=== PATIENT | female | born 1945 | race Caucasian/White ===

== ENCOUNTER 2023-02-14 00:08 | Observation (INO) | payer MEDICARE, OTHER, SELFPAY ==
[2023-02-14] VITALS (87 sets, daily range): BP systolic 119–146; BP diastolic 72–98; PULSE 88–113; RESP 7–37; TEMP 36.4–36.9; O2SAT 20–100; BMI 29.6; BMI 30.3
--- NOTE | 2023-02-14 00:32 | ECG_ITS ---
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
--- NOTE | 2023-02-14 00:33 | CT_ITS ---
The [address] [address] Patient Name: WILBER ELIAS MRN: [id number] date: 1945 Sex: F Assigned Patient Location: ER Current Patient Location: ER Accession/Order Number: [id number] Exam Date: 02/14/2023 01:10 Report Date: 02/14/2023 05:11 At the request of: MANDY STARR Procedure: CT angio chest EXAM: CT angio chest HISTORY: pe r/o . Chest pressure and dyspnea for several days. Pressure has worsened. COMPARISON: None. TECHNIQUE: IV contrast enhanced CTA imaging the chest was performed using 100 mL of Omnipaque 350 intravenous contrast. FINDINGS: There is excellent enhancement of the pulmonary arteries. No acute pulmonary embolism is seen. The heart is mildly enlarged. Coronary arterial calcifications are noted. There is no pericardial effusion. Pulsation artifact degrades ascending aorta. Prominent atherosclerotic calcifications are noted. The thoracic aorta and arch vessels are otherwise unremarkable. No dissection or aneurysm is seen. The thyroid gland appears normal. No thoracic adenopathy is appreciated. Fairly small layering bilateral pleural effusions are noted, right mildly larger than left. Patchy ground-glass opacities are scattered throughout all lobes of both lungs with some underlying interstitial thickening. Right upper pole renal cortical cyst is noted. The upper abdomen is otherwise unremarkable. A mild thoracic dextro scoliosis is noted. No acute osseous abnormality or suspicious bony lesion is seen. CT/CT angio chest IMPRESSION: 1. No acute pulmonary embolism or aortic dissection. 2. Nonspecific multifocal patchy ground-glass opacities with some underlying increased interstitial markings scattered in all lobes of both lungs, nonspecific. These are nonspecific, and can be seen in numerous disease processes, including, but not limited to hypersensitivity pneumonitis, infectious pneumonitis, respiratory bronchiolitis, nonspecific interstitial pneumonia, drug toxicity, pulmonary edema, hemorrhage, and ARDS. Associated small layering bilateral pleural effusions are noted. No other acute findings are seen in the chest. Electronically authenticated by: KODAK REYES Date: 02/14/2023 05:11
[2023-02-14 00:42] LABS: Basophils Absolute Auto 0.1 10^3/uL (0.0-0.1); Eosinophils Absolute Auto 0.6 10^3/uL (0.0-0.7); Eosinophils Percent Auto 6.4 % (0.9-7.0); Hematocrit 39.1 % (36.0-48.0); Hemoglobin 12.5 g/dL (12.0-16.0); Immature Granulocytes Abs Auto 0.02 10^3/uL (0.00-0.03); Immature Granulocytes Pct Auto 0.2 % (0.0-0.5); Lymphocytes Absolute Auto 3.2 10^3/uL (1.2-3.8); Lymphocytes Percent Auto 32.3 % (20.5-60.0); Mean Corpuscular Hemoglobin 28.1 pg (26.7-34.0); Mean Corpuscular Volume 87.9 fL (81.0-99.0); Mean Platelet Volume 10.3 fL (9.5-13.5); Monocytes Absolute Auto 0.7 10^3/uL (0.3-0.8); Neutrophils Absolute Auto 5.2 10^3/uL (1.4-6.5); Neutrophils Percent Auto 53.1 % (43.0-75.0); Platelet Count 197 10^3/uL (150-450); Red Blood Count 4.45 10^6/uL (4.20-5.40); White Blood Count 9.8 10^3/uL (4.0-11.0)
[2023-02-14 00:57] LABS: INR 1.04; Partial Thromboplastin Time 27.9 sec (22.3-36.2)
[2023-02-14 00:58] LABS: Alanine Aminotransferase <6 U/L (14-59); Albumin Globulin Ratio 0.9; Albumin Level 3.4 g/dL (3.4-5.0); Alkaline Phosphatase 120 U/L (46-116); Anion Gap 9.3; Aspartate Amino Transferase 15 U/L (15-37); BUN Creatinine Ratio 19.4; Bilirubin Total 1.2 mg/dL (0.2-1.0); Carbon Dioxide 28.1 mmol/L (21.0-32.0); Chloride 101 mmol/L (98-107); Estimated GFR (African America >60 (>=60); Estimated GFR (Non-African Ame 52 (>=60); Globulin 3.9 g/dL; Glucose 141 mg/dL (74-106); Potassium 3.4 mmol/L (3.5-5.1); Sodium 135 mmol/L (136-145); Total Protein 7.3 g/dL (6.4-8.2); Troponin I High Sensitivity 15.8 pg/mL (4.0-51.3)
[2023-02-14] MEDS: DIPHENHYDRAMINE HCL 50 MG/ML (1ML) VIAL IV (01:06)
[2023-02-14] MEDS: METHYLPREDNISOLONE SOD SUCC PF 125 MG/2 ML VIAL IVP (01:06)
[2023-02-14] MEDS: FUROSEMIDE 40 MG/4 ML VIAL IVP ×3 (02:17→17:10)
--- NOTE | 2023-02-14 02:20 | RESP.RT ---
Pt on 5-6 liter nasal cannula and Sp02 88%, Placed pt on Vapotherm 35L Fi02 50% and Sp02 inreased to 94%.
--- NOTE | 2023-02-14 04:19 | RESP.RT ---
Pt complaining the flow is too much, decreased flow down to 30L
[2023-02-14 05:20] LABS: Troponin I High Sensitivity 16.2 pg/mL (4.0-51.3)
--- NOTE | 2023-02-14 06:17 | ED_ITS ---
HPI - General Adult General Chief complaint: Shortness of Breath/Dyspnea Stated complaint: CHEST PAIN Time Seen by Provider: 02/14/23 00:32 Source: patient Mode of arrival: walk-in Limitations: no limitations History of Present Illness HPI narrative: 77-year-old female emergency department today complaining of shortness of breath. He has had increased shortness of breath over the last few days. Started out as orthopnea and is now progressed to constant shortness of breath. She denies any fever, sweats, chills. She denies any cough. She denies any increased leg swelling. She reports some mild pressure-like chest discomfort over the last forty-eight hours. She denies any history of chronic obstructive pulmonary disease or asthma. She does have a history of congestive heart failure. Related Data Home Medications Medication Instructions Recorded Confirmed allopurinol 100 mg tablet 100 mg PO DAILY 02/14/23 02/14/23 aspirin 81 mg tablet,delayed 81 mg PO DAILY 02/14/23 02/14/23 release carvedilol 25 mg tablet 25 mg PO BID 02/14/23 02/14/23 furosemide 20 mg tablet 20 mg PO BID 02/14/23 02/14/23 insulin detemir U-100 100 unit/mL 28 unit subcut DAILY 02/14/23 02/14/23 subcutaneous solution (Levemir U-100 Insulin) magnesium oxide 400 mg PO BID 02/14/23 02/14/23 rosuvastatin 40 mg tablet 40 mg PO DAILY 02/14/23 02/14/23 semaglutide 1 mg/dose (2 mg/1.5 1 mg subcut QWEEK 02/14/23 02/14/23 mL) subcutaneous pen injector Allergies Allergy/AdvReac Type Severity Reaction Status Date / Time Penicillins Allergy Intermediate Verified 02/14/23 00:26 iv dye Allergy Intermediate Uncoded 02/14/23 00:26 Review of Systems ROS Status of ROS 10 or more systems reviewed and unremarkable except as noted in history and below Exam Narrative Exam Narrative: VITALS: I have reviewed the triage vital signs. GENERAL: Well developed, well appearing adult in no acute distress. NEURO: Alert and oriented. Moves all extremities. Face is symmetric and expressive. EYES: PERRL. No scleral icterus or conjunctival injection. No discharge. HENT: Normocephalic, atraumatic. Hearing is grossly intact. Nares grossly patent and without discharge. Mucous membranes moist. NECK: No JVD. Patient moves neck without restriction. CARDIO: Rhythm regular. Normal rate. No murmur, rub, or gallop. Pulses equal bilaterally in the upper and lower extremity. No lower extremity edema. PULM: Rales at the bases. Mild conversational dyspnea. Mild work of breathing. GI/: Abdomen is soft and non-tender. Normoactive bowel sounds. EXTREMITIES: Symmetric muscle bulk. No joint swelling. No clubbing, cyanosis, or deformity. SKIN: Warm and dry. Normal turgor. No rash or lesions appreciated. PSYCH: Mood, affect, and interaction is appropriate to the setting. Constitutional Vital Signs, click to edit/add: Last Vital Signs Temp 98.4 F 02/14/23 00:20 Pulse 94 H 02/14/23 05:42 Resp 20 02/14/23 05:42 BP 126/79 02/14/23 05:47 Pulse Ox 20 L 02/14/23 05:42 O2 Del Method Vapotherm 02/14/23 05:42 O2 Flow Rate 35 02/14/23 04:19 FiO2 50 02/14/23 04:19 Course Vital Signs Vital signs: Vital Signs Temperature 98.4 F 02/14/23 00:20 Pulse Rate 104 H 02/14/23 00:20 Respiratory Rate 24 02/14/23 00:20 Blood Pressure 138/90 02/14/23 00:20 Pulse Oximetry 91 L 02/14/23 00:20 Oxygen Delivery Method Room Air 02/14/23 00:20 Temperature 98.4 F 02/14/23 00:20 Pulse Rate 94 H 02/14/23 05:42 Respiratory Rate 20 02/14/23 05:42 Blood Pressure 126/79 02/14/23 05:47 Pulse Oximetry 20 L 02/14/23 05:42 Oxygen Delivery Method Vapotherm 02/14/23 05:42 Oxygen Delivery Flow Rate 35 02/14/23 04:19 Fraction of Inspired Oxygen 50 02/14/23 04:19 Medical Decision Making MDM Narrative Medical decision making narrative: 77-year-old female to the emergency department she developed shortness of breath. History and exam suggest congestive heart failure exacerbation. She is hypoxic on room air and placed on nasal cannula, 5 L. She has no baseline oxygen requirement. Given her tachycardia, chest pain, shortness of breath a CT PE study will be ordered. He does have a history of a mild reaction to contrast therefore pretreatment is ordered. Patient agrees with this plan. Laboratory data noted. She does have an elevated BNP. Her troponin is negative ?2. CTA shows pulmonary edema, no other acute findings. Patient did need to be escalated from nasal cannula. She was given Lasix x2. Patient will be admitted to the hospital for further care. Case discussed with the hospitalist. Medical Records Medical records reviewed: Yes I reviewed the patient's medical records Lab Data Lab results reviewed: Yes I reviewed the patient's lab results Labs: Lab Results 02/14/23 02/14/23 Range/Units 00:35 04:55 WBC 9.8 (4.0-11.0) 10^3/uL RBC 4.45 (4.20-5.40) 10^6/uL Hgb 12.5 (12.0-16.0) g/dL Hct 39.1 (36.0-48.0) % MCV 87.9 (81.0-99.0) fL MCH 28.1 (26.7-34.0) pg MCHC 32.0 (29.9-35.2) g/dL RDW 16.0 H (11.0-15.0) % Plt Count 197 (150-450) 10^3/uL MPV 10.3 (9.5-13.5) fL Neut % (Auto) 53.1 (43.0-75.0) % Lymph % (Auto) 32.3 (20.5-60.0) % [place] % (Auto) 7.0 (1.7-12.0) % Eos % (Auto) 6.4 (0.9-7.0) % Baso % (Auto) 1.0 (0.2-2.0) % Neut # (Auto) 5.2 (1.4-6.5) 10^3/uL Lymph # (Auto) 3.2 (1.2-3.8) 10^3/uL [place] # (Auto) 0.7 (0.3-0.8) 10^3/uL Eos # (Auto) 0.6 (0.0-0.7) 10^3/uL Baso # (Auto) 0.1 (0.0-0.1) 10^3/uL Abs Immat Gran (auto) 0.02 (0.00-0.03) 10^3/uL Imm/Tot Granulo (auto) 0.2 (0.0-0.5) % PT 11.0 (9.0-11.6) sec INR 1.04 APTT 27.9 (22.3-36.2) sec Sodium 135 L (136-145) mmol/L Potassium 3.4 L (3.5-5.1) mmol/L Chloride 101 (98-107) mmol/L Carbon Dioxide 28.1 (21.0-32.0) mmol/L Anion Gap 9.3 BUN 20.0 H (7.0-18.0) mg/dL Creatinine 1.03 H (0.55-1.02) mg/dL Est GFR ( Amer) >60 (>=60) Est GFR (Non-Af Amer) 52 L (>=60) BUN/Creatinine Ratio 19.4 Glucose 141 H (74-106) mg/dL Calcium 9.0 (8.5-10.1) mg/dL Total Bilirubin 1.2 H (0.2-1.0) mg/dL AST 15 (15-37) U/L ALT <6 L (14-59) U/L Alkaline Phosphatase 120 H (46-116) U/L Troponin I High Sens 15.8 16.2 (4.0-51.3) pg/mL NT-Pro-B Natriuret Pep 1695.0 (<=1800.0) pg/mL Total Protein 7.3 (6.4-8.2) g/dL Albumin 3.4 (3.4-5.0) g/dL Globulin 3.9 g/dL Albumin/Globulin Ratio 0.9 ECG Data Attestation: I personally reviewed and interpreted this ECG as follows: (Normal sinus rhythm at a rate of ninety-nine. Right bundle branch block. No STEMI. Mildly prolonged QTC. ) Critical Care Time Critical Care Time Critical Care Time: Yes Total Critical Care Time: 35 Attestation: Critical Care Procedure Note Authorized and Performed by: Immanuel Summers DO Total critical care time: 35 min Due to a high probability of clinically significant, life threatening deterioration, the patient required my highest level of preparedness to intervene emergently and I personally spent this critical care time directly and personally managing the patient. This critical care time included obtaining a history; examining the patient; pulse oximetry; ordering and review of studies; arranging urgent treatment with development of a management plan; evaluation of patient's response to treatment; frequent reassessment; and, discussions with other providers. This critical care time was performed to assess and manage the high probability of imminent, life-threatening deterioration that could result in multi-organ failure. It was exclusive of separately billable procedures and treating other patients and teaching time. Please see MDM section and the rest of the note for further information on patient assessment and treatment. Discharge Plan Discharge Chief Complaint: Shortness of Breath/Dyspnea Clinical Impression: Acute exacerbation of CHF (congestive heart failure), Acute hypoxemic respiratory failure Patient Disposition: Admitted As Inpatient Prescriptions / Home Meds: No Action carvedilol 25 mg tablet 25 mg PO BID Rx Instructions: must administer with a meal/food furosemide 20 mg tablet 20 mg PO BID magnesium oxide 400 mg magnesium capsule 400 mg PO BID allopurinol 100 mg tablet 100 mg PO DAILY aspirin 81 mg tablet,delayed release (DR/EC) 81 mg PO DAILY rosuvastatin 40 mg tablet 40 mg PO DAILY Levemir U-100 Insulin 100 unit/mL solution 28 unit subcut DAILY semaglutide 1 mg/dose (2 mg/1.5 mL) pen injector 1 mg subcut QWEEK Rx Instructions: Due Wednesday morning Referrals: Aure Little NP [Primary Care Provider] - 1 week
--- NOTE | 2023-02-14 07:10 | RESP.RT ---
Patient transported to ICU on 5 LPM NC; SpO2 maintained in mid 90's. Vapotherm on standby
[2023-02-14 08:09] LABS: Glucometer 267 mg/dL (74-106)
[2023-02-14] MEDS: CARVEDILOL 25 MG TABLET PO ×2 (08:11→20:38)
[2023-02-14] MEDS: ENOXAPARIN SODIUM 40 MG/0.4 ML SYRINGE SUBQ (08:12)
[2023-02-14] MEDS: ALLOPURINOL 100 MG TABLET PO (08:12)
[2023-02-14] MEDS: POTASSIUM CHLORIDE 10 MEQ ER TABLET 40 MEQ PO (08:12)
[2023-02-14] MEDS: MAGNESIUM OXIDE 400 MG TABLET PO ×2 (08:12→20:38)
[2023-02-14] MEDS: INSULIN ASPART 300 UNIT/3 ML PEN SUBQ ×4 (08:35→20:39)
--- NOTE | 2023-02-14 10:58 | P.HP_ITS ---
H&P: HPI History of Present Illness Chief complaint: chest pain and shortness of breath Narrative: 77 y o f presents with chest tightness x 7 days, along with fatigue and SOB that started yesterday. She was hypoxic in ED and her w/u was c/w volume overload sec to acute on chronic congestive heart failure. Patient was given IV lasix and admitted for observation and further clinical care. She is currently on 2 L O2 via NC. Reports feeling better but still tired. No other complaints to offer. Review of Systems ROS Status of ROS 10 or more systems reviewed and unremarkable except as noted in history and below [facility] Medical History (Updated 02/14/23 @ 11:32 by Shaikh Janelle MD) Acute exacerbation of CHF (congestive heart failure) ?I50.9 - Heart failure, unspecified (ICD-10) HLD (hyperlipidemia) ?E78.5 - Hyperlipidemia, unspecified (ICD-10) Type 2 diabetes mellitus ?E11.9 - Type 2 diabetes mellitus without complications (ICD-10) Surgical History (Updated 02/14/23 @ 07:13 by Brittni Odell RN) H/O: hysterectomy ?Z90.710 - Acquired absence of both cervix and uterus (ICD-10) S/P femoral-femoral bypass surgery ?Z95.828 - Presence of other vascular implants and grafts (ICD-10) Social History (Updated 02/14/23 @ 07:17 by Brittni Odell, MYA) Within the past year, how often did you have a drink containing alcohol: monthly or less Within the past year, how many standard drinks containing alcohol did you have on a typical day: 1 or 2 Within the past year, how often did you have six or more drinks on one occasion: never Total score: 0 Score interpretation: A score less than 3 is consistent with normal alcohol consumption. Smoking status: Former smoker Second hand tobacco smoke exposure: Yes Non-prescribed substance use: denies use Are you now , , , , never or living with a partner: In a typical week, how many times do you talk on the telephone with family, friends, or neighbors: 3 or more times per week How often do you get together with friends or relatives: 3 or more times per week How often do you attend judaism or orthodoxy services: 4 or more times per year Do you belong to any clubs or organizations such as judaism groups unions, fraternal or athletic groups, or school groups: yes Total score: 4 Score interpretation: A score of greater than or equal to 2 indicates the lowest level of social isolation. 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, difficulty making decisions: No Do you think of yourself as: straight/heterosexual Gender Identity: female Meds Home Medications and Allergies Home Medications Medication Instructions Recorded Confirmed Type allopurinol 100 mg tablet 100 mg PO DAILY 02/14/23 02/14/23 History aspirin 81 mg tablet,delayed 81 mg PO BEDTIME 02/14/23 02/14/23 History release carvedilol 25 mg tablet 25 mg PO BID 02/14/23 02/14/23 History furosemide 20 mg tablet 20 mg PO BID 02/14/23 02/14/23 History insulin detemir U-100 100 unit/mL 28 unit subcut BEDTIME 02/14/23 02/14/23 History subcutaneous solution (Levemir U-100 Insulin) magnesium oxide 400 mg PO BID 02/14/23 02/14/23 History rosuvastatin 40 mg tablet 40 mg PO DAILY 02/14/23 02/14/23 History semaglutide 1 mg/dose (2 mg/1.5 1 mg subcut QWEEK 02/14/23 02/14/23 History mL) subcutaneous pen injector Allergies Allergy/AdvReac Type Severity Reaction Status Date / Time Penicillins Allergy Intermediate Verified 02/14/23 00:26 iv dye Allergy Intermediate Uncoded 02/14/23 00:26 Exam Constitutional Vital Signs, click to edit/add: Last Vital Signs Temp 97.6 F 02/14/23 07:07 Pulse 91 H 02/14/23 07:10 Resp 19 02/14/23 07:10 BP 144/78 H 02/14/23 07:07 Pulse Ox 95 02/14/23 09:29 O2 Del Method Nasal Cannula 02/14/23 09:29 O2 Flow Rate 4 02/14/23 09:29 FiO2 50 02/14/23 04:19 Documenting provider has reviewed patient's vital signs: yes Common normals: no apparent distress and oriented x3 General appearance: cooperative Nutritional appearance: obese HENMT Common normals: normocephalic and head/scalp atraumatic Head and scalp: normocephalic and atraumatic Eye Common normals: conjunctivae normal and no scleral icterus Conjunctiva: conjunctiva(e) normal Respiratory Common normals: normal respiratory effort Effort & inspection: able to speak in complete sentences Auscultation: rales bilateral in the lower lung uribe Cardio Common normals: regular rate, S1 normal heart sound and S2 normal heart sound Rate: regular rate Heart sounds: S1 normal and S2 normal GI Common normals: Normal to inspection, nondistended, normoactive bowel sounds present, soft to palpation, non-tender and no hepatosplenomegaly Palpation: soft and no hepatosplenomegaly Extremity Common normals: no clubbing, cyanosis or edema Neuro Common normals: oriented x3, moves all extremities and no focal motor deficits Psych Common normals: mental status grossly normal, denies hallucinations, denies homicidal ideation and denies suicidal ideation Results Labs Labs: Short CBC 02/14/23 Range/Units 00:35 WBC 9.8 (4.0-11.0) 10^3/uL Hgb 12.5 (12.0-16.0) g/dL Hct 39.1 (36.0-48.0) % Plt Count 197 (150-450) 10^3/uL BMP 02/14/23 00:35 Sodium 135 L Potassium 3.4 L Chloride 101 Carbon Dioxide 28.1 BUN 20.0 H Creatinine 1.03 H Glucose 141 H Calcium 9.0 Liver Function 02/14/23 Range/Units 00:35 Total Bilirubin 1.2 H (0.2-1.0) mg/dL AST 15 (15-37) U/L ALT <6 L (14-59) U/L Alkaline Phosphatase 120 H (46-116) U/L Albumin 3.4 (3.4-5.0) g/dL Assessment and Plan Assessment and Plan (1) Acute on chronic systolic (congestive) heart failure: Assessment and Plan: Acute on chronic systolic HF. Last 2D ECHO 10/02 - borderline low EF. On lasix as outpatient. Presented with hypoxia with pulse Ox in 80%. Doing better. Still hypoxic though. C/w IV lasix 40 q12. Monitor weight, strict I/Os. Repeat 2D ECHO. No PE on CTA. (2) Acute hypoxemic respiratory failure: Assessment and Plan: Due to acute on chronic systolic HF. Wean off O2 as tolerated. C/w diuresis (3) Type 2 diabetes mellitus: Assessment and Plan: C/w lantus and SSI. 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 Plan Needs 2D ECHO, IV diuresis, monitoring for hypoxic resp failure.
[2023-02-14 13:00] LABS: Glucometer 244 mg/dL (74-106)
[2023-02-14 17:11] LABS: Glucometer 268 mg/dL (74-106)
[2023-02-14 20:31] LABS: Glucometer 247 mg/dL (74-106)
[2023-02-14] MEDS: INSULIN DETEMIR 300 UNIT/3 ML INSULN.PEN 28 UNIT SUBQ (20:38)
[2023-02-14] MEDS: ASPIRIN 81 MG TABLET.DR PO (20:38)
--- NOTE | 2023-02-14 21:59 | PC.NURSE ---
Table Assembler called into patient's room. Upon entry patient starts yelling at job specification writer in reguards of missing medication. Table Assembler previously stated all medication has to be locked up in medication drawer per policy. Patient states that was never said. Table Assembler tried to apologize but patient wanted nothing to do with that. Table Assembler tried to show patient where the medication was located in her room, but refused to look.
--- NOTE | 2023-02-14 22:40 | PC.NURSE ---
Patient upset that her medications in a med minder were locked up per protocol. She became very upset and demanded her home meds be unlocked and placed in her medication bag. She states that she will not take any medication and will send home with her . She verbalized understanding and states will take responsibility for said medications.
[2023-02-15] VITALS (15 sets, daily range): BP systolic 109–123; BP diastolic 72–75; PULSE 78–102; RESP 18; TEMP 36.4–36.8; O2SAT 91–94
[2023-02-15 05:29] LABS: Basophils Percent Auto 0.1 % (0.2-2.0); Hemoglobin 11.7 g/dL (12.0-16.0); Immature Granulocytes Abs Auto 0.07 10^3/uL (0.00-0.03); Immature Granulocytes Pct Auto 0.5 % (0.0-0.5); Lymphocytes Absolute Auto 2.1 10^3/uL (1.2-3.8); Lymphocytes Percent Auto 13.3 % (20.5-60.0); Mean Corpuscular HGB Conc 32.5 g/dL (29.9-35.2); Mean Corpuscular Hemoglobin 28.7 pg (26.7-34.0); Mean Corpuscular Volume 88.5 fL (81.0-99.0); Mean Platelet Volume 10.5 fL (9.5-13.5); Monocytes Absolute Auto 0.7 10^3/uL (0.3-0.8); Monocytes Percent Auto 4.5 % (1.7-12.0); Neutrophils Absolute Auto 12.6 10^3/uL (1.4-6.5); Neutrophils Percent Auto 81.6 % (43.0-75.0); Platelet Count 187 10^3/uL (150-450); Red Blood Count 4.07 10^6/uL (4.20-5.40); Red Cell Distribution Width 15.9 % (11.0-15.0); White Blood Count 15.4 10^3/uL (4.0-11.0)
[2023-02-15 05:49] LABS: Alanine Aminotransferase 15 U/L (14-59); Albumin Globulin Ratio 0.9; Albumin Level 3.4 g/dL (3.4-5.0); Alkaline Phosphatase 104 U/L (46-116); Anion Gap 10.2; Aspartate Amino Transferase 15 U/L (15-37); BUN Creatinine Ratio 23.7; Calcium 8.7 mg/dL (8.5-10.1); Carbon Dioxide 26.5 mmol/L (21.0-32.0); Chloride 100 mmol/L (98-107); Estimated GFR (African America 56 (>=60); Estimated GFR (Non-African Ame 46 (>=60); Globulin 3.7 g/dL; Glucose 176 mg/dL (74-106); Potassium 3.7 mmol/L (3.5-5.1); Sodium 133 mmol/L (136-145); Total Protein 7.1 g/dL (6.4-8.2)
[2023-02-15] MEDS: FUROSEMIDE 40 MG/4 ML VIAL IVP (06:42)
[2023-02-15 07:21] LABS: SARS-CoV-2 Ag NEGATIVE (NEGATIVE)
[2023-02-15 07:52] LABS: Glucometer 185 mg/dL (74-106)
[2023-02-15] MEDS: INSULIN ASPART 300 UNIT/3 ML PEN SUBQ ×2 (07:55→11:28)
[2023-02-15] MEDS: MAGNESIUM OXIDE 400 MG TABLET PO (08:52)
[2023-02-15] MEDS: ALLOPURINOL 100 MG TABLET PO (08:52)
[2023-02-15] MEDS: CARVEDILOL 25 MG TABLET PO (08:52)
[2023-02-15] MEDS: ENOXAPARIN SODIUM 40 MG/0.4 ML SYRINGE SUBQ (08:52)
--- NOTE | 2023-02-15 09:30 | PC.NURSE ---
0730 Went into room with other nurse to get pts home medications to verify with pharmacy so pt could take her home insulin. Pt was very argumentative saying her meds were taken from her the night before and she is not giving them to us she needs to know where they at aall times and she is going to take her meds like she did with or without our order in. Educated pt that we want to ensure pt safety and to do that we need to make sure the pt is not getting double the medications. Pt also said she isn't going to take any home meds either contradicting her previous saying she would take them. pt did seem to have some confusion at times. Pt reluctantly agreed allowing pharmacy to verify meds ands agreed to them being locked in the med drawer. Pt
--- NOTE | 2023-02-15 10:27 | CA_ITS ---
Patient: WILBER ELIAS Exam Date: 02/15/2023 : 1945 Gender:F Ordering : SHAIKH Dina GIBSON . Admission #: [id number] Family : Order #: [id number] CLICK HERE TO VIEW EXAM ECHOCARDIOGRAM REPORT PROCEDURE: CA ECHO DOPPLER COMPLETE INDICATIONS: Congestive HF COMPARISON: None. DESCRIPTION: COMPLETE ECHOCARDIOGRAM Real-time transthoracic echocardiography with 2D, M-mode, spectral and color flow Doppler performed. QUALITY: Technical quality was good. LEFT VENTRICLE: Moderate dilatation. Borderline left ventricular hypertrophy. Calculated left ventricular ejection fraction is 20%. LV EF: Global left ventricular systolic function is difficult to assess but appears severely reduced; visually estimated ejection fraction is 15 to 20%. Unable to assess regional wall motion abnormality; consider contrast study for better delineation of endocardial borders. DIASTOLIC: Grade 2, moderate diastolic dysfunction. ATRIAL SEPTUM: Inadequately seen. LEFT ATRIUM: Mild dilatation. RIGHT ATRIUM: Normal chamber size. RIGHT VENTRICLE: Normal chamber size. Normal right ventricular systolic function. TRICUSPID VALVE: Normal mobility and thickness. No stenosis with trivial regurgitation. Unable to assess right-sided pressures due to lack of measurable tricuspid regurgitation. MITRAL VALVE: No evidence of mitral valve stenosis. There is no mitral annular calcification. Moderate to severe mitral regurgitation. AORTIC VALVE: Normal trileaflet appearance. No visible sclerosis. Normal leaflet mobility. No evidence of aortic valve stenosis. No aortic regurgitation. AORTIC ROOT: Normal diameter and appearance. PULMONIC VALVE: Not well visualized. No stenosis. No regurgitation. PERICARDIUM: Trivial pericardial effusion. IVC: IVC is dilated (2.3 cm) with no collapse. CONCLUSION: 1. Global left ventricular systolic function is difficult to assess but appears to be reduced; visually estimated ejection fraction is 15 to 20% 2. The right ventricle is normal in size and systolic function 3. Grade 2, moderate diastolic dysfunction 4. The left atrium is mildly dilated 5. Moderate to severe mitral regurgitation 6. Trivial pericardial effusion Adult Echocardiography Procedure Report Left Ventricle LVEDD (3.7 - 5.6 cm): 5.90 cm LVESD (2.2 - 4.0 cm): 4.90 cm LVIVS thickness (0.6 - 1.2 cm): 1.01 cm LVPW thickness (0.5 - 1.0 cm): 1.09 cm e': 0.12 m/s E - e': 11.00 LVOT Max Gradient: 1.77 mm[Hg] LVOT Area (cm2): 0.67 m/s Peak Velocity (LVOT): 0.67 m/s LVOT Diameter 2.09 cm Left Atrium LA Volume Index (2D A2C): 39.89 ml/m2 Left Atrium Systolic Dimension: 4.29 cm Mitral Valve MV E to A Ratio: 1.25 Mitral Valve A-Wave Peak Velocity: 1.08 m/s Mitral Valve E-Wave Peak Velocity: 1.36 m/s Right Ventricle Aorta AO Root Diam: 2.79 cm Ascending Ao Diam: 2.85 cm Aortic Valve AoV Area (Peak [place]t): 2.19 cm2, 2.19 cm2 Peak Velocity(Antegrade Flow): 1.04 m/s Peak Gradient(Antegrade Flow): 4.36 mm[Hg] Tricuspid Valve Pulmonic Valve Peak Velocity: 0.40 m/s Peak Gradient: 0.63 mm[Hg] Right Atrium Right Atrium Systolic Pressure: 30.36 ml, 30.36 ml Dictated by: Trent Arias M.D. on 02/15/2023 at 15:26 Approved by: Trent Arias M.D. on 02/15/2023 at 15:29
--- NOTE | 2023-02-15 10:27 | PM.DS1 ---
DS: Providers Provider Date of admission: 02/14/23 06:50 Primary care physician: Aure Little Attending physician on discharge: Shaikh Janelle Discharging clinician: Shaikh Janelle Anticipated date of discharge: 02/15/23 DS: Diagnosis Discharge Diagnosis (1) Acute on chronic systolic (congestive) heart failure: Assessment and plan: More or less euvolemic. C/w home dose of lasix as outpatient. (2) Acute hypoxemic respiratory failure: Assessment and plan: On RA now. Resp failure sec to acute on chronic systolic HF. (3) Type 2 diabetes mellitus: Assessment and plan: c/w home regimen. Poorly controlled. Defer to PCP. Qualifiers: Diabetes mellitus complication status: without complication Diabetes mellitus technician terminal and repeater insulin use: with penitentiary use Qualified Code(s): E11.9 - Type 2 diabetes mellitus without complications; Z79.4 - detention (current) use of insulin (4) HLD (hyperlipidemia): Assessment and plan: c/w statin Qualifiers: Hyperlipidemia type: mixed hyperlipidemia Qualified Code(s): E78.2 - Mixed hyperlipidemia (5) Hypokalemia: Assessment and plan: Stable now. (6) Leukocytosis: Assessment and plan: suspect reactive due to steroid use. Repeat in one week before f/u with PCP DS: Summary Hospital Course Hospital Course: Patient presented with weakness, fatigue, SOB - found to have acute resp failure with hypoxia sec to acute on chronic systolic HF. Symptoms were present for one week. She was started on IV lasix with improvement in her clinical symptoms. Patient's hypoxia improved and she was comfortable on RA on day of discharge. 2D ECHO ordered to assess cardiac structure that indicated Status at Discharge Functional status at discharge: independent ambulation Overall status at discharge: patient is back to baseline Time Spent with Patient Time attestation: Total time spent providing and/or coordinating discharge services: Time spent: greater than 30 minutes Exam Constitutional Vital Signs, click to edit/add: Last Vital Signs Temp 98.2 F 02/15/23 05:59 Pulse 94 H 02/15/23 10:18 Resp 18 02/15/23 05:59 BP 123/72 02/15/23 06:42 Pulse Ox 91 L 02/15/23 10:16 O2 Del Method Room Air 02/15/23 10:16 O2 Flow Rate 2 02/15/23 10:15 FiO2 50 02/14/23 04:19 Documenting provider has reviewed patient's vital signs: yes Common normals: no apparent distress and oriented x3 General appearance: cooperative Nutritional appearance: obese Respiratory Common normals: normal respiratory effort Effort & inspection: able to speak in complete sentences Auscultation: rales bilateral in the lower lung uribe Cardio Common normals: regular rate, S1 normal heart sound and S2 normal heart sound Rate: regular rate Heart sounds: S1 normal and S2 normal Extremity Common normals: no clubbing, cyanosis or edema Neuro Common normals: oriented x3, moves all extremities and no focal motor deficits Psych Common normals: mental status grossly normal, denies hallucinations, denies homicidal ideation and denies suicidal ideation DS: Data Data Completed and Pending Labs on day of discharge: Labs from last 24 hours 02/15/23 02/15/23 02/15/23 07:51 06:48 05:18 WBC 15.4 H RBC 4.07 L Hgb 11.7 L Hct 36.0 MCV 88.5 MCH 28.7 MCHC 32.5 RDW 15.9 H Plt Count 187 MPV 10.5 Neut % (Auto) 81.6 H Lymph % (Auto) 13.3 L [place] % (Auto) 4.5 Eos % (Auto) 0.0 L Baso % (Auto) 0.1 L Neut # (Auto) 12.6 H Lymph # (Auto) 2.1 [place] # (Auto) 0.7 Eos # (Auto) 0.0 Baso # (Auto) 0.0 Abs Immat Gran (auto) 0.07 H Imm/Tot Granulo (auto) 0.5 Sodium 133 L Potassium 3.7 Chloride 100 Carbon Dioxide 26.5 Anion Gap 10.2 BUN 27.0 H Creatinine 1.14 H Est GFR ( Amer) 56 L Est GFR (Non-Af Amer) 46 L BUN/Creatinine Ratio 23.7 Glucose 176 H Calcium 8.7 Total Bilirubin 1.0 AST 15 ALT 15 Alkaline Phosphatase 104 Total Protein 7.1 Albumin 3.4 Globulin 3.7 Albumin/Globulin Ratio 0.9 SARS-CoV-2 (PCR) Negative POC Glucose 185 H 02/14/23 02/14/23 02/14/23 20:30 17:10 13:59 WBC RBC Hgb Hct MCV MCH MCHC RDW Plt Count MPV Neut % (Auto) Lymph % (Auto) [place] % (Auto) Eos % (Auto) Baso % (Auto) Neut # (Auto) Lymph # (Auto) [place] # (Auto) Eos # (Auto) Baso # (Auto) Abs Immat Gran (auto) Imm/Tot Granulo (auto) Sodium Potassium Chloride Carbon Dioxide Anion Gap BUN Creatinine Est GFR ( Amer) Est GFR (Non-Af Amer) BUN/Creatinine Ratio Glucose Calcium Total Bilirubin AST ALT Alkaline Phosphatase Total Protein Albumin Globulin Albumin/Globulin Ratio SARS-CoV-2 (PCR) POC Glucose 247 H 268 H 244 H Discharge Plan Discharge Disposition: Home, Self-Care Discharge Medications: Continued carvedilol 25 mg tablet 25 mg PO BID Rx Instructions: must administer with a meal/food furosemide 20 mg tablet 20 mg PO BID Patient Comments: TAKING 1 TABLET TWICE DAILY magnesium oxide 400 mg magnesium capsule 400 mg PO BID allopurinol 100 mg tablet 100 mg PO DAILY aspirin 81 mg tablet,delayed release (DR/EC) 81 mg PO BEDTIME rosuvastatin 40 mg tablet 40 mg PO DAILY Levemir U-100 Insulin 100 unit/mL solution 28 unit subcut BEDTIME semaglutide 1 mg/dose (2 mg/1.5 mL) pen injector 1 mg subcut QWEEK Rx Instructions: Due Wednesday morning Activity: resume usual activities as tolerated Diet: advance to your usual diet Forms: Portal Instructions Follow Up Appointments: F/u with PCP in one week. Repeat CBC before f/u with PCP F/u with Cardiology in 2 weeks
[2023-02-15 11:17] LABS: Glucometer 167 mg/dL (74-106)
--- NOTE | 2023-02-15 11:52 | CM.NOTE ---
Rounds made with Dr. Luis. Oxygen weaned and Arleth states improved. Dr. Luis would like the Echocardiogram to be done and likely discharge later today. Arleth verbalizes understanding.
[2023-02-15 15:40] LABS: SARS-CoV-2 NAA NOT DETECTED (NOT DETECTE)
== END 2023-02-15 15:25 | disposition home or self-care (01) ==
LOC: ER 06:56 → ICU 10:59 → MS 02-15 07:50 → ICU 02-15 08:10 → MS 02-15 08:10
PROVIDERS: Admitting Provider Internal Medicine; Emergency Provider Student in an Organized Health Care Education/Training Program; PCP Nurse Practitioner; Visit Provider Internal Medicine
DX: I50.23 Acute on chronic systolic (congestive) heart failure (principal); J96.01 Acute respiratory failure with hypoxia; E11.9 Type 2 diabetes mellitus without complications; E78.2 Mixed hyperlipidemia; E87.6 Hypokalemia; D72.829 Elevated white blood cell count, unspecified; E66.9 Obesity, unspecified; Z68.30 Body mass index [BMI] 30.0-30.9, adult; Z79.82 Long term (current) use of aspirin; Z79.899 Other long term (current) drug therapy; Z79.4 Long term (current) use of insulin; Z90.710 Acquired absence of both cervix and uterus; Z95.828 Presence of other vascular implants and grafts; Z87.891 Personal history of nicotine dependence
CPT/HCPCS: 36415; 71275; 80053; 82948; 83690; 83880; 84484; 85025; 85610; 85730; 87635; 87811; 93005; 93306; 93356; 94761; 94799; 96372; 96374; 96375; 96376; 99285; G0378; J2930; Q9967

== ENCOUNTER 2023-11-17 13:50 | Emergency (ER) | payer MEDICARE, OTHER, SELFPAY ==
[2023-11-17] VITALS (10 sets, daily range): BP systolic 117–146; BP diastolic 71–90; PULSE 84–96; TEMP 36.4; O2SAT 97–100; BMI 24.0
--- NOTE | 2023-11-17 14:22 | CT_ITS ---
The [address] [address] Patient Name: WILBER ELIAS MRN: [id number] date: 1945 Sex: F Assigned Patient Location: ER Current Patient Location: ED.MAIN Accession/Order Number: [id number] Exam Date: 11/17/2023 15:44 Report Date: 11/17/2023 19:00 At the request of: ARJUN NIEVES Procedure: CT abdomen pelvis w con EXAM: CT SCAN ABDOMEN AND PELVIS WITH IV CONTRAST DATE: 11/17/2023 3:44 PM EDT HISTORY: abdominal pain 78-year-old female COMPARISON: None. TECHNIQUE: CT examination of the abdomen and pelvis was performed following the intravenous administration of IV contrast. CT dose lowering techniques were used, to include: automated exposure control, adjustment for patient size, and/or use of iterative reconstruction. Contrast: 100 ml Isovue 370 FINDINGS: Ammonia Refrigeration Technician/ Lines and Tubes: Ammonia Refrigeration Technician demonstrates a nonobstructive bowel gas pattern. Cardiac pacer wires demonstrated. Lower Chest: The heart is enlarged. Free Air: None. Liver: Normal Gallbladder: Removed Common Bile Duct: Prominent Pancreas: Normal Spleen: Normal Adrenal Glands: Right: Normal Left: Normal Kidneys: Right Kidney: Fluid attenuating upper pole cyst measures 15 mm. Right Ureter: Normal. Left Kidney: Normal. Left Ureter: Normal. GI Tract: Distal esophagus in FOV: Decompressed Stomach: Decompressed which limits evaluation Small Bowel: Normal Appendix: No secondary signs of acute appendicitis. Large Bowel: Diverticulosis. No CT evidence for acute diverticulitis.Mild prominence of the rectal wall greater than expected for lack of distention. Mesentery/Peritoneum: Normal Vasculature: Aorta: Vascular calcifications are present. IVC: Normal. Rey Vein: Normal. Retroperitoneum: Normal Abdominal/Pelvic Wall: Bifurcation bypass graft demonstrated. Bladder: Decompressed with a foci of air in the lumen. Reproductive: Normal Musculoskeletal: Normal Free Fluid: None. CT/CT abdomen pelvis w con IMPRESSION: 1. Diverticulosis without CT evidence for acute diverticulitis. 2. Moderate retention of stool in the cecum. 3. Nodular cirrhotic morphology liver. Please correlate with patient's medical history. 4. Cholecystectomy. 5. Right renal and left renal cysts. No further follow-up needed. 6. Severe atherosclerosis. 7. Bifemoral bypass graft, incompletely imaged 8. Mild prominence of the rectal wall greater than expected for lack of distention. Please correlate with patient's colonoscopy to exclude an infiltrative process. Electronically authenticated by: DELLA GREEN Date: 11/17/2023 19:00
[2023-11-17] MEDS: MORPHINE SULFATE 2 MG/ML SYRINGE IM (14:30)
[2023-11-17] MEDS: 0.9 % SODIUM CHLORIDE 1,000 ML 999 ML IV (14:30)
--- NOTE | 2023-11-17 14:30 | ED.GENADUL1 ---
HPI HPI - General Adult General Chief complaint: Abdominal Pain Stated complaint: LEFT SIDE PAIN Time Seen by Provider: 11/17/23 14:13 Source: patient Mode of arrival: walk-in Limitations: no limitations History of Present Illness HPI narrative: Patient presented to the emergency department for evaluation of 1 month of abdominal pain. Patient states that she is having left upper quadrant abdominal pain, left flank pain, left side pain for approximately 1 month. Patient states that nothing make the pain better or worse, it has been constant every day for the last 4 to 5 weeks. Went to her PCP approximately 3 3 weeks and, got 10 days of Cipro and Flagyl. She states she finished the course of it on , and the pain is still there. Patient states nothing makes the pain better or worse. Does not radiate anywhere, is moderate to severe in intensity, constant, burning. Denies urgency, frequency, vaginal bleeding or discharge, hematuria, nausea, vomiting, diarrhea, upper abdominal pain, chest pain. No other complaints at this time Related Data Home Medications ?Medication ?Instructions ?Recorded ?Confirmed allopurinol 100 mg tablet 100 mg PO DAILY 02/14/23 11/17/23 aspirin 81 mg tablet,delayed 81 mg PO BEDTIME 02/14/23 11/17/23 release furosemide 20 mg tablet 20 mg PO DAILY 02/14/23 11/17/23 magnesium oxide 400 mg PO BID 02/14/23 11/17/23 rosuvastatin 40 mg tablet 40 mg PO BEDTIME 02/14/23 11/17/23 semaglutide 1 mg/dose (2 mg/1.5 1 mg subcut QWEEK 02/14/23 11/17/23 mL) subcutaneous pen injector clopidogrel 75 mg tablet 75 mg PO DAILY 11/17/23 11/17/23 empagliflozin 10 mg tablet 10 mg PO DAILY 11/17/23 11/17/23 (Jardiance) metoprolol succinate 25 mg 50 mg PO Q12H 11/17/23 11/17/23 tablet,extended release 24 hr valsartan 40 mg tablet 20 mg PO DAILY 11/17/23 11/17/23 Allergies Allergy/AdvReac Type Severity Reaction Status Date / Time Penicillins Allergy Intermediate Verified 02/14/23 00:26 iv dye Allergy Intermediate Uncoded 02/14/23 00:26 Opioid HPI Opioid Management Most Recent Opioid Data: Last Pain Scale 6 11/17/23 15:06 Last ED Pain Assessment 11/17/23 15:06 Last MAR Pain Assessment 11/17/23 14:30 Review of Systems ROS Narrative Negative unless otherwise stated in the HPI [facility] Medical History (Updated 11/17/23 @ 18:55 by Richard Lyn MD) Leukocytosis ?D72.829 - Elevated white blood cell count, unspecified (ICD-10) HLD (hyperlipidemia) ?E78.5 - Hyperlipidemia, unspecified (ICD-10) Type 2 diabetes mellitus ?E11.9 - Type 2 diabetes mellitus without complications (ICD-10) Acute exacerbation of CHF (congestive heart failure) ?I50.9 - Heart failure, unspecified (ICD-10) Surgical History (Updated 02/14/23 @ 07:13 by Brittni Odell RN) H/O: hysterectomy ?Z90.710 - Acquired absence of both cervix and uterus (ICD-10) S/P femoral-femoral bypass surgery ?Z95.828 - Presence of other vascular implants and grafts (ICD-10) Social History (Updated 02/14/23 @ 07:17 by Brittni Odell RN) Within the past year, how often did you have a drink containing alcohol: monthly or less Within the past year, how many standard drinks containing alcohol did you have on a typical day: 1 or 2 Within the past year, how often did you have six or more drinks on one occasion: never Total score: 0 Score interpretation: A score less than 3 is consistent with normal alcohol consumption. Smoking status: Former smoker Second hand tobacco smoke exposure: Yes Non-prescribed substance use: denies use Are you now , , , , never or living with a partner: In a typical week, how many times do you talk on the telephone with family, friends, or neighbors: 3 or more times per week How often do you get together with friends or relatives: 3 or more times per week How often do you attend congregation or holiness services: 4 or more times per year Do you belong to any clubs or organizations such as congregation groups unions, fraternal or athletic groups, or school groups: yes Total score: 4 Score interpretation: A score of greater than or equal to 2 indicates the lowest level of social isolation. 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 Lungs clear to auscultation without rhonchi, wheezes, rales Cardiac: Regular rate and rhythm, no edema, regular s1/s2, no m/g/r Abdomen: Soft, ND/left quadrant, left upper quadrant, left side pain mid axillary line, no evidence of fluid wave. No pulsatile masses on exam, rebound tenderness, Merino sign or pain over Mcburney's point. Constitutional Vital Signs, click to edit/add: Last Vital Signs Temp 97.6 F 11/17/23 13:54 Pulse 96 H 11/17/23 13:54 Resp 18 11/17/23 13:54 BP 117/71 11/17/23 17:00 Pulse Ox 100 11/17/23 15:28 O2 Del Method Room Air 11/17/23 13:54 Course Vital Signs Vital signs: Vital Signs Temperature 97.6 F 11/17/23 13:54 Pulse Rate 96 H 11/17/23 13:54 Respiratory Rate 18 11/17/23 13:54 Blood Pressure 139/89 11/17/23 13:54 Pulse Oximetry 98 11/17/23 13:54 Oxygen Delivery Method Room Air 11/17/23 13:54 Temperature 97.6 F 11/17/23 13:54 Pulse Rate 96 H 11/17/23 13:54 Respiratory Rate 18 11/17/23 13:54 Blood Pressure 117/71 11/17/23 17:00 Pulse Oximetry 100 11/17/23 15:28 Oxygen Delivery Method Room Air 11/17/23 13:54 Medical Decision Making [facility] Narrative Medical decision making narrative: [facility] Patient with history as above presented with 5 weeks of abdominal pain. History obtained from patient. Patient was nontoxic, stable. Ambulatory. Exam as above. Labs reviewed. Independently reviewed imaging. Reviewed external records. Differential diagnosis considered. Overall presentation is consistent with abdominal pain, unclear etiology. 1855 patient was signed out at normal change of pending CT Medical Records Medical records reviewed: Yes I reviewed the patient's medical records Lab Data Lab results reviewed: Yes I reviewed the patient's lab results Labs: Lab Results 11/17/23 Range/Units 14:10 WBC 11.7 H (4.0-11.0) 10^3/uL RBC 4.62 (4.20-5.40) 10^6/uL Hgb 13.8 (12.0-16.0) g/dL Hct 41.8 (36.0-48.0) % MCV 90.5 (81.0-99.0) fL MCH 29.9 (26.7-34.0) pg MCHC 33.0 (29.9-35.2) g/dL RDW 15.8 H (11.0-15.0) % Plt Count 216 (150-450) 10^3/uL MPV 10.3 (9.5-13.5) fL Neut % (Auto) 61.0 (43.0-75.0) % Lymph % (Auto) 27.2 (20.5-60.0) % [place] % (Auto) 8.0 (1.7-12.0) % Eos % (Auto) 2.6 (0.9-7.0) % Baso % (Auto) 0.9 (0.2-2.0) % Neut # (Auto) 7.1 H (1.4-6.5) 10^3/uL Lymph # (Auto) 3.2 (1.2-3.8) 10^3/uL [place] # (Auto) 0.9 H (0.3-0.8) 10^3/uL Eos # (Auto) 0.3 (0.0-0.7) 10^3/uL Baso # (Auto) 0.1 (0.0-0.1) 10^3/uL Abs Immat Gran (auto) 0.03 (0.00-0.03) 10^3/uL Imm/Tot Granulo (auto) 0.3 (0.0-0.5) % Sodium 138 (136-145) mmol/L Potassium 4.2 (3.5-5.1) mmol/L Chloride 102 (98-107) mmol/L Carbon Dioxide 28.5 (21.0-32.0) mmol/L Anion Gap 11.7 BUN 30.0 H (7.0-18.0) mg/dL Creatinine 1.42 H (0.55-1.02) mg/dL Est GFR ( Amer) 43 L (>=60) Est GFR (Non-Af Amer) 36 L (>=60) BUN/Creatinine Ratio 21.1 Glucose 105 (74-106) mg/dL Calcium 9.1 (8.5-10.1) mg/dL Total Bilirubin 0.8 (0.2-1.0) mg/dL AST 24 (15-37) U/L ALT 22 (14-59) U/L Alkaline Phosphatase 115 (46-116) U/L Total Protein 7.8 (6.4-8.2) g/dL Albumin 4.0 (3.4-5.0) g/dL Globulin 3.8 g/dL Albumin/Globulin Ratio 1.1 Lipase 74.0 (16.0-77.0) U/L Discharge Plan Discharge Chief Complaint: Abdominal Pain Clinical Impression: Abdominal pain Patient Disposition: Still a Patient Prescriptions / Home Meds: No Action clopidogrel 75 mg tablet 75 mg PO DAILY Jardiance 10 mg tablet 10 mg PO DAILY metoprolol succinate 25 mg tablet extended release 24 hr 50 mg PO Q12H valsartan 40 mg tablet 20 mg PO DAILY furosemide 20 mg tablet 20 mg PO DAILY Patient Comments: TAKING 1 TABLET TWICE DAILY magnesium oxide 400 mg magnesium capsule 400 mg PO BID allopurinol 100 mg tablet 100 mg PO DAILY aspirin 81 mg tablet,delayed release (DR/EC) 81 mg PO BEDTIME rosuvastatin 40 mg tablet 40 mg PO BEDTIME semaglutide 1 mg/dose (2 mg/1.5 mL) pen injector 1 mg subcut QWEEK Rx Instructions: Due Wednesday morning Print Language: Chinese Referrals: Aure Little QUITLINE COUNSELOR [Primary Care Provider] - 1 week
[2023-11-17 14:31] LABS: Basophils Absolute Auto 0.1 10^3/uL (0.0-0.1); Basophils Percent Auto 0.9 % (0.2-2.0); Eosinophils Absolute Auto 0.3 10^3/uL (0.0-0.7); Eosinophils Percent Auto 2.6 % (0.9-7.0); Hematocrit 41.8 % (36.0-48.0); Hemoglobin 13.8 g/dL (12.0-16.0); Immature Granulocytes Abs Auto 0.03 10^3/uL (0.00-0.03); Immature Granulocytes Pct Auto 0.3 % (0.0-0.5); Lymphocytes Absolute Auto 3.2 10^3/uL (1.2-3.8); Lymphocytes Percent Auto 27.2 % (20.5-60.0); Mean Corpuscular Hemoglobin 29.9 pg (26.7-34.0); Mean Corpuscular Volume 90.5 fL (81.0-99.0); Mean Platelet Volume 10.3 fL (9.5-13.5); Monocytes Absolute Auto 0.9 10^3/uL (0.3-0.8); Neutrophils Absolute Auto 7.1 10^3/uL (1.4-6.5); Platelet Count 216 10^3/uL (150-450); Red Blood Count 4.62 10^6/uL (4.20-5.40); Red Cell Distribution Width 15.8 % (11.0-15.0); White Blood Count 11.7 10^3/uL (4.0-11.0)
[2023-11-17 14:45] LABS: Alanine Aminotransferase 22 U/L (14-59); Albumin Globulin Ratio 1.1; Alkaline Phosphatase 115 U/L (46-116); Anion Gap 11.7; Aspartate Amino Transferase 24 U/L (15-37); BUN Creatinine Ratio 21.1; Bilirubin Total 0.8 mg/dL (0.2-1.0); Calcium 9.1 mg/dL (8.5-10.1); Carbon Dioxide 28.5 mmol/L (21.0-32.0); Chloride 102 mmol/L (98-107); Estimated GFR (African America 43 (>=60); Estimated GFR (Non-African Ame 36 (>=60); Globulin 3.8 g/dL; Glucose 105 mg/dL (74-106); Potassium 4.2 mmol/L (3.5-5.1); Sodium 138 mmol/L (136-145); Total Protein 7.8 g/dL (6.4-8.2)
[2023-11-17] MEDS: METHYLPREDNISOLONE SOD SUCC PF 125 MG/2 ML VIAL IVP (14:47)
[2023-11-17] MEDS: DIPHENHYDRAMINE HCL 50 MG/ML VIAL IV (14:47)
--- NOTE | 2023-11-17 19:21 | ED_ITS ---
HPI - Abdominal Pain General Chief Complaint: Abdominal Pain Stated Complaint: LEFT SIDE PAIN Time Seen by Provider: 11/17/23 14:13 Source: patient Mode of arrival: walk-in Limitations: no limitations History of Present Illness HPI narrative: This 78-year female with a history of diverticulitis was signed out to me at shift change pending CT scan of the abdomen and pelvis. Patient was seen and evaluated. She states she has been having left upper quadrant pain which is burning in nature and when it occurs radiates throughout her whole entire abdomen for the past month. She has also had diarrhea for the past month. She has not had any fever. She denies any blood in her stool. She had a colonoscopy approximately [address] Morrow. She was on a 10-day course of antibiotics for presumptive diverticulitis. Due to the fact that her pain had not resolved she was referred to the emergency department for a CT scan and further evaluation. I reviewed the patient's labs. She has a normal white count and hemoglobin. Creatinine is mildly elevated. Lipase and LFTs are normal. CT scan of the abdomen pelvis which is included in the body of this report does not show any acute findings consistent with diverticulitis but does show some thickening in the rectum. The patient denies that she is having any rectal pain or pain in her lower pelvis. I did discuss with her that there is some abnormal findings on the CT scan and she should follow-up closely for a repeat colonoscopy. In the meantime she is anxious to be relieved of her pain. We discussed options and decided I would give her a short course of Terry with Zofran to prevent nausea and vomiting. Bentyl for cramping and Protonix for possibility of this being more of a stomach issue than a colon issue. The CT scan also did show some degree of constipation but the patient states this is the first day she has not had copious diarrhea so she is reluctant to take any stool softeners. She was given a dose of Bentyl prior to discharge. She was encouraged to have a mild diet over the course of the next week or so to see if the medications and a change in her diet can cool her stomach discomfort. Related Data Home Medications ?Medication ?Instructions ?Recorded ?Confirmed allopurinol 100 mg tablet 100 mg PO DAILY 02/14/23 11/17/23 aspirin 81 mg tablet,delayed 81 mg PO BEDTIME 02/14/23 11/17/23 release furosemide 20 mg tablet 20 mg PO DAILY 02/14/23 11/17/23 magnesium oxide 400 mg PO BID 02/14/23 11/17/23 rosuvastatin 40 mg tablet 40 mg PO BEDTIME 02/14/23 11/17/23 semaglutide 1 mg/dose (2 mg/1.5 1 mg subcut QWEEK 02/14/23 11/17/23 mL) subcutaneous pen injector clopidogrel 75 mg tablet 75 mg PO DAILY 11/17/23 11/17/23 empagliflozin 10 mg tablet 10 mg PO DAILY 11/17/23 11/17/23 (Jardiance) metoprolol succinate 25 mg 50 mg PO Q12H 11/17/23 11/17/23 tablet,extended release 24 hr valsartan 40 mg tablet 20 mg PO DAILY 11/17/23 11/17/23 Allergies Allergy/AdvReac Type Severity Reaction Status Date / Time Penicillins Allergy Intermediate Verified 02/14/23 00:26 iv dye Allergy Intermediate Uncoded 02/14/23 00:26 [facility] Medical History (Updated 11/17/23 @ 18:55 by Arjun Lyn MD) Leukocytosis ?D72.829 - Elevated white blood cell count, unspecified (ICD-10) HLD (hyperlipidemia) ?E78.5 - Hyperlipidemia, unspecified (ICD-10) Type 2 diabetes mellitus ?E11.9 - Type 2 diabetes mellitus without complications (ICD-10) Acute exacerbation of CHF (congestive heart failure) ?I50.9 - Heart failure, unspecified (ICD-10) Surgical History (Updated 02/14/23 @ 07:13 by Brittni Odell RN) H/O: hysterectomy ?Z90.710 - Acquired absence of both cervix and uterus (ICD-10) S/P femoral-femoral bypass surgery ?Z95.828 - Presence of other vascular implants and grafts (ICD-10) Social History (Updated 02/14/23 @ 07:17 by Brittni Odell RN) Within the past year, how often did you have a drink containing alcohol: monthly or less Within the past year, how many standard drinks containing alcohol did you have on a typical day: 1 or 2 Within the past year, how often did you have six or more drinks on one occasion: never Total score: 0 Score interpretation: A score less than 3 is consistent with normal alcohol consumption. Smoking status: Former smoker Second hand tobacco smoke exposure: Yes Non-prescribed substance use: denies use Are you now , , , , never or living with a partner: In a typical week, how many times do you talk on the telephone with family, friends, or neighbors: 3 or more times per week How often do you get together with friends or relatives: 3 or more times per week How often do you attend quaker or religion services: 4 or more times per year Do you belong to any clubs or organizations such as quaker groups unions, [employer] or athletic groups, or school groups: yes Total score: 4 Score interpretation: A score of greater than or equal to 2 indicates the lowest level of social isolation. Little interest or pleasure in doing things: not at all Feeling down, depressed, or hopeless: not at all Feel stressed/tense/nervous/anxious/difficulty sleeping: only a little Life stressors: other Life stressor details: [employer] Due to disability, difficulty making decisions: No Do you think of yourself as: straight/heterosexual Gender Identity: female Exam Constitutional Vital Signs, click to edit/add: Last Vital Signs Temp 97.6 F 11/17/23 13:54 Pulse 84 11/17/23 19:08 Resp 18 11/17/23 19:08 BP 132/80 11/17/23 19:08 Pulse Ox 97 11/17/23 19:08 O2 Del Method Room Air 11/17/23 13:54 Course Vital Signs Vital signs: Vital Signs Temperature 97.6 F 11/17/23 13:54 Pulse Rate 96 H 11/17/23 13:54 Respiratory Rate 18 11/17/23 13:54 Blood Pressure 139/89 11/17/23 13:54 Pulse Oximetry 98 11/17/23 13:54 Oxygen Delivery Method Room Air 11/17/23 13:54 Temperature 97.6 F 11/17/23 13:54 Pulse Rate 84 11/17/23 19:08 Respiratory Rate 18 11/17/23 19:08 Blood Pressure 132/80 11/17/23 19:08 Pulse Oximetry 97 11/17/23 19:08 Oxygen Delivery Method Room Air 11/17/23 13:54 MDM - Abdominal Pain MDM Narrative Medical decision making narrative: The [address] [address] [address] Scan Report Signed Patient: WILBER ELIAS MR#: [id number] : 1945 Acct:[id number] Age/Sex: 78 / F ADM Date: 11/17/23 Loc: ER Attending Dr: Ordering Physician: Arjun Lyn M.D. Date of Service: 11/17/23 Procedure(s): CT abdomen pelvis w con Accession Number(s): [id number] cc: Aure Little WELLNESS COORDINATOR~ The [address] [address] Patient Name: WILBER ELIAS MRN: [id number] date: 1945 Sex: F Assigned Patient Location: ER Current Patient Location: ED.MAIN Accession/Order Number: [id number] Exam Date: 11/17/2023 15:44 Report Date: 11/17/2023 19:00 At the request of: ARJUN LYN Procedure: CT abdomen pelvis w con EXAM: CT SCAN ABDOMEN AND PELVIS WITH IV CONTRAST DATE: 11/17/2023 3:44 PM EDT HISTORY: abdominal pain 78-year-old female COMPARISON: None. TECHNIQUE: CT examination of the abdomen and pelvis was performed following the intravenous administration of IV contrast. CT dose lowering techniques were used, to include: automated exposure control, adjustment for patient size, and/or use of iterative reconstruction. Contrast: 100 ml Isovue 370 FINDINGS: Magnetic Tape Composer Operator/ Lines and Tubes: Magnetic Tape Composer Operator demonstrates a nonobstructive bowel gas pattern. Cardiac pacer wires demonstrated. Lower Chest: The heart is enlarged. Free Air: None. Liver: Normal Gallbladder: Removed Common Bile Duct: Prominent Pancreas: Normal Spleen: Normal Adrenal Glands: Right: Normal Left: Normal Kidneys: Right Kidney: Fluid attenuating upper pole cyst measures 15 mm. Right Ureter: Normal. Left Kidney: Normal. Left Ureter: Normal. GI Tract: Distal esophagus in FOV: Decompressed Stomach: Decompressed which limits evaluation Small Bowel: Normal Appendix: No secondary signs of acute appendicitis. Large Bowel: Diverticulosis. No CT evidence for acute diverticulitis.Mild prominence of the rectal wall greater than expected for lack of distention. Mesentery/Peritoneum: Normal Vasculature: Aorta: Vascular calcifications are present. IVC: Normal. Rey Vein: Normal. Retroperitoneum: Normal Abdominal/Pelvic Wall: Bifurcation bypass graft demonstrated. Bladder: Decompressed with a foci of air in the lumen. Reproductive: Normal Musculoskeletal: Normal Free Fluid: None. CT/CT abdomen pelvis w con IMPRESSION: 1. Diverticulosis without CT evidence for acute diverticulitis. 2. Moderate retention of stool in the cecum. 3. Nodular cirrhotic morphology liver. Please correlate with patient's medical history. 4. Cholecystectomy. 5. Right renal and left renal cysts. No further follow-up needed. 6. Severe atherosclerosis. 7. Bifemoral bypass graft, incompletely imaged 8. Mild prominence of the rectal wall greater than expected for lack of distention. Please correlate with patient's colonoscopy to exclude an infiltrative process. Electronically authenticated by: DELLA GREEN Date: 11/17/2023 19:00 Lab Data Labs: Lab Results 11/17/23 Range/Units 14:10 WBC 11.7 H (4.0-11.0) 10^3/uL RBC 4.62 (4.20-5.40) 10^6/uL Hgb 13.8 (12.0-16.0) g/dL Hct 41.8 (36.0-48.0) % MCV 90.5 (81.0-99.0) fL MCH 29.9 (26.7-34.0) pg MCHC 33.0 (29.9-35.2) g/dL RDW 15.8 H (11.0-15.0) % Plt Count 216 (150-450) 10^3/uL MPV 10.3 (9.5-13.5) fL Neut % (Auto) 61.0 (43.0-75.0) % Lymph % (Auto) 27.2 (20.5-60.0) % [place] % (Auto) 8.0 (1.7-12.0) % Eos % (Auto) 2.6 (0.9-7.0) % Baso % (Auto) 0.9 (0.2-2.0) % Neut # (Auto) 7.1 H (1.4-6.5) 10^3/uL Lymph # (Auto) 3.2 (1.2-3.8) 10^3/uL [place] # (Auto) 0.9 H (0.3-0.8) 10^3/uL Eos # (Auto) 0.3 (0.0-0.7) 10^3/uL Baso # (Auto) 0.1 (0.0-0.1) 10^3/uL Abs Immat Gran (auto) 0.03 (0.00-0.03) 10^3/uL Imm/Tot Granulo (auto) 0.3 (0.0-0.5) % Sodium 138 (136-145) mmol/L Potassium 4.2 (3.5-5.1) mmol/L Chloride 102 (98-107) mmol/L Carbon Dioxide 28.5 (21.0-32.0) mmol/L Anion Gap 11.7 BUN 30.0 H (7.0-18.0) mg/dL Creatinine 1.42 H (0.55-1.02) mg/dL Est GFR ( Amer) 43 L (>=60) Est GFR (Non-Af Amer) 36 L (>=60) BUN/Creatinine Ratio 21.1 Glucose 105 (74-106) mg/dL Calcium 9.1 (8.5-10.1) mg/dL Total Bilirubin 0.8 (0.2-1.0) mg/dL AST 24 (15-37) U/L ALT 22 (14-59) U/L Alkaline Phosphatase 115 (46-116) U/L Total Protein 7.8 (6.4-8.2) g/dL Albumin 4.0 (3.4-5.0) g/dL Globulin 3.8 g/dL Albumin/Globulin Ratio 1.1 Lipase 74.0 (16.0-77.0) U/L Discharge Plan Discharge Stand Alone Forms: Portal Instructions Chief Complaint: Abdominal Pain Clinical Impression: Abdominal pain Patient Disposition: Home, Self-Care Time of Disposition Decision: 19:23 Condition: Good Prescriptions / Home Meds: No Action clopidogrel 75 mg tablet 75 mg PO DAILY Jardiance 10 mg tablet 10 mg PO DAILY metoprolol succinate 25 mg tablet extended release 24 hr 50 mg PO Q12H valsartan 40 mg tablet 20 mg PO DAILY furosemide 20 mg tablet 20 mg PO DAILY Patient Comments: TAKING 1 TABLET TWICE DAILY magnesium oxide 400 mg magnesium capsule 400 mg PO BID allopurinol 100 mg tablet 100 mg PO DAILY aspirin 81 mg tablet,delayed release (DR/EC) 81 mg PO BEDTIME rosuvastatin 40 mg tablet 40 mg PO BEDTIME semaglutide 1 mg/dose (2 mg/1.5 mL) pen injector 1 mg subcut QWEEK Rx Instructions: Due Wednesday morning Print Language: Serbian Instructions: Abdominal Pain (ED) Referrals: Aure Little NP [Primary Care Provider] - 1 week Davin Morrow MD [Physician] - As soon as possible
[2023-11-17] MEDS: ONDANSETRON 4 MG RAPDIS TABLET SL (19:32)
[2023-11-17] MEDS: HYDROCODONE/ACET 5-325 MG TABLET 0.5 TAB PO (19:33)
[2023-11-17] MEDS: DICYCLOMINE HCL 10 MG CAPSULE 20 MG PO (19:33)
== END 2023-11-17 19:51 | disposition home or self-care (01) ==
PROVIDERS: Emergency Provider Emergency Medicine; PCP Nurse Practitioner
DX: R10.9 Unspecified abdominal pain (principal); Z87.891 Personal history of nicotine dependence
CPT/HCPCS: 36415; 74177; 80053; 83690; 85025; 96361; 96372; 96374; 96375; 99285; J1200; J2270; J2919; Q0162; Q9967

== ENCOUNTER 2023-11-29 12:35 | Outpatient (OUT) | payer MEDICARE, OTHER, SELFPAY ==
--- OUTSIDE RECORDS SUMMARY | 2023-11-29 13:00 | XMS_ITS | CCD ---
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 Name Role Phone PHYSICIAN, DEFAULT Unavailable Unavailable PHYSICIAN, DEFAULT Unavailable Unavailable AICHHOLZ, PHARM TECH AURE Admitting Unavailable AICHHOLZ, PHARM TECH AURE Attending Unavailable AICHHOLZ, PHARM TECH AURE Primary Care Unavailable AICHHOLZ, PHARM TECH AURE Consulting Unavailable AICHHOLZ, PHARM TECH AURE Admitting Unavailable AICHHOLZ, PHARM TECH AURE Attending Unavailable AICHHOLZ, PHARM TECH AURE Primary Care Unavailable AICHHOLZ, PHARM TECH AURE Consulting Unavailable AICHHOLZ, PHARM TECH AURE Admitting Unavailable AICHHOLZ, PHARM TECH AURE Attending Unavailable AICHHOLZ, PHARM TECH AURE Primary Care Unavailable AICHHOLZ, PHARM TECH AURE Consulting Unavailable Aichholz PHARM TECH, Aure Joann Primary Care Provider Aichholz GUALBERTO, Aure Joann Primary Care Provider Aichholz GUALBERTO, Aure Joann Primary Care Provider Aichholz GUALBERTO, Aure Joann Primary Care Provider AICMOE AURE JOANN Primary Care Unavailable GEOVANNY CHÁVEZ Admitting Unavailable PARAS RAMIREZ Attending Unavailable AICHHOLHoney, AURE J. Primary Care Unavailable Aichholz DOG LICENSE OFFICER SUPERVISOR-GUALBERTO, Aure J Primary Care Provider Arturo Craft MD Primary Care Provider Aichholhoney CUT OUT MARKER, Aure Unavailable MAHSA MARLEY Attending Unavailable MAHSA MARLEY Admitting Unavailable AICHHOLHoney, AURE JOANN Primary Care Unavailable AICHHOLHoney, AURE JOANN Primary Care Unavailable AFSHAN REDMAN Attending Unava ilable AFSHAN REDMAN Admitting Unava ilable Aichholz GUALBERTO, Aure Joann Primary Care Provider [phone] AICHHOLZ, AURE JOANN Primary Care Unavailable KAKA, YAQUTA Referring Unavailable AICHHOLZ, AURE JOANN Primary Care Unavailable AICHHOLZ, AURE JOANN Primary Care Unavailable MIKEL BARAHONA Referring Unavailable AICHHOLZ, AURE JOANN Primary Care Unavailable AICHHOLZ, AURE JOANN Referring Unavailable AFSHAN REDMAN Attending Unava ilable AICHHOLZ, AURE JOANN Primary Care Unavailable KAKA, YAQUTA Referring Unavailable NATY AFSHAN DENG Attending Unava ilable AICHHOLZ, AURE JOANN Primary Care Unavailable AICHHOLZ, AURE JOANN Primary Care Unavailable MYESHA CEHNG Attending Unavailable AICHHOLZ, AURE JOANN Primary Care Unavailable MIKEL BARAHONA Referring Unavailable AICHHOLZ, AURE JOANN Primary Care Unavailable MIKEL BARAHONA Attending Unavailable AICHHOLZ, AURE JOANN Primary Care Unavailable AICHHOLZ, AURE JOANN Referring Unavailable KAKA, YAQUTA Attending Unavailable AICHHOLZ, AURE JOANN Primary Care Unavailable MYESHA CHENG Referring Unavailable ARPITA PARIS Attending Unavailabl e AICHHOLZ, AURE JOANN Primary Care Unavailable MAURA LGASER Referring Unavailable AICHHOLZ, AURE JOANN Primary Care Unavailable CHALO PRITCHARD Referring Unavailable AICHHOLZ, AURE JOANN Primary Care Unavailable SHAIKH GIBSON Referring Unavailable DWIGHT ROSS Attending Unavailable AICHHOLZ, AURE JOANN Primary Care Unavailable AICHHOLZ, AURE JOANN Primary Care Unavailable MYLENE HINOJOSA Attending Unavailable TOYAHHOLZ, AURE JOANN Primary Care Unavailable MYLENE HINOJOSA Referring Unavailable MAURA GLASER Attending Unavailable AICHHOLZ, AURE JOANN Primary Care Unavailable MAURA GLASER R Referring Unavailable AICHHOLZ, AURE JOANN Primary Care Unavailable AICHHOLZ, AURE JOANN Primary Care Unavailable CHAOL PRITCHARD Attending Unavailable AICHHOLZ, AURE JOANN Primary Care Unavailable KAKA, YAQUTA Referring Unavailable AICHHOLZ, AURE JOANN Primary Care Unavailable KAKA, YAQUTA Referring Unavailable AICHHOLZ, AURE JOANN Primary Care Unavailable MIKEL BARAHONA Attending Unavailable AICHHOLZ, AURE JOANN Primary Care Unavailable AICHHOLZ, AURE JOANN Referring Unavailable KAKA, YAQUTA Attending Unavailable AICHHOLZ, AURE JOANN Primary Care Unavailable KAKA, YAQUTA Referring Unavailable AICHHOLZ, AURE JOANN Primary Care Unavailable MIKEL BARAHONA Attending Unavailable AICHHOLZ, AURE JOANN Primary Care Unavailable AICHHOLZ, AURE JOANN Primary Care Unavailable CHALO PRITCHARD Attending Unavailable AICHHOLZ, AURE JOANN Primary Care Unavailable MIKEL BARAHONA Referring Unavailable AICHHOLZ, AURE JOANN Primary Care Unavailable MIKEL BARAHONA Referring Unavailable AICHHOLZ, AURE JOANN Primary Care Unavailable KAKA, YAQUTA Attending Unavailable AICHHOLZ, AURE JOANN Primary Care Unavailable AICHHOLZ, AURE JOANN Referring Unavailable KAKA, YAQUTA Attending Unavailable AICHHOLZ, AURE JOANN Primary Care Unavailable CHARMAINE BARTH Attending Unavailable AICHHOLZ, AURE JOANN Primary Care Unavailable CHALO PRITCHARD Attending Unavailable AICHHOLZ, AURE J Referring Unavailable AICHHOLZ, AURE J Primary Care Unavailable AICHHOLZ, AURE J Referring Unavailable AICHHOLZ, AURE J Primary Care Unavailable AICHHOLZ, AURE J Referring Unavailable AICHHOLZ, AURE J Primary Care Unavailable AICHHOLZ, AURE J Referring Unavailable AICHHOLZ, AURE J Primary Care Unavailable AICHHOLZ, AURE J Referring Unavailable AICHHOLZ, AURE J Primary Care Unavailable AICHHOLZ, AURE J Referring Unavailable AICHHOLZ, AURE J Primary Care Unavailable AICHHOLZ, AURE J Referring Unavailable AICHHOLZ, AURE J Primary Care Unavailable AICHHOLZ, AURE J Referring Unavailable AICHHOLZ, AURE J Primary Care Unavailable AICHHOLZ, AURE J Referring Unavailable AICHHOLZ, AURE J Primary Care Unavailable AICHHOLZ, AURE J Referring Unavailable AICHHOLZ, AURE J Primary Care Unavailable AICHHOLZ, AURE J Referring Unavailable AICHHOLZ, AURE J Primary Care Unavailable AICHHOLZ, AURE J Referring Unavailable AICHHOLZ, AURE J Primary Care Unavailable AICHHOLZ, AURE J Referring Unavailable AICHHOLZ, AURE J Primary Care Unavailable AICHHOLZ, AURE J Referring Unavailable AICHHOLZ, AURE J Primary Care Unavailable AICHHOLZ, AURE J Referring Unavailable AICHHOLZ, AURE J Primary Care Unavailable AICHHOLZ, AURE J Referring Unavailable AICHHOLZ, AURE J Primary Care Unavailable AICHHOLZ, AURE J Referring Unavailable AICHHOLZ, AURE J Primary Care Unavailable AICHHOLZ, AURE J Referring Unavailable AICHHOLZ, AURE J Primary Care Unavailable AICHHOLZ, AURE J Referring Unavailable AICHHOLZ, AURE J Primary Care Unavailable AICHHOLZ, AURE J Referring Unavailable AICHHOLZ, AURE J Primary Care Unavailable AICHHOLZ, AURE J Referring Unavailable AICHHOLZ, AURE J Primary Care Unavailable AICHHOLZ, AURE J Referring Unavailable AICHHOLZ, AURE J Primary Care Unavailable AICHHOLZ, AURE J Referring Unavailable AICHHOLZ, AURE J Primary Care Unavailable AICHHOLZ, AURE J Referring Unavailable AICHHOLZ, AURE J Primary Care Unavailable AICHHOLZ, AURE J Referring Unavailable AICHHOLZ, AURE J Primary Care Unavailable AICHHOLZ, AURE J Referring Unavailable AICHHOLZ, AURE J Primary Care Unavailable AICHHOLZ, AURE J Referring Unavailable AICHHOLZ, AURE J Primary Care Unavailable AICHHOLZ, AURE J Referring Unavailable AICHHOLZ, AURE J Primary Care Unavailable AICHHOLZ, AURE J Referring Unavailable AICHHOLZ, AURE J Primary Care Unavailable AICHHOLZ, AURE J Referring Unavailable AICHHOLZ, AURE J Primary Care Unavailable AICHHOLZ, AURE J Referring Unavailable AICHHOLZ, AURE J Primary Care Unavailable AICHHOLZ, AURE J Referring Unavailable AICHHOLZ, AURE J Primary Care Unavailable AICHHOLZ, AURE J Referring Unavailable AICHHOLZ, AURE J Primary Care Unavailable AICHHOLZ, AURE J Referring Unavailable AICHHOLZ, AURE J Primary Care Unavailable AICHHOLZ, AURE J Referring Unavailable AICHHOLZ, AURE J Primary Care Unavailable AICHHOLZ, AURE J Referring Unavailable AICHHOLZ, AURE J Primary Care Unavailable AICHHOLZ, AURE J Referring Unavailable AICHHOLZ, AURE J Primary Care Unavailable AICHHOLZ, AURE J Referring Unavailable AICHHOLZ, AURE J Primary Care Unavailable AICCiaranHOLILANA MéndezA J Referring Unavailable AICHHOLZ, AURE J Primary Care Unavailable AICHHOLHoney, AURE J Referring Unavailable AICHHOLZ, AURE J Primary Care Unavailable AICMOE, AURE Attending Unavailable AICHHOLHoney, AURE Attending Unavailable AICCiaranHERBERTHILANAA Attending Unavailable AICCiaranHOLHoney, AURE J Referring Unavailable AICCiaranHOLHoney, AURE J Primary Care Unavailable BATSHEVA HATFIELD Attending Unavailable MICHELLEHOLHoney, AURE J Referring Unavailable AICCiaranHOLHoney, AURE J Primary Care Unavailable Allergies Allergy Classification Reported Allergen(s) Allergy Type Date of Onset Reaction(s) Facility Penicillins (antibiotic) (1 source) Penicillins Drug Allergy 5 Anaphylaxis, [facility] (1 source) Iodine (And Iodine Containting Drugs) Drug allergy (disorder) 7 [facility] (6 sources) Penicillins; Translations: [PENICILLINS] Drug allergy (disorder) 5 [facility] (20 sources) Contrast media; Translations: [DYE] Drug Allergy 7 Itching, Anaphylaxis [facility] (4 sources) Penicillins Drug Allergy 5 Anaphylaxis, [facility] (20 sources) Iodinated Contrast Media; Translations: [IODINATED CONTRAST MEDIA] Drug Allergy 9 Other: See Comments [facility] (20 sources) Penicillins Drug Allergy 5 Anaphylaxis, [facility] (2 sources) Penicillins Propensity to adverse reactions 3 [facility] (1 source) OTHER; Translations: [OTHER] Propensity to adverse reactions to food (disorder) 3 [facility] Rep[facility] Medications Current Medications Medication Drug Class(es) Dates Sig (Normalized) Sig (Original) allopurinol 100 mg oral tablet (20 sources) Xanthine Oxidase Inhibitor Start: 09-27-2017 End: 07-07-2023 take 1 tablet by mouth once daily allopurinol (ZYLOPRIM) 100 mg tablet Take 100 mg by mouth once daily. 0 09/27/2017 Active Comment on above: allopurinol 100 mg t ablet Take 100 mg by mouth once daily. aspirin 325 mg oral tablet (20 sources) Platelet Aggregation Inhibitor, Nonsteroidal Anti-inflammatory Drug Start: 01-09-2020 End: 12-17-2022 aspirin 325 mg tablet Take by mouth daily. 0 01/09/2020 Active take 1 tablet by mouth once lisbeth y aspirin, enteric coated (ASPIRIN, ENTERIC COATED) 81 mg EC tablet Take 81 mg by mouth once daily. 0 Active Comment on above: Take 1 tablet by nela th once daily. Take 81 mg by mouth once daily. Blood-Glucose Sensor (FREESTYLE RU 3 SENSOR) mauricio (20 sources) Start: 01-27-2023 Blood-Glucose Sensor (FREESTYLE RU 3 SENSOR) mauricio Use new sensor every 14 days to monitor blood glucose. 6 Each 3 01/27/2023 Active Comment on above: Use new sensor every 14 days to monitor blood glucose. diazePAM 2 mg oral tablet (20 sources) Benzodiazepine Start: 03-24-2023 diazePAM (VALIUM) 2 mg tablet Start: 03-24-2023 take 1 tablet by mouth once di azePAM (Valium) 2 MG tablet Indications: Generalized anxiety disorder with panic attacks (CMS/HCC) Take 1 tablet (2 mg) by mouth every 12 (twelve) hours if needed for anxiety for up to 10 days 20 tablet 0 03/24/2023 Active empagliflozin 10 mg oral tablet (20 sources) Sodium-Glucose Cotransporter 2 Inhibitor Start: 06-15-2023 End: 07-26-2024 take 1 tablet by mouth once daily at breakfast empagliflozin (JARDIANCE) 10 mg tablet Take 1 tablet by mouth daily with breakfast. 90 tablet 3 07/27/2023 07/26/2024 Active Comment on above: Take 1 tablet by nela th daily with breakfast. fluticasone propionate 0.05 mg/actuat metered dose nasal spray (20 sources) Corticosteroid fluticasone (FLONASE) 50 mcg/actuation nasal spray fluticasone propionate 50 mcg/actuation nasal spray,suspension 0 Active take 2 spray(s) nasa l route in the morning fluticasone (Flonase) 50 MCG/ACT nasal spray Administer 2 sprays into each nostril in the morning. Shake gently. Before first use, prime pump. After use, clean tip and replace cap.. 0 Active Comment on above: fluticasone propiona te 50 mcg/actuation nasal spray,suspension furosemide 40 mg oral tablet (20 sources) Loop Diuretic Start: take 0.5 tablet by mouth once daily furosemide (LASIX) 40 mg tablet Take 0.5 tablets by mouth once daily. 90 tablet 1 07/27/2023 Active Start: 07-05-2023 End: 07-27-2023 take 1 tablet by mouth once daily furosemide (LASIX) 40 mg tablet Take 1 tablet by mouth once daily. 90 tablet 3 07/05/2023 07/27/2023 Discontinued Start: 06-10-2023 End: 07-05-2023 take 1 tablet by mouth twice daily furosemide (LASIX) 40 mg tablet Take 1 tablet by mouth two times a day. 60 tablet 1 06/15/2023 07/05/2023 Discontinued Start: 05-31-2023 End: 05-31-2023 furosemide 40 mg injection ( LASIX) Start: 05-31-2023 End: 06-10-2023 furosemide (LASIX) 40 mg tab let Take 1 and 1/2 tablets (60 mg) by mouth in the morning and take 1 tablet (40mg) in the afternoon. 75 tablet 1 06/10/2023 Active Start: 02-25-2023 End: 05-31-2023 take 1 tablet by mouth once daily furosemide (LASIX) 20 mg tablet Take 1 tablet by mouth once daily. 0 02/25/2023 05/31/2023 Discontinued Start: 05-03-2020 End: 02-25-2023 take 1 tablet by mouth twice daily furosemide (LASIX) 20 mg tablet Take 1 tablet by mouth twice daily. 60 tablet 2 05/03/2020 02/25/2023 Discontinued (Adjust Sig - Block E-Cancel) Start: 01-08-2020 End: 12-17-2022 take 1 tablet by mouth once daily furosemide (LASIX) 20 mg tablet Take 1 tablet by mouth once daily. 30 tablet 0 01/08/2020 12/17/2022 Discontinued (Other) Comment on above: Take 1 tablet by nela th twice daily. Take 1 tablet by nela th once daily. Take 1 tablet by nela th once daily. Take 40mg in the morning and 20mg in the afternoon. Take 1 and 1/2 table ts (60 mg) by mouth in the morning and take 1 tablet (40mg) in the afternoon. Take 1 tablet by nela th two times a day. Take 0.5 tablets by mouth once daily. 3 ml insulin detemir 100 unt/ml pen injector (20 sources) Insulin Analog Start: inject 20 [IU] by subcutaneous injection once daily at bedtime insulin detemir U-100 (LEVEMIR) 100 unit/mL (3 mL) injection pen Inject 20 Units subcutaneously daily at bedtime. 0 06/02/2023 Active Start: 01-27-2023 End: 01-27-2023 inject 32 [IU] by subcutaneous injection once daily at bedtime insulin detemir U-100 (LEVEMIR) 100 unit/mL (3 mL) injection pen Inject 32 Units subcutaneously daily at bedtime. 0 01/27/2023 01/27/2023 Discontinued (Adjust Sig - Block E-Cancel) Start: 01-27-2023 End: 06-02-2023 inject 28 [IU] by subcutaneous injection once daily at bedtime insulin detemir U-100 (LEVEMIR) 100 unit/mL (3 mL) injection pen Inject 28 Units subcutaneously daily at bedtime. 0 01/27/2023 06/02/2023 Discontinued (Adjust Sig - Block E-Cancel) Start: 09-02-2018 End: 06-23-2022 LEVEMIR FLEXTOUCH U-[address] 100 unit/mL (3 mL) inpn injection 10 Units. 0 09/02/2018 06/23/2022 Discontinued insulin detemir (Levemir FlexTouch) 100 UNIT/ML pen Inject 50 Units under the skin at bedtime 0 Active End: 01-27-2023 insulin detemir U-100 (LEVEM IR) 100 unit/mL (3 mL) injection pen Inject 35 Units subcutaneously. 0 01/27/2023 Discontinued (Adjust Sig - Block E-Cancel) Comment on above: 10 Units. Inject 35 Units subc utaneously. Inject 28 Units subc utaneously daily at bedtime. Inject 32 Units subc utaneously daily at bedtime. Inject 20 Units subc utaneously daily at bedtime. 3 ml insulin glargine 100 unt/ml pen injector (2 sources) Insulin Analog Start: 04-06-20 insulin glargine (Basaglar KwikPen) 100 UNIT/ML pen Indications: Type 2 diabetes mellitus without complication, with long-term current use of insulin ([facility]) Up to 50 units in the evening 15 each 12 04/06/2023 Active lisinopril 40 mg oral tablet (19 sources) Angiotensin Converting Enzyme Inhibitor take 0.5 tablet by mouth in the morning, then take 0.5 tablet by mouth at bedtime lisinopriL (PRINIVIL,ZESTRIL) 40 mg tablet Take 0.5 tablets (20 mg total) by mouth in the morning and 0.5 tablets (20 mg total) before bedtime. 0 Active magnesium oxide 400 mg oral tablet (20 sources) Start: 10-26-19 21 End: 11-11-19 24 take 1 tablet by mouth twice daily magnesium oxide (MAG-OX) 400 mg (241.3 mg magnesium) tablet Indications: Hypomagnesemia TAKE 1 TABLET BY MOUTH TWICE DAILY. TAKE SEPERATELY FROM DOXYCYCLINE 180 tablet 3 11/11/2023 Active Start: 01-09-2019 take 1 tablet by nela th in the morning, then take 1 tablet by mouth at bedtime magnesium oxide (MAG-OX) 400 mg tablet Take 1 tablet (400 mg total) by mouth in the morning and 1 tablet (400 mg total) before bedtime. 0 01/09/2019 Active Comment on above: TAKE 1 TABLET BY NELA TH TWICE DAILY, TAKE SEPERATELY FROM DOXYCYCLINE Take 1 tablet by nela th twice daily. This med needs to be taken separately from doxycycline. TAKE 1 TABLET BY NELA TH TWICE DAILY. TAKE SEPERATELY FROM DOXYCYCLINE magnesium oxide 600 mg / pyridoxine hydrochloride 25 mg oral tablet (2 sources) take 1 tablet by mouth in the morning magnesium oxide-pyridoxine (Beelith) 362-20 MG tablet Take 1 tablet by mouth in the morning. 0 Active meclizine hydrochloride 25 mg oral tablet (19 sources) Antiemetic meclizine (ANTIVERT) 25 mg tablet Take 1 tablet (25 mg total) by mouth. 0 Active metFORMIN hydrochloride 1000 mg oral tablet (20 sources) Biguanide take 1 tablet by mouth in the morning, then take 1 tablet by mouth at mealtime metFORMIN (GLUCOPHAGE) 1000 mg tablet Take 1 tablet (1,000 mg total) by mouth in the morning and 1 tablet (1,000 mg total) in the evening. Take with meals. 0 Active End: 06-23-2022 metFORMIN (GLUCOPHAGE) 1,000 mg tablet Take 500 mg by mouth twice daily. 0 06/23/2022 Discontinued (Side Effects) Comment on above: Take 1,000 mg by nela th twice daily. Take 500 mg by mouth twice daily. 24 hr metoprolol succinate 25 mg extended release oral tablet (20 sources) beta-Adrenergic Genia Start: 10-07-2023 End: 10-07-2023 take 1 tablet by mouth every twenty-four hours in the evening metoprolol succinate ER (TOPROL XL) 25 mg 24 hr tablet Take 1 tablet by mouth as directed. 50 mg AM and 25 mg PM 270 tablet 3 10/07/2023 Active Start: 07-27-2023 End: 10-07-2023 take 1 tablet by mouth twice daily metoprolol succinate ER (TOPROL XL) 25 mg 24 hr tablet Take 1 tablet by mouth two times a day. 180 tablet 3 07/27/2023 10/07/2023 Discontinued Start: 03-22-2023 End: 03-21-2024 take 1 tablet by mouth once daily metoprolol succinate ER (TOPROL XL) 25 mg 24 hr tablet Take 1 tablet by mouth once daily. 90 tablet 3 03/22/2023 07/27/2023 Discontinued Start: 01-09-2019 take 0.5 tablet by m outh every twenty-four hours metoprolol succinate XL (TOPROL-XL) 25 mg 24 hr tablet Take 0.5 tablets (12.5 mg total) by mouth. 0 01/09/2019 Active take 1 tablet by nela th in the morning, then take 1 tablet by mouth at bedtime metoprolol tartrate (LOPRESSOR) 50 mg tablet Take 1 tablet (50 mg total) by mouth in the morning and 1 tablet (50 mg total) before bedtime. 0 Active take 1 tablet by nela th every twenty-four hours in the morning metoprolol succinate XL (Toprol-XL) 25 MG 24 hr tablet Indications: Heart Failure , Hypertension Take 25 mg by mouth in the morning. Do not crush or chew.. 0 Active Comment on above: Take 1 tablet by nela th once daily. Take 1 tablet by nela th two times a day. naproxen 500 mg oral tablet (19 sources) Nonsteroidal Anti-inflammatory Drug Start: 01-26-20 19 naproxen (NAPROSYN) 500 mg tablet Take 1 tablet (500 mg total) by mouth. 0 01/25/2019 Active rosuvastatin calcium 40 mg oral tablet (20 sources) HMG-CoA Reductase Inhibitor Start: 05-19-19 take 1 tablet by mouth once daily at bedtime rosuvastatin (CRESTOR) 40 mg tablet Indications: 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 , Mixed hyperlipidemia Take 1 tablet by mouth daily at bedtime. 90 tablet 3 05/19/2023 Active Start: 06-11-2022 End: 05-16-2023 take 1 tablet by mouth once daily at bedtime rosuvastatin (CRESTOR) 40 mg tablet Indications: 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 , Mixed hyperlipidemia Take 1 tablet by mouth daily at bedtime. 90 tablet 3 05/19/2023 Active Comment on above: Take 1 tablet by nela th daily at bedtime. 0.25 mg, 0.5 mg dose 1.5 ml semaglutide 1.34 mg/ml pen injector (2 sources) Start: 09-21-2022 End: 10-19-2022 semaglutide (OZEMPIC) 0.25 mg or 0.5 mg(2 mg/1.5 mL) pen Inject 0.5 mg subcutaneously one time a week for 28 days. 2 mL 3 09/21/2022 10/19/2022 Active Start: 08-13-2022 End: 10-08-2022 inject 0.25 mg by subcutaneous injection every week, then inject 0.5 mg by subcutaneous injection every week semaglutide (OZEMPIC) 0.25 mg or 0.5 mg(2 mg/1.5 mL) pen Inject 0.25 mg subcutaneously one time a week for 28 days, THEN 0.5 mg one time a week for 28 days. 3 mL 0 08/13/2022 10/08/2022 Active Comment on above: Inject 0.25 mg subcu taneously one time a week for 28 days, THEN 0.5 mg one time a week for 28 days. Inject 0.5 mg subcut aneously one time a week for 28 days. semaglutide (OZEMPIC) 2 mg/dose (8 mg/3 mL) pen injector (20 sources) Start: inject 2 mg by subcutaneous injection every week semaglutide (OZEMPIC) 2 mg/dose (8 mg/3 mL) pen injector Inject 2 mg subcutaneously one time a week. 3 mL 0 09/23/2023 Active Start: 09-23-2023 End: 10-23-2023 inject 2 mg by subcutaneous injection every week semaglutide (OZEMPIC) 2 mg/dose (8 mg/3 mL) pen injector Inject 2 mg subcutaneously one time a week. 3 mL 0 09/23/2023 10/23/2023 Active Start: 06-02-2023 End: 09-23-2023 inject 2 mg by subcutaneous injection every week semaglutide (OZEMPIC) 2 mg/dose (8 mg/3 mL) pen injector Inject 2 mg subcutaneously one time a week. 3 mL 3 06/02/2023 09/23/2023 Discontinued Start: 06-02-2023 inject 2 mg by subcu taneous injection every week semaglutide (OZEMPIC) 2 mg/dose (8 mg/3 mL) pen injector Inject 2 mg subcutaneously one time a week. 3 mL 3 06/02/2023 Active Start: 06-02-2023 End: 09-22-2023 inject 2 mg by subcutaneous injection every week semaglutide (OZEMPIC) 2 mg/dose (8 mg/3 mL) pen injector Inject 2 mg subcutaneously one time a week. 3 mL 3 06/02/2023 09/22/2023 Active Comment on above: Inject 2 mg subcutan eously one time a week. Semaglutide,0.25 or 0.5MG/DOS, (Ozempic, 0.25 or 0.5 MG/DOSE,) 2 MG/3ML solution pen-injector (2 sources) Semaglutide,0.25 or 0.5MG/DOS, (Ozempic, 0.25 or 0.5 MG/DOSE,) 2 MG/3ML solution pen-injector Inject under the skin 1 (one) time per week 0 Active sertraline 50 mg oral tablet (20 sources) Serotonin Reuptake Inhibitor Start: 05-24-2023 sertraline (ZOLOFT) 50 mg tablet Take 25 mg by mouth once daily. 0 05/24/2023 Active Start: 05-24-2023 End: 06-23-2023 sertraline (ZOLOFT) 50 mg ta blet Start: 03-24-2023 take 1 tablet by nela th in the morning, then take 0.5 tablet by mouth once daily, then take 1 tablet by mouth once daily sertraline (Zoloft) 50 MG tablet Indications: Generalized anxiety disorder with panic attacks (CMS/HCC) Take 1 tablet (50 mg) by mouth in the morning. Start with 1/2 pill daily for 7 days then increase to 1 pill daily. 30 tablet 1 03/24/2023 Active Comment on above: Take 25 mg by mouth once daily. spironolactone 25 mg oral tablet (19 sources) Aldosterone Antagonist Start: 08-11-19 20 take 1 tablet by mouth in the morning spironolactone (ALDACTONE) 25 mg tablet Take 1 tablet (25 mg total) by mouth in the morning. 0 08/11/2019 Active valsartan 40 mg oral tablet (20 sources) Angiotensin 2 Receptor Genia Start: 04-07-20 End: 05-19-19 25 take 0.5 tablet by mouth once daily valsartan (DIOVAN) 40 mg tablet Indications: 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 , Essential hypertension Take 0.5 tablets by mouth once daily. 45 tablet 3 05/20/2023 05/19/2024 Active Start: 02-18-2023 End: 02-18-2024 take 1 tablet by mouth once daily valsartan (DIOVAN) 40 mg tablet Take 1 tablet by mouth once daily. 90 tablet 3 02/18/2023 02/18/2024 Active Comment on above: Take 1 tablet by nela th once daily. Take 0.5 tablets by mouth once daily. Completed/Discontinued Medications Medication Drug Class(es) Dates Sig (Normalized) Sig (Original) atorvastatin 80 mg oral tablet (20 sources) HMG-CoA Reductase Inhibitor Start: 11-07-2018 End: 06-11-2022 take 1 tablet by mouth once daily atorvastatin (LIPITOR) 80 mg tablet Take 80 mg by mouth once daily. 0 11/07/2018 06/11/2022 Discontinued Comment on above: Take 80 mg by mouth once daily. carvedilol 25 mg oral tablet (20 sources) alpha-Adrenergic Genia, beta-Adrenergic Genia Start: 02-25-2023 take 0.5 tablet by mouth twice daily carvedilol (COREG) 25 mg tablet Indications: Nonsustained ventricular tachycardia (HCC) , Systolic heart failure, unspecified HF chronicity (HCC) Take 0.5 tablets by mouth two times a day. 180 tablet 3 02/25/2023 Active Start: 02-27-2021 End: 12-05-2021 take 1 tablet by mouth twice daily carvedilol (COREG) 12.5 mg tablet Indications: Nonsustained ventricular tachycardia (HCC) , Systolic heart failure, unspecified HF chronicity (HCC) Take 1 tablet by mouth twice daily. 180 tablet 3 02/27/2021 12/05/2021 Discontinued Start: 06-13-2019 End: 02-24-2023 take 1 tablet by mouth in the morning carvediloL (COREG) 25 mg tablet Take 1 tablet (25 mg total) by mouth in the morning. 0 06/13/2019 Active Comment on above: Take 1 tablet by nela th twice daily. Take 0.5 tablets by mouth two times a day. clopidogrel 75 mg oral tablet (20 sources) P2Y12 Platelet Inhibitor Start: End: take 1 tablet by mouth once daily clopidogrel (PLAVIX) 75 mg tablet Take 1 tablet by mouth once daily. 90 tablet 3 02/18/2023 06/02/2023 Discontinued clopidogrel (BRITTANY VIX) 75 mg tablet Take by mouth every 24 hours. 0 Active Comment on above: Take 1 tablet by nela th once daily. Take by mouth every 24 hours. CPAP/BIPAP/OTHER (20 sources) Start: 11-04-2022 End: 08-03-2023 CPAP/BIPAP/OTHER Type .CPAPSettings into a note to see current settings/supplies/DME information. 1 Each 0 11/04/2022 08/03/2023 Discontinued Start: 11-04-2022 End: 03-21-2050 CPAP/BIPAP/OTHER Type .CPAPS ettings into a note to see current settings/supplies/DME information. 1 Each 0 11/04/2022 03/21/2050 Active Comment on above: Type .CPAPSettings i nto a note to see current settings/supplies/DME information. 0.5 ml dulaglutide 1.5 mg/ml auto-injector (20 sources) GLP-1 Receptor Agonist Start : 08-05 End: 09-04 inject 0.75 mg by subcutaneous injection every week dulaglutide (TRULICITY) 0.75 mg/0.5 mL pen injector Inject 0.75 mg subcutaneously one time a week for 28 days. 2 mL 11 08/07/2022 08/07/2022 Discontinued Start: 06-24-2022 inject 0.5 mL by sub cutaneous injection every week TRULICITY 0.75 mg/0.5 mL pen injector Inject 0.5 mL (0.75 mg total) under the skin once a week. 0 06/24/2022 Active Start: 06-23-2022 End: 07-21-2022 inject 0.75 mg by subcutaneous injection every week dulaglutide (TRULICITY) 0.75 mg/0.5 mL pen injector Inject 0.75 mg subcutaneously one time a week for 28 days. 2 mL 1 06/23/2022 Active Comment on above: Inject 0.75 mg subcu taneously one time a week for 28 days. perflutren lipid microspheres 1.3 mL in NaCl (PF) 0.9% 10 mL injection (DEFINITY) (20 sources) Start: 10-07-2023 End: 10-07-2023 perflutren lipid microspheres 1.3 mL in NaCl (PF) 0.9% 10 mL injection (DEFINITY) Start: 06-11-2022 End: 09-10-2023 perflutren lipid microsphere s 1.3 mL in NaCl (PF) 0.9% 10 mL injection (DEFINITY) Start: 09-04-2021 End: 12-04-2022 perflutren lipid microsphere s 1.3 mL in NaCl (PF) 0.9% 10 mL injection (DEFINITY) semaglutide (OZEMPIC) 1 mg/dose (4 mg/3 mL) pen (20 sources) Start: 10-26-2022 End: 06-02-2023 inject 1 mg by subcutaneous injection every week semaglutide (OZEMPIC) 1 mg/dose (4 mg/3 mL) pen Inject 1 mg subcutaneously once weekly 1 Each 10/26/2022 06/02/2023 Discontinued Start: 10-26-2022 inject 1 mg by subcu taneous injection every week semaglutide (OZEMPIC) 1 mg/dose (4 mg/3 mL) pen Inject 1 mg subcutaneously once weekly 1 Each 10/26/2022 Active Comment on above: Inject 1 mg subcutan eously once weekly 125 ml sodium chloride 9 mg/ml prefilled syringe (20 sources) Start: 10-07-2023 End: 10-07-2023 sodium chloride 0.9 % (flush) 10 mL (BD POSIFLUSH) Start: 09-04-2021 End: 09-10-2023 sodium chloride 0.9 % (flush ) 10 mL (BD POSIFLUSH) Problems Active Problems Problem Classification Problem Date Documented Da te Episodic/Chronic Abdominal pain (2 sources) Left upper quadrant pain; Translations: [Abdominal pain] Onset: 11-24-2023 Episodic Anxiety disorders (2 sources) Generalized anxiety disorder; Translations: [Generalized anxiety disorder] Onset: 03-24-2023 03-24-2023 Chronic Aortic and peripheral arterial embolism or thrombosis (20 sources) Occlusion of aortoiliac artery; Translations: [Other arterial embolism and thrombosis of abdominal aorta] Onset: 01-02-2020 01-03-2020 Chronic Cardiac dysrhythmias (20 sources) Nonsustained ventricular tachycardia ; Translations: [Ventricular tachycardia] Onset: 12-22-2018 12-22-2018 Chronic Cardiac dysrhythmias (1 source) Sinus bradycardia; Translations: [Bradycardia, unspecified] 03-08-2023 Episodic Chronic kidney disease (1 source) Chronic kidney disease stage 3B ; Translations: [Stage 3b chronic kidney disease (HCC)] 10-11-2023 Chronic Conduction disorders (20 sources) Left bundle branch block; Translations: [Left bundle-branch block, unspecified] Onset: 05-31-2023 05-31-2023 Chronic Congestive heart failure; nonhypertensive (20 sources) Systolic heart failure; Translations: [Unspecified systolic (congestive) heart failure] Onset: 12-22-2018 01-08-2020 Chronic Coronary atherosclerosis and other heart disease (20 sources) Disorder of coronary artery; Translations: [Atherosclerotic heart disease of [place] coronary artery without angina pectoris] Onset: 06-07-2019 06-08-2019 Chronic Diabetes mellitus with complications (20 sources) Hyperlipidemia; Translations: [Type 2 diabetes mellitus with other specified complication] Onset: 11-30-2017 Chronic Diabetes mellitus without complication (20 sources) Type 2 diabetes mellitus without complications; Translations: [Diabetes mellitus] Onset: 08-17-2016 01-08-2020 Chronic Disorders of lipid metabolism (20 sources) Hyperlipidemia, unspecified; Translations: [Mixed hyperlipidemia] Onset: 11-18-2018 Chronic Diverticulosis and diverticulitis (20 sources) Diverticulosis of colon; Translations: [Diverticulosis of large intestine without perforation or abscess without bleeding] Onset: 11-30-2017 10-26-2019 Chronic Essential hypertension (20 sources) Essential hypertension; Translations: [Essential (primary) hypertension] Onset: 11-30-2017 01-08-2020 Chronic Gout and other crystal arthropathies (20 sources) Gout; Translations: [Gout, unspecified] Onset: 11-30-2017 10-26-2019 Chronic Heart valve disorders (2 sources) Non-rheumatic mitral regurgitation ; Translations: [Nonrheumatic mitral (valve) insufficiency] 06-17-2023 Chronic Nonspecific chest pain (2 sources) Chest discomfort; Translations: [Other chest pain] Episodic Nutritional deficiencies (1 source) Vitamin D deficiency; Translations: [Vitamin D deficiency, unspecified] 10-11-2023 Chronic Osteoarthritis (20 sources) Primary coxarthrosis, bilateral; Translations: [Bilateral primary osteoarthritis of hip] Onset: 06-13-2020 06-13-2020 Chronic Other aftercare (1 source) terminal superintendent (current) use of insulin; Translations: [Type 2 diabetes mellitus with other circulatory complication, with long-term current use of insulin (HCC)] Onset: 02-16-2023 Episodic Other and ill-defined heart disease (19 sources) Left ventricular cardiac dysfunction; Translations: [Heart disease, unspecified] Onset: 07-01-2023 07-01-2023 Chronic Other circulatory disease (1 source) Peripheral vascular disease; Translations: [Other specified peripheral vascular diseases] Chronic Other circulatory disease (5 sources) History of aortofemoral bypass surgery; Translations: [Presence of other vascular implants and grafts] Chronic Other circulatory disease (20 sources) History of angioplasty; Translations: [Peripheral vascular angioplasty status with implants and grafts] Onset: 02-17-2023 02-17-2023 Chronic Other circulatory disease (20 sources) Peripheral arterial occlusive disease; Translations: [Disorder of arteries and arterioles, unspecified] Onset: 11-30-2017 10-26-2019 Chronic Other circulatory disease (1 source) Low blood pressure; Translations: [Hypotension, unspecified] 03-08-2023 Episodic Other diseases of bladder and urethra (1 source) Overactive bladder; Translations: [Overactive bladder] Chronic Other lower respiratory disease (3 sources) Dyspnea; Translations: [Dyspnea, unspecified] Episodic Other nervous system disorders (1 source) Other chronic pain; Translations: [Other chronic pain] Onset: 10-25-2023 Chronic Other nervous system disorders (1 source) Unresponsive ; Translations: [Other symptoms and signs involving cognitive functions and awareness] 03-08-2023 Episodic Other non-traumatic joint disorders (1 source) Pain in left shoulder; Translations: [Pain in left shoulder] Onset: 10-25-2023 Episodic Other nutritional; endocrine; and metabolic disorders (7 sources) Hypomagnesemia; Translations: [Hypomagnesemia] Chronic Other nutritional; endocrine; and metabolic disorders (20 sources) Obesity; Translations: [Other obesity due to excess calories] Onset: 08-17-2016 11-18-2018 Chronic Other nutritional; endocrine; and metabolic disorders (20 sources) Obesity caused by energy imbalance; Translations: [Other obesity due to excess calories] Onset: 11-18-2018 11-18-2018 Chronic Other nutritional; endocrine; and metabolic disorders (2 sources) Hyperuricemia; Translations: [Hyperuricemia without signs of inflammatory arthritis and tophaceous disease] Onset: 04-08-2023 04-08-2023 Episodic Other screening for suspected conditions (not mental disorders or infectious disease) (7 sources) Patient encounter status; Translations: [Encounter for screening for cardiovascular disorders] Onset: 02-16-2023 09-12-2020 Episodic Other skin disorders (4 sources) Rash and other nonspecific skin eruption; Translations: [RASH OTH NONSPECIFIC SKIN ERUPTION] Onset: 07-15-2021 Episodic Abbi-; endo-; and myocarditis; cardiomyopathy (except that caused by tuberculosis or sexually transmitted disease) (20 sources) Cardiomyopathy; Translations: [Cardiomyopathy, unspecified] Onset: 06-07-2019 06-07-2019 Chronic Peripheral and visceral atherosclerosis (20 sources) Intermittent claudication; Translations: [Peripheral vascular disease, unspecified] Onset: 11-18-2018 11-18-2018 Chronic Residual codes; unclassified (11 sources) Obstructive sleep apnea syndrome; Translations: [Obstructive sleep apnea (adult) (pediatric)] Chronic Residual codes; unclassified (1 source) Pain, unspecified; Translations: [Pain, unspecified] Onset: 11-18-2023 Episodic Spondylosis; intervertebral disc disorders; other back problems (20 sources) Lumbar spondylosis; Translations: [Spondylosis without myelopathy or radiculopathy, lumbar region] Onset: 08-17-2016 08-17-2016 Chronic Syncope (1 source) Syncope and collapse; Translations: [Syncope and collapse] Onset: 02-24-2023 Episodic Thyroid disorders (2 sources) Thyroid nodule; Translations: [Nontoxic single thyroid nodule] Onset: 04-06-2023 04-06-2023 Chronic Unclassified (1 source) Established Patient Onset: 08-03-2023 Past or Other Problems Problem Classification Problem Date Documented Da te Episodic/Chronic Acute and unspecified renal failure (20 sources) Acute kidney failure, unspecified; Translations: [Acute renal failure syndrome] Onset: 02-24-2023 06-15-2023 Episodic Malaise and fatigue (4 sources) Fatigue; Translations: [Other fatigue] Onset: 05-25-2023 Episodic Other circulatory disease (20 sources) Carotid bruit; Translations: [Other specified symptoms and signs involving the circulatory and respiratory systems] Onset: 12-22-2018 12-22-2018 Episodic Other connective tissue disease (20 sources) Tibialis posterior tendinitis ; Translations: [Posterior tibial tendinitis, unspecified leg] Onset: 09-19-2015 09-19-2015 Episodic Other connective tissue disease (19 sources) Bilateral trochanteric bursitis; Translations: [Trochanteric bursitis, right hip] Onset: 03-01-2018 10-26-2019 Episodic Other lower respiratory disease (1 source) Shortness of breath; Translations: [Shortness of breath] Onset: 05-25-2023 Episodic Other non-traumatic joint disorders (20 sources) Chronic ankle pain; Translations: [Pain in right ankle and joints of right foot] Onset: 09-19-2015 09-19-2015 Episodic Other non-traumatic joint disorders (20 sources) Chronic pain of right upper limb; Translations: [Pain in right shoulder] Onset: 06-01-2017 06-01-2017 Episodic Spondylosis; intervertebral disc disorders; other back problems (20 sources) Disorder of sacrum; Translations: [Sacrococcygeal disorders, not elsewhere classified] Onset: 08-17-2016 02-20-2021 Episodic Results Test Name Value Interpretation Reference Range Facility XR SHOULDER LT MIN 2 VWSon 0 10-28-2023 XR SHOULDER LT MIN 2 VWS XR SHOULDER LT MIN 2 VWS Clinical history: Left shoulder pain Left shoulder: 10/25/2023 COMPARISON: None FINDINGS: 3 views the shoulder were obtained. Glenohumeral alignment is anatomic. Articular surfaces are intact. Mild acromioclavicular degenerative changes are present. Evaluation of the left upper hemithoracic structures in this inhibited by the overlying pacemaker device. IMPRESSION: No acute osseous abnormality evident radiographically. Mild acromioclavicular degenerative changes. Finalized by Oskar Ramirez MD on 10/28/2023 9:30 AM Normal [facility] CNOVon 10-21-2023 CNOV Normal [facility] CARDIAC IMPLANTABLE DEVICE C HECKon 10-17-2023 Atrial Tachy Statistic AT/AF [place] Percent 0.00 [facility] Battery Remaining Longevity 127.0 [facility] Battery PRODUCT SAFETY COORDINATOR Trigger 2.800 [facility] Battery Status OK [facility] Battery Voltage 3.080 [facility] Ron Setting AT Mode Switch Rate 171 [facility] Ron Setting Lower Rate Limit 60 [facility] Ron Setting Maximum Sensor Rate 120 [facility] Ron Setting Maximum Tracking Rate 120 [facility] Ron Setting Mode (NBG Code) DDD [facility] Ron Setting PAV Delay 100 [facility] Ron Setting ASHLEY Delay 70 [facility] Ron Statistic RA Percent Paced 0.25 [facility] Capacitor Charge Time 3.900 [facility] Date Time Interrogation Session [id number] [facility] Implantable Lead Location Left Ventricle [facility] Implantable Lead Model 5076 CapsureFix Novus MRI [facility] Implantable Lead Model 5076 CapSureFix Novus [facility] Implantable Lead Model 4798 Attain Stability Quad MRI SureScan [facility] Implantable Lead Serial Number [id number] [facility] Implantable Lead Serial Number [id number] [facility] Implantable Lead Serial Number [id number] [facility] Implantable Lead Serial Number TDL [facility] Implantable Lead Serial Number [id number] [facility] Implantable Pulse Generator Implant Date [id number] [facility] Implantable Pulse Generator Driver Guide Medtronic [facility] Implantable Pulse Generator Model [place] XT HF Quad [id number] [facility] Implantable Pulse Generator Serial Number [id number] [facility] Implantable Pulse Generator Type Cardiac Resynchronization Therapy - Defibrillator [facility] Lead Channel Impedance Value 475 [facility] Lead Channel Impedance Value 494 [facility] Lead Channel Impedance Value 361 [facility] Lead Channel Pacing Threshold Amplitude 1.380 [facility] Lead Channel Pacing Threshold Amplitude 0.750 [facility] Lead Channel Pacing Threshold Amplitude 0.630 [facility] Lead Channel Sensing Intrinsic Amplitude 2.800 [facility] Lead Channel Sensing Intrinsic Amplitude 13.000 [facility] Lead Channel Setting Pacing Amplitude 1.250 [facility] Rate 1 188 [facility] Rate 1 150 [facility] RV HV Impedance 62 [facility] Therapies 3 x iATP, 40J, 40J, 40J, 40J, 40J, 40J [facility] Therapy Statistic Recent ATP Delivered 0 [facility] Statistic Recent Shocks Aborted 0 [facility] Ventricular chambers paced during BERRY GROWER pacing. LV [facility] Zone ID 0 [facility] Zone ID 1 [facility] Zone ID 2 [facility] Zone ID 3 [facility] Zone Setting Status On [facility] Zone Setting Status Monitor [facility] Zone Setting Type Category VF [facility] Zone Setting Type Category FVT [facility] Zone Setting Type Category VT [facility] Zone Setting Type Category VT Monitor [facility] Title: Normal In-Office: No Events * Normal Device Function * Alerts or events: None * Battery: OK, 10.58 yrs * Sensing, impedance and thresholds reviewed and tested * Presenting Rhythm: /LV paced * Underlying Rhythm: Sinus rhythm * Heart Rate Histograms reviewed * Pacing and Detection Parameters were evaluated NOTE TO PROVIDERS: Cardiac Implanted Devices Flowsheets contain detailed Programming and Evaluation data. Full Docket/PDF found below under Scanned Documents . JAIRO CARDIAC Afshan Redman MD - 10/17/2023 Title: Normal In-Office: No Events * Normal Device Function * Alerts or events: None * Battery: OK, 10.58 yrs * Sensing, impedance and thresholds reviewed and tested * Presenting Rhythm: /LV paced * Underlying Rhythm: Sinus rhythm * Heart Rate Histograms reviewed * Pacing and Detection Parameters were evaluated NOTE TO PROVIDERS: Cardiac Implanted Devices Flowsheets contain detailed Programming and Evaluation data. Full Docket/PDF found below under Scanned Documents . [facility] No Panel Informationon 10-16 Implantable Lead Connection Status Connected [facility] Implantable Lead Implant Date [id number] [facility] Implantable Lead Location Right Atrium [facility] Implantable Lead Location Right Ventricle [facility] Implantable Lead Driver Guide Medtronic [facility] Implantable Lead Model [id number] Sprint Quattro Secure S [facility] Lead Channel Measurements Date and Time 2023-10-07 [facility] Lead Channel Pacing Threshold Pulse Width 0.4 [facility] Lead Channel Setting Pacing Amplitude 2.000 [facility] Lead Channel Setting Pacing Pulse Width 0.4 [facility] Lead Channel Setting Sensing Sensitivity 0.30 [facility] Zone Setting Status Off [facility] CNOVon 10-11-2023 CNOV Normal [facility] CNPNon 10-11-2023 CNPN Normal [facility] Prot/Creat Uron 10-11-2023 Protein/Creatinine (U) [Mass ratio] 0.78 mg/mg High <0.15 [facility] Comment on above: Order Comment: Speci men Type: URINE SPECIMENOrdering Facility: [facility] Address: [address] [place] [address] Result Comment: Adul t Proteinuria Categories:<0.15 mg/mg is considered normal to mildly increased0.15 - 0.50 mg/mg is considered moderately increased>0.50 mg/mg is considered severely increasedKDIGO. (2013). KDIGO 2012 Clinical Practice Guideline for the Evaluation and Management of Chronic Kidney Disease. Official Journal of the International Society of Nephrology, 3(1), 1-150. Performed By: #### 2 890-2 ####[facility] LABCLIA [id number] [facility] [id number] [address] [place] Protein/Creatinine (U) [Mass ratio]on 10-11-2023 Creatinine (U) [Mass/Vol] 59.9 mg/dL Normal 20.0-300.0 [facility] Comment on above: Order Comment: Speci men Type: URINE SPECIMENOrdering Facility: [facility] Address: [address] [place] [address] Performed By: #### 2 890-2 ####[facility] LABCLIA [id number] [place] [address] [place] Protein (U) [Mass/Vol] 47 mg/dL High 0-20 [facility] Comment on above: Order Comment: Speci men Type: URINE SPECIMENOrdering Facility: [facility] Address: [address] [place] [address] [place] [address] Performed By: #### 2 890-2 ####[facility] LABCLIA [id number] [place] [address] [place] UA DIP, URINE (POC)on 2023 BILIRUBIN UA (POCT) Negative Negative [facility] CLARITY UA (POCT) Clear [facility] COLOR UA (POCT) Yellow [facility] GLUCOSE UA (POCT) 500 mg/dL Abnormal Negative [facility] Hemoglobin Ql (U) Small Abnormal Negative [facility] Interpretation and review of laboratory results Abnormal [facility] KETONE UA (POCT) Negative Negative mg/dL [facility] LEUKOCYTES UA (POCT) Negative [facility] NITRITE UA (POCT) Negative Negative [facility] PH UA (POCT) 6.0 4.5 - 8.0 [facility] Protein Ql (U) 100 mg/dL Abnormal Negative [facility] SPECIFIC GRAVITY UA (POCT) 1.020 1.005 - 1.030 [facility] UROBILINOGEN UA (POCT) 0.2 Normal E.U./dL [facility] Location:[facility], [address] [facility], [place], [place], [address] [facility] POINT [facility] CARE [facility] CNOVon 10-07-2023 CNOV Normal [facility] CNOV Normal [facility] CNOV Normal [facility] [id number] 10-07-2023 ECG01 Normal [facility] ECHOon 10-07-2023 CONCLUSIONS: - Technically difficult exam due to suboptimal positioning. - Exam indication: Evaluation of known heart failure to guide therapy - The left ventricle is severely dilated. There is mild concentric left ventricular hypertrophy. Left ventricular systolic function is severely decreased. EF = 25 5% (visual est.) Definity contrast used for endocardial border detection. - The right ventricle is normal in size. Right ventricular systolic function is normal. - The left atrial cavity is moderately dilated. - There is moderate (2+ - 3+) holosystolic mitral valve regurgitation due to apical tethering of normal mitral leaflet caused by LV enlargement likely related to nonischemic cardiomyopathy. Regurgitant orifice area (PISA) is 0.17 cm . - Exam was compared with the prior echocardiographic exam performed on 05/25/23. There is improvement in RV function, TR and estimated RVSP today. Prior LV EF 21%. 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 Previous cardiovascular interventions: ICD implant (06/2023) Primary rhythm: V. Paced. Height: 167.60 cm BSA: 1.82 m Weight: 70.80 kg BMI: 25.2 kg/m Heart rate 83 bpm Blood pressure 129/81 mmHg Technically difficult exam due to suboptimal positioning. Color Doppler was utilized to interrogate the cardiac valves assessed and spectral Doppler was utilized to determine the flow velocities and pressure gradients reported in this exam. MEASUREMENTS: Value Indexed Normal Max aortic dimension 3.2 cm Ao < 3.8 Left atrial volume 78 ml (biplane A-L) 43 ml/m Rossy <= 34 LV ID (diastole) 5.4 cm (2D) 2.97 cm/m LV ID (systole) 4.4 cm (2D) 2.42 cm/m IVS, leaflet tips 1.0 cm (2D) Posterior wall thickness 1.3 cm (2D) Left ventricular mass 249 g (2D) 137 g/m Ejection Fraction 25 % (visual est.) EF > 54 FINDINGS: LEFT VENTRICLE The left ventricle is severely dilated. There is mild concentric left ventricular hypertrophy. Left ventricular systolic function is severely decreased. Left ventricular diastolic function was not evaluated due to >2+ MR and pacing. Definity contrast used for endocardial border detection. Wall Motion: The mid and distal anterior wall, entire septum, entire apex, mid and distal inferior wall, and mid anterolateral segment are severely hypokinetic. The posterior wall, basal anterolateral segment, basal anterior segment, and basal inferior segment are mildly hypokinetic. RIGHT VENTRICLE The right ventricle is normal in size. Pacer wires are noted in the right ventricle. Right ventricular systolic function is normal. RV systolic tissue Doppler velocity is 11.4 cm/s. Tricuspid annular displacement is 1.7 cm. Estimated right ventricular systolic pressure is likely underestimated due to a weak or incomplete tricuspid regurgitation signal and is, at least, 24 mmHg consistent with normal pulmonary artery pressures. Estimated right atrial pressure is 3 mmHg based on IVC assessment. LEFT ATRIUM The left atrial cavity is moderately dilated. Pulmonary Veins: The pulmonary venous pattern showed normal systolic flow. RIGHT ATRIUM The right atrial cavity is normal in size. Pacer wires are noted in the right atrium. Inferior Vena Cava: The inferior vena cava appears normal measuring 1.3 cm. The vessel decreases greater than 50 percent with inspiration. MITRAL VALVE There is mild mitral annular calcification observed posterior. There is moderate (2+ - 3+) holosystolic mitral valve regurgitation due to apical tethering of normal mitral leaflet caused by LV enlargement likely related to nonischemic cardiomyopathy. There is mild thickening of the anterior mitral leaflet. Regurgitant orifice area (PISA) is 0.17 cm . The peak mitral valve gradient is 7 mmHg. The mean mitral valve gradient is 3 mmHg. TRICUSPID VALVE There is trace tricuspid valve regurgitation. There is mild thickening. AORTIC VALVE There is no aortic valve regurgitation. Tricuspid aortic valve. There is mild thickening. The peak gradient is 5 mmHg (peak velocity = 114.0 cm/s). PULMONIC VALVE There is trace pulmonic valve regurgitation. There is no thickening. AORTA The visualized aorta is normal in size. Measurements - Mid ascending aorta 3.2 cm. PULMONARY ARTERIES The main pulmonary artery is normal in size. The main pulmonary artery diameter is 2.8 cm (diastolic). PERICARDIUM There is an epicardial fat pad. [facility] CNPNon 09-23-2023 CNPN Normal [facility] Basic metabolic 2000 panelon 09-22-2023 Anion gap [Moles/Vol] 9 mmol/L Normal 8-15 [facility] Comment on above: Order Comment: Speci men Type: BLOOD SPECIMENOrdering Facility: [facility] Address: [address] [place] [address] Performed By: #### 2 4321-2 ####[facility] LABCLIA [id number] [place] [address] Calcium [Mass/Vol] 10.0 mg/dL Normal 8.5-10.2 [facility] Comment on above: Order Comment: Speci men Type: BLOOD SPECIMENOrdering Facility: [facility] Address: [address] [place] [address] Performed By: #### 2 4321-2 ####[facility] LABCLIA [id number] [place] [address] Chloride [Moles/Vol] 105 mmol/L Normal 98-[address] [facility] Comment on above: Order Comment: Speci men Type: BLOOD SPECIMENOrdering Facility: [facility] Address: [address] [place] [address] Performed By: #### 2 4321-2 ####[facility] LABCLIA [id number] [place] [address] CO2 [Moles/Vol] 27 mmol/L Normal 22-30 [facility] Comment on above: Order Comment: Speci men Type: BLOOD SPECIMENOrdering Facility: [facility] Address: [address] [place] [address] Performed By: #### 2 4321-2 ####[facility] LABCLIA [id number] [place] [address] Creatinine [Mass/Vol] 1.39 mg/dL High 0.58-0.96 [facility] Comment on above: Order Comment: Speci men Type: BLOOD SPECIMENOrdering Facility: [facility] Address: [address] [place] [address] Performed By: #### 2 4321-2 ####[facility] LABCLIA [id number] [place] [address] Creatinine and Glomerular filtration rate.predicted panel (S/P/Bld) 39 mL/min/1.73m??? Low >=60 [facility] Comment on above: Order Comment: Speci men Type: BLOOD SPECIMENOrdering Facility: [facility] Address: [address] [place] [address] Result Comment: Tanisha mated Glomerular Filtration Rate (eGFR) is calculated using the 2020 CKD-EPI creatinine equation. This equation utilizes serum creatinine, sex, and age as parameters. The creatinine assay has traceable calibration to isotope dilution-mass spectrometry. Refer to KDIGO guidelines for clinical interpretation. In patients with unstable renal function, e.g. those with acute kidney injury, the eGFR may not accurately reflect actual GFR. Performed By: #### 2 4321-2 ####[facility] LABCLIA [id number] [place] [address] Glucose [Mass/Vol] 108 mg/dL High 74-99 [facility] Comment on above: Order Comment: Speci men Type: BLOOD SPECIMENOrdering Facility: [facility] Address: [address] [place] [address] Result Comment: The [place] Diabetes [employer] (ADA) provides guidance for cutoff values for fasting glucose and random glucose. The ADA defines fasting as no caloric intake for at least 8 hours. Fasting plasma glucose results between 100 to 125 mg/dL indicate increased risk for diabetes (prediabetes).Fasting plasma glucose results greater than or equal to 126 mg/dL meet the criteria for diagnosis of diabetes. In the absence of unequivocal hyperglycemia, results should be confirmed by repeat testing. In a patient with classic symptoms of hyperglycemia or hyperglycemic crisis, random plasma glucose results greater than or equal to 200 mg/dL meet the criteria for diagnosis of diabetes.Reference: Standards of Medical Care in Diabetes 2016, [place] [employer]. Diabetes Care. 2016.39(Suppl 1). Performed By: #### 2 4321-2 ####[facility] LABCLIA [id number] [place] [address] Potassium [Moles/Vol] 4.7 mmol/L Normal 3.7-5.1 [facility] Comment on above: Order Comment: Speci men Type: BLOOD SPECIMENOrdering Facility: [facility] Address: [address] [place] [address] Performed By: #### 2 4321-2 ####[facility] LABCLIA [id number] [place] [address] Sodium [Moles/Vol] 141 mmol/L Normal 136-144 [facility] Comment on above: Order Comment: Speci men Type: BLOOD SPECIMENOrdering Facility: [facility] Address: [address] [place] [address] Performed By: #### 2 4321-2 ####[facility] LABCLIA [id number] [place] [address] Urea nitrogen [Mass/Vol] 36 mg/dL High 7-21 [facility] Comment on above: Order Comment: Speci men Type: BLOOD SPECIMENOrdering Facility: [facility] Address: [address] [place] [address] Performed By: #### 2 4321-2 ####[facility] LABCLIA [id number] [place] [address] Basic metabolic 2000 panelon 08-11-2023 Anion gap [Moles/Vol] 7 mmol/L Low 9-18 [facility] Comment on above: Order Comment: Speci men Type: BLOOD SPECIMENOrdering Facility: [facility] Address: [address] [place] [address] Performed By: #### 2 4321-2 ####[facility] LABCLIA [id number] [place] [address] Calcium [Mass/Vol] 9.3 mg/dL Normal 8.5-10.2 [facility] Comment on above: Order Comment: Speci men Type: BLOOD SPECIMENOrdering Facility: [facility] Address: [address] [place] [address] Performed By: #### 2 4321-2 ####[facility] LABCLIA [id number] [place] [address] Chloride [Moles/Vol] 110 mmol/L High 97-[address] [facility] Comment on above: Order Comment: Speci men Type: BLOOD SPECIMENOrdering Facility: [facility] Address: [address] [place] [address] Performed By: #### 2 4321-2 ####[facility] LABCLIA [id number] [place] [address] CO2 [Moles/Vol] 24 mmol/L Normal 22-30 [facility] Comment on above: Order Comment: Speci men Type: BLOOD SPECIMENOrdering Facility: [facility] Address: [address] [place] [address] Performed By: #### 2 4321-2 ####[facility] LABCLIA [id number] [place] [address] Creatinine [Mass/Vol] 1.44 mg/dL High 0.58-0.96 [facility] Comment on above: Order Comment: Speci men Type: BLOOD SPECIMENOrdering Facility: [facility] Address: [address] [place] [address] Performed By: #### 2 4321-2 ####[facility] LABCLIA [id number] [place] [address] Creatinine and Glomerular filtration rate.predicted panel (S/P/Bld) 38 mL/min/1.73m??? Low >=60 [facility] Comment on above: Order Comment: Speci men Type: BLOOD SPECIMENOrdering Facility: [facility] Address: [address] [place] [address] Result Comment: Tanisha mated Glomerular Filtration Rate (eGFR) is calculated using the 2020 CKD-EPI creatinine equation. This equation utilizes serum creatinine, sex, and age as parameters. The creatinine assay has traceable calibration to isotope dilution-mass spectrometry. Refer to KDIGO guidelines for clinical interpretation. In patients with unstable renal function, e.g. those with acute kidney injury, the eGFR may not accurately reflect actual GFR. Performed By: #### 2 4321-2 ####[facility] LABIA [id number] [place] [address] Glucose [Mass/Vol] 101 mg/dL High 74-99 [facility] Comment on above: Order Comment: Speci men Type: BLOOD SPECIMENOrdering Facility: [facility] Address: [address] [place], [place] [address] Result Comment: The [place] Diabetes Association (ADA) provides guidance for cutoff values for fasting glucose and random glucose. The ADA defines fasting as no caloric intake for at least 8 hours. Fasting plasma glucose results between 100 to 125 mg/dL indicate increased risk for diabetes (prediabetes).Fasting plasma glucose results greater than or equal to 126 mg/dL meet the criteria for diagnosis of diabetes. In the absence of unequivocal hyperglycemia, results should be confirmed by repeat testing. In a patient with classic symptoms of hyperglycemia or hyperglycemic crisis, random plasma glucose results greater than or equal to 200 mg/dL meet the criteria for diagnosis of diabetes.Reference: Standards of Medical Care in Diabetes 2016, [place] [employer]. Diabetes Care. 2016.39(Suppl 1). Performed By: #### 2 4321-2 ####[facility] LABCLIA [id number] [place] [address] Potassium [Moles/Vol] 4.5 mmol/L Normal 3.7-5.1 [facility] Comment on above: Order Comment: Gissellei lorrie Type: BLOOD SPECIMENOrdering Facility: [facility] Address: [address] [place] [address] Performed By: #### 2 4321-2 ####[facility] LABCLIA [id number] [place] [address] Sodium [Moles/Vol] 141 mmol/L Normal 136-144 [facility] Comment on above: Order Comment: [place] andrew Type: BLOOD SPECIMENOrdering Facility: [facility] Address: [address] [place] [address] Performed By: #### 2 4321-2 ####[facility] LABCLIA [id number] [place] [address] Urea nitrogen [Mass/Vol] 30 mg/dL High 7-21 [facility] Comment on above: Order Comment: Speci men Type: BLOOD SPECIMENOrdering Facility: [facility] Address: [address] [place] [address] Performed By: #### 2 4321-2 ####[facility] LABCLIA [id number] [place] [address] ALBUMIN/CREATININE RATIO, UR INEon 07-27-2023 Albumin DL <= 20 mg/L (U) [Mass/Vol] 91.1 mg/L Normal [facility] Comment on above: Order Comment: Speci men Type: URINE SPECIMENOrdering Facility: [facility] Address: [address] [place] [address] Performed By: #### U ACR ####[facility] LABIA [id number] [place] [address] [place] Albumin/Creatinine (U) [Mass ratio] 90 mg/g High <30 [facility] Comment on above: Order Comment: Speci men Type: URINE SPECIMENOrdering Facility: [facility] Address: [address] [place] [address] Result Comment: Adul t Male and Female Nephrotic Criteria:<30 mg/g is considered normal to mildly gooravdnp73-246 mg/g is considered moderately increased>300 mg/g is considered severely increasedKDIGO. (2013). KDIGO 2012 Clinical Practice Guideline for the Evaluation and Management of Chronic Kidney Disease. Official Journal of the International Society of Nephrology, 3(1), 1-150. Performed By: #### U ACR ####[facility] LABCLIA [id number] [place] [id number] [place] Creatinine (U) [Mass/Vol] 101.7 mg/dL Normal 20.0-300.0 [facility] Comment on above: Order Comment: Speci men Type: URINE SPECIMENOrdering Facility: [facility] Address: [address] [place] [address] Performed By: #### U ACR ####[facility] LABCLIA [id number] JEDRuel [facility] [place] [address] [place] CNOVon 07-27-2023 CNOV Normal [facility] Basic metabolic 2000 panelon 07-26-2023 Anion gap [Moles/Vol] 15 mmol/L Normal 9-18 [facility] Comment on above: Order Comment: Speci men Type: BLOOD SPECIMENOrdering Facility: [facility] Address: [address] [place], [place] [address] Performed By: #### 2 4321-2 ####[facility] LABCLIA [id number] [place] [address] Calcium [Mass/Vol] 10.0 mg/dL Normal 8.5-10.2 [facility] Comment on above: Order Comment: Speci men Type: BLOOD SPECIMENOrdering Facility: [facility] Address: [address] [place], [place] [address] Performed By: #### 2 4321-2 ####[facility] LABCLIA [id number] [place] [address] Chloride [Moles/Vol] 103 mmol/L Normal 97-[address] [facility] Comment on above: Order Comment: Speci men Type: BLOOD SPECIMENOrdering Facility: [facility] Address: [address] [place], [place] [address] Performed By: #### 2 4321-2 ####[facility] LABCLIA [id number] [place] [address] CO2 [Moles/Vol] 23 mmol/L Normal 22-30 [facility] Comment on above: Order Comment: Speci men Type: BLOOD SPECIMENOrdering Facility: [facility] Address: [address] [place] [id number] Performed By: #### 2 4321-2 ####[facility] LABCLIA [id number] [place] [address] Creatinine [Mass/Vol] 1.85 mg/dL High 0.58-0.96 [facility] Comment on above: Order Comment: [place] andrew Type: BLOOD SPECIMENOrdering Facility: [facility] Address: [address] [place] [address] Performed By: #### 2 4321-2 ####[facility] LABCLIA [id number] [place] [address] Creatinine and Glomerular filtration rate.predicted panel (S/P/Bld) 28 mL/min/1.73m??? Low >=60 [facility] Comment on above: Order Comment: [place] andrew Type: BLOOD SPECIMENOrdering Facility: [facility] Address: [address] [place] [address] Result Comment: Tanisha mated Glomerular Filtration Rate (eGFR) is calculated using the 2020 CKD-EPI creatinine equation. This equation utilizes serum creatinine, sex, and age as parameters. The creatinine assay has traceable calibration to isotope dilution-mass spectrometry. Refer to KDIGO guidelines for clinical interpretation. In patients with unstable renal function, e.g. those with acute kidney injury, the eGFR may not accurately reflect actual GFR. Performed By: #### 2 4321-2 ####[facility] LABCLIA [id number] [place] [address] Glucose [Mass/Vol] 113 mg/dL High 74-99 [facility] Comment on above: Order Comment: [place] andrew Type: BLOOD SPECIMENOrdering Facility: [facility] Address: [address] [place] [address] Result Comment: The [place] Diabetes Association (ADA) provides guidance for cutoff values for fasting glucose and random glucose. The ADA defines fasting as no caloric intake for at least 8 hours. Fasting plasma glucose results between 100 to 125 mg/dL indicate increased risk for diabetes (prediabetes).Fasting plasma glucose results greater than or equal to 126 mg/dL meet the criteria for diagnosis of diabetes. In the absence of unequivocal hyperglycemia, results should be confirmed by repeat testing. In a patient with classic symptoms of hyperglycemia or hyperglycemic crisis, random plasma glucose results greater than or equal to 200 mg/dL meet the criteria for diagnosis of diabetes.Reference: Standards of Medical Care in Diabetes 2016, [place] [employer]. Diabetes Care. 2016.39(Suppl 1). Performed By: #### 2 4321-2 ####[facility] LABCLIA [id number] [place] [address] Potassium [Moles/Vol] 4.8 mmol/L Normal 3.7-5.1 [facility] Comment on above: Order Comment: Speci men Type: BLOOD SPECIMENOrdering Facility: [facility] Address: [address] [place] [address] Performed By: #### 2 4321-2 ####[facility] LABCLIA [id number] [place] [address] Sodium [Moles/Vol] 141 mmol/L Normal 136-144 [facility] Comment on above: Order Comment: Speci men Type: BLOOD SPECIMENOrdering Facility: [facility] Address: [address] [place] [id number] Performed By: #### 2 4321-2 ####[facility] LABCLIA [id number] [place] [address] Urea nitrogen [Mass/Vol] 37 mg/dL High 7-21 [facility] Comment on above: Order Comment: Speci men Type: BLOOD SPECIMENOrdering Facility: [facility] Address: [address] [place] [address] Performed By: #### 2 4321-2 ####[facility] LABCLIA [id number] [place] [address] NT-proBNP [facility] 07-25 Natriuretic peptide.B prohormone N-Terminal [Mass/Vol] 1904 pg/mL High <450 [facility] Comment on above: Order Comment: Speci men Type: BLOOD SPECIMENOrdering Facility: [facility] Address: [address] [place] [id number] Performed By: #### 3 3762-6 ####[facility] LABCLIA [id number] [facility] [id number] [id number] [place] CNOVon 07-15-2023 CNOV Normal [facility] [id number] 07-15-2023 ECG01 Normal [facility] ICD CLINIC CHECKon 4 AV Delay Adaptive Paced Minimum (ms) 140 ms [facility] AV Delay Adaptive Sensed Minimum (ms) 100 ms [facility] AV Delay Adaptive Status ENABLED [facility] Battery Voltage 3.11 V [facility] Ron LV Pacing Amplitude (volts) 2.0 V [facility] Ron LV Pacing Polarity BI [facility] Ron LV Pacing Pulse Width (ms) 0.4 ms [facility] Ron RA Pacing Amplitude (volts) 3.5 V [facility] Ron RA Pacing Polarity BI [facility] Ron RA Pacing Pulse Width (ms) 0.4 ms [facility] Ron RA Sensing Amplitude (mvolts) 0.3 mV [facility] Ron RA Sensing Blanking Period (ms) 150 ms [facility] Ron RA Sensing Polarity BI [facility] Ron RA Sensing Refractory Period (ms) Auto [facility] Ron RV Pacing Amplitude (volts) 3.5 V [facility] Ron RV Pacing Polarity BI [facility] Ron RV Pacing Pulse Width (ms) 0.4 ms [facility] Ron RV Sensing Amplitude (mvolts) 0.3 mV [facility] Ron RV Sensing Blanking Period (ms) 230 ms [facility] Ron RV Sensing Polarity BI [facility] Detection Configuration (Vent) 1 - Zone [facility] ICD AFIB DetectionStatus ENABLED [facility] ICD ATAF DetectionInterval ms 350 ms [facility] ICD ATAF DetectionStatus ENABLED [facility] ICD FastVT DetectionStatus DISABLED [facility] ICD-ADLRATE_BPM 95 {beats}/min [facility] ICD-AMS EPISODES 171 {beats}/min [facility] ICD-ATP Episodes (Vent) 0 [facility] ICD-ATRIALFIBRILLATIO N 0 [facility] ICD-Device Mfg MDT [facility] ICD-LEADIMPEDANCEATRI AL 532 ohm [facility] ICD-Percent Pacing (Atrial) 0.25 % [facility] ICD-Percent Pacing (Vent) 1.79 % [facility] ICD-PMT Intervention Enabled [facility] ICD-PVC Intervention Enabled [facility] ICD-Rate Modulation Acceleration Reaction 30 s [facility] ICD-Rate Modulation Deceleration Exercise [facility] ICD-Rate Modulation [place] 3 [facility] ICD-Rate Modulation Threshold Low [facility] ICD-Rhythm Sinus rhythm [facility] ICD-Shocks Aborted (Vent) 0 [facility] CIJ-AYWTKV-ONZSEZYPC 0 [facility] ICD-SHOCKSABORTED 0 [facility] ICD-SHOCKSDELIVEREDVE NTRICULAR 0 [facility] [facility] ICD-Ventricular Fibrillation 0 [facility] ICD-VVDELAY_MS 0 ms [facility] Lead Impedance (LV) 361 ohm [facility] Lead Impedance (RV) 361 ohm [facility] Lead Impedance High Voltage 57 ohm [facility] Lead1 Mfg MDT [facility] Lead2 Mfg MDT [facility] Lead3 Mfg MDT [facility] Location LV [facility] Location RA [facility] Location RV [facility] Lower Rate (bpm) 60 {beats}/min [facility] LV PACING % 97.89 % [facility] Max Sensor Rate (bpm) 120 {beats}/min [facility] MDT_PROG_TACHY_ZONE_D ETECTIONS_STATUS ENABLED [facility] Model [id number] [place] XT HF Quad BERRY GROWER-D MRI [facility] Model 4798 Attain Stabilit y Quad MRI SureNcan [facility] Model 5076 CapSureFix Nov[facility] Model [id number] Sprint Quattro Secure S [facility] Pacemaker Dependent? NO [facility] Pacing Mode DDD [facility] Serial Number [id number] [facility] Serial Number [id number] [facility] Serial Number [id number] [facility] Serial Number [id number] [facility] Test Charge Energy 40.0 J [facility] Test Charge Time 0 s [facility] Therapy Status (Vent) Enabled [facility] Thresh LV Capture Amplitude (volts) 0.625 V [facility] Thresh LV Capture Duration (ms) 0.4 ms [facility] Thresh RA Capture Amplitude (volts) 0.75 V [facility] Thresh RA Capture Duration (ms) 0.4 ms [facility] Thresh RA Sensing Amplitude (mvolts) 4.3 mV [facility] Thresh RV Capture Amplitude (VOLTS) 0.5 V [facility] Thresh RV Capture Duration (MS) 0.4 ms [facility] Thresh RV Sensing Amplitude (MVOLTS) 13.0 mV [facility] Tracking Rate (bpm) 120 {beats}/min [facility] VF Zone Detection Interval 320 ms [facility] VF Zone Therapy Configuration 1 ATP(s) + 6 Shock(s) [facility] No Panel Informationon 07-14 BLANK _ [facility] ICD-Fast Ventricular Tachycardia 0 [facility] Implant Date 06/30/2023 [facility] Basic metabolic 2000 panelon 07-05-2023 Anion gap [Moles/Vol] 13 mmol/L Normal 9-18 [facility] Comment on above: Order Comment: Speci men Type: BLOOD SPECIMENOrdering Facility: [facility] Address: [address] [place] [address] Performed By: #### 2 4321-2 ####[facility] LABCLIA [id number] [place] [address] Calcium [Mass/Vol] 10.0 mg/dL Normal 8.5-10.2 [facility] Comment on above: Order Comment: Speci men Type: BLOOD SPECIMENOrdering Facility: [facility] Address: [address] [place] [address] Performed By: #### 2 4321-2 ####[facility] LABCLIA [id number] [place] [address] Chloride [Moles/Vol] 99 mmol/L Normal 97-[address] [facility] Comment on above: Order Comment: Speci men Type: BLOOD SPECIMENOrdering Facility: [facility] Address: [address] [place] [address] Performed By: #### 2 4321-2 ####[facility] LABCLIA [id number] [place] [address] CO2 [Moles/Vol] 27 mmol/L Normal 22-30 [facility] Comment on above: Order Comment: Speci men Type: BLOOD SPECIMENOrdering Facility: [facility] Address: [address] [place] [address] Performed By: #### 2 4321-2 ####[facility] LABCLIA [id number] [place] [address] Creatinine [Mass/Vol] 1.89 mg/dL High 0.58-0.96 [facility] Comment on above: Order Comment: [place] men Type: BLOOD SPECIMENOrdering Facility: [facility] Address: [address] [place] [address] Performed By: #### 2 4321-2 ####[facility] LABCLIA [id number] [place] [address] Creatinine and Glomerular filtration rate.predicted panel (S/P/Bld) 27 mL/min/1.73m??? Low >=60 [facility] Comment on above: Order Comment: Gissellei men Type: BLOOD SPECIMENOrdering Facility: [facility] Address: [address] [place] [address] Result Comment: Tanisha mated Glomerular Filtration Rate (eGFR) is calculated using the 2020 CKD-EPI creatinine equation. This equation utilizes serum creatinine, sex, and age as parameters. The creatinine assay has traceable calibration to isotope dilution-mass spectrometry. Refer to KDIGO guidelines for clinical interpretation. In patients with unstable renal function, e.g. those with acute kidney injury, the eGFR may not accurately reflect actual GFR. Performed By: #### 2 4321-2 ####[facility] LABCLIA [id number] [place] [address] Glucose [Mass/Vol] 123 mg/dL High 74-99 [facility] Comment on above: Order Comment: Speci men Type: BLOOD SPECIMENOrdering Facility: [facility] Address: [address] [place] [address] Result Comment: The [place] Diabetes [employer] (ADA) provides guidance for cutoff values for fasting glucose and random glucose. The ADA defines fasting as no caloric intake for at least 8 hours. Fasting plasma glucose results between 100 to 125 mg/dL indicate increased risk for diabetes (prediabetes).Fasting plasma glucose results greater than or equal to 126 mg/dL meet the criteria for diagnosis of diabetes. In the absence of unequivocal hyperglycemia, results should be confirmed by repeat testing. In a patient with classic symptoms of hyperglycemia or hyperglycemic crisis, random plasma glucose results greater than or equal to 200 mg/dL meet the criteria for diagnosis of diabetes.Reference: Standards of Medical Care in Diabetes 2016, [place] [employer]. Diabetes Care. 2016.39(Suppl 1). Performed By: #### 2 4321-2 ####[facility] LABCLIA [id number] [place] [address] Potassium [Moles/Vol] 3.6 mmol/L Low 3.7-5.1 [facility] Comment on above: Order Comment: Speci men Type: BLOOD SPECIMENOrdering Facility: [facility] Address: [address] [place] [address] Performed By: #### 2 4321-2 ####[facility] LABCLIA [id number] [place] [address] Sodium [Moles/Vol] 139 mmol/L Normal 136-144 [facility] Comment on above: Order Comment: Speci men Type: BLOOD SPECIMENOrdering Facility: [facility] Address: [address] [place] [address] Performed By: #### 2 4321-2 ####[facility] LABCLIA [id number] [place] [address] Urea nitrogen [Mass/Vol] 50 mg/dL High 7-21 [facility] Comment on above: Order Comment: Gissellei lorrie Type: BLOOD SPECIMENOrdering Facility: [facility] Address: [address] [place] [address] Performed By: #### 2 4321-2 ####[facility] LABIA [id number] [place] [address] ANES POSTPROC EVALon 024 ANES POSTPROC EVAL HNO ID: [id number] Author: BORIS ARGUELLO MD Service: Anesthesiology Author Type: Anesthesiologist Type: Anesthesia Postprocedure Evaluation Filed: 07/03/2023 19:08 Note Text: POST ANESTHESIA EVALUATION NOTE : 1945 Procedure Summary Date: 06/30/23 Room / Location: EP ROOM 2 / [facility] EP Anesthesia Start: 1434 Anesthesia Stop: 1712 Procedures: INSERTION PERM IMPLANTABLE DEFIBRILLATOR SYSTEM, W/TRANSVENOUS LEAD(S) INSERTION CORONARY SINUS/LT VENTRICULAR LEAD W/INITIAL INSERTION OF PACEMAKER/DEFIB GENERATOR Diagnosis: Congestive heart failure, unspecified HF chronicity, unspecified heart failure type (HCC) (Congestive heart failure, unspecified HF chronicity, unspecified heart failure type (HCC) [I50.9]) Surgeons: Afshan Redman MD Responsible Provider: Boris Arguello MD Anesthesia Type: general ASA Status: 4 Anesthesia Type: general Airway Type: ETT Last Vitals Vitals Value Taken Time BP 118/65 06/30/232029 Temp 36.7 ?C (98 ?F) 06/30/231714 HR SpO2 89 06/30/232031 Resp 23 06/30/232031 SpO2 91 % 06/30/232031 Vitals shown include unfiled device data. Post Anesthesia Patient Status Patient Evaluation: PACU. PACU/ICU Patient Condition: stable. Anticipated Disposition: inpatient floor planned admission. Neurological Status: aware and responsive. Pulmonary Status: breathing comfortably on room air Airway Control: returned to baseline unsupported. Cardiovascular Status: stable. Pain Management: clinically adequate Postoperative Hydration: acceptable. Intraoperative Events: no significant anesthesia events Recommendation: continue current plan of care. Anesthesia Observations No Documentation SIGNATURE: Boris Arguello MD PATIENT NAME: Arleth Elias DATE: July 03, 2023 TIME: 7:08 PM CSN: [id number] [facility] 07-01-2023 [facility] HNO ID: [id number] Author: MAUDE DALLAS RT(R) Service: Radiology Author Type: Technologist Type: Allied Health Filed: 07/01/2023 07:48 Note Text: Radiology Service Progress Note PATIENT NAME: Arleth Elias DATE OF SERVICE: July 01, 2023 TIME: 7:48 AM PATIENT IDENTITY VERIFICATION COMPLETED USING TWO (2) IDENTIFIERS: Name and Date of confirmed by patient verbally. FALL SCREENING: Has the patient had 2 falls in the last year or 1 fall with injury or currently using an Ambulatory Assistive Device (Walker, Cane, Wheelchair, Crutches, etc.)? Inpatient: Screened on floor PATIENT GENDER DATA: Female. status: : No status: N/A PATIENT RELEVANT IMPLANT DATA REVIEWED: Not Applicable PATIENT PRESENTS WITH AN IMPLANTABLE OR ATTACHED EMBEDDED SYSTEMS SOFTWARE ENGINEER: No RADIOLOGY DEPARTMENT: General X-ray: Exam(s) Completed: Chest X-Ray PERIPHERAL IV DATA: Not applicable SIGNED BY: Maude Dallas, RT(R) July 01, 2023 7:48 AM Normal [facility] Basic metabolic 2000 panelon 07-01-2023 Anion gap [Moles/Vol] 14 mmol/L Normal 9-18 [facility] Comment on above: Order Comment: Speci men Type: BLOOD SPECIMENOrdering Facility: [facility] Address: [address] [place] [address] Performed By: #### 2 4321-2 ####[facility] [id number] [place] [address] [place] Calcium [Mass/Vol] 9.1 mg/dL Normal 8.5-10.2 [facility] Comment on above: Order Comment: Speci men Type: BLOOD SPECIMENOrdering Facility: [facility] Address: [address] [place] [address] Performed By: #### 2 4321-2 ####[facility]ATORYCLIA [id number] [place] [id number] [place] Chloride [Moles/Vol] 104 mmol/L Normal 97-105 [facility] Comment on above: Order Comment: Speci men Type: BLOOD SPECIMENOrdering Facility: [facility] Address: [address] [place] [address] Performed By: #### 2 4321-2 ####[facility]ORYCL[facility] [id number] [place] [id number] [place] CO2 [Moles/Vol] 24 mmol/L Normal 22-30 [facility] Comment on above: Order Comment: Speci men Type: BLOOD SPECIMENOrdering Facility: [facility] Address: [address] [place] [address] Performed By: #### 2 4321-2 ####[facility]ORY[facility] [id number] [place] [address] [place] Creatinine [Mass/Vol] 1.90 mg/dL High 0.58-0.96 [facility] Comment on above: Order Comment: [place] andrew Type: BLOOD SPECIMENOrdering Facility: [facility] Address: [address] [place] [address] Performed By: #### 2 4321-2 ####[facility]ORYCL[facility] [id number] [place] [address] [facility] Creatinine and Glomerular filtration rate.predicted panel (S/P/Bld) 27 mL/min/1.73m??? Low >=60 [facility] Comment on above: Order Comment: Gisselle lorrie Type: BLOOD SPECIMENOrdering Facility: [facility] Address: [address] [place] [address] Result Comment: Tanisha mated Glomerular Filtration Rate (eGFR) is calculated using the 2020 CKD-EPI creatinine equation. This equation utilizes serum creatinine, sex, and age as parameters. The creatinine assay has traceable calibration to isotope dilution-mass spectrometry. Refer to KDIGO guidelines for clinical interpretation. In patients with unstable renal function, e.g. those with acute kidney injury, the eGFR may not accurately reflect actual GFR. Performed By: #### 2 4321-2 ####[facility]ORYCLIA [id number] [place] [address] [place] Glucose [Mass/Vol] 155 mg/dL High 74-99 [facility] Comment on above: Order Comment: [place] andrew Type: BLOOD SPECIMENOrdering Facility: [facility] Address: [address] [place] [address] Result Comment: The [place] Diabetes Association (ADA) provides guidance for cutoff values for fasting glucose and random glucose. The ADA defines fasting as no caloric intake for at least 8 hours. Fasting plasma glucose results between 100 to 125 mg/dL indicate increased risk for diabetes (prediabetes). Fasting plasma glucose results greater than or equal to 126 mg/dL meet the criteria for diagnosis of diabetes. In the absence of unequivocal hyperglycemia, results should be confirmed by repeat testing. In a patient with classic symptoms of hyperglycemia or hyperglycemic crisis, random plasma glucose results greater than or equal to 200 mg/dL meet the criteria for diagnosis of diabetes. Reference: Standards of Medical Care in Diabetes 2016, [place] [employer]. Diabetes Care. 2016.39(Suppl 1). Performed By: #### 2 4321-2 ####[facility]ORYCLIA [id number] [place] [id number] [place] Potassium [Moles/Vol] 4.0 mmol/L Normal 3.7-5.1 [facility] Comment on above: Order Comment: [place] andrew Type: BLOOD SPECIMENOrdering Facility: [facility] Address: [address] [place] [address] Performed By: #### 2 4321-2 ####[facility]ORYCLIA [id number] [place] [id number] [place] Sodium [Moles/Vol] 142 mmol/L Normal 136-144 [facility] Comment on above: Order Comment: [place] andrew Type: BLOOD SPECIMENOrdering Facility: [facility] Address: [address] [place] [address] Performed By: #### 2 4321-2 ####[facility]ORYCLIA [id number] [place] [id number] [place] Urea nitrogen [Mass/Vol] 42 mg/dL High 10-30 [facility] Comment on above: Order Comment: [place] andrew Type: BLOOD SPECIMENOrdering Facility: [facility] Address: [address] [place] [address] Performed By: #### 2 4321-2 ####[facility]ATORYCLIA [id number] [place] [id number] [place] CNDSon 07-01-2023 CNDS HNO ID: [id number] Author: AFSHAN REDMAN MD Service: Electrophysiology Author Type: Physician Type: Discharge Summary Filed: 07/07/2023 15:49 Note Text: Department of Cardiovascular Medicine Discharge Summary (Template ID [id number]) PATIENT NAME: Arleth Elias ADMISSION DATE: 06/30/2023 DISCHARGE DATE: 07/01/2023 Attending Physician: Arpita Redman* Code Status: Prior Primary Service: Admission Diagnosis: Severe LV dysfunction/chronic systolic heart failure Discharge Diagnosis: Severe LV dysfunction/chronic systolic heart failure Secondary Diagnoses: Patient Active Hospital Problem List: No active hospital problems. Reason for Hospitalization: Scheduled BiV ICD placement Hospital Course: Ms Arleth Elias is a 77 year old female who was kept overnight for observation after having a scheduled BiV device due to severe cardiomyopathy. The dressing was removed and showed some bruising but no hematoma. CXR, EKG, and device check were all done and reviewed. She was discharged home in stable condition with close follow up with EP. Due to DAV she will have repeat labs on Wednesday and being referred to Nephrology Consults: None Major Procedure or Operation: Defib surgery: June 30, 2023 Device: - Implantation of a MEDTR[employer] CROME HF QUAD BERRY GROWER-D MRI SURE SCAN [id number] pulse generator. Leads: - Implantation of a MEDTR[employer]IC 6935M-62 right ventricular lead. - Implantation of a MEDTR[employer]IC 5076 right atrial lead. - Implantation of a [employer] ATTAIN STABILITY QUAD MRI SURESCAN Other Procedures, Testing AND Radiology: EKG, CXR, device check Patient Condition at Discharge: Stable Disposition: Home with Self Care Information Provided to the Patient: Patient given copy of After Visit Summary which included activity instructions, diet instructions, wound care instructions, medication instructions and follow up appointment. ALLERGIES Allergen Reactions Penicillins Anaphylaxis, Hives Iodinated Contrast * Other: See Comments Throat itching to some Xray dye >20-30 years ago Discharge Medications: Medication List CONTINUE taking these medications allopurinol 100 mg tablet Commonly known as: ZYLOPRIM aspirin, enteric coated 81 mg EC tablet Commonly known as: ASPIRIN, ENTERIC COATED BD ULTRA-FINE RUBIA PEN NEEDLE 32 gauge x 5/32 Generic drug: Insulin [place] (Disposable) BLOOD GLUCOSE TEST test strip Generic drug: blood sugar diagnostic Use as instructed to monitor glucose. One touch ultra verio test strips. clopidogrel 75 mg tablet Commonly known as: PLAVIX CPAP/BIPAP/OTHER Type .CPAPSettings into a note to see current settings/supplies/DME information. diazePAM 2 mg tablet Commonly known as: VALIUM fluticasone 50 mcg/actuation nasal spray Commonly known as: FLONASE FREESTYLE RU 3 SENSOR Mauricio Generic drug: Blood-Glucose Sensor Use new sensor every 14 days to monitor blood glucose. furosemide 40 mg tablet Commonly known as: LASIX Take 1 tablet by mouth two times a day. insulin detemir U-100 100 unit/mL (3 mL) injection pen Commonly known as: LEVEMIR Inject 20 Units subcutaneously daily at bedtime. JARDIANCE 10 mg tablet Generic drug: empagliflozin Take 1 tablet by mouth daily with breakfast. magnesium oxide 400 mg (241.3 mg magnesium) tablet Commonly known as: MAG-OX TAKE 1 TABLET BY MOUTH TWICE DAILY. TAKE SEPERATELY FROM DOXYCYCLINE metoprolol succinate ER 25 mg 24 hr tablet Commonly known as: TOPROL XL Take 1 tablet by mouth once daily. rosuvastatin 40 mg tablet Commonly known as: CRESTOR Take 1 tablet by mouth daily at bedtime. semaglutide 2 mg/dose (8 mg/3 mL) pen injector Commonly known as: OZEMPIC Inject 2 mg subcutaneously one time a week. sertraline 50 mg tablet Commonly known as: ZOLOFT valsartan 40 mg tablet Commonly known as: DIOVAN Take 0.5 tablets by mouth once daily. Transitions of Care Critical Issues: Outpatient Management: * Are there important medication changes and/or outstanding issues that need to be addressed: None * What is the plan for follow up: as below Future Appointments: Future Appointments Date Time Provider Department Center 07/05/2023 2:30 PM Stanley Strange MD [facility] 07/15/2023 11:30 AM DEVICE CLINIC CARD [facility] 07/15/2023 1:30 PM Myesha Cheng PA-C [facility] 07/27/2023 1:30 PM Stanley Strange MD [facility] 08/03/2023 2:00 PM Charmaine Barth, DOG LICENSE OFFICER SUPERVISOR.PHARM TECH NEUR [facility] 10/20/2023 3:00 PM Chalo Pritchard DO CARDL[facility] Aniya 12/06/2023 12:50 PM Mikel Barahona, SHITAL.PHARM TECH ENDOLN [facility] Aniya Highest Readmission Risk Score: 17 The 30 day readmissions risk score is derived from an internally validated risk model which evaluates patient level characteristics, utilization history, medication orders and lab results up until the day of discharge. Patients with a score of 40 or above are considered highest risk for readmissi (more content not included)... [facility] ARLETH ELIAS ([id number]) 1945 F Date Time Provider Department 07/01/23 MYESHA CHENG [facility] During your visit today, we recorded the following information about you: Myesha Cheng PA-C 07/01/2023 11:[address] Polk would like patient to establish with Nephrology for DAV on CKD Please help arrange KURT Cervantes [facility] 07/01/2023 3:40 PM Signed Spoke with pt. Asked that we send her a [employer] message and she will call to schedule with Kidney Medicine. Allergies As of Date: 07/01/2023 Noted Allergy Reaction PENICILLINS 06/29/2014 10 - Anaphylaxis 4 - Hives IODINATED CONTRAST MEDIA 12/22/2018 14 - Other: See Comments Comments: Throat itching to some Xray dye >20-30 years ago Date Reviewed: 06/30/2023 Reviewed by: Mary Healy, RN - Fully Assessed Reason for Visit: [facility] Follow Up [1227] Primary Visit Diagnosis:Acute kidney injury (HCC) [N17.9] Order(s):CONSULT TO NEPHROLOGY [9018] Order #: [id number]: 1 FUTURE Prescriptions as of 07/01/2023 - diazePAM (VALIUM) 2 mg tablet - furosemide (LASIX) 40 mg tablet Take 1 tablet by mouth two times a day. - empagliflozin (JARDIANCE) 10 mg tablet Take 1 tablet by mouth daily with breakfast. - sertraline (ZOLOFT) 50 mg tablet Take 25 mg by mouth once daily. - clopidogrel (PLAVIX) 75 mg tablet Take by mouth every 24 hours. - insulin detemir U-100 (LEVEMIR) 100 unit/mL (3 mL) injection pen Inject 20 Units subcutaneously daily at bedtime. - semaglutide (OZEMPIC) 2 mg/dose (8 mg/3 mL) pen injector Inject 2 mg subcutaneously one time a week. - valsartan (DIOVAN) 40 mg tablet Take 0.5 tablets by mouth once daily. - rosuvastatin (CRESTOR) 40 mg tablet Take 1 tablet by mouth daily at bedtime. - metoprolol succinate ER (TOPROL XL) 25 mg 24 hr tablet Take 1 tablet by mouth once daily. - blood sugar diagnostic (BLOOD GLUCOSE TEST) test strip Use as instructed to monitor glucose. One touch ultra verio test strips. - Blood-Glucose Sensor (FREESTYLE RU 3 SENSOR) mauricio Use new sensor every 14 days to monitor blood glucose. - CPAP/BIPAP/OTHER Type .CPAPSettings into a note to see current settings/supplies/DME information. - magnesium oxide (MAG-OX) 400 mg (241.3 mg magnesium) tablet TAKE 1 TABLET BY MOUTH TWICE DAILY. TAKE SEPERATELY FROM DOXYCYCLINE - aspirin, enteric coated (ASPIRIN, ENTERIC COATED) 81 mg EC tablet Take 81 mg by mouth once daily. - Insulin [place], Disposable, (BD ULTRA-FINE RUBIA PEN NEEDLE) 32 gauge x 5/32 ndle BD Ultra-Fine Rubia Pen Needle 32 gauge x 5/32 - allopurinol (ZYLOPRIM) 100 mg tablet Take 100 mg by mouth once daily. - fluticasone (FLONASE) 50 mcg/actuation nasal spray fluticasone propionate 50 mcg/actuation nasal spray,suspension Problem List As Of Date 07/01/2023 Noted Resolved Posterior tibial tendonitis [M76.829] 09/19/2015 Chronic pain of right ankle [M25.571, G89.29] 09/19/2015 Claudication (HCC) [I73.9] 11/18/2018 Primary hypertension [I10] 11/18/2018 Mixed hyperlipidemia [E78.2] 11/18/2018 Class 1 obesity due to excess calories with ser*11/18/2018 HFrEF (heart failure with reduced ejection frac*12/22/2018 Nonsustained ventricular tachycardia (HCC) [I47*12/22/2018 Bruit of left carotid artery [R09.89] 12/22/2018 Diabetes mellitus (HCC) [E11.9] 01/25/2019 Intermittent claudication of both lower extremi*01/27/2019 Cardiomyopathy (HCC) [I42.9] 06/07/2019 Preoperative testing [Z01.818] 06/07/2019 Coronary artery disease involving che[place] hunt*06/08/2019 Aortoiliac occlusive disease (HCC) [I74.09] 01/02/2020 Acute heart failure with reduced ejection fract*02/16/2023 Status post angioplasty with stent [Z95.820] 02/17/2023 Chronic systolic heart failure (HCC) [I50.22] 05/31/2023 LBBB (left bundle branch block) [I44.7] 05/31/2023 Acute kidney injury (HCC) [N17.9] 06/15/2023 LV dysfunction [I51.9] 07/01/2023 Encounter Status:Closed by MYESHA CHENG on 07/01/23 [facility] NURSING PROGon 07-01-2023 NURSING PROG HNO ID: [id number] Author: HEATH AGEE RN Service: Nursing Author Type: Registered Nurse Type: Nursing Progress Note Filed: 07/01/2023 12:16 Note Text: 0700: Patient in bed resting. S/P ICD pacer implant. Left chest with pressure dressing intact. Dressing with 30 cc of air to be remove. Site with large bruising, soft. Left radial pulse present. Assessment per flowsheet. VSS. Will cont monitoring patient. 1130: Discharge instructions given to patient including left chest care at home. Medications list reviewed and instructed. F/U appointment discussed. Patient Is aware to have repeat Lab work on Tuesday 07/04. Waiting for to pick her up. 1216: Patient left the unit via [facility] NURSING PROG HNO ID: [id number] Author: MARY HEALY, MYA Service: Nursing Author Type: Registered Nurse Type: Nursing Progress Note Filed: 06/30/2023 22:35 Note Text: Nursing Progress Note Patient Name: Arleth Elias Patient Location: [id number]/[facility] [id number] Transfer Note: PATIENT NAME: Arleth Elias Patient Location: [id number]/[facility]-[id number] Room: [id number] Patient transferred into room/unit [place] [address] in stable condition. Actions taken: Pt orientated to room and surroundings. Pt denies pain at left chest wall site. Left chest wall dressing c/d/I, left radial pulse palpable. Pt VSS, call light in reach, safety maintained. 2220: pt given evening medications as ordered. V-paced on telemetry. Safety maintained. This note was completed by: Mary Healy [facility] XR CHEST 2V FRONTAL/LATon XR CHEST 2V FRONTAL/LAT * * *Final Report* * * DATE OF EXAM: Jul 01 2023 7:47AM FVX 5291 - XR CHEST 2V FRONTAL/LAT / PROCEDURE REASON: Other * * * * Physician Interpretation * * * * EXAMINATION: CHEST RADIOGRAPH (2 VIEW FRONTAL and LATERAL) CLINICAL HISTORY: Other, Pacemaker Implant MQ: XC2_6 EXAM DATE/TIME: 07/01/2023 7:47 AM COMPARISON: X-ray 02/16/2023 RESULT: Lines, tubes, and devices: Left-sided pacemaker. Lungs and pleura: Small right and trace left pleural effusions with atelectasis. No pneumothorax. Cardiomediastinal silhouette: Cardiomegaly. Vascular calcifications in the aorta. Bones and soft tissues: Degenerative changes in the thoracic spine. IMPRESSION: Small right and trace left pleural effusions with atelectasis No obvious pneumothorax. Freight Claim Investigator: PSCB Transcribe Date/Time: Jul 01 2023 7:56A Dictated by : PAT GLASER MD This examination was interpreted and the report reviewed and electronically signed by: PAT GLASER MD on Jul 01 2023 7:59AM EST [id number] N [facility] ANES PRE-OPon 06-30-2023 ANES PRE-OP HNO ID: [id number] Author: BORIS CAMPOS MD Service: Anesthesiology Author Type: Anesthesiologist Type: Anesthesia Preprocedure Evaluation Filed: 06/30/2023 11:50 Note Text: ANESTHESIOLOGY DAY OF SURGERY NOTE : 1945 Procedure Information Date/Time: 06/30/23 1300 Procedures: INSERTION PERM IMPLANTABLE DEFIBRILLATOR SYSTEM, W/TRANSVENOUS LEAD(S) - [employer] INSERTION CORONARY SINUS/LT VENTRICULAR LEAD W/INITIAL INSERTION OF PACEMAKER/DEFIB GENERATOR Location: EP ROOM 2 / EP Surgeons: Afshan Redman MD Estimated body mass index is 26.42 kg/m? as calculated from the following: Height as of this encounter: 167.6 cm (5' 6 ). Weight as of this encounter: 74.3 kg (163 lb 11.2 oz). Most recent hematocrit and potassium results: Hematocrit 39.4 06/30/2023 Hematocrit (POCT) 23 01/02/2020 Potassium 3.9 06/22/2023 Potassium (POCT) 4.0 01/02/2020 Relevant Problems CARDIO (+) Acute on chronic systolic congestive heart failure (HCC) (+) Aortoiliac occlusive disease (HCC) (+) 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 (+) LBBB (left bundle branch block) (+) Primary hypertension -RENAL (+) Acute kidney injury (HCC) I - PHYSICAL EVALUATION AIRWAY Patient intubated: No. Tracheostomy tube not present Mallampati: III. TM distance: >3 FB. Neck ROM: full ROM without neurological symptoms. Mouth opening: adequate. Short neck: no. Thick neck: yes DENTAL Dental findings: missing tooth/teeth. Dentures, lower: partial. II - ANESTHESIA PLAN ASA Score: 4 Anesthetic Plan: MAC NPO Status: adequate Beta Genia Monitoring Plan Monitoring plan: standard ASA. Post Procedure Analgesic Plan Postoperative analgesic plan: parenteral or oral opioids. Informed Consent Anesthetic risks, benefits, alternatives, personnel and consent discussed: yes. Patient / Responsible Green Party agrees to proceed: yes Patient / Surrogate agrees to blood products: blood products not planned DNR status not reviewed with patient and/or family prior to surgery. Significant changes in the patient condition since the History and Physical, not otherwise documented in primary service progress note: no. Potential Anesthesia issues that may suggest increased risk of complications or contraindication to planned procedure: other. Ozempic held since 9-10 days. No nausea Vitals Value Taken Time BP 112/70 06/30/23 1134 Pulse 106 06/30/23 1134 Resp 16 06/30/23 1134 Temp 36.6 ?C (97.9 ?F) 06/30/23 1134 SpO2 96 % 06/30/23 1134 Facility-Administered Medications as of 06/30/2023 Medication Dose Route Frequency - vancomycin 1.25 g in NaCl 0.9% 250 mL (VANCOCIN) 0.015 g/kg/dose INTRAVENOUS Pre-Op Once Outpatient Medications as of 06/30/2023 Medication Sig - furosemide (LASIX) 40 mg tablet Take 1 tablet by mouth two times a day. - empagliflozin (JARDIANCE) 10 mg tablet Take 1 tablet by mouth daily with breakfast. - sertraline (ZOLOFT) 50 mg tablet Take 25 mg by mouth once daily. - valsartan (DIOVAN) 40 mg tablet Take 0.5 tablets by mouth once daily. - rosuvastatin (CRESTOR) 40 mg tablet Take 1 tablet by mouth daily at bedtime. - metoprolol succinate ER (TOPROL XL) 25 mg 24 hr tablet Take 1 tablet by mouth once daily. - magnesium oxide (MAG-OX) 400 mg (241.3 mg magnesium) tablet TAKE 1 TABLET BY MOUTH TWICE DAILY. TAKE SEPERATELY FROM DOXYCYCLINE - aspirin, enteric coated (ASPIRIN, ENTERIC COATED) 81 mg EC tablet Take 81 mg by mouth once daily. - allopurinol (ZYLOPRIM) 100 mg tablet Take 100 mg by mouth once daily. - diazePAM (VALIUM) 2 mg tablet - clopidogrel (PLAVIX) 75 mg tablet Take by mouth every 24 hours. - insulin detemir U-100 (LEVEMIR) 100 unit/mL (3 mL) injection pen Inject 20 Units subcutaneously daily at bedtime. - semaglutide (OZEMPIC) 2 mg/dose (8 mg/3 mL) pen injector Inject 2 mg subcutaneously one time a week. - blood sugar diagnostic (BLOOD GLUCOSE TEST) test strip Use as instructed to monitor glucose. One touch ultra verio test strips. - Blood-Glucose Sensor (FREESTYLE RU 3 SENSOR) mauricio Use new sensor every 14 days to monitor blood glucose. - CPAP/BIPAP/OTHER Type .CPAPSettings into a note to see current settings/supplies/DME information. - Insulin [place], Disposable, (BD ULTRA-FINE RUBIA PEN NEEDLE) 32 gauge x 5/32 ndle BD Ultra-Fine Rubia Pen Needle 32 gauge x 5/32 - fluticasone (FLONASE) 50 mcg/actuation nasal spray fluticasone propionate 50 mcg/actuation nasal spray,suspension I have interviewed and examined the patient. I have reviewed the medical record and/or the pre-anesthesia evaluation, pertinent labs, and test results. This contains updated information obtained within 48 hours of Surgery/Procedure. SIGNATURE: Boris Campos MD PATIENT NAME: Arleth Elias DATE: June 30, 2023 TIME: 11:49 AM CSN: [id number] Normal [facility] Basic metabolic 2000 panelon 06-30-2023 Anion gap [Moles/Vol] 16 mmol/L Normal 9-18 [facility] Comment on above: Order Comment: Speci men Type: BLOOD SPECIMEN Ordering Facility: [facility] Address: [address] [place] [address] Performed By: #### 2 4321-2 #### [facility] CLIA [id number] [address] [place] [address] [place] Calcium [Mass/Vol] 9.6 mg/dL Normal 8.5-10.2 [facility] Comment on above: Order Comment: Speci men Type: BLOOD SPECIMEN Ordering Facility: [facility] Address: [address] [place] [address] Performed By: #### 2 4321-2 #### [facility] CLIA [id number] [address] [place] [address] [place] Chloride [Moles/Vol] 102 mmol/L Normal 97-105 [facility] Comment on above: Order Comment: Speci men Type: BLOOD SPECIMEN Ordering Facility: [facility] Address: [address] [place] [address] Performed By: #### 2 4321-2 #### [facility] CLIA [id number] [address] [place] [address] [place] CO2 [Moles/Vol] 22 mmol/L Normal 22-30 [facility] Comment on above: Order Comment: Speci men Type: BLOOD SPECIMEN Ordering Facility: [facility] Address: [address] [id number] Performed By: #### 2 4321-2 #### [facility] CLIA [id number] [address] [place], [place] [id number] [place] Creatinine [Mass/Vol] 1.61 mg/dL High 0.58-0.96 [facility] Comment on above: Order Comment: [place] andrew Type: BLOOD SPECIMEN Ordering Facility: [facility] Address: [address] [place] [address] Performed By: #### 2 4321-2 #### [facility] CLIA [id number] [address] [place] [address] [place] Creatinine and Glomerular filtration rate.predicted panel (S/P/Bld) 33 mL/min/1.73m??? Low >=60 [facility] Comment on above: Order Comment: [place] andrew Type: BLOOD SPECIMEN Ordering Facility: [facility] Address: [address] [place] [address] Result Comment: Tanisha mated Glomerular Filtration Rate (eGFR) is calculated using the 2020 CKD-EPI creatinine equation. This equation utilizes serum creatinine, sex, and age as parameters. The creatinine assay has traceable calibration to isotope dilution-mass spectrometry. Refer to KDIGO guidelines for clinical interpretation. In patients with unstable renal function, e.g. those with acute kidney injury, the eGFR may not accurately reflect actual GFR. Performed By: #### 2 4321-2 #### [facility] CLIA [id number] [place] [address] [place] Glucose [Mass/Vol] 115 mg/dL High 74-99 [facility] Comment on above: Order Comment: [place] andrew Type: BLOOD SPECIMEN Ordering Facility: [facility] Address: [address] [place] [address] Result Comment: The [place] Diabetes Association (ADA) provides guidance for cutoff values for fasting glucose and random glucose. The ADA defines fasting as no caloric intake for at least 8 hours. Fasting plasma glucose results between 100 to 125 mg/dL indicate increased risk for diabetes (prediabetes). Fasting plasma glucose results greater than or equal to 126 mg/dL meet the criteria for diagnosis of diabetes. In the absence of unequivocal hyperglycemia, results should be confirmed by repeat testing. In a patient with classic symptoms of hyperglycemia or hyperglycemic crisis, random plasma glucose results greater than or equal to 200 mg/dL meet the criteria for diagnosis of diabetes. Reference: Standards of Medical Care in Diabetes 2016, [place] [employer]. Diabetes Care. 2016.39(Suppl 1). Performed By: #### 2 4321-2 #### [facility] CLIA [id number] [address] [place] [address] [place] Potassium [Moles/Vol] 3.7 mmol/L Normal 3.7-5.1 [facility] Comment on above: Order Comment: Speci men Type: BLOOD SPECIMEN Ordering Facility: [facility] Address: [address] [place] [address] Performed By: #### 2 4321-2 #### [facility] CLIA [id number] [address] [place] [address] [place] Sodium [Moles/Vol] 140 mmol/L Normal 136-144 [facility] Comment on above: Order Comment: Speci men Type: BLOOD SPECIMEN Ordering Facility: [facility] Address: [address] [place] [address] Performed By: #### 2 4321-2 #### [facility] CLIA [id number] [address] [place] [address] [place] Urea nitrogen [Mass/Vol] 35 mg/dL High 7-21 [facility] Comment on above: Order Comment: Speci men Type: BLOOD SPECIMEN Ordering Facility: [facility] Address: [address] [place] [address] Performed By: #### 2 4321-2 #### [facility] CLIA [id number] [address] [place] [address] [place] CBC panel Auto (Bld)on 06-29 Erythrocyte distribution width (RBC) [Ratio] 17.5 % High 11.5-15.0 [facility] Comment on above: Order Comment: Speci men Type: BLOOD SPECIMENOrdering Facility: [facility] Address: [address] [place] [address] Performed By: #### 5 8410-2 ####[facility] [id number] [place] [address] [place] Hematocrit (Bld) [Volume fraction] 39.4 % Normal 36.0-46.0 [facility] Comment on above: Order Comment: Speci men Type: BLOOD SPECIMENOrdering Facility: [facility] Address: [address] [place] [address] Performed By: #### 5 8410-2 ####[facility] [id number] [place] [address] [place] Hemoglobin (Bld) [Mass/Vol] 12.3 g/dL Normal 11.5-15.5 [facility] Comment on above: Order Comment: Speci men Type: BLOOD SPECIMENOrdering Facility: [facility] Address: [address] [place] [address] Performed By: #### 5 8410-2 ####[facility]ORY[facility]IA [id number] [place] [address] [place] MCH (RBC) [Entitic mass] 26.4 pg Normal 26.0-34.0 [facility] Comment on above: Order Comment: Speci men Type: BLOOD SPECIMENOrdering Facility: [facility] Address: [address] [place] [address] Performed By: #### 5 8410-2 ####[facility] [id number] [place] [address] [place] MCHC (RBC) [Mass/Vol] 31.2 g/dL Normal 30.5-36.0 [facility] Comment on above: Order Comment: Speci men Type: BLOOD SPECIMENOrdering Facility: [facility] Address: [address] [place] [address] Performed By: #### 5 8410-2 ####[facility]ORYCLIA [id number] [address] [place] MCV (RBC) [Entitic vol] 84.5 fL Normal 80.0-100.0 [facility] Comment on above: Order Comment: Speci men Type: BLOOD SPECIMENOrdering Facility: [facility] Address: [address] [place] [address] Performed By: #### 5 8410-2 ####[facility] [id number] [place] [id number] [place] Nucleated RBC (Bld) [#/Vol] 10*3/uL Normal <0.01 [facility] Comment on above: Order Comment: Speci men Type: BLOOD SPECIMENOrdering Facility: [facility] Address: [address] [place] [address] Performed By: #### 5 8410-2 ####[facility] [id number] [place] [address] [place] Platelet mean volume (Bld) [Entitic vol] 10.7 fL Normal 9.0-12.7 [facility] Comment on above: Order Comment: Speci men Type: BLOOD SPECIMENOrdering Facility: [facility] Address: [address] [place] [address] Performed By: #### 5 8410-2 ####[facility] [id number] [place] [address] [place] Platelets (Bld) [#/Vol] 199 10*3/uL Normal 150-400 [facility] Comment on above: Order Comment: Speci men Type: BLOOD SPECIMENOrdering Facility: [facility] Address: [address] [place] [address] Performed By: #### 5 8410-2 ####[facility] [id number] [place] [id number] [place] RBC (Bld) [#/Vol] 4.66 10*6/uL Normal 3.90-5.20 [facility] Comment on above: Order Comment: Speci men Type: BLOOD SPECIMENOrdering Facility: [facility] Address: [address] [place] [address] Performed By: #### 5 8410-2 ####[facility] [id number] [place] [id number] [place] WBC (Bld) [#/Vol] 7.79 10*3/uL Normal 3.70-11.00 [facility] Comment on above: Order Comment: Speci men Type: BLOOD SPECIMENOrdering Facility: [facility] Address: [address] [place] [address] Performed By: #### 5 8410-2 ####[facility] [id number] [place] [address] [place] ECG COMPLETEon 06-30-2023 ECG COMPLETE Ventricular Rate : 8 5 BPM Atrial Rate : 85 BPM P-R Interval : 181 ms QRS Duration : 128 ms Q-T Interval : 443 ms QTC Calculation(Bazett) : 527 ms Calculated P Reva : 86 degrees Calculated R Reva : 157 degrees Calculated T Reva : -65 degrees Sinus rhythm Left atrial enlargement Nonspecific intraventricular conduction delay Lateral infarct, age indeterminate Abnormal ECG Confirmed by STEVAN BRANTLEY MD ([id number]) on 07/01/2023 5:28:30 PM Also confirmed by STEVAN BRANTLEY MD ([id number]), advertising editor ANGIE TAM ([id number]) on 07/07/2023 8:35:31 AM NAME : ARLETH ELIAS PID : [id number] : 1945 Gender : Female Race : ORD : [id number] Procedure Date : Jun 30 2023 18:29:35 Edit Date : Jul 07 2023 08:35:33 Diagnosis: Sinus rhythm Left atrial enlargement Nonspecific intraventricular conduction delay Lateral infarct, age indeterminate Abnormal ECG Confirmed by STEVAN BRANTLEY MD ([id number]) on 07/01/2023 5:28:30 PM Also confirmed by STEVAN BRANTLEY MD ([id number]), advertising editor ANGIE TAM ([id number]) on 07/07/2023 8:35:31 AM Test Reason : Post-OP Location : 400 : [facility] Overread By : STEVAN BRANTLEY MD Edited By : ANGIE TAM Referred By : , Acquired by : MAUDE RAYA [facility] NURSING PROGon 06-30-2023 NURSING PROG HNO ID: [id number] Author: ALAN CIFUENTES RN Service: Nursing Author Type: Registered Nurse Type: Nursing Progress Note Filed: 06/30/2023 20:36 Note Text: 1811 Assumed care of pt at 1800. Report received from MYA Campos. Sitting upright in bed. No pain or complaints. LCW site noted with dressing intact Small amount of drainage noted to medial aspect of windowed dressing. No hematoma. VSS. Eating dinner now. Call light in reach. Will monitor. 2035 Transferred to [facility] at this time. Report called to MYA Hernandez. Left in stable condition. No new drainage to LCW. No hematoma. No pain or complaints. Normal [facility] NURSING PROG HNO ID: [id number] Author: BETH NOGUEIRA RN Service: ? Author Type: Registered Nurse Type: Nursing Progress Note Filed: 06/30/2023 17:50 Note Text: 1715 Patient received from EP lab S/P Pacemake placement. Left chest wall with pressure dressing device filled with 30cc of air. Small amount of drainage on the right outer edge. Arousable upon calling. Refer to intra op report for medications given during procedure. HOB elevated 30 degree. Lungs are clear throughout. Temp 98. Moving all extremities x 4. Call vera within reach. Report given to Roque Cisse RN. Normal [facility] Basic metabolic 2000 panelon 06-22-2023 Anion gap [Moles/Vol] 14 mmol/L 9 - 18 mmol/L [facility] Calcium [Mass/Vol] 10.0 mg/dL 8.5 - 10. 2 mg/dL [facility] Chloride [Moles/Vol] 103 mmol/L 97 - 10 5 mmol/L [facility] CO2 [Moles/Vol] 26 mmol/L 22 - 30 mmol/L [facility] Creatinine [Mass/Vol] 1.46 mg/dL High 0.58 - 0.96 mg/dL [facility] Estimated Glomerular Filtration Rate 37 mL/min/1.73m Low >=60 mL/min/1.73m [facility] Glucose [Mass/Vol] 112 mg/dL High 74 - 99 mg/dL [facility] Potassium [Moles/Vol] 3.9 mmol/L 3.7 - 5.1 mmol/L [facility] Sodium [Moles/Vol] 143 mmol/L 136 - 144 mmol/L [facility] Urea nitrogen [Mass/Vol] 32 mg/dL High 7 - 21 mg/dL [facility] Anion gap [Moles/Vol] 14 mmol/L Normal 9-18 [facility] Comment on above: Order Comment: Speci men Type: BLOOD SPECIMENOrdering Facility: [facility] Address: [address] [place] [address] Performed By: #### 2 4321-2 ####[facility]IA [id number] [place] [address] Calcium [Mass/Vol] 10.0 mg/dL Normal 8.5-10.2 [facility] Comment on above: Order Comment: Speci men Type: BLOOD SPECIMENOrdering Facility: [facility] Address: [address] [place] [address] Performed By: #### 2 4321-2 ####[facility] LABCLIA [id number] [place] [address] Chloride [Moles/Vol] 103 mmol/L Normal 97-[address] [facility] Comment on above: Order Comment: Speci men Type: BLOOD SPECIMENOrdering Facility: [facility] Address: [address] [place] [address] Performed By: #### 2 4321-2 ####[facility] [id number] [place] [address] CO2 [Moles/Vol] 26 mmol/L Normal 22-30 [facility] Comment on above: Order Comment: Speci men Type: BLOOD SPECIMENOrdering Facility: [facility] Address: [address] [place] [address] Performed By: #### 2 4321-2 ####[facility] [id number] [place] [address] Creatinine [Mass/Vol] 1.46 mg/dL High 0.58-0.96 [facility] Comment on above: Order Comment: Speci men Type: BLOOD SPECIMENOrdering Facility: [facility] Address: [address] [place] [address] Performed By: #### 2 4321-2 ####[facility] [id number] [place] [address] Creatinine and Glomerular filtration rate.predicted panel (S/P/Bld) 37 mL/min/1.73m??? Low >=60 [facility] Comment on above: Order Comment: Specjono andrew Type: BLOOD SPECIMENOrdering Facility: [facility] Address: [address] [place] [address] Result Comment: Tanisha mated Glomerular Filtration Rate (eGFR) is calculated using the 2020 CKD-EPI creatinine equation. This equation utilizes serum creatinine, sex, and age as parameters. The creatinine assay has traceable calibration to isotope dilution-mass spectrometry. Refer to KDIGO guidelines for clinical interpretation. In patients with unstable renal function, e.g. those with acute kidney injury, the eGFR may not accurately reflect actual GFR. Performed By: #### 2 4321-2 ####[facility]IA [id number] [place] [address] Glucose [Mass/Vol] 112 mg/dL High 74-99 [facility] Comment on above: Order Comment: Specjono andrew Type: BLOOD SPECIMENOrdering Facility: [facility] Address: [address] [place] [address] Result Comment: The [place] Diabetes [employer] (ADA) provides guidance for cutoff values for fasting glucose and random glucose. The ADA defines fasting as no caloric intake for at least 8 hours. Fasting plasma glucose results between 100 to 125 mg/dL indicate increased risk for diabetes (prediabetes).Fasting plasma glucose results greater than or equal to 126 mg/dL meet the criteria for diagnosis of diabetes. In the absence of unequivocal hyperglycemia, results should be confirmed by repeat testing. In a patient with classic symptoms of hyperglycemia or hyperglycemic crisis, random plasma glucose results greater than or equal to 200 mg/dL meet the criteria for diagnosis of diabetes.Reference: Standards of Medical Care in Diabetes 2016, [place] [employer]. Diabetes Care. 2016.39(Suppl 1). Performed By: #### 2 4321-2 ####[facility] LABIA [id number] [place] [address] Potassium [Moles/Vol] 3.9 mmol/L Normal 3.7-5.1 [facility] Comment on above: Order Comment: Speci men Type: BLOOD SPECIMENOrdering Facility: [facility] Address: [address] [place] [address] Performed By: #### 2 4321-2 ####[facility] LABCLIA [id number] [place] [address] Sodium [Moles/Vol] 143 mmol/L Normal 136-144 [facility] Comment on above: Order Comment: Speci men Type: BLOOD SPECIMENOrdering Facility: [facility] Address: [address] [place] [address] Performed By: #### 2 4321-2 ####[facility] LABCLIA [id number] [place] [address] Urea nitrogen [Mass/Vol] 32 mg/dL High 7-21 [facility] Comment on above: Order Comment: Speci men Type: BLOOD SPECIMENOrdering Facility: [facility] Address: [address] [place] [address] Performed By: #### 2 4321-2 ####[facility] LABCLIA [id number] [place] [address] CNPNon 06-22-2023 CNPN Normal [facility] CNOVon 06-17-2023 CNOV Normal [facility] CNPNon 06-17-2023 CNPN Normal [facility] CNOVon 06-15-2023 CNOV Normal [facility] [id number] 06-15-2023 ECG01 Normal [facility] Basic metabolic 2000 panelon 06-14-2023 Anion gap [Moles/Vol] 13 mmol/L Normal 9-18 [facility] Comment on above: Order Comment: Speci men Type: BLOOD SPECIMENOrdering Facility: [facility] Address: [address] [place] [address] Performed By: #### 2 4321-2 ####[facility] LABCLIA [id number] [place] [address] Calcium [Mass/Vol] 9.8 mg/dL Normal 8.5-10.2 [facility] Comment on above: Order Comment: Speci men Type: BLOOD SPECIMENOrdering Facility: [facility] Address: [address] [place] [address] Performed By: #### 2 4321-2 ####[facility] LABCLIA [id number] [place] [address] Chloride [Moles/Vol] 99 mmol/L Normal 97-[address] [facility] Comment on above: Order Comment: Speci men Type: BLOOD SPECIMENOrdering Facility: [facility] Address: [address] [place] [address] Performed By: #### 2 4321-2 ####[facility] LABCLIA [id number] [place] [address] CO2 [Moles/Vol] 27 mmol/L Normal 22-30 [facility] Comment on above: Order Comment: Speci men Type: BLOOD SPECIMENOrdering Facility: [facility] Address: [address] [place] [address] Performed By: #### 2 4321-2 ####[facility] LABCLIA [id number] [place] [address] Creatinine [Mass/Vol] 1.49 mg/dL High 0.58-0.96 [facility] Comment on above: Order Comment: Speci men Type: BLOOD SPECIMENOrdering Facility: [facility] Address: [address] [place] [address] Performed By: #### 2 4321-2 ####[facility] LABCLIA [id number] [place] [address] Creatinine and Glomerular filtration rate.predicted panel (S/P/Bld) 36 mL/min/1.73m??? Low >=60 [facility] Comment on above: Order Comment: Speci men Type: BLOOD SPECIMENOrdering Facility: [facility] Address: [address] [place] [address] Result Comment: Tanisha mated Glomerular Filtration Rate (eGFR) is calculated using the 2020 CKD-EPI creatinine equation. This equation utilizes serum creatinine, sex, and age as parameters. The creatinine assay has traceable calibration to isotope dilution-mass spectrometry. Refer to KDIGO guidelines for clinical interpretation. In patients with unstable renal function, e.g. those with acute kidney injury, the eGFR may not accurately reflect actual GFR. Performed By: #### 2 4321-2 ####[facility] LABCLIA [id number] [place] [address] Glucose [Mass/Vol] 89 mg/dL Normal 74-99 [facility] Comment on above: Order Comment: Speci men Type: BLOOD SPECIMENOrdering Facility: [facility] Address: [address] [place] [address] Result Comment: The [place] [employer] (ADA) provides guidance for cutoff values for fasting glucose and random glucose. The ADA defines fasting as no caloric intake for at least 8 hours. Fasting plasma glucose results between 100 to 125 mg/dL indicate increased risk for diabetes (prediabetes).Fasting plasma glucose results greater than or equal to 126 mg/dL meet the criteria for diagnosis of diabetes. In the absence of unequivocal hyperglycemia, results should be confirmed by repeat testing. In a patient with classic symptoms of hyperglycemia or hyperglycemic crisis, random plasma glucose results greater than or equal to 200 mg/dL meet the criteria for diagnosis of diabetes.Reference: Standards of Medical Care in Diabetes 2016, [place] [employer]. Diabetes Care. 2016.39(Suppl 1). Performed By: #### 2 4321-2 ####[facility] LABCLIA [id number] [place] [address] Potassium [Moles/Vol] 4.1 mmol/L Normal 3.7-5.1 [facility] Comment on above: Order Comment: Gissellei men Type: BLOOD SPECIMENOrdering Facility: [facility] Address: [address] [id number] Performed By: #### 2 4321-2 ####[facility] LABCLIA [id number] [place] [address] Sodium [Moles/Vol] 139 mmol/L Normal 136-144 [facility] Comment on above: Order Comment: Speci men Type: BLOOD SPECIMENOrdering Facility: [facility] Address: [address] [place] [address] Performed By: #### 2 4321-2 ####[facility] LABCLIA [id number] [place] [address] Urea nitrogen [Mass/Vol] 40 mg/dL High 7-21 [facility] Comment on above: Order Comment: Speci men Type: BLOOD SPECIMENOrdering Facility: [facility] Address: [address] [place] [address] Performed By: #### 2 4321-2 ####[facility] LABCLIA [id number] [place] [address] MAMM SCREENING BILATERAL W C nail maker 06-14-2023 MAMM SCREENING BILATERAL W CAD MAMM SCREENING BILATERAL W CAD EXAM: MAMM SCREENING BILATERAL W CAD, 06/14/2023 11:15 AM CLINICAL INDICATIONS: Screening, Visit for screening mammogram. COMPARISON: Mammograms dating back to 07/08/2017 TECHNIQUE: Bilateral digital tomosynthesis MLO and CC views of the breasts were obtained, with creation of synthetic 2D views. Computer aided detection was utilized. FINDINGS: There are scattered areas of fibroglandular density. There are no suspicious masses, calcifications, or areas of architectural distortions. IMPRESSION: No mammographic evidence of malignancy. BI-RADS: BI-RADS 1 - Negative Recommendation: Routine screening mammogram in 1 year. Finalized by Caroline Aguirre MD on 06/14/2023 12:23 PM 1 b MAMM 1 YR Normal [facility] CNPNon 06-10-2023 CNPN Normal [facility] Basic metabolic 2000 panelon 06-09-2023 Anion gap [Moles/Vol] 12 mmol/L Normal 9-18 [facility] Comment on above: Order Comment: Speci men Type: BLOOD SPECIMENOrdering Facility: [facility] Address: [address] [place] [address] Performed By: #### 2 4321-2 ####[facility] LABCLIA [id number] [place] [address] Calcium [Mass/Vol] 9.6 mg/dL Normal 8.5-10.2 [facility] Comment on above: Order Comment: Speci men Type: BLOOD SPECIMENOrdering Facility: [facility] Address: [address] [place] [address] Performed By: #### 2 4321-2 ####[facility] LABCLIA [id number] [place] [address] Chloride [Moles/Vol] 102 mmol/L Normal 97-[address] [facility] Comment on above: Order Comment: Speci men Type: BLOOD SPECIMENOrdering Facility: [facility] Address: [address] [place] [address] Performed By: #### 2 4321-2 ####[facility] LABCLIA [id number] [place] [address] CO2 [Moles/Vol] 26 mmol/L Normal 22-30 [facility] Comment on above: Order Comment: Speci men Type: BLOOD SPECIMENOrdering Facility: [facility] Address: [address] [place] [address] Performed By: #### 2 4321-2 ####[facility] LABCLIA [id number] [place] [address] Creatinine [Mass/Vol] 1.45 mg/dL High 0.58-0.96 [facility] Comment on above: Order Comment: Speci men Type: BLOOD SPECIMENOrdering Facility: [facility] Address: [address] [place], [place] [address] Performed By: #### 2 4321-2 ####[facility] LABCLIA [id number] [place] [address] Creatinine and Glomerular filtration rate.predicted panel (S/P/Bld) 37 mL/min/1.73m??? Low >=60 [facility] Comment on above: Order Comment: Speci men Type: BLOOD SPECIMENOrdering Facility: [facility] Address: [address] [place] [address] Result Comment: Tanisha mated Glomerular Filtration Rate (eGFR) is calculated using the 2020 CKD-EPI creatinine equation. This equation utilizes serum creatinine, sex, and age as parameters. The creatinine assay has traceable calibration to isotope dilution-mass spectrometry. Refer to KDIGO guidelines for clinical interpretation. In patients with unstable renal function, e.g. those with acute kidney injury, the eGFR may not accurately reflect actual GFR. Performed By: #### 2 4321-2 ####[facility] LABCLIA [id number] [place] [address] Glucose [Mass/Vol] 110 mg/dL High 74-99 [facility] Comment on above: Order Comment: [place] andrew Type: BLOOD SPECIMENOrdering Facility: [facility] Address: [address] [place] [address] Result Comment: The [place] Diabetes [employer] (ADA) provides guidance for cutoff values for fasting glucose and random glucose. The ADA defines fasting as no caloric intake for at least 8 hours. Fasting plasma glucose results between 100 to 125 mg/dL indicate increased risk for diabetes (prediabetes).Fasting plasma glucose results greater than or equal to 126 mg/dL meet the criteria for diagnosis of diabetes. In the absence of unequivocal hyperglycemia, results should be confirmed by repeat testing. In a patient with classic symptoms of hyperglycemia or hyperglycemic crisis, random plasma glucose results greater than or equal to 200 mg/dL meet the criteria for diagnosis of diabetes.Reference: Standards of Medical Care in Diabetes 2016, [place] [employer]. Diabetes Care. 2016.39(Suppl 1). Performed By: #### 2 4321-2 ####[facility] LABCLIA [id number] [place] [address] Potassium [Moles/Vol] 4.0 mmol/L Normal 3.7-5.1 [facility] Comment on above: Order Comment: [place] andrew Type: BLOOD SPECIMENOrdering Facility: [facility] Address: [address] [id number] Performed By: #### 2 4321-2 ####[facility] LABCLIA [id number] [place] [address] Sodium [Moles/Vol] 140 mmol/L Normal 136-144 [facility] Comment on above: Order Comment: Speci men Type: BLOOD SPECIMENOrdering Facility: [facility] Address: [address] [place] [address] Performed By: #### 2 4321-2 ####[facility] LABCLIA [id number] [place] [address] Urea nitrogen [Mass/Vol] 33 mg/dL High 7-21 [facility] Comment on above: Order Comment: Speci men Type: BLOOD SPECIMENOrdering Facility: [facility] Address: [address] [place] [address] Performed By: #### 2 4321-2 ####[facility] LABCLIA [id number] [place] [address] NT-proBNP SerPl-ncon 06-09 Natriuretic peptide.B prohormone N-Terminal [Mass/Vol] 6886 pg/mL High <450 [facility] Comment on above: Order Comment: Speci men Type: BLOOD SPECIMENOrdering Facility: [facility] Address: [address] [place] [address] Performed By: #### 3 3762-6, 3051-0, 3024-7, 3016-3 ####[facility] LABCLIA [id number] [place] [address] [place] T3Free SerPl-mCncon 06-09-19 24 Free T3 [Mass/Vol] 2.2 pg/mL Low 2.3-4.1 [facility] Comment on above: Order Comment: Speci men Type: BLOOD SPECIMENOrdering Facility: [facility] Address: [address] [place] [address] Performed By: #### 3 3762-6, 3051-0, 3024-7, 3016-3 ####[facility] LABCLIA [id number] [place] [id number] [place] T4 Free SerPl-mCncon 024 Free T4 [Mass/Vol] 1.2 ng/dL Normal 0.9-1.7 [facility] Comment on above: Order Comment: Speci men Type: BLOOD SPECIMENOrdering Facility: [facility] Address: [address] [place] [address] Performed By: #### 3 3762-6, 3051-0, 3024-7, 3016-3 ####[facility] [id number] [place] [address] [place] TSH SerPl-aCncon 06-09-2023 TSH Qn 3.830 m[IU]/L Normal 0.270-4.200 [facility] Comment on above: Order Comment: Speci men Type: BLOOD SPECIMENOrdering Facility: [facility] Address: [address] [place] [address] Performed By: #### 3 3762-6, 3051-0, 3024-7, 3016-3 ####[facility] [id number] [place] [address] [place] CNOVon 06-02-2023 CNOV Normal [facility] HEMOGLOBIN A1C (POC)on 06-02 HbA1c (Bld) [Mass fraction] 5.4 % 4.3 - 5.6 % [facility] CNPNon 06-01-2023 CNPN Normal [facility] CNOVon 05-31-2023 CNOV Normal [facility] ECG COMPLETEon 05-31-2023 Atrial Rate 104 BPM [facility] Calculated P Reva 47 degrees [facility] Calculated R Reva -90 degrees [facility] Calculated T Reva 76 degrees [facility] P-R Interval 162 ms [facility] QRS Duration 160 ms [facility] QT Interval 392 ms [facility] QTC Calculation (Bazett) 515 ms [facility] Ventricular Rate 104 BPM [facility] [id number] 05-31-2023 ECG01 Normal [facility] CNPNon 05-28-2023 CNPN Normal [facility] Basic metabolic 2000 panelon 05-25-2023 Anion gap [Moles/Vol] 12 mmol/L Normal 9-18 [facility] Comment on above: Order Comment: Speci men Type: BLOOD SPECIMENOrdering Facility: [facility] Address: [address] [place] [address] Performed By: #### 2 4321-2 ####[facility] LABCLIA [id number] [place] [address] [place] Calcium [Mass/Vol] 9.6 mg/dL Normal 8.5-10.2 [facility] Comment on above: Order Comment: Speci men Type: BLOOD SPECIMENOrdering Facility: [facility] Address: [address] [place] [address] Performed By: #### 2 4321-2 ####[facility] LABCLIA [id number] [place] [address] [place] Chloride [Moles/Vol] 102 mmol/L Normal 97-[address] [facility] Comment on above: Order Comment: Speci men Type: BLOOD SPECIMENOrdering Facility: [facility] Address: [address] [place] [address] Performed By: #### 2 4321-2 ####[facility] LABCLIA [id number] [place] [address] [place] CO2 [Moles/Vol] 26 mmol/L Normal 22-30 [facility] Comment on above: Order Comment: Speci men Type: BLOOD SPECIMENOrdering Facility: [facility] Address: [address] [place], [place] [address] Performed By: #### 2 4321-2 ####[facility] LABCLIA [id number] [place] [id number] [place] Creatinine [Mass/Vol] 1.31 mg/dL High 0.58-0.96 [facility] Comment on above: Order Comment: Speci men Type: BLOOD SPECIMENOrdering Facility: [facility] Address: [address] [place] [address] Performed By: #### 2 4321-2 ####[facility] LABIA [id number] [place] [address] [place] Creatinine and Glomerular filtration rate.predicted panel (S/P/Bld) 42 mL/min/1.73m??? Low >=60 [facility] Comment on above: Order Comment: [place] andrew Type: BLOOD SPECIMENOrdering Facility: [facility] Address: [address] [place] [address] Result Comment: Tanisha mated Glomerular Filtration Rate (eGFR) is calculated using the 2020 CKD-EPI creatinine equation. This equation utilizes serum creatinine, sex, and age as parameters. The creatinine assay has traceable calibration to isotope dilution-mass spectrometry. Refer to KDIGO guidelines for clinical interpretation. In patients with unstable renal function, e.g. those with acute kidney injury, the eGFR may not accurately reflect actual GFR. Performed By: #### 2 4321-2 ####[facility] LABIA [id number] [place] [address] [place] Glucose [Mass/Vol] 105 mg/dL High 74-99 [facility] Comment on above: Order Comment: [place] lorrie Type: BLOOD SPECIMENOrdering Facility: [facility] Address: [address] [place] [address] Result Comment: The [place] Diabetes [employer] (ADA) provides guidance for cutoff values for fasting glucose and random glucose. The ADA defines fasting as no caloric intake for at least 8 hours. Fasting plasma glucose results between 100 to 125 mg/dL indicate increased risk for diabetes (prediabetes).Fasting plasma glucose results greater than or equal to 126 mg/dL meet the criteria for diagnosis of diabetes. In the absence of unequivocal hyperglycemia, results should be confirmed by repeat testing. In a patient with classic symptoms of hyperglycemia or hyperglycemic crisis, random plasma glucose results greater than or equal to 200 mg/dL meet the criteria for diagnosis of diabetes.Reference: Standards of Medical Care in Diabetes 2016, [place] [employer]. Diabetes Care. 2016.39(Suppl 1). Performed By: #### 2 4321-2 ####[facility] LABCLIA [id number] [place] [address] [place] Potassium [Moles/Vol] 4.6 mmol/L Normal 3.7-5.1 [facility] Comment on above: Order Comment: Speci men Type: BLOOD SPECIMENOrdering Facility: [facility] Address: [address] [place] [address] Performed By: #### 2 4321-2 ####[facility] LABCLIA [id number] [place] [address] [place] Sodium [Moles/Vol] 140 mmol/L Normal 136-144 [facility] Comment on above: Order Comment: Speci men Type: BLOOD SPECIMENOrdering Facility: [facility] Address: [address] [place] [address] Performed By: #### 2 4321-2 ####[facility] LABCLIA [id number] [place] [address] [place] Urea nitrogen [Mass/Vol] 25 mg/dL High 7-21 [facility] Comment on above: Order Comment: Speci men Type: BLOOD SPECIMENOrdering Facility: [facility] Address: [address] [place] [address] Performed By: #### 2 4321-2 ####[facility] LABCLIA [id number] [place] [address] [place] CBC panel Auto (Bld)on 05-25 Erythrocyte distribution width (RBC) [Ratio] 16.7 % High 11.5-15.0 [facility] Comment on above: Order Comment: Speci men Type: BLOOD SPECIMENOrdering Facility: [facility] Address: [address] [place] [address] Performed By: #### 5 8410-2 ####[facility] LABIA [id number] [address] [id number] [address] [place] Hematocrit (Bld) [Volume fraction] 43.7 % Normal 36.0-46.0 [facility] Comment on above: Order Comment: Speci men Type: BLOOD SPECIMENOrdering Facility: [facility] Address: [address] [place] [address] Performed By: #### 5 8410-2 ####[facility] LABCLIA [id number] [place] [address] [place] Hemoglobin (Bld) [Mass/Vol] 13.1 g/dL Normal 11.5-15.5 [facility] Comment on above: Order Comment: Speci men Type: BLOOD SPECIMENOrdering Facility: [facility] Address: [address] [place] [address] Performed By: #### 5 8410-2 ####[facility] LABCLIA [id number] [place] [address] [place] MCH (RBC) [Entitic mass] 27.3 pg Normal 26.0-34.0 [facility] Comment on above: Order Comment: Speci men Type: BLOOD SPECIMENOrdering Facility: [facility] Address: [address] [place] [address] Performed By: #### 5 8410-2 ####[facility] LABIA [id number] [place] [address] [place] MCHC (RBC) [Mass/Vol] 30.0 g/dL Low 30.5-36.0 [facility] Comment on above: Order Comment: Speci men Type: BLOOD SPECIMENOrdering Facility: [facility] Address: [address] [place] [address] Performed By: #### 5 8410-2 ####[facility] LABCLIA [id number] [place] [address] [place] MCV (RBC) [Entitic vol] 91.2 fL Normal 80.0-100.0 [facility] Comment on above: Order Comment: Speci men Type: BLOOD SPECIMENOrdering Facility: [facility] Address: [address] [place] [address] Performed By: #### 5 8410-2 ####[facility] LABIA [id number] [place] [address] [place] Nucleated RBC (Bld) [#/Vol] 10*3/uL Normal <0.01 [facility] Comment on above: Order Comment: Speci men Type: BLOOD SPECIMENOrdering Facility: [facility] Address: [address] [place] [address] Performed By: #### 5 8410-2 ####[facility] LABIA [id number] [place] [address] [place] Platelet mean volume (Bld) [Entitic vol] 11.2 fL Normal 9.0-12.7 [facility] Comment on above: Order Comment: Speci men Type: BLOOD SPECIMENOrdering Facility: [facility] Address: [address] [place] [address] Performed By: #### 5 8410-2 ####[facility] LABIA [id number] [place] [address] [place] Platelets (Bld) [#/Vol] 240 10*3/uL Normal 150-400 [facility] Comment on above: Order Comment: Speci men Type: BLOOD SPECIMENOrdering Facility: [facility] Address: [address] [place] [address] Performed By: #### 5 8410-2 ####[facility] LABIA [id number] [place] [address] [place] RBC (Bld) [#/Vol] 4.79 10*6/uL Normal 3.90-5.20 [facility] Comment on above: Order Comment: Speci men Type: BLOOD SPECIMENOrdering Facility: [facility] Address: [address] [place] [address] Performed By: #### 5 8410-2 ####[facility] LABCLIA [id number] [place] [address] [place] WBC (Bld) [#/Vol] 10.26 10*3/uL Normal 3.70-11.[address] [facility] Comment on above: Order Comment: Speci men Type: BLOOD SPECIMENOrdering Facility: [facility] Address: [address] [place] [address] Performed By: #### 5 8410-2 ####[facility] LABCLIA [id number] [place] [address] [place] [facility] CBC PNL BLD AUTOon 05-25 [facility] NRBC # BLD AUTO <0.01 [facility] PLATELET # BLD AUTO 240 [facility] PMV BLD AUTO 11.2 fL 9.0 - 12.7 fL [facility] WBC # BLD AUTO 10.26 [facility] Erythrocyte distribution width (RBC) [Ratio] 16.7 % High 11.5 - 15.0 % [facility] Hematocrit (Bld) [Volume fraction] 43.7 % 36.0 - 46.0 % [facility] Hemoglobin (Bld) [Mass/Vol] 13.1 g/dL 11.5 - 15.5 g/dL [facility] Interpretation and review of laboratory results Abnormal [facility] MCH (RBC) [Entitic mass] 27.3 pg 26.0 - 34.0 pg [facility] MCHC (RBC) [Mass/Vol] 30.0 g/dL Low 30.5 - 36.0 g/dL [facility] MCV (RBC) [Entitic vol] 91.2 fL 80.0 - 100.0 fL [facility] RBC (Bld) [#/Vol] 4.79 10*6/uL 3.90 - 5.2 0 m/uL [facility] Specimen Type: BLOOD SPECIMEN Ordering Facility: [facility] Address: [address] [place] [address] Original Ordering Provider: [facility] CNOVon 05-25-2023 CNOV Normal [facility] ECHOon 05-25-2023 [facility] CNPNon 04-30-2023 CNPN Normal [facility] Basic metabolic 2000 panelon 04-16-2023 Anion gap [Moles/Vol] 11 mmol/L Normal 9-18 [facility] Comment on above: Order Comment: Speci men Type: BLOOD SPECIMENOrdering Facility: [facility] Address: [address] [place] [address] Performed By: #### 2 4321-2 ####[facility] LABCLIA [id number] [place] [address] [place] Calcium [Mass/Vol] 9.4 mg/dL Normal 8.5-10.2 [facility] Comment on above: Order Comment: Speci men Type: BLOOD SPECIMENOrdering Facility: [facility] Address: [address] [place] [address] Performed By: #### 2 4321-2 ####[facility] LABCLIA [id number] [place] [address] [place] Chloride [Moles/Vol] 104 mmol/L Normal 97-[address] [facility] Comment on above: Order Comment: Speci men Type: BLOOD SPECIMENOrdering Facility: [facility] Address: [address] [place] [address] Performed By: #### 2 4321-2 ####[facility] LABCLIA [id number] [place] [address] [place] CO2 [Moles/Vol] 26 mmol/L Normal 22-30 [facility] Comment on above: Order Comment: Speci men Type: BLOOD SPECIMENOrdering Facility: [facility] Address: [address] [place] [address] Performed By: #### 2 4321-2 ####[facility] LABCLIA [id number] [place] [address] [place] Creatinine [Mass/Vol] 1.04 mg/dL High 0.58-0.96 [facility] Comment on above: Order Comment: Speci men Type: BLOOD SPECIMENOrdering Facility: [facility] Address: [address] [place] [address] Performed By: #### 2 4321-2 ####[facility] LABIA [id number] [place] [address] [place] Creatinine and Glomerular filtration rate.predicted panel (S/P/Bld) 56 mL/min/1.73m??? Low >=60 [facility] Comment on above: Order Comment: [place] andrew Type: BLOOD SPECIMENOrdering Facility: [facility] Address: [address] [place] [address] Result Comment: Tanisha mated Glomerular Filtration Rate (eGFR) is calculated using the 2020 CKD-EPI creatinine equation. This equation utilizes serum creatinine, sex, and age as parameters. The creatinine assay has traceable calibration to isotope dilution-mass spectrometry. Refer to KDIGO guidelines for clinical interpretation. In patients with unstable renal function, e.g. those with acute kidney injury, the eGFR may not accurately reflect actual GFR. Performed By: #### 2 4321-2 ####[facility] LABIA [id number] [place] [address] [place] Glucose [Mass/Vol] 101 mg/dL High 74-99 [facility] Comment on above: Order Comment: [place] andrew Type: BLOOD SPECIMENOrdering Facility: [facility] Address: [address] [place] [address] Result Comment: The [place] Diabetes [employer] (ADA) provides guidance for cutoff values for fasting glucose and random glucose. The ADA defines fasting as no caloric intake for at least 8 hours. Fasting plasma glucose results between 100 to 125 mg/dL indicate increased risk for diabetes (prediabetes).Fasting plasma glucose results greater than or equal to 126 mg/dL meet the criteria for diagnosis of diabetes. In the absence of unequivocal hyperglycemia, results should be confirmed by repeat testing. In a patient with classic symptoms of hyperglycemia or hyperglycemic crisis, random plasma glucose results greater than or equal to 200 mg/dL meet the criteria for diagnosis of diabetes.Reference: Standards of Medical Care in Diabetes 2016, [place] [employer]. Diabetes Care. 2016.39(Suppl 1). Performed By: #### 2 4321-2 ####[facility] LABCLIA [id number] [place] [address] [place] Potassium [Moles/Vol] 4.6 mmol/L Normal 3.7-5.1 [facility] Comment on above: Order Comment: Speci men Type: BLOOD SPECIMENOrdering Facility: [facility] Address: [address] [place] [address] Performed By: #### 2 4321-2 ####[facility] LABCLIA [id number] [place] [address] [place] Sodium [Moles/Vol] 141 mmol/L Normal 136-144 [facility] Comment on above: Order Comment: Speci men Type: BLOOD SPECIMENOrdering Facility: [facility] Address: [address] [place] [address] Performed By: #### 2 4321-2 ####[facility] LABCLIA [id number] [place] [address] [place] Urea nitrogen [Mass/Vol] 18 mg/dL Normal 7-21 [facility] Comment on above: Order Comment: Speci men Type: BLOOD SPECIMENOrdering Facility: [facility] Address: [address] [place] [address] Performed By: #### 2 4321-2 ####[facility] LABCLIA [id number] [place] [id number] [place] CNNURSEon 04-16-2023 CNNURSE Normal [facility] CNPNon 04-14-2023 CNPN Normal [facility] Glucose Glucometer (BldC) [M ass/Vol]on 04-14-2023 Glucose [Mass/Vol] 93 mg/dL 65 - 99 mg/dL [facility] Glucose [Mass/Vol] 93 mg/dL Normal 65-99 [facility] Glucose [Mass/Vol] 111 mg/dL High 65 - 99 mg/dL [facility] Interpretation and review of laboratory results Abnormal [facility] Glucose [Mass/Vol] 111 mg/dL High 65-99 [facility] Glucose Glucometer (BldC) [M ass/Vol]on 04-08-2023 Glucose [Mass/Vol] 82 mg/dL Normal 65-99 [facility] Glucose [Mass/Vol] 93 mg/dL 65 - 99 mg/dL [facility] Glucose [Mass/Vol] 93 mg/dL Normal 65-99 [facility] Glucose Glucometer (BldC) [M ass/Vol]on 04-07-2023 Glucose [Mass/Vol] 85 mg/dL Normal 65-99 [facility] Glucose [Mass/Vol] 95 mg/dL Normal 65-99 [facility] Glucose Glucometer (BldC) [M ass/Vol]on 03-31-2023 Glucose [Mass/Vol] 97 mg/dL Normal 65-99 [facility] Glucose [Mass/Vol] 120 mg/dL High 65-99 [facility] Glucose Glucometer (BldC) [M ass/Vol]on 03-29-2023 Glucose [Mass/Vol] 95 mg/dL Normal 65-99 [facility] Glucose [Mass/Vol] 112 mg/dL High 65-99 [facility] CNOVon 03-22-2023 CNOV Normal [facility] CNPNon 03-19-2023 CNPN Normal [facility] CNPNon 03-16-2023 CNPN Normal [facility] CNPNon 03-11-2023 CNPN Normal [facility] Basic metabolic 2000 panelon 03-01-2023 Anion gap [Moles/Vol] 9 mmol/L Normal 9-18 [facility] Comment on above: Order Comment: Speci men Type: BLOOD SPECIMENOrdering Facility: [facility] Address: [address] [place] [address] [place] [address] Performed By: #### 2 4321-2 ####[facility] LABCLIA [id number] [place] [address] Calcium [Mass/Vol] 9.8 mg/dL Normal 8.5-10.2 [facility] Comment on above: Order Comment: Speci men Type: BLOOD SPECIMENOrdering Facility: [facility] Address: [address] [place] [address] Performed By: #### 2 4321-2 ####[facility] LABCLIA [id number] [place] [address] Chloride [Moles/Vol] 105 mmol/L Normal 97-[address] [facility] Comment on above: Order Comment: Speci men Type: BLOOD SPECIMENOrdering Facility: [facility] Address: [address] [place] [address] Performed By: #### 2 4321-2 ####[facility] LABCLIA [id number] [place] [address] CO2 [Moles/Vol] 26 mmol/L Normal 22-30 [facility] Comment on above: Order Comment: Speci men Type: BLOOD SPECIMENOrdering Facility: [facility] Address: [address] [place] [address] Performed By: #### 2 4321-2 ####[facility] LABCLIA [id number] [place] [address] Creatinine [Mass/Vol] 1.26 mg/dL High 0.58-0.96 [facility] Comment on above: Order Comment: Speci men Type: BLOOD SPECIMENOrdering Facility: [facility] Address: [address] [place] [address] Performed By: #### 2 4321-2 ####[facility] LABCLIA [id number] [place] [address] Creatinine and Glomerular filtration rate.predicted panel (S/P/Bld) 44 mL/min/1.73m??? Low >=60 [facility] Comment on above: Order Comment: Speci men Type: BLOOD SPECIMENOrdering Facility: [facility] Address: [address] [place] [address] Result Comment: Tanisha mated Glomerular Filtration Rate (eGFR) is calculated using the 2020 CKD-EPI creatinine equation. This equation utilizes serum creatinine, sex, and age as parameters. The creatinine assay has traceable calibration to isotope dilution-mass spectrometry. Refer to KDIGO guidelines for clinical interpretation. In patients with unstable renal function, e.g. those with acute kidney injury, the eGFR may not accurately reflect actual GFR. Performed By: #### 2 4321-2 ####[facility] LABCLIA [id number] [place] [address] Glucose [Mass/Vol] 123 mg/dL High 74-99 [facility] Comment on above: Order Comment: Speci men Type: BLOOD SPECIMENOrdering Facility: [facility] Address: [address] [place], [place] [address] Result Comment: The [place] Diabetes Association (ADA) provides guidance for cutoff values for fasting glucose and random glucose. The ADA defines fasting as no caloric intake for at least 8 hours. Fasting plasma glucose results between 100 to 125 mg/dL indicate increased risk for diabetes (prediabetes).Fasting plasma glucose results greater than or equal to 126 mg/dL meet the criteria for diagnosis of diabetes. In the absence of unequivocal hyperglycemia, results should be confirmed by repeat testing. In a patient with classic symptoms of hyperglycemia or hyperglycemic crisis, random plasma glucose results greater than or equal to 200 mg/dL meet the criteria for diagnosis of diabetes.Reference: Standards of Medical Care in Diabetes 2016, [place] [employer]. Diabetes Care. 2016.39(Suppl 1). Performed By: #### 2 4321-2 ####[facility] LABCLIA [id number] [place] [address] Potassium [Moles/Vol] 4.3 mmol/L Normal 3.7-5.1 [facility] Comment on above: Order Comment: Speci men Type: BLOOD SPECIMENOrdering Facility: [facility] Address: [address] [place] [address] Performed By: #### 2 4321-2 ####[facility] LABCLIA [id number] [place] [address] Sodium [Moles/Vol] 140 mmol/L Normal 136-144 [facility] Comment on above: Order Comment: Speci men Type: BLOOD SPECIMENOrdering Facility: [facility] Address: [address] [place] [address] Performed By: #### 2 4321-2 ####[facility] LABCLIA [id number] [place] [address] Urea nitrogen [Mass/Vol] 26 mg/dL High 7-21 [facility] Comment on above: Order Comment: Speci men Type: BLOOD SPECIMENOrdering Facility: [facility] Address: [address] [place] [address] Performed By: #### 2 4321-2 ####[facility] LABCLIA [id number] [place] [address] CNPNon 02-25-2023 CNPN Normal [facility] Urinalysis, reflex to cultur jaqui 02-25-2023 Urine Reflexed to Culture Yes Normal [facility] Comment on above: Performed By: #### C OVRG #### [facility] [address] [place] [address] Urine Microscopicon 02-26-20 23 Urine Bacteria MODERATE Abnormal Negative [facility] Comment on above: Performed By: #### C OVRG #### [facility] [address] [place] [address] CBC With Platelet and Differ entialon 02-24-2023 Basophils (Bld) [#/Vol] 0.1 10*3/uL Normal 0.0-0.2 [facility] Comment on above: Performed By: #### C BCWD #### [facility] [address] [place] [address] Basophils/100 WBC (Bld) 0.4 % Normal [facility] Comment on above: Performed By: #### C BCWD #### [facility] [address] [place] [address] Eosinophils (Bld) [#/Vol] 0.1 10*3/uL Normal 0.0-0.7 [facility] Comment on above: Performed By: #### C BCWD #### [facility] [address] [place] [address] Eosinophils/100 WBC (Bld) 0.9 % Normal [facility] Comment on above: Performed By: #### C BCWD #### [facility] [address] [place] [address] Erythrocyte distribution width (RBC) [Ratio] 16.4 % Critically high 11.5-14.5 [facility] Comment on above: Performed By: #### C BCWD #### [facility] [address] [place] [address] Hematocrit (Bld) [Volume fraction] 36.2 % Low 37.0-47.0 [facility] Comment on above: Performed By: #### C BCWD #### [facility] [address] [place] [address] Hemoglobin (Bld) [Mass/Vol] 11.4 g/dL Low 12.0-16.0 [facility] Comment on above: Performed By: #### C BCWD #### [facility] [address] [place] [address] Lymphocytes (Bld) [#/Vol] 2.2 10*3/uL Normal 1.0-4.8 [facility] Comment on above: Performed By: #### C BCWD #### [facility] [address] [place] [address] Lymphocytes/100 WBC (Bld) 14.4 % Normal [facility] Comment on above: Performed By: #### C BCWD #### [facility] [address] [place] [address] MCH (RBC) [Entitic mass] 27.9 pg Normal 27.0-31.3 [facility] Comment on above: Performed By: #### C BCWD #### [facility] [address] [place] [address] MCHC 31.5 % Low 33.0-37.0 [facility] Comment on above: Performed By: #### C BCWD #### [facility] [address] [place] [address] MCV (RBC) [Entitic vol] 88.7 fL Normal 79.4-94.8 [facility] Comment on above: Performed By: #### C BCWD #### [facility] [address] [place] [address] Monocytes (Bld) [#/Vol] 1.4 10*3/uL Critically high 0.2-0.8 [facility] Comment on above: Performed By: #### C BCWD #### [facility] [address] [place] [address] Monocytes/100 WBC (Bld) 9.2 % Normal [facility] Comment on above: Performed By: #### C BCWD #### [facility] [address] [place] [address] Neutrophils (Bld) [#/Vol] 11.3 10*3/uL Critically high 1.4-6.5 [facility] Comment on above: Performed By: #### C BCWD #### [facility] [address] [place] [address] Neutrophils/100 WBC (Bld) 74.6 % Normal [facility] Comment on above: Performed By: #### C BCWD #### [facility] [address] [place] [address] Platelets (Bld) [#/Vol] 196 10*3/uL Normal 130-400 [facility] Comment on above: Performed By: #### C BCWD #### [facility] [address] [place] [address] RBC (Bld) [#/Vol] 4.08 10*6/uL Low 4.20-5.40 [facility] Comment on above: Performed By: #### C BCWD #### [facility] [address] [place] [address] WBC (Bld) [#/Vol] 15.1 10*3/uL Critically high 4.8-10.8 [facility] Comment on above: Performed By: #### C BCWD #### [facility] [address] [place] [address] CNOVon 02-24-2023 CNOV Normal [facility] COVID-19on 02-24-2023 SARS-CoV-2 (COVID-19) RNA JAKE+probe Ql (Unsp spec) Not detected Normal Not Detect [facility] Comment on above: Result Comment: Rapi d NAAT: Negative results should be treated as presumptive and, if inconsistent with clinical signs and symptoms or necessary for patient management, should be tested with an alternative molecular assay. Negative results do not preclude SARS-CoV-2 infection and should not be used as the sole basis for patient management decisions. This test has been authorized by the FDA under an Emergency Use Authorization (EUA) for use by authorized laboratories. Fact sheet for Healthcare Providers: https://www.fda.gov/media/081843/download Fact sheet for Patients: https://www.fda.gov/media/204198/download METHODOLOGY: Isothermal Nucleic Acid Amplification Performed By: #### C OVRG #### [facility] [address] [place] [address] Comprehensive Metabolic Pane raz 02-24-2023 Albumin [Mass/Vol] 3.4 g/dL Low 3.5-4.6 [facility] Comment on above: Performed By: #### C OVRG #### [facility] [address] [place] [address] ALP [Catalytic activity/Vol] 114 U/L Normal 40-130 [facility] Comment on above: Performed By: #### C OVRG #### [facility] [address] [place] [address] ALT [Catalytic activity/Vol] 11 U/L Normal 0-33 [facility] Comment on above: Performed By: #### C OVRG #### [facility] [address] [place] [address] Anion gap [Moles/Vol] 14 mmol/L Normal 9-15 [facility] Comment on above: Performed By: #### C OVRG #### [facility] [address] [place] [address] AST [Catalytic activity/Vol] 17 U/L Normal 0-35 [facility] Comment on above: Performed By: #### C OVRG #### [facility] [address] [place] [address] Bilirubin [Mass/Vol] 1.0 mg/dL Critically high 0.2-0.7 [facility] Comment on above: Performed By: #### C OVRG #### [facility] [address] [place] [address] Calcium [Mass/Vol] 8.7 mg/dL Normal 8.5-9.9 [facility] Comment on above: Performed By: #### C OVRG #### [facility] [address] [place] [address] Chloride [Moles/Vol] 100 mmol/L Normal 95-107 [facility] Comment on above: Performed By: #### C OVRG #### [facility] [address] [place] [address] CO2 [Moles/Vol] 22 mmol/L Normal 20-31 [facility] Comment on above: Performed By: #### C OVRG #### [facility] [address] [place] [address] Creatinine [Mass/Vol] 1.72 mg/dL Critically high 0.50-0.90 [facility] Comment on above: Performed By: #### C OVRG #### [facility] [address] [place] [address] GFR 30.4 Low >60 [facility] Comment on above: Result Comment: Siddharthi atric calculator link https://www.kidney.org/professionals/kdoqi/gfr_calculatorped Effective Jan 12, 2022 These results are not intended for use in patients <18 years of age. eGFR results are calculated without a race factor using the 2020 CKD-EPI equation. Careful clinical correlation is recommended, particularly when comparing to results calculated using previous equations. The CKD-EPI equation is less accurate in patients with extremes of muscle mass, extra-renal metabolism of creatinine, excessive creatinine ingestion, or following therapy that affects renal tubular secretion. Performed By: #### C OVRG #### [facility] [address] [place] [address] Globulin (S) [Mass/Vol] 3.0 g/dL Normal 2.3-3.5 [facility] Comment on above: Performed By: #### C OVRG #### [facility] [address] [place] [address] Glucose [Mass/Vol] 112 mg/dL Critically high 70-99 [facility] Comment on above: Performed By: #### C OVRG #### [facility] [address] [place] [address] Potassium [Moles/Vol] 3.6 mmol/L Normal 3.4-4.9 [facility] Comment on above: Performed By: #### C OVRG #### [facility] [address] [place] [address] Protein [Mass/Vol] 6.4 g/dL Normal 6.3-8.0 [facility] Comment on above: Performed By: #### C OVRG #### [facility] [address] [place] [address] Sodium [Moles/Vol] 136 mmol/L Normal 135-144 [facility] Comment on above: Performed By: #### C OVRG #### [facility] [address] [place] [address] Urea nitrogen [Mass/Vol] 31 mg/dL Critically high 8-23 [facility] Comment on above: Performed By: #### C OVRG #### [facility] [address] [place] [address] Culture, Urineon 11-15-2023 Culture, Urine ORDER#: [id number] ORDERED BY: TANIA CAZARES SOURCE: Urine Clean Catch COLLECTED: 02/24/23 15:45 ANTIBIOTICS AT NELLY.: RECEIVED : 02/25/23 00:27 Culture, Urine FINAL 02/26/23 12:12 Cult,Urine: NO SIGNIFICANT GROWTH Performed at [address] [id number] ([phone] Normal [facility] Comment on above: Performed By: #### C XURN #### [facility] [address] [facility] [address] D-Dimer Quanton 02-24-2023 D-Dimer Quant 2.01 mg/L FEU Critically high 0.00-0.50 [facility] Comment on above: Order Comment: CALL [facility] tel. [phone], DIMER results called to and read back by DR WALSH, 02/24/2023 17:10, by PALSO Result Comment: VTE (DVT or PE) cut-off = 0.50 mg/L FEU Performed By: #### D RITU #### [facility] [address] [place] [address] High Sensitivity Troponin To n 02-24-2023 High Sensitivity Troponin T 406 ng/L Critically high 0-19 [facility] Comment on above: Order Comment: CALL [facility] tel. [phone], Chemistry results called to and read back by JAZMYNE MAURER RN, 02/24/2023 20:02, by WEBAM Result Comment: High Sensitivity Troponin values cannot be compared with other Troponin methodologies. Performed By: #### T RP5 #### [facility] [address] [place] [address] High Sensitivity Troponin T 427 ng/L Critically high 0-19 [facility] Comment on above: Order Comment: CALL [facility] tel. [phone], TRP5 results called to and read back by BETH PORTILLO, 02/24/2023 19:24, by WEBAM Result Comment: High Sensitivity Troponin values cannot be compared with other Troponin methodologies. Performed By: #### T RP5 #### [facility] [address] [place] [address] High Sensitivity Troponin T 487 ng/L Critically high 0-19 [facility] Comment on above: Order Comment: CALL [facility] tel. [phone], TROP results called to and read back by MIESHA Nogueirae, 02/24/2023 17:13, by YARELIS Result Comment: High Sensitivity Troponin values cannot be compared with other Troponin methodologies. Performed By: #### T RP5 #### [facility] [address] [facility] [place] [address] Lactic Acidon 02-24-2023 Lactate [Moles/Vol] 1.0 mmol/L Normal 0.5-2.2 [facility] Comment on above: Performed By: #### L ACID #### [facility] [address] [place] [address] Magnesiumon 02-24-2023 Magnesium [Mass/Vol] 2.5 mg/dL Critically high 1.7-2.4 [facility] Comment on above: Performed By: #### M G #### [facility] [address] [place] [address] NM LUNG VENT/PERFUSION (VQ)o n 02-24-2023 NM LUNG VENT/PERFUSION (VQ) EXAMINATION: NUCLEAR MEDICINE VENTILATION PERFUSION SCAN. 02/24/2023 TECHNIQUE: 1 millicuries aerosolized Tc99m DTPA was administered via mask prior to planar imaging of the lungs in multiple projections. Then, 5.6 millicuries of Tc 99m MAA was administered intravenously prior to planar imaging of the lungs in similar projections. COMPARISON: Chest radiograph February 24.. HISTORY: ORDERING SYSTEM PROVIDED HISTORY: PE TECHNOLOGIST PROVIDED HISTORY: Reason for exam:->PE Decision Support Exception - unselect if not a suspected or confirmed emergency medical condition->Emergency Medical Condition (MA) What reading provider will be dictating this exam?->CRC FINDINGS: There is an overall preserved perfusion for the right left lung. Areas of diminished radionuclide activity in the left lung at the base posteriorly are related with the presence of the heart more anteriorly. The ventilation pattern of the lungs are preserved. No areas of air trapping or lack ventilation. The chest radiograph demonstrate borderline size heart. Slight prominence of perihilar vessels seen. No sizable infiltrates or consolidations are observed. IMPRESSION: Low probability for pulmonary embolus. Interpreted by: Jackson Wong MD Signed by: Jackson Wong MD 02/24/23 Final result Normal [facility] Procalcitoninon 02-24-2023 Procalcitonin 0.10 ng/mL Normal 0.00-0.15 [facility] Comment on above: Order Comment: CALL [facility] tel. [phone], TROP results called to and read back by MIESHA Faria, 02/24/2023 17:13, by YARELIS Result Comment: Susp ected Sepsis: Low likelihood of sepsis <.50 ng/mL Increased likelihood of sepsis 0.50-2.00 ng/mL Antibiotics encouraged High risk of sepsis/shock >2.00 ng/mL Antibiotics strongly encouraged Suspected Lower Respiratory Tract Infections: Low likelihood of bacterial infection <0.24 ng/mL Increased likelihood of bacterial infection >0.24 ng/mL Antibiotics encouraged With successful antibiotic therapy, PCT levels should decrease rapidly. (Half-life of 24 to 36 hours.) Procalcitonin values from samples collected within the first 6 hours of systemic infection may still be low. Retesting may be indicated. Values from day 1 and day 4 can be entered into the Change in Procalcitonin Calculator to determine the patient's Mortality Risk Prognosis ([email or web address]) In healthy neonates, plasma Procalcitonin (PCT) concentrations increase gradually after , reaching peak values at about 24 hours of age then decrease to normal values below 0.5 ng/mL by 48-72 hours of age. Performed By: #### P ROCT #### [facility] [address] [facility] [address] Urinalysis, reflex to cultur jaqui 02-24-2023 Bilirubin Ql (U) Negative Normal Negative [facility] Comment on above: Performed By: #### C OVRG #### [facility] [address] [place] [address] Clarity (U) CLOUDY Abnormal Clear [facility] Comment on above: Performed By: #### C OVRG #### [facility] [address] [place] [address] Color (U) Yellow Normal Straw/Rains [facility] Comment on above: Performed By: #### C OVRG #### [facility] [address] [place] [address] Glucose Ql (U) Negative Normal Negative [facility] Comment on above: Performed By: #### C OVRG #### [facility] [address] [place] [address] Hemoglobin Ql (U) TRACE Abnormal Negative [facility] Comment on above: Performed By: #### C OVRG #### [facility] [address] [place] [address] Ketones Ql (U) Negative Normal Negative [facility] Comment on above: Performed By: #### C OVRG #### [facility] [address] [place] [address] Leukocyte esterase Test strip Ql (U) Negative Normal Negative [facility] Comment on above: Performed By: #### C OVRG #### [facility] [address] [place] [address] Nitrite Ql (U) Negative Normal Negative [facility] Comment on above: Performed By: #### C OVRG #### [facility] [address] [place] [address] pH (U) 5.5 [pH] Normal 5.0-9.0 [facility] Comment on above: Performed By: #### C OVRG #### [facility] [address] [place] [address] Protein Ql (U) 100 mg/dL Abnormal Negative [facility] Comment on above: Performed By: #### C OVRG #### [facility] [address] [place] [address] Specific gravity (U) [Rel density] 1.013 Normal 1.005-1.03 [facility] Comment on above: Performed By: #### C OVRG #### [facility] [address] [place] [address] Urobilinogen Qn (U) 0.2 {Trista'U}/dL Normal < 2.0 [facility] Comment on above: Performed By: #### C OVRG #### [facility] [address] [place] [address] Urine Microscopicon 02-25-20 23 Urine Epithelial Cells Auto 10-20 Normal 0-5 [facility] Comment on above: Performed By: #### C OVRG #### [facility] [address] [place] [address] Urine RBC Auto 6-10 Abnormal 0-5 [facility] Comment on above: Performed By: #### C OVRG #### [facility] [address] [place] [address] Urine WBC Auto 10-20 Abnormal 0-5 [facility] Comment on above: Performed By: #### C OVRG #### [facility] [address] [place] [address] XR CHEST PORTABLEon 02-25-20 XR CHEST PORTABLE EXAMINATION: ONE XRAY VIEW OF THE CHEST 02/24/2023 3:38 pm COMPARISON: None. HISTORY: ORDERING SYSTEM PROVIDED HISTORY: pre-syncope TECHNOLOGIST PROVIDED HISTORY: Reason for exam:->pre-syncope What reading provider will be dictating this exam?->CRC FINDINGS: Cardiac devices are superimposed over the mediastinum. The heart is enlarged. Chronic interstitial changes are noted in the perihilar regions. No pneumothorax identified. Blunting of the left costophrenic angle is noted. IMPRESSION: Blunting of the left costophrenic angle is noted. This may reflect effusion and/or atelectasis. Cardiomegaly. Interpreted by: Erasto Parker MD Signed by: Erasto Parker MD 02/24/23 Final result Normal [facility] proBNPon 02-24-2023 Natriuretic peptide B (Bld) [Mass/Vol] 1500 pg/mL Normal [facility] Comment on above: Order Comment: CALL [facility] tel. [phone],TROP results called to and read back by MIESHA Faria, 02/24/2023 17:13, by YARELIS Result Comment: NT-p ro BNP ACUTE Interpretive Guidelines: Age Cutoff for Heart Failure Less than 50 yrs 450 pg/mL 50-75 yrs 900 pg/mL Greater than 75 yrs 1800 pg/mL NT-pro BNP NON-ACUTE Interpretive Guidelines: Age Reference Range Less than 74 yrs 0-125 pg/mL Greater than 74 yrs 0-450 pg/mL Other possible causes of an elevated NT-proBNP include: cardiac ischemia, acute coronary syndrome, COPD, pneumonia, atrial fibrillation, pulmonary emboli, pulmonary hypertension, pericarditis Reference: Carmen Limon et al. NT-proBNP testing for diagnosis and short-term prognosis in acute destabilized HF: an international pooled analysis of 1256 patients. Heart Journal. 2006;27:330-337 Performed By: #### C OVRG #### [facility] [address] [facility] [address] NURSING PROGon 02-19-2023 NURSING PROG HNO ID: [id number] Author: Nichelle Purcell RN Service: Nursing Author Type: Registered Nurse Type: Nursing Progress Note Filed: 02/19/2023 9:08 AM Note Text: 0730 Report received from previous nurse, assumed care 0800 See NPR for complete assessment tele SR on monitor Right radial site free from hematoma or bleeding 0810 Pt being fitted for life vest at this time 0900 Pt declined AM medications, stating will take own medications. IV heplock removed Discharge instructions reviewed with pt 0908 Pt left unit via wheelchair with all belongings Normal [facility] NURSING PROG HNO ID: [id number] Author: Sera Valdez RN Service: Nursing Author Type: Registered Nurse Type: Nursing Progress Note Filed: 02/19/2023 6:18 AM Note Text: Nursing Progress Note Topic of Note: Daily Note PATIENT NAME: Arleth Elias Patient Location: [id number] Room: [id number] 1900 Report received from previous shift nurse. resting comfortably without complaints throughout the night, VSS, SR on monitor. Dr. Marley updated on pt. condition and plavix loading dose to be given in a.m. cont. monitoring maintained. Pt. to be d/c in am after life vest fitting. This note was completed by: Sera Valdez Normal [facility] Basic metabolic 2000 panelon 02-18-2023 Anion gap [Moles/Vol] 16 mmol/L Normal 9-18 [facility] Comment on above: Order Comment: Speci men Type: BLOOD SPECIMEN Ordering Facility: [facility] Address: [address] [place] [address] Performed By: #### 2 4321-2 #### [facility] CLIA [id number] [address] [place] [address] [place] Calcium [Mass/Vol] 8.6 mg/dL Normal 8.5-10.2 [facility] Comment on above: Order Comment: Speci men Type: BLOOD SPECIMEN Ordering Facility: [facility] Address: [address] [place] [address] Performed By: #### 2 4321-2 #### [facility] CLIA [id number] [address] [place] [address] [place] Chloride [Moles/Vol] 100 mmol/L Normal 97-105 [facility] Comment on above: Order Comment: Speci men Type: BLOOD SPECIMEN Ordering Facility: [facility] Address: [address] [place] [address] Performed By: #### 2 4321-2 #### [facility] CLIA [id number] [address] [place] [address] [place] CO2 [Moles/Vol] 22 mmol/L Normal 22-30 [facility] Comment on above: Order Comment: Speci men Type: BLOOD SPECIMEN Ordering Facility: [facility] Address: [address] [place] [address] Performed By: #### 2 4321-2 #### [facility] CLIA [id number] [address] [place] [address] [place] Creatinine [Mass/Vol] 0.89 mg/dL Normal 0.58-0.96 [facility] Comment on above: Order Comment: Brokolyn andrew Type: BLOOD SPECIMEN Ordering Facility: [facility] Address: [address] [place] [address] Performed By: #### 2 4321-2 #### [facility] CLIA [id number] [address] [place] [address] [place] Creatinine and Glomerular filtration rate.predicted panel (S/P/Bld) 67 mL/min/1.73m??? Normal >=60 [facility] Comment on above: Order Comment: Brooklyn andrew Type: BLOOD SPECIMEN Ordering Facility: [facility] Address: [address] [place] [address] Result Comment: Tanisha mated Glomerular Filtration Rate (eGFR) is calculated using the 2020 CKD-EPI creatinine equation. This equation utilizes serum creatinine, sex, and age as parameters. The creatinine assay has traceable calibration to isotope dilution-mass spectrometry. Refer to KDIGO guidelines for clinical interpretation. In patients with unstable renal function, e.g. those with acute kidney injury, the eGFR may not accurately reflect actual GFR. Performed By: #### 2 4321-2 #### [facility] CLIA [id number] [place] [address] [place] Glucose [Mass/Vol] 206 mg/dL High 74-99 [facility] Comment on above: Order Comment: Brooklyn lorrie Type: BLOOD SPECIMEN Ordering Facility: [facility] Address: [address] [place] [address] Result Comment: The [place] Diabetes [employer] (ADA) provides guidance for cutoff values for fasting glucose and random glucose. The ADA defines fasting as no caloric intake for at least 8 hours. Fasting plasma glucose results between 100 to 125 mg/dL indicate increased risk for diabetes (prediabetes). Fasting plasma glucose results greater than or equal to 126 mg/dL meet the criteria for diagnosis of diabetes. In the absence of unequivocal hyperglycemia, results should be confirmed by repeat testing. In a patient with classic symptoms of hyperglycemia or hyperglycemic crisis, random plasma glucose results greater than or equal to 200 mg/dL meet the criteria for diagnosis of diabetes. Reference: Standards of Medical Care in Diabetes 2016, [place] [employer]. Diabetes Care. 2016.39(Suppl 1). Performed By: #### 2 4321-2 #### [facility] CLIA [id number] [address] [place] [address] [place] Potassium [Moles/Vol] 3.3 mmol/L Low 3.7-5.1 [facility] Comment on above: Order Comment: Speci men Type: BLOOD SPECIMEN Ordering Facility: [facility] Address: [address] [place] [address] Performed By: #### 2 4321-2 #### [facility] CLIA [id number] [address] [place] [address] [place] Sodium [Moles/Vol] 138 mmol/L Normal 136-144 [facility] Comment on above: Order Comment: Speci men Type: BLOOD SPECIMEN Ordering Facility: [facility] Address: [address] [place] [address] Performed By: #### 2 4321-2 #### [facility] CLIA [id number] [address] [place] [address] [place] Urea nitrogen [Mass/Vol] 28 mg/dL High 7-21 [facility] Comment on above: Order Comment: Speci men Type: BLOOD SPECIMEN Ordering Facility: [facility] Address: [address] [place] [address] Performed By: #### 2 4321-2 #### [facility] CLIA [id number] [address] [place] [address] [place] CBC panel Auto (Bld)on 02-18 Erythrocyte distribution width (RBC) [Ratio] 15.9 % High 11.5-15.0 [facility] Comment on above: Order Comment: Speci men Type: BLOOD SPECIMEN Ordering Facility: [facility] Address: [address] [place] [address] Performed By: #### 5 8410-2 #### [facility] CLIA [id number] [address] [place] [address] [place] Hematocrit (Bld) [Volume fraction] 36.3 % Normal 36.0-46.0 [facility] Comment on above: Order Comment: Speci men Type: BLOOD SPECIMEN Ordering Facility: [facility] Address: [address] [place] [address] Performed By: #### 5 8410-2 #### [facility] CLIA [id number] [address] [place] [address] [place] Hemoglobin (Bld) [Mass/Vol] 12.3 g/dL Normal 11.5-15.5 [facility] Comment on above: Order Comment: Speci men Type: BLOOD SPECIMEN Ordering Facility: [facility] Address: [address] [place] [address] Performed By: #### 5 8410-2 #### [facility] CLIA [id number] [address] [place] [address] [place] MCH (RBC) [Entitic mass] 28.9 pg Normal 26.0-34.0 [facility] Comment on above: Order Comment: Speci men Type: BLOOD SPECIMEN Ordering Facility: [facility] Address: [address] [place] [address] Performed By: #### 5 8410-2 #### [facility] CLIA [id number] [address] [place] [address] [place] MCHC (RBC) [Mass/Vol] 33.9 g/dL Normal 30.5-36.0 [facility] Comment on above: Order Comment: Speci men Type: BLOOD SPECIMEN Ordering Facility: [facility] Address: [address] [place] [address] Performed By: #### 5 8410-2 #### [facility] CLIA [id number] [address] [place] [address] [place] MCV (RBC) [Entitic vol] 85.2 fL Normal 80.0-100.0 [facility] Comment on above: Order Comment: Speci men Type: BLOOD SPECIMEN Ordering Facility: [facility] Address: [address] [place] [address] Performed By: #### 5 8410-2 #### [facility] CLIA [id number] [address] [place] [address] [place] Nucleated RBC (Bld) [#/Vol] 10*3/uL Normal <0.01 [facility] Comment on above: Order Comment: Speci men Type: BLOOD SPECIMEN Ordering Facility: [facility] Address: [address] [place] [address] Performed By: #### 5 8410-2 #### [facility] CLIA [id number] [address] [place] [address] [place] Platelet mean volume (Bld) [Entitic vol] 10.6 fL Normal 9.0-12.7 [facility] Comment on above: Order Comment: Speci men Type: BLOOD SPECIMEN Ordering Facility: [facility] Address: [address] [place] [address] Performed By: #### 5 8410-2 #### [facility] CLIA [id number] [address] [place] [address] [place] Platelets (Bld) [#/Vol] 203 10*3/uL Normal 150-400 [facility] Comment on above: Order Comment: Speci men Type: BLOOD SPECIMEN Ordering Facility: [facility] Address: [address] [place] [address] Performed By: #### 5 8410-2 #### [facility] CLIA [id number] [address] [place] [address] [place] RBC (Bld) [#/Vol] 4.26 10*6/uL Normal 3.90-5.20 [facility] Comment on above: Order Comment: Speci men Type: BLOOD SPECIMEN Ordering Facility: [facility] Address: [address] [place] [address] Performed By: #### 5 8410-2 #### [facility] CLIA [id number] [address] [place] [address] [place] WBC (Bld) [#/Vol] 9.80 10*3/uL Normal 3.70-11.00 [facility] Comment on above: Order Comment: Speci men Type: BLOOD SPECIMEN Ordering Facility: [facility] Address: [address] [place] [address] Performed By: #### 5 8410-2 #### [facility] CLIA [id number] [place] [address] [place] CNDSon 02-18-2023 [facility] HNO ID: [id number] Author: Mahsa Marley MD Service: Cardiovascular Medicine Author Type: Physician Type: Discharge Summary Filed: 02/22/2023 3:59 PM Note Text: [facility] STAFF PHYSICIAN NOTE OF PERSONAL INVOLVEMENT IN CARE IMPRESSION: Patient is a 77 year old female with a PMHx of CAD without previous stenting, HTN, HLD, PVD s/p right axillobifemoral bypass graft on 01/02/20 for severe abdominal aortic stenosis at level of renal arteries, Type 2 DM, ERASMO who was sent in to [facility] for a new finding of diminished LVEF. She was then transferred to for a cath and this lead to stenting of her LAD. PLAN: - DAPT with ASA and Brilinta - Will be started on GDMT as tolerated - Will need Lasix for now - Should follow with her magician helper soon following discharge I have reviewed the documentation obtained and documented by the Nurse Practitioner and I have personally performed the substantive portion of the visit which includes the medical decision making. I have discussed the case and management of the patient's care. (Inpatient): I personally spent 60 total minutes total time in the management and care of this patient. STAFF PHYSICIAN: Mahsa Marley MD DATE OF SERVICE: February 22, 2023 TIME OF SERVICE: 9:10 AM Department of Cardiovascular Medicine Discharge Summary (Template ID [id number]) PATIENT NAME: Arleth Elias ADMISSION DATE: 02/17/2023 DISCHARGE DATE: 02/18/2023 Attending Physician: Mahsa Marley MD Code Status: Prior Primary Service: Admission Diagnosis:HFrEF Discharge Diagnosis: Coronary artery disease Secondary Diagnoses: HFrEF/ischemic cardiomyopathy Patient Active Hospital Problem List: Status post angioplasty with stent (02/17/2023) Hospital Course: 77 year old female with PMH of chronic systolic heart failure with previously recovered LVEF 35->61%, 48% 10/02, non-obstructive CAD s/p C on 06/07/2019 (Dr. Pritchard) and 06/08/2019 (Dr. Kan, under op report, 50-60% stenosis to mid LAD, RCA and Lcx normal, follows with Dr. Pritchard), HTN, HLD, PVD s/p right axillobifemoral bypass graft on 01/02/20 for severe abdominal aortic stenosis at level of renal arteries, Type 2 DM, ERASMO, mild carotid atherosclerosis, NSVT. she went to the ED at [facility] on 02/16 after echocardiogram was completed and LVEF found to be 15%. She was recently admitted to an OSH with shortness of breath and chest pressure. She was transferred to [facility] for coronary angiogram. Cardiac cath yesterday revealed 70% stenosis in the mid LAD, 40% stenosis in the ostial circumflex. LVEDP 13. She underwent PCI with TRACY to the LAD and started on aspirin and brilinta. Post procedure she developed shortness of breath. EKG was completed with no new ischemic findings. She was given a one time dose of lasix. Today she reports she is doing well. Right radial site clean dry and intact. TTE shows LVEF < 35% DAPT with aspirin and plavix (changed from brilinta due to SHORTNESS OF BREATH, loaded with 600 mg), high intensity statin crestor 40, most recent LDL 33 from December 2022. GDMT: BB: coreg 25 mg bid RAMEZ/ARB/ARNI: entresto cost prohibitive start valsartan 40 mg dialy and increase to bid if tolerated MRA: defer and start as outpatient SGLT2: will need to consider cost Diuretic: lasix 20 mg bid Will need repeat labs in 1 week Wearable defibrillator on discharge ordered Consults: None Major Procedure or Operation: None Other Procedures, Testing AND Radiology: None Patient Condition at Discharge: Improved Disposition: Home with Self Care Information Provided to the Patient: Patient given copy of After Visit Summary which included activity instructions, diet instructions, wound care instructions, medication instructions and follow up appointment. ALLERGIES Allergen Reactions Penicillins Anaphylaxis, Hives Iodinated Contrast * Other: See Comments Throat itching to some Xray dye >20-30 years ago Discharge Medications: Medication List START taking these medications clopidogrel 75 mg tablet Commonly known as: PLAVIX Take 1 tablet by mouth once daily. valsartan 40 mg tablet Commonly known as: DIOVAN Take 1 tablet by mouth once daily. CONTINUE taking these medications allopurinol 100 mg tablet Commonly known as: ZYLOPRIM aspirin, enteric coated 81 mg EC tablet Commonly known as: ASPIRIN, ENTERIC COATED BD ULTRA-FINE RUBIA PEN NEEDLE 32 gauge x Generic drug: Insulin [place] (Disposable) BLOOD GLUCOSE TEST test strip Generic drug: blood sugar diagnostic Use as instructed to monitor glucose. One touch ultra verio test strips. carvedilol 25 mg tablet Commonly known as: COREG Take 1 tablet by mouth twice daily. CPAP/BIPAP/OTHER Type .CPAPSettings into a note to see current settings/supplies/DME information. fluticasone 50 mcg/actuation nasal spray Commonly known as: FLONASE FREESTYLE RU 3 SENSOR Mauricio Generic drug: Blood-G (more content not included)... Normal [facility] CONSULT PROGon 02-18-2023 CONSULT PROG HNO ID: [id number] Author: Mylene Hinojosa APRN.CNP Service: Cardiovascular Medicine Author Type: Nurse Practitioner Type: Consult Progress Note Filed: 02/18/2023 10:48 AM Note Text: [facility] CARDIOVASCULAR MEDICINE PROGRESS NOTE (Template ID [id number]) SERVICE DATE: 02/18/2023 SERVICE TIME: 944 PRIMARY SERVICE: HOSPITAL DAY: #1 INTERVAL HISTORY Cardiac cath yesterday revealed 70% stenosis in the mid LAD, 40% stenosis in the ostial circumflex. LVEDP 13. She underwent PCI with TRACY to the LAD and started on aspirin and brilinta. Post procedure she developed shortness of breath. EKG was completed with no new ischemic findings. She was given a one time dose of lasix. Today she reports she is doing well. Right radial site clean dry and intact. PHYSICAL EXAM BP 129/67 Pulse 86 Temp 36.6 ?C (97.9 ?F) (Oral) Resp 16 Ht 167.6 cm (5' 6 ) Wt 83.1 kg (183 lb 3.2 oz) SpO2 93% BMI 29.57 kg/m? No intake or output data in the 24 hours ending 02/18/23 1046 General Appearance: Well developed and Well nourished HEENT: PERRLA Lungs: Decreased breath sounds and Respiratory effort: normal Heart: Regular rate AND rhythm, No heaves, No lifts, No thrills, No rubs, and S1, S2 normal Abdomen: Soft Skin: Warm Musculoskeletal: No deformities Neurologic/Psychiatri c: Oriented to time, place AND person MEDICATIONS Current Facility-Administered Medications Medication Dose Route Frequency carvedilol 25 mg tab(s) (COREG) 25 mg ORAL BID rosuvastatin 40 mg tab(s) (CRESTOR) 40 mg ORAL AT BEDTIME furosemide 20 mg tab(s) (LASIX) 20 mg ORAL BID aspirin 81 mg chewable tab(s) 81 mg ORAL DAILY ticagrelor 90 mg tab(s) (BRILINTA) 90 mg ORAL BID sodium chloride 0.9 % (flush) 2-10 mL (BD POSIFLUSH) 2-10 mL INTRAVENOUS DIRECTED PRN And perflutren lipid microspheres 1.1 mg/mL 1.3 mL injection (DEFINITY) 1.3 mL INTRAVENOUS DIRECTED PRN acetaminophen 650 mg tab(s) (TYLENOL) 650 mg ORAL q 4 H PRN potassium chloride ER 40 mEq tab(s) (KLOR-CON) 40 mEq ORAL q 4 H dextrose 40 % 15 g 15 g ORAL PRN Or glucagon 1 mg injection 1 mg INTRAMUSCULAR PRN Or dextrose 10% iv bolus 12.5 g INTRAVENOUS PRN insulin lispro injection (rapid acting) (ADMElog) SUBCUTANEOUS w MEALS valsartan 40 mg tab(s) (DIOVAN) 40 mg ORAL DAILY [START ON 02/19/2023] insulin glargine 22 Units pen (long acting) 22 Units SUBCUTANEOUS DAILY (8 AM) DATA: Diagnostic tests reviewed for today's visit: Most recent labs and imaging results. Medication and Non-Pharmacologic VTE Prophylaxis/Anticoagu lants Anticoagulant AND Antiplatelet Medications (From admission, onward) Start Dose Route Frequency Last Action Ordered Stop 02/18/23 0430 ticagrelor 90 mg tab(s) (BRILINTA) 90 mg ORAL 2 TIMES DAILY Given, 02/18 0501 02/17/23 1640 -- 02/17/23 1700 aspirin 81 mg chewable tab(s) 81 mg ORAL DAILY Given, 02/19 82802/17/23 1640 -- Cardiac cath CORONARY ANGIOGRAPHY: LEFT MAIN TRUNK: No Stenosis LEFT ANTERIOR DESCENDIN% Stenosis Location: Mid, Calcified DIAGONAL #1: No Stenosis LEFT CIRCUMFLEX: 40% Stenosis Location: Ostial MARGINAL #1: No Stenosis DOMINANT: NO RIGHT CORONARY: No Stenosis DOMINANT: YES POSTERIOR DESCENDING: No Stenosis POSTERIOR LATERAL: No Stenosis HEMODYNAMICS: LVEDP: 13mmHg LV - AORTA: No Gradient PERCUTANEOUS CORONARY INTERVENTION: The catheterization angiogram was reviewed affirming the patient was indicated for PCI. Heparin was given for anticoagulation. A guiding catheter was advanced under fluoroscopy and the vessel was engaged. Using standard protocol, angioplasty was performed and cardiac stent(s) were placed in the following vessel(s). LAD Lesion Type: Class B2 Guiding Catheter(s): XB-LAD 3.5 Pre Dilatation Balloon Size: 2.5 mm X 20 mm compliant, followed by a 3.0 x 20mm Noncompliant with excellent expansion both times. Pre ANTHONY Blood Flow: 3 Mid Stent Placed: Type: Synergy (Drug Eluting Stent) Size: 3.0 mm Length: 24 mm Post Stenting IVUS was performed and showed that the proximal portion of the stent the MSA was 5.0 and this lead to post dilatation Post Dilatation Balloon Size: 3.25 x 12mm Post ANTHONY Blood Flow: 3 Result: Successful. The sheath was removed and hemostatsis was established using a radial band . There was no bleeding at the end of the procedure. The pt was returned to the recovery room in a stable condition. Following the case the patient was still complaining of some arm pain and as such with the wire difficulty we had initially we decided to shoot a picture of the right arm, radial artery and brachial artery that was negative for perforation. ESTIMATED BLOOD LOSS: Less Than Minimal Unless Noted Here. COMPLICATIONS: None SPECIMENS: No specimens obtained unless noted here. CONDITION: Stable RECOMMENDATIONS: Routine right radial access care PCI to the LAD, although I still suspect this is primar (more content not included)... Normal [facility] ECG COMPLETEon 02-18-2023 ECG COMPLETE Ventricular Rate : 9 0 BPM Atrial Rate : 90 BPM P-R Interval : 173 ms QRS Duration : 179 ms Q-T Interval : 459 ms QTC Calculation(Bazett) : 562 ms Calculated P Reva : 41 degrees Calculated R Reva : -71 degrees Calculated T Reva : 68 degrees Sinus rhythm Left bundle branch block Poor R wave Progression, late transition Abnormal ECG Confirmed by DAYTON CARSON MD ([id number]) on 03/05/2023 4:42:35 PM NAME : ARLETH ELIAS PID : [id number] : 1945 Gender : Female Race : ORD : [id number] Procedure Date : Feb 18 2023 08:06:17 Edit Date : Mar 05 2023 16:42:36 Diagnosis: Sinus rhythm Left bundle branch block Poor R wave Progression, late transition Abnormal ECG Confirmed by DAYTON CARSON MD ([id number]) on 03/05/2023 4:42:35 PM Test Reason : Chest Pain Location : 400 : FVEKG 3P31 Overread By : DAYTON CARSON MD Edited By : DAYTON CARSON MD Referred By : , Acquired by : [id number], Normal [facility] ECHO LIMITEDon 02-18-2023 ECHO LIMITED Echocardiography Report: [facility] Date of service: 02/18/2023 1:52:44 PM Ordering physician: MAHSA MARLEY Indication: Limited LV function/EF Technologist: Toña Cantu and Nichelle Martinez Interpreting physician: Saw Cameron MD PATIENT: Name: MISS ARLETH ELIAS : 1945 Age: 77 years Gender: F History of hypertension and coronary artery disease. Primary rhythm: sinus. Height: 167.60 cm BSA: 1.97 m Weight: 83.10 kg BMI: 29.6 kg/m Heart rate 100 bpm Blood pressure 119/67 mmHg Technically difficult exam due to body habitus. Color Doppler was utilized to interrogate the cardiac valves assessed and spectral Doppler was utilized to determine the flow velocities and pressure gradients reported in this exam. MEASUREMENTS: Value Indexed Normal Left atrial volume 81 ml (4ch A-L) 41 ml/m Rossy <= 34 LV ID (diastole) 5.8 cm (2D) 2.93 cm/m LV ID (systole) 4.5 cm (2D) 2.28 cm/m IVS, leaflet tips 1.2 cm (2D) Posterior wall thickness 1.2 cm (2D) Left ventricular mass 290 g (2D) 147 g/m LV stroke volume 38 ml (2D 4-ch.) LV end diastolic volume 124 ml (2D 4-ch.) 62.9 ml/m 29<=EDVi<62 LV end systolic volume 86 ml (2D 4-ch.) 43.6 ml/m Ejection Fraction 31 % (2D 4-ch.) EF > 54 FINDINGS: LEFT VENTRICLE The left ventricle is mildly dilated. There is mild left ventricular hypertrophy. Left ventricular systolic function is moderately decreased. Left ventricular diastolic function was not evaluated due to inconsistent or technically suboptimal data. There is a single false tendon at the apex. Wall Motion: The mid inferoseptal segment and basal inferoseptal segment are dyskinetic. The mid inferolateral segment, apical septal segment, apical anterior segment, apical inferior segment, and apex are akinetic. The mid anteroseptal segment, apical lateral segment, mid anterolateral segment, and mid anterior segment are severely hypokinetic. All remaining scored segments are normal. RIGHT VENTRICLE The right ventricle is normal in size. Right ventricular systolic function is normal. LEFT ATRIUM The left atrial cavity is mildly dilated. RIGHT ATRIUM The right atrial cavity is normal in size. MITRAL VALVE There is moderate (2+ - 3+) mitral valve regurgitation due to restricted leaflet motion and apical tethering of normal mitral leaflet caused by LV enlargement. There is mild thickening. TRICUSPID VALVE There is trace (trace - 1+) tricuspid valve regurgitation. There is no thickening. AORTIC VALVE The aortic valve was not seen or not interrogated. PULMONARY ARTERIES The pulmonary arteries are unseen or not interrogated. PERICARDIUM There is no pericardial effusion. CONCLUSIONS: - Technically difficult exam due to body habitus. - Exam indication: Limited LV function/EF - The left ventricle is mildly dilated. There is mild left ventricular hypertrophy. Left ventricular systolic function is moderately decreased. EF = 31 5% (2D 4-ch.) - Predominately mid-distal LAD wall motion abnormalities + LBBB dyssynchrony. - inferior wall motion appears preserved in SAX views. - The right ventricle is normal in size. Right ventricular systolic function is normal. - The left atrial cavity is mildly dilated. - There is moderate (2+ - 3+) mitral valve regurgitation due to restricted leaflet motion and apical tethering of normal mitral leaflet caused by LV enlargement. - AV, PV not assessed. - Exam was compared with the prior echocardiographic exam performed on 09/10/2022 report comparison only: prior LVEF reported as 48%. and now some MR. * * * Final * * * [facility] Image : [id number] [id number] Normal [facility] NURSING PROGon 02-18-2023 NURSING PROG HNO ID: [id number] Author: Tere Green RN Service: Nursing Author Type: Registered Nurse Type: Nursing Progress Note Filed: 02/18/2023 6:51 PM Note Text: ~9500-2579 Pt AANDO, VSS, denies pain, cp, c/o sob when ambulating, lungs diminished throughout with bibasilar crackles auscultated, SO2 95% RA, no edema in BLE. Right radial dressing CDI, no bleeding or hematoma, vascular checks WNL. Pt received morning medications, K+ 3.3 this AM, order received for K-DUR replacement 40 meq x 2, pt is diabetic, states that she take Levemir HS, no current order for home insulin or SS insulin, OVIA message sent to Dr. Marley to notify, as well as cardiology pager at [phone] as follows: Pt in CPPU 318, P. Ransom, pt is diabetic, no insulin ordered, pt takes Levemir 28 units and in need of SS order as well. Thank you. Tere [id number] Pt resting, call light in reach, pt remains SR, will continue to monitor. JING BURCIAGA in to see pt, orders received for insulin, pt requested dose this AM. ~1025 Received Lantus, substitution for Levemir, contacted pharmacy to clarify dosing equivalent, 28 units orders, should be 80% on Levemir dose or 22 units, per pharmacy. Pharmacy to notify prescriber for dose change, pt received 22 units of Lantus and SS insulin as ordered. Pt resting, c/o mild sob, SO2 95%, pt declined O2 for comfort at this time, no additional needs will continue to monitor. ~1220 Pt awaiting tray. Report given to covering RN, JACOB. ~5501-6047 Pt resting, denies pain, mild sob, SO2 99% RA, target aircraft technician arrived at bedside, pt currently ST on the monitor, HR 102. ~0010-6002 Echo complete, pt seen by Chetan lund. Pt denies pain, still having intermittent sob lasting 3 breaths then subsides, per pt. Pt new to Brilinta. ~8972-7801 Pt resting, seen by JING BURCIAGA who discussed with pt that EF from echo completed today was less than 35%. Pt denies pain, pt received filled prescriptions for Plavix (switched from Brilinta, pt instructed to take 8 tablets tomorrow and then start 1 tablet daily, per DC instructions) and Jane, reviewed DC instructions with pt and spouse with good understanding, pt awaiting fitting of life vest, phone number for rep Chetan obtained from by calling 10sec, message left for Chetan letting him know pt is ready for DC and awaiting life vest fitting, EF was less than 35%, per PHARM TECH, SD, awaiting return call. Pt remains SR, no additional needs, will continue to monitor. ~7883-1712 Received return call from rep, Chetan, will try and have life vest fitted tonight (the latest for the pt and family would be 9pm), but may not happen until the AM, pt and spouse updated on plan, pt has important appointment tomorrow and needs to leave in early AM, Chetan called and updated, he will not speak with person that will be fitting the patient and will notify nursing if 7am time is good, pt has a [address] Awaiting return call and update. Report to be given to next shift RN. [facility] NURSING PROG HNO ID: [id number] Author: Sesar Espinoza, MYA Service: Nursing Author Type: Registered Nurse Type: Nursing Progress Note Filed: 02/18/2023 5:51 AM Note Text: Pt alert and oriented, up ambulating independently without issue, no c/o of discomfort or SOB, pt having mild anxiety new order from house obtained for melatonin 9 mg, pt cont to c/o feeling anxious house doing rounds in to talk to patient and new order for ativan 0.5 mg ordered and given and was effective, pt states she feels better and was able to get some rest, vss, right radial pulse present with 2x2 and teg in place CDI, reported to oncoming shift [facility] PT EDon 02-18-2023 PT ED HNO ID: [id number] Author: Aure Harrison, MYA Service: Cardiac Rehab Author Type: Registered Nurse Type: Patient Education Filed: 02/18/2023 11:01 AM Note Text: CARDIAC REHABILITATION PATIENT EDUCATION PROGRESS NOTE Name: Arleth Elias Date of Service: 02/18/2023 Time of Service: 1000 ASSESSMENT: Risk Factors Identified: Diabetic: Insulin Dependent Hyperlipidemia Hypertension Significant Medical History: CHF RECOMMENDATIONS: Patient interested in Phase II Outpatient Cardiac Rehab: Yes. Facility Preferred: closer to home DIAGNOSIS: Percutaneous Cardiac Intervention: TRACY PCI Teaching Points: -Basic Anatomy and Disease Process -Personal Modifiable Risk Factor Identification -Activity/Physical Exercise Recommendations -Prescribed Medication Reviewed -When patient should call provider -Outpatient Cardiac Rehabilitation READINESS TO LEARN: Cognitive Ability: Alert and Oriented Motivation to Learn: Interested Family Support: None - Unavailable/disintere sted Instruction Provided To: Patient Patient Learns Best By: Individual Instruction, Written Instruction - Hand-outs, and Verbal Instruction Factors Affecting Learning: None Physical Limitations Affecting Learning: None LEARNING RESPONSE: Method Of Instruction: Individual instruction Patient/Family Response: Verbalizes understanding of: all recommendations Follow-up Plan: No further educational needs identified at this time. Instructional Aids Used: Anatomical Model/Drawing Cardiac Rehabilitation Brochure Educational Binder [facility] Cardiac Rehab Programs Outpatient Diet/Nutrition Class Invitation Signature: Aure harrison RN Pager: [email or web address] Date: February 18, 2023 Time: 11:00 AM Normal [facility] CBC W Auto Differential pane l (Bld)on 02-17-2023 Basophils (Bld) [#/Vol] 0.08 10*3/uL Normal <0.11 [facility] Comment on above: Order Comment: Speci men Type: BLOOD SPECIMENOrdering Facility: [facility] Address: [address] [place] [address] Performed By: #### 5 7021-8 ####[facility] LABORATORYCLIA [id number] [place] [id number] [place] Basophils/100 WBC (Bld) 1.0 % Normal [facility] Comment on above: Order Comment: Speci men Type: BLOOD SPECIMENOrdering Facility: [facility] Address: [address] [place] [address] Performed By: #### 5 7021-8 ####[facility]ORATORYCLIA [id number] [place] [address] [place] Differential cell count method Nom (Bld) Auto Normal [facility] Comment on above: Order Comment: Speci men Type: BLOOD SPECIMENOrdering Facility: [facility] Address: [address] [place] [address] Performed By: #### 5 7021-8 ####[facility]ORATORYCLIA [id number] [facility] [place] [address] [place] Eosinophils (Bld) [#/Vol] 0.18 10*3/uL Normal <0.46 [facility] Comment on above: Order Comment: Speci men Type: BLOOD SPECIMENOrdering Facility: [facility] Address: [address] [place] [address] Performed By: #### 5 7021-8 ####[facility]ORATORYCLIA [id number] [facility] [place] [address] [place] Eosinophils/100 WBC (Bld) 2.3 % Normal [facility] Comment on above: Order Comment: Speci men Type: BLOOD SPECIMENOrdering Facility: [facility] Address: [address] [place] [address] Performed By: #### 5 7021-8 ####[facility] LABORATORYIA [id number] [address] [place] Erythrocyte distribution width (RBC) [Ratio] 16.4 % High 11.5-15.0 [facility] Comment on above: Order Comment: Speci men Type: BLOOD SPECIMENOrdering Facility: [facility] Address: [address] [place] [address] Performed By: #### 5 7021-8 ####[facility] LABORATORYIA [id number] [address] [place] Hematocrit (Bld) [Volume fraction] 36.7 % Normal 36.0-46.0 [facility] Comment on above: Order Comment: Speci men Type: BLOOD SPECIMENOrdering Facility: [facility] Address: [address] [place] [address] Performed By: #### 5 7021-8 ####[facility] LABORATORYIA [id number] [place] [id number] [place] Hemoglobin (Bld) [Mass/Vol] 11.9 g/dL Normal 11.5-15.5 [facility] Comment on above: Order Comment: Speci men Type: BLOOD SPECIMENOrdering Facility: [facility] Address: [address] [place] [address] Performed By: #### 5 7021-8 ####[facility]ORATORYCLIA [id number] [place] [address] [place] Immature granulocytes (Bld) [#/Vol] 10*3/uL Normal <0.10 [facility] Comment on above: Order Comment: Speci men Type: BLOOD SPECIMENOrdering Facility: [facility] Address: [address] [place] [address] Performed By: #### 5 7021-8 ####[facility] LABORATORYIA [id number] [place] [address] [place] Immature granulocytes/100 WBC (Bld) 0.1 % Normal [facility] Comment on above: Order Comment: Speci men Type: BLOOD SPECIMENOrdering Facility: [facility] Address: [address] [place] [address] Performed By: #### 5 7021-8 ####[facility] HOSPITALIA [id number] [place] [id number] [place] Lymphocytes (Bld) [#/Vol] 2.99 10*3/uL Normal 1.00-4.00 [facility] Comment on above: Order Comment: Speci men Type: BLOOD SPECIMENOrdering Facility: [facility] Address: [address] [place] [address] Performed By: #### 5 7021-8 ####[facility] LABORATORYIA [id number] [place] [id number] [place] Lymphocytes/100 WBC (Bld) 37.8 % Normal [facility] Comment on above: Order Comment: Speci men Type: BLOOD SPECIMENOrdering Facility: [facility] Address: [address] [place] [address] Performed By: #### 5 7021-8 ####[facility] LABORATORYIA [id number] [place] [address] [place] MCH (RBC) [Entitic mass] 29.0 pg Normal 26.0-34.0 [facility] Comment on above: Order Comment: Speci men Type: BLOOD SPECIMENOrdering Facility: [facility] Address: [address] [place] [address] Performed By: #### 5 7021-8 ####[facility] HOSPITALIA [id number] [place] [id number] [place] MCHC (RBC) [Mass/Vol] 32.4 g/dL Normal 30.5-36.0 [facility] Comment on above: Order Comment: Speci men Type: BLOOD SPECIMENOrdering Facility: [facility] Address: [address] [place] [address] Performed By: #### 5 7021-8 ####[facility]PITALIA [id number] [address] [place] MCV (RBC) [Entitic vol] 89.3 fL Normal 80.0-100.0 [facility] Comment on above: Order Comment: Speci men Type: BLOOD SPECIMENOrdering Facility: [facility] Address: [address] [place] [address] Performed By: #### 5 7021-8 ####[facility] [id number] [place] [address] [place] Monocytes (Bld) [#/Vol] 0.79 10*3/uL Normal <0.87 [facility] Comment on above: Order Comment: Speci men Type: BLOOD SPECIMENOrdering Facility: [facility] Address: [address] [place] [address] Performed By: #### 5 7021-8 ####[facility]PITALIA [id number] [address] [place] Monocytes/100 WBC (Bld) 10.0 % Normal [facility] Comment on above: Order Comment: Speci men Type: BLOOD SPECIMENOrdering Facility: [facility] Address: [address] [place] [address] Performed By: #### 5 7021-8 ####[facility]ORATORYIA [id number] [place] [id number] [place] Neutrophils (Bld) [#/Vol] 3.85 10*3/uL Normal 1.45-7.50 [facility] Comment on above: Order Comment: Speci men Type: BLOOD SPECIMENOrdering Facility: [facility] Address: [address] [place] [address] Performed By: #### 5 7021-8 ####[facility]ORATORYCLIA [id number] [place] [address] [place] Neutrophils/100 WBC (Bld) 48.8 % Normal [facility] Comment on above: Order Comment: Speci men Type: BLOOD SPECIMENOrdering Facility: [facility] Address: [address] [place] [address] Performed By: #### 5 7021-8 ####[facility]PITALIA [id number] [place] [address] [place] Nucleated RBC (Bld) [#/Vol] 10*3/uL Normal <0.01 [facility] Comment on above: Order Comment: Speci men Type: BLOOD SPECIMENOrdering Facility: [facility] Address: [address] [place] [address] Performed By: #### 5 7021-8 ####[facility]ORATORYIA [id number] [place] [address] [place] Nucleated RBC/100 WBC (Bld) [Ratio] 0.0 /100 WBC Normal [facility] Comment on above: Order Comment: Speci men Type: BLOOD SPECIMENOrdering Facility: [facility] Address: [address] [place] [address] Performed By: #### 5 7021-8 ####[facility] LABORATORYIA [id number] [place] [address] [place] Platelet mean volume (Bld) [Entitic vol] 10.5 fL Normal 9.0-12.7 [facility] Comment on above: Order Comment: Speci men Type: BLOOD SPECIMENOrdering Facility: [facility] Address: [address] [place] [address] Performed By: #### 5 7021-8 ####[facility] LABORATORYIA [id number] [facility] [place] [address] [place] [facility] [place] Platelets (Bld) [#/Vol] 185 10*3/uL Normal 150-400 [facility] Comment on above: Order Comment: Speci men Type: BLOOD SPECIMENOrdering Facility: [facility] Address: [address] [place] [address] Performed By: #### 5 7021-8 ####[facility]ORATORYCLIA [id number] [place] [address] [place] RBC (Bld) [#/Vol] 4.11 10*6/uL Normal 3.90-5.20 [facility] Comment on above: Order Comment: Speci men Type: BLOOD SPECIMENOrdering Facility: [facility] Address: [address] [place] [address] Performed By: #### 5 7021-8 ####[facility] LABORATORYIA [id number] [place] [address] [facility] OF [place] WBC (Bld) [#/Vol] 7.90 10*3/uL Normal 3.70-11.00 [facility] Comment on above: Order Comment: Speci men Type: BLOOD SPECIMENOrdering Facility: [facility] Address: [address] [place] [address] Performed By: #### 5 7021-8 ####[facility] LABORATORYIA [id number] [place] [address] [facility] CNDSon 02-17-2023 CNDS HNO ID: [id number] Author: Paras Ramirez MD Service: Critical Care Author Type: Physician Type: Discharge Summary Filed: 02/19/2023 8:20 AM Note Text: Discharge Summary PATIENT NAME: Arleth Elias ADMISSION DATE: 02/16/2023 DISCHARGE DATE: 02/17/2023 Attending Physician: Paras Ramirez MD PhD Reason for Hospitalization: Principal Problem: HFrEF (heart failure with reduced ejection fraction) (HCC) Active Problems: Essential hypertension Mixed hyperlipidemia Nonsustained ventricular tachycardia (HCC) Diabetes mellitus (HCC) 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 * Operations During Hospitalization: None Procedures During Hospitalization: No procedures performed Hospital Course 77 year old female PMH of HFimpEF (previously ana maria EF 35 --> 61%, 48% in 09/2022) non-obstructive CAD s/p LHC (known 50-60% stenosis to mid LAD 06/08/2019 previously IFR 0.9), HTN, HLD, PVD s/p right axillobifemoral bypass graft on 01/02/20 for severe abdominal aortic stenosis at level of renal arteries, Type 2 DM, ERASMO, mild carotid atherosclerosis, recently admitted to OSH 02/13-02/15/23 for chest pressure with preliminarily negative workup , who presented to the ED on 02/16/2023 after being notified by OSH that her Echo had been read and showed new decrease in EF of ~15%. She was admitted to SDU pending transfer to [facility] for ischemic workup, initially planned as a MARISSA. While in SDU she remained HDS, afebrile, without active chest pain. She was transferred in stable condition to [facility] on 02/17/2023. Labs and Procedures Pending at Discharge: No pending results. Consulting Teams During Hospitalization: Cardiology Patient Condition at Discharge: Stable Discharge Disposition: Acute Care Hospital Physical Exam BP 126/72 Pulse 88 Temp (Src) 97.6 (Oral) Resp 21 Ht 5' 6 (1.68m) Wt 183 lb 1.6 oz (83.1kg) SpO2 93% BMI 29.57 kg/(m2). General: 77 year old -year old female appearing stated age in NAD, speaking in full coherent sentences, nondiaphoretic, cooperative with appropriate affect HEENT: anicteric sclera, PEERL, MMM Cardiac: RRR, normal S1 and S2, no murmurs, rubs, gallops. No JVD Lungs: CTAB, without use of accessory muscles, no wheeze, rales, rhonchi Abdomen: abdomen soft, nontender, normoactive bowel sounds present x4 Extremities: No pedal edema, no calf tenderness, palpable posterior tibial and dorsalis pedis pulses Neurologic: AOx3, speech fluent without dysarthria, moves all extremities spontaneously antigravity, no focal neurologic deficit Skin: No jaundice, no palmar erythema, no spider angiomas. Warm, well-perfused. No rashes or lesions. Psychiatric: no abnormalities with mood with congruent affect Discharge Medications Medication List CONTINUE taking these medications allopurinol 100 mg tablet Commonly known as: ZYLOPRIM aspirin, enteric coated 81 mg EC tablet Commonly known as: ASPIRIN, ENTERIC COATED BD ULTRA-FINE RUBIA PEN NEEDLE 32 gauge x Generic drug: Insulin [place] (Disposable) BLOOD GLUCOSE TEST test strip Generic drug: blood sugar diagnostic Use as instructed to monitor glucose. One touch ultra verio test strips. carvedilol 25 mg tablet Commonly known as: COREG Take 1 tablet by mouth twice daily. CPAP/BIPAP/OTHER Type .CPAPSettings into a note to see current settings/supplies/DME information. fluticasone 50 mcg/actuation nasal spray Commonly known as: FLONASE FREESTYLE RU 3 SENSOR Mauricio Generic drug: Blood-Glucose Sensor Use new sensor every 14 days to monitor blood glucose. furosemide 20 mg tablet Commonly known as: LASIX Take 1 tablet by mouth twice daily. insulin detemir U-100 100 unit/mL (3 mL) injection pen Commonly known as: LEVEMIR Inject 28 Units subcutaneously daily at bedtime. Lancets lancets Use as instructed magnesium oxide 400 mg (241.3 mg magnesium) tablet Commonly known as: MAG-OX TAKE 1 TABLET BY MOUTH TWICE DAILY. TAKE SEPERATELY FROM DOXYCYCLINE rosuvastatin 40 mg tablet Commonly known as: CRESTOR Take 1 tablet by mouth daily at bedtime. semaglutide 1 mg/dose (4 mg/3 mL) pen Commonly known as: OZEMPIC Inject 1 mg subcutaneously once weekly Transition of Care Transferred to [facility] for [facility] Future Appointments Future Appointments Date Time Provider Department Center 02/24/2023 2:00 PM Dwight Ross, DOG LICENSE OFFICER SUPERVISOR.[facility]O [facility]iya 06/02/2023 10:20 AM Mikel Barahona APRN.GUALBERTO [facility] Aniya 06/17/2023 11:30 AM Chalo Pritchard DO [facility] Aniya Patient instructed to call during normal business hours for pending follow up appointment(s) Patient instructed to follow up within 2 weeks w/ PCP Aure Little, GUALBERTO, PHARM TECH for medication updates. (more content not included)... [facility] CONSULTon 02-17-2023 CONSULT HNO ID: [id number] Author: Chalo Pritchard DO Service: Cardiovascular Medicine Author Type: Physician Type: Consults Filed: 02/17/2023 5:08 PM Note Text: [facility] CARDI[facility]ASCULAR MEDICINE CONSULT NOTE Arleth Elias [id number] CONSULTING SERVICE: Cardiovascular Medicine DATE OF ADMISSION: 02/16/2023 DATE OF CONSULT: 02/17/2023 REASON FOR CONSULT CHF Sent by doctor's office for newly found EF of 15%. Discharged from [facility] 02/15/2023. HISTORY OF PRESENT ILLNESS Arleth Elias is a 77 year old female with a past medical history of chronic systolic heart failure with previously recovered EF 35 --> 61%, 48% in 09/2022, and reportedly ED 15% yesterday from OSH echo, non-obstructive CAD s/p LHC on 06/07/2019 (Dr. Pritchard) and 06/08/2019 (Dr. Kan, under op report, 50-60% stenosis to mid LAD, RCA and Lcx normal, follows with Dr. Pritchard), HTN, HLD, PVD s/p right axillobifemoral bypass graft on 01/02/20 for severe abdominal aortic stenosis at level of renal arteries, Type 2 DM, ERASMO, mild carotid atherosclerosis, NSVT, and overweight. 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 Patient was admitted to [facility] last week for chest pressure and shortness of breath that had been present for several weeks. She denies any palpitations, lightheadedness, dizziness, or syncope. She denies recent edema or abdominal swelling. Unsure if she has had orthopnea because she sleeps in an adjustable bed and never lays flat. ED Course: - Afebrile, HR 79-99 BPM, RR 13-26/min, BP 105/68-142/88, currently 116/74. Labs: - CBC: WBC 11.6 (likely due to recent steroids) - CMP: Ca 8.4, Bili 1.6, Gluc 144, BUN28, K 3.7 - HS troponin: 16 --> 16 -->17 - Ma.5 - BNP: 2090 (no BNP for comparison) Imaging: - CXR: IMPRESSION: Findings suggestive of hydrostatic pulmonary edema/CHF. Treated with Lasix 20 mg. This morning, she is feeling better. She denies chest pain. Her exertional SOB has improved. No new symptoms. Planning for transfer to [place] for heart cath this afternoon. REVIEW OF SYSTEMS GENERAL: No weakness, malaise, fevers, chills RESPIRATORY: Negative for cough, wheezing, chest pain with respiration, sputum production GI: No nausea, vomiting, diarrhea, constipation, abdominal pain, hematochezia, black tarry stools. Appetite is good NEURO: No paralysis, weakness, dizziness, loss of consciousness 14 point ROS reviewed and negative other than HPI. PAST MEDICAL HISTORY PAST MEDICAL HISTORY Diagnosis Date Cardiomyopathy (HCC) Claudication (HCC) DM (diabetes mellitus) (HCC) HTN (hypertension) Incontinence NSVT (nonsustained ventricular tachycardia) (HCC) Sciatica Systolic CHF (HCC) PAST SURGICAL HISTORY Procedure Laterality Date CHOLECYSTECTOMY REMV CATARACT EXTRACAP,INSERT LENS Bilateral TOTAL ABDOMINAL HYSTERECT W/WO RMVL TUBE OVARY FAMILY HISTORY FAMILY HISTORY Problem Relation Age of Onset other (cabg) Mother other (pacemaker) Mother Diabetes Father Lung Cancer Father COPD Brother SOCIAL HISTORY Social History Tobacco Use Smoking status: Former Smokeless tobacco: Never Tobacco comments: Social for approx 1 year around age 36 Substance Use Topics Alcohol use: Not Currently Drug use: Never HOME MEDICATIONS insulin detemir U-100 (LEVEMIR) 100 unit/mL (3 mL) injection penInject 28 Units subcutaneously daily at bedtime.Disp: Rfl: semaglutide (OZEMPIC) 1 mg/dose (4 mg/3 mL) penInject 1 mg subcutaneously once weeklyDisp: 1 EachRfl: 11 magnesium oxide (MAG-OX) 400 mg (241.3 mg magnesium) tabletTAKE 1 TABLET BY MOUTH TWICE DAILY. TAKE SEPERATELY FROM DOXYCYCLINEDisp: 180 tabletRfl: 3 aspirin, enteric coated (ASPIRIN, ENTERIC COATED) 81 mg EC tabletTake 81 mg by mouth once daily.Disp: Rfl: rosuvastatin (CRESTOR) 40 mg tabletTake 1 tablet by mouth daily at bedtime.Disp: 90 tabletRfl: 3 carvedilol (COREG) 25 mg tabletTake 1 tablet by mouth twice daily.Disp: 180 tabletRfl: 3 furosemide (LASIX) 20 mg tabletTake 1 tablet by mouth twice daily.Disp: 60 tabletRfl: 2 allopurinol (ZYLOPRIM) 100 mg tabletallopurinol 100 mg tabletDisp: Rfl: blood sugar diagnostic (BLOOD GLUCOSE TEST) test stripUse as instructed to monitor glucose. One touch ultra verio test strips.Disp: 300 EachRfl: 3 Lancets lancetsUse as instructedDisp: 300 EachRfl: 3 Blood-Glucose Sensor (FREESTYLE RU 3 SENSOR) deviUse new sensor every 14 days to monitor blood glucose.Disp: 6 EachRfl: 3 CPAP/BIPAP/OTHERType .CPAPSettings into a note to see current settings/supplies/DME information.Disp: 1 EachRfl: 0 Insulin [place], Disposable, (BD ULTRA-FINE RUBIA PEN NEEDLE) 32 gauge x 5/32 ndleBD Ultra-Fine Rubia Pen Needle 32 gauge x 5/32 Disp: Rfl: fluticasone (FLONASE) 50 mcg/actua (more content not included)... Normal [facility] Comprehensive metabolic 2000 panelon 02-17-2023 Albumin [Mass/Vol] 3.7 g/dL Low 3.9-4.9 [facility] Comment on above: Order Comment: Speci men Type: BLOOD SPECIMENOrdering Facility: [facility] Address: [address] [id number] Performed By: #### 2 4323-8, ####[facility]ORATORYCLIA [id number] [facility] [place] [address] [place] ALP [Catalytic activity/Vol] 88 U/L Normal 34-123 [facility] Comment on above: Order Comment: Speci men Type: BLOOD SPECIMENOrdering Facility: [facility] Address: [address] [place] [address] Performed By: #### 2 432-, ####[facility]ORATORYCLIA [id number] [place] [address] [place] ALT [Catalytic activity/Vol] 10 U/L Normal 7-38 [facility] Comment on above: Order Comment: Speci men Type: BLOOD SPECIMENOrdering Facility: [facility] Address: [address] [place] [address] Performed By: #### 2 4323-8, ####[facility]ORATORYCLIA [id number] [place] [address] [place] Anion gap [Moles/Vol] 11 mmol/L Normal 9-18 [facility] Comment on above: Order Comment: Speci men Type: BLOOD SPECIMENOrdering Facility: [facility] Address: [address] [place] [address] Performed By: #### 2 4328, ####[facility]ORATORYCLIA [id number] [place] [address] [place] AST [Catalytic activity/Vol] 16 U/L Normal 13-35 [facility] Comment on above: Order Comment: Speci men Type: BLOOD SPECIMENOrdering Facility: [facility] Address: [address] [place] [address] Performed By: #### 2 43206-17, ####[facility]ORATORYCLIA [id number] [place] [address] [place] Bilirubin [Mass/Vol] 1.2 mg/dL Normal 0.2-1.3 [facility] Comment on above: Order Comment: Speci men Type: BLOOD SPECIMENOrdering Facility: [facility] Address: [address] [place] [address] Performed By: #### 2 43206-17, ####[facility]ORATORYCLIA [id number] [place] [address] [place] Calcium [Mass/Vol] 8.4 mg/dL Low 8.5-10.2 [facility] Comment on above: Order Comment: Speci men Type: BLOOD SPECIMENOrdering Facility: [facility] Address: [address] [place] [address] Performed By: #### 2 4323-8, ####[facility]ORATORYCLIA [id number] [place] [address] [place] Chloride [Moles/Vol] 101 mmol/L Normal 97-105 [facility] Comment on above: Order Comment: Speci men Type: BLOOD SPECIMENOrdering Facility: [facility] Address: [address] [place] [address] Performed By: #### 2 4323-8, ####[facility]ORATORYCLIA [id number] [place] [address] [place] CO2 [Moles/Vol] 29 mmol/L Normal 22-30 [facility] Comment on above: Order Comment: Speci men Type: BLOOD SPECIMENOrdering Facility: [facility] Address: [address] [place] [address] Performed By: #### 2 4323-8, ####[facility] LABORATORYIA [id number] [place] [address] [place] Creatinine [Mass/Vol] 0.92 mg/dL Normal 0.58-0.96 [facility] Comment on above: Order Comment: Speci men Type: BLOOD SPECIMENOrdering Facility: [facility] Address: [address] [place] [address] Performed By: #### 2 4323-8, ####[facility] LABORATORYIA [id number] [place] [address] [facility] Creatinine and Glomerular filtration rate.predicted panel (S/P/Bld) 65 mL/min/1.73m??? Normal >=60 [facility] Comment on above: Order Comment: Speci men Type: BLOOD SPECIMENOrdering Facility: [facility] Address: [address] [place] [address] Result Comment: Tanisha mated Glomerular Filtration Rate (eGFR) is calculated using the 2020 CKD-EPI creatinine equation. This equation utilizes serum creatinine, sex, and age as parameters. The creatinine assay has traceable calibration to isotope dilution-mass spectrometry. Refer to KDIGO guidelines for clinical interpretation. In patients with unstable renal function, e.g. those with acute kidney injury, the eGFR may not accurately reflect actual GFR. Performed By: #### 2 4323-8, ####[facility]OSPITALIA [id number] [place] [address] [place] Glucose [Mass/Vol] 113 mg/dL High 74-99 [facility] Comment on above: Order Comment: Speci men Type: BLOOD SPECIMENOrdering Facility: [facility] Address: [address] [place] [address] Result Comment: The [place] Diabetes Association (ADA) provides guidance for cutoff values for fasting glucose and random glucose. The ADA defines fasting as no caloric intake for at least 8 hours. Fasting plasma glucose results between 100 to 125 mg/dL indicate increased risk for diabetes (prediabetes). Fasting plasma glucose results greater than or equal to 126 mg/dL meet the criteria for diagnosis of diabetes. In the absence of unequivocal hyperglycemia, results should be confirmed by repeat testing. In a patient with classic symptoms of hyperglycemia or hyperglycemic crisis, random plasma glucose results greater than or equal to 200 mg/dL meet the criteria for diagnosis of diabetes. Reference: Standards of Medical Care in Diabetes 2016, [place] [employer] Association. Diabetes Care. 2016.39(Suppl 1). Performed By: #### 2 4323-8, ####[facility] HOSPITALIA [id number] [place] [address] [place] Potassium [Moles/Vol] 3.9 mmol/L Normal 3.7-5.1 [facility] Comment on above: Order Comment: Speci men Type: BLOOD SPECIMENOrdering Facility: [facility] Address: [address] [place] [address] Performed By: #### 2 432-8, ####[facility] HOSPITALIA [id number] [place] [address] [place] Protein [Mass/Vol] 6.2 g/dL Low 6.3-8.0 [facility] Comment on above: Order Comment: Speci men Type: BLOOD SPECIMENOrdering Facility: [facility] Address: [address] [place] [address] Performed By: #### 2 43206-17, ####[facility] LABORATORYIA [id number] [facility] [place] [address] [place] Sodium [Moles/Vol] 141 mmol/L Normal 136-144 [facility] Comment on above: Order Comment: Speci men Type: BLOOD SPECIMENOrdering Facility: [facility] Address: [address] [place] [address] Performed By: #### 2 4323-8, ####[facility] LABORATORYIA [id number] [place] [address] [place] Urea nitrogen [Mass/Vol] 25 mg/dL High 7-21 [facility] Comment on above: Order Comment: Speci men Type: BLOOD SPECIMENOrdering Facility: [facility] Address: [address] [id number] Performed By: #### 2 4323-8, 10491-5 ####[facility] LABORATORYIA [id number] [place] [address] [place] [facility] ECG COMPLETEon 02-17-2023 ECG COMPLETE Ventricular Rate : 8 9 BPM Atrial Rate : 89 BPM P-R Interval : 175 ms QRS Duration : 173 ms Q-T Interval : 469 ms QTC Calculation(Bazett) : 571 ms Calculated P Reva : 45 degrees Calculated R Reva : -65 degrees Calculated T Reva : 82 degrees Sinus rhythm Left bundle branch block Abnormal ECG Confirmed by DAYTON CARSON MD ([id number]) on 03/05/2023 1:39:12 PM NAME : ARLETH ELIAS PID : [id number] : 1945 Gender : Female Race : ORD : [id number] Procedure Date : Feb 17 2023 19:12:10 Edit Date : Mar 05 2023 13:39:14 Diagnosis: Sinus rhythm Left bundle branch block Abnormal ECG Confirmed by DAYTON CARSON MD ([id number]) on 03/05/2023 1:39:12 PM Test Reason : Chest Pain Location : 400 : FVEKG 3P31 Overread By : DAYTON CARSON MD Edited By : DAYTON CARSON MD Referred By : , Acquired by : GABY CORONA [facility] ECG COMPLETE Ventricular Rate : 8 3 BPM Atrial Rate : 83 BPM P-R Interval : 176 ms QRS Duration : 174 ms Q-T Interval : 472 ms QTC Calculation(Bazett) : 555 ms Calculated P Reva : 46 degrees Calculated R Reva : -69 degrees Calculated T Reva : 77 degrees Sinus rhythm Probable left atrial enlargement abnormal R wave progression, late transition Left bundle branch block Abnormal ECG Confirmed by DAYTON CARSON MD ([id number]) on 03/05/2023 4:23:31 PM NAME : ARLETH ELIAS PID : [id number] : 1945 Gender : Female Race : ORD : [id number] Procedure Date : Feb 17 2023 16:50:19 Edit Date : Mar 05 2023 16:23:32 Diagnosis: Sinus rhythm Probable left atrial enlargement abnormal R wave progression, late transition Left bundle branch block Abnormal ECG Confirmed by DAYTON CARSON MD ([id number]) on 03/05/2023 4:23:31 PM Test Reason : Chest Pain Location : 400 : FVEKG 3P31 Overread By : DAYTON CARSON MD Edited By : DAYTON CARSON MD Referred By : , Acquired by : GABY CORONA [facility] HISTORY PHYSICALon HISTORY PHYSICAL HNO ID: [id number] Author: Mahsa Marley MD Service: Cardiovascular Medicine Author Type: Physician Type: HANDP Filed: 02/17/2023 2:43 PM Note Text: HANDP PRE-CARDIAC CATHETERIZATION SERVICE DATE: 02/17/2023 PRIMARY CARE PHYSICIAN: Aure Little, PHARM TECH, PHARM TECH SUBJECTIVE: CHIEF COMPLAINT: HPI: This is a 77 year old White female presenting with an NSTEMI and new onset LV dysfunction. She denies chest discomfort, lightheadedness or syncope, change in exercise capacity, and weight loss, weight gain PAST MEDICAL HISTORY Diagnosis Date Cardiomyopathy (HCC) Claudication (HCC) DM (diabetes mellitus) (HCC) HTN (hypertension) Incontinence NSVT (nonsustained ventricular tachycardia) (HCC) Sciatica Systolic CHF (HCC) PAST SURGICAL HISTORY Procedure Laterality Date CHOLECYSTECTOMY REMV CATARACT EXTRACAP,INSERT LENS Bilateral TOTAL ABDOMINAL HYSTERECT W/WO RMVL TUBE OVARY FAMILY HISTORY Problem Relation Age of Onset other (cabg) Mother other (pacemaker) Mother Diabetes Father Lung Cancer Father COPD Brother Social History Tobacco Use Smoking status: Former Smokeless tobacco: Never Tobacco comments: Social for approx 1 year around age 36 Substance Use Topics Alcohol use: Not Currently Drug use: Never MEDICATIONS: perflutren lipid microspheres 1.3 mL in NaCl (PF) 0.9% 10 mL injection (DEFINITY), , INTRAVENOUS, DIRECTED PRN, Chalo Pritchard, sodium chloride 0.9 % (flush) 10 mL (BD POSIFLUSH), 10 mL, INTRAVENOUS, DIRECTED PRN, Chalo Pritchard, insulin detemir U-100 (LEVEMIR) 100 unit/mL (3 mL) injection pen, Inject 28 Units subcutaneously daily at bedtime., Disp: , Rfl: semaglutide (OZEMPIC) 1 mg/dose (4 mg/3 mL) pen, Inject 1 mg subcutaneously once weekly, Disp: 1 Each, Rfl: 11 magnesium oxide (MAG-OX) 400 mg (241.3 mg magnesium) tablet, TAKE 1 TABLET BY MOUTH TWICE DAILY. TAKE SEPERATELY FROM DOXYCYCLINE, Disp: 180 tablet, Rfl: 3 aspirin, enteric coated (ASPIRIN, ENTERIC COATED) 81 mg EC tablet, Take 81 mg by mouth once daily., Disp: , Rfl: , 02/17/2023 rosuvastatin (CRESTOR) 40 mg tablet, Take 1 tablet by mouth daily at bedtime., Disp: 90 tablet, Rfl: 3 carvedilol (COREG) 25 mg tablet, Take 1 tablet by mouth twice daily., Disp: 180 tablet, Rfl: 3, 02/17/2023 furosemide (LASIX) 20 mg tablet, Take 1 tablet by mouth twice daily., Disp: 60 tablet, Rfl: 2, 02/17/2023 allopurinol (ZYLOPRIM) 100 mg tablet, allopurinol 100 mg tablet, Disp: , Rfl: blood sugar diagnostic (BLOOD GLUCOSE TEST) test strip, Use as instructed to monitor glucose. One touch ultra verio test strips., Disp: 300 Each, Rfl: 3 Lancets lancets, Use as instructed, Disp: 300 Each, Rfl: 3 Blood-Glucose Sensor (FREESTYLE RU 3 SENSOR) mauricio, Use new sensor every 14 days to monitor blood glucose., Disp: 6 Each, Rfl: 3 CPAP/BIPAP/OTHER, Type .CPAPSettings into a note to see current settings/supplies/DME information., Disp: 1 Each, Rfl: 0 Insulin [place], Disposable, (BD ULTRA-FINE RUBIA PEN NEEDLE) 32 gauge x 5/32 ndle, BD Ultra-Fine Rubia Pen Needle 32 gauge x 5/32 , Disp: , Rfl: fluticasone (FLONASE) 50 mcg/actuation nasal spray, fluticasone propionate 50 mcg/actuation nasal spray,suspension, Disp: , Rfl: ALLERGIES: ALLERGIES Allergen Reactions Penicillins Anaphylaxis, Hives Dye Itching Xray dye > 20-30 years ago, throat itching Iodinated Contrast * Other: See Comments Throat itching to some Xray dye >20-30 years ago REVIEW OF SYSTEMS: GENERAL: Negative for Weight Loss or Gain, Fever, Chills, Weakness and Sleep Difficulties HEENT: Negative for Headache, Impaired Vision, Glasses, Hearing Impairment, Ringing in Ears, Nosebleeds, Poor Dental Care, Bleeding Gums and Dentures NECK: Negative for Swelling, Pain and Stiffness CARDIOVASCULAR: See HPI RESPIRATORY: Negative for cough, wheezing, hemoptysis and shortness of breath GASTROINTESTINAL: Negative for Trouble Swallowing, Heartburn, Change in Bowel Habits, Blood in Stool, Dark/Black Stools GENITOURINARY: Negative for Blood in Urine, Painful Urination and Frequency MUSCULOSKELETAL: Negative for Muscle or Joint Pain, Stiffness and Joint Swelling NEUROLOGIC/PSYCHOLOGI C: Negative for Weakness, Paralysis, Numbness, Tingling, Tremor, Nervousness, Depressed Mood, Memory Loss SKIN: Negative for Rashes and Itching HEMATOLOGIC/LYMPHATIC : Negative for Easy Bruising and Easy Bleeding ENDOCRINE: Negative for Heat or Cold Intolerance, Excessive Sweating, Frequent Urination and Frequent Thirst OBJECTIVE: PHYSICAL EXAM: BP 132/77 Pulse 84 Temp 37.6 ?C (99.7 ?F) Resp 16 Ht 167.6 cm (5' 6 ) Wt 83.1 kg (183 lb 3.2 oz) SpO2 91% BMI 29.57 kg/m? Pleasant, comfortable, not in acute distress. Awake, alert, oriented times 3. Moves all extremities. SKIN: No rash or lumps. HEENT: Normocephalic, face symmetrical. NECK: Supple, no JVD, no carotid bruit, no thyromegaly. LUNGS: Clear to a (more content not included)... Normal [facility] Magnesium [Mass/Vol] 2.5 mg/dL High 1.7-2.3 [facility] Comment on above: Order Comment: Speci men Type: BLOOD SPECIMENOrdering Facility: [facility] Address: [address], [place] [address] Performed By: #### 2 4323-8, 38623-9 ####[facility]ORATORYCLIA [id number] [facility] [address] [place] [address] [facility] NURSING PROGon 02-17-2023 NURSING PROG HNO ID: [id number] Author: Christel Newman, RN Service: ? Author Type: Registered Nurse Type: Nursing Progress Note Filed: 02/17/2023 7:57 PM Note Text: 1630 Patient arrived to CPPU from skilled labor. TR band noted. No complaint of pain or discomfort. NSR on tele. Call light within reach. Patient reminded and encouraged to call for assistance as needed. 1720 Dr Marley at bedside to speak with patient and spouse. 1840 TR band deflate initiated. 2cc of air removed. 1910 Patient with complaints of chest tightness. Stat EKG ordered. Dr Marley notified. 1930 Patient with complaint of shortness of breath. Lung sounds CTA. 97% on RA. Dr Marley notified. 1950 Order for one time IV dose Lasix placed. 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 PROCEDURE REPORT SERVICE DATE: 02/17/2023 PUMP AND BLOWER OPERATOR: Mahsa Marley MD ATTENDING: Mahsa Marley MD PRIMARY CARE PHYSICIAN: Aure Little, GUALBERTO, PHARM TECH REFERRING PROVIDER: Chalo Pritchard MD [place] STUDY OF HEALTH and AGING SCALE:3=Managing Well CARDIOVASCULAR INSTABILITY:No PRE-PROCEDURE DIAGNOSIS: LV Dysfunction Non-STEMI POST PROCEDURE DIAGNOSIS: [place] Coronary Artery Disease in the LAD (Severe) and LCX (Mild) Successful PCI of LAD PROCEDURE: Left Heart Catheterization IFR in LAD IVUS in LAD Angioplasty and Synergy (Drug Eluting Stent) Placement in Mid LAD Right radial and brachial artery angiogram LV and Aortic Pressures MODERATE SEDATION: Sedation, MAC, or GETA provided by a professional other than physician performing procedure (Anesthesia). PRIORITY AT TIME OF PROCEDURE: Elective SITE OF ENTRY: Radial:Right Radial CONTRAST: Omnipaque 350 mg Iodine/mL (iohexol injection, solution): 165 mL LEFT HEART CATHETERIZATION AND FINDINGS: The patient was taken to the cardiac skilled labor where the entry site was prepped and draped in a sterile manner. Under local anesthesic with 2% Lidocaine, the vessel was cannulated with Seldinger's technique using an arterial needle and a 6F sheath was introduced. Selective injections were made in the left and right coronary arteries. Various right, left and oblique views were obtained. The aortic valve was crossed and hemodynamic measurements were recorded. LV Angiogram was performed. ADDITIONAL PROCEDURES: INTERROGATION AND ASSESSMENT OF LESION: The lesion in the LAD vessel was noted angiographically to be a borderline lesion and IFR was completed for physiological assessment to determine severity. The catheter was replaced with a guiding catheter; the vessel was engaged and a pressure wire was advanced. IFR baseline measurement was completed and recorded at 0. Result less or equal to 0.89; the lesion is physiologically significant invasive treatment is warranted. The guidewire engaged the LAD and the Lcx. The guide wire was advanced crossing the lesion and IVUS device was advanced over the guide wire. The lesion was interrogated; images were obtained and recorded. Measurements were completed for lumen and vessel diameter/area. The percent of stenosis was confirmed. iFR was performed to assess the physiologic significance of the LAD lesion that was seen previously, and the results were 0.9 and 0.88. As a result I was concerned about the accuracy of the LAD lesion and decided to assess with IVUS. In the mid segment there was a very tight lesion noted with a measured MLA of 2.2mm2 with a proximal reference of close to 6.0 mm2. As I was also concerned regarding the ostium of the Lcx, I put a wire down the Lcx and used the HD-IVUS to assess. The MLA in the ostium was close to 8mm2 despite a calcified nodule in the ostium. This lesion was left alone and we decided to stent the LAD. CORONARY ANGIOGRAPHY: LEFT MAIN TRUNK: No Stenosis LEFT ANTERIOR DESCENDIN% Stenosis Location: Mid, Calcified DIAGONAL #1: No Stenosis LEFT CIRCUMFLEX: 40% Stenosis Location: Ostial MARGINAL #1: No Stenosis DOMINANT: NO RIGHT CORONARY: No Stenosis DOMINANT: YES POSTERIOR DESCENDING: No Stenosis POSTERIOR LATERAL: No Stenosis HEMODYNAMICS: LVEDP: 13mmHg LV - AORTA: No Gradient PERCUTANEOUS CORONARY INTERVENTION: The catheterization angiogram was reviewed affirming the patient was indicated for PCI. Heparin was given for anticoagulation. A guiding catheter was advanced under fluoroscopy and the vessel was engaged. Using standard protocol, angioplasty was performed and cardiac stent(s) were placed in the following vessel(s). LAD Lesion Type: Class B2 Guiding Catheter(s): XB-LAD 3.5 Pre Dilatation Balloon Size: 2.5 mm X 20 mm compliant, followed by a 3.0 x 20mm Noncompliant with excellent expansion both times. Pre ANTHONY Blood Flow: 3 Mid Stent Placed: Type: Synergy (Drug Eluting Stent) Size: 3.0 mm Length: 24 mm Post Stenting IVUS was performed and showed that the proximal portion of the stent the MSA was 5.0 and this lead to post dilatation Post Dilatation Balloon Size: 3.25 x 12mm Post ANTHONY Blood Flow: 3 Result: Successful. The sheath was removed and hemostatsis was established using a radial band . There was no bleeding at the end of the procedure. The pt was returned to the recovery room in a stable condition. Following the case the patient was still complaining of some arm pain and as such with the wire difficulty we had initially we decided to shoot a picture of the right arm, radial artery and brachial artery that was negative for perforation. ESTIMATED BLOOD LOSS: Less Than Minimal Unless Noted Here. COMPLICATIONS: (more content not included)... Normal [facility] THERAPY NTon 02-17-2023 THERAPY NT HNO ID: [id number] Author: Amira Zhao, PRODUCT SAFETY COORDINATOR Service: Respiratory Therapy Author Type: Registered Resp Therapist Type: Therapy (PT/OT/Speech/Resp) Filed: 02/16/2023 11:52 PM Note Text: Pt is declining cpap, states she doesn't wear one at home. Normal [facility] CBC W Auto Differential pane l (Bld)on 02-16-2023 Basophils (Bld) [#/Vol] 0.05 10*3/uL Normal <0.11 [facility] Comment on above: Order Comment: Speci men Type: BLOOD SPECIMENOrdering Facility: [facility] Address: [address] [place] [address] [place] [address] Performed By: #### 5 7021-8 ####[facility] LABORATORYCLIA [id number] [facility] [place] [address] [place] Basophils/100 WBC (Bld) 0.5 % Normal [facility] Comment on above: Order Comment: Speci men Type: BLOOD SPECIMENOrdering Facility: [facility] Address: [address] [place] [address] Performed By: #### 5 7021-8 ####[facility]ORATORYCLIA [id number] [place] [address] [place] Differential cell count method Nom (Bld) Auto Normal [facility] Comment on above: Order Comment: Speci men Type: BLOOD SPECIMENOrdering Facility: [facility] Address: [address] [place] [address] Performed By: #### 5 7021-8 ####[facility]PITAL[facility] [id number] [place] [id number] [place] Eosinophils (Bld) [#/Vol] 0.06 10*3/uL Normal <0.46 [facility] Comment on above: Order Comment: Speci men Type: BLOOD SPECIMENOrdering Facility: [facility] Address: [address] [place] [address] Performed By: #### 5 7021-8 ####[facility]ITAL[facility] [id number] [place] [id number] [place] Eosinophils/100 WBC (Bld) 0.5 % Normal [facility] Comment on above: Order Comment: Speci men Type: BLOOD SPECIMENOrdering Facility: [facility] Address: [address] [place] [address] Performed By: #### 5 7021-8 ####[facility] LABORATORYIA [id number] [place] [id number] [place] Erythrocyte distribution width (RBC) [Ratio] 16.5 % High 11.5-15.0 [facility] Comment on above: Order Comment: Speci men Type: BLOOD SPECIMENOrdering Facility: [facility] Address: [address] [place] [address] Performed By: #### 5 7021-8 ####[facility] LABORATORYIA [id number] [place] [id number] [place] Hematocrit (Bld) [Volume fraction] 38.1 % Normal 36.0-46.0 [facility] Comment on above: Order Comment: Speci men Type: BLOOD SPECIMENOrdering Facility: [facility] Address: [address] [place] [address] Performed By: #### 5 7021-8 ####[facility]ITAL[facility] [id number] [place] [address] [place] Hemoglobin (Bld) [Mass/Vol] 12.2 g/dL Normal 11.5-15.5 [facility] Comment on above: Order Comment: Speci men Type: BLOOD SPECIMENOrdering Facility: [facility] Address: [address] [place] [address] Performed By: #### 5 7021-8 ####[facility]ITAL[facility] [id number] [place] [address] [place] Immature granulocytes (Bld) [#/Vol] 0.04 10*3/uL Normal <0.10 [facility] Comment on above: Order Comment: Speci men Type: BLOOD SPECIMENOrdering Facility: [facility] Address: [address] [place] [address] Performed By: #### 5 7021-8 ####[facility]ORATORYIA [id number] [place] [id number] [place] Immature granulocytes/100 WBC (Bld) 0.4 % Normal [facility] Comment on above: Order Comment: Speci men Type: BLOOD SPECIMENOrdering Facility: [facility] Address: [address] [place] [address] Performed By: #### 5 7021-8 ####[facility]ORATORYIA [id number] [place] [address] [place] Lymphocytes (Bld) [#/Vol] 2.82 10*3/uL Normal 1.00-4.00 [facility] Comment on above: Order Comment: Speci men Type: BLOOD SPECIMENOrdering Facility: [facility] Address: [address] [place] [address] Performed By: #### 5 7021-8 ####[facility]ITAL[facility] [id number] [address] OF [facility] Lymphocytes/100 WBC (Bld) 25.5 % Normal [facility] Comment on above: Order Comment: Speci men Type: BLOOD SPECIMENOrdering Facility: [facility] Address: [address] [place] [address] Performed By: #### 5 7021-8 ####[facility]ITAL[facility] [id number] [place] [address] [place] MCH (RBC) [Entitic mass] 27.6 pg Normal 26.0-34.0 [facility] Comment on above: Order Comment: Speci men Type: BLOOD SPECIMENOrdering Facility: [facility] Address: [address] [place] [address] Performed By: #### 5 7021-8 ####[facility] [id number] [address] [place] MCHC (RBC) [Mass/Vol] 32.0 g/dL Normal 30.5-36.0 [facility] Comment on above: Order Comment: Speci men Type: BLOOD SPECIMENOrdering Facility: [facility] Address: [address] [place] [address] Performed By: #### 5 7021-8 ####[facility]ATORYIA [id number] [address] [place] MCV (RBC) [Entitic vol] 86.2 fL Normal 80.0-100.0 [facility] Comment on above: Order Comment: Speci men Type: BLOOD SPECIMENOrdering Facility: [facility] Address: [address] [place] [address] Performed By: #### 5 7021-8 ####[facility] LABORATORYIA [id number] [place] [address] [place] Monocytes (Bld) [#/Vol] 0.97 10*3/uL High <0.87 [facility] Comment on above: Order Comment: Speci men Type: BLOOD SPECIMENOrdering Facility: [facility] Address: [address] [place] [address] Performed By: #### 5 7021-8 ####[facility]ORATORYCLIA [id number] [facility] [place] [address] [place] Monocytes/100 WBC (Bld) 8.8 % Normal [facility] Comment on above: Order Comment: Speci men Type: BLOOD SPECIMENOrdering Facility: [facility] Address: [address] [place] [address] Performed By: #### 5 7021-8 ####[facility]ORATORYCLIA [id number] [facility] [place] [address] [place] Neutrophils (Bld) [#/Vol] 7.12 10*3/uL Normal 1.45-7.50 [facility] Comment on above: Order Comment: Speci men Type: BLOOD SPECIMENOrdering Facility: [facility] Address: [address] [place] [address] Performed By: #### 5 7021-8 ####[facility]ORATORYCLIA [id number] [place] [address] [place] Neutrophils/100 WBC (Bld) 64.3 % Normal [facility] Comment on above: Order Comment: Speci men Type: BLOOD SPECIMENOrdering Facility: [facility] Address: [address] [place] [address] Performed By: #### 5 7021-8 ####[facility]ORATORYCLIA [id number] [place] [address] [place] Nucleated RBC (Bld) [#/Vol] 10*3/uL Normal <0.01 [facility] Comment on above: Order Comment: Speci men Type: BLOOD SPECIMENOrdering Facility: [facility] Address: [address] [place] [address] Performed By: #### 5 7021-8 ####[facility]ORATORYCLIA [id number] [facility] [place] [address] [place] Nucleated RBC/100 WBC (Bld) [Ratio] 0.0 /100 WBC Normal [facility] Comment on above: Order Comment: Speci men Type: BLOOD SPECIMENOrdering Facility: [facility] Address: [address] [place] [address] Performed By: #### 5 7021-8 ####[facility]ORATORYIA [id number] [place] [address] [place] Platelet mean volume (Bld) [Entitic vol] 10.1 fL Normal 9.0-12.7 [facility] Comment on above: Order Comment: Speci men Type: BLOOD SPECIMENOrdering Facility: [facility] Address: [address] [place] [address] Performed By: #### 5 7021-8 ####[facility]IA [id number] [place] [address] [place] Platelets (Bld) [#/Vol] 177 10*3/uL Normal 150-400 [facility] Comment on above: Order Comment: Speci men Type: BLOOD SPECIMENOrdering Facility: [facility] Address: [address] [place] [address] Performed By: #### 5 7021-8 ####[facility] [id number] [place] [address] [place] RBC (Bld) [#/Vol] 4.42 10*6/uL Normal 3.90-5.20 [facility] Comment on above: Order Comment: Speci men Type: BLOOD SPECIMENOrdering Facility: [facility] Address: [address] [place] [address] Performed By: #### 5 7021-8 ####[facility]ORATORYIA [id number] [place] [address] [place] WBC (Bld) [#/Vol] 11.06 10*3/uL High 3.70-11.00 [facility] Comment on above: Order Comment: Speci men Type: BLOOD SPECIMENOrdering Facility: [facility] Address: [address], [place] [address] Performed By: #### 5 7021-8 ####[facility]ORATORYCLIA [id number] [facility] [place] [address] [place] Vianney 02-16-2023 CNPN Telephone (MEPRAD) ARLETH ELIAS ([id number]) 1945 F Date Time Provider Department 02/16/23 PRADIP BEE MEPRAD During your visit today, we recorded the following information about you: Pradip Bee DO 02/16/2023 4:20 PM Signed Arleth Elias cc: CHF, likely needs heart cath 77 yo F hx of CHF, CAD, HTN, PVD, DM was in [facility] over the weekend for chest pain and SOB. Found to have EF 15-20% (down from 48%) CXR pulmonary edema HS trop 16-16 EKG new nonspecific intraventricular conduction delay started on IV lasix cardiology recommends transfer for cath and CHF. Dr. Hein recommends PK2 Allergies As of Date: 02/16/2023 Noted Allergy Reaction PENICILLINS 06/29/2014 10 - Anaphylaxis 4 - Hives DYE 08/17/2016 9 - Itching Comments: Xray dye > 20-30 years ago, throat itching IODINATED CONTRAST MEDIA 12/22/2018 14 - Other: See Comments Comments: Throat itching to some Xray dye >20-30 years ago Date Reviewed: 02/16/2023 Reviewed by: Osiris Phoenix, RN - Fully Assessed Reason for Visit: Hospital To Hospital [[id number]] Prescriptions as of 02/16/2023 - blood sugar diagnostic (BLOOD GLUCOSE TEST) test strip Use as instructed to monitor glucose. One touch ultra verio test strips. - Lancets lancets Use as instructed - insulin detemir U-100 (LEVEMIR) 100 unit/mL (3 mL) injection pen Inject 28 Units subcutaneously daily at bedtime. - Blood-Glucose Sensor (FREESTYLE RU 3 SENSOR) mauricio Use new sensor every 14 days to monitor blood glucose. - CPAP/BIPAP/OTHER Type .CPAPSettings into a note to see current settings/supplies/DME information. - semaglutide (OZEMPIC) 1 mg/dose (4 mg/3 mL) pen Inject 1 mg subcutaneously once weekly - magnesium oxide (MAG-OX) 400 mg (241.3 mg magnesium) tablet TAKE 1 TABLET BY MOUTH TWICE DAILY. TAKE SEPERATELY FROM DOXYCYCLINE - aspirin, enteric coated (ASPIRIN, ENTERIC COATED) 81 mg EC tablet Take 81 mg by mouth once daily. - rosuvastatin (CRESTOR) 40 mg tablet Take 1 tablet by mouth daily at bedtime. - carvedilol (COREG) 25 mg tablet Take 1 tablet by mouth twice daily. - furosemide (LASIX) 20 mg tablet Take 1 tablet by mouth twice daily. - Insulin [place], Disposable, (BD ULTRA-FINE RUBIA PEN NEEDLE) 32 gauge x 5/32 ndle BD Ultra-Fine Rubia Pen Needle 32 gauge x 5/32 - allopurinol (ZYLOPRIM) 100 mg tablet allopurinol 100 mg tablet - fluticasone (FLONASE) 50 mcg/actuation nasal spray fluticasone propionate 50 mcg/actuation nasal spray,suspension Facility-Administered Medications as of 02/16/2023 - perflutren lipid microspheres 1.3 mL in NaCl (PF) 0.9% 10 mL injection (DEFINITY) - sodium chloride 0.9 % (flush) 10 mL (BD POSIFLUSH) Problem List As Of Date 02/16/2023 Noted Resolved Posterior tibial tendonitis [M76.829] 09/19/2015 Chronic pain of right ankle [M25.571, G89.29] 09/19/2015 Claudication (HCC) [I73.9] 11/18/2018 Essential hypertension [I10] 11/18/2018 Mixed hyperlipidemia [E78.2] 11/18/2018 Class 1 obesity due to excess calories with ser*11/18/2018 Systolic heart failure (HCC) [I50.20] 12/22/2018 Nonsustained ventricular tachycardia (HCC) [I47*12/22/2018 Bruit of left carotid artery [R09.89] 12/22/2018 Diabetes mellitus (HCC) [E11.9] 01/25/2019 Intermittent claudication of both lower extremi*01/27/2019 Cardiomyopathy (HCC) [I42.9] 06/07/2019 Preoperative testing [Z01.818] 06/07/2019 Coronary artery disease without angina pectoris*06/08/2019 Aortoiliac occlusive disease (HCC) [I74.09] 01/02/2020 Encounter Status:Closed by PRADIP BEE on 02/16/23 [facility] Comprehensive metabolic 2000 panelon 02-16-2023 Albumin [Mass/Vol] 4.0 g/dL Normal 3.9-4.9 [facility] Comment on above: Order Comment: Speci men Type: BLOOD SPECIMENOrdering Facility: [facility] Address: [address] [place] [address] Performed By: #### 3 016-3, 35973-6, 49799-0, 86842-4 ####[facility]ORATORYCLIA [id number] [place] [address] [place] ALP [Catalytic activity/Vol] 97 U/L Normal 34-123 [facility] Comment on above: Order Comment: Speci men Type: BLOOD SPECIMENOrdering Facility: [facility] Address: [address] [place] [address] Performed By: #### 3 016-3, 63455-4, 14719-5, 15652-8 ####[facility]ORATORYCLIA [id number] [place] [address] [place] ALT [Catalytic activity/Vol] 11 U/L Normal 7-38 [facility] Comment on above: Order Comment: Speci men Type: BLOOD SPECIMENOrdering Facility: [facility] Address: [address] [place] [address] Performed By: #### 3 016-3, 32596-4, 50767-5, 26776-0 ####[facility]ORATORYCLIA [id number] [place] [address] [place] Anion gap [Moles/Vol] 14 mmol/L Normal 9-18 [facility] Comment on above: Order Comment: Speci men Type: BLOOD SPECIMENOrdering Facility: [facility] Address: [address] [place] [address] Performed By: #### 3 016-3, 28842-3, 04241-1, ####[facility]ORATORYCLIA [id number] [place] [address] [place] AST [Catalytic activity/Vol] 18 U/L Normal 13-35 [facility] Comment on above: Order Comment: Speci men Type: BLOOD SPECIMENOrdering Facility: [facility] Address: [address] [place] [address] Performed By: #### 3 016-3, 28308-2, 97748-7, ####[facility]ATORYCLIA [id number] [place] [address] [place] Bilirubin [Mass/Vol] 1.6 mg/dL High 0.2-1.3 [facility] Comment on above: Order Comment: Speci men Type: BLOOD SPECIMENOrdering Facility: [facility] Address: [address] [place] [address] Performed By: #### 3 016-3, 94587-8, 09999-9, ####[facility]ORATORYCLIA [id number] [place] [address] [place] Calcium [Mass/Vol] 8.4 mg/dL Low 8.5-10.2 [facility] Comment on above: Order Comment: Speci men Type: BLOOD SPECIMENOrdering Facility: [facility] Address: [address] [place] [address] Performed By: #### 3 016-3, 78483-1, 82199-4, ####[facility]ORATORYIA [id number] [place] [address] [place] Chloride [Moles/Vol] 100 mmol/L Normal 97-105 [facility] Comment on above: Order Comment: Speci men Type: BLOOD SPECIMENOrdering Facility: [facility] Address: [address] [place] [address] Performed By: #### 3 016-3, 38717-2, 03122-1, 11632-3 ####[facility]ATORYCLIA [id number] [place] [address] [place] CO2 [Moles/Vol] 24 mmol/L Normal 22-30 [facility] Comment on above: Order Comment: Speci men Type: BLOOD SPECIMENOrdering Facility: [facility] Address: [address] [place] [address] Performed By: #### 3 016-3, 41902-4, 22418-5, 43020-4 ####[facility]ATORYCLIA [id number] [address] [place] Creatinine [Mass/Vol] 0.85 mg/dL Normal 0.58-0.96 [facility] Comment on above: Order Comment: Speci men Type: BLOOD SPECIMENOrdering Facility: [facility] Address: [address] [place] [address] Performed By: #### 3 016-3, 87716-9, 14419-9, 27368-5 ####[facility]ATORYIA [id number] [address] OF [facility] Creatinine and Glomerular filtration rate.predicted panel (S/P/Bld) 71 mL/min/1.73m??? Normal >=60 [facility] Comment on above: Order Comment: Speci men Type: BLOOD SPECIMENOrdering Facility: [facility] Address: [address] [place] [address] Result Comment: Tanisha mated Glomerular Filtration Rate (eGFR) is calculated using the 2020 CKD-EPI creatinine equation. This equation utilizes serum creatinine, sex, and age as parameters. The creatinine assay has traceable calibration to isotope dilution-mass spectrometry. Refer to KDIGO guidelines for clinical interpretation. In patients with unstable renal function, e.g. those with acute kidney injury, the eGFR may not accurately reflect actual GFR. Performed By: #### 3 016-3, 79460-5, 78821-9, 25485-5 ####[facility]ATORYCLIA [id number] [place] [address] [place] Glucose [Mass/Vol] 144 mg/dL High 74-99 [facility] Comment on above: Order Comment: Speci men Type: BLOOD SPECIMENOrdering Facility: [facility] Address: [address] [place], [place] [address] Result Comment: The [place] [employer] (ADA) provides guidance for cutoff values for fasting glucose and random glucose. The ADA defines fasting as no caloric intake for at least 8 hours. Fasting plasma glucose results between 100 to 125 mg/dL indicate increased risk for diabetes (prediabetes). Fasting plasma glucose results greater than or equal to 126 mg/dL meet the criteria for diagnosis of diabetes. In the absence of unequivocal hyperglycemia, results should be confirmed by repeat testing. In a patient with classic symptoms of hyperglycemia or hyperglycemic crisis, random plasma glucose results greater than or equal to 200 mg/dL meet the criteria for diagnosis of diabetes. Reference: Standards of Medical Care in Diabetes 2016, [place] [employer]. Diabetes Care. 2016.39(Suppl 1). Performed By: #### 3 016-3, 47507-5, 57599-4, 30140-0 ####[facility] [id number] [place] [address] [place] Potassium [Moles/Vol] 3.7 mmol/L Normal 3.7-5.1 [facility] Comment on above: Order Comment: Speci men Type: BLOOD SPECIMENOrdering Facility: [facility] Address: [address] [place], [place] [address] Performed By: #### 3 016-3, 46855-5, 01963-4, 75309-0 ####[facility] [id number] [facility] [place] [address] [place] Protein [Mass/Vol] 6.8 g/dL Normal 6.3-8.0 [facility] Comment on above: Order Comment: Speci men Type: BLOOD SPECIMENOrdering Facility: [facility] Address: [address] [place] [address] Performed By: #### 3 016-3, 76313-9, 98365-5, 81002-2 ####[facility]ORY[facility]IA [id number] [facility] [place] [address] [place] Sodium [Moles/Vol] 138 mmol/L Normal 136-144 [facility] Comment on above: Order Comment: Speci men Type: BLOOD SPECIMENOrdering Facility: [facility] Address: [address] [place] [address] Performed By: #### 3 016-3, 19598-1, 95298-9, 30621-7 ####[facility]ORY[facility] [id number] [place] [address] [place] Urea nitrogen [Mass/Vol] 28 mg/dL High 7- [facility] Comment on above: Order Comment: Speci men Type: BLOOD SPECIMENOrdering Facility: [facility] Address: [address] [place], [place] [address] Performed By: #### 3 016-3, 42443-0, 49046-6, 27954-7 ####[facility]ORY[facility] [id number] [facility] [place] [address] [place] ECG COMPLETEon 02-16-2023 ECG COMPLETE Ventricular Rate : 9 3 BPM Atrial Rate : 93 BPM P-R Interval : 164 ms QRS Duration : 154 ms Q-T Interval : 434 ms QTC Calculation(Bazett) : 539 ms Calculated P Reva : 51 degrees Calculated R Reva : -157 degrees Calculated T Reva : 56 degrees Normal sinus rhythm Nonspecific intraventricular block - wide compared to prior Possible Lateral infarct , age undetermined Abnormal ECG Confirmed by DO GOLDBERG JENNIFER ([id number]), advertising editor ANGIE TAM ([id number]) on 02/17/2023 7:15:25 AM NAME : ARLETH ELIAS PID : [id number] : 1945 Gender : Female Race : ORD : [id number] Procedure Date : Feb 16 2023 12:28:05 Edit Date : Feb 17 2023 07:15:31 Diagnosis: Normal sinus rhythm Nonspecific intraventricular block - wide compared to prior Possible Lateral infarct , age undetermined Abnormal ECG Confirmed by DO GOLDBERG JENNIFER ([id number]), advertising editor ANGIE TAM ([id number]) on 02/17/2023 7:15:25 AM Test Reason : Chest Pain Location : 302 : ED ED Overread By : DO GOLDBERG JENNIFER Edited By : ANGIE TAM Referred By : , Acquired by : [id number], [facility] ED NOTEon 02-16-2023 ED NOTE HNO ID: [id number] Author: Medina Machado RN Service: ? Author Type: Registered Nurse Type: ED Notes Filed: 02/16/2023 6:31 PM Note Text: Patient given gracia box [facility] ED NOTE HNO ID: [id number] Author: Medina Machado RN Service: ? Author Type: Registered Nurse Type: ED Notes Filed: 02/16/2023 2:10 PM Note Text: Patient desating in high 80's/low 90's, placed on 2L NC [facility] ED NOTE HNO ID: [id number] Author: Medina Machado RN Service: ? Author Type: Registered Nurse Type: ED Notes Filed: 02/16/2023 2:09 PM Note Text: Patient wheeled to the restroom [facility] ED NOTE HNO ID: [id number] Author: Medina Machado RN Service: ? Author Type: Registered Nurse Type: ED Notes Filed: 02/16/2023 12:55 PM Note Text: Patient reports to the ED with c/o SOB. Patient states she was d/c'd from [facility] yesterday for CHF and they sent her here for an ejection fraction of 15-20%. Patient denies CP. SOB. [facility] ED PROV NOTEon 02-16-2023 ED PROV NOTE HNO ID: [id number] Author: Nichelle Goldberg DO Service: Emergency Medicine Author Type: Physician Type: ED Provider Notes Filed: 02/16/2023 8:38 PM Note Text: ED Provider Note Patient Name: Arleth Elias : 1945 SERVICE DATE: 02/16/23 History Patient presents with: Shortness of Breath: +SOB. Recently admitted to hospital for CHF in [place], sts was d/c'd yesterday and called today that her EF on echo was 15-20%. Pt's magician helper is Dr. Pritchard through [facility]. 77-year-old female presents with concern for shortness of breath. Patient states that she had had a pressure in her chest all of last week. Over the weekend started to feel short of breath. She presented in an outlying hospital. Was found to be in CHF. Was hospitalized Wednesday and Wednesday and discharged yesterday. Received IV diuretics. Had an echo prior to discharge. Was called today and was told that her ejection fraction was between 15 and 20% and she needed to report to her magician helper. Patient denies any current chest pressure. Patient states that she still feels short of breath with exertion. PAST MEDICAL HISTORY Diagnosis Date Cardiomyopathy (HCC) Claudication (HCC) DM (diabetes mellitus) (HCC) HTN (hypertension) Incontinence NSVT (nonsustained ventricular tachycardia) (HCC) Sciatica Systolic CHF (HCC) PAST SURGICAL HISTORY Procedure Laterality Date CHOLECYSTECTOMY TOTAL ABDOMINAL HYSTERECT W/WO RMVL TUBE OVARY No family history on file. Social History Tobacco Use Smoking status: Former Smokeless tobacco: Never Tobacco comments: quit at 36. Substance and Sexual Activity Alcohol use: Not Currently Drug use: Never Sexual activity: Not on file ALLERGIES Allergen Reactions Penicillins Anaphylaxis, Hives Dye Itching Xray dye > 20-30 years ago, throat itching Iodinated Contrast * Other: See Comments Throat itching to some Xray dye >20-30 years ago Review of Systems Constitutional: Positive for activity change and fatigue. Respiratory: Positive for shortness of breath. Negative for cough. Cardiovascular: Positive for chest pain (resolved). Negative for leg swelling. Gastrointestinal: Negative for abdominal pain and vomiting. Genitourinary: Negative for difficulty urinating. Musculoskeletal: Negative for back pain. Skin: Negative for color change. Neurological: Positive for weakness (general). Negative for headaches. Physical Exam Vitals BP Pulse Temp Temp src Resp SpO2 Weight Height 02/16/23 1226 02/16/23 1226 02/16/23 1228 02/16/23 1226 02/16/23 1226 02/16/23 1226 02/16/23 1228 02/16/23 1228 122/68 (!) 99 36.9 ?C (98.5 ?F) Oral 19 (!) 94 % 83 kg (183 lb) 1.676 m (5' 6 ) Physical Exam Vitals reviewed. Constitutional: Appearance: She is well-developed. HENT: Head: Normocephalic and atraumatic. Eyes: Conjunctiva/sclera: Conjunctivae normal. Pupils: Pupils are equal, round, and reactive to light. Cardiovascular: Rate and Rhythm: Normal rate and regular rhythm. Pulmonary: Effort: Pulmonary effort is normal. Breath sounds: Rales present. Abdominal: Palpations: Abdomen is soft. Tenderness: There is no abdominal tenderness. Musculoskeletal: General: No tenderness. Cervical back: Normal range of motion and neck supple. Right lower leg: No edema. Left lower leg: No edema. Skin: General: Skin is warm and dry. Neurological: General: No focal deficit present. Mental Status: She is alert and oriented to person, place, and time. Psychiatric: Mood and Affect: Mood normal. Behavior: Behavior normal. Diagnostic Testing ED Labs Ordered and Reviewed COMP METABOLIC PANEL - Abnormal; Notable for the following components: Result Value Ref Range Calcium, Total 8.4 (*) 8.5 - 10.2 mg/dL Bilirubin, Total 1.6 (*) 0.2 - 1.3 mg/dL Glucose 144 (*) 74 - 99 mg/dL BUN 28 (*) 7 - 21 mg/dL All other components within normal limits CBC + DIFF - Abnormal; Notable for the following components: WBC 11.06 (*) 3.70 - 11.00 k/uL RDW-CV 16.5 (*) 11.5 - 15.0 % Abs Lyon 0.97 (*) <0.87 k/uL All other components within normal limits NT PRO BNP - Abnormal; Notable for the following components: NT Pro BNP 2,090 (*) <450 pg/mL All other components within normal limits HIGH SENSITIVITY TROPONIN T (INITIAL) - Abnormal; Notable for the following components: ADONAY High Sensitivity 16 (*) <12 ng/L All other components within normal limits HIGH SENSITIVITY TROPONIN T (SECOND) - Abnormal; Notable for the following components: ADONAY High Sensitivity 16 (*) <12 ng/L All other components within normal limits HIGH SENSITIVITY TROPONIN T (THIRD) 3 HRS AFTER INITIAL - Abnormal; Notable for the following components: ADONAY High Sensitivity 17 (*) <12 ng/L All other components within normal limits Procedures ED Course / Clinical Impression ED Course as of 02/16/232036 Nichelle Glodberg's Documentation Tue No (more content not included)... Normal [facility] HIGH SENSITIVITY TROPONIN T (INITIAL)on 02-16-2023 Troponin T.cardiac High sensitivity method [Mass/Vol] 16 ng/L High <12 [facility] Comment on above: Order Comment: Brooklyn andrew Type: BLOOD SPECIMENOrdering Facility: [facility] Address: [address] [place] [address] Result Comment: When assessing risk for acute coronary syndromes: In patients undergoing blood draw greater than or equal to 2 hours from symptom onset, with history of very low to moderate risk and non-ischemic ECG, an initial hs-Troponin T less than 12 ng/L AND a 1 hour delta hs-Troponin T less than 3 ng/L should be considered very low risk for 30 day MACE. Performed By: #### L [id number] ####[facility]ORYCLIA [id number] [place] [address] [place] HIGH SENSITIVITY TROPONIN T (SECOND)on 02-16-2023 Troponin T.cardiac High sensitivity method [Mass/Vol] 16 ng/L High <12 [facility] Comment on above: Order Comment: Brooklyn andrew Type: BLOOD SPECIMENOrdering Facility: [facility] Address: [address] [place] [address] Result Comment: When assessing risk for acute coronary syndromes: In patients undergoing blood draw greater than or equal to 2 hours from symptom onset, with history of very low to moderate risk and non-ischemic ECG, an initial hs-Troponin T less than 12 ng/L AND a 1 hour delta hs-Troponin T less than 3 ng/L should be considered very low risk for 30 day MACE. Performed By: #### L [id number] ####[facility]ORYCLIA [id number] [place] [address] [place] HIGH SENSITIVITY TROPONIN T (THIRD) 3 HRS AFTER INITIALon 02-16-2023 Troponin T.cardiac High sensitivity method [Mass/Vol] 17 ng/L High <12 [facility] Comment on above: Order Comment: [place] andrew Type: BLOOD SPECIMENOrdering Facility: [facility] Address: [address], [place] [address] Result Comment: When assessing risk for acute coronary syndromes: In patients undergoing blood draw greater than or equal to 2 hours from symptom onset, with history of very low to moderate risk and non-ischemic ECG, an initial hs-Troponin T less than 12 ng/L AND a 1 hour delta hs-Troponin T less than 3 ng/L should be considered very low risk for 30 day MACE. Performed By: #### L [id number] ####[facility]ORATORYCLIA [id number] [facility] [place] [address] [place] [facility] HISTORY PHYSICALon HISTORY PHYSICAL HNO ID: [id number] Author: Nichelle Rubio APRN.CNP Service: Hospital Medicine Author Type: Nurse Practitioner Type: HANDP Filed: 02/16/2023 11:30 PM Note Text: DEPARTMENT OF HOSPITAL MEDICINE HISTORY AND PHYSICAL EXAM SERVICE DATE: 02/16/2023 Code Status: Not on file SERVICE TIME: 8:06 PM Primary Care Physician: Aure Ltitle, GUALBERTO, PHARM TECH NIGHT AND WEEKEND COVERAGE: [place] COVERAGE: Days: [phone], please contact via [employer] SecureMessage Nights: [phone] - 3rd floor: please page CC Hospitalist night cover #[phone] - 4W: please page CC Hospitalist night cover #[phone] - 5th floor: please page Hospitalist night cover #[phone] - SDU (18:00 - 19:00): Please page #[phone] - SDU (19:00 - 07:00): Please call [facility] at [phone] Subjective CHIEF COMPLAINT: Sent by doctor's office for newly found EF of 15%. Discharged from [facility] yesterday. HPI: This is a 77 year old female with a past medical history of chronic systolic heart failure with previously recovered EF 35 --> 61%, 48% in 09/2022, and reportedly ED 15% yesterday from OSH echo, non-obstructive CAD s/p LHC on 06/07/2019 (Dr. Pritchard) and 06/08/2019 (Dr. Kan, under op report, 50-60% stenosis to mid LAD, RCA and Lcx normal, follows with Dr. Pritchard), HTN, HLD, PVD s/p right axillobifemoral bypass graft on 01/02/20 for severe abdominal aortic stenosis at level of renal arteries, Type 2 DM, ERASMO, mild carotid atherosclerosis, NSVT, and overweight. 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 Patient was admitted to [facility] last week. Patient developed chest pressure that had been ongoing for 1 week, then Wednesday02/14/23 she developed shortness of breath. She states that the chest pressure stopped yesterday morning. She denies any radiation of discomfort, she also denies palpitations, lightheadedness, dizziness, TIAs or syncope. She denies recent cough. She denies recent edema or abdominal swelling. Unsure if she has had orthopnea because she sleeps in an adjustable bed and never lays flat. She denies any claudication but does have restless leg syndrome occasionally at bedtime. Patient states that at [place] she was treated with steroids. Echocardiogram was completed and she was discharged home prior to having a result. At the time of my assessment the patient is sitting up in bed at 90 degrees. No respiratory distress at rest. She is requiring supplemental oxygen. ED Course: - Afebrile, HR 79-99 BPM, RR 13-26/min, BP 105/68-142/88, currently 116/74. Labs: - CBC: WBC 11.6 (likely due to recent steroids) - CMP: Ca 8.4, Bili 1.6, Gluc 144, BUN28, K 3.7 - HS troponin: 16 --> 16 -->17 - Ma.5 - BNP: 2090 (no BNP for comparison) EKG: Normal sinus rhythm Nonspecific intraventricular block Possible Lateral infarct , age undetermined Abnormal ECG Imaging: - CXR: IMPRESSION: Findings suggestive of hydrostatic pulmonary edema/CHF. Treated with Lasix [address] Carrillo, ED provider discussed case with cardiology. Patient was accepted to [facility] with plans to be [facility]. Awaiting transfer. PAST MEDICAL HISTORY Diagnosis Date Cardiomyopathy (HCC) Claudication (HCC) DM (diabetes mellitus) ([facility]) HTN (hypertension) Incontinence NSVT (nonsustained ventricular tachycardia) (HCC) Sciatica Systolic CHF (HCC) PAST SURGICAL HISTORY Procedure Laterality Date CHOLECYSTECTOMY REMV CATARACT EXTRACAP,INSERT LENS Bilateral TOTAL ABDOMINAL HYSTERECT W/WO RMVL TUBE OVARY No family history on file. Social History Tobacco Use Smoking status: Former Smokeless tobacco: Never Tobacco comments: Social for approx 1 year around age 36 Substance Use Topics Alcohol use: Not Currently Drug use: Never PRIOR TO ADMISSION MEDICATIONS: perflutren lipid microspheres 1.3 mL in NaCl (PF) 0.9% 10 mL injection (DEFINITY), , INTRAVENOUS, DIRECTED PRN, Chalo Pritchard, sodium chloride 0.9 % (flush) 10 mL (BD POSIFLUSH), 10 mL, INTRAVENOUS, DIRECTED PRN, Chalo Pritchard, insulin detemir U-100 (LEVEMIR) 100 unit/mL (3 mL) injection pen, Inject 28 Units subcutaneously daily at bedtime., Disp: , Rfl: , 02/15/2023 semaglutide (OZEMPIC) 1 mg/dose (4 mg/3 mL) pen, Inject 1 mg subcutaneously once weekly, Disp: 1 Each, Rfl: , 02/15/2023 magnesium oxide (MAG-OX) 400 mg (241.3 mg magnesium) tablet, TAKE 1 TABLET BY MOUTH TWICE DAILY. TAKE SEPERATELY FROM DOXYCYCLINE, Disp: 180 tablet, Rfl: , 02/16/2023 aspirin, enteric coated (ASPIRIN, ENTERIC COATED) 81 mg EC tablet, Take 81 mg by mouth once daily., Disp: , Rfl: , 02/15/2023 rosuvastatin (CRESTOR) 40 mg tablet, Take 1 tablet by mouth daily at bedtime., Disp: 90 tablet, Rfl: 3, 02/15/2023 carvedilol (COREG) 25 mg tablet, Take 1 tablet by mouth twice daily., Disp: 180 tablet, (more content not included)... Normal [facility] Magnesium SerPl-mCncon 02-16 Magnesium [Mass/Vol] 2.5 mg/dL High 1.7-2.3 [facility] Comment on above: Order Comment: Speci men Type: BLOOD SPECIMENOrdering Facility: [facility] Address: [address] [place] [address] Performed By: #### 3 016-3, 63910-9, 04107-7, 54914-0 ####[facility] [id number] [facility] [id number] [facility] NT-proBNP [facility]-ncon 02-16 Natriuretic peptide.B prohormone N-Terminal [Mass/Vol] 2090 pg/mL High <450 [facility] Comment on above: Order Comment: Speci men Type: BLOOD SPECIMENOrdering Facility: [facility] Address: [address] [place] [address] Performed By: #### 3 016-3, 36117-9, 04160-1, 46736-2 ####[facility] [id number] [place] [id number] [facility] TSH SerPl-aCncon 02-16-2023 TSH Qn 4.300 m[IU]/L High 0.270-4.200 [facility] Comment on above: Order Comment: Speci men Type: BLOOD SPECIMENOrdering Facility: [facility] Address: [address] [place] [address] Performed By: #### 3 016-3, 10107-6, 97691-2, 78031-1 ####[facility] [id number] [place] [id number] [facility] XR CHEST 2V FRONTAL/LATon XR CHEST 2V FRONTAL/LAT * * *Final Report* * * DATE OF EXAM: Feb 16 2023 1:02PM VHX [id number] - XR CHEST 2V FRONTAL/LAT / PROCEDURE REASON: Shortness of breath * * * * Physician Interpretation * * * * EXAMINATION: CHEST RADIOGRAPH (2 VIEW FRONTAL and LATERAL) CLINICAL HISTORY: Shortness of breath MQ: XC2_6 EXAM DATE/TIME: 02/16/2023 1:02 PM COMPARISON: 01/05/2020 RESULT: Lines, tubes, and devices: None. Lungs and pleura: Bibasilar linear and reticular lung opacities are noted with vascular indistinctness near the lung bases. The upper lobes appear clear. Mild blunting of the costophrenic angles consistent with small pleural effusions. Cardiomediastinal silhouette: Stable cardiomediastinal silhouette. Bones and soft tissues: Degenerative changes are present within the thoracic spine. IMPRESSION: Findings suggestive of hydrostatic pulmonary edema/CHF. Freight Claim Investigator: JULIOCESAR Transcribe Date/Time: Feb 16 2023 1:25P Dictated by : SKY LEGER MD This examination was interpreted and the report reviewed and electronically signed by: SKY LEGER MD on Feb 16 2023 1:31PM EST [id number] Normal [facility] CNOVon 01-27-2023 CNOV Normal [facility] CNPNon 01-27-2023 CNPN Normal [facility] HEMOGLOBIN A1C (POC)on 01-27 HbA1c (Bld) [Mass fraction] 6.4 % 4.2 - 5.6 % [facility] CNOVon 12-17-2022 CNOV Normal [facility] [id number] 12-17-2022 ECG01 Normal [facility] Basic metabolic 2000 panelon 12-15-2022 Anion gap [Moles/Vol] 11 mmol/L Normal - [facility] Comment on above: Order Comment: Speci men Type: BLOOD SPECIMENOrdering Facility: [facility] Address: [address] [place] [place] [address] Performed By: #### 2 4321-2 ####[facility] LABCLIA [id number] [place] [address] Calcium [Mass/Vol] 9.4 mg/dL Normal 8.5-10.2 [facility] Comment on above: Order Comment: Speci men Type: BLOOD SPECIMENOrdering Facility: [facility] Address: [address] [place] [id number] Performed By: #### 2 4321-2 ####[facility] LABCLIA [id number] [place] [address] Chloride [Moles/Vol] 101 mmol/L Normal 97-[address] [facility] Comment on above: Order Comment: Speci men Type: BLOOD SPECIMENOrdering Facility: [facility] Address: [address] [place] [address] Performed By: #### 2 4321-2 ####[facility] LABCLIA [id number] [place] [address] CO2 [Moles/Vol] 27 mmol/L Normal 22-30 [facility] Comment on above: Order Comment: Speci men Type: BLOOD SPECIMENOrdering Facility: [facility] Address: [address] [place] [address] Performed By: #### 2 4321-2 ####[facility] LABCLIA [id number] [place] [address] Creatinine [Mass/Vol] 1.00 mg/dL High 0.58-0.96 [facility] Comment on above: Order Comment: Speci men Type: BLOOD SPECIMENOrdering Facility: [facility] Address: [address] [place] [address] Performed By: #### 2 4321-2 ####[facility] LABCLIA [id number] [place] [address] Creatinine and Glomerular filtration rate.predicted panel (S/P/Bld) 59 mL/min/1.73m??? Low >=60 [facility] Comment on above: Order Comment: Speci men Type: BLOOD SPECIMENOrdering Facility: [facility] Address: [address] [place] [address] Result Comment: Tanisha mated Glomerular Filtration Rate (eGFR) is calculated using the 2020 CKD-EPI creatinine equation. This equation utilizes serum creatinine, sex, and age as parameters. The creatinine assay has traceable calibration to isotope dilution-mass spectrometry. Refer to KDIGO guidelines for clinical interpretation. In patients with unstable renal function, e.g. those with acute kidney injury, the eGFR may not accurately reflect actual GFR. Performed By: #### 2 4321-2 ####[facility] LABCLIA [id number] [place] [address] Glucose [Mass/Vol] 121 mg/dL High 74-99 [facility] Comment on above: Order Comment: Speci men Type: BLOOD SPECIMENOrdering Facility: [facility] Address: [address] [place] [address] Result Comment: The [place] Diabetes [employer] (ADA) provides guidance for cutoff values for fasting glucose and random glucose. The ADA defines fasting as no caloric intake for at least 8 hours. Fasting plasma glucose results between 100 to 125 mg/dL indicate increased risk for diabetes (prediabetes).Fasting plasma glucose results greater than or equal to 126 mg/dL meet the criteria for diagnosis of diabetes. In the absence of unequivocal hyperglycemia, results should be confirmed by repeat testing. In a patient with classic symptoms of hyperglycemia or hyperglycemic crisis, random plasma glucose results greater than or equal to 200 mg/dL meet the criteria for diagnosis of diabetes.Reference: Standards of Medical Care in Diabetes 2016, [place] [employer]. Diabetes Care. 2016.39(Suppl 1). Performed By: #### 2 4321-2 ####[facility] LABCLIA [id number] [place] [address] Potassium [Moles/Vol] 3.7 mmol/L Normal 3.7-5.1 [facility] Comment on above: Order Comment: Speci men Type: BLOOD SPECIMENOrdering Facility: [facility] Address: [address] [place] [address] Performed By: #### 2 4321-2 ####[facility] LABCLIA [id number] [place] [address] Sodium [Moles/Vol] 139 mmol/L Normal 136-144 [facility] Comment on above: Order Comment: Speci men Type: BLOOD SPECIMENOrdering Facility: [facility] Address: [address] [place] [address] Performed By: #### 2 4321-2 ####[facility] LABCLIA [id number] [place] [address] Urea nitrogen [Mass/Vol] 14 mg/dL Normal 7-21 [facility] Comment on above: Order Comment: Speci men Type: BLOOD SPECIMENOrdering Facility: [facility] Address: [address] [address] Performed By: #### 2 4321-2 ####[facility] LABCLIA [id number] [place] [address] CBC panel Auto (Bld)on 12-15 Erythrocyte distribution width (RBC) [Ratio] 15.9 % High 11.5-15.0 [facility] Comment on above: Order Comment: Speci men Type: BLOOD SPECIMENOrdering Facility: [facility] Address: [address] [place] [address] Performed By: #### 5 8410-2 ####[facility] LABCLIA [id number] [place] [address] Hematocrit (Bld) [Volume fraction] 40.0 % Normal 36.0-46.0 [facility] Comment on above: Order Comment: Speci men Type: BLOOD SPECIMENOrdering Facility: [facility] Address: [address] [place] [address] Performed By: #### 5 8410-2 ####[facility] LABIA [id number] [place] [address] Hemoglobin (Bld) [Mass/Vol] 12.8 g/dL Normal 11.5-15.5 [facility] Comment on above: Order Comment: Speci men Type: BLOOD SPECIMENOrdering Facility: [facility] Address: [address] [place] [address] Performed By: #### 5 8410-2 ####[facility] LABCLIA [id number] [place] [address] MCH (RBC) [Entitic mass] 27.7 pg Normal 26.0-34.0 [facility] Comment on above: Order Comment: Speci men Type: BLOOD SPECIMENOrdering Facility: [facility] Address: [address] [place] [address] Performed By: #### 5 8410-2 ####[facility] LABCLIA [id number] [place] [address] MCHC (RBC) [Mass/Vol] 32.0 g/dL Normal 30.5-36.0 [facility] Comment on above: Order Comment: Speci men Type: BLOOD SPECIMENOrdering Facility: [facility] Address: [address] [place] [address] Performed By: #### 5 8410-2 ####[facility] LABCLIA [id number] [place] [address] MCV (RBC) [Entitic vol] 86.6 fL Normal 80.0-100.0 [facility] Comment on above: Order Comment: Speci men Type: BLOOD SPECIMENOrdering Facility: [facility] Address: [address] [place] [address] Performed By: #### 5 8410-2 ####[facility] LABIA [id number] [place] [address] Nucleated RBC (Bld) [#/Vol] 10*3/uL Normal <0.01 [facility] Comment on above: Order Comment: Speci men Type: BLOOD SPECIMENOrdering Facility: [facility] Address: [address] [place] [address] Performed By: #### 5 8410-2 ####[facility] LABCLIA [id number] [place] [address] Platelet mean volume (Bld) [Entitic vol] 10.3 fL Normal 9.0-12.7 [facility] Comment on above: Order Comment: Speci men Type: BLOOD SPECIMENOrdering Facility: [facility] Address: [address] [place] [address] Performed By: #### 5 8410-2 ####[facility] LABIA [id number] [place] [address] Platelets (Bld) [#/Vol] 197 10*3/uL Normal 150-400 [facility] Comment on above: Order Comment: Speci men Type: BLOOD SPECIMENOrdering Facility: [facility] Address: [address] [address] Performed By: #### 5 8410-2 ####[facility] LABCLIA [id number] [place] [address] RBC (Bld) [#/Vol] 4.62 10*6/uL Normal 3.90-5.20 [facility] Comment on above: Order Comment: Speci men Type: BLOOD SPECIMENOrdering Facility: [facility] Address: [address] [address] Performed By: #### 5 8410-2 ####[facility] LABIA [id number] [place] [address] WBC (Bld) [#/Vol] 8.31 10*3/uL Normal 3.70-11.00 [facility] Comment on above: Order Comment: Speci men Type: BLOOD SPECIMENOrdering Facility: [facility] Address: [address] [place] [address] Performed By: #### 5 8410-2 ####[facility] LABIA [id number] [place] [address] Lipid 1996 panelon 3 Cholesterol [Mass/Vol] 103 mg/dL Normal <200 [facility] Comment on above: Order Comment: Speci men Type: BLOOD SPECIMENOrdering Facility: [facility] Address: [address] [place] [address] Result Comment: <200 mg/dL, Desirable 200-239 mg/dL, Borderline high>239 mg/dL, High Performed By: #### 2 4331-1 ####[facility] LABCLIA [id number] [facility] [id number] LABCLIA [id number] [place] [address] Cholesterol in HDL [Mass/Vol] 41 mg/dL Normal >39 [facility] Comment on above: Order Comment: Speci men Type: BLOOD SPECIMENOrdering Facility: [facility] Address: [address] [address] Result Comment: 40-5 9 mg/dL, Acceptable>59 mg/dL, High: Negative risk factor for coronary heart disease<40 mg/dL, Low: Positive risk factor for coronary heart disease Performed By: #### 2 4331-1 ####[facility] LABCLIA [id number] [address] LABCLIA [id number] [place] [address] Cholesterol in LDL [Mass/Vol] 33 mg/dL Normal <100 [facility] Comment on above: Order Comment: Speci men Type: BLOOD SPECIMENOrdering Facility: [facility] Address: [address] [place] [address] Result Comment: <100 mg/dL, Optimal 100-129 mg/dL, Near optimal/above optimal 130-159 mg/dL, Borderline high 160-189 mg/dL, High>189 mg/dL, Very highSecondary prevention optimal LDL Cholesterol levels are recommended to be < 70 mg/dL Performed By: #### 2 4331-1 ####[facility] LABCLIA [id number] [address] LABCLIA [id number] [place] [address] Cholesterol in LDL/Cholesterol in HDL [Mass ratio] 0.80 {ratio} Normal <2.54 [facility] Comment on above: Order Comment: Speci men Type: BLOOD SPECIMENOrdering Facility: [facility] Address: [address] [address] Result Comment: Donna hawkins:1. National Cholesterol Education Program ATP III Guideline At-A-Glance Quick Desk Reference: National Heart, Lung, and Blood [place]. National Institutes of Health. 2001: NIH Publication No. 01-3305.2. An International Atherosclerosis Society position paper: global recommendations for the management of dyslipidemia: executive summary, Atherosclerosis. 2014: 232(2):410-413. Performed By: #### 2 4331-1 ####[facility] LABCLIA [id number] [address] LABCLIA [id number] [place] [address] Cholesterol in VLDL [Mass/Vol] 29 mg/dL Normal <30 [facility] Comment on above: Order Comment: Speci men Type: BLOOD SPECIMENOrdering Facility: [facility] Address: [address] [place] [address] Performed By: #### 2 4331-1 ####[facility] LABCLIA [id number] [address] LABCLIA [id number] [place] [address] Cholesterol non HDL [Mass/Vol] 62 mg/dL Normal <130 [facility] Comment on above: Order Comment: Speci men Type: BLOOD SPECIMENOrdering Facility: [facility] Address: [address] [place] [address] Result Comment: <130 mg/dL, Optimal 130-159 mg/dL, Near optimal/above optimal 160-189 mg/dL, Borderline high 190-219 mg/dL, High>219 mg/dL, Very highSecondary prevention optimal non HDL Cholesterol levels are recommended to be <100 mg/dL Performed By: #### 2 4331-1 ####[facility] LABCLIA [id number] [address] LABCLIA [id number] [place] [address] Cholesterol.total/Cho lesterol in HDL [Mass ratio] 2.51 {ratio} Normal <5.10 [facility] Comment on above: Order Comment: Speci men Type: BLOOD SPECIMENOrdering Facility: [facility] Address: [address] [place] [address] Performed By: #### 2 4331-1 ####[facility] LABCLIA [id number] [address] LABCLIA [id number] [place] [address] FASTING TIME 12 hrs Normal [facility] Comment on above: Order Comment: Speci men Type: BLOOD SPECIMENOrdering Facility: [facility] Address: [address] [place] [address] Performed By: #### 2 4331-1 ####[facility] LABCLIA [id number] [address] LABCLIA [id number] [place] [address] Triglyceride [Mass/Vol] 145 mg/dL Normal <150 [facility] Comment on above: Order Comment: Speci men Type: BLOOD SPECIMENOrdering Facility: [facility] Address: [address] [place], [place] [id number] Result Comment: <150 mg/dL, Normal 150-199 mg/dL, Borderline high 200-499 mg/dL, High>499 mg/dL, Very high Performed By: #### 2 4331-1 ####[facility] LABCLIA [id number] [address] LABCLIA [id number] [place] [id number] CNOVon 11-04-2022 CNOV Normal [facility] CNPNon 11-04-2022 CNPN Normal [facility] HEMOGLOBIN A1C (POC)on 11-04 HbA1c (Bld) [Mass fraction] 7.5 % Abnormal 4.2 - 5.6 % [facility] CBC W Auto Differential pane l (Bld)on 06-10-2022 Basophils (Bld) [#/Vol] 0.07 10*3/uL <0.11 k/uL [facility] Basophils/100 WBC (Bld) 0.8 % [facility] Differential cell count method Nom (Bld) Auto [facility] Eosinophils (Bld) [#/Vol] 0.17 10*3/uL <0.46 k/uL [facility] Eosinophils/100 WBC (Bld) 1.8 % [facility] Erythrocyte distribution width (RBC) [Ratio] 16.9 % High 11.5 - 15.0 % [facility] Hematocrit (Bld) [Volume fraction] 34.3 % Low 36.0 - 46.0 % [facility] Hemoglobin (Bld) [Mass/Vol] 10.9 g/dL Low 11.5 - 15.5 g/dL [facility] Immature granulocytes (Bld) [#/Vol] <0.10 k/uL [facility] Immature granulocytes/100 WBC (Bld) 0.1 % [facility] Lymphocytes (Bld) [#/Vol] 3.88 10*3/uL 1.00 - 4.00 k/uL [facility] Lymphocytes/100 WBC (Bld) 42.2 % [facility] MCH (RBC) [Entitic mass] 27.7 pg 26.0 - 34.0 pg [facility] MCHC (RBC) [Mass/Vol] 31.8 g/dL 30.5 - 36.0 g/dL [facility] MCV (RBC) [Entitic vol] 87.1 fL 80.0 - 100.0 fL [facility] Monocytes (Bld) [#/Vol] 0.68 10*3/uL <0.87 k/uL [facility] Monocytes/100 WBC (Bld) 7.4 % [facility] Neutrophils (Bld) [#/Vol] 4.38 10*3/uL 1.45 - 7.50 k/uL [facility] Neutrophils/100 WBC (Bld) 47.7 % [facility] Nucleated RBC (Bld) [#/Vol] <0.01 k/uL [facility] Nucleated RBC/100 WBC (Bld) [Ratio] 0.0 /100 WBC [facility] Platelet mean volume (Bld) [Entitic vol] 9.4 fL 9.0 - 12.7 fL [facility] Platelets (Bld) [#/Vol] 194 10*3/uL 150 - 400 k/uL [facility] RBC (Bld) [#/Vol] 3.94 10*6/uL 3.90 - 5.2 0 m/uL [facility] WBC (Bld) [#/Vol] 9.19 10*3/uL 3.70 - 11. 00 k/uL [facility] Comprehensive metabolic 2000 panelon 06-10-2022 Albumin [Mass/Vol] 4.2 g/dL 3.9 - 4.9 g/dL [facility] ALP [Catalytic activity/Vol] 115 U/L 34 - 123 U/L [facility] ALT [Catalytic activity/Vol] 19 U/L 7 - 38 U/L [facility] Anion gap [Moles/Vol] 12 mmol/L 9 - 18 mmol/L [facility] AST [Catalytic activity/Vol] 33 U/L 13 - 35 U/L [facility] Bilirubin [Mass/Vol] 0.7 mg/dL 0.2 - 1 .3 mg/dL [facility] Calcium [Mass/Vol] 9.4 mg/dL 8.5 - 10. 2 mg/dL [facility] Chloride [Moles/Vol] 101 mmol/L 97 - 10 5 mmol/L [facility] CO2 [Moles/Vol] 29 mmol/L 22 - 30 mmol/L [facility] Creatinine [Mass/Vol] 0.73 mg/dL 0.58 - 0.96 mg/dL [facility] Estimated Glomerular Filtration Rate 86 mL/min/1.73m >=60 mL/min/1.73m [facility] Glucose [Mass/Vol] 132 mg/dL High 74 - 99 mg/dL [facility] Potassium [Moles/Vol] 3.7 mmol/L 3.7 - 5.1 mmol/L [facility] Protein [Mass/Vol] 7.2 g/dL 6.3 - 8.0 g/dL [facility] Sodium [Moles/Vol] 142 mmol/L 136 - 144 mmol/L [facility] Urea nitrogen [Mass/Vol] 15 mg/dL 7 - 21 mg/dL [facility] No Panel Informationon 10-07 [facility] ECG COMPLETEon 09-04-2021 Atrial Rate 81 BPM [facility] Calculated P Reva 36 degrees [facility] Calculated R Reva -19 degrees [facility] Calculated T Reva 81 degrees [facility] P-R Interval 166 ms [facility] QRS Duration 96 ms [facility] QT Interval 424 ms [facility] QTC Calculation (Bazett) 492 ms [facility] Ventricular Rate 81 BPM [facility] LYME DISEASE AB EIA W REFLEX on 07-16-2021 Lyme Total Antibody,EIA Negative Normal Negative [facility] Comment on above: Result Comment: Lyme Antibody Negative No laboratory evidence of infection with B. burgdorferi (Lyme disease). Negative results may occur in patients recently infected (greater than or equal to 14 days) with B. burgdorferi. If recent infection is suspected, repeat testing on a new sample collected in 7 to 14 days is recommended. Performed By: #### L YMA #### [facility] [address] [address] [address] George Gallegos GLYCOHEMOGLOBIN A1Con 2021 ADA RECOMMENDATION ADA THERAPEUTIC TARGET 6.0 - 7.0 ACTION SUGGESTED > 7.0 Normal [facility] Comment on above: Performed By: #### A 1C #### [facility] [address] [place] [address] Dr. George Gallegos Glucose [Mass/Vol] 157 mg/dL Normal [facility] Comment on above: Performed By: #### A 1C #### [facility] [address] [address] [address] George Gallegos HbA1c (Bld) [Mass fraction] 7.1 % Critically high <=6.0 [facility] Comment on above: Performed By: #### A 1C #### [facility] [address] [place] [address] Dr. George Gallegos SED RATE WESTERGRENon 2021 SED RATE 15 mm/hr Normal <=30 [facility] Comment on above: Performed By: #### S EDR #### [facility] [address] [address] [address] George Gallegos GLYCOHEMOGLOBIN A1Con 2020 ADA RECOMMENDATION ADA THERAPEUTIC TARGET 6.0 - 7.0 ACTION SUGGESTED > 7.0 Normal [facility] Comment on above: Performed By: #### A 1C #### [facility] [address] [address] Raoul Knapp Glucose [Mass/Vol] 151 mg/dL Normal [facility] Comment on above: Performed By: #### A 1C #### [facility] [address] [place], [place] [address] Raoul Knapp HbA1c (Bld) [Mass fraction] 6.9 % Critically high <=6.0 [facility] Comment on above: Performed By: #### A 1C #### [facility] [address] [place], [place] [address] Raoul Knapp MICROALBUMIN, RAND URon 06-1 mALB <1.3 Normal <=30.0 [facility] Comment on above: Performed By: #### M ALBR #### [facility] [address] [place], [place] [address] Raoul Knapp NM CARDIAC PERF STRESS/PHARM on 09-12-2020 [facility] Vital Signs Date Time Vital Sign Value Performing Clinician Alysa salazar 10-21-2023 13:53-0400 Body mass index (BMI) [Ratio] 24.84 kg/m2 Chalo Pritchard DO Work Phone: [facility] 10-21-2023 13:53-0400 Body weight 69.8 kg Chalo Pritchard DO Work Phone: [facility] 10-21-2023 13:53-0400 Diastolic blood pressure 60 mm[Hg] Chalo Pritchard DO Work Phone: [facility] 10-21-2023 13:53-0400 Heart rate 83 /min Chalo Pritchard DO Work Phone: [facility] 10-21-2023 13:53-0400 SaO2% (BldA) [Mass fraction] 99 % Chalo Pritchard DO Work Phone: [facility] 10-21-2023 13:53-0400 Systolic blood pressure 125 mm[Hg] Chalo Pritchard DO Work Phone: [facility] 10-11-2023 14:15-0400 Body height 167.6 cm Arpita Paris MD Work Phone: [facility] 10-11-2023 14:15-0400 Body mass index (BMI) [Ratio] 24.91 kg/m2 Arpita Paris MD Work Phone: [facility] 10-11-2023 14:15-0400 Body weight 70 kg Arpita Paris MD Work Phone: [facility] 10-11-2023 14:15-0400 Diastolic blood pressure 76 mm[Hg] Arpita Paris MD Work Phone: [facility] 10-11-2023 14:15-0400 Heart rate 81 /min Arpita Paris MD Work Phone: [facility] 10-11-2023 14:15-0400 Systolic blood pressure 120 mm[Hg] Arpita Paris MD Work Phone: [facility] 10-07-2023 12:24-0400 Body height 167.6 cm Afshan Deng MD Work Phone: [facility] 10-07-2023 12:24-0400 Body mass index (BMI) [Ratio] 24.69 kg/m2 Afshan Deng MD Work Phone: [facility] 10-07-2023 12:24-0400 Body weight 69.4 kg Afshan Deng MD Work Phone: [facility] 10-07-2023 12:24-0400 Diastolic blood pressure 80 mm[Hg] Afshan Deng MD Work Phone: [facility] 10-07-2023 12:24-0400 Heart rate 75 /min Afshan Deng MD Work Phone: [facility] 10-07-2023 12:24-0400 Systolic blood pressure 142 mm[Hg] Afshan Deng MD Work Phone: [facility] 07-27-2023 13:26-0400 Diastolic blood pressure 77 mm[Hg] Stanley Strange MD Work Phone: [facility] 07-27-2023 13:26-0400 Heart rate 86 /min Stanley Strange MD Work Phone: [facility] 07-27-2023 13:26-0400 Systolic blood pressure 114 mm[Hg] Stanley Strange MD Work Phone: [facility] 07-27-2023 13:21-0400 Body weight 70.35 kg Stanley Strange MD Work Phone: [facility] 07-27-2023 13:21-0400 SaO2% (BldA) [Mass fraction] 96 % Stanley Strange MD Work Phone: [facility] 07-15-2023 13:20-0400 Body height 167.6 cm Myesha Cheng PA-C Work Phone: [facility] 07-15-2023 13:20-0400 Body weight 70.8 kg Myesha Cheng PA-C Work Phone: [facility] 07-15-2023 13:20-0400 Diastolic blood pressure 78 mm[Hg] Myesha Cheng PA-C Work Phone: [facility] 07-15-2023 13:20-0400 Heart rate 80 /min Myesha Cheng PA-C Work Phone: [facility] 07-15-2023 13:20-0400 Systolic blood pressure 138 mm[Hg] Myesha Cheng PA-C Work Phone: [facility] 07-05-2023 15:13-0400 Body weight 70.31 kg Stanley Strange MD Work Phone: [facility] 07-05-2023 15:13-0400 Diastolic blood pressure 70 mm[Hg] Stanley Strange MD Work Phone: [facility] 07-05-2023 15:13-0400 Systolic blood pressure 108 mm[Hg] Stanley Strange MD Work Phone: [facility] 06-17-2023 11:18-0500 Body weight 76 kg Chalo Pritchard DO Work Phone: [facility] 06-15-2023 14:19-0500 Body height 167.6 cm Afshan Deng MD Work Phone: [facility] 06-15-2023 14:19-0500 Body weight 77.29 kg Afshan Deng MD Work Phone: [facility] 06-15-2023 14:19-0500 Diastolic blood pressure 82 mm[Hg] Asfhan Deng MD Work Phone: [facility] 06-15-2023 14:19-0500 Heart rate 93 /min Afshan Deng MD Work Phone: [facility] 06-15-2023 14:19-0500 Systolic blood pressure 125 mm[Hg] Afshan Deng MD Work Phone: [facility] 06-02-2023 10:10-0500 Body weight 79 kg Mikel Duber DOG LICENSE OFFICER SUPERVISOR.C CUT OUT MARKER Work Phone: [facility] 06-02-2023 10:10-0500 Diastolic blood pressure 62 mm[Hg] Mikel Duber DOG LICENSE OFFICER SUPERVISOR.PHARM TECH Work Phone: [facility] 06-02-2023 10:10-0500 Heart rate 96 /min Mikel Duber DOG LICENSE OFFICER SUPERVISOR.C CUT OUT MARKER Work Phone: [facility] 06-02-2023 10:10-0500 Systolic blood pressure 100 mm[Hg] Mikel Duber DOG LICENSE OFFICER SUPERVISOR.PHARM TECH Work Phone: [facility] 05-31-2023 16:55-0500 Diastolic blood pressure 74 mm[Hg] Stanley Strange MD Work Phone: [facility] 05-31-2023 16:55-0500 Systolic blood pressure 117 mm[Hg] Stanley Strange MD Work Phone: [facility] 05-31-2023 15:33-0500 Body height 167.6 cm Stanley Strange MD Work Phone: [facility] 05-31-2023 15:33-0500 Body weight 80.6 kg Stanley Strange MD Work Phone: [facility] 02-19-2024 15:33-0500 Heart rate 104 /min Stanley Strange MD Work Phone: [facility] 02-24-2023 14:03-0500 Diastolic blood pressure 56 mm[Hg] Dwight Ross APRN.PHARM TECH Work Phone: [facility] 02-24-2023 14:03-0500 Heart rate 93 /min Dwight Ross APRN.C CUT OUT MARKER Work Phone: [facility] 02-24-2023 14:03-0500 Systolic blood pressure 81 mm[Hg] Dwight Ross APRN.PHARM TECH Work Phone: [facility] 02-24-2023 13:59-0500 Body height 167.6 cm Dwight Ross APRN.C CUT OUT MARKER Work Phone: [facility] 02-24-2023 13:59-0500 Body weight 83.28 kg Dwight Ross APRN.C CUT OUT MARKER Work Phone: [facility] 02-24-2023 13:59-0500 SaO2% (BldA) [Mass fraction] 100 % Dwight Ross APRN.PHARM TECH Work Phone: [facility] 01-27-2023 10:33-0400 Body weight 84.82 kg Mikel Barahona APRN.C CUT OUT MARKER Work Phone: [facility] 01-27-2023 10:33-0400 Diastolic blood pressure 78 mm[Hg] Mikel Laraer DOG LICENSE OFFICER SUPERVISOR.PHARM TECH Work Phone: [facility] 01-27-2023 10:33-0400 Heart rate 76 /min Mikel Laraer DOG LICENSE OFFICER SUPERVISOR.C CUT OUT MARKER Work Phone: [facility] 01-27-2023 10:33-0400 Systolic blood pressure 142 mm[Hg] Mikel Duber DOG LICENSE OFFICER SUPERVISOR.PHARM TECH Work Phone: [facility] 12-17-2022 11:07-0400 Body weight 85.73 kg Chalo Pritchard DO Work Phone: [facility] 12-17-2022 11:07-0400 Diastolic blood pressure 85 mm[Hg] Chalo Pritchard DO Work Phone: [facility] 12-17-2022 11:07-0400 Heart rate 81 /min Chalo Pritchard DO Work Phone: [facility] 12-17-2022 11:07-0400 SaO2% (BldA) [Mass fraction] 95 % Chalo Pritchard DO Work Phone: [facility] 12-17-2022 11:07-0400 Systolic blood pressure 147 mm[Hg] Chalo Pritchard DO Work Phone: [facility] 11-04-2022 12:53-0400 Body weight 88.45 kg Mikel Duber DOG LICENSE OFFICER SUPERVISOR.C CUT OUT MARKER Work Phone: [facility] 11-04-2022 12:53-0400 Diastolic blood pressure 76 mm[Hg] Mikel Duber DOG LICENSE OFFICER SUPERVISOR.PHARM TECH Work Phone: [facility] 11-04-2022 12:53-0400 Heart rate 84 /min Mikel Duber DOG LICENSE OFFICER SUPERVISOR.C CUT OUT MARKER Work Phone: [facility] 11-04-2022 12:53-0400 Systolic blood pressure 124 mm[Hg] Mikel Duber DOG LICENSE OFFICER SUPERVISOR.PHARM TECH Work Phone: [facility] 08-07-2022 13:43-0400 Body weight 87.09 kg Mikel Duber DOG LICENSE OFFICER SUPERVISOR.C CUT OUT MARKER Work Phone: [facility] 08-07-2022 13:43-0400 Diastolic blood pressure 68 mm[Hg] Mikel Duber DOG LICENSE OFFICER SUPERVISOR.PHARM TECH Work Phone: [facility] 08-07-2022 13:43-0400 Systolic blood pressure 162 mm[Hg] Mikel Duber DOG LICENSE OFFICER SUPERVISOR.PHARM TECH Work Phone: [facility] 06-23-2022 13:53-0400 Body weight 89.09 kg Mikel Duber DOG LICENSE OFFICER SUPERVISOR.C CUT OUT MARKER Work Phone: [facility] 06-23-2022 13:53-0400 Diastolic blood pressure 72 mm[Hg] Mikel Duber DOG LICENSE OFFICER SUPERVISOR.PHARM TECH Work Phone: [facility] 06-23-2022 13:53-0400 Heart rate 74 /min Mikel Duber DOG LICENSE OFFICER SUPERVISOR.C CUT OUT MARKER Work Phone: [facility] 06-23-2022 13:53-0400 Systolic blood pressure 154 mm[Hg] Mikel Duber DOG LICENSE OFFICER SUPERVISOR.PHARM TECH Work Phone: [facility] 06-11-2022 10:50-0500 Body weight 87.54 kg Chalo Pritchard DO Work Phone: [facility] 06-11-2022 10:50-0500 Diastolic blood pressure 54 mm[Hg] Chalo Pritchard DO Work Phone: [facility] 06-11-2022 10:50-0500 Heart rate 75 /min Chalo Pritchard DO Work Phone: [facility] 06-11-2022 10:50-0500 SaO2% (BldA) [Mass fraction] 98 % Chalo Pritchard DO Work Phone: [facility] 06-11-2022 10:50-0500 Systolic blood pressure 115 mm[Hg] Chalo Pritchard DO Work Phone: [facility] 12-12-2021 10:54-0400 Diastolic blood pressure 85 mm[Hg] Janny Pierre DOG LICENSE OFFICER SUPERVISOR.PHARM TECH Work Phone: [facility] 12-12-2021 10:54-0400 Heart rate 71 /min Janny Pierre DOG LICENSE OFFICER SUPERVISOR.PHARM TECH Work Phone: [facility] 12-12-2021 10:54-0400 Systolic blood pressure 147 mm[Hg] Janny Pierre DOG LICENSE OFFICER SUPERVISOR.PHARM TECH Work Phone: [facility] 12-05-2021 10:53-0400 Body weight 90.27 kg Chalo Pritchard DO Work Phone: [facility] 12-05-2021 10:53-0400 Diastolic blood pressure 73 mm[Hg] Chalo Pritchard DO Work Phone: [facility] 12-05-2021 10:53-0400 Heart rate 77 /min Chalo Pritchard DO Work Phone: [facility] 12-05-2021 10:53-0400 SaO2% (BldA) [Mass fraction] 96 % Chalo Pritchard DO Work Phone: [facility] 12-05-2021 10:53-0400 Systolic blood pressure 127 mm[Hg] Chalo Pritchard DO Work Phone: [facility] 09-04-2021 10:51-0400 Body weight 87.54 kg Chalo Pritchard DO Work Phone: [facility] 09-04-2021 10:51-0400 Diastolic blood pressure 53 mm[Hg] Chalo Pritchard DO Work Phone: [facility] 09-04-2021 10:51-0400 Heart rate 74 /min Chalo Pritchard DO Work Phone: [facility] 09-04-2021 10:51-0400 SaO2% (BldA) [Mass fraction] 96 % Chalo Pritchard DO Work Phone: [facility] 09-04-2021 10:51-0400 Systolic blood pressure 120 mm[Hg] Chalo Pritchard DO Work Phone: [facility] Encounters Encounter Date Encounter Type Care Provider Facility Start: 11-24-2023 End: 11-24-2023 ambulatory [facility] Start: 11-18-2023 ambulatory AURE LITTLE [facility] Start: 11-10-2023 Refill Dwight barron APRN.PHARM TECH Work Phone: Cardiology Comment on above: Refill Request Start: 11-06-2023 Refill Chalo Pritchard DO Work Phone: Cardiology Comment on above: Refill Request Start: 11-01-2023 End: 11-01-2023 ambulatory AURE LITTLE Not Available Start: 10-25-2023 End: 10-25-2023 ambulatory AURE LITTLE [facility] Start: 10-21-2023 End: 10-21-2023 Patient encounter procedure Chalo Pritchard Work Phone: Cardiology Comment on above: HFrEF (heart failure with reduced ejection fraction) (HCC) (Primary Dx); Cardiomyopathy, unspecified type (HCC); 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; Essential hypertension; Mixed hyperlipidemia; Hyperlipidemia associated with type 2 diabetes mellitus (HCC) (HCC); Nonrheumatic mitral valve regurgitation; Cardiac resynchronization therapy defibrillator (BERRY GROWER-D) in place; H/O aorto-femoral bypass; Moderate obstructive sleep apnea Start: 10-21-2023 End: 10-21-2023 ambulatory AURE JOANN TOYAHMARLENAZ Facility:[facility] Start: 10-18-2023 End: 10-18-2023 ambulatory AURE CRISTOBAL Not Available Start: 10-11-2023 End: 10-11-2023 ambulatory AURE JOANN KHADIJAHZ Facility:[facility] Start: 10-11-2023 End: 10-11-2023 Patient encounter procedure Arpita Paris MD Work Phone: Kidney Medicine Comment on above: 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) (Primary Dx); Screening for genitourinary condition; Essential hypertension; Vitamin D deficiency; Chronic systolic CHF (congestive heart failure) (HCC) Start: 10-11-2023 Telephone encounter Mikel Spann APRN.CNP Work Phone: Endocrinology Comment on above: Forms ([employer] - OV note) Patient Update Start: 10-07-2023 End: 10-07-2023 Patient encounter procedure Afshan Deng MD Work Phone: Cardiology Comment on above: Pacemaker reprogramm ing/check (Primary Dx); 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; Mixed hyperlipidemia; LBBB (left bundle branch block); Chronic systolic congestive heart failure (HCC) Start: 10-07-2023 End: 10-07-2023 ambulatory AURE JOANN TOYAHMARLENAZ Facility:[facility] Start: 10-07-2023 End: 10-07-2023 ambulatory AURE JOANN KHADIJAHZ Facility:[facility] Start: 10-07-2023 End: 10-07-2023 Patient encounter procedure Echo 2 [facility] Rej Work Phone: Cardiology Comment on above: Chronic systolic hea rt failure (HCC) Pacemaker reprogramm ing/check Start: 09-23-2023 Telephone encounter Mikel Spann APRN.CNP Work Phone: Endocrinology Comment on above: Patient Assistance Start: 09-22-2023 End: 09-22-2023 ambulatory AURE DAVID CRISTOBAL Facility:[facility] Start: 09-21-2023 ambulatory Mikel Barahona APRN.PHARM TECH Work Phone: Endocrinology Comment on above: Ozempic perscription Start: 09-10-2023 ambulatory Mikel Barahona APRN.PHARM TECH Work Phone: Endocrinology Comment on above: Ozempic Start: 08-11-2023 End: 08-11-2023 ambulatory AURE JOANN LITTLE Facility:[facility] Start: 08-03-2023 End: 08-03-2023 ambulatory Charmaine Lary ISAACS.PHARM TECH Work Phone: Neurology Comment on above: Obstructive sleep ap shree syndrome (Primary Dx); Essential hypertension; Mixed hyperlipidemia; Type 2 diabetes mellitus with diabetic peripheral angiopathy without gangrene, with long-term current use of insulin (HCC); 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; Cardiomyopathy, unspecified type (HCC); Systolic heart failure, unspecified HF chronicity (HCC); Class 1 obesity due to excess calories with serious comorbidity and body mass index (BMI) of 32.0 to 32.9 in adult; Intermittent claudication of both lower extremities due to atherosclerosis (HCC); Acute heart failure with reduced ejection fraction and diastolic dysfunction (HCC); Aortoiliac occlusive disease (HCC); Chronic systolic congestive heart failure (HCC); HFrEF (heart failure with reduced ejection fraction) (HCC); LBBB (left bundle branch block); Status post angioplasty with stent Start: 08-03-2023 End: 08-03-2023 Telemedicine consultation with patient Charmaine Lary LATHAMPHARM TECH Work Phone: Neurology Start: 07-27-2023 End: 07-27-2023 [facility] Start: 07-27-2023 End: 07-27-2023 Office outpatient visit 25 minutes Stanley Strange MD Work Phone: Cardiology Comment on above: Chronic systolic con gestive heart failure (HCC) (Primary Dx); LBBB (left bundle branch block); DAV (acute kidney injury) (HCC) Start: 07-26-2023 End: 07-26-2023 [facility] Start: 07-15-2023 Follow-up encounter Afshan Deng MD Work Phone: [facility] Start: 07-15-2023 End: 07-15-2023 Patient encounter procedure Afshan Deng MD Work Phone: [facility] Department Comment on above: Cardiac resynchroniz ation therapy defibrillator (BERRY GROWER-D) in place (Primary Dx); Chronic systolic heart failure (HCC); LBBB (left bundle branch block) Start: 07-15-2023 End: 07-15-2023 [facility] Start: 07-15-2023 End: 07-15-2023 ambulatory [facility]URE [facility]ANN [facility] Facility:[facility] Start: 07-05-2023 End: 07-05-2023 ambulatory AURE [facility] Facility:[facility] Start: 07-05-2023 End: 07-05-2023 Office outpatient visit 15 minutes Stanley Strange MD Work Phone: Cardiology Comment on above: Chronic systolic hea rt failure (HCC) (Primary Dx); LBBB (left bundle branch block); DAV (acute kidney injury) (HCC) Start: 07-05-2023 End: 07-05-2023 [facility] Start: 07-01-2023 Telephone encounter Myesha flores PA-C Work Phone: [facility] Provider Adult Comment on above: [facility] Follow Up Start: 06-30-2023 End: 07-01-2023 ambulatory AURE LITTLE Facility:[facility] Start: 06-28-2023 End: 06-28-2023 ambulatory AURE Kulkarni [facility] Start: 06-24-2023 End: 06-24-2023 Patient encounter procedure [facility] Exercise 1 [facility] - [facility] Start: 06-24-2023 End: 06-24-2023 ambulatory AURE [facility] Start: 06-23-2023 End: 06-23-2023 Patient encounter procedure [facility] Card[facility] Re[facility] Therapist 1 [facility] Start: 06-23-2023 End: 06-23-2023 ambulatory [facility] Start: 06-22-2023 Telephone encounter Stanley navas MD Work Phone: Cardiology Start: 06-22-2023 End: 06-22-2023 [facility] Start: 06-21-2023 End: 06-21-2023 Patient encounter procedure [facility] Card[facility] Therapist 1 [facility] Start: 06-21-2023 End: 06-21-2023 ambulatory AURE [facility] Start: 06-17-2023 Telephone encounter Davin sarabia [facility] Home Delivery Comment on above: Medication Problem ( Jardiance ) Start: 06-17-2023 End: 06-17-2023 ambulatory AURE Kulkarni [facility] Start: 06-17-2023 End: 06-17-2023 [facility] Start: 06-17-2023 End: 06-17-2023 Patient encounter procedure Chalo Pritchard DO Work Phone: Cardiology Comment on above: Shortness of breath (Primary Dx); Fatigue, unspecified type; HFrEF (heart failure with reduced ejection fraction) (HCC); Cardiomyopathy, unspecified type (HCC); 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; Essential hypertension; Mixed hyperlipidemia; Hyperlipidemia associated with type 2 diabetes mellitus (HCC) (HCC); Nonrheumatic mitral valve regurgitation; Moderate obstructive sleep apnea; H/O aorto-femoral bypass; Class 1 obesity due to excess calories with serious comorbidity and body mass index (BMI) of 30.0 to 30.9 in adult Start: 06-16-2023 End: 06-16-2023 ambulatory AURE [facility] Start: 06-16-2023 End: 06-16-2023 Patient encounter procedure [facility] Card[facility] Re[facility] Therapist 1 [facility] Start: 06-15-2023 End: 06-15-2023 Patient encounter procedure Afshan Deng MD Work Phone: Cardiology Comment on above: HFrEF (heart failure with reduced ejection fraction) ([facility]) (Primary Dx); Ischemic cardiomyopathy; LBBB (left bundle branch block) Start: 06-15-2023 End: 06-15-2023 [facility] Start: 06-14-2023 End: 06-14-2023 [facility] Start: 06-14-2023 End: 06-14-2023 ambulatory AURE [facility] Start: 06-14-2023 End: 07-12-2023 ambulatory [facility] Start: 06-10-2023 Telephone encounter Stanley navas MD Work Phone: Cardiology Start: 06-10-2023 End: 06-10-2023 Patient encounter procedure [facility] Card[facility] Re[facility] Therapist 1 [facility] Start: 06-10-2023 End: 06-10-2023 ambulatory AURE [facility] Start: 06-09-2023 End: 06-09-2023 Patient encounter procedure [facility] Card[facility] Re[facility] Therapist 1 [facility] Start: 06-09-2023 End: 06-09-2023 [facility] Start: 06-07-2023 End: 06-07-2023 ambulatory AURE Kulkarni [facility] Start: 06-04-2023 ambulatory Stanley Strange MD Work Phone: Cardiology Comment on above: Wednesday report Start: 06-02-2023 End: 06-11-2023 ambulatory AURE [facility] Facility:[facility] Start: 06-02-2023 End: 06-02-2023 Patient encounter procedure Mikel Christian LATHAMPHARM TECH Work Phone: Endocrinology Comment on above: Type 2 diabetes chela itus with other circulatory complication, with long-term current use of insulin (HCC) (Primary Dx); Obstructive sleep apnea; Essential hypertension; Hyperlipidemia associated with type 2 diabetes mellitus (HCC) (HCC) Start: 06-02-2023 End: 06-11-2023 ambulatory [facility] Start: 06-01-2023 Telephone encounter Stanley navas MD Work Phone: Cardiology Start: 05-31-2023 End: 05-31-2023 ambulatory AURE DAVID [facility] Facility:[facility] Start: 05-31-2023 End: 05-31-2023 Office outpatient new 60 minutes Stanley Strange MD Work Phone: Cardiology Comment on above: Acute on chronic sys tolic congestive heart failure (HCC) (Primary Dx); 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; LBBB (left bundle branch block); Aortoiliac occlusive disease (HCC); Nonsustained ventricular tachycardia (HCC) Start: 05-31-2023 End: 06-11-2023 ambulatory [facility] Start: 05-28-2023 Telephone encounter Stanley navas MD Work Phone: Cardiology Start: 05-27-2023 End: 06-11-2023 ambulatory [facility] Start: 05-25-2023 End: 06-11-2023 ambulatory Chalo Pritchard DO Work Phone: Cardiology Comment on above: Echocardiogram Start: 05-25-2023 Clinisync Result Encounter Gen gregory External Data Provider [facility] External Department Unsolicited Start: 05-25-2023 Clinisync Result Encounter Gen gregory External Data Provider [facility] External Department Unsolicited Start: 05-25-2023 End: 05-25-2023 Patient encounter procedure [employer] [facility] Aniya Work Phone: Cardiology Comment on above: HFrEF (heart failure with reduced ejection fraction) ([facility]); Cardiomyopathy, unspecified type (HCC); Fatigue, unspecified type; Shortness of breath Start: 05-24-2023 End: 06-11-2023 ambulatory [facility] Start: 05-20-2023 End: 05-20-2023 ambulatory Chalo Pritchard DO Work Phone: Cardiology Comment on above: Mylene Micaela Start: 05-19-2023 End: 05-19-2023 Patient encounter procedure [facility] Cardiac Re[facility] Therapist 1 [facility] Card[facility] Start: 05-19-2023 End: 05-19-2023 ambulatory [facility] Start: 05-17-2023 End: 05-17-2023 Patient encounter procedure [facility] Card[facility] Re[facility] Therapist 1 [facility] Start: 05-17-2023 End: 05-17-2023 ambulatory [facility] Start: 05-16-2023 Refill Dwight barron APRN.CNP Work Phone: Cardiology Comment on above: Refill Request Start: 05-13-2023 End: 05-13-2023 Patient encounter procedure [facility] Card[facility] Re[facility] Therapist 1 [facility] Start: 05-13-2023 End: 05-13-2023 ambulatory [facility] Start: 05-12-2023 End: 05-12-2023 ambulatory [facility] Start: 05-10-2023 End: 05-10-2023 Patient encounter procedure Pm Cardiac Rehab Therapist 1 [facility] - [facility] Start: 05-10-2023 End: 05-10-2023 ambulatory AURE Shad [facility] Start: 05-06-2023 End: 05-06-2023 Patient encounter procedure Pm Cardiac Rehab Therapist 1 [facility] Start: 05-06-2023 End: 05-06-2023 ambulatory AURE J [facility] Start: 05-05-2023 End: 05-05-2023 Patient encounter procedure Pm Cardiac Rehab Therapist 1 [facility] Start: 05-05-2023 End: 05-05-2023 ambulatory AURE Kulkarni [facility] Start: 05-03-2023 End: 05-03-2023 ambulatory AURE Kulkarni [facility] Start: 04-29-2023 End: 04-29-2023 ambulatory AURE Kulkarni [facility] Start: 04-28-2023 End: 04-28-2023 Patient encounter procedure Pm Cardiac Rehab Therapist 1 [facility] Start: 04-28-2023 End: 04-28-2023 ambulatory AURE Shad [facility] Start: 04-26-2023 End: 04-26-2023 Patient encounter procedure Pm Cardiac Rehab Therapist 1 [facility] Start: 04-26-2023 End: 04-26-2023 ambulatory AURE Shad [facility] Start: 04-22-2023 End: 04-22-2023 Patient encounter procedure Pm Cardiac Rehab Therapist 1 [facility] Start: 04-22-2023 End: 04-22-2023 ambulatory AURE Shad [facility] Start: 04-21-2023 End: 04-21-2023 Patient encounter procedure Pm Cardiac Rehab Therapist 1 [facility] Start: 04-21-2023 End: 04-21-2023 [facility] Start: 04-19-2023 End: 04-19-2023 Patient encounter procedure Pm Cardiac Rehab Therapist 1 [facility] Start: 04-19-2023 End: 04-19-2023 ambulatory AURE J [facility] Start: 04-16-2023 End: 04-16-2023 [facility] Start: 04-14-2023 End: 04-14-2023 Patient encounter procedure Pm Cardiac Rehab Therapist 1 [facility] Start: 04-14-2023 End: 05-13-2023 ambulatory UARE J [facility] Start: 04-08-2023 End: 04-08-2023 Patient encounter procedure [facility] Cardiac Rehab Therapist 1 [facility] Cardiac Rehab Comment on above: Arrived Start: 04-08-2023 End: 04-08-2023 ambulatory AURE [facility] Start: 04-07-2023 End: 04-07-2023 ambulatory AURE J [facility] Start: 04-07-2023 End: 04-07-2023 [facility] Start: 04-06-2023 End: 04-06-2023 ambulatory AURE CRISTOBAL Not Available Start: 03-31-2023 End: 04-12-2023 ambulatory AURE J [facility] Start: 03-29-2023 End: 03-29-2023 ambulatory AURE J [facility] Start: 03-22-2023 End: 03-22-2023 [facility] Start: 03-19-2023 Telephone encounter Mikel Spann APRN.PHARM TECH Work Phone: [facility] Comment on above: Forms (Elliot ramachandran's Written Order) Start: 03-16-2023 ambulatory Mikel Duber DOG LICENSE OFFICER SUPERVISOR.PHARM TECH Work Phone: Endocrinology Comment on above: CPAP Start: 03-16-2023 Telephone encounter Mikel Du david DOG LICENSE OFFICER SUPERVISOR.PHARM TECH Work Phone: Endocrinology Comment on above: OZEMPIC RECEIVED Start: 03-11-2023 Telephone encounter Mikel Du david DOG LICENSE OFFICER SUPERVISOR.PHARM TECH Work Phone: Endocrinology Comment on above: Forms (Diabetic supp lies - Yasmany) Patient Assistance ( Omid Nordisk- Ozempic 2mg (increase for new rx for 2023) ) Start: 03-01-2023 End: 03-01-2023 [facility] Start: 02-25-2023 ambulatory Dwight barron DOG LICENSE OFFICER SUPERVISOR.PHARM TECH Work Phone: Cardiology Comment on above: [facility] Start: 02-25-2023 Telephone encounter Mikel Manolo david DOG LICENSE OFFICER SUPERVISOR.PHARM TECH Work Phone: Endocrinology Comment on above: Forms (Yasmany - W ritten Order for diabetic testing supplies) Start: 02-24-2023 End: 02-25-2023 Emergency department patient visit AURE LITTLE [facility] Start: 02-24-2023 End: 02-24-2023 ambulatory Dwight Ross APRN.PHARM TECH Work Phone: [facility] Start: 02-24-2023 End: 02-24-2023 Patient encounter procedure Dwight Ross DOG LICENSE OFFICER SUPERVISOR.PHARM TECH Work Phone: Cardiology Comment on above: Today's appointment Systolic heart failu re, unspecified HF chronicity (HCC) (Primary Dx); Unresponsive; Hypotension, unspecified hypotension type; Sinus bradycardia Start: 02-17-2023 End: 02-19-2023 Evaluation and management of inpatient [facility] Facility:[facility] Start: 02-16-2023 End: 02-17-2023 Evaluation and management of inpatient [facility]URE JOANN [facility] Facility:[facility] Start: 02-05-2023 ambulatory Mikel Duber DOG LICENSE OFFICER SUPERVISOR.PHARM TECH Work Phone: Endocrinology Comment on above: Diabetic testing Start: 01-27-2023 Telephone encounter Mikel Spann APRN.PHARM TECH Work Phone: Endocrinology Comment on above: Patient Assistance ( Omid Nordisk- Ozempic 2mg (medication increase)) Start: 01-27-2023 End: 01-27-2023 ambulatory AURE JOANN TOYAHMARLENAZ Facility:[facility] Start: 01-27-2023 End: 01-27-2023 Patient encounter procedure Mikel Barahona APRN.PHARM TECH Work Phone: Endocrinology Comment on above: Type 2 diabetes chela itus with other circulatory complication, with long-term current use of insulin (HCC) (Primary Dx) Start: 12-17-2022 End: 12-17-2022 ambulatory AURE JOANN TOYAHERBERTH Facility:[facility] Start: 12-17-2022 End: 12-17-2022 Patient encounter procedure Chalo Pritchard DO Work Phone: Cardiology Comment on above: Claudication (HCC) ( Primary Dx); H/O aorto-femoral bypass; Nonsustained ventricular tachycardia (HCC); Systolic heart failure, unspecified HF chronicity (HCC); 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; Essential hypertension; Mixed hyperlipidemia; Hyperlipidemia associated with type 2 diabetes mellitus (HCC); Moderate obstructive sleep apnea; Hypomagnesemia; Class 1 obesity due to excess calories with serious comorbidity and body mass index (BMI) of 30.0 to 30.9 in adult Start: 12-15-2022 End: 12-15-2022 ambulatory AURE JOANN TOYACiaranHERBERTH Facility:[facility] Start: 11-25-2022 ambulatory Mikel Barahona APRN.PHARM TECH Work Phone: Endocrinology Comment on above: Ozempic Start: 11-04-2022 Telephone encounter Mikel Spann APRN.PHARM TECH Work Phone: Home Respiratory Therapy Comment on above: PAP Therapy Follow U p Start: 11-04-2022 End: 11-04-2022 ambulatory AURE JOANN TOYAHMARLENAZ Facility:[facility] Start: 11-04-2022 End: 11-04-2022 Patient encounter procedure Mikel Barahona APRN.CNP Work Phone: Endocrinology Comment on above: Type 2 diabetes chlea itus with diabetic peripheral angiopathy without gangrene, with long-term current use of insulin (HCC) (Primary Dx); Cardiomyopathy, unspecified type (HCC); Essential hypertension; Class 1 obesity due to excess calories with serious comorbidity and body mass index (BMI) of 32.0 to 32.9 in adult; Obstructive sleep apnea Start: 10-20-2022 ambulatory iMkel Barahona APRN.PHARM TECH Work Phone: Endocrinology Comment on above: Sugar control proble ms Start: 10-07-2022 Refill Dwight barron DOG LICENSE OFFICER SUPERVISOR.PHARM TECH Work Phone: Cardiology Comment on above: Refill Request Start: 08-19-2022 Telephone encounter Mikel Spann APRN.PHARM TECH Work Phone: Endocrinology Comment on above: Patient Assistance ( Omid Nordisk- Ozempic) Start: 08-07-2022 End: 08-07-2022 Patient encounter procedure Mikel Barahona APRN.PHARM TECH Work Phone: Endocrinology Comment on above: Type 2 diabetes chela itus with diabetic peripheral angiopathy without gangrene, with long-term current use of insulin (HCC) (Primary Dx); Class 1 obesity due to excess calories with serious comorbidity and body mass index (BMI) of 32.0 to 32.9 in adult; Hyperlipidemia associated with type 2 diabetes mellitus (HCC) Start: 07-21-2022 ambulatory Mikel Barahona APRN.PHARM TECH Work Phone: Endocrinology Comment on above: Arleth Elias / Cannot afford Trulicity Start: 06-23-2022 End: 06-23-2022 Patient encounter procedure Mikel Barahona APRN.PHARM TECH Work Phone: Endocrinology Comment on above: Overactive bladder ( Primary Dx); Hyperlipidemia associated with type 2 diabetes mellitus (HCC); Class 1 obesity due to excess calories with serious comorbidity and body mass index (BMI) of 32.0 to 32.9 in adult; Type 2 diabetes mellitus with diabetic peripheral angiopathy without gangrene, with long-term current use of insulin (HCC) Start: 06-11-2022 End: 06-11-2022 Patient encounter procedure Chalo Pritchard DO Work Phone: Cardiology Comment on above: Dyspnea, unspecified type (Primary Dx); Claudication (HCC); H/O aorto-femoral bypass; Nonsustained ventricular tachycardia (HCC); Systolic heart failure, unspecified HF chronicity (HCC); 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; Essential hypertension; Mixed hyperlipidemia; Hyperlipidemia associated with type 2 diabetes mellitus (HCC); Moderate obstructive sleep apnea; Hypomagnesemia; Class 1 obesity due to excess calories with serious comorbidity and body mass index (BMI) of 32.0 to 32.9 in adult Start: 06-10-2022 Orders Only Aure pope PHARM TECH Work Phone: Hematology/Oncology Comment on above: Other diabetic neuro logical complication associated with type 2 diabetes mellitus (HCC) (Primary Dx); Other fatigue Start: 02-08-2022 Refill Chalo Pritchard DO Work Phone: Cardiology Comment on above: Refill Request Start: 12-12-2021 End: 12-12-2021 Patient encounter procedure Janny Jya APRN.CNP Work Phone: Vascular Surgery Comment on above: Aortoiliac occlusive disease (HCC) (Primary Dx) Start: 12-05-2021 End: 12-05-2021 Patient encounter procedure Chalo Pritchard DO Work Phone: Cardiology Comment on above: Claudication (HCC) ( Primary Dx); H/O aorto-femoral bypass; Nonsustained ventricular tachycardia (HCC); Systolic heart failure, unspecified HF chronicity (HCC); 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; Essential hypertension; Mixed hyperlipidemia; Hyperlipidemia associated with type 2 diabetes mellitus (HCC); Moderate obstructive sleep apnea; Class 1 obesity due to excess calories with serious comorbidity and body mass index (BMI) of 32.0 to 32.9 in adult Start: 10-14-2021 [facility] Work Phone: Neurology Start: 10-09-2021 Telephone encounter Bj Jim MD Work Phone: Vascular Surgery Comment on above: Appointment Cancelle d Start: 10-07-2021 End: 10-07-2021 Subsequent hospital visit by physician Scan [facility] Rej Work Phone: Nuclear Medicine Comment on above: Chest discomfort [R0 7.89] Start: 10-07-2021 End: 10-07-2021 Subsequent hospital visit by physician Injection Nm [facility] Rej Work Phone: Nuclear Medicine Comment on above: Chest discomfort [R0 7.89] Start: 2021 Telephone encounter Bj Jim MD Work Phone: Vascular Surgery Comment on above: Appointment Start: 09-25-2021 End: 09-25-2021 ambulatory Charmaine Barth APRN.PHARM TECH Work Phone: Neurology Comment on above: Obstructive sleep ap shree (Primary Dx); Obstructive sleep apnea syndrome; Essential hypertension; Mixed hyperlipidemia; Systolic heart failure, unspecified HF chronicity (HCC); Cardiomyopathy, unspecified type (HCC); 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; Type 2 diabetes mellitus with diabetic peripheral angiopathy without gangrene, with long-term current use of insulin (HCC); Class 1 obesity due to excess calories with serious comorbidity and body mass index (BMI) of 32.0 to 32.9 in adult Start: 09-25-2021 End: 09-25-2021 Telemedicine consultation with patient Charmaine Barth APRN.PHARM TECH Work Phone: [place] Start: 09-04-2021 End: 09-04-2021 Patient encounter procedure Chalo Pritchard DO Work Phone: Cardiology Comment on above: Chest discomfort (Pr imary Dx); Claudication (HCC); History of axillobifemoral bypass graft; Nonsustained ventricular tachycardia (HCC); Systolic heart failure, unspecified HF chronicity (HCC); 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; Essential hypertension; Mixed hyperlipidemia; Hyperlipidemia associated with type 2 diabetes mellitus (HCC); Obstructive sleep apnea syndrome; Class 1 obesity due to excess calories with serious comorbidity and body mass index (BMI) of 31.0 to 31.9 in adult Start: 07-20-2021 Refill Chalo Pritchard DO Work Phone: Cardiology Comment on above: Refill Request Start: 07-15-2021 End: 07-16-2021 ambulatory GUALBERTO LITTLE Facility:[facility] Start: 09-30-2020 End: 10-01-2020 ambulatory GUALBERTO LITTLE Facility:[facility] Start: 09-19-2020 End: 09-19-2020 ambulatory PHARM TECH AURE LITTLE Facility:[facility] Start: 09-12-2020 End: 09-12-2020 Patient encounter status Scan Rej Work Phone: [facility] Start: 09-12-2020 End: 09-12-2020 Subsequent hospital visit by physician Danitza Guy [facility] Rej Work Phone: Nuclear Medicine Comment on above: Encounter for screen ing for cardiovascular disorders [Z13.6] Start: 10-26-2019 Patient encounter status [address] Start: 06-07-2019 Patient encounter status Andreas Pritchard DO Work Phone: [facility] Work Phone: Start: 12-07-2016 End: 12-08-2016 Ambulatory DEFAULT PHYSICIAN Facility:[facility] Procedures Date Procedure Procedure Detail Performing Clinician Start: 10-11-2023 Urnls dip stick/tablet rgnt auto w/o microscopy Arpita Paris MD Work Phone: Start: 10-07-2023 Ecg routine ecg w/least 12 lds i&r only [facility] Provider Start: 10-07-2023 Prgrmg eval implantable in person multi lead dfb [facility] [place] Provider Start: 10-07-2023 Echo tthrc r-t 2d w/wom-mode compl spec&colr d Stanley Strange MD Work Phone: Start: 10-07-2023 Echocardiography AURE MARTINEZMARLENAHoney Start: 07-15-2023 Ecg routine ecg w/least 12 lds i&r only [facility] Provider Start: 07-15-2023 ICD CLINIC CHECK Afshan Deng MD Work Phone: Start: 06-02-2023 Hemoglobin A1c/Hemoglobin.total in Blood Mikel Duber DOG LICENSE OFFICER SUPERVISOR.PHARM TECH Work Phone: Start: 05-31-2023 Ecg routine ecg w/least 12 lds i&r only [facility] Provider Start: 05-25-2023 Echo tthrc r-t 2d w/wom-mode compl spec&colr d Maura Moraesk DOG LICENSE OFFICER SUPERVISOR.PHARM TECH Work Phone: Start: 05-25-2023 Echocardiography AURE CRISTOBAL Start: 05-25-2023 [facility] CBC PNL BLD AUTO Generic External Da ta Provider Start: 04-14-2023 End: 04-14-2023 Gluc bld gluc mntr dev cleared fda spec home use Aure Kulkarni Toyaciaranherberth DOG LICENSE OFFICER SUPERVISOR-PHARM TECH Work Phone: Start: 04-08-2023 Gluc bld gluc mntr dev cleared fda spec home use Aure J Toyaciaranherberth DOG LICENSE OFFICER SUPERVISOR-[facility] Work Phone: Start: 01-27-2023 Hemoglobin A1c/Hemoglobin.total in Blood Mikel Duber DOG LICENSE OFFICER SUPERVISOR.PHARM TECH Work Phone: Start: 12-17-2022 Ecg routine ecg w/least 12 lds i&r only [facility] Provider Start: 11-04-2022 Hemoglobin A1c/Hemoglobin.total in Blood Mikel Duber DOG LICENSE OFFICER SUPERVISOR.PHARM TECH Work Phone: Start: 10-07-2021 Myocardial spect multiple studies Chalo Pritchard DO Work Phone: Start: 09-04-2021 Ecg routine ecg w/least 12 lds w/i&r Chalo Pritchard DO Work Phone: Start: 09-18-2020 Adult depression screening assessment Chalo Pritchard DO Work Phone: Start: 09-12-2020 Myocardial spect multiple studies Chalo Pritchard DO Work Phone: Start: 07-08-2017 Mammography Chalo Pritchard DO Work Phone: Start: 03-22-2017 Colonoscopy Chalo Pritchard DO Work Phone: Plan of Treatment Date Care Activity Detail Author Start: 10-20-2024 BP Controlled (<130/80) BP Controlled (<130/80) [facility] Start: 10-10-2024 BP Controlled (<130/80) BP Controlled (<130/80) [facility] Start: 10-10-2024 Hepatitis B screening Urine Albumin:Creatinine Ratio [facility] Start: 07-26-2024 BP Controlled (<130/80) BP Controlled (<130/80) [facility] Start: 07-26-2024 Hepatitis B screening Urine Albumin:Creatinine Ratio [facility] Start: 07-04-2024 BP Controlled (<130/80) BP Controlled (<130/80) [facility] Start: 06-25-2024 Glaucoma screening Diabetes: Retinopathy Screening [facility] Start: 06-13-2024 Adult BMI Screening Adult BMI Screening [facility] Start: 06-02-2024 BP Controlled (<130/80) BP Controlled (<130/80) [facility] Start: 05-31-2024 BP Controlled (<130/80) BP Controlled (<130/80) [facility] Start: 04-26-2024 End: 04-26-2024 Patient encounter procedure 04/26/2024 2:30 PM EST Office Visit Cardiology [address] [facility] [place], [place] [id number] Chalo Pritchard DO [address] [facility] [place] [id number] Return in about 6 months (around 04/28/2024) Cardiology Comment on above: Return in about 6 months (around 04/28/19) Start: 04-22-2024 End: 07-22-2024 Basic metabolic 2000 panel - Serum or Plasma BASIC METABOLIC PANEL Lab Routine Essential hypertension Expected: 04/22/2024 (Approximate), Expires: 07/22/2024 [facility] Work Phone: Comment on above: Expected: 04/22/2024 (Approximate), Expi res: 07/22/2024 Start: 04-22-2024 End: 07-22-2024 CBC panel - Blood by Automated count COMPLETE BLOOD COUNT Lab Routine HFrEF (heart failure with reduced ejection fraction) ([facility]) Expected: 04/22/2024 (Approximate), Expires: 07/22/2024 [facility] Comment on above: Expected: 04/22/2024 (Approximate), Expi res: 07/22/2024 Start: 04-22-2024 End: 07-22-2024 Natriuretic peptide.B prohormone N-Terminal [Mass/volume] in Serum or Plasma NT PRO BNP Lab Routine HFrEF (heart failure with reduced ejection fraction) ([facility]) Cardiomyopathy, unspecified type ([facility]) Expected: 04/22/2024 (Approximate), Expires: 07/22/2024 [facility] Comment on above: Expected: 04/22/2024 (Approximate), Expi res: 07/22/2024 Start: 03-22-2024 BP Controlled (<130/80) BP Controlled (<130/80) [facility] Start: 02-25-2024 BP Controlled (<130/80) BP Controlled (<130/80) [facility] Start: 12-28-2023 End: 12-28-2023 Patient encounter procedure Cardiology Comment on above: 4-6 months follow up Start: 12-16-2023 Hepatitis B surface antibody level LDL CHOLESTEROL [facility] Start: 12-12-2023 Influenza [facility] Start: 12-06-2023 End: 12-06-2023 Patient encounter procedure 12/06/2023 12:50 PM EDT Office Visit Endocrinology [address] [place] [address] Mikel Barahona, SHITAL.PHARM TECH [address] [place] [address] 6 month follow up Endocrinology Comment on above: 6 month follow up Start: 12-01-2023 Hemoglobin A1c measurement HbA1C [facility] Start: 11-05-2023 3 comp foot exam completed DIABETIC FOOT EXAM [facility] Start: 11-05-2023 BP CONTROLLED (<130/80) BP CONTROLLED (<130/80) [facility] in Start: 11-05-2023 Diabetic foot examination Diabetic Foot Exam [facility] Start: 10-21-2023 End: 10-21-2023 Patient encounter procedure 10/21/2023 3:00 PM EDT Office Visit Cardiology [address] [place] [address] Chalo Pritchard DO [address] [place] [address] 4 month follow up Cardiology Comment on above: 4 month follow up Start: 10-11-2023 End: 10-11-2023 Patient encounter procedure 10/11/2023 2:40 PM EDT Office Visit Kidney Medicine [address] [place] [address] [place] [address] [place] [address] Acute Kidney Injury Kidney Medicine Comment on above: Acute Kidney Injury Start: 10-07-2023 End: 10-07-2023 Patient encounter procedure 10/07/2023 1:30 PM EDT Office Visit Cardiology [address] [place] [address] [place] [address] [place], [place] [phone] Follow up Cardiology Comment on above: Follow up Start: 10-07-2023 End: 10-07-2023 Patient encounter procedure Cardiology Comment on above: echo Device check Start: 10-05-2023 End: 07-04-2024 Echocardiography ECHO Cardiology Routine Chronic systolic heart failure (HCC) Expected: 10/05/2023, Expires: 07/04/2024 [facility] Work Phone: Comment on above: Expected: 10/05/2023, Expires: Start: 09-17-2023 End: 12-17-2023 Basic metabolic 2000 panel - Serum or Plasma BASIC METABOLIC PNL Lab Routine Essential hypertension Expected: 09/17/2023 (Approximate), Expires: 12/17/2023 [facility] Work Phone: Comment on above: Expected: 09/17/2023 (Approximate), Expi res: 12/17/2023 Start: 08-10-2023 End: 11-09-2023 Basic metabolic 2000 panel - Serum or Plasma BASIC METABOLIC PANEL Lab Routine Chronic systolic congestive heart failure (HCC) Expected: 08/10/2023, Expires: 11/09/2023 [facility] Work Phone: Comment on above: Expected: 08/10/2023, Expires: Start: 07-29-2023 Hemoglobin A1c measurement HbA1C [facility] Start: 07-29-2023 Hemoglobin A1c/Hemoglobin.total in Blood HbA1C [facility] Start: 07-25-2023 Tobacco Screening Tobacco Screening [facility] Start: 07-14-2023 Glaucoma screening Dilated Retinal Exam [facility] Start: 07-14-2023 Hepatitis C antibody, confirmatory test DILATED RETINAL EXAM [facility] Start: 07-05-2023 End: 10-04-2023 Basic metabolic 2000 panel - Serum or Plasma BASIC METABOLIC PNL Lab Routine Chronic systolic heart failure (HCC) Expected: 07/05/2023, Expires: 10/04/2023 [facility] Work Phone: Comment on above: Expected: 07/05/2023, Expires: Start: 07-05-2023 End: 10-04-2023 Natriuretic peptide.B prohormone N-Terminal [Mass/volume] in Serum or Plasma NT PRO BNP Lab Routine Chronic systolic heart failure (HCC) Expected: 07/05/2023, Expires: 10/04/2023 [facility] Work Phone: Comment on above: Expected: 07/05/2023, Expires: Start: 07-02-2023 Adult BMI Screening Adult BMI Screening [facility] Start: 06-24-2023 End: 06-24-2023 Patient encounter procedure [facility] Start: 06-23-2023 End: 06-23-2023 Patient encounter procedure [facility] Start: 06-21-2023 End: 06-21-2023 Patient encounter procedure [facility] Start: 06-17-2023 End: 09-16-2023 Basic metabolic 2000 panel - Serum or Plasma [facility] Work Phone: Comment on above: Expected: 06/17/2023 (Approximate), Expi res: 08/17/2023 Expected: 06/17/2023 , Expires: 09/16/2023 Start: 06-17-2023 End: 08-17-2023 CBC panel - Blood by Automated count CBC Lab Routine Systolic heart failure, unspecified HF chronicity (HCC) Expected: 06/17/2023 (Approximate), Expires: 08/17/2023 [facility] Work Phone: Comment on above: Expected: 06/17/2023 (Approximate), Expi res: 08/17/2023 Start: 06-17-2023 End: 06-17-2023 Patient encounter procedure [facility] Start: 06-16-2023 End: 06-16-2023 Patient encounter procedure [facility] Start: 06-14-2023 Subsequent hospital visit by physician 06/14/2023 11:30 AM EST Hospital Encounter [facility] - Mammogram DEXA [address] [place] [id number] [facility] DEXA Start: 06-14-2023 End: 06-14-2023 Patient encounter procedure [facility] Start: 06-12-2023 BP CONTROLLED (<130/80) BP CONTROLLED (<130/80) [facility] Start: 06-11-2023 Hepatitis B screening URINE ALBUMIN:CREATININE RATIO [facility] Start: 06-11-2023 Hepatitis B surface antibody level LDL CHOLESTEROL [facility] Start: 06-11-2023 Urine screening for protein Diabetes: Urine Protein Screening [facility] Start: 06-10-2023 End: 06-10-2023 Patient encounter procedure [facility] Start: 06-09-2023 End: 09-08-2023 ALBUMIN/CREAT RATIO RND UR ALBUMIN/CREAT RATIO RND UR Lab Routine Type 2 diabetes mellitus with other circulatory complication, with long-term current use of insulin ([facility]) Expected: 06/09/2023, Expires: 09/08/2023 [facility] Work Phone: Comment on above: Expected: 06/09/2023, Expires: Start: 06-09-2023 End: 06-09-2023 Patient encounter procedure [facility] Start: 06-07-2023 End: 06-07-2023 Patient encounter procedure [facility] Start: 06-03-2023 End: 06-03-2023 Patient encounter procedure [facility] Start: 06-02-2023 End: 06-02-2023 Patient encounter procedure [facility] Start: 05-31-2023 End: 08-30-2023 Basic metabolic 2000 panel - Serum or Plasma BASIC METABOLIC PNL Lab Routine Acute on chronic systolic congestive heart failure (HCC) Expected: 05/31/2023, Expires: 08/30/2023 [facility] Work Phone: Comment on above: Expected: 05/31/2023, Expires: Start: 05-31-2023 End: 08-30-2023 Natriuretic peptide.B prohormone N-Terminal [Mass/volume] in Serum or Plasma NT PRO BNP Lab Routine Acute on chronic systolic congestive heart failure (HCC) Expected: 05/31/2023, Expires: 08/30/2023 [facility] Work Phone: Comment on above: Expected: 05/31/2023, Expires: Start: 05-31-2023 End: 08-30-2023 Thyrotropin [Units/volume] in Serum or Plasma TSH BLD Lab Routine Acute on chronic systolic congestive heart failure (HCC) Expected: 05/31/2023, Expires: 08/30/2023 [facility] Work Phone: Comment on above: Expected: 05/31/2023, Expires: Start: 05-31-2023 End: 08-30-2023 Thyroxine (T4) free [Mass/volume] in Serum or Plasma T4 FREE/FREE THYROX Lab Routine Acute on chronic systolic congestive heart failure (HCC) Expected: 05/31/2023, Expires: 08/30/2023 [facility] Work Phone: Comment on above: Expected: 05/31/2023, Expires: Start: 05-31-2023 End: 08-30-2023 Triiodothyronine (T3) Free [Mass/volume] in Serum or Plasma T3 FREE BLD Lab Routine Acute on chronic systolic congestive heart failure (HCC) Expected: 05/31/2023, Expires: 08/30/2023 [facility] Work Phone: Comment on above: Expected: 05/31/2023, Expires: Start: 05-31-2023 End: 05-31-2023 Patient encounter procedure [facility] Start: 05-27-2023 End: 05-27-2023 Patient encounter procedure [facility] Start: 05-26-2023 End: 05-26-2023 Patient encounter procedure [facility] Start: 05-24-2023 Covid-19 Vaccine () Covid-19 Vaccine () [facility] Start: 05-24-2023 End: 05-24-2023 Patient encounter procedure [facility] Start: 05-20-2023 End: 05-20-2023 Patient encounter procedure [facility] Start: 05-19-2023 End: 05-19-2023 Patient encounter procedure [facility] Start: 05-17-2023 End: 05-17-2023 Patient encounter procedure [facility] Start: 05-13-2023 End: 05-13-2023 Patient encounter procedure [facility] Start: 05-12-2023 End: 05-12-2023 Patient encounter procedure [facility] Start: 05-10-2023 End: 05-10-2023 Patient encounter procedure [facility] Start: 05-07-2023 Hemoglobin A1c/Hemoglobin.total in Blood HBA1C [facility] Start: 05-06-2023 End: 05-06-2023 Patient encounter procedure 05/06/2023 11:00 AM EST Office Visit [facility] [address] [place] [phone] [facility] Start: 05-05-2023 End: 05-05-2023 Patient encounter procedure 05/05/2023 11:00 AM EST Office Visit [facility] [address] [place] [phone] [facility] Start: 05-03-2023 End: 05-03-2023 Patient encounter procedure 05/03/2023 11:00 AM EST Office Visit [facility] [address] [place] [phone] [facility] Start: 04-29-2023 Hemoglobin A1c measurement Diabetes: Hemoglobin A1C [facility] Start: 04-29-2023 End: 04-29-2023 Patient encounter procedure 04/29/2023 11:00 AM EST Office Visit [facility] [address] [place] [address] [facility] Start: 04-28-2023 End: 04-28-2023 Patient encounter procedure 04/28/2023 11:00 AM EST Office Visit [facility] [address] [place] [address] [facility] Start: 04-26-2023 End: 04-26-2023 Patient encounter procedure 04/26/2023 11:00 AM EST Office Visit [facility] [address] [place] [address] [facility] Start: 04-22-2023 End: 04-22-2023 Patient encounter procedure 04/22/2023 11:00 AM EST Office Visit [facility] [address] [place] [address] [facility] Start: 04-21-2023 End: 04-21-2023 Patient encounter procedure 04/21/2023 11:00 AM EST Office Visit [facility] [address] [place] [phone] [facility] Start: 04-19-2023 End: 04-19-2023 Patient encounter procedure 04/19/2023 11:00 AM EST Office Visit [facility] [address] [place] [address] [facility] Start: 04-15-2023 End: 04-15-2023 Patient encounter procedure 04/15/2023 11:00 AM EST Office Visit [facility] [address] [place] [address] [facility] Start: 04-14-2023 End: 04-14-2023 Patient encounter procedure 04/14/2023 11:00 AM EST Office Visit [facility] [address] [place] [id number] [facility] Start: 04-12-2023 Advance Directive Discussion Advance Directive Discussion [facility] Start: 04-12-2023 Behavioral Health Screening Behavioral Health Screening [facility] Start: 04-12-2023 Depression Assessment Depression Assessment [facility] Start: 02-25-2023 End: 05-27-2023 Basic metabolic 2000 panel - Serum or Plasma BASIC METABOLIC PNL Lab Routine Nonsustained ventricular tachycardia (HCC) Systolic heart failure, unspecified HF chronicity (HCC) Expected: 02/25/2023, Expires: 05/27/2023 [facility] Work Phone: Comment on above: Expected: 02/25/2023, Expires: Start: 12-12-2022 End: 02-11-2023 Basic metabolic 2000 panel - Serum or Plasma BASIC METABOLIC PNL Lab Routine Essential hypertension Expected: 12/12/2022 (Approximate), Expires: 02/11/2023 [facility] Work Phone: Comment on above: Expected: 12/12/2022 (Approximate), Expi res: 02/11/2023 Start: 12-12-2022 End: 02-11-2023 CBC panel - Blood by Automated count CBC Lab Routine 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 Expected: 12/12/2022 (Approximate), Expires: 02/11/2023 [facility] Work Phone: Comment on above: Expected: 12/12/2022 (Approximate), Expi res: 02/11/2023 Start: 12-12-2022 End: 02-11-2023 Lipid 1996 panel - Serum or Plasma LIPID PANEL BASIC Lab Routine Mixed hyperlipidemia Expected: 12/12/2022 (Approximate), Expires: 02/11/2023 [facility] Work Phone: Comment on above: Expected: 12/12/2022 (Approximate), Expi res: 02/11/2023 Start: 12-11-2022 Hemoglobin A1c/Hemoglobin.total in Blood HBA1C [facility] Start: 12-11-2022 Influenza vaccination INFLUENZA (#1) [facility] Start: 12-05-2022 BP CONTROLLED (<130/80) BP CONTROLLED (<130/80) [facility] Start: 10-07-2022 End: 12-07-2022 Magnesium [Mass/volume] in Serum or Plasma MAGNESIUM BLD Lab Routine Hypomagnesemia Expected: 10/07/2022, Expires: 12/07/2022 [facility] Work Phone: Comment on above: Expected: 10/07/2022, Expires: 3 Start: 09-04-2022 BP CONTROLLED (<130/80) BP CONTROLLED (<130/80) [facility] Start: 08-29-2022 Hepatitis B surface antibody level LDL CHOLESTEROL [facility] Start: 07-25-2022 COVID-19 VACCINE (6 - Pfizer series) COVID-19 VACCINE (6 - Pfizer series) [facility] Start: 06-10-2022 End: 08-10-2022 ALBUMIN/CREAT RATIO RND UR [facility] Work Phone: Comment on above: Expected: 06/10/2022, Expires: 3 Start: 06-10-2022 End: 08-10-2022 Hemoglobin A1c in Blood [facility] Work Phone: Comment on above: Expected: 06/10/2022, Expires: 3 Start: 06-10-2022 End: 08-10-2022 Lipid 1996 panel - Serum or Plasma [facility] Work Phone: Comment on above: Expected: 06/10/2022, Expires: 3 Start: 06-10-2022 End: 08-10-2022 Thyrotropin [Units/volume] in Serum or Plasma [facility] Work Phone: Comment on above: Expected: 06/10/2022, Expires: 3 Start: 06-10-2022 End: 08-10-2022 Urinalysis complete panel - Urine [facility] Work Phone: Comment on above: Expected: 06/10/2022, Expires: 3 Start: 06-07-2022 End: 08-07-2022 Basic metabolic 2000 panel - Serum or Plasma BASIC METABOLIC PNL Lab Routine 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 Expected: 06/07/2022 (Approximate), Expires: 08/07/2022 [facility] Work Phone: Comment on above: Expected: 06/07/2022 (Approximate), Expi res: 08/07/2022 Start: 06-07-2022 End: 08-07-2022 CBC panel - Blood by Automated count CBC Lab Routine 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 Expected: 06/07/2022 (Approximate), Expires: 08/07/2022 [facility] Work Phone: Comment on above: Expected: 06/07/2022 (Approximate), Expi res: 08/07/2022 Start: 04-12-2022 ADVANCE DIRECTIVE DISCUSSION ADVANCE DIRECTIVE DISCUSSION [facility] Start: 04-12-2022 DEPRESSION ASSESSMENT DEPRESSION ASSESSMENT [facility] Start: 02-27-2022 BP CONTROLLED (<130/80) BP CONTROLLED (<130/80) [facility] Start: 12-11-2021 Influenza vaccination [facility] Start: 10-16-2021 COVID-19 VACCINE (5 - Booster for Pfizer series) COVID-19 VACCINE (5 - Booster for Pfizer series) [facility] Start: 09-18-2021 Adult depression screening assessment DEPRESSION SCREENING [facility] Start: 08-14-2021 Hepatitis B surface antibody level LDL CHOLESTEROL [facility] Start: 04-12-2021 ADVANCE DIRECTIVE DISCUSSION ADVANCE DIRECTIVE DISCUSSION [facility] Start: 04-12-2021 DEPRESSION ASSESSMENT DEPRESSION ASSESSMENT [facility] Start: 02-14-2021 Hemoglobin A1c/Hemoglobin.total in Blood HBA1C [facility] Start: 12-13-2020 Pneumococcal Vaccine: 65+ (2 - PCV) Pneumococcal Vaccine: 65+ (2 - PCV) [facility] Start: 12-13-2020 Pneumococcal Vaccine: 65+ (2 of 2 - PCV) Pneumococcal Vaccine: 65+ (2 of 2 - PCV) [facility] Start: 12-13-2020 Pneumococcal Vaccine: 65+ Years (2 - PCV) Pneumococcal Vaccine: 65+ Years (2 - PCV) [facility] Start: 11-02-2020 COVID-19 VACCINE (3 - Booster for Pfizer series) COVID-19 VACCINE (3 - Booster for Pfizer series) [facility] Start: 10-17-2020 Hepatitis B screening URINE ALBUMIN:CREATININE RATIO [facility] Start: 07-08-2018 Mammography MAMMOGRAM [facility] Start: 03-22-2018 Colonoscopy COLONOSCOPY [facility] Start: 03-22-2018 COLORECTAL CANCER SCREENING COLORECTAL CANCER SCREENING [facility] Start: 11-21-2014 Administration of varicella zoster vaccine Zoster (Shingles) Vaccine (2 of 3) [facility] Start: 11-21-2014 Shingrix Vaccine (2 of 3) Shingrix Vaccine (2 of 3) [facility] Start: 09-27-2011 BONE DENSITY BONE DENSITY [facility] Start: 09-27-2011 Bone Density Screening Bone Density Screening [facility] Start: 09-27-2011 Fall Risk Screening Fall Risk Screening [facility] Start: 09-27-2011 PNEUMOVAX AGE 65 AND OVER WITH 5YR LOOKBACK (#1) PNEUMOVAX AGE 65 AND OVER WITH 5YR LOOKBACK (#1) [facility] Start: 09-27-2011 Screening for osteoporosis Bone Density Screening [facility] Start: 2006 Hepatitis B Vaccine (1 of 3 - Risk 3-dose series) Hepatitis B Vaccine (1 of 3 - Risk 3-dose series) [facility] Start: 2006 RSV Vaccine (1 - 1-dose 60+ series) RSV Vaccine (1 - 1-dose 60+ series) [facility] Start: 1996 SHINGRIX VACCINE (1 of 2) SHINGRIX VACCINE (1 of 2) [facility] Start: 09-27-1991 COLOGUARD (FIT-DNA) COLOGUARD (FIT-DNA) [facility] Start: 09-27-[address] COLONOGRAPHY [facility] Start: 09-27-1991 FECAL OCCULT BLOOD FECAL OCCULT BLOOD [facility] Start: 09-27-1991 SIGMOIDOSCOPY SIGMOIDOSCOPY [facility] Start: 1965 DTaP,Tdap and Td Vaccines (1 - Tdap) DTaP,Tdap and Td Vaccines (1 - Tdap) [facility] Start: 1965 Urine microalbumin profile [facility] Start: 1964 Adult BMI Follow Up Plan Adult BMI Follow Up Plan [facility] Start: 1964 ANNUAL PCP TEAM CHRONIC DISEASE VISIT ANNUAL PCP TEAM CHRONIC DISEASE VISIT [facility] Start: 1964 Anxiety Screening Anxiety Screening [facility] Start: 1964 BP CONTROLLED (<130/80) BP CONTROLLED (<130/80) [facility] in Start: 1964 Depression Screening Depression Screening [facility] Start: 1964 HEPATITIS C SCREENING HEPATITIS C SCREENING [facility] Start: 1964 Hepatitis C screening Hepatitis C Screening [facility] Start: 1958 Depression Screening Depression Screening [facility] Start: 1956 3 comp foot exam completed DIABETIC FOOT EXAM [facility] Start: 1956 Hepatitis C antibody, confirmatory test DILATED RETINAL EXAM [facility] Start: 1952 PNEUMOCOCCAL: 65+ (1 - PCV) PNEUMOCOCCAL: 65+ (1 - PCV) [facility] Start: 1946 Medicare Annual Wellness (AWV) Medicare Annual Wellness (AWV) [facility] Start: 1946 Medicare Annual Wellness Visit Medicare Annual Wellness Visit [facility] CARDIOPULMONARY REHABILITATION CARDIOPULMONARY REHABILITATION Cardiac Services Ordered: 04/14/2023 [facility] Comment on above: Ordered: 04/14/2023 CARDIOPULMONARY REHABILITATION CARDIOPULMONARY REHABILITATION Cardiac Services Ordered: 04/19/2023 [facility] Comment on above: Ordered: 04/19/2023 CARDIOPULMONARY REHABILITATION CARDIOPULMONARY REHABILITATION Cardiac Services Ordered: 04/21/2023 [facility] Comment on above: Ordered: 04/21/2023 CARDIOPULMONARY REHABILITATION CARDIOPULMONARY REHABILITATION Cardiac Services Ordered: 04/22/2023 [facility] Comment on above: Ordered: 04/22/2023 CARDIOPULMONARY REHABILITATION CARDIOPULMONARY REHABILITATION Cardiac Services Ordered: 04/26/2023 [facility] Comment on above: Ordered: 04/26/2023 CARDIOPULMONARY REHABILITATION CARDIOPULMONARY REHABILITATION Cardiac Services Ordered: 04/28/2023 [facility] Comment on above: Ordered: 04/28/2023 CARDIOPULMONARY REHABILITATION CARDIOPULMONARY REHABILITATION Cardiac Services Ordered: 05/05/2023 [facility] Comment on above: Ordered: 05/05/2023 CARDIOPULMONARY REHABILITATION CARDIOPULMONARY REHABILITATION Cardiac Services Ordered: 05/06/2023 [facility] Comment on above: Ordered: 05/06/2023 CARDIOPULMONARY REHABILITATION CARDIOPULMONARY REHABILITATION Cardiac Services Ordered: 05/10/2023 [facility] Comment on above: Ordered: 05/10/2023 CARDIOPULMONARY REHABILITATION CARDIOPULMONARY REHABILITATION Cardiac Services Ordered: 05/13/2023 [facility] Comment on above: Ordered: 05/13/2023 CARDIOPULMONARY REHABILITATION CARDIOPULMONARY REHABILITATION Cardiac Services Ordered: 05/13/2023 [facility] Comment on above: Ordered: 05/13/2023 CARDIOPULMONARY REHABILITATION CARDIOPULMONARY REHABILITATION Cardiac Services Ordered: 05/17/2023 [facility] Comment on above: Ordered: 05/17/2023 CARDIOPULMONARY REHABILITATION CARDIOPULMONARY REHABILITATION Cardiac Services Ordered: 05/19/2023 [facility] Comment on above: Ordered: 05/19/2023 CARDIOPULMONARY REHABILITATION CARDIOPULMONARY REHABILITATION Cardiac Services Ordered: 06/09/2023 [facility] Comment on above: Ordered: 06/09/2023 CARDIOPULMONARY REHABILITATION CARDIOPULMONARY REHABILITATION Cardiac Services Ordered: 06/10/2023 [facility] Comment on above: Ordered: 06/10/2023 CARDIOPULMONARY REHABILITATION CARDIOPULMONARY REHABILITATION Cardiac Services Ordered: 06/16/2023 [facility] Comment on above: Ordered: 06/16/2023 CARDIOPULMONARY REHABILITATION CARDIOPULMONARY REHABILITATION Cardiac Services Ordered: 06/21/2023 [facility] Comment on above: Ordered: 06/21/2023 CARDIOPULMONARY REHABILITATION CARDIOPULMONARY REHABILITATION Cardiac Services Ordered: 06/23/2023 [facility] Comment on above: Ordered: 06/23/2023 CARDIOPULMONARY REHABILITATION CARDIOPULMONARY REHABILITATION Cardiac Services Ordered: 06/28/2023 [facility] Comment on above: Ordered: 06/28/2023 End: 06-12-2023 ECG COMPLETE ECG COMPLETE ECG Routine 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 Moderate obstructive sleep apnea 1 Occurrences starting 06/11/2022 until 06/12/2023 [facility] Work Phone: Comment on above: 1 Occurrences starting 06/11/2022 until 06/12/2023 End: 12-18-2023 ECG COMPLETE ECG COMPLETE ECG Routine 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 1 Occurrences starting 12/17/2022 until 12/18/2023 [facility] Work Phone: Comment on above: 1 Occurrences starting 12/17/2022 until 12/18/2023 ECG COMPLETE ECG COMPLETE ECG 12/17/2022 11:10 AM EDT [facility] ECG COMPLETE ECG COMPLETE ECG Routine HFrEF (heart failure with reduced ejection fraction) (HCC) Ischemic cardiomyopathy Ordered: 06/17/2023 [facility] Work Phone: Comment on above: Ordered: 06/17/2023 ECG COMPLETE ECG COMPLETE ECG 07/15/2023 1:28 PM EDT [facility] ECG COMPLETE [facility] Work Phone: Comment on above: Ordered: 10/07/2023 End: 06-12-2023 ECHO LIMITED ECHO LIMITED Cardiology Routine Systolic heart failure, unspecified HF chronicity (HCC) Dyspnea, unspecified type 1 Occurrences starting 06/11/2022 until 06/12/2023 [facility] Work Phone: Comment on above: 1 Occurrences starting 06/11/2022 until 06/12/2023 End: 09-04-2022 Echocardiography ECHO Cardiology Routine Chest discomfort 1 Occurrences starting 09/04/2021 until 09/04/2022 [facility] Work Phone: Comment on above: 1 Occurrences starting 09/04/2021 until 09/04/2022 End: 09-25-2022 HOME SLEEP APNEA TEST (HSAT) HOME SLEEP APNEA TEST (HSAT) Procedures Routine Obstructive sleep apnea syndrome Essential hypertension Cardiomyopathy, unspecified type (HCC) Class 1 obesity due to excess calories with serious comorbidity and body mass index (BMI) of 32.0 to 32.9 in adult 1 Occurrences starting 09/25/2021 until 09/25/2022 [facility] Work Phone: Comment on above: 1 Occurrences starting 09/25/2021 until 09/25/2022 End: 08-02-2024 HOME SLEEP APNEA TEST (HSAT) HOME SLEEP APNEA TEST (HSAT) Procedures Routine Obstructive sleep apnea syndrome Essential hypertension 1 Occurrences starting 08/03/2023 until 08/02/2024 [facility] Work Phone: Comment on above: 1 Occurrences starting 08/03/2023 until 08/02/2024 End: 10-04-2022 NM CARDIAC PERF STRESS/PHARM NM CARDIAC PERF STRESS/PHARM Radiology Routine Chest discomfort 1 Occurrences starting 09/04/2021 until 10/04/2022 [facility] Work Phone: Comment on above: 1 Occurrences starting 09/04/2021 until 10/04/2022 Protein/Creatinine [ Mass Ratio] in Urine PROTEIN / CREATININE RATIO Lab Routine Stage 3b chronic kidney disease (HCC) 10/11/2023 4:03 PM EDT [facility] Work Phone: End: 09-04-2022 PVR LEG W/EXC PHIL VAS LAB PVR LEG W/EXC PHIL VAS LAB Vascular Lab Routine Hyperlipidemia associated with type 2 diabetes mellitus (HCC) History of axillobifemoral bypass graft 1 Occurrences starting 09/04/2021 until 09/04/2022 [facility] Work Phone: Comment on above: 1 Occurrences starting 09/04/2021 until 09/04/2022 [facility] Immunizations Immunization Date Immunization Notes Care Provider Sharita murdock 01-21-2023 influenza virus vaccine, unspecified formulation Mikel Barahona APRN.CNP Work Phone: [facility] 02-26-2017 influenza, injectabl e, quadrivalent, contains preservative Chalo Pritchard DO Work Phone: [facility] 2014 zoster vaccine, unspecified formulation Pm 1 [facility] Payers Date Payer Category Payer Unknown MMO MMO MEDICARE SUPPLEMENT [id number] 2019-Present [phone] [address] [place] [address] Indemnity [id number] 2018 Unknown 2011 Medicare [id number]. [id number] 2011 Medicare [id number]. 1.13.159.2.7.3. [id number] 1959 Medicare [id number] 1959 Self-pay [id number] 1959 Unknown [id number] 1946 Unknown [id number] 2.16.840.1.956763.3.579.2.593 1946 Unknown [id number] 2.16.840.1.225285.3.579.2.593 1946 Unknown [id number] 2.16.840.1.426371.3.579.2.182 1946 Unknown [id number] 2.16.840.1.544485.3.579.2.1286 1946 Unknown [id number] 2.16.840.1.745540.3.579.2.1286 1946 Unknown [id number] 2.16.840.1.932920.3.579.2.1286 1946 Unknown [id number] 2.16.840.1.982678.3.579.2.1286 1946 Unknown [id number] 2.16.840.1.918325.3.579.2.1286 1946 Unknown [id number] 2.16.840.1.905432.3.579.2.1286 1946 Unknown [id number] 2.16.840.1.037345.3.579.2.1286 1946 Unknown [id number] 2.16.840.1.794924.3.579.2.1286 1946 Unknown [id number] 2.16.840.1.845512.3.579.2.1286 1946 Unknown [id number] 2.16.840.1.190195.3.579.2.1286 1946 Unknown [id number] 2.16.840.1.962721.3.579.2.1285 1946 Unknown [id number] 2.16.840.1.915357.3.579.2.128 1946 Unknown [id number] 2.16.840.1.802411.3.579.2.128 1946 Unknown [id number] 2.16.840.1.870619.3.579.2.128 1946 Unknown [id number] 2.16.840.1.075572.3.579.2.1285 1946 Unknown [id number] 2.16.840.1.376833.3.579.2.1285 1946 Unknown [id number] 2.16.840.1.385480.3.579.2.1285 1946 Unknown [id number] 2.16.840.1.877658.3.579.2.1285 1946 Unknown [id number] 2.16.840.1.044130.3.579.2.1285 1946 Unknown [id number] 2.16.840.1.485749.3.579.2.1285 1946 Unknown [id number] 2.16.840.1.778956.3.579.2.1285 1946 Unknown [id number] 2.16.840.1.730900.3.579.2.1285 1946 Unknown [id number] 2.16.840.1.671598.3.579.2.1285 1946 Unknown [id number] 2.16.840.1.567641.3.579.2.1285 1946 Unknown [id number] 2.16.840.1.233801.3.579.2.1285 1946 Unknown [id number] 2.16.840.1.645387.3.579.2.1285 1946 Unknown [id number] 2.16.840.1.616323.3.579.2.1285 1946 Unknown [id number] 2.16.840.1.136421.3.579.2.1285 1946 Unknown [id number] 2.16.840.1.443266.3.579.2.1285 1946 Unknown [id number] 2.16.840.1.316519.3.579.2.1285 1946 Unknown [id number] 2.16.840.1.697791.3.579.2.1285 1946 Unknown [id number] 2.16.840.1.120559.3.579.2.1285 1946 Unknown [id number] 2.16.840.1.382866.3.579.2.1285 1946 Unknown [id number] 2.16.840.1.287244.3.579.2.1285 1946 Unknown [id number] 2.16.840.1.046763.3.579.2.1285 1946 Unknown [id number] 2.16.840.1.247408.3.579.2.1285 1946 Unknown [id number] 2.16.840.1.919524.3.579.2.1285 1946 Unknown [id number] 2.16.840.1.457896.3.579.2.1285 1946 Unknown [id number] 2.16.840.1.760082.3.579.2.1285 1946 Unknown [id number] 2.16.840.1.576803.3.579.2.1285 1946 Unknown [id number] 2.16.840.1.394518.3.579.2.1259 1946 Unknown [id number] 2.16.840.1.290100.3.579.2.1259 1946 Unknown [id number] 2.16.840.1.131358.3.579.2.1259 1946 Unknown [id number] 2.16.840.1.781655.3.579.2.1286 1946 Unknown [id number] 2.16.840.1.639263.3.579.2.1286 Unknown [id number] 2.16.840.1.738867.3.579.2.593 Social History Date Type Detail Facility Start: 12-05-2021 End: 02-16-2023 Tobacco smoking status NHIS Ex-smoker [facility] Start: 02-27-2021 End: 10-21-2023 Alcohol intake Ex-drinker (finding) [facility] Start: 01-03-2020 History SDOH Financial 5 [facility] Start: 01-03-2020 History SDOH Food Worry 1 [facility] Start: 01-03-2020 History SDOH Transport Med 2 [facility] Start: 1945 Sex Assigned At Female [facility] Start: 08-12-2020 End: 12-05-2021 Exposure to SARS-CoV-2 (event) Not sure [facility] History of tobacco use Current smoker [facility] Start: 12-05-2021 End: 02-16-2023 Tobacco use and exposure Smokeless tobacco non-user [facility] Start: 12-05-2021 Tobacco Comment quit at 36. [facility] Start: 08-07-2022 End: 11-04-2022 History of Social function [facility] Start: 08-07-2022 End: 11-04-2022 Tobacco use panel [facility] How hard is it for y ou to pay for the very basics like food, housing, medical care, and heating Not hard at all [facility] (I/We) worried whesayda er (my/our) food would run out before (I/we) got money to buy more. Never true [facility] Start: 05-08-2019 Gender identity Identifies as female gender (finding) [facility] Start: 05-08-2019 Sexual orientation Heterosexual (finding) [facility] In the past 12 month s, was there a time when you were not able to pay the mortgage or rent on time? No [facility] Start: 02-16-2023 Tobacco Comment Social for approx 1 year around age 36 [facility] Start: 07-27-2022 End: 06-14-2023 Alcohol intake Current non-drinker of alcohol (finding) [facility] Start: 08-17-2016 Alcohol Comment rarely [facility] History of tobacco use Cigarette Smoker [facility] Start: 04-08-2023 Alcohol intake Current drinker of alcohol (finding) [facility] Start: 03-24-2023 Tobacco Comment Last smoked: >10 years [facility] Start: 03-24-2023 Alcohol Comment 1-2 drinks monthly or less, caffeine 1-2 cups per day [facility] Start: 1945 Sex Assigned At Not on file [facility] Medical Equipment Procedure Code Equipment Code Equipment Origin al Text Equipment Identifier Dates Graft Orwell 8mm Thin Wall Heparin Propaten Ptfe 80cm 70cm Vascular Removable - [id number] Start: 01-02-2020 [id number] Start: 11-30-2016 End: 06-15-2023 Comment on above: BD Ultra-Fine Rubia P en Needle 32 gauge x 5/32 Use as instructed Use as instructed to monitor glucose. One touch ultra verio test strips. [id number] Lionel lt Xt Hf Quad Typing Pool Supervisor-D [id number] Start: 06-30-2023 [id number] Capsurefix Novus [id number] Start: 06-30-2023 [id number] Elliot in Stability Quad Mri Surescan [id number] Start: 06-30-2023 [id number] Sprint Quattro Secure S [id number] Start: 06-30-2023 Goals Date Patient Goal Desired Activity /State Personal health goal Clinical Notes 07-21-2021 to 11-10-2023 Telephone Encounter - Rachael Buchanan MA - 11/10/2023 10:42 AM EDTTelephone Encounter - Rachael Buchanan MA - 11/10/2023 10:42 AM EDTTelephone Encounter - Jade Griffith RN - 11/08/2023 10:05 AM EDT Note Date & Type Note Facility 11-10-2023 Telephone encounter Note Bob 10/21/23 04/16/2024 [facility] 11-10-2023 Miscellaneous Notes Bob 10/21/23 04/16/2024 documented in this encounter [facility] 11-08-2023 Telephone encounter Note Received request for refill of the following medications: Requested Prescriptions Pending Prescriptions Disp Refills magnesium oxide (MAG-OX) 400 mg (241.3 mg magnesium) tablet [Pharmacy Med Name: MAG-OXIDE 400MG TABLETS] 180 tablet 3 Sig: TAKE 1 TABLET BY MOUTH TWICE DAILY. TAKE SEPERATELY FROM DOXYCYCLINE Patient requested a 90 day refill. Pharmacy verified and updated accordingly. Patient was last seen in cardiology office: 10/21/2023. Upcoming appointment scheduled: 04/26/2024. Labs: Hemoglobin (g/dL) Date Value 06/30/2023 12.3 08/14/2020 11.7 Hematocrit (%) Date Value 06/30/2023 39.4 08/14/2020 39.2 WBC (k/uL) Date Value 06/30/2023 7.79 08/14/2020 8.08 Platelet Count (k/uL) Date Value 06/30/2023 199 08/14/2020 275 Creatinine Date Value Ref Range Status 09/22/2023 1.39 (H) 0.58 - 0.96 mg/dL Final 08/11/2023 1.44 (H) 0.58 - 0.96 mg/dL Final [facility] 11-08-2023 Miscellaneous Notes Received request for refill of the following medications: Requested Prescriptions Pending Prescriptions Disp Refills magnesium oxide (MAG-OX) 400 mg (241.3 mg magnesium) tablet [Pharmacy Med Name: MAG-OXIDE 400MG TABLETS] 180 tablet 3 Sig: TAKE 1 TABLET BY MOUTH TWICE DAILY. TAKE SEPERATELY FROM DOXYCYCLINE Patient requested a 90 day refill. Pharmacy verified and updated accordingly. Patient was last seen in cardiology office: 10/21/2023. Upcoming appointment scheduled: 04/26/2024. Labs: Hemoglobin (g/dL) Date Value 06/30/2023 12.3 08/14/2020 11.7 Hematocrit (%) Date Value 06/30/2023 39.4 08/14/2020 39.2 WBC (k/uL) Date Value 06/30/2023 7.79 08/14/2020 8.08 Platelet Count (k/uL) Date Value 06/30/2023 199 08/14/2020 275 Creatinine Date Value Ref Range Status 09/22/2023 1.39 (H) 0.58 - 0.96 mg/dL Final 08/11/2023 1.44 (H) 0.58 - 0.96 mg/dL Final documented in this encounter [facility] 10-21-2023 History of Present illness Narrative Images from the original note were not included. [facility] [place] SECTION OF REGIONAL CARDIOLOGY October 21, 2023 Outpatient VISIT TYPE Established PRIMARY CARE PHYSICIAN: Alan Vega, DO [address] [place] [id number] HISTORY OF PRESENT ILLNESS: Ms. Elias is a 78 year old female with a past medical history of [employer] BERRY GROWER-D placed 06/30/2023, chronic systolic heart failure EF on last echo 25%, nonischemic cardiomyopathy, CAD status post [facility] on 06/07/2019 with 50-70% stenosis of the mid LAD, HTN, HLD, PVD sp right axillobifemoral bypass graft on 01/02/20 for severe aortic stenosis at the level of the renal arteries, DM, diverticulitis, ankle pain. She was seen last by me on 06/17/2023, per that note: ... she tells me that she has shortness of breath when she is walking. She did cardiac rehab yesterday for 40 minutes. He ankles were swollen for a bit yet, this has improved with weightloss. She is hoping that she will have more energy after she has the BERRY GROWER-D. She denies having any: chest pain, palpitations, orthopnea, LE edema, presyncope/syncope, N/V, bleeding, or other significant symptoms. BERRY GROWER-D was placed 06/30/2023. She was seen last by Dr. Polk on 10/07/2023 where metoprolol was increased. She was seen by Dr. Strange on 07/27/23 and will follow-up in around 4 months. Today, she tells me that she is feeling much better now. She is walking a mile at least 3x a week now and states that she couln't walk to the mailbox previous to having the BERRY GROWER placed. She lost weight since starting ozempic and now states that he weight is stable over the last 3 months. She tells me that she had diarrhea while on metformin yet, now since is on ozempic and doing ell. She denies having any: chest pain, palpitations, shortness of breath, orthopnea, LE edema, presyncope/syncope, N/V, bleeding, or other significant symptoms. She is eating vegetables on most days. She watches her carbs closely. She is on ozempic and feels well. She only occasionally has coffee. She will have an alcoholic beverage 3 times a year or less. She doesn't smoke or use any drugs. She is now walking since she was unable to go to the pool after her BERRY GROWER placement. Family, father had cancer. Mother was in her early 60s with CABG and a pacemaker. 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 IMPRESSION: Encounter Diagnosis ICD-10-CM 1. HFrEF (heart failure with reduced ejection fraction) ([facility]) I50.20 COMPLETE BLOOD COUNT NT PRO BNP 2. Cardiomyopathy, unspecified type (HCC) I42.9 NT PRO BNP 3. 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 I25.10 4. Essential hypertension I10 BASIC METABOLIC PANEL 5. Mixed hyperlipidemia E78.2 6. Hyperlipidemia associated with type 2 diabetes mellitus (HCC) (HCC) E11.69 E78.5 7. Nonrheumatic mitral valve regurgitation I34.0 8. Cardiac resynchronization therapy defibrillator (BERRY GROWER-D) in place Z95.810 9. H/O aorto-femoral bypass Z95.828 10. Moderate obstructive sleep apnea G47.33 PLAN AND RECOMMENDATIONS: Chronic systolic heart failure with LVEF 25% now post BERRY GROWER-D. Continue GDMT as detailed by heart failure, currently blood pressure appears to be borderline low: Continue metoprolol XL 50 mg daily Continue Furosemide 40 mg twice daily Continue valsartan 20 mg daily Jardiance 10 mg daily We will discuss her symptoms at next visit and consider if further titration is necessary at next visit. CAD with intermediate lesion in the LAD, IFR 0.9 on last [facility]. continue cardiac medications at this time. Continue cardiac medications: Aspirin plus Plavix, beta genia, statin. Goal blood pressure less than 130/80 mmHg. Will attempt to maintain systolic BP above 85mmHg. Continue current antihypertensive medications, BP is controlled. Also continue lifestyle modifications. Check labs prior to next visit: CBC, BMP, BNP. Goal LDL is less than 70 mg/dL. Continue rosuvastatin as this may improve her A1c. Check lipids at least yearly. Goal A1C is less than 7.0%. MR will need to be re-evaluated after further optimization with heart failure. BERRY GROWER-D in situ and appears to be functioning well. EP is optimizing. QRS duration is now shortened. History of aortofemoral bypass noted. ERASMO noted, FU with sleep medicine prior to next visit. REVIEW OF SYSTEMS: Chest pain No Shortness of breath no Bleeding No Dizziness No Syncope No Palpations No 10 systems reviewed and are negative with the exception of pertinent positives described in HPI PHYSICAL EXAMINATION: via telephone BP 125/60 Pulse 83 Wt 69.8 kg (153 lb 14.1 oz) SpO2 99% BMI 24.84 kg/m Gen.: No apparent distress, obese HEENT: normocephalic, EOMI, no JVD, No carotid bruit. Heart: regular rhythm, no significant murmur Lungs: clear to auscultation Abdomen: bowel sounds present Extremities: trace edema in feet BL. Musculoskeletal: chest wall nontender Neurological: alert and oriented Psychiatric: appropriate and cooperative Skin: no rash, cellulitis or lesions appreciated CARDIOVASCULAR MEDICINE TESTING: I have personally reviewed ECG, PVR report, echocardiogram report, stress test report, MCOT report, and labs ECG -10/07/2023 NSR 75 bpm, RAD, low voltage, cannot exclude anterior myocardial infarction, anterolateral T wave abnormality, abnormal ECG Echocardiogram-10/07/2023 CONCLUSIONS: - Technically difficult exam due to suboptimal positioning. - Exam indication: Evaluation of known heart failure to guide therapy - The left ventricle is severely dilated. There is mild concentric left ventricular hypertrophy. Left ventricular systolic function is severely decreased. EF = 25 5% (visual est.) Definity contrast used for endocardial border detection. - The right ventricle is normal in size. Right ventricular systolic function is normal. - The left atrial cavity is moderately dilated. - There is moderate (2+ - 3+) holosystolic mitral valve regurgitation due to apical tethering of normal mitral leaflet caused by LV enlargement likely related to nonischemic cardiomyopathy. Regurgitant orifice area (PISA) is 0.17 cm . - Exam was compared with the prior CC echocardiographic exam performed on 05/25/23. There is improvement in RV function, TR and estimated RVSP today. Prior LV EF 21%. PVR-01/06/21 IMPRESSION Compared to prior study of 02/19/2020, Right TBI was .62; left was.56. No significant change in PVR waveforms throughout. RIGHT SIDE Resting right ankle brachial index: 1.25 Partially non-compressible arteries, TIARA not accurate. Right toe brachial index: 0.54 Non-compressible vessels, results called by PVR tracings. Abnormal toe brachial index at rest is evidence of peripheral artery disease. Right ankle: Moderate disease at rest. Aortic or bilateral iliofemoral disease. LEFT SIDE Resting left ankle brachial index: 1.29 Partially non-compressible arteries, TIARA not accurate. Left toe brachial index: 0.62 Non-compressible vessels, results called by PVR tracings. Abnormal toe brachial index at rest is evidence of peripheral artery disease. Left ankle: Moderate disease at rest. Aortic or bilateral iliofemoral disease. SPECT - 10/07/21 CONCLUSIONS: 1. SPECT Perfusion Study: Normal. 2. There is no scintigraphic evidence for inducible ischemia. 3. No evidence of scarred myocardium. 4. Left ventricle is normal in size. The left ventricle systolic function is normal. 5. Right ventricle is normal in size. 6. This is a low risk scan. Gated Stress FBP LVEF % 67 MCOT -05/18/2020 Patient had a min HR of 59 bpm, max HR of 193 bpm, and avg HR of 80 bpm. Predominant underlying rhythm was Sinus Rhythm. 12 Ventricular Tachycardia runs occurred, the run with the fastest interval lasting 7 beats with a max rate of 193bpm, the longest lasting 7 beats with an avg rate of 126 bpm. 3 Supraventricular Tachycardia runs occurred, the run with the fastest interval lasting 5 beats with a max rate of 193 bpm, the longest lasting 7 beats with an avg rate of 135 bpm. Isolated SVEs were rare (<1.0%), SVE Couplets were rare (<1.0%), and SVE Triplets were rare (<1.0%). Isolated VEs were occasional (1.9%, [id number]), VE Couplets were rare (<1.0%, 2064), and VE Triplets were rare (<1.0%, 32). Ventricular Bigeminy and Trigeminy were present. 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 Cardiac Catheterization 06/08/2019: LM : normal Mid LAD : 50--70% cx : see initial cath BERRY GROWER-D interrogation-10/07/23 * Normal Device Function * Alerts or events: None * Battery: OK, 10.58 yrs * Sensing, impedance and thresholds reviewed and tested * Presenting Rhythm: /LV paced * Underlying Rhythm: Sinus rhythm * Heart Rate Histograms reviewed Latest Reference Range & Units 09/22/23 09:37 Sodium 136 - 144 mmol/L 141 Potassium 3.7 - 5.1 mmol/L 4.7 Chloride 98 - 107 mmol/L 105 CO2 22 - 30 mmol/L 27 BUN 7 - 21 mg/dL 36 (H) Creatinine 0.58 - 0.96 mg/dL 1.39 (H) Glucose 74 - 99 mg/dL 108 (H) Calcium 8.5 - 10.2 mg/dL 10.0 Anion Gap 8 - 15 mmol/L 9 eGFR >=60 mL/min/1.73m 39 (L) (H): Data is abnormally high (L): Data is abnormally low Hemoglobin (g/dL) Date Value 06/30/2023 12.3 08/14/2020 11.7 Hematocrit (%) Date Value 06/30/2023 39.4 08/14/2020 39.2 WBC (k/uL) Date Value 06/30/2023 7.79 08/14/2020 8.08 PAST MEDICAL HISTORY Diagnosis Date Cardiomyopathy (HCC) Claudication (HCC) DM (diabetes mellitus) (HCC) HTN (hypertension) Incontinence NSVT (nonsustained ventricular tachycardia) (HCC) Sciatica Systolic CHF (HCC) PAST SURGICAL HISTORY Procedure Laterality Date CHOLECYSTECTOMY REMV CATARACT EXTRACAP,INSERT LENS Bilateral TOTAL ABDOMINAL HYSTERECT W/WO RMVL TUBE OVARY Social History Tobacco Use Smoking status: Former Smokeless tobacco: Never Tobacco comments: Social for approx 1 year around age 36 Vaping Use Vaping Use: Never used Substance Use Topics Alcohol use: Not Currently Drug use: Never FAMILY HISTORY Problem Relation Age of Onset other (cabg) Mother other (pacemaker) Mother Diabetes Father Lung Cancer Father COPD Brother ALLERGIES Allergen Reactions Penicillins Anaphylaxis, Hives Iodinated Contrast * Other: See Comments Throat itching to some Xray dye >20-30 years ago CURRENT MEDICATIONS: metoprolol succinate ER (TOPROL XL) 25 mg 24 hr tablet Take 1 tablet by mouth as directed. 50 mg AM and 25 mg PM semaglutide (OZEMPIC) 2 mg/dose (8 mg/3 mL) pen injector Inject 2 mg subcutaneously one time a week. empagliflozin (JARDIANCE) 10 mg tablet Take 1 tablet by mouth daily with breakfast. furosemide (LASIX) 40 mg tablet Take 0.5 tablets by mouth once daily. diazePAM (VALIUM) 2 mg tablet sertraline (ZOLOFT) 50 mg tablet Take 25 mg by mouth once daily. clopidogrel (PLAVIX) 75 mg tablet Take by mouth every 24 hours. insulin detemir U-100 (LEVEMIR) 100 unit/mL (3 mL) injection pen Inject 20 Units subcutaneously daily at bedtime. valsartan (DIOVAN) 40 mg tablet Take 0.5 tablets by mouth once daily. rosuvastatin (CRESTOR) 40 mg tablet Take 1 tablet by mouth daily at bedtime. blood sugar diagnostic (BLOOD GLUCOSE TEST) test strip Use as instructed to monitor glucose. One touch ultra verio test strips. Blood-Glucose Sensor (FREESTYLE RU 3 SENSOR) mauricio Use new sensor every 14 days to monitor blood glucose. magnesium oxide (MAG-OX) 400 mg (241.3 mg magnesium) tablet TAKE 1 TABLET BY MOUTH TWICE DAILY. TAKE SEPERATELY FROM DOXYCYCLINE aspirin, enteric coated (ASPIRIN, ENTERIC COATED) 81 mg EC tablet Take 81 mg by mouth once daily. Insulin [place], Disposable, (BD ULTRA-FINE RUBIA PEN NEEDLE) 32 gauge x 5/32 ndle BD Ultra-Fine Rubia Pen Needle 32 gauge x 5/32 allopurinol (ZYLOPRIM) 100 mg tablet Take 100 mg by mouth once daily. fluticasone (FLONASE) 50 mcg/actuation nasal spray fluticasone propionate 50 mcg/actuation nasal spray,suspension documented in this encounter [facility] 10-21-2023 Note [facility] 10-11-2023 Telephone encounter Note Discuss JOSE MANUEL [facility] Work Phone: 10-11-2023 Miscellaneous Notes Discuss JOSE AMNUEL documented in this encounter [facility] 10-11-2023 History of Present illness Narrative [facility]YPERT[facility] SERVICE DATE & TIME: October 11, 2023 3:19 PM PRIMARY CARE PHYSICIAN: Aure Little, GUALBERTO, PHARM TECH REASON FOR CONSULT: I am asked to see this patient in consultation for my opinion regarding CKD. My recommendations will be communicated by way of shared medical record, fax, or mail. HPI: Ms. Elias is a 78 yo F PMHx of T2DM, HTN, CAD, left JOSE MANUEL, CHF (EF 21%), ICD placement June 2023, PVD s/p right axillobifemoral bypass 12/2019, severe abdominal aortic stenosis at level of renal arteries, presenting for CKD evaluation. Family Hx of kidney disease: None Hx of Smoking: Former Diet:Ordering out 3 times week. BF: [place], yogurt No TV dinners, soup, prepared foods Caffeine: Coffee 1/week Alcohol: None Activity: Walking. Rec center Home BPs: Yes - CKD: Baseline Cr 1.4 new in 2023, DAV June 2023. Cr up to 1.8 now resolved. Admitted Feb 2024 - newly decreased EF 15%. [facility] Feb 2023 with TRACY. Jardiance (started June 2023) Ozempic (started August 2022) Monitoring BP at home. SBPs 110s Monitoring weight at home 153lbs. Jardiance, lasix 20mg, Toprol 50mg/25mg, Valsartan 20mg Ozempic PAST MEDICAL HISTORY: PAST MEDICAL HISTORY Diagnosis Date Cardiomyopathy (HCC) Claudication (HCC) DM (diabetes mellitus) (HCC) HTN (hypertension) Incontinence NSVT (nonsustained ventricular tachycardia) (HCC) Sciatica Systolic CHF (HCC) PAST SURGICAL HISTORY: PAST SURGICAL HISTORY Procedure Laterality Date CHOLECYSTECTOMY REMV CATARACT EXTRACAP,INSERT LENS Bilateral TOTAL ABDOMINAL HYSTERECT W/WO RMVL TUBE OVARY FAMILY HISTORY: FAMILY HISTORY Problem Relation Age of Onset other (cabg) Mother other (pacemaker) Mother Diabetes Father Lung Cancer Father COPD Brother SOCIAL HISTORY: reports that she has quit smoking. She has never used smokeless tobacco. She reports that she does not currently use alcohol. She reports that she does not use drugs. MEDICATIONS: metoprolol succinate ER (TOPROL XL) 25 mg 24 hr tablet Take 1 tablet by mouth as directed. 50 mg AM and 25 mg PM semaglutide (OZEMPIC) 2 mg/dose (8 mg/3 mL) pen injector Inject 2 mg subcutaneously one time a week. empagliflozin (JARDIANCE) 10 mg tablet Take 1 tablet by mouth daily with breakfast. furosemide (LASIX) 40 mg tablet Take 0.5 tablets by mouth once daily. diazePAM (VALIUM) 2 mg tablet sertraline (ZOLOFT) 50 mg tablet Take 25 mg by mouth once daily. clopidogrel (PLAVIX) 75 mg tablet Take by mouth every 24 hours. valsartan (DIOVAN) 40 mg tablet Take 0.5 tablets by mouth once daily. rosuvastatin (CRESTOR) 40 mg tablet Take 1 tablet by mouth daily at bedtime. blood sugar diagnostic (BLOOD GLUCOSE TEST) test strip Use as instructed to monitor glucose. One touch ultra verio test strips. Blood-Glucose Sensor (FREESTYLE UR 3 SENSOR) mauricio Use new sensor every 14 days to monitor blood glucose. magnesium oxide (MAG-OX) 400 mg (241.3 mg magnesium) tablet TAKE 1 TABLET BY MOUTH TWICE DAILY. TAKE SEPERATELY FROM DOXYCYCLINE aspirin, enteric coated (ASPIRIN, ENTERIC COATED) 81 mg EC tablet Take 81 mg by mouth once daily. Insulin [place], Disposable, (BD ULTRA-FINE RUBIA PEN NEEDLE) 32 gauge x 5/32 ndle BD Ultra-Fine Rubia Pen Needle 32 gauge x 5/32 allopurinol (ZYLOPRIM) 100 mg tablet Take 100 mg by mouth once daily. fluticasone (FLONASE) 50 mcg/actuation nasal spray fluticasone propionate 50 mcg/actuation nasal spray,suspension insulin detemir U-100 (LEVEMIR) 100 unit/mL (3 mL) injection pen Inject 20 Units subcutaneously daily at bedtime. (Patient not taking: Reported on 10/11/2023) ALLERGIES: ALLERGIES Allergen Reactions Penicillins Anaphylaxis, Hives Iodinated Contrast * Other: See Comments Throat itching to some Xray dye >20-30 years ago REVIEW OF SYSTEMS: General no fever no weight loss no fatigue no night sweats Head / Neck no photophobia no epistaxis no chronic nasal congestion no oral ulcers/sores no metallic or bitter taste Cardiac no chest pain or pressure no palpitations no dizziness no lightheadedness no PND no orthopnea no syncope Vascular no edema no claudication no Raynauds Pulmonary no dyspnea on exertion no cough no hemoptysis GI no loss of appetite no nausea no emesis no diarrhea no constipation no abdominal pain URINARY FREQUENCY NOCTURIA no urinary hesitancy no straining no decreased urine no frothy urine no pink or red urine no flank pain no groin pain Musculoskeletal JOINT PAIN Neurologic no parathesias no numbness no tremor no weakness PHYSICAL EXAM: BP 120/76 Pulse 81 Ht 167.6 cm (5' 6 ) Wt 70 kg (154 lb 5.2 oz) BMI 24.91 kg/m BP - standardized method Pulse 1 BP #1: 126/80 Pulse #1: 80 beats/min 2 BP #2 : 122/81 Pulse #2 : 82 beats/min 3 BP #3 : 112/66 Pulse #3 : 83 beats/min Average Average BP: 120/76 Average Pulse: 81 beats/min Standing Standing BP : 103/66 Standing pulse : 91 Constitutional: NAD Eyes: PERRL, Conjunctiva Clear Ear, Nose, and Throat: MM Neck:Trachea midline, No JVD CV: RRR. Normal S1, S2. No murmurs, rubs, or gallops Respiratory: Normal respiratory effort. Lungs clear bilaterally. Abdomen: Soft, non-tender, non-distended. Normal bowel sounds. Psychiatric: Alert and oriented x self, place, time, and setting. Normal mood/affect DATA: Diagnostic tests reviewed for today's visit: CBC: Lab Results Component Value Date WBC 7.79 06/30/2023 HB 12.3 06/30/2023 HCT 39.4 06/30/2023 PLT 199 06/30/2023 BMP: Lab Results Component Value Date NA 141 09/22/2023 K 4.7 09/22/2023 CHLOR 105 09/22/2023 GLUC 108 (H) 09/22/2023 CA 10.0 09/22/2023 RENAL FUNCTION Lab Results Component Value Date BUN 36 (H) 09/22/2023 BUN 30 (H) 08/11/2023 BUN 37 (H) 07/26/2023 CREAT 1.39 (H) 09/22/2023 CREAT 1.44 (H) 08/11/2023 CREAT 1.85 (H) 07/26/2023 EGFRAA >60 02/21/2021 EGFRAA >60 08/14/2020 EGFRAA >60 04/02/2020 EGFROTH 39 (L) 09/22/2023 EGFROTH 38 (L) 08/11/2023 EGFROTH 28 (L) 07/26/2023 ACID/BASE Lab Results Component Value Date CO2 27 09/22/2023 ALB 3.7 (L) 02/17/2023 ANION 9 09/22/2023 BONE/MINERAL METABOLISM Lab Results Component Value Date CA 10.0 09/22/2023 P 3.2 01/04/2020 IRON STUDIES No results found for: FE , TIBC , TRANSFERSAT , EDVIN DIABETES Lab Results Component Value Date HBA1C 5.4 06/02/2023 LIPIDS: Lab Results Component Value Date CHOL 103 12/15/2022 HDL 41 12/15/2022 LDL 33 12/15/2022 TG 145 12/15/2022 LDLHDL 0.80 12/15/2022 Lab Results Component Value Date UALBCR 90 (H) 07/27/2023 CTA: 2019 There is a single right renal artery. Right renal artery demonstrates nosignificant focal stenosis. There is a single left renal artery. Left renal artery demonstrates moderate to severe ostial stenosis secondary to bulky atherosclerotic calcifications involving the abdominal aorta. ASSESSMENT: Ms. Elias is a 78 yo F PMHx of T2DM, HTN, CAD, CHF (EF 21%), left JOSE MANUEL, ICD placement June 2023, PVD s/p right axillobifemoral bypass 12/2019, severe abdominal aortic stenosis at level of renal arteries, presenting for CKD evaluation. CKD Stage IIIB: Pending urinalysis. Discussed CKD in setting of CRS physiology. Caution with IV contrast. Discuss with Nephrology Left JOSE MANUEL: No intervention. BP controlled. HTN/Volume: BP controlled. No change to medications. Volume status controlled. Reviewed maintaining low salt diet. Reviewed increasing activity level as able. Chronic systolic HF: EF 21%. Compensated currently. Vitamin D Def: Will check 25-Vitamin D, PTH, Ca, Phos. Anemia: Hgb at goal for CKD. Continue to monitor CBC and Fe studies as needed. Cholesterol: Goal LDL < 100 in CKD patients. PLAN: Discussed CKD staging and prognosis, Discussed management of CHF to prevent CKD progression. Discussed lifestyle changes including cooking at home, avoiding processed foods Monitor weight, alert if weight >160lbs. She is aware of prn diuretic use Follow up virtual 6 months I spent a total of 65 minutes on the date of the service which included preparing to see the patient, [id number] patient care, completing clinical documentation, ordering medications, tests, or procedures, independently interpreting results (not separately reported), and communicating results to the patient/family/caregiver. SIGNATURE: Arpita Paris MD. PATIENT NAME: Arleth Elias DATE & TIME: October 11, 2023 3:25 PM OFFICE NUMBER: [phone] CC: REFERRING PROVIDER: Myesha Cheng PA-C PRIMARY CARE PHYSICIAN: Aure Little CNP, PHARM TECH documented in this encounter [facility] 10-11-2023 Note [facility] 10-11-2023 Telephone encounter Note A form has been received from [employer] for [facility] note. Faxed [facility] note 06/02/23 and last downloaded CGM log to [phone]. Confirmation received [facility] 10-11-2023 Miscellaneous Notes A form has been received from [employer] for [facility] note. Faxed [facility] note 06/02/23 and last downloaded CGM log to [phone]. Confirmation received documented in this encounter [facility] 10-07-2023 Note [facility] 10-07-2023 History of Present illness Narrative Images from the original note were not included. [facility] [place] Elsy Yañez Department of Cardiovascular Medicine SECTION OF CARDIAC PACING and ELECTROPHYSIOLOGY OUTPATIENT VISIT DATE [facility] June 15, 2023 October 07, 2023 OUTPATIENT VISIT TYPE EST PRIMARY CARE PHYSICIAN: Aure Little CNP ([place]) [address] [place] [address] REFERRING PHYSICIAN: Aure Little CNP ([place]) [address] [place] [address] CHIEF COMPLAINT: Severe LV dysfunction, wide QRS complex (left bundle branch block) --status post BERRY GROWER with excellent paced QRS morphology HISTORY OF PRESENT ILLNESS: Ms. Elias is a delightfully pleasant 78 year old female with hypertension, diabetes, history of cardiomyopathy with LV dysfunction (back in 2019, with subsequent recovery and normalization of EF), peripheral arterial disease (aortoiliac disease status post Right axillobifemoral bypassbypass) --- who was hospitalized in February 2023 with decompensated heart failure and found to have severely impaired LV systolic function. She has been under the care of of Dr. Pritchard and cristopher and currently strictly compliant with excellent GDMT. She is referred to EP for consideration of primary prevention ICD therapy, and BERRY GROWER. Underwent implant of a biventricular ICD in June 2023. She noticed almost immediately after an improvement in dyspnea, and energy level. She denies chest pain, shortness of breath, orthopnea, cough, edema, palpitations, PND, lightheadedness or syncope. PAST CARDIAC HISTORY: PAST MEDICAL HISTORY Diagnosis Date Cardiomyopathy (HCC) Claudication (HCC) DM (diabetes mellitus) (HCC) HTN (hypertension) Incontinence NSVT (nonsustained ventricular tachycardia) (HCC) Sciatica Systolic CHF (HCC) PAST SURGICAL HISTORY Procedure Laterality Date CHOLECYSTECTOMY REMV CATARACT EXTRACAP,INSERT LENS Bilateral TOTAL ABDOMINAL HYSTERECT W/WO RMVL TUBE OVARY SOCIAL HISTORY Social History Tobacco Use Smoking status: Former Smokeless tobacco: Never Tobacco comments: Social for approx 1 year around age 36 Vaping Use Vaping Use: Never used Substance Use Topics Alcohol use: Not Currently Drug use: Never FAMILY HISTORY Problem Relation Age of Onset other (cabg) Mother other (pacemaker) Mother Diabetes Father Lung Cancer Father COPD Brother ALLERGIES: ALLERGIES Allergen Reactions Penicillins Anaphylaxis, Hives Iodinated Contrast * Other: See Comments Throat itching to some Xray dye >20-30 years ago MEDICATIONS: semaglutide (OZEMPIC) 2 mg/dose (8 mg/3 mL) pen injector Inject 2 mg subcutaneously one time a week. empagliflozin (JARDIANCE) 10 mg tablet Take 1 tablet by mouth daily with breakfast. furosemide (LASIX) 40 mg tablet Take 0.5 tablets by mouth once daily. metoprolol succinate ER (TOPROL XL) 25 mg 24 hr tablet Take 1 tablet by mouth two times a day. diazePAM (VALIUM) 2 mg tablet sertraline (ZOLOFT) 50 mg tablet Take 25 mg by mouth once daily. clopidogrel (PLAVIX) 75 mg tablet Take by mouth every 24 hours. valsartan (DIOVAN) 40 mg tablet Take 0.5 tablets by mouth once daily. rosuvastatin (CRESTOR) 40 mg tablet Take 1 tablet by mouth daily at bedtime. magnesium oxide (MAG-OX) 400 mg (241.3 mg magnesium) tablet TAKE 1 TABLET BY MOUTH TWICE DAILY. TAKE SEPERATELY FROM DOXYCYCLINE aspirin, enteric coated (ASPIRIN, ENTERIC COATED) 81 mg EC tablet Take 81 mg by mouth once daily. allopurinol (ZYLOPRIM) 100 mg tablet Take 100 mg by mouth once daily. insulin detemir U-100 (LEVEMIR) 100 unit/mL (3 mL) injection pen Inject 20 Units subcutaneously daily at bedtime. blood sugar diagnostic (BLOOD GLUCOSE TEST) test strip Use as instructed to monitor glucose. One touch ultra verio test strips. Blood-Glucose Sensor (FREESTYLE RU 3 SENSOR) mauricio Use new sensor every 14 days to monitor blood glucose. Insulin [place], Disposable, (BD ULTRA-FINE RUBIA PEN NEEDLE) 32 gauge x 5/32 ndle BD Ultra-Fine Rubia Pen Needle 32 gauge x 5/32 fluticasone (FLONASE) 50 mcg/actuation nasal spray fluticasone propionate 50 mcg/actuation nasal spray,suspension REVIEW OF SYSTEMS: GENERAL: Negative for: Weight loss or gain, Fever or Chills, Weakness and Sleep difficulties. HEENT: Negative for: Headache, Impaired Vision, Glasses, Hearing Impairment, Ringing in Ears, Nosebleeds, Poor dental care, Bleeding Gums, Dentures NECK: Negative for: Swelling, Pain, Stiffness RESPIRATORY: Negative for: Cough, Blood in Sputum, Shortness of breath, Wheezing, Apnea GASTROINTESTINAL: Negative for: Trouble swallowing, Heartburn, Change in bowel habits, Blood in stool, Dark black stools MUSCULOSKELETAL: Negative for: Muscle or joint pain, Stiffness , Joint swelling NEUROLOGIC/PSYCHIATRIC: Negative for: Weakness, Paralysis, Numbness, Tingling, Tremor, Nervousness, Depressed mood, Memory loss SKIN: Negative for: Rashes, Itching HEMATOLOGICAL/LYMPHATIC: Negative for: Easy bruising , Easy bleeding ENDOCRINE: Negative for: Heat or cold intolerance, Excessive sweating, Frequent urination, Frequent thirst PHYSICAL EXAMINATION: BP 142/80 Pulse 75 Ht 167.6 cm (5' 6 ) Wt 69.4 kg (153 lb) BMI 24.69 kg/m BP w/Orthostatic Vitals Date and Time Orthostatic BP Orthostatic Pulse BP Pulse BP Position BP Site BP Cuff Size 06/15/23 1419 -- -- 125/82 93 -- -- -- General: Well appearing, in no acute distress. Skin: No clubbing, no cyanosis. Eyes: Extra ocular movements intact Oropharynx: Teeth in good repair. Neck: No jugular venous distention, no carotid bruits, carotids have a normal upstroke, no palpable thyromegaly. Lungs: Clear to auscultation bilaterally, no wheezing or rhonchi. Heart: Regular rhythm, PMI not displaced, S1, S2 normal, no S3, no S4, no heaves, no rub and no murmur. Chest: Left-sided device Abdomen: Soft, nontender, bowel sounds normal, no palpable organomegaly, no bruits. Extremities: No peripheral edema . Grade 2/4 distal pulses bilaterally. Neuro: Oriented to person, place and time, alert, cooperative, gait coordinated. CARDIOVASCULAR MEDICINE TESTING: Creatinine 1.49, electrolytes normal BNP 6000 TSH 3.8 Consistent with LBBB Today's ECG shows BiV paced QRS morphology consistent with BERRY GROWER, duration of the QRS is 100 ms) Reviewed echocardiogram with Dr. Cameron --though EF remains depressed, there is improvement in septal contractility, there appears to be less dyssynchrony., Mitral regurgitation is also less. [facility] 02/2023 [place] Coronary Artery Disease in the LAD (Severe) and LCX (Mild) Successful PCI of LAD I have personally reviewed the Electrocardiogram, Chest X-ray, Laboratory Testing, and Echocardiogram. Assessment IMPRESSION: Ms. Elias is a 78 year old female with hypertension, diabetes, history of cardiomyopathy with LV dysfunction (back in 2019, with subsequent recovery and normalization of EF), peripheral arterial disease (aortoiliac disease status post Right axillobifemoral bypassbypass) --- recent decompensated heart failure with hospitalization in February 2023. Found to have severe LV dysfunction EF 30%. Underwent coronary revascularization without notable improvement. Interestingly coinciding with this significant drop in LV systolic function, he has marked widening of the QRS complex (greater than 160 ms). Some but not all ECGs show a pattern consistent with a complete left bundle branch block morphology. She is currently on maximum GDMT. In the interim she underwent implant of a biventricular ICD. She notes significant improvement in symptoms, now NYHA class II (previously NYHA class III). Echo, even though EF remains depressed, there is overall improved contractility with less dyssynchrony. Mitral regurgitation is also improved. I do think she is responding quite nicely to BERRY GROWER. Will continue to monitor quarterly with remotes. And annual in person visits. To further optimize GDMT, I increased Toprol to 50 mg in the morning and 25 mg in the evening. Annual with EP team CONTACT INFORMATION: Afshan Deng MD Okay thank you make sure I do it before I leave yeayaan I had received her documented in this encounter [facility] 10-07-2023 Nurse Note IV Access: IV IV Site: right Antecubital IV GAUGE 22 gauge IV Removal Date October 07, 2023 Time 11:08 AM Reactions: WNL Order reviewed by nurse:yes Medications: Definity - dosage 2mL Reaction: No LOT: [id number] EXP: 07/2024 [facility] [place] #[id number] MFG: [email or web address] [facility] 10-07-2023 Nurse Note IV Access: IV IV Site: right Antecubital IV GAUGE 22 gauge IV Removal Date October 07, 2023 Time 11:08 AM Reactions: WNL Order reviewed by nurse:yes Medications: Definity - dosage 2mL Reaction: No LOT: [id number] EXP: 07/2024 [facility] #[id number] MFG: [employer] documented in this encounter [facility] 09-24-2023 Telephone encounter Note Spoke to patient, She will be in next week for citrus picker. [facility] 09-24-2023 Miscellaneous Notes Spoke to patient, She will be in next week for citrus picker. Pt identified by name and Pt given message below Stated understanding Pt asking if paperwork has been signed- she lives an hour away and will citrus picker once signed Would like to citrus picker today Patient assistance medication from Omid nordisk received for 4bxs of Ozempic Patient assistance form completed per protocol Placed form on mikel's desk to sign documented in this encounter [facility] 09-24-2023 Telephone encounter Note Pt identified by name and Pt given message below Stated understanding Pt asking if paperwork has been signed- she lives an hour away and will citrus picker once signed Would like to citrus picker today [facility] 09-23-2023 Telephone encounter Note Patient assistance medication from Omid nordisk received for 4bxs of Ozempic Patient assistance form completed per protocol Placed form on mikel's desk to sign [facility] 09-10-2023 Telephone encounter Note Noted [facility] 09-10-2023 Miscellaneous Notes Noted documented in this encounter [facility] 08-03-2023 Charmaine Partida APRN.PHARM TECH - 08/03/2023 2:16 PM EDT ERASMO Evaluation: - Sleep apnea is a serious sleep disorder that occurs when a person's breathing is interrupted during sleep. People with untreated sleep apnea stop breathing repeatedly during their sleep, sometimes hundreds of times during the night. - The most common type of sleep apnea is obstructive sleep apnea. - If left untreated, obstructive sleep apnea can result in a number of health problems including hypertension, stroke, arrhythmias, cardiomyopathy (enlargement of the muscle tissue of the heart), heart failure, diabetes, obesity, and heart attacks. - Treatment options for obstructive sleep apnea may include positive airway pressure (PAP) therapy, oral appliance, hypoglossal nerve stimulator, nose/throat surgery, weight loss, side sleeping, or avoidance of medications or substances that can relax the airway muscles (alcohol, benzodiazepines, and opioids). PLAN: - Home Sleep Apnea Test (HST) to evaluate for obstructive sleep apnea. You need to call to schedule this. [phone]. - Discussed with the patient the possible diagnosis, causes, and conditions associated with obstructive sleep apnea. - Avoid driving when drowsy. Recommend that if you are dozing off while driving, that you do not drive until your sleepiness is appropriately treated. -Encouraged healthy lifestyle with adequate sleep ( 7-9 hours per night), diet and exercise. - Results are usually available within 7-10 business days. - Will order pap therapy based on HSAT results to a DME company of your choice. Please find that out prior to our visit. [facility] Requirements - Your insurance requires a [id number] follow up visit within a 31-90 day period after starting CPAP. - Your insurance requires compliance with CPAP, which is at least 4 hours per night for 70% of the time. This must be done over a 30 day period and must occur within the initial 31-90 day period after starting CPAP. - Your insurance also requires at least yearly follow ups to continue to pay for CPAP supplies. PAP Supply Guidelines Below are the guidelines for reordering your supplies. You will be responsible for your deductible, co-payments, and out of pocket expenses. Item Medicare & Commercial Insurance Medicaid & HCAP Nasal Mask (no headgear) 1 every 3 months 1 per year Nasal Mask Cushion 1 every month 2 per year Full Face Mask (no headgear) 1 every 3 months 1 per year Full Face Mask Cushion 1 every month *Self-Pay Nasal Pillows 2 every month 2 per year Headgear 1 every 6 months 1 per year Chin Strap 1 every 6 months 2 per year Tubing 1 every 3 months 1 per year Filters: Reusable 1 every 6 months 4 per year Filters: Disposable 2 every month 1 per month Humidifier Chamber(disposable) 1 every 6 months *Self-Pay documented in this encounter [facility] 08-03-2023 History of Present illness Narrative Images from the original note were not included. [facility] Follow up/ Established patient visit Date of last visit : 09/25/2021 IMPRESSION/PLAN: G47.33 Obstructive sleep apnea (primary encounter diagnosis) G47.33 Obstructive sleep apnea syndrome I10 Essential hypertension E78.2 Mixed hyperlipidemia I50.20 Systolic heart failure, unspecified HF chronicity (HCC) I42.9 Cardiomyopathy, unspecified type (HCC) I25.10 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 E11.51, Z79.4 Type 2 diabetes mellitus with diabetic peripheral angiopathy without gangrene, with long-term current use of insulin (HCC) E66.09, Z68.32 Class 1 obesity due to excess calories with serious comorbidity and body mass index (BMI) of 32.0 to 32.9 in adult This is a pleasant 75 yo female with a PMH of ERASMO not on PAP therapy, CAD, HTN, HLD, DM2, CHF, cardiomyopathy and obesity who presents via virtual visit as a new patient to establish care with sleep medicine for ERASMO. She had a PSG completed in 2019 at OSH that showed moderate ERASMO with an AHI of 22 events per hour. Her average oxygen saturation was 92%, with a minimum of 80 %. She reports these results were never discussed with her and therapy was never started. She cannot recall why the test was performed. Pathophysiology, risks, and complications of untreated sleep apnea were discussed, including the potential long-term metabolic, neurocognitive, and cardiovascular implications. Repeat testing is necessary as prior results are over 2 years old. All questions were answered. - Home Sleep Apnea Test (HST) to evaluate for obstructive sleep apnea. - Discussed with the patient the possible diagnosis, causes, and conditions associated with obstructive sleep apnea. - Avoid driving when drowsy. Recommend that if you are dozing off while driving, that you do not drive until your sleepiness is appropriately treated. -Encouraged healthy lifestyle with adequate sleep ( 7-9 hours per night), diet and exercise. - Results are usually available within 7-10 business days. . - Follow up visit 2-3 weeks after your sleep study to review results and discuss next steps. Charmaine Barth APRN.PHARM TECH I have communicated my name and active licensure. The patient's identity and physical location were verified at the time of this visit. Either the patient or their legal field support representative has been informed of the risks and benefits of -- and alternatives to -- treatment through a remote evaluation and consents to proceed with the evaluation remotely. Interval history : Here for follow up for follow-up to discuss management of sleep apnea. She has not been seen since September 2021. She completed the ordered home sleep study after that visit on 10/16/2021. The study recorded 436 minutes. There were a total of 179 respiratory events, consisting of 13 apneas and 176 hypopneas. The MIRANDA was 24.6. Her mean oxygen saturation was 87%, with a minimum of 76%. She has no recollection of how she slept that night. Since last visit she has had a pacemaker. She reports her home organizer sent a prescription for her to obtain a PAP device, however she did not get one. SLEEP HYGIENE QUESTIONS: Bedtime : 10-11:00 pm Wake up Time : 6:00 Time it takes to fall sleep : does not have a hard time falling asleep Number of times patient wakes up per night : 1 Reason (s) why patient wakes up during the night : bathroom Estimated total sleep time ( in a 24 hour period of time) : 6-7 hours Naps : No PATIENT-ENTERED QUESTIONNAIRE SLEEP SCORES 01/20/2022 Sleep Questions Reason for visit: Sleep apnea On average, hours of sleep in 24 hours: 6 Accidents or near accidents due to drowsy drivin 01/20/2022 [place] Sleepiness Scale Score 1 (No daytime sleepiness) 12/03/2019 09/18/2020 01/20/2022 PROMIS CAT Sleep Disturbance PROMIS Sleep Disturbance T-Score 54 (within normal limits) 66 (moderate) 54 (within normal limits) PROMIS Sleep Disturbance Percentile 5 34 03/03/2020 09/18/2020 01/20/2022 PHQ-9 Score 4 9 2 06/22/2022 11/01/2022 01/21/2023 PROMIS Global Health - (T-Scores - the mean of general population = 50. Five points is a clinically meaningful difference.) Physical T-Score 34.9 37.4 37.4 Mental T-Score 50.8 41.1 41.1 PMH, PSH, SH: reviewed SLEEP RELATED ROS Review of Systems Constitutional: Negative. Respiratory: Negative. Cardiovascular: Negative. Gastrointestinal: Negative for heartburn. Neurological: Negative for headaches. ALLERGIES Allergen Reactions Penicillins Anaphylaxis, Hives Iodinated Contrast * Other: See Comments Throat itching to some Xray dye >20-30 years ago CURRENT MEDICATIONS: empagliflozin (JARDIANCE) 10 mg tablet Take 1 tablet by mouth daily with breakfast. furosemide (LASIX) 40 mg tablet Take 0.5 tablets by mouth once daily. metoprolol succinate ER (TOPROL XL) 25 mg 24 hr tablet Take 1 tablet by mouth two times a day. diazePAM (VALIUM) 2 mg tablet sertraline (ZOLOFT) 50 mg tablet Take 25 mg by mouth once daily. clopidogrel (PLAVIX) 75 mg tablet Take by mouth every 24 hours. insulin detemir U-100 (LEVEMIR) 100 unit/mL (3 mL) injection pen Inject 20 Units subcutaneously daily at bedtime. (Patient not taking: Reported on 07/15/2023) semaglutide (OZEMPIC) 2 mg/dose (8 mg/3 mL) pen injector Inject 2 mg subcutaneously one time a week. valsartan (DIOVAN) 40 mg tablet Take 0.5 tablets by mouth once daily. rosuvastatin (CRESTOR) 40 mg tablet Take 1 tablet by mouth daily at bedtime. blood sugar diagnostic (BLOOD GLUCOSE TEST) test strip Use as instructed to monitor glucose. One touch ultra verio test strips. Blood-Glucose Sensor (FREESTYLE RU 3 SENSOR) mauricio Use new sensor every 14 days to monitor blood glucose. CPAP/BIPAP/OTHER Type .CPAPSettings into a note to see current settings/supplies/DME information. (Patient not taking: Reported on 07/27/2023) magnesium oxide (MAG-OX) 400 mg (241.3 mg magnesium) tablet TAKE 1 TABLET BY MOUTH TWICE DAILY. TAKE SEPERATELY FROM DOXYCYCLINE aspirin, enteric coated (ASPIRIN, ENTERIC COATED) 81 mg EC tablet Take 81 mg by mouth once daily. Insulin [place], Disposable, (BD ULTRA-FINE RUBIA PEN NEEDLE) 32 gauge x 5/32 ndle BD Ultra-Fine Rubia Pen Needle 32 gauge x 5/32 allopurinol (ZYLOPRIM) 100 mg tablet Take 100 mg by mouth once daily. fluticasone (FLONASE) 50 mcg/actuation nasal spray fluticasone propionate 50 mcg/actuation nasal spray,suspension PHYSICAL EXAMINATION: Neurological exam: Patient approapriately answering questions. Language function normal. Memory normal. Speech fluent. IMPRESSION: Obstructive sleep apnea syndrome (primary encounter diagnosis) Essential hypertension Mixed hyperlipidemia Type 2 diabetes mellitus with diabetic peripheral angiopathy without gangrene, with long-term current use of insulin ([facility]) 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 Cardiomyopathy, unspecified type ([facility]) Systolic heart failure, unspecified hf chronicity ([facility]) Class 1 obesity due to excess calories with serious comorbidity and body mass index (bmi) of 32.0 to 32.9 in adult Intermittent claudication of both lower extremities due to atherosclerosis ([facility]) Acute heart failure with reduced ejection fraction and diastolic dysfunction ([facility]) Aortoiliac occlusive disease ([facility]) Chronic systolic congestive heart failure ([facility]) Hfref (heart failure with reduced ejection fraction) ([facility]) Lbbb (left bundle branch block) Status post angioplasty with stent This is a pleasant 77 yo F with a PMH of ERASMO, CHF, LBBB, cardiomyopathy pacemaker, HTN, DM and HLP who presents virtually for follow up of ERASMO. She was last seen in 2021 and ordered HSAT, there has not been follow up. She notes her home organizer ordered PAP therapy twice, however she never received device. Pathophysiology, risks, and complications of untreated sleep apnea were discussed, including the potential long-term metabolic, neurocognitive, and cardiovascular implications. Will need to repeat sleep study as it is > 1 year old. Discussed next steps will be to order pap therapy and the follow up requirements. She will detereminewhich DME she would like to use prior to follow up. All questions were answered. PLAN: - Home Sleep Apnea Test (HST) to evaluate for obstructive sleep apnea. You need to call to schedule this. [phone]. - Discussed with the patient the possible diagnosis, causes, and conditions associated with obstructive sleep apnea. - Avoid driving when drowsy. Recommend that if you are dozing off while driving, that you do not drive until your sleepiness is appropriately treated. -Encouraged healthy lifestyle with adequate sleep ( 7-9 hours per night), diet and exercise. - Results are usually available within 7-10 business days. - Will order pap therapy based on HSAT results to a DME company of your choice. Please find that out prior to our visit. Charmaine Barth APRN.GUALBERTO I spent a total of 30 minutes on the date of the service which included preparing to see the patient, [id number] patient care, completing clinical documentation, counseling and educating the patient/family/caregiver, ordering medications, tests, or procedures, and communicating results to the patient/family/caregiver. documented in this encounter [facility] 08-03-2023 Note [facility] 07-27-2023 Note [facility] 07-27-2023 History of Present illness Narrative Images from the original note were not included. Heart and Vascular [facility] SECTION OF HEART FAILURE and CARDIAC TRANSPLANT MEDICINE [facility] OUTPATIENT VISIT DATE July 27, 2023 OUTPATIENT VISIT TYPE Established PRIMARY CARE PHYSICIAN: Aure Little CNP ([facility]) [address] [place] [address] CHIEF COMPLAINT: Follow up post BERRY GROWER-D HISTORY OF PRESENT ILLNESS: Arleth Elias is a 77 year old female with a medical history that includes heart failure with recovered LVEF (25% --> 61%) and newly reduced again, CAD now s/p PCI to LAD 02/2023, HTN, HLD PVD s/p right axillobifemoral bypass 12/2019, DM who follows with Dr. Pritchard. She has a hx of NICM since 2019, LVEF ana maria 35%, ischemic work up at that time with non-obstructive CAD. She was managed on medication and LVEF had improved to ~ 60% 03/2020 and in 09/2022 LVEF noted to be ~ 48-50%. She was then admitted with decompensated HF in Feb and Echo with LVEF noted to be 25-30%. S/p LHC with discrete ~70% LAD lesion, + iFR s/p PCI with TRACY. 05/31 - initial visit with me. Appeared volume up with soft BP's - diuretics increased and referral to EP for BERRY GROWER-D 06/14 - follow up for volume assessment - sxs slightly improved and saw EP with plans for BERRY GROWER -D. Interval History: Arleth Elias was last seen in this clinic on 06/15/23. Since the last visit Arleth Elias is not s/p BERRY GROWER-D. On follow up today, she reports feeling well overall. She notes that she had a few days or feeling a bit short of breath that has now gone away. No orthopnea, no PND, no lightheadedness, no nausea, vomiting, no no syncope, no bleeding, no palpitations, no chest pain/pressure/discomfort. She is able to go up multiple flights of stairs without having any difficulty. Weights: 155lbs Activity/Exercise: Does pool therapy but hasn't resumed it as yet. States she needs a note from an MD regarding resuming pool therapy due to the water being 92 degree F. Home BP: 100s/80s. Occasionally in the 115s. CV Problem List/Medical History: Heart failure with reduced EF: suspect mostly non-ischemic CM with obstructive mLAD disease. S/p BERRY GROWER-D 07/02/23 Echo 05/25/23: LVEF 20%, LVEDd 6.1cm, severe MR/TR, IVC dilated. Echo 02/2023: LVEF 30%, RV wnl. LVEdd 5.8cm. CAD s/p PCI to mLAD with TRACY 02/2023 PVD s/p right axillobifemoral bypass 12/2019 DM: PAST MEDICAL HISTORY Diagnosis Date Cardiomyopathy (HCC) Claudication (HCC) DM (diabetes mellitus) (HCC) HTN (hypertension) Incontinence NSVT (nonsustained ventricular tachycardia) (HCC) Sciatica Systolic CHF (HCC) PAST SURGICAL HISTORY Procedure Laterality Date CHOLECYSTECTOMY REMV CATARACT EXTRACAP,INSERT LENS Bilateral TOTAL ABDOMINAL HYSTERECT W/WO RMVL TUBE OVARY SOCIAL HISTORY Social History Tobacco Use Smoking status: Former Smokeless tobacco: Never Tobacco comments: Social for approx 1 year around age 36 Vaping Use Vaping Use: Never used Substance Use Topics Alcohol use: Not Currently Drug use: Never FAMILY HISTORY Problem Relation Age of Onset other (cabg) Mother other (pacemaker) Mother Diabetes Father Lung Cancer Father COPD Brother ALLERGIES: ALLERGIES Allergen Reactions Penicillins Anaphylaxis, Hives Iodinated Contrast * Other: See Comments Throat itching to some Xray dye >20-30 years ago CURRENT MEDICATIONS: furosemide (LASIX) 40 mg tablet Take 1 tablet by mouth once daily. diazePAM (VALIUM) 2 mg tablet empagliflozin (JARDIANCE) 10 mg tablet Take 1 tablet by mouth daily with breakfast. sertraline (ZOLOFT) 50 mg tablet Take 25 mg by mouth once daily. clopidogrel (PLAVIX) 75 mg tablet Take by mouth every 24 hours. insulin detemir U-100 (LEVEMIR) 100 unit/mL (3 mL) injection pen Inject 20 Units subcutaneously daily at bedtime. (Patient not taking: Reported on 07/15/2023) semaglutide (OZEMPIC) 2 mg/dose (8 mg/3 mL) pen injector Inject 2 mg subcutaneously one time a week. valsartan (DIOVAN) 40 mg tablet Take 0.5 tablets by mouth once daily. rosuvastatin (CRESTOR) 40 mg tablet Take 1 tablet by mouth daily at bedtime. metoprolol succinate ER (TOPROL XL) 25 mg 24 hr tablet Take 1 tablet by mouth once daily. blood sugar diagnostic (BLOOD GLUCOSE TEST) test strip Use as instructed to monitor glucose. One touch ultra verio test strips. Blood-Glucose Sensor (FREESTYLE RU 3 SENSOR) mauricio Use new sensor every 14 days to monitor blood glucose. CPAP/BIPAP/OTHER Type .CPAPSettings into a note to see current settings/supplies/DME information. magnesium oxide (MAG-OX) 400 mg (241.3 mg magnesium) tablet TAKE 1 TABLET BY MOUTH TWICE DAILY. TAKE SEPERATELY FROM DOXYCYCLINE aspirin, enteric coated (ASPIRIN, ENTERIC COATED) 81 mg EC tablet Take 81 mg by mouth once daily. Insulin [place], Disposable, (BD ULTRA-FINE RUBIA PEN NEEDLE) 32 gauge x 5/32 ndle BD Ultra-Fine Rubia Pen Needle 32 gauge x 5/32 allopurinol (ZYLOPRIM) 100 mg tablet Take 100 mg by mouth once daily. fluticasone (FLONASE) 50 mcg/actuation nasal spray fluticasone propionate 50 mcg/actuation nasal spray,suspension REVIEW OF SYSTEMS: 10 point review of systems completed and negative unless mentioned above. PATIENT ENTERED DATA: No data to display 03/03/2020 09/18/2020 01/20/2022 PHQ-9 Score 4 9 2 06/22/2022 11/01/2022 01/21/2023 PROMIS Global Health - (T-Scores - the mean of general population = 50. Five points is a clinically meaningful difference.) Physical T-Score 34.9 37.4 37.4 Mental T-Score 50.8 41.1 41.1 PHYSICAL EXAMINATION: BP 114/77 Pulse 86 Wt 155 lb 1.6 oz (70.4kg) SpO2 96[RA]% General: well developed, well nourished female in no acute distress. Neck: supple, no carotid bruits. JVD <6 cm H2O. Cardiac: Regular rate and rhythm. Normal S1 and S2. No S3 or S4. No murmurs or gallops. Device site with no ecchymoses etc. Lungs: Good inspiratory effort, breath sounds equal. Clear to auscultation bilaterally. No wheezing, rhonchi or rales. Abdominal: soft, nontender, non-distended. Normal bowel sounds. Extremities: Edema: none Pulses: normal radial and posterior tibial artery pulses. Normal capillary refill. Skin: Warm to touch. No clubbing or cyanosis. Neuro: awake, oriented with no focal neurological deficit. Psychiatric: appropriate mood and affect for her clinical situation. CARDIOVASCULAR MEDICINE TESTING: I personally reviewed the following testing. EKG (07/15/23): A sensed, V paced. QRS 106 Device eval 07/15/23 OTHER DIAGNOSTICS: RA pacing 0.3% Total V pacing 97.9%, VSR paced 1.8%, VS 0.3%. Adaptive BERRY GROWER shows BiV pacing 1.8%, LV pacing 98.2%. LABS Recent Labs 07/26/23 0927 NA 141 K 4.8 BUN 37* CREAT 1.85* GLUC 113* ADONAY High Sensitivity 17 02/16/2023 ADONAY High Sensitivity 16 02/16/2023 ADONAY High Sensitivity 16 02/16/2023 Cholesterol, Total (mg/dL) Date Value 12/15/2022 103 08/14/2020 119 HDL Cholesterol (mg/dL) Date Value 12/15/2022 41 08/14/2020 47 LDL Cholesterol (mg/dL) Date Value 12/15/2022 33 08/14/2020 43 Triglyceride (mg/dL) Date Value 12/15/2022 145 08/14/2020 144 @RESUFAST)HBA1C)@ TSH 3.830 06/09/2023 No results found for: FE , SAT , TIBC , EDVIN GDMT: - BB: toprol XL 25mg daily - ACEI/ARB/ARNI: valsartan 20mg daily - MRA: no - SGLT2: jardiance 10mg daily - Vasodilators: no - Device: BERRY GROWER-D - Cardiomems: no - Other: lasix 40mg daily IMPRESSION and PLAN/Recommendation In summary, Arleth Elias is a 77 year old being managed today for the following issues: 1. Non-ischemic Cardiomyopathy/chronic systolic heart failure: NYHA functional class III, Stage C heart failure, Clinical Class B - warm and euvolemic. Etiology: non-ischemic with CAD. GDMT: Increase toprol XL to 25mg BID (goal HR <70); Continue with jardiance 10mg daily, valsartan 20mg daily for now and hold lasix for a few days and resume at lower dose of 20mg daily. Will recheck labs in 2 wks and if needed will make prn. Echo post device implant ordered for September - to be seen by Dr. Polk then and soon after Dr. Pritchard. Can follow up with me in 4-5 months 2. CAD s/p PCI with TRACY to mLAD 02/2023 Continue with DAPT and statin. Following with Dr. Pritchard. 3. Pulmonary HTN: likely due to group 2. 4. DAV: Cr remains mildly elevated to ~ 1.9. Decreasing lasix as above. Has nephrology appt in a few months. Thank you for allowing me to participate in the care of your patient. I will continue to follow up with Arleth Elias in my heart failure clinic with plans to see her back in 4-5 months. In the interim do not hesitate to reach out to me with questions or concerns. We discussed natural history of disease, current treatment options, and future potential treatment options. We discussed diet, exercise, other non-medical management as above. Stanley Strange MD [facility] Product Development Worker [facility] [place] [address] Appointment: [phone] documented in this encounter [facility] 07-27-2023 Instructions Stanley Strange MD - 07/27/2023 1:15 PM EDT Thank you for your visit. It was great to see you today! PLEASE READ ALL THE INSTRUCTIONS Medication changes: Hold lasix for 2 days. Resume at 20mg daily Increase metoprolol to 25mg BID Blood tests: labs in 2 wks Referral to other specialties: Additional Testing: Follow up Visit: 4-6 months Other instructions: Engage in 30 minutes of continuous exercise at least 4 days per week if you can tolerate Please take your blood pressures, heart rate, and weight daily. Please notify us via [employer] if your Systolic BP (top number) < 90 or > 150 consistently. Please record these values and bring them during your next clinic visit so we can adjust your medications appropriately. If blood work or testing is done at an outside facility please send us a message to clarify if we have received the labs. If you have not heard from us regarding lab work or follow up testing please send us a message to ensure that we have received the tests. If you notice a 3 lbs weight gain within 3 days, please call our office for further instructions. Limit the amount of salt intake to less than 2 grams (or 2000 mg) and fluid intake to less than 2 liters (~60 ounces) a day. Please notify if you have any change in medical conditions/new diagnosis/hospitalizations. Your medications may interact with new medication or new diagnosis. Please notify your providers to check/monitor for interractions Avoid NSAIDS- Ibuprofen, aleve, motrin inview of heart kidney injury risk Please send a [employer] message or call with any questions or concerns: Outpatient Number: [phone] Thank you, Stanley Strange MD [facility] [place] [address] documented in this encounter [facility] 04-04-2024 Instructions Myesha Cheng PA-C - 07/15/2023 1:47 PM EDT - ok to increase lifting some on the left arm - 1 more week before you can lift left arm above shoulder level - Remote pacer checks every 3 months will be in mychart - Update echo in the month of September to re-look at heart function - See if we can coordinate appt with Dr Polk with a device check also in September Myesha Cheng PA-C documented in this encounter [facility] 07-15-2023 History of Present illness Narrative Images from the original note were not included. [facility] [place] [facility] Elsy Yañez Department of Cardiovascular Medicine SECTION OF CARDIAC PACING and ELECTROPHYSIOLOGY OUTPATIENT VISIT DATE July 15, 2023 OUTPATIENT VISIT TYPE ESTABLISHED PRIMARY CARE PHYSICIAN: Aure Little, PHARM TECH ([facility]) [address] [place] [address] CHIEF COMPLAINT: Cardiology follow up HISTORY OF PRESENT ILLNESS: Ms. Elias is a 77 year old female who presents today for follow-up visit. She is a patient of Dr Polk's with history of HTN, DM II, persistent LV dysfunction since 2019, PAD (aortoiliac disease status post Right axillobifemoral bypassbypass), CAD s/p PCI, chronic HFrEF, LBBB on EKG. She was recommended to undergo BERRY GROWER-D implantation which was done on 06/30/2023. Here for follow up with a device check Reports she is feeling well since implant. Site has been healing well for her. Device check done today showing no arrhythmias and she is LV pacing 98.2%. Describes having a scenario at [employer] where she had to go up multiple flights of stairs and she was able to do this without stopping and without feeling short of breath She denies chest pain, shortness of breath, orthopnea, cough, edema, palpitations, PND, lightheadedness or syncope. PAST CARDIAC HISTORY: See above PAST MEDICAL HISTORY Diagnosis Date Cardiomyopathy (HCC) Claudication (HCC) DM (diabetes mellitus) (HCC) HTN (hypertension) Incontinence NSVT (nonsustained ventricular tachycardia) (HCC) Sciatica Systolic CHF (HCC) PAST SURGICAL HISTORY Procedure Laterality Date CHOLECYSTECTOMY REMV CATARACT EXTRACAP,INSERT LENS Bilateral TOTAL ABDOMINAL HYSTERECT W/WO RMVL TUBE OVARY SOCIAL HISTORY Social History Tobacco Use Smoking status: Former Smokeless tobacco: Never Tobacco comments: Social for approx 1 year around age 36 Vaping Use Vaping Use: Never used Substance Use Topics Alcohol use: Not Currently Drug use: Never FAMILY HISTORY Problem Relation Age of Onset other (cabg) Mother other (pacemaker) Mother Diabetes Father Lung Cancer Father COPD Brother ALLERGIES: ALLERGIES Allergen Reactions Penicillins Anaphylaxis, Hives Iodinated Contrast * Other: See Comments Throat itching to some Xray dye >20-30 years ago MEDICATIONS: furosemide (LASIX) 40 mg tablet Take 1 tablet by mouth once daily. diazePAM (VALIUM) 2 mg tablet empagliflozin (JARDIANCE) 10 mg tablet Take 1 tablet by mouth daily with breakfast. sertraline (ZOLOFT) 50 mg tablet Take 25 mg by mouth once daily. clopidogrel (PLAVIX) 75 mg tablet Take by mouth every 24 hours. insulin detemir U-100 (LEVEMIR) 100 unit/mL (3 mL) injection pen Inject 20 Units subcutaneously daily at bedtime. semaglutide (OZEMPIC) 2 mg/dose (8 mg/3 mL) pen injector Inject 2 mg subcutaneously one time a week. valsartan (DIOVAN) 40 mg tablet Take 0.5 tablets by mouth once daily. rosuvastatin (CRESTOR) 40 mg tablet Take 1 tablet by mouth daily at bedtime. metoprolol succinate ER (TOPROL XL) 25 mg 24 hr tablet Take 1 tablet by mouth once daily. blood sugar diagnostic (BLOOD GLUCOSE TEST) test strip Use as instructed to monitor glucose. One touch ultra verio test strips. Blood-Glucose Sensor (FREESTYLE RU 3 SENSOR) mauricio Use new sensor every 14 days to monitor blood glucose. CPAP/BIPAP/OTHER Type .CPAPSettings into a note to see current settings/supplies/DME information. magnesium oxide (MAG-OX) 400 mg (241.3 mg magnesium) tablet TAKE 1 TABLET BY MOUTH TWICE DAILY. TAKE SEPERATELY FROM DOXYCYCLINE aspirin, enteric coated (ASPIRIN, ENTERIC COATED) 81 mg EC tablet Take 81 mg by mouth once daily. Insulin [place], Disposable, (BD ULTRA-FINE RUBIA PEN NEEDLE) 32 gauge x 5/32 ndle BD Ultra-Fine Rubia Pen Needle 32 gauge x 5/32 allopurinol (ZYLOPRIM) 100 mg tablet Take 100 mg by mouth once daily. fluticasone (FLONASE) 50 mcg/actuation nasal spray fluticasone propionate 50 mcg/actuation nasal spray,suspension REVIEW OF SYSTEMS: + Findings in bold GENERAL: Negative for: Weight loss or gain, Fever or Chills, Weakness and Sleep difficulties. HEENT: Negative for: Headache, Impaired Vision, Glasses, Hearing Impairment, Ringing in Ears, Nosebleeds, Poor Dental Care, Bleeding Gums and Dentures. NECK: Negative for: Swelling, Pain, Stiffness RESPIRATORY: Negative for: Cough, Blood in Sputum, Shortness of breath, Wheezing, Apnea GASTROINTESTINAL: Negative for: Trouble swallowing, Heartburn, Change in bowel habits, Blood in stool, Dark black stools MUSCULOSKELETAL: Negtive for: Muscle or joint pain, stiffness, Joint swelling NEUROLOGIC/PSYCHIATRIC: Negative for: Weakness, Paralysis, Numbness, Tingling, Tremor, Nervousness or anxiety, Depressed mood, Memory loss SKIN: Negative for: Rash, Itching HEMATOLOGICAL/LYMPHATIC: Negative for: Easy bruising, Easy bleeding ENDOCRINE: Negative for: Heat or Cold Intolerance, Excessive Sweating, Frequent Urination, Frequent Thirst PHYSICAL EXAMINATION: BP 138/78 (BP Site: Left Arm, BP Position: Sitting, BP Cuff Size: Regular Adult) Pulse 80 Ht 167.6 cm (5' 5.98 ) Wt 70.8 kg (156 lb 1.4 oz) BMI 25.21 kg/m General: Well appearing, in no acute distress, speaking in complete sentences. Neck: No jugular venous distention, no carotid bruits, carotids have a normal upstroke, no palpable thyromegaly. Lungs: Clear to auscultation bilaterally, no wheezing or rhonchi. Heart: Regular rhythm, PMI not displaced, S1, S2 normal, no S3, no S4, no heaves, no rub and no murmur. Chest: Incision left upper chest with healing bruising, no hematoma or tenderness to palpation Abdomen: Soft, nontender, bowel sounds normal, no palpable organomegaly, no bruits. Extremities: No peripheral edema . Grade 2/4 distal pulses bilaterally. Neuro: Oriented to person, place and time, alert, cooperative, gait coordinated. CARDIOVASCULAR MEDICINE TESTING: Electrocardiogram: July 15, 2023 ASVP rhythm, rate of 80 BPM Device Check: July 15, 2023 /LV paced SR Estimated time remaining to ZANDRA is 10.4yrs. There were 0 triggered episodes of atrial high rates There have been no ventricular detections since the last evaluation Capture and sensing are appropriate. The pacing outputs maintain safety margin. Review of the lead impedance trends are normal. Defib surgery: June 30, 2023 Device: - Implantation of a [employer] CROME HF QUAD BERRY GROWER-D MRI SURE SCAN [id number] pulse generator. Leads: - Implantation of a MEDTRONIC [id number] right ventricular lead. - Implantation of a MEDTRONIC 5076 right atrial lead. - Implantation of a [employer] ATTAIN STABILITY QUAD MRI SURESCAN [id number] LV/CS Echo: 05/25/2023 - The left ventricle is severely dilated. Left ventricular systolic function is severely decreased. EF = 21 5% (2D biplane) Definity contrast used for endocardial border detection. Left ventricular diastolic function was not evaluated due to >2+ MR. - The right ventricle is normal in size. Right ventricular systolic function is moderately decreased. - The left atrial cavity is moderately dilated. - There is severe (3+ - 4+) holosystolic mitral valve regurgitation due to apical tethering of normal mitral leaflet caused by LV enlargement likely related to nonischemic cardiomyopathy. - There is severe (3+ - 4+) tricuspid valve regurgitation caused by annular dilatation. - Estimated right ventricular systolic pressure is 58 mmHg consistent with moderate pulmonary hypertension. Estimated right atrial pressure is 15 mmHg based on IVC assessment. Estimated right ventricular systolic pressure is 58 mmHg consistent with moderate pulmonary hypertension. Estimated right atrial pressure is 15 mmHg based on IVC assessment. - Exam was compared with the prior [facility] LV is more dilated, severity of MR, TR and RVSP have increased. Latest Ref Rng 06/30/2023 07/01/2023 07/05/2023 WBC 3.70 - 11.00 k/uL 7.79 RBC 3.90 - 5.20 m/uL 4.66 Hemoglobin 11.5 - 15.5 g/dL 12.3 Hematocrit 36.0 - 46.0 % 39.4 MCV 80.0 - 100.0 fL 84.5 MCH 26.0 - 34.0 pg 26.4 MCHC 30.5 - 36.0 g/dL 31.2 RDW-CV 11.5 - 15.0 % 17.5 (H) Platelet Count 150 - 400 k/uL 199 MPV 9.0 - 12.7 fL 10.7 Absolute nRBC <0.01 k/uL <0.01 Glucose 74 - 99 mg/dL 115 (H) 155 (H) 123 (H) BUN 7 - 21 mg/dL 35 (H) 42 (H) 50 (H) Creatinine 0.58 - 0.96 mg/dL 1.61 (H) 1.90 (H) 1.89 (H) Sodium 136 - 144 mmol/L 140 142 139 Potassium 3.7 - 5.1 mmol/L 3.7 4.0 3.6 (L) Chloride 97 - 105 mmol/L 102 104 99 CO2 22 - 30 mmol/L 22 24 27 Anion Gap 9 - 18 mmol/L 16 14 13 Calcium 8.5 - 10.2 mg/dL 9.6 9.1 10.0 eGFR >=60 mL/min/1.73m 33 (L) 27 (L) 27 (L) I have personally reviewed the Electrocardiogram and Device Check. IMPRESSION: Ms. Elias is a 77 year old female with HTN, DM II, persistent LV dysfunction since 2019, PAD (aortoiliac disease status post Right axillobifemoral bypassbypass), CAD s/p PCI, chronic HFrEF, LBBB on EKG. She was recommended to undergo BERRY GROWER-D implantation which was done on 06/30/2023. Doing very well post implantation. Device showing normal function and no arrhythmias she is LV pacing 98.2%, BiV pacing 1.8%. She is euvolemic on exam PLAN AND RECOMMENDATIONS: - No changes -Asked her to wait 1 more week before raising her left arm above shoulder level. 1 more month before she could submerge wound in a swimming pool -Remote checks every 3 months -We will need an echocardiogram in September to reassess her LV function after BERRY GROWER therapy. Will arrange this, a device check, and a follow-up visit with Dr. Polk all at the same time I personally interviewed, confirmed and edited the above information as obtained by others. CONTACT INFORMATION: Myesha Cheng PA-C I spent 35 minutes in the visit, with more than 50% of the total [id number] time of the visit in counseling / coordination of care. documented in this encounter [facility] 07-15-2023 Note [facility] 07-05-2023 Note [facility] 07-05-2023 History of Present illness Narrative [facility] [place] Department of Cardiovascular Medicine VIRTUAL VIDEO VISIT ESTABLISHED OUTPATIENT VISIT SERVICE DATE: 07/05/2023 Patient: Arleth Elias SERVICE TIME: 3:17 PM : 1945 This is a virtual video visit. It required patient-provider interaction for the medical decision making as documented below. Arleth Elias has consented to this video encounter. I have communicated my name and active licensure. The patient's identity and physical location were verified at the time of this visit. Either the patient or their legal field support representative has been informed of the risks and benefits of -- and alternatives to -- treatment through a remote evaluation and consents to proceed with the evaluation remotely. Arleth Elias is a 77 year old female seen for chronic systolic heart failure s/p recent Bi-V upgrade. CHIEF COMPLAINT Follow up HISTORY OF PRESENT ILLNESS Arleth Elias is a 77 year old female with a medical history that includes heart failure with recovered LVEF (25% --> 61%) and newly reduced again, CAD now s/p PCI to LAD 02/2023, HTN, HLD PVD s/p right axillobifemoral bypass 12/2019, DM who follows with Dr. Pritchard. She has a hx of NICM since 2019, LVEF ana maria 35%, ischemic work up at that time with non-obstructive CAD. She was managed on medication and LVEF had improved to ~ 60% 03/2020 and in 09/2022 LVEF noted to be ~ 48-50%. Interval History: Arleth Elias was last seen in this clinic on . Since the last visit - she underwent Bi-V ICD placement a few days ago and is feeling well. Arleth reports that overall she is progressing - he dyspnea is improving, getting stronger, feels like she has more energy, no peripheral edema, no orthopnea, no PND, no lightheadedness, no dizziness, no syncope. There is bruising along her device site but improving gradually. She has continued to lose weight -- today's weight is 155 lbs. Activity/Exercise: starting to do more. Home BP: 100s-110s/70s. Weight: down to 155 lbs CV Problem List/Medical History: Heart failure with reduced EF: suspect mostly non-ischemic CM with obstructive mLAD disease. Echo 05/25/23: LVEF 20%, LVEDd 6.1cm, severe MR/TR, IVC dilated. Echo 02/2023: LVEF 30%, RV wnl. LVEdd 5.8cm. CAD s/p PCI to mLAD with TRACY 02/2023 PVD s/p right axillobifemoral bypass 12/2019 DM: PAST MEDICAL HISTORY Diagnosis Date Cardiomyopathy (HCC) Claudication (HCC) DM (diabetes mellitus) (HCC) HTN (hypertension) Incontinence NSVT (nonsustained ventricular tachycardia) (HCC) Sciatica Systolic CHF (HCC) PAST SURGICAL HISTORY Procedure Laterality Date CHOLECYSTECTOMY REMV CATARACT EXTRACAP,INSERT LENS Bilateral TOTAL ABDOMINAL HYSTERECT W/WO RMVL TUBE OVARY FAMILY HISTORY Problem Relation Age of Onset other (cabg) Mother other (pacemaker) Mother Diabetes Father Lung Cancer Father COPD Brother Social History Tobacco Use Smoking status: Former Smokeless tobacco: Never Tobacco comments: Social for approx 1 year around age 36 Vaping Use Vaping Use: Never used Substance Use Topics Alcohol use: Not Currently Drug use: Never ALLERGIES Allergen Reactions Penicillins Anaphylaxis, Hives Iodinated Contrast * Other: See Comments Throat itching to some Xray dye >20-30 years ago CURRENT MEDICATIONS empagliflozin (JARDIANCE) 10 mg tablet Take 1 tablet by mouth daily with breakfast. sertraline (ZOLOFT) 50 mg tablet Take 25 mg by mouth once daily. clopidogrel (PLAVIX) 75 mg tablet Take by mouth every 24 hours. insulin detemir U-100 (LEVEMIR) 100 unit/mL (3 mL) injection pen Inject 20 Units subcutaneously daily at bedtime. semaglutide (OZEMPIC) 2 mg/dose (8 mg/3 mL) pen injector Inject 2 mg subcutaneously one time a week. valsartan (DIOVAN) 40 mg tablet Take 0.5 tablets by mouth once daily. rosuvastatin (CRESTOR) 40 mg tablet Take 1 tablet by mouth daily at bedtime. metoprolol succinate ER (TOPROL XL) 25 mg 24 hr tablet Take 1 tablet by mouth once daily. blood sugar diagnostic (BLOOD GLUCOSE TEST) test strip Use as instructed to monitor glucose. One touch ultra verio test strips. Blood-Glucose Sensor (FREESTYLE RU 3 SENSOR) mauricio Use new sensor every 14 days to monitor blood glucose. CPAP/BIPAP/OTHER Type .CPAPSettings into a note to see current settings/supplies/DME information. aspirin, enteric coated (ASPIRIN, ENTERIC COATED) 81 mg EC tablet Take 81 mg by mouth once daily. Insulin [place], Disposable, (BD ULTRA-FINE RUBIA PEN NEEDLE) 32 gauge x 5/32 ndle BD Ultra-Fine Rubia Pen Needle 32 gauge x 5/32 allopurinol (ZYLOPRIM) 100 mg tablet Take 100 mg by mouth once daily. fluticasone (FLONASE) 50 mcg/actuation nasal spray fluticasone propionate 50 mcg/actuation nasal spray,suspension furosemide (LASIX) 40 mg tablet Take 1 tablet by mouth once daily. diazePAM (VALIUM) 2 mg tablet magnesium oxide (MAG-OX) 400 mg (241.3 mg magnesium) tablet TAKE 1 TABLET BY MOUTH TWICE DAILY. TAKE SEPERATELY FROM DOXYCYCLINE REVIEW OF SYSTEMS: 10 point review of systems completed and negative unless mentioned above. PHYSICAL EXAMINATION: VIDEO EXAM: (if completed, performed via video enabled technology) General: well developed, well nourished female in no acute distress. Lungs: appears comfortable. Extremities: Edema none visualized Neuro: awake, oriented with no focal neurological deficit. Psychiatric: appropriate mood and affect for her clinical situation. PATIENT ENTERED QUESTIONNAIRE SCORES 01/20/2022 PHQ-9 PHQ-2 Score 0 PHQ-9 Score 2 01/21/2023 11/01/2022 06/22/2022 PROMIS Global Health - (T-Scores - the mean of general population = 50. Five points is a clinically meaningful difference.) Physical T-Score 37.4 37.4 34.9 Mental T-Score 41.1 41.1 50.8 GDMT: - BB: toprol XL 25mg daily - ACEI/ARB/ARNI: valsartan 20mg daily - MRA: no - SGLT2: jardiance 10mg daily - Vasodilators: no - Device: life vest - Cardiomems: no - Other: lasix 40mg BID, plavix and aspirin 81mg daily IMPRESSION and PLAN/Recommendation In summary, Arleth Elias is a 77 year old being managed today for the following issues: 1.Non-ischemic Cardiomyopathy/chronic systolic heart failure: NYHA functional class III, Stage C heart failure, Clinical Class B - warm and euvolemic. Etiology: non-ischemic with CAD. GDMT: continue with troprol, valsartan and jardiance. Decrease lasix to 40mg daily. Follow up lab work in 2 weeks. S/p BERRY GROWER-D and reports improvement overall. Will get repeat echo in ~ 8-12 wks post device implant. 2. DAV on CKD: Cr increased to 1.9 on labs for today. Decrease lasix as above. Thank you for allowing me to participate in the care of your patient. I will continue to follow up with Arleth Elias in my heart failure clinic with plans to see her back in person. Stanley Strange MD Advanced Heart Failure and Transplant Product Development Worker [facility] [place] [address] Appointment: [phone] documented in this encounter [facility] 07-01-2023 Miscellaneous Notes Spoke with pt. Asked that we send her a [employer] message and she will call to schedule with Kidney Medicine. Dr Polk would like patient to establish with Nephrology for DAV on CKD Please help arrange Myesha Cheng PA-C documented in this encounter [facility] 07-01-2023 Note HNO ID: [id number] Author: MYESHA CHENG PA-C Service: Electrophysiology Author Type: Physician Hims Manager Type: Progress Notes Filed: 07/01/2023 10:25 Note Text: [facility] PROGRESS NOTE PRIMARY SERVICE: HOSPITAL DAY: # 0 INTERVAL HISTORY s/p BiV ICD Some discomfort overnight Eating breakfast this morning PHYSICAL EXAM BP 124/65 Pulse 86 Temp 36.5 ?C (97.7 ?F) (Oral) Resp 16 Ht 167.6 cm (5' 6 ) Wt 74.3 kg (163 lb 11.2 oz) SpO2 92% BMI 26.42 kg/m? Intake/Output Summary (Last 24 hours) at 07/01/2023 0754 Last data filed at 06/30/2023 1639 Gross per 24 hour Intake 500 ml Output -- Net 500 ml General appearance: Well appearing, alert, in no acute distress, well-hydrated, well nourished. Neck: Supple, no adenopathy; thyroid symmetric, normal size, no bruits Lungs: Lungs clear to auscultation. No wheezing, rhonchi, rales. Heart: RRR without murmur, gallop, or rubs. Chest: Incision left upper chest with some bruising; mild tenderness, no hematoma Abdomen: Abdomen soft, non-tender. Bowel sounds normal. Extremities: No deformities, edema, skin discoloration, clubbing or cyanosis. Musculoskeletal: No joint swelling, deformity, or tenderness Peripheral pulses: Pulses palpable Neuro: Oriented X 3 MEDICATIONS Current Facility-Administered Medications Medication Dose Route Frequency acetaminophen 500-1,000 mg tab(s) (TYLENOL) 500-1,000 mg ORAL q 6 H PRN diazePAM 2 mg tab(s) (VALIUM) 2 mg ORAL BID PRN empagliflozin 10 mg tab(s) (JARDIANCE) 10 mg ORAL DAILY WITH BREAKFAST rosuvastatin 40 mg tab(s) (CRESTOR) 40 mg ORAL AT BEDTIME allopurinol 100 mg tab(s) (ZYLOPRIM) 100 mg ORAL DAILY magnesium oxide 400 mg tab(s) (MAG-OX) 400 mg ORAL BID aspirin, enteric coated 81 mg tab(s) 81 mg ORAL DAILY sertraline 25 mg tab(s) (ZOLOFT) 25 mg ORAL DAILY dextrose 40 % 15 g 15 g ORAL PRN Or glucagon 1 mg injection 1 mg INTRAMUSCULAR PRN Or dextrose 10% iv bolus 12.5 g INTRAVENOUS PRN valsartan 20 mg tab(s) (DIOVAN) 20 mg ORAL DAILY metoprolol succinate ER 25 mg tab(s) (TOPROL XL) 25 mg ORAL DAILY furosemide 40 mg tab(s) (LASIX) 40 mg ORAL BID insulin glargine 16 Units pen (long acting) 16 Units SUBCUTANEOUS AT BEDTIME DATA Medication, tests, and labs reviewed. Vital signs and nursing notes reviewed. Recent Labs 06/30/23 1120 WBC 7.79 HB 12.3 HCT 39.4 PLT 199 Recent Labs 07/01/23 0441 06/30/23 1120 NA 142 140 K 4.0 3.7 CO2 24 22 BUN 42* 35* CREAT 1.90* 1.61* GLUC 155* 115* IMAGING: Defib surgery: June 30, 2023 Device: - Implantation of a [employer] CROME HF QUAD BERRY GROWER-D MRI SURE SCAN [id number] pulse generator. Leads: - Implantation of a [employer] 6935M-62 right ventricular lead. - Implantation of a [employer] 5076 right atrial lead. - Implantation of a [employer] ATTAIN STABILITY QUAD MRI SURESCAN [id number] LV/CS CXR: July 01, 2023 ASSESSMENT AND PLAN Severe LV dysfunction/chronic HFrEF - s/p BiV ICD placement on 06/[address] Polk - Dressing removed this morning; has some bruising but no hematoma - Wound care discussed and placed in dc instructions - EKG and CXR done and reviewed - Device check being done at bedside now - Resuming plavix - Discharging home as planned with close follow up in the office SIGNATURE: Myesha Cheng PA-C PATIENT NAME: Arleth Elias DATE: July 01, 2023 TIME: 7:54 AM PAGER/CONTACT #: SEE BELOW For communication after 5 pm on weekdays and on weekends, please page the following: - [facility] General Cardiology Consult: Team A pager [phone], Team B pager [phone] - [facility] Electrophysiology Consult pager [phone] - [facility] Cardiology Consult Pager [phone] [phone] [facility] 06-30-2023 Note HNO ID: [id number] Author: PATRICIA COPELAND APRN.POT PRESS OPERATOR Service: Anesthesiology Author Type: Nurse Card Processing Clerk Type: Anesthesia Procedure Notes Filed: 06/30/2023 15:24 Note Text: ANESTHESIOLOGY PROCEDURE NOTE PIV General Information Procedure Start Time/Medication Administration: 06/30/2023 3:03 PM Patient Location: OR Staffing Anesthesiologist: Lindsey Decker DO POT PRESS OPERATOR: Patricia Copeland APRN.POT PRESS OPERATOR Performed by: anesthesiologist Preparation Sterility Preparation: hand hygiene performed prior to procedure, mask used Site Prep: chlorhexidine Procedure Details Indication: need for IV access Needle Size/Type: 18 gauge angiocath Orientation: Left Location: Hand Imaging Guidance Used: No SIGNATURE: Patricia Copeland APRN.CRNA PATIENT NAME: Arleth Elias DATE: June 30, 2023 TIME: 3:24 PM CSN: [id number] [facility] 06-30-2023 Note HNO ID: [id number] Author: PATRICIA COPELAND APRN.CRNA Service: Anesthesiology Author Type: Nurse Card Processing Clerk Type: Anesthesia Procedure Notes Filed: 06/30/2023 15:23 Note Text: ANESTHESIOLOGY PROCEDURE NOTE Airway General Information Procedure Start Time/Medication Administration: 06/30/2023 2:59 PM Patient location during procedure: OR Timeout Performed Pre-procedure: timeout performed Consent Obtained: Yes 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, 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 Staffing Anesthesiologist: Lindsey Decker DO POT PRESS OPERATOR: Patricia Copeland APRN.POT PRESS OPERATOR Performed by: CARMEN Indications and Patient Condition Indications for airway management: anesthesia Preoxygenated: yes anesthesia circuit Patient position: sniffing Method: asleep Cricoid Pressure: Yes Difficult Mask: No Final Airway Details Final airway type: endotracheal airway Final Endotracheal Airway: ETT Cuffed: yes Successful intubation technique: video laryngoscopy Devices used: Fatima Endotracheal tube insertion site: oral Blade size: #4 ETT size (mm): 7.0 Measured from: lips Measurement (cm): 21 Placement verified by: chest auscultation and capnometry Cormack-Lehane Classification: grade IIa - partial view of glottis Number of attempts at approach: 1 Comments Teeth and lips in pre-anesthetic condition SIGNATURE: Patricia Copeland APRN.CRNA PATIENT NAME: Arleth Elias DATE: June 30, 2023 TIME: 3:21 PM CSN: [id number] [facility] 06-22-2023 Miscellaneous Notes PT called in for lab order. Request completed and no further questions. documented in this encounter [facility] 06-17-2023 Telephone encounter Note Patient will no longer fill jardiance with [facility] and will instead use their preferred pharmacy, [facility]. Patient is aware of RX transfer process and will initiate this for their next fill. No further action is required by your office. Profile will be canceled, as will future prior authorization approvals and adherence calls completed by the pharmacy team. Thank you, [facility] [phone] [facility] 06-17-2023 Miscellaneous Notes Patient will no longer fill jardiance with [facility] and will instead use their preferred pharmacy, [facility]. Patient is aware of RX transfer process and will initiate this for their next fill. No further action is required by your office. Profile will be canceled, as will future prior authorization approvals and adherence calls completed by the pharmacy team. Thank you, [facility] [phone] documented in this encounter [facility] 06-17-2023 Miscellaneous Notes Called and scheduled patient and sent my chart with instructions. Follow up scheduled. ----- Message from Afshan Deng MD sent at 06/17/2023 12:44 PM EST ----- MAC please EPS Lab Request: Device Patient: Arleth Elias Requested by: Afshan Deng MD Requesting Physician: MD Elba Procedure Physician: MD Elba Procedure Requested: BIV ICD CPT: 40179; 03964 (CS LEAD) Date of Last H&P? Indications / Dx for Procedure: CHF Procedure Time Frame: First Available Estimated length of case: 3 HOURS Device Company: [employer] Patient: No Type of Bed: OVERNIGHT Medication to be stopped(please specify medication/timeframe): Yes, hold ozempic 1 week; hold plavix 3 days prior Called pt for update after IV lasix yesterday. Pt breathing feels same, down one pound overnight, did not have noticeable increase of urination. Pt started increased PO lasix dose per OV instructions 05/31/23. Pt said the earliest appt with Dr. Polk sched August 12, 2023. Pt confirmed will call office with updated s/s from PO lasix Wednesday, Jun 04. documented in this encounter [facility] 06-17-2023 History of Present illness Narrative Images from the original note were not included. [facility] [place] SECTION OF REGIONAL CARDIOLOGY June 17, 2023 Outpatient VISIT TYPE Established PRIMARY CARE PHYSICIAN: Alan Vega, DO [address] [place] [address] [place], [place] [id number] HISTORY OF PRESENT ILLNESS: Ms. Elias is a 77 year old female with a past medical history of Chronic systolic heart failure recovered LVEF 35%->61%, nonischemic cardiomyopathy, CAD status post [facility] on 06/07/2019 with 50-70% stenosis of the mid LAD, HTN, HLD, PVD sp right axillobifemoral bypass graft on 01/02/20 for severe aortic stenosis at the level of the renal arteries, DM, diverticulitis, ankle pain. Last visit with Dwight Ross CNP on 02/24/23, per that note: ... she tells me that sice discharge, she has been feeling weak with exercise intolerance. Home BP hypotensive Weight has been 179-181# at home she feels that she is eating and drinking well-- limiting sodium she denies CP, palpitations, claudication, orthopnea, syncope, edema, abd bloating She was seen multiple times by Dr. Strange who recommended adding jardiance at her last visit. The patient has not taken the medication yet. She was seen by EP and recommended to have a BERRY GROWER-D which should happen later this month. Today, she tells me that she has shortness of breath when she is walking. She did cardiac rehab yesterday for 40 minutes. He ankles were swollen for a bit yet, this has improved with weightloss. She is hoping that she will have more energy after she has the BERRY GROWER-D. She denies having any: chest pain, palpitations, orthopnea, LE edema, presyncope/syncope, N/V, bleeding, or other significant symptoms. She is eating vegetables on most daily. She is on ozempic and feels that she has lost about 10lbs. She only occasionally has coffee. She will have an alcoholic beverage 3 times a year. She doesn't smoke or use any drugs. She goes to pool walking for an hour 2x per week. Family, father had cancer. Mother was in her early 60s with CABG and a pacemaker. 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 IMPRESSION: Encounter Diagnosis ICD-10-CM 1. Shortness of breath R06.02 2. Fatigue, unspecified type R53.83 3. HFrEF (heart failure with reduced ejection fraction) ([facility]) I50.20 4. Cardiomyopathy, unspecified type ([facility]) I42.9 5. 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 I25.10 6. Essential hypertension I10 BASIC METABOLIC PNL 7. Mixed hyperlipidemia E78.2 8. Hyperlipidemia associated with type 2 diabetes mellitus ([facility]) ([facility]) E11.69 E78.5 9. Moderate obstructive sleep apnea G47.33 10. H/O aorto-femoral bypass Z95.828 11. Class 1 obesity due to excess calories with serious comorbidity and body mass index (BMI) of 30.0 to 30.9 in adult E66.09 Z68.30 PLAN AND RECOMMENDATIONS: SOB and fatigue noted. Possibly secondary to heart failure. Currently seeing [facility] as well as EP for BERRY GROWER-D placement. Presently she is wearing a LifeVest. She continues to have untreated sleep apnea and should seek to obtain a CPAP prior to her next visit. Chronic systolic heart failure with LVEF 20%. Continue GDMT as detailed by heart failure, currently blood pressure appears to be borderline low: Continue metoprolol XL 25 mg daily Continue Furosemide 40 mg twice daily Continue valsartan 20 mg daily Jardiance 10 mg daily We will discuss her symptoms at next visit and consider if further titration is necessary at next visit. CAD with intermediate lesion in the LAD, IFR 0.9 on last [facility]. continue cardiac medications at this time. Continue cardiac medications: Aspirin plus Plavix, beta genia, statin. Goal blood pressure less than 130/80 mmHg. Will attempt to maintain systolic BP above 85mmHg. Continue current antihypertensive medications, BP is controlled. Also continue lifestyle modifications. Recheck BMP prior to next visit. Goal LDL is less than 70 mg/dL. Continue rosuvastatin as this may improve her A1c. Check lipids at least yearly. Goal A1C is less than 7.0%. MR will need to be re-evaluated after further optimization with heart failure. ERASMO noted, FU with sleep medicine prior to next visit. We briefly discussed the importance of diet and exercise and maintaining ideal body weight. Continue working with endocrinology weight management. REVIEW OF SYSTEMS: Chest pain No Shortness of breath Yes Bleeding No Dizziness No Syncope No Palpations No 10 systems reviewed and are negative with the exception of pertinent positives described in HPI PHYSICAL EXAMINATION: via telephone Wt 76 kg (167 lb 8.8 oz) BMI 27.04 kg/m Gen.: No apparent distress, obese HEENT: normocephalic, EOMI, no JVD, No carotid bruit. Heart: regular rhythm, no significant murmur Lungs: clear to auscultation Abdomen: bowel sounds present Extremities: trace edema in feet BL. Musculoskeletal: chest wall nontender Neurological: alert and oriented Psychiatric: appropriate and cooperative Skin: no rash, cellulitis or lesions appreciated CARDIOVASCULAR MEDICINE TESTING: I have personally reviewed ECG, PVR report, echocardiogram report, stress test report, MCOT report, and labs ECG - 06/15/2023 NSR 93 bpm, possible left atrial enlargement, complete RBBB, abnormal ECG Echocardiogram-05/25/2023 CONCLUSIONS: - Exam indication: Evaluation of known heart failure to guide therapy - The left ventricle is severely dilated. Left ventricular systolic function is severely decreased. EF = 21 5% (2D biplane) Definity contrast used for endocardial border detection. Left ventricular diastolic function was not evaluated due to >2+ MR. - The right ventricle is normal in size. Right ventricular systolic function is moderately decreased. - The left atrial cavity is moderately dilated. - There is severe (3+ - 4+) holosystolic mitral valve regurgitation due to apical tethering of normal mitral leaflet caused by LV enlargement likely related to nonischemic cardiomyopathy. - There is severe (3+ - 4+) tricuspid valve regurgitation caused by annular dilatation. - Estimated right ventricular systolic pressure is 58 mmHg consistent with moderate pulmonary hypertension. Estimated right atrial pressure is 15 mmHg based on IVC assessment. Estimated right ventricular systolic pressure is 58 mmHg consistent with moderate pulmonary hypertension. Estimated right atrial pressure is 15 mmHg based on IVC assessment. - Exam was compared with the prior echocardiographic exam performed on 02/18/2023([facility]). LV is more dilated, severity of MR, TR and RVSP have increased. PVR-01/06/21 IMPRESSION Compared to prior study of 02/19/2020, Right TBI was .62; left was.56. No significant change in PVR waveforms throughout. RIGHT SIDE Resting right ankle brachial index: 1.25 Partially non-compressible arteries, TIARA not accurate. Right toe brachial index: 0.54 Non-compressible vessels, results called by PVR tracings. Abnormal toe brachial index at rest is evidence of peripheral artery disease. Right ankle: Moderate disease at rest. Aortic or bilateral iliofemoral disease. LEFT SIDE Resting left ankle brachial index: 1.29 Partially non-compressible arteries, TIARA not accurate. Left toe brachial index: 0.62 Non-compressible vessels, results called by PVR tracings. Abnormal toe brachial index at rest is evidence of peripheral artery disease. Left ankle: Moderate disease at rest. Aortic or bilateral iliofemoral disease. SPECT - 10/07/21 CONCLUSIONS: 1. SPECT Perfusion Study: Normal. 2. There is no scintigraphic evidence for inducible ischemia. 3. No evidence of scarred myocardium. 4. Left ventricle is normal in size. The left ventricle systolic function is normal. 5. Right ventricle is normal in size. 6. This is a low risk scan. Gated Stress FBP LVEF % 67 MCOT -05/18/2020 Patient had a min HR of 59 bpm, max HR of 193 bpm, and avg HR of 80 bpm. Predominant underlying rhythm was Sinus Rhythm. 12 Ventricular Tachycardia runs occurred, the run with the fastest interval lasting 7 beats with a max rate of 193bpm, the longest lasting 7 beats with an avg rate of 126 bpm. 3 Supraventricular Tachycardia runs occurred, the run with the fastest interval lasting 5 beats with a max rate of 193 bpm, the longest lasting 7 beats with an avg rate of 135 bpm. Isolated SVEs were rare (<1.0%), SVE Couplets were rare (<1.0%), and SVE Triplets were rare (<1.0%). Isolated VEs were occasional (1.9%, 73850), VE Couplets were rare (<1.0%, 2064), and VE Triplets were rare (<1.0%, 32). Ventricular Bigeminy and Trigeminy were present. 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 Cardiac Catheterization 06/08/2019: LM : normal Mid LAD : 50--70% cx : see initial cath Latest Reference Range & Units 06/14/23 13:22 Sodium 136 - 144 mmol/L 139 Potassium 3.7 - 5.1 mmol/L 4.1 Chloride 97 - 105 mmol/L 99 CO2 22 - 30 mmol/L 27 BUN 7 - 21 mg/dL 40 (H) Creatinine 0.58 - 0.96 mg/dL 1.49 (H) Glucose 74 - 99 mg/dL 89 Calcium 8.5 - 10.2 mg/dL 9.8 Anion Gap 9 - 18 mmol/L 13 eGFR >=60 mL/min/1.73m 36 (L) (H): Data is abnormally high (L): Data is abnormally low Hemoglobin (g/dL) Date Value 05/25/2023 13.1 08/14/2020 11.7 Hematocrit (%) Date Value 05/25/2023 43.7 08/14/2020 39.2 WBC (k/uL) Date Value 05/25/2023 10.26 08/14/2020 8.08 PAST MEDICAL HISTORY Diagnosis Date Cardiomyopathy (HCC) Claudication (HCC) DM (diabetes mellitus) (HCC) HTN (hypertension) Incontinence NSVT (nonsustained ventricular tachycardia) (HCC) Sciatica Systolic CHF (HCC) PAST SURGICAL HISTORY Procedure Laterality Date CHOLECYSTECTOMY REMV CATARACT EXTRACAP,INSERT LENS Bilateral TOTAL ABDOMINAL HYSTERECT W/WO RMVL TUBE OVARY Social History Tobacco Use Smoking status: Former Smokeless tobacco: Never Tobacco comments: Social for approx 1 year around age 36 Vaping Use Vaping Use: Never used Substance Use Topics Alcohol use: Not Currently Drug use: Never FAMILY HISTORY Problem Relation Age of Onset other (cabg) Mother other (pacemaker) Mother Diabetes Father Lung Cancer Father COPD Brother ALLERGIES Allergen Reactions Penicillins Anaphylaxis, Hives Iodinated Contrast * Other: See Comments Throat itching to some Xray dye >20-30 years ago CURRENT MEDICATIONS: diazePAM (VALIUM) 2 mg tablet furosemide (LASIX) 40 mg tablet Take 1 tablet by mouth two times a day. empagliflozin (JARDIANCE) 10 mg tablet Take 1 tablet by mouth daily with breakfast. sertraline (ZOLOFT) 50 mg tablet Take 25 mg by mouth once daily. clopidogrel (PLAVIX) 75 mg tablet Take by mouth every 24 hours. insulin detemir U-100 (LEVEMIR) 100 unit/mL (3 mL) injection pen Inject 20 Units subcutaneously daily at bedtime. semaglutide (OZEMPIC) 2 mg/dose (8 mg/3 mL) pen injector Inject 2 mg subcutaneously one time a week. valsartan (DIOVAN) 40 mg tablet Take 0.5 tablets by mouth once daily. rosuvastatin (CRESTOR) 40 mg tablet Take 1 tablet by mouth daily at bedtime. metoprolol succinate ER (TOPROL XL) 25 mg 24 hr tablet Take 1 tablet by mouth once daily. blood sugar diagnostic (BLOOD GLUCOSE TEST) test strip Use as instructed to monitor glucose. One touch ultra verio test strips. Blood-Glucose Sensor (FREESTYLE RU 3 SENSOR) mauricio Use new sensor every 14 days to monitor blood glucose. CPAP/BIPAP/OTHER Type .CPAPSettings into a note to see current settings/supplies/DME information. magnesium oxide (MAG-OX) 400 mg (241.3 mg magnesium) tablet TAKE 1 TABLET BY MOUTH TWICE DAILY. TAKE SEPERATELY FROM DOXYCYCLINE aspirin, enteric coated (ASPIRIN, ENTERIC COATED) 81 mg EC tablet Take 81 mg by mouth once daily. Insulin [place], Disposable, (BD ULTRA-FINE RUBIA PEN NEEDLE) 32 gauge x 5/32 ndle BD Ultra-Fine Rubia Pen Needle 32 gauge x 5/32 allopurinol (ZYLOPRIM) 100 mg tablet Take 100 mg by mouth once daily. fluticasone (FLONASE) 50 mcg/actuation nasal spray fluticasone propionate 50 mcg/actuation nasal spray,suspension Signed: Chalo Pritchard DO June 17, 2023 documented in this encounter [facility] 06-17-2023 Note [facility] 06-15-2023 Note [facility] 06-15-2023 History of Present illness Narrative Images from the original note were not included. [facility] [place] [facility] Ya[facility]ez Department of Cardiovascular Medicine SECTION OF CARDIAC PACING and ELECTROPHYSIOLOGY OUTPATIENT VISIT DATE June 15, 2023 OUTPATIENT VISIT TYPE NEW PRIMARY CARE PHYSICIAN: Aure Little CNP ([facility]) [address] [place] [address] REFERRING PHYSICIAN: Aure Little CNP ([facility]) [address] [place] [address] CHIEF COMPLAINT: Severe LV dysfunction, wide QRS complex (left bundle branch block) HISTORY OF PRESENT ILLNESS: Ms. Elias is a delightfully pleasant 77 year old female with hypertension, diabetes, history of cardiomyopathy with LV dysfunction (back in 2019, with subsequent recovery and normalization of EF), peripheral arterial disease (aortoiliac disease status post Right axillobifemoral bypassbypass) --- who was hospitalized in February 2023 with decompensated heart failure and found to have severely impaired LV systolic function. She has been under the care of of Dr. Pritchard and cristopher and currently strictly compliant with excellent GDMT. She is referred to EP for consideration of primary prevention ICD therapy, and BERRY GROWER. She denies chest pain, shortness of breath, orthopnea, cough, edema, palpitations, PND, lightheadedness or syncope. Reports that symptoms are currently much improved -still reports NYHA II/III. PAST CARDIAC HISTORY: PAST MEDICAL HISTORY Diagnosis Date Cardiomyopathy (HCC) Claudication (HCC) DM (diabetes mellitus) (HCC) HTN (hypertension) Incontinence NSVT (nonsustained ventricular tachycardia) (HCC) Sciatica Systolic CHF (HCC) PAST SURGICAL HISTORY Procedure Laterality Date CHOLECYSTECTOMY REMV CATARACT EXTRACAP,INSERT LENS Bilateral TOTAL ABDOMINAL HYSTERECT W/WO RMVL TUBE OVARY SOCIAL HISTORY Social History Tobacco Use Smoking status: Former Smokeless tobacco: Never Tobacco comments: Social for approx 1 year around age 36 Vaping Use Vaping Use: Never used Substance Use Topics Alcohol use: Not Currently Drug use: Never FAMILY HISTORY Problem Relation Age of Onset other (cabg) Mother other (pacemaker) Mother Diabetes Father Lung Cancer Father COPD Brother ALLERGIES: ALLERGIES Allergen Reactions Penicillins Anaphylaxis, Hives Iodinated Contrast * Other: See Comments Throat itching to some Xray dye >20-30 years ago MEDICATIONS: diazePAM (VALIUM) 2 mg tablet sertraline (ZOLOFT) 50 mg tablet Take 25 mg by mouth once daily. clopidogrel (PLAVIX) 75 mg tablet Take by mouth every 24 hours. insulin detemir U-100 (LEVEMIR) 100 unit/mL (3 mL) injection pen Inject 20 Units subcutaneously daily at bedtime. semaglutide (OZEMPIC) 2 mg/dose (8 mg/3 mL) pen injector Inject 2 mg subcutaneously one time a week. valsartan (DIOVAN) 40 mg tablet Take 0.5 tablets by mouth once daily. rosuvastatin (CRESTOR) 40 mg tablet Take 1 tablet by mouth daily at bedtime. metoprolol succinate ER (TOPROL XL) 25 mg 24 hr tablet Take 1 tablet by mouth once daily. blood sugar diagnostic (BLOOD GLUCOSE TEST) test strip Use as instructed to monitor glucose. One touch ultra verio test strips. Blood-Glucose Sensor (FREESTYLE RU 3 SENSOR) mauricio Use new sensor every 14 days to monitor blood glucose. CPAP/BIPAP/OTHER Type .CPAPSettings into a note to see current settings/supplies/DME information. magnesium oxide (MAG-OX) 400 mg (241.3 mg magnesium) tablet TAKE 1 TABLET BY MOUTH TWICE DAILY. TAKE SEPERATELY FROM DOXYCYCLINE aspirin, enteric coated (ASPIRIN, ENTERIC COATED) 81 mg EC tablet Take 81 mg by mouth once daily. Insulin [place], Disposable, (BD ULTRA-FINE RUBIA PEN NEEDLE) 32 gauge x 5/32 ndle BD Ultra-Fine Rubia Pen Needle 32 gauge x 5/32 allopurinol (ZYLOPRIM) 100 mg tablet Take 100 mg by mouth once daily. fluticasone (FLONASE) 50 mcg/actuation nasal spray fluticasone propionate 50 mcg/actuation nasal spray,suspension furosemide (LASIX) 40 mg tablet Take 1 tablet by mouth two times a day. empagliflozin (JARDIANCE) 10 mg tablet Take 1 tablet by mouth daily with breakfast. Lancets lancets Use as instructed REVIEW OF SYSTEMS: GENERAL: Negative for: Weight loss or gain, Fever or Chills, Weakness and Sleep difficulties. HEENT: Negative for: Headache, Impaired Vision, Glasses, Hearing Impairment, Ringing in Ears, Nosebleeds, Poor dental care, Bleeding Gums, Dentures NECK: Negative for: Swelling, Pain, Stiffness RESPIRATORY: Negative for: Cough, Blood in Sputum, Shortness of breath, Wheezing, Apnea GASTROINTESTINAL: Negative for: Trouble swallowing, Heartburn, Change in bowel habits, Blood in stool, Dark black stools MUSCULOSKELETAL: Negative for: Muscle or joint pain, Stiffness , Joint swelling NEUROLOGIC/PSYCHIATRIC: Negative for: Weakness, Paralysis, Numbness, Tingling, Tremor, Nervousness, Depressed mood, Memory loss SKIN: Negative for: Rashes, Itching HEMATOLOGICAL/LYMPHATIC: Negative for: Easy bruising , Easy bleeding ENDOCRINE: Negative for: Heat or cold intolerance, Excessive sweating, Frequent urination, Frequent thirst PHYSICAL EXAMINATION: BP 125/82 Pulse 93 Ht 167.6 cm (5' 6 ) Wt 77.3 kg (170 lb 6.4 oz) BMI 27.50 kg/m BP w/Orthostatic Vitals Date and Time Orthostatic BP Orthostatic Pulse BP Pulse BP Position BP Site BP Cuff Size 06/15/23 1419 -- -- 125/82 93 -- -- -- General: Well appearing, in no acute distress. Skin: No clubbing, no cyanosis. Eyes: Extra ocular movements intact Oropharynx: Teeth in good repair. Neck: No jugular venous distention, no carotid bruits, carotids have a normal upstroke, no palpable thyromegaly. Lungs: Clear to auscultation bilaterally, no wheezing or rhonchi. Heart: Regular rhythm, PMI not displaced, S1, S2 normal, no S3, no S4, no heaves, no rub and no murmur. Abdomen: Soft, nontender, bowel sounds normal, no palpable organomegaly, no bruits. Extremities: No peripheral edema . Grade 2/4 distal pulses bilaterally. Neuro: Oriented to person, place and time, alert, cooperative, gait coordinated. CARDIOVASCULAR MEDICINE TESTING: Creatinine 1.49, electrolytes normal BNP 6000 TSH 3.8 Consistent with LBBB Todays ECG - couldn't confirm lead positioning 09/10/2022 - The left ventricle is normal in size. There is mild concentric left ventricular hypertrophy. Left ventricular systolic function is mildly decreased. EF = 48 5% (2D 4-ch.) - The right ventricle is normal in size. Right ventricular systolic function is normal. - Limited study to access for left ventricular function. - Exam was compared with the prior echocardiographic exam performed on 10/09/21. The LVEF is similar to the prior study though wall motion is interpreted differently on the current study. Echo 02/18/2023 - The left ventricle is mildly dilated. There is mild left ventricular hypertrophy. Left ventricular systolic function is moderately decreased. EF = 31 5% (2D 4-ch.) - Predominately mid-distal LAD wall motion abnormalities + LBBB dyssynchrony. - inferior wall motion appears preserved in SAX views. - The right ventricle is normal in size. Right ventricular systolic function is normal. - The left atrial cavity is mildly dilated. - There is moderate (2+ - 3+) mitral valve regurgitation due to restricted leaflet motion and apical tethering of normal mitral leaflet caused by LV enlargement. - AV, PV not assessed. Last ECHO Result Conclusion ECHO Collected: 05/25/2023 11:05 AM (Final result) Impression: CONCLUSIONS: - Exam indication: Evaluation of known heart failure to guide therapy - The left ventricle is severely dilated. Left ventricular systolic function is severely decreased. EF = 21 5% (2D biplane) Definity contrast used for endocardial border detection. Left ventricular diastolic function was not evaluated due to >2+ MR. - The right ventricle is normal in size. Right ventricular systolic function is moderately decreased. - The left atrial cavity is moderately dilated. - There is severe (3+ - 4+) holosystolic mitral valve regurgitation due to apical tethering of normal mitral leaflet caused by LV enlargement likely related to nonischemic cardiomyopathy. - There is severe (3+ - 4+) tricuspid valve regurgitation caused by annular dilatation. - Estimated right ventricular systolic pressure is 58 mmHg consistent with moderate pulmonary hypertension. Estimated right atrial pressure is 15 mmHg based on IVC assessment. Estimated right ventricular systolic pressure is 58 mmHg consistent with moderate pulmonary hypertension. Estimated right atrial pressure is 15 mmHg based on IVC assessment. - Exam was compared with the prior echocardiographic exam performed on 02/18/2023([facility]). LV is more dilated, severity of MR, TR and RVSP have increased. * * * Final * * * [facility] 02/2023 [place] Coronary Artery Disease in the LAD (Severe) and LCX (Mild) Successful PCI of LAD I have personally reviewed the Electrocardiogram, Chest X-ray, Laboratory Testing, and Echocardiogram. Assessment IMPRESSION: Ms. Elias is a 77 year old female with hypertension, diabetes, history of cardiomyopathy with LV dysfunction (back in 2018, with subsequent recovery and normalization of EF), peripheral arterial disease (aortoiliac disease status post Right axillobifemoral bypassbypass) --- recent decompensated heart failure with hospitalization in February 2023. Found to have severe LV dysfunction EF 30%. Underwent coronary revascularization without notable improvement. Interestingly coinciding with this significant drop in LV systolic function, he has marked widening of the QRS complex (greater than 160 ms). Some but not all ECGs show a pattern consistent with a complete left bundle branch block morphology. She is currently on maximum GDMT. I agree she is an excellent candidate for primary prevention ICD therapy, and also cardiac resynchronization. I described the procedure to the patient and her . She was concerned with her prior axillary femoral bypass surgery, I reassured her that the leads will traverse the upper venous system (which is totally separate from the arterial system and grafts). She is agreeable to proceeding and we will move forward with scheduling. I will have Arleth hold her Plavix just 3 days before her surgery, to minimize bleeding risk. CONTACT INFORMATION: Afshan Deng MD documented in this encounter [facility] 06-15-2023 Note [facility] 06-10-2023 Miscellaneous Notes Called Ms. Elias regarding lab work. NT pro higher, Cr at 1.3. She reports feeling about the same from a dyspnea standpoint since she saw me last in clinic. Weight initially down to 173 and now up to 175 again. Lack of energy, no lightheadedness, dizziness etc. Will increase lasix 60mg AM and 40mg PM from 40 AM/20PM. Repeat labs on Wednesday - ordered and will see her on Wednesday in clinic. Advised that if she feels lightheaded, dizzy, worsening dyspnea, chest discomfort etc or other worsening sxs she should go to the nearest ED. documented in this encounter [facility] 06-04-2023 Miscellaneous Notes Called Ms. Elias with regards to her message. Reports dyspnea is improving and so are her symptoms. Given this will leave lasix at 40mg AM and 20mg PM and follow up lab work on Wednesday regarding further changes. All questions answered. documented in this encounter [facility] 06-02-2023 Note HNO ID: [id number] Author: MELVIN SWARTZ MA Service: ? Author Type: Box Closing Machine Operator Type: Procedures Filed: 06/02/2023 11:38 Note Text: [facility] 06-02-2023 Procedure note Procedure(s): EXTERNAL [employer]ER, CGM SYS Images from the original note were not included. documented in this encounter [facility] 06-02-2023 Note [facility] 06-02-2023 History of Present illness Narrative Endocrinology Follow-up History of Present Illness Arleth Elias is a 76 year old female presents today for follow up of DM Type 2. PMH significant HTN, systolic CHF and cardiomyopathy. Metformin was discontinued in July 2022 due to severe diarrhea. Last Endocrinology visit was with me on 01/27/23. Ozempic was increased to 2 mg once weekly. Patient receives Ozempic through patient assistance program. She continues to tolerate Ozempic well and denies side effects. She has slowly weaned down Levemir as instructed to 20 units daily. She denies hypoglycemia. Last HbA1c was 6.4% on 01/27/23. POC HbA1c in office today is 5.4%. Date of Diagnosis: 2018 Last HbA1c: Hemoglobin A1C (%) Date Value 06/10/2022 6.9 08/14/2020 7.3 10/18/2019 7.5 02/01/2019 6.2 Hemoglobin A1C (POCT) (%) Date Value 06/02/2023 5.4 01/27/2023 6.4 11/04/2022 7.5 Complications Microvascular: denies Macrovascular: CAD Diabetic Foot and Retinal Eye Exam not Overdue Physical Activity: Regular Diet: CHO Controlled Diet SMBG Summary of Personal CGM Findings: Dates worn: 05/20/23- 06/02/23 CGM Type: CipherAppse 1- CGM recording is adequate for interpretation. Worn 82% of time. 2- Average glucose is 110 mg/dl. 3. 99% time in range 70-180mg/dL 4. Coefficient of variation: 18.8% 5. Total frequency of hypoglycemia: 0% with BG<70 * Hypoglycemia patterns: n/a *Nocturnal hypoglycemia was not noted 6- Hyperglycemic episodes 1% with BG>180 * Hyperglycemia Patterns: postprandial Current DM Related Medications: Current Medications 06/02/2023 DIABETES THERAPIES Medication Dosage Pharm Subclass insulin detemir U-100 (LEVEMIR) 100 unit/mL (3 mL) injection pen Inject 28 Units subcutaneously daily at bedtime. Insulin Analogs - Long Acting semaglutide (OZEMPIC) 1 mg/dose (4 mg/3 mL) pen Inject 1 mg subcutaneously once weekly Antihyperglycemic - Glucagon-Like Peptide-1 (GLP-1) Receptor Agonists CARDIOVASCULAR Medication Dosage Pharm Subclass metoprolol succinate ER (TOPROL XL) 25 mg 24 hr tablet Take 1 tablet by mouth once daily. Beta Blockers Cardiac Selective rosuvastatin (CRESTOR) 40 mg tablet Take 1 tablet by mouth daily at bedtime. Antihyperlipidemic - HMG CoA Reductase Inhibitors (statins) valsartan (DIOVAN) 40 mg tablet Take 0.5 tablets by mouth once daily. Angiotensin II Receptor Blockers (ARBs) DIURETICS Medication Dosage Pharm Subclass furosemide (LASIX) 40 mg tablet Take 1 tablet by mouth once daily. Take 40mg in the morning and 20mg in the afternoon. Diuretic - Loop ANTI-PLATELET THERAPIES Medication Dosage Pharm Subclass aspirin, enteric coated (ASPIRIN, ENTERIC COATED) 81 mg EC tablet Take 81 mg by mouth once daily. Salicylate Analgesics clopidogrel (PLAVIX) 75 mg tablet Take 1 tablet by mouth once daily. Platelet Aggregation Inhibitors - Thienopyridine Agents ASPIRIN Medication Dosage Pharm Subclass aspirin, enteric coated (ASPIRIN, ENTERIC COATED) 81 mg EC tablet Take 81 mg by mouth once daily. Salicylate Analgesics OTHER Medication Dosage Pharm Subclass allopurinol (ZYLOPRIM) 100 mg tablet allopurinol 100 mg tablet Hyperuricemia Therapy - Xanthine Oxidase Inhibitors blood sugar diagnostic (BLOOD GLUCOSE TEST) test strip Use as instructed to monitor glucose. One touch ultra verio test strips. Medical Supplies and DME - Blood Glucose Tests Blood-Glucose Sensor (FREESTYLE RU 3 SENSOR) mauricio Use new sensor every 14 days to monitor blood glucose. Medical Supplies and DME - Glucose Monitoring Test Supplies CPAP/BIPAP/OTHER Type .CPAPSettings into a note to see current settings/supplies/DME information. Medical Supply, FDB Superset fluticasone (FLONASE) 50 mcg/actuation nasal spray fluticasone propionate 50 mcg/actuation nasal spray,suspension Nasal Corticosteroids Insulin [place], Disposable, (BD ULTRA-FINE RUBIA PEN NEEDLE) 32 gauge x 5/32 ndle BD Ultra-Fine Rubia Pen Needle 32 gauge x 5/32 Medical Supplies and DME - Insulin [place]-Syringes and Admin Supplies Lancets lancets Use as instructed Medical Supplies and DME - Glucose Monitoring Test Supplies magnesium oxide (MAG-OX) 400 mg (241.3 mg magnesium) tablet TAKE 1 TABLET BY MOUTH TWICE DAILY. TAKE SEPERATELY FROM DOXYCYCLINE Antacid - Magnesium Past History, Medications, Allergies PAST MEDICAL HISTORY Diagnosis Date Cardiomyopathy (HCC) Claudication (HCC) DM (diabetes mellitus) (HCC) HTN (hypertension) Incontinence NSVT (nonsustained ventricular tachycardia) (HCC) Sciatica Systolic CHF (HCC) PAST SURGICAL HISTORY Procedure Laterality Date CHOLECYSTECTOMY REMV CATARACT EXTRACAP,INSERT LENS Bilateral TOTAL ABDOMINAL HYSTERECT W/WO RMVL TUBE OVARY ALLERGIES Allergen Reactions Penicillins Anaphylaxis, Hives Iodinated Contrast * Other: See Comments Throat itching to some Xray dye >20-30 years ago FAMILY HISTORY Problem Relation Age of Onset other (cabg) Mother other (pacemaker) Mother Diabetes Father Lung Cancer Father COPD Brother Social History Tobacco Use Smoking status: Former Smokeless tobacco: Never Tobacco comments: Social for approx 1 year around age 36 Vaping Use Vaping Use: Never used Substance Use Topics Alcohol use: Not Currently Drug use: Never Review of Systems GENERAL: No weight loss, malaise or fevers RESPIRATORY: Negative for cough, hemoptysis, wheezing, COPD, dyspnea or shortness of breath CARDIOVASCULAR: Negative for chest pain, leg swelling, hypertension, CHF or palpitations GI: No nausea, vomiting, or diarrhea ENDOCRINE: Negative for cold or heat intolerance, polyuria, polydipsia and goiter Feet: No problems NEUROLOGIC:Negative for focal numbness or weakness, headaches and dizziness or syncope. Physical examination BP 100/62 Pulse 96 Wt 79 kg (174 lb 2.6 oz) BMI 28.11 kg/m General appearance: Well appearing, alert, in no acute distress, well-hydrated, well nourished. Skin: Skin color, texture, turgor normal, no suspicious rashes or lesions HEART: normal rate LUNGS: unlabored, normal respiratory rate EXTREMITIES No deformities, No skin discoloration and No edema NEURO: Speech normal, mental status intact, no tremor noted. Previous Laboratory Results LABS Glucose (mg/dL) Date Value 05/25/2023 105 04/16/2023 101 03/01/2023 123 02/21/2021 202 08/14/2020 101 04/02/2020 188 Potassium (mmol/L) Date Value 05/25/2023 4.6 02/21/2021 4.0 Sodium (mmol/L) Date Value 05/25/2023 140 04/16/2023 141 03/01/2023 140 02/21/2021 141 08/14/2020 140 04/02/2020 137 Chloride (mmol/L) Date Value 05/25/2023 102 04/16/2023 104 03/01/2023 105 02/21/2021 103 08/14/2020 101 04/02/2020 100 CO2 (mmol/L) Date Value 05/25/2023 26 04/16/2023 26 03/01/2023 26 02/21/2021 26 08/14/2020 28 04/02/2020 29 Creatinine (mg/dL) Date Value 05/25/2023 1.31 04/16/2023 1.04 03/01/2023 1.26 02/21/2021 0.74 08/14/2020 0.73 04/02/2020 0.74 BUN (mg/dL) Date Value 05/25/2023 25 04/16/2023 18 03/01/2023 26 02/21/2021 20 08/14/2020 17 04/02/2020 27 Anion Gap (mmol/L) Date Value 05/25/2023 12 04/16/2023 11 03/01/2023 9 02/21/2021 12 08/14/2020 11 04/02/2020 8 Calcium (mg/dL) Date Value 02/21/2021 9.2 08/14/2020 9.5 04/02/2020 9.6 Calcium, Total (mg/dL) Date Value 05/25/2023 9.6 04/16/2023 9.4 03/01/2023 9.8 eGFR- (no units) Date Value 02/21/2021 >60 08/14/2020 >60 04/02/2020 >60 eGFR-All Other Races (.) Date Value 02/21/2021 >60 08/14/2020 >60 04/02/2020 >60 Estimated Glomerular Filtration Rate (mL/min/1.73m ) Date Value 05/25/2023 42 04/16/2023 56 03/01/2023 44 ALT (U/L) Date Value 02/17/2023 10 02/16/2023 11 06/10/2022 19 08/14/2020 18 01/03/2020 40 01/03/2020 Account Credited TSH Date Value Ref Range Status 02/16/2023 4.300 (H) 0.270 - 4.200 mIU/L Final 06/10/2022 3.640 0.270 - 4.200 mIU/L Final 12/01/2018 2.640 0.400 - 5.500 uU/mL Final Impression/Recommendations IMPRESSION Arleth Elias is a 76 year old here for evaluation of DM Type 2 with cardiovascular complications. POC HbA1c was 5.4% in office today. Patient has not experienced any hypoglycemia on current regimen. Discussed decreasing Levemir at length today, patient is choosing not to decrease Levemir dose today as she is afraid to change her regimen. Patient advised if she experiences any hypoglycemia to call the office and we will decrease Levemir dosage. Will continue current regimen. Patient is agreeable with this plan. RECOMMENDATIONS: 1. Glycemic control: Target HbA1C is less than 7.0% per ADA guidelines. --Patient is currently at target. Plan: Continue Ozempic 2 mg once weekly Continue Levemir to 20 units once daily at bedtime Follow up in 6 months Glucose targets as: Fasting 90-130, before meals 100-130, and bedtime under 150 mg/dL. The patient was reminded to check their blood glucose as directed and to record the data in a logbook. This patient was advised to bring their logbook to each office visit. I recommended at least 150 minutes per week of moderate physical activity, such as walking and to reduce carbohydrates and overall caloric intake. 2. Hypertension/BP control: BP goal for patients with diabetes is 130/80. -- Patient is at target on current regimen. 3. Lipids: Target LDL cholesterol in patients with diabetes is less than 100, less than 70 if patient has overt CVD. Several studies have shown cardiovascular benefits of statin therapy in all patients with diabetes over age 40 with at least 1 CVD risk factor. Cholesterol, Total Date Value Ref Range Status 12/15/2022 103 <200 mg/dL Final Comment: <200 mg/dL, Desirable 200-239 mg/dL, Borderline high >239 mg/dL, High HDL Cholesterol Date Value Ref Range Status 12/15/2022 41 >39 mg/dL Final Comment: 40-59 mg/dL, Acceptable >59 mg/dL, High: Negative risk factor for coronary heart disease <40 mg/dL, Low: Positive risk factor for coronary heart disease LDL Cholesterol Date Value Ref Range Status 12/15/2022 33 <100 mg/dL Final Comment: <100 mg/dL, Optimal 100-129 mg/dL, Near optimal/above optimal 130-159 mg/dL, Borderline high 160-189 mg/dL, High >189 mg/dL, Very high Secondary prevention optimal LDL Cholesterol levels are recommended to be < 70 mg/dL Triglyceride Date Value Ref Range Status 12/15/2022 145 <150 mg/dL Final Comment: <150 mg/dL, Normal 150-199 mg/dL, Borderline high 200-499 mg/dL, High >499 mg/dL, Very high -- This patient is currently at target on statin therapy. 4. Nephropathy screening: Annual measurement of urine albumin excretion is recommended in patients with diabetes. Albumin/Creat Ratio (mg/g) Date Value 06/10/2022 <26 10/18/2019 Not calculated Protein, Urine (no units) Date Value 06/10/2022 Negative 10/18/2019 Negative Creatinine, Ur Random (UCRR) (mg/dL) Date Value 06/10/2022 45.3 10/18/2019 51.1 -- This patient does not have microalbuminuria and is not on RAMEZ-I or ARB therapy. 5. Ophthalmology: Annual dilated eye exams are recommended for patients with type 1 and type 2 diabetes. -- This patient is up to date with their annual eye exam and has no history of retinopathy --[facility] July 2022. Patient to continue to follow up with his PCP and with other consultants regarding his other medical problems. Any part of this document that has been added/copied & pasted from other documents has been reviewed for accuracy and updated as appropriate at the time of the patient encounter I spent a total of 30 minutes on the date of the service which included preparing to see the patient, [id number] patient care, completing clinical documentation, obtaining and/or reviewing separately obtained history, performing a medically appropriate examination, counseling and educating the patient/family/caregiver, ordering medications, tests, or procedures, independently interpreting results (not separately reported), and communicating results to the patient/family/caregiver. Mikel Barahona APRN.CNP (Signed electronically to expedite mailing) documented in this encounter [facility] 05-31-2023 Nurse Note Images from the original note were not included. [facility] [place] [facility]ez Department of Cardiovascular Medicine OUTPATIENT VISIT DATE: 05/31/2023 OUTPATIENT VISIT TYPE: Furosemide [facility] Initial Vital Signs: Respirations 22, Pulse 104, Blood pressure 117/74, Pulse oximetry 95 Vital signs 5 minutes post Furosemide push: Respirations 22, Pulse 104, Blood pressure 123/84, Pulse oximetry 97 INTRAVENOUS DOCUMENTATION: IV: A 22 gauge angiocath was started in the right arm. Patient tolerated well. Furosemide intravenous push given at 4:55 PM Dose: 40mg IV: Removed at 5:01PM Does IV site appear clean and dry: Yes Any redness: No Any swelling: No Ms. Elias was discharged in no distress . Supervising Provider: Stanley Strange MD documented in this encounter [facility] 05-31-2023 History of Present illness Narrative Images from the original note were not included. [facility] [place] [facility] SECTION OF HEART FAILURE and CARDIAC TRANSPLANT MEDICINE [facility] OUTPATIENT VISIT DATE May 31, 2023 OUTPATIENT VISIT TYPE New Patient PRIMARY CARE PHYSICIAN: Aure Little, PHARM TECH ([facility]) [address] [place] [address] CHIEF COMPLAINT: Establish Care HISTORY OF PRESENT ILLNESS: Arleth Elias is a 77 year old female with a medical history that includes heart failure with recovered LVEF (25% --> 61%) and newly reduced again, CAD now s/p PCI to LAD 02/2023, HTN, HLD PVD s/p right axillobifemoral bypass 12/2019, DM who follows with Dr. Pritchard. She has a hx of NICM since 2019, LVEF ana maria 35%, ischemic work up at that time with non-obstructive CAD. She was managed on medication and LVEF had improved to ~ 60% 03/2020 and in 09/2022 LVEF noted to be ~ 48-50%. She has been getting regular follow up and in Feb she presented to [facility] after an echocardiogram was done which noted a depressed LVEF. She was transferred to s/p [facility] wit discrete ~70% LAD lesion, + iFR s/p PCI with [facility]. Echo done there with LVEF ~ 30%. She followed with RAMIRO Ross and due to low BP, fatigue and weakness she was sent to the ED. She was given IV fluids and she refused admissions. She saw RAMIRO [place] 03/2023 and had started cardiac rehab. She had a follow up echo done last week which noted LVEF that was slightly worse and worsening MR/TR therefore referred to me urgently. Today Ms. Elias reports feeling not very good - she reports getting dyspneic with minimal activity and at time even at rest. She states that her weight has gone up over the past week or so and she has noticed now that she gets dyspneic with walking from the car to the rehab. She also noticed increased peripheral edema, no orthopnea, no PND, no palpitations, no lightheadedness, no syncope. Appetite is good, energy levels are down. She notes that up until 10 days ago she was doing cardiac rehab and was doing well - progressing in activity. Increased lasix to BID for about 1 wk. Home BP: 100s/70s. Weight: usually 173 upto 177 today and yesterday CV Problem List/Medical History: Heart failure with reduced EF: suspect mostly non-ischemic CM with obstructive mLAD disease. Echo 05/25/23: LVEF 20%, LVEDd 6.1cm, severe MR/TR, IVC dilated. Echo 02/2023: LVEF 30%, RV wnl. LVEdd 5.8cm. CAD s/p PCI to mLAD with TRACY 02/2023 PVD s/p right axillobifemoral bypass 12/2019 DM: PAST MEDICAL HISTORY Diagnosis Date Cardiomyopathy (HCC) Claudication (HCC) DM (diabetes mellitus) (HCC) HTN (hypertension) Incontinence NSVT (nonsustained ventricular tachycardia) (HCC) Sciatica Systolic CHF (HCC) PAST SURGICAL HISTORY Procedure Laterality Date CHOLECYSTECTOMY REMV CATARACT EXTRACAP,INSERT LENS Bilateral TOTAL ABDOMINAL HYSTERECT W/WO RMVL TUBE OVARY SOCIAL HISTORY Social History Tobacco Use Smoking status: Former Smokeless tobacco: Never Tobacco comments: Social for approx 1 year around age 36 Vaping Use Vaping Use: Never used Substance Use Topics Alcohol use: Not Currently Drug use: Never FAMILY HISTORY Problem Relation Age of Onset other (cabg) Mother other (pacemaker) Mother Diabetes Father Lung Cancer Father COPD Brother ALLERGIES: ALLERGIES Allergen Reactions Penicillins Anaphylaxis, Hives Iodinated Contrast * Other: See Comments Throat itching to some Xray dye >20-30 years ago CURRENT MEDICATIONS: valsartan (DIOVAN) 40 mg tablet^Take 0.5 tablets by mouth once daily.^Disp: 45 tablet^Rfl: 3 rosuvastatin (CRESTOR) 40 mg tablet^Take 1 tablet by mouth daily at bedtime.^Disp: 90 tablet^Rfl: 3 metoprolol succinate ER (TOPROL XL) 25 mg 24 hr tablet^Take 1 tablet by mouth once daily.^Disp: 90 tablet^Rfl: 3 furosemide (LASIX) 20 mg tablet^Take 1 tablet by mouth once daily.^Disp: ^Rfl: clopidogrel (PLAVIX) 75 mg tablet^Take 1 tablet by mouth once daily.^Disp: 90 tablet^Rfl: 3 blood sugar diagnostic (BLOOD GLUCOSE TEST) test strip^Use as instructed to monitor glucose. One touch ultra verio test strips.^Disp: 300 Each^Rfl: 3 Lancets lancets^Use as instructed^Disp: 300 Each^Rfl: 3 insulin detemir U-100 (LEVEMIR) 100 unit/mL (3 mL) injection pen^Inject 28 Units subcutaneously daily at bedtime.^Disp: ^Rfl: Blood-Glucose Sensor (FREESTYLE RU 3 SENSOR) mauricio^Use new sensor every 14 days to monitor blood glucose.^Disp: 6 Each^Rfl: 3 CPAP/BIPAP/OTHER^Type .CPAPSettings into a note to see current settings/supplies/DME information.^Disp: 1 Each^Rfl: 0 semaglutide (OZEMPIC) 1 mg/dose (4 mg/3 mL) pen^Inject 1 mg subcutaneously once weekly^Disp: 1 Each^Rfl: 11 (Patient taking differently: Inject 1.5 mg subcutaneously once weekly) magnesium oxide (MAG-OX) 400 mg (241.3 mg magnesium) tablet^TAKE 1 TABLET BY MOUTH TWICE DAILY. TAKE SEPERATELY FROM DOXYCYCLINE^Disp: 180 tablet^Rfl: 3 aspirin, enteric coated (ASPIRIN, ENTERIC COATED) 81 mg EC tablet^Take 81 mg by mouth once daily.^Disp: ^Rfl: Insulin [place], Disposable, (BD ULTRA-FINE RUBIA PEN NEEDLE) 32 gauge x 5/32 ndle^BD Ultra-Fine Rubia Pen Needle 32 gauge x 5/32 ^Disp: ^Rfl: allopurinol (ZYLOPRIM) 100 mg tablet^allopurinol 100 mg tablet^Disp: ^Rfl: fluticasone (FLONASE) 50 mcg/actuation nasal spray^fluticasone propionate 50 mcg/actuation nasal spray,suspension^Disp: ^Rfl: REVIEW OF SYSTEMS: 10 point review of systems completed and negative unless mentioned above. PATIENT ENTERED DATA: No flowsheet data found. PHQ-9 03/03/2020 09/18/2020 01/20/2022 Score 4 9 2 PROMIS Global Health - (T-Scores - the mean of general population = 50. Five points is a clinically meaningful difference.) 06/22/2022 11/01/2022 01/21/2023 Physical T-Score 34.9 37.4 37.4 Mental T-Score 50.8 41.1 41.1 PHYSICAL EXAMINATION: BP 90/67 Pulse 104 Ht 5' 6 (1.68m) Wt 177 lb 11.2 oz (80.6kg) BMI 28.70 kg/(m^2). General: well developed, well nourished female in no acute distress. Neck: supple, no carotid bruits. JVD ~12 cm H2O. Cardiac: Regular rate and rhythm. Normal S1 and S2. No S3 or S4. 3/6 systolic murmur Lungs: Good inspiratory effort, breath sounds equal. Clear to auscultation bilaterally. No wheezing, rhonchi or rales. Abdominal: soft, nontender, non-distended. Normal bowel sounds. Extremities: Edema: 1-2+. Normal Gait. Pulses: normal radial and posterior tibial artery pulses. Normal capillary refill. Skin: Warm to touch. No clubbing or cyanosis. Neuro: awake, oriented with no focal neurological deficit. Psychiatric: appropriate mood and affect for her clinical situation. CARDIOVASCULAR MEDICINE TESTING: I personally reviewed the following testing. EKG (today): sinus tachycardia with intraventricular conduction delay in a LBBB pattern - QRS 160msec Echo 05/25/23: LV dilated Macario 6.1cm, EF ~ 20%. 3-4+ MR, RVSP 58 mmHg, severe TR Echo 02/2023: LVEF 30%, Macario 5.8cm, Echo 09/2022: LVEF 48%, RV wnl. Ischemic - C 02/2023 [place] Coronary Artery Disease in the LAD (Severe) and LCX (Mild) Successful PCI of LAD LABS ADONAY High Sensitivity 17 02/16/2023 AD[facility]AY High Sensitivity 16 02/16/2023 ADONAY High Sensitivity 16 02/16/2023 Cholesterol, Total (mg/dL) Date Value 12/15/2022 103 08/14/2020 119 HDL Cholesterol (mg/dL) Date Value 12/15/2022 41 08/14/2020 47 LDL Cholesterol (mg/dL) Date Value 12/15/2022 33 08/14/2020 43 Triglyceride (mg/dL) Date Value 12/15/2022 145 08/14/2020 144 @RESUFAST)HBA1C)@ TSH 4.300 02/16/2023 No results found for: FE , SAT , TIBC , EDVIN GDMT: - BB: toprol XL 25mg daily - ACEI/ARB/ARNI: valsartan 2-mg daily - MRA: no - SGLT2: no - Vasodilators: no - Device: no - Cardiomems: no - Other: lasix 20mg BID, aspirin 81mg, plavix 75mg daily, lipitor IMPRESSION and PLAN/Recommendation In summary, Arleth Elias is a 77 year old who is being managed today for the following issues: 1. Non-ischemic Cardiomyopathy/acute on chronic systolic heart failure: NYHA functional class IIIb, Stage C heart failure, Clinical Class B - warm and wet. Etiology: non-ischemic with CAD. GDMT: low Bps limiting uptitation. Continue with toprol XL 25mg daily, valsartan 20mg daily. Increase lasix to 40mg AM and 20mg PM. Will give one time IV lasix 40mg in clinic today. Educated on if sxs progress she should go to the [facility] Follow up phone call tomorrow, Message on Wednesday. Follow up in 2 wks. Labs in 1wk Discussed her IVCD in a LBBB pattern, QRS ~ 160msec and think she would benefit from EP eval for BERRY GROWER. 2. CAD s/p PCI with TRACY to mLAD 02/2023 Continue with DAPT and statin. 3. Pulmonary HTN: likely due to group 2. 4. DAV: Cr upto 1.3 on most recent labs -- increasing diuretics as above. Follow up labs in 1 wk. 5. Hx of NSVT: holter in the past without high burden ~ 2%. No palpitations currently. Thank you for allowing me to participate in the care of your patient. I will continue to follow up with Arleth Elias in my heart failure clinic with plans to see her back in 2wks. In the interim do not hesitate to reach out to me with questions or concerns. I personally spent 63 minutes in total time involved in the management and care of this patient. We discussed natural history of disease, current treatment options, and future potential treatment options. We discussed diet, exercise, other non-medical management as above. Stanley Strange MD [facility] Product Development Worker Heart and Vascular [place] [phone] Appointment: [phone] documented in this encounter [facility] 05-31-2023 Note [facility] 05-31-2023 Instructions Stanley Strange MD - 05/31/2023 3:23 PM EST Thank you for your visit. It was great to see you today! PLEASE READ ALL THE INSTRUCTIONS Medication changes: INCREASE LASIX TO 40MG AM and 20MG PM. PLEASE SEND ME A MESSAGE on WEDNESDAY regarding how you are feeling. Blood tests: labs in 1 week Referral to other specialties: Electrophysiology Additional Testing: Follow up Visit: 2 weeks. Other instructions: Engage in 30 minutes of continuous exercise at least 4 days per week if you can tolerate Please take your blood pressures, heart rate, and weight daily. Please notify us via [employer] if your Systolic BP (top number) < 90 or > 150 consistently. Please record these values and bring them during your next clinic visit so we can adjust your medications appropriately. If blood work or testing is done at an outside facility please send us a message to clarify if we have received the labs. If you have not heard from us regarding lab work or follow up testing please send us a message to ensure that we have received the tests. If you notice a 3 lbs weight gain within 3 days, please call our office for further instructions. Limit the amount of salt intake to less than 2 grams (or 2000 mg) and fluid intake to less than 2 liters (~60 ounces) a day. Please notify if you have any change in medical conditions/new diagnosis/hospitalizations. Your medications may interact with new medication or new diagnosis. Please notify your providers to check/monitor for interractions Avoid NSAIDS- Ibuprofen, aleve, motrin inview of heart kidney injury risk Please send a mychart message or call with any questions or concerns: Outpatient Number: [phone] Thank you, Stanley Strange MD [facility] Heart Failure [facility] Transplant Product Development Worker [facility] Scheduling Line- to make appointments- call [phone] documented in this encounter [facility] 05-28-2023 Miscellaneous Notes Spoke with pt to confirm appt/address/floor with Dr. Strange on 05/31/23. Pt confirmed understanding and address. documented in this encounter [facility] 05-20-2023 Miscellaneous Notes The following approved medication requests have been transmitted electronically. Requested Prescriptions Signed Prescriptions Disp Refills valsartan (DIOVAN) 40 mg tablet 45 tablet 3 Sig: Take 0.5 tablets by mouth once daily. Jeffrey Steiner APRN.CNP BOB 03/22/23 documented in this encounter [facility] 05-19-2023 Miscellaneous Notes The following approved medication requests have been transmitted electronically. Requested Prescriptions Signed Prescriptions Disp Refills rosuvastatin (CRESTOR) 40 mg tablet 90 tablet 3 Sig: Take 1 tablet by mouth daily at bedtime. Authorizing Provider: CHALO PRITCHARD Ordering User: JEFFREY STEINER APRN.CNP Last office visit 03/22/23 Future appt scheduled 06/17/23 Last Lipid 12/15/22 Last CMP 02/24/23 documented in this encounter [facility] 04-16-2023 Note [facility] 04-07-2023 Note [facility] 03-22-2023 Note [facility] 03-19-2023 Miscellaneous Notes Form faxed , confirmation received. Called [facility] regarding CGM update. [facility] states they do no even have this patient in their system. Unable to find information in chart regarding forms for CGM. documented in this encounter [facility] 03-19-2023 Miscellaneous Notes Faxed a form to [facility] for Physician's Written order for CGM and supplies. Faxed with facesheet, copy of insurance cards and last office notes. Confirmation received. Sent for scan. documented in this encounter [facility] 03-16-2023 Miscellaneous Notes Received 2 Pens of Ozempic from [employer]. Processed per protocol. Patient notified. documented in this encounter [facility] 03-11-2023 Miscellaneous Notes Placed Renewal Patient Assistance form on Shhmooze's desk for Omid Nordisk for Ozempic 2mg. ( Dose increase for 2023 form). Sent Patient her portion of the form to be completed. documented in this encounter [facility] 03-11-2023 Miscellaneous Notes Received a form from [employer] for Written Order for diabetic testing supplies. Placed on Shhmooze's desk, awaiting completion. documented in this encounter [facility] 02-26-2023 Miscellaneous Notes Form completed, faxed with last office notes, confirmation received. Sent for scan. [facility] Written Order for diabetic testing supplies. Placed on Mikel's desk, awaiting completion. Mikel will return to office 03/01/23 documented in this encounter [facility] 02-25-2023 Miscellaneous Notes Sent this message to patient in later encounter. Went to [facility] via squad rehydrated with water/orally, not IV no meds changed that I can see Cr was 1.72 (was 0.89 on 02/18 at [facility]) I will have her decrease her lasix to 20mg daily--- have her weigh herself daily and if3# increase in 1 day or 5# increase in 1 week-- increase dose back to 40mg for 2 days repeat BMP on Wednesday decrease the coreg from 25mg BID to 12.5mg BID call the office Wednesday with update on BP and HR, weight and sxs if BP <90/60, hold the jane Ross, RN, MSN, CUT OUT MARKER-C Adult Nurse Practitioner Elsy Yañez Department of Cardiovascular Medicine [facility] Heart, Vascular, Thoracic [place] [facility] documented in this encounter [facility] 02-24-2023 Note [facility] 02-24-2023 History of Present illness Narrative [facility] SE[facility]IOLOGY 02/24/2023 OUTPATIENT VISIT TYPE HEART FAILURE FOLLOW UP PRIMARY CARE PHYSICIAN: Aure Little, GUALBERTO, PHARM TECH SUBJECTIVE: CHIEF COMPLAINT: hospital follow up for CHF LAST SEEN IN THIS DEPARTMENT: 12/17/2022 Elements of this note, including HPI, ROS, Physical Exam, Assessment and Plan were copied and pasted from previous office visit notes completed within our department. Updates have been made where appropriate/noted and reflect current exam and medical decision making from date of this visit. HISTORY OF PRESENT ILLNESS: Arleth Elias is a 77 year old female. PMH of HFimpEF (previously ana maria EF 35 --> 61%, 48% in 09/2022) non-obstructive CAD s/p LHC (known 50-60% stenosis to mid LAD 06/08/2019 previously IFR 0.9), HTN, HLD, PVD s/p right axillobifemoral bypass graft on 01/02/20 for severe abdominal aortic stenosis at level of renal arteries, Type 2 DM, untreated ERASMO, NSVT, mild carotid atherosclerosis. She follows with Dr. Pritchard- last seen 12/17/2022 and at that time was doing well-- no meds/plan of care changed at that appointment. 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 Patient was admitted to [facility] last week for chest pressure and shortness of breath that had been present for several weeks. Was initially sent home without a change to meds/plan of care. In the [place] ER: HS troponin: 16 --> 16 -->17, BNP: 2090 (no BNP for comparison), CXR: IMPRESSION: Findings suggestive of hydrostatic pulmonary edema/CHF. Treated with Lasix 20 mg in the ER She was transferred to for cath. Cardiac cath done 02/17/2023 revealed 70% stenosis in the mid LAD, 40% stenosis in the ostial circumflex. LVEDP 13. She underwent PCI with TRACY to the LAD and started on aspirin and brilinta. Post procedure she developed shortness of breath. EKG was completed with no new ischemic findings. She was given a one time dose of lasix. TTE showed LVEF < 35% DAPT with aspirin and plavix (changed from brilinta due to SHORTNESS OF BREATH, loaded with 600 mg), high intensity statin crestor 40, most recent LDL 33 from December 2022. GDMT: BB: coreg 25 mg bid RAMEZ/ARB/ARNI: entresto cost prohibitive start valsartan 40 mg dialy and increase to bid if tolerated MRA: defer and start as outpatient SGLT2: will need to consider cost Diuretic: lasix 20 mg bid Today-- she tells me that sice discharge, she has been feeling weak with exercise intolerance. Home BP hypotensive Weight has been 179-181# at home she feels that she is eating and drinking well-- limiting sodium she denies CP, palpitations, claudication, orthopnea, syncope, edema, abd bloating REVIEW OF SYSTEMS GENERAL: No malaise, fevers, chills, unexpected change in weight HEENT: No headache, hearing Impairment, nosebleeds NECK: No swelling, pain, stiffness RESPIRATORY: Negative for cough, wheezing, chest pain with respiration, sputum production GI: No nausea, difficulty swallowing, vomiting, diarrhea, constipation, abdominal pain, hematochezia, black tarry stools. Appetite is good NEURO: No paralysis, loss of consciousness HEMATOLOGICAL/LYMPHATIC: Does not bruise or bleed easily ENDOCRINE: No significant heat/cold intolerance, excessive sweating, frequent urination, frequent thirst CARDIOVASCULAR MEDICINE TESTING: ECHO (02/18/2023) - Technically difficult exam due to body habitus. - Exam indication: Limited LV function/EF - The left ventricle is mildly dilated. There is mild left ventricular hypertrophy. Left ventricular systolic function is moderately decreased. EF = 31 5% (2D 4-ch.) - Predominately mid-distal LAD wall motion abnormalities + LBBB dyssynchrony. - inferior wall motion appears preserved in SAX views. - The right ventricle is normal in size. Right ventricular systolic function is normal. - The left atrial cavity is mildly dilated. - There is moderate (2+ - 3+) mitral valve regurgitation due to restricted leaflet motion and apical tethering of normal mitral leaflet caused by LV enlargement. - AV, PV not assessed. - Exam was compared with the prior echocardiographic exam performed on 09/10/2022 report comparison only: prior LVEF reported as 48%. and now some MR. NARY ANGIOGRAPHY (02/17/2023) LEFT MAIN TRUNK: No Stenosis LEFT ANTERIOR DESCENDIN% Stenosis Location: Mid, Calcified DIAGONAL #1: No Stenosis LEFT CIRCUMFLEX: 40% Stenosis Location: Ostial MARGINAL #1: No Stenosis DOMINANT: NO RIGHT CORONARY: No Stenosis DOMINANT: YES POSTERIOR DESCENDING: No Stenosis POSTERIOR LATERAL: No Stenosis HOME SLEEP STUDY (10/2021) IMPRESSION/RECOMMENDATIONS: 1. This study confirms a diagnosis of at least moderate obstructive sleep apnea. 2. The results of this study may represent an underestimation of the degree of obstructive sleep apnea, especially hypopneas, because of the known limitations of HSAT, such as inability to record arousals because EEG is not recorded. 3. Untreated sleep apnea is associated with a variety of consequences including but not limited to hypertension, heart disease, stroke, obesity and daytime sleepiness that can affect normal daytime functioning. 4. PAP therapy is the usual first line therapy. Other treatment options for ERASMO may include weight loss, positional therapy, oral appliance, upper airway surgery, upper airway stimulation, treatment of allergies and avoidance of alcohol and sedating medications (such as opioids, benzodiazepines, and muscle relaxers) that can cause respiratory depression. ECHO (09/2022) - Exam indication: systolic heart failure, Dyspnea - The left ventricle is normal in size. There is mild concentric left ventricular hypertrophy. Left ventricular systolic function is mildly decreased. EF = 48 5% (2D 4-ch.) - The right ventricle is normal in size. Right ventricular systolic function is normal. - Limited study to access for left ventricular function. - Exam was compared with the prior echocardiographic exam performed on 10/09/21. The LVEF is similar to the prior study though wall motion is interpreted differently on the current study. CATIONS Current Outpatient Medications on File Prior to Visit Medication Sig valsartan (DIOVAN) 40 mg tablet Take 1 tablet by mouth once daily. clopidogrel (PLAVIX) 75 mg tablet Take 1 tablet by mouth once daily. blood sugar diagnostic (BLOOD GLUCOSE TEST) test strip Use as instructed to monitor glucose. One touch ultra verio test strips. Lancets lancets Use as instructed insulin detemir U-100 (LEVEMIR) 100 unit/mL (3 mL) injection pen Inject 28 Units subcutaneously daily at bedtime. Blood-Glucose Sensor (FREESTYLE RU 3 SENSOR) mauricio Use new sensor every 14 days to monitor blood glucose. semaglutide (OZEMPIC) 1 mg/dose (4 mg/3 mL) pen Inject 1 mg subcutaneously once weekly (Patient taking differently: Inject 1.5 mg subcutaneously once weekly) magnesium oxide (MAG-OX) 400 mg (241.3 mg magnesium) tablet TAKE 1 TABLET BY MOUTH TWICE DAILY. TAKE SEPERATELY FROM DOXYCYCLINE aspirin, enteric coated (ASPIRIN, ENTERIC COATED) 81 mg EC tablet Take 81 mg by mouth once daily. rosuvastatin (CRESTOR) 40 mg tablet Take 1 tablet by mouth daily at bedtime. Insulin [place], Disposable, (BD ULTRA-FINE RUBIA PEN NEEDLE) 32 gauge x 5/32 ndle BD Ultra-Fine Rubia Pen Needle 32 gauge x 5/32 allopurinol (ZYLOPRIM) 100 mg tablet allopurinol 100 mg tablet fluticasone (FLONASE) 50 mcg/actuation nasal spray fluticasone propionate 50 mcg/actuation nasal spray,suspension CPAP/BIPAP/OTHER Type .CPAPSettings into a note to see current settings/supplies/DME information. (Patient not taking: Reported on 02/24/2023) Current Facility-Administered Medications on File Prior to Visit Medication perflutren lipid microspheres 1.3 mL in NaCl (PF) 0.9% 10 mL injection (DEFINITY) sodium chloride 0.9 % (flush) 10 mL (BD POSIFLUSH) PERTINENT LABORATORY STUDIES reviewed in [facility] PHYSICAL EXAMINATION: BP 81/56 (BP Site: Left Arm, BP Position: Sitting, BP Cuff Size: Regular Adult) Pulse 93 Ht 167.6 cm (5' 6 ) Wt 83.3 kg (183 lb 9.6 oz) SpO2 100% BMI 29.63 kg/m INITIALLY Physical Exam Constitutional: General: No acute distress. Appearance: Normal appearance. Eyes: General: No scleral icterus. Extraocular Movements: Extraocular movements intact. Neck: No JVD, no bruit Cardiovascular: Rate and Rhythm: Normal rate and regular rhythm. Heart sounds: Normal heart sounds. No murmur. No friction rub. No gallop. Right lower leg: no edema Left lower leg: no edema Respiratory: Effort: Pulmonary effort is normal. Breath sounds: Clear to auscultation. No rhonchi, crackles, or wheeze Gastrointestinal: General: There is no distension. Palpations: Abdomen is soft. Tenderness: There is no abdominal tenderness. There is no guarding. Musculoskeletal: Normal ROM. Skin: General: Skin is warm and dry. Neurological: Mental Status: Alert &Oriented. Moving all extremities spontaneously. No focal neurological deficits Psychiatric: Mood and Affect: Mood normal. Speech: Speech normal. HOWEVER, the said that she was very nauseous and was going to vomit patient suddenly became limp in the chair, eyes rolled back, + pallor she began to seize as evidenced by fine convulsions in the arms/hands and right leg-- this lasted approximately 1 minute -- an emergency was called - called 911, got patient to the floor, retrieved AED and had at patient's side, Dr. Orr in the room -- the patient had spontaneous resolution of the symptoms noted above WITHOUT INTERVENTION -- she was taken to [facility] by 911 squad Last 4 Encounter Wt Readings: Date: Wt: 02/24/2023 83.3 kg (183 lb 9.6 oz) 02/17/2023 83.1 kg (183 lb 3.2 oz) 02/16/2023 83.1 kg (183 lb 1.6 oz) 01/27/2023 84.8 kg (187 lb) Last 4 Encounter BP Readings: Date: BP: 02/24/2023 81/56[pt's BP machine from home[ 02/17/2023 109/65 02/16/2023 126/72 01/27/2023 142/78 ASSESSMENT, PLAN AND RECOMMENDATIONS: Encounter Diagnosis ICD-10-CM 1. Systolic heart failure, unspecified HF chronicity (HCC) I50.20 2. Unresponsive R41.89 3. Hypotension, unspecified hypotension type I95.9 4. Sinus bradycardia R00.1 -- see emergency documented above - patient went to [facility] ER by squad, pertinent documentation including ECG, BP readings, cath and ECHO report and med list sent with patient; report called to the ER MD note to self for next appointment- patient will need appt with Dr. Strange (CHF MD) I spent 45 minutes in this visit Follow up: Will follow up with patient upon discharge from the hospital will anticipate medication changes Dwight Ross, RN, MSN, CUT OUT MARKER-C Adult Nurse Practitioner Cardiology [facility] ALLERGIES Allergen Reactions Penicillins Anaphylaxis, Hives Iodinated Contrast * Other: See Comments Throat itching to some Xray dye >20-30 years ago ACTIVE PROBLEM LIST Status Post Angioplasty With Stent - 02/17/2023 Acute Heart Failure With Reduced Ejection Fraction and Diastolic Dysfunction ([facility]) - 02/16/2023 Aortoiliac Occlusive Disease ([facility]) - 01/02/2020 Comment: S/p right axillo-femoral bypass graft on 01/01 Plan: Started ASA on POD 1 at 325mg Daily per Vascular surgeon Coronary Artery Disease - 06/08/2019 Cardiomyopathy ([facility]) - 06/07/2019 Preoperative Testing - 06/07/2019 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 There is mild concentric left ventricular hypertrophy. Left ventricular systolic function is normal. EF = 54 5% Home Medication Regimen: Coreg 25mg BID, lisinopril 40mg daily Plan: Lasix started by Cardiology Hold lisinopril due to recent hypotension Coreg restarted by cardiology Discontinue aldactone per cardiology Nonsustained Ventricular Tachycardia ([facility]) - 12/22/2018 Bruit of Left Carotid Artery - 12/22/2018 Claudication ([facility]) - 11/18/2018 Primary Hypertension - 11/18/2018 Comment: Home Medication Regimen: Coreg 25mg BID, lisinopril 40mg daily Plan: Hold lisinopril due to recent hypotension Coreg restarted by cardiology Mixed Hyperlipidemia - 11/18/2018 Comment: Home medication: Atorvastatin 80mg daily Plan: Continue atorvastatin Class 1 Obesity Due to Excess Calories With Serious Comorbidity and Body Mass Index (Bmi) of 32.0 to 32.9 in Adult - 11/18/2018 Posterior Tibial Tendonitis - 09/19/2015 Chronic Pain of Right Ankle - 09/19/2015 PAST MEDICAL HISTORY Diagnosis Date Cardiomyopathy (HCC) Claudication (HCC) DM (diabetes mellitus) (HCC) HTN (hypertension) Incontinence NSVT (nonsustained ventricular tachycardia) (HCC) Sciatica Systolic CHF (HCC) PAST SURGICAL HISTORY Procedure Laterality Date CHOLECYSTECTOMY REMV CATARACT EXTRACAP,INSERT LENS Bilateral TOTAL ABDOMINAL HYSTERECT W/WO RMVL TUBE OVARY FAMILY HISTORY Problem Relation Age of Onset other (cabg) Mother other (pacemaker) Mother Diabetes Father Lung Cancer Father COPD Brother Social History Tobacco Use Smoking status: Former Smokeless tobacco: Never Tobacco comments: Social for approx 1 year around age 36 Vaping Use Vaping Use: Never used Substance Use Topics Alcohol use: Not Currently Drug use: Never documented in this encounter [facility] 02-19-2023 Note HNO ID: [id number] Author: Luann Balderas APRN.CNP, DNP Service: Cardiovascular Medicine Author Type: Nurse Practitioner Type: Plan of Care Filed: 03/18/2023 11:00 AM Note Text: Echo 02/18/23: EF 31%, wall motion abnormalities, LBBB, 2-3+ MR. NYHA Functional Class II-III. Luann Balderas DNP Cardiovascular Medicine [facility] 02-19-2023 Note HNO ID: [id number] Author: Shay Church Service: ? Author Type: ? Type: Plan of Care Filed: 02/19/2023 9:50 AM Note Text: PHARMACY BEDSIDE DELIVERY SERVICE Patient Name: Arleth Elias The marked outpatient medications were Filled at: [facility] and delivered to the patient's bedside to [place] [address] Medication List START taking these medications clopidogrel 75 mg tablet Commonly known as: PLAVIX Take 1 tablet by mouth once daily. valsartan 40 mg tablet Commonly known as: DIOVAN Take 1 tablet by mouth once daily. CONTINUE taking these medications allopurinol 100 mg tablet Commonly known as: ZYLOPRIM aspirin, enteric coated 81 mg EC tablet Commonly known as: ASPIRIN, ENTERIC COATED BD ULTRA-FINE RUBIA PEN NEEDLE 32 gauge x / Generic drug: Insulin [place] (Disposable) BLOOD GLUCOSE TEST test strip Generic drug: blood sugar diagnostic Use as instructed to monitor glucose. One touch ultra verio test strips. carvedilol 25 mg tablet Commonly known as: COREG Take 1 tablet by mouth twice daily. CPAP/BIPAP/OTHER Type .CPAPSettings into a note to see current settings/supplies/DME information. fluticasone 50 mcg/actuation nasal spray Commonly known as: FLONASE FREESTYLE RU 3 SENSOR Mauricio Generic drug: Blood-Glucose Sensor Use new sensor every 14 days to monitor blood glucose. furosemide 20 mg tablet Commonly known as: LASIX Take 1 tablet by mouth twice daily. insulin detemir U-100 100 unit/mL (3 mL) injection pen Commonly known as: LEVEMIR Inject 28 Units subcutaneously daily at bedtime. Lancets lancets Use as instructed magnesium oxide 400 mg (241.3 mg magnesium) tablet Commonly known as: MAG-OX TAKE 1 TABLET BY MOUTH TWICE DAILY. TAKE SEPERATELY FROM DOXYCYCLINE rosuvastatin 40 mg tablet Commonly known as: CRESTOR Take 1 tablet by mouth daily at bedtime. semaglutide 1 mg/dose (4 mg/3 mL) pen Commonly known as: OZEMPIC Inject 1 mg subcutaneously once weekly You might also be taking other medications not listed above. If you have questions about any of your other medications, talk to the person who prescribed them or your Primary Care Provider. Shay Church PAGER: [phone] February 19, 2023 9:49 AM [facility] 02-18-2023 Note HNO ID: [id number] Author: Tabitha Valles LISW Service: Care Management Author Type: Video Editing Internship Type: Care Mgt Initial Assessment Filed: 02/18/2023 3:18 PM Note Text: CARE MANAGEMENT PROGRESS NOTE SERVICE DATE: 02/18/2023 SERVICE TIME: 3:11 PM LOS: 1 day Needs Prior to Discharge: Ready for Discharge Assessment completed at [place] Yesterday. CARE MANAGEMENT: ASSESSMENT AND DISCHARGE PLAN SERVICE DATE: February 17, 2023 SERVICE TIME: 12:08 PM PCP: Aure Little CNP, GUALBERTO Primary Contact: Extended Emergency Contact Information Primary Emergency Contact: Chetan Elias Address: [address] [place] [address] [facility] Mobile Relation: Spouse Secondary Emergency Contact: Keyanna Tarango Address: [address] [place], [place] [id number] [place] [address] Mobile Relation: Daughter Admission Status: Inpatient Insurance Provider: MEDICARE A AND B Discharge Planning requested by: Per Department Practice Potential Transition Plans No Services Indicated;Home Advance Directives Current Advance Directive: None 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 Attempted to Assist with AD Completion: Yes Action: Education Provided;Patient Unwilling Current Living Arrangements and Support Lives with: Spouse/significant other Type of Residence: Private Residence (House) Does the patient have to climb stairs at home?: No (No steps to ente rhome and bedroom on the 1st floor) Support: Children, Family members, Friends/neighbors, Spouse/significant other How do you manage to accomplish the following: Independent: Ambulation;Bathe/Shower;Dress;Divine ls/Meal Prep;Going to the bathroom;Medication Management;Transportation to appointments/community Current Services/Equipment Current Post-Acute Service(s): DME Current DME Type: Cane, Walker, Elevated toilet seat Discharge Planning Patient Goal(s): Be able to go home, General wellness, Increase strength, Better mobility Cub Run of Choice Explained: Cub Run of Choice Given: No Reason Not Given: No placements necessary Are you interested in bedside delivery of your medications? Yes Discharge Planning Participant(s): Patient Caregiver Assessment: Caregiver is ready, willing and able to meet the patient's needs as recommended by the inter-professional team: No Caregiver needed Transport at Discharge: Transportation Arrangements: Car Needs Prior to Discharge: Needs Prior to Discharge: Ready for Discharge;Discharge Prescriptions Post-Acute Discharge Plan: Assessment completed with patient at bedside, explained my role in transitional care planning. Patient lives at home with her spouse Chetan. Patient denies discharge needs at this time and plans to have her spouse pick her up when discharged. Care management will continue to follow and assist should any discharge needs arise. SIGNATURE: Malissa Vogel RN PATIENT NAME: Arleth Elias DATE: February 17, 2023 TIME: 12:08 PM CONTACT #: [phone] No skilled needs anticipated at discharge. Possible lifevest referral started. 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 Pt at bedside with her belongings. [facility] 02-17-2023 Note HNO ID: [id number] Author: Malissa Vogel RN Service: Care Management Author Type: Registered Nurse Type: Care Mgt Initial Assessment Filed: 02/17/2023 12:12 PM Note Text: CARE MANAGEMENT: ASSESSMENT AND DISCHARGE PLAN SERVICE DATE: February 17, 2023 SERVICE TIME: 12:08 PM PCP: Aure Little CNP, PHARM TECH Primary Contact: Extended Emergency Contact Information Primary Emergency Contact: Chetan Elias Address: [address] [place] [address] Mobile Relation: Spouse Secondary Emergency Contact: Keyanna Tarango Address: [address] [place] [address] Mobile Relation: Daughter Admission Status: Inpatient Insurance Provider: MEDICARE A AND B Discharge Planning requested by: Per Department Practice Potential Transition Plans No Services Indicated;Home Advance Directives Current Advance Directive: None 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 Attempted to Assist with AD Completion: Yes Action: Education Provided;Patient Unwilling Current Living Arrangements and Support Lives with: Spouse/significant other Type of Residence: Private Residence (House) Does the patient have to climb stairs at home?: No (No steps to ente rhome and bedroom on the 1st floor) Support: Children, Family members, Friends/neighbors, Spouse/significant other How do you manage to accomplish the following: Independent: Ambulation;Bathe/Shower;Dress;Divine ls/Meal Prep;Going to the bathroom;Medication Management;Transportation to appointments/community Current Services/Equipment Current Post-Acute Service(s): DME Current DME Type: Cane, Walker, Elevated toilet seat Discharge Planning Patient Goal(s): Be able to go home, General wellness, Increase strength, Better mobility Cub Run of Choice Explained: Cub Run of Choice Given: No Reason Not Given: No placements necessary Are you interested in bedside delivery of your medications? Yes Discharge Planning Participant(s): Patient Caregiver Assessment: Caregiver is ready, willing and able to meet the patient's needs as recommended by the inter-professional team: No Caregiver needed Transport at Discharge: Transportation Arrangements: Car Needs Prior to Discharge: Needs Prior to Discharge: Ready for Discharge;Discharge Prescriptions Post-Acute Discharge Plan: Assessment completed with patient at bedside, explained my role in transitional care planning. Patient lives at home with her spouse Chetan. Patient denies discharge needs at this time and plans to have her spouse pick her up when discharged. Care management will continue to follow and assist should any discharge needs arise. SIGNATURE: Malissa Vogel RN PATIENT NAME: Arleth Elias DATE: February 17, 2023 TIME: 12:08 PM CONTACT #: [phone] [facility] 02-17-2023 Note HNO ID: [id number] Author: Vannesa Mills RN Service: Nursing Author Type: Registered Nurse Type: Progress Notes Filed: 02/17/2023 5:01 PM Note Text: Clarified with Keisha Hilliard if pt needed pre medicated before procedural contrast this afternoon due to pt allergy. [facility] 02-17-2023 Note HNO ID: [id number] Author: Aria Flores RN Service: Care Management Author Type: Registered Nurse Type: Care Mgt Progress Note Filed: 02/17/2023 11:13 AM Note Text: CARE MANAGEMENT PROGRESS NOTE SERVICE DATE: 02/17/2023 SERVICE TIME: 10:55 AM LOS: 1 day Informed by Vannesa ROQUE patient is scheduled for a L heart cath @ 1:30 and will be going to [facility] on a MARISSA. Confirmed with Dr. Keisha LONDON transport is appropriate. Requested 12:00 pm citrus picker with [facility] they gave 1:00 pm citrus picker time. Spoke with Dwight Ross CNP with cardiology, we spoke with Mary @ [facility] [phone], states it is ok to send the patient @ 1:00 pm. If not picked up at 1:00 pm, requests to be called, informed, MYA Granado. SIGNATURE: Aria Flores RN PATIENT NAME: Arleth Elias DATE: February 17, 2023 TIME: 10:54 AM PAGER/CONTACT #: [phone] [facility] 02-17-2023 Note HNO ID: [id number] Author: Nelson Darling APRN.PHARM TECH Service: [facility] Author Type: Nurse Practitioner Type: Progress Notes Filed: 02/16/2023 11:58 PM Note Text: [facility] Provider Note Call Initiation By: [facility] Primary Reason for Call: Admission to ICU;Cardiac / Hemodynamic status Objective Data:: BP 108/72 Pulse 87 Temp 36.4 ?C (97.5 ?F) (Oral) Resp 25 Ht 167.6 cm (5' 6 ) Wt 83.6 kg (184 lb 4.8 oz) SpO2 94% BMI 29.75 kg/m? Assessment: This is a 77 year old female with PMH of s/p right axillobifemoral bypass graft on 01/02/20 for severe abdominal aortic stenosis at level of renal arteries,non-obstructive CAD s/p LHC on 06/07/2019 (Dr. Pritchard) and 06/08/2019 (Dr. Kan, under op report, 50-60% stenosis to mid LAD, RCA and Lcx normal, follows with Dr. 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 She came to the ED and was found to be in acute heart failure. The Ed revealed, CXR with pulmonary edema,on 2L O2, BNP 2090, EKG changes, HST (16,16,17). She was given Lasix 20 mg IVP. Awaiting transfer to [facility] for C. PAST MEDICAL HISTORY Diagnosis Date Cardiomyopathy (HCC) Claudication (HCC) DM (diabetes mellitus) (HCC) HTN (hypertension) Incontinence NSVT (nonsustained ventricular tachycardia) (HCC) Sciatica Systolic CHF (HCC) Intervention(s): Review admission plan of care;Diuretic therapy Plan/Intervention (other): Transferring to [facility] for Left heart cath, Cardiology consulted, NPO after midnight, sliding scale insulin This patient has the following organ/system impairment(s): : Acute heart failure, diastolic No intake or output data in the 24 hours ending 02/16/23 2347 CBC, Coags, BMP, Mg, Phos Recent Labs 02/16/23 1249 WBC 11.06* HB 12.2 HCT 38.1 PLT 177 NA 138 K 3.7 CHLOR 100 CO2 24 BUN 28* CREAT 0.85 GLUC 144* CA 8.4* MG 2.5* CSF AND Dilantin Liver Function, Amylase, AND Lipase Recent Labs 02/16/23 1249 TPROT 6.8 ALB 4.0 ALT 11 AST 18 ALKPHOS 97 TBILI 1.6* Cardiac Enzymes ABGs SIGNATURE: Nelson Darling APRN.CNP PATIENT NAME: Arleth Elias DATE: February 16 2023 TIME: 11:46 PM [facility] 02-16-2023 Note HNO ID: [id number] Author: Erasto Beltran RT(R) Service: Radiology Author Type: Technologist Type: Progress Notes Filed: 02/16/2023 1:03 PM Note Text: Radiology Service Progress Note PATIENT NAME: Arleth Elias DATE OF SERVICE: February 16, 2023 TIME: 1:03 PM PATIENT IDENTITY VERIFICATION COMPLETED USING TWO (2) IDENTIFIERS: Name and Date of confirmed by patient verbally and Name and Date of confirmed by identification band. FALL SCREENING: Has the patient had 2 falls in the last year or 1 fall with injury or currently using an Ambulatory Assistive Device (Walker, Cane, Wheelchair, Crutches, etc.)? Emergency Room Patient: Screened in ED PATIENT GENDER DATA: Female. status: : No status: NO. PATIENT RELEVANT IMPLANT DATA REVIEWED: Not Applicable RADIOLOGY DEPARTMENT: General X-ray: Exam(s) Completed: Chest X-Ray PERIPHERAL IV DATA: Not applicable SIGNED BY: RT Pranav(R) February 16, 2023 1:03 PM [facility] 01-27-2023 Miscellaneous Notes Mikel increased patient's Ozempic to 2mg for the next calender year as patient states she has enough 1mg to get her through the year. Form in Incomplete Green folder above Endo Nurse desk. Sent patient [employer] message advising to contact us when she receives her proof of income for 2022 so she can complete her portion of the form. documented in this encounter [facility] 01-27-2023 Note [facility] 01-27-2023 History of Present illness Narrative Endocrinology Follow-up History of Present Illness Arleth Elias is a 76 year old female presents today for follow up of DM Type 2. PMH significant HTN, systolic CHF and cardiomyopathy. Metformin was discontinued in July 2022 due to severe diarrhea.She was switched from Trulicity to Ozempic between appointments through PAP and Levemir dosage was decreased. She is tolerating Ozempic well without side effects. Last Endocrinology visit was with me on 11/04/22. Patient reports she has decreased her dietary intake of carbohydrates. Last HbA1c was 7.5% on 11/04/22. POC HbA1c in office today is 6.8%. Date of Diagnosis: 2018 Last HbA1c: Hemoglobin A1C (%) Date Value 06/10/2022 6.9 08/14/2020 7.3 10/18/2019 7.5 02/01/2019 6.2 Hemoglobin A1C (POCT) (%) Date Value 01/27/2023 6.4 11/04/2022 7.5 Complications Microvascular: denies Macrovascular: CAD Diabetic Foot and Retinal Eye Exam not Overdue Physical Activity: Regular Diet: CHO Controlled Diet SMBG Frequency of Monitoring: One time a day BG Values: AM: 112-147 Hypoglycemia Frequency: n/a Current DM Related Medications: Current Medications 01/27/2023 DIABETES THERAPIES Medication Dosage Pharm Subclass insulin detemir U-100 (LEVEMIR) 100 unit/mL (3 mL) injection pen Inject 35 Units subcutaneously. Insulin Analogs - Long Acting semaglutide (OZEMPIC) 1 mg/dose (4 mg/3 mL) pen Inject 1 mg subcutaneously once weekly Antihyperglycemic - Glucagon-Like Peptide-1 (GLP-1) Receptor Agonists CARDIOVASCULAR Medication Dosage Pharm Subclass carvedilol (COREG) 25 mg tablet Take 1 tablet by mouth twice daily. Alpha-Beta Blockers rosuvastatin (CRESTOR) 40 mg tablet Take 1 tablet by mouth daily at bedtime. Antihyperlipidemic - HMG CoA Reductase Inhibitors (statins) DIURETICS Medication Dosage Pharm Subclass furosemide (LASIX) 20 mg tablet Take 1 tablet by mouth twice daily. Diuretic - Loop ANTI-PLATELET THERAPIES Medication Dosage Pharm Subclass aspirin, enteric coated (ASPIRIN, ENTERIC COATED) 81 mg EC tablet Take 81 mg by mouth once daily. Salicylate Analgesics ASPIRIN Medication Dosage Pharm Subclass aspirin, enteric coated (ASPIRIN, ENTERIC COATED) 81 mg EC tablet Take 81 mg by mouth once daily. Salicylate Analgesics OTHER Medication Dosage Pharm Subclass allopurinol (ZYLOPRIM) 100 mg tablet allopurinol 100 mg tablet Hyperuricemia Therapy - Xanthine Oxidase Inhibitors CPAP/BIPAP/OTHER Type .CPAPSettings into a note to see current settings/supplies/DME information. Medical Supply, [employer]DB Superset fluticasone (FLONASE) 50 mcg/actuation nasal spray fluticasone propionate 50 mcg/actuation nasal spray,suspension Nasal Corticosteroids Insulin [place], Disposable, (BD ULTRA-FINE RUBIA PEN NEEDLE) 32 gauge x 5/32 ndle BD Ultra-Fine Rubia Pen Needle 32 gauge x 5/32 Medical Supplies and DME - Insulin [place]-Syringes and Admin Supplies magnesium oxide (MAG-OX) 400 mg (241.3 mg magnesium) tablet TAKE 1 TABLET BY MOUTH TWICE DAILY. TAKE SEPERATELY FROM DOXYCYCLINE Antacid - Magnesium Past History, Medications, Allergies PAST MEDICAL HISTORY Diagnosis Date Cardiomyopathy (HCC) Claudication (HCC) DM (diabetes mellitus) (HCC) HTN (hypertension) Incontinence NSVT (nonsustained ventricular tachycardia) (HCC) Sciatica Systolic CHF (HCC) PAST SURGICAL HISTORY Procedure Laterality Date CHOLECYSTECTOMY TOTAL ABDOMINAL HYSTERECT W/WO RMVL TUBE OVARY ALLERGIES Allergen Reactions Penicillins Anaphylaxis, Hives Dye Itching Xray dye > 20-30 years ago, throat itching Iodinated Contrast * Other: See Comments Throat itching to some Xray dye >20-30 years ago No family history on file. Social History Tobacco Use Smoking status: Former Smokeless tobacco: Never Tobacco comments: quit at 36. Substance Use Topics Alcohol use: Not Currently Drug use: Never Review of Systems Answers submitted by the patient for this visit: Core Review of Systems (Submitted on 11/01/2022) Fever : No Night Sweats: No Recent Unintentional Weight Change: No Nasal Congestion: No Hearing Loss: No Vision Disturbance: No A Cough: No Difficulty Breathing?: No Chest Pain: No Irregular Heart Beat: No Leg Swelling: No Nausea: No Diarrhea: No Black Tarry Stools: No Difficulty Urinating?: No Awaken at Night More Than Once to Urinate?: Yes Joint Pain or Stiffness: Yes Muscle Aches: Yes Leg or Foot Discomfort at Night?: Yes A Rash: No Dizziness: No Headaches: No Memory Loss: No Seizures: No Physical examination BP 142/78 Pulse 76 Wt 84.8 kg (187 lb) BMI 30.18 kg/m General appearance: Well appearing, alert, in no acute distress, well-hydrated, well nourished. Skin: Skin color, texture, turgor normal, no suspicious rashes or lesions HEART: normal rate LUNGS: unlabored, normal respiratory rate EXTREMITIES No deformities, No skin discoloration and No edema NEURO: Speech normal, mental status intact, no tremor noted. Previous Laboratory Results LABS Glucose (mg/dL) Date Value 12/15/2022 121 06/10/2022 132 08/29/2021 194 02/21/2021 202 08/14/2020 101 04/02/2020 188 Potassium (mmol/L) Date Value 12/15/2022 3.7 02/21/2021 4.0 Sodium (mmol/L) Date Value 12/15/2022 139 06/10/2022 142 08/29/2021 143 02/21/2021 141 08/14/2020 140 04/02/2020 137 Chloride (mmol/L) Date Value 12/15/2022 101 06/10/2022 101 08/29/2021 103 02/21/2021 103 08/14/2020 101 04/02/2020 100 CO2 (mmol/L) Date Value 12/15/2022 27 06/10/2022 29 08/29/2021 29 02/21/2021 26 08/14/2020 28 04/02/2020 29 Creatinine (mg/dL) Date Value 12/15/2022 1.00 06/10/2022 0.73 08/29/2021 0.76 02/21/2021 0.74 08/14/2020 0.73 04/02/2020 0.74 BUN (mg/dL) Date Value 12/15/2022 14 06/10/2022 15 08/29/2021 14 02/21/2021 20 08/14/2020 17 04/02/2020 27 Anion Gap (mmol/L) Date Value 12/15/2022 11 06/10/2022 12 08/29/2021 11 02/21/2021 12 08/14/2020 11 04/02/2020 8 Calcium (mg/dL) Date Value 02/21/2021 9.2 08/14/2020 9.5 04/02/2020 9.6 Calcium, Total (mg/dL) Date Value 12/15/2022 9.4 06/10/2022 9.4 08/29/2021 9.3 eGFR- (no units) Date Value 02/21/2021 >60 08/14/2020 >60 04/02/2020 >60 eGFR-All Other Races (.) Date Value 02/21/2021 >60 08/14/2020 >60 04/02/2020 >60 Estimated Glomerular Filtration Rate (mL/min/1.73m ) Date Value 12/15/2022 59 06/10/2022 86 08/29/2021 82 ALT (U/L) Date Value 06/10/2022 19 08/14/2020 18 01/03/2020 40 01/03/2020 Account Credited TSH Date Value Ref Range Status 06/10/2022 3.640 0.270 - 4.200 mIU/L Final 12/01/2018 2.640 0.400 - 5.500 uU/mL Final Impression/Recommendations IMPRESSION Arleth Elias is a 76 year old here for evaluation of DM Type 2 with cardiovascular complications. POC HbA1c was 6.4% in office today. Will decrease Levemir dosage today to prevent hypoglycemia. Plan to increase Ozempic to 2 mg once weekly with new PAP paperwork for 2023 for increased weight loss benefits. Plan to further decrease Levemir dosage with Ozempic increase to prevent hypoglycemia. Patient is agreeable with this plan. RECOMMENDATIONS: 1. Glycemic control: Target HbA1C is less than 7.0% per ADA guidelines. --Patient is currently at target. Plan: Continue Ozempic 1 mg once weekly- will increase to 2 mg once weekly with PAP paperwork increase Decrease Levemir to 28 units once daily at bedtime Follow up in 3 months Glucose targets as: Fasting 90-130, before meals 100-130, and bedtime under 150 mg/dL. The patient was reminded to check their blood glucose as directed and to record the data in a logbook. This patient was advised to bring their logbook to each office visit. I recommended at least 150 minutes per week of moderate physical activity, such as walking and to reduce carbohydrates and overall caloric intake. 2. Hypertension/BP control: BP goal for patients with diabetes is 130/80. -- Patient is at target on current regimen. 3. Lipids: Target LDL cholesterol in patients with diabetes is less than 100, less than 70 if patient has overt CVD. Several studies have shown cardiovascular benefits of statin therapy in all patients with diabetes over age 40 with at least 1 CVD risk factor. Cholesterol, Total Date Value Ref Range Status 12/15/2022 103 <200 mg/dL Final Comment: <200 mg/dL, Desirable 200-239 mg/dL, Borderline high >239 mg/dL, High HDL Cholesterol Date Value Ref Range Status 12/15/2022 41 >39 mg/dL Final Comment: 40-59 mg/dL, Acceptable >59 mg/dL, High: Negative risk factor for coronary heart disease <40 mg/dL, Low: Positive risk factor for coronary heart disease LDL Cholesterol Date Value Ref Range Status 12/15/2022 33 <100 mg/dL Final Comment: <100 mg/dL, Optimal 100-129 mg/dL, Near optimal/above optimal 130-159 mg/dL, Borderline high 160-189 mg/dL, High >189 mg/dL, Very high Secondary prevention optimal LDL Cholesterol levels are recommended to be < 70 mg/dL Triglyceride Date Value Ref Range Status 12/15/2022 145 <150 mg/dL Final Comment: <150 mg/dL, Normal 150-199 mg/dL, Borderline high 200-499 mg/dL, High >499 mg/dL, Very high -- This patient is currently at target on statin therapy. 4. Nephropathy screening: Annual measurement of urine albumin excretion is recommended in patients with diabetes. Albumin/Creat Ratio (mg/g) Date Value 06/10/2022 <26 10/18/2019 Not calculated Protein, Urine (no units) Date Value 06/10/2022 Negative 10/18/2019 Negative Creatinine, Ur Random (UCRR) (mg/dL) Date Value 06/10/2022 45.3 10/18/2019 51.1 -- This patient does not have microalbuminuria and is not on RAMEZ-I or ARB therapy. 5. Ophthalmology: Annual dilated eye exams are recommended for patients with type 1 and type 2 diabetes. -- This patient is up to date with their annual eye exam and has no history of retinopathy --[facility] [place] July 2022. Patient to continue to follow up with his PCP and with other consultants regarding his other medical problems. Any part of this document that has been added/copied & pasted from other documents has been reviewed for accuracy and updated as appropriate at the time of the patient encounter I spent a total of 45 minutes on the date of the service which included preparing to see the patient, [id number] patient care, completing clinical documentation, obtaining and/or reviewing separately obtained history, performing a medically appropriate examination, counseling and educating the patient/family/caregiver, ordering medications, tests, or procedures, independently interpreting results (not separately reported), and communicating results to the patient/family/caregiver. Mikel Barahona APRN.[email or web address] (Signed electronically to expedite mailing) documented in this encounter [facility] 12-17-2022 Note [facility] 12-17-2022 History of Present illness Narrative Images from the original note were not included. [facility] [place] [facility] December 17, 2022 Outpatient VISIT TYPE Established PRIMARY CARE PHYSICIAN: Alan Vega DO [address] [place] [id number] HISTORY OF PRESENT ILLNESS: Ms. Elias is a 77 year old female with a past medical history of Chronic systolic heart failure recovered LVEF 35%->61%, nonischemic cardiomyopathy, CAD status post [facility] on 06/07/2019 with 50-70% stenosis of the mid LAD, HTN, HLD, PVD sp right axillobifemoral bypass graft on 01/02/20 for severe aortic stenosis at the level of the renal arteries, DM, diverticulitis, ankle pain. Last visit was on 06/11/2022, per that note: ... she tells me that she will feel dizzy rarely. Her home BP monitor has been reading 15mmHg above our monitor. Thus her BP has been somewhat low. She is currently taking metformin which she believes is giving her diarrhea. She has some shortness of breath walking up a flight of stairs and has been feeling like her energy level is very low. She denies having any: chest pain, palpitations, orthopnea, LE edema, presyncope/syncope, N/V, bleeding, or other significant symptoms. Today, she tells me that she is doing well. She tells me that she is exercising without difficulty. She does have pain in both of her elbows and wrists and plans to see a maintenance mechanic telephone for this. She is on Ozempic and has lost weight although, not as much as she would have liked to of lost. She wore her compression stockings some this summer due to neuropathy in her feet and states that leg edema was improved from this. She denies having any: Chest pain, palpitations, shortness of breath, orthopnea, LE edema, presyncope/syncope, N/V, bleeding, or other significant symptoms. She is eating vegetables on most daily. She is on ozempic and feels that she has lost about 10lbs. She only occasionally has coffee. She will have an alcoholic beverage 3 times a year. She doesn't smoke or use any drugs. She goes to pool walking for an hour 2x per week. Family, father had cancer. Mother was in her early 60s with CABG and a pacemaker. 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 IMPRESSION: Encounter Diagnosis ICD-10-CM 1. Hypomagnesemia E83.42 2. Claudication ([facility]) I73.9 3. H/O aorto-femoral bypass Z95.828 4. Nonsustained ventricular tachycardia ([facility]) I47.29 5. Systolic heart failure, unspecified HF chronicity ([facility]) I50.20 6. 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 I25.10 7. Essential hypertension I10 8. Mixed hyperlipidemia E78.2 9. Hyperlipidemia associated with type 2 diabetes mellitus ([facility]) E11.69 E78.5 10. Moderate obstructive sleep apnea G47.33 11. Class 1 obesity due to excess calories with serious comorbidity and body mass index (BMI) of 32.0 to 32.9 in adult E66.09 Z68.32 12. Dyspnea, unspecified type R06.00 13. Chest discomfort R07.89 PLAN AND RECOMMENDATIONS: Claudication appears to be stable, previously seen by vascular surgery. Recommend that she is seen by vascular medicine, PVR noted to be abnormal. Of note she has a prior history of axillobifemoral bypass graft in 2019. Hx of NSVT noted, she is taking a b-genia(carvedilol 25mg BID), NSVT burden less than 2% the last time it was checked. Chronic systolic heart failure with recovered LVEF 48% at this time. Lower extremity edema very mild, she should consider using compression stockings for this. Continue current medications: Continue carvedilol to 25mg BID Continue Furosemide 20 mg twice daily Consider afterload reduction at next visit. We will discuss her symptoms at next visit and consider if further titration is necessary at next visit. CAD with intermediate lesion in the LAD, IFR 0.9. continue cardiac medications at this time. Continue cardiac medications: Aspirin, beta genia, statin. Goal blood pressure less than 130/80 mmHg. Will attempt to maintain systolic BP above 85mmHg. Continue current antihypertensive medications, BP is controlled. Also continue lifestyle modifications. Recheck BMP prior to next visit. Goal LDL is less than 70 mg/dL. Continue rosuvastatin as this may improve her A1c. Check lipids at least yearly. Goal A1C is less than 7.0%. ERASMO noted, FU with sleep medicine prior to next visit. We briefly discussed the importance of diet and exercise and maintaining ideal body weight. Continue working with endocrinology weight management. REVIEW OF SYSTEMS: Chest pain No Shortness of breath no Bleeding No Dizziness No Syncope No Palpations No 10 systems reviewed and are negative with the exception of pertinent positives described in HPI PHYSICAL EXAMINATION: via telephone BP 147/85 Pulse 81 Wt 85.7 kg (189 lb) SpO2 95% BMI 30.51 kg/m Gen.: No apparent distress, obese HEENT: normocephalic, EOMI, no JVD, No carotid bruit. Heart: regular rhythm, no significant murmur Lungs: clear to auscultation Abdomen: bowel sounds present Extremities: trace edema in feet BL. Musculoskeletal: chest wall nontender Neurological: alert and oriented Psychiatric: appropriate and cooperative Skin: no rash, cellulitis or lesions appreciated CARDIOVASCULAR MEDICINE TESTING: I have personally reviewed ECG, PVR report, echocardiogram report, stress test report, MCOT report, and labs ECG -97/7/23 Sinus rhythm with occasional PVC 81 bpm, ILBBB, minimal voltage criteria for LVH, ST and T wave abnormality consider lateral ischemia, abnormal ECG PVR-01/06/21 IMPRESSION Compared to prior study of 02/19/2020, Right TBI was .62; left was.56. No significant change in PVR waveforms throughout. RIGHT SIDE Resting right ankle brachial index: 1.25 Partially non-compressible arteries, TIARA not accurate. Right toe brachial index: 0.54 Non-compressible vessels, results called by PVR tracings. Abnormal toe brachial index at rest is evidence of peripheral artery disease. Right ankle: Moderate disease at rest. Aortic or bilateral iliofemoral disease. LEFT SIDE Resting left ankle brachial index: 1.29 Partially non-compressible arteries, TIARA not accurate. Left toe brachial index: 0.62 Non-compressible vessels, results called by PVR tracings. Abnormal toe brachial index at rest is evidence of peripheral artery disease. Left ankle: Moderate disease at rest. Aortic or bilateral iliofemoral disease. SPECT - 10/07/21 CONCLUSIONS: 1. SPECT Perfusion Study: Normal. 2. There is no scintigraphic evidence for inducible ischemia. 3. No evidence of scarred myocardium. 4. Left ventricle is normal in size. The left ventricle systolic function is normal. 5. Right ventricle is normal in size. 6. This is a low risk scan. Gated Stress FBP LVEF % 67 Echo-10/09/21 CONCLUSIONS: - Exam indication: Chest Pain - The left ventricle is normal in size. Left ventricular systolic function is mildly decreased. EF = 45 5% (3D) Grade I left ventricular diastolic dysfunction. - The right ventricle is normal in size. Right ventricular systolic function is normal. - Estimated right ventricular systolic pressure is 25 mmHg consistent with normal pulmonary artery pressures. Estimated right atrial pressure is 3 mmHg based on IVC assessment. - 1+ MR. - Exam was compared with the prior CC echocardiographic exam performed on 04/02/2020 ECHOL. The LV systolic function has mildly decreased ( vs normal EF on prior ). MCOT -05/18/2020 Patient had a min HR of 59 bpm, max HR of 193 bpm, and avg HR of 80 bpm. Predominant underlying rhythm was Sinus Rhythm. 12 Ventricular Tachycardia runs occurred, the run with the fastest interval lasting 7 beats with a max rate of 193bpm, the longest lasting 7 beats with an avg rate of 126 bpm. 3 Supraventricular Tachycardia runs occurred, the run with the fastest interval lasting 5 beats with a max rate of 193 bpm, the longest lasting 7 beats with an avg rate of 135 bpm. Isolated SVEs were rare (<1.0%), SVE Couplets were rare (<1.0%), and SVE Triplets were rare (<1.0%). Isolated VEs were occasional (1.9%, [id number]), VE Couplets were rare (<1.0%, 2064), and VE Triplets were rare (<1.0%, 32). Ventricular Bigeminy and Trigeminy were present. 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 Cardiac Catheterization 06/08/2019: LM : normal Mid LAD : 50--70% cx : see initial cath Latest Reference Range & Units Most Recent Sodium 136 - 144 mmol/L 139 12/15/22 10:28 Potassium 3.7 - 5.1 mmol/L 3.7 12/15/22 10:28 Chloride 97 - 105 mmol/L 101 12/15/22 10:28 CO2 22 - 30 mmol/L 27 12/15/22 10:28 BUN 7 - 21 mg/dL 14 12/15/22 10:28 Creatinine 0.58 - 0.96 mg/dL 1.00 (H) 12/15/22 10:28 Glucose 74 - 99 mg/dL 121 (H) 12/15/22 10:28 Protein, Total 6.3 - 8.0 g/dL 7.2 06/10/22 11:44 Calcium 8.5 - 10.2 mg/dL 9.4 12/15/22 10:28 Magnesium 1.7 - 2.3 mg/dL 2.2 10/08/22 14:28 Albumin 3.9 - 4.9 g/dL 4.2 06/10/22 11:44 Bilirubin, Total 0.2 - 1.3 mg/dL 0.7 06/10/22 11:44 Alkaline Phosphatase 34 - 123 U/L 115 06/10/22 11:44 ALT 7 - 38 U/L 19 06/10/22 11:44 AST 13 - 35 U/L 33 06/10/22 11:44 Anion Gap 9 - 18 mmol/L 11 12/15/22 10:28 eGFR >=60 mL/min/1.73m 59 (L) 12/15/22 10:28 Cholesterol, Total <200 mg/dL 103 12/15/22 10:28 Triglyceride <150 mg/dL 145 12/15/22 10:28 Fasting Time hrs 12 12/15/22 10:28 HDL Cholesterol >39 mg/dL 41 12/15/22 10:28 LDL Cholesterol <100 mg/dL 33 12/15/22 10:28 VLDL Cholesterol <30 mg/dL 29 12/15/22 10:28 TC:HDL Ratio <5.10 2.51 12/15/22 10:28 LDL:HDL Ratio <2.54 0.80 12/15/22 10:28 (H): Data is abnormally high (L): Data is abnormally low Hemoglobin (g/dL) Date Value 12/15/2022 12.8 08/14/2020 11.7 Hematocrit (%) Date Value 12/15/2022 40.0 08/14/2020 39.2 WBC (k/uL) Date Value 12/15/2022 8.31 08/14/2020 8.08 PAST MEDICAL HISTORY Diagnosis Date Cardiomyopathy (HCC) Claudication (HCC) DM (diabetes mellitus) (HCC) HTN (hypertension) Incontinence NSVT (nonsustained ventricular tachycardia) (HCC) Sciatica Systolic CHF (HCC) PAST SURGICAL HISTORY Procedure Laterality Date CHOLECYSTECTOMY TOTAL ABDOMINAL HYSTERECT W/WO RMVL TUBE OVARY Social History Tobacco Use Smoking status: Former Smokeless tobacco: Never Tobacco comments: quit at 36. Substance Use Topics Alcohol use: Not Currently Drug use: Never No family history on file. ALLERGIES Allergen Reactions Penicillins Anaphylaxis, Hives Dye Itching Xray dye > 20-30 years ago, throat itching Iodinated Contrast * Other: See Comments Throat itching to some Xray dye >20-30 years ago CURRENT MEDICATIONS: CPAP/BIPAP/OTHER^Type .CPAPSettings into a note to see current settings/supplies/DME information.^Disp: 1 Each^Rfl: 0 semaglutide (OZEMPIC) 1 mg/dose (4 mg/3 mL) pen^Inject 1 mg subcutaneously once weekly^Disp: 1 Each^Rfl: 11 magnesium oxide (MAG-OX) 400 mg (241.3 mg magnesium) tablet^TAKE 1 TABLET BY MOUTH TWICE DAILY. TAKE SEPERATELY FROM DOXYCYCLINE^Disp: 180 tablet^Rfl: 3 aspirin, enteric coated (ASPIRIN, ENTERIC COATED) 81 mg EC tablet^Take 81 mg by mouth once daily.^Disp: ^Rfl: rosuvastatin (CRESTOR) 40 mg tablet^Take 1 tablet by mouth daily at bedtime.^Disp: 90 tablet^Rfl: 3 carvedilol (COREG) 25 mg tablet^Take 1 tablet by mouth twice daily.^Disp: 180 tablet^Rfl: 3 insulin detemir U-100 (LEVEMIR) 100 unit/mL (3 mL) injection pen^Inject 35 Units subcutaneously.^Disp: ^Rfl: furosemide (LASIX) 20 mg tablet^Take 1 tablet by mouth twice daily.^Disp: 60 tablet^Rfl: 2 Insulin [place], Disposable, (BD ULTRA-FINE RUBIA PEN NEEDLE) 32 gauge x 5/32 ndle^BD Ultra-Fine Rubia Pen Needle 32 gauge x 5/32 ^Disp: ^Rfl: allopurinol (ZYLOPRIM) 100 mg tablet^allopurinol 100 mg tablet^Disp: ^Rfl: fluticasone (FLONASE) 50 mcg/actuation nasal spray^fluticasone propionate 50 mcg/actuation nasal spray,suspension^Disp: ^Rfl: aspirin 325 mg tablet^Take 1 tablet by mouth once daily.^Disp: 90 tablet^Rfl: 1 furosemide (LASIX) 20 mg tablet^Take 1 tablet by mouth once daily.^Disp: 30 tablet^Rfl: 0 (Patient taking differently: Take 20 mg by mouth twice daily.) Signed: Chalo Pritchard DO December 17, 2022 documented in this encounter [facility] 12-02-2022 Miscellaneous Notes Spoke to Janae from [employer]. He states that the order for the increased dosage of Oxempic should be delivered in 10-14 business days. Patient updated via [employer] documented in this encounter [facility] 11-04-2022 Miscellaneous Notes [facility] home Care Respiratory received an order for PAP therapy. Unfortunately, the patient resides out of service area and we are unable to provide. Please send the referral to an alternate provider. Thank you, [facility] [phone] fax documented in this encounter [facility] 11-04-2022 History of Present illness Narrative Endocrinology Follow-up History of Present Illness Arleth Elias is a 76 year old female presents today for follow up of DM Type 2. PMH significant HTN, systolic CHF and cardiomyopathy. Last Endocrinology visit was with me on 08/07/22 and Metformin was discontinued due to severe diarrhea. Levemir insulin and Trulicity were continued at that time. She was switched to Ozempic between appointments through PAP. She is tolerating Ozempic well without side effects. However, she reports some hyperglycemia on the lower doses of Ozempic. Ozempic was increased to 1 mg in between appointments and she just took her first dose two days ago. Last HbA1c was 6.9% on 06/10/22. POC HbA1c in office is 7.5%. Date of Diagnosis: 2018 Last HbA1c: Hemoglobin A1C (%) Date Value 06/10/2022 6.9 08/14/2020 7.3 10/18/2019 7.5 02/01/2019 6.2 Hemoglobin A1C (POCT) (%) Date Value 11/04/2022 7.5 Complications Microvascular: denies Macrovascular: CAD Diabetic Foot and Retinal Eye Exam not Overdue Physical Activity: Regular Diet: CHO Controlled Diet SMBG Frequency of Monitoring: One time a day BG Values: AM: 110-148 Hypoglycemia Frequency: n/a Current DM Related Medications: Current Medications 11/04/2022 DIABETES THERAPIES Medication Dosage Pharm Subclass insulin detemir U-100 (LEVEMIR) 100 unit/mL (3 mL) injection pen Inject 35 Units subcutaneously. Insulin Analogs - Long Acting semaglutide (OZEMPIC) 1 mg/dose (4 mg/3 mL) pen Inject 1 mg subcutaneously once weekly Antihyperglycemic - Glucagon-Like Peptide-1 (GLP-1) Receptor Agonists CARDIOVASCULAR Medication Dosage Pharm Subclass carvedilol (COREG) 25 mg tablet Take 1 tablet by mouth twice daily. Alpha-Beta Blockers rosuvastatin (CRESTOR) 40 mg tablet Take 1 tablet by mouth daily at bedtime. Antihyperlipidemic - HMG CoA Reductase Inhibitors (statins) DIURETICS Medication Dosage Pharm Subclass furosemide (LASIX) 20 mg tablet Take 1 tablet by mouth once daily. Diuretic - Loop furosemide (LASIX) 20 mg tablet Take 1 tablet by mouth twice daily. Diuretic - Loop ANTI-PLATELET THERAPIES Medication Dosage Pharm Subclass aspirin, enteric coated (ASPIRIN, ENTERIC COATED) 81 mg EC tablet Take 81 mg by mouth once daily. Salicylate Analgesics ASPIRIN Medication Dosage Pharm Subclass aspirin 325 mg tablet Take 1 tablet by mouth once daily. Salicylate Analgesics aspirin, enteric coated (ASPIRIN, ENTERIC COATED) 81 mg EC tablet Take 81 mg by mouth once daily. Salicylate Analgesics OTHER Medication Dosage Pharm Subclass allopurinol (ZYLOPRIM) 100 mg tablet allopurinol 100 mg tablet Hyperuricemia Therapy - Xanthine Oxidase Inhibitors fluticasone (FLONASE) 50 mcg/actuation nasal spray fluticasone propionate 50 mcg/actuation nasal spray,suspension Nasal Corticosteroids Insulin [place], Disposable, (BD ULTRA-FINE RUBIA PEN NEEDLE) 32 gauge x 5/32 ndle BD Ultra-Fine Rubia Pen Needle 32 gauge x 5/32 Medical Supplies and DME - Insulin [place]-Syringes and Admin Supplies magnesium oxide (MAG-OX) 400 mg (241.3 mg magnesium) tablet TAKE 1 TABLET BY MOUTH TWICE DAILY. TAKE SEPERATELY FROM DOXYCYCLINE Antacid - Magnesium Past History, Medications, Allergies PAST MEDICAL HISTORY Diagnosis Date Cardiomyopathy (HCC) Claudication (HCC) DM (diabetes mellitus) (HCC) HTN (hypertension) Incontinence NSVT (nonsustained ventricular tachycardia) (HCC) Sciatica Systolic CHF (HCC) PAST SURGICAL HISTORY Procedure Laterality Date CHOLECYSTECTOMY TOTAL ABDOMINAL HYSTERECT W/WO RMVL TUBE OVARY ALLERGIES Allergen Reactions Penicillins Anaphylaxis, Hives Dye Itching Xray dye > 20-30 years ago, throat itching Iodinated Contrast * Other: See Comments Throat itching to some Xray dye >20-30 years ago No family history on file. Social History Tobacco Use Smoking status: Former Smokeless tobacco: Never Tobacco comments: quit at 36. Substance Use Topics Alcohol use: Not Currently Drug use: Never Review of Systems Answers submitted by the patient for this visit: Core Review of Systems (Submitted on 11/01/2022) Fever : No Night Sweats: No Recent Unintentional Weight Change: No Nasal Congestion: No Hearing Loss: No Vision Disturbance: No A Cough: No Difficulty Breathing?: No Chest Pain: No Irregular Heart Beat: No Leg Swelling: No Nausea: No Diarrhea: No Black Tarry Stools: No Difficulty Urinating?: No Awaken at Night More Than Once to Urinate?: Yes Joint Pain or Stiffness: Yes Muscle Aches: Yes Leg or Foot Discomfort at Night?: Yes A Rash: No Dizziness: No Headaches: No Memory Loss: No Seizures: No Physical examination BP 124/76 Pulse 84 Wt 88.5 kg (195 lb) BMI 31.47 kg/m General appearance: Well appearing, alert, in no acute distress, well-hydrated, well nourished. Skin: Skin color, texture, turgor normal, no suspicious rashes or lesions HEART: normal rate LUNGS: unlabored, normal respiratory rate EXTREMITIES No deformities, No skin discoloration and No edema NEURO: Speech normal, mental status intact, no tremor noted. Previous Laboratory Results LABS Glucose (mg/dL) Date Value 06/10/2022 132 08/29/2021 194 02/21/2021 202 08/14/2020 101 04/02/2020 188 Potassium (mmol/L) Date Value 06/10/2022 3.7 02/21/2021 4.0 Sodium (mmol/L) Date Value 06/10/2022 142 08/29/2021 143 02/21/2021 141 08/14/2020 140 04/02/2020 137 Chloride (mmol/L) Date Value 06/10/2022 101 08/29/2021 103 02/21/2021 103 08/14/2020 101 04/02/2020 100 CO2 (mmol/L) Date Value 06/10/2022 29 08/29/2021 29 02/21/2021 26 08/14/2020 28 04/02/2020 29 Creatinine (mg/dL) Date Value 06/10/2022 0.73 08/29/2021 0.76 02/21/2021 0.74 08/14/2020 0.73 04/02/2020 0.74 BUN (mg/dL) Date Value 06/10/2022 15 08/29/2021 14 02/21/2021 20 08/14/2020 17 04/02/2020 27 Anion Gap (mmol/L) Date Value 06/10/2022 12 08/29/2021 11 02/21/2021 12 08/14/2020 11 04/02/2020 8 Calcium (mg/dL) Date Value 02/21/2021 9.2 08/14/2020 9.5 04/02/2020 9.6 Calcium, Total (mg/dL) Date Value 06/10/2022 9.4 08/29/2021 9.3 eGFR- (no units) Date Value 02/21/2021 >60 08/14/2020 >60 04/02/2020 >60 eGFR-All Other Races (.) Date Value 02/21/2021 >60 08/14/2020 >60 04/02/2020 >60 Estimated Glomerular Filtration Rate (mL/min/1.73m ) Date Value 06/10/2022 86 08/29/2021 82 ALT (U/L) Date Value 06/10/2022 19 08/14/2020 18 01/03/2020 40 01/03/2020 Account Credited TSH Date Value Ref Range Status 06/10/2022 3.640 0.270 - 4.200 mIU/L Final 12/01/2018 2.640 0.400 - 5.500 uU/mL Final Impression/Recommendations IMPRESSION Arleth Elias is a 76 year old here for evaluation of DM Type 2 with cardiovascular complications. POC HbA1c was 7.5% in office today. Patient just took her fist dose of Ozempic 1 mg two days ago. Will continue Ozempic 1 mg and monitor for improved glycemic control. Patient advised to notify the office if fasting glucoses remain greater than 150 after one to two weeks on the Ozempic and will plan to adjust Levemir dosage. Patient is agreeable with this plan. RECOMMENDATIONS: 1. Glycemic control: Target HbA1C is less than 7.0% per ADA guidelines. --Patient is currently at target. Plan: Continue Ozempic 1 mg once weekly Continue Levemir Follow up in 3 months Glucose targets as: Fasting 90-130, before meals 100-130, and bedtime under 150 mg/dL. The patient was reminded to check their blood glucose as directed and to record the data in a logbook. This patient was advised to bring their logbook to each office visit. I recommended at least 150 minutes per week of moderate physical activity, such as walking and to reduce carbohydrates and overall caloric intake. 2. Hypertension/BP control: BP goal for patients with diabetes is 130/80. -- BP typically well controlled. Patient will monitor/keep BP log at home and follow up with PCP in 1 month. 3. Lipids: Target LDL cholesterol in patients with diabetes is less than 100, less than 70 if patient has overt CVD. Several studies have shown cardiovascular benefits of statin therapy in all patients with diabetes over age 40 with at least 1 CVD risk factor. Cholesterol, Total Date Value Ref Range Status 06/10/2022 100 <200 mg/dL Final Comment: <200 mg/dL, Desirable 200-239 mg/dL, Borderline high >239 mg/dL, High HDL Cholesterol Date Value Ref Range Status 06/10/2022 38 (L) >39 mg/dL Final Comment: 40-59 mg/dL, Acceptable >59 mg/dL, High: Negative risk factor for coronary heart disease <40 mg/dL, Low: Positive risk factor for coronary heart disease LDL Cholesterol Date Value Ref Range Status 06/10/2022 37 <100 mg/dL Final Comment: <100 mg/dL, Optimal 100-129 mg/dL, Near optimal/above optimal 130-159 mg/dL, Borderline high 160-189 mg/dL, High >189 mg/dL, Very high Secondary prevention optimal LDL Cholesterol levels are recommended to be < 70 mg/dL Triglyceride Date Value Ref Range Status 06/10/2022 124 <150 mg/dL Final Comment: <150 mg/dL, Normal 150-199 mg/dL, Borderline high 200-499 mg/dL, High >499 mg/dL, Very high -- This patient is currently at target on statin therapy. 4. Nephropathy screening: Annual measurement of urine albumin excretion is recommended in patients with diabetes. Albumin/Creat Ratio (mg/g) Date Value 06/10/2022 <26 10/18/2019 Not calculated Protein, Urine (no units) Date Value 06/10/2022 Negative 10/18/2019 Negative Creatinine, Ur Random (UCRR) (mg/dL) Date Value 06/10/2022 45.3 10/18/2019 51.1 -- This patient does not have microalbuminuria and is not on RAMEZ-I or ARB therapy. 5. Ophthalmology: Annual dilated eye exams are recommended for patients with type 1 and type 2 diabetes. -- This patient is up to date with their annual eye exam and has no history of retinopathy --[facility] July 2022. Patient to continue to follow up with his PCP and with other consultants regarding his other medical problems. Any part of this document that has been added/copied & pasted from other documents has been reviewed for accuracy and updated as appropriate at the time of the patient encounter I spent a total of 35 minutes on the date of the service which included preparing to see the patient, [id number] patient care, completing clinical documentation, obtaining and/or reviewing separately obtained history, performing a medically appropriate examination, counseling and educating the patient/family/caregiver, ordering medications, tests, or procedures, independently interpreting results (not separately reported), and communicating results to the patient/family/caregiver. Mikel Barahona APRN.GUALBERTO (Signed electronically to expedite mailing) documented in this encounter [facility] 11-04-2022 Note [facility] 10-23-2022 Miscellaneous Notes Spoke to patient, informed her that we have received her shipment of Ozempic, however she will need to wait until Wednesday to pick it up. Dispensing form will need signed. Also patient is agreeable to starting the ozempic 1mg injection weekly. Dosage change request was sent to Asha Sumner to sign as she is the ordering provider on original patient assistance application. Please fax form back to [employer] once complete. documented in this encounter [facility] 10-07-2022 Miscellaneous Notes Spoke with patient. Message given noted by GUALBERTO Gutierrez. Voice understanding. An updated magnesium level has been ordered. The following approved medication requests have been transmitted electronically. Requested Prescriptions Signed Prescriptions Disp Refills magnesium oxide (MAG-OX) 400 mg (241.3 mg magnesium) tablet 180 tablet 3 Sig: TAKE 1 TABLET BY MOUTH TWICE DAILY. TAKE SEPERATELY FROM DOXYCYCLINE Authorizing Provider: CHALO PRITCHARD Ordering User: JEFFREY STEINER APRN.CNP Last appt: 06/11/2022 Next appt: 12/17/2022 Pharmacy requesting below: Requested Prescriptions Pending Prescriptions Disp Refills magnesium oxide (MAG-OX) 400 mg (241.3 mg magnesium) tablet [Pharmacy Med Name: MAG-OXIDE 400MG TABLETS] 180 tablet 3 Sig: TAKE 1 TABLET BY MOUTH TWICE DAILY. TAKE SEPERATELY FROM DOXYCYCLINE documented in this encounter [facility] 08-19-2022 Miscellaneous Notes Initiated Patient Assistance form for Ozempic. Called patient and patient requested her portion of form be emailed to her as she lives [place] hour away. Form emailed, Provider portion placed on Asha's desk, awaiting completion. documented in this encounter [facility] 08-07-2022 Miscellaneous Notes Addended by: MIKEL BARAHONA on: 08/07/2022 02:37 PM Modules accepted: Orders documented in this encounter [facility] 08-07-2022 Instructions Mikel Barahona APRN.CNP - 08/07/2022 2:16 PM EDT Plan: Continue Levemir Schedule with Opthalmology The category of drug is an GLP1 receptor agonist. Alternatives are Victoza (daily), Trulicity (weekly dosing), Mounjaro (weekly), Ozempic (weekly dosing) for treatment of type 2 diabetes OR Saxenda (weekly) or Wegovy (weekly) for weight management. Please let the office know the findings so we can place the appropriate order. Follow up in 3 months documented in this encounter [facility] 08-07-2022 History of Present illness Narrative Endocrinology Follow-up History of Present Illness Arleth Elias is a 76 year old female presents today for follow up of DM Type 2. PMH significant HTN, systolic CHF and cardiomyopathy. Last Endocrinology visit was with me on 06/23/22 and Metformin was discontinued due to severe diarrhea. Levemir insulin was decreased and she was started on Trulicity 0.75mg once weekly. Last HbA1c was 6.9% on 06/10/22. She is tolerating Trulicity well without side effects or issues. However, she has been experiencing difficulty obtaining Trulicity due to cost. Patient assistance paperwork completed in office today. Date of Diagnosis: 2018 Last HbA1c: Hemoglobin A1C (%) Date Value 06/10/2022 6.9 08/14/2020 7.3 10/18/2019 7.5 02/01/2019 6.2 Complications Microvascular: denies Macrovascular: CAD Health Maintenance Topics Topic Date Due DILATED RETINAL EXAM Never done DIABETIC FOOT EXAM Never done Physical Activity: Regular Diet: CHO Controlled Diet SMBG Frequency of Monitoring: One time a day BG Values: AM: 110-148 Hypoglycemia Frequency: n/a Current DM Related Medications: Current Medications 08/07/2022 DIABETES THERAPIES Medication Dosage Pharm Subclass dulaglutide (TRULICITY) 0.75 mg/0.5 mL pen injector Inject 0.75 mg subcutaneously one time a week for 28 days. Antihyperglycemic - Glucagon-Like Peptide-1 (GLP-1) Receptor Agonists insulin detemir U-100 (LEVEMIR) 100 unit/mL (3 mL) injection pen Inject 35 Units subcutaneously. Insulin Analogs - Long Acting CARDIOVASCULAR Medication Dosage Pharm Subclass carvedilol (COREG) 25 mg tablet Take 1 tablet by mouth twice daily. Alpha-Beta Blockers rosuvastatin (CRESTOR) 40 mg tablet Take 1 tablet by mouth daily at bedtime. Antihyperlipidemic - HMG CoA Reductase Inhibitors (statins) DIURETICS Medication Dosage Pharm Subclass furosemide (LASIX) 20 mg tablet Take 1 tablet by mouth once daily. Diuretic - Loop furosemide (LASIX) 20 mg tablet Take 1 tablet by mouth twice daily. Diuretic - Loop ANTI-PLATELET THERAPIES Medication Dosage Pharm Subclass aspirin, enteric coated (ASPIRIN, ENTERIC COATED) 81 mg EC tablet Take 81 mg by mouth once daily. Salicylate Analgesics ASPIRIN Medication Dosage Pharm Subclass aspirin 325 mg tablet Take 1 tablet by mouth once daily. Salicylate Analgesics aspirin, enteric coated (ASPIRIN, ENTERIC COATED) 81 mg EC tablet Take 81 mg by mouth once daily. Salicylate Analgesics OTHER Medication Dosage Pharm Subclass allopurinol (ZYLOPRIM) 100 mg tablet allopurinol 100 mg tablet Hyperuricemia Therapy - Xanthine Oxidase Inhibitors fluticasone (FLONASE) 50 mcg/actuation nasal spray fluticasone propionate 50 mcg/actuation nasal spray,suspension Nasal Corticosteroids Insulin [place], Disposable, (BD ULTRA-FINE RUBIA PEN NEEDLE) 32 gauge x 5/32 ndle BD Ultra-Fine Rubia Pen Needle 32 gauge x 5/32 Medical Supplies and DME - Insulin [place]-Syringes and Admin Supplies magnesium oxide (MAG-OX) 400 mg (241.3 mg magnesium) tablet TAKE 1 TABLET BY MOUTH TWICE DAILY, TAKE SEPERATELY FROM DOXYCYCLINE Antacid - Magnesium Past History, Medications, Allergies PAST MEDICAL HISTORY Diagnosis Date Cardiomyopathy (HCC) Claudication (HCC) DM (diabetes mellitus) (HCC) HTN (hypertension) Incontinence NSVT (nonsustained ventricular tachycardia) (HCC) Sciatica Systolic CHF (HCC) PAST SURGICAL HISTORY Procedure Laterality Date CHOLECYSTECTOMY TOTAL ABDOMINAL HYSTERECT W/WO RMVL TUBE OVARY ALLERGIES Allergen Reactions Penicillins Anaphylaxis, Hives Dye Itching Xray dye > 20-30 years ago, throat itching Iodinated Contrast * Other: See Comments Throat itching to some Xray dye >20-30 years ago No family history on file. Social History Tobacco Use Smoking status: Former Smokeless tobacco: Never Tobacco comments: quit at 36. Substance Use Topics Alcohol use: Not Currently Drug use: Never Review of Systems GENERAL: Weight loss RESPIRATORY: Negative for cough, hemoptysis, wheezing, COPD, dyspnea or shortness of breath CARDIOVASCULAR: Negative for chest pain, leg swelling, hypertension, CHF or palpitations GI: No nausea, vomiting, or diarrhea ENDOCRINE: Negative for cold or heat intolerance, polyuria, polydipsia and goiter Feet: No problems NEUROLOGIC:Negative for focal numbness or weakness, headaches and dizziness or syncope. Physical examination BP 162/68 Wt 87.1 kg (192 lb) BMI 30.99 kg/m General appearance: Well appearing, alert, in no acute distress, well-hydrated, well nourished. Skin: Skin color, texture, turgor normal, no suspicious rashes or lesions HEART: normal rate LUNGS: unlabored, normal respiratory rate EXTREMITIES No deformities, No skin discoloration and No edema NEURO: Speech normal, mental status intact, no tremor noted. Previous Laboratory Results LABS Glucose (mg/dL) Date Value 06/10/2022 132 08/29/2021 194 02/21/2021 202 08/14/2020 101 04/02/2020 188 Potassium (mmol/L) Date Value 06/10/2022 3.7 02/21/2021 4.0 Sodium (mmol/L) Date Value 06/10/2022 142 08/29/2021 143 02/21/2021 141 08/14/2020 140 04/02/2020 137 Chloride (mmol/L) Date Value 06/10/2022 101 08/29/2021 103 02/21/2021 103 08/14/2020 101 04/02/2020 100 CO2 (mmol/L) Date Value 06/10/2022 29 08/29/2021 29 02/21/2021 26 08/14/2020 28 04/02/2020 29 Creatinine (mg/dL) Date Value 06/10/2022 0.73 08/29/2021 0.76 02/21/2021 0.74 08/14/2020 0.73 04/02/2020 0.74 BUN (mg/dL) Date Value 06/10/2022 15 08/29/2021 14 02/21/2021 20 08/14/2020 17 04/02/2020 27 Anion Gap (mmol/L) Date Value 06/10/2022 12 08/29/2021 11 02/21/2021 12 08/14/2020 11 04/02/2020 8 Calcium (mg/dL) Date Value 02/21/2021 9.2 08/14/2020 9.5 04/02/2020 9.6 Calcium, Total (mg/dL) Date Value 06/10/2022 9.4 08/29/2021 9.3 eGFR- (no units) Date Value 02/21/2021 >60 08/14/2020 >60 04/02/2020 >60 eGFR-All Other Races (.) Date Value 02/21/2021 >60 08/14/2020 >60 04/02/2020 >60 Estimated Glomerular Filtration Rate (mL/min/1.73m ) Date Value 06/10/2022 86 08/29/2021 82 ALT (U/L) Date Value 06/10/2022 19 08/14/2020 18 01/03/2020 40 01/03/2020 Account Credited TSH Date Value Ref Range Status 06/10/2022 3.640 0.270 - 4.200 mIU/L Final 12/01/2018 2.640 0.400 - 5.500 uU/mL Final Impression/Recommendations IMPRESSION Arleth Elias is a 76 year old here for evaluation of DM Type 2 with cardiovascular complications. Last HbA1c was 6.9% on 06/10/22. Patient is tolerating Trulicity well and glucoses are well controlled. However, she has been experiencing difficulty obtaining the medication due to health insurance coverage/cost issues. Patient assistance paperwork completed in office today. Will continue Trulicity and discuss other GLP-1 options with her insurance. Patient is agreeable with this plan. RECOMMENDATIONS: 1. Glycemic control: Target HbA1C is less than 7.0% per ADA guidelines. --Patient is currently at target. Plan: Continue Levemir Schedule with Opthalmology The category of drug is an GLP1 receptor agonist. Alternatives are Victoza (daily), Trulicity (weekly dosing), Mounjaro (weekly), Ozempic (weekly dosing) for treatment of type 2 diabetes OR Saxenda (weekly) or Wegovy (weekly) for weight management. Please let the office know the findings so we can place the appropriate order. Follow up in 3 months Glucose targets as: Fasting 90-130, before meals 100-130, and bedtime under 150 mg/dL. The patient was reminded to check their blood glucose as directed and to record the data in a logbook. This patient was advised to bring their logbook to each office visit. I recommended at least 150 minutes per week of moderate physical activity, such as walking and to reduce carbohydrates and overall caloric intake. 2. Hypertension/BP control: BP goal for patients with diabetes is 130/80. -- BP typically well controlled. Patient will monitor/keep BP log at home and follow up with PCP in 1 month. 3. Lipids: Target LDL cholesterol in patients with diabetes is less than 100, less than 70 if patient has overt CVD. Several studies have shown cardiovascular benefits of statin therapy in all patients with diabetes over age 40 with at least 1 CVD risk factor. Cholesterol, Total Date Value Ref Range Status 06/10/2022 100 <200 mg/dL Final Comment: <200 mg/dL, Desirable 200-239 mg/dL, Borderline high >239 mg/dL, High HDL Cholesterol Date Value Ref Range Status 06/10/2022 38 (L) >39 mg/dL Final Comment: 40-59 mg/dL, Acceptable >59 mg/dL, High: Negative risk factor for coronary heart disease <40 mg/dL, Low: Positive risk factor for coronary heart disease LDL Cholesterol Date Value Ref Range Status 06/10/2022 37 <100 mg/dL Final Comment: <100 mg/dL, Optimal 100-129 mg/dL, Near optimal/above optimal 130-159 mg/dL, Borderline high 160-189 mg/dL, High >189 mg/dL, Very high Secondary prevention optimal LDL Cholesterol levels are recommended to be < 70 mg/dL Triglyceride Date Value Ref Range Status 06/10/2022 124 <150 mg/dL Final Comment: <150 mg/dL, Normal 150-199 mg/dL, Borderline high 200-499 mg/dL, High >499 mg/dL, Very high -- This patient is currently at target on statin therapy. 4. Nephropathy screening: Annual measurement of urine albumin excretion is recommended in patients with diabetes. Albumin/Creat Ratio (mg/g) Date Value 06/10/2022 <26 10/18/2019 Not calculated Protein, Urine (no units) Date Value 06/10/2022 Negative 10/18/2019 Negative Creatinine, Ur Random (UCRR) (mg/dL) Date Value 06/10/2022 45.3 10/18/2019 51.1 -- This patient does not have microalbuminuria and is not on RAMEZ-I or ARB therapy. 5. Ophthalmology: Annual dilated eye exams are recommended for patients with type 1 and type 2 diabetes. -- This patient is not up to date with their annual eye exam and was referred to an builder operator at this visit. Patient to continue to follow up with his PCP and with other consultants regarding his other medical problems. Any part of this document that has been added/copied & pasted from other documents has been reviewed for accuracy and updated as appropriate at the time of the patient encounter I spent a total of 30 minutes on the date of the service which included preparing to see the patient, [id number] patient care, completing clinical documentation, obtaining and/or reviewing separately obtained history, performing a medically appropriate examination, counseling and educating the patient/family/caregiver, ordering medications, tests, or procedures, independently interpreting results (not separately reported), and communicating results to the patient/family/caregiver. Mikel Barahona APRN.CNP (Signed electronically to expedite mailing) documented in this encounter [facility] 06-23-2022 Instructions Mikel Barahona APRN.CNP - 06/23/2022 2:28 PM EDT Plan Decrease Levemir to 32 units daily Start Trulicity 0.75mg once weekly Check your blood glucose 2 times per day and record data in logbook and bring to each visit We reviewed glucose targets as: Fasting 80-130, before meals 100-130, and bedtime 100-150 mg/dL. Call the office with blood sugars less than 70 Follow up with me in 6-8 weeks Patient to continue to follow up with his PCP and with other consultants regarding his other medical problems. The patient was reminded to check their blood glucose as directed and to record the data in a logbook. This patient was advised to bring their logbook to each office visit. I recommended at least 150 minutes per week of moderate physical activity, such as walking and to reduce carbohydrates and overall caloric intake. documented in this encounter [facility] 06-23-2022 History of Present illness Narrative Endocrinology Initial Diabetes Assessment Arleth Elias is here for a consultation regarding: DM Type 2 My final recommendations will be communicated back to the requesting physician by way of shared Medical record or letter to requesting physician via [place] mail. PCP is Aure Little CNP, GUALBERTO Little CNP ([facility]) [address] [place] [address] History of Present Illness Arleth Elias is a 76 year old female presents today for evaluation of DM Type 2. PMH significant HTN, systolic CHF and cardiomyopathy. She was diagnosed with T2DM approximately 4 years ago and has been taking Metformin consistently since diagnosis. She has been experiencing severe diarrhea since starting the Metformin. She stopped it on her own for 1 week and diarrhea subsided. She would like to discontinue Metformin and try a different diabetes medication. Last HbA1c was 6.9% on 06/10/22. Patient has been experiencing persistent, worsening overactive bladder and is requesting a Urology referral today. Date of Diagnosis: approximately 4 years ago Last HbA1c: Hemoglobin A1C (%) Date Value 06/10/2022 6.9 08/14/2020 7.3 10/18/2019 7.5 02/01/2019 6.2 Family history of diabetes includes father. Complications Microvascular: denies Macrovascular: CAD Health Maintenance Topics Topic Date Due DILATED RETINAL EXAM Never done DIABETIC FOOT EXAM Never done Prior DM Medications: Metformin- diarrhea Current DM Related Medications: Current Medications 06/23/2022 DIABETES THERAPIES Medication Dosage Pharm Subclass insulin detemir U-100 (LEVEMIR) 100 unit/mL (3 mL) injection pen Inject 35 Units subcutaneously. Insulin Analogs - Long Acting LEVEMIR FLEXTOUCH U-100 INSULN 100 unit/mL (3 mL) inpn injection 10 Units. Insulin Analogs - Long Acting metFORMIN (GLUCOPHAGE) 1,000 mg tablet Take 500 mg by mouth twice daily. Insulin Response Enhancers - Biguanides CARDIOVASCULAR Medication Dosage Pharm Subclass carvedilol (COREG) 25 mg tablet Take 1 tablet by mouth twice daily. Alpha-Beta Blockers rosuvastatin (CRESTOR) 40 mg tablet Take 1 tablet by mouth daily at bedtime. Antihyperlipidemic - HMG CoA Reductase Inhibitors (statins) DIURETICS Medication Dosage Pharm Subclass furosemide (LASIX) 20 mg tablet Take 1 tablet by mouth once daily. Diuretic - Loop furosemide (LASIX) 20 mg tablet Take 1 tablet by mouth twice daily. Diuretic - Loop ANTI-PLATELET THERAPIES Medication Dosage Pharm Subclass aspirin, enteric coated (ASPIRIN, ENTERIC COATED) 81 mg EC tablet Take 81 mg by mouth once daily. Salicylate Analgesics ASPIRIN Medication Dosage Pharm Subclass aspirin 325 mg tablet Take 1 tablet by mouth once daily. Salicylate Analgesics aspirin, enteric coated (ASPIRIN, ENTERIC COATED) 81 mg EC tablet Take 81 mg by mouth once daily. Salicylate Analgesics OTHER Medication Dosage Pharm Subclass allopurinol (ZYLOPRIM) 100 mg tablet allopurinol 100 mg tablet Hyperuricemia Therapy - Xanthine Oxidase Inhibitors fluticasone (FLONASE) 50 mcg/actuation nasal spray fluticasone propionate 50 mcg/actuation nasal spray,suspension Nasal Corticosteroids Insulin [place], Disposable, (BD ULTRA-FINE RUBIA PEN NEEDLE) 32 gauge x 5/32 ndle BD Ultra-Fine Rubia Pen Needle 32 gauge x 5/32 Medical Supplies and DME - Insulin [place]-Syringes and Admin Supplies magnesium oxide (MAG-OX) 400 mg (241.3 mg magnesium) tablet TAKE 1 TABLET BY MOUTH TWICE DAILY, TAKE SEPERATELY FROM DOXYCYCLINE Antacid - Magnesium Physical Activity: Regular Diet: CHO Controlled Diet SMBG Frequency of Monitoring: One time a day BG Values: AM: 95-123 Hypoglycemia Frequency: n/a Past History, Medications, Allergies PAST MEDICAL HISTORY Diagnosis Date Cardiomyopathy (HCC) Claudication (HCC) DM (diabetes mellitus) (HCC) HTN (hypertension) Incontinence NSVT (nonsustained ventricular tachycardia) (HCC) Sciatica Systolic CHF (HCC) PAST SURGICAL HISTORY Procedure Laterality Date CHOLECYSTECTOMY TOTAL ABDOMINAL HYSTERECT W/WO RMVL TUBE OVARY ALLERGIES Allergen Reactions Penicillins Anaphylaxis, Hives Dye Itching Xray dye > 20-30 years ago, throat itching Iodinated Contrast * Other: See Comments Throat itching to some Xray dye >20-30 years ago History reviewed. No pertinent family history. Social History Tobacco Use Smoking status: Former Smokeless tobacco: Never Tobacco comments: quit at 36. Substance Use Topics Alcohol use: Not Currently Drug use: Never Review of Systems GENERAL: No weight loss, malaise or fevers RESPIRATORY: Negative for cough, hemoptysis, wheezing, COPD, dyspnea or shortness of breath CARDIOVASCULAR: Negative for chest pain, leg swelling, hypertension, CHF or palpitations GI: No nausea, vomiting, or diarrhea ENDOCRINE: Negative for cold or heat intolerance, polyuria, polydipsia and goiter Feet: No problems NEUROLOGIC:Negative for focal numbness or weakness, headaches and dizziness or syncope. Physical examination BP 154/72 (BP Site: Right Arm, BP Position: Sitting, BP Cuff Size: Large Adult) Pulse 74 Wt 89.1 kg (196 lb 6.4 oz) BMI 31.70 kg/m General appearance: Well appearing, alert, in no acute distress, well-hydrated, well nourished. Skin: Skin color, texture, turgor normal, no suspicious rashes or lesions HEART: normal rate LUNGS: unlabored, normal respiratory rate EXTREMITIES No deformities, No skin discoloration and No edema NEURO: Speech normal, mental status intact, no tremor noted. Previous Laboratory Results LABS Glucose (mg/dL) Date Value 06/10/2022 132 08/29/2021 194 02/21/2021 202 08/14/2020 101 04/02/2020 188 Potassium (mmol/L) Date Value 06/10/2022 3.7 02/21/2021 4.0 Sodium (mmol/L) Date Value 06/10/2022 142 08/29/2021 143 02/21/2021 141 08/14/2020 140 04/02/2020 137 Chloride (mmol/L) Date Value 06/10/2022 101 08/29/2021 103 02/21/2021 103 08/14/2020 101 04/02/2020 100 CO2 (mmol/L) Date Value 06/10/2022 29 08/29/2021 29 02/21/2021 26 08/14/2020 28 04/02/2020 29 Creatinine (mg/dL) Date Value 06/10/2022 0.73 08/29/2021 0.76 02/21/2021 0.74 08/14/2020 0.73 04/02/2020 0.74 BUN (mg/dL) Date Value 06/10/2022 15 08/29/2021 14 02/21/2021 20 08/14/2020 17 04/02/2020 27 Anion Gap (mmol/L) Date Value 06/10/2022 12 08/29/2021 11 02/21/2021 12 08/14/2020 11 04/02/2020 8 Calcium (mg/dL) Date Value 02/21/2021 9.2 08/14/2020 9.5 04/02/2020 9.6 Calcium, Total (mg/dL) Date Value 06/10/2022 9.4 08/29/2021 9.3 eGFR- (no units) Date Value 02/21/2021 >60 08/14/2020 >60 04/02/2020 >60 eGFR-All Other Races (.) Date Value 02/21/2021 >60 08/14/2020 >60 04/02/2020 >60 Estimated Glomerular Filtration Rate (mL/min/1.73m ) Date Value 06/10/2022 86 08/29/2021 82 ALT (U/L) Date Value 06/10/2022 19 08/14/2020 18 01/03/2020 40 01/03/2020 Account Credited TSH Date Value Ref Range Status 06/10/2022 3.640 0.270 - 4.200 mIU/L Final 12/01/2018 2.640 0.400 - 5.500 uU/mL Final Impression/Recommendations IMPRESSION Arleth Elias is a 76 year old here for evaluation of DM Type 2 complicated by hypertension, cardiovascular disease, and peripheral vascular disease. Last HbA1c was 6.9% on 06/10/22. Patient's T2DM is currently well controlled on Metformin and Levemir but patient cannot tolerate Metformin due to severe diarrhea. Will discontinue Metformin, decrease Levemir dose and start Trulicity. Patient is in agreement with this plan. RECOMMENDATIONS: 1. Glycemic control: Target HbA1C is less than 7.0% per ADA guidelines. Plan Decrease Levemir to 32 units daily Start Trulicity 0.75mg once weekly Check your blood glucose 2 times per day and record data in logbook and bring to each visit We reviewed glucose targets as: Fasting 80-130, before meals 100-130, and bedtime 100-150 mg/dL. Call the office with blood sugars less than 70 Follow up with me in 6-8 weeks Schedule with Ophthalmology Patient to continue to follow up with his PCP and with other consultants regarding his other medical problems. The patient was reminded to check their blood glucose as directed and to record the data in a logbook. This patient was advised to bring their logbook to each office visit. I recommended at least 150 minutes per week of moderate physical activity, such as walking and to reduce carbohydrates and overall caloric intake. 2. Hypertension/BP control: BP goal for patients with diabetes is 130/80. -- This patient is not at target on current regimen. I will defer management of this to their primary care physician. 3. Lipids: Target LDL cholesterol in patients with diabetes is less than 100, less than 70 if patient has overt CVD. Several studies have shown cardiovascular benefits of statin therapy in all patients with diabetes over age 40 with at least 1 CVD risk factor. Cholesterol, Total Date Value Ref Range Status 06/10/2022 100 <200 mg/dL Final Comment: <200 mg/dL, Desirable 200-239 mg/dL, Borderline high >239 mg/dL, High HDL Cholesterol Date Value Ref Range Status 06/10/2022 38 (L) >39 mg/dL Final Comment: 40-59 mg/dL, Acceptable >59 mg/dL, High: Negative risk factor for coronary heart disease <40 mg/dL, Low: Positive risk factor for coronary heart disease LDL Cholesterol Date Value Ref Range Status 06/10/2022 37 <100 mg/dL Final Comment: <100 mg/dL, Optimal 100-129 mg/dL, Near optimal/above optimal 130-159 mg/dL, Borderline high 160-189 mg/dL, High >189 mg/dL, Very high Secondary prevention optimal LDL Cholesterol levels are recommended to be < 70 mg/dL Triglyceride Date Value Ref Range Status 06/10/2022 124 <150 mg/dL Final Comment: <150 mg/dL, Normal 150-199 mg/dL, Borderline high 200-499 mg/dL, High >499 mg/dL, Very high -- This patient is currently at target on statin therapy. 4. Nephropathy screening: Annual measurement of urine albumin excretion is recommended in patients with diabetes. Albumin/Creat Ratio (mg/g) Date Value 06/10/2022 <26 10/18/2019 Not calculated Protein, Urine (no units) Date Value 06/10/2022 Negative 10/18/2019 Negative Creatinine, Ur Random (UCRR) (mg/dL) Date Value 06/10/2022 45.3 10/18/2019 51.1 -- This patient does not have microalbuminuria and is not on RAMEZ-I or ARB therapy. 5. Ophthalmology: Annual dilated eye exams are recommended for patients with type 1 and type 2 diabetes. -- This patient is not up to date with their annual eye exam and was referred to an builder operator at this visit. Patient has no history of pancreatitis and no personal or family history of medullary thyroid cancer/c-cell hyperplasia. We discussed the reported risk of medullary thyroid cancer/c-cell hyperplasia noted in rats who received clinically relevant doses of victoza. Risk of medullary thyroid cancer/c-cell hyperplasia has yet to be demonstrated in humans, especially in the current pharmacologic doses approved for use. Potential for weight loss with improved glycemic control warrant trial of medication. Patient made inforrmed decision to try the medication. Any part of this document that has been added/copied & pasted from other documents has been reviewed for accuracy and updated as appropriate at the time of the patient encounter I spent a total of 45 minutes on the date of the service which included preparing to see the patient, [id number] patient care, completing clinical documentation, obtaining and/or reviewing separately obtained history, performing a medically appropriate examination, counseling and educating the patient/family/caregiver, ordering medications, tests, or procedures, independently interpreting results (not separately reported), and communicating results to the patient/family/caregiver. Mikel Barahona APRN.[email or web address] (Signed electronically to expedite mailing) documented in this encounter [facility] 06-11-2022 History of Present illness Narrative Images from the original note were not included. [facility] [place] [facility] June 11, 2022 Outpatient VISIT TYPE Established PRIMARY CARE PHYSICIAN: Alan Vega, [address] [place] [id number] HISTORY OF PRESENT ILLNESS: Ms. Elias is a 76 year old female with a past medical history of Chronic systolic heart failure recovered LVEF 35%->61%, nonischemic cardiomyopathy, CAD status post [facility] on 06/07/2019 with 50-70% stenosis of the mid LAD, HTN, HLD, PVD sp right axillobifemoral bypass graft on 01/02/20 for severe aortic stenosis at the level of the renal arteries, DM, diverticulitis, ankle pain. Last visit was on 12/05/2021, per that note: ... she tells me that she feels she is doing well. She feels like she has limited energy. She denies having any: chest pain, palpitations, shortness of breath, orthopnea, LE edema, presyncope/syncope, N/V, bleeding, or other significant symptoms. Today, she tells me that she will feel dizzy rarely. Her home BP monitor has been reading 15mmHg above our monitor. Thus her BP has been somewhat low. She is currently taking metformin which she believes is giving her diarrhea. She has some shortness of breath walking up a flight of stairs and has been feeling like her energy level is very low. She denies having any: chest pain, palpitations, orthopnea, LE edema, presyncope/syncope, N/V, bleeding, or other significant symptoms. She is eating vegetables on most daily. She lost 6lbs since her last visit. She only occasionally has coffee. She will have an alcoholic beverage 3 times a year. She doesn't smoke or use any drugs. She goes to pool walking for an hour 3x per week, yet she has not been doing this lately. Family, father had cancer. Mother was in her early 60s with CABG and a pacemaker. 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 Upon further questioning, she wakes up at least 3 times a night. Sometimes after waking she feels like she can't get back to sleep. IMPRESSION: Encounter Diagnosis ICD-10-CM 1. Dyspnea, unspecified type R06.00 ECHO LIMITED 2. Claudication (HCC) I73.9 3. H/O aorto-femoral bypass Z95.828 4. Nonsustained ventricular tachycardia (HCC) I47.29 5. Systolic heart failure, unspecified HF chronicity (HCC) I50.20 ECHO LIMITED perflutren lipid microspheres 1.3 mL in NaCl (PF) 0.9% 10 mL injection (DEFINITY) sodium chloride 0.9 % (flush) 10 mL (BD POSIFLUSH) 6. 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 I25.10 ECG COMPLETE CBC rosuvastatin (CRESTOR) 40 mg tablet 7. Essential hypertension I10 BASIC METABOLIC PNL 8. Mixed hyperlipidemia E78.2 rosuvastatin (CRESTOR) 40 mg tablet LIPID PANEL BASIC 9. Hyperlipidemia associated with type 2 diabetes mellitus (HCC) E11.69 ENDOCRINE MEDICAL WEIGHT MANAGEMENT E78.5 10. Moderate obstructive sleep apnea G47.33 ECG COMPLETE 11. Hypomagnesemia E83.42 12. Class 1 obesity due to excess calories with serious comorbidity and body mass index (BMI) of 32.0 to 32.9 in adult E66.09 ENDOCRINE MEDICAL WEIGHT MANAGEMENT Z68.32 PLAN AND RECOMMENDATIONS: Given the fact that she has been feeling very fatigued and has shortness of breath walking up a flight of stairs recommend an echocardiogram to evaluate her LVEF. She has had fluctuations in her LVEF. Claudication appears to be stable noted, previously seen by vascular surgery. Recommend that she is seen by vascular medicine, PVR noted to be abnormal. Of note she has a prior history of axillobifemoral bypass graft in 2019. Hx of NSVT noted, she is taking a b-genia(carvedilol 25mg BID), NSVT burden less than 2% the last time it was checked. Chronic systolic heart failure with recovered LVEF, prior echocardiogram showed LVEF of 61% then 45% we will check prior to next visit. Lower extremity edema very mild, she should consider using compression stockings for this. Due to her increasing symptoms we will repeat echocardiogram. Continue current medications: Increase carvedilol to 25mg BID Currently on furosemide 40mg BID yet I recommend decreasing to 20 mg twice daily We will discuss her symptoms at next visit and consider if further titration is necessary at next visit. CAD with intermediate lesion in the LAD, IFR 0.9. continue cardiac medications at this time. Continue cardiac medications: Aspirin, beta genia, statin. Goal blood pressure less than 130/80 mmHg. Will attempt to maintain systolic BP above 85mmHg. Continue current antihypertensive medications, BP is controlled. Also continue lifestyle modifications. Recheck BMP prior to next visit. Goal LDL is less than 70 mg/dL. Switch atorvastatin to rosuvastatin as this may improve her A1c. Check lipids at least yearly. Goal A1C is less than 7.0%. ERASMO noted, FU with sleep medicine prior to next visit. We briefly discussed the importance of diet and exercise and maintaining ideal body weight. She would like to see endocrinology to determine if they can assist her in losing weight. REVIEW OF SYSTEMS: Chest pain No Shortness of breath Yes Bleeding No Dizziness No Syncope No Palpations No 10 systems reviewed and are negative with the exception of pertinent positives described in HPI PHYSICAL EXAMINATION: via telephone BP 115/54 Pulse 75 Wt 87.5 kg (193 lb) SpO2 98% BMI 31.15 kg/m Gen.: No apparent distress, obese HEENT: normocephalic, EOMI, no JVD, No carotid bruit. Heart: regular rhythm, no significant murmur Lungs: clear to auscultation Abdomen: bowel sounds present Extremities: trace edema in feet BL. Musculoskeletal: chest wall nontender Neurological: alert and oriented Psychiatric: appropriate and cooperative Skin: no rash, cellulitis or lesions appreciated CARDIOVASCULAR MEDICINE TESTING: I have personally reviewed ECG, PVR report, echocardiogram report, stress test report, MCOT report, and labs ECG - 06/11/2022 NSR 79 bpm, minimal voltage criteria for LVH, borderline ECG PVR-01/06/21 IMPRESSION Compared to prior study of 02/19/2020, Right TBI was .62; left was.56. No significant change in PVR waveforms throughout. RIGHT SIDE Resting right ankle brachial index: 1.25 Partially non-compressible arteries, TIARA not accurate. Right toe brachial index: 0.54 Non-compressible vessels, results called by PVR tracings. Abnormal toe brachial index at rest is evidence of peripheral artery disease. Right ankle: Moderate disease at rest. Aortic or bilateral iliofemoral disease. LEFT SIDE Resting left ankle brachial index: 1.29 Partially non-compressible arteries, TIARA not accurate. Left toe brachial index: 0.62 Non-compressible vessels, results called by PVR tracings. Abnormal toe brachial index at rest is evidence of peripheral artery disease. Left ankle: Moderate disease at rest. Aortic or bilateral iliofemoral disease. SPECT - 10/07/21 CONCLUSIONS: 1. SPECT Perfusion Study: Normal. 2. There is no scintigraphic evidence for inducible ischemia. 3. No evidence of scarred myocardium. 4. Left ventricle is normal in size. The left ventricle systolic function is normal. 5. Right ventricle is normal in size. 6. This is a low risk scan. Gated Stress FBP LVEF % 67 Echo-10/09/21 CONCLUSIONS: - Exam indication: Chest Pain - The left ventricle is normal in size. Left ventricular systolic function is mildly decreased. EF = 45 5% (3D) Grade I left ventricular diastolic dysfunction. - The right ventricle is normal in size. Right ventricular systolic function is normal. - Estimated right ventricular systolic pressure is 25 mmHg consistent with normal pulmonary artery pressures. Estimated right atrial pressure is 3 mmHg based on IVC assessment. - 1+ MR. - Exam was compared with the prior CC echocardiographic exam performed on 04/02/2020 ECHOL. The LV systolic function has mildly decreased ( vs normal EF on prior ). MCOT -05/18/2020 Patient had a min HR of 59 bpm, max HR of 193 bpm, and avg HR of 80 bpm. Predominant underlying rhythm was Sinus Rhythm. 12 Ventricular Tachycardia runs occurred, the run with the fastest interval lasting 7 beats with a max rate of 193bpm, the longest lasting 7 beats with an avg rate of 126 bpm. 3 Supraventricular Tachycardia runs occurred, the run with the fastest interval lasting 5 beats with a max rate of 193 bpm, the longest lasting 7 beats with an avg rate of 135 bpm. Isolated SVEs were rare (<1.0%), SVE Couplets were rare (<1.0%), and SVE Triplets were rare (<1.0%). Isolated VEs were occasional (1.9%, [id number]), VE Couplets were rare (<1.0%, 2064), and VE Triplets were rare (<1.0%, 32). Ventricular Bigeminy and Trigeminy were present. 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 Cardiac Catheterization 06/08/2019: LM : normal Mid LAD : 50--70% cx : see initial cath Latest Reference Range & Units Most Recent Sodium 136 - 144 mmol/L 142 06/10/22 11:44 Potassium 3.7 - 5.1 mmol/L 3.7 06/10/22 11:44 Chloride 97 - 105 mmol/L 101 06/10/22 11:44 CO2 22 - 30 mmol/L 29 06/10/22 11:44 BUN 7 - 21 mg/dL 15 06/10/22 11:44 Creatinine 0.58 - 0.96 mg/dL 0.73 06/10/22 11:44 Glucose 74 - 99 mg/dL 132 (H) 06/10/22 11:44 Protein, Total 6.3 - 8.0 g/dL 7.2 06/10/22 11:44 Calcium 8.5 - 10.2 mg/dL 9.4 06/10/22 11:44 Albumin 3.9 - 4.9 g/dL 4.2 06/10/22 11:44 Bilirubin, Total 0.2 - 1.3 mg/dL 0.7 06/10/22 11:44 Alkaline Phosphatase 34 - 123 U/L 115 06/10/22 11:44 ALT 7 - 38 U/L 19 06/10/22 11:44 AST 13 - 35 U/L 33 06/10/22 11:44 Anion Gap 9 - 18 mmol/L 12 06/10/22 11:44 eGFR >=60 mL/min/1.73m 86 06/10/22 11:44 Cholesterol, Total <200 mg/dL 100 06/10/22 11:44 Triglyceride <150 mg/dL 124 06/10/22 11:44 Fasting Time hrs 12 06/10/22 11:44 HDL Cholesterol >39 mg/dL 38 (L) 06/10/22 11:44 LDL Cholesterol <100 mg/dL 37 06/10/22 11:44 VLDL Cholesterol <30 mg/dL 25 06/10/22 11:44 TC:HDL Ratio <5.10 2.63 06/10/22 11:44 LDL:HDL Ratio <2.54 0.97 06/10/22 11:44 (H): Data is abnormally high (L): Data is abnormally low Hemoglobin (g/dL) Date Value 06/10/2022 10.9 08/14/2020 11.7 Hematocrit (%) Date Value 06/10/2022 34.3 08/14/2020 39.2 WBC (k/uL) Date Value 06/10/2022 9.19 08/14/2020 8.08 PAST MEDICAL HISTORY Diagnosis Date Cardiomyopathy (HCC) Claudication (HCC) DM (diabetes mellitus) (HCC) HTN (hypertension) Incontinence NSVT (nonsustained ventricular tachycardia) (HCC) Sciatica Systolic CHF (HCC) PAST SURGICAL HISTORY Procedure Laterality Date CHOLECYSTECTOMY TOTAL ABDOMINAL HYSTERECT W/WO RMVL TUBE OVARY Social History Tobacco Use Smoking status: Former Smokeless tobacco: Never Tobacco comments: quit at 36. Substance Use Topics Alcohol use: Not Currently Drug use: Never No family history on file. ALLERGIES Allergen Reactions Penicillins Anaphylaxis, Hives Dye Itching Xray dye > 20-30 years ago, throat itching Iodinated Contrast * Other: See Comments Throat itching to some Xray dye >20-30 years ago CURRENT MEDICATIONS: carvedilol (COREG) 25 mg tablet^Take 1 tablet by mouth twice daily.^Disp: 180 tablet^Rfl: 3 magnesium oxide (MAG-OX) 400 mg (241.3 mg magnesium) tablet^TAKE 1 TABLET BY MOUTH TWICE DAILY, TAKE SEPERATELY FROM DOXYCYCLINE^Disp: 180 tablet^Rfl: 3 insulin detemir U-100 (LEVEMIR) 100 unit/mL (3 mL) injection pen^Inject 35 Units subcutaneously.^Disp: ^Rfl: furosemide (LASIX) 20 mg tablet^Take 1 tablet by mouth twice daily.^Disp: 60 tablet^Rfl: 2 furosemide (LASIX) 20 mg tablet^Take 1 tablet by mouth once daily.^Disp: 30 tablet^Rfl: 0 (Patient taking differently: Take 20 mg by mouth twice daily.) Insulin [place], Disposable, (BD ULTRA-FINE RUBIA PEN NEEDLE) 32 gauge x 5/32 ndle^BD Ultra-Fine Rubia Pen Needle 32 gauge x 5/32 ^Disp: ^Rfl: allopurinol (ZYLOPRIM) 100 mg tablet^allopurinol 100 mg tablet^Disp: ^Rfl: fluticasone (FLONASE) 50 mcg/actuation nasal spray^fluticasone propionate 50 mcg/actuation nasal spray,suspension^Disp: ^Rfl: LEVEMIR FLEXTOUCH U-100 INSULN 100 unit/mL (3 mL) inpn injection^10 Units. ^Disp: ^Rfl: metFORMIN (GLUCOPHAGE) 1,000 mg tablet^Take 500 mg by mouth twice daily.^Disp: ^Rfl: aspirin, enteric coated (ASPIRIN, ENTERIC COATED) 81 mg EC tablet^Take 81 mg by mouth once daily.^Disp: ^Rfl: rosuvastatin (CRESTOR) 40 mg tablet^Take 1 tablet by mouth daily at bedtime.^Disp: 90 tablet^Rfl: 3 aspirin 325 mg tablet^Take 1 tablet by mouth once daily.^Disp: 90 tablet^Rfl: 1 (Patient not taking: Reported on 06/11/2022) Signed: Chalo Pritchard DO June 11, 2022 documented in this encounter [facility] 06-11-2022 Nurse Note Patient brought home blood pressure monitor to compare with office monitor. Office monitor: BP 115/54 HR 76 Home monitor: BP 131/73 HR 74 documented in this encounter [facility] 12-12-2021 History of Present illness Narrative VASCULAR SURGERY ESTABLISHED PATIENT SERVICE DATE: 12/12/2021 SERVICE TIME: 11:15 AM PRIMARY CARE PHYSICIAN: Aure Little CNP, PHARM TECH SUBJECTIVE HISTORY OF PRESENT ILLNESS: Patient returns for annual follow up for PVD of the lower extremities with right axillobifemoral bypass graft in December [address] Murray for severe aortic stenosis at the level of the renal arteries. History significant for chronic systolic HF (recovered EF), CAD, HTN, HLD, DM II, lumbar spinal stenosis, osteoarthritis of hips, former smoker. Since last visit by Dr. Murray about a year ago, she reports progressive non specific symptoms of bilateral leg weakness, pain, tired with short distances without rest pain or tissue loss. She is on ASA and statin therapy. PAST MEDICAL/SURGICAL/FAMILY/SOCIAL HISTORY PAST MEDICAL HISTORY Diagnosis Date Cardiomyopathy (HCC) Claudication (HCC) DM (diabetes mellitus) (HCC) HTN (hypertension) Incontinence NSVT (nonsustained ventricular tachycardia) (HCC) Sciatica Systolic CHF (HCC) PAST SURGICAL HISTORY Procedure Laterality Date CHOLECYSTECTOMY TOTAL ABDOMINAL HYSTERECT W/WO RMVL TUBE OVARY No family history on file. SOCIAL HISTORY Social History Tobacco Use Smoking status: Former Smokeless tobacco: Never Tobacco comments: quit at 36. Substance Use Topics Alcohol use: Not Currently Drug use: Never MEDICATIONS/ALLERGIES Current Outpatient Medications Medication Sig Dispense Refill carvedilol (COREG) 25 mg tablet Take 1 tablet by mouth twice daily. 180 tablet 3 magnesium oxide (MAG-OX) 400 mg (241.3 mg magnesium) tablet TAKE 1 TABLET BY MOUTH TWICE DAILY, TAKE SEPERATELY FROM DOXYCYCLINE 180 tablet 3 insulin detemir U-100 (LEVEMIR) 100 unit/mL (3 mL) injection pen Inject 35 Units subcutaneously. furosemide (LASIX) 20 mg tablet Take 1 tablet by mouth twice daily. 60 tablet 2 allopurinol (ZYLOPRIM) 100 mg tablet allopurinol 100 mg tablet atorvastatin (LIPITOR) 80 mg tablet Take 80 mg by mouth once daily. metFORMIN (GLUCOPHAGE) 1,000 mg tablet Take 1,000 mg by mouth twice daily. aspirin 325 mg tablet Take 1 tablet by mouth once daily. 90 tablet 1 furosemide (LASIX) 20 mg tablet Take 1 tablet by mouth once daily. (Patient taking differently: Take 20 mg by mouth twice daily.) 30 tablet 0 Insulin [place], Disposable, (BD ULTRA-FINE RUBIA PEN NEEDLE) 32 gauge x 5/32 ndle BD Ultra-Fine Rubia Pen Needle 32 gauge x 5/32 fluticasone (FLONASE) 50 mcg/actuation nasal spray fluticasone propionate 50 mcg/actuation nasal spray,suspension LEVEMIR FLEXTOUCH U-100 INSULN 100 unit/mL (3 mL) inpn injection 10 Units. Current Facility-Administered Medications Medication Dose Route Frequency Provider Last Rate Last Admin perflutren lipid microspheres 1.3 mL in NaCl (PF) 0.9% 10 mL injection (DEFINITY) INTRAVENOUS DIRECTED PRN Chalo Pritchard DO sodium chloride 0.9 % (flush) 10 mL (BD POSIFLUSH) 10 mL INTRAVENOUS DIRECTED PRN Chalo Pritchard, ALLERGIES Allergen Reactions Penicillins Anaphylaxis, Hives Dye Itching Xray dye > 20-30 years ago, throat itching Iodinated Contrast * Other: See Comments Throat itching to some Xray dye >20-30 years ago OBJECTIVE BP 147/85 Pulse 71 General: Alert and oriented, No acute distress Integumentary: Normal color, no rash, no lesions. HEENT: EOM, pupils equal, round and reactive. Cardiovascular: Pulse regular. Lungs: No chest deformities or chest wall tenderness. Abdomen: Not examined Extremities: No deformity, no edema or tenderness, no joint swelling or clubbing. Neurological: Normal cognition and motor skills. Gait normal. No weakness or sensory deficit. Vascular: Posterior Tibial Right: Dopplerable Only - Left: Dopplerable Only Dorsalis Pedal Right: Dopplerable Only - Left: Dopplerable Only Imaging reviewed for today's visit: 10/09/21 RABI 1.41 NC, TBI 0.61, LABI 1.60, TBI 0.68 01/06/21 RABI 1.25 NC, TBI 0.54, LABI 1.29, TIB 0.62 02/19/20 RABI 1.39 NC, TBI 0.62, LABI 2.08 NC, TBI 0.56 05/16/19 CTA A/P/runoff: focal severe aortic narrowing secondary to bulky atherosclerotic calcifications in the immediate infrarenal component, the distal aorta appears patent. The fem pop segments are patent bilaterally with three-vessel runoff to both extremities. 01/13/19 NAVI 0-19%, LICA 0-19% ASSESSMENT (I74.09) Aortoiliac occlusive disease (HCC) (primary encounter diagnosis) Patient is a 76 yo female with history of right axillobifemoral bypass graft in December [address] Murray for severe aortic stenosis at the level of the renal arteries. Compared to prior study as above, TBIs R 0.61, L 0.68, previously R 0.54, L 0.62 with progressive non specific symptoms of bilateral leg weakness, pain, tired with short distances without rest pain or tissue loss. History also significant for lumbar spinal stenosis and osteoarthritis of hips. PLAN/RECOMMENDATIONS Will further discuss with Dr. Jim if further workup is warranted vs. surveillance Optimal medical management, continue ASA Continue cardiovascular risk factor management and statin therapy Medical Decision Making: Problems: Low: Stable chronic illness Data: Unique test result(s) reviewed: 3+ Unique test(s) ordered: 1 Discussed management or test w/ external physician/QHCP/source Risk: Low: Low risk from testing/treatment Medical Decision Making Level: 3 - Low SIGNATURE: Janny Jay APRN.CNP PATIENT NAME: Arleth Elias DATE: December 12, 2021 TIME: 11:15 AM documented in this encounter [facility] 12-05-2021 History of Present illness Narrative Images from the original note were not included. [facility] [place] [facility] December 05, 2021 Outpatient VISIT TYPE Established PRIMARY CARE PHYSICIAN: Alan Vega, DO [address] [place] [address] [place], [place] [id number] HISTORY OF PRESENT ILLNESS: Ms. Elias is a 76 year old female with a past medical history of Chronic systolic heart failure recovered LVEF 35%->61%, nonischemic cardiomyopathy, CAD status post [facility] on 06/07/2019 with 50-70% stenosis of the mid LAD, HTN, HLD, PVD sp right axillobifemoral bypass graft on 01/02/20 for severe aortic stenosis at the level of the renal arteries, DM, diverticulitis, ankle pain. Last visit was on 09/04/2021, per that note: ... she states that she was at a [employer] restaurant and had some chest discomfort/pressure for a few hours. She went home and laid down and then the discomfort went away. She states that it has not recurred since then. She has noted alittle foot swelling over the last couple weeks. She has insomnia and states that she has no energy. She continues to have diarrhea. 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 She denies having any: palpitations, shortness of breath, orthopnea, presyncope/syncope, N/V, bleeding, or other significant symptoms. Today, she tells me that she feels she is doing well. She feels like she has limited energy. She denies having any: chest pain, palpitations, shortness of breath, orthopnea, LE edema, presyncope/syncope, N/V, bleeding, or other significant symptoms. She is eating vegetables on most daily. She has noted her weight increasing and doesn't understand why. She only occasionally has coffee. She will have an alcoholic beverage 3 times a year. She doesn't smoke or use any drugs. She goes to pool walking for an hour 3x per week, she will do this for an hour. Family, father had cancer. Mother was in her early 60s with CABG and a pacemaker. 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 Upon further questioning, she wakes up at least 3 times a night. Sometimes after waking she feels like she can't get back to sleep. IMPRESSION: Encounter Diagnosis ICD-10-CM 1. Claudication (HCC) I73.9 2. H/O aorto-femoral bypass Z95.828 3. Nonsustained ventricular tachycardia (HCC) I47.2 carvedilol (COREG) 25 mg tablet 4. Systolic heart failure, unspecified HF chronicity (HCC) I50.20 carvedilol (COREG) 25 mg tablet 5. 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 I25.10 BASIC METABOLIC PNL CBC 6. Essential hypertension I10 7. Mixed hyperlipidemia E78.2 8. Hyperlipidemia associated with type 2 diabetes mellitus (HCC) E11.69 E78.5 9. Moderate obstructive sleep apnea G47.33 10. Class 1 obesity due to excess calories with serious comorbidity and body mass index (BMI) of 32.0 to 32.9 in adult E66.09 Z68.32 PLAN AND RECOMMENDATIONS: Increasing claudication noted, previously seen by vascular surgery. Recommend that she is seen by vascular medicine, PVR noted to be abnormal. Of note she has a prior history of axillobifemoral bypass graft in 2020. Hx of NSVT noted, she is taking a b-genia(carvedilol 12.5mg BID), NSVT burden less than 2% the last time it was checked. Chronic systolic heart failure with recovered LVEF, prior echocardiogram showed LVEF of 61% now last was 45%. Lower extremity edema very mild, she should consider using compression stockings for this. Due to her increasing symptoms we will repeat echocardiogram. Continue current medications: Increase carvedilol to 25mg BID Currently on furosemide 20mg BID We will discuss her symptoms at next visit and consider if further titration is necessary at next visit. CAD with intermediate lesion in the LAD, IFR 0.9. continue cardiac medications at this time. Continue cardiac medications: Aspirin, beta genia, statin. Goal blood pressure less than 130/80 mmHg. Will attempt to maintain systolic BP above 85mmHg. Continue current antihypertensive medications, BP is controlled. Also continue lifestyle modifications. Recheck BMP prior to next visit. Goal LDL is less than 70 mg/dL. I recommend continuing atorvastatin at this time. Check lipids at least yearly. Goal A1C is less than 7.0%. ERASMO noted, FU with sleep medicine prior to next visit. We briefly discussed the importance of diet and exercise and maintaining ideal body weight. REVIEW OF SYSTEMS: Chest pain No Shortness of breath Yes Bleeding No Dizziness No Syncope No Palpations No 10 systems reviewed and are negative with the exception of pertinent positives described in HPI PHYSICAL EXAMINATION: via telephone BP 127/73 Pulse 77 Wt 90.3 kg (199 lb) SpO2 96% BMI 32.12 kg/m Gen.: No apparent distress, obese HEENT: normocephalic, EOMI, no JVD, No carotid bruit. Heart: regular rhythm, no significant murmur Lungs: clear to auscultation Abdomen: bowel sounds present Extremities: trace edema in feet BL. Musculoskeletal: chest wall nontender Neurological: alert and oriented Psychiatric: appropriate and cooperative Skin: no rash, cellulitis or lesions appreciated CARDIOVASCULAR MEDICINE TESTING: I have personally reviewed ECG, PVR report, echocardiogram report, stress test report, MCOT report, and labs ECG- 09/04/2021 Sinus rhythm with occasional PVC 81 bpm, possible anterior infarct age undetermined, abnormal ECG PVR-01/06/21 IMPRESSION Compared to prior study of 02/19/2020, Right TBI was .62; left was.56. No significant change in PVR waveforms throughout. RIGHT SIDE Resting right ankle brachial index: 1.25 Partially non-compressible arteries, TIARA not accurate. Right toe brachial index: 0.54 Non-compressible vessels, results called by PVR tracings. Abnormal toe brachial index at rest is evidence of peripheral artery disease. Right ankle: Moderate disease at rest. Aortic or bilateral iliofemoral disease. LEFT SIDE Resting left ankle brachial index: 1.29 Partially non-compressible arteries, TIARA not accurate. Left toe brachial index: 0.62 Non-compressible vessels, results called by PVR tracings. Abnormal toe brachial index at rest is evidence of peripheral artery disease. Left ankle: Moderate disease at rest. Aortic or bilateral iliofemoral disease. SPECT - 10/07/21 CONCLUSIONS: 1. SPECT Perfusion Study: Normal. 2. There is no scintigraphic evidence for inducible ischemia. 3. No evidence of scarred myocardium. 4. Left ventricle is normal in size. The left ventricle systolic function is normal. 5. Right ventricle is normal in size. 6. This is a low risk scan. Gated Stress FBP LVEF % 67 Echo-10/09/21 CONCLUSIONS: - Exam indication: Chest Pain - The left ventricle is normal in size. Left ventricular systolic function is mildly decreased. EF = 45 5% (3D) Grade I left ventricular diastolic dysfunction. - The right ventricle is normal in size. Right ventricular systolic function is normal. - Estimated right ventricular systolic pressure is 25 mmHg consistent with normal pulmonary artery pressures. Estimated right atrial pressure is 3 mmHg based on IVC assessment. - 1+ MR. - Exam was compared with the prior CC echocardiographic exam performed on 04/02/2020 ECHOL. The LV systolic function has mildly decreased ( vs normal EF on prior ). MCOT -05/18/2020 Patient had a min HR of 59 bpm, max HR of 193 bpm, and avg HR of 80 bpm. Predominant underlying rhythm was Sinus Rhythm. 12 Ventricular Tachycardia runs occurred, the run with the fastest interval lasting 7 beats with a max rate of 193bpm, the longest lasting 7 beats with an avg rate of 126 bpm. 3 Supraventricular Tachycardia runs occurred, the run with the fastest interval lasting 5 beats with a max rate of 193 bpm, the longest lasting 7 beats with an avg rate of 135 bpm. Isolated SVEs were rare (<1.0%), SVE Couplets were rare (<1.0%), and SVE Triplets were rare (<1.0%). Isolated VEs were occasional (1.9%, 05119), VE Couplets were rare (<1.0%, 2064), and VE Triplets were rare (<1.0%, 32). Ventricular Bigeminy and Trigeminy were present. 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 Cardiac Catheterization 06/08/2019: LM : normal Mid LAD : 50--70% cx : see initial cath Latest Reference Range & Units Most Recent Sodium 136 - 144 mmol/L 143 08/29/21 11:12 Potassium 3.7 - 5.1 mmol/L 4.3 08/29/21 11:12 Chloride 97 - 105 mmol/L 103 08/29/21 11:12 CO2 22 - 30 mmol/L 29 08/29/21 11:12 BUN 7 - 21 mg/dL 14 08/29/21 11:12 Creatinine 0.58 - 0.96 mg/dL 0.76 08/29/21 11:12 Glucose 74 - 99 mg/dL 194 (H) 08/29/21 11:12 Calcium 8.5 - 10.2 mg/dL 9.3 08/29/21 11:12 Anion Gap 9 - 18 mmol/L 11 08/29/21 11:12 eGFR- >60 02/21/21 13:06 eGFR-All Other Races . >60 02/21/21 13:06 eGFR >=60 mL/min/1.73m 82 08/29/21 11:12 Cholesterol, Total <200 mg/dL 116 08/29/21 11:12 Triglyceride <150 mg/dL 120 08/29/21 11:12 Fasting Time hrs 0 08/29/21 11:12 HDL Cholesterol >39 mg/dL 52 08/29/21 11:12 LDL Cholesterol <100 mg/dL 40 08/29/21 11:12 VLDL Cholesterol <30 mg/dL 24 08/29/21 11:12 TC:HDL Ratio <5.10 2.23 08/29/21 11:12 LDL:HDL Ratio <2.54 0.77 08/29/21 11:12 Non HDL Cholesterol <130 mg/dL 64 08/29/21 11:12 (H): Data is abnormally high Hemoglobin (g/dL) Date Value 08/14/2020 11.7 Hematocrit (%) Date Value 08/14/2020 39.2 WBC (k/uL) Date Value 08/14/2020 8.08 PAST MEDICAL HISTORY Diagnosis Date Cardiomyopathy (HCC) Claudication (HCC) DM (diabetes mellitus) (HCC) HTN (hypertension) Incontinence NSVT (nonsustained ventricular tachycardia) (HCC) Sciatica Systolic CHF (HCC) PAST SURGICAL HISTORY Procedure Laterality Date CHOLECYSTECTOMY TOTAL ABDOMINAL HYSTERECT W/WO RMVL TUBE OVARY Social History Tobacco Use Smoking status: Former Smokeless tobacco: Never Tobacco comments: quit at 36. Substance Use Topics Alcohol use: Not Currently Drug use: Never No family history on file. ALLERGIES Allergen Reactions Penicillins Anaphylaxis, Hives Dye Itching Xray dye > 20-30 years ago, throat itching Iodinated Contrast * Other: See Comments Throat itching to some Xray dye >20-30 years ago CURRENT MEDICATIONS: carvedilol (COREG) 25 mg tablet^Take 1 tablet by mouth twice daily.^Disp: 180 tablet^Rfl: 3 magnesium oxide (MAG-OX) 400 mg (241.3 mg magnesium) tablet^TAKE 1 TABLET BY MOUTH TWICE DAILY, TAKE SEPERATELY FROM DOXYCYCLINE^Disp: 180 tablet^Rfl: 3 insulin detemir U-100 (LEVEMIR) 100 unit/mL (3 mL) injection pen^Inject 35 Units subcutaneously.^Disp: ^Rfl: furosemide (LASIX) 20 mg tablet^Take 1 tablet by mouth twice daily.^Disp: 60 tablet^Rfl: 2 aspirin 325 mg tablet^Take 1 tablet by mouth once daily.^Disp: 90 tablet^Rfl: 1 furosemide (LASIX) 20 mg tablet^Take 1 tablet by mouth once daily.^Disp: 30 tablet^Rfl: 0 (Patient taking differently: Take 20 mg by mouth twice daily.) Insulin [place], Disposable, (BD ULTRA-FINE RUBIA PEN NEEDLE) 32 gauge x ndle^BD Ultra-Fine Rubia Pen Needle 32 gauge x 5/32 ^Disp: ^Rfl: allopurinol (ZYLOPRIM) 100 mg tablet^allopurinol 100 mg tablet^Disp: ^Rfl: atorvastatin (LIPITOR) 80 mg tablet^Take 80 mg by mouth once daily.^Disp: ^Rfl: fluticasone (FLONASE) 50 mcg/actuation nasal spray^fluticasone propionate 50 mcg/actuation nasal spray,suspension^Disp: ^Rfl: LEVEMIR FLEXTOUCH U-100 INSULN 100 unit/mL (3 mL) inpn injection^10 Units. ^Disp: ^Rfl: metFORMIN (GLUCOPHAGE) 1,000 mg tablet^Take 1,000 mg by mouth twice daily.^Disp: ^Rfl: Signed: Chalo Pritchard DO December 05, 2021 documented in this encounter [facility] 10-21-2021 History of Present illness Narrative Sleep Study Check-In Documentation Date: October 21, 2021 Name: Arleth Elias Comments: HST was returned in working order with all sleep questionnaires. Myesah Verde Nomad# [id number] Mail out date: 10/14/21 [employer] Shipping #: [id number] [employer] Return #:[id number] October 14, 2021 An order has been received for Home Sleep Apnea Test (HSAT) from Dr. 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 Visit prep complete - Please refer to the sleep study order (under procedures tab) for protocol details and special instructions. The sleep study is scheduled for 10/15/2021. Insurance: Payor: MEDICARE / Plan: MEDICARE A AND B / Product Type: Medicare / Payor/Plan Subscr Sex Relation Sub. Ins. ID Effective Group Num 1. MEDICARE - ME* ARLETH ELIAS* 1945 Female Self [id number] 09/11/[address]. MMO - MMO MED* ARLETH ELIAS* 1945 Female Self [id number] 10/11/19 [id number] [address] Myesha Verde documented in this encounter [facility] 10-09-2021 Miscellaneous Notes Patient stopped by cardiology front end specialist today. Patient has had blanca surgery appointment(s) canceled to reasons below. Patient last seen Dr. Murray blanca surgery on 01/06/2022, per last appointment note advised patient to follow up in one year 01/06/2022. Please advise if patient should be seen in Vasscular medicine or vasscular surgery. Spoke to patient regarding appointment scheduled on 10/10/21. Received message from outside PSS regarding appointment cancellation. Patient cancelled d/t the following plan per Dr. Pritchard: Increasing claudication noted, previously seen by vascular surgery. Recommend that she is seen by vascular medicine and she should have a PVR test prior to this. In the event that there is significant worsening she will need to be seen by vascular surgery again. Of note she has a prior history of axillobifemoral bypass graft in 2019 See past phone encounter on 09/26/21 from myself. Patient was to be cancelled at that point. Patient was then rescheduled by outside PSS. Per plan she was to follow up with vascular medicine and appointment was cancelled d/t appropriateness. Offered patient to reschedule with Dr. Jim if she would like at the same date/time. Patient highly agitated and states she will wait for Dr. Pritchard to discuss results from PVR scheduled on 10/09/21. Patient then hung up on va... documented in this encounter [facility] 10-07-2021 History of Present illness Narrative RADIOLOGY SERVICE PROGRESS NOTE SERVICE DATE: 10/07/2021 SERVICE TIME: 12:17 PM PATIENT IDENTITY VERIFICATION COMPLETED USING TWO (2) STANDARD IDENTIFIERS: Name and Date of confirmed by patient verbally FALL SCREENING: Has the patient had 2 falls in the last year or 1 fall with injury or currently using an Ambulatory Assistive Device (Walker, Cane, Wheelchair, Crutches, etc.)? No PATIENT GENDER DATA: .female : No ALLERGIES: Reviewed and unchanged MEDICATIONS REVIEWED: No PATIENT RELEVANT IMPLANT DATA REVIEWED: Not Applicable CREATININE: Creatinine Date Value Ref Range Status 08/29/2021 0.76 0.58 - 0.96 mg/dL Final 02/21/2021 0.74 0.58 - 0.96 mg/dL Final 08/14/2020 0.73 0.58 - 0.96 mg/dL Final Estimated Glomerular Filtration Rate Date Value Ref Range Status 08/29/2021 82 >=60 mL/min/1.73m Final Comment: Estimated Glomerular Filtration Rate (eGFR) is calculated using the 2020 CKD-EPI creatinine equation. This equation utilizes serum creatinine, sex, and age as parameters. The creatinine assay has traceable calibration to isotope dilution-mass spectrometry. Refer to KDIGO guidelines for clinical interpretation. In patients with unstable renal function, e.g. those with acute kidney injury, the eGFR may not accurately reflect actual GFR. eGFR- Date Value Ref Range Status 02/21/2021 >60 Final P.O.C.T. RESULTS: N/A October 07, [address] PERFORMED: No IV SITE: Ambulatory: A peripheral IV was started in the Right hand with a Angio cath: 22 gauge. POST EXAM PIV STATUS: Discontinued PROCEDURE TYPE: NM Stress: 12.2mCi Up73o-[id number] was administered IV for Rest Imaging at 12:20 by Ramila Kuhn. 31.7 mCi En51y-Rectqud was administered IV for Stress Imaging at 13:35 by Ramila Kuhn. ADMINISTRATION TIME: PATIENT DISCHARGED TO: Ambulatory patient, left [place] department area. A Diagnostic radioactive procedure has taken place, with no further precautions necessary other than routine body substance precautions. More information regarding radiation safety can be found using this link: [email or web address] SIGNATURE: Ramila Kuhn PATIENT NAME: Arleth Elias DATE: October 07, 2021 TIME: 12:17 PM PAGER/CONTACT #: documented in this encounter [facility] 2021 Miscellaneous Notes Patient returns call and would like to be transferred to cardiology to schedule d/t how far appointments are scheduling out. Stated to the patient that they may be able to get her in sooner than I'm able to. Transferred call to cardiology. Attempted to reach patient regarding appointment scheduled with Vascular surgery. Referral states patient should be scheduled with Vascular Medicine. Left voicemail with call back number to schedule. documented in this encounter [facility] 09-25-2021 Instructions Charmaine Barth APRN.PHARM TECH - 09/25/2021 10:22 AM EDT ERASMO Evaluation: - We suspect you may have sleep apnea. - Sleep apnea is a serious sleep disorder that occurs when a person's breathing is interrupted during sleep. People with untreated sleep apnea stop breathing repeatedly during their sleep, sometimes hundreds of times during the night. - The most common type of sleep apnea is obstructive sleep apnea. - If left untreated, obstructive sleep apnea can result in a number of health problems including hypertension, stroke, arrhythmias, cardiomyopathy (enlargement of the muscle tissue of the heart), heart failure, diabetes, obesity, and heart attacks. - Treatment options for obstructive sleep apnea may include positive airway pressure (PAP) therapy, oral appliance, hypoglossal nerve stimulator, nose/throat surgery, weight loss, side sleeping, or avoidance of medications or substances that can relax the airway muscles (alcohol, benzodiazepines, and opioids). - We have ordered a Home Sleep Apnea Test (HST) to evaluate for sleep apnea. - This test should be scheduled at your earliest convenience. - Avoid driving if drowsy. We recommend that if you are dozing off while driving, that you do not drive until your sleepiness is appropriately treated. - We encourage a healthy lifestyle with adequate sleep (7-9 hours per night), diet and exercise. - Please schedule a follow up clinic visit now for 2-3 weeks after sleep study is done to review results. Any appointments can be scheduled through the central scheduling system for the [facility] at [phone]. [facility] now offers direct scheduling for patients to schedule appointments. Call the office at [phone], option #5 for questions. May use Message My Doc through My Chart for questions. May use My Chart Refills for refill requests. [facility] website: [email or web address] documented in this encounter [facility] 09-25-2021 History of Present illness Narrative Images from the original note were not included. [facility] New Patient Evaluation PATIENT NAME: Arleth Elias DATE OF SERVICE: September 24, 2021 CONSULTING PROVIDER: Chalo Pritchard [address] [facility] [address] REASON FOR CONSULT: Chalo Pritchard sends the patient for an opinion about ERASMO. My findings and recommendations will be transmitted electronically via shared medical record to the consulting provider. HPI: Arleth Elias is a 75 year old female. Sleep-related history: ERASMO diagnosed in 2019. She was never initiated on therapy. SLEEP-WAKE SCHEDULE Bedtime: 11 PM- 12 AM. She does not have a hard time falling asleep. Wake time: 6:30-7:00 AM, without an alarm. After falling asleep: she wakes up 2 time(s) per night, because of the need to urinate. On weekends, she maintains the same sleep schedule. Average total sleep time (in a 24 hour period): 6 hours. SLEEP-RELATED DETAILS Preferred sleep position: side Breathing disturbances and other behaviors during sleep: unknown . Bruxism: No GERD or aspiration: No Waking up with heart pounding or racing: No Anxiety or rumination: No She reports having an urge to move the legs. The urge to move the legs only occurs in the evening or nighttime. The urge to move the legs begins or worsens during periods of rest or inactivity (e.g. lying or sitting). The urge to move the legs is partially or totally relieved by movements such as walking or stretching, at least as long as the activity continues. The urge to move the legs occurs 1-2 nights per month and began 2-3 years ago. There is no history of iron deficiency or anemia. She has not been told that she has leg kicking during sleep. She denies any history of parasomnias. Daytime sleepiness is not a problem. She does not report sleep paralysis or sleep-related hallucinations or cataplexy . WAKE-RELATED DETAILS She works but is not a shift worker. She does not have difficulty with memory or concentration. She denies falling asleep or dozing off when driving. She does take naps. Frequency: 1-2, Duration: 20 minutes Naps are refreshing. She does drink 1 caffeinated beverages per day. There has not been a recent change in weight. Patient Questionnaires Sleep Scores Sleep Questions 12/03/2019 Average hours slept in 24 hours: 5 PROMIS CAT Sleep Disturbance 12/03/2019 09/18/2020 PROMIS Sleep Disturbance T-Score 54 (within normal limits) 66 (moderate) PHQ-9 12/03/2019 03/03/2020 09/18/2020 Score 8 4 9 PROMIS Global Health - (T-Scores - the mean of general population = 50. Five points is a clinically meaningful difference.) 12/03/2019 03/03/2020 09/18/2020 Physical T-Score 32.4 42.3 29.6 Mental T-Score 45.8 50.8 56 PAST TREATMENTS: None PRIOR SLEEP STUDIES: A Polysomnogram performed on 03/14/2019 revealed an AHI of 22; and the mean oxygen saturation was 92%, with a minimum of 80%. OTHER RELEVANT LABS AND STUDIES: Hemoglobin Date Value Ref Range Status 08/14/2020 11.7 11.5 - 15.5 g/dL Final 08/14/2020 11.7 11.5 - 15.5 g/dL Final PAST MEDICAL HISTORY Diagnosis Date Cardiomyopathy (HCC) Claudication (HCC) DM (diabetes mellitus) (HCC) HTN (hypertension) Incontinence NSVT (nonsustained ventricular tachycardia) (HCC) Sciatica Systolic CHF (HCC) PAST SURGICAL HISTORY Procedure Laterality Date CHOLECYSTECTOMY TOTAL ABDOMINAL HYSTERECT W/WO RMVL TUBE OVARY ACTIVE PROBLEM LIST Posterior Tibial Tendonitis Chronic Pain of Right Ankle Claudication (Hcc) Essential Hypertension Mixed Hyperlipidemia Class 1 Obesity Due to Excess Calories With Serious Comorbidity and Body Mass Index (Bmi) of 32.0 to 32.9 in Adult Systolic Heart Failure (Hcc) Nonsustained Ventricular Tachycardia (Hcc) Bruit of Left Carotid Artery Diabetes Mellitus (Hcc) Intermittent Claudication of Both Lower Extremities Due to Atherosclerosis (Hcc) Cardiomyopathy (Hcc) Preoperative Testing Coronary Artery Disease Without Angina Pectoris Aortoiliac Occlusive Disease (Hcc) Allergies As of Date: 09/25/2021 Allergen Noted Reaction PENICILLINS 06/29/2014 Anaphylaxis and Hives DYE 08/17/2016 Itching IODINATED CONTRAST MEDIA 12/22/2018 Other: See Comments Fully Assessed 09/04/2021 CURRENT MEDICATIONS: magnesium oxide (MAG-OX) 400 mg (241.3 mg magnesium) tablet TAKE 1 TABLET BY MOUTH TWICE DAILY, TAKE SEPERATELY FROM DOXYCYCLINE carvedilol (COREG) 12.5 mg tablet Take 1 tablet by mouth twice daily. insulin detemir U-100 (LEVEMIR) 100 unit/mL (3 mL) injection pen Inject 35 Units subcutaneously. furosemide (LASIX) 20 mg tablet Take 1 tablet by mouth twice daily. aspirin 325 mg tablet Take 1 tablet by mouth once daily. furosemide (LASIX) 20 mg tablet Take 1 tablet by mouth once daily. Insulin [place], Disposable, (BD ULTRA-FINE RUBIA PEN NEEDLE) 32 gauge x 5/32 ndle BD Ultra-Fine Rubia Pen Needle 32 gauge x 5/32 allopurinol (ZYLOPRIM) 100 mg tablet allopurinol 100 mg tablet atorvastatin (LIPITOR) 80 mg tablet Take 80 mg by mouth once daily. fluticasone (FLONASE) 50 mcg/actuation nasal spray fluticasone propionate 50 mcg/actuation nasal spray,suspension LEVEMIR FLEXTOUCH U-100 INSULN 100 unit/mL (3 mL) inpn injection 10 Units. metFORMIN (GLUCOPHAGE) 1,000 mg tablet Take 1,000 mg by mouth twice daily. Review of Systems Constitutional: Negative. HENT: Positive for congestion. Respiratory: Negative. Cardiovascular: Negative. Gastrointestinal: Negative for heartburn. Genitourinary: Positive for nocturia. Musculoskeletal: Positive for uncomfortable leg sensations (mild rare rls symptoms). Neurological: Negative for dizziness, headaches and memory loss. SOCIAL HISTORY: Social History Tobacco Use Smoking status: Former Smoker Smokeless tobacco: Never Used Tobacco comment: quit at 36. Substance Use Topics Alcohol use: Not Currently Drug use: Never FAMILY HISTORY: No family history on file. There is no family history of sleep disorders. PHYSICAL EXAMINATION: Neurological exam: Patient approapriately answering questions. Language function normal. Memory normal. Speech fluent. IMPRESSION/PLAN: G47.33 Obstructive sleep apnea (primary encounter diagnosis) G47.33 Obstructive sleep apnea syndrome I10 Essential hypertension E78.2 Mixed hyperlipidemia I50.20 Systolic heart failure, unspecified HF chronicity (HCC) I42.9 Cardiomyopathy, unspecified type ([facility]) I25.10 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 E11.51, Z79.4 Type 2 diabetes mellitus with diabetic peripheral angiopathy without gangrene, with long-term current use of insulin ([facility]) E66.09, Z68.32 Class 1 obesity due to excess calories with serious comorbidity and body mass index (BMI) of 32.0 to 32.9 in adult This is a pleasant 75 yo female with a PMH of ERASMO not on PAP therapy, CAD, HTN, HLD, DM2, CHF, cardiomyopathy and obesity who presents via virtual visit as a new patient to establish care with sleep medicine for ERASMO. She had a PSG completed in 2019 at OSH that showed moderate ERASMO with an AHI of 22 events per hour. Her average oxygen saturation was 92%, with a minimum of 80 %. She reports these results were never discussed with her and therapy was never started. She cannot recall why the test was performed. Pathophysiology, risks, and complications of untreated sleep apnea were discussed, including the potential long-term metabolic, neurocognitive, and cardiovascular implications. Repeat testing is necessary as prior results are over 2 years old. All questions were answered. - Home Sleep Apnea Test (HST) to evaluate for obstructive sleep apnea. - Discussed with the patient the possible diagnosis, causes, and conditions associated with obstructive sleep apnea. - Avoid driving when drowsy. Recommend that if you are dozing off while driving, that you do not drive until your sleepiness is appropriately treated. -Encouraged healthy lifestyle with adequate sleep ( 7-9 hours per night), diet and exercise. - Results are usually available within 7-10 business days. . - Follow up visit 2-3 weeks after your sleep study to review results and discuss next steps. Charmaine Barth APRN.GUALBERTO I spent a total of 40 minutes on the date of the service which included preparing to see the patient, [id number] patient care, completing clinical documentation, obtaining and/or reviewing separately obtained history, counseling and educating the patient/family/caregiver, ordering medications, tests, or procedures and communicating results to the patient/family/caregiver. documented in this encounter [facility] 09-04-2021 History of Present illness Narrative Images from the original note were not included. [facility] [place] [facility] September 04, 2021 Outpatient VISIT TYPE Established PRIMARY CARE PHYSICIAN: Alan Vega, DO [address] [place] [id number] HISTORY OF PRESENT ILLNESS: Ms. Elias is a 75 year old female with a past medical history of Chronic systolic heart failure recovered LVEF 35%->61%, nonischemic cardiomyopathy, CAD status post [facility] on 06/07/2019 with 50-70% stenosis of the mid LAD, HTN, HLD, PVD sp right axillobifemoral bypass graft on 01/02/20 for severe aortic stenosis at the level of the renal arteries, DM, diverticulitis, ankle pain. Last visit was on 02/27/2021, per that note: ... she tells me that she walks in the pool 3x per week. She states that her right leg bothers her the most. She was told that the pain in her hip is likely due to her back. She needed to do land therapy and caudal injections. She states that since her insurance ran out she has not been able to do more sessions. She denies having any: chest pain, palpitations, shortness of breath, orthopnea, LE edema, presyncope/syncope, N/V, bleeding, or other significant symptoms. Today, she states that she was at a [employer] restaurant and had some chest discomfort/pressure for a few hours. She went home and laid down and then the discomfort went away. She states that it has not recurred since then. She has noted alittle foot swelling over the last couple weeks. She has insomnia and states that she has no energy. She continues to have diarrhea. 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 She denies having any: palpitations, shortness of breath, orthopnea, presyncope/syncope, N/V, bleeding, or other significant symptoms. She is eating vegetables on most daily. She only occasionally has coffee. She will have an alcoholic beverage 3 times a year. She doesn't smoke or use any drugs. She goes to pool walking for an hour 3x per week, she will do this for an hour. Family, father had cancer. Mother was in her early 60s with CABG and a pacemaker. 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 Upon further questioning, she wakes up at least 3 times a night. Sometimes after waking she feels like she can't get back to sleep. IMPRESSION: Encounter Diagnosis ICD-10-CM 1. Chest discomfort R07.89 NM CARDIAC PERF STRESS/PHARM ECHO perflutren lipid microspheres 1.3 mL in NaCl (PF) 0.9% 10 mL injection (DEFINITY) sodium chloride 0.9 % (flush) 10 mL (BD POSIFLUSH) 2. Claudication (HCC) I73.9 3. History of axillobifemoral bypass graft I73.89 PVR LEG W/EXC PHIL VAS LAB 4. Nonsustained ventricular tachycardia (HCC) I47.2 5. Systolic heart failure, unspecified HF chronicity (HCC) I50.20 6. 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 I25.10 ECG COMPLETE 7. Essential hypertension I10 8. Mixed hyperlipidemia E78.2 9. Hyperlipidemia associated with type 2 diabetes mellitus (HCC) E11.69 PVR LEG W/EXC PHIL VAS LAB E78.5 CONSULT TO VASCULAR MEDICINE 10. Obstructive sleep apnea syndrome G47.33 CONSULT TO SLEEP MEDICINE - ADULT 11. Class 1 obesity due to excess calories with serious comorbidity and body mass index (BMI) of 31.0 to 31.9 in adult E66.09 Z68.31 PLAN AND RECOMMENDATIONS: Due to having an episode of chest discomfort as well as her increasing fatigue I recommend that she have a stress test to evaluate for any ischemia. A pharmacologic nuclear perfusion scan is ordered due to her inability to walk on a treadmill. An echocardiogram is ordered to reevaluate her cardiac structure and function. Further recommendations to follow next visit. Increasing claudication noted, previously seen by vascular surgery. Recommend that she is seen by vascular medicine and she should have a PVR test prior to this. In the event that there is significant worsening she will need to be seen by vascular surgery again. Of note she has a prior history of axillobifemoral bypass graft in 2020. Hx of NSVT noted, she is taking a b-genia(carvedilol 12.5mg BID), NSVT burden less than 2% the last time it was checked. Chronic systolic heart failure with recovered LVEF, last echocardiogram showed LVEF of 61%. Lower extremity edema very mild, she should consider using compression stockings for this. Due to her increasing symptoms we will repeat echocardiogram. Continue current medications: Continue carvedilol to 12.5mg BID Currently on furosemide 20mg BID We will discuss her symptoms at next visit and consider if further titration is necessary at next visit. CAD with intermediate lesion in the LAD, IFR 0.9. continue cardiac medications at this time. Continue cardiac medications: Aspirin, beta genia, statin. Goal blood pressure less than 130/80 mmHg. Will attempt to maintain systolic BP above 85mmHg. Continue current antihypertensive medications, BP is controlled. Also continue lifestyle modifications. Recheck BMP prior to next visit. Goal LDL is less than 70 mg/dL. I recommend continuing atorvastatin at this time. Check lipids at least yearly. Goal A1C is less than 7.0%. ERASMO noted to be moderate in 2019, she reluctantly agrees to see sleep medicine as her sleep and energy level are is most concerning symptoms. We briefly discussed the importance of diet and exercise and maintaining ideal body weight. REVIEW OF SYSTEMS: Chest pain Yes Shortness of breath Yes Bleeding No Dizziness No Syncope No Palpations No 10 systems reviewed and are negative with the exception of pertinent positives described in HPI PHYSICAL EXAMINATION: via telephone BP 120/53 Pulse 74 Wt 87.5 kg (193 lb) SpO2 96% BMI 31.15 kg/m Gen.: No apparent distress, obese HEENT: normocephalic, EOMI, no JVD, No carotid bruit. Heart: regular rhythm, no significant murmur Lungs: clear to auscultation Abdomen: bowel sounds present Extremities: trace edema in feet BL. Musculoskeletal: chest wall nontender Neurological: alert and oriented Psychiatric: appropriate and cooperative Skin: no rash, cellulitis or lesions appreciated CARDIOVASCULAR MEDICINE TESTING: I have personally reviewed ECG, PVR report, echocardiogram report, stress test report, MCOT report, and labs ECG 09/04/2021 Sinus rhythm with occasional PVC 81 bpm, possible anterior infarct age undetermined, abnormal ECG PVR 01/06/21 IMPRESSION Compared to prior study of 02/19/2020, Right TBI was .62; left was.56. No significant change in PVR waveforms throughout. RIGHT SIDE Resting right ankle brachial index: 1.25 Partially non-compressible arteries, TIARA not accurate. Right toe brachial index: 0.54 Non-compressible vessels, results called by PVR tracings. Abnormal toe brachial index at rest is evidence of peripheral artery disease. Right ankle: Moderate disease at rest. Aortic or bilateral iliofemoral disease. LEFT SIDE Resting left ankle brachial index: 1.29 Partially non-compressible arteries, TIARA not accurate. Left toe brachial index: 0.62 Non-compressible vessels, results called by PVR tracings. Abnormal toe brachial index at rest is evidence of peripheral artery disease. Left ankle: Moderate disease at rest. Aortic or bilateral iliofemoral disease. Echo 04/02/20 CONCLUSIONS: - Technically difficult exam due to body habitus. - Exam indication: Congestive heart failure - The left ventricle is normal in size. There is mild left ventricular hypertrophy. Left ventricular systolic function is normal. EF = 61 5% (2D biplane) Definity contrast used for endocardial border detection. - Limited echo for LV function. - No significant valvular abnormalities identified. - Exam was compared with the prior echocardiographic exam performed on 11/15/19. No significant change from the prior study from the items that were evaluated as this was a limited study. MCOT -05/18/2020 Patient had a min HR of 59 bpm, max HR of 193 bpm, and avg HR of 80 bpm. Predominant underlying rhythm was Sinus Rhythm. 12 Ventricular Tachycardia runs occurred, the run with the fastest interval lasting 7 beats with a max rate of 193bpm, the longest lasting 7 beats with an avg rate of 126 bpm. 3 Supraventricular Tachycardia runs occurred, the run with the fastest interval lasting 5 beats with a max rate of 193 bpm, the longest lasting 7 beats with an avg rate of 135 bpm. Isolated SVEs were rare (<1.0%), SVE Couplets were rare (<1.0%), and SVE Triplets were rare (<1.0%). Isolated VEs were occasional (1.9%, [id number]), VE Couplets were rare (<1.0%, 2064), and VE Triplets were rare (<1.0%, 32). Ventricular Bigeminy and Trigeminy were present. SPECT 09/12/20 CONCLUSIONS: 1. SPECT Perfusion Study: Normal. 2. There is no scintigraphic evidence for inducible ischemia. 3. No evidence of scarred myocardium. 4. Left ventricle is normal in size. The left ventricle systolic function is normal. 5. Right ventricle is normal in size. The right ventricle systolic function is normal. 6. This is a low risk scan. 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 Range 08/29/2021 11:12 Sodium Latest Ref Range: 136 - 144 mmol/L 143 Potassium Latest Ref Range: 3.7 - 5.1 mmol/L 4.3 Chloride Latest Ref Range: 97 - 105 mmol/L 103 CO2 Latest Ref Range: 22 - 30 mmol/L 29 BUN Latest Ref Range: 7 - 21 mg/dL 14 Creatinine Latest Ref Range: 0.58 - 0.96 mg/dL 0.76 Glucose Latest Ref Range: 74 - 99 mg/dL 194 (H) Calcium Latest Ref Range: 8.5 - 10.2 mg/dL 9.3 Anion Gap Latest Ref Range: 9 - 18 mmol/L 11 eGFR Latest Ref Range: >=60 mL/min/1.73m 82 Cholesterol, Total Latest Ref Range: <200 mg/dL 116 Triglyceride Latest Ref Range: <150 mg/dL 120 Fasting Time Latest Units: hrs 0 HDL Cholesterol Latest Ref Range: >39 mg/dL 52 LDL Cholesterol Latest Ref Range: <100 mg/dL 40 VLDL Cholesterol Latest Ref Range: <30 mg/dL 24 TC:HDL Ratio Latest Ref Range: <5.10 2.23 LDL:HDL Ratio Latest Ref Range: <2.54 0.77 Non HDL Cholesterol Latest Ref Range: <130 mg/dL 64 Hemoglobin (g/dL) Date Value 08/14/2020 11.7 Hematocrit (%) Date Value 08/14/2020 39.2 WBC (k/uL) Date Value 08/14/2020 8.08 PAST MEDICAL HISTORY Diagnosis Date Cardiomyopathy (HCC) Claudication (HCC) DM (diabetes mellitus) (HCC) HTN (hypertension) Incontinence NSVT (nonsustained ventricular tachycardia) (HCC) Sciatica Systolic CHF (HCC) PAST SURGICAL HISTORY Procedure Laterality Date CHOLECYSTECTOMY TOTAL ABDOMINAL HYSTERECT W/WO RMVL TUBE OVARY Social History Tobacco Use Smoking status: Former Smoker Smokeless tobacco: Never Used Tobacco comment: quit at 36. Substance Use Topics Alcohol use: Not Currently Drug use: Never No family history on file. ALLERGIES Allergen Reactions Penicillins Anaphylaxis, Hives Dye Itching Xray dye > 20-30 years ago, throat itching Iodinated Contrast * Other: See Comments Throat itching to some Xray dye >20-30 years ago CURRENT MEDICATIONS: magnesium oxide (MAG-OX) 400 mg (241.3 mg magnesium) tablet TAKE 1 TABLET BY MOUTH TWICE DAILY, TAKE SEPERATELY FROM DOXYCYCLINE carvedilol (COREG) 12.5 mg tablet Take 1 tablet by mouth twice daily. insulin detemir U-100 (LEVEMIR) 100 unit/mL (3 mL) injection pen Inject 35 Units subcutaneously. furosemide (LASIX) 20 mg tablet Take 1 tablet by mouth twice daily. aspirin 325 mg tablet Take 1 tablet by mouth once daily. furosemide (LASIX) 20 mg tablet Take 1 tablet by mouth once daily. Insulin [place], Disposable, (BD ULTRA-FINE RUBIA PEN NEEDLE) 32 gauge x 532 ndle BD Ultra-Fine Rubia Pen Needle 32 gauge x 5/32 allopurinol (ZYLOPRIM) 100 mg tablet allopurinol 100 mg tablet atorvastatin (LIPITOR) 80 mg tablet Take 80 mg by mouth once daily. fluticasone (FLONASE) 50 mcg/actuation nasal spray fluticasone propionate 50 mcg/actuation nasal spray,suspension LEVEMIR FLEXTOUCH U-100 INSULN 100 unit/mL (3 mL) inpn injection 10 Units. metFORMIN (GLUCOPHAGE) 1,000 mg tablet Take 1,000 mg by mouth twice daily. I spent over 40 minutes in direct patient contact and in reviewing the relevant documents. Signed: Chalo Pritchard DO September 04, 2021 documented in this encounter [facility] 09-04-2021 Nurse Note Patient brought home blood pressure monitor to compare with office monitor. Office monitor: BP 120/53 HR 74 Home monitor: BP 119/71 HR 76 documented in this encounter [facility] 07-21-2021 Miscellaneous Notes The following approved medication requests have been transmitted electronically. Signed Prescriptions Disp Refills magnesium oxide (MAG-OX) 400 mg (241.3 mg magnesium) tablet 180 tablet 3 Sig: TAKE 1 TABLET BY MOUTH TWICE DAILY, TAKE SEPERATELY FROM DOXYCYCLINE TRAVIS: No Authorizing Provider: DWIGHT ROSS APRN.PHARM TECH Last OV: 02/2021 Future appt noted: 08/2021 Pending Prescriptions Disp Refills MAGNESIUM OXIDE 400 MG (241.3 MG MAGNESIUM) TABLET 180 tablet Sig: TAKE 1 TABLET BY MOUTH TWICE DAILY, TAKE SEPERATELY FROM DOXYCYCLINE TRAVIS: Yes Please review and advise. documented in this encounter [facility] Evaluation note Diagnosis Hypomagnesemia Disorders of magnesium metabolism [facility] Diagnosis Chest discomfort- Primary Other chest pain Claudication (HCC) Peripheral vascular disease, unspecified History of axillobifemoral bypass graft Nonsustained ventricular tachycardia (HCC) Paroxysmal ventricular tachycardia Systolic heart failure, unspecified HF chronicity (HCC) 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 Essential hypertension Unspecified essential hypertension Mixed hyperlipidemia Hyperlipidemia associated with type 2 diabetes mellitus (HCC) Obstructive sleep apnea syndrome Obstructive sleep apnea (adult) (pediatric) Class 1 obesity due to excess calories with serious comorbidity and body mass index (BMI) of 31.0 to 31.9 in adult [facility] Diagnosis Obstructive sleep apnea- Primary Obstructive sleep apnea (adult) (pediatric) Obstructive sleep apnea syndrome Obstructive sleep apnea (adult) (pediatric) Essential hypertension Unspecified essential hypertension Mixed hyperlipidemia Systolic heart failure, unspecified HF chronicity (HCC) Cardiomyopathy, unspecified type (HCC) 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 Type 2 diabetes mellitus with diabetic peripheral angiopathy without gangrene, with long-term current use of insulin (HCC) Class 1 obesity due to excess calories with serious comorbidity and body mass index (BMI) of 32.0 to 32.9 in adult [facility] Diagnosis Claudication (HCC)- Primary Peripheral vascular disease, unspecified H/O aorto-femoral bypass Personal history of surgery to heart and great vessels, presenting hazards to health Nonsustained ventricular tachycardia (HCC) Paroxysmal ventricular tachycardia Systolic heart failure, unspecified HF chronicity (HCC) 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 Essential hypertension Unspecified essential hypertension Mixed hyperlipidemia Hyperlipidemia associated with type 2 diabetes mellitus (HCC) Moderate obstructive sleep apnea Obstructive sleep apnea (adult) (pediatric) Class 1 obesity due to excess calories with serious comorbidity and body mass index (BMI) of 32.0 to 32.9 in adult [facility] Diagnosis Aortoiliac occlusive disease (HCC)- Primary Other arterial embolism and thrombosis of abdominal aorta [facility] Diagnosis 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 mellitus (HCC)- Primary Other fatigue [facility] Diagnosis Dyspnea, unspecified type- Primary Claudication (HCC) Peripheral vascular disease, unspecified H/O aorto-femoral bypass Personal history of surgery to heart and great vessels, presenting hazards to health Nonsustained ventricular tachycardia (HCC) Paroxysmal ventricular tachycardia Systolic heart failure, unspecified HF chronicity (HCC) 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 Essential hypertension Unspecified essential hypertension Mixed hyperlipidemia Hyperlipidemia associated with type 2 diabetes mellitus (HCC) Moderate obstructive sleep apnea Obstructive sleep apnea (adult) (pediatric) Hypomagnesemia Disorders of magnesium metabolism Class 1 obesity due to excess calories with serious comorbidity and body mass index (BMI) of 32.0 to 32.9 in adult documented [facility] Diagnosis Overactive bladder- Primary Hypertonicity of bladder Hyperlipidemia associated with type 2 diabetes mellitus (HCC) Class 1 obesity due to excess calories with serious comorbidity and body mass index (BMI) of 32.0 to 32.9 in adult Type 2 diabetes mellitus with diabetic peripheral angiopathy without gangrene, with long-term current use of insulin (HCC) documented [facility] Diagnosis Type 2 diabetes mellitus with diabetic peripheral angiopathy without gangrene, with long-term current use of insulin (HCC)- Primary Class 1 obesity due to excess calories with serious comorbidity and body mass index (BMI) of 32.0 to 32.9 in adult Hyperlipidemia associated with type 2 diabetes mellitus (HCC) [facility] Diagnosis Hypomagnesemia Disorders of magnesium metabolism [facility] Diagnosis Type 2 diabetes mellitus with diabetic peripheral angiopathy without gangrene, with long-term current use of insulin (HCC)- Primary Cardiomyopathy, unspecified type (HCC) Essential hypertension Unspecified essential hypertension Class 1 obesity due to excess calories with serious comorbidity and body mass index (BMI) of 32.0 to 32.9 in adult Obstructive sleep apnea Obstructive sleep apnea (adult) (pediatric) documented [facility] this [facility]* Diagnosis Claudication (HCC)- Primary Peripheral vascular disease, unspecified H/O aorto-femoral bypass Personal history of surgery to heart and great vessels, presenting hazards to health Nonsustained ventricular tachycardia (HCC) Paroxysmal ventricular tachycardia Systolic heart failure, unspecified HF chronicity (HCC) 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 Essential hypertension Unspecified essential hypertension Mixed hyperlipidemia Hyperlipidemia associated with type 2 diabetes mellitus (HCC) Moderate obstructive sleep apnea Obstructive sleep apnea (adult) (pediatric) Hypomagnesemia Disorders of magnesium metabolism Class 1 obesity due to excess calories with serious comorbidity and body mass index (BMI) of 30.0 to 30.9 in adult [facility] Diagnosis Type 2 diabetes mellitus with other circulatory complication, with long-term current use of insulin (HCC)- Primary documented [facility]* Diagnosis Type 2 diabetes mellitus with other circulatory complication, with long-term current use of insulin (HCC)- Primary [facility] Diagnosis Encounter for screening for cardiovascular disorders Screening for other and unspecified cardiovascular conditions Encounter for other preprocedural examination [facility] Diagnosis Chest discomfort Other chest pain [facility] Diagnosis Nonsustained ventricular tachycardia (HCC) Paroxysmal ventricular tachycardia Systolic heart failure, unspecified HF chronicity (HCC) documented [facility]* Diagnosis Systolic heart failure, unspecified HF chronicity (HCC)- Primary Unresponsive Other alteration of consciousness Hypotension, unspecified hypotension type Sinus bradycardia Other specified cardiac dysrhythmias documented [facility] this [facility]* Diagnosis Hypomagnesemia Disorders of magnesium metabolism [facility] Diagnosis 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 Mixed hyperlipidemia [facility] Diagnosis 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- Primary Essential hypertension Unspecified essential hypertension [facility] Diagnosis HFrEF (heart failure with reduced ejection fraction) (HCC) Heart failure, unspecified Cardiomyopathy, unspecified type (HCC) Fatigue, unspecified type Shortness of breath [facility] Diagnosis Acute on chronic systolic congestive heart failure (HCC)- Primary Acute on chronic systolic heart failure 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 LBBB (left bundle branch block) Other left bundle branch block Aortoiliac occlusive disease (HCC) Other arterial embolism and thrombosis of abdominal aorta Nonsustained ventricular tachycardia (HCC) Paroxysmal ventricular tachycardia documented [facility] this [facility] Diagnosis Type 2 diabetes mellitus with other circulatory complication, with long-term current use of insulin (HCC)- Primary Obstructive sleep apnea Obstructive sleep apnea (adult) (pediatric) Essential hypertension Unspecified essential hypertension Hyperlipidemia associated with type 2 diabetes mellitus (HCC) (HCC) documented in this [facility]* Diagnosis Acute on chronic systolic congestive heart failure (HCC)- Primary Acute on chronic systolic heart failure documented in [facility]* Diagnosis Shortness of breath- Primary Fatigue, unspecified type HFrEF (heart failure with reduced ejection fraction) ([facility]) Heart failure, unspecified Cardiomyopathy, unspecified type (HCC) 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 Essential hypertension Unspecified essential hypertension Mixed hyperlipidemia Hyperlipidemia associated with type 2 diabetes mellitus (HCC) (HCC) Nonrheumatic mitral valve regurgitation Moderate obstructive sleep apnea Obstructive sleep apnea (adult) (pediatric) H/O aorto-femoral bypass Personal history of surgery to heart and great vessels, presenting hazards to health Class 1 obesity due to excess calories with serious comorbidity and body mass index (BMI) of 30.0 to 30.9 in adult Congestive heart failure, unspecified HF chronicity, unspecified heart failure type ([facility]) documented [facility]* Diagnosis HFrEF (heart failure with reduced ejection fraction) (HCC)- Primary Heart failure, unspecified Ischemic cardiomyopathy Other specified forms of chronic ischemic heart disease LBBB (left bundle branch block) Other left bundle branch block Congestive heart failure, unspecified HF chronicity, unspecified heart failure type (HCC) documented in this [facility]* Diagnosis Acute on chronic systolic congestive heart failure (HCC)- Primary Acute on chronic systolic heart failure Congestive heart failure, unspecified HF chronicity, unspecified heart failure type (HCC) documented in this [facility]* Diagnosis Acute kidney injury (HCC)- Primary Acute kidney failure, unspecified documented [facility]* Diagnosis Chronic systolic heart failure (HCC)- Primary Chronic systolic heart failure LBBB (left bundle branch block) Other left bundle branch block DAV (acute kidney injury) (HCC) Acute kidney failure, unspecified documented [facility] this [facility]* Diagnosis Cardiac resynchronization therapy defibrillator (BERRY GROWER-D) in place- Primary Chronic systolic heart failure (HCC) Chronic systolic heart failure LBBB (left bundle branch block) Other left bundle branch block documented in this [facility]* Diagnosis Chronic systolic congestive heart failure (HCC)- Primary Chronic systolic heart failure LBBB (left bundle branch block) Other left bundle branch block DAV (acute kidney injury) (HCC) Acute kidney failure, unspecified documented in this [facility]* Diagnosis Obstructive sleep apnea syndrome- Primary Obstructive sleep apnea (adult) (pediatric) Essential hypertension Unspecified essential hypertension Mixed hyperlipidemia Type 2 diabetes mellitus with diabetic peripheral angiopathy without gangrene, with long-term current use of insulin (HCC) 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 Cardiomyopathy, unspecified type (HCC) Systolic heart failure, unspecified HF chronicity ([facility]) Class 1 obesity due to excess calories with serious comorbidity and body mass index (BMI) of 32.0 to 32.9 in adult Intermittent claudication of both lower extremities due to atherosclerosis (HCC) Acute heart failure with reduced ejection fraction and diastolic dysfunction (HCC) Aortoiliac occlusive disease (HCC) Other arterial embolism and thrombosis of abdominal aorta Chronic systolic congestive heart failure (HCC) Chronic systolic heart failure HFrEF (heart failure with reduced ejection fraction) (HCC) Heart failure, unspecified LBBB (left bundle branch block) Other left bundle branch block Status post angioplasty with stent Other postprocedural status documented in this [facility]* Diagnosis Chronic systolic heart failure (HCC) Chronic systolic heart failure documented in this [facility]* Diagnosis Pacemaker reprogramming/check- Primary Fitting and adjustment of cardiac pacemaker 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 Mixed hyperlipidemia LBBB (left bundle branch block) Other left bundle branch block Chronic systolic congestive heart failure (HCC) Chronic systolic heart failure documented [facility] this [facility]* Diagnosis Stage 3b chronic kidney disease (HCC)- Primary Screening for genitourinary condition Screening for other and unspecified genitourinary condition Essential hypertension Unspecified essential hypertension Vitamin D deficiency Unspecified vitamin D deficiency Chronic systolic CHF (congestive heart failure) (HCC) Chronic systolic heart failure documented in this encounter [facility] note* Diagnosis HFrEF (heart failure with reduced ejection fraction) ([facility])- Primary Heart failure, unspecified Cardiomyopathy, unspecified type ([facility]) 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 Essential hypertension Unspecified essential hypertension Mixed hyperlipidemia Hyperlipidemia associated with type 2 diabetes mellitus ([facility]) ([facility]) Nonrheumatic mitral valve regurgitation Cardiac resynchronization therapy defibrillator (BERRY GROWER-D) in place H/O aorto-femoral bypass Personal history of surgery to heart and great vessels, presenting hazards to health Moderate obstructive sleep apnea Obstructive sleep apnea (adult) (pediatric) documented in this encounter [facility]* Diagnosis Pacemaker reprogramming/check Fitting and adjustment of cardiac pacemaker [facility]* Diagnosis Hypomagnesemia Disorders of magnesium metabolism documented in this encounter [facility] note* Diagnosis Hypomagnesemia Disorders of magnesium metabolism [facility] Diagnostic Procedure Only (Routine) - Pending Review Specialty Diagnoses / Procedures Referred By Darnell garcia Referred To Contact NEUROLOGICAL [facility] Diagnoses Obstructive sleep apnea syndrome Essential hypertension Cardiomyopathy, unspecified type ([facility]) Class 1 obesity due to excess calories with serious comorbidity and body mass index (BMI) of 32.0 to 32.9 in adult Procedures HOME SLEEP APNEA TEST (HSAT) SLEEP STD AIRFLOW HRT RATE&O2 SAT EFFORT Charmaine Cole APRN.CNP [address], [place] [address] [facility] [address] [place] [address] Referral ID Status Reason Start Date Expiration Date Visits Requested Visits Authorized [id number] Pending Review Auto-Generat ed Referral 09/25/2021 09/25/2022 1 1 [facility] for referral (narrative)* Outpatient Procedure (Routine) - Authorized Specialty Diagnoses / Procedures Referred By Darnell garcia Referred To Contact [facility] Diagnoses Systolic heart failure, unspecified HF chronicity (HCC) Dyspnea, unspecified type Procedures ECHO LIMITED ECHO TRANSTHORAC R-T 2D W/WO M-MODE REC COMP Chalo Pritchard DO [address] [place] [address] [address] Referral ID Status Reason Start Date Expiration Date Visits Requested Visits Authorized [id number] Authorized Auto-Generat ed Referral 06/11/2022 06/11/2023 1 1 * Consult, Test, Treat (Routine) - Authorized Specialty Diagnoses / Procedures Referred By Darnell garcia Referred To Contact Diagnoses Hyperlipidemia associated with type 2 diabetes mellitus (HCC) Class 1 obesity due to excess calories with serious comorbidity and body mass index (BMI) of 32.0 to 32.9 in adult Procedures ENDOCRINE MEDICAL WEIGHT MANAGEMENT OFFICE/OUTPATIENT NEW HIGH MDM 60-74 MINUTES Chalo Pritchard DO [address] [place] [address] Referral ID Status Reason Start Date Expiration Date Visits Requested Visits Authorized [id number] Authorized PCP Requested Referral 06/11/2022 06/11/2023 1 1 * Outpatient Procedure (Routine) - Authorized Specialty Diagnoses / Procedures Referred By Darnell garcia Referred To Contact [facility] Diagnoses 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 Moderate obstructive sleep apnea Procedures ECG COMPLETE ECG ROUTINE ECG W/LEAST 12 LDS W/I&R Chalo Pritchard DO [address] [place] [address] [facility] [address] [address] Referral ID Status Reason Start Date Expiration Date Visits Requested Visits Authorized [id number] Authorized Auto-Generat ed Referral 06/11/2022 06/11/2023 1 1 [facility] for referral (narrative)* Outpatient Procedure (Routine) - Authorized Specialty Diagnoses / Procedures [facility] Referred To Contact [facility] Diagnoses 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 Procedures ECG COMPLETE ECG ROUTINE ECG W/LEAST 12 LDS W/I&R Chalo Pritchard DO [address] [place] [address] [facility] [address] [address] Referral ID Status Reason Start Date Expiration Date Visits Requested Visits Authorized [id number] Authorized Auto-Generat ed Referral 12/17/2022 12/17/2023 1 1 [facility] for referral (narrative)* Diagnostic Procedure Only (Routine) - Closed Specialty Diagnoses / Procedures [facility] Referred To Contact MOLECULAR & FUNCTIONAL IMAGING Diagnoses Chest discomfort Procedures NM CARDIAC PERF STRESS/PHARM MYOCARDIAL SPECT MULTIPLE STUDIES Chalo Pritchard DO [address] [place] [address] Molecular [facility] Functional Imaging [address] [place] [address] Referral ID Status Reason Start Date Expiration Date V isits Requested Visits Authorized [id number] Closed Auto-Generate d Referral 09/04/2021 10/04/2022 1 1 [facility] for referral (narrative)* Outpatient Procedure (Routine) - Pending Review Specialty Diagnoses / Procedures [facility] Referred To Contact [facility] Diagnoses HFrEF (heart failure with reduced ejection fraction) (HCC) Ischemic cardiomyopathy Procedures ECG COMPLETE ECG ROUTINE ECG W/LEAST 12 LDS W/I&[place] [address] [place] [address] [facility] [place] [address] [place] [address] Referral ID Status Reason Start Date Expiration Date Visits Requested Visits Authorized [id number] Pending Review Auto-Generat ed Referral 06/17/2023 06/14/2024 1 1 [facility] for referral (narrative)* Outpatient Procedure (Routine) - Pending Review Specialty Diagnoses / Procedures [facility] Referred To Contact [facility] Diagnoses Chronic systolic heart failure (HCC) Procedures ECHO ECHO TTHRC R-T 2D W/WOM-MODE COMPL SPEC&[place] [address] [place] [address] [id number] [place] [address] Referral ID Status Reason Start Date Expiration Date Visits Requested Visits Authorized [id number] Pending Review Auto-Generat ed Referral 10/05/2023 07/04/2024 1 1 [facility] for referral (narrative)* Diagnostic Procedure Only (Routine) - Pending Review Specialty Diagnoses / Procedures [facility] Referred To Contact [facility] Diagnoses Obstructive sleep apnea syndrome Essential hypertension Procedures HOME SLEEP APNEA TEST (HSAT) SLEEP STD AIRFLOW HRT RATE&O2 SAT EFFORT Charmaine Cole APRN.PHARM TECH [address] [place] [id number] [place] [id number] Referral ID Status Reason Start Date Expiration Date Visits Requested Visits Authorized [id number] Pending Review Auto-Generat ed Referral 08/03/2023 08/02/2024 1 1 [facility] for referral (narrative)* Outpatient Procedure (Routine) - Pending Review Specialty Diagnoses / Procedures [facility] Referred To Contact [facility] Diagnoses Pacemaker reprogramming/check Procedures ECG COMPLETE ECG ROUTINE ECG W/LEAST 12 LDS W/I&[place] [address] [place] [address] [facility] [address] [place] [address] Referral ID Status Reason Start Date Expiration Date Visits Requested Visits Authorized [id number] Pending Review Auto-Generat ed Referral 10/07/2023 10/06/2024 1 1 [facility] for referral (narrative)* Outpatient Procedure (Routine) - Closed Specialty Diagnoses / Procedures Referred By Contac t Referred To Contact [facility] Diagnoses Pacemaker reprogramming/check Procedures CARDIAC IMPLANTABLE DEVICE CHECK [facility] [place] [address] [place] [address] [address] Referral ID Status Reason Start Date Expiration Date V isits Requested Visits Authorized [id number] Closed Auto-Generate d Referral 08/30/2023 08/29/2024 1 1 [facility] for visit Narrative* Diagnostic Procedure Only (Routine) - Closed Specialty Diagnoses / Procedures Referred By Contac t Referred To Contact MOLECULAR & FUNCTIONAL IMAGING Diagnoses Chest discomfort Procedures NM CARDIAC PERF STRESS/PHARM MYOCARDIAL SPECT MULTIPLE STUDIES Chalo Pritchard, [address] [facility] [place] [address] Molecular [facility] Functional Imaging [address] [place] [address] [id number] Referral ID Status Reason Start Date Expiration Date V isits Requested Visits Authorized [id number] Closed Auto-Generate d Referral 09/04/2021 10/04/2022 1 1 [facility] for visit Narrative* Outpatient Procedure (Routine) - Closed Specialty Diagnoses / Procedures Referred By Contac t Referred To Contact [facility] Diagnoses HFrEF (heart failure with reduced ejection fraction) (HCC) Cardiomyopathy, unspecified type (HCC) Fatigue, unspecified type Shortness of breath Procedures ECHO ECHO TTHRC R-T 2D W/WOM-MODE COMPL SPEC&COLR D Maura Glaser, DOG LICENSE OFFICER SUPERVISOR.PHARM TECH [address] [place] [address] [facility] [address] [place] [address] Referral ID Status Reason Start Date Expiration Date V isits Requested Visits Authorized [id number] Closed Auto-Generate d Referral 05/21/2023 04/06/2024 1 1 [facility] for visit Narrative* Outpatient Procedure (Routine) - Closed Specialty Diagnoses / Procedures Referred By Contac t Referred To Contact [facility] Diagnoses Chronic systolic heart failure (HCC) Procedures ECHO ECHO TTHRC R-T 2D W/WOM-MODE COMPL SPEC&[place] [address] [place] [address] [address] Referral ID Status Reason Start Date Expiration Date V isits Requested Visits Authorized [id number] Closed Auto-Generate d Referral 10/05/2023 07/04/2024 1 1 [facility] for visit Narrative* Outpatient Procedure (Routine) - Closed Specialty Diagnoses / Procedures Referred By Contac t Referred To Contact [facility] Diagnoses Pacemaker reprogramming/check Procedures CARDIAC IMPLANTABLE DEVICE CHECK Card [facility] [address] [address] [place] [address] [address] Referral ID Status Reason Start Date Expiration Date V isits Requested Visits Authorized [id number] Closed Auto-Generate d Referral 08/30/2023 08/29/2024 1 1 [facility] Summary Purpose Family History No Family History Records FoundNo Family History Records FoundNo Family History Records FoundNo Family History Records FoundNo Family History Records FoundNo Family History Records FoundNo Family History Records FoundNo Family History Records FoundNo Family History Records FoundNo Family History Records Found Advance Directives No Advanced Directives Records FoundDocuments on File Type Date Recorded Patient Nuclear Medicine Pet Ct Technologist Expl anation Advance Directive(s) 01/02/2020 5:54 AM Advance Directive(s) 12/20/2019 11:35 AM Advance Directive(s) 06/08/2019 8:21 AM Advance Directive(s) 06/07/2019 7:41 AM Documents on File Type Date Recorded Patient Nuclear Medicine Pet Ct Technologist Expl anation Advance Directive(s) 01/02/2020 5:54 AM Advance Directive(s) 12/20/2019 11:35 AM Advance Directive(s) 06/08/2019 8:21 AM Advance Directive(s) 06/07/2019 7:41 AM Latest Code Status on File Code Status Date Activated Date Inactivated Comments Full Code 02/16/2023 10:46 PM 02/17/2023 2:42 PM Question Answer Comments Full Code Order Discussed With: Patient Latest Code Status on File Code Status Date Activated Date Inactivated Comments Full Code 02/16/2023 10:46 PM 02/17/2023 2:42 PM Question Answer Comments Full Code Order Discussed With: Patient Latest Code Status on File Code Status Date Activated Date Inactivated Comments Full Code 02/16/2023 10:46 PM 02/17/2023 2:42 PM Question Answer Comments Full Code Order Discussed With: Patient Date Activated Date Inactivated Comments 02/16/2023 10:46 PM 02/17/2023 2:42 PM Question Answer Comments Full Code Order Discussed With: Patient Date Activated Date Inactivated Comments 02/16/2023 10:46 PM 02/17/2023 2:42 PM Question Answer Comments Full Code Order Discussed With: Patient Reason for Referral Specialty Diagnoses / Procedures Referred By Contac t Referred To Contact Vascular Medicine Diagnoses Hyperlipidemia associated with type 2 diabetes mellitus (HCC) Procedures CONSULT TO VASCULAR MEDICINE OFFICE/OUTPATIENT [facility] 60-74 MINUTES Chalo Pritchard DO [address] [place] [address] Referral ID Status Reason Start Date Expiration Date Visits Requested Visits Authorized [id number] Authorized PCP Requested Referral 09/04/2021 09/04/2022 1 1 Specialty Diagnoses / Procedures Referred By Contac t Referred To Contact [facility] Diagnoses Hyperlipidemia associated with type 2 diabetes mellitus (HCC) Other specified peripheral vascular diseases (HCC) Procedures PVR LEG W/EXC PHIL VAS LAB N-INVAS PHYSIOLOGIC STD LXTR ART COMPL BI Chalo Pritchard DO [address] [facility] [place] [address] [facility] [place] [address] [place] [address] Referral ID Status Reason Start Date Expiration Date Visits Requested Visits Authorized [id number] Authorized Auto-Generat ed Referral 09/04/2021 09/04/2022 1 1 Specialty Diagnoses / Procedures Referred By Contac t Referred To Contact Diagnoses Obstructive sleep apnea syndrome Procedures CONSULT TO SLEEP MEDICINE - ADULT OFFICE/OUTPATIENT NEW HIGH MDM 60-74 MINUTES Chalo Pritchard DO [address] [place] [address] Referral ID Status Reason Start Date Expiration Date Visits Requested Visits Authorized [id number] Authorized PCP Requested Referral 09/04/2021 09/04/2022 1 1 Specialty Diagnoses / Procedures Referred By Contac t Referred To Contact [facility] Diagnoses Chest discomfort Procedures ECHO ECHO TTHRC R-T 2D W/WOM-MODE COMPL SPEC&COLR D Chalo Pritchard DO [address] [facility] [address] [address] Referral ID Status Reason Start Date Expiration Date Visits Requested Visits Authorized [id number] Authorized Auto-Generat ed Referral 09/04/2021 09/04/2022 1 1 Specialty Diagnoses / Procedures Referred By Contac t Referred To Contact MOLECULAR & FUNCTIONAL IMAGING Diagnoses Chest discomfort Procedures NM CARDIAC PERF STRESS/PHARM MYOCARDIAL SPECT MULTIPLE STUDIES Chalo Pritchard DO [address] [place] [address] Molecular [facility] Functional Imaging [address] [place], [place] [id number] Referral ID Status Reason Start Date Expiration Date Visits Requested Visits Authorized [id number] Authorized Auto-Generat ed Referral 09/04/2021 10/04/2022 1 1 Specialty Diagnoses / Procedures Referred By Contac t Referred To Contact [facility] Diagnoses 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 Procedures ECG COMPLETE ECG ROUTINE ECG W/LEAST 12 LDS W/I&R Chalo Pritchard DO [address] [place] [address] [facility] [address] [address] Referral ID Status Reason Start Date Expiration Date Visits Requested Visits Authorized [id number] Authorized Auto-Generat ed Referral 09/04/2021 09/04/2022 1 1 Specialty Diagnoses / Procedures Referred By Contac t Referred To Contact Ophthalmology Diagnoses Type 2 diabetes mellitus with diabetic peripheral angiopathy without gangrene, with long-term current use of insulin (HCC) Procedures CONSULT TO OPHTHALMOLOGY OFFICE/OUTPATIENT [facility] 60-74 MINUTES Mikel Barahona, DOG LICENSE OFFICER SUPERVISOR.PHARM TECH [address] [place] [address] Referral ID Status Reason Start Date Expiration Date Visits Requested Visits Authorized [id number] Authorized PCP Requested Referral 06/24/2022 06/24/2023 1 1 Specialty Diagnoses / Procedures Referred By Contac t Referred To Contact Urology Diagnoses Overactive bladder Procedures CONSULT TO UROLOGY OFFICE/OUTPATIENT [facility] 60-74 MINUTES Mikel Barahona, DOG LICENSE OFFICER SUPERVISOR.PHARM TECH [address] [place] [address] Referral ID Status Reason Start Date Expiration Date Visits Requested Visits Authorized [id number] Authorized PCP Requested Referral 06/23/2022 06/23/2023 1 1 Referral ID Status Reason Start Date Expiration Date Visits Requested Visits Authorized [id number] Authorized PCP Requested Referral 08/07/2022 08/07/2023 1 1 Specialty Diagnoses / Procedures Referred By Contac t Referred To Contact Diagnoses Acute on chronic systolic congestive heart failure (HCC) LBBB (left bundle branch block) Procedures CONSULT TO ELECTROPHYSIOLOGY OFFICE/OUTPATIENT [facility] 60 [place] [address] [place] [address] Referral ID Status Reason Start Date Expiration Date Visits Requested Visits Authorized [id number] Authorized PCP Requested Referral 05/31/2023 05/30/2024 1 1 Specialty Diagnoses / Procedures Referred By Contac t Referred To Contact Nephrology Diagnoses Acute kidney injury (HCC) Procedures CONSULT TO NEPHROLOGY OFFICE/OUTPATIENT [facility] 60 MINUTES Myesha Cheng PA-C [address] [place] [address] Referral ID Status Reason Start Date Expiration Date Visits Requested Visits Authorized [id number] Authorized PCP Requested Referral 07/01/2023 06/30/2024 1 1 Specialty Diagnoses / Procedures Referred By Contac t Referred To Contact Mikel Barahona APRN.[facility] [address] [place] [address] Referral ID Status Reason Start Date Expiration Date Visits Re quested Visits Authorized [id number] Closed 1 1 Additional Source Comments INFORMATION SOURCE (unrecogn ized section and content) DATE CREATED AUTHOR 10/06/2017 [facility] DATE CREATED AUTHOR AUTHOR'S ORGANIZ ATION 07/20/2021 [facility] DATE CREATED AUTHOR AUTHOR'S ORGANIZ ATION 02/17/2023 [facility] DATE CREATED AUTHOR AUTHOR'S ORGANIZ ATION 02/19/2023 [facility] DATE CREATED AUTHOR AUTHOR'S ORGANIZ ATION 02/26/2023 [facility] DATE CREATED AUTHOR AUTHOR'S ORGANIZ ATION 07/08/2023 [facility] DATE CREATED AUTHOR AUTHOR'S ORGANIZ ATION 10/27/2023 [facility] DATE CREATED AUTHOR AUTHOR'S ORGANIZ ATION 10/29/2023 [facility] DATE CREATED AUTHOR AUTHOR'S ORGANIZ ATION 11/04/2023 [facility] DATE CREATED AUTHOR AUTHOR'S ORGANIZ ATION 11/24/2023 [facility] Comments (unrecognize d section and content) In the event this informatio n is protected by the Federal Confidentiality of Alcohol and Drug Abuse Patient Records regulations: The Federal rules restrict any use of the information to criminally investigate or prosecute any alcohol or drug abuse patient.[facility] the event this information is protected by the Federal Confidentiality of Alcohol and Drug Abuse Patient Records regulations: The Federal rules restrict any use of the information to criminally investigate or prosecute any alcohol or drug abuse patient.[facility]In the event this information is protected by the Federal Confidentiality of Alcohol and Drug Abuse Patient Records regulations: The Federal rules restrict any use of the information to criminally investigate or prosecute any alcohol or drug abuse patient.[facility]In the event this information is protected by the Federal Confidentiality of Alcohol and Drug Abuse Patient Records regulations: The Federal rules restrict any use of the information to criminally investigate or prosecute any alcohol or drug abuse patient.[facility]In the event this information is protected by the Federal Confidentiality of Alcohol and Drug Abuse Patient Records regulations: The Federal rules restrict any use of the information to criminally investigate or prosecute any alcohol or drug abuse patient.[facility] ColumbusIn the event this information is protected by the Federal Confidentiality of Alcohol and Drug Abuse Patient Records regulations: The Federal rules restrict any use of the information to criminally investigate or prosecute any alcohol or drug abuse patient.[facility] ColumbusIn the event this information is protected by the Federal Confidentiality of Alcohol and Drug Abuse Patient Records regulations: The Federal rules restrict any use of the information to criminally investigate or prosecute any alcohol or drug abuse patient.[facility] ColumbusIn the event this information is protected by the Federal Confidentiality of Alcohol and Drug Abuse Patient Records regulations: The Federal rules restrict any use of the information to criminally investigate or prosecute any alcohol or drug abuse patient.[facility] ColumbusIn the event this information is protected by the Federal Confidentiality of Alcohol and Drug Abuse Patient Records regulations: The Federal rules restrict any use of the information to criminally investigate or prosecute any alcohol or drug abuse patient.[facility] ColumbusIn the event this information is protected by the Federal Confidentiality of Alcohol and Drug Abuse Patient Records regulations: The Federal rules restrict any use of the information to criminally investigate or prosecute any alcohol or drug abuse patient.[facility] ColumbusIn the event this information is protected by the Federal Confidentiality of Alcohol and Drug Abuse Patient Records regulations: The Federal rules restrict any use of the information to criminally investigate or prosecute any alcohol or drug abuse patient.[facility] ColumbusIn the event this information is protected by the Federal Confidentiality of Alcohol and Drug Abuse Patient Records regulations: The Federal rules restrict any use of the information to criminally investigate or prosecute any alcohol or drug abuse patient.[facility] ColumbusIn the event this information is protected by the Federal Confidentiality of Alcohol and Drug Abuse Patient Records regulations: The Federal rules restrict any use of the information to criminally investigate or prosecute any alcohol or drug abuse patient.[facility] ColumbusIn the event this information is protected by the Federal Confidentiality of Alcohol and Drug Abuse Patient Records regulations: The Federal rules restrict any use of the information to criminally investigate or prosecute any alcohol or drug abuse patient.[facility] ColumbusIn the event this information is protected by the Federal Confidentiality of Alcohol and Drug Abuse Patient Records regulations: The Federal rules restrict any use of the information to criminally investigate or prosecute any alcohol or drug abuse patient.[facility] ColumbusIn the event this information is protected by the Federal Confidentiality of Alcohol and Drug Abuse Patient Records regulations: The Federal rules restrict any use of the information to criminally investigate or prosecute any alcohol or drug abuse patient.[facility] ColumbusIn the event this information is protected by the Federal Confidentiality of Alcohol and Drug Abuse Patient Records regulations: The Federal rules restrict any use of the information to criminally investigate or prosecute any alcohol or drug abuse patient.[facility] ColumbusIn the event this information is protected by the Federal Confidentiality of Alcohol and Drug Abuse Patient Records regulations: The Federal rules restrict any use of the information to criminally investigate or prosecute any alcohol or drug abuse patient.[facility] ColumbusIn the event this information is protected by the Federal Confidentiality of Alcohol and Drug Abuse Patient Records regulations: The Federal rules restrict any use of the information to criminally investigate or prosecute any alcohol or drug abuse patient.[facility] ColumbusIn the event this information is protected by the Federal Confidentiality of Alcohol and Drug Abuse Patient Records regulations: The Federal rules restrict any use of the information to criminally investigate or prosecute any alcohol or drug abuse patient.[facility] ColumbusIn the event this information is protected by the Federal Confidentiality of Alcohol and Drug Abuse Patient Records regulations: The Federal rules restrict any use of the information to criminally investigate or prosecute any alcohol or drug abuse patient.[facility] ColumbusIn the event this information is protected by the Federal Confidentiality of Alcohol and Drug Abuse Patient Records regulations: The Federal rules restrict any use of the information to criminally investigate or prosecute any alcohol or drug abuse patient.[facility] ColumbusIn the event this information is protected by the Federal Confidentiality of Alcohol and Drug Abuse Patient Records regulations: The Federal rules restrict any use of the information to criminally investigate or prosecute any alcohol or drug abuse patient.[facility] ColumbusIn the event this information is protected by the Federal Confidentiality of Alcohol and Drug Abuse Patient Records regulations: The Federal rules restrict any use of the information to criminally investigate or prosecute any alcohol or drug abuse patient.[facility] ColumbusIn the event this information is protected by the Federal Confidentiality of Alcohol and Drug Abuse Patient Records regulations: The Federal rules restrict any use of the information to criminally investigate or prosecute any alcohol or drug abuse patient.[facility] ColumbusIn the event this information is protected by the Federal Confidentiality of Alcohol and Drug Abuse Patient Records regulations: The Federal rules restrict any use of the information to criminally investigate or prosecute any alcohol or drug abuse patient.[facility] ColumbusIn the event this information is protected by the Federal Confidentiality of Alcohol and Drug Abuse Patient Records regulations: The Federal rules restrict any use of the information to criminally investigate or prosecute any alcohol or drug abuse patient.[facility] ColumbusIn the event this information is protected by the Federal Confidentiality of Alcohol and Drug Abuse Patient Records regulations: The Federal rules restrict any use of the information to criminally investigate or prosecute any alcohol or drug abuse patient.[facility] ColumbusIn the event this information is protected by the Federal Confidentiality of Alcohol and Drug Abuse Patient Records regulations: The Federal rules restrict any use of the information to criminally investigate or prosecute any alcohol or drug abuse patient.[facility] ColumbusIn the event this information is protected by the Federal Confidentiality of Alcohol and Drug Abuse Patient Records regulations: The Federal rules restrict any use of the information to criminally investigate or prosecute any alcohol or drug abuse patient.[facility] ColumbusIn the event this information is protected by the Federal Confidentiality of Alcohol and Drug Abuse Patient Records regulations: The Federal rules restrict any use of the information to criminally investigate or prosecute any alcohol or drug abuse patient.[facility] ColumbusIn the event this information is protected by the Federal Confidentiality of Alcohol and Drug Abuse Patient Records regulations: The Federal rules restrict any use of the information to criminally investigate or prosecute any alcohol or drug abuse patient.[facility] ColumbusIn the event this information is protected by the Federal Confidentiality of Alcohol and Drug Abuse Patient Records regulations: The Federal rules restrict any use of the information to criminally investigate or prosecute any alcohol or drug abuse patient.[facility] ColumbusIn the event this information is protected by the Federal Confidentiality of Alcohol and Drug Abuse Patient Records regulations: The Federal rules restrict any use of the information to criminally investigate or prosecute any alcohol or drug abuse patient.[facility] ColumbusIn the event this information is protected by the Federal Confidentiality of Alcohol and Drug Abuse Patient Records regulations: The Federal rules restrict any use of the information to criminally investigate or prosecute any alcohol or drug abuse patient.[facility] ColumbusIn the event this information is protected by the Federal Confidentiality of Alcohol and Drug Abuse Patient Records regulations: The Federal rules restrict any use of the information to criminally investigate or prosecute any alcohol or drug abuse patient.[facility] ColumbusIn the event this information is protected by the Federal Confidentiality of Alcohol and Drug Abuse Patient Records regulations: The Federal rules restrict any use of the information to criminally investigate or prosecute any alcohol or drug abuse patient.[facility] ColumbusIn the event this information is protected by the Federal Confidentiality of Alcohol and Drug Abuse Patient Records regulations: The Federal rules restrict any use of the information to criminally investigate or prosecute any alcohol or drug abuse patient.[facility] ColumbusIn the event this information is protected by the Federal Confidentiality of Alcohol and Drug Abuse Patient Records regulations: The Federal rules restrict any use of the information to criminally investigate or prosecute any alcohol or drug abuse patient.[facility] ColumbusIn the event this information is protected by the Federal Confidentiality of Alcohol and Drug Abuse Patient Records regulations: The Federal rules restrict any use of the information to criminally investigate or prosecute any alcohol or drug abuse patient.[facility] ColumbusIn the event this information is protected by the Federal Confidentiality of Alcohol and Drug Abuse Patient Records regulations: The Federal rules restrict any use of the information to criminally investigate or prosecute any alcohol or drug abuse patient.[facility] ColumbusIn the event this information is protected by the Federal Confidentiality of Alcohol and Drug Abuse Patient Records regulations: The Federal rules restrict any use of the information to criminally investigate or prosecute any alcohol or drug abuse patient.[facility] ColumbusIn the event this information is protected by the Federal Confidentiality of Alcohol and Drug Abuse Patient Records regulations: The Federal rules restrict any use of the information to criminally investigate or prosecute any alcohol or drug abuse patient.[facility] ColumbusIn the event this information is protected by the Federal Confidentiality of Alcohol and Drug Abuse Patient Records regulations: The Federal rules restrict any use of the information to criminally investigate or prosecute any alcohol or drug abuse patient.[facility] ColumbusIn the event this information is protected by the Federal Confidentiality of Alcohol and Drug Abuse Patient Records regulations: The Federal rules restrict any use of the information to criminally investigate or prosecute any alcohol or drug abuse patient.[facility] ColumbusIn the event this information is protected by the Federal Confidentiality of Alcohol and Drug Abuse Patient Records regulations: The Federal rules restrict any use of the information to criminally investigate or prosecute any alcohol or drug abuse patient.[facility] ColumbusIn the event this information is protected by the Federal Confidentiality of Alcohol and Drug Abuse Patient Records regulations: The Federal rules restrict any use of the information to criminally investigate or prosecute any alcohol or drug abuse patient.[facility] ColumbusIn the event this information is protected by the Federal Confidentiality of Alcohol and Drug Abuse Patient Records regulations: The Federal rules restrict any use of the information to criminally investigate or prosecute any alcohol or drug abuse patient.[facility] ColumbusIn the event this information is protected by the Federal Confidentiality of Alcohol and Drug Abuse Patient Records regulations: The Federal rules restrict any use of the information to criminally investigate or prosecute any alcohol or drug abuse patient.[facility] ColumbusIn the event this information is protected by the Federal Confidentiality of Alcohol and Drug Abuse Patient Records regulations: The Federal rules restrict any use of the information to criminally investigate or prosecute any alcohol or drug abuse patient.[facility] ColumbusIn the event this information is protected by the Federal Confidentiality of Alcohol and Drug Abuse Patient Records regulations: The Federal rules restrict any use of the information to criminally investigate or prosecute any alcohol or drug abuse patient.[facility] ColumbusIn the event this information is protected by the Federal Confidentiality of Alcohol and Drug Abuse Patient Records regulations: The Federal rules restrict any use of the information to criminally investigate or prosecute any alcohol or drug abuse patient.[facility] ColumbusIn the event this information is protected by the Federal Confidentiality of Alcohol and Drug Abuse Patient Records regulations: The Federal rules restrict any use of the information to criminally investigate or prosecute any alcohol or drug abuse patient.[facility] ColumbusIn the event this information is protected by the Federal Confidentiality of Alcohol and Drug Abuse Patient Records regulations: The Federal rules restrict any use of the information to criminally investigate or prosecute any alcohol or drug abuse patient.[facility] ColumbusIn the event this information is protected by the Federal Confidentiality of Alcohol and Drug Abuse Patient Records regulations: The Federal rules restrict any use of the information to criminally investigate or prosecute any alcohol or drug abuse patient.[facility] ColumbusIn the event this information is protected by the Federal Confidentiality of Alcohol and Drug Abuse Patient Records regulations: The Federal rules restrict any use of the information to criminally investigate or prosecute any alcohol or drug abuse patient.[facility] ColumbusIn the event this information is protected by the Federal Confidentiality of Alcohol and Drug Abuse Patient Records regulations: The Federal rules restrict any use of the information to criminally investigate or prosecute any alcohol or drug abuse patient.[facility] ColumbusIn the event this information is protected by the Federal Confidentiality of Alcohol and Drug Abuse Patient Records regulations: The Federal rules restrict any use of the information to criminally investigate or prosecute any alcohol or drug abuse patient.[facility] ColumbusIn the event this information is protected by the Federal Confidentiality of Alcohol and Drug Abuse Patient Records regulations: The Federal rules restrict any use of the information to criminally investigate or prosecute any alcohol or drug abuse patient.[facility] ColumbusIn the event this information is protected by the Federal Confidentiality of Alcohol and Drug Abuse Patient Records regulations: The Federal rules restrict any use of the information to criminally investigate or prosecute any alcohol or drug abuse patient.[facility] ColumbusIn the event this information is protected by the Federal Confidentiality of Alcohol and Drug Abuse Patient Records regulations: The Federal rules restrict any use of the information to criminally investigate or prosecute any alcohol or drug abuse patient.[facility] ColumbusIn the event this information is protected by the Federal Confidentiality of Alcohol and Drug Abuse Patient Records regulations: The Federal rules restrict any use of the information to criminally investigate or prosecute any alcohol or drug abuse patient.[facility] ColumbusIn the event this information is protected by the Federal Confidentiality of Alcohol and Drug Abuse Patient Records regulations: The Federal rules restrict any use of the information to criminally investigate or prosecute any alcohol or drug abuse patient.[facility] ColumbusIn the event this information is protected by the Federal Confidentiality of Alcohol and Drug Abuse Patient Records regulations: The Federal rules restrict any use of the information to criminally investigate or prosecute any alcohol or drug abuse patient.[facility] ColumbusIn the event this information is protected by the Federal Confidentiality of Alcohol and Drug Abuse Patient Records regulations: The Federal rules restrict any use of the information to criminally investigate or prosecute any alcohol or drug abuse patient.[facility] ColumbusIn the event this information is protected by the Federal Confidentiality of Alcohol and Drug Abuse Patient Records regulations: The Federal rules restrict any use of the information to criminally investigate or prosecute any alcohol or drug abuse patient.[facility] ColumbusIn the event this information is protected by the Federal Confidentiality of Alcohol and Drug Abuse Patient Records regulations: The Federal rules restrict any use of the information to criminally investigate or prosecute any alcohol or drug abuse patient.[facility] ColumbusIn the event this information is protected by the Federal Confidentiality of Alcohol and Drug Abuse Patient Records regulations: The Federal rules restrict any use of the information to criminally investigate or prosecute any alcohol or drug abuse patient.[facility] ColumbusIn the event this information is protected by the Federal Confidentiality of Alcohol and Drug Abuse Patient Records regulations: The Federal rules restrict any use of the information to criminally investigate or prosecute any alcohol or drug abuse patient.[facility] Reason for Visit (unrecogniz ed section and content) Reason Comments Refill Request Reason Comments CARD Follow Up 6 Month Reason Comments Sleep Apnea Specialty Diagnoses / Procedures Referred By Contac t Referred To Contact Diagnoses Obstructive sleep apnea syndrome Procedures CONSULT TO SLEEP MEDICINE - ADULT OFFICE/OUTPATIENT [facility] 60-74 MINUTES Chalo Pritchard, [address] [place] [address] Referral ID Status Reason Start Date Expiration Date V isits Requested Visits Authorized [id number] Closed PCP Requested Referral 09/04/2021 09/04/2022 1 1 Reason Comments Appointment Reason Comments Appointment Cancelled Reason Comments CARD Follow Up 3 Month Reason Comments CARD Follow Up 6 Month Reason Comments Diabetes Specialty Diagnoses / Procedures Referred By Contac t Referred To Contact Diagnoses Hyperlipidemia associated with type 2 diabetes mellitus (HCC) Class 1 obesity due to excess calories with serious comorbidity and body mass index (BMI) of 32.0 to 32.9 in adult Procedures ENDOCRINE MEDICAL WEIGHT MANAGEMENT OFFICE/OUTPATIENT [facility] 60-74 MINUTES Chalo Pritchard DO [address] [place] [address] Referral ID Status Reason Start Date Expiration Date V isits Requested Visits Authorized [id number] Closed PCP Requested Referral 06/11/2022 06/11/2023 1 1 Reason Comments Follow Up Reason Comments Patient Assistance Omid Nordisk- Ozempi c Reason Comments Diabetes Reason Comments PAP Therapy Follow Up Reason Comments CARD Follow Up 6 Month Reason Comments Patient Assistance Omid Nordisk- Ozempi c 2mg (medication increase) Reason Comments Radiology NM Specialty Diagnoses / Procedures Referred By Darnell t Referred To Contact MOLECULAR & FUNCTIONAL IMAGING Diagnoses Chest discomfort Procedures NM CARDIAC PERF STRESS/PHARM MYOCARDIAL SPECT MULTIPLE STUDIES Chalo Pritchard DO [address] [place] [address] Molecular & Functional Imaging [address] [place] [address] Referral ID Status Reason Start Date Expiration Date V isits Requested Visits Authorized [id number] Closed Auto-Generate d Referral 09/04/2021 10/04/2022 1 1 Reason Comments Forms [facility] - Written Order for diabetic testing supplies Reason Comments Hospital Follow Up Reason Comments Forms Diabetic supplies - [facility] Reason Comments Patient Assistance Omid Nordisk- Ozempi c 2mg (increase for new rx for 2023) Reason Comments OZEMPIC RECEIVED Reason Comments Forms [facility] - Phsician' s Written Order Reason Onset Date Comments Refill Request 05/16/2023 Reason Comments Newly Diagnosed HRfEF Reason Comments New Patient Reason Onset Date Comments CARD Hospital Follow Up 07/01/2023 Reason Comments Cardiology Follow Up Reason Comments Establish Care 6 weeks follow up Reason Comments Established Patient Reason Comments Medication Problem Jardiance Reason Comments Patient Assistance Reason Comments Forms [facility] - OV note Reason Comments Patient Update Reason Comments Cardiology Follow Up Reason Comments Consult Specialty Diagnoses / Procedures Referred By Contac t Referred To Contact Nephrology Diagnoses Acute kidney injury (HCC) Procedures CONSULT TO NEPHROLOGY OFFICE/OUTPATIENT NEW HIGH MDM 60 MINUTES Myesha Cheng PA-C [address] [place] [address] Referral ID Status Reason Start Date Expiration Date V isits Requested Visits Authorized [id number] Closed PCP Requested Referral 07/01/2023 06/30/2024 1 1 Reason Comments Cardiology Follow Up X 4 months Reason Onset Date Comments Refill Request 11/10/2023 Care Teams (unrecognized sec tion and content) Lithographing Machine Operator Relationship Specialty Start Date End Date Aure Little, PHARM TECH [address] [place] [address] PCP - General Family Practice 01/08/20 Lithographing Machine Operator Relationship Specialty Start Date End Date Aure Little, PHARM TECH [address] [place] [address] PCP - General Family Practice 01/08/20 Lithographing Machine Operator Relationship Specialty Start Date End Date [facility] [address] [place] [address] PCP - General Family Practice 01/08/20 Lithographing Machine Operator Relationship Specialty Start Date End Date [facility] PHARM TECH [address] [place] [address] PCP - General Family Practice 01/08/20 Lithographing Machine Operator Relationship Specialty Start Date End Date [facility] [address] [place] [address] PCP - General Family Practice 01/08/20 Lithographing Machine Operator Relationship Specialty Start Date End Date Aure Little, PHARM TECH [address] [place] [address] PCP - General Family Practice 01/08/20 Lithographing Machine Operator Relationship Specialty Start Date End Date Aure Little, PHARM TECH [address] [place] [address] PCP - General Family Practice 01/08/20 Lithographing Machine Operator Relationship Specialty Start Date End Date Aure Little, PHARM TECH [address] [place] [address] PCP - General Family Medicine 01/08/20 Lithographing Machine Operator Relationship Specialty Start Date End Date Aure Little, PHARM TECH [address] [place] [address] PCP - General Family Medicine 01/08/20 Lithographing Machine Operator Relationship Specialty Start Date End Date Aure Little, PHARM TECH [address] [place] [address] PCP - General Family Medicine 01/08/20 Lithographing Machine Operator Relationship Specialty Start Date End Date Aure Little, PHARM TECH [address] [place] [address] PCP - General Family Medicine 01/08/20 Lithographing Machine Operator Relationship Specialty Start Date End Date Aure Little, PHARM TECH [address] [place] [address] PCP - General Family Medicine 01/08/20 Lithographing Machine Operator Relationship Specialty Start Date End Date Aure Little, PHARM TECH [address] [place] [address] PCP - General Family Medicine 01/08/20 Lithographing Machine Operator Relationship Specialty Start Date End Date Aure Little, PHARM TECH [address] [place] [address] PCP - General Family Medicine 01/08/20 Lithographing Machine Operator Relationship Specialty Start Date End Date Aure Little, PHARM TECH [address] [place] [address] PCP - General Family Medicine 01/08/20 Lithographing Machine Operator Relationship Specialty Start Date End Date Aure Little CNP [address] [place] [address] PCP - General Family Medicine 01/08/20 Lithographing Machine Operator Relationship Specialty Start Date End Date Aure Little CNP [address] [place] [address] PCP - General Family Medicine 01/08/20 Lithographing Machine Operator Relationship Specialty Start Date End Date Aure Little CNP [address] [place] [address] PCP - General Family Medicine 01/08/20 Lithographing Machine Operator Relationship Specialty Start Date End Date Aure Little CNP [address] [place] [address] PCP - General Family Medicine 01/08/20 Lithographing Machine Operator Relationship Specialty Start Date End Date Aure Little CNP [address] [place] [address] PCP - General Family Medicine 01/08/20 Lithographing Machine Operator Relationship Specialty Start Date End Date Aure Little CNP [address] [place] [address] PCP - General Family Medicine 01/08/20 Lithographing Machine Operator Relationship Specialty Start Date End Date Aure Little CNP [address] [place] [address] PCP - General Family Medicine 01/08/20 Lithographing Machine Operator Relationship Specialty Start Date End Date Aure Little CNP [address] [place] [address] PCP - General Family Medicine 01/08/20 Lithographing Machine Operator Relationship Specialty Start Date End Date Aure Little CNP [address] [place] [address] PCP - General Family Medicine 01/08/20 Lithographing Machine Operator Relationship Specialty Start Date End Date Aure Little CNP [address] [place] [address] PCP - General Family Medicine 01/08/20 Lithographing Machine Operator Relationship Specialty Start Date End Date Aure Little CNP [address] [place] [address] PCP - General Family Medicine 01/08/20 Lithographing Machine Operator Relationship Specialty Start Date End Date Aure Little CNP [address] [place] [address] PCP - General Family Medicine 01/08/20 Lithographing Machine Operator Relationship Specialty Start Date End Date Aure Little CNP [address] [place] [address] PCP - General Family Medicine 01/08/20 Lithographing Machine Operator Relationship Specialty Start Date End Date Aure Little CNP [address] [place] [address] PCP - General Family Medicine 01/08/20 Lithographing Machine Operator Relationship Specialty Start Date End Date Aure Little CNP [address] [place] [address] PCP - General Family Medicine 01/08/20 Lithographing Machine Operator Relationship Specialty Start Date End Date Aure Little [facility] [address] [place] [address] PCP - General Nurse Practitioner 05/13/17 Lithographing Machine Operator Relationship Specialty Start Date End Date Aure Little [facility] [address] [place] [address] PCP - General Nurse Practitioner 05/13/17 Lithographing Machine Operator Relationship Specialty Start Date End Date Aure Little [facility] [address] [place] [address] PCP - General Nurse Practitioner 05/13/17 Lithographing Machine Operator Relationship Specialty Start Date End Date Aure Little [facility] [address] [place] [address] PCP - General Nurse Practitioner 05/13/17 Lithographing Machine Operator Relationship Specialty Start Date End Date Aure Little [facility] [address] [place] [address] PCP - General Nurse Practitioner 05/13/17 Lithographing Machine Operator Relationship Specialty Start Date End Date [facility] [address] [place] [address] PCP - General Nurse Practitioner 05/13/17 Lithographing Machine Operator Relationship Specialty Start Date End Date Aure Little [facility] [address] [place] [address] PCP - General Nurse Practitioner 05/13/17 Lithographing Machine Operator Relationship Specialty Start Date End Date Aure Little DOG LICENSE [facility] [address] [place] [address] PCP - General Nurse Practitioner 05/13/17 Lithographing Machine Operator Relationship Specialty Start Date End Date Aure Little DOG LICENSE [facility] [address] [place] [address] PCP - General Nurse Practitioner 05/13/17 Lithographing Machine Operator Relationship Specialty Start Date End Date Aure Little DOG LICENSE [facility] [address] [place] [address] PCP - General Nurse Practitioner 05/13/17 Lithographing Machine Operator Relationship Specialty Start Date End Date Aure Little DOG LICENSE [facility] [address] [place] [address] PCP - General Nurse Practitioner 05/13/17 Lithographing Machine Operator Relationship Specialty Start Date End Date Aure Little [facility] [address] [place] [address] PCP - General Nurse Practitioner 05/13/17 Lithographing Machine Operator Relationship Specialty Start Date End Date Arturo Craft MD PCP - General Family Medicine 11/13/22 Aure Little, CUT OUT MARKER [address] [place] [address] Nurse Practitioner Family Medicine 11/13/22 Lithographing Machine Operator Relationship Specialty Start Date End Date Aure Little, DOG LICENSE OFFICER SUPERVISOR-PHARM TECH [address] [place] [address] PCP - General Nurse Practitioner 05/13/17 Lithographing Machine Operator Relationship Specialty Start Date End Date Aure Little CNP [address] [place] [address] PCP - General Family Medicine 01/08/20 Lithographing Machine Operator Relationship Specialty Start Date End Date Aure Little CNP [address] [place] [address] PCP - General Family Medicine 01/08/20 Lithographing Machine Operator Relationship Specialty Start Date End Date Aure Little CNP [address] [place] [address] PCP - General Family Medicine 01/08/20 Lithographing Machine Operator Relationship Specialty Start Date End Date Aure Little CNP [address] [place] [address] PCP - General Family Medicine 01/08/20 Lithographing Machine Operator Relationship Specialty Start Date End Date Aure Little CNP [address] [place] [address] PCP - General Family Medicine 01/08/20 Lithographing Machine Operator Relationship Specialty Start Date End Date Aure Little CNP [address] [place] [address] PCP - General Family Medicine 01/08/20 Lithographing Machine Operator Relationship Specialty Start Date End Date Aure Little, DOG LICENSE OFFICER SUPERVISOR-PHARM TECH [address] [place] [address] PCP - General Nurse Practitioner 05/13/17 Lithographing Machine Operator Relationship Specialty Start Date End Date Aure Little DOG LICENSE OFFICER SUPERVISOR-PHARM TECH [address] [place] [address] PCP - General Nurse Practitioner 05/13/17 Lithographing Machine Operator Relationship Specialty Start Date End Date Aure Little CNP [address] [place] [address] PCP - General Family Medicine 01/08/20 Lithographing Machine Operator Relationship Specialty Start Date End Date Aure Little DOG LICENSE OFFICER SUPERVISOR-PHARM TECH [address] [place] [address] PCP - General Nurse Practitioner 05/13/17 Lithographing Machine Operator Relationship Specialty Start Date End Date Aure Little PHARM TECH [address] [place] [address] PCP - General Family Medicine 01/08/20 Lithographing Machine Operator Relationship Specialty Start Date End Date Aure Little PHARM TECH [address] [place] [address] PCP - General Family Medicine 01/08/20 Lithographing Machine Operator Relationship Specialty Start Date End Date Aure Little APRN-PHARM TECH [address] [place] [address] PCP - General Nurse Practitioner 05/13/17 Lithographing Machine Operator Relationship Specialty Start Date End Date Aure Little APRN-PHARM TECH [address] [place] [address] PCP - General Nurse Practitioner 05/13/17 Lithographing Machine Operator Relationship Specialty Start Date End Date Aure Little CNP [address] [place] [address] PCP - General Family Medicine 01/08/20 Lithographing Machine Operator Relationship Specialty Start Date End Date Aure Little PHARM TECH [address] [place] [address] PCP - General Family Medicine 01/08/20 Lithographing Machine Operator Relationship Specialty Start Date End Date Aure Littel PHARM TECH [address] [place] [address] PCP - General Family Medicine 01/08/20 Lithographing Machine Operator Relationship Specialty Start Date End Date Aure Little CNP [address] [place] [address] PCP - General Family Medicine 01/08/20 Lithographing Machine Operator Relationship Specialty Start Date End Date Aure Little CNP [address] [place] [address] PCP - General Family Medicine 01/08/20 Lithographing Machine Operator Relationship Specialty Start Date End Date Aure Little CNP [address] [place] [address] PCP - General Family Medicine 01/08/20 Lithographing Machine Operator Relationship Specialty Start Date End Date Aure Little CNP [address] [place] [address] PCP - General Family Medicine 01/08/20 Lithographing Machine Operator Relationship Specialty Start Date End Date Aure Little CNP [address] [place] [address] PCP - General Family Medicine 01/08/20 Lithographing Machine Operator Relationship Specialty Start Date End Date Aure Little PHARM TECH [address] [place] [address] PCP - General Family Medicine 01/08/20 Lithographing Machine Operator Relationship Specialty Start Date End Date Aure Little PHARM TECH [address] [place] [address] PCP - General Family Medicine 01/08/20 Lithographing Machine Operator Relationship Specialty Start Date End Date ToyaAure minor GUALBERTO David [address] [place] [address] PCP - General Family Medicine 01/08/20 Inactive Administered Medications - up to 3 most recent administrations Administered Medications (un recognized section and content) Medication Order MAR Action Action Date Dose Rate Site perflutren lipid microspheres 1.3 mL in NaCl (PF) 0.9% 10 mL injection (DEFINITY) INTRAVENOUS, DIRECTED NEEDED, 1 dose, Starting on Sue 06/11/22 at 1127, Until Tu05/25/23 at 1134, Per-Protocol - for use during ECHO procedure only, If no IV access, insert saline lock prior to administering contrast. Discontinue saline lock post exam. It patient has central line or IVAD, may access for administering according to line specific nursing protocol. Once exam is complete, flush line and de-access per line specific nursing protocol. Dilute 1.3 mL of Definity with 8.7 mL of preservative-free saline. Given 05/25/2023 11:34 AM EST 3 mL Hand, Right Inactive Administered Medications - up to 3 most recent administrations Medication Order MAR Action Action Date Dose Rate Site furosemide 40 mg injection (LASIX) 40 mg, INTRAVENOUS, ONCE, 1 dose, On Wed05/31/23 at 1700 Given 05/31/2023 4:55 PM EST 40 mg sodium chloride 0.9 % (flush) 10 mL (BD POSIFLUSH) 10 mL, INTRAVENOUS, DIRECTED NEEDED, 1 dose, Starting on Sue 06/11/22 at 1127, Until Wed05/31/23 at 1700, Per-Protocol - for use during ECHO procedure only, If no IV access, insert saline lock prior to administering contrast. Discontinue saline lock post exam. If patient has central line or IVAD, may access for administering according to line specific nursing protocol. Once exam is complete, flush line and de-access per line specific nursing protocol. Given 05/31/2023 5:00 PM EST 10 mL FOR RECORDS PERTAINING TO PATIENTS WHO ARE OR HAVE BEEN ENROLLED IN A CHEMICAL DEPENDENCY/SUBSTANCEABUSE PROGRAM, SOME INFORMATION MAY BE OMITTED. This clinical summary was aggregated from multiple sources. Caution should be exercised in using it in the provision of clinical care. This summary normalizes information from multiple sources, and as a consequence, information in this document may materially change the coding, format and clinical context of patient data. In addition, data may be omitted in some cases. CLINICAL DECISIONS SHOULD BE BASED ON THE PRIMARY CLINICAL RECORDS. [facility] [employer] [facility]. provides no warranty or guarantee of the accuracy or completeness of information in this document.
== END 2023-11-29 12:36 | disposition home or self-care (01) ==
LOC: PST 12:36
PROVIDERS: PCP Nurse Practitioner; Visit Provider Surgery
DX: Z01.818 Encounter for other preprocedural examination (principal); R93.3 Abnormal findings on diagnostic imaging of other parts of digestive tract; R10.12 Left upper quadrant pain

== ENCOUNTER 2024-08-15 01:55 | Emergency (ER) | payer MEDICARE, OTHER, SELFPAY ==
[2024-08-15 01:58] VITALS: BP 189/111; PULSE 85; TEMP 36.4; O2SAT 98; BMI 25.0
[2024-08-15 02:22] LABS: Basophils Absolute Auto 0.1 10^3/uL (0.0-0.1); Basophils Percent Auto 0.7 % (0.2-2.0); Eosinophils Absolute Auto 0.1 10^3/uL (0.0-0.7); Eosinophils Percent Auto 1.4 % (0.9-7.0); Hemoglobin 12.6 g/dL (12.0-16.0); Immature Granulocytes Abs Auto 0.03 10^3/uL (0.00-0.03); Immature Granulocytes Pct Auto 0.3 % (0.0-0.5); Lymphocytes Absolute Auto 3.4 10^3/uL (1.2-3.8); Lymphocytes Percent Auto 35.1 % (20.5-60.0); Mean Corpuscular HGB Conc 32.3 g/dL (29.9-35.2); Mean Corpuscular Hemoglobin 29.9 pg (26.7-34.0); Mean Corpuscular Volume 92.6 fL (81.0-99.0); Monocytes Absolute Auto 0.9 10^3/uL (0.3-0.8); Monocytes Percent Auto 8.7 % (1.7-12.0); Neutrophils Absolute Auto 5.2 10^3/uL (1.4-6.5); Neutrophils Percent Auto 53.8 % (43.0-75.0); Platelet Count 176 10^3/uL (150-450); Red Blood Count 4.21 10^6/uL (4.20-5.40); Red Cell Distribution Width 14.3 % (11.0-15.0); White Blood Count 9.8 10^3/uL (4.0-11.0)
--- NOTE | 2024-08-15 02:24 | ED.FEMALEGU1 ---
HPI - Female Genitourinary General Chief complaint: Urogenital-Female Stated complaint: FLANK PAIN Time Seen by Provider: 08/15/24 02:20 Source: patient Mode of arrival: walk-in Limitations: no limitations History of Present Illness HPI Narrative: left CVA burning pain for 4 days. constant pain. neg urinary symptoms. neg fever. No respiratory symptoms. Related Data Home Medications ?Medication ?Instructions ?Recorded ?Confirmed allopurinol 100 mg tablet 100 mg PO DAILY 02/14/23 08/15/24 aspirin 81 mg tablet,delayed 81 mg PO BEDTIME 02/14/23 08/15/24 release magnesium oxide 400 mg PO BID 02/14/23 08/15/24 rosuvastatin 40 mg tablet 40 mg PO BEDTIME 02/14/23 08/15/24 semaglutide 1 mg/dose (2 mg/1.5 1 mg subcut QWEEK 02/14/23 11/29/23 mL) subcutaneous pen injector clopidogrel 75 mg tablet 75 mg PO DAILY 11/17/23 08/15/24 empagliflozin 10 mg tablet 10 mg PO DAILY 11/17/23 08/15/24 (Jardiance) metoprolol succinate 25 mg 50 mg PO Q12H 11/17/23 08/15/24 tablet,extended release 24 hr valsartan 40 mg tablet 20 mg PO DAILY 11/17/23 08/15/24 ergocalciferol (vitamin D2) 1,250 08/15/24 mcg (50,000 unit) capsule spironolactone 100 mg tablet 100 mg PO DAILY 08/15/24 08/15/24 spironolactone 25 mg tablet 25 mg PO DAILY 08/15/24 08/15/24 Allergies Allergy/AdvReac Type Severity Reaction Status Date / Time Penicillins Allergy Intermediate Unknown Verified 08/15/24 02:07 Iodinated Contrast Media Allergy throat Verified 08/15/24 02:07 itching Review of Systems ROS Status of ROS 10 or more systems reviewed and unremarkable except as noted in history and below [facility] Medical History (Updated 08/15/24 @ 06:10 by Deyvi Flores MD) Congestive heart failure ?I50.9 - Heart failure, unspecified (ICD-10) Pacemaker ?Z95.0 - Presence of cardiac pacemaker (ICD-10) Cardiac defibrillator in place ?Z95.810 - Presence of automatic (implantable) cardiac defibrillator (ICD-10) TMJ (dislocation of temporomandibular joint) ?S03.00XA - Dislocation of jaw, unspecified side, initial encounter (ICD-10) Peripheral vascular disease ?I73.9 - Peripheral vascular disease, unspecified (ICD-10) Osteoarthritis ?M19.90 - Unspecified osteoarthritis, unspecified site (ICD-10) Lumbar disc disease ?M51.9 - Unspecified thoracic, thoracolumbar and lumbosacral intervertebral disc disorder (ICD-10) Low back pain ?M54.50 - Low back pain, unspecified (ICD-10) Chronic pain ?G89.29 - Other chronic pain (ICD-10) Left lower quadrant pain ?R10.32 - Left lower quadrant pain (ICD-10) Abnormal abdominal CT scan ?R93.5 - Abnormal findings on diagnostic imaging of other abdominal regions, including retroperitoneum (ICD-10) Leukocytosis ?D72.829 - Elevated white blood cell count, unspecified (ICD-10) HLD (hyperlipidemia) ?E78.5 - Hyperlipidemia, unspecified (ICD-10) Type 2 diabetes mellitus ?E11.9 - Type 2 diabetes mellitus without complications (ICD-10) Acute exacerbation of CHF (congestive heart failure) ?I50.9 - Heart failure, unspecified (ICD-10) Surgical History (Updated 11/29/23 @ 12:56 by Berta Perez NP) History of femoropopliteal bypass ?Z98.890 - Other specified postprocedural states (ICD-10) History of heart artery stent ?Z95.5 - Presence of coronary angioplasty implant and graft (ICD-10) History of cardiac defibrillator placement ?Z95.810 - Presence of automatic (implantable) cardiac defibrillator (ICD-10) History of tonsillectomy ?Z90.89 - Acquired absence of other organs (ICD-10) History of tubal ligation ?Z98.51 - Tubal ligation status (ICD-10) S/P epidural steroid injection ?Z92.241 - Personal history of systemic steroid therapy (ICD-10) H/O colonoscopy ?Z98.890 - Other specified postprocedural states (ICD-10) History of cholecystectomy ?Z90.49 - Acquired absence of other specified parts of digestive tract (ICD-10) H/O cataract extraction ?Z98.49 - Cataract extraction status, unspecified eye (ICD-10) History of cardiac catheterization ?Z98.890 - Other specified postprocedural states (ICD-10) H/O midurethral sling procedure ?Z98.890 - Other specified postprocedural states (ICD-10) History of appendectomy ?Z90.49 - Acquired absence of other specified parts of digestive tract (ICD-10) Aortic valve replaced ?Z95.2 - Presence of prosthetic heart valve (ICD-10) H/O eye surgery ?Z98.890 - Other specified postprocedural states (ICD-10) H/O: hysterectomy ?Z90.710 - Acquired absence of both cervix and uterus (ICD-10) S/P femoral-femoral bypass surgery ?Z95.828 - Presence of other vascular implants and grafts (ICD-10) Family History (Updated 11/29/23 @ 12:48 by Berta Perez NP) Other Family history of cancer Family history of diabetes mellitus Family history of myocardial infarction Heart disease Social History (Updated 11/29/23 @ 12:41 by Berta Perez NP) Within the past year, how often did you have a drink containing alcohol: monthly or less Within the past year, how many standard drinks containing alcohol did you have on a typical day: 1 or 2 Within the past year, how often did you have six or more drinks on one occasion: never Total score: 0 Score interpretation: A score less than 3 is consistent with normal alcohol consumption. Smoking status: Former smoker Second hand tobacco smoke exposure: Yes Non-prescribed substance use: denies use Highest level of school completed/degree received: some college, no degree Are you now , , , , never or living with a partner: In a typical week, how many times do you talk on the telephone with family, friends, or neighbors: 3 or more times per week How often do you get together with friends or relatives: 3 or more times per week How often do you attend gnosticism or adventist services: 4 or more times per year Do you belong to any clubs or organizations such as gnosticism groups unions, fraternal or athletic groups, or school groups: yes Total score: 4 Score interpretation: A score of greater than or equal to 2 indicates the lowest level of social isolation. Little interest or pleasure in doing things: not at all Feeling down, depressed, or hopeless: not at all Feel stressed/tense/nervous/anxious/difficulty sleeping: only a little Life stressors: other Life stressor details: [employer] Due to disability, difficulty making decisions: No Do you think of yourself as: straight/heterosexual Gender Identity: female Exam Constitutional Vital Signs, click to edit/add: Last Vital Signs Temp 97.6 F 08/15/24 01:58 Pulse 76 08/15/24 04:40 Resp 20 08/15/24 04:40 BP 188/86 H 08/15/24 04:40 Pulse Ox 98 08/15/24 04:40 O2 Del Method Room Air 08/15/24 04:40 Common normals: no apparent distress, average body habitus, oriented x3, no limitations, healthy appearing, alert and well nourished [facility] Common normals: normocephalic and head/scalp atraumatic Eye Common normals: EOMs intact bilaterally and conjunctivae normal Respiratory Common normals: normal respiratory effort, no retractions, no use of accessory muscles and clear to auscultation bilaterally Cardio Common normals: regular rate, regular rhythm, S1 normal heart sound and S2 normal heart sound GI Common normals: Normal to inspection, nondistended, normoactive bowel sounds present, soft to palpation and non-tender Back & Pelvis Common normals: no CVA tenderness Extremity Common normals: normal to inspection and full ROM Neuro Common normals: oriented x3, CN's II-XII intact bilaterally, moves all extremities and no focal motor deficits Psych Appearance: grossly normal Course Vital Signs Vital signs: Vital Signs Temperature 97.6 F 08/15/24 01:58 Pulse Rate 85 08/15/24 01:58 Respiratory Rate 18 08/15/24 01:58 Blood Pressure 189/111 H 08/15/24 01:58 Pulse Oximetry 98 08/15/24 01:58 Oxygen Delivery Method Room Air 08/15/24 01:58 Temperature 97.6 F 08/15/24 01:58 Pulse Rate 76 08/15/24 04:40 Respiratory Rate 20 08/15/24 04:40 Blood Pressure 188/86 H 08/15/24 04:40 Pulse Oximetry 98 08/15/24 04:40 Oxygen Delivery Method Room Air 08/15/24 04:40 MDM - Female Genitourinary MDM Narrative Medical decision making narrative: presents complaining of left sided lower back pain at the superior aspect of the Left CVA. Burning local pain. No injury. No radicular symptoms. No fever or rash. UA without evidence of infection. CT with findings of renal cyst , cirrhosis and constipation but no finding to explain her pain. Pain improved after morphine. Patient informed she may have Pinched nerve causing the burning pain at this site. No rash to support shingles. Discharged home with [place] and advised to follow up with her doctor Lab Data Labs: Lab Results 08/15/24 08/15/24 Range/Units 02:10 05:15 WBC 9.8 (4.0-11.0) 10^3/uL RBC 4.21 (4.20-5.40) 10^6/uL Hgb 12.6 (12.0-16.0) g/dL Hct 39.0 (36.0-48.0) % MCV 92.6 (81.0-99.0) fL MCH 29.9 (26.7-34.0) pg MCHC 32.3 (29.9-35.2) g/dL RDW 14.3 (11.0-15.0) % Plt Count 176 (150-450) 10^3/uL MPV 10.0 (9.5-13.5) fL Neut % (Auto) 53.8 (43.0-75.0) % Lymph % (Auto) 35.1 (20.5-60.0) % [place] % (Auto) 8.7 (1.7-12.0) % Eos % (Auto) 1.4 (0.9-7.0) % Baso % (Auto) 0.7 (0.2-2.0) % Neut # (Auto) 5.2 (1.4-6.5) 10^3/uL Lymph # (Auto) 3.4 (1.2-3.8) 10^3/uL [place] # (Auto) 0.9 H (0.3-0.8) 10^3/uL Eos # (Auto) 0.1 (0.0-0.7) 10^3/uL Baso # (Auto) 0.1 (0.0-0.1) 10^3/uL Abs Immat Gran (auto) 0.03 (0.00-0.03) 10^3/uL Imm/Tot Granulo (auto) 0.3 (0.0-0.5) % Sodium 138 (136-145) mmol/L Potassium 4.7 (3.5-5.1) mmol/L Chloride 105 (98-107) mmol/L Carbon Dioxide 25.4 (21.0-32.0) mmol/L Anion Gap 12.3 BUN 27.0 H (7.0-18.0) mg/dL Creatinine 1.46 H (0.55-1.02) mg/dL Est GFR ( Amer) 42 L (>=60 mL/min/1.73m^2) Est GFR (Non-Af Amer) 35 L (>=60 mL/min/1.73m^2) BUN/Creatinine Ratio 18.5 Glucose 113 H (74-106) mg/dL Calcium 9.2 (8.5-10.1) mg/dL Urine Color Yellow (YELLOW) Urine Clarity Clear (CLEAR) Urine pH 5.5 (5.0-9.0) Ur Specific [place] 1.025 (1.005-1.025) Urine Protein Trace (NEG/TRACE) mg/dL Urine Glucose (UA) >=1000 A (NEGATIVE) mg/dL Urine Ketones Negative (NEGATIVE) mg/dL Urine Occult Blood Negative (NEGATIVE) Urine Nitrite Negative (NEGATIVE) Urine Bilirubin Negative (NEGATIVE) Urine Urobilinogen 0.2 (0.2-1.0) EU/dL Ur Leukocyte Esterase Negative (NEGATIVE) Urine RBC 2-5 A (0-2) #/HPF Urine WBC 2-5 A (NONE SEEN) #/HPF Ur Squamous Epith Cells Few A (NONE/RARE) #/LPF Urine Crystals None seen (None Seen) #/HPF Urine Bacteria None seen (NONE SEEN) #/HPF Urine Casts None seen (NONE SEEN) #/LPF Urine Mucus None seen (NONE SEEN) Urine Yeast Seen A (NONE SEEN) Ur Culture Indicated? No Discharge Plan Discharge Chief Complaint: Urogenital-Female Clinical Impression: Back pain, Cirrhosis of liver Patient Disposition: Home, Self-Care Prescriptions / Home Meds: No Action clopidogrel 75 mg tablet 75 mg PO DAILY Jardiance 10 mg tablet 10 mg PO DAILY metoprolol succinate 25 mg tablet extended release 24 hr 50 mg PO Q12H valsartan 40 mg tablet 20 mg PO DAILY magnesium oxide 400 mg magnesium capsule 400 mg PO BID allopurinol 100 mg tablet 100 mg PO DAILY aspirin 81 mg tablet,delayed release (DR/EC) 81 mg PO BEDTIME rosuvastatin 40 mg tablet 40 mg PO BEDTIME semaglutide 1 mg/dose (2 mg/1.5 mL) pen injector 1 mg subcut QWEEK Rx Instructions: Due Wednesday morning ergocalciferol (vitamin D2) 1,250 mcg (50,000 unit) capsule spironolactone 25 mg tablet 25 mg PO DAILY spironolactone 100 mg tablet 100 mg PO DAILY Print Language: Portuguese Instructions: Cirrhosis of the Liver (ED), Acute Low Back Pain (ED) Additional Instructions: follow up with your doctor for recheck Referrals: Aure Little NP [Primary Care Provider, Family Practice] - 1 week
[2024-08-15 02:32] LABS: Anion Gap 12.3; BUN Creatinine Ratio 18.5; Calcium 9.2 mg/dL (8.5-10.1); Carbon Dioxide 25.4 mmol/L (21.0-32.0); Chloride 105 mmol/L (98-107); Estimated GFR (African America 42 (>=60 mL/min/1.73m^2); Estimated GFR (Non-African Ame 35 (>=60 mL/min/1.73m^2); Glucose 113 mg/dL (74-106); Potassium 4.7 mmol/L (3.5-5.1); Sodium 138 mmol/L (136-145)
[2024-08-15] MEDS: 0.9 % SODIUM CHLORIDE 1,000 ML 1000 ML IV (02:46)
[2024-08-15] MEDS: KETOROLAC TROMETHAMINE 30 MG/ML VIAL 15 MG IVP (02:46)
[2024-08-15] MEDS: MORPHINE SULFATE 4 MG/ML VIAL IV (03:49)
[2024-08-15 03:56] VITALS: BP 188/86; PULSE 76; O2SAT 100
[2024-08-15 04:40] VITALS: BP 188/86; PULSE 76; O2SAT 98
[2024-08-15 05:24] LABS: Bilirubin Urine NEGATIVE (NEGATIVE); Blood Urine NEGATIVE (NEGATIVE); Clarity Urine CLEAR (CLEAR); Color Urine YELLOW (YELLOW); Glucose Urine UA >=1000 mg/dL (NEGATIVE); Ketones Urine NEGATIVE (NEGATIVE); Leukocyte Esterase Urine NEGATIVE (NEGATIVE); Nitrite Urine NEGATIVE (NEGATIVE); Protein Urine TRACE mg/dL (NEG/TRACE); Specific Gravity Urine 1.025 (1.005-1.025); Urine Microscopic Indicated YES; Urobilinogen Urine 0.2 EU/dL (0.2-1.0); pH Urine 5.5 (5.0-9.0)
[2024-08-15 05:40] LABS: Bacteria Urine NONE SEEN #/HPF (NONE SEEN); Cast Seen? NONE SEEN #/LPF (NONE SEEN); Crystals Seen? None Seen #/HPF (None Seen); Mucus Urine NONE SEEN (NONE SEEN); Squamous Epithelial Cell Urine FEW #/LPF (NONE/RARE); Urine Culture Indicated NO
[2024-08-15] MEDS: HYDROCODONE/ACET 5-325 MG TABLET 2 TAB PO (06:21)
[2024-08-15 06:44] VITALS: BP 180/75; PULSE 71; O2SAT 99
== END 2024-08-15 06:20 | disposition home or self-care (01) ==
PROVIDERS: Emergency Provider Internal Medicine; PCP Nurse Practitioner
DX: M54.9 Dorsalgia, unspecified (principal); K74.60 Unspecified cirrhosis of liver; Z95.5 Presence of coronary angioplasty implant and graft; Z95.810 Presence of automatic (implantable) cardiac defibrillator; Z98.51 Tubal ligation status; Z90.49 Acquired absence of other specified parts of digestive tract; Z95.2 Presence of prosthetic heart valve; Z90.710 Acquired absence of both cervix and uterus; Z95.828 Presence of other vascular implants and grafts; Z87.891 Personal history of nicotine dependence
CPT/HCPCS: 36415; 71045; 74176; 80048; 81001; 85025; 96374; 96375; 99285; J1885; J2270

== ENCOUNTER 2024-08-22 07:01 | Outpatient (OUT) | payer MEDICARE, OTHER, SELFPAY ==
--- NOTE | 2024-08-22 | US_ITS ---
The [address] [address] Patient Name: WILBER ELIAS MRN: [id number] date: 1945 Sex: F Assigned Patient Location: [place] Current Patient Location: [place] Accession/Order Number: [id number] Exam Date: 08/22/2024 10:18 Report Date: 08/22/2024 10:31 At the request of: RADHA JAIN NP Procedure: US right upper quadrant LIMITED RIGHT UPPER QUADRANT ABDOMINAL ULTRASOUND - liver CLINICAL HISTORY: OTHER CIRRHOSIS OF LIVER K74.69. Prior Cholecystectomy. COMPARISON: CT 08/15/2024 The gallbladder is surgically absent. No intra- hepatic biliary dilatation is evident. The common duct is borderline prominent measuring 6 mm. This may be related to previous surgery. The liver has a slightly nodular contour. Echogenicity is slightly heterogeneous however no focal intrahepatic masses are seen. There is appropriate hepatopetal flow within the main portal vein. The pancreas shows no significant sonographic abnormality. Cursory evaluation of the right kidney reveals no hydronephrosis or fluid within Sotelo's pouch. There is an incidental right upper pole renal cyst measuring 4.9 x 3.1 x 4.9 cm. US/US right upper quadrant IMPRESSION: CIRRHOTIC APPEARING LIVER. BORDERLINE PROMINENT COMMON DUCT, LIKELY SECONDARY TO PRIOR CHOLECYSTECTOMY. INCIDENTAL RIGHT RENAL CYST. Impression dictated by: Aria Nicholas M.D. 08/22/2024 10:31 AM Dictation Location: [place] [address] Electronically authenticated by: [id number] Y Date: 08/22/2024 10:31
--- OUTSIDE RECORDS SUMMARY | 2024-08-22 07:06 | XMS_ITS | CCD ---
Author Organization [facility] Care Team Providers Care Wood Buffer Name Role Phone PHYSICIAN, DEFAULT Unavailable Unavailable PHYSICIAN, DEFAULT Unavailable Unavailable AICHHOLZ, INTERNET MANAGER RADHA Admitting Unavailable AICHHOLZ, INTERNET MANAGER RADHA Attending Unavailable AICHHOLZ, INTERNET MANAGER RADHA Primary Care Unavailable AICHHOLZ, INTERNET MANAGER RADHA Consulting Unavailable AICHHOLZ, INTERNET MANAGER RADHA Admitting Unavailable AICHHOLZ, INTERNET MANAGER RADHA Attending Unavailable AICHHOLZ, INTERNET MANAGER RADHA Primary Care Unavailable AICHHOLZ, INTERNET MANAGER RADHA Consulting Unavailable AICHHOLZ, INTERNET MANAGER RADHA Admitting Unavailable AICHHOLZ, INTERNET MANAGER RADHA Attending Unavailable AICHHOLZ, INTERNET MANAGER RADHA Primary Care Unavailable AICHHOLZ, INTERNET MANAGER RADHA Consulting Unavailable Aichholz Radha BURCIAGA Primary Care Provider AichRadha cabrales CNP Primary Care Provider AichholRadha brown CNP Primary Care Provider AicRadha minor CNP Primary Care Provider RADHA LITTLE. Primary Care Unavailable Arturo Craft MD Primary Care Provider [phone] Aichholz EMERGING TECHNOLOGIES DIRECTOR, Radha Unavailable MAHSA CHRISTENSEN Attending Unavailable MAHSA CHRISTENSEN Admitting Unavailable RADHA LITTLE Primary Care Unavailable RADHA LITTLE Primary Care Unavailable GILLES REDMAN Attending Unava ilable GILLES REDMAN Admitting Unava ilable Aichholz Radha BURCIAGA Primary Care Provider [phone] RADHA LITTLE Referring Unavailable AICHHOLZ, RADHA J Primary Care Unavailable BATSHEVA HATFIELD Attending Unavailable AICHHOLZ, RADHA J Referring Unavailable AICHHOLZ, RADHA J Primary Care Unavailable PARAS RAMIREZ Attending Unavailable AICHHOLZ, RADHA MELISSA Primary Care Unavailable GEOVANNY CHÁVEZ Admitting Unavailable AICHHOLZ, RADHA MELISSA Primary Care Unavailable FAISAL, JANNY Referring Unavailable FAISAL, JANNY Referring Unavailable AICHHOLZ, RADHA MELISSA Primary Care Unavailable Venancio DE LA TORRE, Arturo Primary Care Provider Aichholz EMERGING TECHNOLOGIES DIRECTOR, Radha Unavailable AICMOE, RADHA Attending Unavailable AICHHOLZILANAA Attending Unavailable CRISTOBAL RADHA Attending Unavailable ROCIO MOSS Attending Unavailable CRISTOBAL, RADHA Referring Unavailable ROCIO MOSS Referring Unavailable TIMMY CASAREZ Attending Unavailable ROCIO MOSS Referring Unavailable TIMMY CASAREZ Attending Unavailable TIMMY CASAREZ Attending Unavailable ROCIO MOSS Referring Unavailable TIMMY CASAREZ Attending Unavailable ROCIO MOSS Referring Unavailable TIMMY CASAREZ Attending Unavailable ORCIO MOSS Referring Unavailable AICHHOLZ, RADHA J Referring Unavailable AICHHOLZ, RADHA J Primary Care Unavailable SHEILA LITTLE Attending Unavailable SHEILA LITTLE Referring Unavailable AICHHOLZ, RADHA J Primary Care Unavailable YARELIS YEH Attending Unavailable AICHHOLZ, RADHA J Primary Care Unavailable AICHHOLZ, RADHA J Referring Unavailable AICHHOLZ, RADHA J Primary Care Unavailable AICHHOLZ, RADHA J Referring Unavailable AICHHOLZ, RADHA J Primary Care Unavailable SHEILA LITTLE Admitting Unavailable SHEILA LITTLE Attending Unavailable AICHHOLZ, RADHA J Primary Care Unavailable AICHHOLZ, RADHA J Referring Unavailable AICHHOLZ, RADHA J Primary Care Unavailable CHALO PATEL Referring Unavailable AICHHOLZ, RADHA MELISSA Primary Care Unavailable CHALO PATEL Referring Unavailable AICHHOLZ, RADHA MELISSA Primary Care Unavailable AICHHOLZ, RADHA MELISSA Referring Unavailable AICHHOLZ, RADHA MELISSA Primary Care Unavailable STANLEY STRANGE Attending Unavailable CHALO PATEL Attending Unavailable AICHHOLZ, RADHA MELISSA Primary Care Unavailable AICHHOLZ, RADHA MELISSA Primary Care Unavailable CONCHA PARIS Attending UnavailNIRAJ Mendez Referring Unavailable AICHHOLZ, RADHA MELISSA Primary Care Unavailable GILLES REDMAN Attending Tristan ilable KAKA, YAQUTA Referring Unavailable AICHHOLZ, RADHA MELISSA Primary Care Unavailable KAKA, YAQUTA Referring Unavailable KAKA, YAQUTA Attending Unavailable AICHHOLZ, RADHA MELISSA Primary Care Unavailable AICHHOLZ, RADHA MELISSA Referring Unavailable CONCHA PARIS Referring Unavailabl e AICHHOLZ, RADHA MELISSA Primary Care Unavailable CHALO PATEL Attending Unavailable AICHHOLZ, RADHA MELISSA Primary Care Unavailable AICHHOLZ, RADHA MELISSA Primary Care Unavailable AICHHOLZ, RADHA MELISSA Primary Care Unavailable KAKA, YAQUTA Referring Unavailable AICHHOLZ, RADHA MELISSA Primary Care Unavailable CONCHA PARIS Attending Unavailabl e AICHHOLZ, RADHA MELISSA Primary Care Unavailable MIKEL BARAHONA Attending Unavailable AICHHOLZ, RADHA MELISSA Primary Care Unavailable JANNY JAY Referring Unavailable AICHHOLZ, RADHA MELISSA Primary Care Unavailable ROSSY ARROYO Attending Unavail able AICHHOLZ, RADHA MELISSA Primary Care Unavailable AICHHOLZ, RADHA MELISSA Primary Care Unavailable KAKA, YAQUTA Referring Unavailable AICHHOLZ, RADHA MELISSA Primary Care Unavailable Allergies Allergy Classification Reported Allergen(s) Allergy Type Date of Onset Reaction(s) Facility Penicillins (antibiotic) (1 source) Penicillins Drug Allergy 5 Anaphylaxis, [facility] (1 source) Iodine (And Iodine Containting Drugs) Drug allergy (disorder) 7 [facility] (7 sources) Penicillins; Translations: [PENICILLINS] Drug allergy (disorder) 5 Anaphylaxis, Hives [facility] (20 sources) Contrast media; Translations: [DYE] Drug Allergy 7 Itching [facility] (4 sources) Penicillins Drug Allergy 5 Anaphylaxis, [facility] (20 sources) Iodinated Contrast Media; Translations: [IODINATED CONTRAST MEDIA] Drug Allergy 9 Other: See Comments [facility] (20 sources) Penicillins Drug Allergy 5 Anaphylaxis, [facility] (20 sources) Penicillins Propensity to adverse reactions 3 [facility] (20 sources) OTHER; Translations: [OTHER] Propensity to adverse reactions to food (disorder) 3 Unknown [facility] (20 sources) Barium-Containi ng Compounds Drug Intolerance 3 Anaphylaxis [facility] Work Phone: (1 source) Penicillins Drug Allergy 5 Anaphylaxis, [facility] Medications Current Medications Medication Drug Class(es) Dates Sig (Normalized) Sig (Original) acetaminophen 325 mg / HYDROcodone bitartrate 5 mg oral tablet (1 source) Opioid Agonist Start: 08-18-2024 End: 08-25-2024 take 1 tablet by mouth every eight hours for pain HYDROcodone-aceta minophen (Mccomb) 5-325 MG tablet Indications: Acute left-sided thoracic back pain Take 1 tablet by mouth every 8 (eight) hours if needed for severe pain for up to 7 days 21 tablet 08/18/2024 08/25/2024 Active allopurinol 100 mg oral tablet (20 sources) Xanthine Oxidase Inhibitor Start: 09-27-2017 End: 10-01-2024 take 1 tablet by mouth once daily allopurinol (Zyloprim) 100 MG tablet Indications: Elevated blood uric acid level Take 1 tablet (100 mg) by mouth Daily 90 tablet 1 07/03/2024 10/01/2024 Active Comment on above: allopurinol 100 mg t ablet Take 100 mg by mouth once daily. benzonatate 200 mg oral capsule (2 sources) Non-narcotic Antitussive Start: 08-02-2024 End: 08-12-2024 take 1 capsule by mouth three times daily as needed for cough benzonatate (Tessalon) 200 MG capsule Indications: URI, acute Take 1 capsule (200 mg) by mouth 3 (three) times a day as needed for cough for up to 10 days Do not crush or chew. 30 capsule 08/02/2024 08/12/2024 Active Blood-Glucose Sensor (FREESTYLE LEEANN 3 SENSOR) mauricio (20 sources) Start: 01-27-2023 Blood-Glucose Sensor (FREESTYLE LEEANN 3 SENSOR) mauricio Use new sensor every 14 days to monitor blood glucose. 6 Each 3 01/27/2023 Active Comment on above: Use new sensor every 14 days to monitor blood glucose. clopidogrel 75 mg oral tablet (20 sources) [id number] Platelet Inhibitor Start: 02-07-2024 End: 02-06-2025 take 1 tablet by mouth every twenty-four hours clopidogrel (PLAVIX) 75 mg tablet Indications: S/P angioplasty with stent Take 1 tablet by mouth every 24 hours. 90 tablet 3 02/07/2024 02/06/2025 Active Start: 02-18-2023 End: 02-18-2024 take 1 tablet by mouth once daily clopidogrel (PLAVIX) 75 mg tablet Take 1 tablet by mouth once daily. 90 tablet 3 02/18/2023 06/02/2023 Discontinued Comment on above: Take 1 tablet by stella th once daily. Take by mouth every 24 hours. diazePAM 5 mg oral tablet (20 sources) Benzodiazepine Start: 11-01-2023 End: 02-16-2024 diazePAM (Valium) 5 MG tablet Indications: Chronic left shoulder pain Take 5mg dose night before MRI, then repeat dose 1 hour prior to MRI 2 tablet 11/01/2023 02/16/2024 Discontinued (Therapy completed) Start: 03-24-2023 End: 06-26-2024 diazePAM (VALIUM) 2 mg table t 03/24/2023 06/26/2024 Discontinued Start: 03-24-2023 End: 02-16-2024 take 1 tablet by mouth once diazePAM (Valium) 2 MG tab let Indications: Generalized anxiety disorder with panic attacks (CMS/HCC) Take 1 tablet (2 mg) by mouth every 12 (twelve) hours if needed for anxiety for up to 10 days 20 tablet 03/24/2023 02/16/2024 Discontinued (Therapy completed) doxycycline hyclate 100 mg oral tablet (4 sources) Tetracycline-class Drug Start: 08-02-2024 End: 08-12-2024 take 1 tablet by mouth in the morning doxycycline (Vibra-Tabs) 100 MG tablet Indications: URI, acute Take 1 tablet (100 mg) by mouth in the morning and 1 tablet (100 mg) before bedtime. Do all this for 10 days. Take with a full glass of water and do not lie down for at least 30 minutes after. 20 tablet 08/02/2024 08/02/2024 Discontinued (Reorder) empagliflozin 10 mg oral tablet (20 sources) Sodium-Glucose Cotransporter 2 Inhibitor Start: 06-15-2023 End: 06-05-2025 take 1 tablet by mouth once daily at breakfast empagliflozin (JARDIANCE) 10 mg tablet Take 1 tablet by mouth daily with breakfast. 90 tablet 3 06/06/2024 5:00 PM EST 06/05/2024 06/05/2025 Active Comment on above: Take 1 tablet by stella th daily with breakfast. ergocalciferol 1.25 mg oral capsule (10 sources) Provitamin D2 Compound Start: 04-26-2024 take 1 capsule by mouth every week ergocalciferol 50,000 unit capsule (VITAMIN D2, DRISDOL) Take 1 capsule by mouth one time a week. 20 capsule 04/26/2024 Active fluticasone propionate 0.05 mg/actuat metered dose nasal spray (20 sources) Corticosteroid fluticasone (FLONASE) 50 mcg/actuation nasal spray fluticasone propionate 50 mcg/actuation nasal spray,suspension Active take 2 spray(s) nasa l route in the morning fluticasone (Flonase) 50 MCG/ACT nasal spray Administer 2 sprays into each nostril in the morning. Shake gently. Before first use, prime pump. After use, clean tip and replace cap.. Active fluticasone (ALBER NASE) 50 mcg/actuation nasal spray fluticasone propionate 50 mcg/actuation nasal spray,suspension 0 Active Comment on above: fluticasone propiona te 50 mcg/actuation nasal spray,suspension furosemide 20 mg oral tablet (20 sources) Loop Diuretic Start: End: take 0.5 tablet by mouth once daily furosemide (LASIX) 40 mg tablet Take 0.5 tablets by mouth once daily. 45 tablet 3 01/17/2024 Active Start: 07-05-2023 End: 07-27-2023 take 1 [...] afternoon. 75 tablet 1 06/10/2023 Active Start: 05-03-2020 End: 02-25-2023 take 1 tablet by mouth twice daily furosemide (LASIX) 20 mg tablet Take 1 tablet by mouth twice daily. 60 tablet 2 05/03/2020 02/25/2023 Discontinued (Adjust Sig - Block E-Cancel) Start: 01-08-2020 End: 02-06-2025 take 1 tablet by mouth once daily as needed furosemide (LASIX) 20 mg tablet Indications: Chronic systolic congestive heart failure (HCC) Take 1 tablet by mouth once daily as needed. 90 tablet 1 06/26/2024 Active Comment on above: Take 1 tablet by stella th twice daily. Take 1 tablet by stella th once daily. Take 1 tablet by stella th once daily. Take 40mg in the morning and 20mg in the afternoon. Take 1 and 1/2 table ts (60 mg) by mouth in the morning and take 1 tablet (40mg) in the afternoon. Take 1 tablet by stella th two times a day. Take 0.5 tablets by mouth once daily. 3 ml insulin glargine 100 unt/ml pen injector (2 sources) Insulin Analog Start: 04-06-2023 insulin glargine (Basaglar KwikPen) 100 UNIT/ML pen Indications: Type 2 diabetes mellitus without complication, with long-term current use of insulin ([facility]) Up to 50 units in the evening 15 each 12 04/06/2023 Active magnesium oxide 400 mg oral tablet (20 sources) Start: 05-04-2024 take 1 tablet by mouth once daily magnesium oxide (Mag-Ox) 400 (240 Mg) MG tablet Take 400 mg by mouth Daily 05/04/2024 Active Start: 10-25-2020 End: 11-11-2023 take 1 tablet by mouth twice daily magnesium oxide (MAG-OX) 400 mg (241.3 mg magnesium) tablet Indications: Hypomagnesemia TAKE 1 TABLET BY MOUTH TWICE DAILY. TAKE SEPERATELY FROM DOXYCYCLINE 180 tablet 3 11/11/2023 Active Comment on above: TAKE 1 TABLET BY STELLA TH TWICE DAILY, TAKE SEPERATELY FROM DOXYCYCLINE Take 1 tablet by stella th twice daily. This med needs to be taken separately from doxycycline. TAKE 1 TABLET BY STELLA TH TWICE DAILY. TAKE SEPERATELY FROM DOXYCYCLINE magnesium oxide 600 mg / pyridoxine hydrochloride 25 mg oral tablet (20 sources) End: take 1 tablet by mouth once daily magnesium oxide-pyridoxine (Beelith) 362-20 MG tablet Take 1 tablet by mouth Daily 400MG 08/02/2024 Discontinued (Therapy completed) take 1 tablet by mouth in the mo rning magnesium oxide-pyridoxine (Beelith) 362- 20 MG tablet Take 1 tablet by mouth in the morning. 0 Active 24 hr metoprolol succinate 50 mg extended release oral tablet (20 sources) beta-Adrenergic Genia Start: 06-27-2024 take 1 tablet by mouth every twenty-four hours in the morning metoprolol succinate XL (Toprol-XL) 50 MG 24 hr tablet Take 50 mg by mouth in the morning and 50 mg before bedtime. 06/27/2024 Active Start: 06-26-2024 take 1 tablet by stella twice daily metoprolol succinate ER (TOPROL XL) 50 mg 24 hr tablet Take 1 tablet by mouth two times a day. 180 tablet 1 06/26/2024 Active Start: 10-07-2023 End: 06-26-2024 take 1 tablet by mouth every twenty-four hours in the evening metoprolol succinate ER (TOPROL XL) 25 mg 24 hr tablet Take 1 tablet by mouth as directed. 50 mg AM and 25 mg PM 270 tablet 3 10/07/2023 06/26/2024 Discontinued Start: 07-27-2023 End: 10-07-2023 take 1 tablet by mouth twice daily metoprolol succinate ER (TOPROL XL) 25 mg 24 hr tablet Take 1 tablet by mouth two times a day. 180 tablet 3 07/27/2023 10/07/2023 Discontinued Start: 03-22-2023 End: 08-02-2024 take 1 tablet by mouth once daily metoprolol succinate ER (TOPROL XL) 25 mg 24 hr tablet Take 1 tablet by mouth once daily. 90 tablet 3 03/22/2023 07/27/2023 Discontinued take 1 tablet by stella th every twenty-four hours in the morning metoprolol succinate XL (Toprol-XL) 25 MG 24 hr tablet Indications: Heart Failure , Hypertension Take 25 mg by mouth in the morning. Do not crush or chew.. 0 Active Comment on above: Take 1 tablet by stella th once daily. Take 1 tablet by stella th two times a day. omeprazole 40 mg delayed release oral capsule (20 sources) Proton Pump Inhibitor take 1 capsule by mouth twice daily omeprazole (PRILOSEC) 40 mg capsule Take 40 mg by mouth two times a day. Pt confirmed she is taking this medication Active Ozempic, 2 MG/DOSE, 8 MG/3ML solution pen-injector (5 sources) Start: 5 Ozempic, 2 MG/DOSE, 8 MG/3ML solution pen-injector Inject 2 mg as directed every 7 (seven) days 05/12/2024 Active predniSONE 20 mg oral tablet (1 source) Start: 5 End: 5 take 1 tablet by mouth in the morning predniSONE (Deltasone) 20 MG tablet Indications: Other cirrhosis of liver Take 1 tablet (20 mg) by mouth in the morning and 1 tablet (20 mg) in the evening. Do all this for 5 days. Take with food. 10 tablet 08/18/2024 08/23/2024 Active rosuvastatin calcium 40 mg oral tablet (20 sources) HMG-CoA Reductase Inhibitor Start: 4 End: 5 take 1 tablet by mouth once daily at bedtime rosuvastatin (CRESTOR) 40 mg tablet Indications: Mixed hyperlipidemia , 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 Take 1 tablet by mouth daily at bedtime. 90 tablet 3 04/24/2024 Active Start: 06-11-2022 End: 05-16-2023 take 1 tablet by mouth once daily at bedtime rosuvastatin (CRESTOR) 40 mg tablet Indications: 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 , Mixed hyperlipidemia Take 1 tablet by mouth daily at bedtime. 90 tablet 3 06/11/2022 05/16/2023 Discontinued Comment on above: Take 1 tablet by stella th daily at bedtime. 0.25 mg, 0.5 [...] subcutaneously one time a week. 3 mL 05/12/2024 Active Start: 05-12-2024 End: 06-11-2024 inject 2 mg by subcutaneous injection every week semaglutide (OZEMPIC) 2 mg/dose (8 mg/3 mL) pen injector Inject 2 mg subcutaneously one time a week. 3 mL 05/12/2024 06/11/2024 Active Start: 02-18-2024 inject 2 mg by subcu taneous injection every week semaglutide (OZEMPIC) 2 mg/dose (8 mg/3 mL) pen injector Inject 2 mg subcutaneously one time a week. 3 mL 02/18/2024 Active Start: 02-18-2024 End: 03-19-2024 inject 2 mg by subcutaneous injection every week semaglutide (OZEMPIC) 2 mg/dose (8 mg/3 mL) pen injector Inject 2 mg subcutaneously one time a week. 3 mL 02/18/2024 03/19/2024 Active Start: 09-23-2023 inject 2 mg by subcu taneous injection every week semaglutide (OZEMPIC) 2 mg/dose (8 mg/3 mL) pen injector Inject 2 mg subcutaneously one time a week. 3 mL 09/23/2023 Active Start: 09-23-2023 inject 2 mg by subcu taneous injection [...] or 0.5 MG/DOSE,) 2 MG/3ML solution pen-injector (20 sources) Semaglutide,0.25 or 0.5MG/DOS, (Ozempic, 0.25 or 0.5 MG/DOSE,) 2 MG/3ML solution pen-injector Inject under the skin 1 (one) time per week Active Semaglutide,0.25 or 0.5MG/DOS, (Ozempic, 0.25 or 0.5 MG/DOSE,) 2 MG/3ML solution pen-injector Inject under the skin 1 (one) time per week 0 Active spironolactone 25 mg oral tablet (20 sources) Aldosterone Antagonist Start: 01-03-2024 take 0.5 tablet by mouth once daily spironolactone (ALDACTONE) 25 mg tablet Take 0.5 tablets by mouth once daily. 45 tablet 3 01/03/2024 Active valsartan 40 mg oral tablet (20 sources) Angiotensin 2 Receptor Genia Start: 04-07-2023 End: 04-24-2025 take 0.5 tablet by mouth once daily valsartan (DIOVAN) 40 mg tablet Indications: 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 , Essential hypertension Take 0.5 tablets by mouth once daily. 45 tablet 3 04/24/2024 04/24/2025 Active Start: 02-18-2023 End: 02-18-2024 take 1 tablet by mouth once daily valsartan (DIOVAN) 40 mg tablet Take 1 tablet by mouth once daily. 90 tablet 3 02/18/2023 02/18/2024 Active valsartan (Diova n) 40 MG tablet Take 20 mg by mouth Daily Active Comment on above: Take 1 tablet by stella th once daily. Take 0.5 tablets by mouth once daily. Completed/Discontinued Medications Medication Drug Class(es) Dates Sig (Normalized) Sig (Original) aspirin 325 mg oral tablet (20 sources) Platelet Aggregation Inhibitor, Nonsteroidal Anti-inflammatory Drug Start: 01-09-2020 End: 12-17-2022 take 1 tablet by mouth once daily aspirin 325 mg tablet Take 1 tablet by mouth once daily. 90 tablet 1 01/09/2020 12/17/2022 Discontinued (Other) take 1 tablet by mouth once lisbeth y aspirin, enteric coated (ASPIRIN, ENTERIC COATED) 81 mg EC tablet Take 81 mg by mouth once daily. Active Comment on above: Take 1 tablet by stella th once daily. Take 81 mg by mouth once daily. atorvastatin 80 mg oral tablet (12 sources) HMG-CoA Reductase Inhibitor Start: End: 3 take 1 tablet by mouth once daily atorvastatin (LIPITOR) 80 mg tablet Take 80 mg by mouth once daily. 0 11/07/2018 06/11/2022 Discontinued Comment on above: Take 80 mg by mouth once daily. carvedilol 25 mg oral tablet (20 sources) alpha-Adrenergic Genia, beta-Adrenergic Genia Start: 3 take 0.5 tablet by mouth twice daily carvedilol (COREG) 25 mg tablet Indications: Nonsustained ventricular tachycardia (HCC) , Systolic heart failure, unspecified HF chronicity (HCC) Take 0.5 tablets by mouth two times a day. 180 tablet 3 02/25/2023 Active Start: 12-05-2021 End: 02-24-2023 take 1 tablet by mouth twice daily carvedilol (COREG) 25 mg tablet Indications: Nonsustained ventricular tachycardia (HCC) , Systolic heart failure, unspecified HF chronicity (HCC) Take 1 tablet by mouth twice daily. 180 tablet 3 12/05/2021 02/24/2023 Discontinued Start: 02-27-2021 End: 12-05-2021 take 1 tablet by mouth twice daily carvedilol (COREG) 12.5 mg tablet Indications: Nonsustained ventricular tachycardia (HCC) , Systolic heart failure, unspecified HF chronicity (HCC) Take 1 tablet by mouth twice daily. 180 tablet 3 02/27/2021 12/05/2021 Discontinued Comment on above: Take 1 tablet by stella th twice daily. Take 0.5 tablets by mouth two times a day. CPAP/BIPAP/OTHER (20 sources) Start: 11-04-2022 End: 08-03-2023 [...] information. 0.5 ml dulaglutide 1.5 mg/ml auto-injector (6 sources) GLP-1 Receptor Agonist Start : 08-05 End: 09-04 inject 0.75 mg by subcutaneous injection every week dulaglutide (TRULICITY) 0.75 mg/0.5 mL pen injector Inject 0.75 mg subcutaneously one time a week for 28 days. 2 mL 11 08/07/2022 08/07/2022 Discontinued Start: 06-23-2022 End: 07-21-2022 inject 0.75 mg by subcutaneous injection every week dulaglutide (TRULICITY) 0.75 mg/0.5 mL pen injector Inject 0.75 mg subcutaneously one time a week for 28 days. 2 mL 1 06/23/2022 Active Comment on above: Inject 0.75 mg subcutaneously one time a week for 28 days. 3 ml insulin detemir 100 unt/ml pen injector (20 sources) Insulin Analog Start: End: inject 20 [IU] by subcutaneous injection once daily at bedtime insulin detemir U-100 (LEVEMIR) 100 unit/mL (3 mL) injection pen Inject 20 Units subcutaneously daily at bedtime. 06/02/2023 02/28/2024 Discontinued (Course of therapy completed) Start: 01-27-2023 End: 06-02-2023 inject 28 [IU] by subcutaneous injection once daily at bedtime insulin detemir U-100 (LEVEMIR) 100 unit/mL (3 mL) injection pen Inject 28 Units subcutaneously daily at bedtime. 0 01/27/2023 06/02/2023 Discontinued (Adjust Sig - Block E-Cancel) Start: 01-27-2023 End: 01-27-2023 inject 32 [IU] by subcutaneous injection once daily at bedtime insulin detemir U-100 (LEVEMIR) 100 unit/mL (3 mL) injection pen Inject 32 Units subcutaneously daily at bedtime. 0 01/27/2023 01/27/2023 Discontinued (Adjust Sig - Block E-Cancel) Start: 09-02-2018 End: 06-23-2022 LEVEMIR FLEXTOUCH U-[address] 100 unit/mL (3 mL) inpn injection 10 Units. 0 09/02/2018 06/23/2022 Discontinued End: 02-16-2024 insulin detemir (Levemir FlexTouch) 100 UNIT/ML pen Inject 50 Units under the skin at bedtime 02/16/2024 Discontinued (Therapy completed) End: 01-27-2023 insulin detemir U-100 (LEVEM IR) 100 unit/mL (3 mL) injection pen Inject 35 Units subcutaneously. 0 01/27/2023 Discontinued (Adjust Sig - Block E-Cancel) Comment on above: 10 Units. Inject 35 Units subc utaneously. Inject 28 Units subc utaneously daily at bedtime. Inject 32 Units subc utaneously daily at bedtime. Inject 20 Units subc utaneously daily at bedtime. metFORMIN hydrochloride 1000 mg oral tablet (13 sources) Biguanide End: 06-23-2022 metFORMIN (GLUCOPHAGE) 1,000 mg tablet Take 500 mg by mouth twice daily. 0 06/23/2022 Discontinued (Side Effects) take 1 tablet by mouth twice jorge ly metFORMIN (GLUCOPHAGE) 1,000 mg tablet Take 1,000 mg by mouth twice daily. 0 Active Comment on above: Take 1,000 mg by stella th twice daily. Take 500 mg by mouth twice daily. perflutren lipid microspheres 1.3 mL in NaCl (PF) 0.9% 10 mL injection (DEFINITY) (20 sources) Start: 04-10-2024 End: 04-10-2024 perflutren lipid microspheres 1.3 mL in NaCl (PF) 0.9% 10 mL injection (DEFINITY) Start: 04-10-2024 End: 04-10-2024 take 1 dose intravenously once as needed INTRAVENOUS, DIRECTED NEEDED, 1 dose, Starting on Wed04/10/24 at 1028, Until Wed04/10/24 at 1015, Per Protocol - for use during ECHO procedure only, If no IV access, insert saline lock prior to administering contrast. Discontinue saline lock post exam. If patient has central line or IVAD, may access for administration according to line specific nursing protocol. Once exam is complete, flush line and de-access per line specific nursing protocol.Dilute 1.3 ml of Definity with 8.7 ml of preservative-free saline., Cardiac Procedure Med Orders Start: 10-07-2023 End: 10-07-2023 perflutren lipid microsphere s 1.3 mL in [...] Inject 1 mg subcutan eously once weekly sertraline 50 mg oral tablet (20 sources) Serotonin Reuptake Inhibitor Start: 05-24-2023 End: 12-28-2023 sertraline (ZOLOFT) 50 mg tablet Take 25 mg by mouth once daily. 05/24/2023 12/28/2023 Discontinued Start: 05-24-2023 End: 06-23-2023 sertraline (ZOLOFT) 50 mg ta blet Start: 03-24-2023 take 1 tablet by stella th in the morning, then take 0.5 [...] Take 25 mg by mouth once daily. 125 ml sodium chloride 9 mg/ml prefilled syringe (20 sources) Start: 04-10-2024 End: 04-10-2024 sodium chloride 0.9 % (flush) 10 mL (BD POSIFLUSH) Start: 04-10-2024 End: 04-10-2024 10 mL, INTRAVENOUS, DIREC GABE NEEDED, 1 dose, Starting on Wed04/10/24 at 1028, Until Wed04/10/24 at 1015, Per Protocol - for use during ECHO procedure only, no IV access, insert saline lock prior to administering contrast. Discontinue saline lock post exam. If patient has central line or IVAD, may access for administration according to line specific nursing protocol. Once exam is complete, flush line and de-access per line specific nursing protocol., Cardiac Procedure Med Orders Start: 10-07-2023 End: 10-07-2023 sodium chloride 0.9 % (flush ) 10 mL (BD POSIFLUSH) Start: 09-04-2021 End: 09-10-2023 sodium chloride 0.9 % (flush ) 10 mL (BD POSIFLUSH) Problems Active Problems Problem Classification Problem Date Documented Da te Episodic/Chronic Anxiety disorders (20 sources) Generalized anxiety disorder; Translations: [Generalized anxiety disorder] Onset: 03-24-2023 Resolved: 10-18-2023 03-24-2023 Chronic Aortic and peripheral arterial embolism or thrombosis (20 sources) Occlusion of aortoiliac artery; Translations: [Other arterial embolism and thrombosis of abdominal aorta] Onset: 01-02-2020 01-03-2020 Chronic Cardiac dysrhythmias (20 sources) Nonsustained ventricular tachycardia ; Translations: [Ventricular tachycardia] Onset: 12-22-2018 12-22-2018 Chronic Cardiac dysrhythmias (1 source) Sinus bradycardia; Translations: [Bradycardia, unspecified] 03-08-2023 Episodic Chronic kidney disease (20 sources) Chronic kidney disease stage 3B ; Translations: [Stage 3b chronic kidney disease (HCC)] Onset: 10-18-2023 10-11-2023 Chronic Chronic kidney disease (2 sources) Chronic kidney disease; Translations: [Chronic kidney disease, stage 3b] Onset: 08-14-2024 Conduction disorders (20 sources) Left bundle branch block; Translations: [Left bundle-branch block, unspecified] Onset: 05-31-2023 05-31-2023 Chronic Congestive heart failure; nonhypertensive (20 sources) Systolic heart failure; Translations: [Unspecified systolic (congestive) heart failure] Onset: 12-22-2018 01-08-2020 Chronic Coronary atherosclerosis and other heart disease (20 sources) Disorder of coronary artery; Translations: [Atherosclerotic heart disease of [place] coronary artery without angina pectoris] Onset: 06-08-2019 Resolved: 10-18-2023 06-08-2019 Chronic Diabetes mellitus with complications (20 sources) Hyperlipidemia; Translations: [Type 2 diabetes mellitus with other specified complication] Onset: 11-30-2017 Chronic Diabetes mellitus without complication (20 sources) Type 2 diabetes mellitus without complications; Translations: [Diabetes mellitus] Onset: 08-17-2016 Resolved: 10-18-2023 01-08-2020 Chronic Disorders of lipid metabolism (20 sources) Hyperlipidemia, unspecified; Translations: [Mixed hyperlipidemia] Onset: 11-18-2018 Chronic Diverticulosis and diverticulitis (20 sources) Diverticulosis of colon; Translations: [Diverticulosis of large intestine without perforation or abscess without bleeding] Onset: 11-30-2017 04-06-2023 Chronic Esophageal disorders (1 source) Esophageal obstruction; Translations: [Esophageal obstruction] Onset: 12-06-2023 Chronic Essential hypertension (20 sources) Essential hypertension; Translations: [Essential (primary) hypertension] Onset: 11-30-2017 01-08-2020 Chronic Gastritis and duodenitis (1 source) Chronic superficial gastritis without bleeding; Translations: [Chronic superficial gastritis without bleeding] Onset: 12-06-2023 Chronic Genitourinary symptoms and ill-defined conditions (20 sources) Urinary incontinence; Translations: [Unspecified urinary incontinence] Onset: 06-07-2023 06-07-2023 Chronic Gout and other crystal arthropathies (20 sources) Gout; Translations: [Gout, unspecified] Onset: 11-30-2017 04-06-2023 Chronic Heart valve disorders (20 sources) Non-rheumatic mitral regurgitation ; Translations: [Nonrheumatic mitral (valve) insufficiency] Onset: 12-28-2023 06-17-2023 Chronic Nonspecific chest pain (2 sources) Chest discomfort; Translations: [Other chest pain] Episodic Nutritional deficiencies (3 sources) Vitamin D deficiency; Translations: [Vitamin D deficiency, unspecified] Onset: 08-16-2024 10-11-2023 Chronic Osteoarthritis (20 sources) Osteoarthritis of right hip joint; Translations: [Unilateral primary osteoarthritis, right hip] Onset: 06-13-2020 04-06-2023 Chronic Other and ill-defined cerebrovascular disease (20 sources) Intracranial aneurysm; Translations: [Cerebral aneurysm, nonruptured] Onset: 06-07-2023 06-07-2023 Chronic Other and ill-defined heart disease (20 sources) Left ventricular cardiac dysfunction; Translations: [Heart disease, unspecified] Onset: 07-01-2023 07-01-2023 Chronic Other circulatory disease (1 source) Peripheral vascular disease; Translations: [Other specified peripheral vascular diseases] Chronic Other circulatory disease (6 sources) History of aortofemoral bypass surgery; Translations: [Presence of other vascular implants and grafts] Chronic Other circulatory disease (20 sources) History of angioplasty; Translations: [Peripheral vascular angioplasty status with implants and grafts] Onset: 02-17-2023 02-17-2023 Chronic Other circulatory disease (20 sources) Peripheral arterial occlusive disease; Translations: [Disorder of arteries and arterioles, unspecified] Onset: 11-30-2017 04-06-2023 Chronic Other circulatory disease (20 sources) H/O: artificial heart; Translations: [Presence of heart assist device] Onset: 01-03-2024 01-03-2024 Chronic Other circulatory disease (1 source) Low blood pressure; Translations: [Hypotension, unspecified] 03-08-2023 Episodic Other connective tissue disease (9 sources) Adhesive capsulitis of left shoulder; Translations: [Adhesive capsulitis of left shoulder] 02-16-2024 Episodic Other diseases of bladder and urethra (1 source) Overactive bladder; Translations: [Overactive bladder] Chronic Other liver diseases (3 sources) Cirrhosis of liver; Translations: [Other cirrhosis of liver] Onset: 08-18-2024 08-18-2024 Chronic Other lower respiratory disease (3 sources) Dyspnea; Translations: [Dyspnea, unspecified] Episodic Other nervous system disorders (1 source) Other chronic pain; Translations: [Other chronic pain] Onset: 10-25-2023 Chronic Other nervous system disorders (1 source) Unresponsive ; Translations: [Other symptoms and signs involving cognitive functions and awareness] 03-08-2023 Episodic Other non-traumatic joint disorders (1 source) Joint pain; Translations: [Pain in unspecified joint] 02-10-2024 Episodic Other nutritional; endocrine; and metabolic disorders (20 sources) Hypomagnesemia; Translations: [Hypomagnesemia] Onset: 06-07-2023 Chronic Other nutritional; endocrine; and metabolic disorders (20 sources) Obesity; Translations: [Other obesity due to excess calories] Onset: 11-18-2018 11-18-2018 Chronic Other nutritional; endocrine; and metabolic disorders (20 sources) Obesity caused by energy imbalance; Translations: [Other obesity due to excess calories] Onset: 11-18-2018 Resolved: 10-18-2023 11-18-2018 Chronic Other skin disorders (4 sources) Rash and other nonspecific skin eruption; Translations: [RASH OTH NONSPECIFIC SKIN ERUPTION] Onset: 07-15-2021 Episodic Other upper respiratory disease (20 sources) Allergic rhinitis; Translations: [Allergic rhinitis, unspecified] Onset: 06-07-2023 06-07-2023 Chronic Other upper respiratory disease (20 sources) Allergic disposition; Translations: [Other allergic rhinitis] Onset: 06-07-2023 06-07-2023 Chronic Other upper respiratory disease (2 sources) Seasonal allergic rhinitis; Translations: [Other seasonal allergic rhinitis] 08-02-2024 Chronic Other upper respiratory infections (7 sources) Acute upper respiratory infection; Translations: [Acute upper respiratory infection, unspecified] Onset: 08-02-2024 08-02-2024 Episodic Abbi-; endo-; and myocarditis; cardiomyopathy (except that caused by tuberculosis or sexually transmitted disease) (20 sources) Cardiomyopathy; Translations: [Cardiomyopathy, unspecified] Onset: 06-07-2019 06-07-2019 Chronic Peripheral and visceral atherosclerosis (20 sources) Intermittent claudication; Translations: [Peripheral vascular disease, unspecified] Onset: 11-18-2018 11-18-2018 Chronic Pulmonary heart disease (20 sources) Pulmonary hypertension; Translations: [Pulmonary hypertension, unspecified] Onset: 12-28-2023 12-28-2023 Chronic Residual codes; unclassified (12 sources) Obstructive sleep apnea syndrome; Translations: [Obstructive sleep apnea (adult) (pediatric)] Chronic Residual codes; unclassified (1 source) Pain, unspecified; Translations: [Pain, unspecified] Onset: 11-18-2023 Episodic Spondylosis; intervertebral disc disorders; other back problems (20 sources) Lumbar spondylosis; Translations: [Spondylosis without myelopathy or radiculopathy, lumbar region] Onset: 08-17-2016 04-06-2023 Chronic Spondylosis; intervertebral disc disorders; other back problems (20 sources) Disorder of sacrum; Translations: [Sacrococcygeal disorders, not elsewhere classified] Onset: 08-17-2016 04-06-2023 Episodic Syncope (1 source) Syncope and collapse; Translations: [Syncope and collapse] Onset: 02-24-2023 Episodic Thyroid disorders (20 sources) Thyroid nodule; Translations: [Nontoxic single thyroid nodule] Onset: 04-06-2023 04-06-2023 Chronic Unclassified (2 sources) Acute pain of left shoulder 02-16-2024 Unclassified (1 source) abnormal CT scan, left upper quadrant pain Onset: 12-06-2023 Past or Other Problems Problem Classification Problem Date Documented Date Episodic/Chronic Abdominal pain (3 sources) Left upper quadrant pain; Translations: [Abdominal pain] Onset: 11-24-2023 Episodic Acute and unspecified renal failure (20 sources) Acute kidney failure, unspecified; Translations: [Acute renal failure syndrome] Onset: 02-24-2023 06-15-2023 Episodic Malaise and fatigue (20 sources) Fatigue; Translations: [Other fatigue] Onset: 06-07-2023 Episodic Other aftercare (1 source) shelter (current) use of insulin; Translations: [Type 2 diabetes mellitus with other circulatory complication, with long-term current use of insulin (HCC)] Onset: 02-16-2023 Episodic Other circulatory disease (20 sources) Carotid bruit; Translations: [Other specified symptoms and signs involving the circulatory and respiratory systems] Onset: 12-22-2018 12-22-2018 Episodic Other connective tissue disease (20 sources) Tibialis posterior tendinitis ; Translations: [Posterior tibial tendinitis, unspecified leg] Onset: 09-19-2015 09-19-2015 Episodic Other connective tissue disease (20 sources) Tendinitis of left rotator cuff; Translations: [Other shoulder lesions, left shoulder] Onset: 02-10-2024 02-10-2024 Episodic Other eye disorders (20 sources) Dry eyes; Translations: [Dry eye syndrome of bilateral lacrimal glands] Onset: 06-07-2023 06-07-2023 Episodic Other non-traumatic joint disorders (20 sources) Chronic ankle pain; Translations: [Pain in right ankle and joints of right foot] Onset: 09-19-2015 09-19-2015 Episodic Other non-traumatic joint disorders (20 sources) Chronic pain of right upper limb; Translations: [Pain in right shoulder] Onset: 06-01-2017 04-06-2023 Episodic Other non-traumatic joint disorders (20 sources) Pain in left shoulder; Translations: [Pain in joint, shoulder region] Onset: 10-18-2023 10-18-2023 Episodic Other nutritional; endocrine; and metabolic disorders (20 sources) Hyperuricemia; Translations: [Hyperuricemia without signs of inflammatory arthritis and tophaceous disease] Onset: 04-08-2023 04-08-2023 Episodic Other screening for suspected conditions (not mental disorders or infectious disease) (5 sources) Patient encounter status; Translations: [Encounter for screening for cardiovascular disorders] Onset: 02-16-2023 09-12-2020 Episodic Residual codes; unclassified (20 sources) Edema of extremity; Translations: [Localized edema] Onset: 06-07-2023 06-07-2023 Episodic Results Test Name Value Interpretation Reference Range [facility] 25-hydroxyvitamin D3 [Mass/Vol] 48.9 ng/mL Normal 31.0-80.0 [facility] Comment on above: Order Comment: Speci men Type: BLOOD SPECIMENOrdering Facility: [facility] Address: [address] [place] [address] Result Comment: Clas sification of 25 [place] Vitamin D status: Deficiency/Insufficiency: < or = 30 ng/ml. Sufficiency/Optimal Levels: 31-80 ng/mL Toxicity: > 100 ng/mL. Test performed by chemiluminescent immunoassay. Performed By: #### 1 989-3 ####[facility] LABCLIA [id number] [place] [address] [place] Albumin SerP-ncon 025 Albumin [Mass/Vol] 4.1 g/dL Normal 3.9-4.9 [facility] Comment on above: Order Comment: Speci men Type: BLOOD SPECIMENOrdering Facility: [facility] Address: [address] [place] [address] Performed By: #### 2 731-8, 1751-7 ####[facility] LABCLIA [id number] [place] [address] [place] Basic metabolic 2000 panelon 08-16-2024 Anion gap [Moles/Vol] 10 mmol/L Normal 8-15 [facility] Comment on above: Order Comment: Speci men Type: BLOOD SPECIMENOrdering Facility: [facility] Address: [address] [place] [address] Performed By: #### 3 3762-6, LIPNF, 2777-1, 81416-2 ####[facility] LABCLIA [id number] [place] [address] [place] Calcium [Mass/Vol] 9.2 mg/dL Normal 8.5-10.2 [facility] Comment on above: Order Comment: Speci men Type: BLOOD SPECIMENOrdering Facility: [facility] Address: [address] [place] [address] Performed By: #### 3 3762-6, LIPNF, 2777-1, 82586-3 ####[facility] LABCLIA [id number] [place] [address] [place] Chloride [Moles/Vol] 108 mmol/L High 98-107 [facility] Comment on above: Order Comment: Speci men Type: BLOOD SPECIMENOrdering Facility: [facility] Address: [address] [place] [address] Performed By: #### 3 3762-6, LIPNF, 2777-1, 07214-2 ####[facility] LABCLIA [id number] [place] [address] [place] CO2 [Moles/Vol] 25 mmol/L Normal 22-30 [facility] Comment on above: Order Comment: Speci men Type: BLOOD SPECIMENOrdering Facility: [facility] Address: [address] [place] [address] Performed By: #### 3 3762-6, LIPNF, 2777-1, 43926-0 ####[facility] LABCLIA [id number] [place] [address] [place] Creatinine [Mass/Vol] 1.24 mg/dL High 0.58-0.96 [facility] Comment on above: Order Comment: Speci men Type: BLOOD SPECIMENOrdering Facility: [facility] Address: [address] [place] [address] Performed By: #### 3 3762-6, LIPNF, 2777-1, 48319-1 ####[facility] LABIA [id number] [address] STATES OF [facility] Creatinine and Glomerular filtration rate.predicted panel (S/P/Bld) 45 mL/min/1.73m??? Low >=60 [facility] Comment on above: Order Comment: Speci men Type: BLOOD SPECIMENOrdering Facility: [facility] Address: [address] [place] [address] Result Comment: Tanisha mated Glomerular Filtration Rate [...] reflect actual GFR. Performed By: #### 3 3762-6, LIPNF, 2777-1, 90913-5 ####[facility] LABCLIA [id number] [address] [address] [place] Glucose [Mass/Vol] 84 mg/dL Normal 74-99 [facility] Comment on above: Order Comment: Speci men Type: BLOOD SPECIMENOrdering Facility: [facility] Address: [address] [place] [address] Result Comment: The [place] Diabetes Association (ADA) provides guidance for cutoff [...] Standards of Medical Care in Diabetes 2016, [place] [employer]. Diabetes Care. 2016.39(Suppl 1). Performed By: #### 3 3762-6, LIPNF, 2777-1, 02648-2 ####[facility] LABCLIA [id number] [place] [address] [place] Potassium [Moles/Vol] 5.0 mmol/L Normal 3.7-5.1 [facility] Comment on above: Order Comment: [place] andrew Type: BLOOD SPECIMENOrdering Facility: [facility] Address: [address] [place] [address] Performed By: #### 3 3762-6, LIPNF, 2777-, 85024-2 ####[facility] LABCLIA [id number] [place] [address] [place] Sodium [Moles/Vol] 143 mmol/L Normal 136-144 [facility] Comment on above: Order Comment: Gisselle[place] men Type: BLOOD SPECIMENOrdering Facility: [facility] Address: [address] [place] [address] Performed By: #### 3 3762-6, LIPNF, 2777-1, 72000-4 ####[facility] LABCLIA [id number] [place] [id number] [place] Urea nitrogen [Mass/Vol] 23 mg/dL High 7-21 [facility] Comment on above: Order Comment: Speci men Type: BLOOD SPECIMENOrdering Facility: [facility] Address: [address] [place] [address] Performed By: #### 3 3762-6, LIPNF, 2777-1, 74908-7 ####[facility] LABCLIA [id number] [place] [address] [place] CBC W Auto Differential pane l (Bld)on 08-16-2024 Basophils (Bld) [#/Vol] 0.07 10*3/uL Normal <0.11 [facility] Comment on above: Order Comment: Speci men Type: BLOOD SPECIMENOrdering Facility: [facility] Address: [address] [place] [address] Performed By: #### 5 7021-8 ####[facility] LABCLIA [id number] [place] [address] [place] Basophils/100 WBC (Bld) 0.8 % Normal [facility] Comment on above: Order Comment: Speci men Type: BLOOD SPECIMENOrdering Facility: [facility] Address: [address] [place] [address] Performed By: #### 5 7021-8 ####[facility] LABCLIA [id number] [place] [address] [place] Differential cell count method Nom (Bld) Auto Normal [facility] Comment on above: Order Comment: Speci men Type: BLOOD SPECIMENOrdering Facility: [facility] Address: [address] [place] [address] Performed By: #### 5 7021-8 ####[facility] LABCLIA [id number] [place] [address] [place] Eosinophils (Bld) [#/Vol] 0.12 10*3/uL Normal <0.46 [facility] Comment on above: Order Comment: Speci men Type: BLOOD SPECIMENOrdering Facility: [facility] Address: [address] [place] [address] Performed By: #### 5 7021-8 ####[facility] LABCLIA [id number] [place] [address] [place] Eosinophils/100 WBC (Bld) 1.4 % Normal [facility] Comment on above: Order Comment: Speci men Type: BLOOD SPECIMENOrdering Facility: [facility] Address: [address] [place] [address] Performed By: #### 5 7021-8 ####[facility] LABCLIA [id number] [place] [address] [place] Erythrocyte distribution width (RBC) [Ratio] 14.6 % Normal 11.5-15.0 [facility] Comment on above: Order Comment: Speci men Type: BLOOD SPECIMENOrdering Facility: [facility] Address: [address] [place] [address] Performed By: #### 5 7021-8 ####[facility] LABIA [id number] [place] [address] [place] Hematocrit (Bld) [Volume fraction] 39.1 % Normal 36.0-46.0 [facility] Comment on above: Order Comment: Speci men Type: BLOOD SPECIMENOrdering Facility: [facility] Address: [address] [place] [address] Performed By: #### 5 7021-8 ####[facility] LABCLIA [id number] [place] [address] [place] Hemoglobin (Bld) [Mass/Vol] 12.4 g/dL Normal 11.5-15.5 [facility] Comment on above: Order Comment: Speci men Type: BLOOD SPECIMENOrdering Facility: [facility] Address: [address] [place] [address] Performed By: #### 5 7021-8 ####[facility] LABCLIA [id number] [address] [address] [place] Immature granulocytes (Bld) [#/Vol] 10*3/uL Normal <0.10 [facility] Comment on above: Order Comment: Speci men Type: BLOOD SPECIMENOrdering Facility: [facility] Address: [address] [place] [address] Performed By: #### 5 7021-8 ####[facility] LABCLIA [id number] [place] [address] [place] Immature granulocytes/100 WBC (Bld) 0.2 % Normal [facility] Comment on above: Order Comment: Speci men Type: BLOOD SPECIMENOrdering Facility: [facility] Address: [address] [place] [address] Performed By: #### 5 7021-8 ####[facility] LABCLIA [id number] [place] [address] [place] Lymphocytes (Bld) [#/Vol] 2.17 10*3/uL Normal 1.00-4.00 [facility] Comment on above: Order Comment: Speci men Type: BLOOD SPECIMENOrdering Facility: [facility] Address: [address] [place] [address] Performed By: #### 5 7021-8 ####[facility] LABCLIA [id number] [place] [address] [place] Lymphocytes/100 WBC (Bld) 24.5 % Normal [facility] Comment on above: Order Comment: Speci men Type: BLOOD SPECIMENOrdering Facility: [facility] Address: [address] [place] [address] Performed By: #### 5 7021-8 ####[facility] LABCLIA [id number] [place] [id number] [place] MCH (RBC) [Entitic mass] 30.0 pg Normal 26.0-34.0 [facility] Comment on above: Order Comment: Speci men Type: BLOOD SPECIMENOrdering Facility: [facility] Address: [address] [place] [address] Performed By: #### 5 7021-8 ####[facility] LABCLIA [id number] [place] [address] [place] MCHC (RBC) [Mass/Vol] 31.7 g/dL Normal 30.5-36.0 [facility] Comment on above: Order Comment: Speci men Type: BLOOD SPECIMENOrdering Facility: [facility] Address: [address] [place] [address] Performed By: #### 5 7021-8 ####[facility] LABCLIA [id number] [place] [address] [place] MCV (RBC) [Entitic vol] 94.7 fL Normal 80.0-100.0 [facility] Comment on above: Order Comment: Speci men Type: BLOOD SPECIMENOrdering Facility: [facility] Address: [address] [place] [address] Performed By: #### 5 7021-8 ####[facility] LABIA [id number] [place] [address] [place] Monocytes (Bld) [#/Vol] 0.72 10*3/uL Normal <0.87 [facility] Comment on above: Order Comment: Speci men Type: BLOOD SPECIMENOrdering Facility: [facility] Address: [address] [place] [address] Performed By: #### 5 7021-8 ####[facility] LABCLIA [id number] [place] [address] [place] Monocytes/100 WBC (Bld) 8.1 % Normal [facility] Comment on above: Order Comment: Speci men Type: BLOOD SPECIMENOrdering Facility: [facility] Address: [address] [place] [address] Performed By: #### 5 7021-8 ####[facility] LABCLIA [id number] [address] [address] [place] Neutrophils (Bld) [#/Vol] 5.77 10*3/uL Normal 1.45-7.50 [facility] Comment on above: Order Comment: Speci men Type: BLOOD SPECIMENOrdering Facility: [facility] Address: [address] [place] [address] Performed By: #### 5 7021-8 ####[facility] LABCLIA [id number] [place] [address] [place] Neutrophils/100 WBC (Bld) 65.0 % Normal [facility] Comment on above: Order Comment: Speci men Type: BLOOD SPECIMENOrdering Facility: [facility] Address: [address] [place] [address] Performed By: #### 5 7021-8 ####[facility] LABCLIA [id number] [place] [address] [place] Nucleated RBC (Bld) [#/Vol] 10*3/uL Normal <0.01 [facility] Comment on above: Order Comment: Speci men Type: BLOOD SPECIMENOrdering Facility: [facility] Address: [address] [place] [address] Performed By: #### 5 7021-8 ####[facility] LABCLIA [id number] [place] [address] [place] Nucleated RBC/100 WBC (Bld) [Ratio] 0.0 /100 WBC Normal [facility] Comment on above: Order Comment: Speci men Type: BLOOD SPECIMENOrdering Facility: [facility] Address: [address] [place] [address] Performed By: #### 5 7021-8 ####[facility] LABCLIA [id number] [place] [id number] [place] Platelet mean volume (Bld) [Entitic vol] 10.7 fL Normal 9.0-12.7 [facility] Comment on above: Order Comment: Speci men Type: BLOOD SPECIMENOrdering Facility: [facility] Address: [address] [place] [address] Performed By: #### 5 7021-8 ####[facility] LABIA [id number] [place] [address] [place] Platelets (Bld) [#/Vol] 183 10*3/uL Normal 150-400 [facility] Comment on above: Order Comment: Speci men Type: BLOOD SPECIMENOrdering Facility: [facility] Address: [address] [place] [address] Result Comment: No c lot detected. Performed By: #### 5 7021-8 ####[facility] [id number] [place] [address] [place] RBC (Bld) [#/Vol] 4.13 10*6/uL Normal 3.90-5.20 [facility] Comment on above: Order Comment: Speci men Type: BLOOD SPECIMENOrdering Facility: [facility] Address: [address] [place] [address] Performed By: #### 5 7021-8 ####[facility] [id number] [place] [address] [place] WBC (Bld) [#/Vol] 8.87 10*3/uL Normal 3.70-11.00 [facility] Comment on above: Order Comment: Speci men Type: BLOOD SPECIMENOrdering Facility: [facility] Address: [address] [place] [address] Performed By: #### 5 7021-8 ####[facility] LABIA [id number] [place] [address] [place] [facility] CBC W AUTO DIFF BLDon Basophils/100 WBC (Bld) 0.8 % [facility] BASOPHILS # BLD AUTO 0.07 NINF [facility] DIFFERENTIAL METHOD BLD Auto [facility] EOSINOPHIL # BLD AUTO 0.12 [facility] LYMPHOCYTES # BLD AUTO 2.17 [facility] MONOCYTES # BLD AUTO 0.72 [facility] NEUTROPHILS # BLD AUTO 5.77 [facility] NRBC # BLD AUTO <0.01 [facility] NRBC/100 WBC BLD-RTO 0 /[address] [facility] PLATELET # BLD AUTO 183 [facility] Comment on above: No clot detected. [facility] PMV BLD AUTO 10.7 fL 9.0 - 12.[address] [facility] WBC # BLD AUTO 8.87 [facility] Eosinophils/100 WBC (Bld) 1.4 % [facility] Erythrocyte distribution width (RBC) [Ratio] 14.6 % 11.5 - 15.0 % [facility] Hematocrit (Bld) [Volume fraction] 39.1 % 36.0 - 46.0 % [facility] Hemoglobin (Bld) [Mass/Vol] 12.4 g/dL 11.5 - 15.5 g/dL [facility] IMM GRANULOCYTES # BLD AUTO <0.03 [facility] IMM GRANULOCYTES/LEUK NFR BLD AUTO 0.2 % [facility] Lymphocytes/100 WBC (Bld) 24.5 % [facility] MCH (RBC) [Entitic mass] 30 pg 26.0 - 34.[address] [facility] MCHC (RBC) [Mass/Vol] 31.7 g/dL 30.5 - 36.0 g/dL [facility] MCV (RBC) [Entitic vol] 94.7 fL 80.0 - 100.[address] [facility] Monocytes/100 WBC (Bld) 8.1 % [facility] Neutrophils/100 WBC (Bld) 65 % [facility] RBC (Bld) [#/Vol] 4.13 10*6/uL 3.90 - 5.2 0 m/uL [facility] Specimen Type: BLOOD SPECIMEN Ordering [facility] Address: [address] [place], [place] [address] Original Ordering Provider: CONCHA RIVAS [facility] LIPID PANEL, NONFASTINGon Cholesterol [Mass/Vol] 121 mg/dL Normal <200 [facility] Comment on above: Order Comment: Speci men Type: BLOOD SPECIMENOrdering Facility: [facility] Address: [address] [place] [address] Result Comment: <200 mg/dL, Desirable 200-239 mg/dL, Borderline high >239 mg/dL, High Performed By: #### 3 3762-6, LIPNF, 2776-1, 07816-1 ####[facility] LABCLIA [id number] [place] [address] [place] HDL CHOLESTEROL, NF 58 mg/dL Normal >39 [facility] Comment on above: Order Comment: Speci men Type: BLOOD SPECIMENOrdering Facility: [facility] Address: [address] [place] [address] Result Comment: 40-5 9 mg/dL, Acceptable >59 mg/dL, High: Negative risk factor for coronary heart disease <40 mg/dL, Low: Positive risk factor for coronary heart disease Performed By: #### 3 3762-6, LIPNF, 2776-, 38579-8 ####[facility] LABCLIA [id number] [address], [address] OF [place] LDL CHOLESTEROL CALCULATED, NF 45 mg/dL Normal <100 [facility] Comment on above: Order Comment: Speci men Type: BLOOD SPECIMENOrdering Facility: [facility] Address: [address] [place] [address] Result Comment: <100 mg/dL, Optimal 100-129 mg/dL, Near optimal/above optimal 130-159 mg/dL, Borderline high 160-189 mg/dL, High >189 mg/dL, Very high Secondary prevention optimal LDL Cholesterol levels are recommended to be <70 mg/dL LDL cholesterol is calculated using the Nur-NIH equation. Performed By: #### 3 3762-6, LIPNF, 2776-, 11858-3 ####[facility] LABCLIA [id number] [address] [place] [address] [place] LDL/HDL RATIO, NF 0.78 mg/dL Normal <2.54 [facility] Comment on above: Order Comment: Speci men Type: BLOOD SPECIMENOrdering Facility: [facility] Address: [address] [place] [address] Result Comment: Donna hawkins: 1. National Cholesterol Education Program ATP III Guideline At-A-Glance Quick Desk Reference: National Heart, Lung, and Blood [place]. National Institutes of Health. 2001: NIH Publication No. 01-3305. 2. An International Atherosclerosis Society position paper: global recommendations for the management of dyslipidemia: executive summary, Atherosclerosis. 2014: 232(2):410-413. Performed By: #### 3 3762-6, LIPNF, 7-1, 84838-3 ####[facility] LABCLIA [id number] [place] [id number] [place] NON HDL CHOL, NF 63 mg/dL Normal <130 [facility] Comment on above: Order Comment: [place] andrew Type: BLOOD SPECIMENOrdering Facility: [facility] Address: [address] [place] [address] Result Comment: <130 mg/dL, Optimal 130-159 mg/dL, Near optimal/above optimal 160-189 mg/dL, Borderline high 190-219 mg/dL, High >219 mg/dL, Very high Secondary prevention optimal non HDL Cholesterol levels are recommended to be <100 mg/dL Performed By: #### 3 3762-6, LIPNF, 2776-1, 85413-9 ####[facility] LABCLIA [id number] [place] [id number] [place] T CHOL/HDL RATIO NF 2.09 mg/dL Normal <5.10 [facility] Comment on above: Order Comment: [place] andrew Type: BLOOD SPECIMENOrdering Facility: [facility] Address: [address] [place] [address] Performed By: #### 3 3762-6, LIPNF, 7-1, 81263-6 ####[facility] LABCLIA [id number] [address] [address] [place] TRIGLYCERIDES, NF 95 mg/dL Normal <150 [facility] Comment on above: Order Comment: Speci men Type: BLOOD SPECIMENOrdering Facility: [facility] Address: [address] [place] [address] Result Comment: <150 mg/dL, Normal 150-199 mg/dL, Borderline high 200-499 mg/dL, High >499 mg/dL, Very high Performed By: #### 3 3762-6, LIPNF, 7-1, 70356-7 ####[facility] LABCLIA [id number] [place] [address] [place] VLDL CHOLESTEROL, NF 13 mg/dL Normal <30 [facility] Comment on above: Order Comment: Speci men Type: BLOOD SPECIMENOrdering Facility: [facility] Address: [address] [place] [address] Performed By: #### 3 3762-6, LIPNF, 7-1, 76147-2 ####[facility] LABCLIA [id number] [place] [address] [place] NT-proBNP SerPl-ncon 05- Natriuretic peptide.B prohormone N-Terminal [Mass/Vol] 1045 pg/mL High <450 [facility] Comment on above: Order Comment: Speci men Type: BLOOD SPECIMENOrdering Facility: [facility] Address: [address] [place] [address] Performed By: #### 3 3762-6, LIPNF, 2776-1, 27118-6 ####[facility] LABCLIA [id number] [place] [address] [place] PTH-Intact SerPl-mCncon 05-0 Parathyrin.intact [Mass/Vol] 59 pg/mL Normal 15-65 [facility] Comment on above: Order Comment: Speci men Type: BLOOD SPECIMENOrdering Facility: [facility] Address: [address] [place] [address] Performed By: #### 2 731-8, 1751-7 ####[facility] LABCLIA [id number] [address] [address] [place] Phosphate SerPl-mCncon 08-16 Phosphate [Mass/Vol] 3.3 mg/dL Normal 2.7-4.8 [facility] Comment on above: Order Comment: Speci men Type: BLOOD SPECIMENOrdering Facility: [facility] Address: [address] [place] [address] Performed By: #### 3 3762-6, LIPNF, 2777-1, 25687-9 ####[facility] LABIA [id number] [place] [address] [place] BASIC METABOLIC PANELon 05-0 Anion gap [Moles/Vol] 6 mmol/L Normal 5-15 [facility] Comment on above: Performed By: #### B MP #### [facility] ([address] [address] VIR Calcium [Mass/Vol] 9.1 mg/dL Normal 8.5-10.5 [facility] Comment on above: Performed By: #### B MP #### [facility] ([address] [address] VIR Chloride [Moles/Vol] 109 mmol/L Normal 98-109 [facility] Comment on above: Performed By: #### B MP #### [facility] ([address] [address] VIR CO2 [Moles/Vol] 26 mmol/L Normal 22-32 [facility] Comment on above: Performed By: #### B MP #### [facility] ([address] [place] [address] VIR Creatinine [Mass/Vol] 1.24 mg/dL High 0.40-1.00 [facility] Comment on above: Result Comment: METH OD TRACEABLE TO IDMS STANDARD Performed By: #### B MP #### [facility] ([address] [address] VIR GFR/1.73 sq M.predicted among non-blacks MDRD (S/P/Bld) [Vol rate/Area] 45 mL/min/{1.73_m2} Low >=60 [facility] Comment on above: Result Comment: eGFR not reported due to non-numeric value for Creatinine. Reported eGFR is based on the CKD-EPI 2020 equation that does not use a race coefficient. Performed By: #### B MP #### [facility] ([address] [place] [address] VIR Glucose [Mass/Vol] 94 mg/dL Normal 65-99 [facility] Comment on above: Performed By: #### B MP #### [facility] ([address] [place] [address] VIR Potassium [Moles/Vol] 4.6 mmol/L Normal 3.5-5.0 [facility] Comment on above: Performed By: #### B MP #### [facility] ([address] [place] [address] VIR Sodium [Moles/Vol] 141 mmol/L Normal 134-146 [facility] Comment on above: Performed By: #### B MP #### [facility] ([address] [place] [address] VIR Urea nitrogen [Mass/Vol] 25 mg/dL Normal 5-27 [facility] Comment on above: Performed By: #### B MP #### [facility] ([address] [place] [address] VIR Basic metabolic 1998 panelon 08-14-2024 Anion gap [Moles/Vol] 6 mmol/L 5 - 15 mmol/L [facility] Calcium [Mass/Vol] 9.1 mg/dL 8.5 - 10. 5 mg/dL [facility] Chloride [Moles/Vol] 109 mmol/L 98 - 10 9 mmol/L [facility] CO2 [Moles/Vol] 26 mmol/L 22 - 32 mmol/L [facility] Creatine [Mass/Vol] 1.24 mg/dL High 0.40 - 1 .00 mg/dL [facility] Comment on above: METHOD TRACEABLE TO IDMS STANDARD GFR/1.73 sq M.predicted among non-blacks MDRD (S/P/Bld) [Vol rate/Area] 45 mL/min/{1.73_m2} Low - PINF [facility] Comment on above: eGFR not reported du e to non-numeric value for Creatinine. Reported eGFR is based on the CKD-EPI 2020 equation that does not use a race coefficient. PERFORMED AT [address] [place] [address] Glucose [Mass/Vol] 94 mg/dL 65 - 99 mg/dL [facility] Interpretation and review of laboratory results Abnormal [facility] Potassium [Moles/Vol] 4.6 mmol/L 3.5 - 5.0 mmol/L [facility] Sodium [Moles/Vol] 141 mmol/L 134 - 146 mmol/L [facility] Urea nitrogen [Mass/Vol] 25 mg/dL 5 - 27 mg/dL [facility] CNOVon 06-26-2024 CNOV Office Visit (CACHFV ) ARLETH ELIAS ([id number]) 1945 F Date Time Provider Department 06/26/24 2:00 PM STANLEY STRANGE CACHFV During your visit today, we recorded the following information about you: Pulse Blood pressure Weight 82/minute 145/82 71.3 kg Satnley Strange MD 06/26/2024 2:33 PM Addendum [facility] [place] [facility] SECTION OF HEART FAILURE and CARDIAC TRANSPLANT MEDICINE [facility] OUTPATIENT VISIT DATE June 26, 2024 OUTPATIENT VISIT TYPE Established PRIMARY CARE PHYSICIAN: Radha Little, INTERNET MANAGER ([facility]) [address] 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 Patel. Established with mo May 2023 She has a hx of NICM since [...] lesion, + iFR s/p PCI with TRACY. Interval History: Arleth Elias was last seen in this clinic on 12/28/23. Since the last visit Arleth Elias, followed with Dr. Patel and was doing well. Today comes in by herself and reports feeling well. 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 No chest pain/pressure/discomf ort, no orthopnea, no PND, no LE edema, no dyspnea on exertion, no syncope/ No LH. 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 Echo 04/10/24 Echo: LVEF 32%, LV mild dilated, RVSP ?RVSF wnl, Echo 10/04/23: LVEF 25%, LVEDD 5.4cm. RVSF wnl S/p TAIL DOGGER-D 07/02/23 Echo 05/25/23: LVEF 20%, LVEDd 6.1cm, severe MR/TR, IVC dilated. Echo 02/2023: LVEF 30%, RV wnl. LVEdd 5.8cm. CAD s/p PCI to mLAD with TRACY 02/2023 PVD s/p right axillobifemoral bypass 12/2019- seeing Dr. Arroyo DM: HTN PAST MEDICAL HISTORY Diagnosis Date Cardiomyopathy (HCC) [...] year around age 36 Vaping Use Vaping status: Never Used Substance Use Topics Alcohol use: Not Currently [...] 1 tablet by mouth daily with breakfast. semaglutide (OZEMPIC) 2 mg/dose (8 mg/3 mL) pen injector Inject 2 mg subcutaneously one time a week. ergocalciferol 50,000 unit capsule (VITAMIN D2, DRISDOL) Take 1 capsule by mouth one time a week. rosuvastatin (CRESTOR) 40 mg tablet Take 1 tablet by mouth daily at bedtime. valsartan (DIOVAN) 40 mg tablet Take 0.5 tablets by mouth once daily. clopidogrel (PLAVIX) 75 mg tablet Take 1 tablet by mouth every 24 hours. spironolactone (ALDACTONE) 25 mg tablet Take 0.5 tablets by mouth once daily. omeprazole (PRILOSEC) 40 mg capsule Take 40 mg by mouth two times a day. Pt confirmed she is taking this medication magnesium oxide (MAG-OX) 400 mg (241.3 mg magnesium) tablet TAKE 1 TABLET BY MOUTH TWICE DAILY. TAKE SEPERATELY FROM DOXYCYCLINE aspirin, enteric coated (ASPIRIN, ENTERIC COATED) 81 mg EC tablet Take 81 mg by mouth once daily. allopurinol (ZYLOPRIM) 100 mg tablet Take 100 mg by mouth once daily. metoprolol succinate ER (TOPROL XL) 50 mg 24 hr tablet Take 1 tablet by mouth two times a day. furosemide (LASIX) 20 mg tablet Take 1 tablet by mouth once daily as needed. diazePAM (VALIUM) 2 mg tablet blood sugar diagnostic (BLOOD GLUCOSE TEST) test strip Use as instructed to monitor glucose. One touch ultra verio test strips. Blood-Glucose Sensor (FREESTYLE LEEANN 3 SENSOR) mauricio Use new sensor every 14 days to monitor blood glucose. Insulin [place], D (more content not included)... Normal [facility] [id number] 06-26-2024 ECG01 Ventricular Rate : 7 7 BPM Atrial Rate : 77 BPM P-R Interval : 176 ms QRS Duration : 96 ms Q-T Interval : 424 ms QTC Calculation(Bazett) : 479 ms Calculated P [place] : 49 degrees Calculated R [place] : 106 degrees Calculated T [place] : 45 degrees ATRIAL-SENSED VENTRICULAR-PACED RHYTHM WITH OCCASIONAL SINUS COMPLEXES ABNORMAL ECG Confirmed by CHALO PATEL DO ([id number]) on 07/02/2024 12:24:53 PM NAME : ARLETH ELIAS PID : [id number] : 1945 Gender : Female Race : ORD : Procedure Date : Jun 26 2024 14:06:34 Edit Date : Jul 02 2024 12:24:57 Diagnosis: ATRIAL-SENSED VENTRICULAR-PACED RHYTHM WITH OCCASIONAL SINUS COMPLEXES ABNORMAL ECG Confirmed by CHALO PATEL DO ([id number]) on 07/02/2024 12:24:53 PM Test Reason : Location : 225 : [facility] Overread By : CHALO PATEL DO Edited By : CHALO PATEL DO Referred By : RADHA LITTLE Acquired by : liliana, Sarah [facility] CBC W Auto Differential pane l (Bld)on 05-22-2024 Basophils (Bld) [#/Vol] 0.08 10*3/uL Normal <0.11 [facility] Comment on above: Order Comment: Speci men Type: BLOOD SPECIMEN [facility] Address: [address] [place] [address] Performed By: #### 5 7021-8 #### [facility] CLIA [id number] [address] [place] [address] Basophils/100 WBC (Bld) 1.0 % Normal [facility] Comment on above: Order Comment: Speci men Type: BLOOD SPECIMEN Ordering Facility: [facility] Address: [address] [place] [address] Performed By: #### 5 7021-8 #### [facility] CLIA [id number] [address] [place] [address] Differential cell count method Nom (Bld) Auto Normal [facility] Comment on above: Order Comment: Speci men Type: BLOOD SPECIMEN Ordering Facility: [facility] Address: [address] [place] [address] Performed By: #### 5 7021-8 #### [facility] CLIA [id number] [address] [place] [address] Eosinophils (Bld) [#/Vol] 0.12 10*3/uL Normal <0.46 [facility] Comment on above: Order Comment: Speci men Type: BLOOD SPECIMEN [facility]ing Facility: [facility] Address: [address] [place] [address] Performed By: #### 5 7021-8 #### [facility] CLIA [id number] [address] [place] [address] Eosinophils/100 WBC (Bld) 1.6 % Normal [facility] Comment on above: Order Comment: Speci men Type: BLOOD SPECIMEN Ordering Facility: [facility] Address: [address] [place] [address] Performed By: #### 5 7021-8 #### [facility] CLIA [id number] [address] [place] [address] Erythrocyte distribution width (RBC) [Ratio] 15.6 % High 11.5-15.0 [facility] Comment on above: Order Comment: Speci men Type: BLOOD SPECIMEN Ordering Facility: [facility] Address: [address] [place] [address] Performed By: #### 5 7021-8 #### [facility] CLIA [id number] [address] [place] [address] Hematocrit (Bld) [Volume fraction] 37.2 % Normal 36.0-46.0 [facility] Comment on above: Order Comment: Speci men Type: BLOOD SPECIMEN Ordering Facility: [facility] Address: [address] [place] [address] Performed By: #### 5 7021-8 #### [facility] CLIA [id number] [address] [place] [address] Hemoglobin (Bld) [Mass/Vol] 12.4 g/dL Normal 11.5-15.5 [facility] Comment on above: Order Comment: Speci men Type: BLOOD SPECIMEN Ordering Facility: [facility] Address: [address] [place] [address] Performed By: #### 5 7021-8 #### [facility] CLIA [id number] [address] [place] [address] Immature granulocytes (Bld) [#/Vol] 10*3/uL Normal <0.10 [facility] Comment on above: Order Comment: Speci men Type: BLOOD SPECIMEN Ordering Facility: [facility] Address: [address] [place] [address] Performed By: #### 5 7021-8 #### [facility] CLIA [id number] [address] [place] [address] Immature granulocytes/100 WBC (Bld) 0.3 % Normal [facility] Comment on above: Order Comment: Speci men Type: BLOOD SPECIMEN Ordering Facility: [facility] Address: [address] [place] [address] Performed By: #### 5 7021-8 #### [facility] CLIA [id number] [address] [place] [address] Lymphocytes (Bld) [#/Vol] 2.08 10*3/uL Normal 1.00-4.00 [facility] Comment on above: Order Comment: Speci men Type: BLOOD SPECIMEN Ordering Facility: [facility] Address: [address] [place] [address] Performed By: #### 5 7021-8 #### [facility] CLIA [id number] [address] [place] [address] 40360 Lymphocytes/100 WBC (Bld) 27.3 % Normal [facility] Comment on above: Order Comment: Speci men Type: BLOOD SPECIMEN Ordering Facility: [facility] Address: [address] [place], [place] [address] Performed By: #### 5 7021-8 #### [facility] CLIA [id number] [address] [place] [address] 59108 MCH (RBC) [Entitic mass] 30.2 pg Normal 26.0-34.0 [facility] Comment on above: Order Comment: Speci men Type: BLOOD SPECIMEN Ordering Facility: [facility] Address: [address] [place] [address] Performed By: #### 5 7021-8 #### [facility] CLIA [id number] [address] [place] [address] 56471 MCHC (RBC) [Mass/Vol] 33.3 g/dL Normal 30.5-36.0 [facility] Comment on above: Order Comment: Speci men Type: BLOOD SPECIMEN Ordering Facility: [facility] Address: [address] [place] [address] Performed By: #### 5 7021-8 #### [facility] CLIA [id number] [address] [place] [address] 56453 MCV (RBC) [Entitic vol] 90.7 fL Normal 80.0-100.0 [facility] Comment on above: Order Comment: Speci men Type: BLOOD SPECIMEN Ordering Facility: [facility] Address: [address] [place] [address] Performed By: #### 5 7021-8 #### [facility] CLIA [id number] [address] [place] [address] 32241 Monocytes (Bld) [#/Vol] 0.59 10*3/uL Normal <0.87 [facility] Comment on above: Order Comment: Speci men Type: BLOOD SPECIMEN Ordering Facility: [facility] Address: [address] [place] [address] Performed By: #### 5 7021-8 #### [facility] CLIA [id number] [address] [place] [address] Monocytes/100 WBC (Bld) 7.7 % Normal [facility] Comment on above: Order Comment: Speci men Type: BLOOD SPECIMEN Ordering Facility: [facility] Address: [address] [place] [address] Performed By: #### 5 7021-8 #### [facility] CLIA [id number] [address] [place] [address] 25709 Neutrophils (Bld) [#/Vol] 4.73 10*3/uL Normal 1.45-7.50 [facility] Comment on above: Order Comment: Speci men Type: BLOOD SPECIMEN Ordering Facility: [facility] Address: [address] [place] [address] Performed By: #### 5 7021-8 #### [facility] CLIA [id number] [address] [place] [address] 21156 Neutrophils/100 WBC (Bld) 62.1 % Normal [facility] Comment on above: Order Comment: Speci men Type: BLOOD SPECIMEN Ordering Facility: [facility] Address: [address] [place] [address] Performed By: #### 5 7021-8 #### [facility] CLIA [id number] [address] [place] [address] 47210 Nucleated RBC (Bld) [#/Vol] 10*3/uL Normal <0.01 [facility] Comment on above: Order Comment: Speci men Type: BLOOD SPECIMEN Ordering Facility: [facility] Address: [address] [place] [address] Performed By: #### 5 7021-8 #### [facility] CLIA [id number] [address] [place] [address] 34930 Nucleated RBC/100 WBC (Bld) [Ratio] 0.0 /100 WBC Normal [facility] Comment on above: Order Comment: Speci men Type: BLOOD SPECIMEN Ordering Facility: [facility] Address: [address] [place] [address] Performed By: #### 5 7021-8 #### [facility] CLIA [id number] [address] [place] [address] 04271 Platelet mean volume (Bld) [Entitic vol] 10.3 fL Normal 9.0-12.7 [facility] Comment on above: Order Comment: Speci men Type: BLOOD SPECIMEN Ordering Facility: [facility] Address: [address] [place], [place] [address] Performed By: #### 5 7021-8 #### [facility] CLIA [id number] [address] [place] [address] 27193 Platelets (Bld) [#/Vol] 163 10*3/uL Normal 150-400 [facility] Comment on above: Order Comment: Speci men Type: BLOOD SPECIMEN Ordering Facility: [facility] Address: [address] [place] [address] Performed By: #### 5 7021-8 #### [facility] CLIA [id number] [address] [place] [address] 82085 RBC (Bld) [#/Vol] 4.10 10*6/uL Normal 3.90-5.20 [facility] Comment on above: Order Comment: Speci men Type: BLOOD SPECIMEN Ordering Facility: [facility] Address: [address] [place] [address] Performed By: #### 5 7021-8 #### [facility] CLIA [id number] [address] [place] [address] 77955 WBC (Bld) [#/Vol] 7.62 10*3/uL Normal 3.70-11.00 [facility] Comment on above: Order Comment: Speci men Type: BLOOD SPECIMEN Ordering Facility: [facility] Address: [address] [place] [address] 12856 Performed By: #### 5 7021-8 #### [facility] CLIA [id number] [address] [place] [address] [facility] CBC W AUTO DIFF BLDon Basophils/100 WBC (Bld) 1 % [facility] BASOPHILS # BLD AUTO 0.08 [facility] DIFFERENTIAL METHOD BLD Auto [facility] EOSINOPHIL # BLD AUTO 0.12 [facility] LYMPHOCYTES # BLD AUTO 2.08 [facility] MONOCYTES # BLD AUTO 0.59 [facility] NEUTROPHILS # BLD AUTO 4.73 [facility] NRBC # BLD AUTO <0.01 [facility] NRBC/100 WBC BLD-RTO 0 /[address] [facility] PLATELET # BLD AUTO 163 [facility] PMV BLD AUTO 10.3 fL 9.0 - 12.[address] [facility] WBC # BLD AUTO 7.62 [facility] Eosinophils/100 WBC (Bld) 1.6 % [facility] Erythrocyte distribution width (RBC) [Ratio] 15.6 % High 11.5 - 15.0 % [facility] Hematocrit (Bld) [Volume fraction] 37.2 % 36.0 - 46.0 % [facility] Hemoglobin (Bld) [Mass/Vol] 12.4 g/dL 11.5 - 15.5 g/dL [facility] IMM GRANULOCYTES # BLD AUTO <0.03 [facility] IMM GRANULOCYTES/LEUK NFR BLD AUTO 0.3 % [facility] Interpretation and review of laboratory results Abnormal [facility] Lymphocytes/100 WBC (Bld) 27.3 % [facility] MCH (RBC) [Entitic mass] 30.2 pg 26.0 - 34.[address] [facility] MCHC (RBC) [Mass/Vol] 33.3 g/dL 30.5 - 36.0 g/dL [facility] MCV (RBC) [Entitic vol] 90.7 fL 80.0 - 100.[address] [facility] Monocytes/100 WBC (Bld) 7.7 % [facility] Neutrophils/100 WBC (Bld) 62.1 % [facility] RBC (Bld) [#/Vol] 4.1 10*6/uL 3.90 - 5.2 0 m/uL [facility] Specimen Type: BLOOD SPECIMEN Ordering Facility: [facility] Address: [address] [place], [place] [address] Original Ordering Provider: CONCHA PARIS [facility] Renal function 2000 panelon 05-22-2024 Albumin [Mass/Vol] 4.3 g/dL Normal 3.9-4.9 [facility] Comment on above: Order Comment: Speci men Type: BLOOD SPECIMEN Ordering Facility: [facility] Address: [address] [place] [address] Performed By: #### 2 777-1, 86829-8, 1750-10 #### [facility] CLIA [id number] [address] [place] [address] Anion gap [Moles/Vol] 10 mmol/L Normal 8-15 [facility] Comment on above: Order Comment: Speci men Type: BLOOD SPECIMEN Ordering Facility: [facility] Address: [address] [place] [address] Performed By: #### 2 777-1, , 1750-10 #### [facility] CLIA [id number] [address] [place] [address] 34424 Calcium [Mass/Vol] 9.8 mg/dL Normal 8.5-10.2 [facility] Comment on above: Order Comment: Speci men Type: BLOOD SPECIMEN Ordering Facility: [facility] Address: [address] [place] [address] Performed By: #### 2 777-1, 02997-2, 1750-10 #### [facility] CLIA [id number] [address] [place] [address] 27111 Chloride [Moles/Vol] 101 mmol/L Normal 98-107 [facility] Comment on above: Order Comment: Speci men Type: BLOOD SPECIMEN Ordering Facility: [facility] Address: [address] [place] [address] Performed By: #### 2 777-1, 68717-6, 1750-10 #### [facility] CLIA [id number] [address] [place] [address] 42658 CO2 [Moles/Vol] 27 mmol/L Normal 22-30 [facility] Comment on above: Order Comment: Speci men Type: BLOOD SPECIMEN Ordering Facility: [facility] Address: [address] [place], [place] [address] Performed By: #### 2 777-1, 55103-5, 1750-10 #### [facility] CLIA [id number] [address] [place] [address] 08019 Creatinine [Mass/Vol] 1.83 mg/dL High 0.58-0.96 [facility] Comment on above: Order Comment: Speci men Type: BLOOD SPECIMEN Ordering Facility: [facility] Address: [address] [place] [address] Performed By: #### 2 777-1, 32173-1, 1750-10 #### [facility] CLIA [id number] [address] [place] [address] 61058 Creatinine and Glomerular filtration rate.predicted panel (S/P/Bld) 28 mL/min/1.73m??? Low >=60 [facility] Comment on above: Order Comment: Speci men Type: BLOOD SPECIMEN Ordering Facility: [facility] Address: [address] [place] [address] Result Comment: Tanisha mated Glomerular Filtration Rate [...] reflect actual GFR. Performed By: #### 2 777-1, 04719-8, 1750-10 #### [facility] CLIA [id number] [address] [place] [address] 72916 Glucose [Mass/Vol] 186 mg/dL High 74-99 [facility] Comment on above: Order Comment: Speci men Type: BLOOD SPECIMEN Ordering Facility: [facility] Address: [address] [place], [place] [address] Result Comment: The [place] [employer] (ADA) provides guidance for cutoff [...] Standards of Medical Care in Diabetes 2016, [place] [employer]. Diabetes Care. 2016.39(Suppl 1). Performed By: #### 2 777-1, 86892-9, 1750-10 #### [facility] CLIA [id number] [address] [place] [address] 13753 Phosphate [Mass/Vol] 4.8 mg/dL Normal 2.7-4.8 [facility] Comment on above: Order Comment: Speci men Type: BLOOD SPECIMEN Ordering Facility: [facility] Address: [address] [place] [address] Performed By: #### 2 777-1, 24211-8, 1750-10 #### [facility] CLIA [id number] [address] [place] [address] 01307 Potassium [Moles/Vol] 4.9 mmol/L Normal 3.7-5.1 [facility] Comment on above: Order Comment: Speci men Type: BLOOD SPECIMEN Ordering Facility: [facility] Address: [address] [place] [address] Performed By: #### 2 777-1, 03546-6, 1750-10 #### [facility] CLIA [id number] [address] [place] [address] 20854 Sodium [Moles/Vol] 138 mmol/L Normal 136-144 [facility] Comment on above: Order Comment: Speci men Type: BLOOD SPECIMEN Ordering Facility: [facility] Address: [address] [place] [address] Performed By: #### 2 777-1, 66657-2, 1750-10 #### [facility] CLIA [id number] [address] [place] [address] 55270 Urea nitrogen [Mass/Vol] 40 mg/dL High 7-21 [facility] Comment on above: Order Comment: Speci men Type: BLOOD SPECIMEN Ordering Facility: [facility] Address: [address] [place] [address] Performed By: #### 2 777-1, , 1750-10 #### [facility] CLIA [id number] [address] [place] [address] 15523 Urinalysis complete panel (U )on 05-22-2024 BACTERIA UL >9821 High Negative [facility] Comment on above: Order Comment: Speci men Type: BLOOD SPECIMEN Ordering Facility: [facility] Address: [address] [place] [address] Performed By: #### 2 777-1, , 1750-10 #### [facility] CLIA [id number] [address] [place] [address] 46374 Bilirubin Ql (U) Negative Normal Negative [facility] Comment on above: Order Comment: Speci men Type: BLOOD SPECIMEN Ordering Facility: [facility] Address: [address] [place] [address] Performed By: #### 2 777-1, , 1750-10 #### [facility] CLIA [id number] [address] [place] [address] 13037 Clarity (Unsp spec) Cloudy Abnormal Clear [facility] Comment on above: Order Comment: Speci men Type: BLOOD SPECIMEN Ordering Facility: [facility] Address: [address] [place] [address] Performed By: #### 2 777-1, 26645-1, 1750-10 #### [facility] CLIA [id number] [address] [place] [address] 35800 Color (U) Yellow Normal Yellow [facility] Comment on above: Order Comment: Speci men Type: BLOOD SPECIMEN Ordering Facility: [facility] Address: [address] [place] [address] Performed By: #### 2 777-1, 71004-2, 1750-10 #### [facility] CLIA [id number] [address] [place] [address] 41791 Epithelial cells LM.HPF (Urine sed) [#/Area] Many Normal [facility] Comment on above: Order Comment: Speci men Type: BLOOD SPECIMEN Ordering Facility: [facility] Address: [address] [place] [address] Result Comment: Few Performed By: #### 2 777-1, 09391-5, 1750-10 #### [facility] CLIA [id number] [address] [place] [address] 12991 Glucose Test strip (U) [Mass/Vol] 3+ Abnormal Negative [facility] Comment on above: Order Comment: Speci men Type: BLOOD SPECIMEN Ordering Facility: [facility] Address: [address] [place] [address] 14933 Performed By: #### 2 777-1, , 1750-10 #### [facility] CLIA [id number] [address] [place] [address] 15140 Hemoglobin Ql (U) Negative Normal Negative [facility] Comment on above: Order Comment: Speci men Type: BLOOD SPECIMEN Ordering Facility: [facility] Address: [address] [place] [address]165 Performed By: #### 2 777-1, 23624-7, 1750-10 #### [facility] CLIA [id number] [address] [place] [address] 18180 Hyaline casts (Urine sed) [#/Area] 4-10 /LPF Abnormal 0 /LPF [facility] Comment on above: Order Comment: Speci men Type: BLOOD SPECIMEN Ordering Facility: [facility] Address: [address] [place] [address] 32877 Performed By: #### 2 777-1, 74536-7, 1750-10 #### [facility] CLIA [id number] [address] [place] [address] Ketones Ql (U) Negative Normal Negative [facility] Comment on above: Order Comment: Speci men Type: BLOOD SPECIMEN Ordering Facility: [facility] Address: [address] [place] [address] Performed By: #### 2 777-1, , 1750-10 #### [facility] CLIA [id number] [address] [place] [address] 22621 Leukocyte esterase Test strip Ql (U) 2+ Abnormal Negative [facility] Comment on above: Order Comment: Speci men Type: BLOOD SPECIMEN Ordering Facility: [facility] Address: [address] [place] [address] Performed By: #### 2 777-1, , 1750-10 #### [facility] CLIA [id number] [address] [place] [address] 05231 Nitrite Ql (U) Positive Abnormal Negative [facility] Comment on above: Order Comment: Speci men Type: BLOOD SPECIMEN Ordering Facility: [facility] Address: [address] [place] [address] Performed By: #### 2 777-1, , 1750-10 #### [facility] CLIA [id number] [address] [place] [address] 93816 pH (U) 6.0 [pH] Normal <8.5 [facility] Comment on above: Order Comment: Speci men Type: BLOOD SPECIMEN Ordering Facility: [facility] Address: [address] [place] [address] Performed By: #### 2 777-1, , 1750-10 #### [facility] CLIA [id number] [address] [place] [address] 07023 Protein (U) [Mass/Vol] 1+ Abnormal Negative [facility] Comment on above: Order Comment: Speci men Type: BLOOD SPECIMEN Ordering Facility: [facility] Address: [address] [place] [address] Performed By: #### 2 777-1, 01729-2, 1750-10 #### [facility] CLIA [id number] [address] [place] [address] 56274 RBC LM.HPF (Urine sed) [#/Area] 0-2 /HPF Normal 0-2 /HPF [facility] Comment on above: Order Comment: Speci men Type: BLOOD SPECIMEN Ordering Facility: [facility] Address: [address] [place] [address] Performed By: #### 2 777-1, 73045-5, 1750-10 #### [facility] CLIA [id number] [address] [place] [address] 09218 Specific gravity (U) [Rel density] 1.019 Normal 1.005-1.030 [facility] Comment on above: Order Comment: Speci men Type: BLOOD SPECIMEN Ordering Facility: [facility] Address: [address] [place] [address] Performed By: #### 2 777-1, , 1750-10 #### [facility] CLIA [id number] [address] [place] [address] 76566 Urobilinogen Ql (U) 0.2 EU/dL Normal 0.2-1.0 EU/dL [facility] Comment on above: Order Comment: Speci men Type: BLOOD SPECIMEN Ordering Facility: [facility] Address: [address] [place] [address] 33269 Performed By: #### 2 777-1, 09666-0, 1750-10 #### [facility] CLIA [id number] [address] [place] [address] 44322 WBC LM.HPF (Urine sed) [#/Area] /[HPF] Abnormal 0-5 /HPF [facility] Comment on above: Order Comment: Speci men Type: BLOOD SPECIMEN Ordering Facility: [facility] Address: [address] [place] [address] Performed By: #### 2 777-1, 54500-2, 1751-7 #### [facility] CLIA [id number] [address] [place] [address] Basic metabolic 2000 panelon 04-24-2024 Anion gap [Moles/Vol] 12 mmol/L Normal 8-15 [facility] Comment on above: Order Comment: Speci men Type: BLOOD SPECIMENOrdering Facility: [facility] Address: [address] [place] [address] Performed By: #### 2 4321-2 ####[facility] [id number] [place] [address] Calcium [Mass/Vol] 9.6 mg/dL Normal 8.5-10.2 [facility] Comment on above: Order Comment: Speci men Type: BLOOD SPECIMENOrdering Facility: [facility] Address: [address] [place] [address] Performed By: #### 2 4321-2 ####[facility] [id number] [place] [address] Chloride [Moles/Vol] 102 mmol/L Normal 98-107 [facility] Comment on above: Order Comment: Speci men Type: BLOOD SPECIMENOrdering Facility: [facility] Address: [address] [place] [address] Performed By: #### 2 4321-2 ####[facility] [id number] [place] [address] CO2 [Moles/Vol] 23 mmol/L Normal 22-30 [facility] Comment on above: Order Comment: Speci men Type: BLOOD SPECIMENOrdering Facility: [facility] Address: [address] [place] [address] Performed By: #### 2 4321-2 ####[facility] LAB[facility] [id number] [place] [address] Creatinine [Mass/Vol] 1.85 mg/dL High 0.58-0.96 [facility] Comment on above: Order Comment: [place] and[place] Type: BLOOD SPECIMENOrdering Facility: [facility] Address: [address] [place], [place] [address] Performed By: #### 2 4321-2 ####[facility] LAB[facility]IA [id number] [place] [address] Creatinine and Glomerular filtration rate.predicted panel (S/P/Bld) 28 mL/min/1.73m??? Low >=60 [facility] Comment on above: Order Comment: [place] and[place] Type: BLOOD SPECIMENOrdering Facility: [facility] Address: [address] [place] [address] Result Comment: Tanisha mated Glomerular Filtration Rate [...] actual GFR. Performed By: #### 2 4321-2 ####[facility] LAB[facility] [id number] [place] [address] Glucose [Mass/Vol] 111 mg/dL High 74-99 [facility] Comment on above: Order Comment: [place] and[place] Type: BLOOD SPECIMENOrdering Facility: [facility] Address: [address] [place], [place] [address] Result Comment: The [place] [employer] (ADA) provides guidance for cutoff [...] Standards of Medical Care in Diabetes 2016, [place] [employer]. Diabetes Care. 2016.39(Suppl 1). Performed By: #### 2 4321-2 ####[facility] LAB[facility] [id number] [place] [address] Potassium [Moles/Vol] 5.2 mmol/L High 3.7-5.1 [facility] Comment on above: Order Comment: Speci men Type: BLOOD SPECIMENOrdering Facility: [facility] Address: [address] [place] [address] Performed By: #### 2 4321-2 ####[facility] LAB[facility]IA [id number] [place] [address] Sodium [Moles/Vol] 137 mmol/L Normal 136-144 [facility] Comment on above: Order Comment: Speci men Type: BLOOD SPECIMENOrdering Facility: [facility] Address: [address] [place] [address] Performed By: #### 2 4321-2 ####[facility] LAB[facility]IA [id number] [place] [address] Urea nitrogen [Mass/Vol] 48 mg/dL High 7-21 [facility] Comment on above: Order Comment: Speci men Type: BLOOD SPECIMENOrdering Facility: [facility] Address: [address] [place] [address] Performed By: #### 2 4321-2 ####[facility] LAB[facility]IA [id number] [place] [address] [facility] BAS METAB 2000 PNL SERPL on 04-24-2024 Anion gap [Moles/Vol] 12 mmol/L 8 - 15 mmol/L [facility] Calcium [Mass/Vol] 9.6 mg/dL 8.5 - 10. 2 mg/dL [facility] Chloride [Moles/Vol] 102 mmol/L 98 - 10 7 mmol/L [facility] CO2 [Moles/Vol] 23 mmol/L 22 - 30 mmol/L [facility] Creatinine [Mass/Vol] 1.85 mg/dL High 0.58 - 0.96 mg/dL [facility] GFR/1.73 sq M.predicted CKD-EPI (S/P/Bld) [Vol rate/Area] 28 Low - PINF [facility] Comment on above: Estimated Glomerular Filtration Rate (eGFR) is calculated using the 2020 CKD-EPI creatinine equation. This equation utilizes serum creatinine, sex, and age as parameters. The creatinine assay has traceable calibration to isotope dilution-mass spectrometry. Refer to KDIGO guidelines for clinical interpretation. In patients with unstable renal function, e.g. those with acute kidney injury, the eGFR may not accurately reflect actual GFR. Glucose [Mass/Vol] 111 mg/dL High 74 - 99 mg/dL [facility] Comment on above: The [place] Diabete s Association (ADA) provides guidance for cutoff values [...] Standards of Medical Care in Diabetes 2016, [place] Diabetes Association. Diabetes Care. 2016.39(Suppl 1). Interpretation and review of laboratory results Abnormal [facility] Potassium [Moles/Vol] 5.2 mmol/L High 3.7 - 5.1 mmol/L [facility] Sodium [Moles/Vol] 137 mmol/L 136 - 144 mmol/L [facility] Urea nitrogen [Mass/Vol] 48 mg/dL High 7 - 21 mg/dL [facility] Specimen Type: BLOOD SPECIMEN Ordering Facility: [facility] Address: [address] [place] [address] Original Ordering Provider: CHALO RIVAS [facility] Lauren 04-24-2024 CNOV Office Visit ([facility]) ARLETH ELIAS ([id number]) 1945 F Date Time Provider Department 04/24/24 10:00 AM CHALO PATEL [facility] During your visit today, we recorded the following information about you: Pulse Blood pressure Weight 72/minute 122/80 70 kg Chalo PatelDO 04/24/2024 11:01 AM Signed [facility] [place] SECTION OF REGIONAL CARDIOLOGY April 24, 2024 Outpatient VISIT TYPE Established PRIMARY CARE PHYSICIAN: Grayson Vega DO [address] [place] [address] [place] [address] HISTORY OF PRESENT ILLNESS: Ms. Elias is a 78 year old female with a past medical history of [employer] TAIL DOGGER-D placed 06/30/2023, chronic systolic heart failure EF on last echo 25%, nonischemic cardiomyopathy, CAD status post [facility] on 06/07/2019 with 50-70% stenosis of the mid LAD, HTN, HLD, PVD sp right axillobifemoral bypass graft on 01/02/20 for severe aortic stenosis at the level of the renal arteries, DM, diverticulitis, ankle pain. She was seen last by me on10/21/2303/05/2024, per that note: ... TAIL DOGGER-D was placed 06/30/2023. She was seen last by Dr. Polk on 10/07/2023 where metoprolol was increased. She was seen by Dr. Strange on 07/27/23 and will follow-up in around 4 months. ...she tells me that she is feeling much better now. She is walking a mile at least 3x a week now and states that she couln't walk to the mailbox previous to having the TAIL DOGGER placed. She lost weight since starting ozempic and now states that he weight is stable over the last 3 months. She tells me that she had diarrhea while on metformin yet, now since is on ozempic and doing ell. She denies having any: chest pain, palpitations, shortness of breath, orthopnea, LE edema, presyncope/syncope, N/V, bleeding, or other significant symptoms. Was seen last by Dr. Strange on 12/28/2023, she was doing well at that time. She recommended starting spironolactone 12.5 mg daily. Today, she tells me that she feels good. She is walking now. She is doing great on ozempic and jardiance. She denies having any: chest pain, palpitations, [...] use any drugs. She is now walking a mile at the [facility]. She states that it takes her 28 minutes. Family, father had cancer. Mother was in her early 60s with CABG and a pacemaker. 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 IMPRESSION: Encounter Diagnosis ICD-10-CM 1. HFrEF (heart failure with reduced ejection fraction) ([facility]) I50.20 2. Other cardiomyopathy ([facility]) I42.8 3. 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 I25.10 rosuvastatin (CRESTOR) 40 mg tablet valsartan (DIOVAN) 40 mg tablet 4. Primary hypertension I10 BASIC METABOLIC PANEL 5. Essential hypertension I10 valsartan (DIOVAN) 40 mg tablet 6. Mixed hyperlipidemia E78.2 rosuvastatin (CRESTOR) 40 mg tablet 7. Hyperlipidemia associated with type 2 diabetes mellitus ([facility]) ([facility]) E11.69 E78.5 8. Nonrheumatic mitral valve regurgitation I34.0 9. Presence of cardiac resynchronization therapy defibrillator (TAIL DOGGER-D) Z95.810 10. H/O aorto-femoral bypass Z95.828 11. ERASMO (obstructive sleep apnea) G47.33 PLAN AND RECOMMENDATIONS: Chronic systolic heart failure with LVEF 25% now post TAIL DOGGER-D. Continue GDMT as detailed by heart failure, currently blood pressure appears to be borderline low: Continue metoprolol XL 50 mg daily Continue Furosemide 40 mg twice daily Continue valsartan 20 mg daily Continue spironolactone 12.5mg daily Jardiance 10 mg daily Cre is elevated yet, stable. We will discuss her symptoms at next visit and consider if further titration is necessary at next visit. CAD with sp PCI to LAD 02/2023. continue cardiac medications at this time. Continue cardiac medications: Aspirin plus Plavix, beta genia, statin. She can decrease DAPT if OK with vascular surgery. Goal blood pressure less than 130/80 mmHg. [...] re-evaluated after further optimization with heart failure. TAIL DOGGER-D in situ and appears to be functioning well. EP is optimizing. QRS duration is now shortened. History of aortofemoral bypass noted. ERASMO noted, FU with sleep medicine prior to n (more content not included)... Normal [facility] 25(OH)D3 [facility] 2024 25-hydroxyvitamin D3 [Mass/Vol] 12.9 ng/mL Low 31.0-80.0 [facility] Comment on above: Order Comment: Brooklyn andrew Type: BLOOD SPECIMENOrdering Facility: [facility] Address: [address] [place] [address] Result Comment: Clas sification of 25 [place] Vitamin D status: Deficiency/Insufficiency: < or = 30 ng/ml. Sufficiency/Optimal Levels: 31-80 ng/mL Toxicity: > 100 ng/mL. Test performed by chemiluminescent immunoassay. Performed By: #### 1 989-3 ####[facility] LABCLIA [id number] [facility] [id number] [id number] [place] Albumin [facility] 025 Albumin [Mass/Vol] 4.3 g/dL Normal 3.9-4.9 [facility] Comment on above: Order Comment: Brooklyn andrew Type: BLOOD SPECIMEN Ordering Facility: [facility] Address: [address] [place] [address] Performed By: #### 2 977-1, 21894935-8, 1750-10 #### [facility] CLIA [id number] [address] [place] [address] Basic metabolic 2000 panelon 04-21-2024 Anion gap [Moles/Vol] 9 mmol/L Normal 8-15 [facility] Comment on above: Order Comment: Speci men Type: BLOOD SPECIMEN Ordering Facility: [facility] Address: [address] [place] [address] Performed By: #### 2 777-1, 63905-8, 1750-10 #### [facility] CLIA [id number] [address] [place] [address] Calcium [Mass/Vol] 9.4 mg/dL Normal 8.5-10.2 [facility] Comment on above: Order Comment: Speci men Type: BLOOD SPECIMEN Ordering Facility: [facility] Address: [address] [place] [address] Performed By: #### 2 777-1, 24857-8, 1750-10 #### [facility] CLIA [id number] [address] [place] [address] Chloride [Moles/Vol] 102 mmol/L Normal 98-107 [facility] Comment on above: Order Comment: Speci men Type: BLOOD SPECIMEN Ordering Facility: [facility] Address: [address] [place] [address] Performed By: #### 2 777-1, 02141-5, 1750-10 #### [facility] CLIA [id number] [address] [place] [address] CO2 [Moles/Vol] 26 mmol/L Normal 22-30 [facility] Comment on above: Order Comment: Speci men Type: BLOOD SPECIMEN Ordering Facility: [facility] Address: [address] [place] [address] Performed By: #### 2 777-1, 61433-9, 1750-10 #### [facility] CLIA [id number] [address] [place] [address] Creatinine [Mass/Vol] 1.85 mg/dL High 0.58-0.96 [facility] Comment on above: Order Comment: Brooklyn andrew Type: BLOOD SPECIMEN Ordering Facility: [facility] Address: [address] [place], [place] [address] Performed By: #### 2 777-1, 52348-8, 1750-10 #### [facility] CLIA [id number] [address] [place] [address] Creatinine and Glomerular filtration rate.predicted panel (S/P/Bld) 28 mL/min/1.73m??? Low >=60 [facility] Comment on above: Order Comment: Brooklyn andrew Type: BLOOD SPECIMEN Ordering Facility: [facility] Address: [address] [place] [address] Result Comment: Tanisha mated Glomerular Filtration Rate [...] reflect actual GFR. Performed By: #### 2 777-1, 33940-6, 1750-10 #### [facility] CLIA [id number] [address] [place] [address] Glucose [Mass/Vol] 144 mg/dL High 74-99 [facility] Comment on above: Order Comment: [place] andrew Type: BLOOD SPECIMEN Ordering Facility: [facility] Address: [address] [place] [address] Result Comment: The [place] Diabetes Association (ADA) provides guidance for cutoff [...] Standards of Medical Care in Diabetes 2016, [place] Diabetes Association. Diabetes Care. 2016.39(Suppl 1). Performed By: #### 2 777-1, 22955-8, 1750-10 #### [facility] CLIA [id number] [address] [place] [address] Potassium [Moles/Vol] 5.1 mmol/L Normal 3.7-5.1 [facility] Comment on above: Order Comment: Speci men Type: BLOOD SPECIMEN Ordering Facility: [facility] Address: [address] [place] [address] Performed By: #### 2 777-1, 99837-8, 1750-10 #### [facility] CLIA [id number] [address] [place] [address] Sodium [Moles/Vol] 137 mmol/L Normal 136-144 [facility] Comment on above: Order Comment: Speci men Type: BLOOD SPECIMEN Ordering Facility: [facility] Address: [address] [place] [address] Performed By: #### 2 777-1, 49816-7, 1750-10 #### [facility] CLIA [id number] [address] [place] [address] Urea nitrogen [Mass/Vol] 42 mg/dL High 7-21 [facility] Comment on above: Order Comment: Speci men Type: BLOOD SPECIMEN Ordering Facility: [facility] Address: [address] [place] [address] Performed By: #### 2 777-1, 13547-9, 1750-10 #### [facility] CLIA [id number] [address] [place] [address] CBC W Auto Differential pane l (Bld)on 04-21-2024 Basophils (Bld) [#/Vol] 0.06 10*3/uL Normal <0.11 [facility] Comment on above: Order Comment: Speci men Type: BLOOD SPECIMENOrdering Facility: [facility] Address: [address] [place] [address] Performed By: #### 5 7021-8 ####[facility] LABCLIA [id number] [place] [address] Basophils/100 WBC (Bld) 0.8 % Normal [facility] Comment on above: Order Comment: Speci men Type: BLOOD SPECIMENOrdering Facility: [facility] Address: [address] [place] [address] Performed By: #### 5 7021-8 ####[facility] LABCLIA [id number] [place] [address] Differential cell count method Nom (Bld) Auto Normal [facility] Comment on above: Order Comment: Speci men Type: BLOOD SPECIMENOrdering Facility: [facility] Address: [address] [place] [address] Performed By: #### 5 7021-8 ####[facility] LABCLIA [id number] [place] [address] Eosinophils (Bld) [#/Vol] 0.18 10*3/uL Normal <0.46 [facility] Comment on above: Order Comment: Speci men Type: BLOOD SPECIMENOrdering Facility: [facility] Address: [address] [place] [address] Performed By: #### 5 7021-8 ####[facility] LABCLIA [id number] [place] [address] Eosinophils/100 WBC (Bld) 2.5 % Normal [facility] Comment on above: Order Comment: Speci men Type: BLOOD SPECIMENOrdering Facility: [facility] Address: [address] [place] [address] Performed By: #### 5 7021-8 ####[facility] LABCLIA [id number] [place] [address] Erythrocyte distribution width (RBC) [Ratio] 15.7 % High 11.5-15.0 [facility] Comment on above: Order Comment: Speci men Type: BLOOD SPECIMENOrdering Facility: [facility] Address: [address] [place] [address] Performed By: #### 5 7021-8 ####[facility] LABCLIA [id number] [place] [address] Hematocrit (Bld) [Volume fraction] 38.8 % Normal 36.0-46.0 [facility] Comment on above: Order Comment: Speci men Type: BLOOD SPECIMENOrdering Facility: [facility] Address: [address] [place] [address] Performed By: #### 5 7021-8 ####[facility] LABCLIA [id number] [place] [address] Hemoglobin (Bld) [Mass/Vol] 12.8 g/dL Normal 11.5-15.5 [facility] Comment on above: Order Comment: Speci men Type: BLOOD SPECIMENOrdering Facility: [facility] Address: [address] [place] [address] Performed By: #### 5 7021-8 ####[facility] LABIA [id number] [place] [address] Immature granulocytes (Bld) [#/Vol] 10*3/uL Normal <0.10 [facility] Comment on above: Order Comment: Speci men Type: BLOOD SPECIMENOrdering Facility: [facility] Address: [address] [place] [address] Performed By: #### 5 7021-8 ####[facility] LABIA [id number] [place] [address] Immature granulocytes/100 WBC (Bld) 0.1 % Normal [facility] Comment on above: Order Comment: Speci men Type: BLOOD SPECIMENOrdering Facility: [facility] Address: [address] [place] [address] Performed By: #### 5 7021-8 ####[facility] LABCLIA [id number] [place] [address] Lymphocytes (Bld) [#/Vol] 2.29 10*3/uL Normal 1.00-4.00 [facility] Comment on above: Order Comment: Speci men Type: BLOOD SPECIMENOrdering Facility: [facility] Address: [address] [place] [address] Performed By: #### 5 7021-8 ####[facility] LABCLIA [id number] [place] [address] Lymphocytes/100 WBC (Bld) 32.4 % Normal [facility] Comment on above: Order Comment: Speci men Type: BLOOD SPECIMENOrdering Facility: [facility] Address: [address] [place] [address] Performed By: #### 5 7021-8 ####[facility] LABCLIA [id number] [place] [address] MCH (RBC) [Entitic mass] 29.5 pg Normal 26.0-34.0 [facility] Comment on above: Order Comment: Speci men Type: BLOOD SPECIMENOrdering Facility: [facility] Address: [address] [place] [address] Performed By: #### 5 7021-8 ####[facility] LABCLIA [id number] [place] [address] MCHC (RBC) [Mass/Vol] 33.0 g/dL Normal 30.5-36.0 [facility] Comment on above: Order Comment: Speci men Type: BLOOD SPECIMENOrdering Facility: [facility] Address: [address] [place] [address] Performed By: #### 5 7021-8 ####[facility] LABIA [id number] [place] [address] MCV (RBC) [Entitic vol] 89.4 fL Normal 80.0-100.0 [facility] Comment on above: Order Comment: Speci men Type: BLOOD SPECIMENOrdering Facility: [facility] Address: [address] [place] [address] Performed By: #### 5 7021-8 ####[facility] LABCLIA [id number] [place] [address] Monocytes (Bld) [#/Vol] 0.49 10*3/uL Normal <0.87 [facility] Comment on above: Order Comment: Speci men Type: BLOOD SPECIMENOrdering Facility: [facility] Address: [address] [place] [address] Performed By: #### 5 7021-8 ####[facility] LABCLIA [id number] [place] [address] Monocytes/100 WBC (Bld) 6.9 % Normal [facility] Comment on above: Order Comment: Speci men Type: BLOOD SPECIMENOrdering Facility: [facility] Address: [address] [place] [address] Performed By: #### 5 7021-8 ####[facility] LABCLIA [id number] [place] [address] Neutrophils (Bld) [#/Vol] 4.03 10*3/uL Normal 1.45-7.50 [facility] Comment on above: Order Comment: Speci men Type: BLOOD SPECIMENOrdering Facility: [facility] Address: [address] [place] [address] Performed By: #### 5 7021-8 ####[facility] LABCLIA [id number] [place] [address] Neutrophils/100 WBC (Bld) 57.3 % Normal [facility] Comment on above: Order Comment: Speci men Type: BLOOD SPECIMENOrdering Facility: [facility] Address: [address] [place] [address] Performed By: #### 5 7021-8 ####[facility] LABCLIA [id number] [place] [address] Nucleated RBC (Bld) [#/Vol] 10*3/uL Normal <0.01 [facility] Comment on above: Order Comment: Speci men Type: BLOOD SPECIMENOrdering Facility: [facility] Address: [address] [place] [address] Performed By: #### 5 7021-8 ####[facility] LABCLIA [id number] [place] [address] Nucleated RBC/100 WBC (Bld) [Ratio] 0.0 /100 WBC Normal [facility] Comment on above: Order Comment: Speci men Type: BLOOD SPECIMENOrdering Facility: [facility] Address: [address] [place] [address] Performed By: #### 5 7021-8 ####[facility] LABCLIA [id number] [place] [address] Platelet mean volume (Bld) [Entitic vol] 9.9 fL Normal 9.0-12.7 [facility] Comment on above: Order Comment: Speci men Type: BLOOD SPECIMENOrdering Facility: [facility] Address: [address] [place] [address] Performed By: #### 5 7021-8 ####[facility] LABCLIA [id number] [place] [address] Platelets (Bld) [#/Vol] 167 10*3/uL Normal 150-400 [facility] Comment on above: Order Comment: Speci men Type: BLOOD SPECIMENOrdering Facility: [facility] Address: [address] [place] [address] Performed By: #### 5 7021-8 ####[facility] LABCLIA [id number] [place] [address] RBC (Bld) [#/Vol] 4.34 10*6/uL Normal 3.90-5.20 [facility] Comment on above: Order Comment: Speci men Type: BLOOD SPECIMENOrdering Facility: [facility] Address: [address] [place] [address] Performed By: #### 5 7021-8 ####[facility] LABCLIA [id number] [place] [address] WBC (Bld) [#/Vol] 7.06 10*3/uL Normal 3.70-11.00 [facility] Comment on above: Order Comment: Speci men Type: BLOOD SPECIMENOrdering Facility: [facility] Address: [address] [place] [address] Performed By: #### 5 7021-8 ####[facility] LABCLIA [id number] [place] [address] [facility] CBC W AUTO DIFF BLDon Basophils/100 WBC (Bld) 0.8 % [facility] BASOPHILS # BLD AUTO 0.06 [facility] DIFFERENTIAL METHOD BLD Auto [facility] EOSINOPHIL # BLD AUTO 0.18 [facility] LYMPHOCYTES # BLD AUTO 2.29 [facility] MONOCYTES # BLD AUTO 0.49 [facility] NEUTROPHILS # BLD AUTO 4.03 [facility] NRBC # BLD AUTO <0.01 [facility] NRBC/100 WBC BLD-RTO 0 /[address] [facility] PLATELET # BLD AUTO 167 [facility] PMV BLD AUTO 9.9 fL 9.0 - 12.[address] [facility] WBC # BLD AUTO 7.06 [facility] Eosinophils/100 WBC (Bld) 2.5 % [facility] Erythrocyte distribution width (RBC) [Ratio] 15.7 % High 11.5 - 15.0 % [facility] Hematocrit (Bld) [Volume fraction] 38.8 % 36.0 - 46.0 % [facility] Hemoglobin (Bld) [Mass/Vol] 12.8 g/dL 11.5 - 15.5 g/dL [facility] IMM GRANULOCYTES # BLD AUTO <0.03 [facility] IMM GRANULOCYTES/LEUK NFR BLD AUTO 0.1 % [facility] Interpretation and review of laboratory results Abnormal [facility] Lymphocytes/100 WBC (Bld) 32.4 % [facility] MCH (RBC) [Entitic mass] 29.5 pg 26.0 - 34.[address] [facility] MCHC (RBC) [Mass/Vol] 33 g/dL 30.5 - 36.0 g/dL [facility] MCV (RBC) [Entitic vol] 89.4 fL 80.0 - 100.[address] [facility] Monocytes/100 WBC (Bld) 6.9 % [facility] Neutrophils/100 WBC (Bld) 57.3 % [facility] RBC (Bld) [#/Vol] 4.34 10*6/uL 3.90 - 5.2 0 m/uL [facility] Specimen Type: BLOOD SPECIMEN Ordering Facility: [facility] Address: [address] [place] [address] Original Ordering Provider: CONCHA RIVAS [facility]NP [facility] Natriuretic peptide.B prohormone N-Terminal [Mass/Vol] 569 pg/mL High <450 [facility] Comment on above: Order Comment: [place] andrew Type: BLOOD SPECIMENOrdering Facility: [facility] Address: [address] [place] [address] Performed By: #### 2 731-8, 74917-5 ####[facility] [id number] [place] [address] [place] PTH-Intact SerPl-ncon 04-12 0 Parathyrin.intact [Mass/Vol] 85 pg/mL High 15-65 [facility] Comment on above: Order Comment: Speci lorrie Type: BLOOD SPECIMENOrdering Facility: [facility] Address: [address] [place] [address] Performed By: #### 2 731-8, 22814-6 ####[facility] LABIA [id number] [place] [address] [place] Phosphate SerPl-mCncon 04-21 Phosphate [Mass/Vol] 3.8 mg/dL Normal 2.7-4.8 [facility] Comment on above: Order Comment: Speci men Type: BLOOD SPECIMEN Ordering Facility: [facility] Address: [address] [place] [address] Performed By: #### 2 777-1, 87274-8, 1751-7 #### [facility] CLIA [id number] [address] [place] [address] Prot/Creat Uron 04-21-2024 Protein/Creatinine (U) [Mass ratio] 0.51 mg/mg High <0.15 [facility] Comment on above: Order Comment: Speci men Type: URINE SPECIMENOrdering Facility: [facility] Address: [address] [place] [address] Result Comment: Adul t Proteinuria Categories: <0.15 mg/mg is considered normal to mildly increased 0.15 - 0.50 mg/mg is considered moderately increased >0.50 mg/mg is considered severely increased KDIGO. (2013). KDIGO 2012 Clinical Practice Guideline for the Evaluation and Management of Chronic Kidney Disease. Official Journal of the International Society of Nephrology, 3(1), 1-150. Performed By: #### 2 890-2 ####[facility] LABCLIA [id number] [address] [address] [place] Protein/Creatinine (U) [Mass ratio]on 04-21-2024 Creatinine (U) [Mass/Vol] 89.8 mg/dL Normal 20.0-300.0 [facility] Comment on above: Order Comment: Speci men Type: URINE SPECIMENOrdering Facility: [facility] Address: [address] [place] [address] Performed By: #### 2 890-2 ####[facility] LABCLIA [id number] [address] [address] [place] Protein (U) [Mass/Vol] 46 mg/dL High 0-20 [facility] Comment on above: Order Comment: Speci men Type: URINE SPECIMENOrdering Facility: [facility] Address: [address] [place] [address] Performed By: #### 2 890-2 ####[facility] PRISCA [id number] [address] [place] Vianney 04-20-2024 CNPN Telephone (CARDLO) ARLETH ELIAS ([id number]) 1945 F Date Time Provider Department 04/20/24 CHALO PATEL During your visit today, we recorded the following information about you: Anila Fitzgerald 04/20/2024 10:08 AM Signed Arleth is calling Chalo Patel DO today. She had to cancel her 04/26/24 as has a surgery that day. Next available is 08/10/24 which she took, however, asking if there is any way to be added to his schedule sooner? Declines JUAN, only wants Dr Patel. If possibly of seeing him sooner, please reach out. Patient has been identified by name and birthdate. Duration of symptoms: N/A Person calling: self Call patient at: on cell [phone] (home) [phone] (cell) Was an appointment scheduled: Yes: Date/Time: 08/10/24 Closing statement: Results or non-symptom based questions: Thank you for calling [facility], your call will be returned within the next business day. Rachael Farmer MA 04/20/2024 10:24 AM Signed Please see if patient can come 04/28/24 in the access slot that's left or 330 pm that is being held for wait list Dana Morrissey 04/20/2024 2:09 PM Signed Called and spoke to patient. Scheduled for 04/24/24 at [employer] in [place]. Aware of date, time, and location. Allergies As of Date: 04/20/2024 Noted Allergy Reaction PENICILLINS 06/29/2014 10 - Anaphylaxis 4 - Hives IODINATED CONTRAST MEDIA 12/22/2018 14 - Other: See Comments Comments: Throat itching to some Xray dye >20-30 years ago Date Reviewed: 02/28/2024 Reviewed by: Mikel Barahona APRN.INTERNET MANAGER - Fully Assessed Reason for Visit: appt cancellation [Other] Prescriptions as of 04/20/2024 - semaglutide (OZEMPIC) 2 mg/dose (8 mg/3 mL) pen injector Inject 2 mg subcutaneously one time a week. - furosemide (LASIX) 20 mg tablet Take 1 tablet by mouth once daily. - clopidogrel (PLAVIX) 75 mg tablet Take 1 tablet by mouth every 24 hours. - spironolactone (ALDACTONE) 25 mg tablet Take 0.5 tablets by mouth once daily. - omeprazole (PRILOSEC) 40 mg capsule Take 40 mg by mouth two times a day. Pt confirmed she is taking this medication - magnesium oxide (MAG-OX) 400 mg (241.3 mg magnesium) tablet TAKE 1 TABLET BY MOUTH TWICE DAILY. TAKE SEPERATELY FROM DOXYCYCLINE - metoprolol succinate ER (TOPROL XL) 25 mg 24 hr tablet Take 1 tablet by mouth as directed. 50 mg AM and 25 mg PM - empagliflozin (JARDIANCE) 10 mg tablet Take 1 tablet by mouth daily with breakfast. - diazePAM (VALIUM) 2 mg tablet - valsartan (DIOVAN) 40 mg tablet Take 0.5 tablets by mouth once daily. - rosuvastatin (CRESTOR) 40 mg tablet Take 1 tablet by mouth daily at bedtime. - blood sugar diagnostic (BLOOD GLUCOSE TEST) test strip Use as instructed to monitor glucose. One touch ultra verio test strips. - Blood-Glucose Sensor (FREESTYLE LEEANN 3 SENSOR) mauricio Use new sensor every 14 days to monitor blood glucose. - aspirin, enteric coated (ASPIRIN, ENTERIC COATED) 81 mg EC tablet Take 81 mg by mouth once daily. - Insulin [place], Disposable, (BD ULTRA-FINE RUBIA PEN NEEDLE) 32 gauge x 5/32 ndle BD Ultra-Fine Rubia Pen Needle 32 gauge x 5/32 - allopurinol (ZYLOPRIM) 100 mg tablet Take 100 mg by mouth once daily. - fluticasone (FLONASE) 50 mcg/actuation nasal spray fluticasone propionate 50 mcg/actuation nasal spray,suspension Problem List As Of Date 04/20/2024 Noted Resolved Posterior tibial tendonitis [M76.829] 09/19/2015 [...] testing [Z01.818] 06/07/2019 Coronary artery disease involving tlingit & haida hunt*06/08/2019 Aortoiliac occlusive disease (HCC) [I74.09] 01/02/2020 Acute heart failure with reduced ejection fract*02/16/2023 Status post angioplasty with stent [Z95.820] 02/17/2023 Chronic systolic congestive heart failure (HCC)*05/31/2023 LBBB (left bundle branch block) [I44.7] 05/31/2023 DAV (acute kidney injury) (HCC) [N17.9] 06/15/2023 LV dysfunction [I51.9] 07/01/2023 Pulmonary hypertension, unspecified (HCC) [I27.*12/28/2023 Nonrheumatic mitral valve regurgitation [I34.0] 12/28/2023 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] 01/03/2024 Encounter Status:Closed by DANA MORRISSEY on 04/20/24 [facility] Lauren 04-10-2024 CNOV Office Visit (CARDAV ) CURTSHAUNNAARLETH Lucio ([id number]) 1945 F Date Time Provider Department 04/10/24 10:30 AM ECHO 2 [facility] SAM BALDWIN During your visit today, we recorded the following information about you: Dwight North RN 04/10/2024 10:31 AM Signed IV Access: IV IV Site: right Antecubital IV GAUGE 24 gauge IV Removal Date April 10, 2024 Time 10:30 AM Reactions: WNL Order reviewed by nurse:yes Medications: Definity - dosage 2mL Reaction: No LOT: [id number] EXP: 12/11/24 [facility] #[id number] MFG: [employer] Referring Provider: STANLEY STRANGE [[id number]] Allergies As of Date: 04/10/2024 Noted Allergy Reaction PENICILLINS 06/29/2014 10 - Anaphylaxis 4 - Hives IODINATED CONTRAST MEDIA 12/22/2018 14 - Other: See Comments Comments: Throat itching to some Xray dye >20-30 years ago Date Reviewed: 02/28/2024 Reviewed by: Mikel Barahona APRN.INTERNET MANAGER - Fully Assessed Visit Diagnosis:Chronic systolic congestive heart failure (HCC) [I50.22] Order(s):ECHO [950834] Order #: [id number]: 1 [] perflutren lipid microspheres 1.3 mL in NaCl (PF) 0.9% 10 mL injection (DEFINITY)Disp: Rfl: [] sodium chloride 0.9 % (flush) 10 mL (BD POSIFLUSH)Disp: Rfl: Prescriptions as of 04/10/2024 - semaglutide (OZEMPIC) 2 mg/dose (8 mg/3 mL) pen injector Inject 2 mg subcutaneously one time a week. - furosemide (LASIX) 20 mg tablet Take 1 tablet by mouth once daily. - clopidogrel (PLAVIX) 75 mg tablet Take 1 tablet by mouth every 24 hours. - spironolactone (ALDACTONE) 25 mg tablet Take 0.5 tablets by mouth once daily. - omeprazole (PRILOSEC) 40 mg capsule Take 40 mg by mouth two times a day. Pt confirmed she is taking this medication - magnesium oxide (MAG-OX) 400 mg (241.3 mg magnesium) tablet TAKE 1 TABLET BY MOUTH TWICE DAILY. TAKE SEPERATELY FROM DOXYCYCLINE - metoprolol succinate ER (TOPROL XL) 25 mg 24 hr tablet Take 1 tablet by mouth as directed. 50 mg AM and 25 mg PM - empagliflozin (JARDIANCE) 10 mg tablet Take 1 tablet by mouth daily with breakfast. - diazePAM (VALIUM) 2 mg tablet - valsartan (DIOVAN) 40 mg tablet Take 0.5 tablets by mouth once daily. - rosuvastatin (CRESTOR) 40 mg tablet Take 1 tablet by mouth daily at bedtime. - blood sugar diagnostic (BLOOD GLUCOSE TEST) test strip Use as instructed to monitor glucose. One touch ultra verio test strips. - Blood-Glucose Sensor (FREESTYLE LEEANN 3 SENSOR) mauricio Use new sensor every 14 days to monitor blood glucose. - aspirin, enteric coated (ASPIRIN, ENTERIC COATED) 81 mg EC tablet Take 81 mg by mouth once daily. - Insulin [place], Disposable, (BD ULTRA-FINE RUBIA PEN NEEDLE) 32 gauge x 5/32 ndle BD Ultra-Fine Rubia Pen Needle 32 gauge x 5/32 - allopurinol (ZYLOPRIM) 100 mg tablet Take 100 mg by mouth once daily. - fluticasone (FLONASE) 50 mcg/actuation nasal spray fluticasone propionate 50 mcg/actuation nasal spray,suspension Problem List As Of Date 04/10/2024 Noted Resolved Posterior tibial tendonitis [M76.829] 09/19/2015 [...] testing [Z01.818] 06/07/2019 Coronary artery disease involving tlingit & haida hunt*06/08/2019 Aortoiliac occlusive disease (HCC) [I74.09] 01/02/2020 Acute heart failure with reduced ejection fract*02/16/2023 Status post angioplasty with stent [Z95.820] 02/17/2023 Chronic systolic congestive heart failure (HCC)*05/31/2023 LBBB (left bundle branch block) [I44.7] 05/31/2023 DAV (acute kidney injury) ([facility]) [N17.9] 06/15/2023 LV dysfunction [I51.9] 07/01/2023 Pulmonary hypertension, unspecified ([facility]) [I27.*12/28/2023 Nonrheumatic mitral valve regurgitation [I34.0] 12/28/2023 Presence of heart assist device ([facility]) [Z95.811] 01/03/2024 Prescriptions ordered this encounter Disp Refills Start End PERFLUTREN LIPID MICROSPHERES 1.1 MG* 04/10/2024 04/10/2024 Route: INTRAVENOUS SODIUM CHLORIDE 0.9 % (FLUSH) INJECT* 04/10/2024 04/10/2024 Route: INTRAVENOUS Encounter Status:Closed by DWIGHT NORTH on 04/10/24 Normal [facility] ECHOon 04-10-2024 CONCLUSIONS: - Exam indication: HF - The left ventricle is mildly dilated. Left ventricular systolic function is moderately decreased. EF = 32 5% (2D biplane) Definity contrast used for endocardial border detection. - The right ventricle is normal in size. Right ventricular systolic function is normal. Visual EF 25-29% less MR and TR is seen - Exam was compared with the prior echocardiographic exam performed on 10/07/23: improvement in MR and TR ; EF quantitative is slightly higher ; * * * Final * * * [facility] Echocardiography Report: Transthoracic Echo [facility] Date of service: 04/10/2024 9:37:08 AM PROFESSOR OF HISTORY Ordering physician: STANLEY STRANGE Indication: HF Technologist: Naomie Negro RVT Interpreting physician: Dean Torres MD PATIENT: Name: MISS ARLETH ELIAS : 1945 Age: 78 years Gender: F History of hypertension, heart failure with hospitalization, coronary artery disease, arrhythmia and diabetes mellitus. Previous cardiovascular interventions: ICD implant (06/2023) Primary rhythm: sinus. Height: 167.60 cm BSA: 1.79 m Weight: 68.80 kg BMI: 24.5 kg/m Heart rate 76 bpm Blood pressure 147/79 mmHg Color Doppler was utilized to interrogate the cardiac valves assessed and spectral Doppler was utilized to determine the flow velocities and pressure gradients reported in this exam. MEASUREMENTS: Value Indexed Normal Max aortic dimension 3.2 cm Ao < 3.8 Left atrial volume 39 ml (biplane A-L) 22 ml/m Rossy <= 34 LV ID (diastole) 5.5 cm (2D) 3.07 cm/m LV ID (systole) 4.1 cm (2D) 2.29 cm/m IVS, leaflet tips 1.0 cm (2D) Posterior wall thickness 0.9 cm (2D) Left ventricular mass 199 g (2D) 111 g/m LV stroke volume 37 ml (2D biplane) LV end diastolic volume 116 ml (2D biplane) 64.9 ml/m 29<=EDVi<62 LV end systolic volume 80 ml (2D biplane) 44.4 ml/m Ejection Fraction 32 % (2D biplane) EF > 54 FINDINGS: LEFT VENTRICLE The left ventricle is mildly dilated. Left ventricular systolic function is moderately decreased. Left ventricular diastolic function was not evaluated due to E/a fusion. There is a single false tendon at the mid ventricle. Definity contrast used for endocardial border detection. Wall Motion: The mid and distal anterior wall, anterior septum, mid inferoseptal segment, mid inferior segment, and basal inferoseptal segment are severely hypokinetic. The entire lateral wall, apical septal segment, basal anterior segment, basal inferior segment, apical inferior segment, and apex are mildly hypokinetic. RIGHT VENTRICLE The right ventricle is normal in size. Pacer wires are noted in the right ventricle. Right ventricular systolic function is normal. RV systolic tissue Doppler velocity is 9.0 cm/s. Tricuspid annular displacement is 1.8 cm. Estimated right ventricular systolic pressure is likely underestimated due to a weak or incomplete tricuspid regurgitation signal and is, at least, 24 mmHg consistent with normal pulmonary artery pressures. Estimated right atrial pressure is 3 mmHg based on IVC assessment. LEFT ATRIUM The left atrial cavity is normal in size. RIGHT ATRIUM The right atrial cavity is normal in size. Pacer wires are noted in the right atrium. Inferior Vena Cava: The inferior vena cava appears normal measuring 0.8 cm. The vessel decreases greater than 50 percent with inspiration. MITRAL VALVE There is mild (1+) mitral valve regurgitation. There is mild thickening at the tips. TRICUSPID VALVE The tricuspid valve leaflets are structurally normal. There is trace (trace - 1+) tricuspid valve regurgitation. There is no thickening. AORTIC VALVE There is trace aortic valve regurgitation. Tricuspid aortic valve. There is mild thickening. PULMONIC VALVE The pulmonic valve was not seen or not interrogated. There is trace pulmonic valve regurgitation. AORTA The visualized aorta is normal in size. Measurements - Sinus: 2.9 cm. Mid ascending aorta 3.2 cm. INTERATRIAL SEPTUM There is no evidence of intracardiac shunting as detected by Doppler. INTERVENTRICULAR SEPTUM There is no flow through the interventricular septum as detected by Doppler. PERICARDIUM There is no pericardial effusion. [facility] Echocardiography Echocardiography Report: Transthoracic Echo [facility] Date of service: 04/10/2024 9:37:08 AM PROFESSOR OF HISTORY Ordering physician: STANLEY STRANGE Indication: HF Technologist: Naomie Negro RVT Interpreting physician: Dean Torres MD PATIENT: Name: MISS ARLETH ELIAS : 1945 Age: 78 years Gender: F History of hypertension, heart failure with hospitalization, coronary artery disease, arrhythmia and diabetes mellitus. Previous cardiovascular interventions: ICD implant (06/2023) Primary rhythm: sinus. Height: 167.60 cm BSA: 1.79 m Weight: 68.80 kg BMI: 24.5 kg/m Heart rate 76 bpm Blood pressure 147/79 mmHg Color Doppler was utilized to interrogate the cardiac valves assessed and spectral Doppler was utilized to determine the flow velocities and pressure gradients reported in this exam. MEASUREMENTS: Value Indexed Normal Max aortic dimension 3.2 cm Ao < 3.8 Left atrial volume 39 ml (biplane A-L) 22 ml/m Rossy <= 34 LV ID (diastole) 5.5 cm (2D) 3.07 cm/m LV ID (systole) 4.1 cm (2D) 2.29 cm/m IVS, leaflet tips 1.0 cm (2D) Posterior wall thickness 0.9 cm (2D) Left ventricular mass 199 g (2D) 111 g/m LV stroke volume 37 ml (2D biplane) LV end diastolic volume 116 ml (2D biplane) 64.9 ml/m 29<=EDVi<62 LV end systolic volume 80 ml (2D biplane) 44.4 ml/m Ejection Fraction 32 % (2D biplane) EF > 54 FINDINGS: LEFT VENTRICLE The left ventricle is mildly dilated. Left ventricular systolic function is moderately decreased. Left ventricular diastolic function was not evaluated due to E/a fusion. There is a single false tendon at the mid ventricle. Definity contrast used for endocardial border detection. Wall Motion: The mid and distal anterior wall, anterior septum, mid inferoseptal segment, mid inferior segment, and basal inferoseptal segment are severely hypokinetic. The entire lateral wall, apical septal segment, basal anterior segment, basal inferior segment, apical inferior segment, and apex are mildly hypokinetic. RIGHT VENTRICLE The right ventricle is normal in size. Pacer wires are noted in the right ventricle. Right ventricular systolic function is normal. RV systolic tissue Doppler velocity is 9.0 cm/s. Tricuspid annular displacement is 1.8 cm. Estimated right ventricular systolic pressure is likely underestimated due to a weak or incomplete tricuspid regurgitation signal and is, at least, 24 mmHg consistent with normal pulmonary artery pressures. Estimated right atrial pressure is 3 mmHg based on IVC assessment. LEFT ATRIUM The left atrial cavity is normal in size. RIGHT ATRIUM The right atrial cavity is normal in size. Pacer wires are noted in the right atrium. Inferior Vena Cava: The inferior vena cava appears normal measuring 0.8 cm. The vessel decreases greater than 50 percent with inspiration. MITRAL VALVE There is mild (1+) mitral valve regurgitation. There is mild thickening at the tips. TRICUSPID VALVE The tricuspid valve leaflets are structurally normal. There is trace (trace - 1+) tricuspid valve regurgitation. There is no thickening. AORTIC VALVE There is trace aortic valve regurgitation. Tricuspid aortic valve. There is mild thickening. PULMONIC VALVE The pulmonic valve was not seen or not interrogated. There is trace pulmonic valve regurgitation. AORTA The visualized aorta is normal in size. Measurements - Sinus: 2.9 cm. Mid ascending aorta 3.2 cm. INTERATRIAL SEPTUM There is no evidence of intracardiac shunting as detected by Doppler. INTERVENTRICULAR SEPTUM There is no flow through the interventricular septum as detected by Doppler. PERICARDIUM There is no pericardial effusion. CONCLUSIONS: - Exam indication: HF - The left ventricle is mildly dilated. Left ventricular systolic function is moderately decreased. EF = 32 5% (2D biplane) Definity contrast used for endocardial border detection. - The right ventricle is normal in size. Right ventricular systolic function is normal. Visual EF 25-29% less MR and TR is seen - Exam was compared with the prior [facility] echocardiographic exam performed on 10/07/23: improvement in MR and TR ; EF quantitative is slightly higher ; * * * Final * * * [facility] : [id number] amicsSISUID Normal [facility] Vianney 03-02-2024 CNPN Telephone (ENDOLN) ARLETH ELIAS ([id number]) 1945 F Date Time Provider Department 03/02/24 MIKEL BARAHONA ENDOLN During your visit today, we recorded the following information about you: Paul Swartz MA 03/02/2024 11:43 AM Signed Patient Assistance form for Omid Nordisk completed by both provider and patient, faxed with proof of income and insurance cards. Confirmation received. Paul Swartz MA 08/15/2024 1:02 PM Signed Received 4 boxes patient assistance ozempic. Patient notified via phone. Patient gave verbal understanding. Allergies As of Date: 03/02/2024 Noted Allergy Reaction PENICILLINS 06/29/2014 10 - Anaphylaxis 4 - Hives IODINATED CONTRAST MEDIA 12/22/2018 14 - Other: See Comments Comments: Throat itching to some Xray dye >20-30 years ago Date Reviewed: 02/28/2024 Reviewed by: Mikel Barahona APRN.INTERNET MANAGER - Fully Assessed Reason for Visit: Patient Assistance [5977] Cmt: Omid Nordisk: Ozempic Prescriptions as of 08/15/2024 - metoprolol succinate ER (TOPROL XL) 50 mg 24 hr tablet Take 1 tablet by mouth two times a day. - furosemide (LASIX) 20 mg tablet Take 1 tablet by mouth once daily as needed. - empagliflozin (JARDIANCE) 10 mg tablet Take 1 tablet by mouth daily with breakfast. - semaglutide (OZEMPIC) 2 mg/dose (8 mg/3 mL) pen injector Inject 2 mg subcutaneously one time a week. - ergocalciferol 50,000 unit capsule (VITAMIN D2, DRISDOL) Take 1 capsule by mouth one time a week. - rosuvastatin (CRESTOR) 40 mg tablet Take 1 tablet by mouth daily at bedtime. - valsartan (DIOVAN) 40 mg tablet Take 0.5 tablets by mouth once daily. - clopidogrel (PLAVIX) 75 mg tablet Take 1 tablet by mouth every 24 hours. - spironolactone (ALDACTONE) 25 mg tablet Take 0.5 tablets by mouth once daily. - omeprazole (PRILOSEC) 40 mg capsule Take 40 mg by mouth two times a day. Pt confirmed she is taking this medication - magnesium oxide (MAG-OX) 400 mg (241.3 mg magnesium) tablet TAKE 1 TABLET BY MOUTH TWICE DAILY. TAKE SEPERATELY FROM DOXYCYCLINE - blood sugar diagnostic (BLOOD GLUCOSE TEST) test strip Use as instructed to monitor glucose. One touch ultra verio test strips. - Blood-Glucose Sensor (FREESTYLE LEEANN 3 SENSOR) mauricio Use new sensor every 14 days to monitor blood glucose. - aspirin, enteric coated (ASPIRIN, ENTERIC COATED) 81 mg EC tablet Take 81 mg by mouth once daily. - Insulin [place], Disposable, (BD ULTRA-FINE RUBIA PEN NEEDLE) 32 gauge x 5/32 ndle BD Ultra-Fine Rubia Pen Needle 32 gauge x 5/32 - allopurinol (ZYLOPRIM) 100 mg tablet Take 100 mg by mouth once daily. - fluticasone (FLONASE) 50 mcg/actuation nasal spray fluticasone propionate 50 mcg/actuation nasal spray,suspension Problem List As Of Date 03/02/2024 Noted Resolved Posterior tibial tendonitis [M76.829] 09/19/2015 [...] testing [Z01.818] 06/07/2019 Coronary artery disease involving tlingit & haida hunt*06/08/2019 Aortoiliac occlusive disease (HCC) [I74.09] 01/02/2020 Acute heart failure with reduced ejection fract*02/16/2023 Status post angioplasty with stent [Z95.820] 02/17/2023 Chronic systolic congestive heart failure (HCC)*05/31/2023 LBBB (left bundle branch block) [I44.7] 05/31/2023 DAV (acute kidney injury) ([facility]) [N17.9] 06/15/2023 LV dysfunction [I51.9] 07/01/2023 Pulmonary hypertension, unspecified ([facility]) [I27.*12/28/2023 Nonrheumatic mitral valve regurgitation [I34.0] 12/28/2023 Presence of heart assist device ([facility]) [Z95.811] 01/03/2024 Encounter Status:Closed by PAUL SWARTZ on 03/02/24 Normal [facility] Vianney 02-29-2024 RUPA Telephone (ENDOLN) ARLETH ELIAS Lucio ([id number]) 1945 F Date Time Provider Department 02/29/24 MIKEL BARAHONA During your visit today, we recorded the following information about you: Kristi Will MA 02/29/2024 9:22 AM Signed A form has been received from [employer] for CGM download and NIKITA note. Faxed NIKITA note 02/28/24 and last CGM download 05/27/23-06/02/23 to [phone]. Confirmation received. Ashely Rm 03/07/2024 1:39 PM Signed [facility] called. They still need 06/02/23 office notes. Ivelisse Elias MA 03/13/2024 2:25 PM Signed [facility] notes from 06/02 faxed Allergies As of Date: 02/29/2024 Noted Allergy Reaction PENICILLINS 06/29/2014 10 - Anaphylaxis 4 - Hives IODINATED CONTRAST MEDIA 12/22/2018 14 - Other: See Comments Comments: Throat itching to some Xray dye >20-30 years ago Date Reviewed: 02/28/2024 Reviewed by: Mikel Barahona APRN.INTERNET MANAGER - Fully Assessed Reason for Visit: Forms [203] Cmt: [facility] - CGM Download Prescriptions as of 03/13/2024 - semaglutide (OZEMPIC) 2 mg/dose (8 mg/3 mL) pen injector Inject 2 mg subcutaneously one time a week. - furosemide (LASIX) 20 mg tablet Take 1 tablet by mouth once daily. - clopidogrel (PLAVIX) 75 mg tablet Take 1 tablet by mouth every 24 hours. - spironolactone (ALDACTONE) 25 mg tablet Take 0.5 tablets by mouth once daily. - omeprazole (PRILOSEC) 40 mg capsule Take 40 mg by mouth two times a day. Pt confirmed she is taking this medication - magnesium oxide (MAG-OX) 400 mg (241.3 mg magnesium) tablet TAKE 1 TABLET BY MOUTH TWICE DAILY. TAKE SEPERATELY FROM DOXYCYCLINE - metoprolol succinate ER (TOPROL XL) 25 mg 24 hr tablet Take 1 tablet by mouth as directed. 50 mg AM and 25 mg PM - empagliflozin (JARDIANCE) 10 mg tablet Take 1 tablet by mouth daily with breakfast. - diazePAM (VALIUM) 2 mg tablet - valsartan (DIOVAN) 40 mg tablet Take 0.5 tablets by mouth once daily. - rosuvastatin (CRESTOR) 40 mg tablet Take 1 tablet by mouth daily at bedtime. - blood sugar diagnostic (BLOOD GLUCOSE TEST) test strip Use as instructed to monitor glucose. One touch ultra verio test strips. - Blood-Glucose Sensor (FREESTYLE LEEANN 3 SENSOR) mauricio Use new sensor every 14 days to monitor blood glucose. - aspirin, enteric coated (ASPIRIN, ENTERIC COATED) 81 mg EC tablet Take 81 mg by mouth once daily. - Insulin [place], Disposable, (BD ULTRA-FINE RUBIA PEN NEEDLE) 32 gauge x 5/32 ndle BD Ultra-Fine Rubia Pen Needle 32 gauge x 5/32 - allopurinol (ZYLOPRIM) 100 mg tablet Take 100 mg by mouth once daily. - fluticasone (FLONASE) 50 mcg/actuation nasal spray fluticasone propionate 50 mcg/actuation nasal spray,suspension Problem List As Of Date 02/29/2024 Noted Resolved Posterior tibial tendonitis [M76.829] 09/19/2015 [...] testing [Z01.818] 06/07/2019 Coronary artery disease involving tlingit & haida hunt*06/08/2019 Aortoiliac occlusive disease (HCC) [I74.09] 01/02/2020 Acute heart failure with reduced ejection fract*02/16/2023 Status post angioplasty with stent [Z95.820] 02/17/2023 Chronic systolic congestive heart failure (HCC)*05/31/2023 LBBB (left bundle branch block) [I44.7] 05/31/2023 DAV (acute kidney injury) ([facility]) [N17.9] 06/15/2023 LV dysfunction [I51.9] 07/01/2023 Pulmonary hypertension, unspecified ([facility]) [I27.*12/28/2023 Nonrheumatic mitral valve regurgitation [I34.0] 12/28/2023 Presence of heart assist device ([facility]) [Z95.811] 01/03/2024 Encounter Status:Closed by KRISTI WILL on 02/29/24 [facility] CNOVon 02-28-2024 CNOV Office Visit (ENDOLN ) CURTARLETH Valdes ([id number]) 1945 F Date Time Provider Department 02/28/24 12:50 PM MIKEL BARAHONA ENDOLN During your visit today, we recorded the following information about you: Pulse Blood pressure Weight 78/minute 125/65 70.1 kg Mikel Barahona APRN.INTERNET MANAGER 02/28/2024 1:15 PM Signed Endocrinology Follow-up History of Present Illness Arleth Elias is a 78 year old female presents today for follow up of DM Type 2. PMH significant HTN, systolic CHF and cardiomyopathy. Metformin was discontinued in July 2022 due to severe diarrhea. Last Endocrinology visit was with me on 06/02/23. Ozempic was continued and Patient receives Ozempic through patient assistance program. She continues to tolerate Ozempic well and denies side effects. She has been able to wean off of Levemir completely. Last HbA1c 5.4% was 06/02/23. POC HbA1c in office today is 5.6%. Date of Diagnosis: 2018 Last HbA1c: Hemoglobin A1C (%) Date Value 06/10/2022 6.9 08/14/2020 7.3 10/18/2019 7.5 02/01/2019 6.2 Hemoglobin A1C (POCT) (%) Date Value 06/02/2023 5.4 01/27/2023 6.4 11/04/2022 7.5 Complications Microvascular: denies Macrovascular: CAD Health Maintenance Topics Topic Date Due Dilated Retinal Exam 07/14/2023 Diabetic Foot Exam 11/05/2023 Physical Activity: Regular Diet: CHO Controlled Diet SMBG Summary of Personal CGM Findings: Forgot to bring Napartner reader to today's appt Monitors Glucoses 3-4 times daily 90-130 Current DM Related Medications: Current Medications 02/28/2024 DIABETES THERAPIES Medication Dosage Pharm Subclass empagliflozin (JARDIANCE) 10 mg tablet Take 1 tablet by mouth daily with breakfast. Antihyperglycemic - Sodium Glucose Cotransporter-2 (SGLT2) Inhibitors insulin detemir U-100 (LEVEMIR) 100 unit/mL (3 mL) injection pen Inject 20 Units subcutaneously daily at bedtime. Insulin Analogs - Long Acting semaglutide (OZEMPIC) 2 mg/dose (8 mg/3 mL) pen injector Inject 2 mg subcutaneously one time a week. Antihyperglycemic - Glucagon-Like Peptide-1 (GLP-1) Receptor Agonists CARDIOVASCULAR Medication Dosage Pharm Subclass metoprolol succinate ER (TOPROL XL) 25 mg 24 hr tablet Take 1 tablet by mouth as directed. 50 mg AM and 25 mg PM Beta Blockers Cardiac Selective rosuvastatin (CRESTOR) 40 mg tablet Take 1 tablet by mouth daily at bedtime. Antihyperlipidemic - HMG CoA Reductase Inhibitors (statins) valsartan (DIOVAN) 40 mg tablet Take 0.5 tablets by mouth once daily. Angiotensin II Receptor Blockers (ARBs) DIURETICS Medication Dosage Pharm Subclass furosemide (LASIX) 20 mg tablet Take 1 tablet by mouth once daily. Diuretic - Loop spironolactone (ALDACTONE) 25 mg tablet Take 0.5 tablets by mouth once daily. Diuretic - Aldosterone Receptor Antagonist, Non-selective ANTI-PLATELET THERAPIES Medication Dosage Pharm Subclass aspirin, enteric coated (ASPIRIN, ENTERIC COATED) 81 mg EC tablet Take 81 mg by mouth once daily. Salicylate Analgesics clopidogrel (PLAVIX) 75 mg tablet Take 1 tablet by mouth every 24 hours. Platelet Aggregation Inhibitors - Thienopyridine Agents ASPIRIN Medication Dosage Pharm Subclass aspirin, enteric coated (ASPIRIN, ENTERIC COATED) 81 mg EC tablet Take 81 mg by mouth once daily. Salicylate Analgesics OTHER Medication Dosage Pharm Subclass allopurinol (ZYLOPRIM) 100 mg tablet Take 100 mg by mouth once daily. Hyperuricemia Therapy - Xanthine Oxidase Inhibitors blood sugar diagnostic (BLOOD GLUCOSE TEST) test strip Use as instructed to monitor glucose. One touch ultra verio test strips. Medical Supplies and DME - Blood Glucose Tests Blood-Glucose Sensor (FREESTYLE LEEANN 3 SENSOR) mauricio Use new sensor every 14 days to monitor blood glucose. Medical Supplies and DME - Glucose Monitoring Test Supplies diazePAM (VALIUM) 2 mg tablet Antianxiety Agent - Benzodiazepines fluticasone (FLONASE) 50 mcg/actuation nasal spray fluticasone propionate 50 mcg/actuation nasal spray,suspension Nasal Corticosteroids Insulin [place], Disposable, (BD ULTRA-FINE RUBIA PEN NEEDLE) 32 gauge x 5/32 ndle BD Ultra-Fine Rubia Pen Needle 32 gauge x 5/32 Medical Supplies and DME - Insulin [place]-Syringes and Admin Supplies magnesium oxide (MAG-OX) 400 mg (241.3 mg magnesium) tablet TAKE 1 TABLET BY MOUTH TWICE DAILY. TAKE SEPERATELY FROM DOXYCYCLINE Antacid - Magnesium omeprazole (PRILOSEC) 40 mg capsule Take 40 mg by mouth two times a day. Pt confirmed she is taking this medication Gastric Acid Secretion Special Makeup Fx Artist Instructor - Proton Pump Inhibitors (PPIs) Past History, Medications, Allergies PAST MEDICAL HISTORY Diagnosis Date Cardiomyopathy (HCC) Claudication (HCC) DM (diabetes mellitus) (HCC) HTN (hypertension) Incontinence NSVT (nonsustained ventricular tachycardia) (HCC) Sciatica Systolic CHF (HCC) PAST SURGICAL (more content not included)... Normal [facility] HEMOGLOBIN A1C (POC)on 02-27 HbA1c (Bld) [Mass fraction] 5.6 % 4.3 - 5.6 % [facility] Comment on above: Location:[facility], [address], [place], [place], [address] Point of care (POC) Hemoglobin A1c (HGBA1C) testing is intended to assess glucose control and provide a management tool for patients known to have diabetes and their healthcare providers. Target HGBA1C levels may depend on specific clinical circumstances. POC HGBA1C is not intended for use as a diagnostic or screening test; laboratory-based testing should be used for diagnostic purposes. The following information is supplemental and may not be applicable to specific diabetes management situations: The POC device health and wellness advisor provides a normal range of 4.2% to 6.5% for the HGBA1C POC test. However, the [place] [employer] guidelines indicate that patients with HGBA1C in the range of 5.7% to 6.4% are at increased risk for development of diabetes and that intervention by lifestyle modification may be beneficial. A HGBA1C level greater than or equal to 6.5% is considered diagnostic of diabetes, pending confirmatory testing. Use of HGBA1C testing to evaluate glucose control may not be appropriate for patients with hemoglobin variants or other conditions (e.g. anemia) that alter red blood cell lifespan. [facility] [place] 02-14-2024 [place] Telephone (ENDOLN) ARLETH ELIAS ([id number]) 1945 F Date Time Provider Department 02/14/24 MIKEL BARAHONA During your visit today, we recorded the following information about you: Nichelle Corley 02/14/2024 9:49 AM Signed Arleth is calling Mikel Barahona APRN.INTERNET MANAGER today to request if you have received her Ozempic in the office. She spoke to them this past and they said it was en route via [employer]. Please advise. Patient has been identified by name and birthdate. Duration of symptoms: N/A Person calling: self Call patient at: on cell [phone] (home) [phone] (cell) Was an appointment scheduled: No Closing statement: Results or non-symptom based questions: Thank you for calling [facility], your call will be returned within the next business day. Nichelle Rosales Pss Allergies As of Date: 02/14/2024 Noted Allergy Reaction PENICILLINS 06/29/2014 10 - Anaphylaxis 4 - Hives IODINATED CONTRAST MEDIA 12/22/2018 14 - Other: See Comments Comments: Throat itching to some Xray dye >20-30 years ago Date Reviewed: 01/03/2024 Reviewed by: Benjamín Valdez, RN - Fully Assessed Reason for Visit: Patient Request [[id number]] Prescriptions as of 02/15/2024 - furosemide (LASIX) 20 mg tablet Take 1 tablet by mouth once daily. - clopidogrel (PLAVIX) 75 mg tablet Take 1 tablet by mouth every 24 hours. - spironolactone (ALDACTONE) 25 mg tablet Take 0.5 tablets by mouth once daily. - omeprazole (PRILOSEC) 40 mg capsule Take 40 mg by mouth two times a day. Pt confirmed she is taking this medication - magnesium oxide (MAG-OX) 400 mg (241.3 mg magnesium) tablet TAKE 1 TABLET BY MOUTH TWICE DAILY. TAKE SEPERATELY FROM DOXYCYCLINE - metoprolol succinate ER (TOPROL XL) 25 mg 24 hr tablet Take 1 tablet by mouth as directed. 50 mg AM and 25 mg PM - semaglutide (OZEMPIC) 2 mg/dose (8 mg/3 mL) pen injector Inject 2 mg subcutaneously one time a week. - empagliflozin (JARDIANCE) 10 mg tablet Take 1 tablet by mouth daily with breakfast. - diazePAM (VALIUM) 2 mg tablet - insulin detemir U-100 (LEVEMIR) 100 unit/mL (3 mL) injection pen Inject 20 Units subcutaneously daily at bedtime. - valsartan (DIOVAN) 40 mg tablet Take 0.5 tablets by mouth once daily. - rosuvastatin (CRESTOR) 40 mg tablet Take 1 tablet by mouth daily at bedtime. - blood sugar diagnostic (BLOOD GLUCOSE TEST) test strip Use as instructed to monitor glucose. One touch ultra verio test strips. - Blood-Glucose Sensor (FREESTYLE LEEANN 3 SENSOR) mauricio Use new sensor every 14 days to monitor blood glucose. - aspirin, enteric coated (ASPIRIN, ENTERIC COATED) 81 mg EC tablet Take 81 mg by mouth once daily. - Insulin [place], Disposable, (BD ULTRA-FINE RUBIA PEN NEEDLE) 32 gauge x 5/32 ndle BD Ultra-Fine Rubia Pen Needle 32 gauge x 5/32 - allopurinol (ZYLOPRIM) 100 mg tablet Take 100 mg by mouth once daily. - fluticasone (FLONASE) 50 mcg/actuation nasal spray fluticasone propionate 50 mcg/actuation nasal spray,suspension Problem List As Of Date 02/14/2024 Noted Resolved Posterior tibial tendonitis [M76.829] 09/19/2015 [...] testing [Z01.818] 06/07/2019 Coronary artery disease involving tlingit & haida hunt*06/08/2019 Aortoiliac occlusive disease (HCC) [I74.09] 01/02/2020 Acute heart failure with reduced ejection fract*02/16/2023 Status post angioplasty with stent [Z95.820] 02/17/2023 Chronic systolic congestive heart failure (HCC)*05/31/2023 LBBB (left bundle branch block) [I44.7] 05/31/2023 DAV (acute kidney injury) (HCC) [N17.9] 06/15/2023 LV dysfunction [I51.9] 07/01/2023 Pulmonary hypertension, unspecified (HCC) [I27.*12/28/2023 Nonrheumatic mitral valve regurgitation [I34.0] 12/28/2023 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] 01/03/2024 Encounter Status:Closed by KRISTI WILL on 02/15/24 [facility] [place] 02-07-2024 CNPN Telephone (CARDFV) CURTARLETH ([id number]) 1945 F Date Time Provider Department 02/07/24 GILLES REDMAN During your visit today, we recorded the following information about you: Tenisha Shepard RN 02/07/2024 9:37 AM Signed I called pt for another issue, and pt also needs refill for clopidogrel (Plavix) 75 mg daily. Pend/send sent for refill. Pt confirmed understanding. No further questions. Allergies As of Date: 02/07/2024 Noted Allergy Reaction PENICILLINS 06/29/2014 10 - Anaphylaxis 4 - Hives IODINATED CONTRAST MEDIA 12/22/2018 14 - Other: See Comments Comments: Throat itching to some Xray dye >20-30 years ago Date Reviewed: 01/03/2024 Reviewed by: Benjamín Valdez, MYA - Fully Assessed Primary Visit Diagnosis:S/P angioplasty with stent [Z95.820] Order(s):clopidogrel (PLAVIX) 75 mg tabletTake 1 tablet by mouth every 24 hours.Disp: 90 tabletRfl: 3 Prescriptions as of 02/07/2024 - furosemide (LASIX) 20 mg tablet Take 1 tablet by mouth once daily. - clopidogrel (PLAVIX) 75 mg tablet Take 1 tablet by mouth every 24 hours. - spironolactone (ALDACTONE) 25 mg tablet Take 0.5 tablets by mouth once daily. - omeprazole (PRILOSEC) 40 mg capsule Take 40 mg by mouth two times a day. Pt confirmed she is taking this medication - magnesium oxide (MAG-OX) 400 mg (241.3 mg magnesium) tablet TAKE 1 TABLET BY MOUTH TWICE DAILY. TAKE SEPERATELY FROM DOXYCYCLINE - metoprolol succinate ER (TOPROL XL) 25 mg 24 hr tablet Take 1 tablet by mouth as directed. 50 mg AM and 25 mg PM - semaglutide (OZEMPIC) 2 mg/dose (8 mg/3 mL) pen injector Inject 2 mg subcutaneously one time a week. - empagliflozin (JARDIANCE) 10 mg tablet Take 1 tablet by mouth daily with breakfast. - diazePAM (VALIUM) 2 mg tablet - insulin detemir U-100 (LEVEMIR) 100 unit/mL (3 mL) injection pen Inject 20 Units subcutaneously daily at bedtime. - valsartan (DIOVAN) 40 mg tablet Take 0.5 tablets by mouth once daily. - rosuvastatin (CRESTOR) 40 mg tablet Take 1 tablet by mouth daily at bedtime. - blood sugar diagnostic (BLOOD GLUCOSE TEST) test strip Use as instructed to monitor glucose. One touch ultra verio test strips. - Blood-Glucose Sensor (FREESTYLE LEEANN 3 SENSOR) mauricio Use new sensor every 14 days to monitor blood glucose. - aspirin, enteric coated (ASPIRIN, ENTERIC COATED) 81 mg EC tablet Take 81 mg by mouth once daily. - Insulin [place], Disposable, (BD ULTRA-FINE RUBIA PEN NEEDLE) 32 gauge x 5/32 ndle BD Ultra-Fine Rubia Pen Needle 32 gauge x 5/32 - allopurinol (ZYLOPRIM) 100 mg tablet Take 100 mg by mouth once daily. - fluticasone (FLONASE) 50 mcg/actuation nasal spray fluticasone propionate 50 mcg/actuation nasal spray,suspension Problem List As Of Date 02/07/2024 Noted Resolved Posterior tibial tendonitis [M76.829] 09/19/2015 [...] testing [Z01.818] 06/07/2019 Coronary artery disease involving tlingit & haida hunt*06/08/2019 Aortoiliac occlusive disease ([facility]) [I74.09] 01/02/2020 Acute heart failure with reduced ejection fract*02/16/2023 Status post angioplasty with stent [Z95.820] 02/17/2023 Chronic systolic congestive heart failure (HCC)*05/31/2023 LBBB (left bundle branch block) [I44.7] 05/31/2023 DAV (acute kidney injury) ([facility]) [N17.9] 06/15/2023 LV dysfunction [I51.9] 07/01/2023 Pulmonary hypertension, unspecified ([facility]) [I27.*12/28/2023 Nonrheumatic mitral valve regurgitation [I34.0] 12/28/2023 Presence of heart assist device ([facility]) [Z95.811] 01/03/2024 Prescriptions ordered this encounter Disp Refills Start End CLOPIDOGREL 75 MG TABLET 90 t* 3 02/07/2024 02/06/2025 Route: ORAL Sig: Take 1 tablet by mouth every 24 hours. Medications Discontinued During This Encounter Prescriptions - clopidogrel (PLAVIX) 75 mg tablet (Discontinued) Take by mouth every 24 hours. Encounter Status:Closed by BETHANY HINOJOSA on 02/07/24 Normal [facility] MR SHOULDER LT WO CONTon MR SHOULDER LT WO CONT MR SHOULDER LT WO CONT MR LEFT SHOULDER CLINICAL INFORMATION: Chronic shoulder pain.. COMPARISON: None. PROCEDURE: Axial, oblique coronal, and oblique sagittal long TR images of the shoulder were obtained. FINDINGS: ROTATOR CUFF AND ASSOCIATED STRUCTURES Image quality: Images degraded by artifact from the patient's pacemaker. Biceps Tendon: The biceps tendon is normally situated within the bicipital groove. No complete or partial biceps tendon tear is present. Rotator cuff: Supraspinatus: Thinning and heterogeneity distally with no focal tear. Infraspinatus: Mild thinning and bursal surface irregularity distally with no full-thickness tear. Subscapularis: No focal defect. Mild heterogeneity in the distal fibers. Teres minor: Grossly intact. Musculature: Utilizing mild muscular volume loss. No focal irregularity. Bursa: Fluid and thickening at the subacromial subdeltoid bursa superiorly. OSSEOUS STRUCTURES Acromioclavicular joint: Type III acromion process with hypertrophic changes. Encroachment upon the subacromial space. Bones: No Hill-Sachs, reverse Hill-Sachs, or bony Bankart lesions are seen. There are no fractures or regions of abnormal bone marrow signal intensity. GLENOHUMERAL JOINT Joint: Mild degenerative changes. Small joint effusion. Cartilage: Thinning and mild irregularity with no focal osteochondral lesion. Labrum: Limited evaluation with longitudinal irregularity suspected superiorly. Other support structures: No capsular or ligamentous abnormality is seen. IMPRESSION: 1. Limited study due to artifact. 2. Findings of rotator cuff tendinosis with thickening and no focal tear evident. 3. Acromioclavicular degenerative changes with subacromial impingement. Fluid in the subacromial subdeltoid bursa 4. Glenohumeral degenerative changes with suspected labral irregularity. Finalized by Oskar Ramirez MD on 02/04/2024 6:[address] AM [address] [facility] ([id number]) 1945 F Date Time Provider Department 02/03/24 MIKEL BARAHONA During your visit today, we recorded the following information about you: Mally Rucker 02/03/2024 2:23 PM Signed [facility] is calling Mikel Barahona APRN.CNP today to request diabetic clinical notes AND if collected-cgm downloads from 06/30/23-11/30/23 Please advise Phone-[phone] secure vm Patient has been identified by name and birthdate. Duration of symptoms: N/A Person calling: Call patient at: on cell [phone] (home) [phone] (cell) Was an appointment scheduled: No Closing statement: Results or non-symptom based questions: Thank you for calling [facility], your call will be returned within the next business day. Paul Mojica MA 02/03/2024 3:43 PM Signed Attempted to reach Elliot at number listed below. Left detailed message stating patient has not been seen in office since 06/02/23. Allergies As of Date: 02/03/2024 Noted Allergy Reaction PENICILLINS 06/29/2014 10 - Anaphylaxis 4 - Hives IODINATED CONTRAST MEDIA 12/22/2018 14 - Other: See Comments Comments: Throat itching to some Xray dye >20-30 years ago Date Reviewed: 01/03/2024 Reviewed by: Benjamín Valdez, MYA - Fully Assessed Reason for Visit: Patient Update [1234] Prescriptions as of 02/03/2024 - furosemide (LASIX) 40 mg tablet Take 0.5 tablets by mouth once daily. - spironolactone (ALDACTONE) 25 mg tablet Take 0.5 tablets by mouth once daily. - omeprazole (PRILOSEC) 40 mg capsule Take 40 mg by mouth two times a day. Pt confirmed she is taking this medication - magnesium oxide (MAG-OX) 400 mg (241.3 mg magnesium) tablet TAKE 1 TABLET BY MOUTH TWICE DAILY. TAKE SEPERATELY FROM DOXYCYCLINE - metoprolol succinate ER (TOPROL XL) 25 mg 24 hr tablet Take 1 tablet by mouth as directed. 50 mg AM and 25 mg PM - semaglutide (OZEMPIC) 2 mg/dose (8 mg/3 mL) pen injector Inject 2 mg subcutaneously one time a week. - empagliflozin (JARDIANCE) 10 mg tablet Take 1 tablet by mouth daily with breakfast. - diazePAM (VALIUM) 2 mg tablet - clopidogrel (PLAVIX) 75 mg tablet Take by mouth every 24 hours. - insulin detemir U-100 (LEVEMIR) 100 unit/mL (3 mL) injection pen Inject 20 Units subcutaneously daily at bedtime. - valsartan (DIOVAN) 40 mg tablet Take 0.5 tablets by mouth once daily. - rosuvastatin (CRESTOR) 40 mg tablet Take 1 tablet by mouth daily at bedtime. - blood sugar diagnostic (BLOOD GLUCOSE TEST) test strip Use as instructed to monitor glucose. One touch ultra verio test strips. - Blood-Glucose Sensor (FREESTYLE LEEANN 3 SENSOR) mauricio Use new sensor every 14 days to monitor blood glucose. - aspirin, enteric coated (ASPIRIN, ENTERIC COATED) 81 mg EC tablet Take 81 mg by mouth once daily. - Insulin [place], Disposable, (BD ULTRA-FINE RUBIA PEN NEEDLE) 32 gauge x 5/32 ndle BD Ultra-Fine Rubia Pen Needle 32 gauge x 5/32 - allopurinol (ZYLOPRIM) 100 mg tablet Take 100 mg by mouth once daily. - fluticasone (FLONASE) 50 mcg/actuation nasal spray fluticasone propionate 50 mcg/actuation nasal spray,suspension Problem List As Of Date 02/03/2024 Noted Resolved Posterior tibial tendonitis [M76.829] 09/19/2015 [...] testing [Z01.818] 06/07/2019 Coronary artery disease involving tlingit & haida hunt*06/08/2019 Aortoiliac occlusive disease (HCC) [I74.09] 01/02/2020 Acute heart failure with reduced ejection fract*02/16/2023 Status post angioplasty with stent [Z95.820] 02/17/2023 Chronic systolic congestive heart failure (HCC)*05/31/2023 LBBB (left bundle branch block) [I44.7] 05/31/2023 DAV (acute kidney injury) (HCC) [N17.9] 06/15/2023 LV dysfunction [I51.9] 07/01/2023 Pulmonary hypertension, unspecified (HCC) [I27.*12/28/2023 Nonrheumatic mitral valve regurgitation [I34.0] 12/28/2023 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] 01/03/2024 Encounter Status:Closed by PAUL SWARTZ on 02/03/24 Normal [facility] Basic metabolic 2000 panelon 01-25-2024 Anion gap [Moles/Vol] 12 mmol/L Normal 8-15 [facility] Comment on above: Order Comment: Speci men Type: BLOOD SPECIMENOrdering Facility: [facility] Address: [address] [place] [address] Performed By: #### 2 4321-2 ####[facility] LABCLIA [id number] [place] [address] Calcium [Mass/Vol] 9.7 mg/dL Normal 8.5-10.2 [facility] Comment on above: Order Comment: Speci men Type: BLOOD SPECIMENOrdering Facility: [facility] Address: [address] [place] [address] Performed By: #### 2 4321-2 ####[facility] LABCLIA [id number] [place] [address] Chloride [Moles/Vol] 102 mmol/L Normal 98-107 [facility] Comment on above: Order Comment: Speci men Type: BLOOD SPECIMENOrdering Facility: [facility] Address: [address] [place] [address] Performed By: #### 2 4321-2 ####[facility] LABCLIA [id number] [place] [address] CO2 [Moles/Vol] 25 mmol/L Normal 22-30 [facility] Comment on above: Order Comment: Speci men Type: BLOOD SPECIMENOrdering Facility: [facility] Address: [address] [place] [address] Performed By: #### 2 4321-2 ####[facility] LABCLIA [id number] [place] [address] Creatinine [Mass/Vol] 1.36 mg/dL High 0.58-0.96 [facility] Comment on above: Order Comment: [place] andrew Type: BLOOD SPECIMENOrdering Facility: [facility] Address: [address] [id number] Performed By: #### 2 4321-2 ####[facility] LABCLIA [id number] [place] [address] Creatinine and Glomerular filtration rate.predicted panel (S/P/Bld) 40 mL/min/1.73m??? Low >=60 [facility] Comment on above: Order Comment: [place] andrew Type: BLOOD SPECIMENOrdering Facility: [facility] Address: [address] [place], [place] [id number] Result Comment: Tanisha mated Glomerular Filtration Rate [...] actual GFR. Performed By: #### 2 4321-2 ####[facility] LABCLIA [id number] [place] [address] Glucose [Mass/Vol] 123 mg/dL High 74-99 [facility] Comment on above: Order Comment: [place] andrew Type: BLOOD SPECIMENOrdering Facility: [facility] Address: [address] [id number] Result Comment: The [place] Diabetes Association (ADA) provides guidance for cutoff [...] Standards of Medical Care in Diabetes 2016, [place] [employer]. Diabetes Care. 2016.39(Suppl 1). Performed By: #### 2 4321-2 ####[facility] LABCLIA [id number] [place] [address] Potassium [Moles/Vol] 4.6 mmol/L Normal 3.7-5.1 [facility] Comment on above: Order Comment: Speci men Type: BLOOD SPECIMENOrdering Facility: [facility] Address: [address] [place] [address] Performed By: #### 2 4321-2 ####[facility] LABCLIA [id number] [place] [address] Sodium [Moles/Vol] 139 mmol/L Normal 136-144 [facility] Comment on above: Order Comment: Speci men Type: BLOOD SPECIMENOrdering Facility: [facility] Address: [address] [place] [address] Performed By: #### 2 4321-2 ####[facility] LABCLIA [id number] [place] [address] Urea nitrogen [Mass/Vol] 32 mg/dL High 7-21 [facility] [facility] Comment on above: Order Comment: Speci men Type: BLOOD SPECIMENOrdering Facility: [facility] Address: [address] [place] [address] Performed By: #### 2 4321-2 ####[facility] LABCLIA [id number] [place] [address] [facility] BAS METAB 2000 PNL SERPL on 01-25-2024 Anion gap [Moles/Vol] 12 mmol/L 8 - 15 mmol/L [facility] Calcium [Mass/Vol] 9.7 mg/dL 8.5 - 10. 2 mg/dL [facility] Chloride [Moles/Vol] 102 mmol/L 98 - 10 7 mmol/L [facility] CO2 [Moles/Vol] 25 mmol/L 22 - 30 mmol/L [facility] Creatinine [Mass/Vol] 1.36 mg/dL High 0.58 - 0.96 mg/dL [facility] GFR/1.73 sq M.predicted CKD-EPI (S/P/Bld) [Vol rate/Area] 40 Low - PINF [facility] Comment on above: Estimated Glomerular Filtration Rate (eGFR) is calculated using the 2020 CKD-EPI creatinine equation. This equation utilizes serum creatinine, sex, and age as parameters. The creatinine assay has traceable calibration to isotope dilution-mass spectrometry. Refer to KDIGO guidelines for clinical interpretation. In patients with unstable renal function, e.g. those with acute kidney injury, the eGFR may not accurately reflect actual GFR. Glucose [Mass/Vol] 123 mg/dL High 74 - 99 mg/dL [facility] Comment on above: The [place] Diabete s Association (ADA) provides guidance for cutoff values [...] Standards of Medical Care in Diabetes 2016, [place] Diabetes Association. Diabetes Care. 2016.39(Suppl 1). Interpretation and review of laboratory results Abnormal [facility] Potassium [Moles/Vol] 4.6 mmol/L 3.7 - 5.1 mmol/L [facility] Sodium [Moles/Vol] 139 mmol/L 136 - 144 mmol/L [facility] Urea nitrogen [Mass/Vol] 32 mg/dL High 7 - 21 mg/dL [facility] Specimen Type: BLOOD SPECIMEN [facility]ing [facility] Address: [address] [place] [address] Original Ordering Provider: STANLEY RIVAS [facility] COMP METAB 2000 PNL SERP Jh 01-03-2024 Albumin [Mass/Vol] 4.2 g/dL 3.9 - 4.9 g/dL [facility] ALP [Catalytic activity/Vol] 135 U/L High 34 - 123 U/L [facility] ALT [Catalytic activity/Vol] 10 U/L 7 - 38 U/L [facility] Anion gap [Moles/Vol] 9 mmol/L 8 - 15 mmol/L [facility] Calcium [Mass/Vol] 9.4 mg/dL 8.5 - 10. 2 mg/dL [facility] AST SERPL-CCNC 19 U/L 13 - 35 U/L [facility] BILIRUB SERPL-MCNC 0.5 mg/dL 0.2 - 1.3 mg/dL [facility] PROT SERPL-MCNC 6.8 g/dL 6.3 - 8. 0 g/dL [facility] Chloride [Moles/Vol] 103 mmol/L 98 - 10 7 mmol/L [facility] CO2 [Moles/Vol] 26 mmol/L 22 - 30 mmol/L [facility] Creatinine [Mass/Vol] 1.24 mg/dL High 0.58 - 0.96 mg/dL [facility] GFR/1.73 sq M.predicted CKD-EPI (S/P/Bld) [Vol rate/Area] 45 Low - PINF [facility] Comment on above: Estimated Glomerular Filtration Rate (eGFR) is calculated using the 2020 CKD-EPI creatinine equation. This equation utilizes serum creatinine, sex, and age as parameters. The creatinine assay has traceable calibration to isotope dilution-mass spectrometry. Refer to KDIGO guidelines for clinical interpretation. In patients with unstable renal function, e.g. those with acute kidney injury, the eGFR may not accurately reflect actual GFR. Glucose [Mass/Vol] 135 mg/dL High 74 - 99 mg/dL [facility] Comment on above: The [place] Diabete s Association (ADA) provides guidance for cutoff values [...] Standards of Medical Care in Diabetes 2016, [place] Diabetes Association. Diabetes Care. 2016.39(Suppl 1). Interpretation and review of laboratory results Abnormal [facility] Potassium [Moles/Vol] 4.8 mmol/L 3.7 - 5.1 mmol/L [facility] Sodium [Moles/Vol] 138 mmol/L 136 - 144 mmol/L [facility] Urea nitrogen [Mass/Vol] 21 mg/dL 7 - 21 mg/dL [facility] Specimen Type: BLOOD SPECIMEN [facility] Address: [address] [place] [address] Original Ordering Provider: STANLEY RIVAS [facility] CNOVon 01-03-2024 CNOV Office Visit (VASSAV ) ARLETH ELIAS ([id number]) 1945 F Date Time Provider Department 01/03/24 3:45 PM ROSSY ARROYO During your visit today, we recorded the following information about you: Rossy Arroyo MD 01/03/2024 3:30 PM Signed [facility] [place] DEPARTMENT OF VASCULAR SURGERY OUTPATIENT VISIT DATE January 03, 2024 OUTPATIENT VISIT TYPE ESTABLISHED SERVICE DATE: 01/03/2024 SERVICE TIME: 3:13 PM PRIMARY CARE PHYSICIAN: Radha Little, INTERNET MANAGER, INTERNET MANAGER HISTORY OF PRESENT ILLNESS: Ms. Elias is a 78 year old female who presents today for a vascular surgery follow-up visit for her PAD. She is s/p ax bifem bypass in 2019 for aortoiliac disease. No claudication. Walks one mile without trouble. Feels great since her PPM. On DAPT. PAST MEDICAL HISTORY Diagnosis Date Cardiomyopathy (HCC) [...] year around age 36 Vaping Use Vaping status: Never Used Substance Use Topics Alcohol use: Not Currently Drug use: Never MEDICATIONS: omeprazole (PRILOSEC) 40 mg capsule Take 40 mg by mouth two times a day. Pt confirmed she is taking this medication metoprolol succinate ER (TOPROL XL) 25 mg 24 hr tablet Take 1 tablet by mouth as directed. 50 mg AM and 25 mg PM empagliflozin (JARDIANCE) 10 mg tablet Take 1 tablet by mouth daily with breakfast. furosemide (LASIX) 40 mg tablet Take 0.5 tablets by mouth once daily. clopidogrel (PLAVIX) 75 mg tablet Take by mouth every 24 hours. valsartan (DIOVAN) 40 mg tablet Take 0.5 tablets by mouth once daily. allopurinol (ZYLOPRIM) 100 mg tablet Take 100 mg by mouth once daily. spironolactone (ALDACTONE) 25 mg tablet Take 0.5 tablets by mouth once daily. magnesium oxide (MAG-OX) 400 mg (241.3 mg magnesium) tablet TAKE 1 TABLET BY MOUTH TWICE DAILY. TAKE SEPERATELY FROM DOXYCYCLINE semaglutide (OZEMPIC) 2 mg/dose (8 mg/3 mL) pen injector Inject 2 mg subcutaneously one time a week. diazePAM (VALIUM) 2 mg tablet insulin detemir U-100 (LEVEMIR) 100 unit/mL (3 mL) injection pen Inject 20 Units subcutaneously daily at bedtime. rosuvastatin (CRESTOR) 40 mg tablet Take 1 tablet by mouth daily at bedtime. blood sugar diagnostic (BLOOD GLUCOSE TEST) test strip Use as instructed to monitor glucose. One touch ultra verio test strips. Blood-Glucose Sensor (FREESTYLE LEEANN 3 SENSOR) mauricio Use new sensor every 14 days to monitor blood glucose. aspirin, enteric coated (ASPIRIN, ENTERIC COATED) 81 mg EC tablet Take 81 mg by mouth once daily. (Patient not taking: Reported on 01/03/2024) Insulin [place], Disposable, (BD ULTRA-FINE RUBIA PEN NEEDLE) 32 gauge x 5/32 ndle BD Ultra-Fine Rubia Pen Needle 32 gauge x 5/32 fluticasone (FLONASE) 50 mcg/actuation nasal spray fluticasone propionate 50 mcg/actuation nasal spray,suspension ALLERGIES: ALLERGIES Allergen Reactions Penicillins Anaphylaxis, Hives Iodinated Contrast * Other: See Comments Throat itching to some Xray dye >20-30 years ago PHYSICAL EXAM: There were no vitals taken for this visit. Incisions all well healed. Palp fem and pedal pulses B. Palp radial pulses B. Diagnostic tests reviewed for today's visit: US LEG ARTERIAL PERIPH UNL VAS LAB Order: [id number] Status: Preliminary result Visible to patient: No (not released) Next appt: 02/28/2024 at 12:50 PM in ENDOCRINOLOGY (Mikel Barahona, [employer] SURFACE HEATER OPERATOR.INTERNET MANAGER) Dx: PAD (peripheral artery disease) (HCC) 0 Result Notes Narrative Non-Invasive Vascular Laboratory [facility] Lower Extremity Arterial Duplex Unilateral - Right Date of service/time: 01/03/2024 2:15:05 PM Name: MISS ARLETH ELIAS Date of : 1945 Age: 78 years Gender: F Clinical Indication Right Ax-fem and fem-fem graft 01/02/2020. TECHNIQUE -------- An arterial duplex ultrasound examination was performed, including grayscale imaging and color Doppler and spectral Doppler examination of the below mentioned arteries. FINDINGS -------- RIGHT ARTERIES Common femoral distal: PSV: 64 cm/s. EDV: 0 cm/s. Multiphasic waveform. VESSEL/GRAFT Subclavian artery distal: PSV: 194 cm/s. EDV: 0 cm/s. Multiphasic waveform. Axillary-femoral graft proximal anastomosis: PSV: 223 cm/s. EDV: 0 cm/s. Multiphasic waveform. Axillary-femoral graft proximal: PSV: 198 cm/s. EDV: 0 cm/s. Multiphasic wavef (more content not included)... Normal [facility] Comprehensive metabolic 2000 panelon 01-03-2024 Albumin [Mass/Vol] 4.2 g/dL Normal 3.9-4.9 [facility] Comment on above: Order Comment: Speci men Type: BLOOD SPECIMENOrdering Facility: [facility] Address: [address] [place] [address] Performed By: #### 2 4323-8 ####[facility] LABCLIA [id number] [place] [address] ALP [Catalytic activity/Vol] 135 U/L High 34-123 [facility] Comment on above: Order Comment: Speci men Type: BLOOD SPECIMENOrdering Facility: [facility] Address: [address] [place] [address] Performed By: #### 2 4323-8 ####[facility] LABCLIA [id number] [place] [address] ALT [Catalytic activity/Vol] 10 U/L Normal 7-38 [facility] Comment on above: Order Comment: Speci men Type: BLOOD SPECIMENOrdering Facility: [facility] Address: [address] [place] [address] Performed By: #### 2 4323-8 ####[facility] LABCLIA [id number] [place] [address] Anion gap [Moles/Vol] 9 mmol/L Normal 8-15 [facility] Comment on above: Order Comment: Speci men Type: BLOOD SPECIMENOrdering Facility: [facility] Address: [address] [place] [address] Performed By: #### 2 4323-8 ####[facility] LABCLIA [id number] [place] [address] AST [Catalytic activity/Vol] 19 U/L Normal 13-35 [facility] Comment on above: Order Comment: Speci men Type: BLOOD SPECIMENOrdering Facility: [facility] Address: [address] [place] [address] Performed By: #### 2 4323-8 ####[facility] LABCLIA [id number] [place] [address] Bilirubin [Mass/Vol] 0.5 mg/dL Normal 0.2-1.3 [facility] Comment on above: Order Comment: Speci men Type: BLOOD SPECIMENOrdering Facility: [facility] Address: [address] [place] [address] Performed By: #### 2 4323-8 ####[facility] LABCLIA [id number] [place] [address] Calcium [Mass/Vol] 9.4 mg/dL Normal 8.5-10.2 [facility] Comment on above: Order Comment: Speci men Type: BLOOD SPECIMENOrdering Facility: [facility] Address: [address] [place] [address] Performed By: #### 2 4323-8 ####[facility] LABCLIA [id number] [place] [address] Chloride [Moles/Vol] 103 mmol/L Normal 98-107 [facility] Comment on above: Order Comment: Speci men Type: BLOOD SPECIMENOrdering Facility: [facility] Address: [address] [place] [address] Performed By: #### 2 4323-8 ####[facility] LABCLIA [id number] [place] [address] CO2 [Moles/Vol] 26 mmol/L Normal 22-30 [facility] Comment on above: Order Comment: Speci men Type: BLOOD SPECIMENOrdering Facility: [facility] Address: [address] [place] [address] Performed By: #### 2 4323-8 ####[facility] LABCLIA [id number] [place] [address] Creatinine [Mass/Vol] 1.24 mg/dL High 0.58-0.96 [facility] Comment on above: Order Comment: Speci men Type: BLOOD SPECIMENOrdering Facility: [facility] Address: [address] [place] [address] Performed By: #### 2 4323-8 ####[facility] LABCLIA [id number] [place] [address] Creatinine and Glomerular filtration rate.predicted panel (S/P/Bld) 45 mL/min/1.73m??? Low >=60 [facility] Comment on above: Order Comment: [place] andrew Type: BLOOD SPECIMENOrdering Facility: [facility] Address: [address] [place] [address] Result Comment: Tanisha mated Glomerular Filtration Rate [...] reflect actual GFR. Performed By: #### 2 4323-8 ####[facility] LABCLIA [id number] [place] [address] Glucose [Mass/Vol] 135 mg/dL High 74-99 [facility] Comment on above: Order Comment: [place] andrew Type: BLOOD SPECIMENOrdering Facility: [facility] Address: [address] [place] [id number] Result Comment: The [place] Diabetes Association (ADA) provides guidance for cutoff [...] Standards of Medical Care in Diabetes 2016, [place] Diabetes Association. Diabetes Care. 2016.39(Suppl 1). Performed By: #### 2 4323-8 ####[facility] LABCLIA [id number] [place] [address] Potassium [Moles/Vol] 4.8 mmol/L Normal 3.7-5.1 [facility] Comment on above: Order Comment: [place] andrew Type: BLOOD SPECIMENOrdering Facility: [facility] Address: [address] [place] [address] Performed By: #### 2 4323-8 ####[facility] LABCLIA [id number] [place] [address] Protein [Mass/Vol] 6.8 g/dL Normal 6.3-8.0 [facility] Comment on above: Order Comment: Speci men Type: BLOOD SPECIMENOrdering Facility: [facility] Address: [address] [place] [address] Performed By: #### 2 4323-8 ####[facility] LABCLIA [id number] [place] [address] Sodium [Moles/Vol] 138 mmol/L Normal 136-144 [facility] Comment on above: Order Comment: Speci men Type: BLOOD SPECIMENOrdering Facility: [facility] Address: [address] [place] [address] Performed By: #### 2 4323-8 ####[facility] LABCLIA [id number] [place] [address] Urea nitrogen [Mass/Vol] 21 mg/dL Normal 7-21 [facility] Comment on above: Order Comment: Speci men Type: BLOOD SPECIMENOrdering Facility: [facility] Address: [address] [place] [address] Performed By: #### 2 4323-8 ####[facility] LABCLIA [id number] [place] [address] NT-proBNP [facility] 01-02 Natriuretic peptide.B prohormone N-Terminal [Mass/Vol] 1575 pg/mL High <450 [facility] Comment on above: Order Comment: Speci men Type: BLOOD SPECIMEN [facility] Address: [address] [place] [address] Performed By: #### 2 777-1, 00932-0, 1751-7 #### [facility] LAB CLIA [id number] [address] [place] [address] PVR ANK PRESS PHIL VAS LABon 01-03-2024 PVR ANK PRESS PHIL VAS LAB Non-Invasive Vascular Laboratory [facility] Lower Extremity Arterial Physiology Study Bilateral/Complete Date of service/time: 01/03/2024 1:56:26 PM Name: MISS ARLETH ELIAS Date of : 1945 Age: 78 years Gender: F Clinical Indication Right Ax-fem and fem-fem graft 01/02/2020. TECHNIQUE -------- An arterial physiological examination was performed, including measurement of blood pressures using continuous wave Doppler and recording of plethysmographic with or without Doppler waveforms at the below-mentioned limb segments. FINDINGS -------- RIGHT SIDE AT REST Right Pressures Brachial: 132 mmHg Ankle dorsalis pedis: greater than 255 mmHg TIARA: greater than 1.89 Non-compressible arteries, TIARA not accurate. Ankle posterior tibial: greater than 255 mmHg TIARA: 1.89 Digit: 117 mmHg Right PVR Waveforms Ankle: Mildly dampened. Transmetatarsal: Mildly dampened. Digit: Mildly dampened. LEFT SIDE AT REST Left Pressures Brachial: 135 mmHg Ankle dorsalis pedis: greater than 255 mmHg TIARA: greater than 1.89 Non-compressible arteries, TIARA not accurate. Ankle posterior tibial: greater than 255 mmHg TIARA: 1.89 Digit: 92 mmHg Left PVR Waveforms Ankle: Mildly dampened. Transmetatarsal: Mildly dampened. Digit: Mildly dampened. IMPRESSION Irregular cardiac rhythm noted. Compared to prior study of 10/09/2021, No significant change in waveforms. RIGHT SIDE Resting right ankle brachial index: greater than 1.89 Right toe brachial index: 0.87 Non-compressible vessels, results called by PVR tracings. Normal toe brachial index at rest in the right leg. Right ankle: Mild disease at rest. LEFT SIDE Resting left ankle brachial index: greater than 1.89 Left toe brachial index: 0.68 Non-compressible vessels, results called by PVR tracings. Abnormal toe brachial index at rest is evidence of peripheral artery disease. Left ankle: Mild disease at rest. Technologist: Erasto ORTIZ, RVT Ordering physician: JANNY JAY Interpreting physician: Justin Og MD, JERRY Final [employer] [facility] Image : [id number] See Link below for Image Normal [facility] US LEG ARTERIAL PERIPH UNL V LABon 01-03-2024 US LEG ARTERIAL PERIPH UNL VAS LAB Non-Invasive Vascular Laboratory [facility] Lower Extremity Arterial Duplex Unilateral - Right Date of service/time: 01/03/2024 2:15:05 PM Name: MISS ARLETH ELIAS Date of : 1945 Age: 78 years Gender: F Clinical Indication Right Ax-fem and fem-fem graft 01/02/2020. TECHNIQUE -------- An arterial duplex ultrasound examination was performed, including grayscale imaging and color Doppler and spectral Doppler examination of the below mentioned arteries. FINDINGS -------- RIGHT ARTERIES Common femoral distal: PSV: 64 cm/s. EDV: 0 cm/s. Multiphasic waveform. VESSEL/GRAFT Subclavian artery distal: PSV: 194 cm/s. EDV: 0 cm/s. Multiphasic waveform. Axillary-femoral graft proximal anastomosis: PSV: 223 cm/s. EDV: 0 cm/s. Multiphasic waveform. Axillary-femoral graft proximal: PSV: 198 cm/s. EDV: 0 cm/s. Multiphasic waveform. Axillary-femoral graft mid: PSV: 157 cm/s. EDV: 0 cm/s. Multiphasic waveform. Axillary-femoral graft distal: PSV: 132 cm/s. EDV: 0 cm/s. Multiphasic waveform. Axillary-femoral graft distal anastomosis: PSV: 84 cm/s. EDV: 0 cm/s. Multiphasic waveform. Femoral-femoral graft proximal anastomosis: PSV: 104 cm/s. EDV: 0 cm/s. Multiphasic waveform. Femoral-femoral graft proximal: PSV: 94 cm/s. EDV: 0 cm/s. Multiphasic waveform. Femoral-femoral graft mid: PSV: 70 cm/s. EDV: 0 cm/s. Multiphasic waveform. Femoral-femoral graft distal: PSV: 63 cm/s. EDV: 0 cm/s. Multiphasic waveform. Femoral-femoral graft distal anastomosis: PSV: 69 cm/s. EDV: 0 cm/s. Multiphasic waveform. LEFT ARTERIES Common femoral distal: PSV: 88 cm/s. EDV: 0 cm/s. Multiphasic waveform. IMPRESSION RIGHT SIDE Axillary-femoral graft : patent . Femoral-femoral graft : patent . Technologist: Erasto ORTIZ, RVT Ordering physician: JANNY JAY Interpreting physician: Justin Og MD, RPVI Final [employer] [facility] Image : [id number] See Link below for Image Normal [facility] US Lower extremity arteryon 01-03-2024 Non-Invasive Vascular Laboratory [facility] Lower Extremity Arterial Duplex Unilateral - Right Date of service/time: 01/03/2024 2:15:05 PM Name: MISS ARLETH ELIAS Date of : 1945 Age: 78 years Gender: F Clinical Indication Right Ax-fem and fem-fem graft 01/02/2020. TECHNIQUE -------- An arterial duplex ultrasound examination was performed, including grayscale imaging and color Doppler and spectral Doppler examination of the below mentioned arteries. FINDINGS -------- RIGHT ARTERIES Common femoral distal: PSV: 64 cm/s. EDV: 0 cm/s. Multiphasic waveform. VESSEL/GRAFT Subclavian artery distal: PSV: 194 cm/s. EDV: 0 cm/s. Multiphasic waveform. Axillary-femoral graft proximal anastomosis: PSV: 223 cm/s. EDV: 0 cm/s. Multiphasic waveform. Axillary-femoral graft proximal: PSV: 198 cm/s. EDV: 0 cm/s. Multiphasic waveform. Axillary-femoral graft mid: PSV: 157 cm/s. EDV: 0 cm/s. Multiphasic waveform. Axillary-femoral graft distal: PSV: 132 cm/s. EDV: 0 cm/s. Multiphasic waveform. Axillary-femoral graft distal anastomosis: PSV: 84 cm/s. EDV: 0 cm/s. Multiphasic waveform. Femoral-femoral graft proximal anastomosis: PSV: 104 cm/s. EDV: 0 cm/s. Multiphasic waveform. Femoral-femoral graft proximal: PSV: 94 cm/s. EDV: 0 cm/s. Multiphasic waveform. Femoral-femoral graft mid: PSV: 70 cm/s. EDV: 0 cm/s. Multiphasic waveform. Femoral-femoral graft distal: PSV: 63 cm/s. EDV: 0 cm/s. Multiphasic waveform. Femoral-femoral graft distal anastomosis: PSV: 69 cm/s. EDV: 0 cm/s. Multiphasic waveform. LEFT ARTERIES Common femoral distal: PSV: 88 cm/s. EDV: 0 cm/s. Multiphasic waveform. IMPRESSION RIGHT SIDE Axillary-femoral graft : patent . Femoral-femoral graft : patent . Technologist: Erasto ORTIZ, RVT Ordering physician: JANNY JAY Interpreting physician: Justin Og MD, RPVI Final See Link below for Image [facility] US.doppler Extremity arterie s - bilateral for physiologic artery studyon 01-03-2024 Non-Invasive Vascular Laboratory [facility] Lower Extremity Arterial Physiology Study Bilateral/Complete Date of service/time: 01/03/2024 1:56:26 PM Name: MISS ARLETH ELIAS Date of : 1945 Age: 78 years Gender: F Clinical Indication Right Ax-fem and fem-fem graft 01/02/2020. TECHNIQUE -------- An arterial physiological examination was performed, including measurement of blood pressures using continuous wave Doppler and recording of plethysmographic with or without Doppler waveforms at the below-mentioned limb segments. FINDINGS -------- RIGHT SIDE AT REST Right Pressures Brachial: 132 mmHg Ankle dorsalis pedis: greater than 255 mmHg TIARA: greater than 1.89 Non-compressible arteries, TIARA not accurate. Ankle posterior tibial: greater than 255 mmHg TIARA: 1.89 Digit: 117 mmHg Right PVR Waveforms Ankle: Mildly dampened. Transmetatarsal: Mildly dampened. Digit: Mildly dampened. LEFT SIDE AT REST Left Pressures Brachial: 135 mmHg Ankle dorsalis pedis: greater than 255 mmHg TIARA: greater than 1.89 Non-compressible arteries, TIARA not accurate. Ankle posterior tibial: greater than 255 mmHg TIARA: 1.89 Digit: 92 mmHg Left PVR Waveforms Ankle: Mildly dampened. Transmetatarsal: Mildly dampened. Digit: Mildly dampened. IMPRESSION Irregular cardiac rhythm noted. Compared to prior study of 10/09/2021, No significant change in waveforms. RIGHT SIDE Resting right ankle brachial index: greater than 1.89 Right toe brachial index: 0.87 Non-compressible vessels, results called by PVR tracings. Normal toe brachial index at rest in the right leg. Right ankle: Mild disease at rest. LEFT SIDE Resting left ankle brachial index: greater than 1.89 Left toe brachial index: 0.68 Non-compressible vessels, results called by PVR tracings. Abnormal toe brachial index at rest is evidence of peripheral artery disease. Left ankle: Mild disease at rest. Technologist: Erasto ORTIZ, RVT Ordering physician: JANNY JAY Interpreting physician: Justin Og MD, RPVI Final See Link below for Image [facility] CNOVon 12-28-2023 CNOV Office Visit (CACHFV ) ARLETH ELIAS ([id number]) 1945 F Date Time Provider Department 12/28/23 1:30 PM STANLEY STRANGE During your visit today, we recorded the following information about you: Pulse Blood pressure Weight 80/minute 114/76 68.8 kg Stanley Strange MD 12/28/2023 1:56 PM Signed Thank you for your visit. It was great to see you today! PLEASE READ ALL THE INSTRUCTIONS Medication changes: none Blood tests: ordered for today Referral to other specialties: Additional Testing: Follow up Visit: 6 months with echo. Other instructions: Engage in 30 minutes of continuous exercise at least 4 days per week if you can tolerate Please take your blood pressures, heart rate, and weight daily. Please notify us via Reelation if your Systolic BP (top number) < [...] you have any change in medical conditions/new diagnosis/hospitaliza tions. Your medications may interact with new medication or new diagnosis. Please notify your providers to check/monitor for interractions Avoid NSAIDS- Ibuprofen, aleve, motrin inview of heart kidney injury risk Please send a Hydro-Run message or call with any questions or concerns: Outpatient Number: [phone] Thank you, Stanley Strange MD Advanced Heart Failure and Transplant [facility] [address] [place] [address] For [facility] patients , contact: [facility]- Section Of Heart Failure and Cardiac Transplant Medicine Heart [facility] [place] [facility] - Desk [address] [place] [address] Nurse Line and for Refills- call [phone] [facility] Scheduling Line- to make appointments- call [phone] Stanley Strange MD 12/28/2023 5:21 PM Signed [facility] [place] [facility] SECTION OF HEART FAILURE and CARDIAC TRANSPLANT MEDICINE [facility] OUTPATIENT VISIT DATE December 28, 2023 OUTPATIENT VISIT TYPE Established PRIMARY CARE PHYSICIAN: Radha Little, INTERNET MANAGER ([facility]) [address] [place] [address] CHIEF COMPLAINT: Follow Up HISTORY OF PRESENT ILLNESS: Arleth Elias is a 78 year old female with a medical history that includes heart failure with recovered LVEF (25% --> 61%) and newly reduced again, CAD now s/p PCI to LAD 02/2023, HTN, HLD PVD s/p right axillobifemoral bypass 12/2019, DM who follows with Dr. Patel. She has a hx of NICM since [...] diuretics increased and referral to EP for TAIL DOGGER-D 06/14 - follow up for volume assessment - sxs slightly improved and saw EP with plans for TAIL DOGGER -D. 07/26 - s/p CT-D, feeling improved. Interval History: Arleth Elias was last seen in this clinic on 07/27/23. Since the last visit Arleth Elias, followed with Dr. Polk and Dr. patel. On follow up today, she reports feeling well. She states that her summer has been stressful due to her husbands medical issues. She does note some decreased energy - but she isn't sure if it is due to stress/motivation issues etc. She denies any edema, no chest pain/pressure/discomf ort, no dyspnea with exertion, no nausea, vomiting, no orthopnea, no PND. Weight has been stable. No sudden weight fluctuations. No lightheaded, no syncope. Had EGD and was told she had some inflammation - aspirin stopped for the past few wks. Activity/Exercise: not doing much. Going to choir and muslim. Home BP: 110s/70s. CV Problem List/Medical History: Heart failure with reduced EF: suspect mostly non-ischemic CM with obstructive mLAD disease. Echo 10/04/23: LVEF 25%, LVEDD 5.4cm. RVSF wnl S/p TAIL DOGGER-D 07/02/23 Echo 05/13 (more content not included)... Normal [facility] H PYLORI SCREENon 12-06-2023 H. pylori Org specific cx Ql (Guerline fld) Negative Normal NEG [facility] Comment on above: Performed By: #### 4 4015-6 #### [facility] ([id number]) [address] [place] [address], [address] [place] [address] Surgical Pathologyon 024 Surgical Pathology Normal [facility] Comment on above: Result Comment: [facility] [address] [place] [address] Surgical Pathology Consultation Patient Name:ARLETH ELIAS:1945 (Age: 78)Gender:FTaken:12/06/2023eported:12/08/2023hysician(s):Sheila Little D.O. ([phone])Copy To: Rec. #:[id number]: #[id number] Final Pathologic Diagnosis Antrum biopsy: Gastric antrum mucosa with changes suggestive of chemical or reactive gastropathy. No intestinal metaplasia or dysplasia. No Helicobacter pylori organisms are seen on routine sections. Report Electronically Signed Out wak/12/08/2023Khao Casillas MD Interpretation performed at [facility], [address] [place] [address], License number: [id number]. Clinical History Abnormal CT scan, left upper quadrant pain. Gross Description Received in formalin labeled CURT, Antrum BX are three light dixon soft tissue bits, 0.4-0.5 cm. The specimen is filtered and entirely submitted in a single cassette. (1, ns, [id number],m8) DM. dm/12/07/2023SSI Specimen(s) Received Antrum biopsy Fee Codes(s): 1; 04620 XR SHOULDER LT MIN 2 VWSon 0 [...] Ramirez MD on 10/28/2023 9:30 AM Normal [facility] CNOVon 10-21-2023 CNOV Office Visit (CARDLO ) ARLETH ELIAS ([id number]) 1945 F Date Time Provider Department 10/21/23 3:00 PM CHALO PATEL During your visit today, we recorded the following information about you: Pulse Blood pressure Weight 83/minute 125/60 69.8 kg Chalo Patel, 10/21/2023 5:27 PM Signed [facility] [place] SECTION OF REGIONAL CARDIOLOGY October 21, 2023 Outpatient VISIT TYPE Established PRIMARY CARE PHYSICIAN: Grayson Vega, [address] [place] [address] HISTORY OF PRESENT ILLNESS: Ms. Elias is a 78 year old female with a past medical history of [employer] TAIL DOGGER-D placed 06/30/2023, chronic systolic heart failure EF on last echo 25%, nonischemic cardiomyopathy, CAD status post [facility] on 06/07/2019 with 50-70% stenosis of the [...] have more energy after she has the TAIL DOGGER-D. She denies having any: chest pain, palpitations, orthopnea, LE edema, presyncope/syncope, N/V, bleeding, or other significant symptoms. TAIL DOGGER-D was placed 06/30/2023. She was seen last [...] to the mailbox previous to having the TAIL DOGGER placed. She lost weight since starting ozempic [...] to go to the pool after her TAIL DOGGER placement. Family, father had cancer. Mother was in her early 60s with CABG and a pacemaker. 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 IMPRESSION: Encounter Diagnosis ICD-10-CM 1. HFrEF (heart failure with reduced ejection fraction) ([facility]) I50.20 COMPLETE BLOOD COUNT NT PRO BNP 2. Cardiomyopathy, unspecified type ([facility]) I42.9 NT PRO BNP 3. 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 I25.10 4. Essential hypertension I10 BASIC METABOLIC PANEL 5. Mixed hyperlipidemia E78.2 6. Hyperlipidemia associated with type 2 diabetes mellitus ([facility]) ([facility]) E11.69 E78.5 7. Nonrheumatic mitral valve regurgitation I34.0 8. Cardiac resynchronization therapy defibrillator (TAIL DOGGER-D) in place Z95.810 9. H/O aorto-femoral bypass Z95.828 10. Moderate obstructive sleep apnea G47.33 PLAN AND RECOMMENDATIONS: Chronic systolic heart failure with LVEF 25% now post TAIL DOGGER-D. Continue GDMT as detailed by heart failure, [...] in the LAD, IFR 0.9 on last [facility]. continue cardiac medications at this time. Continue [...] re-evaluated after further optimization with heart failure. TAIL DOGGER-D in situ and appears to be functioning well. EP is optimizing. QRS duration is now shortened. History of aortofemoral bypass noted. ERASMO noted, FU with sleep medicine prior to next visit. REVIEW OF SYSTEMS: Chest pain No Shortness of breath no Bleeding No Dizziness No Syncope No Palpations No 10 systems reviewed and are negative with the exception of pertine (more content not included)... Normal [facility] CARDIAC IMPLANTABLE DEVICE C [facility]23 Atrial Tachy Statistic AT/AF [place] Percent 0.00 [facility] Battery Remaining Longevity 127.0 [facility] Battery ETHNOGRAPHER Trigger 2.800 [facility] Battery Status OK [facility] Battery Voltage 3.080 [facility] Ron Setting AT Mode Switch Rate 171 [facility] Ron Setting Lower Rate Limit 60 [facility] Ron Setting Maximum Sensor Rate 120 [facility] Ron Setting Maximum Tracking Rate 120 [facility] Ron Setting Mode (NBG Code) DDD [facility] Ron Setting PAV Delay 100 [facility] Ron Setting ASHLEY Delay 70 [facility] Ron Statistic RA Percent Paced 0.25 [facility] Capacitor Charge Time 3.900 [facility] Date Time Interrogation Session [id number] [facility] Implantable Lead Location Left Ventricle [facility] Implantable Lead Model 5076 CapsureFix Novus MRI [facility] Implantable Lead Model 5076 CapSureFix Novus [facility] Implantable Lead Model 4798 Attain Stability Quad MRI SureScan [facility] Implantable Lead Serial Number [id number] [facility] Implantable Lead Serial Number [id number] [facility] Implantable Lead Serial Number [id number] [facility] Implantable Lead Serial Number TDL [facility] Implantable Lead Serial Number [id number] [facility] Implantable Pulse Generator Implant Date [id number] [facility] Implantable Pulse Generator Black Belt Medtronic [facility] Implantable Pulse Generator Model [place] XT HF Quad [id number] [facility] Implantable Pulse Generator Serial Number [id number] [facility] Implantable Pulse Generator Type Cardiac Resynchronization Therapy - Defibrillator [facility] Lead Channel Impedance Value 475 [facility] Lead Channel Impedance Value 494 [facility] Lead Channel Impedance Value 361 [facility] Lead Channel Pacing Threshold Amplitude 1.380 [facility] Lead Channel Pacing Threshold Amplitude 0.750 [facility] Lead Channel Pacing Threshold Amplitude 0.630 [facility] Lead Channel Sensing Intrinsic Amplitude 2.800 [facility] Lead Channel Sensing Intrinsic Amplitude 13.000 [facility] Lead Channel Setting Pacing Amplitude 1.250 [facility] Rate 1 188 [facility] Rate 1 150 [facility] RV HV Impedance 62 [facility] Therapies 3 x iATP, 40J, 40J, 40J, 40J, 40J, 40J [facility] Therapy Statistic Recent ATP Delivered 0 [facility] Therapy Statistic Recent Shocks Aborted 0 [facility] Ventricular chambers paced during TAIL DOGGER pacing. LV [facility] Zone ID 0 [facility] Zone ID 1 [facility] Zone ID 2 [facility] Zone ID 3 [facility] Zone Setting Status On [facility] Zone Setting Status Monitor [facility] Zone Setting Type Category VF [facility] Zone Setting Type Category FVT [facility] Zone Setting Type Category VT [facility] Zone Setting Type Category VT Monitor [facility] Title: Normal In-Office: No Events * Normal [...] Docket/PDF found below under Scanned Documents . [facility] Gilles Redman MD - 10/17/2023 Title: Normal In-Office: [...] Docket/PDF found below under Scanned Documents . [facility] No Panel Informationon 10-16 Implantable Lead Connection Status Connected [facility] Implantable Lead Implant Date [id number] [facility] Implantable Lead Location Right Atrium [facility] Implantable Lead Location Right Ventricle [facility] Implantable Lead Black Belt Medtronic [facility] Implantable Lead Model 6935M Sprint Quattro Secure S [facility] Lead Channel Measurements Date and Time 2023-10-07 [facility] Lead Channel Pacing Threshold Pulse Width 0.4 [facility] Lead Channel Setting Pacing Amplitude 2.000 [facility] Lead Channel Setting Pacing Pulse Width 0.4 [facility] Lead Channel Setting Sensing Sensitivity 0.30 [facility] Zone Setting Status Off [facility] CNOVon 10-11-2023 CNOV Office Visit (MIDMAV ) SHAUNNA ELIASGY Lucio ([id number]) 1945 F Date Time Provider Department 10/11/23 2:40 PM CONCHA [facility] During your visit today, we recorded the following information about you: Pulse Blood pressure Weight Height 81/minute 120/76 70 kg 1.676 m Concha Paris MD 10/11/2023 3:29 PM Signed [facility] NEPHROLOGY AND HYPERTENSION [facility] SERVICE DATE AND TIME: October 11, 2023 3:19 PM PRIMARY CARE PHYSICIAN: Radha Little, INTERNET MANAGER, INTERNET MANAGER REASON FOR CONSULT: I am asked to [...] Former Diet:Ordering out 3 times week. BF: Kevin, yogurt No TV dinners, soup, prepared foods Caffeine: Coffee 1/week Alcohol: None Activity: Walking. Rec center Home BPs: Yes - CKD: Baseline Cr 1.4 new in 2023, DAV June 2023. Cr up to 1.8 now resolved. Admitted Feb 2024 - newly decreased EF 15%. [facility] Feb 2023 with TRACY. Jardiance (started June [...] ultra verio test strips. Blood-Glucose Sensor (FREESTYLE LEEANN 3 SENSOR) mauricio Use new sensor every 14 days to monitor blood glucose. magnesium oxide (MAG-OX) 400 mg (241.3 mg magnesium) tablet TAKE 1 TABLET BY MOUTH TWICE DAILY. TAKE SEPERATELY FROM DOXYCYCLINE aspirin, enteric coated (ASPIRIN, ENTERIC COATED) 81 mg EC tablet Take 81 mg by mouth once daily. Insulin [place], Disposable, (BD ULTRA-FINE RUBIA PEN NEEDLE) 32 [...] no decreased urine no frothy urine no pi (more content not included)... Normal [facility] Vianney 10-11-2023 RUPA Telephone (MIDOHV) ARLETH ELIAS ([id number]) 1945 F Date Time Provider Department 10/11/23 CONCHA [place] During your visit today, we recorded the following information about you: Concha Paris MD 10/11/2023 3:29 PM Signed Discuss JOSE MANUEL Concha Paris MD 10/13/2023 12:56 PM Addendum Called to make her aware of the 2019 CT results showing Renal artery stenosis (narrowing of kidney artery) - no intervention necessary. Concha Paris MD 10/13/2023 1:31 PM Signed Called back Reviewed JOSEM ANUEL - no changes Concha Paris MD 01/27/2024 9:44 AM Signed Please schedule virtual appointment. Nonurgent Bethany Arroyo OCCA 01/31/2024 9:00 AM Signed Called and spoke to pt. The following appt was made. SLY Vickers Appointment Information Name: Arleth Elias Date: 03/01/2024 Status: Scheduled Arrive By: 10:05 AM Time: 10:20 AM Length: 20 Visit Type: VIDEO SPEC EST [343] Copay: $0.00 Provider: Concha Paris MD Department: [facility] REJ Provider Title: Dept Ordering Physician: Department Address: [address] [place] [address] Referring Physician Other Physician: GRAYSON VEGA PCP: Radha Little CNP Referral #: Referral Status: Notes: follow up MANUEL ID [id number] Made On: 01/31/2024 8:58 AM By: BETHANY ARROYO [[id number]] (ES) Allergies As of Date: 10/11/2023 Noted Allergy Reaction PENICILLINS 06/29/2014 10 - Anaphylaxis 4 - Hives IODINATED CONTRAST MEDIA 12/22/2018 14 - Other: See Comments Comments: Throat itching to some Xray dye >20-30 years ago Date Reviewed: 10/11/2023 Reviewed by: Atiya Jj MA - Fully Assessed Reason for Visit: Appointment [186] Prescriptions as of 01/31/2024 - furosemide (LASIX) 40 mg tablet Take 0.5 tablets by mouth once daily. - spironolactone (ALDACTONE) 25 mg tablet Take 0.5 tablets by mouth once daily. - omeprazole (PRILOSEC) 40 mg capsule Take 40 mg by mouth two times a day. Pt confirmed she is taking this medication - magnesium oxide (MAG-OX) 400 mg (241.3 mg magnesium) tablet TAKE 1 TABLET BY MOUTH TWICE DAILY. TAKE SEPERATELY FROM DOXYCYCLINE - metoprolol succinate ER (TOPROL XL) 25 mg 24 hr tablet Take 1 tablet by mouth as directed. 50 mg AM and 25 mg PM - semaglutide (OZEMPIC) 2 mg/dose (8 mg/3 mL) pen injector Inject 2 mg subcutaneously one time a week. - empagliflozin (JARDIANCE) 10 mg tablet Take 1 tablet by mouth daily with breakfast. - diazePAM (VALIUM) 2 mg tablet - clopidogrel (PLAVIX) 75 mg tablet Take by mouth every 24 hours. - insulin detemir U-100 (LEVEMIR) 100 unit/mL (3 mL) injection pen Inject 20 Units subcutaneously daily at bedtime. - valsartan (DIOVAN) 40 mg tablet Take 0.5 tablets by mouth once daily. - rosuvastatin (CRESTOR) 40 mg tablet Take 1 tablet by mouth daily at bedtime. - blood sugar diagnostic (BLOOD GLUCOSE TEST) test strip Use as instructed to monitor glucose. One touch ultra verio test strips. - Blood-Glucose Sensor (FREESTYLE LEEANN 3 SENSOR) mauricio Use new sensor every 14 days to monitor blood glucose. - aspirin, enteric coated (ASPIRIN, ENTERIC COATED) 81 mg EC tablet Take 81 mg by mouth once daily. - Insulin [place], Disposable, (BD ULTRA-FINE RUBIA PEN NEEDLE) 32 gauge x 5/32 ndle BD Ultra-Fine Rubia Pen Needle 32 gauge x 5/32 - allopurinol (ZYLOPRIM) 100 mg tablet Take 100 mg by mouth once daily. - fluticasone (FLONASE) 50 mcg/actuation nasal spray fluticasone propionate 50 mcg/actuation nasal spray,suspension Problem List As Of Date 10/11/2023 Noted Resolved Posterior tibial tendonitis [M76.829] 09/19/2015 [...] testing [Z01.818] 06/07/2019 Coronary artery disease involving tlingit & haida hunt*06/08/2019 Aortoiliac occlusive disease (HCC) [I74.09] 01/02/2020 Acute heart failure with reduced ejection fract*02/16/2023 Status post angioplasty with stent [Z95.820] 02/17/2023 Chronic systolic congestive heart failure (HCC)*05/31/2023 LBBB (left bundle branch block) [I44.7] 05/31/2023 DAV (acute kidney injury) ([facility]) [N17.9] 06/15/2023 LV dysfunction [I51.9] 07/01/2023 Encounter Status:Closed by CONCHA PARIS on 10/11/23 [facility] CNPN Telephone (ENDOLN) ARLETH ELIAS ([id number]) 1945 F Date Time Provider Department 10/11/23 MIKEL BARAHONA ENDOLN During your visit today, we recorded the following information about you: Kristi Will MA 10/11/2023 9:59 AM Signed A form has been received from [employer] for NIKITA note. Faxed NIKITA note 06/02/23 and last downloaded CGM log to [phone]. Confirmation received Allergies As of Date: 10/11/2023 Noted Allergy Reaction PENICILLINS 06/29/2014 10 - Anaphylaxis 4 - Hives IODINATED CONTRAST MEDIA 12/22/2018 14 - Other: See Comments Comments: Throat itching to some Xray dye >20-30 years ago Date Reviewed: 10/07/2023 Reviewed by: Ross Munoz OCCA - Fully Assessed Reason for Visit: Forms [913] Cmt: Elliot - OV note Prescriptions as of 10/11/2023 - metoprolol succinate ER (TOPROL XL) 25 mg 24 hr tablet Take 1 tablet by mouth as directed. 50 mg AM and 25 mg PM - semaglutide (OZEMPIC) 2 mg/dose (8 mg/3 mL) pen injector Inject 2 mg subcutaneously one time a week. - empagliflozin (JARDIANCE) 10 mg tablet Take 1 tablet by mouth daily with breakfast. - furosemide (LASIX) 40 mg tablet Take 0.5 tablets by mouth once daily. - diazePAM (VALIUM) 2 mg tablet - sertraline (ZOLOFT) 50 mg tablet Take 25 mg by mouth once daily. - clopidogrel (PLAVIX) 75 mg tablet Take by mouth every 24 hours. - insulin detemir U-100 (LEVEMIR) 100 unit/mL (3 mL) injection pen Inject 20 Units subcutaneously daily at bedtime. - valsartan (DIOVAN) 40 mg tablet Take 0.5 tablets by mouth once daily. - rosuvastatin (CRESTOR) 40 mg tablet Take 1 tablet by mouth daily at bedtime. - blood sugar diagnostic (BLOOD GLUCOSE TEST) test strip Use as instructed to monitor glucose. One touch ultra verio test strips. - Blood-Glucose Sensor (FREESTYLE LEEANN 3 SENSOR) mauricio Use new sensor every 14 days to monitor blood glucose. - magnesium oxide (MAG-OX) 400 mg (241.3 mg magnesium) tablet TAKE 1 TABLET BY MOUTH TWICE DAILY. TAKE SEPERATELY FROM DOXYCYCLINE - aspirin, enteric coated (ASPIRIN, ENTERIC COATED) 81 mg EC tablet Take 81 mg by mouth once daily. - Insulin [place], Disposable, (BD ULTRA-FINE RUBIA PEN NEEDLE) 32 gauge x 5/32 ndle BD Ultra-Fine Rubia Pen Needle 32 gauge x 5/32 - allopurinol (ZYLOPRIM) 100 mg tablet Take 100 mg by mouth once daily. - fluticasone (FLONASE) 50 mcg/actuation nasal spray fluticasone propionate 50 mcg/actuation nasal spray,suspension Problem List As Of Date 10/11/2023 Noted Resolved Posterior tibial tendonitis [M76.829] 09/19/2015 [...] testing [Z01.818] 06/07/2019 Coronary artery disease involving tlingit & haida hunt*06/08/2019 Aortoiliac occlusive disease (HCC) [I74.09] 01/02/2020 Acute heart failure with reduced ejection fract*02/16/2023 Status post angioplasty with stent [Z95.820] 02/17/2023 Chronic systolic congestive heart failure (HCC)*05/31/2023 LBBB (left bundle branch block) [I44.7] 05/31/2023 DAV (acute kidney injury) (HCC) [N17.9] 06/15/2023 LV dysfunction [I51.9] 07/01/2023 Encounter Status:Closed by KRISTI WILL on 10/11/23 Normal [facility] Prot/Creat Uron 10-11-2023 Protein/Creatinine (U) [Mass ratio] 0.78 mg/mg High <0.15 [facility] Comment on above: Order Comment: Speci men Type: URINE SPECIMENOrdering Facility: [facility] Address: [address] [place] [address] Result Comment: Adul t Proteinuria Categories: <0.15 mg/mg is considered normal to mildly increased 0.15 - 0.50 mg/mg is considered moderately increased >0.50 mg/mg is considered severely increased KDIGO. (2013). KDIGO 2012 Clinical Practice Guideline for the Evaluation and Management of Chronic Kidney Disease. Official Journal of the International Society of Nephrology, 3(1), 1-150. Performed By: #### 2 890-2 ####[facility] [id number] [place] [address] [place] Protein/Creatinine (U) [Mass ratio]on 10-11-2023 Creatinine (U) [Mass/Vol] 59.9 mg/dL Normal 20.0-300.0 [facility] Comment on above: Order Comment: Speci men Type: URINE SPECIMENOrdering Facility: [facility] Address: [address] [place] [address] Performed By: #### 2 890-2 ####[facility] [id number] [place] [address] [place] Protein (U) [Mass/Vol] 47 mg/dL High 0-20 [facility] Comment on above: Order Comment: Speci men Type: URINE SPECIMENOrdering Facility: [facility] Address: [address] [place] [address] Performed By: #### 2 890-2 ####[facility] [id number] [place] [address] [place] UA DIP, URINE (POC)on 2023 BILIRUBIN UA (POCT) Negative Negative Dam[facility] CLARITY UA (POCT) Clear [facility] COLOR UA (POCT) Yellow [facility] GLUCOSE UA (POCT) 500 mg/dL Abnormal Negative [facility] Hemoglobin Ql (U) Small Abnormal Negative [facility] Interpretation and review of laboratory results Abnormal [facility] KETONE UA (POCT) Negative Negative mg/dL [facility] LEUKOCYTES UA (POCT) Negative Negative [facility] NITRITE UA (POCT) Negative Negative [facility] PH UA (POCT) 6.0 4.5 - 8.0 [facility] Protein Ql (U) 100 mg/dL Abnormal Negative [facility] SPECIFIC GRAVITY UA (POCT) 1.020 1.005 - 1.030 [facility] UROBILINOGEN UA (POCT) 0.2 Normal E.U./dL [facility] Location:[facility], [address], [place], [place], [address] [facility] POINT OF CARE [facility] CNOVon 10-07-2023 CNOV Office Visit (CAEPAV ) ARLETH ELIAS ([id number]) 1945 F Date Time Provider Department 10/07/23 1:30 PM GILLES REDMAN CAEPAV During your visit today, we recorded the following information about you: Pulse Blood pressure Weight Height 75/minute 142/80 69.4 kg 1.676 m iGlles Redman MD 10/11/2023 3:28 PM [facility] [place] Elsy Yañez Department of Cardiovascular Medicine SECTION OF CARDIAC PACING and ELECTROPHYSIOLOGY OUTPATIENT VISIT DATE NIKITA June 15, 2023 October 07, 2023 OUTPATIENT VISIT TYPE EST PRIMARY CARE PHYSICIAN: Radha Little CNP ([facility]) [place] [address] REFERRING PHYSICIAN: Radha Little CNP () [place] [address] CHIEF COMPLAINT: Severe LV dysfunction, wide QRS complex (left bundle branch block) --status post TAIL DOGGER with excellent paced QRS morphology HISTORY OF [...] been under the care of of Dr. Patel and cristopher and currently strictly compliant with excellent GDMT. She is referred to EP for consideration of primary prevention ICD therapy, and TAIL DOGGER. Underwent implant of a biventricular ICD in [...] ultra verio test strips. Blood-Glucose Sensor (FREESTYLE LEEANN 3 SENSOR) mauricio Use new sensor every 14 days to monitor blood glucose. Insulin [place], Disposable, (BD ULTRA-FINE RUBIA PEN NEEDLE) 32 [...] RESPIRATORY: Negative for: Cough, Blood in Sputum, Shortne (more content not included)... Normal [facility] CN Office Visit (CAEPAV ) ARLETH ELIAS ([id number]) 1945 F Date Time Provider Department 10/07/23 11:30 AM DEVICE CLINIC CARD [facility] REJ CAEPAV During your visit today, we recorded the following information about you: Referring Provider: STANLEY STRANGE [[id number]] Allergies As of Date: 10/07/2023 Noted Allergy Reaction PENICILLINS 06/29/2014 10 - Anaphylaxis 4 - Hives IODINATED CONTRAST MEDIA 12/22/2018 14 - Other: See Comments Comments: Throat itching to some Xray dye >20-30 years ago Date Reviewed: 10/07/2023 Reviewed by: Tammy, Ross, OCCA - Fully Assessed Visit Diagnosis: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 #:[id number] Prescriptions as of 10/27/2023 - metoprolol succinate ER (TOPROL XL) 25 mg 24 hr tablet Take 1 tablet by mouth as directed. 50 mg AM and 25 mg PM - semaglutide (OZEMPIC) 2 mg/dose (8 mg/3 mL) pen injector Inject 2 mg subcutaneously one time a week. - empagliflozin (JARDIANCE) 10 mg tablet Take 1 tablet by mouth daily with breakfast. - furosemide (LASIX) 40 mg tablet Take 0.5 tablets by mouth once daily. - diazePAM (VALIUM) 2 mg tablet - sertraline (ZOLOFT) 50 mg tablet Take 25 mg by mouth once daily. - clopidogrel (PLAVIX) 75 mg tablet Take by mouth every 24 hours. - insulin detemir U-100 (LEVEMIR) 100 unit/mL (3 mL) injection pen Inject 20 Units subcutaneously daily at bedtime. - valsartan (DIOVAN) 40 mg tablet Take 0.5 tablets by mouth once daily. - rosuvastatin (CRESTOR) 40 mg tablet Take 1 tablet by mouth daily at bedtime. - blood sugar diagnostic (BLOOD GLUCOSE TEST) test strip Use as instructed to monitor glucose. One touch ultra verio test strips. - Blood-Glucose Sensor (FREESTYLE LEEANN 3 SENSOR) mauricio Use new sensor every 14 days to monitor blood glucose. - magnesium oxide (MAG-OX) 400 mg (241.3 mg magnesium) tablet TAKE 1 TABLET BY MOUTH TWICE DAILY. TAKE SEPERATELY FROM DOXYCYCLINE - aspirin, enteric coated (ASPIRIN, ENTERIC COATED) 81 mg EC tablet Take 81 mg by mouth once daily. - Insulin [place], Disposable, (BD ULTRA-FINE RUBIA PEN NEEDLE) 32 gauge x 5/32 ndle BD Ultra-Fine Rubia Pen Needle 32 gauge x 5/32 - allopurinol (ZYLOPRIM) 100 mg tablet Take 100 mg by mouth once daily. - fluticasone (FLONASE) 50 mcg/actuation nasal spray fluticasone propionate 50 mcg/actuation nasal spray,suspension Problem List As Of Date 10/07/2023 Noted Resolved Posterior tibial tendonitis [M76.829] 09/19/2015 [...] testing [Z01.818] 06/07/2019 Coronary artery disease involving tlingit & haida hunt*06/08/2019 Aortoiliac occlusive disease (HCC) [I74.09] 01/02/2020 Acute heart failure with reduced ejection fract*02/16/2023 Status post angioplasty with stent [Z95.820] 02/17/2023 Chronic systolic congestive heart failure (HCC)*05/31/2023 LBBB (left bundle branch block) [I44.7] 05/31/2023 DAV (acute kidney injury) (HCC) [N17.9] 06/15/2023 LV dysfunction [I51.9] 07/01/2023 Encounter Status:Closed by ALEX CARRILLO on 10/27/23 Normal [facility] CNOV Office Visit (CARDAV ) ARLETH ELIAS ([id number]) 1945 F Date Time Provider Department 10/07/23 10:30 AM ECHO 2 [facility] REJ CARDAV During your visit today, we recorded the following information about you: Dwight Valerio RN 10/07/2023 11:09 AM Signed IV Access: IV IV Site: right Antecubital IV GAUGE 22 gauge IV Removal Date October 07, 2023 Time 11:08 AM Reactions: WNL Order reviewed by nurse:yes Medications: Definity - dosage 2mL Reaction: No LOT: [id number] EXP: 07/2024 [facility] #[id number] MFG: [employer] Referring Provider: STANLEY STRANGE [[id number]] Allergies As of Date: 10/07/2023 Noted Allergy Reaction PENICILLINS 06/29/2014 10 - Anaphylaxis 4 - Hives IODINATED CONTRAST MEDIA 12/22/2018 14 - Other: See Comments Comments: Throat itching to some Xray dye >20-30 years ago Date Reviewed: 08/03/2023 Reviewed by: Dahiana Barth APRN.INTERNET MANAGER - Fully Assessed Visit Diagnosis:Chronic systolic heart failure (HCC) [I50.22] Order(s):ECHO [030477] Order #: [id number]: 1 [] perflutren lipid microspheres 1.3 mL in NaCl (PF) 0.9% 10 mL injection (DEFINITY)Disp: Rfl: [] sodium chloride 0.9 % (flush) 10 mL (BD POSIFLUSH)Disp: Rfl: Prescriptions as of 10/07/2023 - semaglutide (OZEMPIC) 2 mg/dose (8 mg/3 mL) pen injector Inject 2 mg subcutaneously one time a week. - empagliflozin (JARDIANCE) 10 mg tablet Take 1 tablet by mouth daily with breakfast. - furosemide (LASIX) 40 mg tablet Take 0.5 tablets by mouth once daily. - metoprolol succinate ER (TOPROL XL) 25 mg 24 hr tablet Take 1 tablet by mouth two times a day. - diazePAM (VALIUM) 2 mg tablet - sertraline (ZOLOFT) 50 mg tablet Take 25 mg by mouth once daily. - clopidogrel (PLAVIX) 75 mg tablet Take by mouth every 24 hours. - insulin detemir U-100 (LEVEMIR) 100 unit/mL (3 mL) injection pen Inject 20 Units subcutaneously daily at bedtime. - valsartan (DIOVAN) 40 mg tablet Take 0.5 tablets by mouth once daily. - rosuvastatin (CRESTOR) 40 mg tablet Take 1 tablet by mouth daily at bedtime. - blood sugar diagnostic (BLOOD GLUCOSE TEST) test strip Use as instructed to monitor glucose. One touch ultra verio test strips. - Blood-Glucose Sensor (FREESTYLE LEEANN 3 SENSOR) mauricio Use new sensor every 14 days to monitor blood glucose. - magnesium oxide (MAG-OX) 400 mg (241.3 mg magnesium) tablet TAKE 1 TABLET BY MOUTH TWICE DAILY. TAKE SEPERATELY FROM DOXYCYCLINE - aspirin, enteric coated (ASPIRIN, ENTERIC COATED) 81 mg EC tablet Take 81 mg by mouth once daily. - Insulin [place], Disposable, (BD ULTRA-FINE RUBIA PEN NEEDLE) 32 gauge x 5/32 ndle BD Ultra-Fine Rubia Pen Needle 32 gauge x 5/32 - allopurinol (ZYLOPRIM) 100 mg tablet Take 100 mg by mouth once daily. - fluticasone (FLONASE) 50 mcg/actuation nasal spray fluticasone propionate 50 mcg/actuation nasal spray,suspension Problem List As Of Date 10/07/2023 Noted Resolved Posterior tibial tendonitis [M76.829] 09/19/2015 [...] testing [Z01.818] 06/07/2019 Coronary artery disease involving tlingit & haida hunt*06/08/2019 Aortoiliac occlusive disease (HCC) [I74.09] 01/02/2020 Acute heart failure with reduced ejection fract*02/16/2023 Status post angioplasty with stent [Z95.820] 02/17/2023 Chronic systolic congestive heart failure (HCC)*05/31/2023 LBBB (left bundle branch block) [I44.7] 05/31/2023 DAV (acute kidney injury) (HCC) [N17.9] 06/15/2023 LV dysfunction [I51.9] 07/01/2023 Visit Notes: >> Dwight Valerio RN Sue Oct 07, 2023 11:07 AM Status: Signed IV Access: IV IV Site: right Antecubital IV GAUGE 22 gauge IV Removal Date October 07, 2023 Time 11:08 AM Reactions: WNL Order reviewed by nurse:yes Medications: Definity - dosage 2mL Reaction: No LOT: [id number] EXP: 07/2024 [facility] #[id number] MFG: [employer]. Prescriptions ordered this encounter Disp Refills Start End PERFLUTREN LIPID MICROSPHERES 1.1 MG* 10/07/2023 10/07/2023 Route: INTRAVENOUS SODIUM CHLORIDE 0.9 % (FLUSH) INJECT* 10/07/2023 10/07/2023 Route: INTRAVENOUS Encounter Status:Closed by DWIGHT VALERIO on 10/07/23 Normal [facility] [id number] 10-07-2023 ECG01 Ventricular Rate : 7 5 BPM Atrial Rate : 75 BPM P-R Interval : 172 ms QRS Duration : 94 ms Q-T Interval : 402 ms QTC Calculation(Bazett) : 448 ms Calculated P [place] : 63 degrees Calculated R [place] : 121 degrees Calculated T [place] : -52 degrees NORMAL SINUS RHYTHM RIGHT AXIS DEVIATION LOW VOLTAGE QRS, CONSIDER PULMONARY DISEASE, PERICARDIAL EFFUSION, OR NORMAL VARIANT CANNOT EXCLUDE ANTERIOR MYOCARDIAL INFARCTION , AGE UNDETERMINED INFEROLATERAL T WAVE ABNORMALITY ABNORMAL ECG Confirmed by DEAN TORRES MD ([id number]) on 10/15/2023 3:31:53 PM NAME : ARLETH ELIAS PID : [id number] : 1945 Gender : Female Race : ORD : Procedure Date : Oct 07 2023 12:22:21 Edit Date : Oct 15 2023 15:31:57 Diagnosis: NORMAL SINUS RHYTHM RIGHT AXIS DEVIATION LOW VOLTAGE QRS, CONSIDER PULMONARY DISEASE, PERICARDIAL EFFUSION, OR NORMAL VARIANT CANNOT EXCLUDE ANTERIOR MYOCARDIAL INFARCTION , AGE UNDETERMINED INFEROLATERAL T WAVE ABNORMALITY ABNORMAL ECG Confirmed by DEAN TORRES MD ([id number]) on 10/15/2023 3:31:53 PM Test Reason : Location : 192 : AVCRD Overread By : DEAN TORRES MD Edited By : DEAN TORRES MD Referred By : STANLEY STRANGE Acquired by : Sarah [facility] ECHOon 10-07-2023 CONCLUSIONS: - Technically [...] [facility] Echocardiography Report: Transthoracic Echo [facility] Date of service: 10/07/2023 10:18:06 AM PROFESSOR OF HISTORY Ordering physician: STANLEY STRANGE Indication: Evaluation of known heart failure to guide therapy Technologist: Robbie Arredondo [facility] Interpreting physician: Beto Gallardo MD PATIENT: Name: [...] epicardial fat pad. [facility] Echocardiography Echocardiography Report: Transthoracic Echo [facility] Date of service: 10/07/2023 10:18:06 AM PROFESSOR OF HISTORY Ordering physician: STANLEY STRANGE Indication: Evaluation of known heart failure to guide therapy Technologist: Robbie Arredondo [facility] Interpreting physician: Beto Gallardo MD PATIENT: Name: [...] PERICARDIUM There is an epicardial fat pad. CONCLUSIONS: - Technically difficult exam due to [...] estimated RVSP today. Prior LV EF 21%. Electronically signed by (more content not included)... Normal [facility] Vianney 09-23-2023 CNPN Telephone (ENDOLN) ARLETH ELIAS ([id number]) 1945 F Date Time Provider Department 09/23/23 MIKEL BARAHONA ENDOLN During your visit today, we recorded the following information about you: Ivelisse Elias MA 09/23/2023 11:38 AM Signed Patient assistance medication from Omid nordisk received for 4bxs of Ozempic Patient assistance form completed per protocol Placed form on mikel's desk to sign Keyanna Linder RN 09/24/2023 1:56 PM Signed Pt identified by name and Pt given message below Stated understanding Pt asking if paperwork has been signed- she lives an hour away and 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 Paul Swartz MA 09/27/2023 10:46 AM Signed Patient stopped in today to 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 4 boxes of Ozempic. Form completed per protocol. Allergies As of Date: 09/23/2023 Noted Allergy Reaction PENICILLINS 06/29/2014 10 - Anaphylaxis 4 - Hives IODINATED CONTRAST MEDIA 12/22/2018 14 - Other: See Comments Comments: Throat itching to some Xray dye >20-30 years ago Date Reviewed: 08/03/2023 Reviewed by: Dahiana Barth APRN.INTERNET MANAGER - Fully Assessed Reason for Visit: Patient Assistance [5444] Prescriptions as of 09/27/2023 - semaglutide (OZEMPIC) 2 mg/dose (8 mg/3 mL) pen injector Inject 2 mg subcutaneously one time a week. - empagliflozin (JARDIANCE) 10 mg tablet Take 1 tablet by mouth daily with breakfast. - furosemide (LASIX) 40 mg tablet Take 0.5 tablets by mouth once daily. - metoprolol succinate ER (TOPROL XL) 25 mg 24 hr tablet Take 1 tablet by mouth two times a day. - diazePAM (VALIUM) 2 mg tablet - sertraline (ZOLOFT) 50 mg tablet Take 25 mg by mouth once daily. - clopidogrel (PLAVIX) 75 mg tablet Take by mouth every 24 hours. - insulin detemir U-100 (LEVEMIR) 100 unit/mL (3 mL) injection pen Inject 20 Units subcutaneously daily at bedtime. - valsartan (DIOVAN) 40 mg tablet Take 0.5 tablets by mouth once daily. - rosuvastatin (CRESTOR) 40 mg tablet Take 1 tablet by mouth daily at bedtime. - blood sugar diagnostic (BLOOD GLUCOSE TEST) test strip Use as instructed to monitor glucose. One touch ultra verio test strips. - Blood-Glucose Sensor (FREESTYLE LEEANN 3 SENSOR) mauricio Use new sensor every 14 days to monitor blood glucose. - magnesium oxide (MAG-OX) 400 mg (241.3 mg magnesium) tablet TAKE 1 TABLET BY MOUTH TWICE DAILY. TAKE SEPERATELY FROM DOXYCYCLINE - aspirin, enteric coated (ASPIRIN, ENTERIC COATED) 81 mg EC tablet Take 81 mg by mouth once daily. - Insulin [place], Disposable, (BD ULTRA-FINE RUBIA PEN NEEDLE) 32 gauge x 5/32 ndle BD Ultra-Fine Rubia Pen Needle 32 gauge x 5/32 - allopurinol (ZYLOPRIM) 100 mg tablet Take 100 mg by mouth once daily. - fluticasone (FLONASE) 50 mcg/actuation nasal spray fluticasone propionate 50 mcg/actuation nasal spray,suspension Problem List As Of Date 09/23/2023 Noted Resolved Posterior tibial tendonitis [M76.829] 09/19/2015 [...] testing [Z01.818] 06/07/2019 Coronary artery disease involving tlingit & haida hunt*06/08/2019 Aortoiliac occlusive disease (HCC) [I74.09] 01/02/2020 Acute heart failure with reduced ejection fract*02/16/2023 Status post angioplasty with stent [Z95.820] 02/17/2023 Chronic systolic congestive heart failure (HCC)*05/31/2023 LBBB (left bundle branch block) [I44.7] 05/31/2023 DAV (acute kidney injury) (HCC) [N17.9] 06/15/2023 LV dysfunction [I51.9] 07/01/2023 Encounter Status:Closed by MARY BIRD on 09/24/23 Normal [facility] Basic metabolic 2000 panelon 09-22-2023 Anion gap [Moles/Vol] 9 mmol/L Normal 8-15 [facility] Comment on above: Order Comment: Speci men Type: BLOOD SPECIMENOrdering Facility: [facility] Address: [address] [place] [address] Performed By: #### 2 4321-2 ####[facility] LABCLIA [id number] [place] [address] Calcium [Mass/Vol] 10.0 mg/dL Normal 8.5-10.2 [facility] Comment on above: Order Comment: Speci men Type: BLOOD SPECIMENOrdering Facility: [facility] Address: [address] [place] [address] Performed By: #### 2 4321-2 ####[facility] LABCLIA [id number] [place] [address] Chloride [Moles/Vol] 105 mmol/L Normal 98-107 [facility] Comment on above: Order Comment: Speci men Type: BLOOD SPECIMENOrdering Facility: [facility] Address: [address] [place] [address] Performed By: #### 2 4321-2 ####[facility] LABCLIA [id number] [place] [address] CO2 [Moles/Vol] 27 mmol/L Normal 22-30 [facility] Comment on above: Order Comment: Speci men Type: BLOOD SPECIMENOrdering Facility: [facility] Address: [address] [place] [address] Performed By: #### 2 4321-2 ####[facility] LABCLIA [id number] [place] [address] Creatinine [Mass/Vol] 1.39 mg/dL High 0.58-0.96 [facility] Comment on above: Order Comment: Speci men Type: BLOOD SPECIMENOrdering Facility: [facility] Address: [address] [place] [address] Performed By: #### 2 4321-2 ####[facility] LABCLIA [id number] [place] [address] Creatinine and Glomerular filtration rate.predicted panel (S/P/Bld) 39 mL/min/1.73m??? Low >=60 [facility] Comment on above: Order Comment: Speci men Type: BLOOD SPECIMENOrdering Facility: [facility] Address: [address] [place] [address] Result Comment: Tanisha mated Glomerular Filtration Rate [...] actual GFR. Performed By: #### 2 4321-2 ####[facility] LABCLIA [id number] [place] [address] Glucose [Mass/Vol] 108 mg/dL High 74-99 [facility] Comment on above: Order Comment: Speci men Type: BLOOD SPECIMENOrdering Facility: [facility] Address: [address] [place] [address] Result Comment: The [place] Diabetes Association (ADA) provides guidance for cutoff [...] Standards of Medical Care in Diabetes 2016, [place] [employer] Association. Diabetes Care. 2016.39(Suppl 1). Performed By: #### 2 4321-2 ####[facility] LABCLIA [id number] [place] [address] Potassium [Moles/Vol] 4.7 mmol/L Normal 3.7-5.1 [facility] Comment on above: Order Comment: [place] andrew Type: BLOOD SPECIMENOrdering Facility: [facility] Address: [address] [place] [address] Performed By: #### 2 4321-2 ####[facility] LABCLIA [id number] [place] [address] Sodium [Moles/Vol] 141 mmol/L Normal 136-144 [facility] Comment on above: Order Comment: Gissellei men Type: BLOOD SPECIMENOrdering Facility: [facility] Address: [address] [place] [address] Performed By: #### 2 4321-2 ####[facility] LABCLIA [id number] [place] [address] Urea nitrogen [Mass/Vol] 36 mg/dL High 7-21 [facility] Comment on above: Order Comment: Speci men Type: BLOOD SPECIMENOrdering Facility: [facility] Address: [address] [place], [place] [address] Performed By: #### 2 4321-2 ####[facility] LABCLIA [id number] [place] [address] ICD CLINIC CHECKon 4 AV Delay Adaptive Paced Minimum (ms) 140 ms [facility] AV Delay Adaptive Sensed Minimum (ms) 100 ms [facility] AV Delay Adaptive Status ENABLED [facility] Battery Voltage 3.11 V [facility] Ron LV Pacing Amplitude (volts) 2.0 V [facility] Ron LV Pacing Polarity BI [facility] Ron LV Pacing Pulse Width (ms) 0.4 ms [facility] Ron RA Pacing Amplitude (volts) 3.5 V [facility] Ron RA Pacing Polarity BI [facility] Ron RA Pacing Pulse Width (ms) 0.4 ms [facility] Ron RA Sensing Amplitude (mvolts) 0.3 mV [facility] Ron RA Sensing Blanking Period (ms) 150 ms [facility] Ron RA Sensing Polarity BI [facility] Ron RA Sensing Refractory Period (ms) Auto [facility] Ron RV Pacing Amplitude (volts) 3.5 V [facility] Ron RV Pacing Polarity BI [facility] Ron RV Pacing Pulse Width (ms) 0.4 ms [facility] Ron RV Sensing Amplitude (mvolts) 0.3 mV [facility] Ron RV Sensing Blanking Period (ms) 230 ms [facility] Ron RV Sensing Polarity BI [facility] Detection Configuration (Vent) 1 - Zone [facility] ICD AFIB DetectionStatus ENABLED [facility] ICD ATAF DetectionInterval ms 350 ms [facility] ICD ATAF DetectionStatus ENABLED [facility] ICD FastVT DetectionStatus DISABLED [facility] ICD-ADLRATE_BPM 95 {beats}/min [facility] ICD-AMS EPISODES 171 {beats}/min [facility] ICD-ATP Episodes (Vent) 0 [facility] ICD-ATRIALFIBRILLATIO N 0 [facility] ICD-Device Mfg MDT [facility] ICD-LEADIMPEDANCEATRI AL 532 ohm [facility] ICD-Percent Pacing (Atrial) 0.25 % [facility] ICD-Percent Pacing (Vent) 1.79 % [facility] ICD-PMT Intervention Enabled [facility] ICD-PVC Intervention Enabled [facility] ICD-Rate Modulation Acceleration Reaction 30 s [facility] ICD-Rate Modulation Deceleration Exercise [facility] ICD-Rate Modulation Stearns 3 [facility] ICD-Rate Modulation Threshold Low [facility] ICD-Rhythm Sinus rhythm [facility] ICD-Shocks Aborted (Vent) 0 [facility] [id number] 0 [facility] [facility] ICD-SHOCKSABORTED 0 [facility] ICD-SHOCKSDELIVEREDVE NTRICULAR 0 [facility] ICD-Ventricular Fibrillation 0 [facility] ICD-VVDELAY_MS 0 ms [facility] Lead Impedance (LV) 361 ohm [facility] Lead Impedance (RV) 361 ohm [facility] Lead Impedance High Voltage 57 ohm [facility] Lead1 Mfg MDT [facility] Lead2 Mfg MDT [facility] Lead3 Mfg MDT [facility] Location LV [facility] Location RA [facility] Location RV [facility] Lower Rate (bpm) 60 {beats}/min [facility] LV PACING % 97.89 % [facility] Max Sensor Rate (bpm) 120 {beats}/min [facility] MDT_PROG_TACHY_ZONE_D ETECTIONS_STATUS ENABLED [facility] Model [id number] [place] XT HF Quad TAIL DOGGER-D MRI [facility] Model 4798 Attain Stabilit y Quad MRI SureScan [facility] Model 5076 CapSureFix Nov[facility] Model 6935M Sprint Quattro Secure S [facility] Pacemaker Dependent? NO [facility] Pacing Mode DDD [facility] Serial Number [id number] [facility] Serial Number [id number] [facility] Serial Number [id number] [facility] Serial Number [id number] [facility] Test Charge Energy 40.0 J [facility] Test Charge Time [address] [facility] Therapy Status (Vent) Enabled [facility] Thresh LV Capture Amplitude (volts) 0.625 V [facility] Thresh LV Capture Duration (ms) 0.4 ms [facility] Thresh RA Capture Amplitude (volts) 0.75 V [facility] Thresh RA Capture Duration (ms) 0.4 ms [facility] Thresh RA Sensing Amplitude (mvolts) 4.3 mV [facility] Thresh RV Capture Amplitude (VOLTS) 0.5 V [facility] Thresh RV Capture Duration (MS) 0.4 ms [facility] Thresh RV Sensing Amplitude (MVOLTS) 13.0 mV [facility] Tracking Rate (bpm) 120 {beats}/min [facility] VF Zone Detection Interval 320 ms [facility] VF Zone Therapy Configuration 1 ATP(s) + 6 Shock(s) [facility] No Panel Informationon 07-14 BLANK _ [facility] ICD-Fast Ventricular Tachycardia 0 [facility] Implant Date 06/30/2023 [facility] ANES POSTPROC EVALon 024 ANES POSTPROC EVAL HNO ID: [id number] Author: ERIC ARGUELLO MD Service: Anesthesiology Author Type: Anesthesiologist Type: Anesthesia Postprocedure Evaluation Filed: 07/03/2023 19:08 Note Text: POST ANESTHESIA EVALUATION NOTE : 1945 Procedure Summary Date: 06/30/23 Room / Location: EP ROOM 2 / EP Anesthesia Start: 1435 Anesthesia Stop: 1712 Procedures: INSERTION PERM IMPLANTABLE DEFIBRILLATOR SYSTEM, W/TRANSVENOUS LEAD(S) INSERTION CORONARY SINUS/LT VENTRICULAR LEAD W/INITIAL INSERTION OF PACEMAKER/DEFIB GENERATOR Diagnosis: Congestive heart failure, unspecified HF chronicity, unspecified heart failure type (HCC) (Congestive heart failure, unspecified HF chronicity, unspecified heart failure type (HCC) [I50.9]) Surgeons: Gilles Redman MD Responsible Provider: Eric Arguello MD Anesthesia Type: general ASA Status: [...] of care. Anesthesia Observations No Documentation SIGNATURE: Eric Arguello MD PATIENT NAME: Arleth Elias DATE: July 03, 2023 TIME: 7:08 PM CSN: [id number] [facility] ALLIED HEALTHon 07-01-2023 ALLIED HEALTH HNO ID: [id number] Author: ROSSY DALLAS RT(Inessa) Service: Radiology Author Type: Technologist Type: Allied [...] PATIENT PRESENTS WITH AN IMPLANTABLE OR ATTACHED SURGICAL SUPPLIES STERILIZER: No RADIOLOGY DEPARTMENT: General X-ray: Exam(s) Completed: Chest X-Ray PERIPHERAL IV DATA: Not applicable SIGNED BY: Rossy Dallas RT(R) July 01, 2023 7:48 AM [facility] Basic metabolic 2000 panelon 07-01-2023 Anion gap [Moles/Vol] 14 mmol/L Normal 9-18 [facility] Comment on above: Order Comment: Speci men Type: BLOOD SPECIMENOrdering Facility: [facility] Address: [address] [place] [address] Performed By: #### 2 4321-2 ####[facility]ORATORYCLIA [id number] [place] [address] [place] Calcium [Mass/Vol] 9.1 mg/dL Normal 8.5-10.2 [facility] Comment on above: Order Comment: Speci men Type: BLOOD SPECIMENOrdering Facility: [facility] Address: [address] [place] [address] Performed By: #### 2 4321-2 ####[facility] LABORATORYCLIA [id number] [place] [id number] [place] Chloride [Moles/Vol] 104 mmol/L Normal 97-105 [facility] Comment on above: Order Comment: Speci men Type: BLOOD SPECIMENOrdering Facility: [facility] Address: [address] [place] [address] Performed By: #### 2 4321-2 ####[facility] LABORATORYCLIA [id number] [place] [address] [place] CO2 [Moles/Vol] 24 mmol/L Normal 22-30 [facility] Comment on above: Order Comment: Speci men Type: BLOOD SPECIMENOrdering Facility: [facility] Address: [address] [place] [address] Performed By: #### 2 4321-2 ####[facility] LABORATORYCLIA [id number] [place] [id number] [place] Creatinine [Mass/Vol] 1.90 mg/dL High 0.58-0.96 [facility] Comment on above: Order Comment: Speci men Type: BLOOD SPECIMENOrdering Facility: [facility] Address: [address] [place] [address] Performed By: #### 2 4321-2 ####[facility] LABORATORYCLIA [id number] [place] [id number] [place] Creatinine and Glomerular filtration rate.predicted panel (S/P/Bld) 27 mL/min/1.73m??? Low >=60 [facility] Comment on above: Order Comment: Speci men Type: BLOOD SPECIMENOrdering Facility: [facility] Address: [address] [place] [address] Result Comment: Tanisha mated Glomerular Filtration Rate [...] actual GFR. Performed By: #### 2 4321-2 ####[facility] LABORATORYCLIA [id number] [place] [id number] [place] Glucose [Mass/Vol] 155 mg/dL High 74-99 [facility] Comment on above: Order Comment: Speci men Type: BLOOD SPECIMENOrdering Facility: [facility] Address: [address] [place] [address] Result Comment: The [place] Diabetes Association (ADA) provides guidance for cutoff [...] Standards of Medical Care in Diabetes 2016, [place] [employer] Association. Diabetes Care. 2016.39(Suppl 1). Performed By: #### 2 4321-2 ####[facility] LABORATORYCLIA [id number] [place] [id number] [place] Potassium [Moles/Vol] 4.0 mmol/L Normal 3.7-5.1 [facility] Comment on above: Order Comment: Speci men Type: BLOOD SPECIMENOrdering Facility: [facility] Address: [address] [place] [address] Performed By: #### 2 4321-2 ####[facility] LABORATORYCLIA [id number] [place] [id number] [place] Sodium [Moles/Vol] 142 mmol/L Normal 136-144 [facility] Comment on above: Order Comment: Speci men Type: BLOOD SPECIMENOrdering Facility: [facility] Address: [address] [place] [id number] Performed By: #### 2 4321-2 ####[facility] LABORATORYCLIA [id number] [place] [id number] [place] Urea nitrogen [Mass/Vol] 42 mg/dL High 7- [facility] Comment on above: Order Comment: Speci men Type: BLOOD SPECIMENOrdering Facility: [facility] Address: [address] [place] [id number] Performed By: #### 2 4321-2 ####[facility] LABORATORYCLIA [id number] [place] [id number] [place] CNDSon 07-01-2023 CNDS HNO ID: [id number] Author: GILLES REDMAN MD Service: Electrophysiology Author Type: Physician Type: Discharge Summary Filed: 07/07/2023 15:49 Note Text: Department of Cardiovascular Medicine Discharge Summary (Template ID [id number]) PATIENT NAME: Arleth Elias ADMISSION DATE: 06/30/2023 DISCHARGE DATE: 07/01/2023 Attending Physician: Concha Redman* Code Status: Prior Primary Service: Admission [...] Implantation of a MEDTR[employer] CROME HF QUAD TAIL DOGGER-D MRI SURE SCAN CBKH2PD pulse generator. Leads: - Implantation of a [...] 32 gauge x 5/32 Generic drug: Insulin [place] (Disposable) BLOOD GLUCOSE TEST test strip Generic drug: blood sugar diagnostic Use as instructed to monitor glucose. One touch ultra verio test strips. clopidogrel 75 mg tablet Commonly known as: PLAVIX CPAP/BIPAP/OTHER Type .CPAPSettings into a note to see current settings/supplies/DME information. diazePAM 2 mg tablet Commonly known as: VALIUM fluticasone 50 mcg/actuation nasal spray Commonly known as: FLONASE FREESTYLE LEEANN 3 SENSOR Mauricio Generic drug: Blood-Glucose Sensor [...] 07/05/2023 2:30 PM Stanley Strange MD CACHFV [facility] 07/15/2023 11:30 AM DEVICE CLINIC CARD [facility] REJ CAEPAV REJ 07/15/2023 1:30 PM Niraj Cheng PA-C CAEPAV REJ 07/27/2023 1:30 PM Stanley Strange MD CACHFV [facility] 08/03/2023 2:00 PM Dahiana Barth, ASPHALT SURFACE HEATER OPERATOR.[facility] NEUR Mn S Bldg 10/20/2023 3:00 PM Chalo Patel DO CARDLO [facility] Aniya 12/06/2023 12:50 PM Mikel Barahona, ASPHALT SURFACE HEATER OPERATOR.INTERNET MANAGER ENDOLN [facility] Aniya Highest Readmission Risk Score: 17 The 30 day readmissions risk score is derived from an internally validated risk model which evaluates patient level characteristics, utilization history, medication orders and lab results up until the day of discharge. Patients with a score of 40 or above are considered highest risk for readmissi (more content not included)... [facility] CNPTiffanie 07-01-2023 [place] Telephone (FVPRAD) ARLETH ELIAS ([id number]) 1945 F Date Time Provider Department 07/01/23 NIRAJ CHENG During your visit today, we recorded the following information about you: Niraj Cheng PA-C 07/01/2023 11:[address] Polk would like patient to establish with Nephrology for DAV on CKD Please help arrange KURT Cervantes [facility] 07/01/2023 3:40 PM Signed Spoke with pt. Asked that we send her a Hydro-[employer] message and she will call to schedule with Kidney Medicine. Allergies As of Date: 07/01/2023 Noted Allergy Reaction PENICILLINS 06/29/2014 10 - Anaphylaxis 4 - Hives IODINATED CONTRAST MEDIA 12/22/2018 14 - Other: See Comments Comments: Throat itching to some Xray dye >20-30 years ago Date Reviewed: 06/30/2023 Reviewed by: Mary Healy RN - Fully Assessed Reason for Visit: [facility] Follow Up [1227] Primary Visit Diagnosis:Acute kidney injury (HCC) [N17.9] Order(s):CONSULT TO NEPHROLOGY [9018] Order #: [id number]: 1 FUTURE Prescriptions as of 07/01/2023 - [...] verio test strips. - Blood-Glucose Sensor (FREESTYLE LEEANN 3 SENSOR) mauricio Use new sensor every [...] mg by mouth once daily. - Insulin [place], Disposable, (BD ULTRA-FINE RUBIA PEN NEEDLE) 32 [...] testing [Z01.818] 06/07/2019 Coronary artery disease involving tlingit & haida hunt*06/08/2019 Aortoiliac occlusive disease (HCC) [I74.09] 01/02/2020 Acute heart failure with reduced ejection fract*02/16/2023 Status post angioplasty with stent [Z95.820] 02/17/2023 Chronic systolic heart failure (HCC) [I50.22] 05/31/2023 LBBB (left bundle branch block) [I44.7] 05/31/2023 Acute kidney injury (HCC) [N17.9] 06/15/2023 LV dysfunction [I51.9] 07/01/2023 Encounter Status:Closed by NIRAJ CHENG on 07/01/23 [facility] NURSING PROGon 07-01-2023 NURSING PROG HNO ID: [id number] Author: ANAY AGEE RN Service: Nursing Author Type: Registered [...] up. 1216: Patient left the unit via [facility] NURSING PROG HNO ID: [id number] Author: MARY HEALY, RN Service: Nursing Author Type: Registered Nurse Type: Nursing Progress Note Filed: 06/30/2023 22:35 Note Text: Nursing Progress Note Patient Name: Arleth Elias Patient Location: [place] [address] Transfer Note: PATIENT NAME: Arleth Elias Patient Location: [place] [address] [address]0 Room: [place] [address] Patient transferred into room/unit [place] [address] in stable condition. Actions taken: Pt orientated to room and surroundings. Pt denies pain at left chest wall site. Left chest wall dressing c/d/I, left radial pulse palpable. Pt VSS, call light in reach, safety maintained. 2220: pt given evening medications as ordered. V-paced on telemetry. Safety maintained. This note was completed by: Mary Healy [facility] XR CHEST 2V FRONTAL/LATon XR CHEST [...] pleural effusions with atelectasis No obvious pneumothorax. [employer] Network Architect: PSCB Transcribe Date/Time: Jul 01 2023 7:56A Dictated by : PAT GLASER MD This examination was interpreted and the report reviewed and electronically signed by: PAT GLASER MD on Jul 01 2023 7:59AM EST [id number] [facility] ANES PRE-OPon 06-30-2023 ANES PRE-OP HNO ID: [id number] Author: ERIC CAMPOS MD Service: Anesthesiology Author Type: Anesthesiologist Type: Anesthesia Preprocedure Evaluation Filed: 06/30/2023 11:50 Note Text: ANESTHESIOLOGY DAY OF SURGERY NOTE : 1945 Procedure Information Date/Time: 06/30/23 1300 Procedures: INSERTION PERM IMPLANTABLE DEFIBRILLATOR SYSTEM, W/TRANSVENOUS LEAD(S) - Medtronic INSERTION CORONARY SINUS/LT VENTRICULAR LEAD W/INITIAL INSERTION OF PACEMAKER/DEFIB GENERATOR Location: EP ROOM 2 / [facility] EP Surgeons: Gilles Redman MD Estimated body mass index is [...] disease (HCC) (+) 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 (+) LBBB (left [...] and consent discussed: yes. Patient / Responsible Republican agrees to proceed: yes Patient / Surrogate [...] verio test strips. - Blood-Glucose Sensor (FREESTYLE LEEANN 3 SENSOR) mauricio Use new sensor every 14 days to monitor blood glucose. - CPAP/BIPAP/OTHER Type .CPAPSettings into a note to see current settings/supplies/DME information. - Insulin [place], Disposable, (BD ULTRA-FINE RUBIA PEN NEEDLE) 32 [...] obtained within 48 hours of Surgery/Procedure. SIGNATURE: Eric Campos MD PATIENT NAME: Arleth Elias DATE: June 30, 2023 TIME: 11:49 AM CSN: [id number] Normal [facility] Basic metabolic 2000 panelon 06-30-2023 Anion gap [Moles/Vol] 16 mmol/L Normal 9-18 [facility] Comment on above: Order Comment: Speci men Type: BLOOD SPECIMEN [facility] Address: [address] [place] [address] Performed By: #### 2 4321-2 #### [facility] CLIA [id number] [address] [place] [address] [place] Calcium [Mass/Vol] 9.6 mg/dL Normal 8.5-10.2 [facility] Comment on above: Order Comment: Speci men Type: BLOOD SPECIMEN [facility]ing Facility: [facility] Address: [address] [place] [address] Performed By: #### 2 4321-2 #### [facility] CLIA [id number] [address] [place] [address] [place] Chloride [Moles/Vol] 102 mmol/L Normal 97-105 [facility] Comment on above: Order Comment: Speci men Type: BLOOD SPECIMEN [facility]ing Facility: [facility] Address: [address] [place] [address] Performed By: #### 2 4321-2 #### [facility] CLIA [id number] [address] [place] [address] [place] CO2 [Moles/Vol] 22 mmol/L Normal 22-30 [facility] Comment on above: Order Comment: Speci men Type: BLOOD SPECIMEN [facility] Facility: [facility] Address: [address] [place] [address] Performed By: #### 2 4321-2 #### [facility] CLIA [id number] [address] [place] [address] [place] Creatinine [Mass/Vol] 1.61 mg/dL High 0.58-0.96 [facility] Comment on above: Order Comment: Speci men Type: BLOOD SPECIMEN [facility] Facility[facility] Address: [address] [place] [address] Performed By: #### 2 4321-2 #### [facility] CLIA [id number] [address] [place] [address] [place] Creatinine and Glomerular filtration rate.predicted panel (S/P/Bld) 33 mL/min/1.73m??? Low >=60 [facility] Comment on above: Order Comment: Speci men Type: BLOOD SPECIMEN [facility] Facility: [facility] Address: [address] [place] [address] Result Comment: Tanisha mated Glomerular Filtration Rate [...] GFR. Performed By: #### 2 4321-2 #### [facility] CLIA [id number] [place] [address] [place] Glucose [Mass/Vol] 115 mg/dL High 74-99 [facility] Comment on above: Order Comment: [place] andrew Type: BLOOD SPECIMEN [facility] Facility: [facility] Address: [address] [place] [address] Result Comment: The [place] Diabetes Association (ADA) provides guidance for cutoff [...] Standards of Medical Care in Diabetes 2016, [place] [employer]. Diabetes Care. 2016.39(Suppl 1). Performed By: #### 2 4321-2 #### [facility] CLIA [id number] [place] [address] [place] Potassium [Moles/Vol] 3.7 mmol/L Normal 3.7-5.1 [facility] Comment on above: Order Comment: [place] andrew Type: BLOOD SPECIMEN [facility]ing Facility: [facility] Address: [address] [place] [id number] Performed By: #### 2 4321-2 #### [facility] CLIA [id number] [place] [address] [place] Sodium [Moles/Vol] 140 mmol/L Normal 136-144 [facility] Comment on above: Order Comment: Speci men Type: BLOOD SPECIMEN [facility] Facility: [facility] Address: [address] [place] [address] Performed By: #### 2 4321-2 #### [facility] CLIA [id number] [place] [address] [place] Urea nitrogen [Mass/Vol] 35 mg/dL High - [facility] Comment on above: Order Comment: Speci men Type: BLOOD SPECIMEN [facility]ing Facility: [facility] Address: [address] [place] [address] Performed By: #### 2 4321-2 #### [facility] CLIA [id number] [address] [place] [address] [place] CBC panel Auto (Bld)on 06-29 Erythrocyte distribution width (RBC) [Ratio] 17.5 % High 11.5-15.0 [facility] Comment on above: Order Comment: Speci men Type: BLOOD SPECIMENOrdering Facility: [facility] Address: [address] [place] [address] Performed By: #### 5 8410-2 ####[facility] LABORATORYCLIA [id number] [place] [address] [place] Hematocrit (Bld) [Volume fraction] 39.4 % Normal 36.0-46.0 [facility] Comment on above: Order Comment: Speci men Type: BLOOD SPECIMENOrdering Facility: [facility] Address: [address] [place] [address] Performed By: #### 5 8410-2 ####[facility] LABORATORYCLIA [id number] [place] [id number] [place] Hemoglobin (Bld) [Mass/Vol] 12.3 g/dL Normal 11.5-15.5 [facility] Comment on above: Order Comment: Speci men Type: BLOOD SPECIMENOrdering Facility: [facility] Address: [address] [place] [address] Performed By: #### 5 8410-2 ####[facility] LABORATORYCLIA [id number] [address] [place] MCH (RBC) [Entitic mass] 26.4 pg Normal 26.0-34.0 [facility] Comment on above: Order Comment: Speci men Type: BLOOD SPECIMENOrdering Facility: [facility] Address: [address] [place] [address] Performed By: #### 5 8410-2 ####[facility] LABORATORYCLIA [id number] [place] [address] [place] MCHC (RBC) [Mass/Vol] 31.2 g/dL Normal 30.5-36.0 [facility] Comment on above: Order Comment: Speci men Type: BLOOD SPECIMENOrdering Facility: [facility] Address: [address] [place] [address] Performed By: #### 5 8410-2 ####[facility] LABORATORYCLIA [id number] [address] [place] MCV (RBC) [Entitic vol] 84.5 fL Normal 80.0-100.0 [facility] Comment on above: Order Comment: Speci men Type: BLOOD SPECIMENOrdering Facility: [facility] Address: [address] [place] [address] Performed By: #### 5 8410-2 ####[facility] LABORATORYCLIA [id number] [address] [place] Nucleated RBC (Bld) [#/Vol] 10*3/uL Normal <0.01 [facility] Comment on above: Order Comment: Speci men Type: BLOOD SPECIMENOrdering Facility: [facility] Address: [address] [place] [address] Performed By: #### 5 8410-2 ####[facility] LABORATORYCLIA [id number] [address] [place] Platelet mean volume (Bld) [Entitic vol] 10.7 fL Normal 9.0-12.7 [facility] Comment on above: Order Comment: Speci men Type: BLOOD SPECIMENOrdering Facility: [facility] Address: [address] [place] [address] Performed By: #### 5 8410-2 ####[facility] LABORATORYCLIA [id number] [place] [id number] [facility] [place] Platelets (Bld) [#/Vol] 199 10*3/uL Normal 150-400 [facility] Comment on above: Order Comment: Speci men Type: BLOOD SPECIMENOrdering Facility: [facility] Address: [address] [place] [address] Performed By: #### 5 8410-2 ####[facility] LABORATORYCLIA [id number] [place] [id number] [place] RBC (Bld) [#/Vol] 4.66 10*6/uL Normal 3.90-5.20 [facility] Comment on above: Order Comment: Speci men Type: BLOOD SPECIMENOrdering Facility: [facility] Address: [address] [place] [address] Performed By: #### 5 8410-2 ####[facility] LABORATORYCLIA [id number] [place] [id number] [place] WBC (Bld) [#/Vol] 7.79 10*3/uL Normal 3.70-11.00 [facility] Comment on above: Order Comment: Speci men Type: BLOOD SPECIMENOrdering Facility: [facility] Address: [address] [place] [address] Performed By: #### 5 8410-2 ####[facility] LABORATORYCLIA [id number] [place] [id number] [facility] OF [place] ECG COMPLETEon 06-30-2023 ECG COMPLETE Ventricular Rate : 8 5 BPM Atrial Rate : 85 BPM P-R Interval : 181 ms QRS Duration : 128 ms Q-T Interval : 443 ms QTC Calculation(Bazett) : 527 ms Calculated P [place] : 86 degrees Calculated R [place] : 157 degrees Calculated T [place] : -65 degrees Sinus rhythm Left atrial enlargement Nonspecific intraventricular conduction delay Lateral infarct, age indeterminate Abnormal ECG Confirmed by STEVAN BRANTLEY MD ([id number]) on 07/01/2023 5:28:30 PM Also confirmed by STEVAN BRANTLEY MD ([id number]), editor trade journal ANGIE TAM ([id number]) on 07/07/2023 8:35:31 AM NAME : ARLETH ELIAS PID : [id number] : 1945 Gender : Female Race : ORD : [id number] Procedure Date : Jun 30 2023 18:29:35 Edit Date : Jul 07 2023 08:35:33 Diagnosis: Sinus rhythm Left atrial enlargement Nonspecific intraventricular conduction delay Lateral infarct, age indeterminate Abnormal ECG Confirmed by STEVAN BRANTLEY MD ([id number]) on 07/01/2023 5:28:30 PM Also confirmed by STEVAN BRANTLEY MD ([id number]), editor trade journal ANGIE TAM ([id number]) on 07/07/2023 8:35:31 AM Test Reason : Post-OP Location : 400 : FVEKG POOL Overread By : STEVAN BRANTLEY MD Edited By : ANGIE TAM Referred By : , Acquired by : ROSSY RAYA [facility] NURSING PROGon 06-30-2023 NURSING PROG HNO ID: [id number] Author: GRAYSON CIFUENTES RN Service: Nursing Author Type: Registered [...] LCW. No hematoma. No pain or complaints. [facility] NURSING PROG HNO ID: [id number] Author: BETH NOGUEIRA RN Service: ? Author [...] Report given to Roque Cisse RN. Normal [facility] Basic metabolic 2000 panelon 06-22-2023 Anion gap [Moles/Vol] 14 mmol/L 9 - 18 mmol/L [facility] Calcium [Mass/Vol] 10.0 mg/dL 8.5 - 10. 2 mg/dL [facility] Chloride [Moles/Vol] 103 mmol/L 97 - 10 5 mmol/L [facility] CO2 [Moles/Vol] 26 mmol/L 22 - 30 mmol/L [facility] Creatinine [Mass/Vol] 1.46 mg/dL High 0.58 - 0.96 mg/dL [facility] Estimated Glomerular Filtration Rate 37 mL/min/1.73m Low >=60 mL/min/1.73m [facility] Glucose [Mass/Vol] 112 mg/dL High 74 - 99 mg/dL [facility] Potassium [Moles/Vol] 3.9 mmol/L 3.7 - 5.1 mmol/L [facility] Sodium [Moles/Vol] 143 mmol/L 136 - 144 mmol/L [facility] Urea nitrogen [Mass/Vol] 32 mg/dL High 7 - 21 mg/dL [facility] HEMOGLOBIN A1C (POC)on 06-02 HbA1c (Bld) [Mass fraction] 5.4 % 4.3 - 5.6 % [facility] ECG COMPLETEon 05-31-2023 Atrial Rate 104 BPM [facility] Calculated P [place] 47 degrees [facility] Calculated R [place] -90 degrees [facility] Calculated T [place] 76 degrees [facility] P-R Interval 162 ms [facility] QRS Duration 160 ms [facility] QT Interval 392 ms [facility] QTC Calculation (Bazett) 515 ms [facility] Ventricular Rate [address] [facility] CBC PNL BLD AUTOon 05-25 [facility] NRBC # BLD AUTO <0.[address] [facility] PLATELET # BLD AUTO 240 [facility] PMV BLD AUTO 11.2 fL 9.0 - 12.[address] [facility] WBC # BLD AUTO 10.26 [facility] Erythrocyte distribution width (RBC) [Ratio] 16.7 % High 11.5 - 15.0 % [facility] Hematocrit (Bld) [Volume fraction] 43.7 % 36.0 - 46.0 % [facility] Hemoglobin (Bld) [Mass/Vol] 13.1 g/dL 11.5 - 15.5 g/dL [facility] Interpretation and review of laboratory results Abnormal [facility] MCH (RBC) [Entitic mass] 27.3 pg 26.0 - 34.[address] [facility] MCHC (RBC) [Mass/Vol] 30.0 g/dL Low 30.5 - 36.0 g/dL [facility] MCV (RBC) [Entitic vol] 91.2 fL 80.0 - 100.[address] [facility] RBC (Bld) [#/Vol] 4.79 10*6/uL 3.90 - 5.2 0 m/uL [facility] Specimen Type: BLOOD SPECIMEN Ordering Facility: [facility] Address: [address] [place] [address] Original Ordering Provider: CHALO RIVAS [facility] ECHOon 05-25-2023 [facility] Urinalysis, reflex to cultur jaqui 02-25-2023 Urine Reflexed to Culture Yes Normal [facility] Comment on above: Performed By: #### C OVRG #### [facility] [address] [place] [address] Urine Microscopicon 02-26-20 23 Urine Bacteria MODERATE Abnormal Negative [facility] Comment on above: Performed By: #### C OVRG #### [facility] [address] [place] [address] CBC With Platelet and Differ entialon 02-24-2023 Basophils (Bld) [#/Vol] 0.1 10*3/uL Normal 0.0-0.2 [facility] Comment on above: Performed By: #### C BCWD #### [facility] [address] [place] [address] Basophils/100 WBC (Bld) 0.4 % Normal [facility] Comment on above: Performed By: #### C BCWD #### [facility] [address] [place] [address] Eosinophils (Bld) [#/Vol] 0.1 10*3/uL Normal 0.0-0.7 [facility] Comment on above: Performed By: #### C BCWD #### [facility] [address] [place] [address] Eosinophils/100 WBC (Bld) 0.9 % Normal [facility] Comment on above: Performed By: #### C BCWD #### [facility] [address] [place] [address] Erythrocyte distribution width (RBC) [Ratio] 16.4 % Critically high 11.5-14.5 [facility] Comment on above: Performed By: #### C BCWD #### [facility] [address] [place] [address] Hematocrit (Bld) [Volume fraction] 36.2 % Low 37.0-47.0 [facility] Comment on above: Performed By: #### C BCWD #### [facility] [address] [place] [address] Hemoglobin (Bld) [Mass/Vol] 11.4 g/dL Low 12.0-16.0 [facility] Comment on above: Performed By: #### C BCWD #### [facility] [address] [place] [address] Lymphocytes (Bld) [#/Vol] 2.2 10*3/uL Normal 1.0-4.8 [facility] Comment on above: Performed By: #### C BCWD #### [facility] [address] [place] [address] Lymphocytes/100 WBC (Bld) 14.4 % Normal [facility] Comment on above: Performed By: #### C BCWD #### [facility] [address] [place] [address] MCH (RBC) [Entitic mass] 27.9 pg Normal 27.0-31.3 [facility] Comment on above: Performed By: #### C BCWD #### [facility] [address] [place] [address] MCHC 31.5 % Low 33.0-37.0 [facility] Comment on above: Performed By: #### C BCWD #### [facility] [address] [place] [address] MCV (RBC) [Entitic vol] 88.7 fL Normal 79.4-94.8 [facility] Comment on above: Performed By: #### C BCWD #### [facility] [address] [place] [address] Monocytes (Bld) [#/Vol] 1.4 10*3/uL Critically high 0.2-0.8 [facility] Comment on above: Performed By: #### C BCWD #### [facility] [address] [place] [address] Monocytes/100 WBC (Bld) 9.2 % Normal [facility] Comment on above: Performed By: #### C BCWD #### [facility] [address] [place] [address] Neutrophils (Bld) [#/Vol] 11.3 10*3/uL Critically high 1.4-6.5 [facility] Comment on above: Performed By: #### C BCWD #### [facility] [address] [place] [address] Neutrophils/100 WBC (Bld) 74.6 % Normal [facility] Comment on above: Performed By: #### C BCWD #### [facility] [address] [place] [address] Platelets (Bld) [#/Vol] 196 10*3/uL Normal 130-400 [facility] Comment on above: Performed By: #### C BCWD #### [facility] [address] [place] [address] RBC (Bld) [#/Vol] 4.08 10*6/uL Low 4.20-5.40 [facility] Comment on above: Performed By: #### C BCWD #### [facility] [address] [place] [address] WBC (Bld) [#/Vol] 15.1 10*3/uL Critically high 4.8-10.8 [facility] Comment on above: Performed By: #### C BCWD #### [facility] [address] [place] [address] COVID-19on 02-24-2023 SARS-CoV-2 (COVID-19) RNA JAKE+probe Ql (Unsp spec) Not detected Normal Not Detect [facility] Comment on above: Result Comment: Rapi d [...] authorized laboratories. Fact sheet for Healthcare Providers: https://www.fda.gov/media/204180/download Fact sheet for Patients: https://www.fda.gov/media/739669/download METHODOLOGY: Isothermal Nucleic Acid Amplification Performed By: #### C OVRG #### [facility] [address] [place] [address] Comprehensive Metabolic Pane jh 02-24-2023 Albumin [Mass/Vol] 3.4 g/dL Low 3.5-4.6 [facility] Comment on above: Performed By: #### C OVRG #### [facility] [address] [place] [address] ALP [Catalytic activity/Vol] 114 U/L Normal 40-130 [facility] Comment on above: Performed By: #### C OVRG #### [facility] [address] [place] [address] ALT [Catalytic activity/Vol] 11 U/L Normal 0-33 [facility] Comment on above: Performed By: #### C OVRG #### [facility] [address] [place] [address] Anion gap [Moles/Vol] 14 mmol/L Normal 9-15 [facility] Comment on above: Performed By: #### C OVRG #### [facility] [address] [place] [address] AST [Catalytic activity/Vol] 17 U/L Normal 0-35 [facility] Comment on above: Performed By: #### C OVRG #### [facility] [address] [place] [address] Bilirubin [Mass/Vol] 1.0 mg/dL Critically high 0.2-0.7 [facility] Comment on above: Performed By: #### C OVRG #### [facility] [address] [place] [address] Calcium [Mass/Vol] 8.7 mg/dL Normal 8.5-9.9 [facility] Comment on above: Performed By: #### C OVRG #### [facility] [address] [place] [address] Chloride [Moles/Vol] 100 mmol/L Normal 95-107 [facility] Comment on above: Performed By: #### C OVRG #### [facility] [address] [place] [address] CO2 [Moles/Vol] 22 mmol/L Normal 20-31 [facility] Comment on above: Performed By: #### C OVRG #### [facility] [address] [place] [address] Creatinine [Mass/Vol] 1.72 mg/dL Critically high 0.50-0.90 [facility] Comment on above: Performed By: #### C OVRG #### [facility] [address] [place] [address] GFR 30.4 Low >60 [facility] Comment on above: Result Comment: Tashi atric calculator link https://www.kidney.org/professionals/kdoqi/gfr_calculatorped Effective Jan 12, [...] secretion. Performed By: #### C OVRG #### [facility] [address] [place] [address] Globulin (S) [Mass/Vol] 3.0 g/dL Normal 2.3-3.5 [facility] Comment on above: Performed By: #### C OVRG #### [facility] [address] [place] [address] Glucose [Mass/Vol] 112 mg/dL Critically high 70-99 [facility] Comment on above: Performed By: #### C OVRG #### [facility] [address] [place] [address] Potassium [Moles/Vol] 3.6 mmol/L Normal 3.4-4.9 [facility] Comment on above: Performed By: #### C OVRG #### [facility] [address] [place] [address] Protein [Mass/Vol] 6.4 g/dL Normal 6.3-8.0 [facility] Comment on above: Performed By: #### C OVRG #### [facility] [address] [place] [address] Sodium [Moles/Vol] 136 mmol/L Normal 135-144 [facility] Comment on above: Performed By: #### C OVRG #### [facility] [address] [place] [address] Urea nitrogen [Mass/Vol] 31 mg/dL Critically high 8-23 [facility] Comment on above: Performed By: #### C OVRG #### [facility] [address] [place] [address] Culture, Urineon 02-24-2023 Culture, Urine ORDER#: [id number] ORDERED BY: TANIA CAZARES SOURCE: Urine Clean Catch COLLECTED: 02/24/23 15:45 ANTIBIOTICS AT NELLY.: RECEIVED : 02/25/23 00:27 Culture, Urine FINAL 02/26/23 12:12 Cult,Urine: NO SIGNIFICANT GROWTH Performed at [address] [address] Normal [facility] Comment on above: Performed By: #### C ALFREDARScottie #### [facility] [address] [place] [address] D-Dimer Quanton 02-24-2023 D-Dimer Quant 2.01 mg/L FEU Critically high 0.00-0.50 [facility] Comment on above: Order Comment: CALL [facility] LCED tel. [phone], DIMER results called to and read back by DR WALSH, 02/24/2023 17:10, by PALSO Result Comment: VTE (DVT or PE) cut-off = 0.50 mg/L FEU Performed By: #### D RITU #### [facility] [address] [place] [address] High Sensitivity Troponin To n 02-24-2023 High Sensitivity Troponin T 406 ng/L Critically high 0-19 [facility] Comment on above: Order Comment: CALL [facility]ED tel. [phone], Chemistry results called to and read back by JAZMYNE MAURER RN, 02/24/2023 20:02, by MeritfulAM Result Comment: High Sensitivity Troponin values cannot be compared with other Troponin methodologies. Performed By: #### T RP5 #### [facility] [address] [facility] [place] [address] High Sensitivity Troponin T 427 ng/L Critically high 0-19 [facility] Comment on above: Order Comment: CALL Alvarez LCED tel. [phone], TRP5 results called to and read back by BETH PORTILLO, 02/24/2023 19:24, by WEBAM Result Comment: High Sensitivity Troponin values cannot be compared with other Troponin methodologies. Performed By: #### T RP5 #### [facility] [address] [place] [address] High Sensitivity Troponin T 487 ng/L Critically high 0-19 [facility] Comment on above: Order Comment: CALL [facility] tel. [phone], TROP results called to and read back by MIESHA Nogueirae, 02/24/2023 17:13, by YARELIS Result Comment: High Sensitivity Troponin values cannot be compared with other Troponin methodologies. Performed By: #### T RP5 #### [facility] [address] [place] [address] Lactic Acidon 02-24-2023 Lactate [Moles/Vol] 1.0 mmol/L Normal 0.5-2.2 [facility] Comment on above: Performed By: #### L ACID #### [facility] [address] [facility] [place] [address] Magnesiumon 02-24-2023 Magnesium [Mass/Vol] 2.5 mg/dL Critically high 1.7-2.4 [facility] Comment on above: Performed By: #### M G #### [facility] [address] [place] [address] NM LUNG VENT/PERFUSION (VQ)o n 02-24-2023 NM [...] Jackson Wong MD 02/24/23 Final result Normal [facility] Procalcitoninon 02-24-2023 Procalcitonin 0.10 ng/mL Normal 0.00-0.15 [facility] Comment on above: Order Comment: CALL [facility] LCED tel. [phone], TROP results called to and read back [...] to determine the patient's Mortality Risk Prognosis ([email or web address]-evl-[email or web address]) In healthy neonates, plasma Procalcitonin (PCT) concentrations increase gradually after , reaching peak values at about 24 hours of age then decrease to normal values below 0.5 ng/mL by 48-72 hours of age. Performed By: #### P ROCT #### [facility] [address] [facility] [address] Urinalysis, reflex to cultur jaqui 02-24-2023 Bilirubin Ql (U) Negative Normal Negative [facility] Comment on above: Performed By: #### C OVRG #### [facility] [address] [facility] [address] Clarity (U) CLOUDY Abnormal Clear [facility] Comment on above: Performed By: #### C OVRG #### [facility] [address] [place] [address] Color (U) Yellow Normal [facility] Comment on above: Performed By: #### C OVRG #### [facility] [address] [place] [address] Glucose Ql (U) Negative Normal Negative [facility] Comment on above: Performed By: #### C OVRG #### [facility] [address] [place] [address] Hemoglobin Ql (U) TRACE Abnormal Negative [facility] Comment on above: Performed By: #### C OVRG #### [facility] [address] [place] [address] Ketones Ql (U) Negative Normal Negative [facility] Comment on above: Performed By: #### C OVRG #### [facility] [address] [place] [address] Leukocyte esterase Test strip Ql (U) Negative Normal Negative [facility] Comment on above: Performed By: #### C OVRG #### [facility] [address] [place] [address] Nitrite Ql (U) Negative Normal Negative [facility] Comment on above: Performed By: #### C OVRG #### [facility] [address] [place] [address] pH (U) 5.5 [pH] Normal 5.0-9.0 [facility] Comment on above: Performed By: #### C OVRG #### [facility] [address] [place] [address] Protein Ql (U) 100 mg/dL Abnormal Negative [facility] Comment on above: Performed By: #### C OVRG #### [facility] [address] [place] [address] Specific gravity (U) [Rel density] 1.013 Normal 1.005-1.03 [facility] Comment on above: Performed By: #### C OVRG #### [facility] [address] [place] [address] Urobilinogen Qn (U) 0.2 {Trista'U}/dL Normal < 2.0 [facility] Comment on above: Performed By: #### C OVRG #### [facility] [address] [place] [address] Urine Microscopicon 02-25-20 23 Urine Epithelial Cells Auto 10-20 Normal 0-5 [facility] Comment on above: Performed By: #### C OVRG #### [facility] [address] [place] [address] Urine RBC Auto 6-10 Abnormal 0-5 [facility] Comment on above: Performed By: #### C OVRG #### [facility] [address] [place] [address] Urine WBC Auto 10-20 Abnormal 0-5 [facility] Comment on above: Performed By: #### C OVRG #### [facility] [address] [place] [address] XR CHEST PORTABLEon 02-25-20 XR CHEST PORTABLE [...] Erasto Parker MD 02/24/23 Final result Normal [facility] proBNPon 02-24-2023 Natriuretic peptide B (Bld) [Mass/Vol] 1500 pg/mL Normal [facility] Comment on above: Order Comment: CALL [facility]ED tel. [phone],TROP results called to and read back by [...] 2006;27:330-337 Performed By: #### C OVRG #### [facility] [address] [place] [address] NURSING PROGon 02-19-2023 NURSING PROG HNO ID: [id number] Author: Nichelle Purcell RN Service: Nursing Author [...] unit via wheelchair with all belongings Normal [facility] NURSING PROG HNO ID: [id number] Author: Sera Valdez RN Service: Nursing Author Type: Registered Nurse Type: Nursing Progress Note Filed: 02/19/2023 6:18 AM Note Text: Nursing Progress Note Topic of Note: Daily Note PATIENT NAME: Arleth Elias Patient Location: [id number]/[id number] Room: [id number] Report received from previous shift nurse. resting comfortably without complaints throughout the night, VSS, SR on monitor. Dr. Christensen updated on pt. condition and plavix loading dose to be given in a.m. cont. monitoring maintained. Pt. to be d/c in am after life vest fitting. This note was completed by: Sera Valdez Normal [facility] Basic metabolic 2000 panelon 02-18-2023 Anion gap [Moles/Vol] 16 mmol/L Normal 9-18 [facility] Comment on above: Order Comment: Speci men Type: BLOOD SPECIMEN Ordering Facility: [facility] Address: [address] [place] [address] Performed By: #### 2 4321-2 #### [facility] CLIA [id number] [address] [place] [address] [place] Calcium [Mass/Vol] 8.6 mg/dL Normal 8.5-10.2 [facility] Comment on above: Order Comment: Speci men Type: BLOOD SPECIMEN Ordering Facility: [facility] Address: [address] [place] [address] Performed By: #### 2 4321-2 #### [facility] CLIA [id number] [address] [place] [address] [place] Chloride [Moles/Vol] 100 mmol/L Normal 97-105 [facility] Comment on above: Order Comment: Speci men Type: BLOOD SPECIMEN Ordering Facility: [facility] Address: [address] [place] [address] Performed By: #### 2 4321-2 #### [facility] CLIA [id number] [address] [place] [address] [place] CO2 [Moles/Vol] 22 mmol/L Normal 22-30 [facility] Comment on above: Order Comment: Speci men Type: BLOOD SPECIMEN Ordering Facility: [facility] Address: [address] [place] [address] Performed By: #### 2 4321-2 #### [facility] CLIA [id number] [address] [place] [address] [place] Creatinine [Mass/Vol] 0.89 mg/dL Normal 0.58-0.96 [facility] Comment on above: Order Comment: [place] andrew Type: BLOOD SPECIMEN Ordering Facility: [facility] Address: [address] [place] [address] Performed By: #### 2 4321-2 #### [facility] CLIA [id number] [address] [place] [address] [place] Creatinine and Glomerular filtration rate.predicted panel (S/P/Bld) 67 mL/min/1.73m??? Normal >=60 [facility] Comment on above: Order Comment: [place] andrew Type: BLOOD SPECIMEN Ordering Facility: [facility] Address: [address] [place] [address] Result Comment: Tanisha mated Glomerular Filtration Rate [...] GFR. Performed By: #### 2 4321-2 #### [facility] CLIA [id number] [place], [place] [address] [place] Glucose [Mass/Vol] 206 mg/dL High 74-99 [facility] Comment on above: Order Comment: [place] andrew Type: BLOOD SPECIMEN Ordering Facility: [facility] Address: [address] [place] [address] Result Comment: The [place] [employer] (ADA) provides guidance for cutoff [...] Standards of Medical Care in Diabetes 2016, [place] [employer]. Diabetes Care. 2016.39(Suppl 1). Performed By: #### 2 4321-2 #### [facility] CLIA [id number] [address] [place] [address] [place] Potassium [Moles/Vol] 3.3 mmol/L Low 3.7-5.1 [facility] Comment on above: Order Comment: Speci men Type: BLOOD SPECIMEN Ordering Facility: [facility] Address: [address] [place] [address] Performed By: #### 2 4321-2 #### [facility] CLIA [id number] [address] [place] [address] [place] Sodium [Moles/Vol] 138 mmol/L Normal 136-144 [facility] Comment on above: Order Comment: Speci men Type: BLOOD SPECIMEN Ordering Facility: [facility] Address: [address] [place] [address] Performed By: #### 2 4321-2 #### [facility] CLIA [id number] [address] [place] [address] [place] Urea nitrogen [Mass/Vol] 28 mg/dL High 7-21 [facility] Comment on above: Order Comment: Speci men Type: BLOOD SPECIMEN Ordering Facility: [facility] Address: [address] [place] [address] Performed By: #### 2 4321-2 #### [facility] CLIA [id number] [address] [place] [address] [place] CBC panel Auto (Bld)on 02-18 Erythrocyte distribution width (RBC) [Ratio] 15.9 % High 11.5-15.0 [facility] Comment on above: Order Comment: Speci men Type: BLOOD SPECIMEN Ordering Facility: [facility] Address: [address] [place] [address] Performed By: #### 5 8410-2 #### [facility] CLIA [id number] [address] [place] [address] [place] Hematocrit (Bld) [Volume fraction] 36.3 % Normal 36.0-46.0 [facility] Comment on above: Order Comment: Speci men Type: BLOOD SPECIMEN Ordering Facility: [facility] Address: [address] [place] [address] Performed By: #### 5 8410-2 #### [facility] CLIA [id number] [address] [place] [address] [place] Hemoglobin (Bld) [Mass/Vol] 12.3 g/dL Normal 11.5-15.5 [facility] Comment on above: Order Comment: Speci men Type: BLOOD SPECIMEN Ordering Facility: [facility] Address: [address] [place] [address] Performed By: #### 5 8410-2 #### [facility] CLIA [id number] [address] [place] [address] [facility] OF [place] MCH (RBC) [Entitic mass] 28.9 pg Normal 26.0-34.0 [facility] Comment on above: Order Comment: Speci men Type: BLOOD SPECIMEN Ordering Facility: [facility] Address: [address] [place] [address] Performed By: #### 5 8410-2 #### [facility] CLIA [id number] [address] [place] [address] [place] MCHC (RBC) [Mass/Vol] 33.9 g/dL Normal 30.5-36.0 [facility] Comment on above: Order Comment: Speci men Type: BLOOD SPECIMEN Ordering Facility: [facility] Address: [address] [place] [address] Performed By: #### 5 8410-2 #### [facility] CLIA [id number] [address] [place] [address] [place] MCV (RBC) [Entitic vol] 85.2 fL Normal 80.0-100.0 [facility] Comment on above: Order Comment: Speci men Type: BLOOD SPECIMEN Ordering Facility: [facility] Address: [address] [place] [address] Performed By: #### 5 8410-2 #### [facility] CLIA [id number] [address] [place] [address] [place] Nucleated RBC (Bld) [#/Vol] 10*3/uL Normal <0.01 [facility] Comment on above: Order Comment: Speci men Type: BLOOD SPECIMEN Ordering Facility: [facility] Address: [address] [place] [address] Performed By: #### 5 8410-2 #### [facility] CLIA [id number] [address] [place] [address] [place] Platelet mean volume (Bld) [Entitic vol] 10.6 fL Normal 9.0-12.7 [facility] Comment on above: Order Comment: Speci men Type: BLOOD SPECIMEN Ordering Facility: [facility] Address: [address] [place] [address] Performed By: #### 5 8410-2 #### [facility] CLIA [id number] [address] [place] [address] [place] Platelets (Bld) [#/Vol] 203 10*3/uL Normal 150-400 [facility] Comment on above: Order Comment: Speci men Type: BLOOD SPECIMEN Ordering Facility: [facility] Address: [address] [place] [address] Performed By: #### 5 8410-2 #### [facility] CLIA [id number] [address] [place] [address] [place] RBC (Bld) [#/Vol] 4.26 10*6/uL Normal 3.90-5.20 [facility] Comment on above: Order Comment: Speci men Type: BLOOD SPECIMEN Ordering Facility: [facility] Address: [address] [place] [address] Performed By: #### 5 8410-2 #### [facility] CLIA [id number] [address] [place] [address] [place] WBC (Bld) [#/Vol] 9.80 10*3/uL Normal 3.70-11.00 [facility] Comment on above: Order Comment: Speci men Type: BLOOD SPECIMEN Ordering Facility: [facility] Address: [address] [place] [address] Performed By: #### 5 8410-2 #### [facility] CLIA [id number] OF [facility] CNDSon 02-18-2023 [facility] HNO ID: [id number] Author: Mahsa Christensen MD Service: Cardiovascular Medicine Author Type: Physician Type: Discharge Summary Filed: 02/22/2023 3:59 PM Note Text: [facility] STAFF PHYSICIAN NOTE OF PERSONAL INVOLVEMENT IN CARE IMPRESSION: Patient is a 77 year old female with a PMHx of CAD without previous stenting, HTN, HLD, PVD s/p right axillobifemoral bypass graft on 01/02/20 for severe abdominal aortic stenosis at level of renal arteries, Type 2 DM, ERASMO who was sent in to [facility] ED for a new finding of diminished LVEF. She was then transferred to for a cath and this lead to stenting of her LAD. PLAN: - DAPT with ASA and Brilinta - Will be started on GDMT as tolerated - Will need Lasix for now - Should follow with her feed miller soon following discharge I have reviewed the documentation obtained and documented by the Nurse Practitioner and I have personally performed the substantive portion of the visit which includes the medical decision making. I have discussed the case and management of the patient's care. (Inpatient): I personally spent 60 total minutes total time in the management and care of this patient. STAFF PHYSICIAN: Mahsa Christensen MD DATE OF SERVICE: February 22, 2023 TIME OF SERVICE: 9:10 AM Department of Cardiovascular Medicine Discharge Summary (Template ID [id number]) PATIENT NAME: Arleth Elias ADMISSION DATE: 02/17/2023 DISCHARGE DATE: 02/18/2023 Attending Physician: Mahsa Christensen MD Code Status: Prior Primary Service: Admission Diagnosis:HFrEF Discharge Diagnosis: Coronary artery disease Secondary Diagnoses: HFrEF/ischemic cardiomyopathy Patient Active Hospital Problem List: Status post angioplasty with stent (02/17/2023) Hospital Course: 77 year old female with PMH of chronic systolic heart failure with previously recovered LVEF 35->61%, 48% 10/02, non-obstructive CAD s/p [facility] on 06/07/2019 (Dr. Patel) and 06/08/2019 (Dr. Torres, under op report, 50-60% stenosis to mid LAD, RCA and Lcx normal, follows with Dr. Patel), HTN, HLD, PVD s/p right axillobifemoral bypass graft on 01/02/20 for severe abdominal aortic stenosis at level of renal arteries, Type 2 DM, ERASMO, mild carotid atherosclerosis, NSVT. she went to the ED at [facility] on 02/16 after echocardiogram was completed and LVEF found to be 15%. She was recently admitted to an OSH with shortness of breath and chest pressure. She was transferred to [facility] for coronary angiogram. Cardiac cath yesterday [...] NEEDLE 32 gauge x Generic drug: Insulin [place] (Disposable) BLOOD GLUCOSE TEST test strip Generic drug: blood sugar diagnostic Use as instructed to monitor glucose. One touch ultra verio test strips. carvedilol 25 mg tablet Commonly known as: COREG Take 1 tablet by mouth twice daily. CPAP/BIPAP/OTHER Type .CPAPSettings into a note to see current settings/supplies/DME information. fluticasone 50 mcg/actuation nasal spray Commonly known as: FLONASE FREESTYLE LEEANN 3 SENSOR Mauricio Generic drug: Blood-G (more content not included)... Normal [facility] CONSULT PROGon 02-18-2023 CONSULT PROG HNO ID: [id number] Author: Bethany Hinojosa APRN.CNP Service: Cardiovascular Medicine Author Type: Nurse Practitioner Type: Consult Progress Note Filed: 02/18/2023 10:48 AM Note Text: [facility]ARD[facility]ICINE PROGRESS NOTE (Template ID [id number]) SERVICE DATE: 02/18/2023 SERVICE TIME: 944 PRIMARY [...] is primar (more content not included)... Normal [facility] ECG COMPLETEon 02-18-2023 ECG COMPLETE Ventricular Rate : 9 0 BPM Atrial Rate : 90 BPM P-R Interval : 173 ms QRS Duration : 179 ms Q-T Interval : 459 ms QTC Calculation(Bazett) : 562 ms Calculated P [place] : 41 degrees Calculated R [place] : -71 degrees Calculated T [place] : 68 degrees Sinus rhythm Left bundle branch block Poor R wave Progression, late transition Abnormal ECG Confirmed by DAYTON CARSON MD ([id number]) on 03/05/2023 4:42:35 PM NAME : ARLETH ELIAS PID : [id number] : 1945 Gender : Female Race : ORD : [id number] Procedure Date : Feb 18 2023 08:06:17 Edit Date : Mar 05 2023 16:42:36 Diagnosis: Sinus rhythm Left bundle branch block Poor R wave Progression, late transition Abnormal ECG Confirmed by DAYTON CARSON MD ([id number]) on 03/05/2023 4:42:35 PM Test Reason : Chest Pain Location : 400 : FVEKG 3P31 Overread By : DAYTON CARSON MD Edited By : DAYTON CARSON MD Referred By : , Acquired by : [id number], Normal [facility] ECHO LIMITEDon 02-18-2023 ECHO LIMITED Echocardiography Report: [facility] Date of service: 02/18/2023 1:52:44 PM Ordering physician: MAHSA CHRISTENSEN Indication: Limited LV function/EF Technologist: Toña Cantu [...] the prior CC echocardiographic exam performed on 09/10/2022 report comparison only: prior LVEF reported as 48%. and now some MR. * * * Final * * * [employer] Medical Image : [id number]. [id number] Normal [facility] NURSING PROGon 02-18-2023 NURSING PROG HNO ID: [id number] Author: Tere Green RN Service: Nursing Author Type: Registered Nurse Type: Nursing Progress Note Filed: 02/18/2023 6:51 PM Note Text: ~[phone] Pt AANDO, VSS, denies pain, cp, c/o [...] order for home insulin or SS insulin, [employer] message sent to Dr. Christensen to notify, as well as cardiology pager at [phone] as follows: Pt in CPPU 318, P. Curt, pt is diabetic, no insulin ordered, pt takes Levemir 28 units and in need of SS order as well. Thank you. Tere [phone] Pt resting, call light in reach, pt [...] tray. Report given to covering RN, JACOB. ~[phone] Pt resting, denies pain, mild sob, SO2 99% RA, diesel service technician arrived at bedside, pt currently ST on the monitor, HR 102. ~[phone] Echo complete, pt seen by Chetan lund. Pt denies pain, still having intermittent sob lasting 3 breaths then subsides, per pt. Pt new to Brilinta. ~[phone] Pt resting, seen by JING BURCIAGA who discussed with pt that EF from echo completed today was less than 35%. Pt denies pain, pt received filled prescriptions for Plavix (switched from Brilinta, pt instructed to take 8 tablets tomorrow and then start 1 tablet daily, per DC instructions) and Diovan, reviewed DC instructions with pt and spouse with good understanding, pt awaiting fitting of life vest, phone number for rep Chetan obtained from by calling [employer], message left for Chetan letting him know pt is ready for DC and awaiting life vest fitting, EF was less than 35%, per INTERNET MANAGER, SD, awaiting return call. Pt remains SR, no additional needs, will continue to monitor. ~[phone] Received return call from rep, Chetan, will [...] to be given to next shift RN. [facility] NURSING PROG HNO ID: [id number] Author: Sesar Espinoza, MYA Service: Nursing Author [...] in place CDI, reported to oncoming shift [facility] PT EDon 02-18-2023 PT ED HNO ID: [id number] Author: Radha Harrison, MYA Service: Cardiac Rehab Author Type: [...] Rehab Programs Outpatient Diet/Nutrition Class Invitation Signature: Radha harrison RN Pager: [email or web address] Date: February 18, 2023 Time: 11:00 AM Normal [facility] CBC W Auto Differential pane l (Bld)on 02-17-2023 Basophils (Bld) [#/Vol] 0.08 10*3/uL Normal <0.11 [facility] Comment on above: Order Comment: Speci men Type: BLOOD SPECIMENOrdering Facility: [facility] Address: [address] [place] [address] Performed By: #### 5 7021-8 ####[facility] [id number] [place] [address] [place] Basophils/100 WBC (Bld) 1.0 % Normal [facility] Comment on above: Order Comment: Speci men Type: BLOOD SPECIMENOrdering Facility: [facility] Address: [address] [place] [address] Performed By: #### 5 7021-8 ####[facility] [id number] [place] [address] [place] Differential cell count method Nom (Bld) Auto Normal [facility] Comment on above: Order Comment: Speci men Type: BLOOD SPECIMENOrdering Facility: [facility] Address: [address] [place] [address] Performed By: #### 5 7021-8 ####[facility] [id number] [place] [address] [place] Eosinophils (Bld) [#/Vol] 0.18 10*3/uL Normal <0.46 [facility] Comment on above: Order Comment: Speci men Type: BLOOD SPECIMENOrdering Facility: [facility] Address: [address] [place] [address] Performed By: #### 5 7021-8 ####[facility] [id number] [place] [address] [place] Eosinophils/100 WBC (Bld) 2.3 % Normal [facility] Comment on above: Order Comment: Speci men Type: BLOOD SPECIMENOrdering Facility: [facility] Address: [address] [place] [address] Performed By: #### 5 7021-8 ####[facility] [id number] [place] [address] [place] Erythrocyte distribution width (RBC) [Ratio] 16.4 % High 11.5-15.0 [facility] Comment on above: Order Comment: Speci men Type: BLOOD SPECIMENOrdering Facility: [facility] Address: [address] [place] [address] Performed By: #### 5 7021-8 ####[facility] [id number] [address] [place] Hematocrit (Bld) [Volume fraction] 36.7 % Normal 36.0-46.0 [facility] Comment on above: Order Comment: Speci men Type: BLOOD SPECIMENOrdering Facility: [facility] Address: [address] [place] [address] Performed By: #### 5 7021-8 ####[facility] [id number] [place] [id number] [place] Hemoglobin (Bld) [Mass/Vol] 11.9 g/dL Normal 11.5-15.5 [facility] Comment on above: Order Comment: Speci men Type: BLOOD SPECIMENOrdering Facility: [facility] Address: [address] [place] [address] Performed By: #### 5 7021-8 ####[facility] [id number] [place] [address] [place] Immature granulocytes (Bld) [#/Vol] 10*3/uL Normal <0.10 [facility] Comment on above: Order Comment: Speci men Type: BLOOD SPECIMENOrdering Facility: [facility] Address: [address] [place] [address] Performed By: #### 5 7021-8 ####[facility] [id number] [place] [address] [place] Immature granulocytes/100 WBC (Bld) 0.1 % Normal [facility] Comment on above: Order Comment: Speci men Type: BLOOD SPECIMENOrdering Facility: [facility] Address: [address] [place] [address] Performed By: #### 5 7021-8 ####[facility] [id number] [place] [id number] [place] Lymphocytes (Bld) [#/Vol] 2.99 10*3/uL Normal 1.00-4.00 [facility] Comment on above: Order Comment: Speci men Type: BLOOD SPECIMENOrdering Facility: [facility] Address: [address] [place] [address] Performed By: #### 5 7021-8 ####[facility] [id number] [place] [id number] [place] Lymphocytes/100 WBC (Bld) 37.8 % Normal [facility] Comment on above: Order Comment: Speci men Type: BLOOD SPECIMENOrdering Facility: [facility] Address: [address] [place] [address] Performed By: #### 5 7021-8 ####[facility] [id number] [place] [address] [place] MCH (RBC) [Entitic mass] 29.0 pg Normal 26.0-34.0 [facility] Comment on above: Order Comment: Speci men Type: BLOOD SPECIMENOrdering Facility: [facility] Address: [address] [place] [address] Performed By: #### 5 7021-8 ####[facility] [id number] [place] [id number] [place] MCHC (RBC) [Mass/Vol] 32.4 g/dL Normal 30.5-36.0 [facility] Comment on above: Order Comment: Speci men Type: BLOOD SPECIMENOrdering Facility: [facility] Address: [address] [place] [address] Performed By: #### 5 7021-8 ####[facility] [id number] [place] [address] [place] MCV (RBC) [Entitic vol] 89.3 fL Normal 80.0-100.0 [facility] Comment on above: Order Comment: Speci men Type: BLOOD SPECIMENOrdering Facility: [facility] Address: [address] [place] [address] Performed By: #### 5 7021-8 ####[facility] [id number] [place] [address] [place] Monocytes (Bld) [#/Vol] 0.79 10*3/uL Normal <0.87 [facility] Comment on above: Order Comment: Speci men Type: BLOOD SPECIMENOrdering Facility: [facility] Address: [address] [place] [address] Performed By: #### 5 7021-8 ####[facility] [id number] [place] [id number] [facility] OF [place] Monocytes/100 WBC (Bld) 10.0 % Normal [facility] Comment on above: Order Comment: Speci men Type: BLOOD SPECIMENOrdering Facility: [facility] Address: [address] [place] [address] Performed By: #### 5 7021-8 ####[facility] [id number] [place] [address] [place] Neutrophils (Bld) [#/Vol] 3.85 10*3/uL Normal 1.45-7.50 [facility] Comment on above: Order Comment: Speci men Type: BLOOD SPECIMENOrdering Facility: [facility] Address: [address] [place] [address] Performed By: #### 5 7021-8 ####[facility]ORYCLIA [id number] [place] [address] [place] Neutrophils/100 WBC (Bld) 48.8 % Normal [facility] Comment on above: Order Comment: Speci men Type: BLOOD SPECIMENOrdering Facility: [facility] Address: [address] [place] [address] Performed By: #### 5 7021-8 ####[facility] [id number] [place] [address] [place] Nucleated RBC (Bld) [#/Vol] 10*3/uL Normal <0.01 [facility] Comment on above: Order Comment: Speci men Type: BLOOD SPECIMENOrdering Facility: [facility] Address: [address] [place] [address] Performed By: #### 5 7021-8 ####[facility] [id number] [place] [address] [place] Nucleated RBC/100 WBC (Bld) [Ratio] 0.0 /100 WBC Normal [facility] Comment on above: Order Comment: Speci men Type: BLOOD SPECIMENOrdering Facility: [facility] Address: [address] [place] [address] Performed By: #### 5 7021-8 ####[facility] [id number] [place] [address] [place] Platelet mean volume (Bld) [Entitic vol] 10.5 fL Normal 9.0-12.7 [facility] Comment on above: Order Comment: Speci men Type: BLOOD SPECIMENOrdering Facility: [facility] Address: [address] [place] [address] Performed By: #### 5 7021-8 ####[facility]ORYCLIA [id number] [place] [address] [facility] OF [place] Platelets (Bld) [#/Vol] 185 10*3/uL Normal 150-400 [facility] Comment on above: Order Comment: Speci men Type: BLOOD SPECIMENOrdering Facility: [facility] Address: [address] [place] [address] Performed By: #### 5 7021-8 ####[facility] [id number] [place] [address] [place] RBC (Bld) [#/Vol] 4.11 10*6/uL Normal 3.90-5.20 [facility] Comment on above: Order Comment: Speci men Type: BLOOD SPECIMENOrdering Facility: [facility] Address: [address] [place] [address] Performed By: #### 5 7021-8 ####[facility] [id number] [place] [address] [facility] OF [place] WBC (Bld) [#/Vol] 7.90 10*3/uL Normal 3.70-11.00 [facility] Comment on above: Order Comment: Speci men Type: BLOOD SPECIMENOrdering Facility: [facility] Address: [address] [place] [address] Performed By: #### 5 7021-8 ####[facility] [id number] [place] [address] [facility] CNDSon 02-17-2023 CNDS HNO ID: [id number] Author: Paras Ramirez MD Service: Critical Care [...] was admitted to SDU pending transfer to [facility] for ischemic workup, initially planned as a MARISSA. While in SDU she remained HDS, afebrile, without active chest pain. She was transferred in stable condition to [facility] on 02/17/2023. Labs and Procedures Pending [...] NEEDLE 32 gauge x Generic drug: Insulin [place] (Disposable) BLOOD GLUCOSE TEST test strip Generic drug: blood sugar diagnostic Use as instructed to monitor glucose. One touch ultra verio test strips. carvedilol 25 mg tablet Commonly known as: COREG Take 1 tablet by mouth twice daily. CPAP/BIPAP/OTHER Type .CPAPSettings into a note to see current settings/supplies/DME information. fluticasone 50 mcg/actuation nasal spray Commonly known as: FLONASE FREESTYLE LEEANN 3 SENSOR Mauricio Generic drug: Blood-Glucose Sensor [...] once weekly Transition of Care Transferred to [facility] for [facility] Future Appointments Future Appointments Date Time Provider Department Center 02/24/2023 2:00 PM Dwight Ross, [facility] Aniya 06/02/2023 10:20 AM Mikel Barahona APRN.CNP [facility] Aniya 06/17/2023 11:30 AM Chalo Patel DO [facility] An[place] Patient instructed to call during normal business hours for pending follow up appointment(s) Patient instructed to follow up within 2 weeks w/ PCP Radha Little, INTERNET MANAGER, INTERNET MANAGER for medication updates. (more content not included)... [facility] CONSULTon 02-17-2023 CONSULT HNO ID: [id number] Author: Chalo Patel DO Service: Cardiovascular Medicine Author Type: Physician Type: Consults Filed: 02/17/2023 5:08 PM Note Text: [facility]ARD[facility]ICINE CONSULT NOTE Arleth Elias [id number] CONSULTING SERVICE: Cardiovascular Medicine DATE OF ADMISSION: 02/16/2023 DATE OF CONSULT: 02/17/2023 REASON FOR CONSULT CHF Sent by doctor's office for newly found EF of 15%. Discharged from [facility] 02/15/2023. HISTORY OF PRESENT ILLNESS Arleth Elias is a 77 year old female with a past medical history of chronic systolic heart failure with previously recovered EF 35 --> 61%, 48% in 09/2022, and reportedly ED 15% yesterday from OSH echo, non-obstructive CAD s/p [facility] on 06/07/2019 (Dr. Patel) and 06/08/2019 (Dr. Torres, under op report, 50-60% stenosis to mid LAD, RCA and Lcx normal, follows with Dr. Patel), HTN, HLD, PVD s/p right axillobifemoral bypass graft on 01/02/20 for severe abdominal aortic stenosis at level of renal arteries, Type 2 DM, ERASMO, mild carotid atherosclerosis, NSVT, and overweight. Patient presented to the ED after receiving a call from [facility] advising her to follow-up with her feed miller for an EF of ~15% on echocardiogram completed 02/15/2023. Patient was admitted to [facility] last week for chest pressure and shortness [...] --> 16 -->17 - Ma.5 - BNP: 0 (no BNP for comparison) Imaging: - CXR: IMPRESSION: Findings suggestive of hydrostatic pulmonary edema/CHF. Treated with Lasix 20 mg. This morning, she is feeling better. She denies chest pain. Her exertional SOB has improved. No new symptoms. Planning for transfer to [place] for heart cath this afternoon. REVIEW OF [...] instructedDisp: 300 EachRfl: 3 Blood-Glucose Sensor (FREESTYLE LEEANN 3 SENSOR) deviUse new sensor every 14 days to monitor blood glucose.Disp: 6 EachRfl: 3 CPAP/BIPAP/OTHERType .CPAPSettings into a note to see current settings/supplies/DME information.Disp: 1 EachRfl: 0 Insulin [place], Disposable, (BD ULTRA-FINE RUBIA PEN NEEDLE) 32 gauge x 5/32 ndleBD Ultra-Fine Rubia Pen Needle 32 gauge x 5/32 Disp: Rfl: fluticasone (FLONASE) 50 mcg/actua (more content not included)... Normal [facility] Comprehensive metabolic 2000 panelon 02-17-2023 Albumin [Mass/Vol] 3.7 g/dL Low 3.9-4.9 [facility] lucero Comment on above: Order Comment: Speci men Type: BLOOD SPECIMEN Ordering Facility: [facility] Address: [address] [place] [address] Performed By: #### 1 9123-9, #### [facility] CLIA [id number] [address] [place] [address] [place] ALP [Catalytic activity/Vol] 88 U/L Normal 34-123 [facility] Comment on above: Order Comment: Speci men Type: BLOOD SPECIMEN Ordering Facility: [facility] Address: [address] [place] [address] Performed By: #### 1 23-9, 07765-9 #### [facility] CLIA [id number] [address] [place] [address] [place] ALT [Catalytic activity/Vol] 10 U/L Normal 7-38 [facility] Comment on above: Order Comment: Speci men Type: BLOOD SPECIMEN Ordering Facility: [facility] Address: [address] [place] [address] Performed By: #### 1 239, #### [facility] CLIA [id number] [address] [place] [address] [place] Anion gap [Moles/Vol] 11 mmol/L Normal 9-18 [facility] Comment on above: Order Comment: Speci men Type: BLOOD SPECIMEN Ordering Facility: [facility] Address: [address] [place] [address] Performed By: #### 1 9, #### [facility] CLIA [id number] [address] [place] [address] [place] AST [Catalytic activity/Vol] 16 U/L Normal 13-35 [facility] Comment on above: Order Comment: Speci men Type: BLOOD SPECIMEN Ordering Facility: [facility] Address: [address] [place] [address] Performed By: #### 1 239, #### [facility] CLIA [id number] [address] [place] [address] [place] Bilirubin [Mass/Vol] 1.2 mg/dL Normal 0.2-1.3 [facility] Comment on above: Order Comment: Speci men Type: BLOOD SPECIMEN Ordering Facility: [facility] Address: [address] [place] [address] Performed By: #### 1 239, #### [facility] CLIA [id number] [address] [place] [address] [place] Calcium [Mass/Vol] 8.4 mg/dL Low 8.5-10.2 [facility] Comment on above: Order Comment: Speci men Type: BLOOD SPECIMEN Ordering Facility: [facility] Address: [address] [place] [address] Performed By: #### 1 23-9, #### [facility] CLIA [id number] [address] [place] [address] [place] Chloride [Moles/Vol] 101 mmol/L Normal 97-105 [facility] Comment on above: Order Comment: [place] men Type: BLOOD SPECIMEN Ordering Facility: [facility] Address: [address] [place] [address] Performed By: #### 1 9123-9, #### [facility] CLIA [id number] [address] [place] [address] [place] CO2 [Moles/Vol] 29 mmol/L Normal 22-30 [facility] Comment on above: Order Comment: Speci men Type: BLOOD SPECIMEN Ordering Facility: [facility] Address: [address] [place] [address] Performed By: #### 1 9123-9, #### [facility] CLIA [id number] [place] [address] [place] Creatinine [Mass/Vol] 0.92 mg/dL Normal 0.58-0.96 [facility] Comment on above: Order Comment: Speci men Type: BLOOD SPECIMEN Ordering Facility: [facility] Address: [address] [place] [address] Performed By: #### 1 9123-9, #### [facility] CLIA [id number] [address] [place] [address] [facility] Creatinine and Glomerular filtration rate.predicted panel (S/P/Bld) 65 mL/min/1.73m??? Normal >=60 [facility] Comment on above: Order Comment: Speci men Type: BLOOD SPECIMEN Ordering Facility: [facility] Address: [address] [place] [address] Result Comment: Tanisha mated Glomerular Filtration Rate [...] accurately reflect actual GFR. Performed By: #### 1 9123-9, #### [facility] CLIA [id number] [address] [place] [address] [place] Glucose [Mass/Vol] 113 mg/dL High 74-99 [facility] Comment on above: Order Comment: Speci men Type: BLOOD SPECIMEN Ordering Facility: [facility] Address: [address] [place] [address] Result Comment: The [place] Diabetes Association (ADA) provides guidance for cutoff [...] Standards of Medical Care in Diabetes 2016, [place] [employer]. Diabetes Care. 2016.39(Suppl 1). Performed By: #### 1 9123-9, #### [facility] CLIA [id number] [address] [place] [address] [place] Potassium [Moles/Vol] 3.9 mmol/L Normal 3.7-5.1 [facility] Comment on above: Order Comment: Speci men Type: BLOOD SPECIMEN Ordering Facility: [facility] Address: [address] [place] [address] Performed By: #### 1 9123-9, #### [facility] CLIA [id number] [address] [place] [address] [place] Protein [Mass/Vol] 6.2 g/dL Low 6.3-8.0 [facility] Comment on above: Order Comment: Speci men Type: BLOOD SPECIMEN Ordering Facility: [facility] Address: [address] [place] [address] Performed By: #### 1 9123-9, #### [facility] CLIA [id number] [address] [place] [address] [place] [facility] Sodium [Moles/Vol] 141 mmol/L Normal 136-144 [facility] Comment on above: Order Comment: Speci men Type: BLOOD SPECIMEN Ordering Facility: [facility] Address: [address] [place] [address] Performed By: #### 1 9123-9, 87675-6 #### [facility] CLIA [id number] [address] [place] [address] [place] Urea nitrogen [Mass/Vol] 25 mg/dL High 7-21 [facility] Comment on above: Order Comment: Speci men Type: BLOOD SPECIMEN Ordering Facility: [facility] Address: [address] [place] [id number] Performed By: #### 1 9123-9, 53994-7 #### [facility] CLIA [id number] [address] [place] [id number] [place] ECG COMPLETEon 02-17-2023 ECG COMPLETE Ventricular Rate : 8 9 BPM Atrial Rate : 89 BPM P-R Interval : 175 ms QRS Duration : 173 ms Q-T Interval : 469 ms QTC Calculation(Bazett) : 571 ms Calculated P [place] : 45 degrees Calculated R [place] : -65 degrees Calculated T [place] : 82 degrees Sinus rhythm Left bundle branch block Abnormal ECG Confirmed by DAYTON CARSON MD ([id number]) on 03/05/2023 1:39:12 PM NAME : ARLETH ELIAS PID : [id number] : 1945 Gender : Female Race : ORD : [id number] Procedure Date : Feb 17 2023 19:12:10 Edit Date : Mar 05 2023 13:39:14 Diagnosis: Sinus rhythm Left bundle branch block Abnormal ECG Confirmed by DAYTON CARSON MD ([id number]) on 03/05/2023 1:39:12 PM Test Reason : Chest Pain Location : 400 : FVEKG 3P31 Overread By : DAYTON CARSON MD Edited By : DAYTON CARSON MD Referred By : , Acquired by : GABY CORONA [facility] ECG COMPLETE Ventricular Rate : 8 3 BPM Atrial Rate : 83 BPM P-R Interval : 176 ms QRS Duration : 174 ms Q-T Interval : 472 ms QTC Calculation(Bazett) : 555 ms Calculated P [place] : 46 degrees Calculated R [place] : -69 degrees Calculated T [place] : 77 degrees Sinus rhythm Probable left atrial enlargement abnormal R wave progression, late transition Left bundle branch block Abnormal ECG Confirmed by DAYTON CARSON MD ([id number]) on 03/05/2023 4:23:31 PM NAME : ARLETH ELIAS PID : [id number] : 1945 Gender : Female Race : ORD : [id number] Procedure Date : Feb 17 2023 16:50:19 Edit Date : Mar 05 2023 16:23:32 Diagnosis: Sinus rhythm Probable left atrial enlargement abnormal R wave progression, late transition Left bundle branch block Abnormal ECG Confirmed by DAYTON CARSON MD ([id number]) on 03/05/2023 4:23:31 PM Test Reason : Chest Pain Location : 400 : EK 3P31 Overread By : DAYTON CARSON MD Edited By : DAYTON CARSON MD Referred By : , Acquired by : GABY CORONA [facility] HISTORY PHYSICALon 3 HISTORY PHYSICAL HNO ID: [id number] Author: Mahsa Christensen MD Service: Cardiovascular Medicine Author Type: Physician Type: HANDP Filed: 02/17/2023 2:43 PM Note Text: HANDP PRE-CARDIAC CATHETERIZATION SERVICE DATE: 02/17/2023 PRIMARY CARE PHYSICIAN: Radha Little, INTERNET MANAGER, INTERNET MANAGER SUBJECTIVE: CHIEF COMPLAINT: HPI: This is a [...] injection (DEFINITY), , INTRAVENOUS, DIRECTED PRN, Chalo Patel, DO sodium chloride 0.9 % (flush) 10 mL (BD POSIFLUSH), 10 mL, INTRAVENOUS, DIRECTED PRN, Chalo Patel, DO insulin detemir U-100 (LEVEMIR) 100 unit/mL (3 [...] 300 Each, Rfl: 3 Blood-Glucose Sensor (FREESTYLE LEEANN 3 SENSOR) mauricio, Use new sensor every 14 days to monitor blood glucose., Disp: 6 Each, Rfl: 3 CPAP/BIPAP/OTHER, Type .CPAPSettings into a note to see current settings/supplies/DME information., Disp: 1 Each, Rfl: 0 Insulin [place], Disposable, (BD ULTRA-FINE RUBIA PEN NEEDLE) 32 [...] to a (more content not included)... Normal [facility] Magnesium [Mass/Vol] 2.5 mg/dL High 1.7-2.3 [facility] Comment on above: Order Comment: Speci men Type: BLOOD SPECIMEN Ordering Facility: [facility] Address: [address], [place] [address] Performed By: #### 1 9123-9, 40529-1 #### [facility] CLIA [id number] [address] [place] [address] [facility] [place] NURSING PROGon 02-17-2023 NURSING PROG HNO ID: [id number] Author: Christel Newman, MYA Service: ? Author Type: Registered Nurse Type: Nursing Progress Note Filed: 02/17/2023 7:57 PM Note Text: 1630 Patient arrived to CPPU from ammunition assembly laborer. TR band noted. No complaint of pain or discomfort. NSR on tele. Call light within reach. Patient reminded and encouraged to call for assistance as needed. 1720 Dr Christensen at bedside to speak with patient and spouse. 1840 TR band deflate initiated. 2cc of air removed. 1910 Patient with complaints of chest tightness. Stat EKG ordered. Dr Christensen notified. 1930 Patient with complaint of shortness of breath. Lung sounds CTA. 97% on RA. Dr Christensen notified. 1950 Order for one time IV dose Lasix placed. Normal [facility] OPERATIVE NOon 02-17-2023 OPERATIVE NO HNO ID: [id number] Author: Mahsa Christensen MD Service: Cardiovascular Medicine Author Type: Physician Type: Operative Report Filed: 02/17/2023 5:13 PM Note Text: LITHOGRAPHIC CAMERA OPERATOR PROCEDURE REPORT SERVICE DATE: 02/17/2023 MANAGER ORDER: Mahsa Christensen MD ATTENDING: Mahsa Christensen MD PRIMARY CARE PHYSICIAN: Radha Little INTERNET MANAGER, INTERNET MANAGER REFERRING PROVIDER: Chalo Patel MD [employer] HEALTH and AGING SCALE:3=Managing Well CARDIOVASCULAR INSTABILITY:No PRE-PROCEDURE DIAGNOSIS: LV Dysfunction Non-STEMI POST PROCEDURE DIAGNOSIS: [place] Coronary Artery Disease in the LAD (Severe) [...] The patient was taken to the cardiac ammunition assembly laborer where the entry site was prepped and [...] Here. COMPLICATIONS: (more content not included)... Normal [facility] CBC W Auto Differential pane l (Bld)on 02-16-2023 Basophils (Bld) [#/Vol] 0.05 10*3/uL Normal <0.11 [facility] Comment on above: Order Comment: [place] andrew Type: BLOOD SPECIMEN Ordering Facility: [facility] Address: [address] [place] [address] Performed By: #### 5 7021-8 #### [facility] CLIA [id number] [address] [place] [address] [place] Basophils/100 WBC (Bld) 0.5 % Normal [facility] Comment on above: Order Comment: [place] andrew Type: BLOOD SPECIMEN Ordering Facility: [facility] Address: [address] [place] [address] Performed By: #### 5 7021-8 #### [facility] IA [id number] [address] [place] [address] [place] Differential cell count method Nom (Bld) Auto Normal [facility] Comment on above: Order Comment: Speci men Type: BLOOD SPECIMEN Ordering Facility: [facility] Address: [address] [place] [address] Performed By: #### 5 7021-8 #### [facility] IA [id number] [address] [place] [address] [place] Eosinophils (Bld) [#/Vol] 0.06 10*3/uL Normal <0.46 [facility] Comment on above: Order Comment: Speci men Type: BLOOD SPECIMEN Ordering Facility: [facility] Address: [address] [place] [address] Performed By: #### 5 7021-8 #### [facility] IA [id number] [address] [place] [address] [place] Eosinophils/100 WBC (Bld) 0.5 % Normal [facility] Comment on above: Order Comment: Speci men Type: BLOOD SPECIMEN Ordering Facility: [facility] Address: [address] [place] [address] Performed By: #### 5 7021-8 #### [facility] IA [id number] [address] [place] Erythrocyte distribution width (RBC) [Ratio] 16.5 % High 11.5-15.0 [facility] Comment on above: Order Comment: Speci men Type: BLOOD SPECIMEN Ordering Facility: [facility] Address: [address] [place] [address] Performed By: #### 5 7021-8 #### [facility] IA [id number] [address] [place] Hematocrit (Bld) [Volume fraction] 38.1 % Normal 36.0-46.0 [facility] Comment on above: Order Comment: Speci men Type: BLOOD SPECIMEN Ordering Facility: [facility] Address: [address] [place] [address] Performed By: #### 5 7021-8 #### [facility] IA [id number] [address] [place] [address] [place] Hemoglobin (Bld) [Mass/Vol] 12.2 g/dL Normal 11.5-15.5 [facility] Comment on above: Order Comment: Speci men Type: BLOOD SPECIMEN Ordering Facility: [facility] Address: [address] [place] [address] Performed By: #### 5 7021-8 #### [facility] IA [id number] [address] [place] [address] [place] Immature granulocytes (Bld) [#/Vol] 0.04 10*3/uL Normal <0.10 [facility] Comment on above: Order Comment: Speci men Type: BLOOD SPECIMEN Ordering Facility: [facility] Address: [address] [place] [address] Performed By: #### 5 7021-8 #### [facility] IA [id number] [address] [place] [address] [place] Immature granulocytes/100 WBC (Bld) 0.4 % Normal [facility] Comment on above: Order Comment: Speci men Type: BLOOD SPECIMEN Ordering Facility: [facility] Address: [address] [place] [address] Performed By: #### 5 7021-8 #### [facility] IA [id number] [address] [place] [address] [place] Lymphocytes (Bld) [#/Vol] 2.82 10*3/uL Normal 1.00-4.00 [facility] Comment on above: Order Comment: Speci men Type: BLOOD SPECIMEN Ordering Facility: [facility] Address: [address] [place] [address] Performed By: #### 5 7021-8 #### [facility] IA [id number] [address] [place] [address] [place] Lymphocytes/100 WBC (Bld) 25.5 % Normal [facility] Comment on above: Order Comment: Speci men Type: BLOOD SPECIMEN Ordering Facility: [facility] Address: [address] [place] [address] Performed By: #### 5 7021-8 #### [facility] IA [id number] [id number] [place] MCH (RBC) [Entitic mass] 27.6 pg Normal 26.0-34.0 [facility] Comment on above: Order Comment: Speci men Type: BLOOD SPECIMEN Ordering Facility: [facility] Address: [address] [place] [address] Performed By: #### 5 7021-8 #### [facility] [place] [id number] [address] [place] [address] STATES [place] MCHC (RBC) [Mass/Vol] 32.0 g/dL Normal 30.5-36.0 [facility] Comment on above: Order Comment: Speci men Type: BLOOD SPECIMEN Ordering Facility: [facility] Address: [address] [place] [address] Performed By: #### 5 7021-8 #### [facility] IA [id number] [address] [place] [address] [place] MCV (RBC) [Entitic vol] 86.2 fL Normal 80.0-100.0 [facility] Comment on above: Order Comment: Speci men Type: BLOOD SPECIMEN Ordering Facility: [facility] Address: [address] [place] [address] Performed By: #### 5 7021-8 #### [facility] IA [id number] [address] [place] [address] OF [place] Monocytes (Bld) [#/Vol] 0.97 10*3/uL High <0.87 [facility] Comment on above: Order Comment: Speci men Type: BLOOD SPECIMEN Ordering Facility: [facility] Address: [address] [place] [address] Performed By: #### 5 7021-8 #### [facility] IA [id number] [address] [place] [address] [place] Monocytes/100 WBC (Bld) 8.8 % Normal [facility] Comment on above: Order Comment: Speci men Type: BLOOD SPECIMEN Ordering Facility: [facility] Address: [address] [place] [address] Performed By: #### 5 7021-8 #### [facility] CLIA [id number] [address] [place] [address] [place] Neutrophils (Bld) [#/Vol] 7.12 10*3/uL Normal 1.45-7.50 [facility] Comment on above: Order Comment: Speci men Type: BLOOD SPECIMEN Ordering Facility: [facility] Address: [address] [place] [address] Performed By: #### 5 7021-8 #### [facility] CLIA [id number] [address] [place] [address] [place] Neutrophils/100 WBC (Bld) 64.3 % Normal [facility] Comment on above: Order Comment: Speci men Type: BLOOD SPECIMEN Ordering Facility: [facility] Address: [address] [place] [address] Performed By: #### 5 7021-8 #### [facility] CLIA [id number] [address] [place] [address] [place] Nucleated RBC (Bld) [#/Vol] 10*3/uL Normal <0.01 [facility] Comment on above: Order Comment: Speci men Type: BLOOD SPECIMEN Ordering Facility: [facility] Address: [address] [place] [address] Performed By: #### 5 7021-8 #### [facility] CLIA [id number] [address] [place] [address] [place] Nucleated RBC/100 WBC (Bld) [Ratio] 0.0 /100 WBC Normal [facility] Comment on above: Order Comment: Speci men Type: BLOOD SPECIMEN Ordering Facility: [facility] Address: [address] [place] [address] Performed By: #### 5 7021-8 #### [facility] CLIA [id number] [address] [place] [address] [place] Platelet mean volume (Bld) [Entitic vol] 10.1 fL Normal 9.0-12.7 [facility] Comment on above: Order Comment: Gissellei lorrie Type: BLOOD SPECIMEN Ordering Facility: [facility] Address: [address] [place] [address] Performed By: #### 5 7021-8 #### [facility] CLIA [id number] [address] [place] [address] [place] Platelets (Bld) [#/Vol] 177 10*3/uL Normal 150-400 [facility] Comment on above: Order Comment: Speci men Type: BLOOD SPECIMEN Ordering Facility: [facility] Address: [address] [place] [address] Performed By: #### 5 7021-8 #### [facility] IA [id number] [address] [place] [address] [place] RBC (Bld) [#/Vol] 4.42 10*6/uL Normal 3.90-5.20 [facility] Comment on above: Order Comment: Speci men Type: BLOOD SPECIMEN Ordering Facility: [facility] Address: [address] [place] [address] Performed By: #### 5 7021-8 #### [facility] IA [id number] [address] OF [place] WBC (Bld) [#/Vol] 11.06 10*3/uL High 3.70-11.00 [facility] Comment on above: Order Comment: Speci men Type: BLOOD SPECIMEN Ordering Facility: [facility] Address: [address] [place] [address] Performed By: #### 5 7021-8 #### [facility] IA [id number] [address] [place] [id number] [facility] Vianney 02-16-2023 RUPA Telephone (MEPRAD) ARLETH ELIAS ([id number]) 1945 F Date Time Provider Department 02/16/23 PRADIP BEE During your visit today, we recorded the following information about you: Pradip Bee, DO 02/16/2023 4:20 PM Signed Arleth Elias cc: CHF, likely needs heart cath 77 yo F hx of CHF, CAD, HTN, PVD, DM was in [facility] over the weekend for chest pain and [...] Assessed Reason for Visit: Hospital To Hospital [[id number]] Prescriptions as of 02/16/2023 - blood sugar diagnostic (BLOOD GLUCOSE TEST) test strip Use as instructed to monitor glucose. One touch ultra verio test strips. - Lancets lancets Use as instructed - insulin detemir U-100 (LEVEMIR) 100 unit/mL (3 mL) injection pen Inject 28 Units subcutaneously daily at bedtime. - Blood-Glucose Sensor (FREESTYLE LEEANN 3 SENSOR) mauricio Use new sensor every [...] tablet by mouth twice daily. - Insulin [place], Disposable, (BD ULTRA-FINE RUBIA PEN NEEDLE) 32 [...] Encounter Status:Closed by PRADIP BEE on 02/16/23 Normal [facility] Comprehensive metabolic 2000 panelon 02-16-2023 Albumin [Mass/Vol] 4.0 g/dL Normal 3.9-4.9 [facility]er Comment on above: Order Comment: Speci men Type: BLOOD SPECIMENOrdering Facility: [facility] Address: [address] [place] [address] Performed By: #### 2 4323-8, 37283-6, 40129-6, 3016-3 ####[facility] [id number] [place] [address] [place] ALP [Catalytic activity/Vol] 97 U/L Normal 34-123 [facility] Comment on above: Order Comment: Speci men Type: BLOOD SPECIMENOrdering Facility: [facility] Address: [address] [place] [address] Performed By: #### 2 4323-8, 71971-3, 65462-0, 6-3 ####[facility] [id number] [place] [address] [place] ALT [Catalytic activity/Vol] 11 U/L Normal 7-38 [facility] Comment on above: Order Comment: Speci men Type: BLOOD SPECIMENOrdering Facility: [facility] Address: [address] [place] [address] Performed By: #### 2 4323-8, 96379-7, 90599-2, 6-3 ####[facility] [id number] [place] [address] [place] Anion gap [Moles/Vol] 14 mmol/L Normal 9-18 [facility] Comment on above: Order Comment: Speci men Type: BLOOD SPECIMENOrdering Facility: [facility] Address: [address] [place] [address] Performed By: #### 2 4323-8, 77569-4, 47011-5, 6-3 ####[facility] [id number] [place] [address] [place] AST [Catalytic activity/Vol] 18 U/L Normal 13-35 [facility] Comment on above: Order Comment: Speci men Type: BLOOD SPECIMENOrdering Facility: [facility] Address: [address] [place] [address] Performed By: #### 2 4323-8, 34786-1, 34079-2, 3 ####[facility] [id number] [place] [address] [place] Bilirubin [Mass/Vol] 1.6 mg/dL High 0.2-1.3 [facility] Comment on above: Order Comment: Speci men Type: BLOOD SPECIMENOrdering Facility: [facility] Address: [address] [place] [address] Performed By: #### 2 4323-8, 97370-3, , 3015-06 ####[facility] [id number] [place] [address] [place] Calcium [Mass/Vol] 8.4 mg/dL Low 8.5-10.2 [facility] Comment on above: Order Comment: Speci men Type: BLOOD SPECIMENOrdering Facility: [facility] Address: [address] [place] [address] Performed By: #### 2 4323-8, 48030-0, , 3015-06 ####[facility] [id number] [place] [address] [place] Chloride [Moles/Vol] 100 mmol/L Normal 97-105 [facility] Comment on above: Order Comment: Speci men Type: BLOOD SPECIMENOrdering Facility: [facility] Address: [address] [place] [address] Performed By: #### 2 4323-8, 09511-9, , 3 ####[facility] [id number] [place] [address] [place] CO2 [Moles/Vol] 24 mmol/L Normal 22-30 [facility] Comment on above: Order Comment: Speci men Type: BLOOD SPECIMENOrdering Facility: [facility] Address: [address] [place] [id number] Performed By: #### 2 4323-8, 16419-8, 00477-6, 6-3 ####[facility] [id number] [place] [address] [place] Creatinine [Mass/Vol] 0.85 mg/dL Normal 0.58-0.96 [facility] Comment on above: Order Comment: Speci men Type: BLOOD SPECIMENOrdering Facility: [facility] Address: [address] [place] [address] Performed By: #### 2 4323-8, 88438-3, 44267-0, 6-3 ####[facility] LABORATORYIA [id number] [place] [address] [place] Creatinine and Glomerular filtration rate.predicted panel (S/P/Bld) 71 mL/min/1.73m??? Normal >=60 [facility] Comment on above: Order Comment: [facility] Type: BLOOD SPECIMENOrdering Facility: [facility] Address: [address] [place] [address] Result Comment: Tanisha mated Glomerular Filtration Rate [...] actual GFR. Performed By: #### 2 4323-8, 30211-4, 51612-9, 6-3 ####[facility]ORATORYCLIA [id number] [place] [address] [place] Glucose [Mass/Vol] 144 mg/dL High 74-99 [facility] Comment on above: Order Comment: [facility] Type: BLOOD SPECIMENOrdering Facility: [facility] Address: [address] [place] [address] Result Comment: The [place] Diabetes Association (ADA) provides guidance for cutoff [...] Standards of Medical Care in Diabetes 2016, [place] Diabetes Association. Diabetes Care. 2016.39(Suppl 1). Performed By: #### 2 4323-8, 29694-1, 43346-7, 6-3 ####[facility] LABORATORYCLIA [id number] [place] [address] [place] Potassium [Moles/Vol] 3.7 mmol/L Normal 3.7-5.1 [facility] Comment on above: Order Comment: Speci men Type: BLOOD SPECIMENOrdering Facility: [facility] Address: [address] [place] [address] Performed By: #### 2 4323-8, 36129-7, 90196-7, 6-3 ####[facility] [id number] [place] [address] [place] Protein [Mass/Vol] 6.8 g/dL Normal 6.3-8.0 [facility] Comment on above: Order Comment: Speci men Type: BLOOD SPECIMENOrdering Facility: [facility] Address: [address] [place] [address] Performed By: #### 2 4323-8, 75368-1, 31248-3, 6-3 ####[facility] [id number] [place] [address] [place] Sodium [Moles/Vol] 138 mmol/L Normal 136-144 [facility] Comment on above: Order Comment: Speci men Type: BLOOD SPECIMENOrdering Facility: [facility] Address: [address] [place] [address] Performed By: #### 2 4323-8, 00397-8, 08762-9, 6-3 ####[facility] LABORATORYCLIA [id number] [place] [address] [place] [facility] Urea nitrogen [Mass/Vol] 28 mg/dL High - [facility] Comment on above: Order Comment: Speci men Type: BLOOD SPECIMENOrdering Facility: [facility] Address: Formerly named [facility] [address] [place] [id number] Performed By: #### 2 4323-8, 62012-4, 94322-2, 6-3 ####[facility]ATORYCLIA [id number] [place] [address] [facility] ECG COMPLETEon 02-16-2023 ECG COMPLETE Ventricular Rate : 9 3 BPM Atrial Rate : 93 BPM P-R Interval : 164 ms QRS Duration : 154 ms Q-T Interval : 434 ms QTC Calculation(Bazett) : 539 ms Calculated P [place] : 51 degrees Calculated R [place] : -157 degrees Calculated T [place] : 56 degrees Normal sinus rhythm Nonspecific intraventricular block - wide compared to prior Possible Lateral infarct , age undetermined Abnormal ECG Confirmed by DO GOLDBERG JENNIFER ([id number]), editor trade journal ANGIE TAM ([id number]) on 02/17/2023 7:15:25 AM NAME : ARLETH ELIAS PID : [id number] : 1945 Gender : Female Race : ORD : [id number] Procedure Date : Feb 16 2023 12:28:05 Edit Date : Feb 17 2023 07:15:31 Diagnosis: Normal sinus rhythm Nonspecific intraventricular block - wide compared to prior Possible Lateral infarct , age undetermined Abnormal ECG Confirmed by DO GOLDBERG JENNIFER ([id number]), editor trade journal ANGIE TAM ([id number]) on 02/17/2023 7:15:25 AM Test Reason : Chest Pain Location : 302 : ED ED Overread By : DO GOLDBERG JENNIFER Edited By : ANGIE TAM Referred By : , Acquired by : [id number], Normal [facility] ED NOTEon 02-16-2023 ED NOTE HNO ID: [id number] Author: Medina Machado RN Service: ? Author Type: Registered Nurse Type: ED Notes Filed: 02/16/2023 6:31 PM Note Text: Patient given gracia box [facility] ED NOTE HNO ID: [id number] Author: Medina Machado RN Service: ? Author Type: Registered Nurse Type: ED Notes Filed: 02/16/2023 2:10 PM Note Text: Patient desating in high 80's/low 90's, placed on 2L NC [facility] ED NOTE HNO ID: [id number] Author: Medina Machado RN Service: ? Author Type: Registered Nurse Type: ED Notes Filed: 02/16/2023 2:09 PM Note Text: Patient wheeled to the restroom [facility] ED NOTE HNO ID: [id number] Author: Medina Machado RN Service: ? Author Type: Registered Nurse Type: ED Notes Filed: 02/16/2023 12:55 PM Note Text: Patient reports to the ED with c/o SOB. Patient states she was d/c'd from [place] yesterday for CHF and they sent her here for an ejection fraction of 15-20%. Patient denies CP. SOB. [facility] ED PROV NOTEon 02-16-2023 ED PROV NOTE HNO ID: [id number] Author: Nichelle Goldberg DO Service: Emergency Medicine Author Type: Physician Type: ED Provider Notes Filed: 02/16/2023 8:38 PM Note Text: ED Provider Note Patient Name: Arleth Elias : 1945 SERVICE DATE: 02/16/23 History Patient presents with: Shortness of Breath: +SOB. Recently admitted to hospital for CHF in [place], sts was d/c'd yesterday and called today that her EF on echo was 15-20%. Pt's feed miller is Dr. Patel through [facility]. 77-year-old female presents with concern for shortness [...] and she needed to report to her feed miller. Patient denies any current chest pressure. Patient [...] 16.5 (*) 11.5 - 15.0 % Abs Lane 0.97 (*) <0.87 k/uL All other components [...] Impression ED Course as of 02/16/232036 Nichelle Goldberg's Documentation Tue No (more content not included)... Normal [facility] HIGH SENSITIVITY TROPONIN T (INITIAL)on 02-16-2023 Troponin T.cardiac High sensitivity method [Mass/Vol] 16 ng/L High <12 [facility] Comment on above: Order Comment: Speci men Type: BLOOD SPECIMENOrdering Facility: [facility] Address: [address] [place] [address] Result Comment: When assessing risk for acute [...] 30 day MACE. Performed By: #### L [id number] ####[facility] LABORATORYCLIA [id number] [place] [address] [place] HIGH SENSITIVITY TROPONIN T (SECOND)on 02-16-2023 Troponin T.cardiac High sensitivity method [Mass/Vol] 16 ng/L High <12 [facility] Comment on above: Order Comment: [place] [facility] Type: BLOOD SPECIMEN [facility] Address: [address] [place] [address] Result Comment: When assessing risk for acute [...] 30 day MACE. Performed By: #### L [id number] #### [facility] CLIA [id number] [place] [address] [place] HIGH SENSITIVITY TROPONIN T (THIRD) 3 HRS AFTER INITIALon 02-16-2023 Troponin T.cardiac High sensitivity method [Mass/Vol] 17 ng/L High <12 [facility] Comment on above: Order Comment: [place] [facility] Type: BLOOD SPECIMENOrdering Facility: [facility] Address: [address] [place] [address] Result Comment: When assessing risk for acute [...] 30 day MACE. Performed By: #### L [id number] ####[facility]ORATORYCLIA [id number] [place] [address] [place] HISTORY PHYSICALon HISTORY PHYSICAL HNO ID: [id number] Author: Nichelle Rubio APRN.CNP Service: Hospital Medicine Author Type: Nurse Practitioner Type: HANDP Filed: 02/16/2023 11:30 PM Note Text: DEPARTMENT OF HOSPITAL MEDICINE HISTORY AND PHYSICAL EXAM SERVICE DATE: 02/16/2023 Code Status: Not on file SERVICE TIME: 8:06 PM Primary Care Physician: Radha Little, GUALBERTO, GUALBERTO NIGHT AND WEEKEND COVERAGE: [place] COVERAGE: Days: [phone], please contact via [employer] Nights: [phone] - floor: please page [facility] Hospitalist night cover #[phone] - 4W: please page [facility] Hospitalist night cover #[phone] - 5th floor: please page [facility] Hospitalist night cover #[phone] - SDU (18:00 - 19:00): Please page #[phone] - SDU (19:00 - 07:00): Please call [facility] at [phone] Subjective CHIEF COMPLAINT: Sent by doctor's office for newly found EF of 15%. Discharged from [facility] yesterday. HPI: This is a 77 year old female with a past medical history of chronic systolic heart failure with previously recovered EF 35 --> 61%, 48% in 09/2022, and reportedly ED 15% yesterday from OSH echo, non-obstructive CAD s/p LHC on 06/07/2019 (Dr. Patel) and 06/08/2019 (Dr. Torres, under op report, 50-60% stenosis to mid LAD, RCA and Lcx normal, follows with Dr. Patel), HTN, HLD, PVD s/p right axillobifemoral bypass graft on 01/02/20 for severe abdominal aortic stenosis at level of renal arteries, Type 2 DM, ERASMO, mild carotid atherosclerosis, NSVT, and overweight. Patient presented to the ED after receiving a call from [facility] advising her to follow-up with her feed miller today for an EF of ~15% on echocardiogram completed yesterday. Patient was admitted to [facility] last week. Patient developed chest pressure that [...] occasionally at bedtime. Patient states that at [place] she was treated with steroids. Echocardiogram was [...] case with cardiology. Patient was accepted to [place] with plans to be admitted to [facility] stepdown. Awaiting transfer. PAST MEDICAL HISTORY Diagnosis Date [...] injection (DEFINITY), , INTRAVENOUS, DIRECTED PRN, Chalo Patel, sodium chloride 0.9 % (flush) 10 mL (BD POSIFLUSH), 10 mL, INTRAVENOUS, DIRECTED PRN, Chalo Patel, insulin detemir U-100 (LEVEMIR) 100 unit/mL (3 [...] SEPERATELY FROM DOXYCYCLINE, Disp: 180 tablet, Rfl: 3, 02/16/2023 aspirin, enteric coated (ASPIRIN, ENTERIC COATED) 81 mg EC tablet, Take 81 mg by mouth once daily., Disp: , Rfl: , 02/15/2023 rosuvastatin (CRESTOR) 40 mg tablet, Take 1 tablet by mouth daily at bedtime., Disp: 90 tablet, Rfl: 3, 02/15/2023 carvedilol (COREG) 25 mg tablet, Take 1 tablet by mouth twice daily., Disp: 180 tablet, (more content not included)... Normal [facility] Magnesium [facility] 02-16 Magnesium [Mass/Vol] 2.5 mg/dL High 1.7-2.3 [facility] Comment on above: Order Comment: Speci men Type: BLOOD SPECIMENOrdering Facility: [facility] Address: [address] [place] [address] Performed By: #### 2 4323-8, 40331-6, 77687-4, 3016-3 ####[facility]ORATORYCLIA [id number] [place] [address] [place] NT-proBNP [facility] 02-16 Natriuretic peptide.B prohormone N-Terminal [Mass/Vol] 2090 pg/mL High <450 [facility] Comment on above: Order Comment: Speci men Type: BLOOD SPECIMENOrdering Facility: [facility] Address: [address] [id number] Performed By: #### 2 4323-8, 79652-7, 79405-0, 3016-3 ####[facility] [id number] [place] [address] [facility] THERAPY NTon 02-16-2023 THERAPY NT HNO ID: [id number] Author: Amira Zhao RRT Service: Respiratory Therapy Author Type: Registered Resp Therapist Type: Therapy (PT/OT/Speech/Resp) Filed: 02/16/2023 11:52 PM Note Text: Pt is declining cpap, states she doesn't wear one at home. Normal [facility] TSH SerPl-aCncon 02-16-2023 TSH Qn 4.300 m[IU]/L High 0.270-4.200 [facility] Comment on above: Order Comment: Speci men Type: BLOOD SPECIMENOrdering Facility: [facility] Address: [address] [place] [id number] Performed By: #### 2 4323-8, 09697-4, 79494-2, 3016-3 ####[facility]ITAL[facility] [id number] [place] [address] [facility] OF [place] XR CHEST 2V FRONTAL/LATon XR CHEST 2V [...] IMPRESSION: Findings suggestive of hydrostatic pulmonary edema/CHF. [employer] Network Architect: PSCB Transcribe Date/Time: Feb 16 2023 1:25P Dictated by : SKY LEGER MD This examination was interpreted and the report reviewed and electronically signed by: SKY LEGER MD on Feb 16 2023 1:31PM EST [id number] Normal [facility] HEMOGLOBIN A1C (POC)on 01-27 HbA1c (Bld) [Mass fraction] 6.4 % 4.2 - 5.6 % [facility] HEMOGLOBIN A1C (POC)on 11-04 HbA1c (Bld) [Mass fraction] 7.5 % Abnormal 4.2 - 5.6 % [facility] CBC W Auto Differential pane l (Bld)on 06-10-2022 Basophils (Bld) [#/Vol] 0.07 10*3/uL <0.11 k/uL [facility] Basophils/100 WBC (Bld) 0.8 % [facility] Differential cell count method Nom (Bld) Auto [facility] Eosinophils (Bld) [#/Vol] 0.17 10*3/uL <0.46 k/uL [facility] Eosinophils/100 WBC (Bld) 1.8 % [facility] Erythrocyte distribution width (RBC) [Ratio] 16.9 % High 11.5 - 15.0 % [facility] Hematocrit (Bld) [Volume fraction] 34.3 % Low 36.0 - 46.0 % [facility] Hemoglobin (Bld) [Mass/Vol] 10.9 g/dL Low 11.5 - 15.5 g/dL [facility] Immature granulocytes (Bld) [#/Vol] <0.10 k/uL [facility] Immature granulocytes/100 WBC (Bld) 0.1 % [facility] Lymphocytes (Bld) [#/Vol] 3.88 10*3/uL 1.00 - 4.00 k/uL [facility] Lymphocytes/100 WBC (Bld) 42.2 % [facility] MCH (RBC) [Entitic mass] 27.7 pg 26.0 - 34.0 pg [facility] MCHC (RBC) [Mass/Vol] 31.8 g/dL 30.5 - 36.0 g/dL [facility] MCV (RBC) [Entitic vol] 87.1 fL 80.0 - 100.0 fL [facility] Monocytes (Bld) [#/Vol] 0.68 10*3/uL <0.87 k/uL [facility] Monocytes/100 WBC (Bld) 7.4 % [facility] Neutrophils (Bld) [#/Vol] 4.38 10*3/uL 1.45 - 7.50 k/uL [facility] Neutrophils/100 WBC (Bld) 47.7 % [facility] Nucleated RBC (Bld) [#/Vol] <0.01 k/uL [facility] Nucleated RBC/100 WBC (Bld) [Ratio] 0.0 /100 WBC [facility] Platelet mean volume (Bld) [Entitic vol] 9.4 fL 9.0 - 12.7 fL [facility] Platelets (Bld) [#/Vol] 194 10*3/uL 150 - 400 k/uL [facility] RBC (Bld) [#/Vol] 3.94 10*6/uL 3.90 - 5.2 0 m/uL [facility] WBC (Bld) [#/Vol] 9.19 10*3/uL 3.70 - 11. 00 k/uL [facility] Comprehensive metabolic 2000 panelon 06-10-2022 Albumin [Mass/Vol] 4.2 g/dL 3.9 - 4.9 g/dL [facility] ALP [Catalytic activity/Vol] 115 U/L 34 - 123 U/L [facility] ALT [Catalytic activity/Vol] 19 U/L 7 - 38 U/L [facility] Anion gap [Moles/Vol] 12 mmol/L 9 - 18 mmol/L [facility] AST [Catalytic activity/Vol] 33 U/L 13 - 35 U/L [facility] Bilirubin [Mass/Vol] 0.7 mg/dL 0.2 - 1 .3 mg/dL [facility] Calcium [Mass/Vol] 9.4 mg/dL 8.5 - 10. 2 mg/dL [facility] Chloride [Moles/Vol] 101 mmol/L 97 - 10 5 mmol/L [facility] CO2 [Moles/Vol] 29 mmol/L 22 - 30 mmol/L [facility] Creatinine [Mass/Vol] 0.73 mg/dL 0.58 - 0.96 mg/dL [facility] Estimated Glomerular Filtration Rate 86 mL/min/1.73m >=60 mL/min/1.73m [facility] Glucose [Mass/Vol] 132 mg/dL High 74 - 99 mg/dL [facility] Potassium [Moles/Vol] 3.7 mmol/L 3.7 - 5.1 mmol/L [facility] Protein [Mass/Vol] 7.2 g/dL 6.3 - 8.0 g/dL [facility] Sodium [Moles/Vol] 142 mmol/L 136 - 144 mmol/L [facility] Urea nitrogen [Mass/Vol] 15 mg/dL 7 - 21 mg/dL [facility] No Panel Informationon 10-07 [facility] ECG COMPLETEon 09-04-2021 Atrial Rate 81 BPM [facility] Calculated P [place] 36 degrees [facility] Calculated R [place] -19 degrees [facility] Calculated T [place] 81 degrees [facility] P-R Interval 166 ms [facility] QRS Duration 96 ms [facility] QT Interval 424 ms [facility] QTC Calculation (Bazett) 492 ms [facility] Ventricular Rate [address] [facility] LYME DISEASE AB EIA W REFLEX on 07-16-2021 Lyme Total Antibody,EIA Negative Normal Negative [facility] Comment on above: Result Comment: Lyme Antibody Negative No laboratory evidence of infection with B. burgdorferi (Lyme disease). Negative results may occur in patients recently infected (greater than or equal to 14 days) with B. burgdorferi. If recent infection is suspected, repeat testing on a new sample collected in 7 to 14 days is recommended. Performed By: #### L YMA #### [facility] [address] [place] [address] Dr. George Gallegos GLYCOHEMOGLOBIN A1Con 2021 ADA RECOMMENDATION ADA THERAPEUTIC TARGET 6.0 - 7.0 ACTION SUGGESTED > 7.0 Normal [facility] Comment on above: Performed By: #### A 1C #### [facility] [address] [address] [address] George Gallegos Glucose [Mass/Vol] 157 mg/dL Normal [facility] Comment on above: Performed By: #### A 1C #### [facility] [address] [address] [address] George Gallegos HbA1c (Bld) [Mass fraction] 7.1 % Critically high <=6.0 [facility] Comment on above: Performed By: #### A 1C #### [facility] [address] [place] [address] Dr. George Gallegos [facility] 2021 SED RATE 15 mm/hr Normal <=30 [facility] Comment on above: Performed By: #### S EDR #### [facility] [address] [place] [address] Dr. George Gallegos GLYCOHEMOGLOBIN A1Con 2020 ADA RECOMMENDATION ADA THERAPEUTIC TARGET 6.0 - 7.0 ACTION SUGGESTED > 7.0 Normal [facility] Comment on above: Performed By: #### A 1C #### [facility] [address] [place] [address] Raoul Knapp Glucose [Mass/Vol] 151 mg/dL Normal [facility] Comment on above: Performed By: #### A 1C #### [facility] [address] [place] [address] Raoul Knapp HbA1c (Bld) [Mass fraction] 6.9 % Critically high <=6.0 [facility] Comment on above: Performed By: #### A 1C #### [facility] [address] [place] [address] Raoul Knapp MICROALBUMIN, RAND URon 06- mALB <1.3 Normal <=30.0 [facility] Comment on above: Performed By: #### M ALBR #### [facility] [address] [place], [place] [address] Raoul Knapp NM CARDIAC PERF STRESS/PHARM on 09-12-2020 [facility] Vital Signs Date Time Vital Sign Value Performing Clinician Alysa salazar 08-02-2024 11:42-0400 Body mass index (BMI) [Ratio] 25.99 kg/m2 Radha Little EMERGING TECHNOLOGIES DIRECTOR Work Phone: [facility] 08-02-2024 11:42-0400 Body temperature 98.29 [degF] Radha Little EMERGING TECHNOLOGIES DIRECTOR Work Phone: [facility] 08-02-2024 11:42-0400 Body weight 73.03 kg Radhalucio Lopezz EMERGING TECHNOLOGIES DIRECTOR Work Phone: [facility] 08-02-2024 11:42-0400 Diastolic blood pressure 68 mm[Hg] Radha Keeleyholz EMERGING TECHNOLOGIES DIRECTOR Work Phone: [facility] 08-02-2024 11:42-0400 Heart rate 88 /min Radha Keeleyholz EMERGING TECHNOLOGIES DIRECTOR Work Phone: [facility] 08-02-2024 11:42-0400 Respiratory rate 18 /min Radha Amyhholz EMERGING TECHNOLOGIES DIRECTOR Work Phone: [facility] 08-02-2024 11:42-0400 SaO2% (BldA) [Mass fraction] 95 % Radha Keeleyholz EMERGING TECHNOLOGIES DIRECTOR Work Phone: [facility] 08-02-2024 11:42-0400 Systolic blood pressure 130 mm[Hg] Radha Amyhholz EMERGING TECHNOLOGIES DIRECTOR Work Phone: [facility] 06-26-2024 14:00-0400 Diastolic blood pressure 82 mm[Hg] Stanley Strange MD Work Phone: [facility] 06-26-2024 14:00-0400 Systolic blood pressure 145 mm[Hg] Stanley Strange MD Work Phone: [facility] 06-26-2024 13:59-0400 Heart rate 82 /min Stanley Strange MD Work Phone: [facility] 06-26-2024 13:56-0400 Body mass index (BMI) [Ratio] 25.37 kg/m2 Stanley Strange MD Work Phone: [facility] 06-26-2024 13:56-0400 Body weight 71.3 kg Stanley Strange MD Work Phone: [facility] 06-26-2024 13:56-0400 SaO2% (BldA) [Mass fraction] 99 % Stanley Strange MD Work Phone: [facility] Comment on above: RA 04-24-2024 09:50-0500 Body mass index (BMI) [Ratio] 24.91 kg/m2 Chalo Patel DO Work Phone: [facility] 04-24-2024 09:50-0500 Body weight 70 kg Chalo Patel DO Work Phone: [facility] 04-24-2024 09:50-0500 Diastolic blood pressure 80 mm[Hg] Chalo Patel DO Work Phone: [facility] 04-24-2024 09:50-0500 Heart rate 72 /min Chalo Patel DO Work Phone: [facility] 04-24-2024 09:50-0500 SaO2% (BldA) [Mass fraction] 100 % Chalo Patel DO Work Phone: [facility] 04-24-2024 09:50-0500 Systolic blood pressure 122 mm[Hg] Chalo Patel DO Work Phone: [facility] 02-28-2024 12:39-0500 Body mass index (BMI) [Ratio] 24.94 kg/m2 Mikel Duber ASPHALT SURFACE HEATER OPERATOR.INTERNET MANAGER Work Phone: [facility] 02-28-2024 12:39-0500 Body weight 70.1 kg Mikel Duber ASPHALT SURFACE HEATER OPERATOR.INTERNET MANAGER Work Phone: [facility] 02-28-2024 12:39-0500 Diastolic blood pressure 65 mm[Hg] Mikel Duber ASPHALT SURFACE HEATER OPERATOR.INTERNET MANAGER Work Phone: [facility] 02-28-2024 12:39-0500 Heart rate 78 /min Mikel Duber ASPHALT SURFACE HEATER OPERATOR.INTERNET MANAGER Work Phone: [facility] 02-28-2024 12:39-0500 Systolic blood pressure 125 mm[Hg] Mikel Duber ASPHALT SURFACE HEATER OPERATOR.INTERNET MANAGER Work Phone: [facility] [facility] 02-16-2024 10:24-0500 Body height 167.6 cm Rocio PORTILLO Work Phone: [place] 295[address]-06-2024 10:24-0500 Body mass index (BMI) [Ratio] 24.21 kg/m2 Rocio PORTILLO Work Phone: [facility] 02-16-2024 10:24-0500 Body weight 68.04 kg Rocio PORTILLO Work Phone: [facility] 12-28-2023 13:15-0400 Diastolic blood pressure 76 mm[Hg] Stanley Strange MD Work Phone: [facility] 12-28-2023 13:15-0400 Heart rate 80 /min Stanley Strange MD Work Phone: [facility] 12-28-2023 13:15-0400 Systolic blood pressure 114 mm[Hg] Stanley Strange MD Work Phone: [facility] 12-28-2023 13:12-0400 Body mass index (BMI) [Ratio] 24.48 kg/m2 Stanley Strange MD Work Phone: [facility] 12-28-2023 13:12-0400 Body weight 68.8 kg Stanley Strange MD Work Phone: [facility] 12-28-2023 13:12-0400 SaO2% (BldA) [Mass fraction] 99 % Stanley Strange MD Work Phone: [facility] Comment on above: 10-21-2023 13:53-0400 Body mass index (BMI) [Ratio] 24.84 kg/m2 Chalo Patel DO Work Phone: [facility] 10-21-2023 13:53-0400 Body weight 69.8 kg Chalo Patel DO Work Phone: [facility] 10-21-2023 13:53-0400 Diastolic blood pressure 60 mm[Hg] Chalo aPtel DO Work Phone: [facility] 10-21-2023 13:53-0400 Heart rate 83 /min Chalo Patel DO Work Phone: [facility] 10-21-2023 13:53-0400 SaO2% (BldA) [Mass fraction] 99 % Chalo Patel DO Work Phone: [facility] 10-21-2023 13:53-0400 Systolic blood pressure 125 mm[Hg] Chalo Patel DO Work Phone: [facility] 10-11-2023 14:15-0400 Body height 167.6 cm Concha Paris MD Work Phone: [facility] 10-11-2023 14:15-0400 Body mass index (BMI) [Ratio] 24.91 kg/m2 Concha Paris MD Work Phone: [facility] 10-11-2023 14:15-0400 Body weight 70 kg Concha Paris MD Work Phone: [facility] 10-11-2023 14:15-0400 Diastolic blood pressure 76 mm[Hg] Concha Paris MD Work Phone: [facility] 10-11-2023 14:15-0400 Heart rate 81 /min Concha Paris MD Work Phone: [facility] 10-11-2023 14:15-0400 Systolic blood pressure 120 mm[Hg] Concha Paris MD Work Phone: [facility] 10-07-2023 12:24-0400 Body height 167.6 cm Gilles Cormier MD Work Phone: [facility] 10-07-2023 12:24-0400 Body mass index (BMI) [Ratio] 24.69 kg/m2 Gilles oCrmier MD Work Phone: [facility] 10-07-2023 12:24-0400 Body weight 69.4 kg Gilles Cormier MD Work Phone: [facility] 10-07-2023 12:24-0400 Diastolic blood pressure 80 mm[Hg] Gilles Cormier MD Work Phone: [facility] 10-07-2023 12:24-0400 Heart rate 75 /min Gilles Cormier MD Work Phone: [facility] 10-07-2023 12:24-0400 Systolic blood pressure 142 mm[Hg] Gilles Cormier MD Work Phone: [facility] 07-27-2023 13:26-0400 Diastolic blood pressure 77 mm[Hg] Stanley Strange MD Work Phone: [facility] 07-27-2023 13:26-0400 Heart rate 86 /min Stanley Strange MD Work Phone: [facility] 07-27-2023 13:26-0400 Systolic blood pressure 114 mm[Hg] Stanley Strange MD Work Phone: [facility] 07-27-2023 13:21-0400 Body weight 70.35 kg Stanley Strange MD Work Phone: [facility] 07-27-2023 13:21-0400 SaO2% (BldA) [Mass fraction] 96 % Stanley Strange MD Work Phone: [facility] 07-15-2023 13:20-0400 Body height 167.6 cm Niraj Cheng PA-C Work Phone: [facility] 07-15-2023 13:20-0400 Body weight 70.8 kg Niraj Cheng PA-C Work Phone: [facility] 07-15-2023 13:20-0400 Diastolic blood pressure 78 mm[Hg] Niraj Cheng PA-C Work Phone: [facility] 07-15-2023 13:20-0400 Heart rate 80 /min Niraj Cheng PA-C Work Phone: [facility] 07-15-2023 13:20-0400 Systolic blood pressure 138 mm[Hg] Niraj Cheng PA-C Work Phone: [facility] 07-05-2023 15:13-0400 Body weight 70.31 kg Stanley Strange MD Work Phone: [facility] 07-05-2023 15:13-0400 Diastolic blood pressure 70 mm[Hg] Stanley Strange MD Work Phone: [facility] 07-05-2023 15:13-0400 Systolic blood pressure 108 mm[Hg] Stanley Strange MD Work Phone: [facility] 06-17-2023 11:18-0500 Body weight 76 kg Chalo Patel DO Work Phone: [facility] 06-15-2023 14:19-0500 Body height 167.6 cm Gilles Cormier MD Work Phone: [facility] 06-15-2023 14:19-0500 Body weight 77.29 kg Gilles Cormier MD Work Phone: [facility] 06-15-2023 14:19-0500 Diastolic blood pressure 82 mm[Hg] Gilles Cormier MD Work Phone: [facility] 06-15-2023 14:19-0500 Heart rate 93 /min Gilles Cormier MD Work Phone: [facility] 06-15-2023 14:19-0500 Systolic blood pressure 125 mm[Hg] Gilles Cormier MD Work Phone: [facility] 06-02-2023 10:10-0500 Body weight 79 kg Mikel Duber [employer] SURFACE HEATER OPERATOR.INTERNET MANAGER Work Phone: [facility] 06-02-2023 10:10-0500 Diastolic blood pressure 62 mm[Hg] Mikel Duber [employer] SURFACE HEATER OPERATOR.INTERNET MANAGER Work Phone: [facility] 06-02-2023 10:10-0500 Heart rate 96 /min Mikel Duber [employer] SURFACE HEATER OPERATOR.INTERNET MANAGER Work Phone: [facility] 06-02-2023 10:10-0500 Systolic blood pressure 100 mm[Hg] Mikel Duber [employer] SURFACE HEATER OPERATOR.INTERNET MANAGER Work Phone: [facility] 02-19-2024 16:55-0500 Diastolic blood pressure 74 mm[Hg] Stanley Strange MD Work Phone: [facility] 05-31-2023 16:55-0500 Systolic blood pressure 117 mm[Hg] Stanley Strange MD Work Phone: [facility] 05-31-2023 15:33-0500 Body height 167.6 cm Stanley Strange MD Work Phone: [facility] 05-31-2023 15:33-0500 Body weight 80.6 kg Stanley Strange MD Work Phone: [facility] 05-31-2023 15:33-0500 Heart rate 104 /min Stanley Strange MD Work Phone: [facility] 02-24-2023 14:03-0500 Diastolic blood pressure 56 mm[Hg] Dwight Ross [employer] SUR[employer] HEATER OPERATOR.INTERNET MANAGER Work Phone: [facility] 02-24-2023 14:03-0500 Heart rate 93 /min Dwight Ross [employer] SUR[employer] HEATER OPERATOR.INTERNET MANAGER Work Phone: [facility] 02-24-2023 14:03-0500 Systolic blood pressure 81 mm[Hg] Dwight Ross [employer] SURFACE HEATER OPERATOR.INTERNET MANAGER Work Phone: [facility] 02-24-2023 13:59-0500 Body height 167.6 cm Dwight Ross [employer] SURFACE HEATER OPERATOR.INTERNET MANAGER Work Phone: [facility] 02-24-2023 13:59-0500 Body weight 83.28 kg Dwight Ross [employer] SUR[employer] HEATER OPERATOR.INTERNET MANAGER Work Phone: [facility] 02-24-2023 13:59-0500 SaO2% (BldA) [Mass fraction] 100 % Dwight Ross [employer] SURFACE HEATER OPERATOR.INTERNET MANAGER Work Phone: [facility] 01-27-2023 10:33-0400 Body weight 84.82 kg Mikel Barahona [employer] SURFACE HEATER OPERATOR.INTERNET MANAGER Work Phone: [facility] 01-27-2023 10:33-0400 Diastolic blood pressure 78 mm[Hg] Mikel Barahona [employer] SURFACE HEATER OPERATOR.INTERNET MANAGER Work Phone: [facility] 01-27-2023 10:33-0400 Heart rate 76 /min Mikel Duber [employer] SUR[employer] HEATER OPERATOR.INTERNET MANAGER Work Phone: [facility] 01-27-2023 10:33-0400 Systolic blood pressure 142 mm[Hg] Mikel Duber [employer] SURFACE HEATER OPERATOR.INTERNET MANAGER Work Phone: [facility] 12-17-2022 11:07-0400 Body weight 85.73 kg Chalo Patel DO Work Phone: [facility] 12-17-2022 11:07-0400 Diastolic blood pressure 85 mm[Hg] Chalo Patel DO Work Phone: [facility] 12-17-2022 11:07-0400 Heart rate 81 /min Chalo Patel DO Work Phone: [facility] 12-17-2022 11:07-0400 SaO2% (BldA) [Mass fraction] 95 % Chalo Patel DO Work Phone: [facility] 12-17-2022 11:07-0400 Systolic blood pressure 147 mm[Hg] Chalo Patel DO Work Phone: [facility] 11-04-2022 12:53-0400 Body weight 88.45 kg Mikel Duber [employer] SUR[employer] HEATER OPERATOR.INTERNET MANAGER Work Phone: [facility] 11-04-2022 12:53-0400 Diastolic blood pressure 76 mm[Hg] Mikel Duber [employer] SURFACE HEATER OPERATOR.INTERNET MANAGER Work Phone: [facility] 11-04-2022 12:53-0400 Heart rate 84 /min Mikel Duber [employer] SURFACE HEATER OPERATOR.INTERNET MANAGER Work Phone: [facility] 11-04-2022 12:53-0400 Systolic blood pressure 124 mm[Hg] Mikel Duber [employer] SURFACE HEATER OPERATOR.INTERNET MANAGER Work Phone: [facility] 08-07-2022 13:43-0400 Body weight 87.09 kg Mikel Duber [employer] SURFACE HEATER OPERATOR.INTERNET MANAGER Work Phone: [facility] 08-07-2022 13:43-0400 Diastolic blood pressure 68 mm[Hg] Mikel Duber [employer] SURFACE HEATER OPERATOR.INTERNET MANAGER Work Phone: [facility] 08-07-2022 13:43-0400 Systolic blood pressure 162 mm[Hg] Mikel Duber [employer] SURFACE HEATER OPERATOR.INTERNET MANAGER Work Phone: [facility] 06-23-2022 13:53-0400 Body weight 89.09 kg Mikel Duber [employer] SURFACE HEATER OPERATOR.INTERNET MANAGER Work Phone: [facility] 06-23-2022 13:53-0400 Diastolic blood pressure 72 mm[Hg] Mikel Duber [employer] SURFACE HEATER OPERATOR.INTERNET MANAGER Work Phone: [facility] 06-23-2022 13:53-0400 Heart rate 74 /min Mikel Duber [employer] SURFACE HEATER OPERATOR.INTERNET MANAGER Work Phone: [facility] 06-23-2022 13:53-0400 Systolic blood pressure 154 mm[Hg] Mikel Duber [employer] SURFACE HEATER OPERATOR.INTERNET MANAGER Work Phone: [facility] 06-11-2022 10:50-0500 Body weight 87.54 kg Chalo Patel DO Work Phone: [facility] 06-11-2022 10:50-0500 Diastolic blood pressure 54 mm[Hg] Chalo Patel DO Work Phone: [facility] 06-11-2022 10:50-0500 Heart rate 75 /min Chalociaran Patel DO Work Phone: [facility] 06-11-2022 10:50-0500 SaO2% (BldA) [Mass fraction] 98 % Chalo Patel DO Work Phone: [facility] 06-11-2022 10:50-0500 Systolic blood pressure 115 mm[Hg] Chalo Nabeel DO Work Phone: [facility] 12-12-2021 10:54-0400 Diastolic blood pressure 85 mm[Hg] Janny Jay [employer] SURFACE HEATER OPERATOR.INTERNET MANAGER Work Phone: [facility] 12-12-2021 10:54-0400 Heart rate 71 /min Janny Jay [employer] SURFACE HEATER OPERATOR.INTERNET MANAGER Work Phone: [facility] 12-12-2021 10:54-0400 Systolic blood pressure 147 mm[Hg] Janny Jay [employer] SURFACE HEATER OPERATOR.INTERNET MANAGER Work Phone: [facility] 12-05-2021 10:53-0400 Body weight 90.27 kg Chalo Patel DO Work Phone: [facility] 12-05-2021 10:53-0400 Diastolic blood pressure 73 mm[Hg] Chalo Patel DO Work Phone: [facility] 12-05-2021 10:53-0400 Heart rate 77 /min Chalo Patel DO Work Phone: [facility] 12-05-2021 10:53-0400 SaO2% (BldA) [Mass fraction] 96 % Chalo Patel DO Work Phone: [facility] 12-05-2021 10:53-0400 Systolic blood pressure 127 mm[Hg] Chalo Patel DO Work Phone: [facility] 09-04-2021 10:51-0400 Body weight 87.54 kg Chalo Patel DO Work Phone: [facility] 09-04-2021 10:51-0400 Diastolic blood pressure 53 mm[Hg] Chalo Patel DO Work Phone: [facility] 09-04-2021 10:51-0400 Heart rate 74 /min Chalo Patel DO Work Phone: [facility] 09-04-2021 10:51-0400 SaO2% (BldA) [Mass fraction] 96 % Chalo Patel DO Work Phone: [facility] 09-04-2021 10:51-0400 Systolic blood pressure 120 mm[Hg] Chalo Patel DO Work Phone: [facility] Encounters Encounter Date Encounter Type Care Provider Facility Start: 08-18-2024 End: 08-18-2024 Refill Radha Little NP Work Phone: [facility] Comment on above: Other cirrhosis of l iver (Primary Dx); Acute left-sided thoracic back pain Start: 08-17-2024 End: 08-21-2024 Telephone encounter Stanley Strange MD Work Phone: [facility] Start: 08-16-2024 End: 08-16-2024 Clinisync Result Encounter Generic External Data Provider [facility] External Department Unsolicited Start: 08-16-2024 End: 08-16-2024 Clinisync Result Encounter Generic External Data Provider [facility] External Department Unsolicited Start: 08-16-2024 End: 08-16-2024 ambulatory CHALO PATEL Facility:[facility] Start: 08-14-2024 End: 08-14-2024 External Result Encounter Radha Little EMERGING TECHNOLOGIES DIRECTOR Work Phone: [facility] Unsolicited Start: 08-14-2024 End: 08-14-2024 External Result Encounter Radha Little EMERGING TECHNOLOGIES DIRECTOR Work Phone: [facility] Department Unsolicited Start: 08-14-2024 ambulatory RADHA LITTLE [facility] Start: 08-02-2024 End: 08-02-2024 Bamboo flowsheet Radha Little EMERGING TECHNOLOGIES DIRECTOR Work Phone: [facility] Start: 08-02-2024 End: 08-02-2024 Bamboo flowsheet Radha Little EMERGING TECHNOLOGIES DIRECTOR Work Phone: [facility] Start: 08-02-2024 End: 08-02-2024 Office outpatient visit 15 minutes Radha Little EMERGING TECHNOLOGIES DIRECTOR Work Phone: [facility] Comment on above: URI, acute (Primary Dx); Seasonal allergic rhinitis, unspecified trigger; Primary hypertension (CMS/HCC); Heart failure with reduced ejection fraction (CMS/HCC) Start: 08-02-2024 End: 08-02-2024 ambulatory RADHA LITTLE Not Available Start: 06-30-2024 End: 07-03-2024 Refill Radha Little EMERGING TECHNOLOGIES DIRECTOR Work Phone: [facility] Comment on above: Elevated blood uric acid level Start: 06-26-2024 End: 06-26-2024 ambulatory STANLEY STRANGE Facility:[facility] Start: 06-26-2024 End: 06-26-2024 Office outpatient visit 25 minutes Stanley Strange MD Work Phone: Cardiology Comment on above: Chronic systolic hea rt failure (HCC) (Primary Dx); Pulmonary hypertension, unspecified (HCC); 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; LBBB (left bundle branch block); DAV (acute kidney injury) (HCC); Chronic systolic congestive heart failure (HCC) Start: 06-05-2024 End: 06-05-2024 Refill Stanley Strange MD Work Phone: Cardiology Comment on above: Refill Request Start: 05-22-2024 End: 05-22-2024 Clinisync Result Encounter Generic External Data Provider [facility] External [facility] Unsolicited Start: 05-22-2024 End: 05-22-2024 Clinisync Result Encounter Generic External Data Provider [facility] External Department Unsolicited Start: 05-22-2024 End: 05-22-2024 ambulatory CONCHA PARIS Facility:[facility] Start: 05-09-2024 End: 05-12-2024 ambulatory Mikel Barahona APRNOdalisGUALBERTO Work Phone: Endocrinology Comment on above: Ozempic Start: 04-24-2024 End: 04-24-2024 Clinisync Result Encounter Generic External Data Provider [facility] External Department Unsolicited Start: 04-24-2024 End: 04-24-2024 Clinisync Result Encounter Generic External Data Provider [facility] External Department Unsolicited Start: 04-24-2024 End: 04-26-2024 E-mail encounter from caregiver Concha Paris MD Work Phone: Kidney Medicine Start: 04-24-2024 End: 04-26-2024 Patient encounter procedure Chalo Patel DO Work Phone: Cardiology Comment on above: HFrEF (heart failure with reduced ejection fraction) (HCC) (Primary Dx); Other cardiomyopathy (HCC); 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; Primary hypertension; Essential hypertension; Mixed hyperlipidemia; Hyperlipidemia associated with type 2 diabetes mellitus (HCC) (HCC); Nonrheumatic mitral valve regurgitation; Presence of cardiac resynchronization therapy defibrillator (TAIL DOGGER-D); H/O aorto-femoral bypass; ERASMO (obstructive sleep apnea) Repeat labs Start: 04-24-2024 End: 04-24-2024 ambulatory CAHLO PATEL Facility:[facility] Start: 04-21-2024 End: 04-21-2024 Clinisync Result Encounter Generic External Data Provider [facility] External [facility] Unsolicited Start: 04-21-2024 End: 04-21-2024 Clinisync Result Encounter Generic External Data Provider [facility] External [facility] Unsolicited Start: 04-21-2024 End: 04-21-2024 ambulatory RADHA LITTLE Facility:[facility] Start: 04-20-2024 End: 04-20-2024 Telephone encounter Chalo Patel DO Work Phone: Cardiology Comment on above: appt cancellation Start: 04-10-2024 End: 04-10-2024 ambulatory RADHA LITTLE Facility:[facility] Start: 04-10-2024 End: 04-10-2024 Patient encounter procedure Echo 2 [facility] Re[facility] Work Phone: Cardiology Comment on above: Chronic systolic con gestive heart failure (HCC) Start: 03-30-2024 End: 03-30-2024 Bamboo flowsmohinder Casarez PT Work Phone: [facility] Start: 03-30-2024 End: 03-30-2024 Bamboo flowsmohinder Casarez PT Work Phone: [facility] Start: 03-30-2024 End: 03-30-2024 ambulatory Timmy Casarez PT Work Phone: [facility] Comment on above: Acute pain of left s houlder (Primary Dx); Adhesive capsulitis of left shoulder Start: 03-27-2024 End: 03-27-2024 Bamboo flowsmohinder Casarez PT Work Phone: [facility] Start: 03-27-2024 End: 03-27-2024 Bamboo flowsheet Timmy Casarez PT Work Phone: [facility] Start: 03-27-2024 End: 03-27-2024 ambulatory Timmy Casarez PT Work Phone: [facility] Comment on above: Acute pain of left s houlder (Primary Dx); Adhesive capsulitis of left shoulder Start: 03-22-2024 End: 03-22-2024 Bamboo edelmira Casarez PT Work Phone: [facility] Start: 03-22-2024 End: 03-22-2024 Bamboo edelmira Casarez PT Work Phone: [facility] Start: 03-22-2024 End: 03-22-2024 ambulatory Timmy Casarez PT Work Phone: [facility] Comment on above: Acute pain of left s houlder (Primary Dx); Adhesive capsulitis of left shoulder Start: 03-17-2024 End: 05-16-2024 ambulatory [facility] Comment on above: Patient Assistance Start: 03-17-2024 End: 05-16-2024 E-mail encounter from caregiver [facility] Start: 03-16-2024 End: 03-16-2024 Bamboo edelmira Casarez PT Work Phone: [facility] Start: 03-16-2024 End: 03-16-2024 Bamboo edelmira Casarez PT Work Phone: [facility] Start: 03-16-2024 End: 03-16-2024 ambulatory Timmy Casarez PT Work Phone: [facility] Comment on above: Acute pain of left s houlder (Primary Dx); Adhesive capsulitis of left shoulder Start: 03-02-2024 End: 03-02-2024 Telephone encounter Mikel Barahona APRN.INTERNET MANAGER Work Phone: Endocrinology Comment on above: Patient Assistance ( Omid Nordisk: Ozempic) Start: 03-01-2024 End: 03-01-2024 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 Start: 02-28-2024 End: 02-28-2024 Patient encounter procedure Mikel Barahona APRN.INTERNET MANAGER Work Phone: Endocrinology Comment on above: Type 2 diabetes chela itus with other circulatory complication, with long-term current use of insulin (HCC) (Primary Dx); Essential hypertension; Hyperlipidemia associated with type 2 diabetes mellitus (HCC) (HCC) Start: 02-22-2024 End: 02-22-2024 ambulatory Timmy Casarez PT Work Phone: [facility] Comment on above: Acute pain of left s houlder (Primary Dx); Adhesive capsulitis of left shoulder Start: 02-22-2024 End: 02-22-2024 Bamboo flowsheet Timmy Casarez PT Work Phone: [facility] Start: 02-22-2024 End: 02-22-2024 Bamboo flowsheet Timmy Casarez PT Work Phone: [facility] Start: 02-17-2024 End: 02-18-2024 ambulatory Mikel Barahona APRN.INTERNET MANAGER Work Phone: Endocrinology Comment on above: Ozempic Start: 02-16-2024 End: 02-16-2024 Bamboo flowsheet Rocio PORTILLO Work Phone: [facility] Start: 02-16-2024 End: 02-16-2024 Bamboo flowsheet Rocio Moss PA Work Phone: [facility] Start: 02-16-2024 End: 02-16-2024 Office outpatient new 45 minutes Rocio Moss PA Work Phone: [facility] Comment on above: Acute pain of left s houlder (Primary Dx); Adhesive capsulitis of left shoulder Start: 02-16-2024 End: 02-16-2024 ambulatory ROCIO MOSS Not Available Start: 02-14-2024 End: 02-15-2024 Telephone encounter Mikel Barahona APRN.INTERNET MANAGER Work Phone: Endocrinology Comment on above: Patient Request Start: 02-10-2024 End: 02-10-2024 Orders Only Radha Little NP Work Phone: [facility] Comment on above: Tendinitis of left r otator cuff (Primary Dx); Arthralgia, unspecified joint Start: 02-07-2024 End: 02-07-2024 Telephone encounter Gilles Cormier MD Work Phone: Cardiology Start: 02-03-2024 End: 02-03-2024 Telephone encounter Mikel Barahona APRN.INTERNET MANAGER Work Phone: Endocrinology & Metabolic [place] Comment on above: Patient Update Start: 02-03-2024 End: 02-03-2024 ambulatory RADHA LITTLE [facility] Start: 02-01-2024 End: 02-02-2024 ambulatory Stanley Strange MD Work Phone: Cardiology Comment on above: Test Start: 01-25-2024 End: 01-25-2024 Clinisync Result Encounter Generic External Data Provider [facility] External Department Unsolicited Start: 01-25-2024 End: 01-25-2024 Clinisync Result Encounter Generic External Data Provider [facility] External Department Unsolicited Start: 01-25-2024 End: 01-25-2024 ambulatory RADHA LITTLE Facility:[facility] Start: 01-14-2024 End: 01-17-2024 ambulatory Stanley Strange MD Work Phone: Cardiology Comment on above: Furosemide Start: 01-04-2024 End: 01-04-2024 Refill Radha Little EMERGING TECHNOLOGIES DIRECTOR Work Phone: [facility] Comment on above: Elevated blood uric acid level Start: 01-04-2024 End: 01-04-2024 Telephone encounter Radha Little NP Work Phone: [facility] Start: 01-03-2024 End: 01-03-2024 ambulatory [facility] Facility:[facility] Start: 01-03-2024 End: 01-03-2024 Patient encounter procedure Rossy Arroyo MD Work Phone: Vascular Surgery Comment on above: PAD (peripheral emiliano ry disease) (HCC) (Primary Dx); Presence of heart assist device (HCC); Aortoiliac occlusive disease (HCC) Start: 01-03-2024 End: 01-03-2024 Clinisync Result Encounter Generic External Data Provider [facility] External Department Unsolicited Start: 01-03-2024 End: 01-03-2024 Clinisync Result Encounter Generic External Data Provider [facility] External Department Unsolicited Start: 01-03-2024 End: 01-06-2024 E-mail encounter from caregiver Stanley Strange MD Work Phone: Cardiology Start: 01-03-2024 End: 01-06-2024 ambulatory [facility] Facility:[facility] Comment on above: Labs Start: 01-03-2024 End: 01-03-2024 Subsequent hospital visit by physician Blanca Sutherland [facility] Comment on above: PAD (peripheral emiliano ry disease) (HCC) [I73.9] Start: 01-03-2024 End: 01-03-2024 ambulatory RADHA LITTLE Facility:[facility] Start: 12-28-2023 End: 12-28-2023 ambulatory RADHA LITTLE Facility:[facility] Start: 12-28-2023 End: 12-28-2023 Office outpatient visit 40 minutes Stanley Strange MD Work Phone: Cardiology Comment on above: Chronic systolic con gestive heart failure (HCC) (Primary Dx); Other cardiomyopathy (HCC); 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; Pulmonary hypertension, unspecified (HCC); Nonrheumatic mitral valve regurgitation Start: 12-07-2023 End: 12-07-2023 Evaluation and management of inpatient YARELIS YEH [facility] Start: 12-06-2023 End: 12-07-2023 Evaluation and management of inpatient SHEILA LITTLE [facility] Start: 11-30-2023 End: 11-30-2023 Orders Only Janny Jay APRN.INTERNET MANAGER Work Phone: Vascular Surgery Comment on above: PAD (peripheral emiliano ry disease) (HCC) (Primary Dx) Start: 11-27-2023 End: 11-29-2023 ambulatory Chalo Patel DO Work Phone: Cardiology Comment on above: stop meds Start: 11-24-2023 End: 11-30-2023 ambulatory [facility] Comment on above: Colonoscopy and stom ach scope Start: 11-18-2023 [facility] Start: 11-10-2023 Refill Dwight barron APRN.INTERNET MANAGER Work Phone: Cardiology Comment on above: Refill Request Start: 11-06-2023 Refill Chalo Patel DO Work Phone: Cardiology Comment on above: Refill Request Start: 11-01-2023 End: 11-01-2023 ambulatory RADHA LITTLE Not Available Start: 10-25-2023 End: 10-25-2023 ambulatory RADHA Shad [facility] Start: 10-21-2023 End: 10-21-2023 Patient encounter procedure Chalo aPtel DO Work Phone: Cardiology Comment on above: HFrEF (heart failure with reduced ejection fraction) (HCC) (Primary Dx); Cardiomyopathy, unspecified type (HCC); 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; Essential hypertension; Mixed hyperlipidemia; Hyperlipidemia associated with type 2 diabetes mellitus (HCC) (HCC); Nonrheumatic mitral valve regurgitation; Cardiac resynchronization therapy defibrillator (TAIL DOGGER-D) in place; H/O aorto-femoral bypass; Moderate obstructive sleep apnea Start: 10-21-2023 End: 10-21-2023 ambulatory CHALO PATEL Facility:[facility] Start: 10-18-2023 End: 10-18-2023 ambulatory RADHA LITTLE Not Available Start: 10-11-2023 End: 10-11-2023 ambulatory RADHA LITTLE Facility: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) (Primary Dx); Screening for genitourinary condition; Essential hypertension; Vitamin D deficiency; Chronic systolic CHF (congestive heart failure) (HCC) Start: 10-11-2023 Telephone encounter Mikel Spann APRN.CNP Work Phone: Endocrinology Comment on above: Forms ([employer] - OV note) Patient Update Start: 10-07-2023 End: 10-07-2023 Patient encounter procedure Gilles Cormier MD Work Phone: Cardiology Comment on above: Pacemaker reprogramm ing/check (Primary Dx); 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; Mixed hyperlipidemia; LBBB (left bundle branch block); Chronic systolic congestive heart failure (HCC) Start: 10-07-2023 End: 10-07-2023 ambulatory RADHA LITTLE Facility:[facility] Start: 10-07-2023 End: 10-07-2023 ambulatory RADHA LITTLE Facility:[facility] Start: 10-07-2023 End: 10-07-2023 Patient encounter procedure Echo 2 [facility] Re[facility] Work Phone: Cardiology Comment on above: Chronic systolic hea rt failure (HCC) Pacemaker reprogramm ing/check Start: 09-23-2023 Telephone encounter Mikel Spann APRN.INTERNET MANAGER Work Phone: Endocrinology Comment on above: Patient Assistance Start: 09-22-2023 End: 09-22-2023 ambulatory RADHA TORRES [facility] Facility:[facility] Start: 09-21-2023 ambulatory Mikel Barahona APRN.INTERNET MANAGER Work Phone: Endocrinology Comment on above: Ozempic perscription Start: 09-10-2023 ambulatory Mikel Barahona APRN.INTERNET MANAGER Work Phone: Endocrinology Comment on above: Ozempic Start: 08-03-2023 End: 08-03-2023 ambulatory Dahiana Barth SHITAL.INTERNET MANAGER Work Phone: Neurology Comment on above: Obstructive sleep ap shree syndrome (Primary Dx); Essential hypertension; Mixed hyperlipidemia; Type 2 diabetes mellitus with diabetic peripheral angiopathy without gangrene, with long-term current use of insulin (HCC); 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; Cardiomyopathy, unspecified type [...] 08-03-2023 End: 08-03-2023 Telemedicine consultation with patient Dahiana Batrh SHITAL.INTERNET MANAGER Work Phone: Neurology Start: 07-27-2023 End: 07-27-2023 Office outpatient visit 25 minutes Stanley Strange MD Work Phone: Cardiology Comment on above: Chronic systolic con gestive heart failure (HCC) (Primary Dx); LBBB (left bundle branch block); DAV (acute kidney injury) (HCC) Start: 07-15-2023 Follow-up encounter Gilles Cormier MD Work Phone: [facility] Start: 07-15-2023 End: 07-15-2023 Patient encounter procedure Gilles Cormier MD Work Phone: [facility] Department Comment on above: Cardiac resynchroniz ation therapy defibrillator (TAIL DOGGER-D) in place (Primary Dx); Chronic systolic heart failure (HCC); LBBB (left bundle branch block) Start: 07-05-2023 End: 07-05-2023 Office outpatient visit 15 minutes Stanley Strange MD Work Phone: Cardiology Comment on above: Chronic systolic hea rt failure (HCC) (Primary Dx); LBBB (left bundle branch block); DAV (acute kidney injury) (HCC) Start: 07-01-2023 Telephone encounter Niraj flores PA-C Work Phone: [facility] Provider Adult Comment on above: [facility] Follow Up Start: 06-30-2023 End: 07-01-2023 ambulatory RADHA TORRES [facility] Facility:[facility] Start: 06-22-2023 Telephone encounter Stanley valdes MD Work Phone: Cardiology Start: 06-17-2023 Telephone encounter Sheila Reardon RP [facility] Comment on above: Medication Problem ( Jardiance ) Start: 06-17-2023 End: 06-17-2023 Patient encounter procedure Chalo Patel DO Work Phone: Cardiology Comment on above: Shortness of breath (Primary Dx); Fatigue, unspecified type; HFrEF (heart failure with reduced ejection fraction) (HCC); Cardiomyopathy, unspecified type (HCC); 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; Essential hypertension; Mixed hyperlipidemia; Hyperlipidemia associated with type 2 diabetes mellitus (HCC) (HCC); Nonrheumatic mitral valve regurgitation; Moderate obstructive sleep apnea; H/O aorto-femoral bypass; Class 1 obesity due to excess calories with serious comorbidity and body mass index (BMI) of 30.0 to 30.9 in adult Start: 06-15-2023 End: 06-15-2023 Patient encounter procedure Gilles Cormier MD Work Phone: Cardiology Comment on above: HFrEF (heart failure with reduced ejection fraction) (HCC) (Primary Dx); Ischemic cardiomyopathy; LBBB (left bundle branch block) Start: 06-10-2023 Telephone encounter Stanley valdes MD Work Phone: Cardiology Start: 06-04-2023 ambulatory Stanley Strange MD Work Phone: Cardiology Comment on above: Wednesday report Start: 06-02-2023 End: 06-02-2023 Patient encounter procedure Mikel Barahona APRN.INTERNET MANAGER Work Phone: Endocrinology Comment on above: Type 2 diabetes chela itus with other circulatory complication, with long-term current use of insulin (HCC) (Primary Dx); Obstructive sleep apnea; Essential hypertension; Hyperlipidemia associated with type 2 diabetes mellitus (HCC) (HCC) Start: 06-01-2023 Telephone encounter Stanley valdes MD Work Phone: Cardiology Start: 05-31-2023 End: 05-31-2023 Office outpatient new 60 minutes Stanley Strange MD Work Phone: Cardiology Comment on above: Acute on chronic sys tolic congestive heart failure (HCC) (Primary Dx); 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; LBBB (left bundle branch block); Aortoiliac occlusive disease (HCC); Nonsustained ventricular tachycardia (HCC) Start: 05-28-2023 Telephone encounter Stanley valdes MD Work Phone: Cardiology Start: 05-25-2023 ambulatory Chalo Patel DO Work Phone: Cardiology Comment on above: Echocardiogram Start: 05-25-2023 Clinisync Result Encounter Gen gregory External Data Provider [facility] External Department Unsolicited Start: 05-25-2023 Clinisync Result Encounter Gen gregory External Data Provider [facility] External Department Unsolicited Start: 05-25-2023 End: 05-25-2023 Patient encounter procedure Group Segment Consultant [facility] Aniya Work Phone: Cardiology Comment on above: HFrEF (heart failure with reduced ejection fraction) (HCC); Cardiomyopathy, unspecified type (HCC); Fatigue, unspecified type; Shortness of breath Start: 05-20-2023 ambulatory Chalo Patel Work Phone: Cardiology Comment on above: Bethany Hinojosa Start: 05-17-2023 Refill Radha Little EMERGING TECHNOLOGIES DIRECTOR Work Phone: [facility] Start: 05-16-2023 Refill Dwight barron ASPHALT SURFACE HEATER OPERATOR.INTERNET MANAGER Work Phone: Cardiology Comment on above: Refill Request Start: 03-19-2023 Telephone encounter Mikel Du david ASPHALT SURFACE HEATER OPERATOR.INTERNET MANAGER Work Phone: Endocrinology Comment on above: Forms (Elliot ramachandran's Written Order) Start: 03-16-2023 ambulatory Mikel Duber ASPHALT SURFACE HEATER OPERATOR.INTERNET MANAGER Work Phone: Endocrinology Comment on above: CPAP Start: 03-16-2023 Telephone encounter Mikel Manolo david ASPHALT SURFACE HEATER OPERATOR.INTERNET MANAGER Work Phone: Endocrinology Comment on above: OZEMPIC RECEIVED Start: 03-11-2023 Telephone encounter Mikel Manolo david ASPHALT SURFACE HEATER OPERATOR.INTERNET MANAGER Work Phone: Endocrinology Comment on above: Forms (Diabetic supp lies - Yasmany) Patient Assistance ( Omid Nordisk- Ozempic 2mg (increase for new rx for 2023) ) Start: 02-25-2023 ambulatory Dwight barron ASPHALT SURFACE HEATER OPERATOR.INTERNET MANAGER Work Phone: Cardiology Comment on above: [facility] Start: 02-25-2023 Telephone encounter Mikel Du david ASPHALT SURFACE HEATER OPERATOR.INTERNET MANAGER Work Phone: Endocrinology Comment on above: Forms (Yasmany - Ltio tovar Order for diabetic testing supplies) Start: 02-24-2023 End: 02-25-2023 Emergency department patient visit RADHA LITTLE [facility] Start: 02-24-2023 ambulatory Dwight barron ASPHALT SURFACE HEATER OPERATOR.INTERNET MANAGER Work Phone: [facility] Start: 02-24-2023 End: 02-24-2023 Patient encounter procedure Dwight Ross APRN.INTERNET MANAGER Work Phone: Cardiology Comment on above: Today's appointment Systolic heart failu re, unspecified HF chronicity (HCC) (Primary Dx); Unresponsive; Hypotension, unspecified hypotension type; Sinus bradycardia Start: 02-17-2023 End: 02-19-2023 Evaluation and management of inpatient MAHSA CHRISTENSEN Facility:[facility] Start: 02-16-2023 End: 02-17-2023 Evaluation and management of inpatient PARAS RAMIREZ Facility:[facility] Start: 02-05-2023 ambulatory Mikel Barahona APRN.INTERNET MANAGER Work Phone: Endocrinology Comment on above: Diabetic testing Start: 01-27-2023 Telephone encounter Mikel Spann ASPHALT SURFACE HEATER OPERATOR.INTERNET MANAGER Work Phone: Endocrinology Comment on above: Patient Assistance ( Omid Nordisk- Ozempic 2mg (medication increase)) Start: 01-27-2023 End: 01-27-2023 Patient encounter procedure Mikel Barahona APRN.INTERNET MANAGER Work Phone: Endocrinology Comment on above: Type 2 diabetes chela itus with other circulatory complication, with long-term current use of insulin (HCC) (Primary Dx) Start: 12-17-2022 End: 12-17-2022 Patient encounter procedure Chalo Nabeel COULTER Work Phone: Cardiology Comment on above: Claudication (HCC) ( Primary Dx); H/O aorto-femoral bypass; Nonsustained ventricular tachycardia (HCC); Systolic heart failure, unspecified HF chronicity (HCC); 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; Essential hypertension; Mixed hyperlipidemia; Hyperlipidemia associated with type 2 diabetes mellitus (HCC); Moderate obstructive sleep apnea; Hypomagnesemia; Class 1 obesity due to excess calories with serious comorbidity and body mass index (BMI) of 30.0 to 30.9 in adult Start: 11-25-2022 ambulatory Mikel Barahona APRN.GUALBERTO Work Phone: Endocrinology Comment on above: Ozempic Start: 11-04-2022 Telephone encounter Mikel Spann APRN.CNP Work Phone: Home Respiratory Therapy Comment on above: PAP Therapy Follow U p Start: 11-04-2022 End: 11-04-2022 Patient encounter procedure Mikel Barahona APRN.INTERNET MANAGER Work Phone: Endocrinology Comment on above: Type 2 diabetes chela itus with diabetic peripheral angiopathy without gangrene, with long-term current use of insulin (HCC) (Primary Dx); Cardiomyopathy, unspecified type (HCC); Essential hypertension; Class 1 obesity due to excess calories with serious comorbidity and body mass index (BMI) of 32.0 to 32.9 in adult; Obstructive sleep apnea Start: 10-20-2022 ambulatory Mikel Barahona ASPHALT SURFACE HEATER OPERATOR.INTERNET MANAGER Work Phone: Endocrinology Comment on above: Sugar control proble ms Start: 10-07-2022 Refill Dwight barron ASPHALT SURFACE HEATER OPERATOR.INTERNET MANAGER Work Phone: Cardiology Comment on above: Refill Request Start: 08-19-2022 Telephone encounter Mikel Spann ASPHALT SURFACE HEATER OPERATOR.INTERNET MANAGER Work Phone: Endocrinology Comment on above: Patient Assistance ( Omid Nordisk- Ozempic) Start: 08-07-2022 End: 08-07-2022 Patient encounter procedure Mikel Barahona ASPHALT SURFACE HEATER OPERATOR.INTERNET MANAGER Work Phone: Endocrinology Comment on above: Type 2 diabetes chela itus with diabetic peripheral angiopathy without gangrene, with long-term current use of insulin (HCC) (Primary Dx); Class 1 obesity due to excess calories with serious comorbidity and body mass index (BMI) of 32.0 to 32.9 in adult; Hyperlipidemia associated with type 2 diabetes mellitus (HCC) Start: 07-21-2022 ambulatory Mikel Barahona ASPHALT SURFACE HEATER OPERATOR.INTERNET MANAGER Work Phone: Endocrinology Comment on above: Arleth Elias / Cannot afford Trulicity Start: 06-23-2022 End: 06-23-2022 Patient encounter procedure Mikel Barahona APRN.INTERNET MANAGER Work Phone: Endocrinology Comment on above: Overactive [...] 06-11-2022 End: 06-11-2022 Patient encounter procedure Chalo Patel Work Phone: Cardiology Comment on above: Dyspnea, unspecified type (Primary Dx); Claudication (HCC); H/O aorto-femoral bypass; Nonsustained ventricular tachycardia (HCC); Systolic heart failure, unspecified HF chronicity (HCC); 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; Essential hypertension; Mixed hyperlipidemia; Hyperlipidemia associated with type 2 diabetes mellitus (HCC); Moderate obstructive sleep apnea; Hypomagnesemia; Class 1 obesity due to excess calories with serious comorbidity and body mass index (BMI) of 32.0 to 32.9 in adult Start: 06-10-2022 Orders Only Radha pope INTERNET MANAGER Work Phone: Hematology/Oncology Comment on above: Other diabetic neuro logical complication associated with type 2 diabetes mellitus (HCC) (Primary Dx); Other fatigue Start: 02-08-2022 Refill Chalo Nabeel COULTER Work Phone: Cardiology Comment on above: Refill Request Start: 12-12-2021 End: 12-12-2021 Patient encounter procedure Janny Jay APRN.INTERNET MANAGER Work Phone: Vascular Surgery Comment on above: Aortoiliac occlusive disease (HCC) (Primary Dx) Start: 12-05-2021 End: 12-05-2021 Patient encounter procedure Chalo Nabeel COULTER Work Phone: Cardiology Comment on above: Claudication (HCC) ( Primary Dx); H/O aorto-femoral bypass; Nonsustained ventricular tachycardia (HCC); Systolic heart failure, unspecified HF chronicity (HCC); 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; Essential hypertension; Mixed [...] 10-07-2021 Subsequent hospital visit by physician Scan [facility] Rej Work Phone: Nuclear Medicine Comment on above: Chest discomfort [R0 7.89] Start: 10-07-2021 End: 10-07-2021 Subsequent hospital visit by physician Injection [facility] Rej Work Phone: Nuclear Medicine Comment on above: Chest discomfort [R0 7.89] Start: 2021 Telephone encounter Bj Jim MD Work Phone: Vascular Surgery Comment on above: Appointment Start: 09-25-2021 End: 09-25-2021 ambulatory Dahiaan Barth APRN.INTERNET MANAGER Work Phone: Neurology Comment on above: Obstructive sleep ap shree (Primary Dx); Obstructive sleep apnea syndrome; Essential hypertension; Mixed hyperlipidemia; Systolic heart failure, unspecified HF chronicity (HCC); Cardiomyopathy, unspecified type (HCC); 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; Type 2 diabetes mellitus with diabetic peripheral angiopathy without gangrene, with long-term current use of insulin (HCC); Class 1 obesity due to excess calories with serious comorbidity and body mass index (BMI) of 32.0 to 32.9 in adult Start: 09-25-2021 End: 09-25-2021 Telemedicine consultation with patient Dahiana Sneedearl LATHAMINTERNET MANAGER [facility] Start: 09-04-2021 End: 09-04-2021 Patient encounter procedure Chalo Patel DO Work Phone: Cardiology Comment on above: Chest discomfort (Pr imary Dx); Claudication (HCC); History of axillobifemoral bypass graft; Nonsustained ventricular tachycardia (HCC); Systolic heart failure, unspecified HF chronicity (HCC); 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; Essential hypertension; Mixed hyperlipidemia; Hyperlipidemia associated with type 2 diabetes mellitus (HCC); Obstructive sleep apnea syndrome; Class 1 obesity due to excess calories with serious comorbidity and body mass index (BMI) of 31.0 to 31.9 in adult Start: 07-20-2021 Refill Chalo Patel DO Work Phone: Cardiology Comment on above: Refill Request Start: 07-15-2021 End: 07-16-2021 ambulatory GUALBERTO LITTLE Facility:[facility] Start: 09-30-2020 End: 10-01-2020 ambulatory INTERNET MANAGER RADHA LITTLE Facility:[facility] Start: 09-19-2020 End: 09-19-2020 ambulatory GUALBERTO LITTLE Facility:[facility] Start: 09-12-2020 End: 09-12-2020 Patient encounter status Danitza Rej Work Phone: [facility] Start: 09-12-2020 End: 09-12-2020 Subsequent hospital visit by physician Danitza Guy [facility] Rej Work Phone: Nuclear Medicine Comment on above: Encounter for screen ing for cardiovascular disorders [Z13.6] Start: 06-07-2019 Patient encounter status Andreas Patel DO Work Phone: [facility] Work Phone: Start: 12-07-2016 End: 12-08-2016 Ambulatory DEFAULT PHYSICIAN [facility] Procedures Date Procedure Procedure Detail Performing Clinician Start: 08-16-2024 [facility] CBC W AUTO DIFF BLD Generic External Data Provider Start: 08-14-2024 Basic metabolic pane l calcium total Radha Amyciarandinahhoney EMERGING TECHNOLOGIES DIRECTOR Work Phone: Start: 06-26-2024 Ecg routine ecg w/le ast 12 lds i&r only [facility] Provider Start: 05-22-2024 [facility] CBC W AUTO DIFF BLD Generic External Data Provider Start: 04-24-2024 [facility] BAS METAB 2000 P NL SERPL Generic External Data Provider Start: 04-21-2024 [facility] CBC W AUTO DIFF BLD Generic External Data Provider Start: 04-10-2024 Echo tthrc r-t 2d w/wom-mode compl spec&colr d Stanley Strange MD Work Phone: Start: 02-28-2024 Hemoglobin A1c/Hemoglobin.total in Blood Mikel Larajohn ASPHALT SURFACE HEATER OPERATOR.INTERNET MANAGER Work Phone: Start: 01-25-2024 [facility] BAS METAB 2000 P NL SERPL Generic External Data Provider Start: 01-03-2024 End: 01-03-2024 Non-invas physiologic std extremity art 2 level Janny Jay ASPHALT SURFACE HEATER OPERATOR.INTERNET MANAGER Work Phone: Start: 01-03-2024 [facility] COMP METAB 2000 PNL SERPL Generic External Data Provider Start: 12-06-2023 Colonoscopy Generic Pr ovider Start: 10-11-2023 Urnls dip stick/tabl et rgnt auto w/o microscopy Concha Paris MD Work Phone: Start: 10-07-2023 Ecg routine ecg w/le ast 12 lds i&r only [facility] Provider Start: 10-07-2023 Prgrmg eval implanta ble in person multi lead dfb [facility] [place] Provider Start: 10-07-2023 Echo tthrc r-t 2d w/wom-mode compl spec&colr d Stanley Strange MD Work Phone: Start: 07-15-2023 Ecg routine ecg w/le ast 12 lds i&r only [facility] Provider Start: 07-15-2023 ICD CLINIC CHECK Momo Cormier MD Work Phone: Start: 06-14-2023 Mammography Generic Pr ovider Start: 06-02-2023 Hemoglobin A1c/Hemoglobin.total in Blood Mikel Barahona ASPHALT SURFACE HEATER OPERATOR.INTERNET MANAGER Work Phone: Start: 05-31-2023 Ecg routine ecg w/le ast 12 lds i&r only [facility] Provider Start: 05-25-2023 Echo tthrc r-t 2d w/wom-mode compl spec&colr d Renetta Glaser ASPHALT SURFACE HEATER OPERATOR.INTERNET MANAGER Work Phone: Start: 05-25-2023 [facility] CBC PNL BLD AUTO Ge neric External Data Provider Start: 01-27-2023 Hemoglobin A1c/Hemoglobin.total in Blood Mikel Duber [employer] OPERATOR.INTERNET MANAGER Work Phone: Start: 12-17-2022 Ecg routine ecg w/le ast 12 lds i&r only [facility] Provider Start: 11-04-2022 Hemoglobin A1c/Hemoglobin.total in Blood Mikel Barahona APRN.INTERNET MANAGER Work Phone: Start: 10-07-2021 Myocardial spect mul tiple studies Chalo Patel DO Work Phone: Start: 09-04-2021 Ecg routine ecg w/le ast 12 lds w/i&r Chalo Patel DO Work Phone: Start: 09-18-2020 Adult depression screening assessment Chalo Patel DO Work Phone: Start: 09-12-2020 Myocardial spect mul tiple studies Chalo Patel DO Work Phone: Start: 07-08-2017 Mammography Chalo ward DO Work Phone: Start: 03-22-2017 Colonoscopy Chalo ward DO Work Phone: Plan of Treatment Date Care Activity Detail Author Start: 12-05-2033 Screening for malignant neoplasm of colon [facility] Start: 08-16-2025 Complete blood count Hemoglobin/Hematocrit [facility] Start: 08-16-2025 Creatinine measurement Serum Creatinine [facility] Start: 08-16-2025 Hepatitis B surface antibody level LDL Cholesterol [facility] Start: 05-22-2025 Complete blood count Hemoglobin/Hematocrit [facility] Start: 05-22-2025 Creatinine measurement Serum Creatinine [facility] Start: 04-24-2025 Creatinine measurement Serum Creatinine [facility] Start: 04-21-2025 Complete blood count Hemoglobin/Hematocrit [facility] Start: 04-21-2025 Hepatitis B screening Urine Albumin:Creatinine Ratio [facility] Start: 02-27-2025 BP Controlled (<130/80) BP Controlled (<130/80) [facility] Start: 02-06-2025 End: 02-06-2025 Patient encounter procedure 02/06/2025 2:00 PM EDT Office Visit Cardiology [address] [place] [address] [place] [address] [place], [place] [id number] 8-9 months follow up Cardiology Comment on above: 8-9 months follow up Start: 01-26-2025 End: 04-27-2025 Basic metabolic 2000 panel - Serum or Plasma BASIC METABOLIC PANEL Lab Routine Chronic systolic heart failure (HCC) Expected: 01/26/2025, Expires: 04/27/2025 [facility] Comment on above: Expected: 01/26/2025, Expires: Start: 01-26-2025 End: 04-27-2025 Natriuretic peptide.B prohormone N-Terminal [Mass/volume] in Serum or Plasma NT PRO BNP Lab Routine Chronic systolic heart failure (HCC) Expected: 01/26/2025, Expires: 04/27/2025 [facility] Comment on above: Expected: 01/26/2025, Expires: Start: 01-24-2025 Creatinine measurement Serum Creatinine [facility] Start: 12-27-2024 BP Controlled (<130/80) BP Controlled (<130/80) [facility] Start: 11-08-2024 End: 11-08-2024 Patient encounter procedure 11/08/2024 1:30 PM EDT Office Visit Cardiology [address] [place] [address] Chalo Patel DO [address] [place] [address] 6 month follow up Cardiology Comment on above: 6 month follow up Start: 10-20-2024 BP Controlled (<130/80) BP Controlled (<130/80) [facility] Start: 10-10-2024 BP Controlled (<130/80) BP Controlled (<130/80) [facility] Start: 10-10-2024 Hepatitis B screening Urine Albumin:Creatinine Ratio [facility] Start: 09-06-2024 End: 09-06-2024 Patient encounter procedure 09/06/2024 10:20 AM EDT [facility] [address] [place] [address] [place] [address] [place] [address] VV per Med Advice Kidney Medicine Comment on above: VV per Med Advice Start: 08-28-2024 End: 08-28-2024 Patient encounter procedure 08/28/2024 12:50 PM EDT Office Visit Endocrinology [address] [place] [address] Mikel Barahona APRN.INTERNET MANAGER [address] [place] [address] DM 6 month follow up Endocrinology Comment on above: DM 6 month follow up Start: 08-27-2024 Hemoglobin A1c measurement [facility] Start: 08-23-2024 Covid-19 Vaccine ( season) Covid-19 Vaccine () [facility] Start: 08-22-2024 End: 08-22-2024 Patient encounter procedure 08/22/2024 8:40 AM EDT Office Visit [facility] [address] [place] [phone] Radha Little NP [address] [place] [address] [facility] Start: 08-18-2024 End: 08-18-2025 US Abdomen limited US LIVER Imaging STAT Other cirrhosis of liver Expected: 08/18/2024 (Approximate), Expires: 08/18/2025 [facility] Work Phone: Comment on above: Expected: 08/18/2024 (Approximate), Expi res: 08/18/2025 Start: 08-10-2024 End: 08-10-2024 Patient encounter procedure 08/10/2024 9:30 AM EDT Office Visit Cardiology [address] [place] [address] Chalo Patel DO [address] [place] [address] 6 month follow up Cardiology Comment on above: 6 month follow up Start: 08-02-2024 End: 08-02-2024 Patient encounter procedure 08/02/2024 11:45 AM EDT Office Visit [facility] [address] [place] [phone] Radha Little NP [address] [place] [phone] Arrived [facility] Comment on above: Arrived Start: 07-27-2024 End: 09-25-2024 Basic metabolic 2000 panel - Serum or Plasma BASIC METABOLIC PANEL Lab Routine Chronic systolic heart failure (HCC) Expected: 07/27/2024, Expires: 09/25/2024 [facility] Work Phone: Comment on above: Expected: 07/27/2024, Expires: Start: 07-27-2024 End: 10-26-2024 LIPID PANEL, NONFASTING LIPID PANEL, NONFASTING Lab Routine 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 Expected: 07/27/2024, Expires: 10/26/2024 [facility] Comment on above: Expected: 07/27/2024, Expires: Start: 07-27-2024 End: 09-25-2024 Natriuretic peptide.B prohormone N-Terminal [Mass/volume] in Serum or Plasma NT PRO BNP Lab Routine Chronic systolic heart failure (HCC) Expected: 07/27/2024, Expires: 09/25/2024 [facility] Comment on above: Expected: 07/27/2024, Expires: Start: 07-26-2024 BP Controlled (<130/80) BP Controlled (<130/80) [facility] Start: 07-26-2024 Hepatitis B screening Urine Albumin:Creatinine Ratio [facility] Start: 07-26-2024 Urine screening for protein Diabetes: Urine Protein Screening [facility] Start: 07-04-2024 BP Controlled (<130/80) BP Controlled (<130/80) [facility] Start: 06-29-2024 Complete blood count Hemoglobin/Hematocrit [facility] Start: 06-27-2024 End: 2024 Basic metabolic 2000 panel - Serum or Plasma BASIC METABOLIC PANEL Lab Routine Primary hypertension Expected: 06/27/2024 (Approximate), Expires: 2024 [facility] Work Phone: Comment on above: Expected: 06/27/2024 (Approximate), Expi res: 2024 Start: 06-26-2024 End: 06-26-2024 Patient encounter procedure Cardiology Comment on above: 6 months follow up Start: 06-25-2024 Glaucoma screening Diabetes: Retinopathy Screening [facility] Start: 06-13-2024 Screening for malignant neoplasm of breast Mammogram [facility] Start: 06-02-2024 BP Controlled (<130/80) BP Controlled (<130/80) [facility] Start: 05-31-2024 BP Controlled (<130/80) BP Controlled (<130/80) [facility] Start: 05-17-2024 End: 04-26-2025 CBC W Auto Differential panel - Blood COMPLETE BLOOD COUNT AND DIFFERENTIAL Lab Routine Stage 3b chronic kidney disease (HCC) Expected: 05/17/2024, Expires: 04/26/2025 [facility] Work Phone: Comment on above: Expected: 05/17/2024, Expires: 6 Start: 05-17-2024 End: 04-26-2025 Renal function 2000 panel - Serum or Plasma RENAL FUNCTION PANEL Lab Routine Stage 3b chronic kidney disease (HCC) Expected: 05/17/2024, Expires: 04/26/2025 [facility] Comment on above: Expected: 05/17/2024, Expires: Start: 05-17-2024 End: 08-16-2024 Urinalysis complete panel - Urine URINALYSIS, WITH MICROSCOPIC Lab Routine Stage 3b chronic kidney disease (HCC) Expected: 05/17/2024, Expires: 08/16/2024 [facility] Comment on above: Expected: 05/17/2024, Expires: 5 Start: 04-27-2024 End: 03-01-2025 25-hydroxyvitamin D3 [Mass/volume] in Serum or Plasma VITAMIN D 25 HYDROXY Lab Routine Stage 3b chronic kidney disease (HCC) Vitamin D deficiency Expected: 04/27/2024, Expires: 03/01/2025 [facility] Work Phone: Comment on above: Expected: 04/27/2024, Expires: Start: 04-27-2024 End: 03-01-2025 CBC W Auto Differential panel - Blood COMPLETE BLOOD COUNT AND DIFFERENTIAL Lab Routine Stage 3b chronic kidney disease (HCC) Vitamin D deficiency Expected: 04/27/2024, Expires: 03/01/2025 [facility] Comment on above: Expected: 04/27/2024, Expires: Start: 04-27-2024 End: 03-01-2025 Parathyrin.intact [Mass/volume] in Serum or Plasma PTH INTACT Lab Routine Stage 3b chronic kidney disease (HCC) Vitamin D deficiency Expected: 04/27/2024, Expires: 03/01/2025 [facility] Comment on above: Expected: 04/27/2024, Expires: Start: 04-27-2024 End: 03-01-2025 Protein/Creatinine [Mass Ratio] in Urine PROTEIN / CREATININE RATIO Lab Routine Stage 3b chronic kidney disease (HCC) Vitamin D deficiency Expected: 04/27/2024, Expires: 03/01/2025 [facility] Comment on above: Expected: 04/27/2024, Expires: Start: 04-27-2024 End: 03-01-2025 Renal function 2000 panel - Serum or Plasma RENAL FUNCTION PANEL Lab Routine Stage 3b chronic kidney disease (HCC) Vitamin D deficiency Expected: 04/27/2024, Expires: 03/01/2025 [facility] Comment on above: Expected: 04/27/2024, Expires: Start: 04-26-2024 End: 04-26-2024 Patient encounter procedure 04/26/2024 2:30 PM EST Office Visit Cardiology [address] [place] [address] Chalo Patel DO [address] [place] [address] Return in about 6 months (around 04/28/2024) Cardiology Comment on above: Return in about 6 months (around 04/28/19 25) Start: 04-24-2024 End: 04-24-2024 Patient encounter procedure 04/24/2024 10:00 AM EST Office Visit Cardiology [address] [place], [place] [phone] Chalo Patel, DO [address] [place] [address] 6 month follow up - ok per [facility] and [facility] Cardiology Comment on above: 6 month follow up - ok per [facility] and [facility] Start: 04-22-2024 End: 07-22-2024 Basic metabolic 2000 panel - Serum or Plasma BASIC METABOLIC PANEL Lab Routine Essential hypertension Expected: 04/22/2024 (Approximate), Expires: 07/22/2024 [facility] Work Phone: Comment on above: Expected: 04/22/2024 (Approximate), Expi res: 07/22/2024 Start: 04-22-2024 End: 07-22-2024 CBC panel - Blood by Automated count COMPLETE BLOOD COUNT Lab Routine HFrEF (heart failure with reduced ejection fraction) (HCC) Expected: 04/22/2024 (Approximate), Expires: 07/22/2024 [facility] Comment on above: Expected: 04/22/2024 (Approximate), Expi res: 07/22/2024 Start: 04-22-2024 End: 07-22-2024 Natriuretic peptide.B prohormone N-Terminal [Mass/volume] in Serum or Plasma NT PRO BNP Lab Routine HFrEF (heart failure with reduced ejection fraction) (HCC) Cardiomyopathy, unspecified type (HCC) Expected: 04/22/2024 (Approximate), Expires: 07/22/2024 [facility] Comment on above: Expected: 04/22/2024 (Approximate), Expi res: 07/22/2024 Start: 04-13-2024 End: 04-13-2024 ambulatory 04/13/2024 11:00 AM EST Treatment [facility] [address] [place] [address] Meera Bonilla, PT [address] [place] [address] [facility] Start: 04-12-2024 Advance Directive Discussion Advance Directive Discussion [facility] Start: 04-11-2024 End: 04-11-2024 ambulatory 04/11/2024 11:30 AM EST Treatment [facility] [address] [place] [address] Timmy Casarez, PT [address] [place] [address] [facility] Start: 04-10-2024 End: 04-10-2024 Patient encounter procedure 04/10/2024 10:30 AM EST Office Visit Cardiology [address] [place] [address] Echo Cardiology Comment on above: Echo Start: 03-30-2024 End: 03-30-2024 ambulatory 03/30/2024 10:00 AM EST Treatment [facility] [address] [place] [address] Timmy Casarez, PT [address] [place] [address] [facility] Start: 03-27-2024 End: 03-27-2024 ambulatory [facility] Comment on above: Arrived Start: 03-22-2024 BP Controlled (<130/80) BP Controlled (<130/80) [facility] Start: 03-22-2024 End: 03-22-2024 Patient encounter procedure 03/22/2024 10:30 AM EST Office Visit [facility] [address] [place] [phone] Rocio Moss, PA [address] [place] [address] [facility] Start: 03-22-2024 End: 03-22-2024 ambulatory 03/22/2024 10:00 AM EST Treatment [facility] [address] [place] [phone] Timmy Casarez, PT [address] [place] [address] [facility] Start: 03-16-2024 End: 03-16-2024 ambulatory 03/16/2024 10:30 AM EST Treatment [facility] [address] [place] [address] Timmy Casarez, PT [address] [place] [address] Arrived [facility] Comment on above: Arrived Start: 03-01-2024 End: 03-01-2024 Follow-up encounter 03/01/2024 10:20 AM EST [facility] [address] [place] [address] [place] [address] [place] [address] follow up Kidney Medicine Comment on above: follow up Start: 02-29-2024 End: 05-30-2024 Lipid 1996 panel - Serum or Plasma LIPID PANEL BASIC Lab Routine Type 2 diabetes mellitus with other circulatory complication, with long-term current use of insulin (HCC) Hyperlipidemia associated with type 2 diabetes mellitus (HCC) (HCC) Expected: 02/29/2024, Expires: 05/30/2024 [facility] Work Phone: Comment on above: Expected: 02/29/2024, Expires: Start: 02-28-2024 End: 02-28-2024 Patient encounter procedure 02/28/2024 12:50 PM EST Office Visit Endocrinology [address] [place] [address] Mikel Barahona APRN.INTERNET MANAGER [address] [facility] [place] [address] 6 month follow up Endocrinology Comment on above: 6 month follow up Start: 02-25-2024 BP Controlled (<130/80) BP Controlled (<130/80) [facility] in Start: 02-22-2024 End: 02-22-2024 ambulatory 02/22/2024 2:30 PM EST Evaluation [facility] [address] [facility] [address] [place] [address] Timmy Casarez, PT [address] [facility] [address] [place] [address] [facility] Start: 02-16-2024 End: 02-16-2024 Patient encounter procedure 02/16/2024 10:30 AM EST Office Visit [facility] [address] [place] [phone] Rocio Moss, PA [address] [facility] [address] [place] [address] Acute pain of left shoulder (Primary Dx); Tendinitis of left rotator cuff [facility] Comment on above: Acute pain of left shoulder (Primary Dx) ; Tendinitis of left rotator cuff Start: 02-10-2024 Influenza vaccination Influenza Vaccine (#1) [facility] Comment on above: Postponed from 12/12/2023 (Patient Does Not Have Time) Start: 02-10-2024 Pneumococcal Vaccine: 65+ Years (2 of 2 - PCV) Pneumococcal Vaccine: 65+ Years (2 of 2 - PCV) [facility] Comment on above: Postponed from 12/13/2020 (Patient Does Not Have Time) Start: 01-19-2024 End: 01-19-2024 Patient encounter procedure 01/19/2024 9:00 AM EDT Office Visit [facility] [address] [place] [address] Radha Little, RAMIRO [address] [place] [address] [facility] Start: 01-17-2024 End: 04-17-2024 Basic metabolic 2000 panel - Serum or Plasma BASIC METABOLIC PANEL Lab Routine Chronic systolic heart failure (HCC) Expected: 01/17/2024, Expires: 04/17/2024 [facility] Work Phone: Comment on above: Expected: 01/17/2024, Expires: 5 Start: 01-03-2024 End: 01-03-2024 Patient encounter procedure Vascular Testing Comment on above: Aortoiliac occlusive disease Start: 12-28-2023 End: 03-28-2024 Comprehensive metabolic 2000 panel - Serum or Plasma COMPREHENSIVE METABOLIC PANEL Lab Routine Chronic systolic congestive heart failure (HCC) Expected: 12/28/2023, Expires: 03/28/2024 [facility] Work Phone: Comment on above: Expected: 12/28/2023, Expires: 4 Start: 12-28-2023 End: 03-28-2024 Natriuretic peptide.B prohormone N-Terminal [Mass/volume] in Serum or Plasma NT PRO BNP Lab Routine Chronic systolic congestive heart failure (HCC) Expected: 12/28/2023, Expires: 03/28/2024 [facility] Comment on above: Expected: 12/28/2023, Expires: 4 Start: 12-28-2023 End: 12-28-2023 Patient encounter procedure Cardiology Comment on above: 4-6 months follow up Start: 12-16-2023 Hepatitis B surface antibody level LDL CHOLESTEROL [facility] Start: 12-12-2023 Covid-19 Vaccine ( season) Covid-19 Vaccine () [facility] Start: 12-12-2023 Covid-19 Vaccine () Covid-19 Vaccine () [facility] Start: 12-12-2023 Influenza vaccination Influenza Vaccine (#1) [facility] Start: 12-06-2023 End: 12-06-2023 Patient encounter procedure 12/06/2023 12:50 PM EDT Office Visit Endocrinology [address] [place] [address] Mikel Barahona APRN.[facility] [address] [place] [address] 6 month follow up Endocrinology Comment on above: 6 month follow up Start: 12-01-2023 Hemoglobin A1c measurement [facility] Start: 11-05-2023 3 comp foot exam completed DIABETIC FOOT EXAM [facility] Start: 11-05-2023 BP CONTROLLED (<130/80) BP CONTROLLED (<130/80) [facility] in Start: 11-05-2023 Diabetic foot examination Diabetic Foot Exam [facility] Start: 10-21-2023 End: 10-21-2023 Patient encounter procedure 10/21/2023 3:00 PM EDT Office Visit Cardiology [address] [place] [address] Chalo Patel DO [address] [place] [address] 4 month follow up Cardiology Comment on above: 4 month follow up Start: 10-11-2023 End: 10-11-2023 Patient encounter procedure 10/11/2023 2:40 PM EDT Office Visit Kidney Medicine [address] [place] [address] [place] [address] [place] [address] Acute Kidney Injury Kidney Medicine Comment on above: Acute Kidney Injury Start: 10-07-2023 End: 10-07-2023 Patient encounter procedure 10/07/2023 1:30 PM EDT Office Visit Cardiology [address] [place] [address] [place] [address] [address] [place], [place] [id number] Follow up Cardiology Comment on above: Follow up Start: 10-07-2023 End: 10-07-2023 Patient encounter procedure Cardiology Comment on above: echo Device check Start: 10-05-2023 End: 07-04-2024 Echocardiography ECHO Cardiology Routine Chronic systolic heart failure (HCC) Expected: 10/05/2023, Expires: 07/04/2024 [facility] Work Phone: Comment on above: Expected: 10/05/2023, Expires: Start: 09-17-2023 End: 12-17-2023 Basic metabolic 2000 panel - Serum or Plasma BASIC METABOLIC PNL Lab Routine Essential hypertension Expected: 09/17/2023 (Approximate), Expires: 12/17/2023 [facility] Work Phone: Comment on above: Expected: 09/17/2023 (Approximate), Expi res: 12/17/2023 Start: 08-10-2023 End: 11-09-2023 Basic metabolic 2000 panel - Serum or Plasma BASIC METABOLIC PANEL Lab Routine Chronic systolic congestive heart failure (HCC) Expected: 08/10/2023, Expires: 11/09/2023 [facility] Work Phone: Comment on above: Expected: 08/10/2023, Expires: Start: 07-29-2023 Hemoglobin A1c measurement HbA1C [facility] Start: 07-29-2023 Hemoglobin A1c/Hemoglobin.total in Blood HbA1C [facility] Start: 07-14-2023 Glaucoma screening Dilated Retinal Exam [facility] Start: 07-14-2023 Hepatitis C antibody, confirmatory test DILATED RETINAL EXAM [facility] Start: 07-05-2023 End: 10-04-2023 Basic metabolic 2000 panel - Serum or Plasma BASIC METABOLIC PNL Lab Routine Chronic systolic heart failure (HCC) Expected: 07/05/2023, Expires: 10/04/2023 [facility] Work Phone: Comment on above: Expected: 07/05/2023, Expires: Start: 07-05-2023 End: 10-04-2023 Natriuretic peptide.B prohormone N-Terminal [Mass/volume] in Serum or Plasma NT PRO BNP Lab Routine Chronic systolic heart failure (HCC) Expected: 07/05/2023, Expires: 10/04/2023 [facility] Work Phone: Comment on above: Expected: 07/05/2023, Expires: Start: 06-17-2023 End: 09-16-2023 Basic metabolic 2000 panel - Serum or Plasma [facility] Work Phone: Comment on above: Expected: 06/17/2023 (Approximate), Expi res: 08/17/2023 Expected: 06/17/2023 , Expires: 09/16/2023 Start: 06-17-2023 End: 08-17-2023 CBC panel - Blood by Automated count CBC Lab Routine Systolic heart failure, unspecified HF chronicity (HCC) Expected: 06/17/2023 (Approximate), Expires: 08/17/2023 [facility] Work Phone: Comment on above: Expected: 06/17/2023 (Approximate), Expi res: 08/17/2023 Start: 06-12-2023 BP CONTROLLED (<130/80) BP CONTROLLED (<130/80) [facility] Start: 06-11-2023 Hepatitis B screening URINE ALBUMIN:CREATININE RATIO [facility] Start: 06-11-2023 Hepatitis B surface antibody level LDL CHOLESTEROL [facility] Start: 06-11-2023 Urine screening for protein Diabetes: Urine Protein Screening [facility] Start: 06-09-2023 End: 09-08-2023 ALBUMIN/CREAT RATIO RND UR ALBUMIN/CREAT RATIO RND UR Lab Routine Type 2 diabetes mellitus with other circulatory complication, with long-term current use of insulin (HCC) Expected: 06/09/2023, Expires: 09/08/2023 [facility] Work Phone: Comment on above: Expected: 06/09/2023, Expires: Start: 06-07-2023 End: 06-07-2023 Patient encounter procedure 06/07/2023 1:00 PM EST Office Visit [facility] [address] [place] [address] Radha Little NP [address] [place] [address] [facility] Start: 05-31-2023 End: 08-30-2023 Basic metabolic 2000 panel - Serum or Plasma BASIC METABOLIC PNL Lab Routine Acute on chronic systolic congestive heart failure (HCC) Expected: 05/31/2023, Expires: 08/30/2023 [facility] Work Phone: Comment on above: Expected: 05/31/2023, Expires: 4 Start: 05-31-2023 End: 08-30-2023 Natriuretic peptide.B prohormone N-Terminal [Mass/volume] in Serum or Plasma NT PRO BNP Lab Routine Acute on chronic systolic congestive heart failure (HCC) Expected: 05/31/2023, Expires: 08/30/2023 [facility] Work Phone: Comment on above: Expected: 05/31/2023, Expires: 4 Start: 05-31-2023 End: 08-30-2023 Thyrotropin [Units/volume] in Serum or Plasma TSH BLD Lab Routine Acute on chronic systolic congestive heart failure (HCC) Expected: 05/31/2023, Expires: 08/30/2023 [facility] Work Phone: Comment on above: Expected: 05/31/2023, Expires: 4 Start: 05-31-2023 End: 08-30-2023 Thyroxine (T4) free [Mass/volume] in Serum or Plasma T4 FREE/FREE THYROX Lab Routine Acute on chronic systolic congestive heart failure (HCC) Expected: 05/31/2023, Expires: 08/30/2023 [facility] Work Phone: Comment on above: Expected: 05/31/2023, Expires: 4 Start: 05-31-2023 End: 08-30-2023 Triiodothyronine (T3) Free [Mass/volume] in Serum or Plasma T3 FREE BLD Lab Routine Acute on chronic systolic congestive heart failure (HCC) Expected: 05/31/2023, Expires: 08/30/2023 [facility] Work Phone: Comment on above: Expected: 05/31/2023, Expires: Start: 05-24-2023 Covid-19 Vaccine () Covid-19 Vaccine () [facility] Start: 05-07-2023 Hemoglobin A1c/Hemoglobin.total in Blood HBA1C [facility] Start: 04-29-2023 Hemoglobin A1c measurement Diabetes: Hemoglobin A1C [facility] Start: 04-12-2023 Advance Directive Discussion Advance Directive Discussion [facility] Start: 04-12-2023 Behavioral Health Screening Behavioral Health Screening [facility] Start: 04-12-2023 Depression Assessment Depression Assessment [facility] Start: 02-25-2023 End: 05-27-2023 Basic metabolic 2000 panel - Serum or Plasma BASIC METABOLIC PNL Lab Routine Nonsustained ventricular tachycardia (HCC) Systolic heart failure, unspecified HF chronicity (HCC) Expected: 02/25/2023, Expires: 05/27/2023 [facility] Work Phone: Comment on above: Expected: 02/25/2023, Expires: Start: 12-12-2022 End: 02-11-2023 Basic metabolic 2000 panel - Serum or Plasma BASIC METABOLIC PNL Lab Routine Essential hypertension Expected: 12/12/2022 (Approximate), Expires: 02/11/2023 [facility] Work Phone: Comment on above: Expected: 12/12/2022 (Approximate), Expi res: 02/11/2023 Start: 12-12-2022 End: 02-11-2023 CBC panel - Blood by Automated count CBC Lab Routine 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 Expected: 12/12/2022 (Approximate), Expires: 02/11/2023 [facility] Work Phone: Comment on above: Expected: 12/12/2022 (Approximate), Expi res: 02/11/2023 Start: 12-12-2022 End: 02-11-2023 Lipid 1996 panel - Serum or Plasma LIPID PANEL BASIC Lab Routine Mixed hyperlipidemia Expected: 12/12/2022 (Approximate), Expires: 02/11/2023 [facility] Work Phone: Comment on above: Expected: 12/12/2022 (Approximate), Expi res: 02/11/2023 Start: 12-11-2022 Hemoglobin A1c/Hemoglobin.total in Blood HBA1C [facility] Start: 12-11-2022 Influenza vaccination INFLUENZA (#1) [facility] Start: 12-05-2022 BP CONTROLLED (<130/80) BP CONTROLLED (<130/80) [facility] Start: 10-07-2022 End: 12-07-2022 Magnesium [Mass/volume] in Serum or Plasma MAGNESIUM BLD Lab Routine Hypomagnesemia Expected: 10/07/2022, Expires: 12/07/2022 [facility] Work Phone: Comment on above: Expected: 10/07/2022, Expires: 3 Start: 09-04-2022 BP CONTROLLED (<130/80) BP CONTROLLED (<130/80) [facility] Start: 08-29-2022 Hepatitis B surface antibody level LDL CHOLESTEROL [facility] Start: 07-25-2022 COVID-19 VACCINE (6 - Pfizer series) COVID-19 VACCINE (6 - Pfizer series) [facility] Start: 06-10-2022 End: 08-10-2022 ALBUMIN/CREAT RATIO RND UR [facility] Work Phone: Comment on above: Expected: 06/10/2022, Expires: 3 Start: 06-10-2022 End: 08-10-2022 Hemoglobin A1c in Blood [facility] Work Phone: Comment on above: Expected: 06/10/2022, Expires: 3 Start: 06-10-2022 End: 08-10-2022 Lipid 1996 panel - Serum or Plasma [facility] Work Phone: Comment on above: Expected: 06/10/2022, Expires: 3 Start: 06-10-2022 End: 05-01-2023 Thyrotropin [Units/volume] in Serum or Plasma [facility] Work Phone: Comment on above: Expected: 06/10/2022, Expires: Start: 06-10-2022 End: 08-10-2022 Urinalysis complete panel - Urine [facility] Work Phone: Comment on above: Expected: 06/10/2022, Expires: Start: 06-07-2022 End: 08-07-2022 Basic metabolic 2000 panel - Serum or Plasma BASIC METABOLIC PNL Lab Routine 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 Expected: 06/07/2022 (Approximate), Expires: 08/07/2022 [facility] Work Phone: Comment on above: Expected: 06/07/2022 (Approximate), Expi res: 08/07/2022 Start: 06-07-2022 End: 08-07-2022 CBC panel - Blood by Automated count CBC Lab Routine 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 Expected: 06/07/2022 (Approximate), Expires: 08/07/2022 [facility] Work Phone: Comment on above: Expected: 06/07/2022 (Approximate), Expi res: 08/07/2022 Start: 04-12-2022 ADVANCE DIRECTIVE DISCUSSION ADVANCE DIRECTIVE DISCUSSION [facility] Start: 04-12-2022 DEPRESSION ASSESSMENT DEPRESSION ASSESSMENT [facility] Start: 02-27-2022 BP CONTROLLED (<130/80) BP CONTROLLED (<130/80) [facility] Start: 12-11-2021 Influenza vaccination [facility] Start: 10-16-2021 COVID-19 VACCINE (5 - Booster for Pfizer series) COVID-19 VACCINE (5 - Booster for Pfizer series) [facility] Start: 2021 RSV Vaccine (1 - 1-dose 75+ series) RSV Vaccine (1 - 1-dose 75+ series) [facility] Start: 09-18-2021 Adult depression screening assessment DEPRESSION SCREENING [facility] Start: 08-14-2021 Hepatitis B surface antibody level LDL CHOLESTEROL [facility] Start: 04-12-2021 ADVANCE DIRECTIVE DISCUSSION ADVANCE DIRECTIVE DISCUSSION [facility] Start: 04-12-2021 DEPRESSION ASSESSMENT DEPRESSION ASSESSMENT [facility] Start: 02-14-2021 Hemoglobin A1c/Hemoglobin.total in Blood HBA1C [facility] Start: 12-13-2020 Pneumococcal Vaccine: 50+ (2 of 2 - PCV) Pneumococcal Vaccine: 50+ (2 of 2 - PCV) [facility] Start: 12-13-2020 Pneumococcal Vaccine: 65+ (2 - PCV) Pneumococcal Vaccine: 65+ (2 - PCV) [facility] Start: 12-13-2020 Pneumococcal Vaccine: 65+ (2 of 2 - PCV) Pneumococcal Vaccine: 65+ (2 of 2 - PCV) [facility] Start: 12-13-2020 Pneumococcal Vaccine: 65+ Years (2 - PCV) Pneumococcal Vaccine: 65+ Years (2 - PCV) [facility] Start: 12-13-2020 Pneumococcal Vaccine: 65+ Years (2 of 2 - PCV) Pneumococcal Vaccine: 65+ Years (2 of 2 - PCV) [facility] Start: 11-02-2020 COVID-19 VACCINE (3 - Booster for Pfizer series) COVID-19 VACCINE (3 - Booster for Pfizer series) [facility] Start: 10-17-2020 Hepatitis B screening URINE ALBUMIN:CREATININE RATIO [facility] Start: 07-08-2018 Mammography MAMMOGRAM [facility] Start: 03-22-2018 Colonoscopy COLONOSCOPY [facility] Start: 03-22-2018 COLORECTAL CANCER SCREENING COLORECTAL CANCER SCREENING [facility] Start: 11-21-2014 Shingrix Vaccine (2 of 3) Shingrix Vaccine (2 of 3) [facility] Start: 09-27-2011 BONE DENSITY BONE DENSITY [facility] Start: 09-27-2011 Bone Density Screening Bone Density Screening [facility] Start: 09-27-2011 PNEUMOVAX AGE 65 AND OVER WITH 5YR LOOKBACK (#1) PNEUMOVAX AGE 65 AND OVER WITH 5YR LOOKBACK (#1) [facility] Start: 09-27-2011 Screening for osteoporosis Bone Density Screening [facility] Start: 2006 Hepatitis B Vaccine (1 of 3 - Risk 3-dose series) Hepatitis B Vaccine (1 of 3 - Risk 3-dose series) [facility] Start: 2006 RSV Vaccine (1 - 1-dose 60+ series) RSV Vaccine (1 - 1-dose 60+ series) [facility] Start: 1996 SHINGRIX VACCINE (1 of 2) SHINGRIX VACCINE (1 of 2) [facility] Start: 09-27-1991 COLOGUARD (FIT-DNA) COLOGUARD (FIT-DNA) [facility] Start: 09-27-[address] COLONOGRAPHY [facility] Start: 09-27-1991 FECAL OCCULT BLOOD FECAL OCCULT BLOOD [facility] Start: 09-27-1991 SIGMOIDOSCOPY SIGMOIDOSCOPY [facility] Start: 1965 Urine microalbumin profile [facility] Start: 1964 ANNUAL PCP TEAM CHRONIC DISEASE VISIT ANNUAL PCP TEAM CHRONIC DISEASE VISIT [facility] Start: 1964 Anxiety Screening Anxiety Screening [facility] Start: 1964 BP CONTROLLED (<130/80) BP CONTROLLED (<130/80) [facility] Start: 1964 Depression Screening Depression Screening [facility] Start: 1964 HEPATITIS C SCREENING HEPATITIS C SCREENING [facility] Start: 1964 Hepatitis C screening Hepatitis C Screening [facility] Start: 1956 3 comp foot exam completed DIABETIC FOOT EXAM [facility] Start: 1956 Hepatitis C antibody, confirmatory test DILATED RETINAL EXAM [facility] Start: 1952 PNEUMOCOCCAL: 65+ (1 - PCV) PNEUMOCOCCAL: 65+ (1 - PCV) [facility] Start: 1946 Medicare Annual Wellness (AWV) Medicare Annual Wellness (AWV) [facility] Start: 1946 Screening for malignant neoplasm of colon 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 1 Occurrences starting 12/17/2022 until 12/18/2023 [facility] Work Phone: Comment on above: 1 Occurrences starting 12/17/2022 until 12/18/2023 ECG COMPLETE ECG COMPLETE ECG 12/17/2022 11:10 AM EDT [facility] ECG COMPLETE ECG COMPLETE ECG Routine HFrEF (heart failure with reduced ejection fraction) (HCC) Ischemic cardiomyopathy Ordered: 06/17/2023 [facility] Work Phone: Comment on above: Ordered: 06/17/2023 ECG COMPLETE ECG COMPLETE ECG 07/15/2023 1:28 PM EDT [facility] ECG COMPLETE [facility] Work Phone: Comment on above: Ordered: 10/07/2023 ECG COMPLETE ECG COMPLETE ECG 06/26/2024 2:06 PM EDT [facility] End: 06-12-2023 ECHO LIMITED ECHO LIMITED Cardiology Routine Systolic heart failure, unspecified HF chronicity (HCC) Dyspnea, unspecified type 1 Occurrences starting 06/11/2022 until 06/12/2023 [facility] Work Phone: Comment on above: 1 Occurrences starting 06/11/2022 until 06/12/2023 End: 09-04-2022 Echocardiography ECHO Cardiology Routine Chest discomfort 1 Occurrences starting 09/04/2021 until 09/04/2022 [facility] Work Phone: Comment on above: 1 Occurrences starting 09/04/2021 until 09/04/2022 End: 12-27-2024 Echocardiography ECHO Cardiology Routine Chronic systolic congestive heart failure (HCC) 1 Occurrences starting 12/28/2023 until 12/27/2024 [facility] Comment on above: 1 Occurrences starting 12/28/2023 until 12/27/2024 End: 09-25-2022 HOME SLEEP APNEA TEST (HSAT) HOME SLEEP APNEA TEST (HSAT) Procedures Routine Obstructive sleep apnea syndrome Essential hypertension Cardiomyopathy, unspecified type (HCC) Class 1 obesity due to excess calories with serious comorbidity and body mass index (BMI) of 32.0 to 32.9 in adult 1 Occurrences starting 09/25/2021 until 09/25/2022 [facility] Work Phone: Comment on above: 1 Occurrences starting 09/25/2021 until 09/25/2022 End: 08-02-2024 HOME SLEEP APNEA TEST (HSAT) HOME SLEEP APNEA TEST (HSAT) Procedures Routine Obstructive sleep apnea syndrome Essential hypertension 1 Occurrences starting 08/03/2023 until 08/02/2024 [facility] Work Phone: Comment on above: 1 Occurrences starting 08/03/2023 until 08/02/2024 End: 10-04-2022 NM CARDIAC PERF STRESS/PHARM NM CARDIAC PERF STRESS/PHARM Radiology Routine Chest discomfort 1 Occurrences starting 09/04/2021 until 10/04/2022 [facility] Work Phone: Comment on above: 1 Occurrences starting 09/04/2021 until 10/04/2022 Protein/Creatinine [ Mass Ratio] in Urine PROTEIN / CREATININE RATIO Lab Routine Stage 3b chronic kidney disease (HCC) 10/11/2023 4:03 PM EDT [facility] Work Phone: End: 09-04-2022 PVR LEG W/EXC PHIL VAS LAB PVR LEG W/EXC PHIL VAS LAB Vascular Lab Routine Hyperlipidemia associated with type 2 diabetes mellitus ([facility]) History of axillobifemoral bypass graft 1 Occurrences starting 09/04/2021 until 09/04/2022 [facility] Work Phone: Comment on above: 1 Occurrences starting 09/04/2021 until 09/04/2022 End: 11-29-2024 US Lower extremity artery US LEG ARTERIAL PERIPH UNL VAS LAB Vascular Lab Routine PAD (peripheral artery disease) ([facility]) 1 Occurrences starting 11/30/2023 until 11/29/2024 [facility] Work Phone: Comment on above: 1 Occurrences starting 11/30/2023 until 11/29/2024 End: 01-02-2025 US Lower extremity artery US LEG ARTERIAL PERIPH UNL VAS LAB Vascular Lab Routine PAD (peripheral artery disease) ([facility]) 1 Occurrences starting 01/03/2024 until 01/02/2025 [facility] Work Phone: Comment on above: 1 Occurrences starting 01/03/2024 until 01/02/2025 End: 11-29-2024 US.doppler Extremity arteries - bilateral for physiologic artery study PVR ANK PRESS PHIL VAS LAB Vascular Lab Routine PAD (peripheral artery disease) ([facility]) 1 Occurrences starting 11/30/2023 until 11/29/2024 [facility] Comment on above: 1 Occurrences starting 11/30/2023 until 11/29/2024 End: 01-02-2025 US.doppler Extremity arteries - bilateral for physiologic artery study PVR ANK PRESS PHIL VAS LAB Vascular Lab Routine PAD (peripheral artery disease) (HCC) 1 Occurrences starting 01/03/2024 until 01/02/2025 [facility] Comment on above: 1 Occurrences starting 01/03/2024 until 01/02/2025 [facility] Immunizations Immunization Date Immunization Notes Care Provider [facility] 02-24-2024 influenza, high dose seasonal, preservative-free Radha Little EMERGING TECHNOLOGIES DIRECTOR Work Phone: [facility] 02-24-2024 SARS-COV-2 (COVID-19 ) vaccine, mRNA, spike protein, LNP, PF, 50 mcg/0.5 mL Radha Little EMERGING TECHNOLOGIES DIRECTOR Work Phone: [facility] 01-21-2023 Influenza, High-dose Seasonal, Quadrivalent, Preservative Free Generic Provider [facility] 01-21-2023 influenza virus vacc ine, unspecified formulation Mikel Barahona ASPHALT SURFACE HEATER OPERATOR.INTERNET MANAGER Work Phone: [facility] 02-27-2022 Influenza, High-dose Seasonal, Quadrivalent, Preservative Free Generic Provider [facility] 02-17-2021 Influenza, High-dose Seasonal, Quadrivalent, Preservative Free Generic Provider [facility] 12-14-2019 Influenza, High-dose Seasonal, Quadrivalent, Preservative Free Generic Provider [facility] 12-14-2019 pneumococcal polysaccharide vaccine, 23 valent Generic Provider [facility] 01-11-2019 Seasonal trivalent influenza vaccine, adjuvanted, preservative free Generic Provider [facility] 02-12-2018 influenza, high dose seasonal, preservative-free Generic Provider [facility] 02-26-2017 influenza, injectabl e, quadrivalent, contains preservative Chalo Patel DO Work Phone: [facility] 02-26-2017 Seasonal trivalent influenza vaccine, adjuvanted, preservative free Generic Provider [facility] 02-01-2015 influenza, high dose seasonal, preservative-free Generic Provider [facility] 2014 zoster vaccine, live Generic Provide r [facility] 03-27-2014 influenza, seasonal, injectable Generic Provider [facility] 03-27-2014 zoster vaccine, live Generic Provide r [facility] 09-27-2013 pneumococcal polysaccharide vaccine, [address] [facility] 01-25-2013 influenza, seasonal, injectable Generic Provider [facility] Payers Date Payer Category Payer Private Health Insurance [id number] 2019 Unknown 2019 Unknown MMO MMO MEDICARE SUPPLEMENT [id number] 2019-Present [phone] [address] [place] [address] Indemnity [id number] 2011 Medicare [id number] 2011 Medicare [id number]. [id number] 1959 Medicare [id number] 1959 Self-pay [id number] 1959 Unknown [id number] 1946 Unknown [id number] 2.16.840.1.160181.3.579.2. 593 1946 Unknown [id number] 2.16.840.1.826608.3.579.2. 593 1946 Unknown [id number] 2.16.840.1.483336.3.579.2. 182 1946 Unknown [id number] 2.16.840.1.302199.3.579.2. 1286 1946 Unknown [id number] 2.16.840.1.236035.3.579.2. 1286 1946 Unknown [id number] 2.16.840.1.342981.3.579.2. 1259 1946 Unknown [id number] 2.16.840.1.994097.3.579.2. 1259 1946 Unknown [id number] 2.16.840.1.777172.3.579.2. 1259 1946 Unknown [id number] 2.16.840.1.031977.3.579.2. 1259 1946 Unknown [id number] 2.16.840.1.173053.3.579.2. 1259 1946 Unknown [id number] 2.16.840.1.882212.3.579.2. 1259 1946 Unknown [id number] 2.16.840.1.569992.3.579.2. 1259 1946 Unknown [id number] 2.16.840.1.339191.3.579.2. 1259 1946 Unknown [id number] 2.16.840.1.306047.3.579.2. 1259 1946 Unknown [id number] 2.16.840.1.961590.3.579.2. 1286 1946 Unknown [id number] 2.16.840.1.412969.3.579.2. 1286 1946 Unknown [id number] 2.16.840.1.525634.3.579.2. 1286 1946 Unknown [id number] 2.16.840.1.875267.3.579.2. 1286 1946 Unknown [id number] 2.16.840.1.488348.3.579.2. 1286 1946 Unknown [id number] 2.16.840.1.246514.3.579.2. 1286 1946 Unknown [id number] 2.16.840.1.729655.3.579.2. 1286 1946 Unknown [id number] 2.16.840.1.634838.3.579.2. 1286 1946 Unknown [id number] 2.16.840.1.457719.3.579.2. 1286 1946 Unknown [id number] 2.16.840.1.872106.3.579.2. 1286 Unknown [id number] 2.16.840.1.907846.3.579.2. 593 Social History Date Type Detail Facility Start: 12-05-2021 End: 02-16-2023 Tobacco smoking status NHIS Ex-smoker [facility] Start: 02-27-2021 End: 06-26-2024 Alcohol intake Ex-drinker (finding) [facility] Start: 01-03-2020 History SDOH Financial 5 [facility] Start: 01-03-2020 History SDOH Food Worry 1 [facility] Start: 01-03-2020 History SDOH Transpo rt Med 2 [facility] Start: 1945 Sex Assigned At Female C [facility] Start: 08-12-2020 End: 12-05-2021 Exposure to SARS-CoV-2 (event) Not sure [facility] History of tobacco use Current smoker [facility] Start: 12-05-2021 End: 02-16-2023 Tobacco use and exposure Smokeless tobacco non-user [facility] Start: 12-05-2021 Tobacco Comment quit at 36. [facility] Start: 08-07-2022 End: 11-04-2022 History of Social function [facility] Start: 08-07-2022 End: 11-04-2022 Tobacco use panel [facility] How hard is it for y ou to pay for the very basics like food, housing, medical care, and heating Not hard at all [facility] (I/We) worried mane er (my/our) food would run out before (I/we) got money to buy more. Never true [facility] Start: 05-08-2019 Gender identity Identifies as female gender (finding) [facility] Start: 05-08-2019 Sexual orientation Heterosexual (joel blackwell) [facility] In the past 12 month s, was there a time when you were not able to pay the mortgage or rent on time? No [facility] Start: 02-16-2023 Tobacco Comment Social for juan odell 1 year around age 36 [facility] History of tobacco use Cigarette Smoker [facility] Start: 04-08-2023 End: 08-02-2024 Alcohol intake Current drinker of alcohol (finding) [facility] Start: 03-24-2023 Tobacco Comment Last smoked: >[address] [facility] Start: 03-24-2023 Alcohol Comment 1-2 drinks mon thly or less, caffeine 1-[address] [facility] Start: 1945 Sex Assigned At Not on file [facility] Medical Equipment Procedure Code Equipment Code Equipment Origin al Text Equipment Identifier Dates Graft [place] 8mm Thin Wall Heparin Propaten Ptfe 80cm 70cm Vascular Removable - [id number] Start: 01-02-2020 [id number], [id number] Start: 01-27-2023 End: 06-15-2023 Comment on above: BD Ultra-Fine Rubia P en Needle 32 gauge x 5/32 Use as instructed Use as instructed to monitor glucose. One touch ultra verio test strips. [id number] Lionel lt Xt Hf Quad Science Manager-D [id number] Start: 06-30-2023 [id number] Capsurefix Novus [id number] Start: 06-30-2023 [id number] Elloit in Stability Quad Mri Surescan [id number] Start: 06-30-2023 [id number] Sprchandrakant Chatman [id number] Start: 06-30-2023 Goals Date Patient Goal Desired Activity /State Personal health goal Functional Status Date Assessment Result Facility 07-01-2023 Are you deaf, or do you have serious difficulty hearing No 07/01/2023 10:51 AM EDT Anay Agee RN No [facility] 07-01-2023 Are you blind, or do you have serious difficulty seeing, even when wearing glasses No 07/01/2023 10:51 AM EDT Anay Agee RN No [facility] 07-01-2023 Do you have serious difficulty walking or climbing stairs No 07/01/2023 10:51 AM EDT Anay Agee RN [facility] 07-01-2023 Do you have difficul ty dressing or bathing No 07/01/2023 10:51 AM EDT Anay Agee RN No [facility] 07-01-2023 Because of a physica l, mental, or emotional condition, do you have difficulty doing errands alone such as visiting a physician's office or shopping No 07/01/2023 10:51 AM EDT Anay Agee RN [facility] Mental Status Date Assessment Result Facility 07-01-2023 Because of a physica l, mental, or emotional condition, do you have serious difficulty concentrating, remembering, or making decisions No 07/01/2023 10:51 AM EDT Anay Agee RN [facility] Clinical Notes 07-21-2021 to 08-21-2024 Telephone Encounter - Tenisha Shepard RN - 08/21/2024 2:50 PM EDTTelephone Encounter - Tenisha Shepard RN - 08/21/2024 2:50 PM EDTTelephone Encounter - Radha Little NP - 08/18/2024 10:12 AM EDT Note Date & Type Note Facility 08-21-2024 Telephone encounter Note I called pt to review information as noted per Dr. Strange. Pt denies any potassium supplements. Pt endorses bilat foot edema, and some weight gain. Pt denies shortness of breath. I gave pt education for low/medium potassium foods (with follow up chart on [facility].) I gave pt education for furosemide 20mg prescription as written (one tablet daily as needed.) Pt will update office in one week with edema/wts. Pt confirmed understanding. [facility] 08-21-2024 Miscellaneous Notes I called pt to review information as noted per Dr. Strange. Pt denies any potassium supplements. Pt endorses bilat foot edema, and some weight gain. Pt denies shortness of breath. I gave pt education for low/medium potassium foods (with follow up chart on [facility].) I gave pt education for furosemide 20mg prescription as written (one tablet daily as needed.) Pt will update office in one week with edema/wts. Pt confirmed understanding. documented in this encounter [facility] 08-18-2024 Telephone encounter Note Spoke to pt: pain constant, worse at night, burning feeling No NVD Reviewed scan with her We will order liver US at [facility] consult for cirrhosis ??may be related to heart failure Will trial steroids for 5 days to see if helps pain as it may be thoracic or lumbar etiology More pain meds Has appt on 08/22/[address] [place] [facility] 08-18-2024 Miscellaneous Notes Spoke to pt: pain constant, worse at night, burning feeling No NVD Reviewed scan with her We will order liver US at [facility] consult for cirrhosis ??may be related to heart failure Will trial steroids for 5 days to see if helps pain as it may be thoracic or lumbar etiology More pain meds Has appt on 08/22/24 [place] documented in this encounter [facility] 08-02-2024 History of Present illness Narrative Associated Problem(s): Heart failure with reduced ejection fraction (CMS/HCC) Reviewed and updated med list Cont w cardiology Associated Problem(s): Primary hypertension (CMS/HCC) Please check blood pressure daily and record DASH diet Limit caffeine Take medication as directed Contact office if chest pain, pressure, dizziness, shortness of breath, swelling legs Recommend slow position changes Current meds: arb, b genia, diuretic, Associated Problem(s): Allergic rhinitis Could also have overlap with this as well Associated Problem(s): URI, acute No resp distress, and does not appear heart failure related Will order doxy bid for 10 days Continue with OTC meds, if not better in next 5-7 days call office Also add tessalon pearls as well Pt started with symptoms Wednesday night symptoms included watery/itchy eyes, headaches, body aches, no sinus pressure, skin and eyes hurt, runny nose, no stuffy nose, no sore throat, coughing clear phlegm, no chest pain, no fever, chills, no sweats, no vomiting, coughing caused nausea, loss of apatite, still has taste and smell, achiness, weakness. Pt is concerned about her heart and if this is straining it. Images from the original note were not included. Arleth Elias is a 78 y.o. female presents with chief complaint of Cough HPI: Pt started with symptoms Wednesday night symptoms included watery/itchy eyes, headaches, body aches, no sinus pressure, skin and eyes hurt, runny nose, no stuffy nose, no sore throat, coughing clear phlegm, no chest pain, no fever, chills, no sweats, no vomiting, coughing caused nausea, loss of apatite, still has taste and smell, achiness, weakness. Pt is concerned about her heart and if this is straining it. Cough This is a new problem. The current episode started in the past 7 days. The problem has been waxing and waning. The problem occurs constantly. The cough is Productive of sputum. Associated symptoms include myalgias, nasal congestion, postnasal drip and rhinorrhea. Pertinent negatives include no chest pain, chills, ear congestion, ear pain, eye redness, fever, headaches, hemoptysis, rash, sore throat, shortness of breath or wheezing. Nothing aggravates the symptoms. She has tried OTC cough suppressant for the symptoms. The treatment provided no relief. Her past medical history is significant for environmental allergies. There is no history of asthma, COPD or emphysema. SUBJECTIVE: MEDICATIONS: Current Outpatient Medications Medication Instructions allopurinol (ZYLOPRIM) 100 mg, Oral, Daily aspirin 81 mg, Daily benzonatate (TESSALON) 200 mg, Oral, 3 times daily PRN, Do not crush or chew. clopidogrel (PLAVIX) 75 mg, Daily doxycycline (VIBRA-TABS) 100 mg, Oral, 2 times daily, Take with a full glass of water and do not lie down for at least 30 minutes after. empagliflozin (Jardiance) 10 MG Take by mouth ergocalciferol (Vitamin D2) 1.25 MG (37109 UT) capsule 1 capsule, Weekly fluticasone (Flonase) 50 MCG/ACT nasal spray 2 sprays, Each Nostril, Daily, Shake gently. Before first use, prime pump. After use, clean tip and replace cap. magnesium oxide (MAG-OX) 400 mg, Daily metoprolol succinate XL (TOPROL-XL) 50 mg, 2 times daily Ozempic (2 MG/DOSE) 2 mg, Every 7 days rosuvastatin (CRESTOR) 40 mg, Daily Semaglutide,0.25 or 0.5MG/DOS, (Ozempic, 0.25 or 0.5 MG/DOSE,) 2 MG/3ML solution pen-injector Weekly valsartan (DIOVAN) 20 mg, Daily ALLERGIES: Allergies Allergen Reactions Barium-Containing Compounds Anaphylaxis IV DYE medicate prior to Iodinated Contrast Media Other Unknown Penicillins REVIEW OF SYMPTOMS: Review of Systems Constitutional: Negative for appetite change, chills and fever. HENT: Positive for postnasal drip and rhinorrhea. Negative for congestion, ear pain and sore throat. Eyes: Negative for pain, discharge, redness and visual disturbance. Respiratory: Positive for cough. Negative for hemoptysis, shortness of breath and wheezing. Cardiovascular: Negative for chest pain, palpitations and leg swelling. Gastrointestinal: Negative for abdominal pain, blood in stool, constipation, diarrhea, nausea and vomiting. Genitourinary: Negative for difficulty urinating, dysuria and frequency. Musculoskeletal: Positive for myalgias. Negative for arthralgias, back pain and joint swelling. Skin: Negative for rash and wound. Neurological: Negative for dizziness, tremors, seizures, syncope and headaches. Psychiatric/Behavioral: Negative for behavioral problems, self-injury and suicidal ideas. The patient is not nervous/anxious. Hematological: Does not bruise/bleed easily. Endocrine: Negative for polydipsia, polyphagia and polyuria. Allergic/Immunologic: Positive for environmental allergies. Negative for food allergies. PAST MEDICAL HISTORY Past Medical History: Diagnosis Date Abnormal kidney function Allergic rhinitis 06/07/2023 Aortic atherosclerosis ([facility]) 06/07/2023 Arthralgia CAD (coronary artery disease) ([facility]) 06/07/2023 Cervical pain (neck) Disc displacement, lumbar Diverticulitis Diverticulosis 06/07/2023 Dry eyes 06/07/2023 Edema of extremities 06/07/2023 Elevated blood uric acid level 04/08/2023 Environmental and seasonal allergies 06/07/2023 Epigastric pain Fatigue 06/07/2023 Generalized anxiety disorder with panic attacks ([facility]) 03/24/2023 Gout Heart failure with reduced ejection fraction ([facility]) Hypomagnesemia 06/07/2023 Lumbar back pain with radiculopathy affecting lower extremity 06/07/2023 Panic attacks (CMS/HCC) 06/07/2023 Protruded lumbar disc L4/5 disc 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 Seborrheic keratoses Thyroid nodule (CMS/HCC) Type 2 diabetes mellitus without complication, with long-term current use of insulin 04/06/2023 Urinary incontinence 06/07/2023 Past Surgical History: Procedure Laterality Date APPENDECTOMY CHOLECYSTECTOMY FEMORAL BYPASS 01/02/2020 axillo-bifemoral bypass at [facility] OTHER SURGICAL HISTORY BTL TOTAL ABDOMINAL HYSTERECTOMY W/ BILATERAL SALPINGOOPHORECTOMY family history includes COPD in her sibling; Cancer in her father; Diabetes in her father and sibling; Heart disease in her mother and sibling; Hypertension in her mother and sibling; Lung disease in her father; Stroke in her mother. OBJECTIVE: Visit Vitals BP 130/68 (BP Location: Left arm, Patient Position: Sitting, BP Cuff Size: Adult long) Pulse 88 Temp 98.3 F (Temporal) Resp 18 Wt 161 lb SpO2 95% BMI 25.99 kg/m Smoking Status Former BSA 1.84 m Physical Exam Vitals and nursing note reviewed. Constitutional: General: She is not in acute distress. Appearance: Normal appearance. HENT: Head: Normocephalic and atraumatic. Right Ear: Tympanic membrane, ear canal and external ear normal. There is impacted cerumen. Left Ear: Tympanic membrane, ear canal and external ear normal. There is impacted cerumen. Ears: Comments: Cerumen large chunk removed w spatula Nose: Congestion and rhinorrhea present. Mouth/Throat: Mouth: Mucous membranes are moist. Pharynx: No oropharyngeal exudate or posterior oropharyngeal erythema. Eyes: Extraocular Movements: Extraocular movements intact. Conjunctiva/sclera: Conjunctivae normal. Cardiovascular: Rate and Rhythm: Normal rate and regular rhythm. Pulses: Normal pulses. Heart sounds: Normal heart sounds. Pulmonary: Effort: Pulmonary effort is normal. Breath sounds: Normal breath sounds. No wheezing or rhonchi. Abdominal: General: Bowel sounds are normal. There is no distension. Palpations: Abdomen is soft. There is no mass. Tenderness: There is no abdominal tenderness. Musculoskeletal: General: Normal range of motion. Cervical back: Normal range of motion and neck supple. Right lower leg: No edema. Left lower leg: No edema. Lymphadenopathy: Cervical: No cervical adenopathy. Skin: General: Skin is warm and dry. Capillary Refill: Capillary refill takes 2 to 3 seconds. Findings: No rash. Neurological: General: No focal deficit present. Mental Status: She is alert and oriented to person, place, and time. Psychiatric: Mood and Affect: Mood normal. Behavior: Behavior normal. Thought Content: Thought content normal. Judgment: Judgment normal. ASSESSMENT AND PLAN: Follow up for Next scheduled follow-up. Problem List Items Addressed This Visit Primary hypertension ([facility]) Please check blood pressure daily and record DASH diet Limit caffeine Take medication as directed Contact office if chest pain, pressure, dizziness, shortness of breath, swelling legs Recommend slow position changes Current meds: arb, b genia, diuretic, Heart failure with reduced ejection fraction ([facility]) Reviewed and updated med list Cont w cardiology Allergic rhinitis Could also have overlap with this as well URI, acute - Primary No resp distress, and does not appear heart failure related Will order doxy bid for 10 days Continue with OTC meds, if not better in next 5-7 days call office Also add tessalon pearls as well Relevant Medications benzonatate (Tessalon) 200 MG capsule doxycycline (Vibra-Tabs) 100 MG tablet documented in this encounter [facility] 08-02-2024 Instructions Radha Little NP - 08/02/2024 11:45 AM EDT Doxycycline: 100mg twice a day for 10 days, ask pharmacist about when to take this in relationship to your magnesium Benzonate 200mg : 1 every 8 hours as needed for cough Fluids, rest, follow up if not better documented in this encounter [facility] 06-26-2024 Instructions Stanley Strange MD - 06/26/2024 1:51 PM EDT Thank you for your visit. It was great to see you today! PLEASE READ ALL THE INSTRUCTIONS Medication changes: Increase toprol XL to 50mg twice a day Blood tests: labs in 1 month Referral to other specialties: Additional Testing: Follow up Visit: 8-9 months. Other instructions: Engage in 30 minutes of continuous exercise at least 4 days per week if you can tolerate Please take your blood pressures, heart rate, and weight daily. Please notify us via Reelation if your Systolic BP (top number) < [...] heart kidney injury risk Please send a [employer] message or call with any questions or concerns: Outpatient Number: [phone] Thank you, Stanley Strange MD [facility] [place] [address] documented in this encounter [facility] 06-26-2024 Note HNO ID: [id number] Author: STANLEY STRANGE MD Service: ? Author Type: Physician Type: Progress Notes Filed: 06/26/2024 14:33 Note Text: [facility] [place] [facility] SECTION OF HEART FAILURE and CARDIAC TRANSPLANT MEDICINE [facility] OUTPATIENT VISIT DATE June 26, 2024 OUTPATIENT VISIT TYPE Established PRIMARY CARE PHYSICIAN: Radha Little, GUALBERTO ([facility]) [address] [place] [address] CHIEF COMPLAINT: Follow Up HISTORY OF PRESENT ILLNESS: Arleth Elias is a 78 year old female with a medical history that includes heart failure with recovered LVEF (25% --> 61%) and newly reduced again, CAD now s/p PCI to LAD 02/2023, HTN, HLD PVD s/p right axillobifemoral bypass 12/2019, DM who follows with Dr. Patel. Established with mo May 2023 She has a hx of NICM since 2018, LVEF ana maria 35%, ischemic work up [...] lesion, + iFR s/p PCI with TRACY. Interval History: Arleth Elias was last seen in this clinic on 12/28/23. Since the last visit Arleth Elias, followed with Dr. Patel and was doing well. Today comes in by herself and reports feeling well. 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 No chest pain/pressure/discomfort, no orthopnea, no PND, no LE edema, no dyspnea on exertion, no syncope/ No LH. 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 Echo 04/10/24 Echo: LVEF 32%, LV mild dilated, RVSP ?RVSF wnl, Echo 10/04/23: LVEF 25%, LVEDD 5.4cm. RVSF wnl S/p TAIL DOGGER-D 07/02/23 Echo 05/25/23: LVEF 20%, LVEDd 6.1cm, severe MR/TR, IVC dilated. Echo 02/2023: LVEF 30%, RV wnl. LVEdd 5.8cm. CAD s/p PCI to mLAD with TRACY 02/2023 PVD s/p right axillobifemoral bypass 12/2019- seeing Dr. Arroyo DM: HTN PAST MEDICAL HISTORY Diagnosis Date Cardiomyopathy (HCC) [...] year around age 36 Vaping Use Vaping status: Never Used Substance Use Topics Alcohol use: Not Currently [...] 1 tablet by mouth daily with breakfast. semaglutide (OZEMPIC) 2 mg/dose (8 mg/3 mL) pen injector Inject 2 mg subcutaneously one time a week. ergocalciferol 50,000 unit capsule (VITAMIN D2, DRISDOL) Take 1 capsule by mouth one time a week. rosuvastatin (CRESTOR) 40 mg tablet Take 1 tablet by mouth daily at bedtime. valsartan (DIOVAN) 40 mg tablet Take 0.5 tablets by mouth once daily. clopidogrel (PLAVIX) 75 mg tablet Take 1 tablet by mouth every 24 hours. spironolactone (ALDACTONE) 25 mg tablet Take 0.5 tablets by mouth once daily. omeprazole (PRILOSEC) 40 mg capsule Take 40 mg by mouth two times a day. Pt confirmed she is taking this medication magnesium oxide (MAG-OX) 400 mg (241.3 mg magnesium) tablet TAKE 1 TABLET BY MOUTH TWICE DAILY. TAKE SEPERATELY FROM DOXYCYCLINE aspirin, enteric coated (ASPIRIN, ENTERIC COATED) 81 mg EC tablet Take 81 mg by mouth once daily. allopurinol (ZYLOPRIM) 100 mg tablet Take 100 mg by mouth once daily. metoprolol succinate ER (TOPROL XL) 50 mg 24 hr tablet Take 1 tablet by mouth two times a day. furosemide (LASIX) 20 mg tablet Take 1 tablet by mouth once daily as needed. diazePAM (VALIUM) 2 mg tablet blood sugar diagnostic (BLOOD GLUCOSE TEST) test strip Use as instructed to monitor glucose. One touch ultra verio test strips. Blood-Glucose Sensor (FREESTYLE LEEANN 3 SENSOR) mauricio Use new sensor every 14 days to monitor blood glucose. Insulin [place], Disposable, (BD ULTRA-FINE RUBIA PEN NEEDLE) 32 gauge x 5/32 ndle BD Ultra-Fine Rubia Pen Needle 32 gauge x 5/32 fluticasone (FLONASE) 50 mcg/actuation nasal spray fluticasone propionate 50 mcg/actuation nasal spray,suspension REVIEW OF SYSTEMS: (more content not included)... [facility] 06-26-2024 History of Present illness Narrative Images from the original note were not included. [facility] [place] [facility] SECTION OF HEART FAILURE and CARDIAC TRANSPLANT MEDICINE [facility] OUTPATIENT VISIT DATE June 26, 2024 OUTPATIENT VISIT TYPE Established PRIMARY CARE PHYSICIAN: Radha Little, INTERNET MANAGER ([facility]) [address] [place] [address] CHIEF COMPLAINT: Follow Up HISTORY OF PRESENT ILLNESS: Arleth Elias is a 78 year old female with a medical history that includes heart failure with recovered LVEF (25% --> 61%) and newly reduced again, CAD now s/p PCI to LAD 02/2023, HTN, HLD PVD s/p right axillobifemoral bypass 12/2019, DM who follows with Dr. Patel. Established with mo May 2023 She has a hx of NICM since 2018, LVEF ana maria 35%, ischemic work up [...] lesion, + iFR s/p PCI with TRACY. Interval History: Arleth Elias was last seen in this clinic on 12/28/23. Since the last visit Arleth Elias, followed with Dr. Patel and was doing well. Today comes in by herself and reports feeling well. 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 No chest pain/pressure/discomfort, no orthopnea, no PND, no LE edema, no dyspnea on exertion, no syncope/ No LH. 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 Echo 04/10/24 Echo: LVEF 32%, LV mild dilated, RVSP ?RVSF wnl, Echo 10/04/23: LVEF 25%, LVEDD 5.4cm. RVSF wnl S/p TAIL DOGGER-D 07/02/23 Echo 05/25/23: LVEF 20%, LVEDd 6.1cm, severe MR/TR, IVC dilated. Echo 02/2023: LVEF 30%, RV wnl. LVEdd 5.8cm. CAD s/p PCI to mLAD with TRACY 02/2023 PVD s/p right axillobifemoral bypass 12/2019- seeing Dr. Arroyo DM: HTN PAST MEDICAL HISTORY Diagnosis Date Cardiomyopathy (HCC) [...] year around age 36 Vaping Use Vaping status: Never Used Substance Use Topics Alcohol use: Not Currently [...] 1 tablet by mouth daily with breakfast. semaglutide (OZEMPIC) 2 mg/dose (8 mg/3 mL) pen injector Inject 2 mg subcutaneously one time a week. ergocalciferol 50,000 unit capsule (VITAMIN D2, DRISDOL) Take 1 capsule by mouth one time a week. rosuvastatin (CRESTOR) 40 mg tablet Take 1 tablet by mouth daily at bedtime. valsartan (DIOVAN) 40 mg tablet Take 0.5 tablets by mouth once daily. clopidogrel (PLAVIX) 75 mg tablet Take 1 tablet by mouth every 24 hours. spironolactone (ALDACTONE) 25 mg tablet Take 0.5 tablets by mouth once daily. omeprazole (PRILOSEC) 40 mg capsule Take 40 mg by mouth two times a day. Pt confirmed she is taking this medication magnesium oxide (MAG-OX) 400 mg (241.3 mg magnesium) tablet TAKE 1 TABLET BY MOUTH TWICE DAILY. TAKE SEPERATELY FROM DOXYCYCLINE aspirin, enteric coated (ASPIRIN, ENTERIC COATED) 81 mg EC tablet Take 81 mg by mouth once daily. allopurinol (ZYLOPRIM) 100 mg tablet Take 100 mg by mouth once daily. metoprolol succinate ER (TOPROL XL) 50 mg 24 hr tablet Take 1 tablet by mouth two times a day. furosemide (LASIX) 20 mg tablet Take 1 tablet by mouth once daily as needed. diazePAM (VALIUM) 2 mg tablet blood sugar diagnostic (BLOOD GLUCOSE TEST) test strip Use as instructed to monitor glucose. One touch ultra verio test strips. Blood-Glucose Sensor (FREESTYLE LEEANN 3 SENSOR) mauricio Use new sensor every 14 days to monitor blood glucose. Insulin [place], Disposable, (BD ULTRA-FINE RUBIA PEN NEEDLE) 32 gauge x 5/32 ndle BD Ultra-Fine Rubia Pen Needle 32 gauge x 5/32 fluticasone (FLONASE) 50 mcg/actuation nasal spray fluticasone propionate 50 mcg/actuation nasal spray,suspension REVIEW OF SYSTEMS: 10 point review of systems completed and negative unless mentioned above. PATIENT ENTERED DATA: No data to display 09/18/2020 01/20/2022 08/02/2023 PHQ-9 Score 9 2 2 11/01/2022 01/21/2023 08/02/2023 PROMIS Global Health - (T-Scores - the mean of general population = 50. Five points is a clinically meaningful difference.) Physical T-Score 37.4 37.4 47.7 Mental T-Score 41.1 41.1 59 PHYSICAL EXAMINATION: BP 145/82 Pulse 82 Wt 157 lb 3 oz (71.3kg) SpO2 99[RA]% General: well developed, well nourished female in no acute distress. Neck: supple, no carotid bruits. JVD <6 cm H2O. Cardiac: Regular rate and rhythm. Normal S1 and S2. No S3 or S4. No murmurs or gallops. Lungs: Good inspiratory effort, breath sounds equal. Clear to auscultation bilaterally. No wheezing, rhonchi or rales. Abdominal: soft, nontender, non-distended. Normal bowel sounds. Extremities: Edema : none. Normal Gait. Pulses: normal radial and posterior tibial artery pulses. Normal capillary refill. Skin: Warm to touch. No clubbing or cyanosis. Neuro: awake, oriented with no focal neurological deficit. Psychiatric: appropriate mood and affect for her clinical situation. CARDIOVASCULAR MEDICINE TESTING: I personally reviewed the following testing. EKG: A sensed V paced. Echo 03/2024 The left ventricle is mildly dilated. Left ventricular systolic function is moderately decreased. EF = 32 5% (2D biplane) Definity contrast used for endocardial border detection. - The right ventricle is normal in size. Right ventricular systolic function is normal. Visual EF 25-29% less MR and TR is seen - Exam was compared with the prior echocardiographic exam performed on 10/07/23: improvement in MR and TR ; EF quantitative is slightly higher ; Device Eval: 03/10/24 TAIL DOGGER-D * Normal Device Function * Alerts or events: None * Battery: 10.17 yrs * Sensing, impedance and thresholds appropriate * Programmed parameters reviewed * Presenting rhythm /LVP * Heart Rate Histograms appropriate * No significant changes noted * AP 0.1% TAIL DOGGER 98% (of which Adpt TAIL DOGGER: LV only 94% and BivP 6% * Looks to benefit from increasing max tracking to 130 bpm LABS ADONAY High Sensitivity 17 02/16/2023 ADONAY [...] , EDVIN GDMT: - BB: toprol XL 50mgAM/ 25mg PM - ACEI/ARB/ARNI: valsartan 20mg daily - MRA: aldactone 12.5mg daily - SGLT2: jardiance 10mg - Vasodilators: - Device: - Cardiomems: - Other: crestor 40mg daily, lasix 20mg daily, aspirin and plavix. IMPRESSION and PLAN/Recommendation In summary, Arleth Elias is a 78 year old being managed today for the following issues: 1.Non-ischemic Cardiomyopathy/chronic systolic heart failure: NYHA functional class II, Stage C heart failure, Clinical Class B - warm and euvolemic. Etiology: non-ischemic with CAD. GDMT: as above except stop lasix 20mg daily --> prn, increase toprol XL to 50mg BID given BP. Labs 05/22/24 reviewed: Cr 1.8, K 4.9, NT pro 569 Will follow up in 1 month and attempt to increase other meds. 2. CAD s/p PCI with TRACY to mLAD 02/[address] Patel : on plavix, aspirin and crestor 40 LDL 12/2022 33. Goal <70 will check with follow up labs. 3. Pulmonary HTN: likely due to group 2. 4. MR: Improved 5. DAV on CKD: Cr baseline 1.3-1.4. Labs from May Cr 1.8 6. LBBB s/p TAIL DOGGER-D Thank you for allowing me to participate in the care of your patient. I will continue to follow up with Arleth Elias in my heart failure clinic with plans to see her back in 8-9 months. In the interim do not hesitate to reach out to me with questions or concerns. Discussed the treatment plan with the patient and the potential impacts of HF care on the patient's overall well-being and cardiovascular health care maintenance. We also discussed the risks of the patient not following the treatment plan as outlined. We discussed natural history of disease, current treatment options, and future potential treatment options. We discussed diet, exercise, other non-medical management as above. Stanley Strange MD Advanced Heart Failure and Transplant [facility] [place] [address] Appointment: [phone] documented in this encounter [facility] 06-05-2024 Telephone encounter Note Patient has been identified by name and date of : Yes Pharmacy electronically sent a request for the following prescription(s) If there are any questions regarding this prescription request, call at home at: [phone] (home) [phone] (cell) RX INSTRUCTIONS: Patient aware RX will be sent to pharmacy. No need to notify patient. Date of last office visit: 04/24/2024 Date of last [facility] visit: Visit date not found Date of future office visit: 06/26/2024 Requested Prescriptions Pending Prescriptions Disp Refills empagliflozin (JARDIANCE) 10 mg tablet 90 tablet 3 Sig: Take 1 tablet by mouth daily with breakfast. Prescriptions are usually addressed within 24-48 business hours. If patient states they cannot wait 24-48 business hours, please document details. Last 2 Encounter Wt Readings: Date: Wt: 04/24/2024 70 kg (154 lb 5.2 oz) 02/28/2024 70.1 kg (154 lb 8.7 oz) Last 2 Encounter BP Readings: Date: BP: 04/24/2024 122/80 02/28/2024 125/65 CMP: Glucose 186 05/22/2024 BUN 40 05/22/2024 Creatinine 1.83 05/22/2024 Sodium 138 05/22/2024 Potassium 4.9 05/22/2024 Chloride 101 05/22/2024 CO2 27 05/22/2024 Protein, Total 6.8 01/03/2024 Albumin 4.3 05/22/2024 Calcium 9.8 05/22/2024 Alkaline Phosphatase 135 01/03/2024 Bilirubin, Total 0.5 01/03/2024 AST 19 01/03/2024 ALT 10 01/03/2024 Cholesterol, Total (mg/dL) Date Value 12/15/2022 103 06/10/2022 100 08/14/2020 119 10/18/2019 132 HDL Cholesterol (mg/dL) Date Value 12/15/2022 41 06/10/2022 38 08/14/2020 47 10/18/2019 57 LDL Cholesterol (mg/dL) Date Value 12/15/2022 33 06/10/2022 37 08/14/2020 43 10/18/2019 59 Triglyceride (mg/dL) Date Value 12/15/2022 145 06/10/2022 124 08/14/2020 144 10/18/2019 79 Gilles Healy MA [facility] 06-05-2024 Miscellaneous Notes Patient has been identified by name and date of : Yes Pharmacy electronically sent a request for the following prescription(s) If there are any questions regarding this prescription request, call at home at: [phone] (home) [phone] (cell) RX INSTRUCTIONS: Patient aware RX will be sent to pharmacy. No need to notify patient. Date of last office visit: 04/24/2024 Date of last [facility] visit: Visit date not found Date of future office visit: 06/26/2024 Requested Prescriptions Pending Prescriptions Disp Refills empagliflozin (JARDIANCE) 10 mg tablet 90 tablet 3 Sig: Take 1 tablet by mouth daily with breakfast. Prescriptions are usually addressed within 24-48 business hours. If patient states they cannot wait 24-48 business hours, please document details. Last 2 Encounter Wt Readings: Date: Wt: 04/24/2024 70 kg (154 lb 5.2 oz) 02/28/2024 70.1 kg (154 lb 8.7 oz) Last 2 Encounter BP Readings: Date: BP: 04/24/2024 122/80 02/28/2024 125/65 CMP: Glucose 186 05/22/2024 BUN 40 05/22/2024 Creatinine 1.83 05/22/2024 Sodium 138 05/22/2024 Potassium 4.9 05/22/2024 Chloride 101 05/22/2024 CO2 27 05/22/2024 Protein, Total 6.8 01/03/2024 Albumin 4.3 05/22/2024 Calcium 9.8 05/22/2024 Alkaline Phosphatase 135 01/03/2024 Bilirubin, Total 0.5 01/03/2024 AST 19 01/03/2024 ALT 10 01/03/2024 Cholesterol, Total (mg/dL) Date Value 12/15/2022 103 06/10/2022 100 08/14/2020 119 10/18/2019 132 HDL Cholesterol (mg/dL) Date Value 12/15/2022 41 06/10/2022 38 08/14/2020 47 10/18/2019 57 LDL Cholesterol (mg/dL) Date Value 12/15/2022 33 06/10/2022 37 08/14/2020 43 10/18/2019 59 Triglyceride (mg/dL) Date Value 12/15/2022 145 06/10/2022 124 08/14/2020 144 10/18/2019 79 Gilles Healy MA documented in this encounter [facility] 05-16-2024 Telephone encounter Note Patient assistance medication received Ozempic-4bxs Patient notified 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 [facility] 05-16-2024 Miscellaneous Notes Patient assistance medication received Ozempic-4bxs Patient notified 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 Author Type: Physician Type: Progress Notes Filed: 04/24/2024 11:01 Note Text: [facility] [place] SECTION OF REGIONAL CARDIOLOGY April 24, 2024 Outpatient VISIT TYPE Established PRIMARY CARE PHYSICIAN: Grayson Vega DO [address] [place] [address] HISTORY OF PRESENT ILLNESS: Ms. Elias is a 78 year old female with a past medical history of [employer] TAIL DOGGER-D placed 06/30/2023, chronic systolic heart failure EF on last echo 25%, nonischemic cardiomyopathy, CAD status post [facility] on 06/07/2019 with 50-70% stenosis of the mid LAD, HTN, HLD, PVD sp right axillobifemoral bypass graft on 01/02/20 for severe aortic stenosis at the level of the renal arteries, DM, diverticulitis, ankle pain. She was seen last by me on10/21/2303/05/2024, per that note: ... TAIL DOGGER-D was placed 06/30/2023. She was seen last by Dr. Polk on 10/07/2023 where metoprolol was increased. She was seen by Dr. Strange on 07/27/23 and will follow-up in around 4 months. ...she tells me that she is feeling much better now. She is walking a mile at least 3x a week now and states that she couln't walk to the mailbox previous to having the TAIL DOGGER placed. She lost weight since starting ozempic and now states that he weight is stable over the last 3 months. She tells me that she had diarrhea while on metformin yet, now since is on ozempic and doing ell. She denies having any: chest pain, palpitations, shortness of breath, orthopnea, LE edema, presyncope/syncope, N/V, bleeding, or other significant symptoms. Was seen last by Dr. Strange on 12/28/2023, she was doing well at that time. She recommended starting spironolactone 12.5 mg daily. Today, she tells me that she feels good. She is walking now. She is doing great on ozempic and jardiance. She denies having any: chest pain, palpitations, [...] use any drugs. She is now walking a mile at the [facility]. She states that it takes her 28 minutes. Family, father had cancer. Mother was in her early 60s with CABG and a pacemaker. 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 IMPRESSION: Encounter Diagnosis ICD-10-CM 1. HFrEF (heart failure with reduced ejection fraction) ([facility]) I50.20 2. Other cardiomyopathy ([facility]) I42.8 3. 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 I25.10 rosuvastatin (CRESTOR) 40 mg tablet valsartan (DIOVAN) 40 mg tablet 4. Primary hypertension I10 BASIC METABOLIC PANEL 5. Essential hypertension I10 valsartan (DIOVAN) 40 mg tablet 6. Mixed hyperlipidemia E78.2 rosuvastatin (CRESTOR) 40 mg tablet 7. Hyperlipidemia associated with type 2 diabetes mellitus (HCC) ([facility]) E11.69 E78.5 8. Nonrheumatic mitral valve regurgitation I34.0 9. Presence of cardiac resynchronization therapy defibrillator (TAIL DOGGER-D) Z95.810 10. H/O aorto-femoral bypass Z95.828 11. ERASMO (obstructive sleep apnea) G47.33 PLAN AND RECOMMENDATIONS: Chronic systolic heart failure with LVEF 25% now post TAIL DOGGER-D. Continue GDMT as detailed by heart failure, currently blood pressure appears to be borderline low: Continue metoprolol XL 50 mg daily Continue Furosemide 40 mg twice daily Continue valsartan 20 mg daily Continue spironolactone 12.5mg daily Jardiance 10 mg daily Cre is elevated yet, stable. We will discuss her symptoms at next visit and consider if further titration is necessary at next visit. CAD with sp PCI to LAD 02/2023. continue cardiac medications at this time. Continue cardiac medications: Aspirin plus Plavix, beta genia, statin. She can decrease DAPT if OK with vascular surgery. Goal blood pressure less than 130/80 mmHg. [...] re-evaluated after further optimization with heart failure. TAIL DOGGER-D in situ and appears to be functioning [...] of pertinent positives described in HPI PHYSICAL EXAMINATI (more content not included)... [facility] 04-24-2024 History of Present illness Narrative Images from the original note were not included. [facility] [place] SECTION OF REGIONAL CARDIOLOGY April 24, 2024 Outpatient VISIT TYPE Established PRIMARY CARE PHYSICIAN: Grayson Vega, DO [address] [place] [address] HISTORY OF PRESENT ILLNESS: Ms. Elias is a 78 year old female with a past medical history of [employer] TAIL DOGGER-D placed 06/30/2023, chronic systolic heart failure EF on last echo 25%, nonischemic cardiomyopathy, CAD status post [facility] on 06/07/2019 with 50-70% stenosis of the mid LAD, HTN, HLD, PVD sp right axillobifemoral bypass graft on 01/02/20 for severe aortic stenosis at the level of the renal arteries, DM, diverticulitis, ankle pain. She was seen last by me on10/21/2303/05/2024, per that note: ... TAIL DOGGER-D was placed 06/30/2023. She was seen last by Dr. Polk on 10/07/2023 where metoprolol was increased. She was seen by Dr. Strange on 07/27/23 and will follow-up in around 4 months. ...she tells me that she is feeling much better now. She is walking a mile at least 3x a week now and states that she couln't walk to the mailbox previous to having the TAIL DOGGER placed. She lost weight since starting ozempic and now states that he weight is stable over the last 3 months. She tells me that she had diarrhea while on metformin yet, now since is on ozempic and doing ell. She denies having any: chest pain, palpitations, shortness of breath, orthopnea, LE edema, presyncope/syncope, N/V, bleeding, or other significant symptoms. Was seen last by Dr. Strange on 12/28/2023, she was doing well at that time. She recommended starting spironolactone 12.5 mg daily. Today, she tells me that she feels good. She is walking now. She is doing great on ozempic and jardiance. She denies having any: chest pain, palpitations, [...] use any drugs. She is now walking a mile at the [facility]. She states that it takes her 28 minutes. Family, father had cancer. Mother was in her early 60s with CABG and a pacemaker. 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 IMPRESSION: Encounter Diagnosis ICD-10-CM 1. HFrEF (heart failure with reduced ejection fraction) ([facility]) I50.20 2. Other cardiomyopathy ([facility]) I42.8 3. 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 I25.10 rosuvastatin (CRESTOR) 40 mg tablet valsartan (DIOVAN) 40 mg tablet 4. Primary hypertension I10 BASIC METABOLIC PANEL 5. Essential hypertension I10 valsartan (DIOVAN) 40 mg tablet 6. Mixed hyperlipidemia E78.2 rosuvastatin (CRESTOR) 40 mg tablet 7. Hyperlipidemia associated with type 2 diabetes mellitus ([facility]) ([facility]) E11.69 E78.5 8. Nonrheumatic mitral valve regurgitation I34.0 9. Presence of cardiac resynchronization therapy defibrillator (TAIL DOGGER-D) Z95.810 10. H/O aorto-femoral bypass Z95.828 11. ERASMO (obstructive sleep apnea) G47.33 PLAN AND RECOMMENDATIONS: Chronic systolic heart failure with LVEF 25% now post TAIL DOGGER-D. Continue GDMT as detailed by heart failure, currently blood pressure appears to be borderline low: Continue metoprolol XL 50 mg daily Continue Furosemide 40 mg twice daily Continue valsartan 20 mg daily Continue spironolactone 12.5mg daily Jardiance 10 mg daily Cre is elevated yet, stable. We will discuss her symptoms at next visit and consider if further titration is necessary at next visit. CAD with sp PCI to LAD 02/2023. continue cardiac medications at this time. Continue cardiac medications: Aspirin plus Plavix, beta genia, statin. She can decrease DAPT if OK with vascular surgery. Goal blood pressure less than 130/80 mmHg. [...] re-evaluated after further optimization with heart failure. TAIL DOGGER-D in situ and appears to be functioning [...] in HPI PHYSICAL EXAMINATION: via telephone BP 122/80 Pulse 72 Wt 70 kg (154 lb 5.2 oz) SpO2 100% BMI 24.91 kg/m Gen.: No apparent distress, obese HEENT: [...] rare (<1.0%). Isolated VEs were occasional (1.9%, 62670), VE Couplets were rare (<1.0%, 2064), and VE Triplets were rare (<1.0%, 32). Ventricular Bigeminy and Trigeminy were present. 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 Cardiac Catheterization 06/08/2019: LM : normal Mid LAD : 50--70% cx : see initial cath TAIL DOGGER-D interrogation-10/07/23 * Normal Device Function * Alerts or events: None * Battery: OK, 10.58 yrs * Sensing, impedance and thresholds reviewed and tested * Presenting Rhythm: /LV paced * Underlying Rhythm: Sinus rhythm * Heart Rate Histograms reviewed Latest Reference Range & Units 04/24/24 08:12 Sodium 136 - 144 mmol/L 137 Potassium 3.7 - 5.1 mmol/L 5.2 (H) Chloride 98 - 107 mmol/L 102 CO2 22 - 30 mmol/L 23 BUN 7 - 21 mg/dL 48 (H) Creatinine 0.58 - 0.96 mg/dL 1.85 (H) Glucose 74 - 99 mg/dL 111 (H) Calcium 8.5 - 10.2 mg/dL 9.6 Anion Gap 8 - 15 mmol/L 12 eGFR >=60 mL/min/1.73m 28 (L) (H): Data is abnormally high (L): Data is abnormally low Hemoglobin (g/dL) Date Value 04/21/2024 12.8 08/14/2020 11.7 Hematocrit (%) Date Value 04/21/2024 38.8 08/14/2020 39.2 WBC (k/uL) Date Value 04/21/2024 7.06 08/14/2020 8.08 PAST MEDICAL HISTORY Diagnosis Date [...] year around age 36 Vaping Use Vaping status: Never Used Substance Use Topics Alcohol use: Not Currently Drug use: Never FAMILY HISTORY Problem Relation Age of Onset other (cabg) Mother other (pacemaker) Mother Diabetes Father Lung Cancer Father COPD Brother ALLERGIES Allergen Reactions Penicillins Anaphylaxis, Hives Iodinated Contrast * Other: See Comments Throat itching to some Xray dye >20-30 years ago CURRENT MEDICATIONS: furosemide (LASIX) 20 mg tablet Take 1 tablet by mouth once daily. clopidogrel (PLAVIX) 75 mg tablet Take 1 tablet by mouth every 24 hours. spironolactone (ALDACTONE) 25 mg tablet Take 0.5 tablets by mouth once daily. omeprazole (PRILOSEC) 40 mg capsule Take 40 mg by mouth two times a day. Pt confirmed she is taking this medication magnesium oxide (MAG-OX) 400 mg (241.3 mg magnesium) tablet TAKE 1 TABLET BY MOUTH TWICE DAILY. TAKE SEPERATELY FROM DOXYCYCLINE metoprolol succinate ER (TOPROL XL) 25 mg 24 hr tablet Take 1 tablet by mouth as directed. 50 mg AM and 25 mg PM empagliflozin (JARDIANCE) 10 mg tablet Take 1 tablet by mouth daily with breakfast. blood sugar diagnostic (BLOOD GLUCOSE TEST) test strip Use as instructed to monitor glucose. One touch ultra verio test strips. Blood-Glucose Sensor (FREESTYLE LEEANN 3 SENSOR) mauricio Use new sensor every 14 days to monitor blood glucose. aspirin, enteric coated (ASPIRIN, ENTERIC COATED) 81 mg EC tablet Take 81 mg by mouth once daily. Insulin [place], Disposable, (BD ULTRA-FINE RUBIA PEN NEEDLE) 32 gauge x 5/32 ndle BD Ultra-Fine Rubia Pen Needle 32 gauge x 5/32 allopurinol (ZYLOPRIM) 100 mg tablet Take 100 mg by mouth once daily. fluticasone (FLONASE) 50 mcg/actuation nasal spray fluticasone propionate 50 mcg/actuation nasal spray,suspension rosuvastatin (CRESTOR) 40 mg tablet Take 1 tablet by mouth daily at bedtime. valsartan (DIOVAN) 40 mg tablet Take 0.5 tablets by mouth once daily. semaglutide (OZEMPIC) 2 mg/dose (8 mg/3 mL) pen injector Inject 2 mg subcutaneously one time a week. diazePAM (VALIUM) 2 mg tablet documented in this encounter [facility] 04-20-2024 Telephone encounter Note Called and spoke to patient. Scheduled for 04/24/24 at [facility] in [place]. Aware of date, time, and location. [facility] 04-20-2024 Miscellaneous Notes Called and spoke to patient. Scheduled for 04/24/24 at [facility] in [place]. Aware of date, time, and location. Please see if patient can come 04/28/24 in the access slot that's left or 330 pm that is being held for wait list Arleth is calling Chalo Patel DO today. She had to cancel her 04/26/24 as has a surgery that day. Next available is 08/10/24 which she took, however, asking if there is any way to be added to his schedule sooner? Declines JUAN, only wants Dr Patel. If possibly of seeing him sooner, please reach out. Patient has been identified by name and birthdate. Duration of symptoms: N/A Person calling: self Call patient at: on cell [phone] (home) [phone] (cell) Was an appointment scheduled: Yes: Date/Time: 08/10/24 Closing statement: Results or non-symptom based questions: Thank you for calling [facility], your call will be returned within the next business day. Anila Green Pss documented in this encounter [facility] 04-20-2024 Telephone encounter Note Please see if patient can come 04/28/24 in the access slot that's left or 330 pm that is being held for wait list [facility] 04-20-2024 Telephone encounter Note Arleth is calling Chalo Patel DO today. She had to cancel her 04/26/24 as has a surgery that day. Next available is 08/10/24 which she took, however, asking if there is any way to be added to his schedule sooner? Declines JUAN, only wants Dr Patel. If possibly of seeing him sooner, please reach out. Patient has been identified by name and birthdate. Duration of symptoms: N/A Person calling: self Call patient at: on cell [phone] (home) [phone] (cell) Was an appointment scheduled: Yes: Date/Time: 08/10/24 Closing statement: Results or non-symptom based questions: Thank you for calling [facility], your call will be returned within the next business day. Anila Green Pss [facility] 04-10-2024 Note HNO ID: [id number] Author: DWIGHT NORTH RN Service: ? Author Type: Registered Nurse Type: Progress Notes Filed: 04/10/2024 10:31 Note Text: IV Access: IV IV Site: right Antecubital IV GAUGE 24 gauge IV Removal Date April 10, 2024 Time 10:30 AM Reactions: WNL Order reviewed by nurse:yes Medications: Definity - dosage 2mL Reaction: No LOT: [id number] EXP: 12/11/24 [facility] #[id number] MFG: [employer] [facility] 04-10-2024 History of Present illness Narrative IV Access: IV IV Site: right Antecubital IV GAUGE 24 gauge IV Removal Date April 10, 2024 Time 10:30 AM Reactions: WNL Order reviewed by nurse:yes Medications: Definity - dosage 2mL Reaction: No LOT: [id number] EXP: 12/11/24 [facility] #[id number] MFG: [employer] documented in this encounter [facility] 03-30-2024 History of Present illness Narrative Physical Therapy Treatment Visit Patient Name: Arleth Elias Today's Date: 03/30/2024 Encounter Diagnoses Name Primary? Acute pain of left shoulder Yes Adhesive capsulitis of left shoulder Visit number: 5 Timed Code Treatment Minutes: 40 minutes Total Treatment Time: 46 minutes Time In: 1000 Time Out: 1046 History: Pt. Presents to PT with c/c of left shoulder pain and decrease shoulder ROM which started several years ago but on 06/30/23 she had a pacemaker put in which really caused her shoulder to freeze up on her. Pt. Reports she is unable to perform daily tasks with her left shoulder due to pain and decreased ROM. Difficulty getting dressed, style hair and household activities. No injection. X-ray and MRI results in chart. Precautions: PACEMAKER 2023 Subjective: pt. Reports she is able to move her shoulder better. Less pain today. Pain: 4/10 today Objective: PT Evaluation (02/22/24) Left shoulder AROM: 90 deg flexion and abduction, IR behind back: buttock, ER left ear Left shoulder PROM: 140 deg flexion and abduction, IR 45 deg, ER 50 deg Joint: moderate hypomobility in left shoulder Strength: 3-/5 in all planes Palpation: TTP lateral deltoid area Treatment: PT evaluation (minutes) Education: HEP education with demonstration, Educated on Eval Findings and POC Manual Therapy: (26 minutes) Passive ROM, Joint mobilization, Soft Tissue Mobilization, Myofascial Release, Muscle Energy Technique, Neural Mobilization, Myofascial Cupping, Dry Needling, IASTM, and Scar mobilization Therapeutic Exercise: (14 minutes) exercises in grid; Strength, Endurance, Flexibility, ROM, HEP, Neural Mobilization, Power, and Core Stability Therapeutic Activity: Exercises to improve dynamic activities, functional tasks, functional mobility to return to prior activity level Neuromuscular re-education: Balance Training, Muscle Facilitation, Dynamic Stability, Core Stabilization, and Blood Flow Restriction Training (BFRT) Modalities: DO NOT RECOMMEND; pacemaker Assessment: Pt. Has participated in 5 PT session with start of POC on 02/21 for left frozen shoulder. Pt. Will benefit from skilled PT services. Pt. Demonstrates 130 degrees of active shoulder flexion today. MFR helps to decrease shoulder soreness/pain. PT treatment helping to improve her functional mobility. Outcome Measure: Short Term Goal: To be met in 2 weeks Goal 1: Pt to be instructed in home exercise program. [facility] Goals: To be met in 10 weeks Goal 1: Pt to report independence and compliance with home program. Goal 2: Pt. Will report of 2/10 or less left shoulder pain while reaching/lifting objects overhead to help improve her quality of life. Goal 3: Pt. Will demonstrate normal left shoulder muscle flexibility to help her achieve full functional left shoulder ROM to perform daily tasks. Goal 4: Pt. Will demonstrate 160 degrees or greater left shoulder AROM in flexion and abduction to help her achieve full functional mobility to perform daily tasks. Goal 5: Pt. Will demonstrate 4+/5 or greater left shoulder strength to allow her to lift/carry objects to help improve her quality of life. Goal 6: Pt. Will score 50 or greater on UEFS to help improve her quality of life. Pt will benefit from skilled PT for 1-3x/week from 02/22/24 to 05/02/24 to address the above impairments. I hereby deem this POC medically necessary. Please sign below. Date: documented in this encounter [facility] 03-27-2024 History of Present illness Narrative Physical Therapy Treatment Visit Patient Name: Arleth Elias Today's Date: 03/27/2024 Encounter Diagnoses Name Primary? Acute pain of left shoulder Yes Adhesive capsulitis of left shoulder Visit number: 4 Timed Code Treatment Minutes: 38 minutes Total Treatment Time: 44 minutes Time In: 1000 Time Out: 1044 History: Pt. Presents to PT with c/c of left shoulder pain and decrease shoulder ROM which started several years ago but on 06/30/23 she had a pacemaker put in which really caused her shoulder to freeze up on her. Pt. Reports she is unable to perform daily tasks with her left shoulder due to pain and decreased ROM. Difficulty getting dressed, style hair and household activities. No injection. X-ray and MRI results in chart. Precautions: PACEMAKER 2023 Subjective: pt. Reports of 7/10 shoulder pain today. Increased difficulty reaching overhead. Pain: 7/10 today Objective: PT Evaluation (02/22/24) Left shoulder AROM: 90 deg flexion and abduction, IR behind back: buttock, ER left ear Left shoulder PROM: 140 deg flexion and abduction, IR 45 deg, ER 50 deg Joint: moderate hypomobility in left shoulder Strength: 3-/5 in all planes Palpation: TTP lateral deltoid area Treatment: PT evaluation (minutes) Education: HEP education with demonstration, Educated on Eval Findings and POC Manual Therapy: (15 minutes) Passive ROM, Joint mobilization, Soft Tissue Mobilization, Myofascial Release, Muscle Energy Technique, Neural Mobilization, Myofascial Cupping, Dry Needling, IASTM, and Scar mobilization Therapeutic Exercise: (23 minutes) exercises in grid; Strength, Endurance, Flexibility, ROM, HEP, Neural Mobilization, Power, and Core Stability Therapeutic Activity: Exercises to improve dynamic activities, functional tasks, functional mobility to return to prior activity level Neuromuscular re-education: Balance Training, Muscle Facilitation, Dynamic Stability, Core Stabilization, and Blood Flow Restriction Training (BFRT) Modalities: DO NOT RECOMMEND; pacemaker Assessment: Pt. Has participated in 4 PT session with start of POC on 02/21 for left frozen shoulder. Pt. Will benefit from skilled PT services. Pt demonstrates TTP to anterior shoulder over biceps muscle. PROM is limited to 130 degrees in flexion and 120 in abduction today. Outcome Measure: Short Term Goal: To be met in 2 weeks Goal 1: Pt to be instructed in home exercise program. Senior Care Goals: To be met in 10 weeks Goal 1: Pt to report independence and compliance with home program. Goal 2: Pt. Will report of 2/10 or less left shoulder pain while reaching/lifting objects overhead to help improve her quality of life. Goal 3: Pt. Will demonstrate normal left shoulder muscle flexibility to help her achieve full functional left shoulder ROM to perform daily tasks. Goal 4: Pt. Will demonstrate 160 degrees or greater left shoulder AROM in flexion and abduction to help her achieve full functional mobility to perform daily tasks. Goal 5: Pt. Will demonstrate 4+/5 or greater left shoulder strength to allow her to lift/carry objects to help improve her quality of life. Goal 6: Pt. Will score 50 or greater on UEFS to help improve her quality of life. Pt will benefit from skilled PT for 1-3x/week from 02/22/24 to 05/02/24 to address the above impairments. I hereby deem this POC medically necessary. Please sign below. Date: documented in this encounter [facility] 03-22-2024 History of Present illness Narrative Physical Therapy Treatment Visit Patient Name: Arleth Elias Today's Date: 03/22/2024 Encounter Diagnoses Name Primary? Acute pain of left shoulder Yes Adhesive capsulitis of left shoulder Visit number: 3 Timed Code Treatment Minutes: 38 minutes Total Treatment Time: 44 minutes Time In: 1050 Time Out: 1134 History: Pt. Presents to PT with c/c of left shoulder pain and decrease shoulder ROM which started several years ago but on 06/30/23 she had a pacemaker put in which really caused her shoulder to freeze up on her. Pt. Reports she is unable to perform daily tasks with her left shoulder due to pain and decreased ROM. Difficulty getting dressed, style hair and household activities. No injection. X-ray and MRI results in chart. Precautions: PACEMAKER 2023 Subjective: pt. Reports she is able to reach overhead better and with less shoulder pain. Slow progress but overall is feeling better. Pain: 2-3/10 today Objective: PT Evaluation (02/22/24) Left shoulder AROM: 90 deg flexion and abduction, IR behind back: buttock, ER left ear Left shoulder PROM: 140 deg flexion and abduction, IR 45 deg, ER 50 deg Joint: moderate hypomobility in left shoulder Strength: 3-/5 in all planes Palpation: TTP lateral deltoid area Treatment: PT evaluation (20 minutes) Education: HEP education with demonstration, Educated on Eval Findings and POC Manual Therapy: (15 minutes) Passive ROM, Joint mobilization, Soft Tissue Mobilization, Myofascial Release, Muscle Energy Technique, Neural Mobilization, Myofascial Cupping, Dry Needling, IASTM, and Scar mobilization Therapeutic Exercise: (23 minutes) exercises in grid; Strength, Endurance, Flexibility, ROM, HEP, Neural Mobilization, Power, and Core Stability Therapeutic Activity: Exercises to improve dynamic activities, functional tasks, functional mobility to return to prior activity level Neuromuscular re-education: Balance Training, Muscle Facilitation, Dynamic Stability, Core Stabilization, and Blood Flow Restriction Training (BFRT) Modalities: DO NOT RECOMMEND; pacemaker Assessment: Pt. Has participated in 3 PT session with start of POC on 02/21 for left frozen shoulder. Pt. Will benefit from skilled PT services. Pt. Tolerated band exercises well. Pt. Was given band to perform scapular resistance exercises at home. Continues to demonstrate improve shoulder AROM/PROM since start of PT. Outcome Measure: Short Term Goal: To be met in 2 weeks Goal 1: Pt to be instructed in home exercise program. Senior Care Goals: To be met in 10 weeks Goal 1: Pt to report independence and compliance with home program. Goal 2: Pt. Will report of 2/10 or less left shoulder pain while reaching/lifting objects overhead to help improve her quality of life. Goal 3: Pt. Will demonstrate normal left shoulder muscle flexibility to help her achieve full functional left shoulder ROM to perform daily tasks. Goal 4: Pt. Will demonstrate 160 degrees or greater left shoulder AROM in flexion and abduction to help her achieve full functional mobility to perform daily tasks. Goal 5: Pt. Will demonstrate 4+/5 or greater left shoulder strength to allow her to lift/carry objects to help improve her quality of life. Goal 6: Pt. Will score 50 or greater on UEFS to help improve her quality of life. Pt will benefit from skilled PT for 1-3x/week from 02/22/24 to 05/02/24 to address the above impairments. I hereby deem this POC medically necessary. Please sign below. Date: documented in this encounter [facility] 03-16-2024 History of Present illness Narrative Physical Therapy Treatment Visit Patient Name: Arleth Elias Today's Date: 03/16/2024 Encounter Diagnoses Name Primary? Acute pain of left shoulder Yes Adhesive capsulitis of left shoulder Visit number: 2 Timed Code Treatment Minutes: 40 minutes Total Treatment Time: 50 minutes Time In: 1025 Time Out: 1120 History: Pt. Presents to PT with c/c of left shoulder pain and decrease shoulder ROM which started several years ago but on 06/30/23 she had a pacemaker put in which really caused her shoulder to freeze up on her. Pt. Reports she is unable to perform daily tasks with her left shoulder due to pain and decreased ROM. Difficulty getting dressed, style hair and household activities. No injection. X-ray and MRI results in chart. Precautions: PACEMAKER 2023 Subjective: pt. Reports shoulder is feeling 50% better. Able to reach overhead with less pain. Pt. Has been unable to participate in PT treatment due to busy schedule. Pt. Has been compliant with HEP. Pain: 3-09/19 Objective: PT Evaluation (02/22/24) Left shoulder AROM: 90 deg flexion and abduction, IR behind back: buttock, ER left ear Left shoulder PROM: 140 deg flexion and abduction, IR 45 deg, ER 50 deg Joint: moderate hypomobility in left shoulder Strength: 3-/5 in all planes Palpation: TTP lateral deltoid area Treatment: PT evaluation (20 minutes) Education: HEP education with demonstration, Educated on Eval Findings and POC Manual Therapy: (23 minutes) Passive ROM, Joint mobilization, Soft Tissue Mobilization, Myofascial Release, Muscle Energy Technique, Neural Mobilization, Myofascial Cupping, Dry Needling, IASTM, and Scar mobilization Therapeutic Exercise: (17 minutes) exercises in grid; Strength, Endurance, Flexibility, ROM, HEP, Neural Mobilization, Power, and Core Stability Therapeutic Activity: Exercises to improve dynamic activities, functional tasks, functional mobility to return to prior activity level Neuromuscular re-education: Balance Training, Muscle Facilitation, Dynamic Stability, Core Stabilization, and Blood Flow Restriction Training (BFRT) Modalities: DO NOT RECOMMEND; pacemaker Assessment: Pt. Has participated in 2 PT session with start of POC on 02/21 for left frozen shoulder. Pt. Will benefit from skilled PT services. Pt. Demonstrates 140 degrees of Passive flexion and abduction today. Improved tolerance with ther ex. Added light band exercises today and pt. Tolerated well. Outcome Measure: Short Term Goal: To be met in 2 weeks Goal 1: Pt to be instructed in home exercise program. Production Trainer Goals: To be met in 10 weeks Goal 1: Pt to report independence and compliance with home program. Goal 2: Pt. Will report of 2/10 or less left shoulder pain while reaching/lifting objects overhead to help improve her quality of life. Goal 3: Pt. Will demonstrate normal left shoulder muscle flexibility to help her achieve full functional left shoulder ROM to perform daily tasks. Goal 4: Pt. Will demonstrate 160 degrees or greater left shoulder AROM in flexion and abduction to help her achieve full functional mobility to perform daily tasks. Goal 5: Pt. Will demonstrate 4+/5 or greater left shoulder strength to allow her to lift/carry objects to help improve her quality of life. Goal 6: Pt. Will score 50 or greater on UEFS to help improve her quality of life. Pt will benefit from skilled PT for 1-3x/week from 02/22/24 to 05/02/24 to address the above impairments. I hereby deem this POC medically necessary. Please sign below. Date: documented in this encounter [facility] 03-02-2024 Telephone encounter Note Patient Assistance form for Omid Nordisk completed by both provider and patient, faxed with proof of income and insurance cards. Confirmation received. [facility] 03-02-2024 Miscellaneous Notes Patient Assistance form for Omid Nordisk completed by both provider and patient, faxed with proof of income and insurance cards. Confirmation received. documented in this encounter [facility] 03-01-2024 History of Present illness Narrative VIRTUAL VISIT PROGRESS NOTE This is a virtual visit using [employer] Video Visit. It required patient-provider interaction for the medical decision making as documented below. SERVICE DATE & TIME: March 01, 2024 10:29 AM Reason for Visit: CKD HPI: Ms. Elias is a 78 yo F PMHx of T2DM, HTN, CAD, left JOSE MANUEL, CHF (EF 21%), ICD placement June 2023, PVD s/p right axillobifemoral bypass 12/2019, severe abdominal aortic stenosis at level of renal arteries, presenting for CKD followup. Family Hx of kidney disease: None Hx of Smoking: Former Diet:Ordering out 3 times week. BF: Kevin, yogurt No TV dinners, soup, prepared foods Caffeine: Coffee 1/week Alcohol: None Activity: Walking. Rec center Home BPs: Yes - CKD: Baseline Cr 1.4 new in 2023, DAV June 2023. Cr up to 1.8 now resolved. Admitted Feb 2024 - newly decreased EF 15%. [facility] Feb 2023 with TRACY. Jardiance (started June 2023) Ozempic (started August 2022) Monitoring BP at home. SBPs 110s Monitoring weight at home 153lbs. - Feb 2024: SBPs 120s. Aldactone started a month ago for HF Jardiance, lasix 20mg, Toprol 50mg/25mg, Valsartan 20mg Spironolactone 12.5mg Ozempic PAST MEDICAL HISTORY: PAST MEDICAL HISTORY [...] that she does not use drugs. MEDICATIONS: semaglutide (OZEMPIC) 2 mg/dose (8 mg/3 mL) pen injector Inject 2 mg subcutaneously one time a week. furosemide (LASIX) 20 mg tablet Take 1 tablet by mouth once daily. clopidogrel (PLAVIX) 75 mg tablet Take 1 tablet by mouth every 24 hours. spironolactone (ALDACTONE) 25 mg tablet Take 0.5 tablets by mouth once daily. omeprazole (PRILOSEC) 40 mg capsule Take 40 mg by mouth two times a day. Pt confirmed she is taking this medication magnesium oxide (MAG-OX) 400 mg (241.3 mg magnesium) tablet TAKE 1 TABLET BY MOUTH TWICE DAILY. TAKE SEPERATELY FROM DOXYCYCLINE metoprolol succinate ER (TOPROL XL) 25 mg 24 hr tablet Take 1 tablet by mouth as directed. 50 mg AM and 25 mg PM empagliflozin (JARDIANCE) 10 mg tablet Take 1 tablet by mouth daily with breakfast. diazePAM (VALIUM) 2 mg tablet valsartan (DIOVAN) 40 mg tablet Take 0.5 tablets by mouth once daily. rosuvastatin (CRESTOR) 40 mg tablet Take 1 tablet by mouth daily at bedtime. blood sugar diagnostic (BLOOD GLUCOSE TEST) test strip Use as instructed to monitor glucose. One touch ultra verio test strips. Blood-Glucose Sensor (FREESTYLE LEEANN 3 SENSOR) mauricio Use new sensor every 14 days to monitor blood glucose. aspirin, enteric coated (ASPIRIN, ENTERIC COATED) 81 mg EC tablet Take 81 mg by mouth once daily. Insulin [place], Disposable, (BD ULTRA-FINE RUBIA PEN NEEDLE) 32 gauge x 5/32 ndle BD Ultra-Fine Rubia Pen Needle 32 gauge x 5/32 allopurinol (ZYLOPRIM) 100 mg tablet Take 100 mg by mouth once daily. fluticasone (FLONASE) 50 mcg/actuation nasal spray fluticasone propionate 50 mcg/actuation nasal spray,suspension ALLERGIES: ALLERGIES Allergen Reactions Penicillins Anaphylaxis, Hives Iodinated Contrast * Other: See Comments Throat itching to some Xray dye >20-30 years ago REVIEW OF SYSTEMS: PHYSICAL EXAMINATION: VIDEO EXAM: (if completed, performed via video enabled technology) GENERAL: alert and appropriate, in no distress, well-hydrated, well nourished, happy, smiling, interactive, and Elderly DATA: CBC: Lab Results Component Value Date WBC 7.79 06/30/2023 HB 12.3 06/30/2023 HCT 39.4 06/30/2023 PLT 199 06/30/2023 BMP: Lab Results Component Value Date NA 139 01/25/2024 K 4.6 01/25/2024 CHLOR 102 01/25/2024 GLUC 123 (H) 01/25/2024 CA 9.7 01/25/2024 RENAL FUNCTION Lab Results Component Value Date BUN 32 (H) 01/25/2024 BUN 21 01/03/2024 BUN 36 (H) 09/22/2023 CREAT 1.36 (H) 01/25/2024 CREAT 1.24 (H) 01/03/2024 CREAT 1.39 (H) 09/22/2023 EGFRAA >60 02/21/2021 EGFRAA >60 08/14/2020 EGFRAA >60 04/02/2020 EGFROTH 40 (L) 01/25/2024 EGFROTH 45 (L) 01/03/2024 EGFROTH 39 (L) 09/22/2023 ACID/BASE Lab Results Component Value Date CO2 25 01/25/2024 ALB 4.2 01/03/2024 ANION 12 01/25/2024 BONE/MINERAL METABOLISM Lab Results Component Value Date CA 9.7 01/25/2024 P 3.2 01/04/2020 IRON STUDIES No results found for: FE , TIBC , TRANSFERSAT , DEVIN DIABETES Lab Results Component Value Date HBA1C 5.6 02/28/2024 LIPIDS: Lab Results Component Value Date CHOL 103 12/15/2022 HDL 41 12/15/2022 LDL 33 12/15/2022 TG 145 12/15/2022 LDLHDL 0.80 12/15/2022 URINE: Urine POC Lab Results Component Value Date UGLUCPOC 500 (A) 10/11/2023 UBILIPOC Negative 10/11/2023 UKETONPOC Negative 10/11/2023 USGPOC 1.020 10/11/2023 UHBPOC Small (A) 10/11/2023 UPHPOC 6.0 10/11/2023 UPROPOC 100 (A) 10/11/2023 UUROPOC 0.2 10/11/2023 UNITPOC Negative 10/11/2023 UWBCPOC Negative 10/11/2023 UCOLPOC Yellow 10/11/2023 UCLARPOC Clear 10/11/2023 Lab Results Component Value Date PCRAT 0.78 (H) 10/11/2023 UALBCR 90 (H) 07/27/2023 CTA: 2019 There [...] left JOSE MANUEL, ICD placement June 2023, pulm HTN, PVD s/p right axillobifemoral bypass 12/2019, severe abdominal aortic stenosis at level of renal arteries, presenting for CKD evaluation. CKD Stage IIIB: Proteinuric PCR 0.8. Baseline Cr 1.4. Discussed CKD in setting of CRS physiology. Caution with IV contrast. Discuss with Nephrology Left JOSE MANUEL: No intervention. BP controlled. HTN/Volume: BP controlled. Reviewed maintaining low salt diet. Reviewed increasing activity level as able. Chronic systolic HF: EF 21%. Compensated currently. Started on aldactone for GDMT. Cardiology Dr Strange notes reviewed. Vitamin D Def: Will check 25-Vitamin D, PTH, Ca, Phos. Anemia: Hgb at goal for CKD. Continue to monitor CBC and Fe studies as needed. Cholesterol: Goal LDL < 100 in CKD patients. PLAN: Renal function stable. Discussed CKD staging, prognosis Monitor weight, alert if weight >160lbs Follow up Spring I spent a total of 30 minutes on the date of the service which included preparing to see the patient, completing clinical documentation, obtaining and/or reviewing separately obtained history, counseling and educating the patient/family/caregiver, ordering medications, tests, or procedures, and independently interpreting results (not separately reported) I have communicated my name and active licensure. The patient's identity and physical location were verified at the time of this visit. Either the patient or their legal bilingual sales representative has been informed of the risks and benefits of -- and alternatives to -- treatment through a remote evaluation and consents to proceed with the evaluation remotely. Concha Paris MD documented in this encounter [facility] 03-01-2024 Note HNO ID: [id number] Author: CONCHA PARIS MD Service: ? Author Type: Physician Type: Progress Notes Filed: 03/01/2024 11:43 Note Text: VIRTUAL VISIT PROGRESS NOTE This is a virtual visit using [employer] Video Visit. It required patient-provider interaction for the medical decision making as documented below. SERVICE DATE AND TIME: March 01, 2024 10:29 AM Reason for Visit: CKD HPI: Ms. Elias is a 78 yo F PMHx of T2DM, HTN, CAD, left JOSE MANUEL, CHF (EF 21%), ICD placement June 2023, PVD s/p right axillobifemoral bypass 12/2019, severe abdominal aortic stenosis at level of renal arteries, presenting for CKD followup. Family Hx of kidney disease: None Hx of Smoking: Former Diet:Ordering out 3 times week. BF: Kevin, yogurt No TV dinners, soup, prepared foods Caffeine: Coffee 1/week Alcohol: None Activity: Walking. Rec center Home BPs: Yes - CKD: Baseline Cr 1.4 new in 2023, DAV June 2023. Cr up to 1.8 now resolved. Admitted Feb 2024 - newly decreased EF 15%. [facility] Feb 2023 with TRACY. Jardiance (started June 2023) Ozempic (started August 2022) Monitoring BP at home. SBPs 110s Monitoring weight at home 153lbs. - Feb 2024: SBPs 120s. Aldactone started a month ago for HF Jardiance, lasix 20mg, Toprol 50mg/25mg, Valsartan 20mg Spironolactone 12.5mg Ozempic PAST MEDICAL HISTORY: PAST MEDICAL HISTORY [...] that she does not use drugs. MEDICATIONS: semaglutide (OZEMPIC) 2 mg/dose (8 mg/3 mL) pen injector Inject 2 mg subcutaneously one time a week. furosemide (LASIX) 20 mg tablet Take 1 tablet by mouth once daily. clopidogrel (PLAVIX) 75 mg tablet Take 1 tablet by mouth every 24 hours. spironolactone (ALDACTONE) 25 mg tablet Take 0.5 tablets by mouth once daily. omeprazole (PRILOSEC) 40 mg capsule Take 40 mg by mouth two times a day. Pt confirmed she is taking this medication magnesium oxide (MAG-OX) 400 mg (241.3 mg magnesium) tablet TAKE 1 TABLET BY MOUTH TWICE DAILY. TAKE SEPERATELY FROM DOXYCYCLINE metoprolol succinate ER (TOPROL XL) 25 mg 24 hr tablet Take 1 tablet by mouth as directed. 50 mg AM and 25 mg PM empagliflozin (JARDIANCE) 10 mg tablet Take 1 tablet by mouth daily with breakfast. diazePAM (VALIUM) 2 mg tablet valsartan (DIOVAN) 40 mg tablet Take 0.5 tablets by mouth once daily. rosuvastatin (CRESTOR) 40 mg tablet Take 1 tablet by mouth daily at bedtime. blood sugar diagnostic (BLOOD GLUCOSE TEST) test strip Use as instructed to monitor glucose. One touch ultra verio test strips. Blood-Glucose Sensor (FREESTYLE LEEANN 3 SENSOR) mauricio Use new sensor every 14 days to monitor blood glucose. aspirin, enteric coated (ASPIRIN, ENTERIC COATED) 81 mg EC tablet Take 81 mg by mouth once daily. Insulin [place], Disposable, (BD ULTRA-FINE RUBIA PEN NEEDLE) 32 gauge x 5/32 ndle BD Ultra-Fine Rubia Pen Needle 32 gauge x 5/32 allopurinol (ZYLOPRIM) 100 mg tablet Take 100 mg by mouth once daily. fluticasone (FLONASE) 50 mcg/actuation nasal spray fluticasone propionate 50 mcg/actuation nasal spray,suspension ALLERGIES: ALLERGIES Allergen Reactions Penicillins Anaphylaxis, Hives Iodinated Contrast * Other: See Comments Throat itching to some Xray dye >20-30 years ago REVIEW OF SYSTEMS: PHYSICAL EXAMINATION: VIDEO EXAM: (if completed, performed via video enabled technology) GENERAL: alert and appropriate, in no distress, well-hydrated, well nourished, happy, smiling, interactive, and Elderly DATA: CBC: Lab Results Component Value Date WBC 7.79 06/30/2023 HB 12.3 06/30/2023 HCT 39.4 06/30/2023 PLT 199 06/30/2023 BMP: Lab Results Component Value Date NA 139 01/25/2024 K 4.6 01/25/2024 CHLOR 102 01/25/2024 GLUC 123 (H) 01/25/2024 CA 9.7 01/25/2024 RENAL FUNCTION Lab Results Component Value Date BUN 32 (H) 01/25/2024 BUN 21 01/03/2024 BUN 36 (H) 09/22/2023 CREAT 1.36 (H) 01/25/2024 CREAT 1.24 (H) 01/03/2024 CREAT 1.39 (H) 09/22/2023 EGFRAA >60 02/21/2021 EGFRAA >60 08/14/2020 EGFRAA >60 04/02/2020 EGFROTH 40 (L) 01/25/2024 EGFROTH 45 (L) 01/03/2024 EGFROTH 39 (L) 09/22/2023 ACID/BASE Lab Results Component Value Date CO2 25 01/25/2024 ALB 4.2 01/03/2024 ANION 12 01/25/2024 BONE/MINERAL (more content not included)... [facility] 02-28-2024 History of Present illness Narrative Endocrinology Follow-up History of Present Illness Arleth Elias is a 78 year old female presents today for follow up of DM Type 2. PMH significant HTN, systolic CHF and cardiomyopathy. Metformin was discontinued in July 2022 due to severe diarrhea. Last Endocrinology visit was with me on 06/02/23. Ozempic was continued and Patient receives Ozempic through patient assistance program. She continues to tolerate Ozempic well and denies side effects. She has been able to wean off of Levemir completely. Last HbA1c 5.4% was 06/02/23. POC HbA1c in office today is 5.6%. Date of Diagnosis: 2018 Last HbA1c: Hemoglobin A1C (%) Date Value 06/10/2022 6.9 08/14/2020 7.3 10/18/2019 7.5 02/01/2019 6.2 Hemoglobin A1C (POCT) (%) Date Value 06/02/2023 5.4 01/27/2023 6.4 11/04/2022 7.5 Complications Microvascular: denies Macrovascular: CAD Health Maintenance Topics Topic Date Due Dilated Retinal Exam 07/14/2023 Diabetic Foot Exam 11/05/2023 Physical Activity: Regular Diet: CHO Controlled Diet SMBG Summary of Personal CGM Findings: Forgot to bring Napartner reader to today's appt Monitors Glucoses 3-4 times daily 90-130 Current DM Related Medications: Current Medications 02/28/2024 DIABETES THERAPIES Medication Dosage Pharm Subclass empagliflozin (JARDIANCE) 10 mg tablet Take 1 tablet by mouth daily with breakfast. Antihyperglycemic - Sodium Glucose Cotransporter-2 (SGLT2) Inhibitors insulin detemir U-100 (LEVEMIR) 100 unit/mL (3 mL) injection pen Inject 20 Units subcutaneously daily at bedtime. Insulin Analogs - Long Acting semaglutide (OZEMPIC) 2 mg/dose (8 mg/3 mL) pen injector Inject 2 mg subcutaneously one time a week. Antihyperglycemic - Glucagon-Like Peptide-1 (GLP-1) Receptor Agonists CARDIOVASCULAR Medication Dosage Pharm Subclass metoprolol succinate ER (TOPROL XL) 25 mg 24 hr tablet Take 1 tablet by mouth as directed. 50 mg AM and 25 mg PM Beta Blockers Cardiac Selective rosuvastatin (CRESTOR) 40 mg tablet Take 1 tablet by mouth daily at bedtime. Antihyperlipidemic - HMG CoA Reductase Inhibitors (statins) valsartan (DIOVAN) 40 mg tablet Take 0.5 tablets by mouth once daily. Angiotensin II Receptor Blockers (ARBs) DIURETICS Medication Dosage Pharm Subclass furosemide (LASIX) 20 mg tablet Take 1 tablet by mouth once daily. Diuretic - Loop spironolactone (ALDACTONE) 25 mg tablet Take 0.5 tablets by mouth once daily. Diuretic - Aldosterone Receptor Antagonist, Non-selective ANTI-PLATELET THERAPIES Medication Dosage Pharm Subclass aspirin, enteric coated (ASPIRIN, ENTERIC COATED) 81 mg EC tablet Take 81 mg by mouth once daily. Salicylate Analgesics clopidogrel (PLAVIX) 75 mg tablet Take 1 tablet by mouth every 24 hours. Platelet Aggregation Inhibitors - Thienopyridine Agents ASPIRIN Medication Dosage Pharm Subclass aspirin, enteric coated (ASPIRIN, ENTERIC COATED) 81 mg EC tablet Take 81 mg by mouth once daily. Salicylate Analgesics OTHER Medication Dosage Pharm Subclass allopurinol (ZYLOPRIM) 100 mg tablet Take 100 mg by mouth once daily. Hyperuricemia Therapy - Xanthine Oxidase Inhibitors blood sugar diagnostic (BLOOD GLUCOSE TEST) test strip Use as instructed to monitor glucose. One touch ultra verio test strips. Medical Supplies and DME - Blood Glucose Tests Blood-Glucose Sensor (FREESTYLE LEEANN 3 SENSOR) mauricio Use new sensor every 14 days to monitor blood glucose. Medical Supplies and DME - Glucose Monitoring Test Supplies diazePAM (VALIUM) 2 mg tablet Antianxiety Agent - Benzodiazepines fluticasone (FLONASE) 50 mcg/actuation nasal spray fluticasone propionate 50 mcg/actuation nasal spray,suspension Nasal Corticosteroids Insulin [place], Disposable, (BD ULTRA-FINE RUBIA PEN NEEDLE) 32 gauge x 5/32 ndle BD Ultra-Fine Rubia Pen Needle 32 gauge x 5/32 Medical Supplies and DME - Insulin [place]-Syringes and Admin Supplies magnesium oxide (MAG-OX) 400 mg (241.3 mg magnesium) tablet TAKE 1 TABLET BY MOUTH TWICE DAILY. TAKE SEPERATELY FROM DOXYCYCLINE Antacid - Magnesium omeprazole (PRILOSEC) 40 mg capsule Take 40 mg by mouth two times a day. Pt confirmed she is taking this medication Gastric Acid Secretion Special Makeup Fx Artist Instructor - Proton Pump Inhibitors (PPIs) Past History, Medications, Allergies PAST MEDICAL HISTORY [...] year around age 36 Vaping Use Vaping status: Never Used Substance Use Topics Alcohol use: Not Currently Drug use: Never Review of Systems Answers submitted by the patient for this visit: Core Review of Systems (Submitted on 02/26/2024) Fever : No Night sweats: No Recent unintentional weight change: No Nasal Congestion: No Hearing Loss: No Vision Disturbance: No A cough: No Difficulty Breathing?: No Chest pain: No Irregular heartbeat: No Leg Swelling: No Nausea: No Diarrhea: No Black tarry stools: No Difficulty Urinating?: No Awaken at Night More Than Once to Urinate?: No Joint pain or stiffness: No Muscle aches: No Leg or Foot Discomfort at Night?: No A rash: No Dizziness: No Headaches: No Memory Loss: No Seizures: No Physical examination BP 125/65 (BP Site: Left Arm, BP Position: Sitting, BP Cuff Size: Regular Adult) Pulse 78 Wt 70.1 kg (154 lb 8.7 oz) BMI 24.94 kg/m General appearance: Well appearing, alert, in no acute distress, well-hydrated, well nourished. Skin: Skin color, texture, turgor normal, no suspicious rashes or lesions HEART: normal rate LUNGS: unlabored, normal respiratory rate EXTREMITIES No deformities, No skin discoloration and No edema NEURO: Speech normal, mental status intact, no tremor noted. Previous Laboratory Results LABS Glucose (mg/dL) Date Value 01/25/2024 123 01/03/2024 135 09/22/2023 108 02/21/2021 202 08/14/2020 101 04/02/2020 188 Potassium (mmol/L) Date Value 01/25/2024 4.6 02/21/2021 4.0 Sodium (mmol/L) Date Value 01/25/2024 139 01/03/2024 138 09/22/2023 141 02/21/2021 141 08/14/2020 140 04/02/2020 137 Chloride (mmol/L) Date Value 01/25/2024 102 01/03/2024 103 09/22/2023 105 02/21/2021 103 08/14/2020 101 04/02/2020 100 CO2 (mmol/L) Date Value 01/25/2024 25 01/03/2024 26 09/22/2023 27 02/21/2021 26 08/14/2020 28 04/02/2020 29 Creatinine (mg/dL) Date Value 01/25/2024 1.36 01/03/2024 1.24 09/22/2023 1.39 02/21/2021 0.74 08/14/2020 0.73 04/02/2020 0.74 BUN (mg/dL) Date Value 01/25/2024 32 01/03/2024 21 09/22/2023 36 02/21/2021 20 08/14/2020 17 04/02/2020 27 Anion Gap (mmol/L) Date Value 01/25/2024 12 01/03/2024 9 09/22/2023 9 02/21/2021 12 08/14/2020 11 04/02/2020 8 Calcium (mg/dL) Date Value 02/21/2021 9.2 08/14/2020 9.5 04/02/2020 9.6 Calcium, Total (mg/dL) Date Value 01/25/2024 9.7 01/03/2024 9.4 09/22/2023 10.0 eGFR- (no units) Date Value 02/21/2021 >60 08/14/2020 >60 04/02/2020 >60 eGFR-All Other Races (.) Date Value 02/21/2021 >60 08/14/2020 >60 04/02/2020 >60 Estimated Glomerular Filtration Rate (mL/min/1.73m ) Date Value 01/25/2024 40 01/03/2024 45 09/22/2023 39 ALT (U/L) Date Value 01/03/2024 10 02/17/2023 10 02/16/2023 11 08/14/2020 18 01/03/2020 40 01/03/2020 Account Credited TSH Date Value Ref Range Status 06/09/2023 3.830 0.270 - 4.200 mIU/L Final 02/16/2023 4.300 (H) 0.270 - 4.200 mIU/L Final 06/10/2022 3.640 0.270 - 4.200 mIU/L Final Free T4 Date Value Ref Range Status 06/09/2023 1.2 0.9 - 1.7 ng/dL Final Impression/Recommendations IMPRESSION Arleth Elias is a 78 year old here for evaluation of DM Type 2 with cardiovascular complications. POC HbA1c was 5.6% in office today. Patient has not experienced [...] Continue Ozempic 2 mg once weekly Continue Jardiance 10 mg once daily Follow up in 6 months Obtain labs Glucose targets as: Fasting 90-130, before meals [...] with diabetes. Albumin/Creat Ratio (mg/g) Date Value 07/27/2023 90 (H) 10/18/2019 Not calculated Protein, Urine (no units) Date Value 06/10/2022 Negative 10/18/2019 Negative Creatinine, Ur Random (UCRR) (mg/dL) Date Value 10/11/2023 59.9 10/18/2019 51.1 -- This patient does not have microalbuminuria and is not on RAMEZ-I or ARB therapy. 5. Ophthalmology: Annual dilated eye exams are recommended for patients with type 1 and type 2 diabetes. -- This patient is up to date with their annual eye exam and has no history of retinopathy Patient to continue to follow up with his PCP and with other consultants regarding his other medical problems. Any part of this document that has been added/copied & pasted from other documents has been reviewed for accuracy and updated as appropriate at the time of the patient encounter Mikel Barahona APRN.CNP (Signed electronically to expedite mailing) documented in this encounter [facility] 02-28-2024 Note HNO ID: [id number] Author: MIKEL BARAHONA APRN.CNP Service: ? Author Type: Nurse Practitioner Type: Progress Notes Filed: 02/28/2024 13:15 Note Text: Endocrinology Follow-up History of Present Illness Arleth Elias is a 78 year old female presents today for follow up of DM Type 2. PMH significant HTN, systolic CHF and cardiomyopathy. Metformin was discontinued in July 2022 due to severe diarrhea. Last Endocrinology visit was with me on 06/02/23. Ozempic was continued and Patient receives Ozempic through patient assistance program. She continues to tolerate Ozempic well and denies side effects. She has been able to wean off of Levemir completely. Last HbA1c 5.4% was 06/02/23. POC HbA1c in office today is 5.6%. Date of Diagnosis: 2018 Last HbA1c: Hemoglobin A1C (%) Date Value 06/10/2022 6.9 08/14/2020 7.3 10/18/2019 7.5 02/01/2019 6.2 Hemoglobin A1C (POCT) (%) Date Value 06/02/2023 5.4 01/27/2023 6.4 11/04/2022 7.5 Complications Microvascular: denies Macrovascular: CAD Health Maintenance Topics Topic Date Due Dilated Retinal Exam 07/14/2023 Diabetic Foot Exam 11/05/2023 Physical Activity: Regular Diet: CHO Controlled Diet SMBG Summary of Personal CGM Findings: Forgot to bring Napartner reader to today's appt Monitors Glucoses 3-4 times daily 90-130 Current DM Related Medications: Current Medications 02/28/2024 DIABETES THERAPIES Medication Dosage Pharm Subclass empagliflozin (JARDIANCE) 10 mg tablet Take 1 tablet by mouth daily with breakfast. Antihyperglycemic - Sodium Glucose Cotransporter-2 (SGLT2) Inhibitors insulin detemir U-100 (LEVEMIR) 100 unit/mL (3 mL) injection pen Inject 20 Units subcutaneously daily at bedtime. Insulin Analogs - Long Acting semaglutide (OZEMPIC) 2 mg/dose (8 mg/3 mL) pen injector Inject 2 mg subcutaneously one time a week. Antihyperglycemic - Glucagon-Like Peptide-1 (GLP-1) Receptor Agonists CARDIOVASCULAR Medication Dosage Pharm Subclass metoprolol succinate ER (TOPROL XL) 25 mg 24 hr tablet Take 1 tablet by mouth as directed. 50 mg AM and 25 mg PM Beta Blockers Cardiac Selective rosuvastatin (CRESTOR) 40 mg tablet Take 1 tablet by mouth daily at bedtime. Antihyperlipidemic - HMG CoA Reductase Inhibitors (statins) valsartan (DIOVAN) 40 mg tablet Take 0.5 tablets by mouth once daily. Angiotensin II Receptor Blockers (ARBs) DIURETICS Medication Dosage Pharm Subclass furosemide (LASIX) 20 mg tablet Take 1 tablet by mouth once daily. Diuretic - Loop spironolactone (ALDACTONE) 25 mg tablet Take 0.5 tablets by mouth once daily. Diuretic - Aldosterone Receptor Antagonist, Non-selective ANTI-PLATELET THERAPIES Medication Dosage Pharm Subclass aspirin, enteric coated (ASPIRIN, ENTERIC COATED) 81 mg EC tablet Take 81 mg by mouth once daily. Salicylate Analgesics clopidogrel (PLAVIX) 75 mg tablet Take 1 tablet by mouth every 24 hours. Platelet Aggregation Inhibitors - Thienopyridine Agents ASPIRIN Medication Dosage Pharm Subclass aspirin, enteric coated (ASPIRIN, ENTERIC COATED) 81 mg EC tablet Take 81 mg by mouth once daily. Salicylate Analgesics OTHER Medication Dosage Pharm Subclass allopurinol (ZYLOPRIM) 100 mg tablet Take 100 mg by mouth once daily. Hyperuricemia Therapy - Xanthine Oxidase Inhibitors blood sugar diagnostic (BLOOD GLUCOSE TEST) test strip Use as instructed to monitor glucose. One touch ultra verio test strips. Medical Supplies and DME - Blood Glucose Tests Blood-Glucose Sensor (FREESTYLE LEEANN 3 SENSOR) mauricio Use new sensor every 14 days to monitor blood glucose. Medical Supplies and DME - Glucose Monitoring Test Supplies diazePAM (VALIUM) 2 mg tablet Antianxiety Agent - Benzodiazepines fluticasone (FLONASE) 50 mcg/actuation nasal spray fluticasone propionate 50 mcg/actuation nasal spray,suspension Nasal Corticosteroids Insulin [place], Disposable, (BD ULTRA-FINE RUBIA PEN NEEDLE) 32 gauge x 5/32 ndle BD Ultra-Fine Rubia Pen Needle 32 gauge x 5/32 Medical Supplies and DME - Insulin [place]-Syringes and Admin Supplies magnesium oxide (MAG-OX) 400 mg (241.3 mg magnesium) tablet TAKE 1 TABLET BY MOUTH TWICE DAILY. TAKE SEPERATELY FROM DOXYCYCLINE Antacid - Magnesium omeprazole (PRILOSEC) 40 mg capsule Take 40 mg by mouth two times a day. Pt confirmed she is taking this medication Gastric Acid Secretion Special Makeup Fx Artist Instructor - Proton Pump Inhibitors (PPIs) Past History, Medications, Allergies PAST MEDICAL HISTORY Diagnosis Date Cardiomyopathy (HCC) Claudication (HCC) DM (diabetes mellitus) (HCC) HTN (hypertension) Incontinence NSVT (nonsustained ventricular tachycardia) (HCC) Sciatica Systolic CHF (HCC) PAST SURGICAL HISTORY Procedure Laterality Date CHOLECYSTECTOMY REMV CATARACT EXTRACAP,INSERT LENS Bilateral TOTAL ABDOMINAL HYSTERECT W/WO RMVL TUBE OVARY ALLERGIES Allergen Reactions Penicillins Anaphylaxis, Hives Iodinated Contrast * Other: S (more content not included)... [facility] 02-22-2024 History of Present illness Narrative Physical Therapy Evaluation Visit Patient Name: Arleth Elias Today's Date: 02/22/2024 Encounter Diagnoses Name Primary? Acute pain of left shoulder Adhesive capsulitis of left shoulder Visit number: 1 Timed Code Treatment Minutes: 60 minutes Total Treatment Time: 60 minutes Time In: Time Out: History: Pt. Presents to PT with c/c of left shoulder pain and decrease shoulder ROM which started several years ago but on 06/30/23 she had a pacemaker put in which really caused her shoulder to freeze up on her. Pt. Reports she is unable to perform daily tasks with her left shoulder due to pain and decreased ROM. Difficulty getting dressed, style hair and household activities. No injection. X-ray and MRI results in chart. Precautions: PACEMAKER 2023 Subjective Pain: 6/10 rest; movement /10 Objective: PT Evaluation (02/22/24) Left shoulder AROM: 90 deg flexion and abduction, IR behind back: buttock, ER left ear Left shoulder PROM: 140 deg flexion and abduction, IR 45 deg, ER 50 deg Joint: moderate hypomobility in left shoulder Strength: 3-/5 in all planes Palpation: TTP lateral deltoid area Treatment: PT evaluation (20 minutes) Education: HEP education with demonstration, Educated on Eval Findings and POC Manual Therapy: (16 minutes) Passive ROM, Joint mobilization, Soft Tissue Mobilization, Myofascial Release, Muscle Energy Technique, Neural Mobilization, Myofascial Cupping, Dry Needling, IASTM, and Scar mobilization Therapeutic Exercise: (15 minutes) exercises in grid; Strength, Endurance, Flexibility, ROM, HEP, Neural Mobilization, Power, and Core Stability Therapeutic Activity: Exercises to improve dynamic activities, functional tasks, functional mobility to return to prior activity level Neuromuscular re-education: Balance Training, Muscle Facilitation, Dynamic Stability, Core Stabilization, and Blood Flow Restriction Training (BFRT) Modalities: DO NOT RECOMMEND; pacemaker Assessment: Pt. Has participated in 1 PT session with start of POC on 02/21 for left frozen shoulder. Pt. Will benefit from skilled PT services. Outcome Measure: Short Term Goal: To be met in 2 weeks Goal 1: Pt to be instructed in home exercise program. Senior Care Goals: To be met in 10 weeks Goal 1: Pt to report independence and compliance with home program. Goal 2: Pt. Will report of 2/10 or less left shoulder pain while reaching/lifting objects overhead to help improve her quality of life. Goal 3: Pt. Will demonstrate normal left shoulder muscle flexibility to help her achieve full functional left shoulder ROM to perform daily tasks. Goal 4: Pt. Will demonstrate 160 degrees or greater left shoulder AROM in flexion and abduction to help her achieve full functional mobility to perform daily tasks. Goal 5: Pt. Will demonstrate 4+/5 or greater left shoulder strength to allow her to lift/carry objects to help improve her quality of life. Goal 6: Pt. Will score 50 or greater on UEFS to help improve her quality of life. Pt will benefit from skilled PT for 1-3x/week from 02/22/24 to 05/02/24 to address the above impairments. I hereby deem this POC medically necessary. Please sign below. Date: Cosigned by BANDAR Soria at 02/22/2024 6:52 PM EST documented in this encounter [facility] 02-18-2024 Telephone encounter Note Patients last Endocrinology visit occurred None at [facility] Follow-up evaluation has been established Upcoming Endocrinology Appointments - Next 365 Days Visit Type Date Time Department EST NICOLE PATIENT 02/28/2024 12:50 PM ENDO [facility] ANIYA . Requested Prescriptions Pending Prescriptions Disp Refills semaglutide (OZEMPIC) 2 mg/dose (8 mg/3 mL) pen injector 3 mL 0 Sig: Inject 2 mg subcutaneously one time a week. If patient is due for an appointment please route to provider for refill consideration and also to the endo scheduling pool. [facility] 02-18-2024 Miscellaneous Notes Patients last Endocrinology visit occurred None at [facility] Follow-up evaluation has been established Upcoming Endocrinology Appointments - Next 365 Days Visit Type Date Time Department EST NICOLE PATIENT 02/28/2024 12:50 PM ENDO [facility] ANIYA . Requested Prescriptions Pending Prescriptions Disp Refills semaglutide (OZEMPIC) 2 mg/dose (8 mg/3 mL) pen injector 3 mL 0 Sig: Inject 2 mg subcutaneously one time a week. If patient is due for an appointment please route to provider for refill consideration and also to the endo scheduling pool. documented in this encounter [facility] 02-16-2024 History of Present illness Narrative Images from the original note were not included. NAME: Arleth Elias : 1945 HISTORY OF PRESENT ILLNESS: NEW PT Arleth Elias is an 78 y.o. @ female. 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 PAST MEDICAL HISTORY: Past Medical History: Diagnosis Date Abnormal kidney function Allergic rhinitis 06/07/2023 Aortic atherosclerosis (CMS/HCC) 06/07/2023 Arthralgia CAD (coronary artery disease) (CMS/HCC) 06/07/2023 Cervical pain (neck) Disc displacement, lumbar Diverticulitis Diverticulosis 06/07/2023 Dry eyes 06/07/2023 Edema of extremities 06/07/2023 Elevated blood uric acid level 04/08/2023 Environmental and seasonal allergies 06/07/2023 Epigastric pain Fatigue 06/07/2023 Generalized anxiety disorder with panic attacks ([facility]/HCC) 03/24/2023 Gout Heart failure with reduced ejection fraction ([facility]) Hypomagnesemia 06/07/2023 Lumbar back pain with radiculopathy affecting lower extremity 06/07/2023 Panic attacks ([facility]/HCC) 06/07/2023 Protruded lumbar disc L4/5 disc 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 Seborrheic keratoses Thyroid nodule ([facility]) Type 2 diabetes mellitus without complication, with long-term current use of insulin ([facility]) 04/06/2023 Urinary incontinence 06/07/2023 PAST SURGICAL HISTORY: Past Surgical History: Procedure Laterality Date APPENDECTOMY CHOLECYSTECTOMY FEMORAL BYPASS 01/02/2020 axillo-bifemoral bypass at [facility] OTHER SURGICAL HISTORY BTL TOTAL ABDOMINAL HYSTERECTOMY W/ BILATERAL SALPINGOOPHORECTOMY SOCIAL HISTORY: Social History Occupational History Not on file Tobacco Use Smoking status: Former Types: Cigarettes Smokeless tobacco: Not on file Tobacco comments: Last smoked: >10 years Substance and Sexual Activity Alcohol use: Yes Comment: 1-2 drinks monthly or less, caffeine 1-2 cups per day Drug use: Never Sexual activity: Not on file ALLERGIES: Allergies Allergen Reactions Barium-Containing Compounds Anaphylaxis IV DYE medicate prior to Iodinated Contrast Media Other Unknown Penicillins HOME MEDICATIONS: Current Outpatient Medications Medication Instructions allopurinol (ZYLOPRIM) 100 mg, Oral, Daily aspirin 81 mg, Oral, Daily clopidogrel (PLAVIX) 75 mg, Oral, Daily empagliflozin (Jardiance) 10 MG Oral fluticasone (Flonase) 50 MCG/ACT nasal spray 2 sprays, Each Nostril, Daily, Shake gently. Before first use, prime pump. After use, clean tip and replace cap. furosemide (LASIX) 20 mg, Oral, Daily magnesium oxide-pyridoxine (Beelith) 362-20 MG tablet 1 tablet, Oral, Daily, 400MG metoprolol succinate XL (TOPROL-XL) 50 mg, Oral, Daily, Do not crush or chew. rosuvastatin (CRESTOR) 40 mg, Oral, Daily Semaglutide,0.25 or 0.5MG/DOS, (Ozempic, 0.25 or 0.5 MG/DOSE,) 2 MG/3ML solution pen-injector Subcutaneous, Weekly valsartan (DIOVAN) 20 mg, Oral, Daily REVIEW OF SYSTEMS: Review of Systems Vitals: Body mass index is 24.21 kg/m . Tobacco Use: Medium Risk (02/16/2024) Patient History Smoking Tobacco Use: Former Smokeless Tobacco Use: Unknown Passive Exposure: Not on file Alcohol Use: Not At Risk (02/24/2023) Received from [facility] Frequency of Alcohol Consumption: Never Average Number of Drinks: Patient does not drink Frequency of Binge Drinking: Never PHYSICAL EXAM: Shoulder Musculoskeletal Exam Inspection Left Left shoulder inspection is normal. Ecchymosis: none Peripheral edema: none Atrophy: none Deformity comment: Pace maker / defibulator left anterior chest wall. Masses: none Skin tenting: none Palpation Left Crepitus: no crepitus Increased warmth: none Tenderness: present Anterior shoulder: mild Posterior shoulder: moderate Clavicle: none AC joint: mild Sternoclavicular joint: none Rotator cuff: mild Greater tuberosity: mild Trapezius: mild Superior pole of scapula: none Inferior pole of scapula: none Bicipital groove: mild Proximal biceps: mild Distal biceps: none Lateral arm: moderate Elbow: none Range of Motion Left Active ROM: abnormal and pain. Passive ROM: abnormal and pain. Active forward elevation: 90. Passive forward elevation: 120. Shoulder active abduction: 70. Passive abduction: 80. Active external rotation at side: 60. Passive external rotation at side: 80. Internal rotation: side. Range of motion additional comments: LIMITED ROM CONSISTENT WITH FROZEN SHOULDER Strength Left External rotation is affected by pain. Internal rotation is affected by pain. Abduction is affected by pain. Biceps: 5/5. Triceps: 5/5. Neurovascular Left Radial pulse: normal and 2+ Capillary refill: <3 sec Axillary nerve sensory distribution: normal Scapula Left Left shoulder scapula is normal. Position: normal Winging: none Special Tests Left Rotator Cuff Signs Neer's test: positive Olivares test: positive General Constitutional: appears stated age Labored breathing: no Neurological: alert and oriented x3 Skin: intact IMAGING: MR shoulder left wo IV contrast THIS EXAM WAS PERFORMED AT [facility] MR LEFT SHOULDER CLINICAL INFORMATION: Chronic shoulder pain.. COMPARISON: None. PROCEDURE: Axial, oblique coronal, and oblique sagittal long TR images of the shoulder were obtained. FINDINGS: ROTATOR CUFF AND ASSOCIATED STRUCTURES Image quality: Images degraded by artifact from the patient's pacemaker. Biceps Tendon: The biceps tendon is normally situated within the bicipital groove. No complete or partial biceps tendon tear is present. Rotator cuff: Supraspinatus: Thinning and heterogeneity distally with no focal tear. Infraspinatus: Mild thinning and bursal surface irregularity distally with no full-thickness tear. Subscapularis: No focal defect. Mild heterogeneity in the distal fibers. Teres minor: Grossly intact. Musculature: Utilizing mild muscular volume loss. No focal irregularity. Bursa: Fluid and thickening at the subacromial subdeltoid bursa superiorly. OSSEOUS STRUCTURES Acromioclavicular joint: Type III acromion process with hypertrophic changes. Encroachment upon the subacromial space. Bones: No Hill-Sachs, reverse Hill-Sachs, or bony Bankart lesions are seen. There are no fractures or regions of abnormal bone marrow signal intensity. GLENOHUMERAL JOINT Joint: Mild degenerative changes. Small joint effusion. Cartilage: Thinning and mild irregularity with no focal osteochondral lesion. Labrum: Limited evaluation with longitudinal irregularity suspected superiorly. Other support structures: No capsular or ligamentous abnormality is seen. IMPRESSION: 1. Limited study due to artifact. 2. Findings of rotator cuff tendinosis with thickening and no focal tear evident. 3. Acromioclavicular degenerative changes with subacromial impingement. Fluid in the subacromial subdeltoid bursa 4. Glenohumeral degenerative changes with suspected labral irregularity. Finalized by Oskar Ramirez MD on 02/04/2024 6:09 AM Procedures Orders Placed This Encounter Procedures Ambulatory referral to Physical Therapy Standing Status: Future Standing Expiration Date: 08/15/2024 Referral Priority: Routine Referral Type: Consultation Referral Reason: Consult and Treat Referred to Provider: Timmy Casarez PT Requested Specialty: Physical Therapy Number of Visits Requested: 1 ASSESSMENT: ICD-10-CM 1. Acute pain of left shoulder M25.512 Ambulatory referral to Orthopaedic Surgery Ambulatory referral to Physical Therapy 2. Adhesive capsulitis of left shoulder M75.02 Ambulatory referral to Orthopaedic Surgery Ambulatory referral to Physical Therapy PLAN: Recommend Physical therapy, consider SA injection,, pt had MRI and Xray reviewed at bedside, but clinical exam, limited motion/ chronicity of symptoms mostly concerning for adhesive capsulitis over Labral patholgy.. pt noting exacebration of limited motion left shoulder following pacemaker/ defibulator implant.... surgical and nonsurgical treatment options discussed. Questions answered in laymen terms at the bedside. The diagnosis, home exercise plan and any ongoing restrictions/ recommendations reviewed. If unable to be reached in office, I recommend evaluation at nearest Emergency Room if any symptoms worsened or new symptoms develop for requiring urgent evaluation. documented in this encounter [facility] 02-14-2024 Telephone encounter Note Arleth is calling Mikel Barahona APRN.CNP today to request if you have received her Ozempic in the office. She spoke to them this past and they said it was en route via [employer]. Please advise. Patient has been identified by name and birthdate. Duration of symptoms: N/A Person calling: self Call patient at: on [employer] [phone] (home) [phone] ([employer]) Was an appointment scheduled: No Closing statement: Results or non-symptom based questions: Thank you for calling [facility], your call will be returned within the next business day. Nichelle Means [facility] 02-14-2024 Miscellaneous Notes Arleth is calling Mikel Barahona APRN.CNP today to request if you have received her Ozempic in the office. She spoke to them this past and they said it was en route via [employer]. Please advise. Patient has been identified by name and birthdate. Duration of symptoms: N/A Person calling: self Call patient at: on cell [phone] (home) [phone] (cell) Was an appointment scheduled: No Closing statement: Results or non-symptom based questions: Thank you for calling [facility], your call will be returned within the next business day. Nichelle Rosales Pss documented in this encounter [facility] 02-07-2024 Telephone encounter Note I called pt for another issue, and pt also needs refill for clopidogrel (Plavix) 75 mg daily. Pend/send sent for refill. Pt confirmed understanding. No further questions. [facility] 02-07-2024 Miscellaneous Notes I called pt for another issue, and pt also needs refill for clopidogrel (Plavix) 75 mg daily. Pend/send sent for refill. Pt confirmed understanding. No further questions. documented in this encounter [facility] 02-03-2024 Telephone encounter Note Attempted to reach [facility] at number listed below. Left detailed message stating patient has not been seen in office since 06/02/23. [facility] 02-03-2024 Miscellaneous Notes Attempted to reach [facility] at number listed below. Left detailed message stating patient has not been seen in office since 06/02/23. [facility] is calling Mikel Barahona APRN.CNP today to request diabetic clinical notes & if collected-cgm downloads from 06/30/23-11/30/23 Please advise Phone-[phone] secure Patient has been identified by name and birthdate. Duration of symptoms: N/A Person calling: Call patient at: on cell [phone] (home) [phone] (cell) Was an appointment scheduled: No Closing statement: Results or non-symptom based questions: Thank you for calling [facility], your call will be returned within the next business day. Mally Rucker documented in this encounter [facility] 02-03-2024 Telephone encounter Note [facility] is calling Mikel Barahona APRN.CNP today to request diabetic clinical notes & if collected-cgm downloads from 06/30/23-11/30/23 Please advise Phone-[phone] ext [phone] secure vm Patient has been identified by name and birthdate. Duration of symptoms: N/A Person calling: Call patient at: on cell [phone] (home) [phone] (cell) Was an appointment scheduled: No Closing statement: Results or non-symptom based questions: Thank you for calling [facility], your call will be returned within the next business day. Mally Rucker [facility] 01-17-2024 Telephone encounter Note Patient phones requesting refills as follows: Requested Prescriptions Pending Prescriptions Disp Refills furosemide (LASIX) 40 mg tablet 90 tablet 1 Sig: Take 0.5 tablets by mouth once daily. Please review and advise. Immanuel Liu RN [facility] 01-17-2024 Miscellaneous Notes Patient phones requesting refills as follows: Requested Prescriptions Pending Prescriptions Disp Refills furosemide (LASIX) 40 mg tablet 90 tablet 1 Sig: Take 0.5 tablets by mouth once daily. Please review and advise. Immanuel Liu RN documented in this encounter [facility] 01-04-2024 Telephone encounter Note Please have pt contact her feed miller for her lasix, I would prefer with her heart failure diagnosis that they prescribe this LA [facility] 01-04-2024 Miscellaneous Notes Please have pt contact her feed miller for her lasix, I would prefer with her heart failure diagnosis that they prescribe this LA documented in this encounter [facility] 01-04-2024 Telephone encounter Note pt called asking if she can get a refill on her furosemide (Lasix) 20 MG tablet. angie needs a new prescripiton [facility] 01-04-2024 Miscellaneous Notes pt called asking if she can get a refill on her furosemide (Lasix) 20 MG tablet. angie needs a new prescripiton documented in this encounter [facility] 01-03-2024 Note HNO ID: [id number] Author: ROSSY ARROYO MD Service: ? Author Type: Physician Type: Progress Notes Filed: 01/03/2024 15:30 Note Text: [facility] [place] DEPARTMENT OF VASCULAR SURGERY OUTPATIENT VISIT DATE January 03, 2024 OUTPATIENT VISIT TYPE ESTABLISHED SERVICE DATE: 01/03/2024 SERVICE TIME: 3:13 PM PRIMARY CARE PHYSICIAN: Radha Little, GUALBERTO, INTERNET MANAGER HISTORY OF PRESENT ILLNESS: Ms. Elias is a 78 year old female who presents today for a vascular surgery follow-up visit for her PAD. She is s/p ax bifem bypass in 2019 for aortoiliac disease. No claudication. Walks one mile without trouble. Feels great since her PPM. On DAPT. PAST MEDICAL HISTORY Diagnosis Date Cardiomyopathy (HCC) [...] year around age 36 Vaping Use Vaping status: Never Used Substance Use Topics Alcohol use: Not Currently Drug use: Never MEDICATIONS: omeprazole (PRILOSEC) 40 mg capsule Take 40 mg by mouth two times a day. Pt confirmed she is taking this medication metoprolol succinate ER (TOPROL XL) 25 mg 24 hr tablet Take 1 tablet by mouth as directed. 50 mg AM and 25 mg PM empagliflozin (JARDIANCE) 10 mg tablet Take 1 tablet by mouth daily with breakfast. furosemide (LASIX) 40 mg tablet Take 0.5 tablets by mouth once daily. clopidogrel (PLAVIX) 75 mg tablet Take by mouth every 24 hours. valsartan (DIOVAN) 40 mg tablet Take 0.5 tablets by mouth once daily. allopurinol (ZYLOPRIM) 100 mg tablet Take 100 mg by mouth once daily. spironolactone (ALDACTONE) 25 mg tablet Take 0.5 tablets by mouth once daily. magnesium oxide (MAG-OX) 400 mg (241.3 mg magnesium) tablet TAKE 1 TABLET BY MOUTH TWICE DAILY. TAKE SEPERATELY FROM DOXYCYCLINE semaglutide (OZEMPIC) 2 mg/dose (8 mg/3 mL) pen injector Inject 2 mg subcutaneously one time a week. diazePAM (VALIUM) 2 mg tablet insulin detemir U-100 (LEVEMIR) 100 unit/mL (3 mL) injection pen Inject 20 Units subcutaneously daily at bedtime. rosuvastatin (CRESTOR) 40 mg tablet Take 1 tablet by mouth daily at bedtime. blood sugar diagnostic (BLOOD GLUCOSE TEST) test strip Use as instructed to monitor glucose. One touch ultra verio test strips. Blood-Glucose Sensor (FREESTYLE LEEANN 3 SENSOR) mauricio Use new sensor every 14 days to monitor blood glucose. aspirin, enteric coated (ASPIRIN, ENTERIC COATED) 81 mg EC tablet Take 81 mg by mouth once daily. (Patient not taking: Reported on 01/03/2024) Insulin [place], Disposable, (BD ULTRA-FINE RUBIA PEN NEEDLE) 32 gauge x 5/32 ndle BD Ultra-Fine Rubia Pen Needle 32 gauge x 5/32 fluticasone (FLONASE) 50 mcg/actuation nasal spray fluticasone propionate 50 mcg/actuation nasal spray,suspension ALLERGIES: ALLERGIES Allergen Reactions Penicillins Anaphylaxis, Hives Iodinated Contrast * Other: See Comments Throat itching to some Xray dye >20-30 years ago PHYSICAL EXAM: There were no vitals taken for this visit. Incisions all well healed. Palp fem and pedal pulses B. Palp radial pulses B. Diagnostic tests reviewed for today's visit: US LEG ARTERIAL PERIPH UNL VAS LAB Order: [id number] Status: Preliminary result Visible to patient: No (not released) Next appt: 02/28/2024 at 12:50 PM in ENDOCRINOLOGY (Mikel Barahona, [employer] SURFACE HEATER OPERATOR.INTERNET MANAGER) Dx: PAD (peripheral artery disease) (HCC) 0 Result Notes Narrative Non-Invasive Vascular Laboratory [facility] Lower Extremity Arterial Duplex Unilateral - Right Date of service/time: 01/03/2024 2:15:05 PM Name: MISS ARLETH ELIAS Date of : 1945 Age: 78 years Gender: F Clinical Indication Right Ax-fem and fem-fem graft 01/02/2020. TECHNIQUE -------- An arterial duplex ultrasound examination was performed, including grayscale imaging and color Doppler and spectral Doppler examination of the below mentioned arteries. FINDINGS -------- RIGHT ARTERIES Common femoral distal: PSV: 64 cm/s. EDV: 0 cm/s. Multiphasic waveform. VESSEL/GRAFT Subclavian artery distal: PSV: 194 cm/s. EDV: 0 cm/s. Multiphasic waveform. Axillary-femoral graft proximal anastomosis: PSV: 223 cm/s. EDV: 0 cm/s. Multiphasic waveform. Axillary-femoral graft proximal: PSV: 198 cm/s. EDV: 0 cm/s. Multiphasic waveform. Axillary-femoral graft mid: PSV: 157 cm/s. EDV: 0 cm/s. Multiphasic waveform. Axillary-femoral graft distal: PSV: 132 cm/s. EDV: 0 cm/s. Multiphasic waveform. Axillary-femoral graft distal anastom (more content not included)... [facility] 01-03-2024 History of Present illness Narrative Images from the original note were not included. [facility] [place] DEPARTMENT OF VASCULAR SURGERY OUTPATIENT VISIT DATE January 03, 2024 OUTPATIENT VISIT TYPE ESTABLISHED SERVICE DATE: 01/03/2024 SERVICE TIME: 3:13 PM PRIMARY CARE PHYSICIAN: Radha Little, INTERNET MANAGER, INTERNET MANAGER HISTORY OF PRESENT ILLNESS: Ms. Elias is a 78 year old female who presents today for a vascular surgery follow-up visit for her PAD. She is s/p ax bifem bypass in 2019 for aortoiliac disease. No claudication. Walks one mile without trouble. Feels great since her PPM. On DAPT. PAST MEDICAL HISTORY Diagnosis Date Cardiomyopathy (HCC) [...] year around age 36 Vaping Use Vaping status: Never Used Substance Use Topics Alcohol use: Not Currently Drug use: Never MEDICATIONS: omeprazole (PRILOSEC) 40 mg capsule Take 40 mg by mouth two times a day. Pt confirmed she is taking this medication metoprolol succinate ER (TOPROL XL) 25 mg 24 hr tablet Take 1 tablet by mouth as directed. 50 mg AM and 25 mg PM empagliflozin (JARDIANCE) 10 mg tablet Take 1 tablet by mouth daily with breakfast. furosemide (LASIX) 40 mg tablet Take 0.5 tablets by mouth once daily. clopidogrel (PLAVIX) 75 mg tablet Take by mouth every 24 hours. valsartan (DIOVAN) 40 mg tablet Take 0.5 tablets by mouth once daily. allopurinol (ZYLOPRIM) 100 mg tablet Take 100 mg by mouth once daily. spironolactone (ALDACTONE) 25 mg tablet Take 0.5 tablets by mouth once daily. magnesium oxide (MAG-OX) 400 mg (241.3 mg magnesium) tablet TAKE 1 TABLET BY MOUTH TWICE DAILY. TAKE SEPERATELY FROM DOXYCYCLINE semaglutide (OZEMPIC) 2 mg/dose (8 mg/3 mL) pen injector Inject 2 mg subcutaneously one time a week. diazePAM (VALIUM) 2 mg tablet insulin detemir U-100 (LEVEMIR) 100 unit/mL (3 mL) injection pen Inject 20 Units subcutaneously daily at bedtime. rosuvastatin (CRESTOR) 40 mg tablet Take 1 tablet by mouth daily at bedtime. blood sugar diagnostic (BLOOD GLUCOSE TEST) test strip Use as instructed to monitor glucose. One touch ultra verio test strips. Blood-Glucose Sensor (FREESTYLE LEEANN 3 SENSOR) mauricio Use new sensor every 14 days to monitor blood glucose. aspirin, enteric coated (ASPIRIN, ENTERIC COATED) 81 mg EC tablet Take 81 mg by mouth once daily. (Patient not taking: Reported on 01/03/2024) Insulin [place], Disposable, (BD ULTRA-FINE RUBIA PEN NEEDLE) 32 gauge x 5/32 ndle BD Ultra-Fine Rubia Pen Needle 32 gauge x 5/32 fluticasone (FLONASE) 50 mcg/actuation nasal spray fluticasone propionate 50 mcg/actuation nasal spray,suspension ALLERGIES: ALLERGIES Allergen Reactions Penicillins Anaphylaxis, Hives Iodinated Contrast * Other: See Comments Throat itching to some Xray dye >20-30 years ago PHYSICAL EXAM: There were no vitals taken for this visit. Incisions all well healed. Palp fem and pedal pulses B. Palp radial pulses B. Diagnostic tests reviewed for today's visit: US LEG ARTERIAL PERIPH UNL VAS LAB Order: [id number] Status: Preliminary result Visible to patient: No (not released) Next appt: 02/28/2024 at 12:50 PM in ENDOCRINOLOGY (Mikel Barahona APRN.INTERNET MANAGER) Dx: PAD (peripheral artery disease) (HCC) 0 Result Notes Narrative Non-Invasive Vascular Laboratory [facility] Lower Extremity Arterial Duplex Unilateral - Right Date of service/time: 01/03/2024 2:15:05 PM Name: MISS ARLETH ELIAS Date of : 1945 Age: 78 years Gender: F Clinical Indication Right Ax-fem and fem-fem graft 01/02/2020. TECHNIQUE -------- An arterial duplex ultrasound examination was performed, including grayscale imaging and color Doppler and spectral Doppler examination of the below mentioned arteries. FINDINGS -------- RIGHT ARTERIES Common femoral distal: PSV: 64 cm/s. EDV: 0 cm/s. Multiphasic waveform. VESSEL/GRAFT Subclavian artery distal: PSV: 194 cm/s. EDV: 0 cm/s. Multiphasic waveform. Axillary-femoral graft proximal anastomosis: PSV: 223 cm/s. EDV: 0 cm/s. Multiphasic waveform. Axillary-femoral graft proximal: PSV: 198 cm/s. EDV: 0 cm/s. Multiphasic waveform. Axillary-femoral graft mid: PSV: 157 cm/s. EDV: 0 cm/s. Multiphasic waveform. Axillary-femoral graft distal: PSV: 132 cm/s. EDV: 0 cm/s. Multiphasic waveform. Axillary-femoral graft distal anastomosis: PSV: 84 cm/s. EDV: 0 cm/s. Multiphasic waveform. Femoral-femoral graft proximal anastomosis: PSV: 104 cm/s. EDV: 0 cm/s. Multiphasic waveform. Femoral-femoral graft proximal: PSV: 94 cm/s. EDV: 0 cm/s. Multiphasic waveform. Femoral-femoral graft mid: PSV: 70 cm/s. EDV: 0 cm/s. Multiphasic waveform. Femoral-femoral graft distal: PSV: 63 cm/s. EDV: 0 cm/s. Multiphasic waveform. Femoral-femoral graft distal anastomosis: PSV: 69 cm/s. EDV: 0 cm/s. Multiphasic waveform. LEFT ARTERIES Common femoral distal: PSV: 88 cm/s. EDV: 0 cm/s. Multiphasic waveform. IMPRESSION RIGHT SIDE Axillary-femoral graft : patent . Femoral-femoral graft : patent . Technologist: Erasto Lyman BS, RVT Ordering physician: JANNY FAISAL Interpreting physician: Justin Og MD, VI IMPRESSION: Ms. Elias is a 78 year old female with patent ax-bifem bypass done for aortoiliac disease. Doing well. RTC one year with repeat duplex of graft and ABIs. SIGNATURE: Rossy Arroyo MD PATIENT NAME: Arleth Elias DATE: January 03, 2024 TIME: 3:13 PM documented in this encounter [facility] 12-28-2023 Note HNO ID: [id number] Author: STANLEY STRANGE MD Service: ? Author Type: Physician Type: Progress Notes Filed: 12/28/2023 17:21 Note Text: [facility] [place] [facility] SECTION OF HEART FAILURE and CARDIAC TRANSPLANT MEDICINE [facility] OUTPATIENT VISIT DATE December 28, 2023 OUTPATIENT VISIT TYPE Established PRIMARY CARE PHYSICIAN: Radha Little, INTERNET MANAGER ([facility]) [address] 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 Patel. She has a hx of NICM since [...] diuretics increased and referral to EP for TAIL DOGGER-D 06/14 - follow up for volume assessment - sxs slightly improved and saw EP with plans for TAIL DOGGER -D. 07/26 - s/p CT-D, feeling improved. Interval History: Arleth Elias was last seen in this clinic on 07/27/23. Since the last visit Arleth Elias, followed with Dr. Polk and Dr. patel. On follow up today, she reports feeling well. She states that her summer has been stressful due to her husbands medical issues. She does note some decreased energy - but she isn't sure if it is due to stress/motivation issues etc. She denies any edema, no chest pain/pressure/discomfort, no dyspnea with exertion, no nausea, vomiting, no orthopnea, no PND. Weight has been stable. No sudden weight fluctuations. No lightheaded, no syncope. Had EGD and was told she had some inflammation - aspirin stopped for the past few wks. Activity/Exercise: not doing much. Going to choir and muslim. Home BP: 110s/70s. CV Problem List/Medical History: Heart failure with reduced EF: suspect mostly non-ischemic CM with obstructive mLAD disease. Echo 10/04/23: LVEF 25%, LVEDD 5.4cm. RVSF wnl S/p TAIL DOGGER-D 07/02/23 Echo 05/25/23: LVEF 20%, LVEDd 6.1cm, [...] year around age 36 Vaping Use Vaping status: Never Used Substance Use Topics Alcohol use: Not Currently [...] TAKE SEPERATELY FROM DOXYCYCLINE metoprolol succinate ER (TOPROL XL) 25 mg [...] Take 0.5 tablets by mouth once daily. clopidogrel (PLAVIX) 75 mg tablet Take by mouth every 24 hours. valsartan (DIOVAN) 40 mg tablet Take 0.5 tablets by mouth once daily. rosuvastatin (CRESTOR) 40 mg tablet Take 1 tablet by mouth daily at bedtime. aspirin, enteric coated (ASPIRIN, ENTERIC COATED) 81 mg EC tablet Take 81 mg by mouth once daily. allopurinol (ZYLOPRIM) 100 mg tablet Take 100 mg by mouth once daily. omeprazole (PRILOSEC) 40 mg capsule Take 40 mg by mouth two times a day. Pt confirmed she is taking this medication diazePAM (VALIUM) 2 mg tablet sertraline (ZOLOFT) 50 mg tablet Take 25 mg by mouth once daily. insulin detemir U-100 (LEVEMIR) 100 unit/mL (3 mL) injection pen Inject 20 Units subcutaneously daily at bedtime. blood sugar diagnostic (BLOO (more content not included)... [facility] 12-28-2023 History of Present illness Narrative Images from the original note were not included. [facility] [place] [facility] SECTION OF HEART FAILURE and CARDIAC TRANSPLANT MEDICINE [facility] OUTPATIENT VISIT DATE December 28, 2023 OUTPATIENT VISIT TYPE Established PRIMARY CARE PHYSICIAN: Radha Little, INTERNET MANAGER ([facility]) [address] 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 Patel. She has a hx of NICM since [...] diuretics increased and referral to EP for TAIL DOGGER-D 06/14 - follow up for volume assessment - sxs slightly improved and saw EP with plans for TAIL DOGGER -D. 07/26 - s/p CT-D, feeling improved. Interval History: Arleth Elias was last seen in this clinic on 07/27/23. Since the last visit Arleth Elias, followed with Dr. Polk and Dr. patel. On follow up today, she reports feeling well. She states that her summer has been stressful due to her husbands medical issues. She does note some decreased energy - but she isn't sure if it is due to stress/motivation issues etc. She denies any edema, no chest pain/pressure/discomfort, no dyspnea with exertion, no nausea, vomiting, no orthopnea, no PND. Weight has been stable. No sudden weight fluctuations. No lightheaded, no syncope. Had EGD and was told she had some inflammation - aspirin stopped for the past few wks. Activity/Exercise: not doing much. Going to choir and muslim. Home BP: 110s/70s. CV Problem List/Medical History: Heart failure with reduced EF: suspect mostly non-ischemic CM with obstructive mLAD disease. Echo 10/04/23: LVEF 25%, LVEDD 5.4cm. RVSF wnl S/p TAIL DOGGER-D 07/02/23 Echo 05/25/23: LVEF 20%, LVEDd 6.1cm, [...] year around age 36 Vaping Use Vaping status: Never Used Substance Use Topics Alcohol use: Not Currently [...] TAKE SEPERATELY FROM DOXYCYCLINE metoprolol succinate ER (TOPROL XL) 25 mg [...] Take 0.5 tablets by mouth once daily. clopidogrel (PLAVIX) 75 mg tablet Take by mouth every 24 hours. valsartan (DIOVAN) 40 mg tablet Take 0.5 tablets by mouth once daily. rosuvastatin (CRESTOR) 40 mg tablet Take 1 tablet by mouth daily at bedtime. aspirin, enteric coated (ASPIRIN, ENTERIC COATED) 81 mg EC tablet Take 81 mg by mouth once daily. allopurinol (ZYLOPRIM) 100 mg tablet Take 100 mg by mouth once daily. omeprazole (PRILOSEC) 40 mg capsule Take 40 mg by mouth two times a day. Pt confirmed she is taking this medication diazePAM (VALIUM) 2 mg tablet sertraline (ZOLOFT) 50 mg tablet Take 25 mg by mouth once daily. insulin detemir U-100 (LEVEMIR) 100 unit/mL (3 mL) injection pen Inject 20 Units subcutaneously daily at bedtime. blood sugar diagnostic (BLOOD GLUCOSE TEST) test strip Use as instructed to monitor glucose. One touch ultra verio test strips. Blood-Glucose Sensor (FREESTYLE LEEANN 3 SENSOR) mauricio Use new sensor every 14 days to monitor blood glucose. Insulin [place], Disposable, (BD ULTRA-FINE RUBIA PEN NEEDLE) 32 gauge x 5/32 ndle BD Ultra-Fine Rubia Pen Needle 32 gauge x 5/32 fluticasone (FLONASE) 50 mcg/actuation nasal spray fluticasone propionate 50 mcg/actuation nasal spray,suspension REVIEW OF SYSTEMS: 10 point review of systems completed and negative unless mentioned above. PATIENT ENTERED DATA: No data to display 09/18/2020 01/20/2022 08/02/2023 PHQ-9 Score 9 2 2 11/01/2022 01/21/2023 08/02/2023 PROMIS Global Health - (T-Scores - the mean of general population = 50. Five points is a clinically meaningful difference.) Physical T-Score 37.4 37.4 47.7 Mental T-Score 41.1 41.1 59 PHYSICAL EXAMINATION: BP 114/76 Pulse 80 Wt 151 lb 10.8 oz (68.8kg) SpO2 99[RA]% General: well developed, well nourished female in no acute distress. Neck: supple, no carotid bruits. JVD <6 cm H2O. Cardiac: Regular rate and rhythm. Normal S1 and S2. No S3 or S4. No murmurs or gallops. Lungs: Good inspiratory effort, breath sounds equal. Clear to auscultation bilaterally. No wheezing, rhonchi or rales. Abdominal: soft, nontender, non-distended. Normal bowel sounds. Extremities: Edema : none. Normal Gait. Pulses: normal radial and posterior tibial artery pulses. Normal capillary refill. Skin: Warm to touch. No clubbing or cyanosis. Neuro: awake, oriented with no focal neurological deficit. Psychiatric: appropriate mood and affect for her clinical situation. CARDIOVASCULAR MEDICINE TESTING: I personally reviewed the following testing. Echo (10/07/23 The left ventricle is severely dilated. There [...] estimated RVSP today. Prior LV EF 21%. Device Eval: 10/07/23 * Normal Device Function * Alerts or events: None * Battery: OK, 10.58 yrs * Sensing, impedance and thresholds reviewed and tested * Presenting Rhythm: /LV paced * Underlying Rhythm: Sinus rhythm * Heart Rate Histograms reviewed * Pacing and Detection Parameters were evaluated LABS ADONAY High Sensitivity 17 02/16/2023 ADONAY [...] , EDVIN GDMT: - BB: toprol XL 50mgAM/ 25mg PM - ACEI/ARB/ARNI: valsartan 20mg daily - MRA: no - will try to add - SGLT2: jardiance 10mg - Vasodilators: - Device: - Cardiomems: - Other: crestor 40mg daily, lasix 20mg daily IMPRESSION and PLAN/Recommendation In summary, Arleth Elias is a 78 year old being managed today for the following issues: 1.Non-ischemic Cardiomyopathy/chronic systolic heart failure: NYHA functional class II, Stage C heart failure, Clinical Class B - warm and euvolemic. Etiology: non-ischemic with CAD. GDMT: as above. Will try to add MRA pending repeat labs. 2. CAD s/p PCI with TRACY to mLAD 02/[address] Patel - reports currently only on plavix, asa stopped by GI due to EGD findings of gastric irritation. 3. Pulmonary HTN: likely due to group 2. 4. MR: improved on most recent echo. Will follow up in ~ 6 months. Thank you for allowing me to participate in the care of your patient. I will continue to follow up with Arleth Lucio Elais in my heart failure clinic with plans to see her back in 6 months. In the interim do not hesitate to reach out to me with questions or concerns. I personally spent 42 minutes in total time involved in the management and care of this patient. Discussed the treatment plan with the patient and the potential impacts of HF care on the patient's overall well-being and cardiovascular health care maintenance. We also discussed the risks of the patient not following the treatment plan as outlined. We discussed natural history of disease, current treatment options, and future potential treatment options. We discussed diet, exercise, other non-medical management as above. Stanley Strange MD Advanced Heart Failure and Transplant [facility] [place] [address] Appointment: [phone] documented in this encounter [facility] 12-28-2023 Instructions Stanley Strange MD - 12/28/2023 1:06 PM EDT Thank you for your visit. It was great to see you today! PLEASE READ ALL THE INSTRUCTIONS Medication changes: none Blood tests: ordered for today Referral to other specialties: Additional Testing: Follow up Visit: 6 months with echo. Other instructions: Engage in 30 minutes of continuous exercise at least 4 days per week if you can tolerate Please take your blood pressures, heart rate, and weight daily. Please notify us via Thingiest if your Systolic BP (top number) < [...] heart kidney injury risk Please send a Hydro-Run message or call with any questions or concerns: Outpatient Number: [phone] Thank you, Stanley Strange MD [facility] [place] [address] --------- For [place] patients , contact: [facility]- Section Of Heart Failure and Cardiac Transplant Medicine [facility] [place] [facility] - Desk [address] [place] [address] Nurse Line and for Refills- call [phone] [facility] Scheduling Line- to make appointments- call [phone] documented in this encounter [facility] 11-29-2023 Telephone encounter Note I spoke with the patient and let her know. The procedures are rescheduled for 12/05. I faxed this response from Dr. Noe to the provider doing the EGD and colonoscopy with confirmation. [facility] 11-29-2023 Miscellaneous Notes I spoke with the patient and let her know. The procedures are rescheduled for 12/05. I faxed this response from Dr. Noe to the provider doing the EGD and colonoscopy with confirmation. Okay to hold the medicine Plavix and aspirin as requested. Pt last seen by Dr. Parker 10/21/23. Vascular surgery ordered the Plavix, so will forward to their team. documented in this encounter [facility] 11-29-2023 Telephone encounter Note Okay to hold the medicine Plavix and aspirin as requested. [facility] Work Phone: 11-29-2023 Telephone encounter Note Pt last seen by Dr. Parker 10/21/23. Vascular surgery ordered the Plavix, so will forward to their team. [facility] 11-10-2023 Telephone encounter Note Nikita 10/21/23 04/16/2024 [facility] 11-10-2023 Miscellaneous Notes Nikita 10/21/23 04/16/2024 documented in this encounter [facility] 11-08-2023 Telephone encounter Note Received request for [...] 1.44 (H) 0.58 - 0.96 mg/dL Final [facility] 11-08-2023 Miscellaneous Notes Received request for refill [...] 0.96 mg/dL Final documented in this encounter [facility] 10-21-2023 History of Present illness Narrative Images from the original note were not included. [facility] [place] SECTION OF REGIONAL CARDIOLOGY October 21, 2023 Outpatient VISIT TYPE Established PRIMARY CARE PHYSICIAN: Grayson Vega, DO [address] [place] [id number] HISTORY OF PRESENT ILLNESS: Ms. Elias is a 78 year old female with a past medical history of [employer]tronic TAIL DOGGER-D placed 06/30/2023, chronic systolic heart failure EF on last echo 25%, nonischemic cardiomyopathy, CAD status post [facility] on 06/07/2019 with 50-70% stenosis of the [...] have more energy after she has the TAIL DOGGER-D. She denies having any: chest pain, palpitations, orthopnea, LE edema, presyncope/syncope, N/V, bleeding, or other significant symptoms. TAIL DOGGER-D was placed 06/30/2023. She was seen last [...] to the mailbox previous to having the TAIL DOGGER placed. She lost weight since starting ozempic [...] to go to the pool after her TAIL DOGGER placement. Family, father had cancer. Mother was in her early 60s with CABG and a pacemaker. 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 IMPRESSION: Encounter Diagnosis ICD-10-CM 1. HFrEF (heart failure with reduced ejection fraction) ([facility]) I50.20 COMPLETE BLOOD COUNT NT PRO BNP 2. Cardiomyopathy, unspecified type ([facility]) I42.9 NT PRO BNP 3. 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 I25.10 4. Essential hypertension I10 BASIC METABOLIC PANEL 5. Mixed hyperlipidemia E78.2 6. Hyperlipidemia associated with type 2 diabetes mellitus (HCC) ([facility]) E11.69 E78.5 7. Nonrheumatic mitral valve regurgitation I34.0 8. Cardiac resynchronization therapy defibrillator (TAIL DOGGER-D) in place Z95.810 9. H/O aorto-femoral bypass Z95.828 10. Moderate obstructive sleep apnea G47.33 PLAN AND RECOMMENDATIONS: Chronic systolic heart failure with LVEF 25% now post TAIL DOGGER-D. Continue GDMT as detailed by heart failure, [...] in the LAD, IFR 0.9 on last [facility]. continue cardiac medications at this time. Continue [...] re-evaluated after further optimization with heart failure. TAIL DOGGER-D in situ and appears to be functioning [...] rare (<1.0%). Isolated VEs were occasional (1.9%, 92356), VE Couplets were rare (<1.0%, 2064), and VE Triplets were rare (<1.0%, 32). Ventricular Bigeminy and Trigeminy were present. 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 Cardiac Catheterization 06/08/2019: LM : normal Mid LAD : 50--70% cx : see initial cath TAIL DOGGER-D interrogation-10/07/23 * Normal Device Function * Alerts [...] ultra verio test strips. Blood-Glucose Sensor (FREESTYLE LEEANN 3 SENSOR) mauricio Use new sensor every 14 days to monitor blood glucose. magnesium oxide (MAG-OX) 400 mg (241.3 mg magnesium) tablet TAKE 1 TABLET BY MOUTH TWICE DAILY. TAKE SEPERATELY FROM DOXYCYCLINE aspirin, enteric coated (ASPIRIN, ENTERIC COATED) 81 mg EC tablet Take 81 mg by mouth once daily. Insulin [place], Disposable, (BD ULTRA-FINE RUBIA PEN NEEDLE) 32 gauge x 5/32 ndle BD Ultra-Fine Rubia Pen Needle 32 gauge x 5/32 allopurinol (ZYLOPRIM) 100 mg tablet Take 100 mg by mouth once daily. fluticasone (FLONASE) 50 mcg/actuation nasal spray fluticasone propionate 50 mcg/actuation nasal spray,suspension documented in this encounter [facility] 10-21-2023 Note HNO ID: [id number] Author: CHALO PATEL DO Service: ? Author Type: Physician Type: Progress Notes Filed: 10/21/2023 17:27 Note Text: [facility] [place] SECTION OF REGIONAL CARDIOLOGY October 21, 2023 Outpatient VISIT TYPE Established PRIMARY CARE PHYSICIAN: Grayson Vega DO [address] [place] [address] HISTORY OF PRESENT ILLNESS: Ms. Elias is a 78 year old female with a past medical history of Medtronic TAIL DOGGER-D placed 06/30/2023, chronic systolic heart failure EF on last echo 25%, nonischemic cardiomyopathy, CAD status post [facility] on 06/07/2019 with 50-70% stenosis of the [...] have more energy after she has the TAIL DOGGER-D. She denies having any: chest pain, palpitations, orthopnea, LE edema, presyncope/syncope, N/V, bleeding, or other significant symptoms. TAIL DOGGER-D was placed 06/30/2023. She was seen last [...] to the mailbox previous to having the TAIL DOGGER placed. She lost weight since starting ozempic [...] to go to the pool after her TAIL DOGGER placement. Family, father had cancer. Mother was in her early 60s with CABG and a pacemaker. 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 IMPRESSION: Encounter Diagnosis ICD-10-CM 1. HFrEF (heart failure with reduced ejection fraction) ([facility]) I50.20 COMPLETE BLOOD COUNT NT PRO BNP 2. Cardiomyopathy, unspecified type ([facility]) I42.9 NT PRO BNP 3. 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 I25.10 4. Essential hypertension I10 BASIC METABOLIC PANEL 5. Mixed hyperlipidemia E78.2 6. Hyperlipidemia associated with type 2 diabetes mellitus ([facility]) ([facility]) E11.69 E78.5 7. Nonrheumatic mitral valve regurgitation I34.0 8. Cardiac resynchronization therapy defibrillator (TAIL DOGGER-D) in place Z95.810 9. H/O aorto-femoral bypass Z95.828 10. Moderate obstructive sleep apnea G47.33 PLAN AND RECOMMENDATIONS: Chronic systolic heart failure with LVEF 25% now post TAIL DOGGER-D. Continue GDMT as detailed by heart failure, [...] in the LAD, IFR 0.9 on last [facility]. continue cardiac medications at this time. Continue [...] re-evaluated after further optimization with heart failure. TAIL DOGGER-D in situ and appears to be functioning [...] lb 14.1 oz) SpO2 99% BMI 24.84 kg/m? Gen.: No apparent distress, obese HEENT: normocephalic, EOMI, no JVD, No carotid bruit. Heart: (more content not included)... [facility] 10-11-2023 Telephone encounter Note Discuss JOSE MANUEL [facility] Work Phone: 10-11-2023 Miscellaneous Notes Discuss JOSE MANUEL documented in this encounter [facility] 10-11-2023 History of Present illness Narrative [facility] NEPHROLOGY & [facility] SERVICE DATE & TIME: October 11, 2023 3:19 PM PRIMARY CARE PHYSICIAN: Radha Little, GUALBERTO, INTERNET MANAGER REASON FOR CONSULT: I am asked to [...] Former Diet:Ordering out 3 times week. BF: Kevin, yogurt No TV dinners, soup, prepared foods Caffeine: Coffee 1/week Alcohol: None Activity: Walking. Rec center Home BPs: Yes - CKD: Baseline Cr 1.4 new in 2023, DAV June 2023. Cr up to 1.8 now resolved. Admitted Feb 2024 - newly decreased EF 15%. [facility] Feb 2023 with TRACY. Jardiance (started June [...] ultra verio test strips. Blood-Glucose Sensor (FREESTYLE LEEANN 3 SENSOR) mauricio Use new sensor every 14 days to monitor blood glucose. magnesium oxide (MAG-OX) 400 mg (241.3 mg magnesium) tablet TAKE 1 TABLET BY MOUTH TWICE DAILY. TAKE SEPERATELY FROM DOXYCYCLINE aspirin, enteric coated (ASPIRIN, ENTERIC COATED) 81 mg EC tablet Take 81 mg by mouth once daily. Insulin [place], Disposable, (BD ULTRA-FINE RUBIA PEN NEEDLE) 32 [...] which included preparing to see the patient, [id number] patient care, completing clinical documentation, ordering medications, tests, or procedures, independently interpreting results (not separately reported), and communicating results to the patient/family/caregiver. SIGNATURE: Concha Paris MD. PATIENT NAME: Arleth Elias DATE & TIME: October 11, 2023 3:25 PM OFFICE NUMBER: [phone] CC: REFERRING PROVIDER: Niraj Cheng PA-C PRIMARY CARE PHYSICIAN: Radha Little CNP, CNP documented in this encounter [facility] 10-11-2023 Note HNO ID: [id number] Author: CONCHA PARIS MD Service: ? Author Type: Physician Type: Progress Notes Filed: 10/11/2023 15:29 Note Text: [facility]PHROLOGY [facility] SERVICE DATE AND TIME: October 11, 2023 3:19 PM PRIMARY CARE PHYSICIAN: Radha Little CNP, CNP REASON FOR CONSULT: I am asked to [...] Former Diet:Ordering out 3 times week. BF: Kevin, yogurt No TV dinners, soup, prepared foods Caffeine: Coffee 1/week Alcohol: None Activity: Walking. Rec center Home BPs: Yes - CKD: Baseline Cr 1.4 new in 2023, DAV June 2023. Cr up to 1.8 now resolved. Admitted Feb 2024 - newly decreased EF 15%. [facility] Feb 2023 with TRACY. Jardiance (started June [...] ultra verio test strips. Blood-Glucose Sensor (FREESTYLE LEEANN 3 SENSOR) mauricio Use new sensor every 14 days to monitor blood glucose. magnesium oxide (MAG-OX) 400 mg (241.3 mg magnesium) tablet TAKE 1 TABLET BY MOUTH TWICE DAILY. TAKE SEPERATELY FROM DOXYCYCLINE aspirin, enteric coated (ASPIRIN, ENTERIC COATED) 81 mg EC tablet Take 81 mg by mouth once daily. Insulin [place], Disposable, (BD ULTRA-FINE RUBIA PEN NEEDLE) 32 [...] kg (154 lb 5.2 oz) BMI 24.91 kg/m? BP - standar (more content not included)... [facility] 10-11-2023 Telephone encounter Note A form has been received from [employer] for [facility] note. Faxed [facility] note 06/02/23 and last downloaded CGM log to [phone]. Confirmation received [facility] 10-11-2023 Miscellaneous Notes A form has been received from [email or web address] for [facility] note. Faxed [facility] note 06/02/23 and last downloaded CGM log to [phone]. Confirmation received documented in this encounter [facility] 10-07-2023 Note HNO ID: [id number] Author: GILLES REDMAN MD Service: ? Author Type: Physician Type: Progress Notes Filed: 10/11/2023 15:28 Note Text: [facility] [place] Elsy Yañez Department of Cardiovascular Medicine SECTION OF CARDIAC PACING and ELECTROPHYSIOLOGY OUTPATIENT VISIT DATE NIKITA June 15, 2023 October 07, 2023 OUTPATIENT VISIT TYPE EST PRIMARY CARE PHYSICIAN: Radha Little CNP ([facility]) [address] [place] [address] REFERRING PHYSICIAN: Radha Little CNP ([facility]) [address] [place] [address] CHIEF COMPLAINT: Severe LV dysfunction, wide QRS complex (left bundle branch block) --status post TAIL DOGGER with excellent paced QRS morphology HISTORY OF [...] been under the care of of Dr. Patel and cristopher and currently strictly compliant with excellent GDMT. She is referred to EP for consideration of primary prevention ICD therapy, and TAIL DOGGER. Underwent implant of a biventricular ICD in [...] ultra verio test strips. Blood-Glucose Sensor (FREESTYLE LEEANN 3 SENSOR) mauricio Use new sensor every 14 days to monitor blood glucose. Insulin [place], Disposable, (BD ULTRA-FINE RUBIA PEN NEEDLE) 32 [...] Stiffness , Joint swelling NEUROLOGIC/PSYCHIATRIC: Negative for: W (more content not included)... [facility] 10-07-2023 History of Present illness Narrative Images from the original note were not included. [facility] [place] Elsy Yañez Department of Cardiovascular Medicine SECTION OF CARDIAC PACING and ELECTROPHYSIOLOGY OUTPATIENT VISIT DATE NIKITA June 15, 2023 October 07, 2023 OUTPATIENT VISIT TYPE EST PRIMARY CARE PHYSICIAN: Radha Little CNP ([facility]) [address] [place] [address] REFERRING PHYSICIAN: Radha Little CNP ([facility]) [address] [place] [address] CHIEF COMPLAINT: Severe LV dysfunction, wide QRS complex (left bundle branch block) --status post TAIL DOGGER with excellent paced QRS morphology HISTORY OF [...] been under the care of of Dr. Patel and cristopher and currently strictly compliant with excellent GDMT. She is referred to EP for consideration of primary prevention ICD therapy, and TAIL DOGGER. Underwent implant of a biventricular ICD in [...] ultra verio test strips. Blood-Glucose Sensor (FREESTYLE LEEANN 3 SENSOR) mauricio Use new sensor every 14 days to monitor blood glucose. Insulin [place], Disposable, (BD ULTRA-FINE RUBIA PEN NEEDLE) 32 [...] shows BiV paced QRS morphology consistent with TAIL DOGGER, duration of the QRS is 100 ms) Reviewed echocardiogram with Dr. Cameron --though EF remains depressed, there is improvement in septal contractility, there appears to be less dyssynchrony., Mitral regurgitation is also less. [facility] 02/2023 [place] Coronary Artery Disease in the LAD (Severe) [...] think she is responding quite nicely to TAIL DOGGER. Will continue to monitor quarterly with remotes. And annual in person visits. To further optimize GDMT, I increased Toprol to 50 mg in the morning and 25 mg in the evening. Annual with EP team CONTACT INFORMATION: Gilles Cormier MD Okay thank you make sure I do it before I leave yeah I had received her documented in this encounter [facility] 10-07-2023 Nurse Note IV Access: IV IV Site: right Antecubital IV GAUGE 22 gauge IV Removal Date October 07, 2023 Time 11:08 AM Reactions: WNL Order reviewed by nurse:yes Medications: Definity - dosage 2mL Reaction: No LOT: [id number] EXP: 07/2024 [facility] #[id number] MFG: [employer] [facility] 10-07-2023 Nurse Note IV Access: IV IV Site: right Antecubital IV GAUGE 22 gauge IV Removal Date October 07, 2023 Time 11:08 AM Reactions: WNL Order reviewed by nurse:yes Medications: Definity - dosage 2mL Reaction: No LOT: [id number] EXP: 07/2024 [facility] #[id number] MFG: [employer] 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 Pt identified by name and Pt given message below Stated understanding Pt asking if paperwork has been signed- she lives [place] hour away and will 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 once signed Would like to 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 today Patient assistance medication from Omid nordisk received for 4bxs of Ozempic Patient assistance form completed per protocol Placed form on mikel's desk to sign documented in this encounter [facility] 09-24-2023 Telephone encounter Note Pt identified by name and Pt given message below Stated understanding Pt asking if paperwork has been signed- she lives an hour away and will 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 once signed Would like to 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 today [facility] 09-23-2023 Telephone encounter Note Patient assistance medication from Omid nordisk received for 4bxs of Ozempic Patient assistance form completed per protocol Placed form on mikel's desk to sign [facility] 09-10-2023 Telephone encounter Note Noted [facility] 09-10-2023 Miscellaneous Notes Noted documented in this encounter [facility] 08-03-2023 Instructions Dahiana Barth APRN.INTERNET MANAGER - 08/03/2023 2:16 PM EDT ERASMO Evaluation: [...] You need to call to schedule this. [phone]. - Discussed with the patient the possible [...] find that out prior to our visit. [facility] Requirements - Your insurance requires a [id number] follow up visit within a 31-90 day [...] 6 months *Self-Pay documented in this encounter [facility] 08-03-2023 History of Present illness Narrative Images from the original note were not included. [facility] Follow up/ Established patient visit Date of last visit : 09/25/2021 IMPRESSION/PLAN: G47.33 Obstructive sleep apnea (primary encounter diagnosis) G47.33 Obstructive sleep apnea syndrome I10 Essential hypertension E78.2 Mixed hyperlipidemia I50.20 Systolic heart failure, unspecified HF chronicity (HCC) I42.9 Cardiomyopathy, unspecified type (HCC) I25.10 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 E11.51, Z79.4 Type [...] to review results and discuss next steps. Dahiana Barth APRN.INTERNET MANAGER I have communicated my name and active licensure. The patient's identity and physical location were verified at the time of this visit. Either the patient or their legal bilingual sales representative has been informed of the risks [...] has had a pacemaker. She reports her polysom tech sent a prescription for her to obtain [...] near accidents due to drowsy drivin 01/20/2022 [place] Sleepiness Scale Score 1 (No daytime sleepiness) [...] ultra verio test strips. Blood-Glucose Sensor (FREESTYLE LEEANN 3 SENSOR) mauricio Use new sensor every [...] 81 mg by mouth once daily. Insulin [place], Disposable, (BD ULTRA-FINE RUBIA PEN NEEDLE) 32 [...] gangrene, with long-term current use of insulin ([facility]) 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 Cardiomyopathy, unspecified type ([facility]) Systolic heart failure, unspecified hf chronicity ([facility]) Class 1 obesity due to excess calories with serious comorbidity and body mass index (bmi) of 32.0 to 32.9 in adult Intermittent claudication of both lower extremities due to atherosclerosis ([facility]) Acute heart failure with reduced ejection fraction and diastolic dysfunction (hcc) Aortoiliac occlusive disease (hcc) Chronic systolic congestive heart failure (hcc) Hfref (heart failure with reduced ejection fraction) (hcc) Lbbb (left bundle branch block) Status post angioplasty with stent This is a pleasant 77 yo F with a PMH of ERASMO, CHF, LBBB, cardiomyopathy pacemaker, HTN, DM and HLP who presents virtually for follow up of ERASMO. She was last seen in 2021 and ordered HSAT, there has not been follow up. She notes her polysom tech ordered PAP therapy twice, however she never [...] You need to call to schedule this. [phone]. - Discussed with the patient the possible [...] find that out prior to our visit. Dahiana Barth APRN.CNP I spent a total of 30 minutes on the date of the service which included preparing to see the patient, [id number] patient care, completing clinical documentation, counseling and educating the patient/family/caregiver, ordering medications, tests, or procedures, and communicating results to the patient/family/caregiver. documented in this encounter [facility] 07-27-2023 History of Present illness Narrative Images from the original note were not included. [facility] [place] [facility] SECTION OF HEART FAILURE and CARDIAC TRANSPLANT MEDICINE [facility] OUTPATIENT VISIT DATE July 27, 2023 OUTPATIENT VISIT TYPE Established PRIMARY CARE PHYSICIAN: Radha Little, INTERNET MANAGER ([facility]) [address] [place] [address] CHIEF COMPLAINT: Follow up post TAIL DOGGER-D HISTORY OF PRESENT ILLNESS: Arleth Elias is a 77 year old female with a medical history that includes heart failure with recovered LVEF (25% --> 61%) and newly reduced again, CAD now s/p PCI to LAD 02/2023, HTN, HLD PVD s/p right axillobifemoral bypass 12/2019, DM who follows with Dr. Patel. She has a hx of NICM since 2018, LVEF ana maria 35%, ischemic work up [...] diuretics increased and referral to EP for TAIL DOGGER-D 06/14 - follow up for volume assessment - sxs slightly improved and saw EP with plans for TAIL DOGGER -D. Interval History: Arleth Elias was last seen in this clinic on 06/15/23. Since the last visit Arleth Elias is not s/p TAIL DOGGER-D. On follow up today, she reports feeling [...] non-ischemic CM with obstructive mLAD disease. S/p TAIL DOGGER-D 07/02/23 Echo 05/25/23: LVEF 20%, LVEDd 6.1cm, [...] ultra verio test strips. Blood-Glucose Sensor (FREESTYLE LEEANN 3 SENSOR) mauricio Use new sensor every 14 days to monitor blood glucose. CPAP/BIPAP/OTHER Type .CPAPSettings into a note to see current settings/supplies/DME information. magnesium oxide (MAG-OX) 400 mg (241.3 mg magnesium) tablet TAKE 1 TABLET BY MOUTH TWICE DAILY. TAKE SEPERATELY FROM DOXYCYCLINE aspirin, enteric coated (ASPIRIN, ENTERIC COATED) 81 mg EC tablet Take 81 mg by mouth once daily. Insulin [place], Disposable, (BD ULTRA-FINE RUBIA PEN NEEDLE) 32 [...] 97.9%, VSR paced 1.8%, VS 0.3%. Adaptive TAIL DOGGER shows BiV pacing 1.8%, LV pacing 98.2%. [...] 10mg daily - Vasodilators: no - Device: TAIL DOGGER-D - Cardiomems: no - Other: lasix 40mg [...] Dr. Polk then and soon after Dr. Patel. Can follow up with me in 4-5 months 2. CAD s/p PCI with TRACY to mLAD 02/2023 Continue with DAPT and statin. Following with Dr. Patel. 3. Pulmonary HTN: likely due to group [...] Strange MD Advanced [facility] Failure [facility] Trans[facility] [place] [address] Appointment: [phone] documented in this encounter [facility] 07-27-2023 Instructions Stanley Strange MD - 07/27/2023 [...] and weight daily. Please notify us via Reelation if your Systolic BP (top number) < [...] heart kidney injury risk Please send a Hydro-Run message or call with any questions or concerns: Outpatient Number: [phone] Thank you, Stanley Strange MD [facility] [place] [address] documented in this encounter [facility] 07-15-2023 Instructions Niraj Cheng PA-C - 07/15/2023 1:47 PM EDT - ok to increase lifting some on the left arm - 1 more week before you can lift left arm above shoulder level - Remote pacer checks every 3 months will be in eASIChart - Update echo in the month of September to re-look at heart function - See if we can coordinate appt with Dr Polk with a device check also in September Niraj Cheng PA-C documented in this encounter [facility] 07-15-2023 History of Present illness Narrative Images from the original note were not included. [facility] [place] Elsy Yañez Department of Cardiovascular Medicine SECTION OF CARDIAC PACING and ELECTROPHYSIOLOGY OUTPATIENT VISIT DATE July 15, 2023 OUTPATIENT VISIT TYPE ESTABLISHED PRIMARY CARE PHYSICIAN: Radha Little, INTERNET MANAGER () [address] [place] [address] CHIEF COMPLAINT: Cardiology follow up HISTORY OF PRESENT ILLNESS: Ms. Elias is a 77 year old female who presents today for follow-up visit. She is a patient of Dr Ladd with history of HTN, DM II, persistent LV dysfunction since 2019, PAD (aortoiliac disease status post Right axillobifemoral bypassbypass), CAD s/p PCI, chronic HFrEF, LBBB on EKG. She was recommended to undergo TAIL DOGGER-D implantation which was done on 06/30/2023. Here for follow up with a device check Reports she is feeling well since implant. Site has been healing well for her. Device check done today showing no arrhythmias and she is LV pacing 98.2%. Describes having a scenario at [facility] where she had to go up multiple [...] ultra verio test strips. Blood-Glucose Sensor (FREESTYLE LEEANN 3 SENSOR) mauricio Use new sensor every 14 days to monitor blood glucose. CPAP/BIPAP/OTHER Type .CPAPSettings into a note to see current settings/supplies/DME information. magnesium oxide (MAG-OX) 400 mg (241.3 mg magnesium) tablet TAKE 1 TABLET BY MOUTH TWICE DAILY. TAKE SEPERATELY FROM DOXYCYCLINE aspirin, enteric coated (ASPIRIN, ENTERIC COATED) 81 mg EC tablet Take 81 mg by mouth once daily. Insulin [place], Disposable, (BD ULTRA-FINE RUBIA PEN NEEDLE) 32 [...] Implantation of a MEDTRONIC CROME HF QUAD TAIL DOGGER-D MRI SURE SCAN [id number] pulse generator. Leads: - Implantation of a [...] with the prior echocardiographic exam performed on 02/18/2023([facility]). LV is more dilated, severity of MR, [...] on EKG. She was recommended to undergo TAIL DOGGER-D implantation which was done on 06/30/2023. Doing [...] September to reassess her LV function after TAIL DOGGER therapy. Will arrange this, a device check, and a follow-up visit with Dr. Polk all at the same time I personally interviewed, confirmed and edited the above information as obtained by others. CONTACT INFORMATION: Niraj Cheng PA-C I spent 35 minutes in the visit, with more than 50% of the total [id number] time of the visit in counseling / coordination of care. documented in this encounter [facility] 07-05-2023 History of Present illness Narrative [facility] [place] Department of Cardiovascular Medicine VIRTUAL VIDEO VISIT [...] visit. Either the patient or their legal bilingual sales representative has been informed of the risks [...] bypass 12/2019, DM who follows with Dr. Patel. She has a hx of NICM since [...] 5.8cm. CAD s/p PCI to mLAD with TARCY 02/2023 PVD s/p right axillobifemoral bypass 12/2019 [...] ultra verio test strips. Blood-Glucose Sensor (FREESTYLE LEEANN 3 SENSOR) mauricio Use new sensor every 14 days to monitor blood glucose. CPAP/BIPAP/OTHER Type .CPAPSettings into a note to see current settings/supplies/DME information. aspirin, enteric coated (ASPIRIN, ENTERIC COATED) 81 mg EC tablet Take 81 mg by mouth once daily. Insulin [place], Disposable, (BD ULTRA-FINE RUBIA PEN NEEDLE) 32 [...] up lab work in 2 weeks. S/p TAIL DOGGER-D and reports improvement overall. Will get repeat [...] Strange MD [facility] Failure [facility] Trans[facility] [place] [address] Appointment: [phone] documented in this encounter [facility] 07-01-2023 Miscellaneous Notes Spoke with pt. Asked that we send her a Hydro-Run message and she will call to schedule with Kidney Medicine. Dr Polk would like patient to establish with Nephrology for DAV on CKD Please help arrange Niraj Cheng PA-C documented in this encounter [facility] 07-01-2023 Note HNO ID: [id number] Author: NIRAJ CHENG PA-C Service: Electrophysiology Author Type: Physician Merchant Mill Utility Worker Type: Progress Notes Filed: 07/01/2023 10:25 Note [...] Implantation of a MEDTRONIC CROME HF QUAD TAIL DOGGER-D MRI SURE SCAN [id number] pulse generator. Leads: - Implantation of a MEDTRONIC 6935M-62 right ventricular lead. - Implantation of a MEDTRONIC 5076 right atrial lead. - Implantation of a [employer]TR[employer]IC ATTAIN STABILITY QUAD MRI SURESCAN [id number] LV/CS CXR: July 01, 2023 ASSESSMENT AND PLAN Severe LV dysfunction/chronic HFrEF - s/p BiV ICD placement on 3/[address] Polk - Dressing removed this morning; has some bruising but no hematoma - Wound care discussed and placed in dc instructions - EKG and CXR done and reviewed - Device check being done at bedside now - Resuming plavix - Discharging home as planned with close follow up in the office SIGNATURE: Niraj Cheng PA-C PATIENT NAME: Arleth Elias DATE: July 01, 2023 TIME: 7:54 AM PAGER/CONTACT #: SEE BELOW For communication after 5 pm on weekdays and on weekends, please page the following: - [facility] General Cardiology Consult: Team A pager [phone], Team B pager [phone] - [facility] Electrophysiology Consult pager [phone] - [facility] Cardiology Consult Pager [phone] [id number] [phone] [facility] 06-30-2023 Note HNO ID: [id number] Author: PATRICIA COPELAND APRN.FOUNDRY MANAGER Service: Anesthesiology Author Type: Nurse Messaging Architect Type: Anesthesia Procedure Notes Filed: 06/30/2023 15:24 Note Text: ANESTHESIOLOGY PROCEDURE NOTE PIV General Information Procedure Start Time/Medication Administration: 06/30/2023 3:03 PM Patient Location: OR Staffing Anesthesiologist: Lindsey Decker DO FOUNDRY MANAGER: Patricia Copeland APRN.FOUNDRY MANAGER Performed by: anesthesiologist Preparation Sterility Preparation: hand hygiene performed prior to procedure, mask used Site Prep: chlorhexidine Procedure Details Indication: need for IV access Needle Size/Type: 18 gauge angiocath Orientation: Left Location: Hand Imaging Guidance Used: No SIGNATURE: Patricia Copeland APRN.CRNA PATIENT NAME: Arleth Elias DATE: June 30, 2023 TIME: 3:24 PM CSN: [id number] [facility] 06-30-2023 Note HNO ID: [id number] Author: PATRICIA COPELAND APRN.FOUNDRY MANAGER Service: Anesthesiology Author Type: Nurse Messaging Architect Type: Anesthesia Procedure Notes Filed: 06/30/2023 15:23 Note Text: ANESTHESIOLOGY PROCEDURE NOTE Airway General Information Procedure Start Time/Medication Administration: 06/30/2023 2:59 PM Patient location during procedure: OR Timeout Performed Pre-procedure: timeout performed Consent Obtained: Yes 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, care steam shovelman and patient Staffing Anesthesiologist: Lindsey Decker DO FOUNDRY MANAGER: Patricia Copeland APRN.FOUNDRY MANAGER Performed by: FOUNDRY MANAGER Indications and Patient Condition Indications for airway [...] lips in pre-anesthetic condition SIGNATURE: Patricia Copeland APRN.FOUNDRY MANAGER PATIENT NAME: Arleth Elias DATE: June 30, 2023 TIME: 3:21 PM CSN: [id number] [facility] 06-22-2023 Miscellaneous Notes PT called in for lab order. Request completed and no further questions. documented in this encounter [facility] 06-17-2023 Telephone encounter Note Patient will no longer fill jardiance with [facility] and will instead use their preferred pharmacy, [facility]. Patient is aware of RX transfer process and will initiate this for their next fill. No further action is required by your office. Profile will be canceled, as will future prior authorization approvals and adherence calls completed by the pharmacy team. Thank you, [facility] [phone] [facility] 06-17-2023 Miscellaneous Notes Patient will no longer fill jardiance with [facility] and will instead use their preferred pharmacy, [facility]. Patient is aware of RX transfer process and will initiate this for their next fill. No further action is required by your office. Profile will be canceled, as will future prior authorization approvals and adherence calls completed by the pharmacy team. Thank you, [facility] [phone] documented in this encounter [facility] 06-17-2023 Miscellaneous Notes Called and scheduled patient and sent my chart with instructions. Follow up scheduled. ----- Message from Gilles Cormier MD sent at 06/17/2023 12:44 PM EST ----- MAC please EPS Lab Request: Device Patient: Arleth Elias Requested by: Gilles Cormier MD Requesting Physician: MD Elba Procedure Physician: MD Elba Procedure Requested: BIV ICD CPT: 63275; 89349 (CS LEAD) Date of Last H&P? Indications / Dx for Procedure: CHF Procedure Time Frame: First Available Estimated length of case: 3 HOURS Device Company: [employer] Patient: No Type of Bed: [...] Wednesday, Jun 04. documented in this encounter [facility] 06-17-2023 History of Present illness Narrative Images from the original note were not included. [facility] [place] SECTION OF REGIONAL CARDIOLOGY June 17, 2023 Outpatient VISIT TYPE Established PRIMARY CARE PHYSICIAN: Grayson Vega DO [address] [place] [id number] HISTORY OF PRESENT ILLNESS: Ms. Elias is a 77 year old female with a past medical history of Chronic systolic heart failure recovered LVEF 35%->61%, nonischemic cardiomyopathy, CAD status post C on 06/07/2019 with 50-70% stenosis of the [...] by EP and recommended to have a TAIL DOGGER-D which should happen later this month. Today, she tells me that she has shortness of breath when she is walking. She did cardiac rehab yesterday for 40 minutes. He ankles were swollen for a bit yet, this has improved with weightloss. She is hoping that she will have more energy after she has the TAIL DOGGER-D. She denies having any: chest pain, palpitations, [...] HFrEF (heart failure with reduced ejection fraction) ([facility]) I50.20 4. Cardiomyopathy, unspecified type ([facility]) I42.9 5. 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 I25.10 6. Essential hypertension I10 BASIC METABOLIC PNL 7. Mixed hyperlipidemia E78.2 8. Hyperlipidemia associated with type 2 diabetes mellitus (HCC) ([facility]) E11.69 E78.5 9. Moderate obstructive sleep apnea G47.33 10. H/O aorto-femoral bypass Z95.828 11. Class 1 obesity due to excess calories with serious comorbidity and body mass index (BMI) of 30.0 to 30.9 in adult E66.09 Z68.30 PLAN AND RECOMMENDATIONS: SOB and fatigue noted. Possibly secondary to heart failure. Currently seeing [facility] heart [facility] as well as EP for TAIL DOGGER-D placement. Presently she is wearing a LifeVest. [...] in the LAD, IFR 0.9 on last [facility]. continue cardiac medications at this time. Continue [...] with the prior echocardiographic exam performed on 02/18/2023([place]). LV is more dilated, severity of MR, [...] rare (<1.0%). Isolated VEs were occasional (1.9%, 23823), VE Couplets were rare (<1.0%, 2064), and [...] ultra verio test strips. Blood-Glucose Sensor (FREESTYLE LEEANN 3 SENSOR) mauricio Use new sensor every 14 days to monitor blood glucose. CPAP/BIPAP/OTHER Type .CPAPSettings into a note to see current settings/supplies/DME information. magnesium oxide (MAG-OX) 400 mg (241.3 mg magnesium) tablet TAKE 1 TABLET BY MOUTH TWICE DAILY. TAKE SEPERATELY FROM DOXYCYCLINE aspirin, enteric coated (ASPIRIN, ENTERIC COATED) 81 mg EC tablet Take 81 mg by mouth once daily. Insulin [place], Disposable, (BD ULTRA-FINE RUBIA PEN NEEDLE) 32 gauge x 5/32 ndle BD Ultra-Fine Rubia Pen Needle 32 gauge x 5/32 allopurinol (ZYLOPRIM) 100 mg tablet Take 100 mg by mouth once daily. fluticasone (FLONASE) 50 mcg/actuation nasal spray fluticasone propionate 50 mcg/actuation nasal spray,suspension Signed: Chalo Patel DO June 17, 2023 documented in this encounter [facility] 06-15-2023 History of Present illness Narrative Images from the original note were not included. [facility] [place] Elsy Yañez Department of Cardiovascular Medicine SECTION OF CARDIAC PACING and ELECTROPHYSIOLOGY OUTPATIENT VISIT DATE June 15, 2023 OUTPATIENT VISIT TYPE NEW PRIMARY CARE PHYSICIAN: Radha Little CNP ([facility]) [address] [place] [address] REFERRING PHYSICIAN: Radha Little CNP ([facility]) [address] [place] [address] CHIEF COMPLAINT: Severe LV dysfunction, wide QRS [...] been under the care of of Dr. Patel and cristopher and currently strictly compliant with excellent GDMT. She is referred to EP for consideration of primary prevention ICD therapy, and TAIL DOGGER. She denies chest pain, shortness of breath, [...] ultra verio test strips. Blood-Glucose Sensor (FREESTYLE LEEANN 3 SENSOR) mauricio Use new sensor every 14 days to monitor blood glucose. CPAP/BIPAP/OTHER Type .CPAPSettings into a note to see current settings/supplies/DME information. magnesium oxide (MAG-OX) 400 mg (241.3 mg magnesium) tablet TAKE 1 TABLET BY MOUTH TWICE DAILY. TAKE SEPERATELY FROM DOXYCYCLINE aspirin, enteric coated (ASPIRIN, ENTERIC COATED) 81 mg EC tablet Take 81 mg by mouth once daily. Insulin [place], Disposable, (BD ULTRA-FINE RUBIA PEN NEEDLE) 32 [...] with the prior echocardiographic exam performed on 02/18/2023([place]). LV is more dilated, severity of MR, TR and RVSP have increased. * * * Final * * * [facility] 02/2023 [place] Coronary Artery Disease in the LAD (Severe) [...] surgery, to minimize bleeding risk. CONTACT INFORMATION: Gilles Cormier MD documented in this encounter [facility] 06-10-2023 Miscellaneous Notes Called Ms. Elias regarding [...] the nearest ED. documented in this encounter [facility] 06-04-2023 Miscellaneous Notes Called Ms. Elias with regards to her message. Reports dyspnea is improving and so are her symptoms. Given this will leave lasix at 40mg AM and 20mg PM and follow up lab work on Wednesday regarding further changes. All questions answered. documented in this encounter [facility] 06-02-2023 Procedure note Procedure(s): EXTERNAL DESK PENS ASSEMBLER, CGM SYS Images from the original note were not included. documented in this encounter [facility] 06-02-2023 History of Present illness Narrative Endocrinology [...] Findings: Dates worn: 05/20/23- 06/02/23 CGM Type: ZootRockyle Leeann 1- CGM recording is adequate for interpretation. [...] - Blood Glucose Tests Blood-Glucose Sensor (FREESTYLE LEEANN 3 SENSOR) mauricio Use new sensor every 14 days to monitor blood glucose. Medical Supplies and DME - Glucose Monitoring Test Supplies CPAP/BIPAP/OTHER Type .CPAPSettings into a note to see current settings/supplies/DME information. Medical Supply, [employer] Superset fluticasone (FLONASE) 50 mcg/actuation nasal spray fluticasone propionate 50 mcg/actuation nasal spray,suspension Nasal Corticosteroids Insulin [place], Disposable, (BD ULTRA-FINE RUBIA PEN NEEDLE) 32 gauge x 5/32 ndle BD Ultra-Fine Rubia Pen Needle 32 gauge x 5/32 Medical Supplies and DME - Insulin [place]-Syringes and Admin Supplies Lancets lancets Use as [...] exam and has no history of retinopathy --[facility] [place] July 2022. Patient to continue to follow [...] which included preparing to see the patient, [id number] patient care, completing clinical documentation, obtaining and/or reviewing separately obtained history, performing a medically appropriate examination, counseling and educating the patient/family/caregiver, ordering medications, tests, or procedures, independently interpreting results (not separately reported), and communicating results to the patient/family/caregiver. Mikel Barahona APRN.GUALBERTO (Signed electronically to expedite mailing) documented in this encounter [facility] 05-31-2023 Nurse Note Images from the original note were not included. [facility] [place] Elsy Yañez Department of Cardiovascular Medicine OUTPATIENT [...] Stanley Strange MD documented in this encounter [facility] 05-31-2023 History of Present illness Narrative Images from the original note were not included. [facility] [place] [facility] SECTION OF HEART FAILURE and CARDIAC TRANSPLANT MEDICINE [facility] OUTPATIENT VISIT DATE May 31, 2023 OUTPATIENT VISIT TYPE New Patient PRIMARY CARE PHYSICIAN: Radha Little CNP ([facility]) [address] [place] [address] CHIEF COMPLAINT: Establish Care HISTORY OF PRESENT ILLNESS: Arleth Elias is a 77 year old female with a medical history that includes heart failure with recovered LVEF (25% --> 61%) and newly reduced again, CAD now s/p PCI to LAD 02/2023, HTN, HLD PVD s/p right axillobifemoral bypass 12/2019, DM who follows with Dr. Patel. She has a hx of NICM since 2019, LVEF ana maria 35%, ischemic work up at that time with non-obstructive CAD. She was managed on medication and LVEF had improved to ~ 60% 03/2020 and in 09/2022 LVEF noted to be ~ 48-50%. She has been getting regular follow up and in Feb she presented to [facility] after an echocardiogram was done which noted a depressed LVEF. She was transferred to s/p [facility] wit discrete ~70% LAD lesion, + iFR [...] daily at bedtime.^Disp: ^Rfl: Blood-Glucose Sensor (FREESTYLE LEEANN 3 SENSOR) mauricio^Use new sensor every 14 [...] mg by mouth once daily.^Disp: ^Rfl: Insulin [place], Disposable, (BD ULTRA-FINE RUBIA PEN NEEDLE) 32 [...] 09/2022: LVEF 48%, RV wnl. Ischemic - LHC 02/2023 [place] Coronary Artery Disease in the LAD (Severe) [...] she would benefit from EP eval for TAIL DOGGER. 2. CAD s/p PCI with TRACY to [...] Strange MD [facility] [place] [address] Appointment: [phone] documented in this encounter [facility] 05-31-2023 Instructions Stanley Strange MD - 05/31/2023 [...] and weight daily. Please notify us via Reelation if your Systolic BP (top number) < [...] heart kidney injury risk Please send a Hydro-Run message or call with any questions or concerns: Outpatient Number: [phone] Thank you, Stanley Strange MD Advanced [facility] Failure [facility] Trans[facility] Scheduling Line- to make appointments- call [phone] documented in this encounter [facility] 05-28-2023 Miscellaneous Notes Spoke with pt to confirm appt/address/floor with Dr. Strange on 05/31/23. Pt confirmed understanding and address. documented in this encounter [facility] 05-20-2023 Miscellaneous Notes The following approved medication requests have been transmitted electronically. Requested Prescriptions Signed Prescriptions Disp Refills valsartan (DIOVAN) 40 mg tablet 45 tablet 3 Sig: Take 0.5 tablets by mouth once daily. Jeffrey Steiner APRN.GUALBERTO NIKITA 03/22/23 documented in this encounter [facility] 05-19-2023 Miscellaneous Notes The following approved medication requests have been transmitted electronically. Requested Prescriptions Signed Prescriptions Disp Refills rosuvastatin (CRESTOR) 40 mg tablet 90 tablet 3 Sig: Take 1 tablet by mouth daily at bedtime. Authorizing Provider: CHALO PATEL Ordering User: JEFFREY STEINER APRN.INTERNET MANAGER Last office visit 03/22/23 Future appt scheduled 06/17/23 Last Lipid 12/15/22 Last CMP 02/24/23 documented in this encounter [facility] 03-19-2023 Miscellaneous Notes Form faxed , confirmation received. Called [facility] regarding CGM update. [facility] states they do no even have this patient in their system. Unable to find information in chart regarding forms for CGM. documented in this encounter [facility] 03-19-2023 Miscellaneous Notes Faxed a form to [facility] for Physician's Written order for CGM and supplies. Faxed with facesheet, copy of insurance cards and last office notes. Confirmation received. Sent for scan. documented in this encounter [facility] 03-16-2023 Miscellaneous Notes Received 2 Pens of Ozempic from [employer] [facility]. Processed per protocol. Patient notified. documented in this encounter [facility] 03-11-2023 Miscellaneous Notes Placed Renewal Patient Assistance form on Mikel's desk for Omid Nordisk for Ozempic 2mg. ( Dose increase for 2023 form). Sent Patient her portion of the form to be completed. documented in this encounter [facility] 03-11-2023 Miscellaneous Notes Received a form from Yi De for Written Order for diabetic testing supplies. Placed on Andre Phillipe's desk, awaiting completion. documented in this encounter [facility] 02-26-2023 Miscellaneous Notes Form completed, faxed with last office notes, confirmation received. Sent for scan. Received a form from [employer] for Written Order for diabetic testing supplies. Placed on Andre Phillipe's desk, awaiting completion. Mikel will return to office 03/01/23 documented in this encounter [facility] 02-25-2023 Miscellaneous Notes Sent this message to patient in later encounter. Went to [facility] via squad rehydrated with water/orally, not IV no meds changed that I can see Cr was 1.72 (was 0.89 on 02/18 at [facility]) I will have her decrease her [...] and sxs if BP <90/60, hold the diovan Dwight Ross, RN, MSN, EMERGING TECHNOLOGIES DIRECTOR-C Adult Nurse Practitioner Chad and Apoorva Yañez Department of Cardiovascular Medicine [facility] Heart, Vascular, Thoracic [place] [facility] documented in this encounter [facility] 02-24-2023 History of Present illness Narrative [facility] SE[facility]IONAL CARDIOLOGY 02/24/2023 OUTPATIENT VISIT TYPE HEART FAILURE FOLLOW UP PRIMARY CARE PHYSICIAN: Radha Little, GUALBERTO, INTERNET MANAGER SUBJECTIVE: CHIEF COMPLAINT: hospital follow up for [...] mild carotid atherosclerosis. She follows with Dr. Patel- last seen 12/17/2022 and at that time was doing well-- no meds/plan of care changed at that appointment. Patient presented to the [place] ED 02/16/2023 after receiving a call from [facility] advising her to follow-up with her feed miller for an EF of ~15% on echocardiogram completed 02/15/2023. Patient was admitted to [facility] last week for chest pressure and shortness of breath that had been present for several weeks. Was initially sent home without a change to meds/plan of care. In the [facility] [place] ER: HS troponin: 16 --> 16 -->17, [...] the prior CC echocardiographic exam performed on 09/10/2022 report comparison [...] the prior CC echocardiographic exam performed on 10/09/21. The LVEF [...] Units subcutaneously daily at bedtime. Blood-Glucose Sensor (TrivialaSTYLE LEEANN 3 SENSOR) mauricio Use new sensor every [...] tablet by mouth daily at bedtime. Insulin [place], Disposable, (BD ULTRA-FINE RUBIA PEN NEEDLE) 32 [...] (BD POSIFLUSH) PERTINENT LABORATORY STUDIES reviewed in EPIC PHYSICAL EXAMINATION: BP 81/56 (BP Site: Left [...] WITHOUT INTERVENTION -- she was taken to [facility] by 911 maria eugenia Last 4 Encounter Wt Readings: Date: Wt: [...] emergency documented above - patient went to [facility] ER by squad, pertinent documentation including ECG, [...] the hospital will anticipate medication changes Dwight Ross RN, MSN, EMERGING TECHNOLOGIES DIRECTOR-C Adult Nurse Practitioner Cardiology [facility] ALLERGIES Allergen Reactions Penicillins Anaphylaxis, Hives Iodinated Contrast * Other: See Comments Throat itching to some Xray dye >20-30 years ago ACTIVE PROBLEM LIST Status Post Angioplasty With Stent - 02/17/2023 Acute Heart Failure With Reduced Ejection Fraction and Diastolic Dysfunction ([facility]) - 02/16/2023 Aortoiliac Occlusive Disease ([facility]) - 01/02/2020 Comment: S/p right axillo-femoral bypass graft on 01/01 Plan: Started ASA on POD 1 at 325mg Daily per Vascular surgeon Coronary Artery Disease - 06/08/2019 Cardiomyopathy ([facility]) - 06/07/2019 Preoperative Testing - 06/07/2019 Intermittent 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 There is mild concentric left ventricular hypertrophy. Left ventricular systolic function is normal. EF = 54 5% Home Medication Regimen: Coreg 25mg BID, lisinopril 40mg daily Plan: Lasix started by Cardiology Hold lisinopril due to recent hypotension Coreg restarted by cardiology Discontinue aldactone per cardiology Nonsustained Ventricular Tachycardia ([facility]) - 12/22/2018 Bruit of Left Carotid Artery - 12/22/2018 Claudication ([facility]) - 11/18/2018 Primary Hypertension - 11/18/2018 Comment: [...] Drug use: Never documented in this encounter [facility] 02-19-2023 Note HNO ID: [id number] Author: Luann Balderas APRN.CNP, DNP Service: Cardiovascular Medicine Author Type: Nurse Practitioner Type: Plan of Care Filed: 03/18/2023 11:00 AM Note Text: Echo 02/18/23: EF 31%, wall motion abnormalities, LBBB, 2-3+ MR. NYHA Functional Class II-III. Luann Balderas DNP Cardiovascular Medicine [facility] 02-19-2023 Note HNO ID: [id number] Author: Shay Church Service: ? Author Type: ? Type: Plan of Care Filed: 02/19/2023 9:50 AM Note Text: PHARMACY BEDSIDE DELIVERY SERVICE Patient Name: Alreth Elias The marked outpatient medications were Filled at: [place] and delivered to the patient's bedside to [place] [id number] Medication List START taking these medications clopidogrel [...] NEEDLE 32 gauge x Generic drug: Insulin [place] (Disposable) BLOOD GLUCOSE TEST test strip Generic drug: blood sugar diagnostic Use as instructed to monitor glucose. One touch ultra verio test strips. carvedilol 25 mg tablet Commonly known as: COREG Take 1 tablet by mouth twice daily. CPAP/BIPAP/OTHER Type .CPAPSettings into a note to see current settings/supplies/DME information. fluticasone 50 mcg/actuation nasal spray Commonly known as: FLONASE FREESTYLE LEEANN 3 SENSOR Mauricio Generic drug: Blood-Glucose Sensor [...] your Primary Care Provider. Shay Church PAGER: [phone] February 19, 2023 9:49 AM [facility] 02-18-2023 Note HNO ID: [id number] Author: Tabitha Valles LISW Service: Care Management Author Type: Vehicle Body Maker Type: Care Mgt Initial Assessment Filed: 02/18/2023 3:18 PM Note Text: CARE MANAGEMENT PROGRESS NOTE SERVICE DATE: 02/18/2023 SERVICE TIME: 3:11 PM LOS: 1 day Needs Prior to Discharge: Ready for Discharge Assessment completed at [facility] [place] Yesterday. CARE MANAGEMENT: ASSESSMENT AND DISCHARGE PLAN SERVICE DATE: February 17, 2023 SERVICE TIME: 12:08 PM PCP: Radha Little CNP, GUALBERTO Primary Contact: Extended Emergency Contact Information Primary Emergency Contact: Chetan Elias Address: [address] [place] [address] [facility] Mobile Relation: Spouse Secondary Emergency Contact: Keyanna Tarango Address: [address] [place] [address] [facility] Mobile Relation: Daughter Admission Status: Inpatient Insurance Provider: MEDICARE A AND B Discharge Planning requested by: Per Department Practice Potential Transition Plans No Services Indicated;Home Advance Directives Current Advance Directive: None Er Rn Attempted to Assist with AD Completion: Yes [...] home, General wellness, Increase strength, Better mobility [place] of Choice Explained: [place] of Choice Given: No Reason Not Given: [...] 17, 2023 TIME: 12:08 PM CONTACT #: [phone] No skilled needs anticipated at discharge. Possible lifevest referral started. SIGNATURE: SERAFIN Wetzel PATIENT NAME: Arleht Elias DATE: February 18, 2023 TIME: 3:10 PM PAGER/CONTACT #: [phone] [facility] 02-17-2023 Note HNO ID: [id number] Author: Vannesa Mills RN Service: Nursing Author Type: Registered Nurse Type: Progress Notes Filed: 02/17/2023 4:58 PM Note Text: Pt being picked up by [facility] transport for [place] labor relations consultant. Pt at bedside with her belongings. [facility] 02-17-2023 Note HNO ID: [id number] Author: Malissa Vogel RN Service: Care Management Author Type: Registered Nurse Type: Care Mgt Initial Assessment Filed: 02/17/2023 12:12 PM Note Text: CARE MANAGEMENT: ASSESSMENT AND DISCHARGE PLAN SERVICE DATE: February 17, 2023 SERVICE TIME: 12:08 PM PCP: Radha Little CNP, INTERNET MANAGER Primary Contact: Extended Emergency Contact Information Primary Emergency Contact: Chetan Elias Address: [address] [place] [address] Mobile Relation: Spouse Secondary Emergency Contact: Keyanna Tarango Address: [address] [place] [address] Mobile Relation: Daughter Admission Status: Inpatient Insurance Provider: MEDICARE A AND B Discharge Planning requested by: Per Department Practice Potential Transition Plans No Services Indicated;Home Advance Directives Current Advance Directive: None Er Rn Attempted to Assist with AD Completion: Yes [...] home, General wellness, Increase strength, Better mobility [place] of Choice Explained: [place] of Choice Given: No Reason Not Given: [...] 17, 2023 TIME: 12:08 PM CONTACT #: [phone] [facility] 02-17-2023 Note HNO ID: [id number] Author: Vannesa Mills RN Service: Nursing Author Type: Registered Nurse Type: Progress Notes Filed: 02/17/2023 5:01 PM Note Text: Clarified with Keisha Hilliard if pt needed pre medicated before procedural contrast this afternoon due to pt allergy. [facility] 02-17-2023 Note HNO ID: [id number] Author: Aria Flores RN Service: Care Management Author Type: Registered Nurse Type: Care Mgt Progress Note Filed: 02/17/2023 11:13 AM Note Text: CARE MANAGEMENT PROGRESS NOTE SERVICE DATE: 02/17/2023 SERVICE TIME: 10:55 AM LOS: 1 day Informed by Vannesa ROQUE patient is scheduled for a L heart cath @ 1:30 and will be going to [facility] on a MARISSA. Confirmed with Dr. Keisha LONDON transport is appropriate. Requested 12:00 pm 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 with MMT they gave 1:00 pm 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 time. Spoke with Dwight Ross CNP with cardiology, we spoke with Mary @ [facility] [phone], states it is ok to send the patient @ 1:00 pm. If not picked up at 1:00 pm, requests to be called, informed, MYA Granado. SIGNATURE: Aria Flores RN PATIENT NAME: Arleth Elias DATE: February 17, 2023 TIME: 10:54 AM PAGER/CONTACT #: [phone] [facility] 02-16-2023 Note HNO ID: [id number] Author: Nelson Darling APRN.CNP Service: [facility]Hospital Author Type: Nurse Practitioner Type: [...] at level of renal arteries,non-obstructive CAD s/p C on 06/07/2019 (Dr. Patel) and 06/08/2019 (Dr. Torres, under op report, 50-60% stenosis to mid LAD, RCA and Lcx normal, follows with Dr. Patelchronic systolic heart failure EF 48% now reportedly 15% from OSH yesterday, who presents to the ED with chest pressure for one week that resolved yesterday and SOB that started last Wednesday theophylline OSH called and stated she needed to see her feed miller for reduced EF of 15%. She came to the ED and was found to be in acute heart failure. The Ed revealed, CXR with pulmonary edema,on 2L O2, BNP 2089, EKG changes, HST (16,16,17). She was given Lasix 20 mg IVP. Awaiting transfer to [place] for [facility]. PAST MEDICAL HISTORY Diagnosis Date Cardiomyopathy (HCC) Claudication (HCC) DM (diabetes mellitus) (HCC) HTN (hypertension) Incontinence NSVT (nonsustained ventricular tachycardia) (HCC) Sciatica Systolic CHF (HCC) Intervention(s): Review admission plan of care;Diuretic therapy Plan/Intervention (other): Transferring to [place] for Left heart cath, Cardiology consulted, NPO [...] DATE: February 16 2023 TIME: 11:46 PM [facility] 02-16-2023 Note HNO ID: [id number] Author: Erasto Beltran RT(R) Service: Radiology Author [...] RT Pranav(R) February 16, 2023 1:03 PM [facility] 01-27-2023 Miscellaneous Notes Mikel increased patient's Ozempic to 2mg for the next calender year as patient states she has enough 1mg to get her through the year. Form in Incomplete Green folder above Endo Nurse desk. Sent patient Reelation message advising to contact us when she receives her proof of income for 2022 so she can complete her portion of the form. documented in this encounter [facility] 01-27-2023 History of Present illness Narrative Endocrinology [...] 50 mcg/actuation nasal spray,suspension Nasal Corticosteroids Insulin [place], Disposable, (BD ULTRA-FINE RUBIA PEN NEEDLE) 32 gauge x 5/32 ndle BD Ultra-Fine Rubia Pen Needle 32 gauge x 5/32 Medical Supplies and DME - Insulin [place]-Syringes and Admin Supplies magnesium oxide (MAG-OX) 400 [...] exam and has no history of retinopathy --[facility] [place] July 2022. Patient to continue to follow [...] which included preparing to see the patient, [id number] patient care, completing clinical documentation, obtaining and/or reviewing separately obtained history, performing a medically appropriate examination, counseling and educating the patient/family/caregiver, ordering medications, tests, or procedures, independently interpreting results (not separately reported), and communicating results to the patient/family/caregiver. Mikel Barahona APRN.CNP (Signed electronically to expedite mailing) documented in this encounter [facility] 12-17-2022 History of Present illness Narrative Images from the original note were not included. Heart and Vascular [place] SECTION OF REGIONAL CARDIOLOGY December 17, 2022 Outpatient VISIT TYPE Established PRIMARY CARE PHYSICIAN: Grayson Vega, [address] [place] [id number] HISTORY OF PRESENT ILLNESS: Ms. Elias is a 77 year old female with a past medical history of Chronic systolic heart failure recovered LVEF 35%->61%, nonischemic cardiomyopathy, CAD status post [facility] on 06/07/2019 with 50-70% stenosis of the [...] and wrists and plans to see a retail department reset for this. She is on Ozempic and [...] Diagnosis ICD-10-CM 1. Hypomagnesemia E83.42 2. Claudication ([facility]) I73.9 3. H/O aorto-femoral bypass Z95.828 4. Nonsustained ventricular tachycardia ([facility]) I47.29 5. Systolic heart failure, unspecified HF chronicity ([facility]) I50.20 6. 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 I25.10 7. Essential hypertension I10 8. Mixed hyperlipidemia E78.2 9. Hyperlipidemia associated with type 2 diabetes mellitus ([facility]) E11.69 E78.5 10. Moderate obstructive sleep apnea [...] report, MCOT report, and labs ECG - Sinus rhythm with occasional PVC 81 bpm, [...] rare (<1.0%). Isolated VEs were occasional (1.9%, 42260), VE Couplets were rare (<1.0%, 2064), and [...] mouth twice daily.^Disp: 60 tablet^Rfl: 2 Insulin [place], Disposable, (BD ULTRA-FINE RUBIA PEN NEEDLE) 32 [...] mg by mouth twice daily.) Signed: Chalo Patel DO December 17, 2022 documented in this encounter [facility] 12-02-2022 Miscellaneous Notes Spoke to Janae from [employer]. He states that the order for the increased dosage of Oxempic should be delivered in 10-14 business days. Patient updated via [employer] documented in this encounter [facility] 11-04-2022 Miscellaneous Notes [facility] home Care Respiratory received an order for PAP therapy. Unfortunately, the patient resides out of service area and we are unable to provide. Please send the referral to an alternate provider. Thank you, [facility] [phone] fax documented in this encounter [facility] 11-04-2022 History of Present illness Narrative Endocrinology Follow-up History of Present Illness Arleth Elias is a 76 year old female presents today for follow up of DM Type 2. PMH significant HTN, systolic CHF and cardiomyopathy. Last Endocrinology visit was with mo on 08/07/22 and Metformin was discontinued due [...] 50 mcg/actuation nasal spray,suspension Nasal Corticosteroids Insulin [place], Disposable, (BD ULTRA-FINE RUBIA PEN NEEDLE) 32 gauge x 5/32 ndle BD Ultra-Fine Rubia Pen Needle 32 gauge x 5/32 Medical Supplies and DME - Insulin [place]-Syringes and Admin Supplies magnesium oxide (MAG-OX) 400 [...] exam and has no history of retinopathy --[facility] [place] July 2022. Patient to continue to follow [...] which included preparing to see the patient, [id number] patient care, completing clinical documentation, obtaining and/or reviewing separately obtained history, performing a medically appropriate examination, counseling and educating the patient/family/caregiver, ordering medications, tests, or procedures, independently interpreting results (not separately reported), and communicating results to the patient/family/caregiver. Mikel Barahona APRN.GUALBERTO (Signed electronically to expedite mailing) documented in this encounter [facility] 10-23-2022 Miscellaneous Notes Spoke to patient, informed [...] assistance application. Please fax form back to [employer] once complete. documented in this encounter [facility] 10-07-2022 Miscellaneous Notes Spoke with patient. Message given noted by GUALBERTO Gutierrez. Voice understanding. An updated magnesium level has been ordered. The following approved medication requests have been transmitted electronically. Requested Prescriptions Signed Prescriptions Disp Refills magnesium oxide (MAG-OX) 400 mg (241.3 mg magnesium) tablet 180 tablet 3 Sig: TAKE 1 TABLET BY MOUTH TWICE DAILY. TAKE SEPERATELY FROM [facility] Authorizing Provider: CHALO PATEL Ordering User: JEFFREY STEINER APRN.CNP Last appt: 06/11/2022 Next appt: 12/17/2022 Pharmacy requesting below: Requested Prescriptions Pending Prescriptions Disp Refills magnesium oxide (MAG-OX) 400 mg (241.3 mg magnesium) tablet [Pharmacy Med Name: MAG-OXIDE 400MG TABLETS] 180 tablet 3 Sig: TAKE 1 TABLET BY MOUTH TWICE DAILY. TAKE SEPERATELY FROM [facility] documented in this encounter [facility] 08-19-2022 Miscellaneous Notes Initiated Patient Assistance form for Naif. Called patient and patient requested her portion of form be emailed to her as she [place] hour away. Form emailed, Provider portion placed on Asha's desk, awaiting completion. documented in this encounter [facility] 08-07-2022 Miscellaneous Notes Addended by: MIKEL BARAHONA on: 08/07/2022 02:37 PM Modules accepted: Orders documented in this encounter [facility] 08-07-2022 Instructions Mikel Barahona APRN.CNP - 08/07/2022 [...] in 3 months documented in this encounter [facility] 08-07-2022 History of Present illness Narrative Endocrinology [...] 50 mcg/actuation nasal spray,suspension Nasal Corticosteroids Insulin [place], Disposable, (BD ULTRA-FINE RUBIA PEN NEEDLE) 32 gauge x 5/32 ndle BD Ultra-Fine Rubia Pen Needle 32 gauge x 5/32 Medical Supplies and DME - Insulin [place]-Syringes and Admin Supplies magnesium oxide (MAG-OX) 400 [...] eye exam and was referred to an spinner concrete pipe at this visit. Patient to continue to [...] which included preparing to see the patient, [id number] patient care, completing clinical documentation, obtaining and/or reviewing separately obtained history, performing a medically appropriate examination, counseling and educating the patient/family/caregiver, ordering medications, tests, or procedures, independently interpreting results (not separately reported), and communicating results to the patient/family/caregiver. Mikel Barahona APRN.CNP (Signed electronically to expedite mailing) documented in this encounter [facility] 06-23-2022 Instructions Mikel Barahona APRN.CNP - 06/23/2022 [...] overall caloric intake. documented in this encounter [facility] 06-23-2022 History of Present illness Narrative Endocrinology Initial Diabetes Assessment Arleth Elias is here for a consultation regarding: DM Type 2 My final recommendations will be communicated back to the requesting physician by way of shared Medical record or letter to requesting physician via US mail. PCP is Radha Little CNP, INTERNET MANAGER Radha Little CNP ([facility]) [address] [place] [address] History of Present Illness Arleth Elias is [...] 50 mcg/actuation nasal spray,suspension Nasal Corticosteroids Insulin [place], Disposable, (BD ULTRA-FINE RUBIA PEN NEEDLE) 32 gauge x 5/32 ndle BD Ultra-Fine Rubia Pen Needle 32 gauge x 5/32 Medical Supplies and DME - Insulin [place]-Syringes and Admin Supplies magnesium oxide (MAG-OX) 400 [...] eye exam and was referred to an spinner concrete pipe at this visit. Patient has no history [...] which included preparing to see the patient, [id number] patient care, completing clinical documentation, obtaining and/or reviewing separately obtained history, performing a medically appropriate examination, counseling and educating the patient/family/caregiver, ordering medications, tests, or procedures, independently interpreting results (not separately reported), and communicating results to the patient/family/caregiver. Mikel Barahona APRN.GUALBERTO (Signed electronically to expedite mailing) documented in this encounter [facility] 06-11-2022 History of Present illness Narrative Images from the original note were not included. Heart and Vascular [place] SECTION OF REGIONAL CARDIOLOGY June 11, 2022 Outpatient VISIT TYPE Established PRIMARY CARE PHYSICIAN: Grayson Vega, DO [address] [place] [address] HISTORY OF PRESENT ILLNESS: Ms. Elias is a 76 year old female with a past medical history of Chronic systolic heart failure recovered LVEF 35%->61%, nonischemic cardiomyopathy, CAD status post [facility] on 06/07/2019 with 50-70% stenosis of the [...] (BD POSIFLUSH) 6. 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 I25.10 ECG COMPLETE [...] with the prior echocardiographic exam performed on 04/02/2020 ECHOL. The [...] rare (<1.0%). Isolated VEs were occasional (1.9%, [id number]), VE Couplets were rare (<1.0%, 2064), and [...] 20 mg by mouth twice daily.) Insulin [place], Disposable, (BD ULTRA-FINE RUBIA PEN NEEDLE) 32 [...] not taking: Reported on 06/11/2022) Signed: Chalo Patel DO June 11, 2022 documented in this encounter [facility] 06-11-2022 Nurse Note Patient brought home blood pressure monitor to compare with office monitor. Office monitor: BP 115/54 HR 76 Home monitor: BP 131/73 HR 74 documented in this encounter [facility] 12-12-2021 History of Present illness Narrative VASCULAR SURGERY ESTABLISHED PATIENT SERVICE DATE: 12/12/2021 SERVICE TIME: 11:15 AM PRIMARY CARE PHYSICIAN: Radha Little CNP, INTERNET MANAGER SUBJECTIVE HISTORY OF PRESENT ILLNESS: Patient returns [...] mouth twice daily.) 30 tablet 0 Insulin [place], Disposable, (BD ULTRA-FINE RUBIA PEN NEEDLE) 32 [...] mL injection (DEFINITY) INTRAVENOUS DIRECTED PRN Chalo Patel, sodium chloride 0.9 % (flush) 10 mL (BD POSIFLUSH) 10 mL INTRAVENOUS DIRECTED PRN Chalo Patel, ALLERGIES Allergen Reactions Penicillins Anaphylaxis, Hives Dye [...] TIME: 11:15 AM documented in this encounter [facility] 12-05-2021 History of Present illness Narrative Images from the original note were not included. [facility] [place] SECTION OF REGIONAL CARDIOLOGY December 05, 2021 Outpatient VISIT TYPE Established PRIMARY CARE PHYSICIAN: Grayson Vega, DO [address] [place] [address] HISTORY OF PRESENT ILLNESS: Ms. Elias is a 76 year old female with a past medical history of Chronic systolic heart failure recovered LVEF 35%->61%, nonischemic cardiomyopathy, CAD status post [facility] on 06/07/2019 with 50-70% stenosis of the mid LAD, HTN, HLD, PVD sp right axillobifemoral bypass graft on 01/02/20 for severe aortic stenosis at the level of the renal arteries, DM, diverticulitis, ankle pain. Last visit was on 09/04/2021, per that note: ... 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 She denies having any: palpitations, shortness of [...] sleep. IMPRESSION: Encounter Diagnosis ICD-10-CM 1. Claudication ([facility]) I73.9 2. H/O aorto-femoral bypass Z95.828 3. Nonsustained ventricular tachycardia (HCC) I47.2 carvedilol (COREG) 25 mg tablet 4. Systolic heart failure, unspecified HF chronicity ([facility]) I50.20 carvedilol (COREG) 25 mg tablet 5. 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 I25.10 BASIC METABOLIC [...] rare (<1.0%). Isolated VEs were occasional (1.9%, [id number]), VE Couplets were rare (<1.0%, 2064), and [...] 20 mg by mouth twice daily.) Insulin [place], Disposable, (BD ULTRA-FINE RUBIA PEN NEEDLE) 32 [...] by mouth twice daily.^Disp: ^Rfl: Signed: Chalo Patel DO December 05, 2021 documented in this encounter [facility] 10-21-2021 History of Present illness Narrative Sleep Study Check-In Documentation Date: October 21, 2021 Name: Arleth Elias Comments: HST was returned in working order with all sleep questionnaires. Niraj Verde Nomad# [id number] Mail out date: 10/14/21 [employer] Shipping #: [id number] [employer] Return #:[id number] October 14, 2021 An order has been received for Home Sleep Apnea Test (HSAT) from Dr. Dahiana Barth APRN.[facility] Staff/Press Manager Staff Orders. Visit prep complete - Please refer to the sleep study order (under procedures tab) for protocol details and special instructions. The sleep study is scheduled for 10/15/2021. Insurance: Payor: MEDICARE / Plan: MEDICARE A AND B / Product Type: Medicare / Payor/Plan Subscr Sex Relation Sub. Ins. ID Effective Group Num 1. MEDICARE - ME* ARLETH ELIAS* 1945 Female Self [id number] 09/11/11 [address] [address] 2. MMO - MMO MED* ARLETH ELIAS* 1945 Female Self [id number] 10/11/19 [id number] [address] Niraj Verde documented in this encounter [facility] 10-09-2021 Miscellaneous Notes Patient stopped by cardiology medical front desk specialist today. Patient has had blanca surgery [...] cancelled d/t the following plan per Dr. Patel: Increasing claudication noted, previously seen by vascular [...] and states she will wait for Dr. Patel to discuss results from PVR scheduled on 10/09/21. Patient then hung up on me... documented in this encounter [facility] 10-07-2021 History of Present illness Narrative RADIOLOGY [...] STATUS: Discontinued PROCEDURE TYPE: NM Stress: 12.2mCi [id number] was administered IV for Rest Imaging at 12:20 by Ramila Kuhn. 31.7 mCi [id number] was administered IV for Stress Imaging at 13:35 by Ramila Kuhn. ADMINISTRATION TIME: PATIENT DISCHARGED TO: Ambulatory patient, left [place] department area. A Diagnostic radioactive procedure has taken place, with no further precautions necessary other than routine body substance precautions. More information regarding radiation safety can be found using this link: [email or web address] SIGNATURE: Ramila Kuhn PATIENT NAME: Arleth Elias DATE: October 07, 2021 TIME: 12:17 PM PAGER/CONTACT #: documented in this encounter [facility] 2021 Miscellaneous Notes Patient returns call and [...] number to schedule. documented in this encounter [facility] 09-25-2021 Instructions Dahiana Barth APRN.INTERNET MANAGER - 09/25/2021 10:22 AM EDT ERASMO Evaluation: [...] the central scheduling system for the [facility] [place] at [phone]. [facility] now offers direct scheduling for patients to schedule appointments. Call the office at [phone], option #5 for questions. May use Message My Doc through My Chart for questions. May use My Chart Refills for refill requests. [facility] website: [email or web address] documented in this encounter [facility] 09-25-2021 History of Present illness Narrative Images from the original note were not included. [facility] New Patient Evaluation PATIENT NAME: Arleth Elias DATE OF SERVICE: September 24, 2021 CONSULTING PROVIDER: Chalo Patel [id number] [facility] [id number] REASON FOR CONSULT: Chalo Patel sends the patient for an opinion about [...] 1 tablet by mouth once daily. Insulin [place], Disposable, (BD ULTRA-FINE RUBIA PEN NEEDLE) 32 [...] HF chronicity (HCC) I42.9 Cardiomyopathy, unspecified type ([facility]) I25.10 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 E11.51, Z79.4 Type 2 diabetes mellitus with diabetic peripheral angiopathy without gangrene, with long-term current use of insulin ([facility]) E66.09, Z68.32 Class 1 obesity due to [...] to review results and discuss next steps. Dahiana Barth APRN.GUALBERTO I spent a total of 40 minutes on the date of the service which included preparing to see the patient, [id number] patient care, completing clinical documentation, obtaining and/or reviewing separately obtained history, counseling and educating the patient/family/caregiver, ordering medications, tests, or procedures and communicating results to the patient/family/caregiver. documented in this encounter [facility] 09-04-2021 History of Present illness Narrative Images from the original note were not included. [facility] [place] SECTION OF REGIONAL CARDIOLOGY September 04, 2021 Outpatient VISIT TYPE Established PRIMARY CARE PHYSICIAN: Grayson Vega, DO [address] [place] [address] HISTORY OF PRESENT ILLNESS: Ms. 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 She denies having any: palpitations, shortness of [...] (HCC) I50.20 6. 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 I25.10 ECG COMPLETE [...] rare (<1.0%). Isolated VEs were occasional (1.9%, 07848), VE Couplets were rare (<1.0%, 2064), and [...] 1 tablet by mouth once daily. Insulin [place], Disposable, (BD ULTRA-FINE RUBIA PEN NEEDLE) 32 [...] in reviewing the relevant documents. Signed: Chalo Patel DO September 04, 2021 documented in this encounter [facility] 09-04-2021 Nurse Note Patient brought home blood pressure monitor to compare with office monitor. Office monitor: BP 120/53 HR 74 Home monitor: BP 119/71 HR 76 documented in this encounter [facility] 07-21-2021 Miscellaneous Notes The following approved medication requests have been transmitted electronically. Signed Prescriptions Disp Refills magnesium oxide (MAG-OX) 400 mg (241.3 mg magnesium) tablet 180 tablet 3 Sig: TAKE 1 TABLET BY MOUTH TWICE DAILY, TAKE SEPERATELY FROM [employer]XYCYCLINE TRAVIS: No Authorizing Provider: DWIGHT ROSS APRN.INTERNET MANAGER Last OV: 02/2021 Future appt noted: 08/2021 Pending Prescriptions Disp Refills MAGNESIUM OXIDE 400 MG (241.3 MG MAGNESIUM) TABLET 180 tablet Sig: TAKE 1 TABLET BY MOUTH TWICE DAILY, TAKE SEPERATELY FROM [employer]CYCL[employer] TRAVIS: Yes Please review and advise. documented in this encounter [facility] Evaluation note Diagnosis Hypomagnesemia Disorders of magnesium metabolism [facility] Diagnosis Chest discomfort- Primary Other chest pain Claudication (HCC) Peripheral vascular disease, unspecified History of axillobifemoral bypass graft Nonsustained ventricular tachycardia (HCC) Paroxysmal ventricular tachycardia Systolic heart failure, unspecified HF chronicity (HCC) 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 Essential hypertension Unspecified essential hypertension Mixed hyperlipidemia Hyperlipidemia associated with type 2 diabetes mellitus (HCC) Obstructive sleep apnea syndrome Obstructive sleep apnea (adult) (pediatric) Class 1 obesity due to excess calories with serious comorbidity and body mass index (BMI) of 31.0 to 31.9 in adult [facility] Diagnosis Obstructive sleep apnea- Primary Obstructive sleep apnea (adult) (pediatric) Obstructive sleep apnea syndrome Obstructive sleep apnea (adult) (pediatric) Essential hypertension Unspecified essential hypertension Mixed hyperlipidemia Systolic heart failure, unspecified HF chronicity (HCC) Cardiomyopathy, unspecified type (HCC) 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 Type 2 diabetes mellitus with diabetic peripheral angiopathy without gangrene, with long-term current use of insulin (HCC) Class 1 obesity due to excess calories with serious comorbidity and body mass index (BMI) of 32.0 to 32.9 in adult [facility] Diagnosis Claudication (HCC)- Primary Peripheral vascular disease, unspecified H/O aorto-femoral bypass Personal history of surgery to heart and great vessels, presenting hazards to health Nonsustained ventricular tachycardia (HCC) Paroxysmal ventricular tachycardia Systolic heart failure, unspecified HF chronicity (HCC) 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 Essential hypertension Unspecified essential hypertension Mixed hyperlipidemia Hyperlipidemia associated with type 2 diabetes mellitus (HCC) Moderate obstructive sleep apnea Obstructive sleep apnea (adult) (pediatric) Class 1 obesity due to excess calories with serious comorbidity and body mass index (BMI) of 32.0 to 32.9 in adult [facility] Diagnosis Aortoiliac occlusive disease (HCC)- Primary Other arterial embolism and thrombosis of abdominal aorta [facility]* Diagnosis 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 mellitus (HCC)- Primary Other fatigue [facility] Diagnosis Dyspnea, unspecified type- Primary Claudication (HCC) Peripheral vascular disease, unspecified H/O aorto-femoral bypass Personal history of surgery to heart and great vessels, presenting hazards to health Nonsustained ventricular tachycardia (HCC) Paroxysmal ventricular tachycardia Systolic heart failure, unspecified HF chronicity (HCC) 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 Essential hypertension Unspecified essential hypertension Mixed hyperlipidemia Hyperlipidemia associated with type 2 diabetes mellitus (HCC) Moderate obstructive sleep apnea Obstructive sleep apnea (adult) (pediatric) Hypomagnesemia Disorders of magnesium metabolism Class 1 obesity due to excess calories with serious comorbidity and body mass index (BMI) of 32.0 to 32.9 in adult [facility] Diagnosis Overactive bladder- Primary Hypertonicity of bladder Hyperlipidemia associated with type 2 diabetes mellitus (HCC) Class 1 obesity due to excess calories with serious comorbidity and body mass index (BMI) of 32.0 to 32.9 in adult Type 2 diabetes mellitus with diabetic peripheral angiopathy without gangrene, with long-term current use of insulin ([facility]) [facility]* Diagnosis Type 2 diabetes mellitus with diabetic peripheral angiopathy without gangrene, with long-term current use of insulin (HCC)- Primary Class 1 obesity due to excess calories with serious comorbidity and body mass index (BMI) of 32.0 to 32.9 in adult Hyperlipidemia associated with type 2 diabetes mellitus (HCC) [facility]* Diagnosis Hypomagnesemia Disorders of magnesium metabolism [facility] Diagnosis Type 2 diabetes mellitus with diabetic peripheral angiopathy without gangrene, with long-term current use of insulin (HCC)- Primary Cardiomyopathy, unspecified type (HCC) Essential hypertension Unspecified essential hypertension Class 1 obesity due to excess calories with serious comorbidity and body mass index (BMI) of 32.0 to 32.9 in adult Obstructive sleep apnea Obstructive sleep apnea (adult) (pediatric) [facility]* Diagnosis Claudication (HCC)- Primary Peripheral vascular disease, unspecified H/O aorto-femoral bypass Personal history of surgery to heart and great vessels, presenting hazards to health Nonsustained ventricular tachycardia (HCC) Paroxysmal ventricular tachycardia Systolic heart failure, unspecified HF chronicity (HCC) 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 Essential hypertension Unspecified essential hypertension Mixed hyperlipidemia Hyperlipidemia associated with type 2 diabetes mellitus (HCC) Moderate obstructive sleep apnea Obstructive sleep apnea (adult) (pediatric) Hypomagnesemia Disorders of magnesium metabolism Class 1 obesity due to excess calories with serious comorbidity and body mass index (BMI) of 30.0 to 30.9 in adult [facility] Type 2 diabetes mellitus with other circulatory complication, with long-term current use of insulin (HCC)- Primary [facility] Diagnosis Type 2 diabetes mellitus with other circulatory complication, with long-term current use of insulin (HCC)- Primary [facility] Diagnosis Encounter for screening for cardiovascular disorders Screening for other and unspecified cardiovascular conditions Encounter for other preprocedural examination [facility] Chest discomfort Other chest pain [facility] Diagnosis Nonsustained ventricular tachycardia (HCC) Paroxysmal ventricular tachycardia Systolic heart failure, unspecified HF chronicity (HCC) [facility]* Diagnosis Systolic heart failure, unspecified HF chronicity (HCC)- Primary Unresponsive Other alteration of consciousness Hypotension, unspecified hypotension type Sinus bradycardia Other specified cardiac dysrhythmias [facility] Diagnosis Hypomagnesemia Disorders of magnesium metabolism [facility] Diagnosis 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 Mixed hyperlipidemia [facility] in [facility] Diagnosis 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- Primary Essential hypertension Unspecified essential hypertension [facility] Diagnosis HFrEF (heart failure with reduced ejection fraction) (HCC) Heart failure, unspecified Cardiomyopathy, unspecified type (HCC) Fatigue, unspecified type Shortness of breath [facility] Diagnosis Acute on chronic systolic congestive heart failure (HCC)- Primary Acute on chronic systolic heart failure 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 LBBB (left bundle branch block) Other left bundle branch block Aortoiliac occlusive disease (HCC) Other arterial embolism and thrombosis of abdominal aorta Nonsustained ventricular tachycardia (HCC) Paroxysmal ventricular tachycardia [facility] Diagnosis Type 2 diabetes mellitus with other circulatory complication, with long-term current use of insulin (HCC)- Primary Obstructive sleep apnea Obstructive sleep apnea (adult) (pediatric) Essential hypertension Unspecified essential hypertension Hyperlipidemia associated with type 2 diabetes mellitus (HCC) (HCC) [facility] Diagnosis Acute on chronic systolic congestive heart failure (HCC)- Primary Acute on chronic systolic heart failure [facility] Diagnosis Shortness of breath- Primary Fatigue, unspecified type HFrEF (heart failure with reduced ejection fraction) (HCC) Heart failure, unspecified Cardiomyopathy, unspecified type (HCC) 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 Essential hypertension Unspecified [...] failure type (HCC) [facility] Diagnosis HFrEF (heart failure with reduced ejection fraction) (HCC)- Primary Heart failure, unspecified Ischemic cardiomyopathy Other specified forms of chronic ischemic heart disease LBBB (left bundle branch block) Other left bundle branch block Congestive heart failure, unspecified HF chronicity, unspecified heart failure type (HCC) [facility] Diagnosis Acute on chronic systolic congestive heart failure (HCC)- Primary Acute on chronic systolic heart failure Congestive heart failure, unspecified HF chronicity, unspecified heart failure type (HCC) [facility] Acute kidney injury (HCC)- Primary Acute kidney failure, unspecified [facility]* Diagnosis Chronic systolic heart failure (HCC)- Primary Chronic systolic heart failure LBBB (left bundle branch block) Other left bundle branch block DAV (acute kidney injury) (HCC) Acute kidney failure, unspecified [facility]* Diagnosis Cardiac resynchronization therapy defibrillator (TAIL DOGGER-D) in place- Primary Chronic systolic heart failure (HCC) Chronic systolic heart failure LBBB (left bundle branch block) Other left bundle branch block [facility]* Diagnosis Chronic systolic congestive heart failure (HCC)- Primary Chronic systolic heart failure LBBB (left bundle branch block) Other left bundle branch block DAV (acute kidney injury) (HCC) Acute kidney failure, unspecified [facility]* Diagnosis Obstructive sleep apnea syndrome- Primary Obstructive sleep apnea (adult) (pediatric) Essential hypertension Unspecified essential hypertension Mixed hyperlipidemia Type 2 diabetes mellitus with diabetic peripheral angiopathy without gangrene, with long-term current use of insulin (HCC) 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 Cardiomyopathy, unspecified type (HCC) Systolic heart failure, unspecified HF chronicity ([facility]) Class 1 obesity due to excess calories [...] Other postprocedural status [facility] Diagnosis Chronic systolic heart failure (HCC) Chronic systolic heart failure [facility] Diagnosis Pacemaker reprogramming/check- Primary Fitting and adjustment of cardiac pacemaker 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 Mixed hyperlipidemia LBBB (left bundle branch block) Other left bundle branch block Chronic systolic congestive heart failure (HCC) Chronic systolic heart failure [facility] Diagnosis Stage 3b chronic kidney disease (HCC)- Primary Screening for genitourinary condition Screening for other and unspecified genitourinary condition Essential hypertension Unspecified essential hypertension Vitamin D deficiency Unspecified vitamin D deficiency Chronic systolic CHF (congestive heart failure) ([facility]) Chronic systolic heart failure [facility] in [facility]* Diagnosis HFrEF (heart failure with reduced ejection fraction) ([facility])- Primary Heart failure, unspecified Cardiomyopathy, unspecified type ([facility]) 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 Essential hypertension Unspecified essential hypertension Mixed hyperlipidemia Hyperlipidemia associated with type 2 diabetes mellitus (HCC) ([facility]) Nonrheumatic mitral valve regurgitation Cardiac resynchronization therapy defibrillator (TAIL DOGGER-D) in place H/O aorto-femoral bypass Personal history of surgery to heart and great vessels, presenting hazards to health Moderate obstructive sleep apnea Obstructive sleep apnea (adult) (pediatric) [facility] Diagnosis Pacemaker reprogramming/check Fitting and adjustment of cardiac pacemaker [facility] Diagnosis Hypomagnesemia Disorders of magnesium metabolism [facility] Diagnosis Hypomagnesemia Disorders of magnesium metabolism [facility] Diagnosis PAD (peripheral artery disease) ([facility])- Primary Peripheral vascular disease, unspecified [facility] Diagnosis Chronic systolic congestive heart failure (HCC)- Primary Chronic systolic heart failure Other cardiomyopathy ([facility]) 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 Pulmonary hypertension, unspecified ([facility]) Nonrheumatic mitral valve regurgitation [facility] Diagnosis PAD (peripheral artery disease) ([facility])- Primary Peripheral vascular disease, unspecified Presence of heart assist device ([facility]) Heart replaced by heart assist device Aortoiliac occlusive disease ([facility]) Other arterial embolism and thrombosis of abdominal aorta [facility] Diagnosis PAD (peripheral artery disease) ([facility]) Peripheral vascular disease, unspecified [facility] Diagnosis Chronic systolic heart failure (HCC)- Primary Chronic systolic heart failure [facility] Diagnosis S/P angioplasty with stent- Primary Other postprocedural status [facility] Diagnosis Generalized anxiety disorder with panic attacks (CMS/HCC)- Primary Generalized anxiety disorder with panic attacks (CMS/HCC)- Primary Heart failure with reduced ejection fraction (CMS/HCC) Class 1 obesity due to excess calories with serious comorbidity and body mass index (BMI) of 32.0 to 32.9 in adult Type 2 diabetes mellitus without complication, with long-term current use of insulin (CMS/HCC) Chronic left shoulder pain- Primary Pain in joint, shoulder region Type 2 diabetes mellitus with diabetic chronic kidney disease (CMS/HCC) Chronic kidney disease, stage 3b (HCC) (CMS/HCC) Unspecified systolic (congestive) heart failure (CMS/HCC) 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) Disorder of arteries and arterioles, unspecified (CMS/HCC) Peripheral vascular disease, unspecified (CMS/HCC) Peripheral vascular disease, unspecified Other ventricular tachycardia (CMS/HCC) Atherosclerosis of [place] arteries of extremities with intermittent claudication, bilateral legs (CMS/HCC) Cardiomyopathy, unspecified (CMS/HCC) 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 Atherosclerosis of aorta (CMS/HCC) Atherosclerosis of aorta Chronic systolic (congestive) heart failure (CMS/HCC) Primary hypertension (CMS/HCC) Unspecified essential hypertension 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 (CMS/HCC) Type 2 diabetes mellitus without complication, with long-term current use of insulin (CMS/HCC) Generalized anxiety disorder with panic attacks (CMS/HCC) Diverticulitis- Primary Diverticulitis of colon (without mention of hemorrhage) Chronic left shoulder pain Pain in joint, shoulder region Tendinitis of left rotator cuff- Primary Arthralgia, unspecified joint documented in this encounter [facility]* Diagnosis Generalized anxiety disorder with panic attacks (CMS/HCC)- Primary Generalized anxiety disorder with panic attacks (CMS/HCC)- Primary Heart failure with reduced ejection fraction (CMS/HCC) Class 1 obesity due to excess calories with serious comorbidity and body mass index (BMI) of 32.0 to 32.9 in adult Type 2 diabetes mellitus without complication, with long-term current use of insulin (CMS/HCC) Chronic left shoulder pain- Primary Pain in joint, shoulder region Type 2 diabetes mellitus with diabetic chronic kidney disease (CMS/HCC) Chronic kidney disease, stage 3b (HCC) (CMS/HCC) Unspecified systolic (congestive) heart failure (CMS/HCC) 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) Disorder of arteries and arterioles, unspecified (CMS/HCC) Peripheral vascular disease, unspecified (CMS/HCC) Peripheral vascular disease, unspecified Other ventricular tachycardia (CMS/HCC) Atherosclerosis of [place] arteries of extremities with intermittent claudication, bilateral legs (CMS/HCC) Cardiomyopathy, unspecified (CMS/HCC) 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 Atherosclerosis of aorta (CMS/HCC) Atherosclerosis of aorta Chronic systolic (congestive) heart failure (CMS/HCC) Primary hypertension (CMS/HCC) Unspecified essential hypertension 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 (CMS/HCC) Type 2 diabetes mellitus without complication, with long-term current use of insulin (CMS/HCC) Generalized anxiety disorder with panic attacks (CMS/HCC) Diverticulitis- Primary Diverticulitis of colon (without mention of hemorrhage) Chronic left shoulder pain Pain in joint, shoulder region Acute pain of left shoulder- Primary Adhesive capsulitis of left [facility] Diagnosis Type 2 diabetes mellitus with other circulatory complication, with long-term current use of insulin (HCC)- Primary Essential hypertension Unspecified essential hypertension Hyperlipidemia associated with type 2 diabetes mellitus (HCC) ([facility]) [facility]* Diagnosis Stage 3b chronic kidney disease (HCC)- Primary Essential hypertension Unspecified essential hypertension Chronic systolic CHF (congestive heart failure) (HCC) Chronic systolic heart failure Vitamin D deficiency Unspecified vitamin D deficiency [facility]* Diagnosis Generalized anxiety disorder with panic attacks (CMS/HCC)- Primary Generalized anxiety disorder with panic attacks (CMS/HCC)- Primary Heart failure with reduced ejection fraction (CMS/HCC) Class 1 obesity due to excess calories with serious comorbidity and body mass index (BMI) of 32.0 to 32.9 in adult Type 2 diabetes mellitus without complication, with long-term current use of insulin (CMS/HCC) Chronic left shoulder pain- Primary Pain in joint, shoulder region Type 2 diabetes mellitus with diabetic chronic kidney disease (CMS/HCC) Chronic kidney disease, stage 3b (HCC) (CMS/HCC) Unspecified systolic (congestive) heart failure (CMS/HCC) 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) Disorder of arteries and arterioles, unspecified (CMS/HCC) Peripheral vascular disease, unspecified (CMS/HCC) Peripheral vascular disease, unspecified Other ventricular tachycardia (CMS/HCC) Atherosclerosis of [place] arteries of extremities with intermittent claudication, bilateral legs (CMS/HCC) Cardiomyopathy, unspecified (CMS/HCC) 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 Atherosclerosis of aorta (CMS/HCC) Atherosclerosis of aorta Chronic systolic (congestive) heart failure (CMS/HCC) Primary hypertension (CMS/HCC) Unspecified essential hypertension 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 (CMS/HCC) Type 2 diabetes mellitus without complication, with long-term current use of insulin (CMS/HCC) Generalized anxiety disorder with panic attacks (CMS/HCC) Diverticulitis- Primary Diverticulitis of colon (without mention of hemorrhage) Chronic left shoulder pain Pain in joint, shoulder region Acute pain of left shoulder- Primary Adhesive capsulitis of left shoulder documented in this encounter [facility]* Diagnosis Generalized anxiety disorder with panic attacks (CMS/HCC)- Primary Generalized anxiety disorder with panic attacks (CMS/HCC)- Primary Heart failure with reduced ejection fraction (CMS/HCC) Class 1 obesity due to excess calories with serious comorbidity and body mass index (BMI) of 32.0 to 32.9 in adult Type 2 diabetes mellitus without complication, with long-term current use of insulin (CMS/HCC) Chronic left shoulder pain- Primary Pain in joint, shoulder region Type 2 diabetes mellitus with diabetic chronic kidney disease (CMS/HCC) Chronic kidney disease, stage 3b (HCC) (CMS/HCC) Unspecified systolic (congestive) heart failure (CMS/HCC) 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) Disorder of arteries and arterioles, unspecified (CMS/HCC) Peripheral vascular disease, unspecified (CMS/HCC) Peripheral vascular disease, unspecified Other ventricular tachycardia (CMS/HCC) Atherosclerosis of [place] arteries of extremities with intermittent claudication, bilateral legs (CMS/HCC) Cardiomyopathy, unspecified (CMS/HCC) 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 Atherosclerosis of aorta (CMS/HCC) Atherosclerosis of aorta Chronic systolic (congestive) heart failure (CMS/HCC) Primary hypertension (CMS/HCC) Unspecified essential hypertension 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 (CMS/HCC) Type 2 diabetes mellitus without complication, with long-term current use of insulin (CMS/HCC) Generalized anxiety disorder with panic attacks (CMS/HCC) Diverticulitis- Primary Diverticulitis of colon (without mention of hemorrhage) Chronic left shoulder pain Pain in joint, shoulder region Acute pain of left shoulder- Primary Adhesive capsulitis of left shoulder documented in this encounter [facility]* Diagnosis Generalized anxiety disorder with panic attacks (CMS/HCC)- Primary Generalized anxiety disorder with panic attacks (CMS/HCC)- Primary Heart failure with reduced ejection fraction (CMS/HCC) Class 1 obesity due to excess calories with serious comorbidity and body mass index (BMI) of 32.0 to 32.9 in adult Type 2 diabetes mellitus without complication, with long-term current use of insulin (CMS/HCC) Chronic left shoulder pain- Primary Pain in joint, shoulder region Type 2 diabetes mellitus with diabetic chronic kidney disease (CMS/HCC) Chronic kidney disease, stage 3b (HCC) (CMS/HCC) Unspecified systolic (congestive) heart failure (CMS/HCC) 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) Disorder of arteries and arterioles, unspecified (CMS/HCC) Peripheral vascular disease, unspecified (CMS/HCC) Peripheral vascular disease, unspecified Other ventricular tachycardia (CMS/HCC) Atherosclerosis of [place] arteries of extremities with intermittent claudication, bilateral legs (CMS/HCC) Cardiomyopathy, unspecified (CMS/HCC) 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 Atherosclerosis of aorta (CMS/HCC) Atherosclerosis of aorta Chronic systolic (congestive) heart failure (CMS/HCC) Primary hypertension (CMS/HCC) Unspecified essential hypertension 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 (CMS/HCC) Type 2 diabetes mellitus without complication, with long-term current use of insulin (CMS/HCC) Generalized anxiety disorder with panic attacks (CMS/HCC) Diverticulitis- Primary Diverticulitis of colon (without mention of hemorrhage) Chronic left shoulder pain Pain in joint, shoulder region Acute pain of left shoulder- Primary Adhesive capsulitis of left shoulder documented in this encounter [facility]* Diagnosis Elevated blood uric acid level documented in this encounter [facility]* Diagnosis Chronic systolic congestive heart failure (HCC) Chronic systolic heart failure [facility] Diagnosis HFrEF (heart failure with reduced ejection fraction) (HCC)- Primary Heart failure, unspecified Other cardiomyopathy (HCC) 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 Primary hypertension Unspecified essential hypertension Essential hypertension Unspecified essential hypertension Mixed hyperlipidemia Hyperlipidemia associated with type 2 diabetes mellitus (HCC) (HCC) Nonrheumatic mitral valve regurgitation Presence of cardiac resynchronization therapy defibrillator ([employer]D) H/O aorto-femoral bypass Personal history of surgery to heart and great vessels, presenting hazards to health ERASMO (obstructive sleep apnea) Obstructive sleep apnea (adult) (pediatric) documented [facility]* Diagnosis Stage 3b chronic kidney disease (HCC)- Primary documented in this encounter [facility] note* Diagnosis Chronic systolic heart failure (HCC)- Primary Chronic systolic heart failure Pulmonary hypertension, unspecified (HCC) 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 LBBB (left bundle branch block) Other left bundle branch block DAV (acute kidney injury) ([facility]) Acute kidney failure, unspecified Chronic systolic congestive heart failure (HCC) Chronic systolic heart failure documented in this encounter [facility] note* Diagnosis Generalized anxiety disorder with panic attacks (CMS/HCC)- Primary Generalized anxiety disorder with panic attacks (CMS/HCC)- Primary Heart failure with reduced ejection fraction ([facility]/HCC) Class 1 obesity due to excess calories with serious comorbidity and body mass index (BMI) of 32.0 to 32.9 in adult Type 2 diabetes mellitus without complication, with long-term current use of insulin ([facility]) Chronic left shoulder pain- Primary Pain in joint, shoulder region Type 2 diabetes mellitus with diabetic chronic kidney disease (CMS/HCC) Chronic kidney disease, stage 3b (HCC) (CMS/HCC) Unspecified systolic (congestive) heart failure ([facility]/HCC) Type 2 diabetes mellitus with diabetic polyneuropathy ([facility]/HCC) Disorder of arteries and arterioles, unspecified (CMS/HCC) Peripheral vascular disease, unspecified (CMS/HCC) Peripheral vascular disease, unspecified Other ventricular tachycardia ([facility]/HCC) Atherosclerosis of [place] arteries of extremities with intermittent claudication, bilateral legs (CMS/HCC) Cardiomyopathy, unspecified (CMS/HCC) 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 Atherosclerosis of aorta (CMS/HCC) Atherosclerosis of aorta Chronic systolic (congestive) heart failure (CMS/HCC) Primary hypertension (CMS/HCC) Unspecified essential hypertension 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 (CMS/HCC) Type 2 diabetes mellitus without complication, with long-term current use of insulin (CMS/HCC) Generalized anxiety disorder with panic attacks (CMS/HCC) Diverticulitis- Primary Diverticulitis of colon (without mention of hemorrhage) Chronic left shoulder pain Pain in joint, shoulder region Elevated blood uric acid level documented in this encounter [facility]* Diagnosis Generalized anxiety disorder with panic attacks (CMS/HCC)- Primary Generalized anxiety disorder with panic attacks (CMS/HCC)- Primary Heart failure with reduced ejection fraction (CMS/HCC) Class 1 obesity due to excess calories with serious comorbidity and body mass index (BMI) of 32.0 to 32.9 in adult Type 2 diabetes mellitus without complication, with long-term current use of insulin Chronic left shoulder pain- Primary Pain in joint, shoulder region Type 2 diabetes mellitus with diabetic chronic kidney disease (CMS/HCC) Chronic kidney disease, stage 3b (HCC) (CMS/HCC) Unspecified systolic (congestive) heart failure (CMS/HCC) 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) Disorder of arteries and arterioles, unspecified Peripheral vascular disease, unspecified (CMS/HCC) Peripheral vascular disease, unspecified Other ventricular tachycardia Atherosclerosis of [place] arteries of extremities with intermittent claudication, bilateral legs (CMS/HCC) Cardiomyopathy, unspecified 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 Atherosclerosis of aorta (CMS/HCC) Atherosclerosis of aorta Chronic systolic (congestive) heart failure Primary hypertension (CMS/HCC) Unspecified essential hypertension 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 (CMS/HCC) Type 2 diabetes mellitus without complication, with long-term current use of insulin Generalized anxiety disorder with panic attacks (CMS/HCC) Diverticulitis- Primary Diverticulitis of colon (without mention of hemorrhage) Chronic left shoulder pain Pain in joint, shoulder region URI, acute- Primary Acute upper respiratory infections of unspecified site Seasonal allergic rhinitis, unspecified trigger Primary hypertension (CMS/HCC) Unspecified essential hypertension Heart failure with reduced ejection fraction (CMS/HCC) documented in this encounter [facility]* Diagnosis Generalized anxiety disorder with panic attacks (CMS/HCC)- Primary Generalized anxiety disorder with panic attacks (CMS/HCC)- Primary Heart failure with reduced ejection fraction (CMS/HCC) Class 1 obesity due to excess calories with serious comorbidity and body mass index (BMI) of 32.0 to 32.9 in adult Type 2 diabetes mellitus without complication, with long-term current use of insulin Chronic left shoulder pain- Primary Pain in joint, shoulder region Type 2 diabetes mellitus with diabetic chronic kidney disease (CMS/HCC) Chronic kidney disease, stage 3b (HCC) (CMS/HCC) Unspecified systolic (congestive) heart failure (CMS/HCC) 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) Disorder of arteries and arterioles, unspecified Peripheral vascular disease, unspecified (CMS/HCC) Peripheral vascular disease, unspecified Other ventricular tachycardia Atherosclerosis of [place] arteries of extremities with intermittent claudication, bilateral legs (CMS/HCC) Cardiomyopathy, unspecified 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 Atherosclerosis of aorta (CMS/HCC) Atherosclerosis of aorta Chronic systolic (congestive) heart failure Primary hypertension (CMS/HCC) Unspecified essential hypertension 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 (CMS/HCC) Type 2 diabetes mellitus without complication, with long-term current use of insulin Generalized anxiety disorder with panic attacks (CMS/HCC) Diverticulitis- Primary Diverticulitis of colon (without mention of hemorrhage) Chronic left shoulder pain Pain in joint, shoulder region URI, acute- Primary Acute upper respiratory infections of unspecified site Seasonal allergic rhinitis, unspecified trigger Primary hypertension (CMS/HCC) Unspecified essential hypertension Heart failure with reduced ejection fraction (CMS/HCC) Other cirrhosis of liver- Primary Acute left-sided thoracic back pain documented in this encounter [facility] for referral (narrative)* Diagnostic Procedure Only (Routine) - Pending Review Specialty Diagnoses / Procedures Referred By Darnell garcia [facility] Diagnoses Obstructive sleep apnea syndrome Essential hypertension Cardiomyopathy, unspecified type (HCC) Class 1 obesity due to excess calories with serious comorbidity and body mass index (BMI) of 32.0 to 32.9 in adult Procedures HOME SLEEP APNEA TEST (HSAT) SLEEP STD AIRFLOW HRT RATE&O2 SAT EFFORT Dahaina Cole, SHITAL.INTERNET MANAGER [address] [place] [address] [address] Referral ID Status Reason Start Date Expiration Date Visits Requested Visits Authorized [id number] Pending Review Auto-Generat ed Referral 09/25/2021 09/25/2022 1 1 [facility] for referral (narrative)* Outpatient Procedure (Routine) - Authorized Specialty Diagnoses / Procedures Referred By Contac t Referred To Contact [facility] Diagnoses Systolic heart failure, unspecified HF chronicity (HCC) Dyspnea, unspecified type Procedures ECHO LIMITED ECHO TRANSTHORAC R-T 2D W/WO M-MODE REC COMP Chalo Patel DO [address] [place] [address] [address] Referral ID Status Reason Start Date Expiration Date Visits Requested Visits Authorized [id number] Authorized Auto-Generat ed Referral 06/11/2022 06/11/2023 1 1 * Consult, Test, Treat (Routine) - Authorized Specialty Diagnoses / Procedures Referred By Contac t Referred To Contact Diagnoses Hyperlipidemia associated with type 2 diabetes mellitus (HCC) Class 1 obesity due to excess calories with serious comorbidity and body mass index (BMI) of 32.0 to 32.9 in adult Procedures ENDOCRINE MEDICAL WEIGHT MANAGEMENT OFFICE/OUTPATIENT [facility] MDM 60-74 MINUTES Chalo Patel DO [address] [place] [address] Referral ID Status Reason Start Date Expiration Date Visits Requested Visits Authorized [id number] Authorized PCP Requested Referral 06/11/2022 06/11/2023 1 1 * Outpatient Procedure (Routine) - Authorized Specialty Diagnoses / Procedures Referred By Contac t Referred To Contact [facility] Diagnoses 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 Moderate obstructive sleep apnea Procedures ECG COMPLETE ECG ROUTINE ECG W/LEAST 12 LDS W/I&R Chalo Patel DO [address] [place] [address] [address] Referral ID Status Reason Start Date Expiration Date Visits Requested Visits Authorized [id number] Authorized Auto-Generat ed Referral 06/11/2022 06/11/2023 1 1 [facility] for referral (narrative)* Outpatient Procedure (Routine) - Authorized Specialty Diagnoses / Procedures Referred By Contac t Referred To Contact [facility] Diagnoses 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 Procedures ECG COMPLETE ECG ROUTINE ECG W/LEAST 12 LDS W/I&R Chalo Patel DO [address] [place] [address] [facility] [address] [address] Referral ID Status Reason Start Date Expiration Date Visits Requested Visits Authorized [id number] Authorized Auto-Generat ed Referral 12/17/2022 12/17/2023 1 1 [facility] for referral (narrative)* Diagnostic Procedure Only (Routine) - Closed Specialty Diagnoses / Procedures Referred By Contac t Referred To Contact MOLECULAR & FUNCTIONAL IMAGING Diagnoses Chest discomfort Procedures NM CARDIAC PERF STRESS/PHARM MYOCARDIAL SPECT MULTIPLE STUDIES Chalo Patel DO [address] [place] [address] [facility] Imaging [address] [place] [address] Referral ID Status Reason Start Date Expiration Date V isits Requested Visits Authorized [id number] Closed Auto-Generate d Referral 09/04/2021 10/04/2022 1 1 T [facility] for referral (narrative)* Outpatient Procedure (Routine) - Pending Review Specialty Diagnoses / Procedures Referred By Contac t Referred To Contact [facility] Diagnoses HFrEF (heart failure with reduced ejection fraction) (HCC) Ischemic cardiomyopathy Procedures ECG COMPLETE ECG ROUTINE ECG W/LEAST 12 LDS W/I&[place] [address] [place] [address] [place] [address] [place] [id number] Referral ID Status Reason Start Date Expiration Date Visits Requested Visits Authorized [id number] Pending Review Auto-Generat ed Referral 06/17/2023 06/14/2024 1 1 [facility] for referral (narrative)* Outpatient Procedure (Routine) - Pending Review Specialty Diagnoses / Procedures Referred By Contac t Referred To Contact [facility] Diagnoses Chronic systolic heart failure (HCC) Procedures ECHO ECHO TTHRC R-T 2D W/WOM-MODE COMPL SPEC&COLR D Stanley [place] [id number] [place] [address] [place] [id number] Referral ID Status Reason Start Date Expiration Date Visits Requested Visits Authorized [id number] Pending Review Auto-Generat ed Referral 10/05/2023 07/04/2024 1 1 [facility] for referral (narrative)* Diagnostic Procedure Only (Routine) - Pending Review Specialty Diagnoses / Procedures Referred By Contac t Referred To Contact [facility] Diagnoses Obstructive sleep apnea syndrome Essential hypertension Procedures HOME SLEEP APNEA TEST (HSAT) SLEEP STD AIRFLOW HRT RATE&O2 SAT EFFORT Dahiana Cole, ASPHALT SURFACE HEATER OPERATOR.INTERNET MANAGER [address] [place] [address] [address] Referral ID Status Reason Start Date Expiration Date Visits Requested Visits Authorized [id number] Pending Review Auto-Generat ed Referral 08/03/2023 08/02/2024 1 1 [facility] for referral (narrative)* Outpatient Procedure (Routine) - Pending Review Specialty Diagnoses / Procedures Referred By Contac t Referred To Contact [facility] Diagnoses Pacemaker reprogramming/check Procedures ECG COMPLETE ECG ROUTINE ECG W/LEAST 12 LDS W/I&[place] [address] [place] [address] [address] Referral ID Status Reason Start Date Expiration Date Visits Requested Visits Authorized [id number] Pending Review Auto-Generat ed Referral 10/07/2023 10/06/2024 1 1 [facility] for referral (narrative)* Outpatient Procedure (Routine) - Closed Specialty Diagnoses / Procedures Referred By Contac t Referred To Contact [facility] Diagnoses Pacemaker reprogramming/check Procedures CARDIAC IMPLANTABLE DEVICE CHECK Card Eps [facility] [place] [address] [place] [address] [place] [address] [address] Referral ID Status Reason Start Date Expiration Date V isits Requested Visits Authorized [id number] Closed Auto-Generate d Referral 08/30/2023 08/29/2024 1 1 [facility] for referral (narrative)* Outpatient Procedure (Routine) - Authorized Specialty Diagnoses / Procedures Referred By Contac t Referred To Contact [facility] Diagnoses PAD (peripheral artery disease) (HCC) Procedures PVR ANK PRESS PHIL VAS LAB NON-INVAS PHYSIOLOGIC STD EXTREMITY ART 2 LEVEL Janny Jay APRN.CNP [address] [place] [address] [facility] [place] [address] [place] [address] Referral ID Status Reason Start Date Expiration Date Visits Requested Visits Authorized [id number] Authorized Auto-Generat ed Referral 11/30/2023 11/29/2024 1 1 * Outpatient Procedure (Routine) - Authorized Specialty Diagnoses / Procedures Referred By Contac t Referred To Contact [facility] Diagnoses PAD (peripheral artery disease) (HCC) Procedures US LEG ARTERIAL PERIPH UNL VAS LAB DUP-SCAN LXTR ART/ARTL BPGS UNI/LMTD STUDY [place] [address] [place] [phone] Referral ID Status Reason Start Date Expiration Date Visits Requested Visits Authorized [id number] Authorized Auto-Generat ed Referral 11/30/2023 11/29/2024 1 1 [facility] for referral (narrative)* Outpatient Procedure (Routine) - Authorized Specialty Diagnoses / Procedures Referred By Contac t Referred To Contact [facility] Diagnoses Chronic systolic congestive heart failure (HCC) Procedures ECHO ECHO TTHRC R-T 2D W/WOM-MODE COMPL SPEC&COLR D [place] [address] [place] [address] Referral ID Status Reason Start Date Expiration Date Visits Requested Visits Authorized [id number] Authorized Auto-Generat ed Referral 12/28/2023 12/27/2024 1 1 [facility] for referral (narrative)* Outpatient Procedure (Routine) - New Request Specialty Diagnoses / Procedures Referred By Contac t Referred To Contact [facility] Diagnoses PAD (peripheral artery disease) (HCC) Procedures PVR ANK PRESS PHIL VAS LAB NON-INVAS PHYSIOLOGIC STD EXTREMITY [place] [address] [place] [address] [facility] [address] [address] Referral ID Status Reason Start Date Expiration Date Visits Requested Visits Authorized [id number] New Request Auto-Generat ed Referral 01/03/2024 01/02/2025 1 1 * Outpatient Procedure (Routine) - New Request Specialty Diagnoses / Procedures Referred By Contac t Referred To Contact [facility] Diagnoses PAD (peripheral artery disease) (HCC) Procedures US LEG ARTERIAL PERIPH UNL VAS LAB DUP-SCAN LXTR ART/ARTL BPGS UNI/[place] [address] [place] [address] [address] Referral ID Status Reason Start Date Expiration Date Visits Requested Visits Authorized [id number] New Request Auto-Generat ed Referral 01/03/2024 01/02/2025 1 1 [facility] for referral (narrative)* Outpatient Procedure (Routine) - Closed Specialty Diagnoses / Procedures Referred By Contac t Referred To Contact [facility] Diagnoses PAD (peripheral artery disease) (HCC) Procedures US LEG ARTERIAL PERIPH UNL VAS LAB DUP-SCAN LXTR ART/ARTL BPGS UNI/LMTD Janny Story APRN.CNP [address] [place] [address] [address] Referral ID Status Reason Start Date Expiration Date V isits Requested Visits Authorized [id number] Closed Auto-Generate d Referral 11/30/2023 11/29/2024 1 1 [facility] for referral (narrative)* Outpatient Procedure (Routine) - Closed Specialty Diagnoses / Procedures Referred By Contac t Referred To Contact [facility] Diagnoses PAD (peripheral artery disease) (HCC) Procedures PVR ANK PRESS PHIL VAS LAB NON-INVAS PHYSIOLOGIC STD EXTREMITY ART 2 LEVEL Janny Jay, ASPHALT SURFACE HEATER OPERATOR.INTERNET [place] [address] [facility] [place] [address] [place] [address] Referral ID Status Reason Start Date Expiration Date V isits Requested Visits Authorized [id number] Closed Auto-Generate d Referral 11/30/2023 11/29/2024 1 1 [facility] for visit Narrative* Diagnostic Procedure Only (Routine) - Closed Specialty Diagnoses / Procedures Referred By Contac t Referred To Contact [facility]LECULAR [facility] FUN[facility]AL IMAGING Diagnoses Chest discomfort Procedures NM CARDIAC PERF STRESS/PHARM MYOCARDIAL SPECT MULTIPLE STUDIES Chalo Patel, [address] [place] [address] Molecular [facility] Functional Imaging [address] [place] [id number] Referral ID Status Reason Start Date Expiration Date V isits Requested Visits Authorized [id number] Closed Auto-Generate d Referral 09/04/2021 10/04/2022 1 1 [facility] for visit Narrative* Outpatient Procedure (Routine) - Closed Specialty Diagnoses / Procedures Referred By Contac t Referred To Contact [facility] Diagnoses HFrEF (heart failure with reduced ejection fraction) (HCC) Cardiomyopathy, unspecified type (HCC) Fatigue, unspecified type Shortness of breath Procedures ECHO ECHO TTHRC R-T 2D W/WOM-MODE COMPL SPEC&COLR D Renetta Glaser, ASPHALT SURFACE HEATER OPERATOR.INTERNET MANAGER [address] [place] [address] [facility] [place] [address] [place] [address] Referral ID Status Reason Start Date Expiration Date V isits Requested Visits Authorized [id number] Closed Auto-Generate d Referral 05/21/2023 04/06/2024 1 1 [facility] for visit Narrative* Outpatient Procedure (Routine) - Closed Specialty Diagnoses / Procedures Referred By Contac t Referred To Contact [facility] Diagnoses Chronic systolic heart failure (HCC) Procedures ECHO ECHO TTHRC R-T 2D W/WOM-MODE COMPL SPEC&[place] [address] [place] [address] [facility] [address] [address] Referral ID Status Reason Start Date Expiration Date V isits Requested Visits Authorized [id number] Closed Auto-Generate d Referral 10/05/2023 07/04/2024 1 1 [facility] for visit Narrative* Outpatient Procedure (Routine) - Closed Specialty Diagnoses / Procedures Referred By Contac t Referred To Contact [facility] Diagnoses Pacemaker reprogramming/check Procedures CARDIAC IMPLANTABLE DEVICE CHECK Card Eps [facility] [place] [address] [place] [address] [facility] [address] [address] Referral ID Status Reason Start Date Expiration Date V isits Requested Visits Authorized [id number] Closed Auto-Generate d Referral 08/30/2023 08/29/2024 1 1 [facility] for visit Narrative* Outpatient Procedure (Routine) - Closed Specialty Diagnoses / Procedures Referred By Contac t Referred To Contact [facility] Diagnoses PAD (peripheral artery disease) (HCC) Procedures US LEG ARTERIAL PERIPH UNL VAS LAB DUP-SCAN LXTR ART/ARTL BPGS UNI/LMTD STUDY Janny Jay, ASPHALT SURFACE HEATER OPERATOR.INTERNET MANAGER [address] [place] [address] [facility] [address] [address] Referral ID Status Reason Start Date Expiration Date V isits Requested Visits Authorized [id number] Closed Auto-Generate d Referral 11/30/2023 11/29/2024 1 1 [facility] for visit Narrative* Outpatient Procedure (Routine) - Closed Specialty Diagnoses / Procedures Referred By Contac t Referred To Contact [facility] Diagnoses PAD (peripheral artery disease) (HCC) Procedures PVR ANK PRESS PHIL VAS LAB NON-INVAS PHYSIOLOGIC STD EXTREMITY ART 2 LEVEL Janny Jay, ASPHALT SURFACE HEATER OPERATOR.INTERNET MANAGER [address] [place] [address] [facility] [address] [place] [address] Referral ID Status Reason Start Date Expiration Date V isits Requested Visits Authorized [id number] Closed Auto-Generate d Referral 11/30/2023 11/29/2024 1 1 [facility] for visit Narrative* Consultation (Routine) - Authorized Specialty Diagnoses / Procedures Referred By Darnell garcia Referred To Contact Physical Therapy Diagnoses Acute pain of left shoulder Adhesive capsulitis of left shoulder Procedures UT OFFICE/OUTPATIENT NEW HIGH MDM 60 MINUTES Rocio Moss PA [address] [facility] [address] [place] [address] Phone: tel: fax: Timmy Casarez, PT [address] [facility] [address] [place] [address] Phone: tel: fax: Referral ID Status Reason Start Date Expiration Date Visits Requested Visits Authorized [id number] Authorized Consult and Treat 02/16/2024 08/14/2024 20 30 [facility] for visit Narrative* Consultation (Routine) - Authorized Specialty Diagnoses / Procedures Referred By Darnell garcia Referred To Contact Physical Therapy Diagnoses Acute pain of left shoulder Adhesive capsulitis of left shoulder Procedures UT OFFICE/OUTPATIENT NEW HIGH MDM 60 MINUTES Rocio Moss PA [address] [facility] [address] [place] [address] Phone: tel: fax: Timmy Casarez, PT [address] [facility] [address] [place] [address] Phone: tel: fax: Referral ID Status Reason Start Date Expiration Date Visits Requested Visits Authorized [id number] Authorized Consult and Treat 02/16/2024 04/11/2024 20 30 [facility] for visit Narrative* Outpatient Procedure (Routine) - Closed Specialty Diagnoses / Procedures Referred By Darnell garcia Referred To Contact [facility] Diagnoses Chronic systolic congestive heart failure (HCC) Procedures ECHO ECHO TTHRC R-T 2D W/WOM-MODE COMPL SPEC&[place] [address] [place] [address] [facility] [place] [address] [place] [address] Referral ID Status Reason Start Date Expiration Date V isits Requested Visits Authorized [id number] Closed Auto-Generate d Referral 12/28/2023 12/27/2024 1 1 [facility] Summary Purpose Family History No Family History Records FoundNo Family History Records FoundNo Family History Records FoundNo Family History Records FoundNo Family History Records FoundNo Family History Records FoundNo Family History Records FoundNo Family History Records FoundNo Family History Records FoundNo Family History Records Found Advance Directives Documents on File Type Date Recorded 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 Advance Directive(s) 01/02/2020 5:54 AM Advance Directive(s) 12/20/2019 11:35 AM Advance Directive(s) 06/08/2019 8:21 AM Advance Directive(s) 06/07/2019 7:41 AM Documents on File Type Date Recorded 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 Advance Directive(s) 01/02/2020 5:54 AM [...] (HCC) Procedures CONSULT TO VASCULAR MEDICINE OFFICE/OUTPATIENT NEW HIGH MDM 60-74 MINUTES Chalo Patel DO [address] [place] [address] Referral ID Status Reason Start Date Expiration Date Visits Requested Visits Authorized [id number] Authorized PCP Requested Referral 09/04/2021 09/04/2022 1 1 Specialty Diagnoses / Procedures Referred By Contac t Referred To Contact [facility] Diagnoses Hyperlipidemia associated with type 2 diabetes mellitus (HCC) Other specified peripheral vascular diseases (HCC) Procedures PVR LEG W/EXC PHIL VAS LAB N-INVAS PHYSIOLOGIC STD LXTR ART COMPL BI Chalo Patel DO [address] [place] [address] [address] Referral ID Status Reason Start Date Expiration Date Visits Requested Visits Authorized [id number] Authorized Auto-Generat ed Referral 09/04/2021 09/04/2022 1 1 Specialty Diagnoses / Procedures Referred By Contac t Referred To Contact Diagnoses Obstructive sleep apnea syndrome Procedures CONSULT TO SLEEP MEDICINE - ADULT OFFICE/OUTPATIENT NEW HIGH MDM 60-74 MINUTES Chalo Patel DO [address] [place] [address] Referral ID Status Reason Start Date Expiration Date Visits Requested Visits Authorized [id number] Authorized PCP Requested Referral 09/04/2021 09/04/2022 1 1 Specialty Diagnoses / Procedures Referred By Contac t Referred To Contact [facility] Diagnoses Chest discomfort Procedures ECHO ECHO TTHRC R-T 2D W/WOM-MODE COMPL SPEC&COLR D Chalo Patel, DO [address] [place] [address] [address] Referral ID Status Reason Start Date Expiration Date Visits Requested Visits Authorized [id number] Authorized Auto-Generat ed Referral 09/04/2021 09/04/2022 1 1 Specialty Diagnoses / Procedures Referred By Contac t Referred To Contact [facility]LECULAR & FUNCTIONAL IMAGING Diagnoses Chest discomfort Procedures NM CARDIAC PERF STRESS/PHARM MYOCARDIAL SPECT MULTIPLE STUDIES Chalo Patel DO [address] [place] [address] Molecular [facility] Functional Imaging [address] [place] [address] Referral ID Status Reason Start Date Expiration Date Visits Requested Visits Authorized [id number] Authorized Auto-Generat ed Referral 09/04/2021 10/04/2022 1 1 Specialty Diagnoses / Procedures Referred By Contac t Referred To Contact [facility] Diagnoses 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 Procedures ECG COMPLETE ECG ROUTINE ECG W/LEAST 12 LDS W/I&R Chalo Patel, DO [address] [place] [address] [facility] [place] [address] [place] [address] Referral ID Status Reason Start Date Expiration Date Visits Requested Visits Authorized [id number] Authorized Auto-Generat ed Referral 09/04/2021 09/04/2022 1 1 Specialty Diagnoses / Procedures Referred By Contac t Referred To Contact Ophthalmology Diagnoses Type 2 diabetes mellitus with diabetic peripheral angiopathy without gangrene, with long-term current use of insulin (HCC) Procedures CONSULT TO OPHTHALMOLOGY OFFICE/OUTPATIENT [facility] 60-74 MINUTES Mikel Barahona, ASPHALT SURFACE HEATER OPERATOR.INTERNET MANAGER [address] [place] [address] Referral ID Status Reason Start Date Expiration Date Visits Requested Visits Authorized [id number] Authorized PCP Requested Referral 06/24/2022 06/24/2023 1 1 Specialty Diagnoses / Procedures Referred By Contac t Referred To Contact Urology Diagnoses Overactive bladder Procedures CONSULT TO UROLOGY OFFICE/OUTPATIENT NEW [facility] 60-74 MINUTES Mikel Barahona, ASPHALT SURFACE HEATER OPERATOR.INTERNET MANAGER [address] [place] [address] Referral ID Status Reason Start Date Expiration Date Visits Requested Visits Authorized [id number] Authorized PCP Requested Referral 06/23/2022 06/23/2023 1 1 Referral ID Status Reason Start Date Expiration Date Visits Requested Visits Authorized [id number] Authorized PCP Requested Referral 08/07/2022 08/07/2023 1 1 Specialty Diagnoses / Procedures Referred By Contac t Referred To Contact Diagnoses Acute on chronic systolic congestive heart failure (HCC) LBBB (left bundle branch block) Procedures CONSULT TO ELECTROPHYSIOLOGY OFFICE/OUTPATIENT [facility] [address] [place] [address] [place] [address] Referral ID Status Reason Start Date Expiration Date Visits Requested Visits Authorized [id number] Authorized PCP Requested Referral 05/31/2023 05/30/2024 1 1 Specialty Diagnoses / Procedures Referred By Contac t Referred To Contact Nephrology Diagnoses Acute kidney injury (HCC) Procedures CONSULT TO NEPHROLOGY OFFICE/OUTPATIENT [facility] 60 MINUTES Niraj Cheng PA-C [address] [place] [address] Referral ID Status Reason Start Date Expiration Date Visits Requested Visits Authorized [id number] Authorized PCP Requested Referral 07/01/2023 06/30/2024 1 1 Specialty Diagnoses / Procedures Referred By Contac t Referred To Contact Mikel Barahona APRN.[facility] [address] [place] [address] Referral ID Status Reason Start Date Expiration Date Visits Re quested Visits Authorized [id number] Closed 1 1 Additional Source Comments INFORMATION SOURCE (unrecogn ized section and content) DATE CREATED AUTHOR 10/06/2017 [facility] DATE CREATED AUTHOR AUTHOR'S ORGANIZ ATION 07/20/2021 [facility] DATE CREATED AUTHOR AUTHOR'S ORGANIZ ATION 02/17/2023 [facility] DATE CREATED AUTHOR AUTHOR'S ORGANIZ ATION 02/26/2023 [facility] DATE CREATED AUTHOR AUTHOR'S ORGANIZ ATION 07/08/2023 [facility] DATE CREATED AUTHOR AUTHOR'S ORGANIZ ATION 11/24/2023 [facility] DATE CREATED AUTHOR AUTHOR'S ORGANIZ ATION 01/05/2024 [facility] DATE CREATED AUTHOR AUTHOR'S ORGANIZ ATION 08/03/2024 [facility] DATE CREATED AUTHOR AUTHOR'S ORGANIZ ATION 08/17/2024 [facility] DATE CREATED AUTHOR AUTHOR'S ORGANIZ ATION 08/18/2024 [facility] Source Comments (unrecognize d section and content) In the event this informatio n is protected by the Federal Confidentiality of Alcohol and Drug Abuse Patient Records regulations: The Federal rules restrict any use of the information to criminally investigate or prosecute any alcohol or drug abuse patient.[facility] the event this information is protected by the Federal Confidentiality of Alcohol and Drug Abuse Patient Records regulations: The Federal rules restrict any use of the information to criminally investigate or prosecute any alcohol or drug abuse patient.[facility] Rehabilitation[facility] the event this information is protected by the Federal Confidentiality of Alcohol and Drug Abuse Patient Records regulations: The Federal rules restrict any use of the information to criminally investigate or prosecute any alcohol or drug abuse patient.[facility] Rehabilitation[facility] the event this information is protected by the Federal Confidentiality of Alcohol and Drug Abuse Patient Records regulations: The Federal rules restrict any use of the information to criminally investigate or prosecute any alcohol or drug abuse patient.[facility] Rehabilitation[facility] the event this information is protected by the Federal Confidentiality of Alcohol and Drug Abuse Patient Records regulations: The Federal rules restrict any use of the information to criminally investigate or prosecute any alcohol or drug abuse patient.[facility] Rehabilitation[facility] the event this information is protected by the Federal Confidentiality of Alcohol and Drug Abuse Patient Records regulations: The Federal rules restrict any use of the information to criminally investigate or prosecute any alcohol or drug abuse patient.[facility] Rehabilitation[facility] the event this information is protected by the Federal Confidentiality of Alcohol and Drug Abuse Patient Records regulations: The Federal rules restrict any use of the information to criminally investigate or prosecute any alcohol or drug abuse patient.[facility] Rehabilitation[facility] the event this information is protected by the Federal Confidentiality of Alcohol and Drug Abuse Patient Records regulations: The Federal rules restrict any use of the information to criminally investigate or prosecute any alcohol or drug abuse patient.[facility] Rehabilitation[facility] the event this information is protected by the Federal Confidentiality of Alcohol and Drug Abuse Patient Records regulations: The Federal rules restrict any use of the information to criminally investigate or prosecute any alcohol or drug abuse patient.[facility] Rehabilitation[facility] the event this information is protected by the Federal Confidentiality of Alcohol and Drug Abuse Patient Records regulations: The Federal rules restrict any use of the information to criminally investigate or prosecute any alcohol or drug abuse patient.[facility] RehabilitationIn the event this information is protected by the Federal Confidentiality of Alcohol and Drug Abuse Patient Records regulations: The Federal rules restrict any use of the information to criminally investigate or prosecute any alcohol or drug abuse patient.[facility] RehabilitationIn the event this information is protected by the Federal Confidentiality of Alcohol and Drug Abuse Patient Records regulations: The Federal rules restrict any use of the information to criminally investigate or prosecute any alcohol or drug abuse patient.[facility] RehabilitationIn the event this information is protected by the Federal Confidentiality of Alcohol and Drug Abuse Patient Records regulations: The Federal rules restrict any use of the information to criminally investigate or prosecute any alcohol or drug abuse patient.[facility] RehabilitationIn the event this information is protected by the Federal Confidentiality of Alcohol and Drug Abuse Patient Records regulations: The Federal rules restrict any use of the information to criminally investigate or prosecute any alcohol or drug abuse patient.[facility] RehabilitationIn the event this information is protected by the Federal Confidentiality of Alcohol and Drug Abuse Patient Records regulations: The Federal rules restrict any use of the information to criminally investigate or prosecute any alcohol or drug abuse patient.[facility] RehabilitationIn the event this information is protected by the Federal Confidentiality of Alcohol and Drug Abuse Patient Records regulations: The Federal rules restrict any use of the information to criminally investigate or prosecute any alcohol or drug abuse patient.[facility] RehabilitationIn the event this information is protected by the Federal Confidentiality of Alcohol and Drug Abuse Patient Records regulations: The Federal rules restrict any use of the information to criminally investigate or prosecute any alcohol or drug abuse patient.[facility] RehabilitationIn the event this information is protected by the Federal Confidentiality of Alcohol and Drug Abuse Patient Records regulations: The Federal rules restrict any use of the information to criminally investigate or prosecute any alcohol or drug abuse patient.[facility] RehabilitationIn the event this information is protected by the Federal Confidentiality of Alcohol and Drug Abuse Patient Records regulations: The Federal rules restrict any use of the information to criminally investigate or prosecute any alcohol or drug abuse patient.[facility] RehabilitationIn the event this information is protected by the Federal Confidentiality of Alcohol and Drug Abuse Patient Records regulations: The Federal rules restrict any use of the information to criminally investigate or prosecute any alcohol or drug abuse patient.[facility] RehabilitationIn the event this information is protected by the Federal Confidentiality of Alcohol and Drug Abuse Patient Records regulations: The Federal rules restrict any use of the information to criminally investigate or prosecute any alcohol or drug abuse patient.[facility] RehabilitationIn the event this information is protected by the Federal Confidentiality of Alcohol and Drug Abuse Patient Records regulations: The Federal rules restrict any use of the information to criminally investigate or prosecute any alcohol or drug abuse patient.[facility] RehabilitationIn the event this information is protected by the Federal Confidentiality of Alcohol and Drug Abuse Patient Records regulations: The Federal rules restrict any use of the information to criminally investigate or prosecute any alcohol or drug abuse patient.[facility] RehabilitationIn the event this information is protected by the Federal Confidentiality of Alcohol and Drug Abuse Patient Records regulations: The Federal rules restrict any use of the information to criminally investigate or prosecute any alcohol or drug abuse patient.[facility] RehabilitationIn the event this information is protected by the Federal Confidentiality of Alcohol and Drug Abuse Patient Records regulations: The Federal rules restrict any use of the information to criminally investigate or prosecute any alcohol or drug abuse patient.[facility] RehabilitationIn the event this information is protected by the Federal Confidentiality of Alcohol and Drug Abuse Patient Records regulations: The Federal rules restrict any use of the information to criminally investigate or prosecute any alcohol or drug abuse patient.[facility] RehabilitationIn the event this information is protected by the Federal Confidentiality of Alcohol and Drug Abuse Patient Records regulations: The Federal rules restrict any use of the information to criminally investigate or prosecute any alcohol or drug abuse patient.[facility] RehabilitationIn the event this information is protected by the Federal Confidentiality of Alcohol and Drug Abuse Patient Records regulations: The Federal rules restrict any use of the information to criminally investigate or prosecute any alcohol or drug abuse patient.[facility] RehabilitationIn the event this information is protected by the Federal Confidentiality of Alcohol and Drug Abuse Patient Records regulations: The Federal rules restrict any use of the information to criminally investigate or prosecute any alcohol or drug abuse patient.[facility] RehabilitationIn the event this information is protected by the Federal Confidentiality of Alcohol and Drug Abuse Patient Records regulations: The Federal rules restrict any use of the information to criminally investigate or prosecute any alcohol or drug abuse patient.[facility] RehabilitationIn the event this information is protected by the Federal Confidentiality of Alcohol and Drug Abuse Patient Records regulations: The Federal rules restrict any use of the information to criminally investigate or prosecute any alcohol or drug abuse patient.[facility] RehabilitationIn the event this information is protected by the Federal Confidentiality of Alcohol and Drug Abuse Patient Records regulations: The Federal rules restrict any use of the information to criminally investigate or prosecute any alcohol or drug abuse patient.[facility] RehabilitationIn the event this information is protected by the Federal Confidentiality of Alcohol and Drug Abuse Patient Records regulations: The Federal rules restrict any use of the information to criminally investigate or prosecute any alcohol or drug abuse patient.[facility] RehabilitationIn the event this information is protected by the Federal Confidentiality of Alcohol and Drug Abuse Patient Records regulations: The Federal rules restrict any use of the information to criminally investigate or prosecute any alcohol or drug abuse patient.[facility] RehabilitationIn the event this information is protected by the Federal Confidentiality of Alcohol and Drug Abuse Patient Records regulations: The Federal rules restrict any use of the information to criminally investigate or prosecute any alcohol or drug abuse patient.[facility] RehabilitationIn the event this information is protected by the Federal Confidentiality of Alcohol and Drug Abuse Patient Records regulations: The Federal rules restrict any use of the information to criminally investigate or prosecute any alcohol or drug abuse patient.[facility] RehabilitationIn the event this information is protected by the Federal Confidentiality of Alcohol and Drug Abuse Patient Records regulations: The Federal rules restrict any use of the information to criminally investigate or prosecute any alcohol or drug abuse patient.[facility] RehabilitationIn the event this information is protected by the Federal Confidentiality of Alcohol and Drug Abuse Patient Records regulations: The Federal rules restrict any use of the information to criminally investigate or prosecute any alcohol or drug abuse patient.[facility] RehabilitationIn the event this information is protected by the Federal Confidentiality of Alcohol and Drug Abuse Patient Records regulations: The Federal rules restrict any use of the information to criminally investigate or prosecute any alcohol or drug abuse patient.[facility] RehabilitationIn the event this information is protected by the Federal Confidentiality of Alcohol and Drug Abuse Patient Records regulations: The Federal rules restrict any use of the information to criminally investigate or prosecute any alcohol or drug abuse patient.[facility] RehabilitationIn the event this information is protected by the Federal Confidentiality of Alcohol and Drug Abuse Patient Records regulations: The Federal rules restrict any use of the information to criminally investigate or prosecute any alcohol or drug abuse patient.[facility] RehabilitationIn the event this information is protected by the Federal Confidentiality of Alcohol and Drug Abuse Patient Records regulations: The Federal rules restrict any use of the information to criminally investigate or prosecute any alcohol or drug abuse patient.[facility] RehabilitationIn the event this information is protected by the Federal Confidentiality of Alcohol and Drug Abuse Patient Records regulations: The Federal rules restrict any use of the information to criminally investigate or prosecute any alcohol or drug abuse patient.[place] the event this information is protected by the Federal Confidentiality of Alcohol and Drug Abuse Patient Records regulations: The Federal rules restrict any use of the information to criminally investigate or prosecute any alcohol or drug abuse patient.[facility] RehabilitationIn the event this information is protected by the Federal Confidentiality of Alcohol and Drug Abuse Patient Records regulations: The Federal rules restrict any use of the information to criminally investigate or prosecute any alcohol or drug abuse patient.[facility] RehabilitationIn the event this information is protected by the Federal Confidentiality of Alcohol and Drug Abuse Patient Records regulations: The Federal rules restrict any use of the information to criminally investigate or prosecute any alcohol or drug abuse patient.[facility]In the event this information is protected by the Federal Confidentiality of Alcohol and Drug Abuse Patient Records regulations: The Federal rules restrict any use of the information to criminally investigate or prosecute any alcohol or drug abuse patient.[facility] RehabilitationIn the event this information is protected by the Federal Confidentiality of Alcohol and Drug Abuse Patient Records regulations: The Federal rules restrict any use of the information to criminally investigate or prosecute any alcohol or drug abuse patient.[facility] RehabilitationIn the event this information is protected by the Federal Confidentiality of Alcohol and Drug Abuse Patient Records regulations: The Federal rules restrict any use of the information to criminally investigate or prosecute any alcohol or drug abuse patient.[facility] RehabilitationIn the event this information is protected by the Federal Confidentiality of Alcohol and Drug Abuse Patient Records regulations: The Federal rules restrict any use of the information to criminally investigate or prosecute any alcohol or drug abuse patient.[facility] RehabilitationIn the event this information is protected by the Federal Confidentiality of Alcohol and Drug Abuse Patient Records regulations: The Federal rules restrict any use of the information to criminally investigate or prosecute any alcohol or drug abuse patient.[facility] RehabilitationIn the event this information is protected by the Federal Confidentiality of Alcohol and Drug Abuse Patient Records regulations: The Federal rules restrict any use of the information to criminally investigate or prosecute any alcohol or drug abuse patient.[facility] RehabilitationIn the event this information is protected by the Federal Confidentiality of Alcohol and Drug Abuse Patient Records regulations: The Federal rules restrict any use of the information to criminally investigate or prosecute any alcohol or drug abuse patient.[facility] RehabilitationIn the event this information is protected by the Federal Confidentiality of Alcohol and Drug Abuse Patient Records regulations: The Federal rules restrict any use of the information to criminally investigate or prosecute any alcohol or drug abuse patient.[facility] RehabilitationIn the event this information is protected by the Federal Confidentiality of Alcohol and Drug Abuse Patient Records regulations: The Federal rules restrict any use of the information to criminally investigate or prosecute any alcohol or drug abuse patient.[facility] RehabilitationIn the event this information is protected by the Federal Confidentiality of Alcohol and Drug Abuse Patient Records regulations: The Federal rules restrict any use of the information to criminally investigate or prosecute any alcohol or drug abuse patient.[facility] RehabilitationIn the event this information is protected by the Federal Confidentiality of Alcohol and Drug Abuse Patient Records regulations: The Federal rules restrict any use of the information to criminally investigate or prosecute any alcohol or drug abuse patient.[facility] RehabilitationIn the event this information is protected by the Federal Confidentiality of Alcohol and Drug Abuse Patient Records regulations: The Federal rules restrict any use of the information to criminally investigate or prosecute any alcohol or drug abuse patient.[facility] RehabilitationIn the event this information is protected by the Federal Confidentiality of Alcohol and Drug Abuse Patient Records regulations: The Federal rules restrict any use of the information to criminally investigate or prosecute any alcohol or drug abuse patient.[facility] RehabilitationIn the event this information is protected by the Federal Confidentiality of Alcohol and Drug Abuse Patient Records regulations: The Federal rules restrict any use of the information to criminally investigate or prosecute any alcohol or drug abuse patient.[facility] RehabilitationIn the event this information is protected by the Federal Confidentiality of Alcohol and Drug Abuse Patient Records regulations: The Federal rules restrict any use of the information to criminally investigate or prosecute any alcohol or drug abuse patient.[facility] RehabilitationIn the event this information is protected by the Federal Confidentiality of Alcohol and Drug Abuse Patient Records regulations: The Federal rules restrict any use of the information to criminally investigate or prosecute any alcohol or drug abuse patient.[facility] RehabilitationIn the event this information is protected by the Federal Confidentiality of Alcohol and Drug Abuse Patient Records regulations: The Federal rules restrict any use of the information to criminally investigate or prosecute any alcohol or drug abuse patient.[facility] RehabilitationIn the event this information is protected by the Federal Confidentiality of Alcohol and Drug Abuse Patient Records regulations: The Federal rules restrict any use of the information to criminally investigate or prosecute any alcohol or drug abuse patient.[facility] RehabilitationIn the event this information is protected by the Federal Confidentiality of Alcohol and Drug Abuse Patient Records regulations: The Federal rules restrict any use of the information to criminally investigate or prosecute any alcohol or drug abuse patient.[facility] RehabilitationIn the event this information is protected by the Federal Confidentiality of Alcohol and Drug Abuse Patient Records regulations: The Federal rules restrict any use of the information to criminally investigate or prosecute any alcohol or drug abuse patient.[facility] RehabilitationIn the event this information is protected by the Federal Confidentiality of Alcohol and Drug Abuse Patient Records regulations: The Federal rules restrict any use of the information to criminally investigate or prosecute any alcohol or drug abuse patient.[facility] RehabilitationIn the event this information is protected by the Federal Confidentiality of Alcohol and Drug Abuse Patient Records regulations: The Federal rules restrict any use of the information to criminally investigate or prosecute any alcohol or drug abuse patient.[facility] RehabilitationIn the event this information is protected by the Federal Confidentiality of Alcohol and Drug Abuse Patient Records regulations: The Federal rules restrict any use of the information to criminally investigate or prosecute any alcohol or drug abuse patient.[facility] RehabilitationIn the event this information is protected by the Federal Confidentiality of Alcohol and Drug Abuse Patient Records regulations: The Federal rules restrict any use of the information to criminally investigate or prosecute any alcohol or drug abuse patient.[facility] RehabilitationIn the event this information is protected by the Federal Confidentiality of Alcohol and Drug Abuse Patient Records regulations: The Federal rules restrict any use of the information to criminally investigate or prosecute any alcohol or drug abuse patient.[facility] RehabilitationIn the event this information is protected by the Federal Confidentiality of Alcohol and Drug Abuse Patient Records regulations: The Federal rules restrict any use of the information to criminally investigate or prosecute any alcohol or drug abuse patient.[facility] RehabilitationIn the event this information is protected by the Federal Confidentiality of Alcohol and Drug Abuse Patient Records regulations: The Federal rules restrict any use of the information to criminally investigate or prosecute any alcohol or drug abuse patient.[facility] RehabilitationIn the event this information is protected by the Federal Confidentiality of Alcohol and Drug Abuse Patient Records regulations: The Federal rules restrict any use of the information to criminally investigate or prosecute any alcohol or drug abuse patient.[facility] RehabilitationIn the event this information is protected by the Federal Confidentiality of Alcohol and Drug Abuse Patient Records regulations: The Federal rules restrict any use of the information to criminally investigate or prosecute any alcohol or drug abuse patient.[facility] RehabilitationIn the event this information is protected by the Federal Confidentiality of Alcohol and Drug Abuse Patient Records regulations: The Federal rules restrict any use of the information to criminally investigate or prosecute any alcohol or drug abuse patient.[facility] RehabilitationIn the event this information is protected by the Federal Confidentiality of Alcohol and Drug Abuse Patient Records regulations: The Federal rules restrict any use of the information to criminally investigate or prosecute any alcohol or drug abuse patient.[facility] RehabilitationIn the event this information is protected by the Federal Confidentiality of Alcohol and Drug Abuse Patient Records regulations: The Federal rules restrict any use of the information to criminally investigate or prosecute any alcohol or drug abuse patient.[facility] RehabilitationIn the event this information is protected by the Federal Confidentiality of Alcohol and Drug Abuse Patient Records regulations: The Federal rules restrict any use of the information to criminally investigate or prosecute any alcohol or drug abuse patient.[facility] RehabilitationIn the event this information is protected by the Federal Confidentiality of Alcohol and Drug Abuse Patient Records regulations: The Federal rules restrict any use of the information to criminally investigate or prosecute any alcohol or drug abuse patient.[facility] RehabilitationIn the event this information is protected by the Federal Confidentiality of Alcohol and Drug Abuse Patient Records regulations: The Federal rules restrict any use of the information to criminally investigate or prosecute any alcohol or drug abuse patient.[facility] RehabilitationIn the event this information is protected by the Federal Confidentiality of Alcohol and Drug Abuse Patient Records regulations: The Federal rules restrict any use of the information to criminally investigate or prosecute any alcohol or drug abuse patient.[facility] RehabilitationIn the event this information is protected by the Federal Confidentiality of Alcohol and Drug Abuse Patient Records regulations: The Federal rules restrict any use of the information to criminally investigate or prosecute any alcohol or drug abuse patient.[facility] RehabilitationIn the event this information is protected by the Federal Confidentiality of Alcohol and Drug Abuse Patient Records regulations: The Federal rules restrict any use of the information to criminally investigate or prosecute any alcohol or drug abuse patient.[facility] RehabilitationIn the event this information is protected by the Federal Confidentiality of Alcohol and Drug Abuse Patient Records regulations: The Federal rules restrict any use of the information to criminally investigate or prosecute any alcohol or drug abuse patient.[facility] RehabilitationIn the event this information is protected by the Federal Confidentiality of Alcohol and Drug Abuse Patient Records regulations: The Federal rules restrict any use of the information to criminally investigate or prosecute any alcohol or drug abuse patient.[facility] RehabilitationIn the event this information is protected by the Federal Confidentiality of Alcohol and Drug Abuse Patient Records regulations: The Federal rules restrict any use of the information to criminally investigate or prosecute any alcohol or drug abuse patient.[facility] RehabilitationIn the event this information is protected by the Federal Confidentiality of Alcohol and Drug Abuse Patient Records regulations: The Federal rules restrict any use of the information to criminally investigate or prosecute any alcohol or drug abuse patient.[facility] RehabilitationIn the event this information is protected by the Federal Confidentiality of Alcohol and Drug Abuse Patient Records regulations: The Federal rules restrict any use of the information to criminally investigate or prosecute any alcohol or drug abuse patient.[facility] RehabilitationIn the event this information is protected by the Federal Confidentiality of Alcohol and Drug Abuse Patient Records regulations: The Federal rules restrict any use of the information to criminally investigate or prosecute any alcohol or drug abuse patient.[facility] RehabilitationIn the event this information is protected by the Federal Confidentiality of Alcohol and Drug Abuse Patient Records regulations: The Federal rules restrict any use of the information to criminally investigate or prosecute any alcohol or drug abuse patient.[facility] RehabilitationIn the event this information is protected by the Federal Confidentiality of Alcohol and Drug Abuse Patient Records regulations: The Federal rules restrict any use of the information to criminally investigate or prosecute any alcohol or drug abuse patient.[facility] RehabilitationIn the event this information is protected by the Federal Confidentiality of Alcohol and Drug Abuse Patient Records regulations: The Federal rules restrict any use of the information to criminally investigate or prosecute any alcohol or drug abuse patient.[facility] RehabilitationIn the event this information is protected by the Federal Confidentiality of Alcohol and Drug Abuse Patient Records regulations: The Federal rules restrict any use of the information to criminally investigate or prosecute any alcohol or drug abuse patient.[facility] RehabilitationIn the event this information is protected by the Federal Confidentiality of Alcohol and Drug Abuse Patient Records regulations: The Federal rules restrict any use of the information to criminally investigate or prosecute any alcohol or drug abuse patient.[facility] Reason for Visit (unrecogniz ed section and content) Reason Comments Refill Request Reason Comments CARD Follow Up 6 Month Reason Comments Sleep Apnea Specialty Diagnoses / Procedures Referred By Darnell garcia Referred To Contact Diagnoses Obstructive sleep apnea syndrome Procedures CONSULT TO SLEEP MEDICINE - ADULT OFFICE/[facility]IENT [facility] 60-74 MINUTES Chalo Patel DO [address] [place] [address] Referral ID Status Reason Start Date Expiration Date V isits Requested Visits Authorized [id number] Closed PCP Requested Referral 09/04/2021 09/04/2022 1 1 Reason Comments Appointment Reason Comments Appointment Cancelled Reason Comments CARD Follow Up 3 Month Reason Comments CARD Follow Up 6 Month Reason Comments Diabetes Specialty Diagnoses / Procedures [facility] Referred To Contact Diagnoses Hyperlipidemia associated with type 2 diabetes mellitus (HCC) Class 1 obesity due to excess calories with serious comorbidity and body mass index (BMI) of 32.0 to 32.9 in adult Procedures ENDOCRINE MEDICAL WEIGHT MANAGEMENT OFFICE/OUTPATIENT NEW HIGH MDM 60-74 MINUTES Chalo Patel DO [address] [place] [address] Referral ID Status Reason Start Date Expiration Date V isits Requested Visits Authorized [id number] Closed PCP Requested Referral 06/11/2022 06/11/2023 1 1 Reason Comments Follow Up Reason Comments Patient Assistance Omid Nordisk- Ozempi c Reason Comments Diabetes Reason Comments PAP Therapy Follow Up Reason Comments CARD Follow Up 6 Month Reason Comments Patient Assistance Omid Nordisk- Ozempi c 2mg (medication increase) Reason Comments Radiology NM Specialty Diagnoses / Procedures Referred By Darnell Referred To Contact MOLECULAR & FUNCTIONAL IMAGING Diagnoses Chest discomfort Procedures NM CARDIAC PERF STRESS/PHARM MYOCARDIAL SPECT MULTIPLE STUDIES Chalo Patel DO [address] [place] [address] Molecular & Functional Imaging [address] [place] [id number] Referral ID Status Reason Start Date Expiration Date V isits Requested Visits Authorized [id number] Closed Auto-Generate d Referral 09/04/2021 10/04/2022 1 1 Reason Comments Forms [facility] - Written Order for diabetic testing supplies [...] Procedures CONSULT TO NEPHROLOGY OFFICE/OUTPATIENT NEW HIGH [facility] 60 MINUTES Niraj Cheng PA-C [address] [place] [address] Referral ID Status Reason Start Date Expiration Date V isits Requested Visits Authorized [id number] Closed PCP Requested Referral 07/01/2023 06/30/2024 1 1 Reason Comments Cardiology Follow Up X 4 months Reason Onset Date Comments Refill Request 11/10/2023 Reason Comments Establish Care 4-6 months follow up Reason Comments Follow Up Reason Comments Patient Request Reason Comments Pain Specialty Diagnoses / Procedures Referred By Contac t Referred To Contact Orthopaedic Surgery Diagnoses Tendinitis of left rotator cuff Radha Little, EMERGING TECHNOLOGIES DIRECTOR [address] [place] [address] Phone: tel: fax: Rocio Moss PA [address] [place] [address] Phone: tel: fax: Referral ID Status Reason Start Date Expiration Date V isits Requested Visits Authorized [id number] Closed Specialty Services Required 02/10/2024 08/08/2024 1 1 Reason Comments Follow Up Chronic Kidney Disease Reason Comments Patient Assistance Omid Nordisk: Ozempi c Reason Comments Med Refill Reason Comments appt cancellation Reason Comments CARD Follow Up 6 Month Reason Comments Establish Care 6 months follow up Reason Comments Cough Care Teams (unrecognized sec tion and content) Wood Buffer Relationship Specialty Start Date End Date Radha Little, INTERNET MANAGER [address] [place] [address] PCP - General Family Practice 01/08/20 Wood Buffer Relationship Specialty Start Date End Date Radha Little INTERNET MANAGER [address] [place] [address] PCP - General Family Practice 01/08/20 Wood Buffer Relationship Specialty Start Date End Date Radha Little, INTERNET MANAGER [address] [place] [address] PCP - General Family Practice 01/08/20 Wood Buffer Relationship Specialty Start Date End Date Radha Little, INTERNET MANAGER [address] [place] [address] PCP - General Family Practice 01/08/20 Wood Buffer Relationship Specialty Start Date End Date Radha Little, INTERNET MANAGER [address] [place] [address] PCP - General Family Practice 01/08/20 Wood Buffer Relationship Specialty Start Date End Date Radha Little, INTERNET MANAGER [address] [place] [address] PCP - General Family Practice 01/08/20 Wood Buffer Relationship Specialty Start Date End Date Radha Little, INTERNET MANAGER [address] [place] [address] PCP - General Family Practice 01/08/20 Wood Buffer Relationship Specialty Start Date End Date Radha Little, INTERNET MANAGER [address] [place] [address] PCP - General Family Medicine 01/08/20 Wood Buffer Relationship Specialty Start Date End Date Radha Little, INTERNET MANAGER [address] [place] [address] PCP - General Family Medicine 01/08/20 Wood Buffer Relationship Specialty Start Date End Date Radha Little, INTERNET MANAGER [address] [place] [address] PCP - General Family Medicine 01/08/20 Wood Buffer Relationship Specialty Start Date End Date Radha Little, INTERNET MANAGER [address] [place] [address] PCP - General Family Medicine 01/08/20 Wood Buffer Relationship Specialty Start Date End Date Radha Little, INTERNET MANAGER [address] [place] [address] PCP - General Family Medicine 01/08/20 Wood Buffer Relationship Specialty Start Date End Date Radha Little, INTERNET MANAGER [address] [place] [address] PCP - General Family Medicine 01/08/20 Wood Buffer Relationship Specialty Start Date End Date Radha Little, INTERNET MANAGER [address] [place] [address] PCP - General Family Medicine 01/08/20 Wood Buffer Relationship Specialty Start Date End Date Radha Little, INTERNET MANAGER [address] [place] [address] PCP - General Family Medicine 01/08/20 Wood Buffer Relationship Specialty Start Date End Date Radha Little INTERNET MANAGER [address] [place] [address] PCP - General Family Medicine 01/08/20 Wood Buffer Relationship Specialty Start Date End Date Radha Little, INTERNET MANAGER [address] [place] [address] PCP - General Family Medicine 01/08/20 Wood Buffer Relationship Specialty Start Date End Date Radha Little INTERNET MANAGER [address] [place] [address] PCP - General Family Medicine 01/08/20 Wood Buffer Relationship Specialty Start Date End Date Radha Little CNP [address] [place] [address] PCP - General Family Medicine 01/08/20 Wood Buffer Relationship Specialty Start Date End Date Radha Little CNP [address] [place] [address] PCP - General Family Medicine 01/08/20 Wood Buffer Relationship Specialty Start Date End Date Radha Little CNP [address] [place] [address] PCP - General Family Medicine 01/08/20 Wood Buffer Relationship Specialty Start Date End Date Radha Little CNP [address] [place] [address] PCP - General Family Medicine 01/08/20 Wood Buffer Relationship Specialty Start Date End Date Radha Little CNP [address] [place] [address] PCP - General Family Medicine 01/08/20 Wood Buffer Relationship Specialty Start Date End Date Radha Little INTERNET MANAGER [address] [place] [address] PCP - General Family Medicine 01/08/20 Wood Buffer Relationship Specialty Start Date End Date Radha Little CNP [address] [place] [address] PCP - General Family Medicine 01/08/20 Wood Buffer Relationship Specialty Start Date End Date Radha Little CNP [address] [place] [address] PCP - General Family Medicine 01/08/20 Wood Buffer Relationship Specialty Start Date End Date Radha Little CNP [address] [place] [address] PCP - General Family Medicine 01/08/20 Wood Buffer Relationship Specialty Start Date End Date Radha Little CNP [address] [place] [address] PCP - General Family Medicine 01/08/20 Wood Buffer Relationship Specialty Start Date End Date Radha Little CNP [address] [place] [address] PCP - General Family Medicine 01/08/20 Wood Buffer Relationship Specialty Start Date End Date Radha Little CNP [address] [place] [address] PCP - General Family Medicine 01/08/20 Wood Buffer Relationship Specialty Start Date End Date Arturo Craft MD PCP - General Family Medicine 11/13/22 Radha Little, EMERGING TECHNOLOGIES DIRECTOR [address] [place] [address] Nurse Practitioner Family Medicine 11/13/22 Wood Buffer Relationship Specialty Start Date End Date Radha Little CNP [address] [place] [address] PCP - General Family Medicine 01/08/20 Wood Buffer Relationship Specialty Start Date End Date Radha Little CNP [address] [place] [address] PCP - General Family Medicine 01/08/20 Wood Buffer Relationship Specialty Start Date End Date Radha Little CNP [address] [place] [address] PCP - General Family Medicine 01/08/20 Wood Buffer Relationship Specialty Start Date End Date Radha Little CNP [address] [place] [address] PCP - General Family Medicine 01/08/20 Wood Buffer Relationship Specialty Start Date End Date Radha Little CNP [address] [place] [address] PCP - General Family Medicine 01/08/20 Wood Buffer Relationship Specialty Start Date End Date Radha Little CNP [address] [place] [address] PCP - General Family Medicine 01/08/20 Wood Buffer Relationship Specialty Start Date End Date Radha Little CNP [address] [place] [address] PCP - General Family Medicine 01/08/20 Wood Buffer Relationship Specialty Start Date End Date Radha Little CNP [address] [place] [address] PCP - General Family Medicine 01/08/20 Wood Buffer Relationship Specialty Start Date End Date Radha Little CNP [address] [place] [address] PCP - General Family Medicine 01/08/20 Wood Buffer Relationship Specialty Start Date End Date Radha Little CNP [address] [place] [address] PCP - General Family Medicine 01/08/20 Wood Buffer Relationship Specialty Start Date End Date Radha Little CNP [address] [place] [address] PCP - General Family Medicine 01/08/20 Wood Buffer Relationship Specialty Start Date End Date Radha Little CNP [address] [place] [address] PCP - General Family Medicine 01/08/20 Wood Buffer Relationship Specialty Start Date End Date Radha Little INTERNET MANAGER [address] [place] [address] PCP - General Family Medicine 01/08/20 Wood Buffer Relationship Specialty Start Date End Date Radha Little CNP [address] [place] [address] PCP - General Family Medicine 01/08/20 Wood Buffer Relationship Specialty Start Date End Date Radha Little CNP [address] [place] [address] PCP - General Family Medicine 01/08/20 Wood Buffer Relationship Specialty Start Date End Date Radha Little CNP [address] [place] [address] PCP - General Family Medicine 01/08/20 Wood Buffer Relationship Specialty Start Date End Date Radha Little CNP [address] [place] [address] PCP - General Family Medicine 01/08/20 Wood Buffer Relationship Specialty Start Date End Date Radha Little CNP [address] [place] [address] PCP - General Family Medicine 01/08/20 Wood Buffer Relationship Specialty Start Date End Date Radha Little CNP [address] [place] [address] PCP - General Family Medicine 01/08/20 Wood Buffer Relationship Specialty Start Date End Date Radha Little CNP [address] [place] [address] PCP - General Family Medicine 01/08/20 Wood Buffer Relationship Specialty Start Date End Date Radha Little CNP [address] [place] [address] PCP - General Family Medicine 01/08/20 Wood Buffer Relationship Specialty Start Date End Date Radha Little CNP [address] [place] [address] PCP - General Family Medicine 01/08/20 Wood Buffer Relationship Specialty Start Date End Date Radha Little CNP [address] [place] [address] PCP - General Family Medicine 01/08/20 Wood Buffer Relationship Specialty Start Date End Date Radha Little INTERNET MANAGER [address] [place] [address] PCP - General Family Medicine 01/08/20 Wood Buffer Relationship Specialty Start Date End Date Arturo Craft MD [address] [place] [address] PCP - General Family Medicine 11/13/22 Radha Little NP [address] [place] [address] Nurse Practitioner Family Medicine 11/13/22 Wood Buffer Relationship Specialty Start Date End Date Radha Little CNP [address] [place] [address] PCP - General Family Medicine 01/08/20 Wood Buffer Relationship Specialty Start Date End Date Arturo Craft MD [address] [place] [address] PCP - General Family Medicine 11/13/22 Radha Little, EMERGING TECHNOLOGIES DIRECTOR [address] [place] [address] Nurse Practitioner Family Medicine 11/13/22 Wood Buffer Relationship Specialty Start Date End Date Radha Little CNP [address] [place] [address] PCP - General Family Medicine 01/08/20 Wood Buffer Relationship Specialty Start Date End Date Arturo Craft MD [address] [place] [address] PCP - General Family Medicine 11/13/22 Radha Little NP [address] [place] [address] Nurse Practitioner Family Medicine 11/13/22 Wood Buffer Relationship Specialty Start Date End Date Arturo Craft MD [address] [place] [address] PCP - General Family Medicine 11/13/22 Radha Little NP [address] [place] [address] Nurse Practitioner Family Medicine 11/13/22 Wood Buffer Relationship Specialty Start Date End Date Arturo Craft MD [address] [place] [address] PCP - General Family Medicine 11/13/22 Radha Little NP [address] [place] [address] Nurse Practitioner Family Medicine 11/13/22 Wood Buffer Relationship Specialty Start Date End Date Arturo Craft MD [address] [place] [address] PCP - General Family Medicine 11/13/22 Radha Little NP [address] [place] [address] Nurse Practitioner Family Medicine 11/13/22 Wood Buffer Relationship Specialty Start Date End Date Arturo Craft MD [address] [place] [address] PCP - General Family Medicine 11/13/22 Radha Little NP [address] [place] [address] Nurse Practitioner Family Medicine 11/13/22 Wood Buffer Relationship Specialty Start Date End Date Arturo Craft MD [address] [place] [address] PCP - General Family Medicine 11/13/22 Radha Little NP [address] [place] [address] Nurse Practitioner Family Medicine 11/13/22 Wood Buffer Relationship Specialty Start Date End Date Arturo Craft MD [address] [place] [address] PCP - General Family Medicine 11/13/22 Radha Little NP [address] [place] [address] Nurse Practitioner Family Medicine 11/13/22 Wood Buffer Relationship Specialty Start Date End Date Arturo Craft MD [address] [place] [address] PCP - General Family Medicine 11/13/22 Radha Little NP [address] [place] [address] Nurse Practitioner Family Medicine 11/13/22 Wood Buffer Relationship Specialty Start Date End Date Arturo Craft MD [address] [place] [address] PCP - General Family Medicine 11/13/22 Radha Little NP [address] [place] [address] Nurse Practitioner Family Medicine 11/13/22 Wood Buffer Relationship Specialty Start Date End Date Arturo Craft MD [address] [place] [address] PCP - General Family Medicine 11/13/22 Radha Little NP [address] [place] [address] Nurse Practitioner Family Medicine 11/13/22 Wood Buffer Relationship Specialty Start Date End Date Arturo Craft MD [address] [place] [address] PCP - General Family Medicine 11/13/22 Radha Little NP [address] [place] [address] Nurse Practitioner Family Medicine 11/13/22 Wood Buffer Relationship Specialty Start Date End Date Radha Little INTERNET MANAGER [address] [place] [address] PCP - General Family Medicine 01/08/20 Wood Buffer Relationship Specialty Start Date End Date Arturo Craft MD [address] [place] [address] PCP - General Family Medicine 11/13/22 Radha Little NP [address] [place] [address] Nurse Practitioner Family Medicine 11/13/22 Wood Buffer Relationship Specialty Start Date End Date Radha Little, INTERNET MANAGER [address] [place] [address] PCP - General Family Medicine 01/08/20 Wood Buffer Relationship Specialty Start Date End Date Radha Little INTERNET MANAGER [address] [place] [address] PCP - General Family Medicine 01/08/20 Wood Buffer Relationship Specialty Start Date End Date Radha Little CNP [address] [place] [address] PCP - General Family Medicine 01/08/20 Wood Buffer Relationship Specialty Start Date End Date Arturo Craft MD [address] [place] [address] PCP - General Family Medicine 11/13/22 Radha Little, RAMIRO [address] [place] [address] Nurse Practitioner Family Medicine 11/13/22 Wood Buffer Relationship Specialty Start Date End Date Arturo Craft MD [address] [place] [address] PCP - General Family Medicine 11/13/22 Radha Little, EMERGING TECHNOLOGIES DIRECTOR [address] [place] [address] Nurse Practitioner Family Medicine 11/13/22 Wood Buffer Relationship Specialty Start Date End Date Arturo Craft MD [address] [place] [address] PCP - General Family Medicine 11/13/22 Radha Little NP [address] [place] [address] Nurse Practitioner Family Medicine 11/13/22 Inactive Administered Medications - up to 3 [...] BE BASED ON THE PRIMARY CLINICAL RECORDS. [facility] provides no warranty or guarantee of the accuracy or completeness of information in this document.
== END 2024-08-22 07:02 | disposition home or self-care (01) ==
LOC: US 07:01
PROVIDERS: PCP Nurse Practitioner; Visit Provider Nurse Practitioner
DX: K74.69 Other cirrhosis of liver (principal); N28.1 Cyst of kidney, acquired
CPT/HCPCS: 76705

== ENCOUNTER 2025-04-02 14:38 | Emergency (ER) | payer MEDICARE, OTHER, SELFPAY ==
[2025-04-02 14:58] VITALS: BP 161/89; PULSE 87; TEMP 36.7; O2SAT 97; BMI 25.8
--- NOTE | 2025-04-02 15:08 | ED.FALL1 ---
HPI HPI - Fall General Chief Complaint: Fall Stated Complaint: FALL; R HIP PAIN Time Seen by Provider: 04/02/25 15:03 Source: patient and family () Mode of arrival: walk-in Limitations: no limitations History of Present Illness HPI Narrative: 79-year-old female presents to the emergency department with with complaint of right hip pain. Patient states she was walking towards a retail store, was set to step up onto the curb when a man walking a dog went by her, the dog started barking, startling her, she missed a step and fell, landing on her hip. Some bystanders helped her to her feet. She only had minimal pain at that time was able to complete her errands. However, over time, she has developed increasing pain, swelling to the hip region. Denies any other injury. She is on Plavix. Denies head or neck pain. Denies back pain, chest pain, abdominal pain, upper extremity pain. Blunt trauma Quality:?as above Severity:?moderate Timing:?as above Context: Normal setting and activity? Modifying factors:?Pain worse with palpation, movement Associated symptoms: as above Related Data Home Medications ?Medication ?Instructions ?Recorded ?Confirmed allopurinol 100 mg tablet 100 mg PO DAILY 02/14/23 08/15/24 aspirin 81 mg tablet,delayed 81 mg PO BEDTIME 02/14/23 08/15/24 release magnesium oxide 400 mg PO BID 02/14/23 08/15/24 rosuvastatin 40 mg tablet 40 mg PO BEDTIME 02/14/23 08/15/24 semaglutide 1 mg/dose (2 mg/1.5 1 mg subcut QWEEK 02/14/23 11/29/23 mL) subcutaneous pen injector clopidogrel 75 mg tablet 75 mg PO DAILY 11/17/23 08/15/24 empagliflozin 10 mg tablet 10 mg PO DAILY 11/17/23 08/15/24 (Jardiance) metoprolol succinate 25 mg 50 mg PO Q12H 11/17/23 08/15/24 tablet,extended release 24 hr valsartan 40 mg tablet 20 mg PO DAILY 11/17/23 08/15/24 ergocalciferol (vitamin D2) 1,250 08/15/24 mcg (50,000 unit) capsule spironolactone 100 mg tablet 100 mg PO DAILY 08/15/24 08/15/24 spironolactone 25 mg tablet 25 mg PO DAILY 08/15/24 08/15/24 Previous Rx's ?Medication ?Instructions ?Recorded oxycodone-acetaminophen 5 mg-325 1 tab PO Q8H PRN pain #10 tabs 04/02/25 mg tablet (Percocet) Allergies Allergy/AdvReac Type Severity Reaction Status Date / Time Penicillins Allergy Intermediate Unknown Verified 04/02/25 15:01 Iodinated Contrast Media Allergy throat Verified 04/02/25 15:01 itching Opioid HPI Opioid Management Most Recent Pain and Opioid Data: Last Pain Scale 8 Today, 14:58 Review of Systems ROS Narrative CONST: Denies activity change, weakness MS: + arthralgias, swelling.? Denies myalgias SKIN: + bruising in varying areas of her body which she states is chronic. Denies color change, wound NEURO: Denies numbness, paresthesias, weakness PFSH PFSH Medical History Congestive heart failure ?I50.9 - Heart failure, unspecified (ICD-10) Pacemaker ?Z95.0 - Presence of cardiac pacemaker (ICD-10) Cardiac defibrillator in place ?Z95.810 - Presence of automatic (implantable) cardiac defibrillator (ICD-10) TMJ (dislocation of temporomandibular joint) ?S03.00XA - Dislocation of jaw, unspecified side, initial encounter (ICD-10) Peripheral vascular disease ?I73.9 - Peripheral vascular disease, unspecified (ICD-10) Osteoarthritis ?M19.90 - Unspecified osteoarthritis, unspecified site (ICD-10) Lumbar disc disease ?M51.9 - Unspecified thoracic, thoracolumbar and lumbosacral intervertebral disc disorder (ICD-10) Low back pain ?M54.50 - Low back pain, unspecified (ICD-10) Chronic pain ?G89.29 - Other chronic pain (ICD-10) Left lower quadrant pain ?R10.32 - Left lower quadrant pain (ICD-10) Abnormal abdominal CT scan ?R93.5 - Abnormal findings on diagnostic imaging of other abdominal regions, including retroperitoneum (ICD-10) Leukocytosis ?D72.829 - Elevated white blood cell count, unspecified (ICD-10) HLD (hyperlipidemia) ?E78.5 - Hyperlipidemia, unspecified (ICD-10) Type 2 diabetes mellitus ?E11.9 - Type 2 diabetes mellitus without complications (ICD-10) Acute exacerbation of CHF (congestive heart failure) ?I50.9 - Heart failure, unspecified (ICD-10) Surgical History History of femoropopliteal bypass ?Z98.890 - Other specified postprocedural states (ICD-10) History of heart artery stent ?Z95.5 - Presence of coronary angioplasty implant and graft (ICD-10) History of cardiac defibrillator placement ?Z95.810 - Presence of automatic (implantable) cardiac defibrillator (ICD-10) History of tonsillectomy ?Z90.89 - Acquired absence of other organs (ICD-10) History of tubal ligation ?Z98.51 - Tubal ligation status (ICD-10) S/P epidural steroid injection ?Z92.241 - Personal history of systemic steroid therapy (ICD-10) H/O colonoscopy ?Z98.890 - Other specified postprocedural states (ICD-10) History of cholecystectomy ?Z90.49 - Acquired absence of other specified parts of digestive tract (ICD-10) H/O cataract extraction ?Z98.49 - Cataract extraction status, unspecified eye (ICD-10) History of cardiac catheterization ?Z98.890 - Other specified postprocedural states (ICD-10) H/O midurethral sling procedure ?Z98.890 - Other specified postprocedural states (ICD-10) History of appendectomy ?Z90.49 - Acquired absence of other specified parts of digestive tract (ICD-10) Aortic valve replaced ?Z95.2 - Presence of prosthetic heart valve (ICD-10) H/O eye surgery ?Z98.890 - Other specified postprocedural states (ICD-10) H/O: hysterectomy ?Z90.710 - Acquired absence of both cervix and uterus (ICD-10) S/P femoral-femoral bypass surgery ?Z95.828 - Presence of other vascular implants and grafts (ICD-10) Family History Other Family history of cancer Family history of diabetes mellitus Family history of myocardial infarction Heart disease Social History Within the past year, how often did you have a drink containing alcohol: monthly or less Within the past year, how many standard drinks containing alcohol did you have on a typical day: 1 or 2 Within the past year, how often did you have six or more drinks on one occasion: never Total score: 0 Score interpretation: A score less than 3 is consistent with normal alcohol consumption. Smoking status: Former smoker Second hand tobacco smoke exposure: Yes Non-prescribed substance use: denies use Highest level of school completed/degree received: some college, no degree Are you now , , , , never or living with a partner: In a typical week, how many times do you talk on the telephone with family, friends, or neighbors: 3 or more times per week How often do you get together with friends or relatives: 3 or more times per week How often do you attend baptism or presybeterian services: 4 or more times per year Do you belong to any clubs or organizations such as baptism groups unions, [employer] or athletic groups, or school groups: yes Total score: 4 Score interpretation: A score of greater than or equal to 2 indicates the lowest level of social isolation. Little interest or pleasure in doing things: not at all Feeling down, depressed, or hopeless: not at all Feel stressed/tense/nervous/anxious/difficulty sleeping: only a little Life stressors: other Life stressor details: [employer] W[employer] QUIT Due to disability, difficulty making decisions: No Do you think of yourself as: straight/heterosexual Gender Identity: female Exam Narrative Exam Narrative: Vital signs noted Nurses notes reviewed CONST: Nontoxic, well appearing, well nourished, in no distress.? HENT: normocephalic, atraumatic. CV: 2+ palpable right DP pulse MS: Right hip: +tenderness,swelling to the region overlying her lateral greater trochanter.? No tenderness to the remainder of the leg.? No ecchymosis, discoloration, crepitus, deformity, instability, warmth.? Active ROM is full with some discomfort .? Strength 5/5 NEURO: Sensory intact throughout and distal to the injury SKIN: intact, warm, dry.? No wound PSYCHIATRIC: normal mood, affect Constitutional Vital Signs, click to edit/add: Last Vital Signs Temp 98.0 F 04/02/25 14:58 Pulse 87 04/02/25 14:58 Resp 18 04/02/25 14:58 BP 161/89 H 04/02/25 14:58 Pulse Ox 97 04/02/25 14:58 O2 Del Method Room Air 04/02/25 14:58 Course Vital Signs Vital signs: Vital Signs Temperature 98.0 F 04/02/25 14:58 Pulse Rate 87 04/02/25 14:58 Respiratory Rate 18 04/02/25 14:58 Blood Pressure 161/89 H 04/02/25 14:58 Pulse Oximetry 97 04/02/25 14:58 Oxygen Delivery Method Room Air 04/02/25 14:58 Temperature 98.0 F 04/02/25 14:58 Pulse Rate 87 04/02/25 14:58 Respiratory Rate 18 04/02/25 14:58 Blood Pressure 161/89 H 04/02/25 14:58 Pulse Oximetry 97 04/02/25 14:58 Oxygen Delivery Method Room Air 04/02/25 14:58 MDM - Fall MDM Narrative Medical decision making narrative: This is a pleasant 79-year-old female who presents to the emergency department for evaluation of right hip injury On arrival, afebrile, vital signs stable. On exam, nontoxic, well appearing patient, in no apparent distress. She has swelling tenderness over the right greater trochanteric. Range of motion full. Neurovascularly intact X-ray imaging right hip, per radiologist reveals no acute findings Favor right hip contusion Fx/Dislocation less likely based on imaging Pain treated with overall improvement during ED course. History and Record Review Discussion with independent historian: OARRS reviewed Right hip: No fracture. Independent interpretation:Chronic changes noted. Re-Evaluation: Patient had improvement with treatment with treatment Disposition ? The patient was discharged. Prescriptions sent to pharmacy:percocet Patient advised rest, ice, elevation, compression Patient advised Ibuprofen/Tylenol as needed for pain Plan: Patient will be discharged to home. Condition at time of disposition: stable, improved. ? Advised to follow up with primary provider. Advised to return for any worsening and/or development of new, concerning signs or symptoms PLEASE NOTE: Portions of the medical record may have been produced using electronic wood milling machine tender and may contain errors with respect to translation of words which may not have been identified prior to finalization of the chart. Imaging Data right hip: Radiologist's impression: ITS Impressions Hip/Pelvis X-Ray 04/02/25 15:23 IMPRESSION: No acute displaced fracture. Impression dictated by: Tom Alvarez M.D. 04/02/2025 4:33 PM Dictation Location: [place] [address] Electronically authenticated by: [id number] Y Date: 04/02/2025 16:33 Discharge Plan Discharge Chief Complaint: Fall Clinical Impression: Acute right hip pain Contusion of right hip Qualifiers: Encounter type: initial encounter Qualified Code(s): S70.01XA - Contusion of right hip, initial encounter Patient Disposition: Home, Self-Care Time of Disposition Decision: 16:44 Condition: Good Mode of Transportation: Private Vehicle Prescriptions / Home Meds: New oxycodone-acetaminophen [Percocet] 5-325 mg tablet 1 tab PO Q8H PRN (Reason: pain) Qty: 10 0RF No Action clopidogrel 75 mg tablet 75 mg PO DAILY Jardiance 10 mg tablet 10 mg PO DAILY metoprolol succinate 25 mg tablet extended release 24 hr 50 mg PO Q12H valsartan 40 mg tablet 20 mg PO DAILY magnesium oxide 400 mg magnesium capsule 400 mg PO BID allopurinol 100 mg tablet 100 mg PO DAILY aspirin 81 mg tablet,delayed release (DR/EC) 81 mg PO BEDTIME rosuvastatin 40 mg tablet 40 mg PO BEDTIME semaglutide 1 mg/dose (2 mg/1.5 mL) pen injector 1 mg subcut QWEEK Rx Instructions: Due Wednesday morning ergocalciferol (vitamin D2) 1,250 mcg (50,000 unit) capsule spironolactone 25 mg tablet 25 mg PO DAILY spironolactone 100 mg tablet 100 mg PO DAILY Print Language: Slovenian Instructions: P.R.I.C.E. Treatment (ED), Hip Contusion (ED) Referrals: Aure Little NP [Primary Care Provider, Family Practice] - 1 week Discharge Date/Time: 04/02/25 17:00
--- NOTE | 2025-04-02 15:23 | XR_ITS ---
The [address] [address] Patient Name: WILBER ELIAS MRN: [id number] date: 1945 Sex: F Assigned Patient Location: ER Current Patient Location: ED.MAIN Accession/Order Number: [id number] Exam Date: 04/02/2025 15:52 Report Date: 04/02/2025 16:33 At the request of: BEN AVALOS MD Procedure: XR hip RT 2V w/ pelvis 2 views right hip a single view pelvis HISTORY: Fell. Right hip pain. Adequate alignment without acute displaced fracture. Mild degeneration. Surgical changes in the groin regions. Atherosclerosis. XR/XR hip RT 2V w/ pelvis IMPRESSION: No acute displaced fracture. Impression dictated by: Tom Alvarez M.D. 04/02/2025 4:33 PM Dictation Location: [place] [address] Electronically authenticated by: [id number] Y Date: 04/02/2025 16:33
[2025-04-02] MEDS: HYDROCODONE/ACET 5-325 MG TABLET 1 TAB PO (15:46)
--- OUTSIDE RECORDS SUMMARY | 2025-04-02 15:51 | XMS_ITS | Continuity of Care Document ---
Author [facility] Address [address] [place] [id number] Problems Unknown Problems Results Test Result Date/Time Value / Unit Interp. Refere nce Range SARS-CoV-2 (COVID-19), RT-PC R/TMA[[id number]] Collected: 02/25/2021 04:35 PM Specimen Received: 02/26/2021 05:36 PM Source: [facility] SARS-CoV-2 INTERPRETATION [[id number]] 02/27/2021 01:03 A M Negative See MypgIYIE-YnK-1 RNA NOT DETECTEDNegative results do not preclude SARS-CoV-2 infection and should notbe used as the sole basis for patient management decisions. Negativeresults must be combined with clinical observations, patient history,and epidemiological information. Optimum specimen types and timingfor peak viral levels during infections caused by SARS-CoV-2 have notbeen determined. Collection of multiple specimens or types ofspecimens may be necessary to detect virus. Improper specimencollectionand handling, sequence variability under primers/probes,or organism present below the limit of detec tion may lead to falsenegative results. Positive and negative predictive values oftesting are highly dependent on prevalence. False negative testresults are more likely when prevalence is high.SOURCE [[id number]]02/27/2021 01:03 AM NASOPHARYNGEALNote: Methodology is Jasmyne Stephanie Real-Time RT-PCR. The expected result or reference range is NEGATIVE (Not Detected). For more information regarding COVID-19 testing to include clinicalinformation, methodology detail, intended use, FDA authorization andrecommended fact sheets for patients or healthcare providers, see NewUnyqe Announcement: SARS-CoV-2 (COVID-19) by NAAT at URL below (note,fact sheets are provided by method given in report:[email or web address] Alternatively, see downloadable PDF fact sheet at:https://www.[email or web address]/[email or web address]-LY-PCR SARS-COV-2 (COVID19), NAAT[81889-7]?Collected: 05/07/2020 04:54 PM?Specimen Received: 05/08/2020 05:01 PM?Source: [facility] - [id number]-4 INTERPRETATION [[id number]] 05/09/2020 02:38 AMNegativeSee FpiyFEAW-RpJ-4 RNA NOT DETECTEDNegative results do not preclude SARS-CoV-2 infection and should notbe used as the sole basis for patient management decisions. Negativeresults must be combined with clinical observations, patient history,and epidemiological information. Optimum specimen types and timingfor peak viral levels during infections caused by SARS-CoV-2 have notbeen determined. Collection of multiple specimens or types ofspecimens may be necessary to detect virus. Improper specimencollectionand handling, sequence variability under primers/probes,or organism present below the limit of detection may lead to falsenegative results. Positive and negative predictive values oftesting are highly dependent on prevalence. False negative testresults are more likely when prevalence is high.SOURCE [[id number]]05/09/2020 02:38 AM NASOPHARYNGEALNote: Methodology is Azimo Real-Time RT-PCR. The expectedresult or reference range is NEGATIVE (Not Detected). For more information regarding COVID-19 testing to include clinicalinformation, m ethodology detail, intended use, FDA authorization andrecommended fact sheets for patients or healthcare providers, see NewTest Announcement: SARS-CoV-2 (COVID-19) by NAAT at URL below (note,fact sheets are provided by method given in report:[email or web address]/ Alternatively, see downloadable PDF fact sheet at:https://wwwPl[employer]/QXWIN-99-JR-HJZBVIS-VTF-7 (COVID19), NAAT[59303- 6]?Collected: 03/19/2020 04:38 PM?Specimen Received: 03/20/2020 06:27 PM?Source: [facility] - [id number]-[id number] INTERPRETATION [[id number]]03/21/2020 01:22 AMNegativeSee Note SARS-CoV-2 RNA NOT DETECTEDNegative results do not preclude SARS-CoV-2 infection and should notbe used as the sole basis for patient management decisions. Negativeresults must be combined with clinical observations, patient history,and epidemiological information. Optimum specimen types and timingfor peak viral levels during infections caused by SARS-CoV-2 have notbeen determined. Collection of multiple specimens or types ofspecimens may be necessary to detect virus. Improper specimencollectionand handling, sequence variability under primers/probes,or organism present below the limit of detection may lead to falsenegative results. Positive and negative predictive values oftesting are highly dependent on prevalence. False negative testresults are more likely when prevalence is high.SOURCE [[id number]]03/21/2020 01:22 AMNASOPHARYNGEALNote: Methodology is Jasmyne Stephanie Real-Time RT-PCR. The expected result or reference range is NEGATIVE (Not Detected). For more information regarding COVID-19 testing to include clinicalinformation, methodology detail, intended use, FDA authorization andrecommended fact sheets for patients or healthcare providers, see NewTest Announcement: SARS-CoV-2 (COVID-19) by NAAT at URL below (note,fact sheets are provided by method given in report:https://[email or web address]/ Alternatively, see downloadable PDF fact sheet at:https://www.[employer]/AQKDV-85-AX-PCR Allergies, adverse reactions, alerts No known allergies and adverse reactions Medications No administered medications reported Vital Signs No vital signs reported Social History No smoking Hx information available
--- OUTSIDE RECORDS SUMMARY | 2025-04-02 15:51 | XMS_ITS | Clinical Summary ---
Author Organization [facility] Address [address], [address] [place] [address] Care Team Providers Care Air And Water Filler Name Role Phone Aure Little APRN, NP Primary Care Provide r Allergies Active AllergyReactionsCriticalityNoted DateCommentsBarium-Containing Compounds IjrvragqccgIvco31/15/2023 IV DYE medicate prior to PxulewxryahApidttkravnGtlq51/15/2023 Medications No known medications Social History Tobacco UseTypesPacks/DayYears UsedDateSmoking Tobacco: NeverPassive Smoke Exposure: NeverSmokeless Tobacco: Never Tobacco Cessation:Counseling Given: Not Answered Alcohol UseStandard Drinks/WeekCommentsNot Currently0 (1 standard drink = 0.6 oz pure alcohol)AUDIT-CAnswerDate RecordedQ1: How often do you have a drink containing alcohol?Never02/24/2023Q2: How many drinks containing alcohol do you have on a typical day when you are drinking?Patient does not drink02/24/2023Q3: How often do you have six or more drinks on one occasion?Never02/24/2023 Interpersonal Safety Domain Source: IP Abuse ScreeningAnswerDate RecordedRead- Only, Retired: Physical WyxtuYrdtns66/15/2023Read-Only, Retired: Verbal Abuse Dqrugp6402/24/2023Read-Only, Retired: Emotional ngiruTunehf44/15/2023Read-Only, Retired: Financial YzjicJbryzv16/15/2023Read-Only, Retired: Sexual abuseDenies 11/15/2023CommentsNoSex and Gender InformationValueDate RecordedSex Assigned at BirthNot on fileLegal JjpLxwzcc62/10/2013 9:06 AM ESTGender Identity Not on fileSexual OrientationNot on file Last Filed Vital Signs Vital SignReadingTime TakenCommentsBlood Yajbpagf112/5902/24/2023 10:30 PM EST Aurda301502/24/2023 10:30 PM FNLXwocclpvdyx22.7 ??C (98.1 ??F)02/24/2023 3:30 PM ESTRespiratory Yzlj765704/26/2022 10:30 PM ESTOxygen Bncwuqtjrb19%02/24/2023 10:30 PM ESTInhaled Oxygen Concentration--Wbffcx25.5 kg (181 lb 14.1 oz)02/24/2023 3:30 PM JWSCodevq613 cm (5' 6.14 )02/24/2023 3:30 PM ESTBody Mass Index29.23 02/24/2023 3:30 PM EST Plan of Treatment Health MaintenanceDue DateLast DoneCommentsDepression Fgfmnu5109/26/1958Hepatitis C mktqvz5709/26/1964DTaP/Tdap/Td vaccine (1 - Tdap)1965DEXA (modify frequency per FRAX score)2001Shingles vaccine (2 of 3)11/21/2014 2014, 03/27/2014Pneumococcal 50+ years Vaccine (2 of 2 - PCV)12/13/2020 12/14/2019, 09/27/2013Respiratory Syncytial Virus (RSV) or age 60 yrs+ (1 - 1-dose 75+ series)2Annual Wellness Visit (Medicare)03/08/2023Flu vaccine (#1), 02/27/2022, 02/17/2021, Additional history existsCOVID-19 Vaccine ( season), 03/26/2022, 08/21/2021, Additional history existsHepatitis A vaccineAged OutNo longer eligible based on patient's age to complete this topicHepatitis B vaccineAged OutNo longer eligible based on patient's age to complete this topicHib vaccine Aged OutNo longer eligible based on patient's age to complete this topic Meningococcal (ACWY) vaccineAged OutNo longer eligible based on patient's age to complete this topicMeningococcal B vaccineAged OutNo longer eligible based on patient's age to complete this topicPolio vaccineAged OutNo longer eligible based on patient's age to complete this topic Insurance Care Teams Team MemberRelationshipSpecialtyStart DateEnd Date Aure Little, WOOD BLOCK ARTIST - FRONT END LOADER DRIVER [address] [place] [id number] PCP - GeneralNurse Druicghuxbpq50/15/23
--- OUTSIDE RECORDS SUMMARY | 2025-04-02 15:51 | XMS_ITS | Encounter Summary ---
Author Organization [facility] Address [address] [place] [address] Care Team Providers Care Hatchery Laborer Name Role Phone ToyaAure minor Joann BURCIAGA Primary Care Provider [phone] Source Comments In the event this information is protected by the Federal Confidentiality of Alcohol and Drug AbusePatient Records regulations: The Federal rules restrict any use of the information to criminally investigate or prosecute any alcohol or drug abuse patient.[facility] Encounter Details DateTypeDepartmentCare Team (Latest Contact Info)Tzlstwlgltq00/18/2025Telephone Endocrinology [address] [place] [address] Marce Gonzales APRN.CHAIR UPHOLSTERER [address] [place], [place] [id number] Social History Tobacco UseTypesPacks/DayYears UsedDateSmoking Tobacco: FormerSmokeless Tobacco: Never Comments:Social for approx 1 year around age 36 Alcohol UseStandard Drinks/WeekCommentsNot Currently0 (1 standard drink = 0.6 oz pure alcohol)Overall Financial Resource Strain (CARDIA)AnswerDate RecordedHow hard is it for you to pay for the very basics like food, housing, medical care, and heating?Not hard at all02/17/2023HQ-2AnswerDate RecordedPHQ-2 score0 08/02/2023Hunger Vital SignAnswerDate RecordedWithin the past 12 months, you worried that your food would run out before you got the money to buymore.Never true02/17/2023Within the past 12 months, the food you bought just didn't last and you didn't have money to get more.Never true02/17/2023RAPARE - TransportationAnswerDate RecordedIn the past 12 months, has lack of transportation kept you from medical appointments or from getting medications?No 02/17/2023In the past 12 months, has lack of transportation kept you from meetings, work, or from getting things needed for daily living?No02/17/2023 Housing Stability Vital SignAnswerDate RecordedIn the last 12 months, was there a time when you were not able to pay the mortgage or rent on time?No02/17/2023In the last 12 months, how many places have you lived?In the last 12 months, was there a time when you did not have a steady place to sleep or slept in ashelter (including now)?No02/17/2023rea Deprivation IndexAnswerDate RecordedNational Score (1-100), lower number is lower sawd600011/04/2022State Score (1-10), lower number is lower dflg5643Data from: https://www.neighborhoodatlas.medicine.[facility].edu/. Last address used for tkndzvebjsu[address] [facility]11/04/2022CommentsNoSex and Gender Information ValueDate RecordedSex Assigned at FwqhqEevbow83/27/2020 10:54 PM ESTLegal Sex Miehwi6303/13/2012 8:51 AM ESTGender ZvguwrlrRsbwqs44/27/2020 10:54 PM ESTSexual UopygkjjiqwRobitnhx74/27/2020 10:54 PM ESTdocumented as of this encounter Functional Status * Are you deaf or do you have serious difficulty hearing?AnswerDate of KfauuzsdykOouxrfMn98/21/2024 10:51 AM Anay Travis RN * Are you blind or do you have serious difficulty seeing, even when wearing glasses?AnswerDate of ExbozoyzjhMvaeioBu77/21/2024 10:51 AM Anay Travis RN * Do you have serious difficulty walking or climbing stairs?AnswerDate of WxhcsxakuaJjeeafUi58/21/2024 10:51 AM Anay Travis RN * Do you have difficulty dressing or bathing?AnswerDate of AssessmentAuthorNo 07/01/2023 10:51 AM Anay Travis RN * Because of a physical, mental, or emotional condition, do you have difficulty doing errands alone such as visiting a doctor's office or shopping?AnswerDate of VbaegsaiosWlbnlzVh55/21/2024 10:51 AM Anay Travis RN documented as of this encounter Mental Status * Because of a physical, mental, or emotional condition, do you have serious difficulty concentrating, remembering, or making decisions?AnswerEntry Date XnhuleBa78/21/2024 10:51 AM Anay Travis RN documented in this encounter Miscellaneous Notes * Telephone Encounter - Marce Gonzales APRN.CNP - 03/29/2025 8:11 AM EST Orders signed via [facility]. Marce Gonzales APRN.CHAIR UPHOLSTERER * Telephone Encounter - Dorina Vazquez MA - 03/29/2025 7:21 AM EST Initiated cove order to [facility] for CGM. Sent to Marce Gonzales for completion. documented in this encounter Plan of Treatment DateTypeDepartmentCare Team (Latest Contact Info)Srzxotkvmyn87/06/2026 2:00 PM ESTOffice Visit Neurology [address] [place], [place] [id number] [facility]05/07/2025 11:20 AM ESTOffice Visit Cardiology [address] [place] [address] Peggy Kwan [facility] [address] [place] [address] Echo05/16/2025 2:30 PM ESTOffice Visit Cardiology [address] [place] [address] Chalo Lees DO [address] [place] [address] Return in about 6 months (around 05/21/2025).08/20/2025 1:20 PM EDTOffice Visit Endocrinology [address] [facility] [place] [address] Marce Gonzales APRN.CHAIR UPHOLSTERER [address] [place] [address] follow up11/07/2025 2:00 PM EDTOffice Visit Cardiology [address] [facility] [address] [place] [id number] [place]ón [place] [address] [place], [place] [phone] 9 months follow updocumented as of this encounter Goals GoalPatient Goal TypeAssociated ProblemsRecent ProgressPatient-Stated?Author Blood Pressure < 130/80 Blood Qhmzpplx627/80(02/28/2025 12:46 PM EST)Afshan Beth MD documented as of this encounter Visit Diagnoses Not on filedocumented in this encounter Care Teams Team MemberRelationshipSpecialtyStart DateEnd Date Aure Little, CHAIR UPHOLSTERER [address] [place] [address] PCP - GeneralFamily Medicine01/08/20documented as of this encounter
--- OUTSIDE RECORDS SUMMARY | 2025-04-02 15:51 | XMS_ITS | Clinical Summary ---
Author Organization [facility] Address [address] [place] [address] Care Team Providers Care Steward/Stewardess Bath Name Role Phone Arturo Craft MD Primary Care Provider [phone] Aure Little NP Unavailable [phone] Allergies Active AllergyReactionsCriticalityNoted DateCommentsBarium-Containing Compounds XoatkmdhhwqVcdl21/15/2023 IV DYE medicate prior to Iodinated Contrast Media04/02/20235216XfjetTpfjxmf43/08/7281Egpygokgtrw84/22/2023 Medications MedicationSigDispense QuantityRefillsLast FilledStart DateEnd DateStatus fluticasone (Flonase) 50 MCG/ACT nasal spray Administer 2 sprays into each nostril in the morning. Shake gently. Before first use, prime pump. After use, clean tip and replace cap..Active aspirin 81 MG EC tablet Take 81 mg by mouth in the morning.Active Semaglutide,0.25 or 0.5MG/DOS, (Ozempic, 0.25 or 0.5 MG/DOSE,) 2 MG/3ML solution pen-injector Inject under the skin 1 (one) time per weekActive clopidogrel (Plavix) 75 MG tablet Take 75 mg by mouth in the morning.Active valsartan (Diovan) 40 MG tablet Take 20 mg by mouth DailyActive rosuvastatin (Crestor) 40 MG tablet Indications:Atherosclerotic Disease,Hyperlipidemia,Mixed Hyperlipidemia, Peripheral Arterial DiseaseTake 40 mg by mouth in the morning.Active empagliflozin (Jardiance) 10 MG Take by mouthActive magnesium oxide (Mag-Ox) 400 (240 Mg) MG tablet Take 400 mg by mouth Daily5Active metoprolol succinate XL (Toprol-XL) 50 MG 24 hr tablet Take 50 mg by mouth in the morning and 50 mg before bedtime.5Active ergocalciferol (Vitamin D2) 1.25 MG (69156 UT) capsule Take 1 capsule by mouth 1 (one) time per weekActive Ozempic, 2 MG/DOSE, 8 MG/3ML solution pen-injector Inject 2 mg as directed every 7 (seven) days5Active spironolactone (Aldactone) 100 MG tablet Take 125 mg by mouth DailyActive spironolactone (Aldactone) 25 MG tablet Take 12.5 mg by mouth Daily5Active Active Problems ProblemNoted DateDiagnosed DateRenal cyst08/26/2024Type 2 diabetes mellitus with diabetic chronic kidney irddpbh3508/22/2024 Assessment & Plan (08/22/2024 6:02 AM EDT): Control HTN and DM Avoid nephrotoxic meds if possible Chronic kidney disease, stage 3a08/22/2024 Assessment & Plan (10/05/2024 10:56 AM EDT): Continue with nephrology Assessment & Plan (08/22/2024 6:02 AM EDT): Stable at this time Type 2 diabetes mellitus with diabetic peripheral angiopathy without gangrene 08/22/2024 Assessment & Plan (08/22/2024 5:59 AM EDT): Control DM Encounter for screening mammogram for malignant neoplasm of kkqwtd4608/22/2024 Acute left-sided low back pain without /13/2025 Assessment & Plan (08/22/2024 9:53 AM EDT): Steroids are helping Will see where her sxs are at towards weeks end Other cirrhosis of liver08/18/2024 Assessment & Plan (10/05/2024 10:55 AM EDT): Appt with GI next week Is virtual Assessment & Plan (08/22/2024 9:51 AM EDT): Discovered on recent CT scan in ER visit at [facility] Ordered US liver, this was to be completed on 08/22/24, will await results, done at 7am this morning Is on aldactone, and recent cardiology adds lasix Acute left-sided thoracic back pain08/18/2024 Assessment & Plan (10/05/2024 10:56 AM EDT): improved Tendinitis of left rotator cuff02/10/2024resence of heart assist device 01/03/20242465Izxghpbhonyxyo25/22/2024 Assessment & Plan (10/05/2024 11:24 AM EDT): Will trial atb trial for diverticulitis Fu if not better Assessment & Plan (11/01/2023 6:09 PM EDT): Finish atb, fluids, rest Fu if not better Left shoulder pain10/18/2023 Assessment & Plan (11/01/2023 6:10 PM EDT): Still waiting for the MRI Assessment & Plan (10/18/2023 10:35 AM EDT): Suspect rotator cuff pathology, noted after getting her pacemaker /ICD placed Limited ROM, and painful ROM Will order plain film xray, and also obtain MRI Will likely need ortho pending the MRI results LV smcuiejjfll96/21/2024KI (acute kidney injury)06/15/2023ortic qfaqoyqdbqyfjcb52/26/2747Ylfoyerbmiqkhz29/26/2024Urinary rgwhdbqxpdit69/26/2024 Edema of ymrralpcnom13/26/2024llergic sraccmfv91/26/2024 Assessment & Plan (08/02/2024 12:56 PM EDT): Could also have overlap with this as well Dry eyes06/07/2023Environmental and seasonal gfqebmcue17/26/2024Fatigue 06/07/20232837Nbhsbcfecdmrpu10/26/2024Lumbar back pain with radiculopathy affecting lower ynkowgnan70/26/2024Saccular aneurysm ([facility])06/07/2023LBBB (left bundle branch block)05/31/2023cute on chronic systolic congestive heart failure 05/31/2023hronic systolic congestive heart cuzaixh8505/31/2023 Assessment & Plan (08/22/2024 9:51 AM EDT): Current meds: asa, plavix, jardiance, b genia, ozempic, diovan, aldactone Follows with cardiology through [facility] Also pacemaker/defibrillator present Cardiology recently added back lasix Elevated blood uric acid level04/08/2023Type 2 diabetes mellitus without complication, with long-term current use of fkatcoj7004/06/2023 Assessment & Plan (10/18/2023 10:30 AM EDT): Is no longer taking insulin, is doing great with blood glucose and weight mgmt Is not longer under my care diabetes and is seeing fisher 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 Assessment & Plan (04/06/2023 9:41 AM EST): Is down to 22 units for insulin, at currently at 1.5mg ozempic Sugars are running 90-100 Primary osteoarthritis of right hip04/06/2023Thyroid wyestv4504/06/2023eneralized anxiety disorder with panic qvhbvqq4703/24/2023 Assessment & Plan (10/18/2023 10:33 AM EDT): No longer taking her SSRI she is doing well Assessment & Plan (04/06/2023 9:42 AM EST): Has not needed any valium in some time She is happy with the sertraline at 25mg dose, does note some diarrhea with this Fu in 8 weeks otherwise is doing much better Assessment & Plan (03/24/2023 6:01 PM EST): Spoke with pt on the phone this evening, significant panic attacks and crying. She spoke w cardiology they felt she would benefit from having a daily medication . She is not SI/HI/Hallucinations We will start sertraline as well as some prn valium OARRS reviewed .Take medication only as directed. This medication will take approximately 4-6 weeks to become effective. If any suicidal thoughts, thoughts of hurting others, or hallucinations contact the office orproceed to the Emergency Room for mental health evaluation. Medication may cause dry mouth, dizziness, and in some cases worsening in depression symptoms. Please contact the office if these occur. I anniak ill follow her up in 1-2 weeks in office Spinal stenosis of lumbar region with neurogenic hkwvugonhvue47/17/2022 Overview (04/06/2023): Added automatically from request for surgery [id number] Primary osteoarthritis of both hips06/13/2020 Overview (04/06/2023): Added automatically from request for surgery [id number] Cardiomyopathy, unspecified type01/02/2020Aortoiliac occlusive dyvjvzy9701/02/2020 Overview (06/07/2023): S/p right axillo-femoral bypass graft on 01/01 Plan: Started ASA on POD 1 at 325mg Daily per Vascular surgeon Peripheral vascular disease, wnmevfpkbgk45/22/2020 Assessment & Plan (10/18/2023 10:28 AM EDT): Continues to see vascular/cardiology Coronary artery disease involving [place] coronary artery of [place] heart without angina escmikvn42/27/2020 Assessment & Plan (08/22/2024 5:58 AM EDT): Current meds: asa, plavix, b genia, arb, statin Recommend adequate control of DM, and HTN, and CHF Assessment & Plan (10/18/2023 10:29 AM EDT): Continue with statin, meds Fu with cardiology Intermittent claudication of both lower extremities due to atherosclerosis 01/27/2019Bruit of left carotid mecqwd1112/22/2018Nonsustained ventricular yojpuwrdjfg99/12/2019 Assessment & Plan (08/22/2024 5:59 AM EDT): Continue current meds, also has pacemaker/defibrillator Follow with cardiology as directed Heart failure with reduced ejection tjiostun86/12/2019 Overview (04/06/2023): Echo 11/15/2019: The left ventricle is normal in size. There is mild concentric left ventricular hypertrophy. Left ventricular systolic function is normal. EF = 54 ?? 5% Home Medication Regimen: Coreg 25mg BID, lisinopril 40mg daily Plan: Lasix started by Cardiology Hold lisinopril due to recent hypotension Coreg restarted by cardiology Discontinue aldactone per cardiology Assessment & Plan (08/02/2024 12:58 PM EDT): Reviewed and updated med list Cont w cardiology Assessment & Plan (04/06/2023 9:43 AM EST): Continue with cardiology has phone appt to[facility] Weight is going down, no dizziness, no LE edema Mixed mifvdhzctwntnr70/09/2019 Overview (04/06/2023): Home medication: Atorvastatin 80mg daily Plan: Continue atorvastatin Idaqpsawadsv76/09/2019Diabetic peripheral neuropathy associated with type 2 diabetes tvjbadwn16/21/2018 Assessment & Plan (08/22/2024 5:56 AM EDT): Control DM Freq foot checks, proper fitting shoes Diverticular disease of colon11/30/2017Gout11/30/2017Herniated lumbar intervertebral disc11/30/2017Primary jkprixkbztza04/21/2018 Overview (04/06/2023): Home Medication Regimen: Coreg 25mg BID, lisinopril 40mg daily Plan: Hold lisinopril due to recent hypotension Coreg restarted by cardiology Assessment & Plan (08/22/2024 9:54 AM EDT): Please check blood pressure daily and record DASH diet Limit caffeine Take medication as directed Contact office if chest pain, pressure, dizziness, shortness of breath, swelling legs Recommend slow position changes Current meds: arb, b genia, diuretic, Elevated today, however ?d/t fluid overload? Pain? Continue home reads no other changes at this time Assessment & Plan (08/02/2024 12:57 PM EDT): Please check blood pressure daily and record DASH diet Limit caffeine Take medication as directed Contact office if chest pain, pressure, dizziness, shortness of breath, swelling legs Recommend slow position changes Current meds: arb, b genia, diuretic, Assessment & Plan (10/18/2023 10:28 AM EDT): Stable at this time on current meds No changes Chronic right shoulder pain06/01/2017 Overview (04/06/2023): Added automatically from request for surgery [id number] Disorder of nqfzvq6708/17/2016Lumbar awvmhavjfmi18/08/2017Lumbar radiculopathy 08/17/2016Chronic pain of right ankle09/19/2015Posterior tibial tendonitis 09/19/2015 Resolved Problems ProblemNoted DateDiagnosed DateResolved DateType 2 diabetes mellitus with diabetic bthognewrikwmr73/13/202505/URI, acute Assessment & Plan (08/02/2024 12:55 PM EDT): No resp distress, and does not appear heart failure related Will order doxy bid for 10 days Continue with OTC meds, if not better in next 5-7 days call office Also add steven downey as well Chronic kidney disease, stage 3b/ Assessment & Plan (10/18/2023 10:41 AM EDT): Continue with nephrology Aggressive diabetes and HTN mgmt CAD (coronary artery disease)/anic wwvfniq0006/07/2023 10/18/2023Systolic heart hbmboyt12/12/525021/13/2025Class 1 obesity due to excess calories with serious comorbidity and body mass index (BMI) of 32.0 to 32.9 in adult Assessment & Plan (04/06/2023 9:41 AM EST): Weight is continuing to trend down and she is working on her diet Peripheral arterial occlusive xhvsrvo96Diabetes mellitus Overview (04/06/2023): Home Medication: Levemir 35units daily, metformin 1000mg BID Plan: Levemir 35units daily Restart metformin on discharge Immunizations ImmunizationAdministration DatesNext DueInfluenza, High Dose Seasonal, Preservative Free02/24/2024,02/12/2018,02/01/2015Influenza, High-dose Seasonal, Quadrivalent, Preservative Free01/21/2023,02/27/2022,02/17/2021,12/14/2019 Influenza, seasonal, syuryubgze28/16/2014,01/25/2013Influenza, trivalent, fwgeneyary41/02/2019,02/26/2017Pneumococcal Polysaccharide COQA2278, 09/27/20138810BTMV-QNZ-8 (COVID-19) vaccine, mRNA, spike protein, LNP, PF, 50 mcg/0.5 mL02/24/2024Zoster, live2014,03/27/2014 Family History Medical HistoryRelationNameCommentsCancerFatherDiabetesFatherLung diseaseFather Heart diseaseMotherHypertensionMotherStrokeMotherCOPDSiblingDiabetesSiblingHeart diseaseSiblingHypertensionSiblingRelationNameStatusCommentsFatherDeceasedMother DeceasedSiblingDeceased Social History Tobacco UseTypesPacks/DayYears UsedDateSmoking Tobacco: FormerCigarettes Tobacco Cessation:Counseling Given: No Comments:Last smoked: >10 years Alcohol UseStandard Drinks/WeekCommentsYes0 (1 standard drink = 0.6 oz pure alcohol)1-2 drinks monthly or less, caffeine 1-2 cups per dayPHQ-2AnswerDate RecordedPatient Health Questionnaire-2 Ytdvd9254CommentsUnknown Sex and Gender InformationValueDate RecordedSex Assigned at BirthNot on file Legal XayNguhsj86/15/2023 6:34 PM EDTGender IdentityNot on fileSexual OrientationNot on file Last Filed Vital Signs Vital SignReadingTime TakenCommentsBlood Tlkptvjn158/8210/05/2024 9:58 AM EDT Qlhdc118910/05/2024 9:58 AM YXCZtsrhgahuco23.7 ??C (98.1 ??F)10/05/2024 9:58 AM EDTRespiratory Xbwl661810/05/2024 9:58 AM EDTOxygen Mkylhzvrdk44%10/05/2024 9:58 AM EDTInhaled Oxygen Concentration--Ssvfug54.1 kg (163 lb 6.4 oz)10/05/2024 9:58 AM MAGNvhsuy101.6 cm (5' 6 )02/16/2024 10:24 AM ESTBody Mass Index26.37 02/16/2024 10:24 AM EST Plan of Treatment Health MaintenanceDue DateLast DoneCommentsCT Ddsgdkqzluvv84/17/1947FIT-DNA 1945FIT1945FOBT1945 2780Nbrzqgsinccdz54/17/1947Pneumococcal Vaccine: 65+ Years (2 of 2 - PCV)/06/2019, 12/14/2019, 09/27/2013 COVID-19 Vaccine ( season)/, 01/21/2023, 03/26/2022, Additional history existsInfluenza Vaccine (#1)/, 01/21/2023, 02/27/2022, Additional history kacogkLaslebcsi95/10/202607/01/2025, 10/18/2024, 06/14/2023, Additional history soocqqYxhexkwjndf97/26/2034 12/06/2023, 12/06/2023olorectal Cancer Gywtjfguu40/26/2034 Procedures Procedure NamePriorityDate/TimeAssociated DiagnosisCommentsBI MAMMOGRAM SCREENING TOMOSYNTHESIS ZGEELHHUP70/10/2025 1:43 PM EDT from Last 3 Months or Most Recently Relevant to Health Maintenance Results * Bilateral screening mammogram with tomosynthesis (10/19/2024 1:43 PM EDT) Anatomical RegionLateralityModalityBreastBilateralMammographySpecimen (Source) Anatomical Location / LateralityCollection Method / VolumeCollection Time Received Time10/19/2024 1:43 PM EDT Narrative 10/19/2024 1:42 PM EDT THIS EXAM WAS PERFORMED AT [facility] ??1945 [id number] EXAM: MAMM SCREENING BILATERAL W CAD, 10/18/2024 2:34 PM CLINICAL INDICATIONS: Screening, Visit for screening mammogram COMPARISON: 08/09/2018 through 06/14/2023 TECHNIQUE: Bilateral digital tomosynthesis MLO and CC views of the breasts were obtained, with creation of synthetic 2D views. Computer aided detection was utilized. FINDINGS: The breasts are heterogeneously dense, which may obscure small masses. There are no suspicious masses, calcifications, or areas of architectural distortion. Heavy arterial calcification is demonstrated. Defibrillator battery pack overlapping left axilla. IMPRESSION: No mammographic evidence of malignancy. BI-RADS: BI-RADS 2 - Benign RECOMMENDATION: ??Follow up per ACR recommendations or as clinically indicated.. RISK ASSESSMENT: TC Lifetime risk: 1.84%. The patient's reported personal and family medical history was used calculate their Tyrer-Cuzick lifetime risk of malignancy. Scores less than 20% are not considered high risk per ACR guidelines and patient should continue with the above recommendation. Finalized by Tito Valera MD on 10/19/2024 1:42 PM 2 c FU ACR FDA Accredited Performing Facility: [facility] - Mammography/DEXA Imaging [address] [facility] [address] Procedure Note Radiology, Radiologist, - 10/19/2024 [facility] 1945 [id number] EXAM: MAMM SCREENING BILATERAL W CAD, 10/18/2024 2:34 PM CLINICAL INDICATIONS: Screening, Visit for screening mammogram COMPARISON: 08/09/2018 through 06/14/2023 TECHNIQUE: Bilateral digital tomosynthesis MLO and CC views of the breastswere obtained, with creation of synthetic 2D views. Computer aideddetection was utilized. FINDINGS: The breasts are heterogeneously dense, which may obscure small masses. There are no suspicious masses, calcifications, or areas of architectural distortion. Heavy arterial calcification is demonstrated. Defibrillatorbattery pack overlapping left axilla. IMPRESSION: No mammographic evidence of malignancy. BI-RADS: BI-RADS 2 - Benign RECOMMENDATION: Follow up per ACR recommendations or as clinicallyindicated.. RISK ASSESSMENT: TC Lifetime risk: 1.84%. The patient's reported personal and family medical history was usedcalculate their Tyrer-Cuzick lifetime risk of malignancy. Scores less than20% are not considered high risk per ACR guidelines and patient shouldcontinue with the above recommendation. Finalized by Tito Valera MD on 10/19/2024 1:42 PM 2 c FU ACR FDA Accredited Performing Facility: [facility] - Mammography/DEXA Imaging [address] [address] Authorizing ProviderResult TypeResult StatusLisa Aichhol NPIMG BI PROCEDURES Final Result from Last 3 Months or Most Recently Relevant to Health Maintenance Insurance Care Teams Team MemberRelationshipSpecialtyStart DateEnd Date Arturo Craft MD PCP - GeneralFamily Medicine11/13/22 Aure Little NP Nurse PractitionerFamily Medicine11/13/22
--- OUTSIDE RECORDS SUMMARY | 2025-04-02 15:51 | XMS_ITS | Clinical Summary ---
Author Organization [facility] Address [address] [place], [place] [address] Care Team Providers Care Pre Sales Network Engineer Name Role Phone ToyaAure minor Joann BURCIAGA Primary Care Provider Allergies Active AllergyReactionsCriticalityNoted DateCommentsIodinated Contrast Media Other: See BweyzmtnBqgabo72/12/2019 Throat itching to some Xray dye >20-30 years ago PenicillinsAnaphylaxis,UeghuMkii59/20/2015 Medications MedicationSigDispense QuantityRefillsLast FilledStart DateEnd DateStatus allopurinol (ZYLOPRIM) 100 mg tablet Take 100 mg by mouth once daily.09/27/2017Active fluticasone (FLONASE) 50 mcg/actuation nasal spray fluticasone propionate 50 mcg/actuation nasal spray,suspensionActive aspirin, enteric coated (ASPIRIN, ENTERIC COATED) 81 mg EC tablet Take 81 mg by mouth once daily.Active Blood-Glucose Sensor (FREESTYLE RU 3 SENSOR) mauricio Use new sensor every 14 days to monitor blood glucose. 6 Each 3Active semaglutide (OZEMPIC) 2 mg/dose (8 mg/3 mL) pen injector Inject 2 mg subcutaneously one time a week. 3 mL 5Active vitamin D3-vitamin K2, MK4, 1,000-100 unit-mcg tab Take 1 tablet by mouth once daily. 90 tablet 5Active Additional Information Patient not taking.Reported on 02/28/2025 magnesium oxide (MAG-OX) 400 mg (241.3 mg magnesium) tablet Indications:HypomagnesemiaTAKE 1 TABLET BY MOUTH TWICE DAILY. TAKE SEPERATELY FROM DOXYCYCLINE 180 tablet 5Active clopidogrel (PLAVIX) 75 mg tablet Indications:S/P angioplasty with stentTake 1 tablet by mouth every 24 hours. 90 tablet /[id number] metoprolol succinate ER (TOPROL XL) 50 mg 24 hr tablet Take 1 tablet by mouth two times a day. 180 tablet 5Active valsartan (DIOVAN) 40 mg tablet Indications:Coronary artery disease involving ugashik coronary artery of ugashik heart without angina pectoris,Essential hypertensionTake 1 tablet by mouth once daily. 90 tablet 6Active spironolactone (ALDACTONE) 25 mg tablet Indications:HFrEF (heart failure with reduced ejection fraction) (HCC),Essential hypertensionTake 0.5 tablets by mouth once daily. 90 tablet 5Active rosuvastatin (CRESTOR) 40 mg tablet Indications:Mixed hyperlipidemia,Coronary artery disease involving ugashik coronary artery of ugashik heart without angina pectorisTake 1 tablet by mouth daily at bedtime. 90 tablet 5Active empagliflozin (JARDIANCE) 10 mg tablet Take 1 tablet by mouth daily with breakfast. 90 tablet ctive Active Problems ProblemNoted DateDiagnosed DateEssential zsmdqntpdyje37/28/2025Stage 3 chronic kidney qaaoqqo0402/06/2025Presence of heart assist pznjwz2301/03/2024ulmonary HTN 12/28/2023Nonrheumatic mitral valve wteywicquvusl41/17/2024LV dysfunction 07/01/2023KI (acute kidney injury)06/15/2023hronic systolic congestive heart tmsblsa6005/31/2023LBBB (left bundle branch block)05/31/2023Status post angioplasty with stent02/17/2023cute heart failure with reduced ejection fraction and diastolic tflzvzvviio89/07/2023ortoiliac occlusive disease 01/02/2020 Overview (01/03/2020): S/p right axillo-femoral bypass graft on 01/01 Plan: Started ASA on POD 1 at 325mg Daily per Vascular surgeon Coronary artery disease involving ugashik coronary artery of ugashik heart without angina ykprvuyp24/27/4509Eglfsavibsyrdz48/26/2020Preoperative oneidni1106/07/2019 Intermittent claudication of both lower extremities due to atherosclerosis 01/27/2019Diabetes vukqgskj66/16/2019 Overview (01/08/2020): Home Medication: Levemir 35units daily, metformin 1000mg BID Plan: Levemir 35units daily Restart metformin on discharge HFrEF (heart failure with reduced ejection fraction)12/22/2018 Overview (01/08/2020): Echo 11/15/2019: The left ventricle is normal in size. There is mild concentric left ventricular hypertrophy. Left ventricular systolic function is normal. EF = 54 ?? 5% Home Medication Regimen: Coreg 25mg BID, lisinopril 40mg daily Plan: Lasix started by Cardiology Hold lisinopril due to recent hypotension Coreg restarted by cardiology Discontinue aldactone per cardiology Nonsustained ventricular tukvuxxstxa95/12/2019Bruit of left carotid artery 12/22/20188149Ihhgnfrxrscz72/09/2019Primary sosrsbpknhvv56/09/2019 Overview (01/08/2020): Home Medication Regimen: Coreg 25mg BID, lisinopril 40mg daily Plan: Hold lisinopril due to recent hypotension Coreg restarted by cardiology Mixed krxhasltlkbydk52/09/2019 Overview (01/08/2020): Home medication: Atorvastatin 80mg daily Plan: Continue atorvastatin Class 1 obesity due to excess calories with serious comorbidity and body mass index (BMI) of 32.0 to 32.9 in adult11/18/2018Posterior tibial tendonitis 09/19/2015Chronic pain of right ankle09/19/2015 Encounters DateTypeDepartmentCare NoqrVhemuhtrfix28/18/2025Telephone Endocrinology [address] [place] [address] Marce Gonzales APRN.DIRECTOR CLINICAL INFORMATION SERVICES 03/13/2025Interfaced Data Associate Spa Director Management [address] [place] [address] Kartik Posada MD 03/09/2025 Get Medical Advice Cardiology [address] [place] [address] [place] [address] Fanny De León MD spironolactone 25mg tablets 1/2 once daily03/01/2025Interfaced Data Associate Spa Director Management [address] [place] [address] Kartik Posada MD 02/28/2025 12:50 PM ESTOffice Visit Endocrinology [address] [place] [address] Marce Gonzales, RESEARCH SPEC.DIRECTOR CLINICAL INFORMATION SERVICES Hyperlipidemia associated with type 2 diabetes mellitus (HCC) (Primary Dx); Type 2 diabetes mellitus with other circulatory complication, without long-term current use of insulin (HCC); Mixed hyperlipidemia; Coronary artery disease involving ugashik coronary artery of ugashik heart without angina pectoris; Obstructive sleep apnea02/28/20253953Qvlfty78/17/2025Orders Only Pseudo [place] [address] Afshan Redman MD 02/20/2025Refill Cardiology [address] [address] [place] [address] Fanny De León MD Refill Pynshog8502/15/2025Results Follow-Up Cardiology [address] [facility] [address] [place] [address] Fanny De León MD 02/07/2025Refill Cardiology [address] [place] [address] Norma Ross, RESEARCH SPEC.DIRECTOR CLINICAL INFORMATION SERVICES Refill Vfbyoyd2102/07/2025Refill Cardiology [address] [place] [address] Chalo Lees DO Refill Jwplkec7402/06/2025 2:00 PM EDTOffice Visit Cardiology [address] [place] [address] Fanny De León MD Chronic systolic congestive heart failure (HCC) (Primary Dx); Coronary artery disease involving ugashik coronary artery of ugashik heart without angina pectoris; Essential hypertension; Pulmonary HTN (HCC); Stage 3 chronic kidney disease, unspecified whether stage 3a or 3b CKD (HCC); LBBB (left bundle branch block)02/05/20254082Joqmxg36/14/2025 Patient Msg Neurology [address] [place] [address] Provider, Ccf Please Confirm Your Sleep Study for 01/29, Thank You!01/22/2025 Patient Msg Neurology [address] [place] [address] Provider, Ccf Please Confirm Your Sleep Study for 01/29, Thank You!from Last 3 Months Immunizations ImmunizationAdministration DatesNext Dueinfluenza (IIV4) vaccine, age 6 mo - 64 yr, quadrivalent (AFLURIA, FLULAVAL, FLUZONE)02/26/2017 Family History Medical HistoryRelationCommentsCOPDBrotherDiabetesFatherLung CancerFathercabg MotherpacemakerMotherRelationStatusCommentsBrotherDeceasedFatherDeceasedMaternal GrandfatherDeceasedMaternal GrandmotherDeceasedMotherDeceasedPaternal GrandfatherDeceasedPaternal GrandmotherDeceased Social History Tobacco UseTypesPacks/DayYears UsedDateSmoking Tobacco: FormerSmokeless Tobacco: Never Tobacco Cessation:Counseling Given: Not Answered Comments:Social for approx 1 year around age [...] RecordedNational Score (1-100), lower number is lower wqkm626611/04/2022State Score (1-10), lower number is lower saqh0733Data from: https://www.neighborhoodatlas.medicine.[facility].edu/. Last address used for llqjxgdgu[address] [facility]11/04/2022CommentsNoSex and Gender Information ValueDate RecordedSex Assigned at VnvztKckizu11/27/2020 10:54 PM ESTLegal Sex Fepoph9403/13/2012 8:51 AM ESTGender QtjknetoMlfqif83/27/2020 10:54 PM ESTSexual RijzuhmbnpoYpxfvdrj72/27/2020 10:54 PM EST Last Filed Vital Signs Vital SignReadingTime TakenCommentsBlood Lutkhdun182/80104/30/2024 12:46 PM EST Jgmxb452202/28/2025 12:46 PM VXCYjsvrdlluss71.8 ??C (98.2 ??F)07/01/2023 8:24 AM EDTRespiratory Ivuy880007/01/2023 8:24 AM EDTOxygen Yvxzcftwnh85%02/06/2025 1:49 PM EDTRAInhaled Oxygen Concentration--Tskqbo68 kg (158 lb 11.7 oz)02/28/2025 12:46 PM NYBYthzra468.6 cm (5' 6 )10/11/2023 2:15 PM EDTBody Mass Index25.62 10/11/2023 2:15 PM EDT Plan of Treatment DateTypeDepartmentCare Team (Latest Contact Info)Kajphjmuukh18/06/2026 2:00 PM ESTOffice Visit Neurology [facility] [place] [address] [facility]05/07/2025 11:20 AM ESTOffice Visit Cardiology [address] [place] [address] Peggy Kwan [facility] [address] [place] [address] Echo05/16/2025 2:30 PM ESTOffice Visit Cardiology [address] [place] [address] Chalo Lees DO [address] [facility] [place] [address] Return in about 6 months (around 05/21/2025).08/20/2025 1:20 PM EDTOffice Visit Endocrinology [address] [facility] [place] [address] Marce Gonzales APRN.DIRECTOR CLINICAL INFORMATION SERVICES [address] [place] [address] follow up11/07/2025 2:00 PM EDTOffice Visit Cardiology [address] [facility] [address] [place] [phone] [place] [address] [place] [address] [place], [place] [id number] 9 months follow upHealth MaintenanceDue DateLast DoneCommentsAnnual PCP Team Chronic Disease Visit1964Anxiety Nltqiript45/17/1965Depression Screening 1964Hepatitis C Qcuozjcmp72/17/1965DTaP,Tdap,Td Vaccine (1 - Tdap) 1965Medicare Annual Wellness Visit09/11/2011one Density Screening 09/27/2011Shingrix Vaccine (2 of 3), 03/27/2014Pneumococcal Vaccine: 50+ (2 of 2 - PCV), 09/27/2013RSV Vaccine (1 - 1- dose 75+ series)2Dilated Retinal Exam3Advance Directive Beeobhfijc67/01/2025Covid-19 Vaccine ( season)2024 02/24/2024, 01/21/2023, 03/26/2022, Additional history existsInfluenza Vaccine (#1)/, 01/21/2023, 02/27/2022, Additional history existsUrine Albumin:Creatinine Ratio/01/2025, 10/11/2023, 07/27/2023, Additional history existsHemoglobin/Kfggofteye81/07/202605/10/2024, 08/16/2024, 05/22/2024, Additional history existsLDL Thmndbuzpyj47/07/202605/10/2024, 08/16/2024, 12/15/2022, Additional history existsDiabetic Foot Exam/, 11/04/20220857QsW3L52, 08/28/2024, 02/28/2024, Additional history existsSerum Viuhuvuteb09/05/202611/08/2024, 08/16/2024, 08/14/2024, Additional history ustutnVxtexwdvxlcUeofvnbhczuh18/26/2024, 03/22/2017Colorectal Cancer ScreeningDiscontinuedMammogram HxnmqzhihHditpdbstzpe24/10/2025, 10/19/2024, 10/18/2024, Additional history existsCT ColonographyDiscontinuedCologuard (FIT-DNA)DiscontinuedFecal Occult BloodDiscontinuedSigmoidoscopyDiscontinued Goals GoalPatient Goal TypeAssociated ProblemsRecent ProgressPatient-Stated?Author Blood Pressure < 130/80 Blood Tugwhnse976/80(02/28/2025 12:46 PM EST)Afshan Beth MD Medical Devices ImplantedTypeAreaManufacturerDevice IdentifierShelf Expiration DateModel / Serial / LotGraft [place] 8mm Thin Wall Heparin Propaten Ptfe 80cm 70cm Vascular Removable - [id number] Implanted:Qty[facility]raft[facility]: Artery - FemoralW L GORE & ASSOC03/06/[id number] / [id number] / Icd-Iylm6pp [place] Xt Hf Quad Wastewater Plant Civil Engineer-D [id number] Implanted:06/30/2023 (Quantity not on file)ICDMEDTRONIC TYPPLTK3US [place] XT HF Quad CSW-D MRI / [id number] / [id number] Capsurefix Novus Mri PjnapqLeadMEDTRONIC [id number] CAPSUREFIX NOVUS MRI / [id number] / [id number] Sprint Quattro Secure S TdlLeadMEDTRONIC [id number] SPRINT QUATTRO SECURE S / TDL / [id number] Capsurefix Novus [id number] Implanted:06/30/2023 (Quantity not on file)LeadMEDTRONIC [id number] CAPSUREFIX NOVUS / [id number] / [id number] Attain Stability Quad Mri Surescan [id number] Implanted:06/30/2023 (Quantity not on file)LeadMEDTRONIC VWV5466 ATTAIN STABILITY QUAD MRI SURESCAN / [id number] / [id number] Sprint Quattro Secure S [id number] Implanted:06/30/2023 (Quantity not on file)LeadMEDTRONIC [id number] SPRINT QUATTRO SECURE S / [id number] / Procedures Procedure NamePriorityDate/TimeAssociated DiagnosisCommentsHEMOGLOBIN A1C (POC) Nmltbfm7002/28/2025 12:51 PM EST INTERROGATION EVAL REMOTE </90 D 1/2/CHROME POLISHER LD CAKZbkyauu83/17/2025 5:17 PM EST MAGNESIUM NPGEpgtmon48/05/2025 12:13 PM EST Chronic systolic congestive heart failure (HCC) COMPREHENSIVE METABOLIC MDOANQjpxayw71/05/2025 12:13 PM EST Chronic systolic congestive heart failure (HCC) NT PRO EFRXbgwbam17/05/2025 12:13 PM EST Chronic systolic heart failure (HCC) CBC + JBELAkgjdrq94/07/2025 10:31 AM EDT Stage 3b chronic kidney disease (HCC) Vitamin D deficiency LIPID PANEL, QJAKZCANJFNktpvdq65/07/2025 10:31 AM EDT Coronary artery disease involving ugashik coronary artery of ugashik heart without angina pectoris ALBUMIN/CREATININE RATIO, SAUCJMfehjwm27/16/2024 12:01 PM EDT Type 2 diabetes mellitus with other circulatory complication, with long-term current use of insulin(HCC) from Last 3 Months or Most Recently Relevant to Health Maintenance Results * HEMOGLOBIN A1C (POC) (02/28/2025 12:51 PM EST)ComponentValueRef RangeTest MethodAnalysis TimePerformed AtPathologist SignatureHemoglobin A1C (POCT)5.6 4.3 - 5.6 %[facility]Comment: Location:[facility], [address] [place] [address], [facility] Point of care (POC) Hemoglobin A1c (HGBA1C) testing is intended to assess glucose control and provide a management tool for patients known to have diabetes and their healthcare providers. ??Target HGBA1C levels may depend on specific clinical circumstances. ??POC HGBA1C is not intended for use as a diagnostic or screening test; laboratory-based testing should be used for diagnostic purposes. ??The following information is supplemental and may not be applicable to specific diabetes management situations: ??The POC device neonatal specialist provides a normal range of 4.2% to 6.5% for the HGBA1C POC test. However, the [place] [employer] ??guidelines indicate that patients with HGBA1C in the range of 5.7% to 6.4% are at increased risk for development of diabetes and that intervention by lifestyle modification may be beneficial. ??A HGBA1C level greater than or equal to 6.5% is considered diagnostic of diabetes, pending confirmatory testing. ??Use of HGBA1C testing to evaluate glucose control may not be appropriate for patients with hemoglobin variants or other conditions (e.g. anemia) that alter red blood cell lifespan. Specimen (Source)Anatomical Location / LateralityCollection Method / Volume Collection TimeReceived TimeBLOOD SPECIMEN / Pofmskl5902/28/2025 12:51 PM EST Narrative Authorizing ProviderResult TypeResult StatusVanjoseline Christian RESEARCH SPEC.[facility] TESTING Final ResultPerforming OrganizationAddressCity/State/ZIP CodePhone Number [facility] [address] [place], [place] * CARDIAC IMPLANTABLE DEVICE CHECK REMOTE (02/26/2025 5:17 PM EST)ComponentValue Ref RangeTest MethodAnalysis TimePerformed AtPathologist SignatureDate Time Interrogation [id number] CARDIACType Interrogation Session RemoteMURJ CARDIACImplantable Pulse Generator ManufacturerMedtronicMURJ CARDIACImplantable Pulse Generator TypeCardiac Resynchronization Therapy - DefibrillatorMURJ CARDIACImplantable Pulse Generator UqpptQKSR2UQPYLQ CARDIAC Implantable Pulse Generator Serial [id number] CARDIACImplantable Pulse Generator Implant [id number] CARDIACBattery Remaining Longevity 111.0MURJ CARDIACBattery Voltage3.010MURJ CARDIACBattery CHIP CRUSHER OPERATOR Trigger2.800MURJ CARDIACCapacitor Charge Time3.800MURJ CARDIACAtrial Tachy Statistic AT/AF Horace Percent0.00MURJ CARDIACLead Channel Sensing Intrinsic Amplitude3.000 MURJ CARDIACLead Channel Setting Sensing Sensitivity0.30MURJ CARDIACLead Channel Impedance Syoom498QFVF CARDIACLead Channel Pacing Threshold Amplitude 1.250MURJ CARDIACLead Channel Pacing Threshold Pulse Width0.4MURJ CARDIACLead Channel Measurements Date and Teud5270-09-56UKCN CARDIACLead Channel Setting Pacing Amplitude2.000MURJ CARDIACLead Channel Setting Pacing Pulse Width0.4 MURJ CARDIACLead Channel Sensing Intrinsic Xdjbngfny92.600MURJ CARDIACLead Channel Setting Sensing Sensitivity0.30MURJ CARDIACLead Channel Impedance Phxwe176XXQZ CARDIACLead Channel Pacing Threshold Amplitude0.750MURJ CARDIAC Lead Channel Pacing Threshold Pulse Width0.4MURJ CARDIACLead Channel Measurements Date and Oukk7292-97-07JAHN CARDIACLead Channel Setting Pacing Amplitude2.000MURJ CARDIACLead Channel Setting Pacing Pulse Width0.4MURJ CARDIACLead Channel Impedance Iulzw323DFRJ CARDIACLead Channel Pacing Threshold Amplitude0.625MURJ CARDIACLead Channel Pacing Threshold Pulse Width 0.4MURJ CARDIACLead Channel Measurements Date and Abuq1121-89-56WBZY CARDIAC Lead Channel Setting Pacing Amplitude1.250MURJ CARDIACLead Channel Setting Pacing Pulse Width0.4MURJ CARDIACBrady Setting Mode (NBG Code)DDDMURJ CARDIAC Ventricular chambers paced during CSW pacing.LVOnlyMURJ CARDIACBrady Setting Lower Rate Jmrih08YDSB CARDIACBrady Setting AT Mode Switch Vkzx592UXIR CARDIAC Ron Setting Maximum Tracking Kksm239IMHU CARDIACBrady Setting Maximum Sensor Eoua329ZEQW CARDIACBrady Setting PAV Utalb254HJPZ CARDIACBrady Setting ASHLEY Lrhxn258LTJK CARDIACCRT LV-RV Tsdsh3XYEB CARDIACTherapy Statistic Recent Shocks Cdbreckcg1YZWL CARDIACTherapy Statistic Recent Shocks Aboiidr1MDPR CARDIACTherapy Statistic Recent ATP Jrshxqmkz7AZPT CARDIACRV HV Wdtubthqq74 MURJ CARDIACLead Channel Setting Sensing PolarityBipolarMURJ CARDIACLead Channel Setting Sensing PolarityBipolarMURJ CARDIACLead Channel Setting Pacing PolarityBipolarMURJ CARDIACLead Channel Setting Pacing PolarityBipolarMURJ CARDIACLead Channel Setting Pacing PolarityBipolarMURJ CARDIACLead Channel Pacing Threshold PolarityBipolarMURJ CARDIACLead Channel Pacing Threshold PolarityBipolarMURJ CARDIACLead Channel Pacing Threshold PolarityBipolarMURJ CARDIACZone Setting Type CategoryAT/AFMURJ CARDIACRate 1171MURJ CARDIAC TherapiesAll Rx OffMURJ CARDIACZone Setting StatusMonitorMURJ CARDIACZone ID2 MURJ CARDIACZone Setting Type CategoryVFMURJ CARDIACRate 1188MURJ CARDIAC TherapiesATP During Charging, 40.0Al2BEGE CARDIACZone Setting StatusOnMURJ CARDIACZone NP0KXOX CARDIACZone Setting Type CategoryVTMURJ CARDIACZone Setting StatusOffMURJ CARDIACZone KB4NQNM CARDIACZone Setting Type CategoryVT MURJ CARDIACZone Setting StatusOffMURJ CARDIACZone GF4JFVU CARDIACZone Setting Type CategoryVTMURJ CARDIACRate 1150MURJ CARDIACRate 2167MURJ CARDIACZone Setting StatusENABLEDMURJ CARDIACZone DS2HQVZ CARDIACImplantable Lead ManufacturerMedtronicMURJ CARDIACImplantable Lead Durti3311 CapsureFix Novus MRIMURJ CARDIACImplantable Lead LocationRight AtriumMURJ CARDIACImplantable Lead Serial NumberPJNAPQMURJ CARDIACImplantable Lead ManufacturerMedtronicMURJ CARDIACImplantable Lead Hrffv0461 CapSureFix NovusMURJ CARDIACImplantable Lead LocationRight AtriumMURJ CARDIACImplantable Lead Connection StatusConnected MURJ CARDIACImplantable Lead Serial KujwdaLRPYEA812ZLWC CARDIACImplantable Lead Implant [id number] CARDIACImplantable Lead ManufacturerMedtronic MURJ CARDIACImplantable Lead Srnro7227 Attain Stability Quad MRI SureScanMURJ CARDIACImplantable Lead LocationLeft VentricleMURJ CARDIACImplantable Lead Connection StatusConnectedMURJ CARDIACImplantable Lead Serial [id number] MURJ CARDIACImplantable Lead Implant [id number] CARDIACImplantable Lead ManufacturerMedtronicMURJ CARDIACImplantable Lead Aftcz0619K Sprint Quattro Secure SMURJ CARDIACImplantable Lead LocationRight VentricleMURJ CARDIAC Implantable Lead Serial NumberTDLMURJ CARDIACImplantable Lead Office Machinery Or Equipment Installer MedtronicMURJ CARDIACImplantable Lead [id number] Sprint Quattro Secure SMURJ CARDIACImplantable Lead LocationRight VentricleMURJ CARDIACImplantable Lead Connection StatusConnectedMURJ CARDIACImplantable Lead Serial [id number] MURJ CARDIACImplantable Lead Implant [id number] CARDIACSpecimen (Source) Anatomical Location / LateralityCollection Method / VolumeCollection Time Received Time02/26/2025 5:17 PM EST Narrative MURJ CARDIAC - 03/12/2025 11:04 AM EST Normal Remote: With Events CSW D * Normal Device Function * Events or Alerts: 1 NSVBT detection * Battery: , 9.25 yrs * Sensing, impedance and thresholds reviewed * Programmed parameters reviewed * Presenting rhythm ?? /LVP * Heart Rate Histograms reviewed AP ??0.2% ADAPTIVE CSW: TOTAL UNIVERSITY PROFESSOR ??98.5% Of which, BIVP ??1% LVP 99 % Non-sustained Ventricular Tachycardia * Stored EGMs are consistent with or suggestive of Non-sustained VT * Total episodes: 1 NOTE TO PROVIDERS: Cardiac Implanted Devices Flowsheets contain detailed Programming and Evaluation data. Full Docket/PDF found below under Scanned Documents . Procedure Note Afshan Redman MD - 03/12/2025 Normal Remote: With Events CSW D * Normal Device Function * Events or Alerts: 1 NSVBT detection * Battery: , 9.25 yrs * Sensing, impedance and thresholds reviewed * Programmed parameters reviewed * Presenting rhythm /LVP * Heart Rate Histograms reviewed AP 0.2% ADAPTIVE CSW: TOTAL UNIVERSITY PROFESSOR 98.5% Of which, BIVP 1% LVP 99 % Non-sustained Ventricular Tachycardia * Stored EGMs are consistent with or suggestive of Non-sustained VT * Total episodes: 1 NOTE TO PROVIDERS: Cardiac Implanted Devices Flowsheets contain detailed Programming and Evaluation data. Full Docket/PDF found below under Scanned Documents . Authorizing ProviderResult TypeResult StatusChhimanshu Cormier MD CARDIOLOGYFinal ResultPerforming OrganizationAddressCity/State/ZIP CodePhone Number MURJ CARDIAC * (ABNORMAL) MAGNESIUM (02/14/2025 12:13 PM EST)ComponentValueRef RangeTest MethodAnalysis TimePerformed AtPathologist SignatureMagnesium2.7(H)1.7 - 2.3 mg/dL02/14/2025 1:29 PM ESTNORTHCOAST VON [facility]IGTLAND[facility] LABSpecimen (Source)Anatomical Location / LateralityCollection Method / VolumeCollection TimeReceived TimeBloodBLOOD SPECIMEN / UnknownVenipuncture / Sxzjoup4702/14/2025 12:13 PM EST02/14/2025 12:13 PM EST Narrative Authorizing ProviderResult TypeResult StatusFanny De León MDLABORATORYFinal Result Performing OrganizationAddressCity/State/ZIP CodePhone Number [facility] [address] [place] [address] * (ABNORMAL) NT PRO BNP (02/14/2025 12:13 PM EST)ComponentValueRef RangeTest MethodAnalysis TimePerformed AtPathologist SignatureNT Pro BNP2,993(H)<450 pg/mL02/15/2025 3:29 PM ESTLIM[facility] MEMORIAL [facility] LABSpecimen (Source) Anatomical Location / LateralityCollection Method / VolumeCollection Time Received TimeBloodBLOOD SPECIMEN / UnknownVenipuncture / Dlhmxni9302/14/2025 12:13 PM EST02/14/2025 12:13 PM EST Narrative Authorizing ProviderResult TypeResult StatusFanny De León MDLABORATORYFinal Result Performing OrganizationAddressCity/State/ZIP CodePhone Number [facility] [address] [place] [address], * (ABNORMAL) COMPREHENSIVE METABOLIC PANEL (02/14/2025 12:13 PM EST)Component ValueRef RangeTest MethodAnalysis TimePerformed AtPathologist Signature Protein, Total6.86.3 - 8.0 g/dL02/14/2025 1:37 PM ESTNORTHCST VON VOIGTLAND[facility] LABAlbumin4.23.9 - 4.9 g/dL02/14/2025 1:37 PM ESTNORTHAVENWYCK HOSPITAL LABCalcium, Total9.18.5 - 10.2 mg/dL02/14/2025 1:37 PM ESTNORTHAVENWYCK HOSPITAL LABBilirubin, Total0.60.2 - 1.3 mg/dL 02/14/2025 1:37 PM ESTNORTHAVENWYCK HOSPITAL LABAlkaline Jrmecowuvdk0125 - 123 U/L104/16/2024 1:37 PM ESTNORTHAVENWYCK HOSPITAL FBSORN6720 - 35 U/L104/16/2024 1:37 PM [facility] YPDCWU446 - 38 U/L104/16/2024 1:37 PM ESTDA[facility] MCRTjbxsty027(H)74 - 99 mg/dL02/14/2025 1:37 PM ESTRTHAVENWYCK HOSPITAL LABComment: The [place] [place] [employer] (ADA) provides guidance for cutoff values for fasting glucose andrandom glucose. The ADA defines fasting as no [...] Standards of Medical Care in Diabetes 2016, [place] [employer]. Diabetes Care. 2016.39(Suppl 1). BUN37(H)7 - 21 mg/dL02/14/2025 1:37 PM [facility] Creatinine1.75(H)0.58 - 0.96 mg/dL02/14/2025 1:37 PM [facility] [id number] - 144 mmol/L104/16/2024 1:37 PM [facility] LABPotassium5.6(H)3.7 - 5.1 mmol/L104/16/2024 1:37 PM EST [facility] LABComment:RVBSEYQIRZnjljiij92700 - 107 mmol/L 02/14/2025 1:37 PM [facility] [id number] - 30 mmol/L 02/14/2025 1:37 PM [facility] LABAnion Enk153 - 15 mmol/L104/16/2024 1:37 PM [facility] LABEstimated Glomerular Filtration Rate30(L)>=60 mL/min/1.73m 02/14/2025 1:37 PM [facility] LABComment:Estimated Glomerular Filtration Rate (eGFR) is calculated using the 2020 CKD-EPI creatinine equation. This equation utilizes serum creatinine, sex, and age as parameters. The creatinine assay has traceable calibration to isotope dilution- mass spectrometry. Refer to KDIGO guidelines for clinical interpretation. In patients with unstable renal function, e.g. those with acute kidney injury, the eGFRmay not accurately reflect actual GFR.Specimen (Source)Anatomical Location / LateralityCollection Method / VolumeCollection TimeReceived TimeBloodBLOOD SPECIMEN / UnknownVenipuncture / Ylyukdv8302/14/2025 12:13 PM EST02/14/2025 12:13 PM EST Narrative Authorizing ProviderResult TypeResult StatusFanny De León MDLABORATORYFinal Result Performing OrganizationAddressCity/State/ZIP CodePhone Number [facility] [address] [place] [address] * LIPID PANEL, NONFASTING (08/16/2024 10:31 AM EDT)ComponentValueRef RangeTest MethodAnalysis TimePerformed AtPathologist SignatureTotal Cholesterol, Afelynzlln745<200 mg/dL08/17/2024 1:31 AM [facility] Comment: <200 mg/dL, Desirable 200-239 mg/dL, Borderline high >239 mg/dL, High Triglycerides, Epnatzhbvp21<150 mg/dL08/17/2024 1:31 AM [facility] LABComment: <150 mg/dL, Normal 150-199 mg/dL, Borderline high 200-499 mg/dL, High >499 mg/dL, Very high HDL Cholesterol, Dkbwcgsbns28>39 mg/dL08/17/2024 1:31 AM [facility] LABComment: 40-59 mg/dL, Acceptable >59 mg/dL, High: Negative risk factor for coronary heart disease <40 mg/dL, Low: Positive risk factor for coronary heart disease LDL Cholesterol Calculated, Wrvopelsoe55<100 mg/dL08/17/2024 1:31 AM EDT [facility] LABComment: <100 mg/dL, Optimal 100-129 mg/dL, Near optimal/above optimal 130-159 mg/dL, Borderline high 160-189 mg/dL, High >189 mg/dL, Very high Secondary prevention optimal LDL Cholesterol levels are recommended to be <70 mg/dL LDL cholesterol is calculated using the Nur-NIH equation. Non HDL Cholesterol, Ymhrbyrtvp17<130 mg/dL08/17/2024 1:31 AM [facility] LABComment: <130 mg/dL, Optimal 130-159 mg/dL, Near optimal/above optimal 160-189 mg/dL, Borderline high 190-219 mg/dL, High >219 mg/dL, Very high Secondary prevention optimal non HDL Cholesterol levels are recommended to be <100 mg/dL VLDL Cholesterol, Xctmthcqcj82<30 mg/dL08/17/2024 1:31 AM [facility] LABTotal Chol/HDL Ratio, Nonfasting2.09<5.10 mg/dL08/17/2024 1:31 AM [facility] LABLDL/HDL Ratio, Nonfasting0.78<2.54 mg/dL 08/17/2024 1:31 AM [facility] LABComment: Reference: 1. National Cholesterol Education Program ATP III Guideline At-A-Glance Quick Desk Reference: National Heart, Lung, and Blood [place]. National Institutes of Health. 2001: NIH Publication No. 01-3305. 2. An International Atherosclerosis Society position paper: global recommendations for the management of dyslipidemia: executive summary, Atherosclerosis. 2014: 232(2):410-413. Specimen (Source)Anatomical Location / LateralityCollection Method / Volume Collection TimeReceived TimeBloodBLOOD SPECIMEN / UnknownVenipuncture / Unknown 08/16/2024 10:31 AM EDT08/16/2024 10:32 AM EDT Narrative Authorizing ProviderResult TypeResult StatusFanny De León MDLABORATORYFinal Result Performing OrganizationAddressCity/State/ZIP CodePhone Number [facility] [address] * COMPLETE BLOOD COUNT AND DIFFERENTIAL (08/16/2024 10:31 AM EDT)ComponentValue Ref RangeTest MethodAnalysis TimePerformed AtPathologist SignatureWBC8.873.70 - 11.00 k/uL08/16/2024 6:11 PM [facility] LABRBC4.133.90 - 5.20 m/uL08/16/2024 6:11 PM [facility] LABHemoglobin 12.411.5 - 15.5 g/dL08/16/2024 6:11 PM [facility] Kktfvzuwwg08.136.0 - 46.0 %08/16/2024 6:11 PM [facility] JYNNJG85.780.0 - 100.0 fL08/16/2024 6:11 PM [facility] YAAPIJ37.026.0 - 34.0 pg08/16/2024 6:11 PM [facility] MCHC31.730.5 - 36.0 g/dL08/16/2024 6:11 PM [facility] RDW-CV14.611.5 - 15.0 %08/16/2024 6:[facility]let [id number] - 400 k/uL08/16/2024 6:[facility] LABComment:No clot detected.MPV10.79.0 - 12.7 fL08/16/2024 6:11 PM EDT [facility] LABNeutrophils %65.0%08/16/2024 6:11 PM EDT [facility] LABAbs Neut5.771.45 - 7.50 k/uL08/16/2024 6:[facility] LABLymphocytes %24.5%08/16/2024 6:11 PM EDT [facility] LABAbs Lymph2.171.00 - 4.00 k/uL08/16/2024 6:[facility] LABMonocytes %8.1%08/16/2024 6:11 PM EDT [facility] LABAbs Mono0.72<0.87 k/uL08/16/2024 6:11 PM EDT [facility] LABEosinophils %1.4%08/16/2024 6:11 PM EDT [facility] LABAbs Eosin0.12<0.46 k/uL08/16/2024 6:11 PM EDT [facility] LABBasophils %0.8%08/16/2024 6:[facility]Abs Baso0.07<0.11 k/uL08/16/2024 6:11 [facility] LABImmature Granulocytes %0.2%08/16/2024 6:11 PM EDT [facility] LABAbs Immature Gran<0.03<0.10 k/uL08/16/2024 6:11 [facility] LABNRBC0.0/100 WBC08/16/2024 6:[facility] LABAbsolute nRBC<0.01<0.01 k/uL08/16/2024 6:11 PM [facility] LABDiff MzmiPzmc71/07/2025 6:11 PM EDT [facility] LABSpecimen (Source)Anatomical Location / LateralityCollection Method / VolumeCollection TimeReceived TimeBloodBLOOD SPECIMEN / UnknownVenipuncture / Ntveaik8208/16/2024 10:31 AM EDT08/16/2024 10:32 AM EDT Narrative Authorizing ProviderResult TypeResult StatusArpita Blackwood MDLABORATORY Final ResultPerforming OrganizationAddressCity/State/ZIP CodePhone Number [facility] [address] [place] [address], [place] * (ABNORMAL) ALBUMIN/CREAT RATIO RND UR (07/27/2023 12:01 PM EDT)ComponentValue Ref RangeTest MethodAnalysis TimePerformed AtPathologist SignatureCreatinine, Ur Random (UCRR)101.720.0 - 300.0 mg/dL07/28/2023 2:40 AM [facility] LABAlbumin, Urine Ptujrk43.1mg/L07/28/2023 2:40 AM [facility] LABAlbumin/Creat Ratio90(H)<30 mg/g007/28/2023 2:40 AM EDT [facility] LABComment: Adult Male and Female Nephrotic Criteria: <30 mg/g is considered normal to mildly increased 30-300 mg/g is considered moderately increased >300 mg/g is considered severely increased KDIGO. (2013). KDIGO 2012 Clinical Practice Guideline for the Evaluation and Management of Chronic Kidney Disease. Official Journal of the International Society of Nephrology, 3(1), 1-150. Specimen (Source)Anatomical Location / LateralityCollection Method / Volume Collection TimeReceived TimeUrine RandomURINE SPECIMEN / UnknownNon Blood / Zgpuuvc8607/27/2023 12:01 PM EDT07/27/2023 12:01 PM EDT Narrative Authorizing ProviderResult TypeResult StatusMarce Gonzales APRN.CNPLABORATORY Final ResultPerforming OrganizationAddressCity/State/ZIP CodePhone Number [facility] [address] [facility] [place] [address], [place] from Last 3 Months or Most Recently Relevant to Health Maintenance Insurance Advance Directives * Full Code (Latest Code Status on File) Date ActivatedDate TyunkgtqpjxWwbjutfz32/7/2023 10:46 PM02/17/2023 2:42 PM QuestionAnswerCommentsFull Code Order Discussed With:* Patient Care Teams Team MemberRelationshipSpecialtyStart DateEnd Date Aure Little, DIRECTOR CLINICAL INFORMATION [place] [address] PCP - GeneralFamily Medicine01/08/20
== END 2025-04-02 17:00 | disposition home or self-care (01) ==
PROVIDERS: Emergency Provider Emergency Medicine; PCP Nurse Practitioner
DX: S70.01XA Contusion of right hip, initial encounter (principal); W01.0XXA Fall on same level from slipping, tripping and stumbling without subsequent striking against object, initial encounter; Z79.02 Long term (current) use of antithrombotics/antiplatelets; Z87.891 Personal history of nicotine dependence; Y92.480 Sidewalk as the place of occurrence of the external cause; M25.551 Pain in right hip
CPT/HCPCS: 73502; 99283